=== PATIENT | male | born 1935 | race African-American/Black ===

== ENCOUNTER 2018-11-22 10:40 | Inpatient (IN) | payer MEDICARE ==
[~2018-11-22] VITALS: Ht 198.1 cm; Wt 79.8 kg
[~2018-11-22 10:40] MED LIST: GLUCOPHAGE1000 MG ORAL; LISINOPRIL20 MG ORAL; UNOBMED
[2018-11-22] MEDS ORDERED: Pantoprazole Inj IV ONE (10:45)
--- NOTE | 2018-11-22 11:05 | NUR ---
ED Nurse Note: pt was brought in by ambulance from home with c/o blood in the stool for a couple of days. pt's daughter called 911 to report for the symptom. pt is aox3, pt is complaining blood in the urine and denies pain. pt stated that he feels weak and was having a trouble standing by himself. pt noted to be wearing diaper and has scattered wound on the bilateral lower extremities. pt was hooked on the monitor with vital signs with in normal limit. pt noted to have pacemaker on the left chest. seen by stefani. will continue to monitor.
[2018-11-22 11:20] LABS: BASOPHILS % (AUTO) 1.1 % (0.0-2.0); HEMOGLOBIN 11.8 G/DL (14.2-18.0); LYMPHOCYTES % (AUTO) 10.2 % (20.0-45.0); MEAN CORPUSCULAR VOLUME 90 FL (80-99); MONOCYTES % (AUTO) 8.7 % (1.0-10.0); PLATELET COUNT 175 K/UL (150-450); RED BLOOD COUNT 3.79 M/UL (4.70-6.10); RED CELL DISTRIBUTION WIDTH 11.6 % (11.6-14.8); WHITE BLOOD COUNT 9.3 K/UL (4.8-10.8)
[2018-11-22 11:23] LABS: ANION GAP 8 mmol/L (5-15); BLOOD UREA NITROGEN 14 mg/dL (7-18); CALCIUM 9.3 MG/DL (8.5-10.1); CARBON DIOXIDE 30 MMOL/L (21-32); CHLORIDE 107 MMOL/L (98-107); POTASSIUM 3.2 MMOL/L (3.5-5.1); SODIUM 145 MMOL/L (136-145)
--- NOTE | 2018-11-22 11:25 | NUR ---
ED Nurse Note: pt went to ct with tech via [facility]
[2018-11-22 11:27] LABS: ALANINE AMINOTRANSFERASE 42 U/L (12-78); ALBUMIN 3.2 G/DL (3.4-5.0); ALBUMIN/GLOBULIN RATIO 0.8 (1.0-2.7); ALKALINE PHOSPHATASE 70 U/L (46-116); ASPARTATE AMINO TRANSFERASE 38 U/L (15-37); INR 1.1 (0.9-1.1)
[2018-11-22 11:28] LABS: APPEARANCE,URINE SLIGHTLY CLOUDY; BILIRUBIN, URINE NEGATIVE (NEGATIVE); GLUCOSE, URINE (UA) NEGATIVE (NEGATIVE); KETONES,URINE 3+ (NEGATIVE); LEUKOCYTE ESTERASE ,URINE 3+ (NEGATIVE); NITRITE,URINE POSITIVE (NEGATIVE); PH,URINE 6 (4.5-8.0); PROTEIN,URINE 3+ (NEGATIVE); UROBILINOGEN,URINE 4 MG/DL (0.0-1.0)
[2018-11-22 11:33] VITALS: BP 126/76
[2018-11-22 11:40] LABS: COLOR,URINE BROWN
--- NOTE | 2018-11-22 11:46 | NUR ---
ED Nurse Note: pt went back from ct. [employer]fu[employer] technology manager on bedside.
[2018-11-22] MEDS ORDERED: cefTRIAXone 1 GM in NS 55 ML IVPB ONE (12:00)
--- NOTE | 2018-11-22 12:14 | NUR ---
ED Nurse Note: pt sleeping in room with even regular resp. pt with abx given as ordered after urine resulted. pt with swabs obtained
[2018-11-22 12:19] VITALS: BP 159/68
--- NOTE | 2018-11-22 12:22 | Emergency Room Report ---
History of Present Illness General Chief Complaint: Gastrointestinal Bleed Source: Patient, Family Member, Medical Record, EMS Present Illness HPI Patient presents emergency department today complaining of blood in the diaper. Patient is a poor historian and was brought here by the paramedics. Apparently patient's granddaughter called for help and called the paramedics. Patient was also noted to be slightly altered. I discussed this case with patient's granddaughter who informed me the patient's primary care physician is Dr. Jaziel Lowe. Patient is uncertain if he is getting exactly all the medications that he needs to get. No other complaints are noted other than generalized weakness and confusion as well as possible blood in the urine or rectum. Symptoms noted to be moderate to severe. No other modifying factors. No other associated signs and symptoms. No other complaints were noted. Allergies: Coded Allergies: No Known Allergies (Unverified , 04/09/16) Patient History Past Medical History: DM, dementia Past Surgical History: pacemaker Social History: Denies: smoking, alcohol use, drug use Reviewed Nursing Documentation: PMH: Agreed; PSxH: Agreed Nursing Documentation-PMH Past Medical History: No History, Except For Hx Cardiac Problems: No Hx Pacemaker: Yes Hx Diabetes: Yes Hx Cancer: No Hx Gastrointestinal Problems: No Hx Neurological Problems: Yes - Difficult to arouse 04/07/16 Hx Seizures: Yes Review of Systems All Other Systems: negative except mentioned in HPI Physical Exam Vital Signs Date Time Temp Pulse Resp B/P (MAP) Pulse Ox O2 Delivery O2 Flow Rate FiO2 11/22/18 10:39 98.1 92 16 126/76 98 Room Air Sp02 EP Interpretation: reviewed, normal General Appearance: alert, mild distress, thin, Chronically Ill Head: normocephalic, atraumatic Eyes: bilateral eye normal inspection ENT: normal ENT inspection, hearing grossly normal, normal voice, dry mucus membranes Neck: normal inspection, full range of motion, supple, no bony tend Respiratory: normal inspection, lungs clear, normal breath sounds, no respiratory distress, no retraction, no wheezing Cardiovascular #1: regular rate, rhythm, no edema Gastrointestinal: normal inspection, normal bowel sounds, non tender, soft, no guarding, no hernia Rectal: normal exam, normal rectal tone, heme negative stool Genitourinary: no CVA tenderness Musculoskeletal: normal inspection, back normal, normal range of motion Neurologic: normal inspection, alert, responsive, speech normal Psychiatric: depressed affect, other - Confused Skin: normal inspection, normal color, no rash Medical Decision Making Diagnostic Impression: Primary Impression: UTI (urinary tract infection) Additional Impression: Altered mental status ER Course Patient presents emergency department today with acute altered mental status. Differential diagnoses include urinary tract infection, sepsis, GI bleeding, CVA , acute coronary syndrome, dehydration just to name a few.Given the severity of the patient's presentation I felt this is a highly complex patient. This patient required extensive workup. Patient's laboratory workup shows evidence UTI. Because patient's altered mental status head CT and abdominal CT scan was ordered. Patient's rectal exam showed brown stool no evidence of active bleeding. Patient however was slightly anemic. Even patient's worsening altered mental status felt the patient require admission to the hospital. Case was discussed with Dr. Jaziel Lowe and Dr. Hinkle. Labs Test 11/22/18 10:50 11/22/18 11:15 White Blood Count 9.3 K/UL (4.8-10.8) Red Blood Count 3.79 M/UL (4.70-6.10) Hemoglobin 11.8 G/DL (14.2-18.0) Hematocrit 34.0 % (42.0-52.0) Mean Corpuscular Volume 90 FL (80-99) Mean Corpuscular Hemoglobin 31.2 PG (27.0-31.0) Mean Corpuscular Hemoglobin Concent 34.7 G/DL (32.0-36.0) Red Cell Distribution Width 11.6 % (11.6-14.8) Platelet Count 175 K/UL (150-450) Mean Platelet Volume 6.0 FL (6.5-10.1) Neutrophils (%) (Auto) 80.0 % (45.0-75.0) Lymphocytes (%) (Auto) 10.2 % (20.0-45.0) Monocytes (%) (Auto) 8.7 % (1.0-10.0) Eosinophils (%) (Auto) 0.0 % (0.0-3.0) Basophils (%) (Auto) 1.1 % (0.0-2.0) Prothrombin Time 12.0 SEC (9.30-11.50) Prothromb Time International Ratio 1.1 (0.9-1.1) Activated Partial Thromboplast Time 32 SEC (23-33) Sodium Level 145 MMOL/L (136-145) Potassium Level 3.2 MMOL/L (3.5-5.1) Chloride Level 107 MMOL/L (98-107) Carbon Dioxide Level 30 MMOL/L (21-32) Anion Gap 8 mmol/L (5-15) Blood Urea Nitrogen 14 mg/dL (7-18) Creatinine 1.0 MG/DL (0.55-1.30) Estimat Glomerular Filtration Rate mL/min (>60) Glucose Level 63 MG/DL (74-106) Calcium Level 9.3 MG/DL (8.5-10.1) Total Bilirubin 1.0 MG/DL (0.2-1.0) Aspartate Amino Transf (AST/SGOT) 38 U/L (15-37) Alanine Aminotransferase (ALT/SGPT) 42 U/L (12-78) Alkaline Phosphatase 70 U/L (46-116) Troponin I 0.041 ng/mL (0.000-0.056) Total Protein 7.1 G/DL (6.4-8.2) Albumin 3.2 G/DL (3.4-5.0) Globulin 3.9 g/dL Albumin/Globulin Ratio 0.8 (1.0-2.7) Lipase 53 U/L (73-393) Urine Color Brown Urine Appearance Slightly cloudy Urine pH 6 (4.5-8.0) Urine Specific [place] 1.010 (1.005-1.035) Urine Protein 3+ (NEGATIVE) Urine Glucose (UA) Negative (NEGATIVE) Urine Ketones 3+ (NEGATIVE) Urine Blood 5+ (NEGATIVE) Urine Nitrite Positive (NEGATIVE) Urine Bilirubin Negative (NEGATIVE) Urine Urobilinogen 4 MG/DL (0.0-1.0) Urine Leukocyte Esterase 3+ (NEGATIVE) Urine RBC Tntc /HPF (0 - 0) Urine WBC 10-15 /HPF (0 - 0) Urine Squamous Epithelial Cells Occasional /LPF Urine Bacteria Moderate /HPF (NONE) EKG Diagnostic Results Rate: other - Paced rhythm, no PVCs, ventricular rate 62 Rhythm Strip Diag. Results EP Interpretation: yes Rate: paced rhyt Rhythm: no PVC's, no ectopy, other Chest X-Ray Diagnostic Results Chest X-Ray Diagnostic Results : Chest X-Ray Ordered: Yes # of Views/Limited/Complete: 1 View Indication: Other - Altered mental status EP Interpretation: Yes Interpretation: no consolidation, no effusion, no pneumothorax, no acute cardiopulmonary disease, other - Pacemaker on the left Impression: No acute disease Electronically Signed by: Electronically signed by Aguilar Jimenez MD Last Vital Signs Date Time Temp Pulse Resp B/P (MAP) Pulse Ox O2 Delivery O2 Flow Rate FiO2 11/22/18 11:33 98.1 92 16 126/76 98 Room Air Status: improved Disposition: ADMITTED INPATIENT Condition: Serious Referrals: NOT CHOSEN IPA/,REFERRING (PCP) Aguilar Jimenez MD Nov 22, 2018 12:22
--- NOTE | 2018-11-22 12:29 | Diagnostic Imaging Report ---
Indications: Altered mental status Technique: Spiral acquisitions obtained through the brain. Angled axial and coronal 5 x 5 mm slices were reconstructed. Total dose length product 1383.12 mGycm. CTDI vol(s) 70.38 mGy. Dose reduction achieved using automated exposure control Comparison: None. Findings: There is age-related enlargement of the ventricles and extra axial CSF spaces. There is uniform thickening of the falx and the tentorium. There is age-related enlargement of the ventricles and extra axial CSF spaces. No acute intracranial hemorrhage nor edema. No mass effect nor midline shift. There is age-related enlargement of the ventricles and extra axial CSF spaces. There is periventricular deep white matter low-attenuation, consistent with chronic ischemic change. There is old lacunar infarcts seen in the anterior limb of the left internal capsule. Visualized orbits and sinuses are unremarkable. The calvarium is intact. The mastoids are clear. Impression: Chronic and age-related changes is noted. 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
--- NOTE | 2018-11-22 12:40 | Diagnostic Imaging Report ---
Indication: Blood in stool for couple of days, pain, hematuria Technique: Spiral acquisitions obtained through the abdomen and pelvis. No oral contrast utilized, per emergency room physician request No IV contrast utilized, per emergency room physician request.. Multiplanar reconstructions were generated. Total dose length product 707.62 mGycm. CTDIvol(s) 13.21 mGy. Dose reduction achieved using automated exposure control Comparison: None Findings: Lack of enteric contrast limits assessment of the GI tract. No evidence of diverticulosis or diverticulitis. The appendix is not definitely visualized, but no findings to suggest acute appendicitis are evident. No definite small bowel distention. No free or loculated intraperitoneal gas or fluid. There is considerable interposition of large and small bowel anterior to the dome of the liver and under the right hemidiaphragm. The distal esophagus, stomach, duodenum are unremarkable. Lack of IV contrast limits assessment of the solid organs. There is moderate left hydronephrosis. There is also left hydroureter. The hydroureter extends to the bladder an into the bladder wall. The bladder wall is thickening, asymmetrically so at the posterolateral aspect. No ureteral calculi demonstrated. No intrarenal calculi. No right hydronephrosis or hydroureter demonstrated. The gallbladder contains multiple gallstones. The liver is unremarkable. The pancreas is atrophic. No biliary ductal dilatation. The spleen, adrenals are unremarkable. No retroperitoneal mass or adenopathy. There are dense prostatic calcifications Included lung bases demonstrate posterior dependent atelectatic changes and equivocal slight interstitial congestion. There is a pacemaker present. The heart size is normal. The bones demonstrate a compression fracture deformity of the L1 vertebral body. There are degenerative spondylosis changes as well as multilevel kissing spinous processes. Impression: Limited assessment of the GI tract, due to lack of enteric contrast administration Moderate left hydronephrosis and hydroureter. Hydroureter extends to the bladder, where there is asymmetric posterolateral wall thickening raises concern for neoplasm. Further evaluation with cystoscopy should be considered. There is also generalized wall thickening, possibly on the basis of cystitis or chronic bladder outlet obstruction No definite findings to suggest etiology of stated clinical history of GI bleed Cholelithiasis Basilar pulmonary atelectasis and equivocal slight interstitial congestion L1 vertebral body compression fracture deformity, age indeterminate. Consider MRI for further evaluation if this is clinically relevant Incidental findings as noted, including degenerative spondylosis, pacemaker, prostatic calcifications, interposition of colon and small bowel between the liver and the diaphragm The CT scanner at [facility] is accredited by the [employer] and the scans are performed using protocols designed to limit radiation exposure to as low as reasonably achievable to attain images of sufficient resolution adequate for diagnostic evaluation.
--- NOTE | 2018-11-22 13:05 | NUR ---
ED Nurse Note: Pt was admitted to the hospital. report given to Josi weiner.
--- NOTE | 2018-11-22 13:21 | Consultation ---
History of Present Illness General Date patient seen: Nov 22, 2018 Chief Complaint: Gastrointestinal Bleed Present Illness HPI 83 year old male with hx of DM, Dementia, pacemaker presented to ER with CC of blood in the diaper. Patient was also noted to be slightly altered. No other complaints are noted other than generalized weakness and confusion as well as possible blood in the urine or rectum. Symptoms noted to be moderate to severe. Pt was found to be anemic and admitted for further management. Pt is awake and comfortable, knows his name. but doesn't know where he is and why is he here. Allergies: Coded Allergies: No Known Allergies (Unverified , 04/09/16) Medication History Scheduled Lisinopril (Lisinopril*), 20 MG ORAL DAILY Metformin Hcl (Glucophage), 1,000 MG ORAL EVERY 12 HOURS Miscellaneous Medications Unable to Obtain Medications (Unable To Obtain Meds), (Reported) Patient History Healthcare decision maker Resuscitation status Advanced Directive on File Past Medical/Surgical History Past Medical/Surgical History: (1) HTN (hypertension) (2) Diabetes mellitus (3) Alzheimer's dementia Review of Systems All Other Systems: negative except mentioned in HPI Physical Exam General Appearance: cachetic Lines, tubes and drains: peripheral, central line HEENT: normocephalic, atraumatic Neck: non-tender, normal alignment Respiratory/Chest: chest wall non-tender, lungs clear Breasts: no masses Cardiovascular/Chest: normal rate Abdomen: normal bowel sounds, no organomegaly Genitourinary/Rectal: normal genital exam Extremities: normal range of motion Last 24 Hour Vital Signs Date Time Temp Pulse Resp B/P (MAP) Pulse Ox O2 Delivery O2 Flow Rate FiO2 11/22/18 12:19 79 14 159/68 100 Room Air 11/22/18 11:33 98.1 92 16 126/76 98 Room Air 11/22/18 11:33 92 16 Room Air 11/22/18 10:39 98.1 92 16 126/76 98 Room Air Laboratory Tests Test 11/22/18 10:50 11/22/18 11:15 White Blood Count 9.3 K/UL (4.8-10.8) Red Blood Count 3.79 M/UL (4.70-6.10) L Hemoglobin 11.8 G/DL (14.2-18.0) L Hematocrit 34.0 % (42.0-52.0) L Mean Corpuscular Volume 90 FL (80-99) Mean Corpuscular Hemoglobin 31.2 PG (27.0-31.0) H Mean Corpuscular Hemoglobin Concent 34.7 G/DL (32.0-36.0) Red Cell Distribution Width 11.6 % (11.6-14.8) Platelet Count 175 K/UL (150-450) Mean Platelet Volume 6.0 FL (6.5-10.1) L Neutrophils (%) (Auto) 80.0 % (45.0-75.0) H Lymphocytes (%) (Auto) 10.2 % (20.0-45.0) L Monocytes (%) (Auto) 8.7 % (1.0-10.0) Eosinophils (%) (Auto) 0.0 % (0.0-3.0) Basophils (%) (Auto) 1.1 % (0.0-2.0) Prothrombin Time 12.0 SEC (9.30-11.50) H Prothromb Time International Ratio 1.1 (0.9-1.1) Activated Partial Thromboplast Time 32 SEC (23-33) Sodium Level 145 MMOL/L (136-145) Potassium Level 3.2 MMOL/L (3.5-5.1) L Chloride Level 107 MMOL/L (98-107) Carbon Dioxide Level 30 MMOL/L (21-32) Anion Gap 8 mmol/L (5-15) Blood Urea Nitrogen 14 mg/dL (7-18) Creatinine 1.0 MG/DL (0.55-1.30) Estimat Glomerular Filtration Rate mL/min (>60) Glucose Level 63 MG/DL (74-106) L Calcium Level 9.3 MG/DL (8.5-10.1) Total Bilirubin 1.0 MG/DL (0.2-1.0) Aspartate Amino Transf (AST/SGOT) 38 U/L (15-37) H Alanine Aminotransferase (ALT/SGPT) 42 U/L (12-78) Alkaline Phosphatase 70 U/L (46-116) Troponin I 0.041 ng/mL (0.000-0.056) Total Protein 7.1 G/DL (6.4-8.2) Albumin 3.2 G/DL (3.4-5.0) L Globulin 3.9 g/dL Albumin/Globulin Ratio 0.8 (1.0-2.7) L Lipase 53 U/L (73-393) L Urine Color Brown Urine Appearance Slightly cloudy Urine pH 6 (4.5-8.0) Urine Specific [place] 1.010 (1.005-1.035) Urine Protein 3+ (NEGATIVE) H Urine Glucose (UA) Negative (NEGATIVE) Urine Ketones 3+ (NEGATIVE) H Urine Blood 5+ (NEGATIVE) H Urine Nitrite Positive (NEGATIVE) H Urine Bilirubin Negative (NEGATIVE) Urine Urobilinogen 4 MG/DL (0.0-1.0) H Urine Leukocyte Esterase 3+ (NEGATIVE) H Urine RBC Tntc /HPF (0 - 0) H Urine WBC 10-15 /HPF (0 - 0) H Urine Squamous Epithelial Cells Occasional /LPF Urine Bacteria Moderate /HPF (NONE) H Height (Feet): 6 Weight (Pounds): 180 Assessment/Plan Problem List: (1) Lower GI bleed ICD Codes: K92.2 - Gastrointestinal hemorrhage, unspecified SNOMED: 39329913 (2) Anemia ICD Codes: D64.9 - Anemia, unspecified SNOMED: 764429488 (3) HTN (hypertension) ICD Codes: I10 - Essential (primary) hypertension SNOMED: 48257933 (4) Alzheimer's dementia ICD Codes: G30.9 - Alzheimer's disease, unspecified; F02.80 - Dementia in other diseases classified elsewhere without behavioral disturbance SNOMED: 50590414 (5) Diabetes mellitus ICD Codes: E11.9 - Type 2 diabetes mellitus without complications SNOMED: 15383224 Assessment/Plan NPO IV fluids sliding scale GI evaluation check H/H dvt prophylaxis Og Hinkle MD Nov 22, 2018 13:21
[2018-11-22] MEDS ORDERED: Nitroglycerin Subl 0.4mg tab SL PRN (13:30)
[2018-11-22] MEDS ORDERED: Mylanta II UD 30ml ORAL PRN (13:30)
[2018-11-22] MEDS ORDERED: Dextrose 50% 25ml Syringe IV PRN (13:30)
--- NOTE | 2018-11-22 13:56 | Diagnostic Imaging Report ---
Indication: Cough Technique: One view of the chest Comparison: 04/07/2016 Findings: The right hemidiaphragm is elevated. There is some crowding of the bronchovascular markings at the right lung base. Lungs and pleural spaces are otherwise clear. Heart size is normal. Interim placement of a left chest bifocal pacemaker. Impression: No acute process. Findings as noted
--- NOTE | 2018-11-22 14:44 | GI Initial Consult Note ---
History of Present Illness General Date patient seen: Nov 22, 2018 Time patient seen: 14:37 Reason for Hospitalization: Gastrointestinal Bleed Referring physician: BRETT JOHNSON Reason for Consultation: GI BLEED Present Illness HPI Patient presents emergency department today complaining of blood in the diaper. Patient is a poor historian and was brought here by the paramedics. Apparently patient's granddaughter called for help and called the paramedics. Patient was also noted to be slightly altered. I discussed this case with patient's granddaughter who informed me the patient's primary care physician is Dr. Brett Johnson. Patient is uncertain if he is getting exactly all the medications that he needs to get. No other complaints are noted other than generalized weakness and confusion as well as possible blood in the urine or rectum. Symptoms noted to be moderate to severe. No other modifying factors. No other associated signs and symptoms. No other complaints were noted. GI consulted for reported GI bleeding. Pt seen, awake A&O4 NAD with no active s /sx of N/V or diarrhea. Patient confirmed he noted blood in his stool recently. Patient is a poor historian. Unable to recall any past medical events or surgeries. Unknown history of endoscopy or colonoscopy. Abdominal Pelvis CT reviewed, No definite findings to suggest etiology of stated clinical history of GI bleed. Labs reviewed; Hgb 11.2, K 3.2. Home Meds Active Scripts Lisinopril (LISINOPRIL*) 20 Mg Tablet, 20 MG ORAL DAILY, #30 TAB Prov:Og Hinkle MD 04/09/16 Metformin Hcl (GLUCOPHAGE) 1,000 Mg Tablet, 1000 MG ORAL EVERY 12 HOURS, #30 TAB Prov:Og Hinkle MD 04/09/16 Reported Medications Unable to Obtain Medications (UNABLE TO OBTAIN MEDS) 1 Ea 04/07/16 Med list reviewed/reconciled: Yes Allergies: Coded Allergies: No Known Allergies (Unverified , 04/09/16) Patient History Limited by: medical condition History Provided By: Medical Record Past Surgical History: other - pacemaker Social History: Denies: smoking, alcohol use, drug use, other Review of Systems All Other Systems: negative except mentioned in HPI Physical Exam Vital Signs Date Time Temp Pulse Resp B/P (MAP) Pulse Ox O2 Delivery O2 Flow Rate FiO2 11/22/18 10:39 98.1 92 16 126/76 98 Room Air Sp02 EP Interpretation: reviewed, normal Labs Laboratory Tests Test 11/22/18 10:50 11/22/18 11:15 White Blood Count 9.3 K/UL (4.8-10.8) Red Blood Count 3.79 M/UL (4.70-6.10) L Hemoglobin 11.8 G/DL (14.2-18.0) L Hematocrit 34.0 % (42.0-52.0) L Mean Corpuscular Volume 90 FL (80-99) Mean Corpuscular Hemoglobin 31.2 PG (27.0-31.0) H Mean Corpuscular Hemoglobin Concent 34.7 G/DL (32.0-36.0) Red Cell Distribution Width 11.6 % (11.6-14.8) Platelet Count 175 K/UL (150-450) Mean Platelet Volume 6.0 FL (6.5-10.1) L Neutrophils (%) (Auto) 80.0 % (45.0-75.0) H Lymphocytes (%) (Auto) 10.2 % (20.0-45.0) L Monocytes (%) (Auto) 8.7 % (1.0-10.0) Eosinophils (%) (Auto) 0.0 % (0.0-3.0) Basophils (%) (Auto) 1.1 % (0.0-2.0) Prothrombin Time 12.0 SEC (9.30-11.50) H Prothromb Time International Ratio 1.1 (0.9-1.1) Activated Partial Thromboplast Time 32 SEC (23-33) Sodium Level 145 MMOL/L (136-145) Potassium Level 3.2 MMOL/L (3.5-5.1) L Chloride Level 107 MMOL/L (98-107) Carbon Dioxide Level 30 MMOL/L (21-32) Anion Gap 8 mmol/L (5-15) Blood Urea Nitrogen 14 mg/dL (7-18) Creatinine 1.0 MG/DL (0.55-1.30) Estimat Glomerular Filtration Rate mL/min (>60) Glucose Level 63 MG/DL (74-106) L Calcium Level 9.3 MG/DL (8.5-10.1) Total Bilirubin 1.0 MG/DL (0.2-1.0) Aspartate Amino Transf (AST/SGOT) 38 U/L (15-37) H Alanine Aminotransferase (ALT/SGPT) 42 U/L (12-78) Alkaline Phosphatase 70 U/L (46-116) Troponin I 0.041 ng/mL (0.000-0.056) Total Protein 7.1 G/DL (6.4-8.2) Albumin 3.2 G/DL (3.4-5.0) L Globulin 3.9 g/dL Albumin/Globulin Ratio 0.8 (1.0-2.7) L Lipase 53 U/L (73-393) L Urine Color Brown Urine Appearance Slightly cloudy Urine pH 6 (4.5-8.0) Urine Specific [place] 1.010 (1.005-1.035) Urine Protein 3+ (NEGATIVE) H Urine Glucose (UA) Negative (NEGATIVE) Urine Ketones 3+ (NEGATIVE) H Urine Blood 5+ (NEGATIVE) H Urine Nitrite Positive (NEGATIVE) H Urine Bilirubin Negative (NEGATIVE) Urine Urobilinogen 4 MG/DL (0.0-1.0) H Urine Leukocyte Esterase 3+ (NEGATIVE) H Urine RBC Tntc /HPF (0 - 0) H Urine WBC 10-15 /HPF (0 - 0) H Urine Squamous Epithelial Cells Occasional /LPF Urine Bacteria Moderate /HPF (NONE) H General Appearance: well appearing, no apparent distress, alert Head: normocephalic EENT: PERRL/EOMI, normal ENT inspection Neck: supple Respiratory: normal breath sounds, no respiratory distress Cardiovascular: normal rate Gastrointestinal: normal inspection, non tender, soft, normal bowel sounds, non -distended Rectal: deferred Genitourinary: deferred Musculoskeletal: normal inspection, back normal, other - upper extremity tremors Neurologic: alert, responsive Psychiatric: judgement/insight normal Skin: normal inspection, normal color, no rash, warm/dry, palpation normal, well hydrated Lymphatic: normal inspection, no adenopathy Current Medications Current Medications Medications (Trade) Dose Ordered Sig/Levi Route PRN Reason Start Time Stop Time Status Last Admin Dose Admin Acetaminophen (Tylenol) 650 mg Q4H PRN ORAL fever 11/22/18 13:30 12/22/18 13:29 Al Hydroxide/Mg Hydroxide (Mylanta II) 30 ml Q6H PRN ORAL dyspepsia 11/22/18 13:30 12/22/18 13:29 Dextrose (Dextrose 50%) 25 ml Q30M PRN IV Hypoglycemia 11/22/18 13:30 12/22/18 13:23 Dextrose (Dextrose 50%) 50 ml Q30M PRN IV hypoglycemia 11/22/18 13:30 12/22/18 13:29 Dextrose/Sodium Chloride 1,000 ml @ 75 mls/hr [id number] IV 11/22/18 13:16 12/22/18 13:15 Diphenhydramine HCl (Benadryl) 25 mg Q6H PRN ORAL Itching/Pruritis 11/22/18 13:30 12/22/18 13:29 Insulin Aspart (NovoLOG) BEFORE MEALS AND HS SUBQ 11/22/18 16:30 12/22/18 16:29 Lisinopril (Prinivil) 20 mg DAILY ORAL 11/23/18 09:00 12/23/18 08:59 Morphine Sulfate (Morphine Sulfate) 2 mg Q4H PRN IVP severe Pain (Pain Scale 7-10) 11/22/18 13:30 11/29/18 13:29 Nitroglycerin (Ntg) 0.4 mg Q5M X 3 DOSES PRN SL Prn Chest Pain 11/22/18 13:30 12/22/18 13:29 Ondansetron HCl (Zofran) 4 mg Q6H PRN IVP Nausea & Vomiting 11/22/18 13:30 12/22/18 13:29 Polyethylene Glycol (Miralax) 17 gm HSPRN PRN ORAL Constipation 11/22/18 13:30 12/22/18 13:29 Temazepam (Restoril) 15 mg HSPRN PRN ORAL Insomnia 11/22/18 13:30 11/29/18 13:29 GI: Plan Problems: (1) Lower GI bleed (2) Anemia (3) Bleeding hemorrhoid Plan EGD/colonoscopy to be scheduled for tomorrow. - CLD now, NPO @ [place]. - hold all blood thinners tonight. anemia work up OB stool r/o GI bleed monitor H&H, prn transfusions bowel regime ppi fu labs will follow with additional recommendations post procedure. Discussed with Dr. Hernandez. Thank you for this patient referral, we will follow. The patient was seen and examined at bedside and all new and available data was reviewed in the patients chart. I agree with the above findings, impression and plan. (Patient seen earlier today. Signature stamp does not reflect patient encounter time.). - MD Silvia [facility] Nov 22, 2018 14:44
[2018-11-22 16:00] VITALS: BP 182/96
[2018-11-22] MEDS ORDERED: Bisacodyl EC 5mg tab ORAL SCH (16:00)
[2018-11-22] MEDS ORDERED: Polyethylene Glycol 238gm bottle ORAL SCH (16:00)
[2018-11-22] MEDS ORDERED: Magnesium Citrate Liq Btl ORAL SCH (16:00)
--- NOTE | 2018-11-22 16:00 | NUR ---
NURSE NOTES: Pt BP elevated: 182/96. RN left message for Dr. Hinkle. Charge nurse made aware.
--- NOTE | 2018-11-22 16:11 | NUR ---
NURSE NOTES: RN received pt from ED in stable condition. No acute distress or SOB. Pt A&O x 2, unable to answer history / assessment questions; speech delayed. Skin scaly and dry on lower legs, bilaterally. Skin tear noted left elbow and right shoulder, scratch on pt chest. Pt oriented to room. Bed in low, locked position. Call light within reach. Orders from Manan received. Will continue plan of care. Addendum: 11/22/18 at 1757 by AMARJIT RODRIGUEZ RN Time pt received 1331.
[2018-11-22] MEDS: NovoLOG Insulin Flexpen SUBQ SCH ×2 (16:30→21:00)
[2018-11-22] MEDS: D5 1/2NS 1,000 ML IV SCH (16:30)
--- NOTE | 2018-11-22 16:45 | NUR ---
NURSE NOTES: Pt BS 59 - gave Dextrose per protocol and notified Dr. Lowe.
[2018-11-22] MEDS: Miralax 17gm pkt ORAL PRN (17:09)
--- NOTE | 2018-11-22 17:34 | History & Physical ---
History and Physical History & Physicial Jaziel Lowe MD Nov 22, 2018 17:34
[2018-11-22] MEDS: Irbesartan 150mg tablet ORAL SCH (18:07)
--- NOTE | 2018-11-22 18:51 | NUR ---
CASE MANAGEMENT: REVIEW 83/M BIBA FROM HOME CC: BLOODY STOOL X2DAYS IS: AMS . UTI . LOWER GI BLEED . ANEMIA . BLEEDING HEMORRHOID T 99.0 HR 79 RR 14 BP 182/96 SAT 98% ROOM AIR H/H 11.8/34.0 GLUCOSE 63 AST 38 IS: PEPCID IV X1 PROTONIX IV X1 CEFTRIAXONE IV X1 PATIENT ADMITTED TO MED/SURG UNIT 11/22/2018 DCP: PATIENT IS FROM HOME
--- NOTE | 2018-11-22 19:29 | NUR ---
HAND-OFF: Report given to DONELL Palacios.
[2018-11-22 20:00] VITALS: BP 163/79
--- NOTE | 2018-11-22 20:00 | NUR ---
NURSE NOTES: Pt is in bed, confused and delusional. Pt is attempting to get out of bed. Fall precaution implemented. Pt is reoriented. DHIRAJ Griffin is by bedside to observe pt. Bed locked low in position,side rails up and call light within reach. Bed alarm on. Pt is gen pain medication as ordered PRN. D5 1/2 NS running at 75ml/hr. Blood sugar 146. Pt was able to take PM oral medication slowly with HOB elevated. BP 181/7, hydralazine given Po as ordered PRN.
[2018-11-22] MEDS: Tamsulosin 0.4mg cap ORAL SCH (20:39)
[2018-11-22] MEDS: HydrALAZINE 50mg tab ORAL PRN (20:40)
[2018-11-22] MEDS: Morphine Sulfate 2mg/ml Inj(IV/IM USE ONLY) IVP PRN (20:41)
--- NOTE | 2018-11-22 21:00 | NUR ---
NURSE NOTES: Unable to collect stool sample for stool OB, NO BM. No rectal bleeding noted. Pt has hematuria, DR. Allen came to see patient.
--- NOTE | 2018-11-22 21:15 | Consultation ---
DATE OF CONSULTATION: 11/22/2018 CONSULTING PHYSICIAN: Macho Allen M.D. REFERRING PHYSICIAN: Jaziel Lowe M.D. REASON FOR CONSULTATION: For evaluation of hydronephrosis. HISTORY OF PRESENT ILLNESS: This is an 83-year-old gentleman. He was brought to the emergency room because of probable GI bleed. There was some blood noted in the patient's diaper. He has a history of BPH and mild dementia and urinary incontinence. His UA was consistent with probable urinary tract infection and on CT scan he was noted to have left-sided hydronephrosis and Urology evaluation is requested. At this time, the patient appears comfortable. He denies any flank pain. He has been incontinent. There was a condom catheter. His urine has been wes colored. Most of the history was obtained from the chart. PAST MEDICAL HISTORY: Significant for above, again history of diabetes, dementia, coronary artery disease. PAST SURGICAL HISTORY: He has had a pacemaker placement. Other surgeries are unknown. MEDICATIONS: Current medications here in the hospital, the patient is on K-Dur, Avapro, Apresoline, insulin, magnesium, MiraLAX, morphine, Restoril, Benadryl, Mylanta. He did receive a dose of Rocephin. ALLERGIES: No known drug allergies. SOCIAL HISTORY: Smoking history is unknown. REVIEW OF SYSTEMS: Difficult to obtain. FAMILY HISTORY: Unknown. PHYSICAL EXAMINATION: GENERAL: Elderly male, slightly confused, looks comfortable. VITAL SIGNS: Temperature is 98, blood pressure is 182/96, pulse is 80, respirations 18. HEENT: Normocephalic. NECK: Supple. ABDOMEN: Soft. : There is a condom catheter in place. Urine draining is lightly blood tinged wes. EXTREMITIES: No clubbing or cyanosis. LABORATORY DATA: UA on admission showed 3+ protein, too numerous to count rbc's, 10 to 15 wbcs, moderate bacteria. White count is 9.3, hemoglobin 11.8, platelets 175. BUN is 14, creatinine 1.0, potassium 3.2. PT is 12.2, INR 1.1, PTT of 32. There are no culture results available at this time. DIAGNOSTIC IMAGING STUDIES: The patient had a CT scan of the abdomen and pelvis, this was a noncontrast study. There was mention of moderate left-sided hydronephrosis and hydroureter, which extends to the level of the bladder where there is asymmetric thickening. There was no mention of stones. There was again bladder wall thickening, possibly secondary to cystitis, chronic bladder outlet obstruction. IMPRESSION: 1. Left hydronephrosis. 2. Hematuria. 3. Pyuria. 4. Proteinuria. 5. Benign prostatic hypertrophy. 6. Incontinence. 7. Neurogenic bladder. 8. Cholecystitis. PLAN AND DISCUSSION: Again, the patient does have left-sided hydronephrosis, which may be chronic. He is not having any pain at this point. Renal function is stable. He does have UA findings consistent with hematuria and probable UTI. At this time, the patient does not look toxic. I would recommend antibiotics and follow up of cultures. I will also add Flomax 0.4 mg daily as well as finasteride 5 mg daily. The patient will be monitored clinically and at some point, he will need to have cystoscopy with possible retrograde study once he is medically optimized. Any other recommendations will be forthcoming. Thank you, Dr. Lowe, for asking me to see this patient in consultation. Macho Allen M.D. DR: NOE JOB#: [id number] CC:
--- NOTE | 2018-11-22 22:30 | NUR ---
NURSE NOTES: Pt is in bed, asleep. No acute distress noted. BP 155/82 after hydralazine. Pt is confused thus unable to sign consent for EGD and colonoscopy, Pt's grand daughter Celestina was called and a message left to return call. Last shift RN was unable to give bowel prep to patient, pt has mild dysphagia. OSCAR patricio notified, order received for ST Evaluation. Order entered in the EMAR. Pt will be monitored.
--- NOTE | 2018-11-22 22:30 | History and Physical Report ---
DATE OF ADMISSION: 11/22/2018 CHIEF COMPLAINT: Rectal bleeding. 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 The patient was noted to have the blood in the diaper. He is a poor historian and the patient was slightly altered. Granddaughter contacted my office and subsequently , the patient was advised to come to the emergency room. Shortly after initial evaluation in the emergency room, the patient was admitted to the hospital with GI bleed and anemia. PAST MEDICAL/PAST SURGICAL HISTORY: As above. History of dementia, diabetes type 2, sick sinus syndrome status post pacemaker, and hypertension. MEDICATIONS AT HOME: Please refer to medication reconciliation. ALLERGIES: No known drug allergies. SOCIAL HISTORY: No smoking, alcohol, or drugs at this time. FAMILY HISTORY: Noncontributory. SYSTEM REVIEW: Mostly as above. Denies any dysuria or frequency. Denies any fall or head trauma. Denies any loss of consciousness. Denies any fever or chills. The patient's history is very limited secondary to the patient's mental status. History is mostly taken from the ER chart. PHYSICAL EXAMINATION: VITAL SIGNS: On admission, temperature 98.1, pulse of 92, respirations 16, and blood pressure 126/76. GENERAL: The patient is awake, alert, responsive, very pleasant, but forgetful. HEAD AND NECK: Pupils are reactive to light. Extraocular movements intact. Neck was supple. No JVD. LUNGS: Good air entry. No wheezing or rales. Left side of the chest has a pacemaker. ABDOMEN: Soft, nondistended, and nontender. Positive bowel sounds. EXTREMITIES: No cyanosis, clubbing, or edema. 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 Motor is 5/5 in all extremities. Gait was not assessed due to the patient's status. RECTAL/GENITOURINARY: Refused and deferred. LABORATORY DATA: Laboratory on admission is significant for WBC of 9.3, hemoglobin 11, hematocrit 34, and platelet is 175,000. Sodium 145, potassium 3.2, chloride 107, bicarbonate 30, BUN 14, creatinine 1.0, and glucose 93. Total bilirubin of 1.0. Troponin 0.041. PT 12, INR 1.1, and PTT of 32. Urinalysis, +3 ketones, +5 blood, positive nitrite, +3 leukocyte, rbc tented, and 10 to 15 wbc. The patient had a CT of the abdomen and pelvis done, noted limited assessment of the gastrointestinal tract due to the lack of enteric contrast administration. Moderate left hydronephrosis with hydroureter extends to the bladder where there is asymmetry. Post lateral wall thickening rises concern about neoplasm. Further evaluation with cystoscopy could be considered. The patient has cholelithiasis and bibasilar pulmonary atelectasis. L1 vertebral body compression fracture deformity. Incidental finding noted that include degenerative spondylolysis, pacemaker, prostate calcification, and interposition of the colon, small bowel, liver, and diaphragm. CT of the head, chronic and age-related changes is noted. Negative for acute intracranial bleeding affects. Chest x-ray, no acute process. ASSESSMENT: 1. Gastrointestinal bleed. 2. Anemia possible due to acute blood loss. 3. Hypokalemia. 4. Acute urinary tract infection. 5. Moderate left hydronephrosis with hydroureter. 6. Cardiac arrhythmia status post pacemaker. 7. Diabetes type 2. 8. Hypertension. PLAN: 1. Admit the patient to medical floor. 2. We will follow up with the laboratory. 3. Clear liquid diet. 4. Gastrointestinal consultation with Dr. Hernandez. 5. Code status is Full Code at this time. 6. We will follow up with the Urology consultation, Dr. Allen. 7. The patient is scheduled for esophagogastroduodenoscopy and colonoscopy. 8. We will follow up with urine culture and Cardiology consultation with Dr. Nj Valenzuela. Jaziel Lowe M.D. DR: RUBEN JOB#: [id number] CC:
[2018-11-23] VITALS (8 sets, daily range): BP systolic 135–168; BP diastolic 57–81
--- NOTE | 2018-11-23 03:00 | NUR ---
NURSE NOTES: Pt is in bed, asleep. No acute distress noted. Fall precaution in place. Pt was turned and cleaned. Pt will be monitored. Pt is NPO now.
[2018-11-23] MEDS: D5 1/2NS 1,000 ML IV SCH ×2 (05:16→15:56)
[2018-11-23] MEDS: NovoLOG Insulin Flexpen SUBQ SCH ×4 (05:51→21:42)
[2018-11-23 05:55] LABS: BASOPHILS % (AUTO) 0.8 % (0.0-2.0); HEMATOCRIT 31.5 % (42.0-52.0); HEMOGLOBIN 10.8 G/DL (14.2-18.0); LYMPHOCYTES % (AUTO) 12.8 % (20.0-45.0); MEAN CORPUSCULAR VOLUME 91 FL (80-99); MONOCYTES % (AUTO) 8.6 % (1.0-10.0); NEUTROPHILS % (AUTO) 77.8 % (45.0-75.0); PLATELET COUNT 144 K/UL (150-450); RED BLOOD COUNT 3.46 M/UL (4.70-6.10); RED CELL DISTRIBUTION WIDTH 11.9 % (11.6-14.8); WHITE BLOOD COUNT 8.2 K/UL (4.8-10.8)
[2018-11-23 05:58] LABS: INR 1.1 (0.9-1.1)
[2018-11-23 06:16] LABS: % IRON SATURATION 16 % (15-50); IRON 32 ug/dL (50-175); TOTAL IRON BINDING CAPACITY 197 ug/dL (250-450)
[2018-11-23 06:25] LABS: ALANINE AMINOTRANSFERASE 35 U/L (12-78); ALBUMIN 2.9 G/DL (3.4-5.0); ALBUMIN/GLOBULIN RATIO 0.8 (1.0-2.7); ALKALINE PHOSPHATASE 73 U/L (46-116); AMYLASE 35 U/L (25-115); ANION GAP 10 mmol/L (5-15); ASPARTATE AMINO TRANSFERASE 28 U/L (15-37); BILIRUBIN,TOTAL 1.1 MG/DL (0.2-1.0); BLOOD UREA NITROGEN 9 mg/dL (7-18); CALCIUM 8.9 MG/DL (8.5-10.1); CARBON DIOXIDE 28 MMOL/L (21-32); CHLORIDE 106 MMOL/L (98-107); FERRITIN 75 NG/ML (8-388); POTASSIUM 3.3 MMOL/L (3.5-5.1); SODIUM 144 MMOL/L (136-145)
[2018-11-23 06:33] LABS: BILIRUBIN,DIRECT 0.3 MG/DL (0.0-0.3)
--- NOTE | 2018-11-23 06:42 | Anethesia Preoperative Eval ---
Anesthesia Pre-op PMH/ROS General Date of Evaluation: Nov 23, 2018 Time of Evaluation: 06:37 Anesthesiologist: jaspal ASA Score: ASA 4 Mallampati Score Class I : Soft palate, uvula, fauces, pillars visible Class II: Soft palate, uvula, fauces visible Class III: Soft palate, base of uvula visible Class IV: Only hard plate visible Surgeon: elmer Diagnosis: gi bleed, anemia Surgical Procedure: egd/colonoscopy Anesthesia History: none Social History: smoking - nonsmoker Family History: no anesthesia problems Allergies: Coded Allergies: No Known Allergies (Unverified , 04/09/16) Medications: see eMAR Patient NPO?: Yes Past Medical History Cardiovascular: Reports: HTN, arrhythmia, other - pacemaker Gastrointestinal/Genitourinary: Reports: other - lower gi bleed, hemorrhoids, uti 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: Reports: other - acute metabolic encephalopathy, seizure, altered level of consciousness Endocrine: Reports: DM, other - hypoglycemia Hematology/Immune: Reports: anemia Anesthesia Pre-op Phys. Exam Physician Exam Last Vital Signs Date Time Temp Pulse Resp B/P (MAP) Pulse Ox O2 Delivery O2 Flow Rate FiO2 11/23/18 04:00 97.2 85 17 144/77 (99) 94 11/22/18 21:00 Room Air Anesthesia Pre-op A/P Labs Hematology Test 11/22/18 10:50 11/23/18 05:05 White Blood Count 9.3 K/UL (4.8-10.8) 8.2 K/UL (4.8-10.8) Red Blood Count 3.79 M/UL (4.70-6.10) L 3.46 M/UL (4.70-6.10) L Hemoglobin 11.8 G/DL (14.2-18.0) L 10.8 G/DL (14.2-18.0) L Hematocrit 34.0 % (42.0-52.0) L 31.5 % (42.0-52.0) L Mean Corpuscular Volume 90 FL (80-99) 91 FL (80-99) Mean Corpuscular Hemoglobin 31.2 PG (27.0-31.0) H 31.1 PG (27.0-31.0) H Mean Corpuscular Hemoglobin Concent 34.7 G/DL (32.0-36.0) 34.2 G/DL (32.0-36.0) Red Cell Distribution Width 11.6 % (11.6-14.8) 11.9 % (11.6-14.8) Platelet Count 175 K/UL (150-450) 144 K/UL (150-450) L Mean Platelet Volume 6.0 FL (6.5-10.1) L 6.5 FL (6.5-10.1) Neutrophils (%) (Auto) 80.0 % (45.0-75.0) H 77.8 % (45.0-75.0) H Lymphocytes (%) (Auto) 10.2 % (20.0-45.0) L 12.8 % (20.0-45.0) L Monocytes (%) (Auto) 8.7 % (1.0-10.0) 8.6 % (1.0-10.0) Eosinophils (%) (Auto) 0.0 % (0.0-3.0) 0.0 % (0.0-3.0) Basophils (%) (Auto) 1.1 % (0.0-2.0) 0.8 % (0.0-2.0) Reticulocyte Count Pending Coagulation Test 11/22/18 10:50 11/23/18 05:05 Prothrombin Time 12.0 SEC (9.30-11.50) H Pending Prothromb Time International Ratio 1.1 (0.9-1.1) Pending Activated Partial Thromboplast Time 32 SEC (23-33) Pending Chemistry Test 11/22/18 10:50 11/23/18 05:05 Sodium Level 145 MMOL/L (136-145) 144 MMOL/L (136-145) Potassium Level 3.2 MMOL/L (3.5-5.1) L 3.3 MMOL/L (3.5-5.1) L Chloride Level 107 MMOL/L (98-107) 106 MMOL/L (98-107) Carbon Dioxide Level 30 MMOL/L (21-32) 28 MMOL/L (21-32) Anion Gap 8 mmol/L (5-15) 10 mmol/L (5-15) Blood Urea Nitrogen 14 mg/dL (7-18) 9 mg/dL (7-18) Creatinine 1.0 MG/DL (0.55-1.30) 1.0 MG/DL (0.55-1.30) Estimat Glomerular Filtration Rate mL/min (>60) mL/min (>60) Glucose Level 63 MG/DL (74-106) L 165 MG/DL (74-106) #H Calcium Level 9.3 MG/DL (8.5-10.1) 8.9 MG/DL (8.5-10.1) Total Bilirubin 1.0 MG/DL (0.2-1.0) 1.1 MG/DL (0.2-1.0) H Aspartate Amino Transf (AST/SGOT) 38 U/L (15-37) H 28 U/L (15-37) Alanine Aminotransferase (ALT/SGPT) 42 U/L (12-78) 35 U/L (12-78) Alkaline Phosphatase 70 U/L (46-116) 73 U/L (46-116) Troponin I 0.041 ng/mL (0.000-0.056) Total Protein 7.1 G/DL (6.4-8.2) 6.5 G/DL (6.4-8.2) Albumin 3.2 G/DL (3.4-5.0) L 2.9 G/DL (3.4-5.0) L Globulin 3.9 g/dL 3.6 g/dL Albumin/Globulin Ratio 0.8 (1.0-2.7) L 0.8 (1.0-2.7) L Lipase 53 U/L (73-393) L 63 U/L (73-393) L Iron Level 32 ug/dL (50-175) L Total Iron Binding Capacity 197 ug/dL (250-450) L Percent Iron Saturation 16 % (15-50) Unsaturated Iron Binding 165 ug/dL (112-346) Ferritin 75 NG/ML (8-388) Direct Bilirubin 0.3 MG/DL (0.0-0.3) Amylase Level 35 U/L (25-115) Carcinoembryonic Antigen Pending Vitamin B12 Level Pending Folate Pending Thyroid Stimulating Hormone (TSH) < 0.010 uiU/mL (0.358-3.740) Free Thyroxine 2.00 NG/DL (0.76-1.46) H Risk Assessment & Plan Assessment: [email or web address] Plan: Lu Avalos MD Nov 23, 2018 06:42
[2018-11-23] MEDS ORDERED: Midazolam 2mg/2ml Inj IVP PRN (06:45)
[2018-11-23] MEDS ORDERED: DiphenhydrAMINE 50mg/ml Inj IVP PRN (06:45)
[2018-11-23] MEDS ORDERED: Atropine Inj 1mg/10ml Syr IV PRN (06:45)
[2018-11-23] MEDS ORDERED: fentaNYL 100 mcg/2 mL IV PRN (06:45)
--- NOTE | 2018-11-23 07:05 | NUR ---
HAND-OFF: Report given to DONELL Alexander.Pt is in bed, awake. No acute distress noted. Informed Afsoon that pt is scheduled for Colonoscopy and EGD but Pt unable to sign consent. Family is called and message left to call back. OSCAR Christensen was informed.
--- NOTE | 2018-11-23 07:31 | NUR ---
NURSE NOTES: Received pt from RN AKUA. Pt is confused and orient x2.Pt is in RA, NO SOB or acute respiratory distress noted. pt has Robertson cath in place is working well. pt has intact iv access RFA 20G is running well. pt is still NPO. Called family member for consent form but no body answer, left massage waiting to call back. all needs attended, bed is locked and is in the lowest position, call light within easy reach. will continue to monitor.
--- NOTE | 2018-11-23 07:41 | NUR ---
NURSE NOTES: from GI lab called and stated Dr loo cancelled procedure. will continue to monitor.
--- NOTE | 2018-11-23 08:52 | NUR ---
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
[2018-11-23] MEDS ORDERED: Lisinopril 20mg tab ORAL SCH (09:00)
[2018-11-23] MEDS: HydrALAZINE 50mg tab ORAL PRN (09:29)
[2018-11-23] MEDS: Irbesartan 150mg tablet ORAL SCH (09:29)
--- NOTE | 2018-11-23 10:02 | Urology Progress Note ---
Assessment/Plan Assessment: 1. Left hydronephrosis. 2. Hematuria. 3. Pyuria. 4. Proteinuria. 5. Benign prostatic hypertrophy. 6. Incontinence. 7. Neurogenic bladder. 8. Cystitis. Plan: monitor clinically will need cysto at some point will consider during this admission case d/w primary service message left for family cardiology matt and d/w Dr. Nicolas truong as ordered f/u on urine cx flomax and proscar Subjective Allergies: Coded Allergies: No Known Allergies (Unverified , 04/09/16) Subjective all noted, a bit confused Objective Last 24 Hour Vital Signs Date Time Temp Pulse Resp B/P (MAP) Pulse Ox O2 Delivery O2 Flow Rate FiO2 11/23/18 09:29 168/80 11/23/18 09:29 168/80 11/23/18 08:00 97.0 76 16 168/80 (109) 99 11/23/18 04:00 97.2 85 17 144/77 (99) 94 11/23/18 00:00 97.9 81 18 135/57 (83) 98 11/22/18 21:00 Room Air 11/22/18 20:40 181/79 11/22/18 20:00 98.0 86 20 163/79 (107) 100 11/22/18 18:07 182/96 11/22/18 16:00 98.0 80 18 182/96 (124) 98 11/22/18 13:33 Room Air 11/22/18 13:31 Room Air 11/22/18 13:05 99.0 79 13 146/53 98 Room Air 11/22/18 12:19 79 14 159/68 100 Room Air 11/22/18 11:33 98.1 92 16 126/76 98 Room Air 11/22/18 11:33 92 16 Room Air 11/22/18 10:39 98.1 92 16 126/76 98 Room Air Intake and Output 11/22/18 11/23/18 19:00 07:00 Intake Total 425 ml 825 ml Output Total 400 ml Balance 425 ml 425 ml Intake Oral 240 ml IV Total 185 ml 825 ml Output Urine Total 400 ml # Voids 4 Microbiology Date/Time Source Procedure Growth Status 11/22/18 11:15 Urine,Clean Catch Urine Culture - Preliminary NO GROWTH Resulted Current Medications Medications (Trade) Dose Ordered Sig/Levi Route PRN Reason Start Time Stop Time Status Last Admin Dose Admin Acetaminophen (Tylenol) 650 mg Q4H PRN ORAL fever 11/22/18 13:30 12/22/18 13:29 Al Hydroxide/Mg Hydroxide (Mylanta II) 30 ml Q6H PRN ORAL dyspepsia 11/22/18 13:30 12/22/18 13:29 Al Hydroxide/Mg Hydroxide (Mylanta) 15 ml Q1H PRN ORAL gi upset 11/23/18 06:45 11/23/18 18:00 Atropine Sulfate (Atropine) 0.5 mg Q5M PRN IV bpm less than 45 11/23/18 06:45 11/23/18 18:00 Ceftriaxone Sodium 1 gm/ Dextrose 55 ml @ 110 mls/hr Q24H IVPB 11/23/18 12:00 11/30/18 11:59 Dextrose (Dextrose 50%) 25 ml Q30M PRN IV Hypoglycemia 11/22/18 13:30 12/22/18 13:23 11/22/18 17:21 Dextrose (Dextrose 50%) 50 ml Q30M PRN IV hypoglycemia 11/22/18 13:30 12/22/18 13:29 Dextrose/Sodium Chloride 1,000 ml @ 75 mls/hr [id number] IV 11/22/18 13:16 12/22/18 13:15 11/23/18 05:16 Diphenhydramine HCl (Benadryl) 25 mg Q15M PRN IVP Itching 11/23/18 06:45 11/23/18 18:00 Diphenhydramine HCl (Benadryl) 25 mg Q6H PRN ORAL Itching/Pruritis 11/22/18 13:30 12/22/18 13:29 Fentanyl Citrate (Sublimaze 100 mcg/2 mL) 25 mcg Q10M PRN IV Moderate Pain (Pain Scale 4-6) 11/23/18 06:45 11/23/18 18:00 Finasteride (Proscar) 5 mg DAILY ORAL 11/22/18 19:45 12/22/18 19:44 11/23/18 09:29 Hydralazine HCl (Apresoline) 5 mg Q30M PRN IV SBP>160 OR___/DBP>90 OR___ 11/23/18 06:45 11/23/18 18:00 Hydralazine HCl (Apresoline) 50 mg Q6H PRN ORAL SBP > 160 11/22/18 17:30 12/22/18 17:29 11/23/18 09:29 Insulin Aspart (NovoLOG) BEFORE MEALS AND HS SUBQ 11/22/18 16:30 12/22/18 16:29 11/23/18 05:51 Irbesartan (Avapro) 150 mg DAILY ORAL 11/22/18 17:30 12/22/18 17:29 11/23/18 09:29 Midazolam HCl (Versed 2mg/2ml vial) 1 mg Q15M PRN IVP For Anxiety 11/23/18 06:45 11/23/18 18:00 Morphine Sulfate (Morphine Sulfate) 2 mg Q4H PRN IVP severe Pain (Pain Scale 7-10) 11/22/18 13:30 11/29/18 13:29 11/22/18 20:41 Nitroglycerin (Ntg) 0.4 mg Q5M X 3 DOSES PRN SL Prn Chest Pain 11/22/18 13:30 12/22/18 13:29 Ondansetron HCl (Zofran) 4 mg Q1H PRN IVP Nausea & Vomiting 11/23/18 06:45 11/23/18 18:00 Ondansetron HCl (Zofran) 4 mg Q6H PRN IVP Nausea & Vomiting 11/22/18 13:30 12/22/18 13:29 Polyethylene Glycol (Miralax) 17 gm HSPRN PRN ORAL Constipation 11/22/18 13:30 12/22/18 13:29 Tamsulosin HCl (Flomax) 0.4 mg BEDTIME ORAL 11/22/18 21:00 12/22/18 20:59 11/22/18 20:39 Temazepam (Restoril) 15 mg HSPRN PRN ORAL Insomnia 11/22/18 13:30 11/29/18 13:29 11/22/18 20:40 Laboratory Tests 11/22/18 10:50: White Blood Count 9.3, Red Blood Count 3.79L, Hemoglobin 11.8L, Hematocrit 34.0L , Mean Corpuscular Volume 90, Mean Corpuscular Hemoglobin 31.2H, Mean Corpuscular Hemoglobin Concent 34.7, Red Cell Distribution Width 11.6, Platelet Count 175, Mean Platelet Volume 6.0L, Neutrophils (%) (Auto) 80.0H, Lymphocytes (%) (Auto) 10.2L, Monocytes (%) (Auto) 8.7, Eosinophils (%) (Auto) 0.0, Basophils (%) (Auto) 1.1, Prothrombin Time 12.0H, Prothromb Time International Ratio 1.1, Activated Partial Thromboplast Time 32, Sodium Level 145, Potassium Level 3.2L, Chloride Level 107, Carbon Dioxide Level 30, Anion Gap 8, Blood Urea Nitrogen 14, Creatinine 1.0, Estimat Glomerular Filtration Rate , Glucose Level 63L, Calcium Level 9.3, Total Bilirubin 1.0, Aspartate Amino Transf (AST/ SGOT) 38H, Alanine Aminotransferase (ALT/SGPT) 42, Alkaline Phosphatase 70, Troponin I 0.041, Total Protein 7.1, Albumin 3.2L, Globulin 3.9, Albumin/ Globulin Ratio 0.8L, Lipase 53L 11/22/18 11:15: Urine Color Brown, Urine Appearance Slightly cloudy, Urine pH 6, Urine Specific [place] 1.010, Urine Protein 3+H, Urine Glucose (UA) Negative, Urine Ketones 3+H , Urine Blood 5+H, Urine Nitrite PositiveH, Urine Bilirubin Negative, Urine Urobilinogen 4H, Urine Leukocyte Esterase 3+H, Urine RBC TntcH, Urine WBC 10-15H , Urine Squamous Epithelial Cells Occasional, Urine Bacteria ModerateH 11/23/18 05:05: White Blood Count 8.2, Red Blood Count 3.46L, Hemoglobin 10.8L, Hematocrit 31.5L , Mean Corpuscular Volume 91, Mean Corpuscular Hemoglobin 31.1H, Mean Corpuscular Hemoglobin Concent 34.2, Red Cell Distribution Width 11.9, Platelet Count 144L, Mean Platelet Volume 6.5, Neutrophils (%) (Auto) 77.8H, Lymphocytes (%) (Auto) 12.8L, Monocytes (%) (Auto) 8.6, Eosinophils (%) (Auto) 0.0, Basophils (%) (Auto) 0.8, Prothrombin Time 11.4, Prothromb Time International Ratio 1.1, Activated Partial Thromboplast Time 33, Sodium Level 144, Potassium Level 3.3L, Chloride Level 106, Carbon Dioxide Level 28, Anion Gap 10, Blood Urea Nitrogen 9, Creatinine 1.0, Estimat Glomerular Filtration Rate , Glucose Level 165#H, Calcium Level 8.9, Total Bilirubin 1.1H, Aspartate Amino Transf ( AST/SGOT) 28, Alanine Aminotransferase (ALT/SGPT) 35, Alkaline Phosphatase 73, Total Protein 6.5, Albumin 2.9L, Globulin 3.6, Albumin/Globulin Ratio 0.8L, Lipase 63L, Reticulocyte Count 1.3, Iron Level 32L, Total Iron Binding Capacity 197L, Percent Iron Saturation 16, Unsaturated Iron Binding 165, Ferritin 75, Direct Bilirubin 0.3, Amylase Level 35, Carcinoembryonic Antigen [Pending], Vitamin B12 Level 1500H, Folate 17.5, Thyroid Stimulating Hormone (TSH) < 0.010L , Free Thyroxine 2.00H Height (Feet): 6 Height (Inches): 0.00 Weight (Pounds): 180 Objective exam stable condom cath, urine slightly blood-tinged, wes Bamshad,Macho Oliver MD Nov 23, 2018 10:02
--- NOTE | 2018-11-23 10:23 | NUR ---
NURSE NOTES: K3.3, Dr brian is aware, order noted and carried out. will continue to monitor.
--- NOTE | 2018-11-23 10:56 | Pulmonology Progress Note ---
Assessment/Plan Problems: (1) Lower GI bleed (2) Anemia (3) HTN (hypertension) (4) Alzheimer's dementia (5) Diabetes mellitus Assessment/Plan colonoscopy canceled, since there was nobody to consent to the procedure looks comfortable sliding scale monitor bp prbc prn check H/H dvt prophylaxis. Subjective ROS Limited/Unobtainable: No Constitutional: Reports: no symptoms HEENT: Repors: no symptoms Allergies: Coded Allergies: No Known Allergies (Unverified , 04/09/16) Objective Last 24 Hour Vital Signs Date Time Temp Pulse Resp B/P (MAP) Pulse Ox O2 Delivery O2 Flow Rate FiO2 11/23/18 09:29 168/80 11/23/18 09:29 168/80 11/23/18 08:00 97.0 76 16 168/80 (109) 99 11/23/18 04:00 97.2 85 17 144/77 (99) 94 11/23/18 00:00 97.9 81 18 135/57 (83) 98 11/22/18 21:00 Room Air 11/22/18 20:40 181/79 11/22/18 20:00 98.0 86 20 163/79 (107) 100 11/22/18 18:07 182/96 11/22/18 16:00 98.0 80 18 182/96 (124) 98 11/22/18 13:33 Room Air 11/22/18 13:31 Room Air 11/22/18 13:05 99.0 79 13 146/53 98 Room Air 11/22/18 12:19 79 14 159/68 100 Room Air 11/22/18 11:33 98.1 92 16 126/76 98 Room Air 11/22/18 11:33 92 16 Room Air Intake and Output 11/22/18 11/23/18 19:00 07:00 Intake Total 425 ml 825 ml Output Total 400 ml Balance 425 ml 425 ml Intake Oral 240 ml IV Total 185 ml 825 ml Output Urine Total 400 ml # Voids 4 General Appearance: WD/WN HEENT: normocephalic, atraumatic, anicteric Respiratory/Chest: chest wall non-tender, lungs clear Cardiovascular: normal peripheral pulses, normal rate Abdomen: normal bowel sounds, no organomegaly Genitourinary: normal external genitalia Extremities: no clubbing Skin: no rash Microbiology Date/Time Source Procedure Growth Status 11/22/18 11:15 Urine,Clean Catch Urine Culture - Preliminary NO GROWTH Resulted Laboratory Tests 11/22/18 11:15: Urine Color Brown, Urine Appearance Slightly cloudy, Urine pH 6, Urine Specific [place] 1.010, Urine Protein 3+H, Urine Glucose (UA) Negative, Urine Ketones 3+H , Urine Blood 5+H, Urine Nitrite PositiveH, Urine Bilirubin Negative, Urine Urobilinogen 4H, Urine Leukocyte Esterase 3+H, Urine RBC TntcH, Urine WBC 10-15H , Urine Squamous Epithelial Cells Occasional, Urine Bacteria ModerateH 11/23/18 05:05: White Blood Count 8.2, Red Blood Count 3.46L, Hemoglobin 10.8L, Hematocrit 31.5L , Mean Corpuscular Volume 91, Mean Corpuscular Hemoglobin 31.1H, Mean Corpuscular Hemoglobin Concent 34.2, Red Cell Distribution Width 11.9, Platelet Count 144L, Mean Platelet Volume 6.5, Neutrophils (%) (Auto) 77.8H, Lymphocytes (%) (Auto) 12.8L, Monocytes (%) (Auto) 8.6, Eosinophils (%) (Auto) 0.0, Basophils (%) (Auto) 0.8, Reticulocyte Count 1.3, Prothrombin Time 11.4, Prothromb Time International Ratio 1.1, Activated Partial Thromboplast Time 33, Sodium Level 144, Potassium Level 3.3L, Chloride Level 106, Carbon Dioxide Level 28, Anion Gap 10, Blood Urea Nitrogen 9, Creatinine 1.0, Estimat Glomerular Filtration Rate , Glucose Level 165#H, Calcium Level 8.9, Iron Level 32L, Total Iron Binding Capacity 197L, Percent Iron Saturation 16, Unsaturated Iron Binding 165, Ferritin 75, Total Bilirubin 1.1H, Direct Bilirubin 0.3, Aspartate Amino Transf (AST/SGOT) 28, Alanine Aminotransferase (ALT/SGPT) 35, Alkaline Phosphatase 73, Total Protein 6.5, Albumin 2.9L, Globulin 3.6, Albumin/ Globulin Ratio 0.8L, Amylase Level 35, Lipase 63L, Carcinoembryonic Antigen [ Pending], Vitamin B12 Level 1500H, Folate 17.5, Thyroid Stimulating Hormone (TSH ) < 0.010L, Free Thyroxine 2.00H Current Medications Medications (Trade) Dose Ordered Sig/Levi Route PRN Reason Start Time Stop Time Status Last Admin Dose Admin Acetaminophen (Tylenol) 650 mg Q4H PRN ORAL fever 11/22/18 13:30 12/22/18 13:29 Al Hydroxide/Mg Hydroxide (Mylanta II) 30 ml Q6H PRN ORAL dyspepsia 11/22/18 13:30 12/22/18 13:29 Al Hydroxide/Mg Hydroxide (Mylanta) 15 ml Q1H PRN ORAL gi upset 11/23/18 06:45 11/23/18 18:00 Atropine Sulfate (Atropine) 0.5 mg Q5M PRN IV bpm less than 45 11/23/18 06:45 11/23/18 18:00 Ceftriaxone Sodium 1 gm/ Dextrose 55 ml @ 110 mls/hr Q24H IVPB 11/23/18 12:00 11/30/18 11:59 Dextrose (Dextrose 50%) 25 ml Q30M PRN IV Hypoglycemia 11/22/18 13:30 12/22/18 13:23 11/22/18 17:21 Dextrose (Dextrose 50%) 50 ml Q30M PRN IV hypoglycemia 11/22/18 13:30 12/22/18 13:29 Dextrose/Sodium Chloride 1,000 ml @ 75 mls/hr [id number] IV 11/22/18 13:16 12/22/18 13:15 11/23/18 05:16 Diphenhydramine HCl (Benadryl) 25 mg Q15M PRN IVP Itching 11/23/18 06:45 11/23/18 18:00 Diphenhydramine HCl (Benadryl) 25 mg Q6H PRN ORAL Itching/Pruritis 11/22/18 13:30 12/22/18 13:29 Fentanyl Citrate (Sublimaze 100 mcg/2 mL) 25 mcg Q10M PRN IV Moderate Pain (Pain Scale 4-6) 11/23/18 06:45 11/23/18 18:00 Finasteride (Proscar) 5 mg DAILY ORAL 11/22/18 19:45 12/22/18 19:44 11/23/18 09:29 Hydralazine HCl (Apresoline) 5 mg Q30M PRN IV SBP>160 OR___/DBP>90 OR___ 11/23/18 06:45 11/23/18 18:00 Hydralazine HCl (Apresoline) 50 mg Q6H PRN ORAL SBP > 160 11/22/18 17:30 12/22/18 17:29 11/23/18 09:29 Insulin Aspart (NovoLOG) BEFORE MEALS AND HS SUBQ 11/22/18 16:30 12/22/18 16:29 11/23/18 05:51 Irbesartan (Avapro) 150 mg DAILY ORAL 11/22/18 17:30 12/22/18 17:29 11/23/18 09:29 Midazolam HCl (Versed 2mg/2ml vial) 1 mg Q15M PRN IVP For Anxiety 11/23/18 06:45 11/23/18 18:00 Morphine Sulfate (Morphine Sulfate) 2 mg Q4H PRN IVP severe Pain (Pain Scale 7-10) 11/22/18 13:30 11/29/18 13:29 11/22/18 20:41 Nitroglycerin (Ntg) 0.4 mg Q5M X 3 DOSES PRN SL Prn Chest Pain 11/22/18 13:30 12/22/18 13:29 Ondansetron HCl (Zofran) 4 mg Q1H PRN IVP Nausea & Vomiting 11/23/18 06:45 11/23/18 18:00 Ondansetron HCl (Zofran) 4 mg Q6H PRN IVP Nausea & Vomiting 11/22/18 13:30 12/22/18 13:29 Polyethylene Glycol (Miralax) 17 gm HSPRN PRN ORAL Constipation 11/22/18 13:30 12/22/18 13:29 Potassium Chloride (K-Dur) 40 meq ONCE ORAL 11/23/18 10:18 11/23/18 12:00 11/23/18 10:23 Tamsulosin HCl (Flomax) 0.4 mg BEDTIME ORAL 11/22/18 21:00 12/22/18 20:59 11/22/18 20:39 Temazepam (Restoril) 15 mg HSPRN PRN ORAL Insomnia 11/22/18 13:30 11/29/18 13:29 11/22/18 20:40 Og Hinkle MD Nov 23, 2018 10:56
--- NOTE | 2018-11-23 12:20 | GI Progress Note ---
Assessment/Plan Problems: (1) Lower GI bleed ICD Codes: K92.2 - Gastrointestinal hemorrhage, unspecified SNOMED: 15622709 (2) Anemia ICD Codes: D64.9 - Anemia, unspecified SNOMED: 214153130 (3) Bleeding hemorrhoid ICD Codes: K64.9 - Unspecified hemorrhoids SNOMED: 82665204 (4) Alzheimer's dementia ICD Codes: G30.9 - Alzheimer's disease, unspecified; F02.80 - Dementia in other diseases classified elsewhere without behavioral disturbance SNOMED: 74545224 (5) Diabetes mellitus ICD Codes: E11.9 - Type 2 diabetes mellitus without complications SNOMED: 08792110 Status: unchanged Status Narrative Discussed with Dr. Hernandez. Assessment/Plan EGD/colonoscopy cancelled due to no consent, will tentatively reschedule for tomorrow. - CLD now, NPO @ CO. - hold all blood thinners tonight. anemia work up reviewed OB stool r/o GI bleed monitor H&H, prn transfusions bowel regime ppi fu labs will follow with additional recommendations post procedure. The patient was seen and examined at bedside and all new and available data was reviewed in the patients chart. I agree with the above findings, impression and plan. (Patient seen earlier today. Signature stamp does not reflect patient encounter time.). - Prince Hernandez MD Subjective Gastrointestinal/Abdominal: Reports: no symptoms Objective Last 24 Hour Vital Signs Date Time Temp Pulse Resp B/P (MAP) Pulse Ox O2 Delivery O2 Flow Rate FiO2 11/23/18 09:29 168/80 11/23/18 09:29 168/80 11/23/18 08:00 97.0 76 16 168/80 (109) 99 11/23/18 04:00 97.2 85 17 144/77 (99) 94 11/23/18 00:00 97.9 81 18 135/57 (83) 98 11/22/18 21:00 Room Air 11/22/18 20:40 181/79 11/22/18 20:00 98.0 86 20 163/79 (107) 100 11/22/18 18:07 182/96 11/22/18 16:00 98.0 80 18 182/96 (124) 98 11/22/18 13:33 Room Air 4/15/19 13:31 Room Air 11/22/18 13:05 99.0 79 13 146/53 98 Room Air Intake and Output 11/22/18 11/23/18 19:00 07:00 Intake Total 425 ml 825 ml Output Total 400 ml Balance 425 ml 425 ml Intake Oral 240 ml IV Total 185 ml 825 ml Output Urine Total 400 ml # Voids 4 Laboratory Tests Test 11/23/18 05:05 White Blood Count 8.2 K/UL (4.8-10.8) Red Blood Count 3.46 M/UL (4.70-6.10) L Hemoglobin 10.8 G/DL (14.2-18.0) L Hematocrit 31.5 % (42.0-52.0) L Mean Corpuscular Volume 91 FL (80-99) Mean Corpuscular Hemoglobin 31.1 PG (27.0-31.0) H Mean Corpuscular Hemoglobin Concent 34.2 G/DL (32.0-36.0) Red Cell Distribution Width 11.9 % (11.6-14.8) Platelet Count 144 K/UL (150-450) L Mean Platelet Volume 6.5 FL (6.5-10.1) Neutrophils (%) (Auto) 77.8 % (45.0-75.0) H Lymphocytes (%) (Auto) 12.8 % (20.0-45.0) L Monocytes (%) (Auto) 8.6 % (1.0-10.0) Eosinophils (%) (Auto) 0.0 % (0.0-3.0) Basophils (%) (Auto) 0.8 % (0.0-2.0) Reticulocyte Count 1.3 % (0.0-2.0) Prothrombin Time 11.4 SEC (9.30-11.50) Prothromb Time International Ratio 1.1 (0.9-1.1) Activated Partial Thromboplast Time 33 SEC (23-33) Sodium Level 144 MMOL/L (136-145) Potassium Level 3.3 MMOL/L (3.5-5.1) L Chloride Level 106 MMOL/L (98-107) Carbon Dioxide Level 28 MMOL/L (21-32) Anion Gap 10 mmol/L (5-15) Blood Urea Nitrogen 9 mg/dL (7-18) Creatinine 1.0 MG/DL (0.55-1.30) Estimat Glomerular Filtration Rate mL/min (>60) Glucose Level 165 MG/DL (74-106) #H Calcium Level 8.9 MG/DL (8.5-10.1) Iron Level 32 ug/dL (50-175) L Total Iron Binding Capacity 197 ug/dL (250-450) L Percent Iron Saturation 16 % (15-50) Unsaturated Iron Binding 165 ug/dL (112-346) Ferritin 75 NG/ML (8-388) Total Bilirubin 1.1 MG/DL (0.2-1.0) H Direct Bilirubin 0.3 MG/DL (0.0-0.3) Aspartate Amino Transf (AST/SGOT) 28 U/L (15-37) Alanine Aminotransferase (ALT/SGPT) 35 U/L (12-78) Alkaline Phosphatase 73 U/L (46-116) Total Protein 6.5 G/DL (6.4-8.2) Albumin 2.9 G/DL (3.4-5.0) L Globulin 3.6 g/dL Albumin/Globulin Ratio 0.8 (1.0-2.7) L Amylase Level 35 U/L (25-115) Lipase 63 U/L (73-393) L Carcinoembryonic Antigen Pending Vitamin B12 Level 1500 PG/ML (193-986) H Folate 17.5 NG/ML (8.6-58.9) Thyroid Stimulating Hormone (TSH) < 0.010 uiU/mL (0.358-3.740) Free Thyroxine 2.00 NG/DL (0.76-1.46) H Height (Feet): 6 Height (Inches): 0.00 Weight (Pounds): 180 General Appearance: WD/WN, no apparent distress, alert, thin Cardiovascular: normal rate Respiratory/Chest: normal breath sounds, no respiratory distress Abdominal Exam: normal bowel sounds, non tender, soft Extremities: non-tender Osiel Vega COTTON BROKER Nov 23, 2018 12:20
--- NOTE | 2018-11-23 12:58 | NUR ---
SWALLOW/SPEECH THERAPY NOTE: REFERRED BY Tiburcio TEJEDA GI YARN TEXTURING MACHINE OPERATOR AND PRIMARY DR JOHNSON FOR A SWALLOW EVALUATIONS (SEE FULL REPORT IN [facility] ACTIV[facility] COMPLETED POST CHART REVIEW) DYSPHAGIA RISK FACTORS FOR THIS 83 Y.O.F.: ACUTE GIB, UTI, AMS CONFUSED AND POOR HISTORIAN, AND ANEMIA, LUNGS ARE CLEAR NOW. ON ROOM AIR BUT TENDS TO HAVE HIGH BP. H/O ADVANCED AGE, SIGNIFICANT DEMENTIA, DM2 SEIZURES, PACEMAKER, ENDOCRINE D/O, HTN. NO POLST/AD REGARDING TUBE FEEDINGS IF NEEDED. ? DIET AT HOME WITH GRANDDAUGHTER. CURRENTLY ON A CLEAR LIQUID DIET WITH 100% INTAKE AND ABLE TO TOLERATE PUREED WITH CRUSHED MEDS W/O OVERT ASPIRATION PER RN. PER RN, OK TO GIVE SWALLOW EVAL AT BEDSIDE NEEDED PRIOR TO GI EGD AND COLONOSCOPY. 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 LIPS WFL BUT TONGUE AND JAW TREMOR. TONGUE STRENGTH BILATERALLY WFLS. VOICE CLEAR BUT COUGH SEEMS WEEK. GIVEN THIN LIQUIDS SEQUENTIAL SIPS VIA STRAW ([place] SWALLOW PROTOCOL 3 OUNCES), GOOD LIP CLOSURE AND FAIR HYOLARYNGEAL EXCURSION BUT NO OVERT S/S OF OVERT ASPIRATION. GIVEN TSP PUREED, PATIENT HAD MILD INCREASE IN ORAL PREP HE CHEWED THE BOLUDS 5 SECONDS AND SWALLOWED W/O OVERT ASP NOR ORAL RESIDUE. PATIENT EDENTULOUS AND WAS VERY SLOW IN CHEWING MASTICATED SOLID (1/2 CRACKER) AND HAS MILD ORAL RESIDUE MID TONGUE THAT WAS CLEARED WITH THIN LIQUID WASH. NO OVERT ASPIRATION BUT HAS RISK DUE TO ORAL RESIDUE POST SWALLOW. RECOMMENDATIONS: CONSIDER MOD BARIUM SWALLOW STUDY TO FURTHER ASSESS SWALLOW, DETERMINE SILENT ASPIRATION RISK AND ETIOLOGY, AND ATTEMPT TRIAL TX TECHNIQUES. IF PO CONTINUE FOR QUALITY OF LIFE, CONSIDER CONTINUING WITH CLD USING POSTED ASPIRATION PRECAUTIONS AND SUPERVISION UNTIL GI CLEARS FOR PO AFTER EGD/COLONOSCOPY. AFTER GI PROCEDURES, CONSIDER CCHO-MED PUREED AND THIN LIQUID DIET BEFORE OR AFTER THE MOD BARIUM SWALLOW STUDY (DO NOT HOLD UP PO INTAKE NOR D/C FOR THIS STUDY IT CAN BE COMPLETED AN OUTPT. EDUCATED/TRAINED RN ([place]) AND PATIENT (WHO IS CONFUSED) IN POSTED ASPIRATION PRECAUTIONS. DYSPHAGIA MANAGEMENT/TX AND COG-COM EVAL/TX FOR COM TIPS MOSTLY. Addendum: 11/23/18 at 1306 by VALERIE SHETH PERMASTONE MECHANIC ALERT WITH CUES AND FOLLOWS SOME ORAL COMMANDS. SPEECH IS VERY UNINTELLIGIBLE AND HAS A SIGNIFICANT TONGUE/JAW TREMOR.
[2018-11-23] MEDS: cefTRIAXone 1 GM in D5W 55 ML IVPB SCH (13:02)
--- NOTE | 2018-11-23 13:35 | Cardiology Progress Note ---
Assessment/Plan Assessment/Plan cad (recent mpi cedarse 12/2017 6% fixed 3% reversible 0 recent pacer implantation normll lv systolic fucntion full note dicated no contraindication for cysto [id number] Objective Last 24 Hour Vital Signs Date Time Temp Pulse Resp B/P (MAP) Pulse Ox O2 Delivery O2 Flow Rate FiO2 11/23/18 12:00 97.1 80 14 148/68 (94) 98 11/23/18 10:00 158/78 (104) 11/23/18 09:29 168/80 11/23/18 09:29 168/80 11/23/18 08:00 97.0 76 16 168/80 (109) 99 11/23/18 04:00 97.2 85 17 144/77 (99) 94 11/23/18 00:00 97.9 81 18 135/57 (83) 98 11/22/18 21:00 Room Air 11/22/18 20:40 181/79 11/22/18 20:00 98.0 86 20 163/79 (107) 100 11/22/18 18:07 182/96 11/22/18 16:00 98.0 80 18 182/96 (124) 98 Intake and Output 11/22/18 11/23/18 19:00 07:00 Intake Total 425 ml 825 ml Output Total 400 ml Balance 425 ml 425 ml Intake Oral 240 ml IV Total 185 ml 825 ml Output Urine Total 400 ml # Voids 4 Laboratory Tests Test 11/23/18 05:05 White Blood Count 8.2 K/UL (4.8-10.8) Red Blood Count 3.46 M/UL (4.70-6.10) L Hemoglobin 10.8 G/DL (14.2-18.0) L Hematocrit 31.5 % (42.0-52.0) L Mean Corpuscular Volume 91 FL (80-99) Mean Corpuscular Hemoglobin 31.1 PG (27.0-31.0) H Mean Corpuscular Hemoglobin Concent 34.2 G/DL (32.0-36.0) Red Cell Distribution Width 11.9 % (11.6-14.8) Platelet Count 144 K/UL (150-450) L Mean Platelet Volume 6.5 FL (6.5-10.1) Neutrophils (%) (Auto) 77.8 % (45.0-75.0) H Lymphocytes (%) (Auto) 12.8 % (20.0-45.0) L Monocytes (%) (Auto) 8.6 % (1.0-10.0) Eosinophils (%) (Auto) 0.0 % (0.0-3.0) Basophils (%) (Auto) 0.8 % (0.0-2.0) Reticulocyte Count 1.3 % (0.0-2.0) Prothrombin Time 11.4 SEC (9.30-11.50) Prothromb Time International Ratio 1.1 (0.9-1.1) Activated Partial Thromboplast Time 33 SEC (23-33) Sodium Level 144 MMOL/L (136-145) Potassium Level 3.3 MMOL/L (3.5-5.1) L Chloride Level 106 MMOL/L (98-107) Carbon Dioxide Level 28 MMOL/L (21-32) Anion Gap 10 mmol/L (5-15) Blood Urea Nitrogen 9 mg/dL (7-18) Creatinine 1.0 MG/DL (0.55-1.30) Estimat Glomerular Filtration Rate mL/min (>60) Glucose Level 165 MG/DL (74-106) #H Calcium Level 8.9 MG/DL (8.5-10.1) Iron Level 32 ug/dL (50-175) L Total Iron Binding Capacity 197 ug/dL (250-450) L Percent Iron Saturation 16 % (15-50) Unsaturated Iron Binding 165 ug/dL (112-346) Ferritin 75 NG/ML (8-388) Total Bilirubin 1.1 MG/DL (0.2-1.0) H Direct Bilirubin 0.3 MG/DL (0.0-0.3) Aspartate Amino Transf (AST/SGOT) 28 U/L (15-37) Alanine Aminotransferase (ALT/SGPT) 35 U/L (12-78) Alkaline Phosphatase 73 U/L (46-116) Total Protein 6.5 G/DL (6.4-8.2) Albumin 2.9 G/DL (3.4-5.0) L Globulin 3.6 g/dL Albumin/Globulin Ratio 0.8 (1.0-2.7) L Amylase Level 35 U/L (25-115) Lipase 63 U/L (73-393) L Carcinoembryonic Antigen Pending Vitamin B12 Level 1500 PG/ML (193-986) H Folate 17.5 NG/ML (8.6-58.9) Thyroid Stimulating Hormone (TSH) < 0.010 uiU/mL (0.358-3.740) Free Thyroxine 2.00 NG/DL (0.76-1.46) H Microbiology Date/Time Source Procedure Growth Status 11/22/18 11:15 Urine,Clean Catch Urine Culture - Preliminary NO GROWTH Resulted Nj Valenzuela MD Nov 23, 2018 13:35
--- NOTE | 2018-11-23 16:28 | Internal Med Progress Note ---
Subjective Date of Service: Nov 23, 2018 Physician Name Jean-Claude Peter Attending Physician Jaziel Lowe MD Current Medications Medications (Trade) Dose Ordered Sig/Levi Route PRN Reason Start Time Stop Time Status Last Admin Dose Admin Acetaminophen (Tylenol) 650 mg Q4H PRN ORAL fever 11/22/18 13:30 12/22/18 13:29 Al Hydroxide/Mg Hydroxide (Mylanta II) 30 ml Q6H PRN ORAL dyspepsia 11/22/18 13:30 12/22/18 13:29 Al Hydroxide/Mg Hydroxide (Mylanta) 15 ml Q1H PRN ORAL gi upset 11/23/18 06:45 11/23/18 18:00 Atropine Sulfate (Atropine) 0.5 mg Q5M PRN IV bpm less than 45 11/23/18 06:45 11/23/18 18:00 Ceftriaxone Sodium 1 gm/ Dextrose 55 ml @ 110 mls/hr Q24H IVPB 11/23/18 12:00 11/30/18 11:59 11/23/18 13:02 Dextrose (Dextrose 50%) 25 ml Q30M PRN IV Hypoglycemia 11/22/18 13:30 12/22/18 13:23 11/22/18 17:21 Dextrose (Dextrose 50%) 50 ml Q30M PRN IV hypoglycemia 11/22/18 13:30 12/22/18 13:29 Dextrose/Sodium Chloride 1,000 ml @ 75 mls/hr [id number] IV 11/22/18 13:16 12/22/18 13:15 11/23/18 05:16 Diphenhydramine HCl (Benadryl) 25 mg Q15M PRN IVP Itching 11/23/18 06:45 11/23/18 18:00 Diphenhydramine HCl (Benadryl) 25 mg Q6H PRN ORAL Itching/Pruritis 11/22/18 13:30 12/22/18 13:29 Fentanyl Citrate (Sublimaze 100 mcg/2 mL) 25 mcg Q10M PRN IV Moderate Pain (Pain Scale 4-6) 11/23/18 06:45 11/23/18 18:00 Finasteride (Proscar) 5 mg DAILY ORAL 11/22/18 19:45 12/22/18 19:44 11/23/18 09:29 Hydralazine HCl (Apresoline) 5 mg Q30M PRN IV SBP>160 OR___/DBP>90 OR___ 11/23/18 06:45 11/23/18 18:00 Hydralazine HCl (Apresoline) 50 mg Q6H PRN ORAL SBP > 160 11/22/18 17:30 12/22/18 17:29 11/23/18 09:29 Insulin Aspart (NovoLOG) BEFORE MEALS AND HS SUBQ 11/22/18 16:30 12/22/18 16:29 11/23/18 12:32 Irbesartan (Avapro) 150 mg DAILY ORAL 11/22/18 17:30 12/22/18 17:29 11/23/18 09:29 Midazolam HCl (Versed 2mg/2ml vial) 1 mg Q15M PRN IVP For Anxiety 11/23/18 06:45 11/23/18 18:00 Morphine Sulfate (Morphine Sulfate) 2 mg Q4H PRN IVP severe Pain (Pain Scale 7-10) 11/22/18 13:30 11/29/18 13:29 11/22/18 20:41 Nitroglycerin (Ntg) 0.4 mg Q5M X 3 DOSES PRN SL Prn Chest Pain 11/22/18 13:30 12/22/18 13:29 Ondansetron HCl (Zofran) 4 mg Q1H PRN IVP Nausea & Vomiting 11/23/18 06:45 11/23/18 18:00 Ondansetron HCl (Zofran) 4 mg Q6H PRN IVP Nausea & Vomiting 11/22/18 13:30 12/22/18 13:29 Polyethylene Glycol (Miralax) 17 gm HSPRN PRN ORAL Constipation 11/22/18 13:30 12/22/18 13:29 Tamsulosin HCl (Flomax) 0.4 mg BEDTIME ORAL 11/22/18 21:00 12/22/18 20:59 11/22/18 20:39 Temazepam (Restoril) 15 mg HSPRN PRN ORAL Insomnia 11/22/18 13:30 11/29/18 13:29 11/22/18 20:40 Allergies: Coded Allergies: No Known Allergies (Unverified , 04/09/16) ROS Limited/Unobtainable: Yes Subjective 83 YO M admitted with gastrointestinal hemorrhage. Await endoscopy and colonoscopy. Cover for Int Uriel-Dr Lowe Objective Last Vital Signs Date Time Temp Pulse Resp B/P (MAP) Pulse Ox O2 Delivery O2 Flow Rate FiO2 11/23/18 12:00 97.1 80 14 148/68 (94) 98 11/23/18 09:00 Room Air Laboratory Tests Test 11/23/18 05:05 White Blood Count 8.2 K/UL (4.8-10.8) Red Blood Count 3.46 M/UL (4.70-6.10) L Hemoglobin 10.8 G/DL (14.2-18.0) L Hematocrit 31.5 % (42.0-52.0) L Mean Corpuscular Volume 91 FL (80-99) Mean Corpuscular Hemoglobin 31.1 PG (27.0-31.0) H Mean Corpuscular Hemoglobin Concent 34.2 G/DL (32.0-36.0) Red Cell Distribution Width 11.9 % (11.6-14.8) Platelet Count 144 K/UL (150-450) L Mean Platelet Volume 6.5 FL (6.5-10.1) Neutrophils (%) (Auto) 77.8 % (45.0-75.0) H Lymphocytes (%) (Auto) 12.8 % (20.0-45.0) L Monocytes (%) (Auto) 8.6 % (1.0-10.0) Eosinophils (%) (Auto) 0.0 % (0.0-3.0) Basophils (%) (Auto) 0.8 % (0.0-2.0) Reticulocyte Count 1.3 % (0.0-2.0) Prothrombin Time 11.4 SEC (9.30-11.50) Prothromb Time International Ratio 1.1 (0.9-1.1) Activated Partial Thromboplast Time 33 SEC (23-33) Sodium Level 144 MMOL/L (136-145) Potassium Level 3.3 MMOL/L (3.5-5.1) L Chloride Level 106 MMOL/L (98-107) Carbon Dioxide Level 28 MMOL/L (21-32) Anion Gap 10 mmol/L (5-15) Blood Urea Nitrogen 9 mg/dL (7-18) Creatinine 1.0 MG/DL (0.55-1.30) Estimat Glomerular Filtration Rate mL/min (>60) Glucose Level 165 MG/DL (74-106) #H Calcium Level 8.9 MG/DL (8.5-10.1) Iron Level 32 ug/dL (50-175) L Total Iron Binding Capacity 197 ug/dL (250-450) L Percent Iron Saturation 16 % (15-50) Unsaturated Iron Binding 165 ug/dL (112-346) Ferritin 75 NG/ML (8-388) Total Bilirubin 1.1 MG/DL (0.2-1.0) H Direct Bilirubin 0.3 MG/DL (0.0-0.3) Aspartate Amino Transf (AST/SGOT) 28 U/L (15-37) Alanine Aminotransferase (ALT/SGPT) 35 U/L (12-78) Alkaline Phosphatase 73 U/L (46-116) Total Protein 6.5 G/DL (6.4-8.2) Albumin 2.9 G/DL (3.4-5.0) L Globulin 3.6 g/dL Albumin/Globulin Ratio 0.8 (1.0-2.7) L Amylase Level 35 U/L (25-115) Lipase 63 U/L (73-393) L Carcinoembryonic Antigen Pending Vitamin B12 Level 1500 PG/ML (193-986) H Folate 17.5 NG/ML (8.6-58.9) Thyroid Stimulating Hormone (TSH) < 0.010 uiU/mL (0.358-3.740) Free Thyroxine 2.00 NG/DL (0.76-1.46) H Microbiology Date/Time Source Procedure Growth Status 11/22/18 11:15 Urine,Clean Catch Urine Culture - Preliminary NO GROWTH Resulted Intake and Output 11/22/18 11/23/18 18:59 06:59 Intake Total 350 ml 900 ml Output Total 400 ml Balance 350 ml 500 ml Intake Oral 240 ml IV Total 110 ml 900 ml Output Urine Total 400 ml # Voids 4 Objective PHYSICAL EXAMINATION: GENERAL: The patient is awake, alert, responsive, very pleasant, but forgetful. HEAD AND NECK: Pupils are reactive to light. Extraocular movements intact. Neck was supple. No JVD. LUNGS: Good air entry. No wheezing or rales. Left side of the chest has a pacemaker. ABDOMEN: Soft, nondistended, and nontender. Positive bowel sounds. EXTREMITIES: No cyanosis, clubbing, or edema. NEUROLOGIC: BLINDSTITCH LAPEL PADDER II through XII grossly intact. Motor is 5/5 in all extremities. Gait was not assessed due to the patient's status. RECTAL/GENITOURINARY: Refused and deferred. Assessment/Plan Assessment/Plan ASSESSMENT: 1. Gastrointestinal bleed. 2. Anemia possible due to acute blood loss. 3. Hypokalemia. 4. Acute urinary tract infection. 5. Moderate left hydronephrosis with hydroureter. 6. Cardiac arrhythmia status post pacemaker. 7. Diabetes type 2. 8. Hypertension. PLAN: 1. Admit the patient to medical floor. 2. We will follow up with the laboratory. 3. Clear liquid diet. 4. Gastrointestinal consultation with Dr. Hernandez. 5. Code status is Full Code at this time. 6. We will follow up with the Urology consultation, Dr. Allen. 7. Esophagogastroduodenoscopy and colonoscopy rescheduled for 11/24/18. 8. We will follow up with urine culture and Cardiology consultation with Dr. Nj Valenzuela. Jean-Claude Peter MD Nov 23, 2018 16:28
--- NOTE | 2018-11-23 17:40 | Consultation ---
History of Present Illness General Date patient seen: Nov 23, 2018 Chief Complaint: Gastrointestinal Bleed Referring physician: BRETT JOHNSON Reason for Consultation: GI BLEED Present Illness HPI 83 year old male with hx of DM, Dementia, pacemaker presented to ER with CC of blood in the diaper. Patient was also noted to be slightly altered. No other complaints are noted other than generalized weakness and confusion as well as possible blood in the urine or rectum. Symptoms noted to be moderate to severe. Pt was found to be anemic and admitted for further management. Pt is awake and comfortable, knows his name. but doesn't know where he is and why is he here. Allergies: Coded Allergies: No Known Allergies (Unverified , 04/09/16) Medication History Scheduled Lisinopril (Lisinopril*), 20 MG ORAL DAILY Metformin Hcl (Glucophage), 1,000 MG ORAL EVERY 12 HOURS Miscellaneous Medications Unable to Obtain Medications (Unable To Obtain Meds), (Reported) Patient History Limited by: medical condition History Provided By: Patient Healthcare decision maker Resuscitation status Full Code Advanced Directive on File Review of Systems Constitutional: Reports: malaise, weakness Eye: Denies: no symptoms, see HPI, eye pain, blurred vision, tearing, double vision, nose pain, nose congestion, acuity changes, discharge, other ENT: Denies: no symptoms, see HPI, ear pain, ear discharge, nose pain, nose congestion, throat pain, throat swelling, mouth pain, hearing loss, nasal discharge, other Respiratory: Denies: no symptoms, see HPI, cough, orthopnea, shortness of breath, stridor, wheezing, BOONE, sputum, other Cardiovascular: Denies: no symptoms, see HPI, chest pain, edema, palpitations, syncope, PND, other Gastrointestinal: Denies: no symptoms, see HPI, abdominal pain, constipation, diarrhea, nausea, vomiting, melena, hematemesis, other Genitourinary: Denies: no symptoms, see HPI, discharge, dysuria, frequency, hematuria, pain, retention, incontinence, urgency, vag bleed/dc, other Musculoskeletal: Denies: no symptoms, see HPI, back pain, gout, joint pain, joint swelling, muscle pain, muscle stiffness, other Skin: Denies: no symptoms, see HPI, rash, change in color, change in hair/nails , dryness, lesions, other Psychiatric: Denies: no symptoms, see HPI, prior hx, anxiety, depressed feelings, emotional problems, SI, HI, hallucinations, other Neurological: Denies: no symptoms, see HPI, headache, numbness, paresthesia, seizure, tingling, tremors, focal weakness, syncope, dizziness, other Endocrine: Denies: no symptoms, see HPI, excessive sweating, flushing, intolerance to temperature, increased thirst, increased urine, unexplained weight loss, other Hematologic/Lymphatic: Denies: no symptoms, see HPI, anemia, blood clots, easy bleeding, easy bruising, swollen glands, diathesis, other Physical Exam General Appearance: WD/WN, no apparent distress, alert, confused Lines, tubes and drains: peripheral HEENT: normocephalic, atraumatic, anicteric, mucous membranes moist, PERRL, EOMI, supple, no JVD Respiratory/Chest: normal breath sounds, no respiratory distress, no accessory muscle use Cardiovascular/Chest: normal peripheral pulses Extremities: non-tender, no calf tenderness, normal capillary refill, no edema , no cyanosis Skin Exam: normal pigmentation, warm/dry Neurologic: alert, responsive, normal mood/affect, no Babinski, abnormal CN - Mild left facial asymmetry with nasolabial flattening but tongue symmetric and midline. , motor weakness - Left Greater than right LUE 4/5, more neglectful than weak. LLE 5/5. RUE/RLE 5/5 - intention tremor, generalized weakness over dysmetria on FTN, disoriented Musculoskeletal: normal muscle bulk Last 24 Hour Vital Signs Date Time Temp Pulse Resp B/P (MAP) Pulse Ox O2 Delivery O2 Flow Rate FiO2 11/23/18 16:00 98.1 85 18 142/81 (101) 99 11/23/18 12:00 97.1 80 14 148/68 (94) 98 11/23/18 10:00 158/78 (104) 11/23/18 09:29 168/80 11/23/18 09:29 168/80 11/23/18 09:00 Room Air 11/23/18 08:00 97.0 76 16 168/80 (109) 99 11/23/18 04:00 97.2 85 17 144/77 (99) 94 11/23/18 00:00 97.9 81 18 135/57 (83) 98 11/22/18 21:00 Room Air 11/22/18 20:40 181/79 11/22/18 20:00 98.0 86 20 163/79 (107) 100 11/22/18 18:07 182/96 Intake and Output 11/22/18 11/23/18 18:59 06:59 Intake Total 350 ml 900 ml Output Total 400 ml Balance 350 ml 500 ml Intake Oral 240 ml IV Total 110 ml 900 ml Output Urine Total 400 ml # Voids 4 Laboratory Tests Test 11/23/18 05:05 11/23/18 15:30 White Blood Count 8.2 K/UL (4.8-10.8) Red Blood Count 3.46 M/UL (4.70-6.10) L Hemoglobin 10.8 G/DL (14.2-18.0) L Hematocrit 31.5 % (42.0-52.0) L Mean Corpuscular Volume 91 FL (80-99) Mean Corpuscular Hemoglobin 31.1 PG (27.0-31.0) H Mean Corpuscular Hemoglobin Concent 34.2 G/DL (32.0-36.0) Red Cell Distribution Width 11.9 % (11.6-14.8) Platelet Count 144 K/UL (150-450) L Mean Platelet Volume 6.5 FL (6.5-10.1) Neutrophils (%) (Auto) 77.8 % (45.0-75.0) H Lymphocytes (%) (Auto) 12.8 % (20.0-45.0) L Monocytes (%) (Auto) 8.6 % (1.0-10.0) Eosinophils (%) (Auto) 0.0 % (0.0-3.0) Basophils (%) (Auto) 0.8 % (0.0-2.0) Reticulocyte Count 1.3 % (0.0-2.0) Prothrombin Time 11.4 SEC (9.30-11.50) Prothromb Time International Ratio 1.1 (0.9-1.1) Activated Partial Thromboplast Time 33 SEC (23-33) Sodium Level 144 MMOL/L (136-145) Potassium Level 3.3 MMOL/L (3.5-5.1) L Chloride Level 106 MMOL/L (98-107) Carbon Dioxide Level 28 MMOL/L (21-32) Anion Gap 10 mmol/L (5-15) Blood Urea Nitrogen 9 mg/dL (7-18) Creatinine 1.0 MG/DL (0.55-1.30) Estimat Glomerular Filtration Rate mL/min (>60) Glucose Level 165 MG/DL (74-106) #H Calcium Level 8.9 MG/DL (8.5-10.1) Iron Level 32 ug/dL (50-175) L Total Iron Binding Capacity 197 ug/dL (250-450) L Percent Iron Saturation 16 % (15-50) Unsaturated Iron Binding 165 ug/dL (112-346) Ferritin 75 NG/ML (8-388) Total Bilirubin 1.1 MG/DL (0.2-1.0) H Direct Bilirubin 0.3 MG/DL (0.0-0.3) Aspartate Amino Transf (AST/SGOT) 28 U/L (15-37) Alanine Aminotransferase (ALT/SGPT) 35 U/L (12-78) Alkaline Phosphatase 73 U/L (46-116) Total Protein 6.5 G/DL (6.4-8.2) Albumin 2.9 G/DL (3.4-5.0) L Globulin 3.6 g/dL Albumin/Globulin Ratio 0.8 (1.0-2.7) L Amylase Level 35 U/L (25-115) Lipase 63 U/L (73-393) L Carcinoembryonic Antigen Pending Vitamin B12 Level 1500 PG/ML (193-986) H Folate 17.5 NG/ML (8.6-58.9) Thyroid Stimulating Hormone (TSH) < 0.010 uiU/mL (0.358-3.740) Free Thyroxine 2.00 NG/DL (0.76-1.46) H Stool Occult Blood Pending Height (Feet): 6 Height (Inches): 0.00 Weight (Pounds): 180 Medications Current Medications Medications (Trade) Dose Ordered Sig/Levi Route PRN Reason Start Time Stop Time Status Last Admin Dose Admin Acetaminophen (Tylenol) 650 mg Q4H PRN ORAL fever 11/22/18 13:30 12/22/18 13:29 Al Hydroxide/Mg Hydroxide (Mylanta II) 30 ml Q6H PRN ORAL dyspepsia 11/22/18 13:30 12/22/18 13:29 Al Hydroxide/Mg Hydroxide (Mylanta) 15 ml Q1H PRN ORAL gi upset 11/23/18 06:45 11/23/18 18:00 Atropine Sulfate (Atropine) 0.5 mg Q5M PRN IV bpm less than 45 11/23/18 06:45 11/23/18 18:00 Ceftriaxone Sodium 1 gm/ Dextrose 55 ml @ 110 mls/hr Q24H IVPB 11/23/18 12:00 11/30/18 11:59 11/23/18 13:02 Dextrose (Dextrose 50%) 25 ml Q30M PRN IV Hypoglycemia 11/22/18 13:30 12/22/18 13:23 11/22/18 17:21 Dextrose (Dextrose 50%) 50 ml Q30M PRN IV hypoglycemia 11/22/18 13:30 12/22/18 13:29 Dextrose/Sodium Chloride 1,000 ml @ 75 mls/hr [id number] IV 11/22/18 13:16 12/22/18 13:15 11/23/18 05:16 Diphenhydramine HCl (Benadryl) 25 mg Q15M PRN IVP Itching 11/23/18 06:45 11/23/18 18:00 Diphenhydramine HCl (Benadryl) 25 mg Q6H PRN ORAL Itching/Pruritis 11/22/18 13:30 12/22/18 13:29 Fentanyl Citrate (Sublimaze 100 mcg/2 mL) 25 mcg Q10M PRN IV Moderate Pain (Pain Scale 4-6) 11/23/18 06:45 11/23/18 18:00 Finasteride (Proscar) 5 mg DAILY ORAL 11/22/18 19:45 12/22/18 19:44 11/23/18 09:29 Hydralazine HCl (Apresoline) 5 mg Q30M PRN IV SBP>160 OR___/DBP>90 OR___ 11/23/18 06:45 11/23/18 18:00 Hydralazine HCl (Apresoline) 50 mg Q6H PRN ORAL SBP > 160 11/22/18 17:30 12/22/18 17:29 11/23/18 09:29 Insulin Aspart (NovoLOG) BEFORE MEALS AND HS SUBQ 11/22/18 16:30 12/22/18 16:29 11/23/18 17:26 Irbesartan (Avapro) 150 mg DAILY ORAL 11/22/18 17:30 12/22/18 17:29 11/23/18 09:29 Midazolam HCl (Versed 2mg/2ml vial) 1 mg Q15M PRN IVP For Anxiety 11/23/18 06:45 11/23/18 18:00 Morphine Sulfate (Morphine Sulfate) 2 mg Q4H PRN IVP severe Pain (Pain Scale 7-10) 11/22/18 13:30 11/29/18 13:29 11/22/18 20:41 Nitroglycerin (Ntg) 0.4 mg Q5M X 3 DOSES PRN SL Prn Chest Pain 11/22/18 13:30 12/22/18 13:29 Ondansetron HCl (Zofran) 4 mg Q1H PRN IVP Nausea & Vomiting 11/23/18 06:45 11/23/18 18:00 Ondansetron HCl (Zofran) 4 mg Q6H PRN IVP Nausea & Vomiting 11/22/18 13:30 12/22/18 13:29 Polyethylene Glycol (Miralax) 17 gm HSPRN PRN ORAL Constipation 11/22/18 13:30 12/22/18 13:29 Tamsulosin HCl (Flomax) 0.4 mg BEDTIME ORAL 11/22/18 21:00 12/22/18 20:59 11/22/18 20:39 Temazepam (Restoril) 15 mg HSPRN PRN ORAL Insomnia 11/22/18 13:30 11/29/18 13:29 11/22/18 20:40 Assessment/Plan Problem List: (1) Altered level of consciousness Assessment & Plan: CT 11/22/18: Chronic and age-related changes is noted. 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 ICD Codes: R40.4 - Transient alteration of awareness SNOMED: 6821710 (2) Hypoglycemia ICD Codes: E16.2 - Hypoglycemia, unspecified SNOMED: 712596566 (3) Acute metabolic encephalopathy ICD Codes: G93.41 - Metabolic encephalopathy SNOMED: 53580460, 547746719 (4) Atrial arrhythmia ICD Codes: I49.8 - Other specified cardiac arrhythmias SNOMED: 28273313 (5) Altered mental status ICD Codes: R41.82 - Altered mental status, unspecified SNOMED: 822395205 (6) UTI (urinary tract infection) ICD Codes: N39.0 - Urinary tract infection, site not specified SNOMED: 39616181 (7) Diabetes mellitus ICD Codes: E11.9 - Type 2 diabetes mellitus without complications SNOMED: 47823943 (8) Anemia ICD Codes: D64.9 - Anemia, unspecified SNOMED: 266913777 (9) Alzheimer's dementia ICD Codes: G30.9 - Alzheimer's disease, unspecified; F02.80 - Dementia in other diseases classified elsewhere without behavioral disturbance SNOMED: 29882809 (10) Chronic cerebrovascular accident (CVA) Assessment & Plan: CT Brain w/o contrast : 11/22/18 Chronic and age-related changes is noted. 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 ICD Codes: R29.810 - Facial weakness SNOMED: 028200676 Bailey Appiah N.P. Nov 23, 2018 17:40
--- NOTE | 2018-11-23 18:10 | Cardiology Report ---
APPROVED REPORT EXAM: Two-dimensional and M-mode echocardiogram with Doppler and color Doppler. INDICATION Angina Pectoris M-Mode DIMENSIONS IVSd1.0 (0.7-1.1cm)Left Atrium (MM)2.9 (1.6-4.0cm) LVDd4.0 (3.5-5.6cm)Aortic Root2.1 (2.0-3.7cm) PWd1.3 (0.7-1.1cm)Aortic Cusp Exc.1.0 (1.5-2.0cm) IVSs1.4 cm LVDs2.8 (2.5-4.0cm) PWs1.5 cm Other Information Technically limited study due to poor acoustical windows . Normal left ventricular chamber size, systolic function and wall motion. Left ventricular ejection fraction estimated to be 50-55%. Mild left ventricular hypertrophy by 2-D. No evidence of pericardial effusion . All other cardiac chamber sizes are within normal limits. Aortic valve calcification with decreased cusp excursion c/w aortic stenosis. Mildly thickened mitral valve leaflets with normal excursion. Mild mitral annulus and aortic root calcification. Pulmonic valve not well visualized. IVC dilated at 2.3 cm without physiologic collapse suggestive of increased RA pressure. Pacemaker wire present in the right side chambers. A color flow and spectral Doppler study was performed and revealed: No aortic insufficiency . Peak aortic valve gradient of 29 mm Hg and a mean of 19 mmHg. Aortic valve area 1.3 cm2 calculated by continuity equation. Left ventricular diastolic function can not determined due to Arrhythmia. Trace mitral regurgitation. Trace tricuspid regurgitation. Tricuspid systolic velocities suggests peak right ventricular systolic pressure of 27mmHg.
--- NOTE | 2018-11-23 18:23 | Cardiology Report ---
APPROVED REPORT EKG Measurement Heart [id number] AR 224P [id number] AV sequential pacing
--- NOTE | 2018-11-23 19:30 | NUR ---
HAND-OFF: Report given to DONELL HOFFMANN. Reported to F/U for consent for from family member as Dr Allen order and NPO from mid night and F/U for prep order with [employer].
[2018-11-23] MEDS ORDERED: Magnesium Citrate Liq Btl ORAL SCH (19:45)
[2018-11-23] MEDS ORDERED: Polyethylene Glycol 238gm bottle ORAL SCH (19:45)
--- NOTE | 2018-11-23 19:45 | NUR ---
NURSE NOTES: Received a report from DONELL Hamilton. Pt is in stable condition. AAOX4. Able to make needs known. IV site is patent and intact. Bed in lowest position. Bed alarm is on. Call light within reach. Will continue to monitor.
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
[2018-11-23] MEDS: Tamsulosin 0.4mg cap ORAL SCH (21:39)
--- NOTE | 2018-11-23 21:53 | Pre-Procedure Note/Attestation ---
Pre-Procedure Note/Attestation Complete Prior to Procedure Planned Procedure: left Procedure Narrative: cysto, retrograde pyelogram, possible ureteroscopy, TURBT, fulguration, biopsy Indications for Procedure Pre-Operative Diagnosis: hematuria, hydronephrosis Attestation I attest that I discussed the nature of the procedure; its benefits; risks and complications; and alternatives (and the risks and benefits of such alternatives ), prior to the procedure, with the patient (or the patient's legal it sales representative). I attest that, if there was a reasonable possibility of needing a blood transfusion, the patient (or the patient's legal it sales representative) was given the [place] [facility] standardized written summary, pursuant to the [place] Blood Safety Act ([place] Health and Safety Code # 1645, as amended). I attest that I re-evaluated the patient just prior to the surgery and that there has been no change in the patient's H&P, except as documented below: cardiac cleared for surgery Macho Allen MD Nov 23, 2018 21:53
[2018-11-24] VITALS (21 sets, daily range): BP systolic 120–176; BP diastolic 52–88
[2018-11-24 00:20] LABS: CHOLESTEROL 109 MG/DL (< 200); HDL CHOLESTEROL 37 MG/DL (40-60); TRIGLYCERIDES 43 MG/DL (30-150)
[2018-11-24] MEDS: D5 1/2NS 1,000 ML IV SCH ×2 (01:21→17:53)
[2018-11-24 06:01] LABS: BASOPHILS % (AUTO) 0.8 % (0.0-2.0); HEMATOCRIT 30.5 % (42.0-52.0); HEMOGLOBIN 10.3 G/DL (14.2-18.0); LYMPHOCYTES % (AUTO) 14.7 % (20.0-45.0); MEAN CORPUSCULAR VOLUME 91 FL (80-99); MONOCYTES % (AUTO) 8.4 % (1.0-10.0); NEUTROPHILS % (AUTO) 76.1 % (45.0-75.0); PLATELET COUNT 145 K/UL (150-450); RED BLOOD COUNT 3.34 M/UL (4.70-6.10); RED CELL DISTRIBUTION WIDTH 11.7 % (11.6-14.8); WHITE BLOOD COUNT 7.8 K/UL (4.8-10.8)
[2018-11-24] MEDS: NovoLOG Insulin Flexpen SUBQ SCH ×4 (06:24→21:05)
[2018-11-24 06:44] LABS: ALANINE AMINOTRANSFERASE 30 U/L (12-78); ALBUMIN 2.7 G/DL (3.4-5.0); ALBUMIN/GLOBULIN RATIO 0.8 (1.0-2.7); ALKALINE PHOSPHATASE 65 U/L (46-116); ANION GAP 7 mmol/L (5-15); ASPARTATE AMINO TRANSFERASE 17 U/L (15-37); BILIRUBIN,TOTAL 0.6 MG/DL (0.2-1.0); BLOOD UREA NITROGEN 7 mg/dL (7-18); CALCIUM 8.7 MG/DL (8.5-10.1); CARBON DIOXIDE 28 MMOL/L (21-32); CHLORIDE 110 MMOL/L (98-107); PHOSPHORUS 2.9 MG/DL (2.5-4.9); POTASSIUM 3.3 MMOL/L (3.5-5.1); SODIUM 145 MMOL/L (136-145)
[2018-11-24] MEDS ORDERED: fentaNYL 100 mcg/2 mL IV ONE (06:49)
[2018-11-24] MEDS ORDERED: Propofol 200mg/20ml IV ONE ×2 (06:50→12:00)
[2018-11-24] MEDS ORDERED: Lidocaine 1% MPF 10mg/ml 5ml ONE ×2 (06:50→12:00)
--- NOTE | 2018-11-24 06:50 | NUR ---
NURSE NOTES: Pt went down for a procedure.
[2018-11-24] MEDS ORDERED: Iothalamate Meglumine 60% 30ML INJ ONE (06:59)
[2018-11-24] MEDS ORDERED: Sterile Water Irrig 1000ml IRRIG ONE (07:00)
[2018-11-24] MEDS ORDERED: NS Irrig 4000ml IRRIG ONE (07:00)
[2018-11-24] MEDS ORDERED: NS Irrig 1000ml ONE (07:00)
[2018-11-24] MEDS ORDERED: cefOXitin 1gm Inj ONE (07:01)
--- NOTE | 2018-11-24 07:02 | NUR ---
UNABLE TO PERFORM MRI DUE TO PT HAVING A PACEMAKER. RN HAS BEEN INFORMED. TJB [id number]
--- NOTE | 2018-11-24 07:07 | Urology Progress Note ---
Assessment/Plan Assessment: 1. Left hydronephrosis. 2. Hematuria. 3. Pyuria. 4. Proteinuria. 5. Benign prostatic hypertrophy. 6. Incontinence. 7. Neurogenic bladder. 8. Cystitis. Plan: monitor clinically plan cysto today d/w pt's granddaughter extensively and consent obtained case d/w primary service, GI cardiology eval noted, cleared for surgery, d/w Dr. Nicolas truong as ordered f/u on urine cx flomax and proscar Subjective Allergies: Coded Allergies: No Known Allergies (Unverified , 04/09/16) Subjective all noted, a bit confused, for cysto today Objective Last 24 Hour Vital Signs Date Time Temp Pulse Resp B/P (MAP) Pulse Ox O2 Delivery O2 Flow Rate FiO2 11/24/18 04:00 98.6 84 19 158/88 (111) 98 11/24/18 00:00 97.8 80 18 143/52 (82) 99 11/23/18 21:00 Room Air 11/23/18 20:01 98.3 83 16 155/78 (103) 99 11/23/18 16:00 98.1 85 18 142/81 (101) 99 11/23/18 12:00 97.1 80 14 148/68 (94) 98 11/23/18 10:00 158/78 (104) 11/23/18 09:29 168/80 11/23/18 09:29 168/80 11/23/18 09:00 Room Air 11/23/18 08:00 97.0 76 16 168/80 (109) 99 Intake and Output 11/23/18 11/24/18 19:00 07:00 Intake Total 2255 ml 375 ml Output Total 600 ml 1000 ml Balance 1655 ml -625 ml Intake Oral 1300 ml IV Total 955 ml 375 ml Output Urine Total 600 ml 1000 ml # Bowel Movements 1 3 Microbiology Date/Time Source Procedure Growth Status 11/22/18 11:15 Urine,Clean Catch Urine Culture - Preliminary NO GROWTH Resulted Current Medications Medications (Trade) Dose Ordered Sig/Levi Route PRN Reason Start Time Stop Time Status Last Admin Dose Admin Acetaminophen (Tylenol) 650 mg Q4H PRN ORAL fever 11/22/18 13:30 12/22/18 13:29 Al Hydroxide/Mg Hydroxide (Mylanta II) 30 ml Q6H PRN ORAL dyspepsia 11/22/18 13:30 12/22/18 13:29 Ceftriaxone Sodium 1 gm/ Dextrose 55 ml @ 110 mls/hr Q24H IVPB 11/23/18 12:00 11/30/18 11:59 11/23/18 13:02 Dextrose (Dextrose 50%) 25 ml Q30M PRN IV Hypoglycemia 11/22/18 13:30 12/22/18 13:23 11/22/18 17:21 Dextrose (Dextrose 50%) 50 ml Q30M PRN IV hypoglycemia 11/22/18 13:30 12/22/18 13:29 Dextrose/Sodium Chloride 1,000 ml @ 75 mls/hr [id number] IV 11/22/18 13:16 12/22/18 13:15 11/24/18 01:21 Diphenhydramine HCl (Benadryl) 25 mg Q6H PRN ORAL Itching/Pruritis 11/22/18 13:30 12/22/18 13:29 Finasteride (Proscar) 5 mg DAILY ORAL 11/22/18 19:45 12/22/18 19:44 11/23/18 09:29 Hydralazine HCl (Apresoline) 50 mg Q6H PRN ORAL SBP > 160 11/22/18 17:30 12/22/18 17:29 11/23/18 09:29 Insulin Aspart (NovoLOG) BEFORE MEALS AND HS SUBQ 11/22/18 16:30 12/22/18 16:29 11/23/18 21:42 Irbesartan (Avapro) 150 mg DAILY ORAL 11/22/18 17:30 12/22/18 17:29 11/23/18 09:29 Methimazole (Tapazole) 10 mg BID ORAL 11/24/18 09:00 12/24/18 08:59 Morphine Sulfate (Morphine Sulfate) 2 mg Q4H PRN IVP severe Pain (Pain Scale 7-10) 11/22/18 13:30 11/29/18 13:29 11/22/18 20:41 Nateglinide (Starlix) 60 mg TIAC ORAL 11/24/18 11:30 12/24/18 11:29 Nitroglycerin (Ntg) 0.4 mg Q5M X 3 DOSES PRN SL Prn Chest Pain 11/22/18 13:30 12/22/18 13:29 Ondansetron HCl (Zofran) 4 mg Q6H PRN IVP Nausea & Vomiting 11/22/18 13:30 12/22/18 13:29 Polyethylene Glycol (Miralax) 17 gm HSPRN PRN ORAL Constipation 11/22/18 13:30 12/22/18 13:29 Tamsulosin HCl (Flomax) 0.4 mg BEDTIME ORAL 11/22/18 21:00 12/22/18 20:59 11/23/18 21:39 Temazepam (Restoril) 15 mg HSPRN PRN ORAL Insomnia 11/22/18 13:30 11/29/18 13:29 11/22/18 20:40 Laboratory Tests 11/23/18 15:30: Stool Occult Blood [Pending] 11/23/18 23:50: Hemoglobin A1c 6.6H, Triglycerides Level 43, Cholesterol Level 109, LDL Cholesterol 62, HDL Cholesterol 37L, Cholesterol/HDL Ratio 2.9L 11/24/18 05:39: White Blood Count 7.8, Red Blood Count 3.34L, Hemoglobin 10.3L, Hematocrit 30.5L , Mean Corpuscular Volume 91, Mean Corpuscular Hemoglobin 30.9, Mean Corpuscular Hemoglobin Concent 33.9, Red Cell Distribution Width 11.7, Platelet Count 145L, Mean Platelet Volume 6.0L, Neutrophils (%) (Auto) 76.1H, Lymphocytes (%) (Auto) 14.7L, Monocytes (%) (Auto) 8.4, Eosinophils (%) (Auto) 0.0, Basophils (%) (Auto) 0.8, Erythrocyte Sedimentation Rate [Pending], Sodium Level 145, Potassium Level 3.3L, Chloride Level 110H, Carbon Dioxide Level 28, Anion Gap 7, Blood Urea Nitrogen 7, Creatinine 1.0, Estimat Glomerular Filtration Rate , Glucose Level 121H, Calcium Level 8.7, Phosphorus Level 2.9, Magnesium Level 1.7L, Total Bilirubin 0.6, Aspartate Amino Transf (AST/SGOT) 17 , Alanine Aminotransferase (ALT/SGPT) 30, Alkaline Phosphatase 65, C-Reactive Protein, Quantitative 2.7H, Total Protein 6.2L, Albumin 2.7L, Globulin 3.5, Albumin/Globulin Ratio 0.8L, Thyroid Stimulating Immunoglobulin [Pending], Thyroglobulin Antibody [Pending] Height (Feet): 6 Height (Inches): 6.00 Weight (Pounds): 182 Objective exam stable condom cath, urine slightly blood-tinged, wes Bamshad,Macho Oliver MD Nov 24, 2018 07:07
--- NOTE | 2018-11-24 07:10 | NUR ---
HAND-OFF: Report given to DONELL Alexander.
--- NOTE | 2018-11-24 08:03 | Anethesia Preoperative Eval ---
Anesthesia Pre-op PMH/ROS General Date of Evaluation: Nov 24, 2018 Time of Evaluation: 06:58 Anesthesiologist: Paulo ASA Score: ASA 3 Mallampati Score Class I : Soft palate, uvula, fauces, pillars visible Class II: Soft palate, uvula, fauces visible Class III: Soft palate, base of uvula visible Class IV: Only hard plate visible Mallampati Classification: Class III Surgeon: Tiffany Diagnosis: Hydronephrosis Surgical Procedure: Cysto Anesthesia History: none Family History: no anesthesia problems Allergies: Coded Allergies: No Known Allergies (Unverified , 04/09/16) Medications: see eMAR Patient NPO?: Yes NPO Date: Nov 24, 2018 NPO Time: 0000 Past Medical History Cardiovascular: Reports: HTN, arrhythmia - Pacer in place; Denies: CAD, CO, valve dz, other Pulmonary: Denies: asthma, COPD, VIO[place]TTE, other Gastrointestinal/Genitourinary: Reports: GERD, CRI, other - hematuria; Denies: ESRD 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: Reports: dementia; Denies: CVA, depression/anxiety, TIA, other Endocrine: Reports: DM, hypothyroidism; Denies: steroids, other HEENT: Denies: cataract (L), cataract (R), glaucoma, [place] (L), [place] (R), other Hematology/Immune: Reports: anemia - mild; Denies: DVT, bleeding disorder, other Musculoskeletal/Integumentary: Reports: other - contracted; Denies: OA, RA, DJD, DDD, edema PMH Narrative: as above PSxH Narrative: Pacemaker placement Anesthesia Pre-op Phys. Exam Physician Exam Last Vital Signs Date Time Temp Pulse Resp B/P (MAP) Pulse Ox O2 Delivery O2 Flow Rate FiO2 11/24/18 04:00 98.6 84 19 158/88 (111) 98 11/23/18 21:00 Room Air Constitutional: NAD Neurologic: other - unable to obtaine Cardiovascular: RRR, no M/R/G Respiratory: CTA Gastrointestinal: S/NT/ND Airway Exam Mallampati Score: Class III MO: limited Neck: stiff ROM: limited Teeth: missing Dentures: no upper, no lower Anesthesia Pre-op A/P Labs Hematology Test 11/24/18 05:39 White Blood Count 7.8 K/UL (4.8-10.8) Red Blood Count 3.34 M/UL (4.70-6.10) L Hemoglobin 10.3 G/DL (14.2-18.0) L Hematocrit 30.5 % (42.0-52.0) L Mean Corpuscular Volume 91 FL (80-99) Mean Corpuscular Hemoglobin 30.9 PG (27.0-31.0) Mean Corpuscular Hemoglobin Concent 33.9 G/DL (32.0-36.0) Red Cell Distribution Width 11.7 % (11.6-14.8) Platelet Count 145 K/UL (150-450) L Mean Platelet Volume 6.0 FL (6.5-10.1) L Neutrophils (%) (Auto) 76.1 % (45.0-75.0) H Lymphocytes (%) (Auto) 14.7 % (20.0-45.0) L Monocytes (%) (Auto) 8.4 % (1.0-10.0) Eosinophils (%) (Auto) 0.0 % (0.0-3.0) Basophils (%) (Auto) 0.8 % (0.0-2.0) Erythrocyte Sedimentation Rate 72 MM/HR (0-20) H Chemistry Test 11/23/18 23:50 11/24/18 05:39 Hemoglobin A1c 6.6 % (4.3-6.0) H Triglycerides Level 43 MG/DL (30-150) Cholesterol Level 109 MG/DL (< 200) LDL Cholesterol 62 mg/dL (<100) HDL Cholesterol 37 MG/DL (40-60) L Cholesterol/HDL Ratio 2.9 (3.3-4.4) L Sodium Level 145 MMOL/L (136-145) Potassium Level 3.3 MMOL/L (3.5-5.1) L Chloride Level 110 MMOL/L (98-107) H Carbon Dioxide Level 28 MMOL/L (21-32) Anion Gap 7 mmol/L (5-15) Blood Urea Nitrogen 7 mg/dL (7-18) Creatinine 1.0 MG/DL (0.55-1.30) Estimat Glomerular Filtration Rate mL/min (>60) Glucose Level 121 MG/DL (74-106) H Calcium Level 8.7 MG/DL (8.5-10.1) Phosphorus Level 2.9 MG/DL (2.5-4.9) Magnesium Level 1.7 MG/DL (1.8-2.4) L Total Bilirubin 0.6 MG/DL (0.2-1.0) Aspartate Amino Transf (AST/SGOT) 17 U/L (15-37) Alanine Aminotransferase (ALT/SGPT) 30 U/L (12-78) Alkaline Phosphatase 65 U/L (46-116) C-Reactive Protein, Quantitative 2.7 mg/dL (0.00-0.90) H Total Protein 6.2 G/DL (6.4-8.2) L Albumin 2.7 G/DL (3.4-5.0) L Globulin 3.5 g/dL Albumin/Globulin Ratio 0.8 (1.0-2.7) L Thyroid Stimulating Immunoglobulin Pending Studies Pre-op Studies: echo - EF 50-55% Risk Assessment & Plan Assessment: ASA 3 Plan: GA with LMA Status Change Before Surgery: No Pre-Antibiotics Drug: Cefoxitin 1gr. Given Within 1 Hr of Incision: Yes Time Given: 07:45 Scottie Bates MD Nov 24, 2018 08:03
[2018-11-24] MEDS ORDERED: DiphenhydrAMINE 50mg/ml Inj IVP PRN (08:15)
[2018-11-24] MEDS ORDERED: fentaNYL 100 mcg/2 mL IV PRN (08:15)
[2018-11-24] MEDS ORDERED: Glycopyrrolate 0.2mg/ml 1ml Vial ONE (08:37)
--- NOTE | 2018-11-24 08:45 | Brief Operative Note ---
Immediate Post Operative Note Operative Note Pre-op Diagnosis: hematuria, hydronephrosis Procedure: cysto, TURBT/fulguration, right retrograde pyelogram Post-op Diagnosis: same as pre-op plus - large bladder tumor Findings: other - large bladder tumor, left ureteral orifice compeltely obliterated Surgeon: renetta Anesthesiologist: renita Anesthesia: general Specimen: yes Complications: none Condition: stable Fluids: NS Estimated Blood Loss: minimal Implant(s) used?: No Macho Allen MD Nov 24, 2018 08:45
--- NOTE | 2018-11-24 09:03 | Immediate Post-Op Evaluation ---
Immediate Post-Op Evalulation Immediate Post-Op Evalulation Procedure: Cysto Resection of bladder tumor Date of Evaluation: Nov 24, 2018 Time of Evaluation: 09:02 IV Fluids: 400 Blood Products: none Estimated Blood Loss: min Urinary Output: n/a Blood Pressure Systolic: 164 Blood Pressure Diastolic: 76 Pulse Rate: 68 Respiratory Rate: 20 O2 Sat by Pulse Oximetry: 98 Temperature (Fahrenheit): 97.3 Pain Score (1-10): 2 Nausea: No Vomiting: No Complications none Patient Status: reacts, patent, none Hydration Status: adequate Scottie Bates MD Nov 24, 2018 09:03
[2018-11-24] MEDS: Irbesartan 150mg tablet ORAL SCH (10:00)
--- NOTE | 2018-11-24 10:00 | NUR ---
NURSE NOTES: Received pt from DONELL RUDOLPH. pt is confused and orient x3. pt has NC 2LMP. Pt has Robertson cath in place is running well, the urine is reddish, Dr IVEY is aware. pt has intact iv access LFA 20G is running well. pt is still NPO. All needs attended, bed is locked and is in the lowest position, call light within easy reach. will continue to monitor.
--- NOTE | 2018-11-24 10:00 | NUR ---
NURSE NOTES: pt is transferring to GI LAB. Dr loo is aware about BP, K, No new order. Addendum: 11/24/18 at 1640 by Catherine Santos RN ERROR: Pt transferred at 1145.
[2018-11-24] MEDS: Nateglinide 60mg tab ORAL SCH ×2 (11:30→17:53)
--- NOTE | 2018-11-24 11:48 | Pre-Procedure Note/Attestation ---
Pre-Procedure Note/Attestation Complete Prior to Procedure Planned Procedure: not applicable Procedure Narrative: egd/colonoscopy Indications for Procedure Pre-Operative Diagnosis: gib Attestation I attest that I discussed the nature of the procedure; its benefits; risks and complications; and alternatives (and the risks and benefits of such alternatives ), prior to the procedure, with the patient (or the patient's legal senior account representative). I attest that, if there was a reasonable possibility of needing a blood transfusion, the patient (or the patient's legal senior account representative) was given the [facility] standardized written summary, pursuant to the [place] Blood Safety Act ([place] Health and Safety Code # 1645, as amended). I attest that I re-evaluated the patient just prior to the surgery and that there has been no change in the patient's H&P, except as documented below: Prince Hernandez MD Nov 24, 2018 11:48
--- NOTE | 2018-11-24 11:56 | Pulmonology Progress Note ---
Assessment/Plan Problems: (1) Lower GI bleed (2) Hydronephrosis (3) Anemia (4) Bladder neoplasm (5) Chronic cerebrovascular accident (CVA) (6) Diabetes mellitus (7) Alzheimer's dementia (8) HTN (hypertension) Assessment/Plan tolerated cystoscopy follow up with pathology looks comfortable sliding scale monitor bp prbc prn check H/H dvt prophylaxis. Subjective ROS Limited/Unobtainable: No Interval Events: tolerated cystoscopy well Allergies: Coded Allergies: No Known Allergies (Unverified , 04/09/16) Objective Last 24 Hour Vital Signs Date Time Temp Pulse Resp B/P (MAP) Pulse Ox O2 Delivery O2 Flow Rate FiO2 11/24/18 09:50 97.8 64 15 164/68 100 Nasal Cannula 3 11/24/18 09:45 61 14 158/69 100 Nasal Cannula 3 11/24/18 09:40 60 15 168/68 100 Nasal Cannula 3 11/24/18 09:30 63 14 176/73 100 Simple Mask 6 11/24/18 09:20 64 13 169/74 100 Simple Mask 6 11/24/18 09:10 67 14 171/69 100 Simple Mask 6 11/24/18 09:05 68 16 175/68 100 Simple Mask 6 11/24/18 09:03 68 20 98 11/24/18 09:00 Nasal Cannula 2.0 11/24/18 08:58 97.6 68 20 162/72 100 Simple Mask 6 11/24/18 04:00 98.6 84 19 158/88 (111) 98 11/24/18 00:00 97.8 80 18 143/52 (82) 99 11/23/18 21:00 Room Air 11/23/18 20:01 98.3 83 16 155/78 (103) 99 11/23/18 16:00 98.1 85 18 142/81 (101) 99 11/23/18 12:00 97.1 80 14 148/68 (94) 98 Intake and Output 11/23/18 11/24/18 19:00 07:00 Intake Total 2255 ml 375 ml Output Total 600 ml 1000 ml Balance 1655 ml -625 ml Intake Oral 1300 ml IV Total 955 ml 375 ml Output Urine Total 600 ml 1000 ml # Bowel Movements 1 3 General Appearance: cachetic HEENT: normocephalic, anicteric Respiratory/Chest: chest wall non-tender, lungs clear Cardiovascular: normal peripheral pulses, regular rhythm Abdomen: normal bowel sounds, no organomegaly Genitourinary: normal external genitalia Extremities: no clubbing Skin: no ulcers 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: abnormal gait Lymphatic: no neck adenopathy Microbiology Date/Time Source Procedure Growth Status 11/22/18 12:20 Nasal Nares MRSA Culture - Final NO METHICILLIN RESISTANT STAPH AUREUS... Complete 11/22/18 11:15 Urine,Clean Catch Urine Culture - Preliminary YEAST Resulted 11/22/18 12:20 Rectal Mucosa VRE Culture - Final NO VANCOMYCIN RESISTANT ENTEROCOCCUS ... Complete 11/22/18 12:20 Rectal Mucosa - Final NO CARBAPENEM-RESISTANT ENTEROBACTERI... Complete Laboratory Tests 11/23/18 15:30: Stool Occult Blood Negative 11/23/18 23:50: Hemoglobin A1c 6.6H, Triglycerides Level 43, Cholesterol Level 109, LDL Cholesterol 62, HDL Cholesterol 37L, Cholesterol/HDL Ratio 2.9L 11/24/18 05:39: White Blood Count 7.8, Red Blood Count 3.34L, Hemoglobin 10.3L, Hematocrit 30.5L , Mean Corpuscular Volume 91, Mean Corpuscular Hemoglobin 30.9, Mean Corpuscular Hemoglobin Concent 33.9, Red Cell Distribution Width 11.7, Platelet Count 145L, Mean Platelet Volume 6.0L, Neutrophils (%) (Auto) 76.1H, Lymphocytes (%) (Auto) 14.7L, Monocytes (%) (Auto) 8.4, Eosinophils (%) (Auto) 0.0, Basophils (%) (Auto) 0.8, Erythrocyte Sedimentation Rate 72H, Sodium Level 145, Potassium Level 3.3L, Chloride Level 110H, Carbon Dioxide Level 28, Anion Gap 7, Blood Urea Nitrogen 7, Creatinine 1.0, Estimat Glomerular Filtration Rate , Glucose Level 121H, Calcium Level 8.7, Phosphorus Level 2.9, Magnesium Level 1.7L, Total Bilirubin 0.6, Aspartate Amino Transf (AST/SGOT) 17, Alanine Aminotransferase (ALT/SGPT) 30, Alkaline Phosphatase 65, C-Reactive Protein, Quantitative 2.7H, Total Protein 6.2L, Albumin 2.7L, Globulin 3.5, Albumin/ Globulin Ratio 0.8L, Thyroid Stimulating Immunoglobulin [Pending], Thyroglobulin Antibody [Pending] Current Medications Medications (Trade) Dose Ordered Sig/Levi Route PRN Reason Start Time Stop Time Status Last Admin Dose Admin Acetaminophen (Tylenol) 650 mg Q4H PRN ORAL fever 11/22/18 13:30 12/22/18 13:29 Al Hydroxide/Mg Hydroxide (Mylanta II) 30 ml Q6H PRN ORAL dyspepsia 11/22/18 13:30 12/22/18 13:29 Ceftriaxone Sodium 1 gm/ Dextrose 55 ml @ 110 mls/hr Q24H IVPB 11/23/18 12:00 11/30/18 11:59 11/23/18 13:02 Dextrose (Dextrose 50%) 25 ml Q30M PRN IV Hypoglycemia 11/22/18 13:30 12/22/18 13:23 11/22/18 17:21 Dextrose (Dextrose 50%) 50 ml Q30M PRN IV hypoglycemia 11/22/18 13:30 12/22/18 13:29 Dextrose/Sodium Chloride 1,000 ml @ 75 mls/hr [id number] IV 11/22/18 13:16 12/22/18 13:15 11/24/18 01:21 Diphenhydramine HCl (Benadryl) 25 mg Q15M PRN IVP Itching 11/24/18 08:15 11/24/18 13:00 Diphenhydramine HCl (Benadryl) 25 mg Q6H PRN ORAL Itching/Pruritis 11/22/18 13:30 12/22/18 13:29 Fentanyl Citrate (Sublimaze 100 mcg/2 mL) 25 mcg Q10M PRN IV Moderate Pain (Pain Scale 4-6) 11/24/18 08:15 11/24/18 13:00 Finasteride (Proscar) 5 mg DAILY ORAL 11/22/18 19:45 12/22/18 19:44 11/23/18 09:29 Hydralazine HCl (Apresoline) 50 mg Q6H PRN ORAL SBP > 160 11/22/18 17:30 12/22/18 17:29 11/23/18 09:29 Insulin Aspart (NovoLOG) BEFORE MEALS AND HS SUBQ 11/22/18 16:30 12/22/18 16:29 11/23/18 21:42 Irbesartan (Avapro) 150 mg DAILY ORAL 11/22/18 17:30 12/22/18 17:29 11/23/18 09:29 Methimazole (Tapazole) 10 mg BID ORAL 11/24/18 09:00 12/24/18 08:59 Morphine Sulfate (Morphine Sulfate) 2 mg Q4H PRN IVP severe Pain (Pain Scale 7-10) 11/22/18 13:30 11/29/18 13:29 11/22/18 20:41 Nateglinide (Starlix) 60 mg TIAC ORAL 11/24/18 11:30 12/24/18 11:29 Nitroglycerin (Ntg) 0.4 mg Q5M X 3 DOSES PRN SL Prn Chest Pain 11/22/18 13:30 12/22/18 13:29 Ondansetron HCl (Zofran) 4 mg Q1H PRN IVP Nausea & Vomiting 11/24/18 08:15 11/24/18 13:00 Ondansetron HCl (Zofran) 4 mg Q6H PRN IVP Nausea & Vomiting 11/22/18 13:30 12/22/18 13:29 Polyethylene Glycol (Miralax) 17 gm HSPRN PRN ORAL Constipation 11/22/18 13:30 12/22/18 13:29 Potassium Chloride 100 ml @ 100 mls/hr Q1H IVPB 11/24/18 12:00 11/24/18 15:59 UNV Sodium Chloride 1,000 ml @ 10 mls/hr Q24H IVLG 11/24/18 08:04 11/24/18 13:00 Tamsulosin HCl (Flomax) 0.4 mg BEDTIME ORAL 11/22/18 21:00 12/22/18 20:59 11/23/18 21:39 Temazepam (Restoril) 15 mg HSPRN PRN ORAL Insomnia 11/22/18 13:30 11/29/18 13:29 11/22/18 20:40 Og Hinkle MD Nov 24, 2018 11:56
[2018-11-24] MEDS ORDERED: Phenylephrine 10mg/ml Vial ONE (12:00)
[2018-11-24] MEDS ORDERED: NS 500ML IVPB ONE (12:10)
--- NOTE | 2018-11-24 12:18 | Endoscopy Procedure Note ---
Endoscopy Procedure Note General Indication for Procedure: anemia, GIB Procedures Performed: EGD, colonoscopy Operative Findings/Diagnosis: gastritis, hemorrhoids Specimen: yes Pt Tolerated Procedure Well: Yes Estimated Blood Loss: none Anesthesia Anesthesiologist: macie Anesthesia: MAC Inserted Devices Implant(s) used?: No GI Core Measures 50 yrs or older w/o bx or poly: Not Applicable 10yrs. F/U not recommended: Not Applicable Prince Hernandez MD Nov 24, 2018 12:18
--- NOTE | 2018-11-24 12:31 | Anethesia Preoperative Eval ---
Anesthesia Pre-op PMH/ROS General Date of Evaluation: Nov 24, 2018 Time of Evaluation: 12:00 Anesthesiologist: Awilda Yarbrough CRNA ASA Score: ASA 3 Mallampati Score Class I : Soft palate, uvula, fauces, pillars visible Class II: Soft palate, uvula, fauces visible Class III: Soft palate, base of uvula visible Class IV: Only hard plate visible Mallampati Classification: Class III Surgeon: David Diagnosis: GI bleeding Surgical Procedure: EGD, colonosccopy Anesthesia History: none Social History: smoking Family History: no anesthesia problems Allergies: Coded Allergies: No Known Allergies (Unverified , 04/09/16) Patient NPO?: Yes NPO Date: Nov 24, 2018 NPO Time: 0000 Past Medical History Cardiovascular: Reports: HTN, CAD, arrhythmia - paced AV dissociation syndrome Pulmonary: Reports: other; Denies: asthma, COPD, VIOLETTE Gastrointestinal/Genitourinary: Reports: other - bladder CA; Denies: GERD, CRI, ESRD 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: Reports: dementia, CVA; Denies: depression/anxiety, TIA, other Endocrine: Denies: DM, hypothyroidism, steroids, other HEENT: Reports: cataract (L), cataract (R), glaucoma; Denies: [place] (L), [place] (R), other Hematology/Immune: Reports: anemia; Denies: DVT, bleeding disorder, other Musculoskeletal/Integumentary: Reports: OA; Denies: RA, DJD, DDD, edema, other PMH Narrative: as noted above PSxH Narrative: see H & P Anesthesia Pre-op Phys. Exam Physician Exam Last Vital Signs Date Time Temp Pulse Resp B/P (MAP) Pulse Ox O2 Delivery O2 Flow Rate FiO2 11/24/18 09:50 97.8 64 15 164/68 100 Nasal Cannula 3 Constitutional: NAD Neurologic: other - dementia Cardiovascular: RRR Respiratory: CTA Gastrointestinal: S/NT/ND Airway Exam Mallampati Score: Class III MO: full Neck: FROM TMD: > 3 FB ROM: full Teeth: missing Dentures: no upper, no lower Anesthesia Pre-op A/P Labs Hematology Test 11/24/18 05:39 White Blood Count 7.8 K/UL (4.8-10.8) Red Blood Count 3.34 M/UL (4.70-6.10) L Hemoglobin 10.3 G/DL (14.2-18.0) L Hematocrit 30.5 % (42.0-52.0) L Mean Corpuscular Volume 91 FL (80-99) Mean Corpuscular Hemoglobin 30.9 PG (27.0-31.0) Mean Corpuscular Hemoglobin Concent 33.9 G/DL (32.0-36.0) Red Cell Distribution Width 11.7 % (11.6-14.8) Platelet Count 145 K/UL (150-450) L Mean Platelet Volume 6.0 FL (6.5-10.1) L Neutrophils (%) (Auto) 76.1 % (45.0-75.0) H Lymphocytes (%) (Auto) 14.7 % (20.0-45.0) L Monocytes (%) (Auto) 8.4 % (1.0-10.0) Eosinophils (%) (Auto) 0.0 % (0.0-3.0) Basophils (%) (Auto) 0.8 % (0.0-2.0) Erythrocyte Sedimentation Rate 72 MM/HR (0-20) H Chemistry Test 11/23/18 23:50 11/24/18 05:39 Hemoglobin A1c 6.6 % (4.3-6.0) H Triglycerides Level 43 MG/DL (30-150) Cholesterol Level 109 MG/DL (< 200) LDL Cholesterol 62 mg/dL (<100) HDL Cholesterol 37 MG/DL (40-60) L Cholesterol/HDL Ratio 2.9 (3.3-4.4) L Sodium Level 145 MMOL/L (136-145) Potassium Level 3.3 MMOL/L (3.5-5.1) L Chloride Level 110 MMOL/L (98-107) H Carbon Dioxide Level 28 MMOL/L (21-32) Anion Gap 7 mmol/L (5-15) Blood Urea Nitrogen 7 mg/dL (7-18) Creatinine 1.0 MG/DL (0.55-1.30) Estimat Glomerular Filtration Rate mL/min (>60) Glucose Level 121 MG/DL (74-106) H Calcium Level 8.7 MG/DL (8.5-10.1) Phosphorus Level 2.9 MG/DL (2.5-4.9) Magnesium Level 1.7 MG/DL (1.8-2.4) L Total Bilirubin 0.6 MG/DL (0.2-1.0) Aspartate Amino Transf (AST/SGOT) 17 U/L (15-37) Alanine Aminotransferase (ALT/SGPT) 30 U/L (12-78) Alkaline Phosphatase 65 U/L (46-116) C-Reactive Protein, Quantitative 2.7 mg/dL (0.00-0.90) H Total Protein 6.2 G/DL (6.4-8.2) L Albumin 2.7 G/DL (3.4-5.0) L Globulin 3.5 g/dL Albumin/Globulin Ratio 0.8 (1.0-2.7) L Thyroid Stimulating Immunoglobulin Pending Studies Pre-op Studies: EKG - Paced, echo - LVEF 50-55% Risk Assessment & Plan Assessment: ASA 3, ok to proceed Plan: MAC Status Change Before Surgery: No Pre-Antibiotics Given Within 1 Hr of Incision: No Awilad Yarbrough CRNA Nov 24, 2018 12:31
--- NOTE | 2018-11-24 12:45 | Immediate Post-Op Evaluation ---
Immediate Post-Op Evalulation Immediate Post-Op Evalulation Procedure: EGD, colonoscopy, polypectomy Date of Evaluation: Nov 24, 2018 Time of Evaluation: 12:38 IV Fluids: 0.9 NS 200 ml Blood Pressure Systolic: 120 Blood Pressure Diastolic: 56 Pulse Rate: 79 Respiratory Rate: 16 O2 Sat by Pulse Oximetry: 100 Temperature (Fahrenheit): 97.1 Pain Score (1-10): 0 Nausea: No Vomiting: No Complications none Patient Status: reacts, patent Hydration Status: adequate Given Within 1 Hr of Incision: Awilda Mullins CRNA Nov 24, 2018 12:44
--- NOTE | 2018-11-24 13:00 | NUR ---
NURSE NOTES: Received pt from [facility]. pt is confused and orient x3. pt has NC 2LMP. Pt has Robertson cath in place is running well, the urine is reddish, Dr MAN is aware. pt has intact iv access LFA 20G is running well. pt has regular diet, consumed 80% of lunch and tolerate well. All needs attended, bed is locked and is in the lowest position, call light within easy reach. will continue to monitor.
--- NOTE | 2018-11-24 13:18 | NUR ---
SWALLOW STATUS AND PLAN: SWALLOW/SPEECH THERAPY NOTE: NOT AVAILABLE DUE TO GI PROCEDURES: EGD, colonoscopy, polypectomy STILL ON CLEAR LIQUIDS rocedure: EGD, colonoscopy, polypectomy SEE TOMORROW ORDER FOR MOD BARIUM SWALLOW STUDY SIGNED BY ILEANA
[2018-11-24] MEDS: cefTRIAXone 1 GM in D5W 55 ML IVPB SCH (14:50)
--- NOTE | 2018-11-24 15:54 | Diagnostic Imaging Report ---
Indication: Palpable mass on physical exam. Technique: Multiplanar grayscale and color Doppler imaging of the thyroid Comparison: None Findings: The right lobe of the thyroid measures 4.4 x 1.3 x 2.1 cm. The left lobe of thyroid measures 5.2 x 1.7 x 2.2 cm. The isthmus is poorly evaluated but measures grossly 5 mm in thickness. Thyroid echogenicity appears homogeneous. Neither thyroid lobe appears hyperemic. Blood flow appears symmetric and within normal limits bilaterally. No discrete thyroid nodules identified. IMPRESSION: Suboptimal visualization of the thyroid isthmus. Otherwise unremarkable thyroid ultrasound. Bilateral thyroid lobes within normal limits for size and with homogenous echogenicity. No discrete thyroid nodules identified.
--- NOTE | 2018-11-24 16:00 | NUR ---
NURSE NOTES: CALLED [facility] COORDINATOR SOCRATESJENY PH: [phone] to notify her MRI HASN'T DONE DUE TO PACE MAKER, LEFT MASSAGE WAITING TO CALL BACK.
--- NOTE | 2018-11-24 18:15 | Consultation ---
DATE OF CONSULTATION: 11/24/2018 ENDOCRINOLOGY CONSULTATION CONSULTING PHYSICIAN: Kashif Adorno M.D. REFERRING PHYSICIAN: Jaziel Lowe M.D. REASON FOR CONSULTATION: 1. Diabetes management. 2. Abnormal thyroid function test. HISTORY OF PRESENT ILLNESS: The patient is an 83-year-old male who is a poor historian. The information obtained was from review of the patient's chart of [facility] as well as review of the [facility] chart. The patient presented to the hospital via emergency department after complaint of having blood in his stool. Upon evaluation, the patient's thyroid function was obtained, which showed undetectable for TSH and elevated free T4 of 2.0. The patient has no history of thyroid disease. On review of his medical record at [facility] on his recent admission in September showed that he had normal thyroid function in September 2018. PAST MEDICAL HISTORY: 1. Type 2 diabetes. 2. Dementia. 3. Hypertension. 4. History of AV dissociation with conduction, status post pacemaker placement. PAST SURGICAL HISTORY: Pacemaker placement. MEDICATIONS: Reviewed and reconciled. ALLERGIES TO MEDICATIONS: None. SOCIAL HISTORY: No smoking, alcohol, or drug use. FAMILY HISTORY: Noncontributory. REVIEW OF SYSTEMS: Difficult to obtain. PHYSICAL EXAMINATION: VITAL SIGNS: Blood pressure 158/88, pulse 84, temperature 98.6, and respiratory rate of 34. HEENT: Pupils equal and reactive to light. Sclerae anicteric. NECK: No JVD. Thyroid is palpable and firm. HEART: Regular. LUNGS: Clear. ABDOMEN: Positive bowel sounds. EXTREMITIES: With trace edema. LABORATORY VALUES: Sodium 144, potassium 3.3, chloride 106, bicarbonate 28, BUN 9, creatinine 1.0, and glucose 165. TSH is undetectable. Free T4 is 2.0. DIAGNOSES: 1. New-onset hyperthyroidism. 2. Diabetes. PLAN: 1. Start Starlix 60 mg before each meal. 2. Continue NovoLog sliding scale before meals and at bedtime. 3. Start methimazole 10 mg b.i.d. 4. Check thyroid-stimulating immunoglobulin as well as thyroid peroxidase antibody to rule out Graves. 5. Thyroid ultrasound will be obtained in order to evaluate the thyroid anatomy. I will follow the results and further recommend. Thank you, Dr. Lowe, for the courtesy of this consultation. Kashif Adorno M.D. DR: CAIN JOB#: [id number] CC: LAZARO
--- NOTE | 2018-11-24 19:06 | Internal Med Progress Note ---
Subjective Date of Service: Nov 24, 2018 Physician Name Jean-Claude Peter Attending Physician Jaziel Lowe MD Current Medications Medications (Trade) Dose Ordered Sig/Levi Route PRN Reason Start Time Stop Time Status Last Admin Dose Admin Acetaminophen (Tylenol) 650 mg Q4H PRN ORAL fever 11/22/18 13:30 12/22/18 13:29 Al Hydroxide/Mg Hydroxide (Mylanta II) 30 ml Q6H PRN ORAL dyspepsia 11/22/18 13:30 12/22/18 13:29 Ceftriaxone Sodium 1 gm/ Dextrose 55 ml @ 110 mls/hr Q24H IVPB 11/23/18 12:00 11/30/18 11:59 11/24/18 14:50 Dextrose (Dextrose 50%) 25 ml Q30M PRN IV Hypoglycemia 11/22/18 13:30 12/22/18 13:23 11/22/18 17:21 Dextrose (Dextrose 50%) 50 ml Q30M PRN IV hypoglycemia 11/22/18 13:30 12/22/18 13:29 Dextrose/Sodium Chloride 1,000 ml @ 75 mls/hr [id number] IV 11/22/18 13:16 12/22/18 13:15 11/24/18 17:53 Diphenhydramine HCl (Benadryl) 25 mg Q6H PRN ORAL Itching/Pruritis 11/22/18 13:30 12/22/18 13:29 Finasteride (Proscar) 5 mg DAILY ORAL 11/22/18 19:45 12/22/18 19:44 11/23/18 09:29 Hydralazine HCl (Apresoline) 50 mg Q6H PRN ORAL SBP > 160 11/22/18 17:30 12/22/18 17:29 11/23/18 09:29 Insulin Aspart (NovoLOG) BEFORE MEALS AND HS SUBQ 11/22/18 16:30 12/22/18 16:29 11/24/18 17:50 Irbesartan (Avapro) 150 mg DAILY ORAL 11/22/18 17:30 12/22/18 17:29 11/23/18 09:29 Methimazole (Tapazole) 10 mg BID ORAL 11/24/18 09:00 12/24/18 08:59 11/24/18 17:48 Morphine Sulfate (Morphine Sulfate) 2 mg Q4H PRN IVP severe Pain (Pain Scale 7-10) 11/22/18 13:30 11/29/18 13:29 11/22/18 20:41 Nateglinide (Starlix) 60 mg TIAC ORAL 11/24/18 11:30 12/24/18 11:29 11/24/18 17:53 Nitroglycerin (Ntg) 0.4 mg Q5M X 3 DOSES PRN SL Prn Chest Pain 11/22/18 13:30 12/22/18 13:29 Ondansetron HCl (Zofran) 4 mg Q6H PRN IVP Nausea & Vomiting 11/22/18 13:30 12/22/18 13:29 Polyethylene Glycol (Miralax) 17 gm HSPRN PRN ORAL Constipation 11/22/18 13:30 12/22/18 13:29 Potassium Chloride (K-Dur) 40 meq ONCE ORAL 11/24/18 22:00 11/24/18 23:00 Tamsulosin HCl (Flomax) 0.4 mg BEDTIME ORAL 11/22/18 21:00 12/22/18 20:59 11/23/18 21:39 Temazepam (Restoril) 15 mg HSPRN PRN ORAL Insomnia 11/22/18 13:30 11/29/18 13:29 11/22/18 20:40 Allergies: Coded Allergies: No Known Allergies (Unverified , 04/09/16) ROS Limited/Unobtainable: No Constitutional: Reports: no symptoms HEENT: Reports: no symptoms Cardiovascular: Reports: no symptoms Respiratory: Reports: no symptoms Gastrointestinal/Abdominal: Reports: rectal bleeding Genitourinary: Reports: no symptoms 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: Reports: no symptoms Subjective 83 YO M admitted with gastrointestinal hemorrhage. Await endoscopy and colonoscopy. Cover for Int Uriel-Dr Lowe Objective Last Vital Signs Date Time Temp Pulse Resp B/P (MAP) Pulse Ox O2 Delivery O2 Flow Rate FiO2 11/24/18 16:00 97.7 95 19 147/68 (94) 100 11/24/18 13:00 Nasal Cannula 3 Laboratory Tests Test 11/23/18 23:50 11/24/18 05:39 Hemoglobin A1c 6.6 % (4.3-6.0) H Triglycerides Level 43 MG/DL (30-150) Cholesterol Level 109 MG/DL (< 200) LDL Cholesterol 62 mg/dL (<100) HDL Cholesterol 37 MG/DL (40-60) L Cholesterol/HDL Ratio 2.9 (3.3-4.4) L White Blood Count 7.8 K/UL (4.8-10.8) Red Blood Count 3.34 M/UL (4.70-6.10) L Hemoglobin 10.3 G/DL (14.2-18.0) L Hematocrit 30.5 % (42.0-52.0) L Mean Corpuscular Volume 91 FL (80-99) Mean Corpuscular Hemoglobin 30.9 PG (27.0-31.0) Mean Corpuscular Hemoglobin Concent 33.9 G/DL (32.0-36.0) Red Cell Distribution Width 11.7 % (11.6-14.8) Platelet Count 145 K/UL (150-450) L Mean Platelet Volume 6.0 FL (6.5-10.1) L Neutrophils (%) (Auto) 76.1 % (45.0-75.0) H Lymphocytes (%) (Auto) 14.7 % (20.0-45.0) L Monocytes (%) (Auto) 8.4 % (1.0-10.0) Eosinophils (%) (Auto) 0.0 % (0.0-3.0) Basophils (%) (Auto) 0.8 % (0.0-2.0) Erythrocyte Sedimentation Rate 72 MM/HR (0-20) H Sodium Level 145 MMOL/L (136-145) Potassium Level 3.3 MMOL/L (3.5-5.1) L Chloride Level 110 MMOL/L (98-107) H Carbon Dioxide Level 28 MMOL/L (21-32) Anion Gap 7 mmol/L (5-15) Blood Urea Nitrogen 7 mg/dL (7-18) Creatinine 1.0 MG/DL (0.55-1.30) Estimat Glomerular Filtration Rate mL/min (>60) Glucose Level 121 MG/DL (74-106) H Calcium Level 8.7 MG/DL (8.5-10.1) Phosphorus Level 2.9 MG/DL (2.5-4.9) Magnesium Level 1.7 MG/DL (1.8-2.4) L Total Bilirubin 0.6 MG/DL (0.2-1.0) Aspartate Amino Transf (AST/SGOT) 17 U/L (15-37) Alanine Aminotransferase (ALT/SGPT) 30 U/L (12-78) Alkaline Phosphatase 65 U/L (46-116) C-Reactive Protein, Quantitative 2.7 mg/dL (0.00-0.90) H Total Protein 6.2 G/DL (6.4-8.2) L Albumin 2.7 G/DL (3.4-5.0) L Globulin 3.5 g/dL Albumin/Globulin Ratio 0.8 (1.0-2.7) L Thyroid Stimulating Immunoglobulin Pending Thyroglobulin Antibody Pending Microbiology Date/Time Source Procedure Growth Status 11/22/18 12:20 Nasal Nares MRSA Culture - Final NO METHICILLIN RESISTANT STAPH AUREUS... Complete 11/22/18 11:15 Urine,Clean Catch Urine Culture - Preliminary YEAST Resulted 11/22/18 12:20 Rectal Mucosa VRE Culture - Final NO VANCOMYCIN RESISTANT ENTEROCOCCUS ... Complete 11/22/18 12:20 Rectal Mucosa - Final NO CARBAPENEM-RESISTANT ENTEROBACTERI... Complete Intake and Output 11/23/18 11/24/18 19:00 07:00 Intake Total 2255 ml 375 ml Output Total 600 ml 1000 ml Balance 1655 ml -625 ml Intake Oral 1300 ml IV Total 955 ml 375 ml Output Urine Total 600 ml 1000 ml # Bowel Movements 1 3 Objective PHYSICAL EXAMINATION: GENERAL: The patient is awake, alert, responsive, very pleasant, but forgetful. HEAD AND NECK: Pupils are reactive to light. Extraocular movements intact. Neck was supple. No JVD. LUNGS: Good air entry. No wheezing or rales. Left side of the chest has a pacemaker. ABDOMEN: Soft, nondistended, and nontender. Positive bowel sounds. EXTREMITIES: No cyanosis, clubbing, or edema. NEUROLOGIC: FOOD EQUIPMENT SERVICE TECHNICIAN II through XII grossly intact. Motor is 5/5 in all extremities. Gait was not assessed due to the patient's status. RECTAL/GENITOURINARY: Refused and deferred. Assessment/Plan Assessment/Plan ASSESSMENT: 1. Gastrointestinal bleed. 2. Anemia possible due to acute blood loss. 3. Hypokalemia. 4. Acute urinary tract infection. 5. Moderate left hydronephrosis with hydroureter. 6. Cardiac arrhythmia status post pacemaker. 7. Diabetes type 2. 8. Hypertension. 9. Gastritis 10. hemorrhoids PLAN: 1. Admit the patient to medical floor. 2. We will follow up with the laboratory. 3. Clear liquid diet. 4. Gastrointestinal consultation with Dr. Hernandez. 5. Code status is Full Code at this time. 6. We will follow up with the Urology consultation, Dr. Allen. 7. S/P Esophagogastroduodenoscopy and colonoscopy 11/24/18. 8. We will follow up with urine culture and Cardiology consultation with Dr. Nj Valenzuela. 9. Protonix 40 mg BID and carafate 1 gm Jean-Claude Mcnally MD Nov 24, 2018 19:06
--- NOTE | 2018-11-24 19:24 | Neurology Progress Note ---
Interim History Interim History ROS Limited/Unobtainable: No Events: None significant Review of Systems All Systems: reviewed and negative except above Objective Physical Exam Last Vital Signs Date Time Temp Pulse Resp B/P (MAP) Pulse Ox O2 Delivery O2 Flow Rate FiO2 11/24/18 16:00 97.7 95 19 147/68 (94) 100 11/24/18 13:00 Nasal Cannula 3 Laboratory Tests Test 11/23/18 23:50 11/24/18 05:39 Hemoglobin A1c 6.6 % (4.3-6.0) H Triglycerides Level 43 MG/DL (30-150) Cholesterol Level 109 MG/DL (< 200) LDL Cholesterol 62 mg/dL (<100) HDL Cholesterol 37 MG/DL (40-60) L Cholesterol/HDL Ratio 2.9 (3.3-4.4) L White Blood Count 7.8 K/UL (4.8-10.8) Red Blood Count 3.34 M/UL (4.70-6.10) L Hemoglobin 10.3 G/DL (14.2-18.0) L Hematocrit 30.5 % (42.0-52.0) L Mean Corpuscular Volume 91 FL (80-99) Mean Corpuscular Hemoglobin 30.9 PG (27.0-31.0) Mean Corpuscular Hemoglobin Concent 33.9 G/DL (32.0-36.0) Red Cell Distribution Width 11.7 % (11.6-14.8) Platelet Count 145 K/UL (150-450) L Mean Platelet Volume 6.0 FL (6.5-10.1) L Neutrophils (%) (Auto) 76.1 % (45.0-75.0) H Lymphocytes (%) (Auto) 14.7 % (20.0-45.0) L Monocytes (%) (Auto) 8.4 % (1.0-10.0) Eosinophils (%) (Auto) 0.0 % (0.0-3.0) Basophils (%) (Auto) 0.8 % (0.0-2.0) Erythrocyte Sedimentation Rate 72 MM/HR (0-20) H Sodium Level 145 MMOL/L (136-145) Potassium Level 3.3 MMOL/L (3.5-5.1) L Chloride Level 110 MMOL/L (98-107) H Carbon Dioxide Level 28 MMOL/L (21-32) Anion Gap 7 mmol/L (5-15) Blood Urea Nitrogen 7 mg/dL (7-18) Creatinine 1.0 MG/DL (0.55-1.30) Estimat Glomerular Filtration Rate mL/min (>60) Glucose Level 121 MG/DL (74-106) H Calcium Level 8.7 MG/DL (8.5-10.1) Phosphorus Level 2.9 MG/DL (2.5-4.9) Magnesium Level 1.7 MG/DL (1.8-2.4) L Total Bilirubin 0.6 MG/DL (0.2-1.0) Aspartate Amino Transf (AST/SGOT) 17 U/L (15-37) Alanine Aminotransferase (ALT/SGPT) 30 U/L (12-78) Alkaline Phosphatase 65 U/L (46-116) C-Reactive Protein, Quantitative 2.7 mg/dL (0.00-0.90) H Total Protein 6.2 G/DL (6.4-8.2) L Albumin 2.7 G/DL (3.4-5.0) L Globulin 3.5 g/dL Albumin/Globulin Ratio 0.8 (1.0-2.7) L Thyroid Stimulating Immunoglobulin Pending Thyroglobulin Antibody Pending Impression/Recommendations Problems: (1) Altered level of consciousness Assessment & Plan: CT 11/22/18: Chronic and age-related changes is noted. 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 Status: doing well, stable, unchanged Recommendations Unable to obtain MRI - so will continue to monitor- continue ASA and Q 4 hour neuro checks CTA if worsening deficits or new acute. Bailey Appiah N.P. Nov 24, 2018 19:14
--- NOTE | 2018-11-24 19:30 | NUR ---
HAND-OFF: Report given to DONELL DUFFY.
--- NOTE | 2018-11-24 20:25 | Cardiology Progress Note ---
Assessment/Plan Assessment/Plan 1. 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 2. Dementia. 3. History of recent seizures. 4. Hydroureter and hydronephrosis. 5. Iron deficiency. 6. Hematuria. 7. Hematochezia per report. 8. Hyperthyroidism. 9. Elevated blood sugar s/p cysto toelrated well endocrin noted nowon metamizole bp elevated will increase irbesartan Subjective Cardiovascular: Denies: chest pain, lightheadedness, palpitations Respiratory: Denies: shortness of breath Gastrointestinal/Abdominal: Denies: abdominal pain Genitourinary: Denies: burning Objective Last 24 Hour Vital Signs Date Time Temp Pulse Resp B/P (MAP) Pulse Ox O2 Delivery O2 Flow Rate FiO2 11/24/18 20:11 Room Air 11/24/18 16:00 97.7 95 19 147/68 (94) 100 11/24/18 14:30 97.8 91 20 150/69 (96) 98 11/24/18 14:00 97.7 88 19 153/76 (101) 98 11/24/18 13:30 97.6 92 19 155/76 (102) 99 11/24/18 13:00 97.6 90 20 158/79 (105) 100 11/24/18 13:00 98.0 60 15 144/67 100 Nasal Cannula 3 11/24/18 12:48 73 15 149/71 100 Nasal Cannula 3 11/24/18 12:44 79 16 100 11/24/18 12:43 65 15 143/71 100 Nasal Cannula 3 11/24/18 12:38 97.1 79 16 120/56 100 Nasal Cannula 3 11/24/18 10:30 97.4 62 20 163/74 (103) 98 11/24/18 10:00 97.3 64 19 163/71 (101) 100 11/24/18 09:50 97.8 64 15 164/68 100 Nasal Cannula 3 11/24/18 09:45 61 14 158/69 100 Nasal Cannula 3 11/24/18 09:40 60 15 168/68 100 Nasal Cannula 3 11/24/18 09:30 63 14 176/73 100 Simple Mask 6 11/24/18 09:20 64 13 169/74 100 Simple Mask 6 11/24/18 09:10 67 14 171/69 100 Simple Mask 6 11/24/18 09:05 68 16 175/68 100 Simple Mask 6 11/24/18 09:03 68 20 98 11/24/18 09:00 Nasal Cannula 2.0 11/24/18 08:58 97.6 68 20 162/72 100 Simple Mask 6 11/24/18 04:00 98.6 84 19 158/88 (111) 98 11/24/18 00:00 97.8 80 18 143/52 (82) 99 11/23/18 21:00 Room Air General Appearance: no apparent distress, alert Neck: supple Cardiovascular: normal rate, regular rhythm, systolic murmur Respiratory/Chest: lungs clear Abdomen: normal bowel sounds, non tender, soft Extremities: no swelling Intake and Output 11/23/18 11/24/18 18:59 06:59 Intake Total 2255 ml 450 ml Output Total 600 ml 1000 ml Balance 1655 ml -550 ml Intake Oral 1300 ml IV Total 955 ml 450 ml Output Urine Total 600 ml 1000 ml # Bowel Movements 1 3 Laboratory Tests Test 11/23/18 23:50 11/24/18 05:39 Hemoglobin A1c 6.6 % (4.3-6.0) H Triglycerides Level 43 MG/DL (30-150) Cholesterol Level 109 MG/DL (< 200) LDL Cholesterol 62 mg/dL (<100) HDL Cholesterol 37 MG/DL (40-60) L Cholesterol/HDL Ratio 2.9 (3.3-4.4) L White Blood Count 7.8 K/UL (4.8-10.8) Red Blood Count 3.34 M/UL (4.70-6.10) L Hemoglobin 10.3 G/DL (14.2-18.0) L Hematocrit 30.5 % (42.0-52.0) L Mean Corpuscular Volume 91 FL (80-99) Mean Corpuscular Hemoglobin 30.9 PG (27.0-31.0) Mean Corpuscular Hemoglobin Concent 33.9 G/DL (32.0-36.0) Red Cell Distribution Width 11.7 % (11.6-14.8) Platelet Count 145 K/UL (150-450) L Mean Platelet Volume 6.0 FL (6.5-10.1) L Neutrophils (%) (Auto) 76.1 % (45.0-75.0) H Lymphocytes (%) (Auto) 14.7 % (20.0-45.0) L Monocytes (%) (Auto) 8.4 % (1.0-10.0) Eosinophils (%) (Auto) 0.0 % (0.0-3.0) Basophils (%) (Auto) 0.8 % (0.0-2.0) Erythrocyte Sedimentation Rate 72 MM/HR (0-20) H Sodium Level 145 MMOL/L (136-145) Potassium Level 3.3 MMOL/L (3.5-5.1) L Chloride Level 110 MMOL/L (98-107) H Carbon Dioxide Level 28 MMOL/L (21-32) Anion Gap 7 mmol/L (5-15) Blood Urea Nitrogen 7 mg/dL (7-18) Creatinine 1.0 MG/DL (0.55-1.30) Estimat Glomerular Filtration Rate mL/min (>60) Glucose Level 121 MG/DL (74-106) H Calcium Level 8.7 MG/DL (8.5-10.1) Phosphorus Level 2.9 MG/DL (2.5-4.9) Magnesium Level 1.7 MG/DL (1.8-2.4) L Total Bilirubin 0.6 MG/DL (0.2-1.0) Aspartate Amino Transf (AST/SGOT) 17 U/L (15-37) Alanine Aminotransferase (ALT/SGPT) 30 U/L (12-78) Alkaline Phosphatase 65 U/L (46-116) C-Reactive Protein, Quantitative 2.7 mg/dL (0.00-0.90) H Total Protein 6.2 G/DL (6.4-8.2) L Albumin 2.7 G/DL (3.4-5.0) L Globulin 3.5 g/dL Albumin/Globulin Ratio 0.8 (1.0-2.7) L Thyroid Stimulating Immunoglobulin Pending Thyroglobulin Antibody Pending Microbiology Date/Time Source Procedure Growth Status 11/22/18 12:20 Nasal Nares MRSA Culture - Final NO METHICILLIN RESISTANT STAPH AUREUS... Complete 11/22/18 11:15 Urine,Clean Catch Urine Culture - Preliminary YEAST Resulted 11/22/18 12:20 Rectal Mucosa VRE Culture - Final NO VANCOMYCIN RESISTANT ENTEROCOCCUS ... Complete 11/22/18 12:20 Rectal Mucosa - Final NO CARBAPENEM-RESISTANT ENTEROBACTERI... Complete Nj Valenzuela MD Nov 24, 2018 20:25
[2018-11-24] MEDS ORDERED: Irbesartan 150mg tablet ORAL SCH (20:30)
--- NOTE | 2018-11-24 20:30 | Procedure Note ---
DATE OF PROCEDURE: 11/24/2018 SURGEON: Prince Hernandez M.D. ANESTHESIOLOGIST: Awilda PELAYO. REFERRING PHYSICIAN: Jaziel Lowe M.D. PROCEDURE: Upper endoscopy with biopsy and colonoscopy with snare polypectomy. ANESTHESIA: Per Awilda PELAYO. INSTRUMENT: Olympus adult flexible upper endoscope and colonoscope. INDICATION: Anemia, GI bleeding. The procedure, risks, benefits, and possible consequences, including hemorrhage, aspiration, perforation and infection, and alternative treatments, were explained to the patient/legal guardian by Dr. Prince Hernandez and the patient/legal guardian understood and accepted these risks. DESCRIPTION OF PROCEDURE: After informed consent was obtained and the patient was adequately sedated, Olympus upper endoscope was advanced from the mouth into the second portion of duodenum and retroflexion was performed in the stomach. The patient had multiple areas in the antrum of the stomach which were like patches of depressing area, questionable shallow ulcerations, no erosions. Biopsy from this area was obtained. No obvious bleeding in the stomach. At this time, the upper endoscope was retrieved. The patient was turned over for colonoscopy. First, rectal exam was performed which was normal. Then, the scope was advanced from the rectum into the cecum documented by appendix orifice, ileocecal valve, and right upper quadrant palpation. Quality of prep was very good. The patient had 1 sessile polyp, measured roughly about 7 mm, removed with hot snare polypectomy technique in the sigmoid. The rest of the colonic examination grossly looked within normal limit. Retroflexion in rectum showed evidence of internal hemorrhoids. SUMMARY OF FINDINGS: 1. Gastritis and possibly gastric ulceration, status post biopsy. 2. One colonic polyp removed, see above for details. 3. Internal hemorrhoids. RECOMMENDATIONS: Follow up pathology. Resume diet. Follow with Urology given diagnosis of bladder cancer. I want to thank, Dr. Jaziel Lowe, for this kind referral. Prince Hernandez M.D. DR: Isaias JOB#: [id number] CC: Jaziel Lowe M.D.; Fax#: [phone]
[2018-11-24] MEDS: Sucralfate 1gm tab ORAL SCH (21:06)
[2018-11-24] MEDS: Tamsulosin 0.4mg cap ORAL SCH (21:06)
[2018-11-24] MEDS: HydrALAZINE 50mg tab ORAL PRN (21:06)
--- NOTE | 2018-11-24 23:30 | Diagnostic Imaging Report ---
APPROVED REPORT CPT Code: 48060 Present Symptoms Comments: BILATERAL LEGS PAIN. BILATERAL: Imaging reveals a patent deep venous system bilaterally. There is no evidence of thrombus within the femoral, popliteal or tibial segments. The greater saphenous veins are also within normal limits. Doppler indicates normal spontaneous flow within these segments.
[2018-11-25 00:17] VITALS: BP 145/60
[2018-11-25 04:00] VITALS: BP 156/80
[2018-11-25] MEDS: Nateglinide 60mg tab ORAL SCH ×3 (05:45→16:52)
[2018-11-25] MEDS: NovoLOG Insulin Flexpen SUBQ SCH ×4 (05:46→21:32)
[2018-11-25] MEDS: D5 1/2NS 1,000 ML IV SCH ×2 (05:48→21:40)
--- NOTE | 2018-11-25 06:45 | General Progress Note ---
Assessment/Plan Problem List: (1) Acute metabolic encephalopathy ICD Codes: G93.41 - Metabolic encephalopathy SNOMED: 96085289, 470923655 (2) Hyperthyroidism ICD Codes: E05.90 - Thyrotoxicosis, unspecified without thyrotoxic crisis or storm SNOMED: 87565974 (3) Diabetes mellitus ICD Codes: E11.9 - Type 2 diabetes mellitus without complications SNOMED: 43401574 Assessment: thyroid US revealed normal anatomy without nodules hyperthyroidism is most likely due to Graves' continue Tapazole 10 mg bid follow TSI and ATPO to confirm Graves' - pending continue Starlix 60 mg ac tid continue NISS ac / hs Subjective ROS Limited/Unobtainable: Yes Allergies: Coded Allergies: No Known Allergies (Unverified , 04/09/16) Subjective events noted Item Value Date Time Bedside Blood Glucose 186 mg/dl H 11/25/18 0625 Bedside Blood Glucose 141 mg/dl H 11/24/18 2118 Bedside Blood Glucose 220 mg/dl H 11/24/18 1750 Bedside Blood Glucose 192 mg/dl H 11/24/18 1130 Bedside Blood Glucose 129 mg/dl H 11/24/18 0619 Objective Last 24 Hour Vital Signs Date Time Temp Pulse Resp B/P (MAP) Pulse Ox O2 Delivery O2 Flow Rate FiO2 11/25/18 04:00 98.2 87 17 156/80 (105) 100 11/25/18 00:17 99.0 96 20 145/60 (88) 100 11/24/18 21:06 167/75 11/24/18 21:06 167/75 11/24/18 20:11 Room Air 11/24/18 20:00 98.4 77 24 167/75 (105) 100 11/24/18 16:00 97.7 95 19 147/68 (94) 100 11/24/18 14:30 97.8 91 20 150/69 (96) 98 11/24/18 14:00 97.7 88 19 153/76 (101) 98 11/24/18 13:30 97.6 92 19 155/76 (102) 99 11/24/18 13:00 97.6 90 20 158/79 (105) 100 11/24/18 13:00 98.0 60 15 144/67 100 Nasal Cannula 3 11/24/18 12:48 73 15 149/71 100 Nasal Cannula 3 11/24/18 12:44 79 16 100 11/24/18 12:43 65 15 143/71 100 Nasal Cannula 3 11/24/18 12:38 97.1 79 16 120/56 100 Nasal Cannula 3 11/24/18 10:30 97.4 62 20 163/74 (103) 98 11/24/18 10:00 97.3 64 19 163/71 (101) 100 11/24/18 09:50 97.8 64 15 164/68 100 Nasal Cannula 3 11/24/18 09:45 61 14 158/69 100 Nasal Cannula 3 11/24/18 09:40 60 15 168/68 100 Nasal Cannula 3 11/24/18 09:30 63 14 176/73 100 Simple Mask 6 11/24/18 09:20 64 13 169/74 100 Simple Mask 6 11/24/18 09:10 67 14 171/69 100 Simple Mask 6 11/24/18 09:05 68 16 175/68 100 Simple Mask 6 11/24/18 09:03 68 20 98 11/24/18 09:00 Nasal Cannula 2.0 11/24/18 08:58 97.6 68 20 162/72 100 Simple Mask 6 Intake and Output 11/24/18 11/25/18 19:00 07:00 Intake Total 1510 ml 825 ml Output Total 560 ml 1000 ml Balance 950 ml -175 ml Intake Oral 360 ml IV Total 1150 ml 825 ml Output Urine Total 550 ml 1000 ml Estimated Blood Loss 10 ml Height (Feet): 6 Height (Inches): 6.00 Weight (Pounds): 182 General Appearance: no apparent distress Neck: normal alignment Cardiovascular: normal rate Respiratory/Chest: lungs clear Abdomen: normal bowel sounds Objective Current Medications Medications (Trade) Dose Ordered Sig/Levi Route PRN Reason Start Time Stop Time Status Last Admin Dose Admin Acetaminophen (Tylenol) 650 mg Q4H PRN ORAL fever 11/22/18 13:30 12/22/18 13:29 Al Hydroxide/Mg Hydroxide (Mylanta II) 30 ml Q6H PRN ORAL dyspepsia 11/22/18 13:30 12/22/18 13:29 Ceftriaxone Sodium 1 gm/ Dextrose 55 ml @ 110 mls/hr Q24H IVPB 11/23/18 12:00 11/30/18 11:59 11/24/18 14:50 Dextrose (Dextrose 50%) 25 ml Q30M PRN IV Hypoglycemia 11/22/18 13:30 12/22/18 13:23 11/22/18 17:21 Dextrose (Dextrose 50%) 50 ml Q30M PRN IV hypoglycemia 11/22/18 13:30 12/22/18 13:29 Dextrose/Sodium Chloride 1,000 ml @ 75 mls/hr [id number] IV 11/22/18 13:16 12/22/18 13:15 11/25/18 05:48 Diphenhydramine HCl (Benadryl) 25 mg Q6H PRN ORAL Itching/Pruritis 11/22/18 13:30 12/22/18 13:29 Finasteride (Proscar) 5 mg DAILY ORAL 11/22/18 19:45 12/22/18 19:44 11/23/18 09:29 Hydralazine HCl (Apresoline) 50 mg Q6H PRN ORAL SBP > 160 11/22/18 17:30 12/22/18 17:29 11/24/18 21:06 Insulin Aspart (NovoLOG) BEFORE MEALS AND HS SUBQ 11/22/18 16:30 12/22/18 16:29 11/25/18 05:46 Irbesartan (Avapro) 150 mg BID ORAL 11/25/18 09:00 12/25/18 08:59 Methimazole (Tapazole) 10 mg BID ORAL 11/24/18 09:00 12/24/18 08:59 11/24/18 17:48 Morphine Sulfate (Morphine Sulfate) 2 mg Q4H PRN IVP severe Pain (Pain Scale 7-10) 11/22/18 13:30 11/29/18 13:29 11/22/18 20:41 Nateglinide (Starlix) 60 mg TIAC ORAL 11/24/18 11:30 12/24/18 11:29 11/25/18 05:45 Nitroglycerin (Ntg) 0.4 mg Q5M X 3 DOSES PRN SL Prn Chest Pain 11/22/18 13:30 12/22/18 13:29 Ondansetron HCl (Zofran) 4 mg Q6H PRN IVP Nausea & Vomiting 11/22/18 13:30 12/22/18 13:29 Pantoprazole (Protonix) 40 mg EVERY 12 HOURS ORAL 11/24/18 21:00 12/24/18 20:59 11/24/18 21:06 Polyethylene Glycol (Miralax) 17 gm HSPRN PRN ORAL Constipation 11/22/18 13:30 12/22/18 13:29 Sucralfate (Carafate) 1 gm FOUR TIMES A DAY ORAL 11/24/18 21:00 12/24/18 20:59 11/24/18 21:06 Tamsulosin HCl (Flomax) 0.4 mg BEDTIME ORAL 11/22/18 21:00 12/22/18 20:59 11/24/18 21:06 Temazepam (Restoril) 15 mg HSPRN PRN ORAL Insomnia 11/22/18 13:30 11/29/18 13:29 11/22/18 20:40 Kashif Adorno MD Nov 25, 2018 06:45
[2018-11-25 07:13] LABS: BASOPHILS % (AUTO) 0.5 % (0.0-2.0); HEMATOCRIT 31.1 % (42.0-52.0); HEMOGLOBIN 10.5 G/DL (14.2-18.0); LYMPHOCYTES % (AUTO) 12.2 % (20.0-45.0); MEAN CORPUSCULAR VOLUME 92 FL (80-99); MONOCYTES % (AUTO) 8.3 % (1.0-10.0); PLATELET COUNT 127 K/UL (150-450); RED BLOOD COUNT 3.38 M/UL (4.70-6.10); RED CELL DISTRIBUTION WIDTH 11.6 % (11.6-14.8); WHITE BLOOD COUNT 9.4 K/UL (4.8-10.8)
[2018-11-25 07:19] LABS: ALANINE AMINOTRANSFERASE 24 U/L (12-78); ALBUMIN 2.5 G/DL (3.4-5.0); ALBUMIN/GLOBULIN RATIO 0.7 (1.0-2.7); ALKALINE PHOSPHATASE 72 U/L (46-116); ANION GAP 6 mmol/L (5-15); ASPARTATE AMINO TRANSFERASE 15 U/L (15-37); BILIRUBIN,TOTAL 0.3 MG/DL (0.2-1.0); BLOOD UREA NITROGEN 14 mg/dL (7-18); CALCIUM 8.5 MG/DL (8.5-10.1); CARBON DIOXIDE 29 MMOL/L (21-32); CHLORIDE 108 MMOL/L (98-107); CREATININE 1.1 MG/DL (0.55-1.30); POTASSIUM 3.9 MMOL/L (3.5-5.1); SODIUM 143 MMOL/L (136-145)
--- NOTE | 2018-11-25 07:19 | NUR ---
HAND-OFF: Report given to Newton Isbell RN.
[2018-11-25 07:35] LABS: PHOSPHORUS 2.6 MG/DL (2.5-4.9)
--- NOTE | 2018-11-25 07:55 | NUR ---
NURSE NOTES: Received patient on bed, awake. IV site intact and patent. Robertson catheter present and intact, patent and draining. Bed in low and locked position, call light in reach. Patient is NPO for procedure. No signs of respiratory distres or pain. Room board updated, will continue to monitor.
[2018-11-25 08:00] VITALS: BP 141/68
[2018-11-25] MEDS: Sucralfate 1gm tab ORAL SCH ×4 (09:00→21:30)
[2018-11-25] MEDS: Irbesartan 150mg tablet ORAL SCH ×2 (09:00→18:53)
--- NOTE | 2018-11-25 10:38 | Urology Progress Note ---
Assessment/Plan Assessment: 1. Left hydronephrosis. 2. Hematuria. 3. Pyuria. 4. Proteinuria. 5. Benign prostatic hypertrophy. 6. Incontinence. 7. Neurogenic bladder. 8. Cystitis. 9. POD # 1, cysto/TURBT Plan: monitor clinically keep hernandez indwelling for now hand irrigated and do PRN f/u on path left hydro secondary to bladder tumor unable to place left ureteral stent will need left nephrostomy/antegrade ureteral stent by IR poss later today keep NPO flomax and proscar consider adding antifungals d/w nursing staff d/w pt's granddaughter Subjective Allergies: Coded Allergies: No Known Allergies (Unverified , 04/09/16) Subjective all noted, a bit confused Objective Last 24 Hour Vital Signs Date Time Temp Pulse Resp B/P (MAP) Pulse Ox O2 Delivery O2 Flow Rate FiO2 11/25/18 09:00 141/68 11/25/18 09:00 Room Air 11/25/18 08:00 98.3 82 18 141/68 (92) 99 11/25/18 04:00 98.2 87 17 156/80 (105) 100 11/25/18 00:17 99.0 96 20 145/60 (88) 100 11/24/18 21:06 167/75 11/24/18 21:06 167/75 11/24/18 20:11 Room Air 11/24/18 20:00 98.4 77 24 167/75 (105) 100 11/24/18 16:00 97.7 95 19 147/68 (94) 100 11/24/18 14:30 97.8 91 20 150/69 (96) 98 11/24/18 14:00 97.7 88 19 153/76 (101) 98 11/24/18 13:30 97.6 92 19 155/76 (102) 99 11/24/18 13:00 97.6 90 20 158/79 (105) 100 11/24/18 13:00 98.0 60 15 144/67 100 Nasal Cannula 3 11/24/18 12:48 73 15 149/71 100 Nasal Cannula 3 11/24/18 12:44 79 16 100 11/24/18 12:43 65 15 143/71 100 Nasal Cannula 3 11/24/18 12:38 97.1 79 16 120/56 100 Nasal Cannula 3 Intake and Output 11/24/18 11/25/18 18:59 06:59 Intake Total 1435 ml 900 ml Output Total 560 ml 1000 ml Balance 875 ml -100 ml Intake Oral 360 ml IV Total 1075 ml 900 ml Output Urine Total 550 ml 1000 ml Estimated Blood Loss 10 ml Microbiology Date/Time Source Procedure Growth Status 11/22/18 12:20 Nasal Nares MRSA Culture - Final NO METHICILLIN RESISTANT STAPH AUREUS... Complete 11/22/18 11:15 Urine,Clean Catch Urine Culture - Final YEAST Complete 11/22/18 12:20 Rectal Mucosa VRE Culture - Final NO VANCOMYCIN RESISTANT ENTEROCOCCUS ... Complete 11/22/18 12:20 Rectal Mucosa - Final NO CARBAPENEM-RESISTANT ENTEROBACTERI... Complete Current Medications Medications (Trade) Dose Ordered Sig/Levi Route PRN Reason Start Time Stop Time Status Last Admin Dose Admin Acetaminophen (Tylenol) 650 mg Q4H PRN ORAL fever 11/22/18 13:30 12/22/18 13:29 Al Hydroxide/Mg Hydroxide (Mylanta II) 30 ml Q6H PRN ORAL dyspepsia 11/22/18 13:30 12/22/18 13:29 Ceftriaxone Sodium 1 gm/ Dextrose 55 ml @ 110 mls/hr Q24H IVPB 11/23/18 12:00 11/30/18 11:59 11/24/18 14:50 Dextrose (Dextrose 50%) 25 ml Q30M PRN IV Hypoglycemia 11/22/18 13:30 12/22/18 13:23 11/22/18 17:21 Dextrose (Dextrose 50%) 50 ml Q30M PRN IV hypoglycemia 11/22/18 13:30 12/22/18 13:29 Dextrose/Sodium Chloride 1,000 ml @ 75 mls/hr [id number] IV 11/22/18 13:16 12/22/18 13:15 11/25/18 05:48 Diphenhydramine HCl (Benadryl) 25 mg Q6H PRN ORAL Itching/Pruritis 11/22/18 13:30 12/22/18 13:29 Finasteride (Proscar) 5 mg DAILY ORAL 11/22/18 19:45 12/22/18 19:44 11/23/18 09:29 Hydralazine HCl (Apresoline) 50 mg Q6H PRN ORAL SBP > 160 11/22/18 17:30 12/22/18 17:29 11/24/18 21:06 Insulin Aspart (NovoLOG) BEFORE MEALS AND HS SUBQ 11/22/18 16:30 12/22/18 16:29 11/25/18 05:46 Irbesartan (Avapro) 150 mg BID ORAL 11/25/18 09:00 12/25/18 08:59 Methimazole (Tapazole) 10 mg BID ORAL 11/24/18 09:00 12/24/18 08:59 11/24/18 17:48 Morphine Sulfate (Morphine Sulfate) 2 mg Q4H PRN IVP severe Pain (Pain Scale 7-10) 11/22/18 13:30 11/29/18 13:29 11/22/18 20:41 Nateglinide (Starlix) 60 mg TIAC ORAL 11/24/18 11:30 12/24/18 11:29 11/25/18 05:45 Nitroglycerin (Ntg) 0.4 mg Q5M X 3 DOSES PRN SL Prn Chest Pain 11/22/18 13:30 12/22/18 13:29 Ondansetron HCl (Zofran) 4 mg Q6H PRN IVP Nausea & Vomiting 11/22/18 13:30 12/22/18 13:29 Pantoprazole (Protonix) 40 mg EVERY 12 HOURS ORAL 11/24/18 21:00 12/24/18 20:59 11/24/18 21:06 Polyethylene Glycol (Miralax) 17 gm HSPRN PRN ORAL Constipation 11/22/18 13:30 12/22/18 13:29 Sucralfate (Carafate) 1 gm FOUR TIMES A DAY ORAL 11/24/18 21:00 12/24/18 20:59 11/24/18 21:06 Tamsulosin HCl (Flomax) 0.4 mg BEDTIME ORAL 11/22/18 21:00 12/22/18 20:59 11/24/18 21:06 Temazepam (Restoril) 15 mg HSPRN PRN ORAL Insomnia 11/22/18 13:30 11/29/18 13:29 11/22/18 20:40 Laboratory Tests 11/25/18 04:45: White Blood Count 9.4, Red Blood Count 3.38L, Hemoglobin 10.5L, Hematocrit 31.1L , Mean Corpuscular Volume 92, Mean Corpuscular Hemoglobin 31.0, Mean Corpuscular Hemoglobin Concent 33.6, Red Cell Distribution Width 11.6, Platelet Count 127L, Mean Platelet Volume 6.5, Neutrophils (%) (Auto) 79.0H, Lymphocytes (%) (Auto) 12.2L, Monocytes (%) (Auto) 8.3, Eosinophils (%) (Auto) 0.0, Basophils (%) (Auto) 0.5, Erythrocyte Sedimentation Rate 53H, Sodium Level 143, Potassium Level 3.9, Chloride Level 108H, Carbon Dioxide Level 29, Anion Gap 6, Blood Urea Nitrogen 14, Creatinine 1.1, Estimat Glomerular Filtration Rate , Glucose Level 187H, Calcium Level 8.5, Phosphorus Level 2.6, Magnesium Level 1.6L, Total Bilirubin 0.3, Aspartate Amino Transf (AST/SGOT) 15, Alanine Aminotransferase (ALT/SGPT) 24, Alkaline Phosphatase 72, C-Reactive Protein, Quantitative 3.8H, Total Protein 5.9L, Albumin 2.5L, Globulin 3.4, Albumin/ Globulin Ratio 0.7L Height (Feet): 6 Height (Inches): 6.00 Weight (Pounds): 182 Objective exam stable condom cath, urine slightly blood-tinged, wes Bamshad,Macho Oliver MD Nov 25, 2018 10:38
--- NOTE | 2018-11-25 10:47 | GI Progress Note ---
Assessment/Plan Problems: (1) Lower GI bleed ICD Codes: K92.2 - Gastrointestinal hemorrhage, unspecified SNOMED: 56173405 (2) Anemia ICD Codes: D64.9 - Anemia, unspecified SNOMED: 886058179 (3) Bleeding hemorrhoid ICD Codes: K64.9 - Unspecified hemorrhoids SNOMED: 27866233 (4) Alzheimer's dementia ICD Codes: G30.9 - Alzheimer's disease, unspecified; F02.80 - Dementia in other diseases classified elsewhere without behavioral disturbance SNOMED: 92765004 (5) Diabetes mellitus ICD Codes: E11.9 - Type 2 diabetes mellitus without complications SNOMED: 84525917 Status: stable, unchanged Status Narrative Discussed with Dr. Hernandez Assessment/Plan SUMMARY OF FINDINGS: 1. Gastritis and possibly gastric ulceration, status post biopsy. 2. One colonic polyp removed, see above for details. 3. Internal hemorrhoids. Occult blood stool negative RECOMMENDATIONS: Follow up pathology. Resume diet. Follow with Urology given diagnosis of bladder cancer. monitor H&H, prn transfusions bowel regime ppi fu labs The patient was seen and examined at bedside and all new and available data was reviewed in the patients chart. I agree with the above findings, impression and plan. (Patient seen earlier today. Signature stamp does not reflect patient encounter time.). - Prince Hernandez MD Subjective Gastrointestinal/Abdominal: Reports: no symptoms Subjective Limited Objective Last 24 Hour Vital Signs Date Time Temp Pulse Resp B/P (MAP) Pulse Ox O2 Delivery O2 Flow Rate FiO2 11/25/18 09:00 141/68 11/25/18 09:00 Room Air 11/25/18 08:00 98.3 82 18 141/68 (92) 99 11/25/18 04:00 98.2 87 17 156/80 (105) 100 11/25/18 00:17 99.0 96 20 145/60 (88) 100 11/24/18 21:06 167/75 11/24/18 21:06 167/75 11/24/18 20:11 Room Air 11/24/18 20:00 98.4 77 24 167/75 (105) 100 11/24/18 16:00 97.7 95 19 147/68 (94) 100 11/24/18 14:30 97.8 91 20 150/69 (96) 98 11/24/18 14:00 97.7 88 19 153/76 (101) 98 11/24/18 13:30 97.6 92 19 155/76 (102) 99 11/24/18 13:00 97.6 90 20 158/79 (105) 100 11/24/18 13:00 98.0 60 15 144/67 100 Nasal Cannula 3 11/24/18 12:48 73 15 149/71 100 Nasal Cannula 3 11/24/18 12:44 79 16 100 11/24/18 12:43 65 15 143/71 100 Nasal Cannula 3 11/24/18 12:38 97.1 79 16 120/56 100 Nasal Cannula 3 Intake and Output 11/24/18 11/25/18 19:00 07:00 Intake Total 1510 ml 900 ml Output Total 560 ml 1000 ml Balance 950 ml -100 ml Intake Oral 360 ml IV Total 1150 ml 900 ml Output Urine Total 550 ml 1000 ml Estimated Blood Loss 10 ml Laboratory Tests Test 11/25/18 04:45 White Blood Count 9.4 K/UL (4.8-10.8) Red Blood Count 3.38 M/UL (4.70-6.10) L Hemoglobin 10.5 G/DL (14.2-18.0) L Hematocrit 31.1 % (42.0-52.0) L Mean Corpuscular Volume 92 FL (80-99) Mean Corpuscular Hemoglobin 31.0 PG (27.0-31.0) Mean Corpuscular Hemoglobin Concent 33.6 G/DL (32.0-36.0) Red Cell Distribution Width 11.6 % (11.6-14.8) Platelet Count 127 K/UL (150-450) L Mean Platelet Volume 6.5 FL (6.5-10.1) Neutrophils (%) (Auto) 79.0 % (45.0-75.0) H Lymphocytes (%) (Auto) 12.2 % (20.0-45.0) L Monocytes (%) (Auto) 8.3 % (1.0-10.0) Eosinophils (%) (Auto) 0.0 % (0.0-3.0) Basophils (%) (Auto) 0.5 % (0.0-2.0) Erythrocyte Sedimentation Rate 53 MM/HR (0-20) H Sodium Level 143 MMOL/L (136-145) Potassium Level 3.9 MMOL/L (3.5-5.1) Chloride Level 108 MMOL/L (98-107) H Carbon Dioxide Level 29 MMOL/L (21-32) Anion Gap 6 mmol/L (5-15) Blood Urea Nitrogen 14 mg/dL (7-18) Creatinine 1.1 MG/DL (0.55-1.30) Estimat Glomerular Filtration Rate mL/min (>60) Glucose Level 187 MG/DL (74-106) H Calcium Level 8.5 MG/DL (8.5-10.1) Phosphorus Level 2.6 MG/DL (2.5-4.9) Magnesium Level 1.6 MG/DL (1.8-2.4) L Total Bilirubin 0.3 MG/DL (0.2-1.0) Aspartate Amino Transf (AST/SGOT) 15 U/L (15-37) Alanine Aminotransferase (ALT/SGPT) 24 U/L (12-78) Alkaline Phosphatase 72 U/L (46-116) C-Reactive Protein, Quantitative 3.8 mg/dL (0.00-0.90) H Total Protein 5.9 G/DL (6.4-8.2) L Albumin 2.5 G/DL (3.4-5.0) L Globulin 3.4 g/dL Albumin/Globulin Ratio 0.7 (1.0-2.7) L Height (Feet): 6 Height (Inches): 6.00 Weight (Pounds): 182 General Appearance: WD/WN, no apparent distress, alert, thin Cardiovascular: normal rate Respiratory/Chest: normal breath sounds, no respiratory distress Abdominal Exam: normal bowel sounds, non tender, soft Extremities: non-tender Osiel Vega [employer] Nov 25, 2018 10:47
[2018-11-25 12:00] VITALS: BP 118/69
--- NOTE | 2018-11-25 12:21 | 48 Hour Post Anesthesia Eval ---
Post Anesthesia Evaluation Procedure: Cysto, Retrograde pyelogram, resection of bladder tumor Date of Evaluation: Nov 25, 2018 Time of Evaluation: 12:20 Blood Pressure Systolic: 148 0: 76 Pulse Rate: 68 Respiratory Rate: 20 Temperature (Fahrenheit): 97.6 O2 Sat by Pulse Oximetry: 98 Airway: patent Nausea: No Vomiting: No Pain Intensity: 2 Hydration Status: adequate Cardiopulmonary Status: stable Mental Status/LOC: patient returned to baseline Follow-up Care/Observations: n/a Post-Anesthesia Complications: none Follow-up care needed: N/A Scottie Bates MD Nov 25, 2018 12:21
--- NOTE | 2018-11-25 12:28 | NUR ---
RD ASSESSMENT & RECOMMENDATIONS SEE CARE ACTIVITY FOR COMPLETE ASSESSMENT DAILY ESTIMATED NEEDS: Needs based on DM 75kg adj 25-30 kcals/kg 7505-5155 total kcals 1-1.5 g protein/kg 75-113 g total protein 20-25 mL/kg 4942-0812 total fluid mLs NUTRITION DIAGNOSIS: Altered nutrition related lab values r.t diabetes as evidenced by A1C 6.6. CURRENT DIET: NPO for procedure PO DIET RECOMMENDATIONS: CCHO MED / soft easy chew ADDITIONAL RECOMMENDATIONS: 1) Obtain a standing weight as able 2) Lytes daily, replete as needed 3) MVI x1 daily
--- NOTE | 2018-11-25 12:55 | Pulmonology Progress Note ---
Assessment/Plan Problems: (1) Lower GI bleed (2) Hydronephrosis (3) Anemia (4) Bladder neoplasm (5) Chronic cerebrovascular accident (CVA) (6) Diabetes mellitus (7) Alzheimer's dementia (8) HTN (hypertension) Assessment/Plan awaiting nephrostomy tolerated cystoscopy follow up with pathology looks comfortable sliding scale monitor bp prbc prn check H/H dvt prophylaxis. Subjective ROS Limited/Unobtainable: No Constitutional: Reports: no symptoms HEENT: Repors: no symptoms Respiratory: Reports: no symptoms Allergies: Coded Allergies: No Known Allergies (Unverified , 04/09/16) Objective Last 24 Hour Vital Signs Date Time Temp Pulse Resp B/P (MAP) Pulse Ox O2 Delivery O2 Flow Rate FiO2 11/25/18 12:21 68 20 98 11/25/18 09:00 141/68 11/25/18 09:00 Room Air 11/25/18 08:00 98.3 82 18 141/68 (92) 99 11/25/18 04:00 98.2 87 17 156/80 (105) 100 11/25/18 00:17 99.0 96 20 145/60 (88) 100 11/24/18 21:06 167/75 11/24/18 21:06 167/75 11/24/18 20:11 Room Air 11/24/18 20:00 98.4 77 24 167/75 (105) 100 11/24/18 16:00 97.7 95 19 147/68 (94) 100 11/24/18 14:30 97.8 91 20 150/69 (96) 98 11/24/18 14:00 97.7 88 19 153/76 (101) 98 11/24/18 13:30 97.6 92 19 155/76 (102) 99 11/24/18 13:00 97.6 90 20 158/79 (105) 100 11/24/18 13:00 98.0 60 15 144/67 100 Nasal Cannula 3 Intake and Output 11/24/18 11/25/18 19:00 07:00 Intake Total 1510 ml 900 ml Output Total 560 ml 1000 ml Balance 950 ml -100 ml Intake Oral 360 ml IV Total 1150 ml 900 ml Output Urine Total 550 ml 1000 ml Estimated Blood Loss 10 ml General Appearance: cachetic HEENT: normocephalic, atraumatic Respiratory/Chest: chest wall non-tender, lungs clear, normal breath sounds Cardiovascular: normal peripheral pulses, normal rate Abdomen: normal bowel sounds, soft, non tender Genitourinary: normal external genitalia Extremities: no clubbing 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: scrap metal burner II-XII grossly normal Lymphatic: no neck adenopathy Laboratory Tests 11/25/18 04:45: White Blood Count 9.4, Red Blood Count 3.38L, Hemoglobin 10.5L, Hematocrit 31.1L , Mean Corpuscular Volume 92, Mean Corpuscular Hemoglobin 31.0, Mean Corpuscular Hemoglobin Concent 33.6, Red Cell Distribution Width 11.6, Platelet Count 127L, Mean Platelet Volume 6.5, Neutrophils (%) (Auto) 79.0H, Lymphocytes (%) (Auto) 12.2L, Monocytes (%) (Auto) 8.3, Eosinophils (%) (Auto) 0.0, Basophils (%) (Auto) 0.5, Erythrocyte Sedimentation Rate 53H, Sodium Level 143, Potassium Level 3.9, Chloride Level 108H, Carbon Dioxide Level 29, Anion Gap 6, Blood Urea Nitrogen 14, Creatinine 1.1, Estimat Glomerular Filtration Rate , Glucose Level 187H, Calcium Level 8.5, Phosphorus Level 2.6, Magnesium Level 1.6L, Total Bilirubin 0.3, Aspartate Amino Transf (AST/SGOT) 15, Alanine Aminotransferase (ALT/SGPT) 24, Alkaline Phosphatase 72, C-Reactive Protein, Quantitative 3.8H, Total Protein 5.9L, Albumin 2.5L, Globulin 3.4, Albumin/ Globulin Ratio 0.7L Current Medications Medications (Trade) Dose Ordered Sig/Levi Route PRN Reason Start Time Stop Time Status Last Admin Dose Admin Acetaminophen (Tylenol) 650 mg Q4H PRN ORAL fever 11/22/18 13:30 12/22/18 13:29 Al Hydroxide/Mg Hydroxide (Mylanta II) 30 ml Q6H PRN ORAL dyspepsia 11/22/18 13:30 12/22/18 13:29 Ceftriaxone Sodium 1 gm/ Dextrose 55 ml @ 110 mls/hr Q24H IVPB 11/23/18 12:00 11/30/18 11:59 11/24/18 14:50 Dextrose (Dextrose 50%) 25 ml Q30M PRN IV Hypoglycemia 11/22/18 13:30 12/22/18 13:23 11/22/18 17:21 Dextrose (Dextrose 50%) 50 ml Q30M PRN IV hypoglycemia 11/22/18 13:30 12/22/18 13:29 Dextrose/Sodium Chloride 1,000 ml @ 75 mls/hr [id number] IV 11/22/18 13:16 12/22/18 13:15 11/25/18 05:48 Diphenhydramine HCl (Benadryl) 25 mg Q6H PRN ORAL Itching/Pruritis 11/22/18 13:30 12/22/18 13:29 Finasteride (Proscar) 5 mg DAILY ORAL 11/22/18 19:45 12/22/18 19:44 11/23/18 09:29 Hydralazine HCl (Apresoline) 50 mg Q6H PRN ORAL SBP > 160 11/22/18 17:30 12/22/18 17:29 11/24/18 21:06 Insulin Aspart (NovoLOG) BEFORE MEALS AND HS SUBQ 11/22/18 16:30 12/22/18 16:29 11/25/18 05:46 Irbesartan (Avapro) 150 mg BID ORAL 11/25/18 09:00 12/25/18 08:59 Magnesium Sulfate 100 ml @ 100 mls/hr Q1H IVPB 11/25/18 11:00 11/25/18 12:59 11/25/18 12:31 Methimazole (Tapazole) 10 mg BID ORAL 11/24/18 09:00 12/24/18 08:59 11/24/18 17:48 Morphine Sulfate (Morphine Sulfate) 2 mg Q4H PRN IVP severe Pain (Pain Scale 7-10) 11/22/18 13:30 11/29/18 13:29 11/22/18 20:41 Nateglinide (Starlix) 60 mg TIAC ORAL 11/24/18 11:30 12/24/18 11:29 11/25/18 05:45 Nitroglycerin (Ntg) 0.4 mg Q5M X 3 DOSES PRN SL Prn Chest Pain 11/22/18 13:30 12/22/18 13:29 Ondansetron HCl (Zofran) 4 mg Q6H PRN IVP Nausea & Vomiting 11/22/18 13:30 12/22/18 13:29 Pantoprazole (Protonix) 40 mg EVERY 12 HOURS ORAL 11/24/18 21:00 12/24/18 20:59 11/24/18 21:06 Polyethylene Glycol (Miralax) 17 gm HSPRN PRN ORAL Constipation 11/22/18 13:30 12/22/18 13:29 Sucralfate (Carafate) 1 gm FOUR TIMES A DAY ORAL 11/24/18 21:00 12/24/18 20:59 11/24/18 21:06 Tamsulosin HCl (Flomax) 0.4 mg BEDTIME ORAL 11/22/18 21:00 12/22/18 20:59 11/24/18 21:06 Temazepam (Restoril) 15 mg HSPRN PRN ORAL Insomnia 11/22/18 13:30 11/29/18 13:29 11/22/18 20:40 Og Hinkle MD Nov 25, 2018 12:55
--- NOTE | 2018-11-25 13:22 | NUR ---
REMINDED DONELL HOOKER TO PLEASE INFORM BEHZAD HOBSON N.P. CONCERNING INABILITY OF PT TO PERFORM MRI DUE TO PACEMAKER. TJB 13:24
--- NOTE | 2018-11-25 13:28 | NUR ---
NURSE NOTES: Left message for COMBINATION MACHINE TOOL SETTER Td stating that MRi staff Adria stated he will not do MRI due to pacemaker in patient. Awaiting call back and any further orders.
[2018-11-25] MEDS ORDERED: Isovue-300 100ml vial INJ SCH (14:00)
[2018-11-25] MEDS ORDERED: Lidocaine 1% Plain 30 ml INJ SCH (14:03)
[2018-11-25] MEDS: cefTRIAXone 1 GM in D5W 55 ML IVPB SCH (14:28)
[2018-11-25 16:00] VITALS: BP_SYST 109; BP_SYST 143; BP_DIAS 73
--- NOTE | 2018-11-25 16:07 | Diagnostic Imaging Report ---
Indication: bladder mass. Technique: 5 intraoperative fluoroscopic images similar for archival the PACS. Physician: Macho Allen MD Total fluoroscopy time 20.2 seconds Total fluoroscopy dose 5.07 mGy Comparison: CT abdomen pelvis 11/22/2018 Findings: Intraoperative fluoroscopic images submitted for archival the PACS. Initial image demonstrates an indwelling cystoscope. There is cannulation of the right ureter and injection of contrast. Retrograde pyelogram exam demonstrates no significant right-sided hydroureteronephrosis. No filling defects noted in the right ureter. Probable extrarenal pelvis. Impression: Intraoperative fluoroscopic imaging as above. Please see operative report.
--- NOTE | 2018-11-25 16:15 | Operative Note - Dictated ---
DATE OF OPERATION: 11/24/2018 PREOPERATIVE DIAGNOSES: Hematuria, possible bladder mass, left hydronephrosis. POSTOPERATIVE DIAGNOSES: Hematuria, possible bladder mass, left hydronephrosis, large bladder tumor. PROCEDURE PERFORMED: Cystoscopy, urethral calibration, transurethral resection of extensive bladder tumor with fulguration, and right retrograde pyelogram. OPERATING SURGEON: Macho Allen M.D. ANESTHESIOLOGIST: Scottie Bates M.D. ANESTHESIA: General. INDICATION FOR PROCEDURE: This is a pleasant 83-year-old male. He has a history of hematuria. On CT scan, it was noted to have left hydronephrosis as well as what appeared to be a bladder mass and these findings were discussed with the patient's granddaughter, who is a decision maker and decision was made to proceed with the above procedure. Possible risks and complications of bleeding, infection, damage to the bladder, need for further surgery were discussed. No guarantees were implied. FINDINGS: The patient had what appeared to be a large bladder tumor that involved most of the left side of the bladder extending posteriorly and completely obliterating the left ureteral orifice. I was unable to place a stent on the left side. PROCEDURE IN DETAIL: Informed consent was obtained from the patient. The patient was brought to the operating room and then placed in supine position. After successful general anesthesia was induced, the patient was then placed in a modified dorsal lithotomy position, and genital area was then prepped and draped in usual sterile fashion. Preoperative IV antibiotics were administered. Time-out was performed. The urethra was gently dilated. Cystoscopy was then performed. The prostate was moderately obstructing . The bladder was inspected carefully. There appeared to be a large papillary and sessile mass involving the left side, completely obliterating the trigone on the left side extending posteriorly and laterally consistent with a high-grade urothelial carcinoma. The right ureteral orifice was visible. At this point, I could not see the left orifice. Continuous flow resectoscope was then inserted and using the bipolar system, the bladder tumor was resected. All visible tissue was resected and extensively fulgurated. This again involved a large area of the left side of the trigone laterally and posteriorly. Good hemostasis was obtained and the specimen was evacuated. Even with the resection, I was not able to identify the orifice. The right ureteral orifice was then preserved. Hemostasis was obtained. At this time, retrograde pyelogram was done on the right side, which showed some tortuosity, mild dilatation, but good drainage. A Robertson catheter was then placed, this irrigated well. The patient was awakened and was taken to the recovery room in stable condition. Blood loss was minimal. No complication. Macho Allen M.D. DR: GIOVANNY JOB#: [id number] CC:
--- NOTE | 2018-11-25 17:09 | Consultation ---
History of Present Illness General Date patient seen: Nov 25, 2018 Chief Complaint: Gastrointestinal Bleed Referring physician: BRETT JOHNSON Reason for Consultation: GI BLEED Present Illness HPI 83 y/o M with hx of Dm2, Dementia, HTN, BPH, urinary incontinence, AV dissociation w/ conduction s/o PPM, metabolic encephalopathy, UTI, seizure disorders presents to ED on 11/22 with blood in stool and abnormal thyroid function test. He was found to have new onset hyperthyroidism No diarrhea, vomiting or nausea, dysuria/frequency, f/c Allergies: Coded Allergies: No Known Allergies (Unverified , 04/09/16) Medication History Scheduled Lisinopril (Lisinopril*), 20 MG ORAL DAILY Metformin Hcl (Glucophage), 1,000 MG ORAL EVERY 12 HOURS Miscellaneous Medications Unable to Obtain Medications (Unable To Obtain Meds), (Reported) Patient History Healthcare decision maker Resuscitation status Full Code Advanced Directive on File Patient History Narrative PHY Pmhx: as above Shx: No smoking, alcohol, or drug use. Fhx: non contributory Review of Systems All Other Systems: negative except mentioned in HPI Physical Exam Physical Exam Narrative GENERAL: The patient is awake, alert, responsive, very pleasant, but forgetful. HEAD AND NECK: Pupils are reactive to light. Extraocular movements intact. Neck was supple. No JVD. LUNGS: Good air entry. No wheezing or rales. Left side of the chest has a pacemaker. ABDOMEN: Soft, nondistended, and nontender. Positive bowel sounds. EXTREMITIES: No cyanosis, clubbing, or edema. NEUROLOGIC: SPED TEACHER II through XII grossly intact. Motor is 5/5 in all extremities. Gait was not assessed due to the patient's status. Last 24 Hour Vital Signs Date Time Temp Pulse Resp B/P (MAP) Pulse Ox O2 Delivery O2 Flow Rate FiO2 11/25/18 12:21 68 20 98 11/25/18 12:00 98.3 70 19 118/69 (85) 100 11/25/18 09:00 141/68 11/25/18 09:00 Room Air 11/25/18 08:00 98.3 82 18 141/68 (92) 99 11/25/18 04:00 98.2 87 17 156/80 (105) 100 11/25/18 00:17 99.0 96 20 145/60 (88) 100 11/24/18 21:06 167/75 11/24/18 21:06 167/75 11/24/18 20:11 Room Air 11/24/18 20:00 98.4 77 24 167/75 (105) 100 Intake and Output 11/24/18 11/25/18 19:00 07:00 Intake Total 1510 ml 900 ml Output Total 560 ml 1000 ml Balance 950 ml -100 ml Intake Oral 360 ml IV Total 1150 ml 900 ml Output Urine Total 550 ml 1000 ml Estimated Blood Loss 10 ml Laboratory Tests Test 11/25/18 04:45 White Blood Count 9.4 K/UL (4.8-10.8) Red Blood Count 3.38 M/UL (4.70-6.10) L Hemoglobin 10.5 G/DL (14.2-18.0) L Hematocrit 31.1 % (42.0-52.0) L Mean Corpuscular Volume 92 FL (80-99) Mean Corpuscular Hemoglobin 31.0 PG (27.0-31.0) Mean Corpuscular Hemoglobin Concent 33.6 G/DL (32.0-36.0) Red Cell Distribution Width 11.6 % (11.6-14.8) Platelet Count 127 K/UL (150-450) L Mean Platelet Volume 6.5 FL (6.5-10.1) Neutrophils (%) (Auto) 79.0 % (45.0-75.0) H Lymphocytes (%) (Auto) 12.2 % (20.0-45.0) L Monocytes (%) (Auto) 8.3 % (1.0-10.0) Eosinophils (%) (Auto) 0.0 % (0.0-3.0) Basophils (%) (Auto) 0.5 % (0.0-2.0) Erythrocyte Sedimentation Rate 53 MM/HR (0-20) H Sodium Level 143 MMOL/L (136-145) Potassium Level 3.9 MMOL/L (3.5-5.1) Chloride Level 108 MMOL/L (98-107) H Carbon Dioxide Level 29 MMOL/L (21-32) Anion Gap 6 mmol/L (5-15) Blood Urea Nitrogen 14 mg/dL (7-18) Creatinine 1.1 MG/DL (0.55-1.30) Estimat Glomerular Filtration Rate mL/min (>60) Glucose Level 187 MG/DL (74-106) H Calcium Level 8.5 MG/DL (8.5-10.1) Phosphorus Level 2.6 MG/DL (2.5-4.9) Magnesium Level 1.6 MG/DL (1.8-2.4) L Total Bilirubin 0.3 MG/DL (0.2-1.0) Aspartate Amino Transf (AST/SGOT) 15 U/L (15-37) Alanine Aminotransferase (ALT/SGPT) 24 U/L (12-78) Alkaline Phosphatase 72 U/L (46-116) C-Reactive Protein, Quantitative 3.8 mg/dL (0.00-0.90) H Total Protein 5.9 G/DL (6.4-8.2) L Albumin 2.5 G/DL (3.4-5.0) L Globulin 3.4 g/dL Albumin/Globulin Ratio 0.7 (1.0-2.7) L Height (Feet): 6 Height (Inches): 6.00 Weight (Pounds): 182 Medications Current Medications Medications (Trade) Dose Ordered Sig/Levi Route PRN Reason Start Time Stop Time Status Last Admin Dose Admin Acetaminophen (Tylenol) 650 mg Q4H PRN ORAL fever 11/22/18 13:30 12/22/18 13:29 Al Hydroxide/Mg Hydroxide (Mylanta II) 30 ml Q6H PRN ORAL dyspepsia 11/22/18 13:30 12/22/18 13:29 Ceftriaxone Sodium 1 gm/ Dextrose 55 ml @ 110 mls/hr Q24H IVPB 11/23/18 12:00 11/30/18 11:59 11/25/18 14:28 Dextrose (Dextrose 50%) 25 ml Q30M PRN IV Hypoglycemia 11/22/18 13:30 12/22/18 13:23 11/22/18 17:21 Dextrose (Dextrose 50%) 50 ml Q30M PRN IV hypoglycemia 11/22/18 13:30 12/22/18 13:29 Dextrose/Sodium Chloride 1,000 ml @ 75 mls/hr [id number] IV 11/22/18 13:16 12/22/18 13:15 11/25/18 05:48 Diphenhydramine HCl (Benadryl) 25 mg Q6H PRN ORAL Itching/Pruritis 11/22/18 13:30 12/22/18 13:29 Finasteride (Proscar) 5 mg DAILY ORAL 11/22/18 19:45 12/22/18 19:44 11/23/18 09:29 Hydralazine HCl (Apresoline) 50 mg Q6H PRN ORAL SBP > 160 11/22/18 17:30 12/22/18 17:29 11/24/18 21:06 Insulin Aspart (NovoLOG) BEFORE MEALS AND HS SUBQ 11/22/18 16:30 12/22/18 16:29 11/25/18 05:46 Irbesartan (Avapro) 150 mg BID ORAL 11/25/18 09:00 12/25/18 08:59 Lidocaine HCl (Xylocaine 1% 30ml) 30 ml ONCE INJ 11/25/18 14:03 11/25/18 23:59 Methimazole (Tapazole) 10 mg BID ORAL 11/24/18 09:00 12/24/18 08:59 11/24/18 17:48 Morphine Sulfate (Morphine Sulfate) 2 mg Q4H PRN IVP severe Pain (Pain Scale 7-10) 11/22/18 13:30 11/29/18 13:29 11/22/18 20:41 Nateglinide (Starlix) 60 mg TIAC ORAL 11/24/18 11:30 12/24/18 11:29 11/25/18 05:45 Nitroglycerin (Ntg) 0.4 mg Q5M X 3 DOSES PRN SL Prn Chest Pain 11/22/18 13:30 12/22/18 13:29 Ondansetron HCl (Zofran) 4 mg Q6H PRN IVP Nausea & Vomiting 11/22/18 13:30 12/22/18 13:29 Pantoprazole (Protonix) 40 mg EVERY 12 HOURS ORAL 11/24/18 21:00 12/24/18 20:59 11/24/18 21:06 Polyethylene Glycol (Miralax) 17 gm HSPRN PRN ORAL Constipation 11/22/18 13:30 12/22/18 13:29 Sucralfate (Carafate) 1 gm FOUR TIMES A DAY ORAL 11/24/18 21:00 12/24/18 20:59 11/25/18 14:28 Tamsulosin HCl (Flomax) 0.4 mg BEDTIME ORAL 11/22/18 21:00 12/22/18 20:59 11/24/18 21:06 Temazepam (Restoril) 15 mg HSPRN PRN ORAL Insomnia 11/22/18 13:30 11/29/18 13:29 11/22/18 20:40 Assessment/Plan Status Narrative Abx: Ceftriaxone 11/22- Assessment: Hematochezia -11/24 SP EGD/Colonoscopy: gastritis, hemorrhoids L hydronephrosis/L Hydroureter 2ry to extensive bladder tumor -11/25 SP Cystoscopy, urethral calibration, transurethral resection of extensive bladder tumor with fulguration, and right retrograde pyelogram. -Findings: The patient had what appeared to be a large bladder tumor that involved most of the left side of the bladder extending posteriorly and completely obliterating the left ureteral orifice. I was unable to place a stent on the left side. - -CT abd/p: Limited assessment of the GI tract, due to lack of enteric contrast administration. Moderate left hydronephrosis and hydroureter. Hydroureter extends to the bladder, where there is asymmetric posterolateral wall thickening raises concern for neoplasm. Further evaluation with cystoscopy should be considered. There is also generalized wall thickening, possibly on the basis of cystitis or chronic bladder outlet obstruction. No definite findings to suggest etiology of stated clinical history of GI bleed. Cholelithiasis. Basilar pulmonary atelectasis and equivocal slight interstitial congestion. L1 vertebral body compression fracture deformity, age indeterminate. Consider MRI for further evaluation if this is clinically relevant Afebrile NO leukocytosis -CXR: No acute process Pyuria Funguria -u/a wbc 10-15, nit +, leuk est +3; ucx <10 yeast Encephalopathy -Head CT: Chronic and age-related changes is noted. Negative for acute intracranial bleed or mass effect. 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 Will continue to follow along with you. Discussed with RN and Dr Hinkle. Tawny Darby M.D. Nov 25, 2018 17:09
--- NOTE | 2018-11-25 18:16 | Internal Med Progress Note ---
Subjective Physician Name Jean-Claude Peter Attending Physician Jaziel Lowe MD Current Medications Medications (Trade) Dose Ordered Sig/Levi Route PRN Reason Start Time Stop Time Status Last Admin Dose Admin Acetaminophen (Tylenol) 650 mg Q4H PRN ORAL fever 11/22/18 13:30 12/22/18 13:29 Al Hydroxide/Mg Hydroxide (Mylanta II) 30 ml Q6H PRN ORAL dyspepsia 11/22/18 13:30 12/22/18 13:29 Ceftriaxone Sodium 1 gm/ Dextrose 55 ml @ 110 mls/hr Q24H IVPB 11/23/18 12:00 11/30/18 11:59 11/25/18 14:28 Dextrose (Dextrose 50%) 25 ml Q30M PRN IV Hypoglycemia 11/22/18 13:30 12/22/18 13:23 11/22/18 17:21 Dextrose (Dextrose 50%) 50 ml Q30M PRN IV hypoglycemia 11/22/18 13:30 12/22/18 13:29 Dextrose/Sodium Chloride 1,000 ml @ 75 mls/hr [id number] IV 11/22/18 13:16 12/22/18 13:15 11/25/18 05:48 Diphenhydramine HCl (Benadryl) 25 mg Q6H PRN ORAL Itching/Pruritis 11/22/18 13:30 12/22/18 13:29 Finasteride (Proscar) 5 mg DAILY ORAL 11/22/18 19:45 12/22/18 19:44 11/23/18 09:29 Fluconazole (Diflucan) 200 mg DAILY ORAL 11/25/18 17:15 11/27/18 23:59 Hydralazine HCl (Apresoline) 50 mg Q6H PRN ORAL SBP > 160 11/22/18 17:30 12/22/18 17:29 11/24/18 21:06 Insulin Aspart (NovoLOG) BEFORE MEALS AND HS SUBQ 11/22/18 16:30 12/22/18 16:29 11/25/18 16:53 Irbesartan (Avapro) 150 mg BID ORAL 11/25/18 09:00 12/25/18 08:59 Lidocaine HCl (Xylocaine 1% 30ml) 30 ml ONCE INJ 11/25/18 14:03 11/25/18 23:59 Methimazole (Tapazole) 10 mg BID ORAL 11/24/18 09:00 12/24/18 08:59 11/24/18 17:48 Morphine Sulfate (Morphine Sulfate) 2 mg Q4H PRN IVP severe Pain (Pain Scale 7-10) 11/22/18 13:30 11/29/18 13:29 11/22/18 20:41 Nateglinide (Starlix) 60 mg TIAC ORAL 11/24/18 11:30 12/24/18 11:29 11/25/18 16:52 Nitroglycerin (Ntg) 0.4 mg Q5M X 3 DOSES PRN SL Prn Chest Pain 11/22/18 13:30 12/22/18 13:29 Ondansetron HCl (Zofran) 4 mg Q6H PRN IVP Nausea & Vomiting 11/22/18 13:30 12/22/18 13:29 Pantoprazole (Protonix) 40 mg EVERY 12 HOURS ORAL 11/24/18 21:00 12/24/18 20:59 11/24/18 21:06 Polyethylene Glycol (Miralax) 17 gm HSPRN PRN ORAL Constipation 11/22/18 13:30 12/22/18 13:29 Sucralfate (Carafate) 1 gm FOUR TIMES A DAY ORAL 11/24/18 21:00 12/24/18 20:59 11/25/18 14:28 Tamsulosin HCl (Flomax) 0.4 mg BEDTIME ORAL 11/22/18 21:00 12/22/18 20:59 11/24/18 21:06 Temazepam (Restoril) 15 mg HSPRN PRN ORAL Insomnia 11/22/18 13:30 11/29/18 13:29 11/22/18 20:40 Allergies: Coded Allergies: No Known Allergies (Unverified , 04/09/16) Subjective 83 YO M admitted with gastrointestinal hemorrhage. Await endoscopy and colonoscopy. Cover for Int Uriel-Dr Lowe Objective Last Vital Signs Date Time Temp Pulse Resp B/P (MAP) Pulse Ox O2 Delivery O2 Flow Rate FiO2 11/25/18 12:21 68 20 98 11/25/18 12:00 98.3 118/69 (85) 11/25/18 09:00 Room Air 11/24/18 13:00 3 Laboratory Tests Test 11/25/18 04:45 White Blood Count 9.4 K/UL (4.8-10.8) Red Blood Count 3.38 M/UL (4.70-6.10) L Hemoglobin 10.5 G/DL (14.2-18.0) L Hematocrit 31.1 % (42.0-52.0) L Mean Corpuscular Volume 92 FL (80-99) Mean Corpuscular Hemoglobin 31.0 PG (27.0-31.0) Mean Corpuscular Hemoglobin Concent 33.6 G/DL (32.0-36.0) Red Cell Distribution Width 11.6 % (11.6-14.8) Platelet Count 127 K/UL (150-450) L Mean Platelet Volume 6.5 FL (6.5-10.1) Neutrophils (%) (Auto) 79.0 % (45.0-75.0) H Lymphocytes (%) (Auto) 12.2 % (20.0-45.0) L Monocytes (%) (Auto) 8.3 % (1.0-10.0) Eosinophils (%) (Auto) 0.0 % (0.0-3.0) Basophils (%) (Auto) 0.5 % (0.0-2.0) Erythrocyte Sedimentation Rate 53 MM/HR (0-20) H Sodium Level 143 MMOL/L (136-145) Potassium Level 3.9 MMOL/L (3.5-5.1) Chloride Level 108 MMOL/L (98-107) H Carbon Dioxide Level 29 MMOL/L (21-32) Anion Gap 6 mmol/L (5-15) Blood Urea Nitrogen 14 mg/dL (7-18) Creatinine 1.1 MG/DL (0.55-1.30) Estimat Glomerular Filtration Rate mL/min (>60) Glucose Level 187 MG/DL (74-106) H Calcium Level 8.5 MG/DL (8.5-10.1) Phosphorus Level 2.6 MG/DL (2.5-4.9) Magnesium Level 1.6 MG/DL (1.8-2.4) L Total Bilirubin 0.3 MG/DL (0.2-1.0) Aspartate Amino Transf (AST/SGOT) 15 U/L (15-37) Alanine Aminotransferase (ALT/SGPT) 24 U/L (12-78) Alkaline Phosphatase 72 U/L (46-116) C-Reactive Protein, Quantitative 3.8 mg/dL (0.00-0.90) H Total Protein 5.9 G/DL (6.4-8.2) L Albumin 2.5 G/DL (3.4-5.0) L Globulin 3.4 g/dL Albumin/Globulin Ratio 0.7 (1.0-2.7) L Intake and Output 11/24/18 11/25/18 19:00 07:00 Intake Total 1510 ml 900 ml Output Total 560 ml 1000 ml Balance 950 ml -100 ml Intake Oral 360 ml IV Total 1150 ml 900 ml Output Urine Total 550 ml 1000 ml Estimated Blood Loss 10 ml Objective PHYSICAL EXAMINATION: GENERAL: The patient is awake, alert, responsive, very pleasant, but forgetful. HEAD AND NECK: Pupils are reactive to light. Extraocular movements intact. Neck was supple. No JVD. LUNGS: Good air entry. No wheezing or rales. Left side of the chest has a pacemaker. ABDOMEN: Soft, nondistended, and nontender. Positive bowel sounds. EXTREMITIES: No cyanosis, clubbing, or edema. NEUROLOGIC: COUNSELING CENTER DIRECTOR II through XII grossly intact. Motor is 5/5 in all extremities. Gait was not assessed due to the patient's status. RECTAL/GENITOURINARY: Refused and deferred. Assessment/Plan Assessment/Plan ASSESSMENT: 1. Gastrointestinal bleed. 2. Anemia possible due to acute blood loss. 3. Hypokalemia. 4. Acute urinary tract infection. 5. Moderate left hydronephrosis with hydroureter. 6. Cardiac arrhythmia status post pacemaker. 7. Diabetes type 2. 8. Hypertension. 9. Gastritis 10. hemorrhoids PLAN: 1. Admit the patient to medical floor. 2. We will follow up with the laboratory. 3. Clear liquid diet. 4. Gastrointestinal consultation with Dr. Hernandez. 5. Code status is Full Code at this time. 6. We will follow up with the Urology consultation, Dr. Allen. 7. S/P Esophagogastroduodenoscopy and colonoscopy 11/24/18. 8. We will follow up with urine culture and Cardiology consultation with Dr. Nj Valenzuela. 9. Protonix 40 mg BID and carafate 1 gm QID Peter,Jean-Claude MD Nov 25, 2018 18:16
[2018-11-25] MEDS: Fluconazole 100mg tab ORAL SCH (18:53)
--- NOTE | 2018-11-25 19:39 | NUR ---
HAND-OFF: Report given to DONELL Grove.
[2018-11-25 20:00] VITALS: BP 137/71
--- NOTE | 2018-11-25 20:00 | NUR ---
NURSE NOTES: Received patient awake,verbal,follows simple command,resting in bed comfortably without complaints.
[2018-11-25] MEDS: Tamsulosin 0.4mg cap ORAL SCH (21:31)
[2018-11-26] VITALS (15 sets, daily range): BP systolic 135–176; BP diastolic 68–97
[2018-11-26] MEDS: NovoLOG Insulin Flexpen SUBQ SCH ×4 (06:10→21:14)
[2018-11-26] MEDS: Nateglinide 60mg tab ORAL SCH ×3 (06:10→16:42)
[2018-11-26 06:31] LABS: BASOPHILS % (AUTO) 0.6 % (0.0-2.0); HEMOGLOBIN 9.8 G/DL (14.2-18.0); LYMPHOCYTES % (AUTO) 12.7 % (20.0-45.0); MEAN CORPUSCULAR VOLUME 92 FL (80-99); MONOCYTES % (AUTO) 7.3 % (1.0-10.0); NEUTROPHILS % (AUTO) 79.3 % (45.0-75.0); PLATELET COUNT 122 K/UL (150-450); RED BLOOD COUNT 3.14 M/UL (4.70-6.10); RED CELL DISTRIBUTION WIDTH 11.4 % (11.6-14.8)
[2018-11-26 06:45] LABS: ALANINE AMINOTRANSFERASE 22 U/L (12-78); ALBUMIN 2.5 G/DL (3.4-5.0); ALBUMIN/GLOBULIN RATIO 0.7 (1.0-2.7); ALKALINE PHOSPHATASE 79 U/L (46-116); ANION GAP 6 mmol/L (5-15); ASPARTATE AMINO TRANSFERASE 10 U/L (15-37); BILIRUBIN,TOTAL 0.3 MG/DL (0.2-1.0); BLOOD UREA NITROGEN 18 mg/dL (7-18); CALCIUM 8.8 MG/DL (8.5-10.1); CARBON DIOXIDE 28 MMOL/L (21-32); CHLORIDE 109 MMOL/L (98-107); CREATININE 1.2 MG/DL (0.55-1.30); POTASSIUM 4.2 MMOL/L (3.5-5.1); SODIUM 143 MMOL/L (136-145)
[2018-11-26 07:10] LABS: PHOSPHORUS 2.6 MG/DL (2.5-4.9)
--- NOTE | 2018-11-26 07:21 | NUR ---
HAND-OFF: Report given to Miles Zazueta RN.
[2018-11-26] MEDS: Fluconazole 100mg tab ORAL SCH (08:18)
[2018-11-26] MEDS: Irbesartan 150mg tablet ORAL SCH ×2 (08:18→17:19)
[2018-11-26] MEDS: Sucralfate 1gm tab ORAL SCH ×4 (08:18→21:11)
--- NOTE | 2018-11-26 08:24 | Infectious Diseases Prog Note ---
Assessment/Plan Assessment/Plan Abx: Ceftriaxone 11/22- Assessment: Hematochezia -11/24 SP EGD/Colonoscopy: gastritis, hemorrhoids L hydronephrosis/L Hydroureter 2ry to extensive bladder tumor -11/25 SP Cystoscopy, urethral calibration, transurethral resection of extensive bladder tumor with fulguration, and right retrograde pyelogram. -Findings: The patient had what appeared to be a large bladder tumor that involved most of the left side of the bladder extending posteriorly and completely obliterating the left ureteral orifice. I was unable to place a stent on the left side. - -CT abd/p: Limited assessment of the GI tract, due to lack of enteric contrast administration. Moderate left hydronephrosis and hydroureter. Hydroureter extends to the bladder, where there is asymmetric posterolateral wall thickening raises concern for neoplasm. Further evaluation with cystoscopy should be considered. There is also generalized wall thickening, possibly on the basis of cystitis or chronic bladder outlet obstruction. No definite findings to suggest etiology of stated clinical history of GI bleed. Cholelithiasis. Basilar pulmonary atelectasis and equivocal slight interstitial congestion. L1 vertebral body compression fracture deformity, age indeterminate. Consider MRI for further evaluation if this is clinically relevant Afebrile NO leukocytosis -CXR: No acute process Pyuria Funguria -u/a wbc 10-15, nit +, leuk est +3; ucx <10 yeast Encephalopathy -Head CT: Chronic and age-related changes is noted. Negative for acute intracranial bleed or mass effect. 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 Will continue to follow along with you. Discussed with RN and Dr Hinkle. Subjective Allergies: Coded Allergies: No Known Allergies (Unverified , 04/09/16) Subjective afebrile no leukocytosis Objective Vital Signs Last 24 Hour Vital Signs Date Time Temp Pulse Resp B/P (MAP) Pulse Ox O2 Delivery O2 Flow Rate FiO2 11/26/18 08:18 149/83 11/26/18 08:00 98.5 80 16 149/83 (105) 100 11/26/18 04:00 98.5 100 16 138/84 (102) 100 11/26/18 00:00 98.9 78 17 135/68 (90) 99 11/25/18 20:48 Room Air 11/25/18 20:00 98.5 96 17 137/71 (93) 100 11/25/18 18:53 143/73 11/25/18 16:00 97.7 94 20 109/73 (85) 92 11/25/18 16:00 97.9 62 20 143/73 (96) 100 11/25/18 12:21 68 20 98 11/25/18 12:00 98.3 70 19 118/69 (85) 100 11/25/18 09:00 141/68 11/25/18 09:00 Room Air Height (Feet): 6 Height (Inches): 6.00 Weight (Pounds): 182 Laboratory Tests Test 11/26/18 06:06 White Blood Count 9.0 K/UL (4.8-10.8) Red Blood Count 3.14 M/UL (4.70-6.10) L Hemoglobin 9.8 G/DL (14.2-18.0) L Hematocrit 29.0 % (42.0-52.0) L Mean Corpuscular Volume 92 FL (80-99) Mean Corpuscular Hemoglobin 31.3 PG (27.0-31.0) H Mean Corpuscular Hemoglobin Concent 33.9 G/DL (32.0-36.0) Red Cell Distribution Width 11.4 % (11.6-14.8) L Platelet Count 122 K/UL (150-450) L Mean Platelet Volume 6.6 FL (6.5-10.1) Neutrophils (%) (Auto) 79.3 % (45.0-75.0) H Lymphocytes (%) (Auto) 12.7 % (20.0-45.0) L Monocytes (%) (Auto) 7.3 % (1.0-10.0) Eosinophils (%) (Auto) 0.0 % (0.0-3.0) Basophils (%) (Auto) 0.6 % (0.0-2.0) Erythrocyte Sedimentation Rate Pending Sodium Level 143 MMOL/L (136-145) Potassium Level 4.2 MMOL/L (3.5-5.1) Chloride Level 109 MMOL/L (98-107) H Carbon Dioxide Level 28 MMOL/L (21-32) Anion Gap 6 mmol/L (5-15) Blood Urea Nitrogen 18 mg/dL (7-18) Creatinine 1.2 MG/DL (0.55-1.30) Estimat Glomerular Filtration Rate mL/min (>60) Glucose Level 190 MG/DL (74-106) H Calcium Level 8.8 MG/DL (8.5-10.1) Phosphorus Level 2.6 MG/DL (2.5-4.9) Magnesium Level 1.7 MG/DL (1.8-2.4) L Total Bilirubin 0.3 MG/DL (0.2-1.0) Aspartate Amino Transf (AST/SGOT) 10 U/L (15-37) L Alanine Aminotransferase (ALT/SGPT) 22 U/L (12-78) Alkaline Phosphatase 79 U/L (46-116) C-Reactive Protein, Quantitative 2.1 mg/dL (0.00-0.90) H Total Protein 6.2 G/DL (6.4-8.2) L Albumin 2.5 G/DL (3.4-5.0) L Globulin 3.7 g/dL Albumin/Globulin Ratio 0.7 (1.0-2.7) L Current Medications Medications (Trade) Dose Ordered Sig/Levi Route PRN Reason Start Time Stop Time Status Last Admin Dose Admin Acetaminophen (Tylenol) 650 mg Q4H PRN ORAL fever 11/22/18 13:30 12/22/18 13:29 Al Hydroxide/Mg Hydroxide (Mylanta II) 30 ml Q6H PRN ORAL dyspepsia 11/22/18 13:30 12/22/18 13:29 Ceftriaxone Sodium 1 gm/ Dextrose 55 ml @ 110 mls/hr Q24H IVPB 11/23/18 12:00 11/30/18 11:59 11/25/18 14:28 Dextrose (Dextrose 50%) 25 ml Q30M PRN IV Hypoglycemia 11/22/18 13:30 12/22/18 13:23 11/22/18 17:21 Dextrose (Dextrose 50%) 50 ml Q30M PRN IV hypoglycemia 11/22/18 13:30 12/22/18 13:29 Dextrose/Sodium Chloride 1,000 ml @ 75 mls/hr [id number] IV 11/22/18 13:16 12/22/18 13:15 11/25/18 21:40 Diphenhydramine HCl (Benadryl) 25 mg Q6H PRN ORAL Itching/Pruritis 11/22/18 13:30 12/22/18 13:29 Finasteride (Proscar) 5 mg DAILY ORAL 11/22/18 19:45 12/22/18 19:44 11/26/18 08:18 Fluconazole (Diflucan) 200 mg DAILY ORAL 11/25/18 17:15 11/27/18 23:59 11/26/18 08:18 Hydralazine HCl (Apresoline) 50 mg Q6H PRN ORAL SBP > 160 11/22/18 17:30 12/22/18 17:29 11/24/18 21:06 Insulin Aspart (NovoLOG) BEFORE MEALS AND HS SUBQ 11/22/18 16:30 12/22/18 16:29 11/25/18 21:32 Irbesartan (Avapro) 150 mg BID ORAL 11/25/18 09:00 12/25/18 08:59 11/26/18 08:18 Methimazole (Tapazole) 10 mg BID ORAL 11/24/18 09:00 12/24/18 08:59 11/26/18 08:17 Morphine Sulfate (Morphine Sulfate) 2 mg Q4H PRN IVP severe Pain (Pain Scale 7-10) 11/22/18 13:30 11/29/18 13:29 11/22/18 20:41 Nateglinide (Starlix) 60 mg TIAC ORAL 11/24/18 11:30 12/24/18 11:29 11/25/18 16:52 Nitroglycerin (Ntg) 0.4 mg Q5M X 3 DOSES PRN SL Prn Chest Pain 11/22/18 13:30 12/22/18 13:29 Ondansetron HCl (Zofran) 4 mg Q6H PRN IVP Nausea & Vomiting 11/22/18 13:30 12/22/18 13:29 Pantoprazole (Protonix) 40 mg EVERY 12 HOURS ORAL 11/24/18 21:00 12/24/18 20:59 11/26/18 08:17 Polyethylene Glycol (Miralax) 17 gm HSPRN PRN ORAL Constipation 11/22/18 13:30 12/22/18 13:29 Sucralfate (Carafate) 1 gm FOUR TIMES A DAY ORAL 11/24/18 21:00 12/24/18 20:59 11/26/18 08:18 Tamsulosin HCl (Flomax) 0.4 mg BEDTIME ORAL 11/22/18 21:00 12/22/18 20:59 11/25/18 21:31 Temazepam (Restoril) 15 mg HSPRN PRN ORAL Insomnia 11/22/18 13:30 11/29/18 13:29 11/22/18 20:40 Tawny Darby M.D. Nov 26, 2018 08:24
[2018-11-26] MEDS ORDERED: Lidocaine 1% Plain 30 ml INJ PRN (08:26)
--- NOTE | 2018-11-26 09:12 | NUR ---
NURSE NOTES: pt awake alert, no distress. no sob. call light within reach. bed in lowest position, locked. will monitor.
[2018-11-26] MEDS ORDERED: Heparin1,000 units/500ml Premix(Conc:2 units/ml) INJ PRN (09:15)
--- NOTE | 2018-11-26 10:23 | Urology Progress Note ---
Assessment/Plan Assessment: 1. Left hydronephrosis. 2. Hematuria. 3. Pyuria. 4. Proteinuria. 5. Benign prostatic hypertrophy. 6. Incontinence. 7. Neurogenic bladder. 8. Cystitis. 9. Bladder cancer. 10. POD # 2, cysto/TURBT Plan: monitor clinically keep hernandez indwelling for now hand irrigated and do PRN f/u on final path left hydro secondary to bladder tumor unable to place left ureteral stent will need left nephrostomy/antegrade ureteral stent by IR planned for today keep NPO flomax and proscar diflucan added d/w nursing staff Subjective Allergies: Coded Allergies: No Known Allergies (Unverified , 04/09/16) Subjective all noted, awaiting nephrostomy placement Objective Last 24 Hour Vital Signs Date Time Temp Pulse Resp B/P (MAP) Pulse Ox O2 Delivery O2 Flow Rate FiO2 11/26/18 10:12 76 16 4.0 11/26/18 09:00 Room Air 11/26/18 08:18 149/83 11/26/18 08:00 98.5 80 16 149/83 (105) 100 11/26/18 04:00 98.5 100 16 138/84 (102) 100 11/26/18 00:00 98.9 78 17 135/68 (90) 99 11/25/18 20:48 Room Air 11/25/18 20:00 98.5 96 17 137/71 (93) 100 11/25/18 18:53 143/73 11/25/18 16:00 97.7 94 20 109/73 (85) 92 11/25/18 16:00 97.9 62 20 143/73 (96) 100 11/25/18 12:21 68 20 98 11/25/18 12:00 98.3 70 19 118/69 (85) 100 Intake and Output 11/25/18 11/26/18 19:00 07:00 Intake Total 860 ml 675 ml Output Total 1545 ml 1500 ml Balance -685 ml -825 ml Intake Oral 380 ml IV Total 480 ml 675 ml Output Urine Total 1545 ml 1500 ml # Bowel Movements 1 1 Microbiology Date/Time Source Procedure Growth Status 11/22/18 12:20 Nasal Nares MRSA Culture - Final NO METHICILLIN RESISTANT STAPH AUREUS... Complete 11/22/18 11:15 Urine,Clean Catch Urine Culture - Final YEAST Complete 11/22/18 12:20 Rectal Mucosa VRE Culture - Final NO VANCOMYCIN RESISTANT ENTEROCOCCUS ... Complete 11/22/18 12:20 Rectal Mucosa - Final NO CARBAPENEM-RESISTANT ENTEROBACTERI... Complete Current Medications Medications (Trade) Dose Ordered Sig/Levi Route PRN Reason Start Time Stop Time Status Last Admin Dose Admin Acetaminophen (Tylenol) 650 mg Q4H PRN ORAL fever 11/22/18 13:30 12/22/18 13:29 Al Hydroxide/Mg Hydroxide (Mylanta II) 30 ml Q6H PRN ORAL dyspepsia 11/22/18 13:30 12/22/18 13:29 Ceftriaxone Sodium 1 gm/ Dextrose 55 ml @ 110 mls/hr Q24H IVPB 11/23/18 12:00 11/30/18 11:59 11/25/18 14:28 Dextrose (Dextrose 50%) 25 ml Q30M PRN IV Hypoglycemia 11/22/18 13:30 12/22/18 13:23 11/22/18 17:21 Dextrose (Dextrose 50%) 50 ml Q30M PRN IV hypoglycemia 11/22/18 13:30 12/22/18 13:29 Dextrose/Sodium Chloride 1,000 ml @ 75 mls/hr [id number] IV 11/22/18 13:16 12/22/18 13:15 11/25/18 21:40 Diphenhydramine HCl (Benadryl) 25 mg Q6H PRN ORAL Itching/Pruritis 11/22/18 13:30 12/22/18 13:29 Finasteride (Proscar) 5 mg DAILY ORAL 11/22/18 19:45 12/22/18 19:44 11/26/18 08:18 Fluconazole (Diflucan) 200 mg DAILY ORAL 11/25/18 17:15 11/27/18 23:59 11/26/18 08:18 Heparin Sodium/ Sodium Chloride (Heparin 1000 units/500ml Premix) 1,000 unit ONCE PRN INJ radiology 11/26/18 09:15 11/26/18 23:59 Hydralazine HCl (Apresoline) 50 mg Q6H PRN ORAL SBP > 160 11/22/18 17:30 12/22/18 17:29 11/24/18 21:06 Insulin Aspart (NovoLOG) BEFORE MEALS AND HS SUBQ 11/22/18 16:30 12/22/18 16:29 11/25/18 21:32 Irbesartan (Avapro) 150 mg BID ORAL 11/25/18 09:00 12/25/18 08:59 11/26/18 08:18 Lidocaine HCl (Xylocaine 1% 30ml) 30 ml ONCE PRN INJ RADIOLOGY USE 11/26/18 08:26 11/26/18 23:59 Methimazole (Tapazole) 10 mg BID ORAL 11/24/18 09:00 12/24/18 08:59 11/26/18 08:17 Morphine Sulfate (Morphine Sulfate) 2 mg Q4H PRN IVP severe Pain (Pain Scale 7-10) 11/22/18 13:30 11/29/18 13:29 11/22/18 20:41 Nateglinide (Starlix) 60 mg TIAC ORAL 11/24/18 11:30 12/24/18 11:29 11/25/18 16:52 Nitroglycerin (Ntg) 0.4 mg Q5M X 3 DOSES PRN SL Prn Chest Pain 11/22/18 13:30 12/22/18 13:29 Ondansetron HCl (Zofran) 4 mg Q6H PRN IVP Nausea & Vomiting 11/22/18 13:30 12/22/18 13:29 Pantoprazole (Protonix) 40 mg EVERY 12 HOURS ORAL 11/24/18 21:00 12/24/18 20:59 11/26/18 08:17 Polyethylene Glycol (Miralax) 17 gm HSPRN PRN ORAL Constipation 11/22/18 13:30 12/22/18 13:29 Sucralfate (Carafate) 1 gm FOUR TIMES A DAY ORAL 11/24/18 21:00 12/24/18 20:59 11/26/18 08:18 Tamsulosin HCl (Flomax) 0.4 mg BEDTIME ORAL 11/22/18 21:00 12/22/18 20:59 11/25/18 21:31 Temazepam (Restoril) 15 mg HSPRN PRN ORAL Insomnia 11/22/18 13:30 11/29/18 13:29 11/22/18 20:40 Laboratory Tests 11/26/18 06:06: White Blood Count 9.0, Red Blood Count 3.14L, Hemoglobin 9.8L, Hematocrit 29.0L , Mean Corpuscular Volume 92, Mean Corpuscular Hemoglobin 31.3H, Mean Corpuscular Hemoglobin Concent 33.9, Red Cell Distribution Width 11.4L, Platelet Count 122L, Mean Platelet Volume 6.6, Neutrophils (%) (Auto) 79.3H, Lymphocytes (%) (Auto) 12.7L, Monocytes (%) (Auto) 7.3, Eosinophils (%) (Auto) 0.0, Basophils (%) (Auto) 0.6, Erythrocyte Sedimentation Rate 94H, Sodium Level 143, Potassium Level 4.2, Chloride Level 109H, Carbon Dioxide Level 28, Anion Gap 6, Blood Urea Nitrogen 18, Creatinine 1.2, Estimat Glomerular Filtration Rate , Glucose Level 190H, Calcium Level 8.8, Phosphorus Level 2.6, Magnesium Level 1.7L, Total Bilirubin 0.3, Aspartate Amino Transf (AST/SGOT) 10L, Alanine Aminotransferase (ALT/SGPT) 22, Alkaline Phosphatase 79, C-Reactive Protein, Quantitative 2.1H, Total Protein 6.2L, Albumin 2.5L, Globulin 3.7, Albumin/ Globulin Ratio 0.7L Height (Feet): 6 Height (Inches): 6.00 Weight (Pounds): 182 Objective exam stable condom cath, urine slightly blood-tinged, wes prelim path noted Macho Allen MD Nov 26, 2018 10:23
[2018-11-26] MEDS: D5 1/2NS 1,000 ML IV SCH ×2 (10:42→23:56)
--- NOTE | 2018-11-26 10:59 | Pre-Procedure Note/Attestation ---
Pre-Procedure Note/Attestation Complete Prior to Procedure Planned Procedure: left Procedure Narrative: Percutaneous nephrostomy tube placement, nephrostogram, possible ureteral stent placement Indications for Procedure Pre-Operative Diagnosis: obstructing bladder lesion Attestation I attest that I discussed the nature of the procedure; its benefits; risks and complications; and alternatives (and the risks and benefits of such alternatives ), prior to the procedure, with the patient (or the patient's legal employee relations representative). I attest that I re-evaluated the patient just prior to the surgery and that there has been no change in the patient's H&P, except as documented below: Rajeev Kong M.D. Nov 26, 2018 10:59
--- NOTE | 2018-11-26 11:15 | Neurology Progress Note ---
Interim History Interim History ROS Limited/Unobtainable: No Events: No new events Interim History Weakness s/p CVA at baseline Review of Systems All Systems: reviewed and negative except above Objective Physical Exam Last Vital Signs Date Time Temp Pulse Resp B/P (MAP) Pulse Ox O2 Delivery O2 Flow Rate FiO2 11/26/18 10:40 76 18 170/94 (119) 97 11/26/18 10:12 4.0 11/26/18 09:00 Room Air 11/26/18 08:00 98.5 Laboratory Tests Test 11/26/18 06:06 White Blood Count 9.0 K/UL (4.8-10.8) Red Blood Count 3.14 M/UL (4.70-6.10) L Hemoglobin 9.8 G/DL (14.2-18.0) L Hematocrit 29.0 % (42.0-52.0) L Mean Corpuscular Volume 92 FL (80-99) Mean Corpuscular Hemoglobin 31.3 PG (27.0-31.0) H Mean Corpuscular Hemoglobin Concent 33.9 G/DL (32.0-36.0) Red Cell Distribution Width 11.4 % (11.6-14.8) L Platelet Count 122 K/UL (150-450) L Mean Platelet Volume 6.6 FL (6.5-10.1) Neutrophils (%) (Auto) 79.3 % (45.0-75.0) H Lymphocytes (%) (Auto) 12.7 % (20.0-45.0) L Monocytes (%) (Auto) 7.3 % (1.0-10.0) Eosinophils (%) (Auto) 0.0 % (0.0-3.0) Basophils (%) (Auto) 0.6 % (0.0-2.0) Erythrocyte Sedimentation Rate 94 MM/HR (0-20) H Sodium Level 143 MMOL/L (136-145) Potassium Level 4.2 MMOL/L (3.5-5.1) Chloride Level 109 MMOL/L (98-107) H Carbon Dioxide Level 28 MMOL/L (21-32) Anion Gap 6 mmol/L (5-15) Blood Urea Nitrogen 18 mg/dL (7-18) Creatinine 1.2 MG/DL (0.55-1.30) Estimat Glomerular Filtration Rate mL/min (>60) Glucose Level 190 MG/DL (74-106) H Calcium Level 8.8 MG/DL (8.5-10.1) Phosphorus Level 2.6 MG/DL (2.5-4.9) Magnesium Level 1.7 MG/DL (1.8-2.4) L Total Bilirubin 0.3 MG/DL (0.2-1.0) Aspartate Amino Transf (AST/SGOT) 10 U/L (15-37) L Alanine Aminotransferase (ALT/SGPT) 22 U/L (12-78) Alkaline Phosphatase 79 U/L (46-116) C-Reactive Protein, Quantitative 2.1 mg/dL (0.00-0.90) H Total Protein 6.2 G/DL (6.4-8.2) L Albumin 2.5 G/DL (3.4-5.0) L Globulin 3.7 g/dL Albumin/Globulin Ratio 0.7 (1.0-2.7) L Impression/Recommendations Problems: (1) Altered level of consciousness Assessment & Plan: CT 11/22/18: Chronic and age-related changes is noted. 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 Status: stable, unchanged Bailey Appiah N.P. Nov 26, 2018 11:15
--- NOTE | 2018-11-26 11:57 | NUR ---
NURSE NOTES: pt awake alert,no distress. no c/o pain. left nephrostomy draining serosanguinous fluid, dressing is clean dry and intact. call light within reach. will monitor.
--- NOTE | 2018-11-26 12:09 | Diagnostic Imaging Report ---
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 Request made for percutaneous gastrostomy tube and possible percutaneous stent placement Procedures performed: * Cutaneous left antegrade nephrostogram * Percutaneous left nephrostomy tube placement Total blood loss: Less than 2 mL Medications: 1% lidocaine Complications: None immediate Technique and findings: Case discussed at length with both the patient in person and the patient's granddaughter Celestina via telephone conversation. Technical aspects of the procedures as well as potential risks of the procedure was discussed at length. Potential risks discussed included bleeding, infection, nontarget injury/injury to surrounding structures including adjacent organs like the spleen, colon or adjacent arteries including intercostal arteries. Regarding risks of bleeding the possibility of significant bleeding which may require additional treatment such as angiography and possible embolization was also discussed. Also discussed the possibility that we would not be able to cross the distal lesion and a ureteral stent may not be able to be placed. Appropriate questions were asked. Informed consent was obtained. Patient was positioned prone on the table in the left flank was prepped and draped in the usual sterile fashion including use of sterile ultrasound probe cover and sterile ultrasound gel. Preprocedure timeout was performed, as per protocol. The left kidney was assessed with ultrasound. Difficult anatomy was noted with the left-sided ribs laying low making the left lower pole accessible from a subcostal approach. Intercoastal window was noted. Appropriate access site was anesthetized with 1% lidocaine. A midpole calyx was accessed under real-time ultrasound guidance utilizing 21-gauge needle. Sonographic image of needle access was saved for archival the PACS. Contrast was injected and nephrostogram was obtained. A 0.018 wire was advanced via the needle and exchange made over the wire for the transaxial dilator, which was advanced into the wire and into the ureter. A 0.018 wire was exchanged for a 0.035 wire and exchange made of a wire for a 5 Jordanian Kumpe catheter. Multiple tendons are made trying to recanalize the obstruction at the distal ureter without success. Finally the procedures tract was dilated over an Amplatz wire followed by placement of an 8.5 Jordanian locking pigtail nephrostomy tube was coiled and locked within the renal pelvis. Completion nephrostogram demonstrates fat saturated positioning of the nephrostomy tube. Tube was connected to a drainage bag. It was secured to the skin with 2-0 suture and a fixation device. Sterile dressings were applied. Patient left the department in stable condition. IMPRESSION: Left-sided hydroureteronephrosis to the level of obstruction at the ureterovesicular junction, the area of the bladder mass noted on CT of 11/22/2018. Unable to recannulate the ureter and pass into the bladder despite multiple attempts. No ureteral stent could be placed. 8.5 F nephrostomy tube was successfully placed.
[2018-11-26] MEDS: cefTRIAXone 1 GM in D5W 55 ML IVPB SCH (12:46)
--- NOTE | 2018-11-26 13:04 | NUR ---
SWALLOW STATUS: UPDATES: PER CT HEAD SCAN ON 11/22/18: Chronic and age-related changes is noted. Negative for acute intracranial bleed or mass effect. 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 SUBJECTIVE: ALERT AND EATING LUNCH. ABLE TO EXPRESS NEEDS. NO DENTITION AND LOST HIS DENTURES. OBJECTIVE/ASSESSMENT: NOW CLEARED FOR GI FOR SOLID FOODS NOW. GOALS FOR INTAKE MET AT 100% WHEN FED BY THE HUMAN RESOURCES TALENT MANAGER (ROCHELLE) ON THE SOFT, EASY CHEW DIET AND THIN LIQUIDS. TAKES LONGER TO CHEW AND DOES NOT HAVE DENTITION/DENTURES. PER HUMAN RESOURCES TALENT MANAGER, NO OVERT S/S OF ASPIRATION. GOALS MET FOR RN (ANGELICA) AND HUMAN RESOURCES TALENT MANAGER (SCOTT) TRAINED/EDUCATED IN POSTED ASPIRATION AND REFLUX PRECAUTIONS (ON PROTONIX GERD MEDS). MODIFIED BARIUM SWALLOW NOT COMPLETED DUE TO SCHEDULING CONFLICTS. WILL HOLD ON SPECIFIC TX OR SWALLOW EX UNTIL STUDY COMPLETED IP OR OP. PLAN: DOWNGRADE TO [facility] SOFT FINELY CHOPPED AND CONTINUE WITH THIN LIQUIDS (SINCE TAKES TO LONG TO CHEW ON SOFT CHEW DIET). CONTINUE WITH POSTED ASP/REFLUX PRECAUTIONS.
--- NOTE | 2018-11-26 13:23 | NUR ---
NURSE NOTES: relayed mg level to dr Manan maldonado order for mg 2gm iv x1
[2018-11-26] MEDS: HydrALAZINE 50mg tab ORAL PRN (13:26)
--- NOTE | 2018-11-26 13:36 | NUR ---
PALEONTOLOGY TEACHERSLIPPER MAKER SI: GASTROINTESTINAL BLEED VS: BP 159/68, P 79, T 99.0, RR 13, SpO2 98 WBC 3.14, Hgb 9.8, Hct 29.0 NEPHROSTOMY TUBE PLACEMENT IMPRESSION: Left-sided hydroureteronephrosis to the level of obstruction at the ureterovesicular junction. IS:DIFLUCAN 200mg AVAPRO 150mg PROTONIX 40mg SUCRALFATE 1gm STARLIX 60mg TAPAZOLE 10mg CEFTRIAXONE 55ml IVPB FLOMAX 0.4mg PROSCAR 5mg APRESOLINE 50mg NOVOLOG SUBQ MED/SURG STATUS
[2018-11-26] MEDS ORDERED: D5 1/2NS 1000ml IV ONE (13:56)
--- NOTE | 2018-11-26 14:17 | Pulmonology Progress Note ---
Assessment/Plan Problems: (1) Lower GI bleed (2) Hydronephrosis (3) Anemia (4) Bladder neoplasm (5) Chronic cerebrovascular accident (CVA) (6) Diabetes mellitus (7) Alzheimer's dementia (8) HTN (hypertension) Assessment/Plan nephrostomy in place. tolerated cystoscopy follow up with pathology, still not available. looks comfortable sliding scale monitor bp prbc prn check H/H dvt prophylaxis. Subjective ROS Limited/Unobtainable: No Constitutional: Reports: no symptoms HEENT: Repors: no symptoms Allergies: Coded Allergies: No Known Allergies (Unverified , 04/09/16) Objective Last 24 Hour Vital Signs Date Time Temp Pulse Resp B/P (MAP) Pulse Ox O2 Delivery O2 Flow Rate FiO2 11/26/18 13:26 165/77 11/26/18 12:00 97.9 76 18 165/77 (106) 97 11/26/18 10:40 76 18 170/94 (119) 97 11/26/18 10:35 75 18 174/92 (119) 100 11/26/18 10:30 76 18 172/76 (108) 100 11/26/18 10:25 78 18 163/83 (109) 100 11/26/18 10:20 76 18 176/97 (123) 100 11/26/18 10:15 72 18 168/79 (108) 94 11/26/18 10:12 76 16 4.0 11/26/18 09:00 Room Air 11/26/18 08:18 149/83 11/26/18 08:00 98.5 80 16 149/83 (105) 100 11/26/18 04:00 98.5 100 16 138/84 (102) 100 11/26/18 00:00 98.9 78 17 135/68 (90) 99 11/25/18 20:48 Room Air 11/25/18 20:00 98.5 96 17 137/71 (93) 100 11/25/18 18:53 143/73 11/25/18 16:00 97.7 94 20 109/73 (85) 92 11/25/18 16:00 97.9 62 20 143/73 (96) 100 Intake and Output 11/25/18 11/26/18 19:00 07:00 Intake Total 860 ml 675 ml Output Total 1545 ml 1500 ml Balance -685 ml -825 ml Intake Oral 380 ml IV Total 480 ml 675 ml Output Urine Total 1545 ml 1500 ml # Bowel Movements 1 1 Objective nephrostomy draining blood tinged urine General Appearance: WD/WN HEENT: normocephalic Respiratory/Chest: chest wall non-tender, normal breath sounds Cardiovascular: normal peripheral pulses, normal rate Abdomen: normal bowel sounds, soft, non tender Skin: no rash Laboratory Tests 11/26/18 06:06: White Blood Count 9.0, Red Blood Count 3.14L, Hemoglobin 9.8L, Hematocrit 29.0L , Mean Corpuscular Volume 92, Mean Corpuscular Hemoglobin 31.3H, Mean Corpuscular Hemoglobin Concent 33.9, Red Cell Distribution Width 11.4L, Platelet Count 122L, Mean Platelet Volume 6.6, Neutrophils (%) (Auto) 79.3H, Lymphocytes (%) (Auto) 12.7L, Monocytes (%) (Auto) 7.3, Eosinophils (%) (Auto) 0.0, Basophils (%) (Auto) 0.6, Erythrocyte Sedimentation Rate 94H, Sodium Level 143, Potassium Level 4.2, Chloride Level 109H, Carbon Dioxide Level 28, Anion Gap 6, Blood Urea Nitrogen 18, Creatinine 1.2, Estimat Glomerular Filtration Rate , Glucose Level 190H, Calcium Level 8.8, Phosphorus Level 2.6, Magnesium Level 1.7L, Total Bilirubin 0.3, Aspartate Amino Transf (AST/SGOT) 10L, Alanine Aminotransferase (ALT/SGPT) 22, Alkaline Phosphatase 79, C-Reactive Protein, Quantitative 2.1H, Total Protein 6.2L, Albumin 2.5L, Globulin 3.7, Albumin/ Globulin Ratio 0.7L Current Medications Medications (Trade) Dose Ordered Sig/Levi Route PRN Reason Start Time Stop Time Status Last Admin Dose Admin Acetaminophen (Tylenol) 650 mg Q4H PRN ORAL fever 11/22/18 13:30 12/22/18 13:29 Al Hydroxide/Mg Hydroxide (Mylanta II) 30 ml Q6H PRN ORAL dyspepsia 11/22/18 13:30 12/22/18 13:29 Ceftriaxone Sodium 1 gm/ Dextrose 55 ml @ 110 mls/hr Q24H IVPB 11/23/18 12:00 11/30/18 11:59 11/26/18 12:46 Dextrose (Dextrose 50%) 25 ml Q30M PRN IV Hypoglycemia 11/22/18 13:30 12/22/18 13:23 11/22/18 17:21 Dextrose (Dextrose 50%) 50 ml Q30M PRN IV hypoglycemia 11/22/18 13:30 12/22/18 13:29 Dextrose/Sodium Chloride 1,000 ml @ 75 mls/hr [id number] IV 11/22/18 13:16 12/22/18 13:15 11/26/18 10:42 Diphenhydramine HCl (Benadryl) 25 mg Q6H PRN ORAL Itching/Pruritis 11/22/18 13:30 12/22/18 13:29 Finasteride (Proscar) 5 mg DAILY ORAL 11/22/18 19:45 12/22/18 19:44 11/26/18 08:18 Fluconazole (Diflucan) 200 mg DAILY ORAL 11/25/18 17:15 11/27/18 23:59 11/26/18 08:18 Heparin Sodium/ Sodium Chloride (Heparin 1000 units/500ml Premix) 1,000 unit ONCE PRN INJ radiology 11/26/18 09:15 11/26/18 23:59 Hydralazine HCl (Apresoline) 50 mg Q6H PRN ORAL SBP > 160 11/22/18 17:30 12/22/18 17:29 11/26/18 13:26 Insulin Aspart (NovoLOG) BEFORE MEALS AND HS SUBQ 11/22/18 16:30 12/22/18 16:29 11/26/18 11:32 Irbesartan (Avapro) 150 mg BID ORAL 11/25/18 09:00 12/25/18 08:59 11/26/18 08:18 Lidocaine HCl (Xylocaine 1% 30ml) 30 ml ONCE PRN INJ RADIOLOGY USE 11/26/18 08:26 11/26/18 23:59 Magnesium Sulfate 100 ml @ 100 mls/hr Q1H IVPB 11/26/18 14:00 11/26/18 15:59 11/26/18 13:49 Methimazole (Tapazole) 10 mg BID ORAL 11/24/18 09:00 12/24/18 08:59 11/26/18 08:17 Morphine Sulfate (Morphine Sulfate) 2 mg Q4H PRN IVP severe Pain (Pain Scale 7-10) 11/22/18 13:30 11/29/18 13:29 11/22/18 20:41 Nateglinide (Starlix) 60 mg TIAC ORAL 11/24/18 11:30 12/24/18 11:29 11/26/18 11:36 Nitroglycerin (Ntg) 0.4 mg Q5M X 3 DOSES PRN SL Prn Chest Pain 11/22/18 13:30 12/22/18 13:29 Ondansetron HCl (Zofran) 4 mg Q6H PRN IVP Nausea & Vomiting 11/22/18 13:30 12/22/18 13:29 Pantoprazole (Protonix) 40 mg EVERY 12 HOURS ORAL 11/24/18 21:00 12/24/18 20:59 11/26/18 08:17 Polyethylene Glycol (Miralax) 17 gm HSPRN PRN ORAL Constipation 11/22/18 13:30 12/22/18 13:29 Sucralfate (Carafate) 1 gm FOUR TIMES A DAY ORAL 11/24/18 21:00 12/24/18 20:59 11/26/18 12:46 Tamsulosin HCl (Flomax) 0.4 mg BEDTIME ORAL 11/22/18 21:00 12/22/18 20:59 11/25/18 21:31 Temazepam (Restoril) 15 mg HSPRN PRN ORAL Insomnia 11/22/18 13:30 11/29/18 13:29 11/22/18 20:40 Og Hinkle MD Nov 26, 2018 14:17
--- NOTE | 2018-11-26 17:56 | Internal Med Progress Note ---
Subjective Date of Service: Nov 26, 2018 Physician Name Jean-Claude Peter Attending Physician Jaziel Lowe MD Current Medications Medications (Trade) Dose Ordered Sig/Levi Route PRN Reason Start Time Stop Time Status Last Admin Dose Admin Acetaminophen (Tylenol) 650 mg Q4H PRN ORAL fever 11/22/18 13:30 12/22/18 13:29 Al Hydroxide/Mg Hydroxide (Mylanta II) 30 ml Q6H PRN ORAL dyspepsia 11/22/18 13:30 12/22/18 13:29 Ceftriaxone Sodium 1 gm/ Dextrose 55 ml @ 110 mls/hr Q24H IVPB 11/23/18 12:00 11/30/18 11:59 11/26/18 12:46 Dextrose (Dextrose 50%) 25 ml Q30M PRN IV Hypoglycemia 11/22/18 13:30 12/22/18 13:23 11/22/18 17:21 Dextrose (Dextrose 50%) 50 ml Q30M PRN IV hypoglycemia 11/22/18 13:30 12/22/18 13:29 Dextrose/Sodium Chloride 1,000 ml @ 75 mls/hr [id number] IV 11/22/18 13:16 12/22/18 13:15 11/26/18 10:42 Diphenhydramine HCl (Benadryl) 25 mg Q6H PRN ORAL Itching/Pruritis 11/22/18 13:30 12/22/18 13:29 Finasteride (Proscar) 5 mg DAILY ORAL 11/22/18 19:45 12/22/18 19:44 11/26/18 08:18 Fluconazole (Diflucan) 200 mg DAILY ORAL 11/25/18 17:15 11/27/18 23:59 11/26/18 08:18 Heparin Sodium/ Sodium Chloride (Heparin 1000 units/500ml Premix) 1,000 unit ONCE PRN INJ radiology 11/26/18 09:15 11/26/18 23:59 Hydralazine HCl (Apresoline) 50 mg Q6H PRN ORAL SBP > 160 11/22/18 17:30 12/22/18 17:29 11/26/18 13:26 Insulin Aspart (NovoLOG) BEFORE MEALS AND HS SUBQ 11/22/18 16:30 12/22/18 16:29 11/26/18 16:44 Irbesartan (Avapro) 150 mg BID ORAL 11/25/18 09:00 12/25/18 08:59 11/26/18 17:19 Lidocaine HCl (Xylocaine 1% 30ml) 30 ml ONCE PRN INJ RADIOLOGY USE 11/26/18 08:26 11/26/18 23:59 Methimazole (Tapazole) 10 mg BID ORAL 11/24/18 09:00 12/24/18 08:59 11/26/18 17:19 Morphine Sulfate (Morphine Sulfate) 2 mg Q4H PRN IVP severe Pain (Pain Scale 7-10) 11/22/18 13:30 11/29/18 13:29 11/22/18 20:41 Nateglinide (Starlix) 60 mg TIAC ORAL 11/24/18 11:30 12/24/18 11:29 11/26/18 16:42 Nitroglycerin (Ntg) 0.4 mg Q5M X 3 DOSES PRN SL Prn Chest Pain 11/22/18 13:30 12/22/18 13:29 Ondansetron HCl (Zofran) 4 mg Q6H PRN IVP Nausea & Vomiting 11/22/18 13:30 12/22/18 13:29 Pantoprazole (Protonix) 40 mg EVERY 12 HOURS ORAL 11/24/18 21:00 12/24/18 20:59 11/26/18 08:17 Polyethylene Glycol (Miralax) 17 gm HSPRN PRN ORAL Constipation 11/22/18 13:30 12/22/18 13:29 Sucralfate (Carafate) 1 gm FOUR TIMES A DAY ORAL 11/24/18 21:00 12/24/18 20:59 11/26/18 17:19 Tamsulosin HCl (Flomax) 0.4 mg BEDTIME ORAL 11/22/18 21:00 12/22/18 20:59 11/25/18 21:31 Temazepam (Restoril) 15 mg HSPRN PRN ORAL Insomnia 11/22/18 13:30 11/29/18 13:29 11/22/18 20:40 Allergies: Coded Allergies: No Known Allergies (Unverified , 04/09/16) ROS Limited/Unobtainable: No Constitutional: Reports: no symptoms HEENT: Reports: no symptoms Cardiovascular: Reports: no symptoms Respiratory: Reports: no symptoms Gastrointestinal/Abdominal: Reports: diarrhea Genitourinary: Reports: no symptoms 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: Reports: no symptoms Subjective 83 YO M admitted with gastrointestinal hemorrhage. S/P endoscopy and colonoscopy 11/24/18. Cover for Int Uriel-Dr Lowe Objective Last Vital Signs Date Time Temp Pulse Resp B/P (MAP) Pulse Ox O2 Delivery O2 Flow Rate FiO2 11/26/18 17:19 97.9 92 18 157/75 (102) 97 11/26/18 10:12 4.0 11/26/18 09:00 Room Air Laboratory Tests Test 11/26/18 06:06 White Blood Count 9.0 K/UL (4.8-10.8) Red Blood Count 3.14 M/UL (4.70-6.10) L Hemoglobin 9.8 G/DL (14.2-18.0) L Hematocrit 29.0 % (42.0-52.0) L Mean Corpuscular Volume 92 FL (80-99) Mean Corpuscular Hemoglobin 31.3 PG (27.0-31.0) H Mean Corpuscular Hemoglobin Concent 33.9 G/DL (32.0-36.0) Red Cell Distribution Width 11.4 % (11.6-14.8) L Platelet Count 122 K/UL (150-450) L Mean Platelet Volume 6.6 FL (6.5-10.1) Neutrophils (%) (Auto) 79.3 % (45.0-75.0) H Lymphocytes (%) (Auto) 12.7 % (20.0-45.0) L Monocytes (%) (Auto) 7.3 % (1.0-10.0) Eosinophils (%) (Auto) 0.0 % (0.0-3.0) Basophils (%) (Auto) 0.6 % (0.0-2.0) Erythrocyte Sedimentation Rate 94 MM/HR (0-20) H Sodium Level 143 MMOL/L (136-145) Potassium Level 4.2 MMOL/L (3.5-5.1) Chloride Level 109 MMOL/L (98-107) H Carbon Dioxide Level 28 MMOL/L (21-32) Anion Gap 6 mmol/L (5-15) Blood Urea Nitrogen 18 mg/dL (7-18) Creatinine 1.2 MG/DL (0.55-1.30) Estimat Glomerular Filtration Rate mL/min (>60) Glucose Level 190 MG/DL (74-106) H Calcium Level 8.8 MG/DL (8.5-10.1) Phosphorus Level 2.6 MG/DL (2.5-4.9) Magnesium Level 1.7 MG/DL (1.8-2.4) L Total Bilirubin 0.3 MG/DL (0.2-1.0) Aspartate Amino Transf (AST/SGOT) 10 U/L (15-37) L Alanine Aminotransferase (ALT/SGPT) 22 U/L (12-78) Alkaline Phosphatase 79 U/L (46-116) C-Reactive Protein, Quantitative 2.1 mg/dL (0.00-0.90) H Total Protein 6.2 G/DL (6.4-8.2) L Albumin 2.5 G/DL (3.4-5.0) L Globulin 3.7 g/dL Albumin/Globulin Ratio 0.7 (1.0-2.7) L Intake and Output 11/25/18 11/26/18 19:00 07:00 Intake Total 860 ml 675 ml Output Total 1545 ml 1500 ml Balance -685 ml -825 ml Intake Oral 380 ml IV Total 480 ml 675 ml Output Urine Total 1545 ml 1500 ml # Bowel Movements 1 1 Objective PHYSICAL EXAMINATION: GENERAL: The patient is awake, alert, responsive, very pleasant, but forgetful. HEAD AND NECK: Pupils are reactive to light. Extraocular movements intact. Neck was supple. No JVD. LUNGS: Good air entry. No wheezing or rales. Left side of the chest has a pacemaker. ABDOMEN: Soft, nondistended, and nontender. Positive bowel sounds. EXTREMITIES: No cyanosis, clubbing, or edema. NEUROLOGIC: HOUSE SHORER II through XII grossly intact. Motor is 5/5 in all extremities. Gait was not assessed due to the patient's status. RECTAL/GENITOURINARY: Refused and deferred. Assessment/Plan Assessment/Plan ASSESSMENT: 1. Gastrointestinal bleed. 2. Anemia possible due to acute blood loss. 3. Hypokalemia. 4. Acute urinary tract infection. 5. Moderate left hydronephrosis with hydroureter. 6. Cardiac arrhythmia status post pacemaker. 7. Diabetes type 2. 8. Hypertension. 9. Gastritis 10. hemorrhoids PLAN: 1. Admit the patient to medical floor. 2. We will follow up with the laboratory. 3. Clear liquid diet. 4. Gastrointestinal consultation with Dr. Hernandez. 5. Code status is Full Code at this time. 6. We will follow up with the Urology consultation, Dr. Allen. 7. S/P Esophagogastroduodenoscopy and colonoscopy 11/24/18. 8. We will follow up with urine culture and Cardiology consultation with Dr. Nj Valenzuela. 9. Protonix 40 mg BID and carafate 1 gm Jean-Claude Mcnally MD Nov 26, 2018 17:56
--- NOTE | 2018-11-26 19:21 | NUR ---
HAND-OFF: Report given to DONELL MANRIQUEZ.
--- NOTE | 2018-11-26 19:30 | NUR ---
NURSE NOTES: Received report from DONELL Aquino. Patient A&Ox2, on room air. No signs of distress or labored breathing. IV intact, patent, and infusing fluids. S/P left nephrostomy. Nephrostomy bag draining hematuria. MD aware. Patient also has hernandez, intact patent and draining hematuria. Bed in lowest position with call light in reach. Will continue with plan of care.
[2018-11-26] MEDS: Tamsulosin 0.4mg cap ORAL SCH (21:11)
[2018-11-27] VITALS (7 sets, daily range): BP systolic 117–172; BP diastolic 61–82
[2018-11-27] MEDS: HydrALAZINE 50mg tab ORAL PRN (01:26)
[2018-11-27] MEDS: Morphine Sulfate 2mg/ml Inj(IV/IM USE ONLY) IVP PRN ×2 (01:28→22:23)
[2018-11-27 06:17] LABS: BASOPHILS % (AUTO) 0.9 % (0.0-2.0); HEMATOCRIT 29.8 % (42.0-52.0); HEMOGLOBIN 10.1 G/DL (14.2-18.0); LYMPHOCYTES % (AUTO) 13.8 % (20.0-45.0); MEAN CORPUSCULAR VOLUME 91 FL (80-99); MONOCYTES % (AUTO) 8.3 % (1.0-10.0); NEUTROPHILS % (AUTO) 76.9 % (45.0-75.0); PLATELET COUNT 124 K/UL (150-450); RED BLOOD COUNT 3.26 M/UL (4.70-6.10); RED CELL DISTRIBUTION WIDTH 11.6 % (11.6-14.8); WHITE BLOOD COUNT 8.4 K/UL (4.8-10.8)
[2018-11-27 06:38] LABS: ANION GAP 7 mmol/L (5-15); BLOOD UREA NITROGEN 13 mg/dL (7-18); CALCIUM 8.9 MG/DL (8.5-10.1); CARBON DIOXIDE 29 MMOL/L (21-32); CHLORIDE 108 MMOL/L (98-107); POTASSIUM 3.5 MMOL/L (3.5-5.1); SODIUM 143 MMOL/L (136-145)
[2018-11-27] MEDS: Nateglinide 60mg tab ORAL SCH ×3 (06:50→17:10)
[2018-11-27] MEDS: NovoLOG Insulin Flexpen SUBQ SCH ×4 (06:51→22:22)
[2018-11-27] MEDS: D5 1/2NS 1,000 ML IV SCH ×2 (06:58→18:49)
--- NOTE | 2018-11-27 07:37 | Infectious Diseases Prog Note ---
Assessment/Plan Assessment/Plan Abx: Ceftriaxone 11/22- Assessment: Hematochezia -11/24 SP EGD/Colonoscopy: gastritis, hemorrhoids L hydronephrosis/L Hydroureter 2ry to extensive bladder tumor -11/25 SP Cystoscopy, urethral calibration, transurethral resection of extensive bladder tumor with fulguration, and right retrograde pyelogram. -Findings: The patient had what appeared to be a large bladder tumor that involved most of the left side of the bladder extending posteriorly and completely obliterating the left ureteral orifice. I was unable to place a stent on the left side. - -CT abd/p: Limited assessment of the GI tract, due to lack of enteric contrast administration. Moderate left hydronephrosis and hydroureter. Hydroureter extends to the bladder, where there is asymmetric posterolateral wall thickening raises concern for neoplasm. Further evaluation with cystoscopy should be considered. There is also generalized wall thickening, possibly on the basis of cystitis or chronic bladder outlet obstruction. No definite findings to suggest etiology of stated clinical history of GI bleed. Cholelithiasis. Basilar pulmonary atelectasis and equivocal slight interstitial congestion. L1 vertebral body compression fracture deformity, age indeterminate. Consider MRI for further evaluation if this is clinically relevant Afebrile NO leukocytosis -CXR: No acute process Pyuria Funguria -u/a wbc 10-15, nit +, leuk est +3; ucx <10 yeast Encephalopathy -Head CT: Chronic and age-related changes is noted. Negative for acute intracranial bleed or mass effect. 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 Will continue to follow along with you. Subjective Allergies: Coded Allergies: No Known Allergies (Unverified , 04/09/16) Subjective Patient afebrile No leukoctyosis Objective Vital Signs Last 24 Hour Vital Signs Date Time Temp Pulse Resp B/P (MAP) Pulse Ox O2 Delivery O2 Flow Rate FiO2 11/27/18 04:00 98.3 72 17 117/80 (92) 99 11/27/18 01:26 160/70 11/27/18 00:00 98.1 63 17 160/70 (100) 95 11/26/18 21:00 Room Air 11/26/18 20:00 97.7 77 18 151/79 (103) 99 11/26/18 17:19 97.9 92 18 157/75 (102) 97 11/26/18 17:19 157/75 11/26/18 13:26 165/77 11/26/18 12:00 97.9 76 18 165/77 (106) 97 11/26/18 10:50 76 18 155/84 (107) 100 11/26/18 10:45 75 18 166/86 (112) 99 11/26/18 10:40 76 18 170/94 (119) 97 11/26/18 10:35 75 18 174/92 (119) 100 11/26/18 10:30 76 18 172/76 (108) 100 11/26/18 10:25 78 18 163/83 (109) 100 11/26/18 10:20 76 18 176/97 (123) 100 11/26/18 10:15 72 18 168/79 (108) 94 11/26/18 10:12 76 16 4.0 11/26/18 09:00 Room Air 11/26/18 08:18 149/83 11/26/18 08:00 98.5 80 16 149/83 (105) 100 Height (Feet): 6 Height (Inches): 6.00 Weight (Pounds): 182 Objective GENERAL: NAD HEAD AND NECK: NCAT, MMM, EOMI LUNGS: CTAB, No W ABDOMEN: Soft, nondistended, and nontender. Positive bowel sounds. Heart: RRR, S1, S2 Laboratory Tests Test 11/27/18 05:45 White Blood Count 8.4 K/UL (4.8-10.8) Red Blood Count 3.26 M/UL (4.70-6.10) L Hemoglobin 10.1 G/DL (14.2-18.0) L Hematocrit 29.8 % (42.0-52.0) L Mean Corpuscular Volume 91 FL (80-99) Mean Corpuscular Hemoglobin 31.1 PG (27.0-31.0) H Mean Corpuscular Hemoglobin Concent 34.0 G/DL (32.0-36.0) Red Cell Distribution Width 11.6 % (11.6-14.8) Platelet Count 124 K/UL (150-450) L Mean Platelet Volume 6.9 FL (6.5-10.1) Neutrophils (%) (Auto) 76.9 % (45.0-75.0) H Lymphocytes (%) (Auto) 13.8 % (20.0-45.0) L Monocytes (%) (Auto) 8.3 % (1.0-10.0) Eosinophils (%) (Auto) 0.0 % (0.0-3.0) Basophils (%) (Auto) 0.9 % (0.0-2.0) Sodium Level 143 MMOL/L (136-145) Potassium Level 3.5 MMOL/L (3.5-5.1) Chloride Level 108 MMOL/L (98-107) H Carbon Dioxide Level 29 MMOL/L (21-32) Anion Gap 7 mmol/L (5-15) Blood Urea Nitrogen 13 mg/dL (7-18) Creatinine 1.0 MG/DL (0.55-1.30) Estimat Glomerular Filtration Rate mL/min (>60) Glucose Level 160 MG/DL (74-106) H Calcium Level 8.9 MG/DL (8.5-10.1) Current Medications Medications (Trade) Dose Ordered Sig/Levi Route PRN Reason Start Time Stop Time Status Last Admin Dose Admin Acetaminophen (Tylenol) 650 mg Q4H PRN ORAL fever 11/22/18 13:30 12/22/18 13:29 Al Hydroxide/Mg Hydroxide (Mylanta II) 30 ml Q6H PRN ORAL dyspepsia 11/22/18 13:30 12/22/18 13:29 Ceftriaxone Sodium 1 gm/ Dextrose 55 ml @ 110 mls/hr Q24H IVPB 11/23/18 12:00 11/30/18 11:59 11/26/18 12:46 Dextrose (Dextrose 50%) 25 ml Q30M PRN IV Hypoglycemia 11/22/18 13:30 12/22/18 13:23 11/22/18 17:21 Dextrose (Dextrose 50%) 50 ml Q30M PRN IV hypoglycemia 11/22/18 13:30 12/22/18 13:29 Dextrose/Sodium Chloride 1,000 ml @ 75 mls/hr [id number] IV 11/22/18 13:16 12/22/18 13:15 11/27/18 06:58 Diphenhydramine HCl (Benadryl) 25 mg Q6H PRN ORAL Itching/Pruritis 11/22/18 13:30 12/22/18 13:29 Finasteride (Proscar) 5 mg DAILY ORAL 11/22/18 19:45 12/22/18 19:44 11/26/18 08:18 Fluconazole (Diflucan) 200 mg DAILY ORAL 11/25/18 17:15 11/27/18 23:59 11/26/18 08:18 Hydralazine HCl (Apresoline) 50 mg Q6H PRN ORAL SBP > 160 11/22/18 17:30 12/22/18 17:29 11/27/18 01:26 Insulin Aspart (NovoLOG) BEFORE MEALS AND HS SUBQ 11/22/18 16:30 12/22/18 16:29 11/27/18 06:51 Irbesartan (Avapro) 150 mg BID ORAL 11/25/18 09:00 12/25/18 08:59 11/26/18 17:19 Methimazole (Tapazole) 10 mg BID ORAL 11/24/18 09:00 12/24/18 08:59 11/26/18 17:19 Morphine Sulfate (Morphine Sulfate) 2 mg Q4H PRN IVP severe Pain (Pain Scale 7-10) 11/22/18 13:30 11/29/18 13:29 11/27/18 01:28 Nateglinide (Starlix) 60 mg TIAC ORAL 11/24/18 11:30 12/24/18 11:29 11/27/18 06:50 Nitroglycerin (Ntg) 0.4 mg Q5M X 3 DOSES PRN SL Prn Chest Pain 11/22/18 13:30 12/22/18 13:29 Ondansetron HCl (Zofran) 4 mg Q6H PRN IVP Nausea & Vomiting 11/22/18 13:30 12/22/18 13:29 Pantoprazole (Protonix) 40 mg EVERY 12 HOURS ORAL 11/24/18 21:00 12/24/18 20:59 11/26/18 21:11 Polyethylene Glycol (Miralax) 17 gm HSPRN PRN ORAL Constipation 11/22/18 13:30 12/22/18 13:29 Sucralfate (Carafate) 1 gm FOUR TIMES A DAY ORAL 11/24/18 21:00 12/24/18 20:59 11/26/18 21:11 Tamsulosin HCl (Flomax) 0.4 mg BEDTIME ORAL 11/22/18 21:00 12/22/18 20:59 11/26/18 21:11 Temazepam (Restoril) 15 mg HSPRN PRN ORAL Insomnia 11/22/18 13:30 11/29/18 13:29 11/22/18 20:40 Newton Piña MD Nov 27, 2018 07:37
--- NOTE | 2018-11-27 07:55 | NUR ---
HAND-OFF: Report given to DONELL Hamilton.
--- NOTE | 2018-11-27 08:01 | NUR ---
NURSE NOTES: Patient is awake and alert to name,patient sitting up in bed and eating breakfast,hernandez catheter in place and draining cranberry color urine and nephrostomy bag draining cranberry color urine,patient state no complaints of pain .IV fluids infusing as ordered.Call light within reach,bed alarm is on.
--- NOTE | 2018-11-27 08:06 | Pulmonology Progress Note ---
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 s/p L nephrostomy tube placement Anemia lower GI bleeding s/p EGF gastritis internal hemorrhoids severe protein calorie malnutrition Funguria HTN DM acute metabolic encephalopathy-resolved hyperthyroidism PLAN OF CARE MS floor CT A/P with L hydro, poss bladder mass Urology follows s/p cysto with findings of large bladder tumor pathology c/w high grade invasive urothelial carcinoma consider onco eval s/p L nephrostomy tube monitor renal parameters, lytes, correct lytes prn ; monitor urinary output ( Robertson and nephrostomy) pain management s/p abx as per ID post surg procedure, urine cx + yeast <10K , currently off abx , monitor closely for any signs fo infection, fever, leucocytosis GI follows s/p EGD and colon , > gastritis, internal hemorrhoids, s/p 1 polyp removal biopsy c/w gastritis , no H pylori bowel regimen GI prophylaxis monitor HH with goal to keep Hgb above 7, stool OB negative endo follows, started on Tapazole, thyroid US -no discrete thyroid nodules BS management with Starlix and SSI prn, [id number], at goal BP management with ARB Venous Duplex - no acute DVT O2 prn ECHO with pEF cardio follows lipid panel stable CT head no acute IC pathology, + old CVA, neuro follows supportive care case discussed and evaluated by supervising physician Subjective Allergies: Coded Allergies: No Known Allergies (Unverified , 04/09/16) Subjective awake, eating breakfast, reports some discomfort at the side of nephrostomy tube ] denies chest pain, SOB, cough, resp distress Objective Last 24 Hour Vital Signs Date Time Temp Pulse Resp B/P (MAP) Pulse Ox O2 Delivery O2 Flow Rate FiO2 11/27/18 04:00 98.3 72 17 117/80 (92) 99 11/27/18 01:26 160/70 11/27/18 00:00 98.1 63 17 160/70 (100) 95 11/26/18 21:00 Room Air 11/26/18 20:00 97.7 77 18 151/79 (103) 99 11/26/18 17:19 97.9 92 18 157/75 (102) 97 11/26/18 17:19 157/75 11/26/18 13:26 165/77 11/26/18 12:00 97.9 76 18 165/77 (106) 97 11/26/18 10:50 76 18 155/84 (107) 100 11/26/18 10:45 75 18 166/86 (112) 99 11/26/18 10:40 76 18 170/94 (119) 97 11/26/18 10:35 75 18 174/92 (119) 100 11/26/18 10:30 76 18 172/76 (108) 100 11/26/18 10:25 78 18 163/83 (109) 100 11/26/18 10:20 76 18 176/97 (123) 100 11/26/18 10:15 72 18 168/79 (108) 94 11/26/18 10:12 76 16 4.0 11/26/18 09:00 Room Air 11/26/18 08:18 149/83 Intake and Output 11/26/18 11/27/18 19:00 07:00 Intake Total 1475 ml Output Total 1350 ml 700 ml Balance 125 ml -700 ml Intake Oral 1250 ml IV Total 225 ml Output Urine Total 700 ml 700 ml Other 650 ml # Bowel Movements 1 General Appearance: no acute distress, cachetic, other - awake, alert, responsive elderly AA male HEENT: normocephalic, atraumatic, anicteric, mucous membranes moist Respiratory/Chest: lungs clear - with moderate air exchange , no respiratory distress, no accessory muscle use Cardiovascular: normal rate, no JVD Abdomen: soft, non tender Genitourinary: other - Robertson and Left nephrtosotmy rube with bloody drainage Extremities: no edema, pedal pulses normal 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: abnormal gait, alert, responsive Musculoskeletal: atrophy - BLE Laboratory Tests 11/27/18 05:45: White Blood Count 8.4, Red Blood Count 3.26L, Hemoglobin 10.1L, Hematocrit 29.8L , Mean Corpuscular Volume 91, Mean Corpuscular Hemoglobin 31.1H, Mean Corpuscular Hemoglobin Concent 34.0, Red Cell Distribution Width 11.6, Platelet Count 124L, Mean Platelet Volume 6.9, Neutrophils (%) (Auto) 76.9H, Lymphocytes (%) (Auto) 13.8L, Monocytes (%) (Auto) 8.3, Eosinophils (%) (Auto) 0.0, Basophils (%) (Auto) 0.9, Sodium Level 143, Potassium Level 3.5, Chloride Level 108H, Carbon Dioxide Level 29, Anion Gap 7, Blood Urea Nitrogen 13, Creatinine 1.0, Estimat Glomerular Filtration Rate , Glucose Level 160H, Calcium Level 8.9 Current Medications Medications (Trade) Dose Ordered Sig/Levi Route PRN Reason Start Time Stop Time Status Last Admin Dose Admin Acetaminophen (Tylenol) 650 mg Q4H PRN ORAL fever 11/22/18 13:30 12/22/18 13:29 Al Hydroxide/Mg Hydroxide (Mylanta II) 30 ml Q6H PRN ORAL dyspepsia 11/22/18 13:30 12/22/18 13:29 Ceftriaxone Sodium 1 gm/ Dextrose 55 ml @ 110 mls/hr Q24H IVPB 11/23/18 12:00 11/27/18 23:00 11/26/18 12:46 Dextrose (Dextrose 50%) 25 ml Q30M PRN IV Hypoglycemia 11/22/18 13:30 12/22/18 13:23 11/22/18 17:21 Dextrose (Dextrose 50%) 50 ml Q30M PRN IV hypoglycemia 11/22/18 13:30 12/22/18 13:29 Dextrose/Sodium Chloride 1,000 ml @ 75 mls/hr [id number] IV 11/22/18 13:16 12/22/18 13:15 11/27/18 06:58 Diphenhydramine HCl (Benadryl) 25 mg Q6H PRN ORAL Itching/Pruritis 11/22/18 13:30 12/22/18 13:29 Finasteride (Proscar) 5 mg DAILY ORAL 11/22/18 19:45 12/22/18 19:44 11/26/18 08:18 Fluconazole (Diflucan) 200 mg DAILY ORAL 11/25/18 17:15 11/27/18 23:59 11/26/18 08:18 Hydralazine HCl (Apresoline) 50 mg Q6H PRN ORAL SBP > 160 11/22/18 17:30 12/22/18 17:29 11/27/18 01:26 Insulin Aspart (NovoLOG) BEFORE MEALS AND HS SUBQ 11/22/18 16:30 12/22/18 16:29 11/27/18 06:51 Irbesartan (Avapro) 150 mg BID ORAL 11/25/18 09:00 12/25/18 08:59 11/26/18 17:19 Methimazole (Tapazole) 10 mg BID ORAL 11/24/18 09:00 12/24/18 08:59 11/26/18 17:19 Morphine Sulfate (Morphine Sulfate) 2 mg Q4H PRN IVP severe Pain (Pain Scale 7-10) 11/22/18 13:30 11/29/18 13:29 11/27/18 01:28 Nateglinide (Starlix) 60 mg TIAC ORAL 11/24/18 11:30 12/24/18 11:29 11/27/18 06:50 Nitroglycerin (Ntg) 0.4 mg Q5M X 3 DOSES PRN SL Prn Chest Pain 11/22/18 13:30 12/22/18 13:29 Ondansetron HCl (Zofran) 4 mg Q6H PRN IVP Nausea & Vomiting 11/22/18 13:30 12/22/18 13:29 Pantoprazole (Protonix) 40 mg EVERY 12 HOURS ORAL 11/24/18 21:00 12/24/18 20:59 11/26/18 21:11 Polyethylene Glycol (Miralax) 17 gm HSPRN PRN ORAL Constipation 11/22/18 13:30 12/22/18 13:29 Sucralfate (Carafate) 1 gm FOUR TIMES A DAY ORAL 11/24/18 21:00 12/24/18 20:59 11/26/18 21:11 Tamsulosin HCl (Flomax) 0.4 mg BEDTIME ORAL 11/22/18 21:00 12/22/18 20:59 11/26/18 21:11 Temazepam (Restoril) 15 mg HSPRN PRN ORAL Insomnia 11/22/18 13:30 11/29/18 13:29 11/22/18 20:40 Ellen Mei [employer] Nov 27, 2018 08:06
[2018-11-27] MEDS: Sucralfate 1gm tab ORAL SCH ×4 (09:22→22:23)
[2018-11-27] MEDS: Fluconazole 100mg tab ORAL SCH (09:22)
[2018-11-27] MEDS: Irbesartan 150mg tablet ORAL SCH ×2 (09:22→18:52)
--- NOTE | 2018-11-27 10:35 | General Progress Note ---
Assessment/Plan Problem List: (1) Acute metabolic encephalopathy ICD Codes: G93.41 - Metabolic encephalopathy SNOMED: 37903061, 555283840 (2) Hyperthyroidism ICD Codes: E05.90 - Thyrotoxicosis, unspecified without thyrotoxic crisis or storm SNOMED: 89781150 (3) Diabetes mellitus ICD Codes: E11.9 - Type 2 diabetes mellitus without complications SNOMED: 45870404 Assessment: thyroid US revealed normal anatomy without nodules hyperthyroidism is most likely due to Graves' continue Tapazole 10 mg bid follow TSI and ATPO to confirm Graves' - pending increase Starlix to 120 mg ac tid continue NISS ac / hs Subjective Allergies: Coded Allergies: No Known Allergies (Unverified , 04/09/16) All Systems: reviewed and negative except above Subjective events noted Item Value Date Time Bedside Blood Glucose 165 mg/dl H 11/27/18 0651 Bedside Blood Glucose 229 mg/dl H 11/26/18 2114 Bedside Blood Glucose 149 mg/dl H 11/26/18 1644 Bedside Blood Glucose 132 mg/dl H 11/26/18 1132 Bedside Blood Glucose 202 mg/dl H 11/26/18 0613 Objective Last 24 Hour Vital Signs Date Time Temp Pulse Resp B/P (MAP) Pulse Ox O2 Delivery O2 Flow Rate FiO2 11/27/18 09:22 159/69 11/27/18 09:17 68 159/69 (99) 11/27/18 08:00 98.6 77 18 172/61 (98) 99 11/27/18 04:00 98.3 72 17 117/80 (92) 99 11/27/18 01:26 160/70 11/27/18 00:00 98.1 63 17 160/70 (100) 95 11/26/18 21:00 Room Air 11/26/18 20:00 97.7 77 18 151/79 (103) 99 11/26/18 17:19 97.9 92 18 157/75 (102) 97 11/26/18 17:19 157/75 11/26/18 13:26 165/77 11/26/18 12:00 97.9 76 18 165/77 (106) 97 11/26/18 10:50 76 18 155/84 (107) 100 11/26/18 10:45 75 18 166/86 (112) 99 11/26/18 10:40 76 18 170/94 (119) 97 11/26/18 10:35 75 18 174/92 (119) 100 Intake and Output 11/26/18 11/27/18 18:59 06:59 Intake Total 1550 ml Output Total 1350 ml 2700 ml Balance 200 ml -2700 ml Intake Oral 1250 ml IV Total 300 ml Output Urine Total 700 ml 1400 ml Other 650 ml 1300 ml # Bowel Movements 1 Laboratory Tests 11/27/18 05:45: White Blood Count 8.4, Red Blood Count 3.26L, Hemoglobin 10.1L, Hematocrit 29.8L , Mean Corpuscular Volume 91, Mean Corpuscular Hemoglobin 31.1H, Mean Corpuscular Hemoglobin Concent 34.0, Red Cell Distribution Width 11.6, Platelet Count 124L, Mean Platelet Volume 6.9, Neutrophils (%) (Auto) 76.9H, Lymphocytes (%) (Auto) 13.8L, Monocytes (%) (Auto) 8.3, Eosinophils (%) (Auto) 0.0, Basophils (%) (Auto) 0.9, Sodium Level 143, Potassium Level 3.5, Chloride Level 108H, Carbon Dioxide Level 29, Anion Gap 7, Blood Urea Nitrogen 13, Creatinine 1.0, Estimat Glomerular Filtration Rate , Glucose Level 160H, Calcium Level 8.9 Height (Feet): 6 Height (Inches): 6.00 Weight (Pounds): 182 General Appearance: no apparent distress Neck: normal alignment Cardiovascular: normal rate Respiratory/Chest: lungs clear Abdomen: normal bowel sounds Objective Current Medications Medications (Trade) Dose Ordered Sig/Levi Route PRN Reason Start Time Stop Time Status Last Admin Dose Admin Acetaminophen (Tylenol) 650 mg Q4H PRN ORAL fever 11/22/18 13:30 12/22/18 13:29 Al Hydroxide/Mg Hydroxide (Mylanta II) 30 ml Q6H PRN ORAL dyspepsia 11/22/18 13:30 12/22/18 13:29 Ceftriaxone Sodium 1 gm/ Dextrose 55 ml @ 110 mls/hr Q24H IVPB 11/23/18 12:00 11/27/18 23:00 11/26/18 12:46 Dextrose (Dextrose 50%) 25 ml Q30M PRN IV Hypoglycemia 11/22/18 13:30 5/15/19 13:23 11/22/18 17:21 Dextrose (Dextrose 50%) 50 ml Q30M PRN IV hypoglycemia 11/22/18 13:30 12/22/18 13:29 Dextrose/Sodium Chloride 1,000 ml @ 75 mls/hr [id number] IV 11/22/18 13:16 12/22/18 13:15 11/27/18 06:58 Diphenhydramine HCl (Benadryl) 25 mg Q6H PRN ORAL Itching/Pruritis 11/22/18 13:30 12/22/18 13:29 Finasteride (Proscar) 5 mg DAILY ORAL 11/22/18 19:45 12/22/18 19:44 11/27/18 09:22 Fluconazole (Diflucan) 200 mg DAILY ORAL 11/25/18 17:15 11/27/18 23:59 11/27/18 09:22 Hydralazine HCl (Apresoline) 50 mg Q6H PRN ORAL SBP > 160 11/22/18 17:30 12/22/18 17:29 11/27/18 01:26 Insulin Aspart (NovoLOG) BEFORE MEALS AND HS SUBQ 11/22/18 16:30 12/22/18 16:29 11/27/18 06:51 Irbesartan (Avapro) 150 mg BID ORAL 11/25/18 09:00 12/25/18 08:59 11/27/18 09:22 Methimazole (Tapazole) 10 mg BID ORAL 11/24/18 09:00 12/24/18 08:59 11/27/18 09:24 Morphine Sulfate (Morphine Sulfate) 2 mg Q4H PRN IVP severe Pain (Pain Scale 7-10) 11/22/18 13:30 11/29/18 13:29 11/27/18 01:28 Nateglinide (Starlix) 60 mg TIAC ORAL 11/24/18 11:30 12/24/18 11:29 11/27/18 06:50 Nitroglycerin (Ntg) 0.4 mg Q5M X 3 DOSES PRN SL Prn Chest Pain 11/22/18 13:30 12/22/18 13:29 Ondansetron HCl (Zofran) 4 mg Q6H PRN IVP Nausea & Vomiting 11/22/18 13:30 12/22/18 13:29 Pantoprazole (Protonix) 40 mg EVERY 12 HOURS ORAL 11/24/18 21:00 12/24/18 20:59 11/27/18 09:22 Polyethylene Glycol (Miralax) 17 gm HSPRN PRN ORAL Constipation 11/22/18 13:30 12/22/18 13:29 Sucralfate (Carafate) 1 gm FOUR TIMES A DAY ORAL 11/24/18 21:00 12/24/18 20:59 11/27/18 09:22 Tamsulosin HCl (Flomax) 0.4 mg BEDTIME ORAL 11/22/18 21:00 12/22/18 20:59 11/26/18 21:11 Temazepam (Restoril) 15 mg HSPRN PRN ORAL Insomnia 11/22/18 13:30 11/29/18 13:29 11/22/18 20:40 Kashif Adorno MD Nov 27, 2018 10:35
[2018-11-27] MEDS: cefTRIAXone 1 GM in D5W 55 ML IVPB SCH (12:04)
--- NOTE | 2018-11-27 14:24 | Internal Med Progress Note ---
Subjective Date of Service: Nov 27, 2018 Physician Name Peter,Jean-Claude Attending Physician Jaziel Lowe MD Current Medications Medications (Trade) Dose Ordered Sig/Levi Route PRN Reason Start Time Stop Time Status Last Admin Dose Admin Acetaminophen (Tylenol) 650 mg Q4H PRN ORAL fever 11/22/18 13:30 12/22/18 13:29 Al Hydroxide/Mg Hydroxide (Mylanta II) 30 ml Q6H PRN ORAL dyspepsia 11/22/18 13:30 12/22/18 13:29 Ceftriaxone Sodium 1 gm/ Dextrose 55 ml @ 110 mls/hr Q24H IVPB 11/23/18 12:00 11/27/18 23:00 11/27/18 12:04 Dextrose (Dextrose 50%) 25 ml Q30M PRN IV Hypoglycemia 11/22/18 13:30 12/22/18 13:23 11/22/18 17:21 Dextrose (Dextrose 50%) 50 ml Q30M PRN IV hypoglycemia 11/22/18 13:30 12/22/18 13:29 Dextrose/Sodium Chloride 1,000 ml @ 75 mls/hr [id number] IV 11/22/18 13:16 12/22/18 13:15 11/27/18 06:58 Diphenhydramine HCl (Benadryl) 25 mg Q6H PRN ORAL Itching/Pruritis 11/22/18 13:30 12/22/18 13:29 Finasteride (Proscar) 5 mg DAILY ORAL 11/22/18 19:45 12/22/18 19:44 11/27/18 09:22 Fluconazole (Diflucan) 200 mg DAILY ORAL 11/25/18 17:15 11/27/18 23:59 11/27/18 09:22 Hydralazine HCl (Apresoline) 50 mg Q6H PRN ORAL SBP > 160 11/22/18 17:30 12/22/18 17:29 11/27/18 01:26 Insulin Aspart (NovoLOG) BEFORE MEALS AND HS SUBQ 11/22/18 16:30 12/22/18 16:29 11/27/18 12:03 Irbesartan (Avapro) 150 mg BID ORAL 11/25/18 09:00 12/25/18 08:59 11/27/18 09:22 Methimazole (Tapazole) 10 mg BID ORAL 11/24/18 09:00 12/24/18 08:59 11/27/18 09:24 Morphine Sulfate (Morphine Sulfate) 2 mg Q4H PRN IVP severe Pain (Pain Scale 7-10) 11/22/18 13:30 11/29/18 13:29 11/27/18 01:28 Nateglinide (Starlix) 120 mg TIAC ORAL 11/27/18 11:30 12/24/18 11:29 11/27/18 11:55 Nitroglycerin (Ntg) 0.4 mg Q5M X 3 DOSES PRN SL Prn Chest Pain 11/22/18 13:30 12/22/18 13:29 Ondansetron HCl (Zofran) 4 mg Q6H PRN IVP Nausea & Vomiting 11/22/18 13:30 12/22/18 13:29 Pantoprazole (Protonix) 40 mg EVERY 12 HOURS ORAL 11/24/18 21:00 12/24/18 20:59 11/27/18 09:22 Polyethylene Glycol (Miralax) 17 gm HSPRN PRN ORAL Constipation 11/22/18 13:30 12/22/18 13:29 Sucralfate (Carafate) 1 gm FOUR TIMES A DAY ORAL 11/24/18 21:00 12/24/18 20:59 11/27/18 13:36 Tamsulosin HCl (Flomax) 0.4 mg BEDTIME ORAL 11/22/18 21:00 12/22/18 20:59 11/26/18 21:11 Temazepam (Restoril) 15 mg HSPRN PRN ORAL Insomnia 11/22/18 13:30 11/29/18 13:29 11/22/18 20:40 Allergies: Coded Allergies: No Known Allergies (Unverified , 04/09/16) ROS Limited/Unobtainable: No Constitutional: Reports: no symptoms HEENT: Reports: no symptoms Cardiovascular: Reports: no symptoms Respiratory: Reports: no symptoms Gastrointestinal/Abdominal: Reports: no symptoms Genitourinary: Reports: no symptoms 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: Reports: no symptoms Subjective 83 YO M admitted with gastrointestinal hemorrhage. S/P endoscopy and colonoscopy 11/24/18. S/P transurethral bladder tumor resection 11/24/18. Cover for Int Med-Dr Lowe Objective Last Vital Signs Date Time Temp Pulse Resp B/P (MAP) Pulse Ox O2 Delivery O2 Flow Rate FiO2 11/27/18 12:00 98.2 68 18 145/73 (97) 100 11/27/18 09:00 Room Air 11/26/18 10:12 4.0 Laboratory Tests Test 11/27/18 05:45 White Blood Count 8.4 K/UL (4.8-10.8) Red Blood Count 3.26 M/UL (4.70-6.10) L Hemoglobin 10.1 G/DL (14.2-18.0) L Hematocrit 29.8 % (42.0-52.0) L Mean Corpuscular Volume 91 FL (80-99) Mean Corpuscular Hemoglobin 31.1 PG (27.0-31.0) H Mean Corpuscular Hemoglobin Concent 34.0 G/DL (32.0-36.0) Red Cell Distribution Width 11.6 % (11.6-14.8) Platelet Count 124 K/UL (150-450) L Mean Platelet Volume 6.9 FL (6.5-10.1) Neutrophils (%) (Auto) 76.9 % (45.0-75.0) H Lymphocytes (%) (Auto) 13.8 % (20.0-45.0) L Monocytes (%) (Auto) 8.3 % (1.0-10.0) Eosinophils (%) (Auto) 0.0 % (0.0-3.0) Basophils (%) (Auto) 0.9 % (0.0-2.0) Sodium Level 143 MMOL/L (136-145) Potassium Level 3.5 MMOL/L (3.5-5.1) Chloride Level 108 MMOL/L (98-107) H Carbon Dioxide Level 29 MMOL/L (21-32) Anion Gap 7 mmol/L (5-15) Blood Urea Nitrogen 13 mg/dL (7-18) Creatinine 1.0 MG/DL (0.55-1.30) Estimat Glomerular Filtration Rate mL/min (>60) Glucose Level 160 MG/DL (74-106) H Calcium Level 8.9 MG/DL (8.5-10.1) Intake and Output 11/26/18 11/27/18 19:00 07:00 Intake Total 1475 ml Output Total 1350 ml 2700 ml Balance 125 ml -2700 ml Intake Oral 1250 ml IV Total 225 ml Output Urine Total 700 ml 1400 ml Other 650 ml 1300 ml # Bowel Movements 1 Objective PHYSICAL EXAMINATION: GENERAL: The patient is awake, alert, responsive, very pleasant, but forgetful. HEAD AND NECK: Pupils are reactive to light. Extraocular movements intact. Neck was supple. No JVD. LUNGS: Good air entry. No wheezing or rales. Left side of the chest has a pacemaker. ABDOMEN: Soft, nondistended, and nontender. Positive bowel sounds. EXTREMITIES: No cyanosis, clubbing, or edema. NEUROLOGIC: TUBE INSPECTOR II through XII grossly intact. Motor is 5/5 in all extremities. Gait was not assessed due to the patient's status. RECTAL/GENITOURINARY: Refused and deferred. Assessment/Plan Assessment/Plan ASSESSMENT: 1. Gastrointestinal bleed. 2. Anemia possible due to acute blood loss. 3. Hypokalemia. 4. Acute urinary tract infection. 5. Moderate left hydronephrosis with hydroureter. 6. Cardiac arrhythmia status post pacemaker. 7. Diabetes type 2. 8. Hypertension. 9. Gastritis 10. hemorrhoids 11. hematuria-Bladder cancer PLAN: 1. Admit the patient to medical floor. 2. We will follow up with the laboratory. 3. Clear liquid diet. 4. Gastrointestinal consultation with Dr. Hernandez. 5. Code status is Full Code at this time. 6. See Urology consultation, Dr. Allen S/P transurethral resection bladder tumor High grade urothelial carcinoma 7. S/P Esophagogastroduodenoscopy and colonoscopy 11/24/18. 8. We will follow up with urine culture and Cardiology consultation with Dr. Nj Valenzuela. 9. Protonix 40 mg BID and carafate 1 gm QID 10 Oncology consult Jean-Claude Peter MD Nov 27, 2018 14:24
--- NOTE | 2018-11-27 15:18 | Urology Progress Note ---
Assessment/Plan Assessment: 1. Left hydronephrosis. 2. Hematuria. 3. Pyuria. 4. Proteinuria. 5. Benign prostatic hypertrophy. 6. Incontinence. 7. Neurogenic bladder. 8. Cystitis. 9. Bladder cancer. 10. POD # 3, cysto/TURBT Plan: monitor clinically keep hernandez indwelling for now hand irrigated and do PRN left hydro secondary to bladder tumor left nephrostomy placed 11/[address] antegrade ureteral stent flomax and proscar diflucan added med onc eval d/w nursing staff Subjective Allergies: Coded Allergies: No Known Allergies (Unverified , 04/09/16) Subjective all noted, left nephrostomy placed yest, unable to place antegrade ureteral stent Objective Last 24 Hour Vital Signs Date Time Temp Pulse Resp B/P (MAP) Pulse Ox O2 Delivery O2 Flow Rate FiO2 11/27/18 12:00 98.2 68 18 145/73 (97) 100 11/27/18 09:22 159/69 11/27/18 09:17 68 159/69 (99) 11/27/18 09:00 Room Air 11/27/18 08:00 98.6 77 18 172/61 (98) 99 11/27/18 04:00 98.3 72 17 117/80 (92) 99 11/27/18 01:26 160/70 11/27/18 00:00 98.1 63 17 160/70 (100) 95 11/26/18 21:00 Room Air 11/26/18 20:00 97.7 77 18 151/79 (103) 99 11/26/18 17:19 97.9 92 18 157/75 (102) 97 11/26/18 17:19 157/75 Intake and Output 11/26/18 11/27/18 19:00 07:00 Intake Total 1475 ml Output Total 1350 ml 2700 ml Balance 125 ml -2700 ml Intake Oral 1250 ml IV Total 225 ml Output Urine Total 700 ml 1400 ml Other 650 ml 1300 ml # Bowel Movements 1 Microbiology Date/Time Source Procedure Growth Status 11/22/18 12:20 Nasal Nares MRSA Culture - Final NO METHICILLIN RESISTANT STAPH AUREUS... Complete 11/22/18 11:15 Urine,Clean Catch Urine Culture - Final YEAST Complete 11/22/18 12:20 Rectal Mucosa VRE Culture - Final NO VANCOMYCIN RESISTANT ENTEROCOCCUS ... Complete 11/22/18 12:20 Rectal Mucosa - Final NO CARBAPENEM-RESISTANT ENTEROBACTERI... Complete Current Medications Medications (Trade) Dose Ordered Sig/Levi Route PRN Reason Start Time Stop Time Status Last Admin Dose Admin Acetaminophen (Tylenol) 650 mg Q4H PRN ORAL fever 11/22/18 13:30 12/22/18 13:29 Al Hydroxide/Mg Hydroxide (Mylanta II) 30 ml Q6H PRN ORAL dyspepsia 11/22/18 13:30 12/22/18 13:29 Ceftriaxone Sodium 1 gm/ Dextrose 55 ml @ 110 mls/hr Q24H IVPB 11/23/18 12:00 11/27/18 23:00 11/27/18 12:04 Dextrose (Dextrose 50%) 25 ml Q30M PRN IV Hypoglycemia 11/22/18 13:30 12/22/18 13:23 11/22/18 17:21 Dextrose (Dextrose 50%) 50 ml Q30M PRN IV hypoglycemia 11/22/18 13:30 12/22/18 13:29 Dextrose/Sodium Chloride 1,000 ml @ 75 mls/hr [id number] IV 11/22/18 13:16 12/22/18 13:15 11/27/18 06:58 Diphenhydramine HCl (Benadryl) 25 mg Q6H PRN ORAL Itching/Pruritis 11/22/18 13:30 12/22/18 13:29 Finasteride (Proscar) 5 mg DAILY ORAL 11/22/18 19:45 12/22/18 19:44 11/27/18 09:22 Fluconazole (Diflucan) 200 mg DAILY ORAL 11/25/18 17:15 11/27/18 23:59 11/27/18 09:22 Hydralazine HCl (Apresoline) 50 mg Q6H PRN ORAL SBP > 160 11/22/18 17:30 12/22/18 17:29 11/27/18 01:26 Insulin Aspart (NovoLOG) BEFORE MEALS AND HS SUBQ 11/22/18 16:30 12/22/18 16:29 11/27/18 12:03 Irbesartan (Avapro) 150 mg BID ORAL 11/25/18 09:00 12/25/18 08:59 11/27/18 09:22 Methimazole (Tapazole) 10 mg BID ORAL 11/24/18 09:00 12/24/18 08:59 11/27/18 09:24 Morphine Sulfate (Morphine Sulfate) 2 mg Q4H PRN IVP severe Pain (Pain Scale 7-10) 11/22/18 13:30 11/29/18 13:29 11/27/18 01:28 Nateglinide (Starlix) 120 mg TIAC ORAL 11/27/18 11:30 12/24/18 11:29 11/27/18 11:55 Nitroglycerin (Ntg) 0.4 mg Q5M X 3 DOSES PRN SL Prn Chest Pain 11/22/18 13:30 12/22/18 13:29 Ondansetron HCl (Zofran) 4 mg Q6H PRN IVP Nausea & Vomiting 11/22/18 13:30 12/22/18 13:29 Pantoprazole (Protonix) 40 mg EVERY 12 HOURS ORAL 11/24/18 21:00 12/24/18 20:59 11/27/18 09:22 Polyethylene Glycol (Miralax) 17 gm HSPRN PRN ORAL Constipation 11/22/18 13:30 12/22/18 13:29 Sucralfate (Carafate) 1 gm FOUR TIMES A DAY ORAL 11/24/18 21:00 12/24/18 20:59 11/27/18 13:36 Tamsulosin HCl (Flomax) 0.4 mg BEDTIME ORAL 11/22/18 21:00 12/22/18 20:59 11/26/18 21:11 Temazepam (Restoril) 15 mg HSPRN PRN ORAL Insomnia 11/22/18 13:30 11/29/18 13:29 11/22/18 20:40 Laboratory Tests 11/27/18 05:45: White Blood Count 8.4, Red Blood Count 3.26L, Hemoglobin 10.1L, Hematocrit 29.8L , Mean Corpuscular Volume 91, Mean Corpuscular Hemoglobin 31.1H, Mean Corpuscular Hemoglobin Concent 34.0, Red Cell Distribution Width 11.6, Platelet Count 124L, Mean Platelet Volume 6.9, Neutrophils (%) (Auto) 76.9H, Lymphocytes (%) (Auto) 13.8L, Monocytes (%) (Auto) 8.3, Eosinophils (%) (Auto) 0.0, Basophils (%) (Auto) 0.9, Sodium Level 143, Potassium Level 3.5, Chloride Level 108H, Carbon Dioxide Level 29, Anion Gap 7, Blood Urea Nitrogen 13, Creatinine 1.0, Estimat Glomerular Filtration Rate , Glucose Level 160H, Calcium Level 8.9 Height (Feet): 6 Height (Inches): 6.00 Weight (Pounds): 182 Objective exam stable hernandez cath, urine slightly blood-tinged, wes left nephrostomy blood-tinged final path noted Macho Allen MD Nov 27, 2018 15:18
--- NOTE | 2018-11-27 16:35 | Neurology Progress Note ---
Interim History Interim History ROS Limited/Unobtainable: No Events: No new events Interim History Unable to perform MRI due to pacemaker Objective Physical Exam Last Vital Signs Date Time Temp Pulse Resp B/P (MAP) Pulse Ox O2 Delivery O2 Flow Rate FiO2 11/27/18 16:00 97.9 63 17 136/69 (91) 100 11/27/18 09:00 Room Air 11/26/18 10:12 4.0 Laboratory Tests Test 11/27/18 05:45 White Blood Count 8.4 K/UL (4.8-10.8) Red Blood Count 3.26 M/UL (4.70-6.10) L Hemoglobin 10.1 G/DL (14.2-18.0) L Hematocrit 29.8 % (42.0-52.0) L Mean Corpuscular Volume 91 FL (80-99) Mean Corpuscular Hemoglobin 31.1 PG (27.0-31.0) H Mean Corpuscular Hemoglobin Concent 34.0 G/DL (32.0-36.0) Red Cell Distribution Width 11.6 % (11.6-14.8) Platelet Count 124 K/UL (150-450) L Mean Platelet Volume 6.9 FL (6.5-10.1) Neutrophils (%) (Auto) 76.9 % (45.0-75.0) H Lymphocytes (%) (Auto) 13.8 % (20.0-45.0) L Monocytes (%) (Auto) 8.3 % (1.0-10.0) Eosinophils (%) (Auto) 0.0 % (0.0-3.0) Basophils (%) (Auto) 0.9 % (0.0-2.0) Sodium Level 143 MMOL/L (136-145) Potassium Level 3.5 MMOL/L (3.5-5.1) Chloride Level 108 MMOL/L (98-107) H Carbon Dioxide Level 29 MMOL/L (21-32) Anion Gap 7 mmol/L (5-15) Blood Urea Nitrogen 13 mg/dL (7-18) Creatinine 1.0 MG/DL (0.55-1.30) Estimat Glomerular Filtration Rate mL/min (>60) Glucose Level 160 MG/DL (74-106) H Calcium Level 8.9 MG/DL (8.5-10.1) Impression/Recommendations Problems: (1) Altered level of consciousness Assessment & Plan: CT 11/22/18: Chronic and age-related changes is noted. 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 Status: stable, unchanged Bailey Appiah N.P. Nov 27, 2018 16:35
--- NOTE | 2018-11-27 19:00 | NUR ---
NURSE NOTES: Left Nephrostomy continue to drain craneberry color urine as well as hernandez draining craneberry color urine.No complaints of pain.Iv fluids continue to infuse as ordered.Call light within reach,bed alarm is on.
--- NOTE | 2018-11-27 19:20 | NUR ---
HAND-OFF: Report given to Deanna MARLEY.
--- NOTE | 2018-11-27 19:37 | NUR ---
NURSE NOTES: Received report from DONELL Hamilton. Patient A&Ox2. On room air. No signs of distress or labored breathing. IV intact, patent, and infusing fluids. Complains of pain. Will follow pain management orders per MD. Bed in lowest position with call light in reach. Bed alarm on.
[2018-11-27] MEDS: Tamsulosin 0.4mg cap ORAL SCH (22:23)
[2018-11-28] VITALS: BP 161/74
[2018-11-28 04:00] VITALS: BP 156/71
[2018-11-28] MEDS: D5 1/2NS 1,000 ML IV SCH ×3 (06:45→20:25)
[2018-11-28] MEDS: Nateglinide 60mg tab ORAL SCH ×3 (06:46→17:10)
[2018-11-28] MEDS: NovoLOG Insulin Flexpen SUBQ SCH ×4 (06:56→20:27)
[2018-11-28 07:14] LABS: BASOPHILS % (AUTO) 0.6 % (0.0-2.0); HEMATOCRIT 31.7 % (42.0-52.0); HEMOGLOBIN 10.8 G/DL (14.2-18.0); LYMPHOCYTES % (AUTO) 15.2 % (20.0-45.0); MEAN CORPUSCULAR VOLUME 91 FL (80-99); MONOCYTES % (AUTO) 7.7 % (1.0-10.0); NEUTROPHILS % (AUTO) 76.5 % (45.0-75.0); PLATELET COUNT 135 K/UL (150-450); RED BLOOD COUNT 3.49 M/UL (4.70-6.10); RED CELL DISTRIBUTION WIDTH 11.3 % (11.6-14.8); WHITE BLOOD COUNT 8.8 K/UL (4.8-10.8)
[2018-11-28 08:00] VITALS: BP 122/55
--- NOTE | 2018-11-28 08:03 | NUR ---
HAND-OFF: Report given to DONELL Quinones.
[2018-11-28 08:21] LABS: ANION GAP 6 mmol/L (5-15); BLOOD UREA NITROGEN 11 mg/dL (7-18); CALCIUM 9.1 MG/DL (8.5-10.1); CARBON DIOXIDE 30 MMOL/L (21-32); CHLORIDE 104 MMOL/L (98-107); POTASSIUM 3.8 MMOL/L (3.5-5.1); SODIUM 140 MMOL/L (136-145)
--- NOTE | 2018-11-28 08:23 | NUR ---
NURSE NOTES: Received report from DONELL Haro. Pt in bed, awake, talkative, eating breakfast, no complaints of pain, Left nephrostomy in place, Robertson cath anchored to thigh, no apparent distress noted, bed in lowest position, call light within reach.
[2018-11-28] MEDS: Irbesartan 150mg tablet ORAL SCH ×2 (08:44→17:10)
[2018-11-28] MEDS: Sucralfate 1gm tab ORAL SCH ×4 (08:45→20:26)
--- NOTE | 2018-11-28 09:33 | General Progress Note ---
Assessment/Plan Problem List: (1) Acute metabolic encephalopathy ICD Codes: G93.41 - Metabolic encephalopathy SNOMED: 95574936, 690801967 (2) Hyperthyroidism ICD Codes: E05.90 - Thyrotoxicosis, unspecified without thyrotoxic crisis or storm SNOMED: 93730369 (3) Diabetes mellitus ICD Codes: E11.9 - Type 2 diabetes mellitus without complications SNOMED: 14146906 (4) Bladder neoplasm ICD Codes: D49.4 - Neoplasm of unspecified behavior of bladder SNOMED: 287762548 (5) Hydronephrosis ICD Codes: N13.30 - Unspecified hydronephrosis SNOMED: 73457324 Assessment: thyroid US revealed normal anatomy without nodules hyperthyroidism is most likely due to Graves' and less likely due to Subacute Thyroiditis reduce Tapazole bid to daily Tg Ab negative follow TSI, ATPO - pending continue Starlix 120 mg ac tid continue NISS ac / hs Subjective Allergies: Coded Allergies: No Known Allergies (Unverified , 04/09/16) All Systems: reviewed and negative except above Subjective events noted Item Value Date Time Bedside Blood Glucose 142 mg/dl H 11/28/18 0656 Bedside Blood Glucose 133 mg/dl H 11/27/18 2222 Bedside Blood Glucose 148 mg/dl H 11/27/18 1711 Objective Last 24 Hour Vital Signs Date Time Temp Pulse Resp B/P (MAP) Pulse Ox O2 Delivery O2 Flow Rate FiO2 11/28/18 08:44 122/55 11/28/18 08:00 97.9 71 16 122/55 (77) 99 11/28/18 04:00 97.7 67 17 156/71 (99) 99 11/28/18 00:00 98.1 61 17 161/74 (103) 100 11/27/18 21:00 Room Air 11/27/18 20:00 98.0 67 17 148/82 (104) 98 11/27/18 18:52 152/67 11/27/18 16:00 97.9 63 17 136/69 (91) 100 11/27/18 12:00 98.2 68 18 145/73 (97) 100 Intake and Output 11/27/18 11/28/18 18:59 06:59 Intake Total 805 ml 1025 ml Output Total 800 ml 1800 ml Balance 5 ml -775 ml IV Total 805 ml 75 ml Other 950 ml Output Urine Total 1800 ml Other 800 ml # Bowel Movements 1 Laboratory Tests 11/28/18 06:00: White Blood Count 8.8, Red Blood Count 3.49L, Hemoglobin 10.8L, Hematocrit 31.7L , Mean Corpuscular Volume 91, Mean Corpuscular Hemoglobin 30.8, Mean Corpuscular Hemoglobin Concent 33.9, Red Cell Distribution Width 11.3L, Platelet Count 135L, Mean Platelet Volume 7.7, Neutrophils (%) (Auto) 76.5H, Lymphocytes (%) (Auto) 15.2L, Monocytes (%) (Auto) 7.7, Eosinophils (%) (Auto) 0.0, Basophils (%) (Auto) 0.6, Sodium Level 140, Potassium Level 3.8, Chloride Level 104, Carbon Dioxide Level 30, Anion Gap 6, Blood Urea Nitrogen 11, Creatinine 1.0, Estimat Glomerular Filtration Rate , Glucose Level 141H, Calcium Level 9.1 Height (Feet): 6 Height (Inches): 6.00 Weight (Pounds): 182 General Appearance: no apparent distress Neck: normal alignment Cardiovascular: normal rate Respiratory/Chest: lungs clear Abdomen: normal bowel sounds Edema: no edema noted Arm (L), no edema noted Arm (R), no edema noted Leg (L), no edema noted Leg (R), no edema noted Pedal (L), no edema noted Pedal (R), no edema noted Generalized Objective Current Medications Medications (Trade) Dose Ordered Sig/Levi Route PRN Reason Start Time Stop Time Status Last Admin Dose Admin Acetaminophen (Tylenol) 650 mg Q4H PRN ORAL fever 11/22/18 13:30 12/22/18 13:29 Al Hydroxide/Mg Hydroxide (Mylanta II) 30 ml Q6H PRN ORAL dyspepsia 11/22/18 13:30 12/22/18 13:29 Dextrose (Dextrose 50%) 25 ml Q30M PRN IV Hypoglycemia 11/22/18 13:30 12/22/18 13:23 11/22/18 17:21 Dextrose (Dextrose 50%) 50 ml Q30M PRN IV hypoglycemia 11/22/18 13:30 12/22/18 13:29 Dextrose/Sodium Chloride 1,000 ml @ 75 mls/hr [id number] IV 11/22/18 13:16 12/22/18 13:15 11/28/18 06:45 Diphenhydramine HCl (Benadryl) 25 mg Q6H PRN ORAL Itching/Pruritis 11/22/18 13:30 12/22/18 13:29 Finasteride (Proscar) 5 mg DAILY ORAL 11/22/18 19:45 12/22/18 19:44 11/28/18 08:44 Hydralazine HCl (Apresoline) 50 mg Q6H PRN ORAL SBP > 160 11/22/18 17:30 12/22/18 17:29 11/27/18 01:26 Insulin Aspart (NovoLOG) BEFORE MEALS AND HS SUBQ 11/22/18 16:30 12/22/18 16:29 11/28/18 06:56 Irbesartan (Avapro) 150 mg BID ORAL 11/25/18 09:00 12/25/18 08:59 11/28/18 08:44 Methimazole (Tapazole) 10 mg BID ORAL 11/24/18 09:00 12/24/18 08:59 11/28/18 08:44 Morphine Sulfate (Morphine Sulfate) 2 mg Q4H PRN IVP severe Pain (Pain Scale 7-10) 11/22/18 13:30 11/29/18 13:29 11/27/18 22:23 Nateglinide (Starlix) 120 mg TIAC ORAL 11/27/18 11:30 12/24/18 11:29 11/28/18 06:46 Nitroglycerin (Ntg) 0.4 mg Q5M X 3 DOSES PRN SL Prn Chest Pain 11/22/18 13:30 12/22/18 13:29 Ondansetron HCl (Zofran) 4 mg Q6H PRN IVP Nausea & Vomiting 11/22/18 13:30 12/22/18 13:29 Pantoprazole (Protonix) 40 mg EVERY 12 HOURS ORAL 11/24/18 21:00 12/24/18 20:59 11/28/18 08:44 Polyethylene Glycol (Miralax) 17 gm HSPRN PRN ORAL Constipation 11/22/18 13:30 12/22/18 13:29 Sucralfate (Carafate) 1 gm FOUR TIMES A DAY ORAL 11/24/18 21:00 12/24/18 20:59 11/28/18 08:45 Tamsulosin HCl (Flomax) 0.4 mg BEDTIME ORAL 11/22/18 21:00 12/22/18 20:59 11/27/18 22:23 Temazepam (Restoril) 15 mg HSPRN PRN ORAL Insomnia 11/22/18 13:30 11/29/18 13:29 11/22/18 20:40 Kashif Adorno MD Nov 28, 2018 09:33
--- NOTE | 2018-11-28 10:09 | Pulmonology Progress Note ---
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 s/p L nephrostomy tube placement Anemia lower GI bleeding s/p EGF gastritis internal hemorrhoids severe protein calorie malnutrition Funguria HTN DM acute metabolic encephalopathy-resolved hyperthyroidism PLAN OF CARE MS floor CT A/P with L hydro, poss bladder mass Urology follows s/p cysto with findings of large bladder tumor pathology c/w high grade invasive urothelial carcinoma consider onco eval s/p L nephrostomy tube monitor renal parameters, lytes, correct lytes prn ; monitor urinary output ( Robertson and nephrostomy) pain management s/p abx as per ID post surg procedure, urine cx + yeast <10K , currently off abx , monitor closely for any signs fo infection, fever, leucocytosis GI follows s/p EGD and colon , > gastritis, internal hemorrhoids, s/p 1 polyp removal biopsy c/w gastritis , no H pylori bowel regimen GI prophylaxis monitor HH with goal to keep Hgb above 7, stool OB negative endo follows, started on Tapazole, thyroid US -no discrete thyroid nodules BS management with Starlix and SSI prn, [id number],6, at goal BP management with ARB Venous Duplex - no acute DVT O2 prn ECHO with pEF cardio follows lipid panel stable CT head no acute IC pathology, + old CVA, neuro follows supportive care case discussed and evaluated by supervising physician Subjective Allergies: Coded Allergies: No Known Allergies (Unverified , 04/09/16) Subjective awake, eating breakfast, reports some discomfort at the side of nephrostomy tube ] denies chest pain, SOB, cough, resp distress Objective Last 24 Hour Vital Signs Date Time Temp Pulse Resp B/P (MAP) Pulse Ox O2 Delivery O2 Flow Rate FiO2 11/28/18 08:44 122/55 11/28/18 08:00 97.9 71 16 122/55 (77) 99 11/28/18 04:00 97.7 67 17 156/71 (99) 99 11/28/18 00:00 98.1 61 17 161/74 (103) 100 11/27/18 21:00 Room Air 11/27/18 20:00 98.0 67 17 148/82 (104) 98 11/27/18 18:52 152/67 11/27/18 16:00 97.9 63 17 136/69 (91) 100 11/27/18 12:00 98.2 68 18 145/73 (97) 100 Intake and Output 11/27/18 11/28/18 18:59 06:59 Intake Total 805 ml 1025 ml Output Total 800 ml 1800 ml Balance 5 ml -775 ml IV Total 805 ml 75 ml Other 950 ml Output Urine Total 1800 ml Other 800 ml # Bowel Movements 1 Objective General Appearance: no acute distress, cachetic, awake, alert, responsive elderly AA male HEENT: normocephalic, atraumatic, anicteric, mucous membranes moist Respiratory/Chest: lungs clear - with moderate air exchange , no respiratory distress, no accessory muscle use Cardiovascular: normal rate, no JVD Abdomen: soft, non tender Genitourinary: Robertson and Left nephrostomy rube with bloody drainage Extremities: no edema, pedal pulses normal 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: abnormal gait, alert, responsive Musculoskeletal: atrophy - BLE Laboratory Tests 11/28/18 06:00: White Blood Count 8.8, Red Blood Count 3.49L, Hemoglobin 10.8L, Hematocrit 31.7L , Mean Corpuscular Volume 91, Mean Corpuscular Hemoglobin 30.8, Mean Corpuscular Hemoglobin Concent 33.9, Red Cell Distribution Width 11.3L, Platelet Count 135L, Mean Platelet Volume 7.7, Neutrophils (%) (Auto) 76.5H, Lymphocytes (%) (Auto) 15.2L, Monocytes (%) (Auto) 7.7, Eosinophils (%) (Auto) 0.0, Basophils (%) (Auto) 0.6, Sodium Level 140, Potassium Level 3.8, Chloride Level 104, Carbon Dioxide Level 30, Anion Gap 6, Blood Urea Nitrogen 11, Creatinine 1.0, Estimat Glomerular Filtration Rate , Glucose Level 141H, Calcium Level 9.1 Current Medications Medications (Trade) Dose Ordered Sig/Levi Route PRN Reason Start Time Stop Time Status Last Admin Dose Admin Acetaminophen (Tylenol) 650 mg Q4H PRN ORAL fever 11/22/18 13:30 12/22/18 13:29 Al Hydroxide/Mg Hydroxide (Mylanta II) 30 ml Q6H PRN ORAL dyspepsia 11/22/18 13:30 12/22/18 13:29 Dextrose (Dextrose 50%) 25 ml Q30M PRN IV Hypoglycemia 11/22/18 13:30 12/22/18 13:23 11/22/18 17:21 Dextrose (Dextrose 50%) 50 ml Q30M PRN IV hypoglycemia 11/22/18 13:30 12/22/18 13:29 Dextrose/Sodium Chloride 1,000 ml @ 75 mls/hr [id number] IV 11/22/18 13:16 12/22/18 13:15 11/28/18 06:45 Diphenhydramine HCl (Benadryl) 25 mg Q6H PRN ORAL Itching/Pruritis 11/22/18 13:30 12/22/18 13:29 Finasteride (Proscar) 5 mg DAILY ORAL 11/22/18 19:45 12/22/18 19:44 11/28/18 08:44 Hydralazine HCl (Apresoline) 50 mg Q6H PRN ORAL SBP > 160 11/22/18 17:30 12/22/18 17:29 11/27/18 01:26 Insulin Aspart (NovoLOG) BEFORE MEALS AND HS SUBQ 11/22/18 16:30 12/22/18 16:29 11/28/18 06:56 Irbesartan (Avapro) 150 mg BID ORAL 11/25/18 09:00 12/25/18 08:59 11/28/18 08:44 Methimazole (Tapazole) 10 mg DAILY ORAL 11/29/18 09:00 12/24/18 08:59 Morphine Sulfate (Morphine Sulfate) 2 mg Q4H PRN IVP severe Pain (Pain Scale 7-10) 11/22/18 13:30 11/29/18 13:29 11/27/18 22:23 Nateglinide (Starlix) 120 mg TIAC ORAL 11/27/18 11:30 12/24/18 11:29 11/28/18 06:46 Nitroglycerin (Ntg) 0.4 mg Q5M X 3 DOSES PRN SL Prn Chest Pain 11/22/18 13:30 12/22/18 13:29 Ondansetron HCl (Zofran) 4 mg Q6H PRN IVP Nausea & Vomiting 11/22/18 13:30 5/15/19 13:29 Pantoprazole (Protonix) 40 mg EVERY 12 HOURS ORAL 11/24/18 21:00 12/24/18 20:59 11/28/18 08:44 Polyethylene Glycol (Miralax) 17 gm HSPRN PRN ORAL Constipation 11/22/18 13:30 12/22/18 13:29 Sucralfate (Carafate) 1 gm FOUR TIMES A DAY ORAL 11/24/18 21:00 12/24/18 20:59 11/28/18 08:45 Tamsulosin HCl (Flomax) 0.4 mg BEDTIME ORAL 11/22/18 21:00 12/22/18 20:59 11/27/18 22:23 Temazepam (Restoril) 15 mg HSPRN PRN ORAL Insomnia 11/22/18 13:30 11/29/18 13:29 11/22/18 20:40 Ellen Mei BARREL RIFLER BUTTON Nov 28, 2018 10:09
--- NOTE | 2018-11-28 10:14 | Urology Progress Note ---
Assessment/Plan Assessment: 1. Left hydronephrosis. 2. Hematuria. 3. Pyuria. 4. Proteinuria. 5. Benign prostatic hypertrophy. 6. Incontinence. 7. Neurogenic bladder. 8. Cystitis. 9. Bladder cancer. 10. POD # 4, cysto/TURBT Plan: monitor clinically keep hernandez indwelling for now hand irrigated and do PRN left hydro secondary to bladder tumor left nephrostomy placed 11/[address] antegrade ureteral stent flomax and proscar diflucan added med onc eval d/w nursing staff Subjective Allergies: Coded Allergies: No Known Allergies (Unverified , 04/09/16) Subjective all noted, feels fair Objective Last 24 Hour Vital Signs Date Time Temp Pulse Resp B/P (MAP) Pulse Ox O2 Delivery O2 Flow Rate FiO2 11/28/18 08:44 122/55 11/28/18 08:00 97.9 71 16 122/55 (77) 99 11/28/18 04:00 97.7 67 17 156/71 (99) 99 11/28/18 00:00 98.1 61 17 161/74 (103) 100 11/27/18 21:00 Room Air 11/27/18 20:00 98.0 67 17 148/82 (104) 98 11/27/18 18:52 152/67 11/27/18 16:00 97.9 63 17 136/69 (91) 100 11/27/18 12:00 98.2 68 18 145/73 (97) 100 Intake and Output 11/27/18 11/28/18 18:59 06:59 Intake Total 805 ml 1025 ml Output Total 800 ml 1800 ml Balance 5 ml -775 ml IV Total 805 ml 75 ml Other 950 ml Output Urine Total 1800 ml Other 800 ml # Bowel Movements 1 Microbiology Date/Time Source Procedure Growth Status 11/22/18 12:20 Nasal Nares MRSA Culture - Final NO METHICILLIN RESISTANT STAPH AUREUS... Complete 11/22/18 11:15 Urine,Clean Catch Urine Culture - Final YEAST Complete 11/22/18 12:20 Rectal Mucosa VRE Culture - Final NO VANCOMYCIN RESISTANT ENTEROCOCCUS ... Complete 11/22/18 12:20 Rectal Mucosa - Final NO CARBAPENEM-RESISTANT ENTEROBACTERI... Complete Current Medications Medications (Trade) Dose Ordered Sig/Levi Route PRN Reason Start Time Stop Time Status Last Admin Dose Admin Acetaminophen (Tylenol) 650 mg Q4H PRN ORAL fever 11/22/18 13:30 12/22/18 13:29 Al Hydroxide/Mg Hydroxide (Mylanta II) 30 ml Q6H PRN ORAL dyspepsia 11/22/18 13:30 12/22/18 13:29 Dextrose (Dextrose 50%) 25 ml Q30M PRN IV Hypoglycemia 11/22/18 13:30 12/22/18 13:23 11/22/18 17:21 Dextrose (Dextrose 50%) 50 ml Q30M PRN IV hypoglycemia 11/22/18 13:30 12/22/18 13:29 Dextrose/Sodium Chloride 1,000 ml @ 75 mls/hr [id number] IV 11/22/18 13:16 12/22/18 13:15 11/28/18 06:45 Diphenhydramine HCl (Benadryl) 25 mg Q6H PRN ORAL Itching/Pruritis 11/22/18 13:30 12/22/18 13:29 Finasteride (Proscar) 5 mg DAILY ORAL 11/22/18 19:45 12/22/18 19:44 11/28/18 08:44 Hydralazine HCl (Apresoline) 50 mg Q6H PRN ORAL SBP > 160 11/22/18 17:30 12/22/18 17:29 11/27/18 01:26 Insulin Aspart (NovoLOG) BEFORE MEALS AND HS SUBQ 11/22/18 16:30 12/22/18 16:29 11/28/18 06:56 Irbesartan (Avapro) 150 mg BID ORAL 11/25/18 09:00 12/25/18 08:59 11/28/18 08:44 Methimazole (Tapazole) 10 mg DAILY ORAL 11/29/18 09:00 12/24/18 08:59 Morphine Sulfate (Morphine Sulfate) 2 mg Q4H PRN IVP severe Pain (Pain Scale 7-10) 11/22/18 13:30 11/29/18 13:29 11/27/18 22:23 Nateglinide (Starlix) 120 mg TIAC ORAL 11/27/18 11:30 12/24/18 11:29 11/28/18 06:46 Nitroglycerin (Ntg) 0.4 mg Q5M X 3 DOSES PRN SL Prn Chest Pain 11/22/18 13:30 12/22/18 13:29 Ondansetron HCl (Zofran) 4 mg Q6H PRN IVP Nausea & Vomiting 11/22/18 13:30 12/22/18 13:29 Pantoprazole (Protonix) 40 mg EVERY 12 HOURS ORAL 11/24/18 21:00 12/24/18 20:59 11/28/18 08:44 Polyethylene Glycol (Miralax) 17 gm HSPRN PRN ORAL Constipation 11/22/18 13:30 12/22/18 13:29 Sucralfate (Carafate) 1 gm FOUR TIMES A DAY ORAL 11/24/18 21:00 12/24/18 20:59 11/28/18 08:45 Tamsulosin HCl (Flomax) 0.4 mg BEDTIME ORAL 11/22/18 21:00 12/22/18 20:59 11/27/18 22:23 Temazepam (Restoril) 15 mg HSPRN PRN ORAL Insomnia 11/22/18 13:30 11/29/18 13:29 11/22/18 20:40 Laboratory Tests 11/28/18 06:00: White Blood Count 8.8, Red Blood Count 3.49L, Hemoglobin 10.8L, Hematocrit 31.7L , Mean Corpuscular Volume 91, Mean Corpuscular Hemoglobin 30.8, Mean Corpuscular Hemoglobin Concent 33.9, Red Cell Distribution Width 11.3L, Platelet Count 135L, Mean Platelet Volume 7.7, Neutrophils (%) (Auto) 76.5H, Lymphocytes (%) (Auto) 15.2L, Monocytes (%) (Auto) 7.7, Eosinophils (%) (Auto) 0.0, Basophils (%) (Auto) 0.6, Sodium Level 140, Potassium Level 3.8, Chloride Level 104, Carbon Dioxide Level 30, Anion Gap 6, Blood Urea Nitrogen 11, Creatinine 1.0, Estimat Glomerular Filtration Rate , Glucose Level 141H, Calcium Level 9.1 Height (Feet): 6 Height (Inches): 6.00 Weight (Pounds): 182 Objective exam stable hernandez cath, urine slightly blood-tinged, wes left nephrostomy blood-tinged final path noted Macho Allen MD Nov 28, 2018 10:14
[2018-11-28 11:45] VITALS: BP 168/96
--- NOTE | 2018-11-28 13:28 | Internal Med Progress Note ---
Subjective Date of Service: Nov 28, 2018 Physician Name Peter,Jean-Claude Attending Physician Jaziel Lowe MD Current Medications Medications (Trade) Dose Ordered Sig/Levi Route PRN Reason Start Time Stop Time Status Last Admin Dose Admin Acetaminophen (Tylenol) 650 mg Q4H PRN ORAL fever 11/22/18 13:30 12/22/18 13:29 Al Hydroxide/Mg Hydroxide (Mylanta II) 30 ml Q6H PRN ORAL dyspepsia 11/22/18 13:30 12/22/18 13:29 Dextrose (Dextrose 50%) 25 ml Q30M PRN IV Hypoglycemia 11/22/18 13:30 12/22/18 13:23 11/22/18 17:21 Dextrose (Dextrose 50%) 50 ml Q30M PRN IV hypoglycemia 11/22/18 13:30 12/22/18 13:29 Dextrose/Sodium Chloride 1,000 ml @ 75 mls/hr [id number] IV 11/22/18 13:16 12/22/18 13:15 11/28/18 06:45 Diphenhydramine HCl (Benadryl) 25 mg Q6H PRN ORAL Itching/Pruritis 11/22/18 13:30 12/22/18 13:29 Finasteride (Proscar) 5 mg DAILY ORAL 11/22/18 19:45 12/22/18 19:44 11/28/18 08:44 Hydralazine HCl (Apresoline) 50 mg Q6H PRN ORAL SBP > 160 11/22/18 17:30 12/22/18 17:29 11/27/18 01:26 Insulin Aspart (NovoLOG) BEFORE MEALS AND HS SUBQ 11/22/18 16:30 12/22/18 16:29 11/28/18 12:27 Irbesartan (Avapro) 150 mg BID ORAL 11/25/18 09:00 12/25/18 08:59 11/28/18 08:44 Methimazole (Tapazole) 10 mg DAILY ORAL 11/29/18 09:00 12/24/18 08:59 Morphine Sulfate (Morphine Sulfate) 2 mg Q4H PRN IVP severe Pain (Pain Scale 7-10) 11/22/18 13:30 11/29/18 13:29 11/27/18 22:23 Nateglinide (Starlix) 120 mg TIAC ORAL 11/27/18 11:30 12/24/18 11:29 11/28/18 12:26 Nitroglycerin (Ntg) 0.4 mg Q5M X 3 DOSES PRN SL Prn Chest Pain 11/22/18 13:30 12/22/18 13:29 Ondansetron HCl (Zofran) 4 mg Q6H PRN IVP Nausea & Vomiting 11/22/18 13:30 12/22/18 13:29 Pantoprazole (Protonix) 40 mg EVERY 12 HOURS ORAL 11/24/18 21:00 12/24/18 20:59 11/28/18 08:44 Polyethylene Glycol (Miralax) 17 gm HSPRN PRN ORAL Constipation 11/22/18 13:30 12/22/18 13:29 Sucralfate (Carafate) 1 gm FOUR TIMES A DAY ORAL 11/24/18 21:00 12/24/18 20:59 11/28/18 12:26 Tamsulosin HCl (Flomax) 0.4 mg BEDTIME ORAL 11/22/18 21:00 12/22/18 20:59 11/27/18 22:23 Temazepam (Restoril) 15 mg HSPRN PRN ORAL Insomnia 11/22/18 13:30 11/29/18 13:29 11/22/18 20:40 Allergies: Coded Allergies: No Known Allergies (Unverified , 04/09/16) ROS Limited/Unobtainable: No Constitutional: Reports: no symptoms HEENT: Reports: no symptoms Cardiovascular: Reports: no symptoms Respiratory: Reports: no symptoms Gastrointestinal/Abdominal: Reports: no symptoms Genitourinary: Reports: hematuria 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: Reports: no symptoms Subjective 83 YO M admitted with gastrointestinal hemorrhage. S/P endoscopy and colonoscopy 11/24/18. S/P transurethral bladder tumor resection 11/24/18. Cover for Lon Lowe Objective Last Vital Signs Date Time Temp Pulse Resp B/P (MAP) Pulse Ox O2 Delivery O2 Flow Rate FiO2 11/28/18 11:45 98.0 63 18 168/96 (120) 96 11/28/18 09:00 Room Air 11/26/18 10:12 4.0 Laboratory Tests Test 11/28/18 06:00 White Blood Count 8.8 K/UL (4.8-10.8) Red Blood Count 3.49 M/UL (4.70-6.10) L Hemoglobin 10.8 G/DL (14.2-18.0) L Hematocrit 31.7 % (42.0-52.0) L Mean Corpuscular Volume 91 FL (80-99) Mean Corpuscular Hemoglobin 30.8 PG (27.0-31.0) Mean Corpuscular Hemoglobin Concent 33.9 G/DL (32.0-36.0) Red Cell Distribution Width 11.3 % (11.6-14.8) L Platelet Count 135 K/UL (150-450) L Mean Platelet Volume 7.7 FL (6.5-10.1) Neutrophils (%) (Auto) 76.5 % (45.0-75.0) H Lymphocytes (%) (Auto) 15.2 % (20.0-45.0) L Monocytes (%) (Auto) 7.7 % (1.0-10.0) Eosinophils (%) (Auto) 0.0 % (0.0-3.0) Basophils (%) (Auto) 0.6 % (0.0-2.0) Sodium Level 140 MMOL/L (136-145) Potassium Level 3.8 MMOL/L (3.5-5.1) Chloride Level 104 MMOL/L (98-107) Carbon Dioxide Level 30 MMOL/L (21-32) Anion Gap 6 mmol/L (5-15) Blood Urea Nitrogen 11 mg/dL (7-18) Creatinine 1.0 MG/DL (0.55-1.30) Estimat Glomerular Filtration Rate mL/min (>60) Glucose Level 141 MG/DL (74-106) H Calcium Level 9.1 MG/DL (8.5-10.1) Intake and Output 11/27/18 11/28/18 19:00 07:00 Intake Total 1830 ml Output Total 1400 ml 1200 ml Balance 430 ml -1200 ml IV Total 880 ml Other 950 ml Output Urine Total 600 ml 1200 ml Other 800 ml # Bowel Movements 1 Objective PHYSICAL EXAMINATION: GENERAL: The patient is awake, alert, responsive, very pleasant, but forgetful. HEAD AND NECK: Pupils are reactive to light. Extraocular movements intact. Neck was supple. No JVD. LUNGS: Good air entry. No wheezing or rales. Left side of the chest has a pacemaker. ABDOMEN: Soft, nondistended, and nontender. Positive bowel sounds. EXTREMITIES: No cyanosis, clubbing, or edema. NEUROLOGIC: CUSTOMS AND IMMIGRATION OFFICER II through XII grossly intact. Motor is 5/5 in all extremities. Gait was not assessed due to the patient's status. RECTAL/GENITOURINARY: Refused and deferred. Assessment/Plan Assessment/Plan ASSESSMENT: 1. Gastrointestinal bleed. 2. Anemia possible due to acute blood loss. 3. Hypokalemia. 4. Acute urinary tract infection. 5. Moderate left hydronephrosis with hydroureter. 6. Cardiac arrhythmia status post pacemaker. 7. Diabetes type 2. 8. Hypertension. 9. Gastritis 10. hemorrhoids 11. hematuria-Bladder cancer PLAN: 1. Admit the patient to medical floor. 2. We will follow up with the laboratory. 3. Clear liquid diet. 4. Gastrointestinal consultation with Dr. Hernandez. 5. Code status is Full Code at this time. 6. See Urology consultation, Dr. Allen S/P transurethral resection bladder tumor High grade urothelial carcinoma 7. S/P Esophagogastroduodenoscopy and colonoscopy 11/24/18. 8. We will follow up with urine culture and Cardiology consultation with Dr. Nj Valenzuela. 9. Protonix 40 mg BID and carafate 1 gm QID 10 Oncology consult Jean-Claude Peter MD Nov 28, 2018 13:28
--- NOTE | 2018-11-28 15:52 | Cardiology Progress Note ---
Assessment/Plan Problem List: (1) Hydronephrosis (2) Bladder neoplasm (3) Diabetes mellitus (4) HTN (hypertension) (5) Hyperthyroidism Status: doing well, stable Status Narrative Stable, s/p TURP and s/p L nephrostomy tube for bladder tumor/obstruction. BP remains elevated. Assessment/Plan Continue irbesartan for HTN. Add norvasc Post op followup w/ Dr. Allen and oncology for bladder tumor Subjective ROS Limited/Unobtainable: No Subjective Cardiology for Dr. Valenzuela Pt has no c/o chest pain, abd pain or dyspnea., Objective Last 24 Hour Vital Signs Date Time Temp Pulse Resp B/P (MAP) Pulse Ox O2 Delivery O2 Flow Rate FiO2 11/28/18 11:45 98.0 63 18 168/96 (120) 96 11/28/18 09:00 Room Air 11/28/18 08:44 122/55 11/28/18 08:00 97.9 71 16 122/55 (77) 99 11/28/18 04:00 97.7 67 17 156/71 (99) 99 11/28/18 00:00 98.1 61 17 161/74 (103) 100 11/27/18 21:00 Room Air 11/27/18 20:00 98.0 67 17 148/82 (104) 98 11/27/18 18:52 152/67 11/27/18 16:00 97.9 63 17 136/69 (91) 100 General Appearance: WD/WN, no apparent distress, alert EENT: PERRL/EOMI Neck: non-tender, supple, no JVD Rhythm: NSR Cardiovascular: normal rate, regular rhythm, no gallop/murmur Respiratory/Chest: lungs clear Abdomen: non tender, soft, other - L nephrostomy tube w/ hematuria Intake and Output 11/27/18 11/28/18 19:00 07:00 Intake Total 1830 ml Output Total 1400 ml 1200 ml Balance 430 ml -1200 ml IV Total 880 ml Other 950 ml Output Urine Total 600 ml 1200 ml Other 800 ml # Bowel Movements 1 Laboratory Tests Test 11/28/18 06:00 White Blood Count 8.8 K/UL (4.8-10.8) Red Blood Count 3.49 M/UL (4.70-6.10) L Hemoglobin 10.8 G/DL (14.2-18.0) L Hematocrit 31.7 % (42.0-52.0) L Mean Corpuscular Volume 91 FL (80-99) Mean Corpuscular Hemoglobin 30.8 PG (27.0-31.0) Mean Corpuscular Hemoglobin Concent 33.9 G/DL (32.0-36.0) Red Cell Distribution Width 11.3 % (11.6-14.8) L Platelet Count 135 K/UL (150-450) L Mean Platelet Volume 7.7 FL (6.5-10.1) Neutrophils (%) (Auto) 76.5 % (45.0-75.0) H Lymphocytes (%) (Auto) 15.2 % (20.0-45.0) L Monocytes (%) (Auto) 7.7 % (1.0-10.0) Eosinophils (%) (Auto) 0.0 % (0.0-3.0) Basophils (%) (Auto) 0.6 % (0.0-2.0) Sodium Level 140 MMOL/L (136-145) Potassium Level 3.8 MMOL/L (3.5-5.1) Chloride Level 104 MMOL/L (98-107) Carbon Dioxide Level 30 MMOL/L (21-32) Anion Gap 6 mmol/L (5-15) Blood Urea Nitrogen 11 mg/dL (7-18) Creatinine 1.0 MG/DL (0.55-1.30) Estimat Glomerular Filtration Rate mL/min (>60) Glucose Level 141 MG/DL (74-106) H Calcium Level 9.1 MG/DL (8.5-10.1) Sue Mullins MD Nov 28, 2018 15:52
[2018-11-28 16:00] VITALS: BP 155/71
--- NOTE | 2018-11-28 19:13 | NUR ---
HAND-OFF: Report given to DONELL Page.
--- NOTE | 2018-11-28 19:41 | NUR ---
NURSE NOTES: Received patient awake,verbal,forgetful and confused at times,follows simple command,left nephrostomy and indwelling hernandez catheter observed to be draining blood tinged urine.
[2018-11-28 20:00] VITALS: BP 149/68
[2018-11-28] MEDS: Tamsulosin 0.4mg cap ORAL SCH (20:26)
[2018-11-29] VITALS: BP 144/69
[2018-11-29 04:00] VITALS: BP 145/73
[2018-11-29] MEDS: Nateglinide 60mg tab ORAL SCH (05:36)
[2018-11-29] MEDS: NovoLOG Insulin Flexpen SUBQ SCH ×4 (05:37→20:45)
--- NOTE | 2018-11-29 06:36 | General Progress Note ---
Assessment/Plan Problem List: (1) Acute metabolic encephalopathy ICD Codes: G93.41 - Metabolic encephalopathy SNOMED: 57701302, 843155716 (2) Hyperthyroidism ICD Codes: E05.90 - Thyrotoxicosis, unspecified without thyrotoxic crisis or storm SNOMED: 10773809 (3) Diabetes mellitus ICD Codes: E11.9 - Type 2 diabetes mellitus without complications SNOMED: 99289344 (4) Bladder neoplasm ICD Codes: D49.4 - Neoplasm of unspecified behavior of bladder SNOMED: 768580595 (5) Hydronephrosis ICD Codes: N13.30 - Unspecified hydronephrosis SNOMED: 01229800 Assessment: thyroid US revealed normal anatomy without nodules hyperthyroidism is most likely due to Graves' and less likely due to Subacute Thyroiditis continue Tapazole 10 mg daily Tg Ab negative follow TSI, ATPO - pending continue Starlix 120 mg ac tid continue NISS ac / hs Subjective Allergies: Coded Allergies: No Known Allergies (Unverified , 04/09/16) All Systems: reviewed and negative except above Subjective events noted Item Value Date Time Bedside Blood Glucose 139 mg/dl H 11/29/18 0608 Bedside Blood Glucose 142 mg/dl H 11/28/18 2059 Bedside Blood Glucose 169 mg/dl H 11/28/18 1711 Bedside Blood Glucose 182 mg/dl H 11/28/18 1227 Bedside Blood Glucose 142 mg/dl H 11/28/18 0656 Objective Last 24 Hour Vital Signs Date Time Temp Pulse Resp B/P (MAP) Pulse Ox O2 Delivery O2 Flow Rate FiO2 11/29/18 04:00 98.4 65 17 145/73 (97) 99 11/29/18 00:00 98.2 65 18 144/69 (94) 98 11/28/18 20:00 Room Air 11/28/18 20:00 98.5 65 18 149/68 (95) 100 11/28/18 17:10 155/71 11/28/18 16:00 99.0 71 19 155/71 (99) 100 11/28/18 11:45 98.0 63 18 168/96 (120) 96 11/28/18 09:00 Room Air 11/28/18 08:44 122/55 11/28/18 08:00 97.9 71 16 122/55 (77) 99 Intake and Output 11/28/18 11/29/18 19:00 07:00 Intake Total 1680 ml 1155 ml Output Total 2025 ml 1850 ml Balance -345 ml -695 ml Intake Oral 780 ml 380 ml IV Total 900 ml 775 ml Output Urine Total 2025 ml 650 ml Other 1200 ml Height (Feet): 6 Height (Inches): 6.00 Weight (Pounds): 182 General Appearance: no apparent distress Neck: normal alignment Cardiovascular: normal rate Respiratory/Chest: lungs clear Abdomen: normal bowel sounds Objective Current Medications Medications (Trade) Dose Ordered Sig/Levi Route PRN Reason Start Time Stop Time Status Last Admin Dose Admin Acetaminophen (Tylenol) 650 mg Q4H PRN ORAL fever 11/22/18 13:30 12/22/18 13:29 Al Hydroxide/Mg Hydroxide (Mylanta II) 30 ml Q6H PRN ORAL dyspepsia 11/22/18 13:30 12/22/18 13:29 Amlodipine Besylate (Norvasc) 2.5 mg DAILY ORAL 11/29/18 09:00 12/29/18 08:59 Dextrose (Dextrose 50%) 25 ml Q30M PRN IV Hypoglycemia 11/22/18 13:30 12/22/18 13:23 11/22/18 17:21 Dextrose (Dextrose 50%) 50 ml Q30M PRN IV hypoglycemia 11/22/18 13:30 12/22/18 13:29 Dextrose/Sodium Chloride 1,000 ml @ 75 mls/hr [id number] IV 11/22/18 13:16 12/22/18 13:15 11/28/18 20:25 Diphenhydramine HCl (Benadryl) 25 mg Q6H PRN ORAL Itching/Pruritis 11/22/18 13:30 12/22/18 13:29 Finasteride (Proscar) 5 mg DAILY ORAL 11/22/18 19:45 12/22/18 19:44 11/28/18 08:44 Hydralazine HCl (Apresoline) 50 mg Q6H PRN ORAL SBP > 160 11/22/18 17:30 12/22/18 17:29 11/27/18 01:26 Insulin Aspart (NovoLOG) BEFORE MEALS AND HS SUBQ 11/22/18 16:30 12/22/18 16:29 11/29/18 05:37 Irbesartan (Avapro) 150 mg BID ORAL 11/25/18 09:00 12/25/18 08:59 11/28/18 17:10 Methimazole (Tapazole) 10 mg DAILY ORAL 11/29/18 09:00 12/24/18 08:59 Morphine Sulfate (Morphine Sulfate) 2 mg Q4H PRN IVP severe Pain (Pain Scale 7-10) 11/22/18 13:30 11/29/18 13:29 11/27/18 22:23 Nateglinide (Starlix) 120 mg TIAC ORAL 11/27/18 11:30 12/24/18 11:29 11/29/18 05:36 Nitroglycerin (Ntg) 0.4 mg Q5M X 3 DOSES PRN SL Prn Chest Pain 11/22/18 13:30 12/22/18 13:29 Ondansetron HCl (Zofran) 4 mg Q6H PRN IVP Nausea & Vomiting 11/22/18 13:30 12/22/18 13:29 Pantoprazole (Protonix) 40 mg EVERY 12 HOURS ORAL 11/24/18 21:00 12/24/18 20:59 11/28/18 20:26 Polyethylene Glycol (Miralax) 17 gm HSPRN PRN ORAL Constipation 11/22/18 13:30 12/22/18 13:29 Sucralfate (Carafate) 1 gm FOUR TIMES A DAY ORAL 11/24/18 21:00 12/24/18 20:59 11/28/18 20:26 Tamsulosin HCl (Flomax) 0.4 mg BEDTIME ORAL 11/22/18 21:00 12/22/18 20:59 11/28/18 20:26 Temazepam (Restoril) 15 mg HSPRN PRN ORAL Insomnia 11/22/18 13:30 11/29/18 13:29 11/29/18 01:07 Kashif Adorno MD Nov 29, 2018 06:36
--- NOTE | 2018-11-29 07:05 | NUR ---
HAND-OFF: Report given to Stacie Jean Baptiste RN.
--- NOTE | 2018-11-29 07:09 | NUR ---
NURSE NOTES: Received report from DONELL Page. Pt in bed, asleep, snoring, respirations regular and unlabored, bed in lowest position, call light within reach, bed alarm on.
[2018-11-29 07:12] LABS: ANION GAP 6 mmol/L (5-15); BLOOD UREA NITROGEN 14 mg/dL (7-18); CARBON DIOXIDE 29 MMOL/L (21-32); CHLORIDE 105 MMOL/L (98-107); CREATININE 1.1 MG/DL (0.55-1.30); POTASSIUM 3.6 MMOL/L (3.5-5.1); SODIUM 140 MMOL/L (136-145)
[2018-11-29 07:13] LABS: BASOPHILS % (AUTO) 0.7 % (0.0-2.0); HEMATOCRIT 28.8 % (42.0-52.0); HEMOGLOBIN 9.8 G/DL (14.2-18.0); MEAN CORPUSCULAR VOLUME 90 FL (80-99); MONOCYTES % (AUTO) 7.6 % (1.0-10.0); NEUTROPHILS % (AUTO) 79.7 % (45.0-75.0); PLATELET COUNT 145 K/UL (150-450); RED BLOOD COUNT 3.21 M/UL (4.70-6.10); WHITE BLOOD COUNT 8.5 K/UL (4.8-10.8)
[2018-11-29 08:00] VITALS: BP 158/64
[2018-11-29] MEDS: Sucralfate 1gm tab ORAL SCH ×4 (08:10→20:44)
[2018-11-29] MEDS: Irbesartan 150mg tablet ORAL SCH ×2 (08:10→18:23)
[2018-11-29] MEDS: D5 1/2NS 1,000 ML IV SCH (08:39)
--- NOTE | 2018-11-29 09:28 | Urology Progress Note ---
Assessment/Plan Assessment: 1. Left hydronephrosis. 2. Hematuria. 3. Pyuria. 4. Proteinuria. 5. Benign prostatic hypertrophy. 6. Incontinence. 7. Neurogenic bladder. 8. Cystitis. 9. Bladder cancer. 10. POD # 5, cysto/TURBT Plan: monitor clinically keep hernandez indwelling for now, voiding trial later hand irrigated and do PRN left hydro secondary to bladder tumor left nephrostomy placed 11/[address] antegrade ureteral stent, reattempt later? flomax and proscar s/p diflucan med onc eval Subjective Allergies: Coded Allergies: No Known Allergies (Unverified , 04/09/16) Subjective all noted, feels fair Objective Last 24 Hour Vital Signs Date Time Temp Pulse Resp B/P (MAP) Pulse Ox O2 Delivery O2 Flow Rate FiO2 11/29/18 08:10 65 145/73 11/29/18 08:10 145/73 11/29/18 08:00 97.9 61 19 158/64 (95) 97 11/29/18 04:00 98.4 65 17 145/73 (97) 99 11/29/18 00:00 98.2 65 18 144/69 (94) 98 11/28/18 20:00 Room Air 11/28/18 20:00 98.5 65 18 149/68 (95) 100 11/28/18 17:10 155/71 11/28/18 16:00 99.0 71 19 155/71 (99) 100 11/28/18 11:45 98.0 63 18 168/96 (120) 96 Intake and Output 11/28/18 11/29/18 18:59 06:59 Intake Total 1605 ml 1305 ml Output Total 2025 ml 1850 ml Balance -420 ml -545 ml Intake Oral 780 ml 380 ml IV Total 825 ml 925 ml Output Urine Total 2025 ml 650 ml Other 1200 ml Microbiology Date/Time Source Procedure Growth Status 11/22/18 12:20 Nasal Nares MRSA Culture - Final NO METHICILLIN RESISTANT STAPH AUREUS... Complete 11/22/18 11:15 Urine,Clean Catch Urine Culture - Final YEAST Complete 11/22/18 12:20 Rectal Mucosa VRE Culture - Final NO VANCOMYCIN RESISTANT ENTEROCOCCUS ... Complete 11/22/18 12:20 Rectal Mucosa - Final NO CARBAPENEM-RESISTANT ENTEROBACTERI... Complete Current Medications Medications (Trade) Dose Ordered Sig/Levi Route PRN Reason Start Time Stop Time Status Last Admin Dose Admin Acetaminophen (Tylenol) 650 mg Q4H PRN ORAL fever 11/22/18 13:30 12/22/18 13:29 Al Hydroxide/Mg Hydroxide (Mylanta II) 30 ml Q6H PRN ORAL dyspepsia 11/22/18 13:30 12/22/18 13:29 Amlodipine Besylate (Norvasc) 2.5 mg DAILY ORAL 11/29/18 09:00 12/29/18 08:59 11/29/18 08:10 Dextrose (Dextrose 50%) 25 ml Q30M PRN IV Hypoglycemia 11/22/18 13:30 12/22/18 13:23 11/22/18 17:21 Dextrose (Dextrose 50%) 50 ml Q30M PRN IV hypoglycemia 11/22/18 13:30 12/22/18 13:29 Dextrose/Sodium Chloride 1,000 ml @ 75 mls/hr [id number] IV 11/22/18 13:16 12/22/18 13:15 11/29/18 08:39 Diphenhydramine HCl (Benadryl) 25 mg Q6H PRN ORAL Itching/Pruritis 11/22/18 13:30 12/22/18 13:29 Finasteride (Proscar) 5 mg DAILY ORAL 11/22/18 19:45 12/22/18 19:44 11/29/18 08:11 Hydralazine HCl (Apresoline) 50 mg Q6H PRN ORAL SBP > 160 11/22/18 17:30 12/22/18 17:29 11/27/18 01:26 Insulin Aspart (NovoLOG) BEFORE MEALS AND HS SUBQ 11/22/18 16:30 12/22/18 16:29 11/29/18 05:37 Irbesartan (Avapro) 150 mg BID ORAL 11/25/18 09:00 12/25/18 08:59 11/29/18 08:10 Methimazole (Tapazole) 10 mg DAILY ORAL 11/29/18 09:00 12/24/18 08:59 11/29/18 08:10 Morphine Sulfate (Morphine Sulfate) 2 mg Q4H PRN IVP severe Pain (Pain Scale 7-10) 11/22/18 13:30 11/29/18 13:29 11/27/18 22:23 Nateglinide (Starlix) 120 mg TIAC ORAL 11/27/18 11:30 12/24/18 11:29 11/29/18 05:36 Nitroglycerin (Ntg) 0.4 mg Q5M X 3 DOSES PRN SL Prn Chest Pain 11/22/18 13:30 12/22/18 13:29 Ondansetron HCl (Zofran) 4 mg Q6H PRN IVP Nausea & Vomiting 11/22/18 13:30 12/22/18 13:29 Pantoprazole (Protonix) 40 mg EVERY 12 HOURS ORAL 11/24/18 21:00 12/24/18 20:59 11/29/18 08:10 Polyethylene Glycol (Miralax) 17 gm HSPRN PRN ORAL Constipation 11/22/18 13:30 12/22/18 13:29 Sucralfate (Carafate) 1 gm FOUR TIMES A DAY ORAL 11/24/18 21:00 12/24/18 20:59 11/29/18 08:10 Tamsulosin HCl (Flomax) 0.4 mg BEDTIME ORAL 11/22/18 21:00 12/22/18 20:59 11/28/18 20:26 Temazepam (Restoril) 15 mg HSPRN PRN ORAL Insomnia 11/22/18 13:30 11/29/18 13:29 11/29/18 01:07 Laboratory Tests 11/29/18 05:10: White Blood Count 8.5, Red Blood Count 3.21L, Hemoglobin 9.8L, Hematocrit 28.8L , Mean Corpuscular Volume 90, Mean Corpuscular Hemoglobin 30.4, Mean Corpuscular Hemoglobin Concent 33.9, Red Cell Distribution Width 11.0L, Platelet Count 145L, Mean Platelet Volume 7.1, Neutrophils (%) (Auto) 79.7H, Lymphocytes (%) (Auto) 12.0L, Monocytes (%) (Auto) 7.6, Eosinophils (%) (Auto) 0.0, Basophils (%) (Auto) 0.7, Sodium Level 140, Potassium Level 3.6, Chloride Level 105, Carbon Dioxide Level 29, Anion Gap 6, Blood Urea Nitrogen 14, Creatinine 1.1, Estimat Glomerular Filtration Rate , Glucose Level 141H, Calcium Level 9.0 Height (Feet): 6 Height (Inches): 6.00 Weight (Pounds): 182 Objective exam stable hernandez cath, urine slightly blood-tinged, wes left nephrostomy blood-tinged final path noted Macho Allen MD Nov 29, 2018 09:28
--- NOTE | 2018-11-29 11:06 | GI Progress Note ---
Assessment/Plan Problems: (1) Lower GI bleed ICD Codes: K92.2 - Gastrointestinal hemorrhage, unspecified SNOMED: 59536536 (2) Anemia ICD Codes: D64.9 - Anemia, unspecified SNOMED: 268357027 (3) Bleeding hemorrhoid ICD Codes: K64.9 - Unspecified hemorrhoids SNOMED: 68177077 (4) Alzheimer's dementia ICD Codes: G30.9 - Alzheimer's disease, unspecified; F02.80 - Dementia in other diseases classified elsewhere without behavioral disturbance SNOMED: 70375699 (5) Diabetes mellitus ICD Codes: E11.9 - Type 2 diabetes mellitus without complications SNOMED: 46018955 Status: stable Status Narrative Discussed with Dr. Hernandez Assessment/Plan SUMMARY OF FINDINGS: 1. Gastritis and possibly gastric ulceration, status post biopsy. 2. One colonic polyp removed, see above for details. 3. Internal hemorrhoids. Occult blood stool negative RECOMMENDATIONS: Follow up pathology. >> H. pylori negative Resume diet. Follow with Urology given diagnosis of bladder cancer. monitor H&H, prn transfusions bowel regime ppi fu labs The patient was seen and examined at bedside and all new and available data was reviewed in the patients chart. I agree with the above findings, impression and plan. (Patient seen earlier today. Signature stamp does not reflect patient encounter time.). - Prince Hernandez MD Subjective Gastrointestinal/Abdominal: Reports: no symptoms Subjective Limited Objective Last 24 Hour Vital Signs Date Time Temp Pulse Resp B/P (MAP) Pulse Ox O2 Delivery O2 Flow Rate FiO2 11/29/18 09:00 Room Air 11/29/18 08:10 65 145/73 11/29/18 08:10 145/73 11/29/18 08:00 97.9 61 19 158/64 (95) 97 11/29/18 04:00 98.4 65 17 145/73 (97) 99 11/29/18 00:00 98.2 65 18 144/69 (94) 98 11/28/18 20:00 Room Air 11/28/18 20:00 98.5 65 18 149/68 (95) 100 11/28/18 17:10 155/71 11/28/18 16:00 99.0 71 19 155/71 (99) 100 11/28/18 11:45 98.0 63 18 168/96 (120) 96 Intake and Output 11/28/18 11/29/18 18:59 06:59 Intake Total 1605 ml 1305 ml Output Total 2025 ml 1850 ml Balance -420 ml -545 ml Intake Oral 780 ml 380 ml IV Total 825 ml 925 ml Output Urine Total 2025 ml 650 ml Other 1200 ml Laboratory Tests Test 11/29/18 05:10 White Blood Count 8.5 K/UL (4.8-10.8) Red Blood Count 3.21 M/UL (4.70-6.10) L Hemoglobin 9.8 G/DL (14.2-18.0) L Hematocrit 28.8 % (42.0-52.0) L Mean Corpuscular Volume 90 FL (80-99) Mean Corpuscular Hemoglobin 30.4 PG (27.0-31.0) Mean Corpuscular Hemoglobin Concent 33.9 G/DL (32.0-36.0) Red Cell Distribution Width 11.0 % (11.6-14.8) L Platelet Count 145 K/UL (150-450) L Mean Platelet Volume 7.1 FL (6.5-10.1) Neutrophils (%) (Auto) 79.7 % (45.0-75.0) H Lymphocytes (%) (Auto) 12.0 % (20.0-45.0) L Monocytes (%) (Auto) 7.6 % (1.0-10.0) Eosinophils (%) (Auto) 0.0 % (0.0-3.0) Basophils (%) (Auto) 0.7 % (0.0-2.0) Sodium Level 140 MMOL/L (136-145) Potassium Level 3.6 MMOL/L (3.5-5.1) Chloride Level 105 MMOL/L (98-107) Carbon Dioxide Level 29 MMOL/L (21-32) Anion Gap 6 mmol/L (5-15) Blood Urea Nitrogen 14 mg/dL (7-18) Creatinine 1.1 MG/DL (0.55-1.30) Estimat Glomerular Filtration Rate mL/min (>60) Glucose Level 141 MG/DL (74-106) H Calcium Level 9.0 MG/DL (8.5-10.1) Height (Feet): 6 Height (Inches): 6.00 Weight (Pounds): 182 General Appearance: WD/WN, no apparent distress, alert, thin Cardiovascular: normal rate Respiratory/Chest: normal breath sounds, no respiratory distress Abdominal Exam: normal bowel sounds, non tender, soft Extremities: normal range of motion, non-tender Osiel Vega NP Nov 29, 2018 11:06
--- NOTE | 2018-11-29 11:58 | Pulmonology Progress Note ---
Assessment/Plan Problems: (1) Lower GI bleed (2) Hydronephrosis (3) Anemia (4) Bladder neoplasm (5) Chronic cerebrovascular accident (CVA) (6) Diabetes mellitus (7) Alzheimer's dementia (8) HTN (hypertension) Assessment/Plan nephrostomy in place. tolerated cystoscopy follow up with pathology, still not available. looks comfortable sliding scale monitor bp f/u urology recommendations prbc prn check H/H dvt prophylaxis. Subjective ROS Limited/Unobtainable: No Constitutional: Reports: no symptoms HEENT: Repors: no symptoms Respiratory: Reports: no symptoms Allergies: Coded Allergies: No Known Allergies (Unverified , 04/09/16) Objective Last 24 Hour Vital Signs Date Time Temp Pulse Resp B/P (MAP) Pulse Ox O2 Delivery O2 Flow Rate FiO2 11/29/18 09:00 Room Air 11/29/18 08:10 65 145/73 11/29/18 08:10 145/73 11/29/18 08:00 97.9 61 19 158/64 (95) 97 11/29/18 04:00 98.4 65 17 145/73 (97) 99 11/29/18 00:00 98.2 65 18 144/69 (94) 98 11/28/18 20:00 Room Air 11/28/18 20:00 98.5 65 18 149/68 (95) 100 11/28/18 17:10 155/71 11/28/18 16:00 99.0 71 19 155/71 (99) 100 Intake and Output 11/28/18 11/29/18 18:59 06:59 Intake Total 1605 ml 1305 ml Output Total 2025 ml 1850 ml Balance -420 ml -545 ml Intake Oral 780 ml 380 ml IV Total 825 ml 925 ml Output Urine Total 2025 ml 650 ml Other 1200 ml Objective nephrostomy still draining blood tinged urine HEENT: normocephalic, atraumatic Respiratory/Chest: chest wall non-tender, lungs clear, chest wall tender Abdomen: normal bowel sounds, no organomegaly Genitourinary: normal external genitalia Extremities: no clubbing Skin: no lesions 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: 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 normal Laboratory Tests 11/29/18 05:10: White Blood Count 8.5, Red Blood Count 3.21L, Hemoglobin 9.8L, Hematocrit 28.8L , Mean Corpuscular Volume 90, Mean Corpuscular Hemoglobin 30.4, Mean Corpuscular Hemoglobin Concent 33.9, Red Cell Distribution Width 11.0L, Platelet Count 145L, Mean Platelet Volume 7.1, Neutrophils (%) (Auto) 79.7H, Lymphocytes (%) (Auto) 12.0L, Monocytes (%) (Auto) 7.6, Eosinophils (%) (Auto) 0.0, Basophils (%) (Auto) 0.7, Sodium Level 140, Potassium Level 3.6, Chloride Level 105, Carbon Dioxide Level 29, Anion Gap 6, Blood Urea Nitrogen 14, Creatinine 1.1, Estimat Glomerular Filtration Rate , Glucose Level 141H, Calcium Level 9.0 Current Medications Medications (Trade) Dose Ordered Sig/Levi Route PRN Reason Start Time Stop Time Status Last Admin Dose Admin Acetaminophen (Tylenol) 650 mg Q4H PRN ORAL fever 11/22/18 13:30 12/22/18 13:29 Al Hydroxide/Mg Hydroxide (Mylanta II) 30 ml Q6H PRN ORAL dyspepsia 11/22/18 13:30 12/22/18 13:29 Amlodipine Besylate (Norvasc) 2.5 mg DAILY ORAL 11/29/18 09:00 12/29/18 08:59 11/29/18 08:10 Dextrose (Dextrose 50%) 25 ml Q30M PRN IV Hypoglycemia 11/22/18 13:30 12/22/18 13:23 11/22/18 17:21 Dextrose (Dextrose 50%) 50 ml Q30M PRN IV hypoglycemia 11/22/18 13:30 12/22/18 13:29 Dextrose/Sodium Chloride 1,000 ml @ 75 mls/hr [id number] IV 11/22/18 13:16 12/22/18 13:15 11/29/18 08:39 Diphenhydramine HCl (Benadryl) 25 mg Q6H PRN ORAL Itching/Pruritis 11/22/18 13:30 12/22/18 13:29 Finasteride (Proscar) 5 mg DAILY ORAL 11/22/18 19:45 12/22/18 19:44 11/29/18 08:11 Hydralazine HCl (Apresoline) 50 mg Q6H PRN ORAL SBP > 160 11/22/18 17:30 12/22/18 17:29 11/27/18 01:26 Insulin Aspart (NovoLOG) BEFORE MEALS AND HS SUBQ 11/22/18 16:30 12/22/18 16:29 11/29/18 05:37 Irbesartan (Avapro) 150 mg BID ORAL 11/25/18 09:00 12/25/18 08:59 11/29/18 08:10 Methimazole (Tapazole) 10 mg DAILY ORAL 11/29/18 09:00 12/24/18 08:59 11/29/18 08:10 Morphine Sulfate (Morphine Sulfate) 2 mg Q4H PRN IVP severe Pain (Pain Scale 7-10) 11/22/18 13:30 11/29/18 13:29 11/27/18 22:23 Nateglinide (Starlix) 120 mg TIAC ORAL 11/29/18 11:30 12/24/18 11:29 Nitroglycerin (Ntg) 0.4 mg Q5M X 3 DOSES PRN SL Prn Chest Pain 11/22/18 13:30 12/22/18 13:29 Ondansetron HCl (Zofran) 4 mg Q6H PRN IVP Nausea & Vomiting 11/22/18 13:30 12/22/18 13:29 Pantoprazole (Protonix) 40 mg EVERY 12 HOURS ORAL 11/24/18 21:00 12/24/18 20:59 11/29/18 08:10 Polyethylene Glycol (Miralax) 17 gm HSPRN PRN ORAL Constipation 11/22/18 13:30 12/22/18 13:29 Sucralfate (Carafate) 1 gm FOUR TIMES A DAY ORAL 11/24/18 21:00 12/24/18 20:59 11/29/18 08:10 Tamsulosin HCl (Flomax) 0.4 mg BEDTIME ORAL 11/22/18 21:00 12/22/18 20:59 11/28/18 20:26 Temazepam (Restoril) 15 mg HSPRN PRN ORAL Insomnia 11/22/18 13:30 11/29/18 13:29 11/29/18 01:07 Og Hinkle MD Nov 29, 2018 11:58
[2018-11-29 12:00] VITALS: BP 154/69
--- NOTE | 2018-11-29 13:52 | Infectious Diseases Prog Note ---
Assessment/Plan Assessment/Plan Assessment: Hematochezia -11/24 SP EGD/Colonoscopy: gastritis, hemorrhoids L hydronephrosis/L Hydroureter 2ry to extensive bladder tumor -11/25 SP Cystoscopy, urethral calibration, transurethral resection of extensive bladder tumor with fulguration, and right retrograde pyelogram. -Findings: The patient had what appeared to be a large bladder tumor that involved most of the left side of the bladder extending posteriorly and completely obliterating the left ureteral orifice. I was unable to place a stent on the left side. - -CT abd/p: Limited assessment of the GI tract, due to lack of enteric contrast administration. Moderate left hydronephrosis and hydroureter. Hydroureter extends to the bladder, where there is asymmetric posterolateral wall thickening raises concern for neoplasm. Further evaluation with cystoscopy should be considered. There is also generalized wall thickening, possibly on the basis of cystitis or chronic bladder outlet obstruction. No definite findings to suggest etiology of stated clinical history of GI bleed. Cholelithiasis. Basilar pulmonary atelectasis and equivocal slight interstitial congestion. L1 vertebral body compression fracture deformity, age indeterminate. Consider MRI for further evaluation if this is clinically relevant Afebrile NO leukocytosis -CXR: No acute process Pyuria Funguria -u/a wbc 10-15, nit +, leuk est +3; ucx <10 yeast Encephalopathy -Head CT: Chronic and age-related changes is noted. Negative for acute intracranial bleed or mass effect. 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 Will continue to follow along with you Subjective Allergies: Coded Allergies: No Known Allergies (Unverified , 04/09/16) Subjective afebrile no leukocytosis now off abx Objective Vital Signs Last 24 Hour Vital Signs Date Time Temp Pulse Resp B/P (MAP) Pulse Ox O2 Delivery O2 Flow Rate FiO2 11/29/18 12:00 98.2 72 20 154/69 (97) 99 11/29/18 09:00 Room Air 11/29/18 08:10 65 145/73 11/29/18 08:10 145/73 11/29/18 08:00 97.9 61 19 158/64 (95) 97 11/29/18 04:00 98.4 65 17 145/73 (97) 99 11/29/18 00:00 98.2 65 18 144/69 (94) 98 11/28/18 20:00 Room Air 11/28/18 20:00 98.5 65 18 149/68 (95) 100 11/28/18 17:10 155/71 11/28/18 16:00 99.0 71 19 155/71 (99) 100 Height (Feet): 6 Height (Inches): 6.00 Weight (Pounds): 182 Objective GENERAL: NAD HEAD AND NECK: NCAT, MMM, EOMI LUNGS: CTAB, No W ABDOMEN: Soft, nondistended, and nontender. Positive bowel sounds. Heart: RRR, S1, S2 Laboratory Tests Test 11/29/18 05:10 White Blood Count 8.5 K/UL (4.8-10.8) Red Blood Count 3.21 M/UL (4.70-6.10) L Hemoglobin 9.8 G/DL (14.2-18.0) L Hematocrit 28.8 % (42.0-52.0) L Mean Corpuscular Volume 90 FL (80-99) Mean Corpuscular Hemoglobin 30.4 PG (27.0-31.0) Mean Corpuscular Hemoglobin Concent 33.9 G/DL (32.0-36.0) Red Cell Distribution Width 11.0 % (11.6-14.8) L Platelet Count 145 K/UL (150-450) L Mean Platelet Volume 7.1 FL (6.5-10.1) Neutrophils (%) (Auto) 79.7 % (45.0-75.0) H Lymphocytes (%) (Auto) 12.0 % (20.0-45.0) L Monocytes (%) (Auto) 7.6 % (1.0-10.0) Eosinophils (%) (Auto) 0.0 % (0.0-3.0) Basophils (%) (Auto) 0.7 % (0.0-2.0) Sodium Level 140 MMOL/L (136-145) Potassium Level 3.6 MMOL/L (3.5-5.1) Chloride Level 105 MMOL/L (98-107) Carbon Dioxide Level 29 MMOL/L (21-32) Anion Gap 6 mmol/L (5-15) Blood Urea Nitrogen 14 mg/dL (7-18) Creatinine 1.1 MG/DL (0.55-1.30) Estimat Glomerular Filtration Rate mL/min (>60) Glucose Level 141 MG/DL (74-106) H Calcium Level 9.0 MG/DL (8.5-10.1) Current Medications Medications (Trade) Dose Ordered Sig/Levi Route PRN Reason Start Time Stop Time Status Last Admin Dose Admin Acetaminophen (Tylenol) 650 mg Q4H PRN ORAL fever 11/22/18 13:30 12/22/18 13:29 Al Hydroxide/Mg Hydroxide (Mylanta II) 30 ml Q6H PRN ORAL dyspepsia 11/22/18 13:30 12/22/18 13:29 Amlodipine Besylate (Norvasc) 2.5 mg DAILY ORAL 11/29/18 09:00 12/29/18 08:59 11/29/18 08:10 Dextrose (Dextrose 50%) 25 ml Q30M PRN IV Hypoglycemia 11/22/18 13:30 12/22/18 13:23 11/22/18 17:21 Dextrose (Dextrose 50%) 50 ml Q30M PRN IV hypoglycemia 11/22/18 13:30 12/22/18 13:29 Dextrose/Sodium Chloride 1,000 ml @ 75 mls/hr [id number] IV 11/22/18 13:16 12/22/18 13:15 11/29/18 08:39 Diphenhydramine HCl (Benadryl) 25 mg Q6H PRN ORAL Itching/Pruritis 11/22/18 13:30 12/22/18 13:29 Finasteride (Proscar) 5 mg DAILY ORAL 11/22/18 19:45 12/22/18 19:44 11/29/18 08:11 Hydralazine HCl (Apresoline) 50 mg Q6H PRN ORAL SBP > 160 11/22/18 17:30 12/22/18 17:29 11/27/18 01:26 Insulin Aspart (NovoLOG) BEFORE MEALS AND HS SUBQ 4/15/19 16:30 12/22/18 16:29 11/29/18 12:37 Irbesartan (Avapro) 150 mg BID ORAL 11/25/18 09:00 12/25/18 08:59 11/29/18 08:10 Methimazole (Tapazole) 10 mg DAILY ORAL 11/29/18 09:00 12/24/18 08:59 11/29/18 08:10 Nateglinide (Starlix) 120 mg TIAC ORAL 11/29/18 11:30 12/24/18 11:29 11/29/18 12:38 Nitroglycerin (Ntg) 0.4 mg Q5M X 3 DOSES PRN SL Prn Chest Pain 11/22/18 13:30 12/22/18 13:29 Ondansetron HCl (Zofran) 4 mg Q6H PRN IVP Nausea & Vomiting 11/22/18 13:30 12/22/18 13:29 Pantoprazole (Protonix) 40 mg EVERY 12 HOURS ORAL 11/24/18 21:00 12/24/18 20:59 11/29/18 08:10 Polyethylene Glycol (Miralax) 17 gm HSPRN PRN ORAL Constipation 11/22/18 13:30 12/22/18 13:29 Sucralfate (Carafate) 1 gm FOUR TIMES A DAY ORAL 11/24/18 21:00 12/24/18 20:59 11/29/18 12:39 Tamsulosin HCl (Flomax) 0.4 mg BEDTIME ORAL 11/22/18 21:00 12/22/18 20:59 11/28/18 20:26 Tawny Darby M.D. Nov 29, 2018 13:52
--- NOTE | 2018-11-29 15:13 | NUR ---
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 HEMATURIA VS: BP 158/64, P 72, T 98.4, RR 20, SpO2 99 RBC 3.21, Hgb 9.8, Hct 28.8 IS:STARLIX 120mG TAPAZOLE 10mg NORVASC 2.5mg AVAPRO 150mg PROTONIX 40mg SUCRALFATE 1gM PROSCAR 5mg FLOMAX 0.4mg D5/NS x1L IV MED/SURG STATUS
[2018-11-29 16:00] VITALS: BP 159/68
--- NOTE | 2018-11-29 18:39 | Internal Med Progress Note ---
Subjective Date of Service: Nov 29, 2018 Physician Name Peter,Jean-Claude Attending Physician Jaziel Lowe MD Current Medications Medications (Trade) Dose Ordered Sig/Levi Route PRN Reason Start Time Stop Time Status Last Admin Dose Admin Acetaminophen (Tylenol) 650 mg Q4H PRN ORAL fever 11/22/18 13:30 12/22/18 13:29 Al Hydroxide/Mg Hydroxide (Mylanta II) 30 ml Q6H PRN ORAL dyspepsia 11/22/18 13:30 12/22/18 13:29 Amlodipine Besylate (Norvasc) 2.5 mg DAILY ORAL 11/29/18 09:00 12/29/18 08:59 11/29/18 08:10 Dextrose (Dextrose 50%) 25 ml Q30M PRN IV Hypoglycemia 11/22/18 13:30 12/22/18 13:23 11/22/18 17:21 Dextrose (Dextrose 50%) 50 ml Q30M PRN IV hypoglycemia 11/22/18 13:30 12/22/18 13:29 Dextrose/Sodium Chloride 1,000 ml @ 75 mls/hr [id number] IV 11/22/18 13:16 12/22/18 13:15 11/29/18 08:39 Diphenhydramine HCl (Benadryl) 25 mg Q6H PRN ORAL Itching/Pruritis 11/22/18 13:30 12/22/18 13:29 Finasteride (Proscar) 5 mg DAILY ORAL 11/22/18 19:45 12/22/18 19:44 11/29/18 08:11 Hydralazine HCl (Apresoline) 50 mg Q6H PRN ORAL SBP > 160 11/22/18 17:30 12/22/18 17:29 11/27/18 01:26 Insulin Aspart (NovoLOG) BEFORE MEALS AND HS SUBQ 11/22/18 16:30 12/22/18 16:29 11/29/18 18:24 Irbesartan (Avapro) 150 mg BID ORAL 11/25/18 09:00 12/25/18 08:59 11/29/18 18:23 Methimazole (Tapazole) 10 mg DAILY ORAL 11/29/18 09:00 12/24/18 08:59 11/29/18 08:10 Nateglinide (Starlix) 120 mg TIAC ORAL 11/29/18 11:30 12/24/18 11:29 11/29/18 18:24 Nitroglycerin (Ntg) 0.4 mg Q5M X 3 DOSES PRN SL Prn Chest Pain 11/22/18 13:30 12/22/18 13:29 Ondansetron HCl (Zofran) 4 mg Q6H PRN IVP Nausea & Vomiting 11/22/18 13:30 12/22/18 13:29 Pantoprazole (Protonix) 40 mg EVERY 12 HOURS ORAL 11/24/18 21:00 12/24/18 20:59 11/29/18 08:10 Polyethylene Glycol (Miralax) 17 gm HSPRN PRN ORAL Constipation 11/22/18 13:30 12/22/18 13:29 Sucralfate (Carafate) 1 gm FOUR TIMES A DAY ORAL 11/24/18 21:00 12/24/18 20:59 11/29/18 18:23 Tamsulosin HCl (Flomax) 0.4 mg BEDTIME ORAL 11/22/18 21:00 12/22/18 20:59 11/28/18 20:26 Allergies: Coded Allergies: No Known Allergies (Unverified , 04/09/16) ROS Limited/Unobtainable: Yes Subjective 83 YO M admitted with gastrointestinal hemorrhage. S/P endoscopy and colonoscopy 11/24/18. S/P transurethral bladder tumor resection 11/24/18. Cover for Int Uriel-Dr Lowe Objective Last Vital Signs Date Time Temp Pulse Resp B/P (MAP) Pulse Ox O2 Delivery O2 Flow Rate FiO2 11/29/18 18:23 159/68 11/29/18 16:00 98.0 67 18 99 11/29/18 09:00 Room Air 11/26/18 10:12 4.0 Laboratory Tests Test 11/29/18 05:10 White Blood Count 8.5 K/UL (4.8-10.8) Red Blood Count 3.21 M/UL (4.70-6.10) L Hemoglobin 9.8 G/DL (14.2-18.0) L Hematocrit 28.8 % (42.0-52.0) L Mean Corpuscular Volume 90 FL (80-99) Mean Corpuscular Hemoglobin 30.4 PG (27.0-31.0) Mean Corpuscular Hemoglobin Concent 33.9 G/DL (32.0-36.0) Red Cell Distribution Width 11.0 % (11.6-14.8) L Platelet Count 145 K/UL (150-450) L Mean Platelet Volume 7.1 FL (6.5-10.1) Neutrophils (%) (Auto) 79.7 % (45.0-75.0) H Lymphocytes (%) (Auto) 12.0 % (20.0-45.0) L Monocytes (%) (Auto) 7.6 % (1.0-10.0) Eosinophils (%) (Auto) 0.0 % (0.0-3.0) Basophils (%) (Auto) 0.7 % (0.0-2.0) Sodium Level 140 MMOL/L (136-145) Potassium Level 3.6 MMOL/L (3.5-5.1) Chloride Level 105 MMOL/L (98-107) Carbon Dioxide Level 29 MMOL/L (21-32) Anion Gap 6 mmol/L (5-15) Blood Urea Nitrogen 14 mg/dL (7-18) Creatinine 1.1 MG/DL (0.55-1.30) Estimat Glomerular Filtration Rate mL/min (>60) Glucose Level 141 MG/DL (74-106) H Calcium Level 9.0 MG/DL (8.5-10.1) Intake and Output 11/28/18 11/29/18 19:00 07:00 Intake Total 1680 ml 1230 ml Output Total 2025 ml 1850 ml Balance -345 ml -620 ml Intake Oral 780 ml 380 ml IV Total 900 ml 850 ml Output Urine Total 2025 ml 650 ml Other 1200 ml Objective PHYSICAL EXAMINATION: GENERAL: The patient is awake, alert, responsive, very pleasant, but forgetful. HEAD AND NECK: Pupils are reactive to light. Extraocular movements intact. Neck was supple. No JVD. LUNGS: Good air entry. No wheezing or rales. Left side of the chest has a pacemaker. ABDOMEN: Soft, nondistended, and nontender. Positive bowel sounds. EXTREMITIES: No cyanosis, clubbing, or edema. 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 Motor is 5/5 in all extremities. Gait was not assessed due to the patient's status. RECTAL/GENITOURINARY: Refused and deferred. Assessment/Plan Assessment/Plan ASSESSMENT: 1. Gastrointestinal bleed. 2. Anemia possible due to acute blood loss. 3. Hypokalemia. 4. Acute urinary tract infection. 5. Moderate left hydronephrosis with hydroureter. 6. Cardiac arrhythmia status post pacemaker. 7. Diabetes type 2. 8. Hypertension. 9. Gastritis 10. hemorrhoids 11. hematuria-Bladder cancer PLAN: 1. Admit the patient to medical floor. 2. We will follow up with the laboratory. 3. Clear liquid diet. 4. Gastrointestinal consultation with Dr. Hernandez. 5. Code status is Full Code at this time. 6. See Urology consultation, Dr. Allen S/P transurethral resection bladder tumor High grade urothelial carcinoma 7. S/P Esophagogastroduodenoscopy and colonoscopy 11/24/18. 8. We will follow up with urine culture and Cardiology consultation with Dr. Nj Valenzuela. 9. Protonix 40 mg BID and carafate 1 gm QID 10 Await Oncology consult Jean-Claude Peter MD Nov 29, 2018 18:39
--- NOTE | 2018-11-29 19:18 | NUR ---
HAND-OFF: Report given to DONELL Page.
[2018-11-29 20:00] VITALS: BP 150/61
--- NOTE | 2018-11-29 20:05 | NUR ---
NURSE NOTES: Received patient comfortably resting in bed without complaints.
[2018-11-29] MEDS: Tamsulosin 0.4mg cap ORAL SCH (20:44)
[2018-11-30] VITALS (7 sets, daily range): BP systolic 119–151; BP diastolic 55–71
--- NOTE | 2018-11-30 00:37 | Neurology Progress Note ---
Interim History Interim History ROS Limited/Unobtainable: Yes Events: No new events Interim History This visit was performed on 11/29/[address] Jaime Flaherty. Review of Systems All Systems: reviewed and negative except above Objective Physical Exam Last Vital Signs Date Time Temp Pulse Resp B/P (MAP) Pulse Ox O2 Delivery O2 Flow Rate FiO2 11/29/18 20:10 Room Air 11/29/18 20:00 98.9 67 19 150/61 (90) 97 11/26/18 10:12 4.0 Laboratory Tests Test 11/29/18 05:10 White Blood Count 8.5 K/UL (4.8-10.8) Red Blood Count 3.21 M/UL (4.70-6.10) L Hemoglobin 9.8 G/DL (14.2-18.0) L Hematocrit 28.8 % (42.0-52.0) L Mean Corpuscular Volume 90 FL (80-99) Mean Corpuscular Hemoglobin 30.4 PG (27.0-31.0) Mean Corpuscular Hemoglobin Concent 33.9 G/DL (32.0-36.0) Red Cell Distribution Width 11.0 % (11.6-14.8) L Platelet Count 145 K/UL (150-450) L Mean Platelet Volume 7.1 FL (6.5-10.1) Neutrophils (%) (Auto) 79.7 % (45.0-75.0) H Lymphocytes (%) (Auto) 12.0 % (20.0-45.0) L Monocytes (%) (Auto) 7.6 % (1.0-10.0) Eosinophils (%) (Auto) 0.0 % (0.0-3.0) Basophils (%) (Auto) 0.7 % (0.0-2.0) Sodium Level 140 MMOL/L (136-145) Potassium Level 3.6 MMOL/L (3.5-5.1) Chloride Level 105 MMOL/L (98-107) Carbon Dioxide Level 29 MMOL/L (21-32) Anion Gap 6 mmol/L (5-15) Blood Urea Nitrogen 14 mg/dL (7-18) Creatinine 1.1 MG/DL (0.55-1.30) Estimat Glomerular Filtration Rate mL/min (>60) Glucose Level 141 MG/DL (74-106) H Calcium Level 9.0 MG/DL (8.5-10.1) Impression/Recommendations Problems: (1) Altered level of consciousness Assessment & Plan: CT 11/22/18: Chronic and age-related changes is noted. 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 UNABLE TO PERFORM SECONDARY TO PRESENCE OF PACEMAKER Continue Q4 hour Neuro obs Na 135-145 Maintain normothermia Maintain normoglycemia Status: stable Recommendations UNABLE TO PERFORM SECONDARY TO PRESENCE OF PACEMAKER Continue Q4 hour Neuro obs Na 135-145Maintain normothermiaMaintain normoglycemiaAvoid use of benzodiazapenes, anticholinergics, and opioid narcotics. Bailey Appiah N.P. Nov 30, 2018 00:37
--- NOTE | 2018-11-30 00:37 | Neurology Progress Note ---
Interim History Interim History ROS Limited/Unobtainable: Yes Events: This visit was performed on November 28, 2018 Interim History Reporting some nausea today. Review of Systems All Systems: reviewed and negative except above Objective Physical Exam Last Vital Signs Date Time Temp Pulse Resp B/P (MAP) Pulse Ox O2 Delivery O2 Flow Rate FiO2 11/29/18 20:10 Room Air 11/29/18 20:00 98.9 67 19 150/61 (90) 97 11/26/18 10:12 4.0 Laboratory Tests Test 11/29/18 05:10 White Blood Count 8.5 K/UL (4.8-10.8) Red Blood Count 3.21 M/UL (4.70-6.10) L Hemoglobin 9.8 G/DL (14.2-18.0) L Hematocrit 28.8 % (42.0-52.0) L Mean Corpuscular Volume 90 FL (80-99) Mean Corpuscular Hemoglobin 30.4 PG (27.0-31.0) Mean Corpuscular Hemoglobin Concent 33.9 G/DL (32.0-36.0) Red Cell Distribution Width 11.0 % (11.6-14.8) L Platelet Count 145 K/UL (150-450) L Mean Platelet Volume 7.1 FL (6.5-10.1) Neutrophils (%) (Auto) 79.7 % (45.0-75.0) H Lymphocytes (%) (Auto) 12.0 % (20.0-45.0) L Monocytes (%) (Auto) 7.6 % (1.0-10.0) Eosinophils (%) (Auto) 0.0 % (0.0-3.0) Basophils (%) (Auto) 0.7 % (0.0-2.0) Sodium Level 140 MMOL/L (136-145) Potassium Level 3.6 MMOL/L (3.5-5.1) Chloride Level 105 MMOL/L (98-107) Carbon Dioxide Level 29 MMOL/L (21-32) Anion Gap 6 mmol/L (5-15) Blood Urea Nitrogen 14 mg/dL (7-18) Creatinine 1.1 MG/DL (0.55-1.30) Estimat Glomerular Filtration Rate mL/min (>60) Glucose Level 141 MG/DL (74-106) H Calcium Level 9.0 MG/DL (8.5-10.1) Impression/Recommendations Problems: (1) Altered level of consciousness Assessment & Plan: CT 11/22/18: Chronic and age-related changes is noted. 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 - Unable to obtain secondary to pacemaker Status: Bailey Nguyen N.P. Nov 30, 2018 00:37
--- NOTE | 2018-11-30 00:39 | Neurology Progress Note ---
Interim History Interim History ROS Limited/Unobtainable: Yes Events: Stable neuro exam Interim History This visit was performed under the supervision of Dr. Jaime Flaherty on November 30, 2018 Review of Systems All Systems: reviewed and negative except above Objective Physical Exam Last Vital Signs Date Time Temp Pulse Resp B/P (MAP) Pulse Ox O2 Delivery O2 Flow Rate FiO2 11/29/18 20:10 Room Air 11/29/18 20:00 98.9 67 19 150/61 (90) 97 11/26/18 10:12 4.0 Laboratory Tests Test 11/29/18 05:10 White Blood Count 8.5 K/UL (4.8-10.8) Red Blood Count 3.21 M/UL (4.70-6.10) L Hemoglobin 9.8 G/DL (14.2-18.0) L Hematocrit 28.8 % (42.0-52.0) L Mean Corpuscular Volume 90 FL (80-99) Mean Corpuscular Hemoglobin 30.4 PG (27.0-31.0) Mean Corpuscular Hemoglobin Concent 33.9 G/DL (32.0-36.0) Red Cell Distribution Width 11.0 % (11.6-14.8) L Platelet Count 145 K/UL (150-450) L Mean Platelet Volume 7.1 FL (6.5-10.1) Neutrophils (%) (Auto) 79.7 % (45.0-75.0) H Lymphocytes (%) (Auto) 12.0 % (20.0-45.0) L Monocytes (%) (Auto) 7.6 % (1.0-10.0) Eosinophils (%) (Auto) 0.0 % (0.0-3.0) Basophils (%) (Auto) 0.7 % (0.0-2.0) Sodium Level 140 MMOL/L (136-145) Potassium Level 3.6 MMOL/L (3.5-5.1) Chloride Level 105 MMOL/L (98-107) Carbon Dioxide Level 29 MMOL/L (21-32) Anion Gap 6 mmol/L (5-15) Blood Urea Nitrogen 14 mg/dL (7-18) Creatinine 1.1 MG/DL (0.55-1.30) Estimat Glomerular Filtration Rate mL/min (>60) Glucose Level 141 MG/DL (74-106) H Calcium Level 9.0 MG/DL (8.5-10.1) Impression/Recommendations Problems: (1) Altered level of consciousness Assessment & Plan: CT 11/22/18: Chronic and age-related changes is noted. 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 Status: stable Recommendations UNABLE TO PERFORM SECONDARY TO PRESENCE OF PACEMAKER Continue Q4 hour Neuro obs Na 135-145 Maintain normothermia Correct / Replete lytes Maintain normoglycemia Avoid use of benzodiazapenes, anticholinergics, and opioid narcotics. Optimize diet Bailey Appiah N.P. Nov 30, 2018 00:39
[2018-11-30] MEDS: NovoLOG Insulin Flexpen SUBQ SCH ×4 (05:56→20:55)
[2018-11-30 06:31] LABS: BASOPHILS % (AUTO) 0.8 % (0.0-2.0); EOSINOPHILS % (AUTO) 0.1 % (0.0-3.0); HEMATOCRIT 28.9 % (42.0-52.0); HEMOGLOBIN 9.8 G/DL (14.2-18.0); LYMPHOCYTES % (AUTO) 16.3 % (20.0-45.0); MEAN CORPUSCULAR VOLUME 90 FL (80-99); MONOCYTES % (AUTO) 7.8 % (1.0-10.0); NEUTROPHILS % (AUTO) 75.1 % (45.0-75.0); PLATELET COUNT 155 K/UL (150-450); RED BLOOD COUNT 3.22 M/UL (4.70-6.10); WHITE BLOOD COUNT 8.2 K/UL (4.8-10.8)
--- NOTE | 2018-11-30 06:42 | General Progress Note ---
Assessment/Plan Problem List: (1) Acute metabolic encephalopathy ICD Codes: G93.41 - Metabolic encephalopathy SNOMED: 45391820, 836317037 (2) Hyperthyroidism ICD Codes: E05.90 - Thyrotoxicosis, unspecified without thyrotoxic crisis or storm SNOMED: 03653824 (3) Diabetes mellitus ICD Codes: E11.9 - Type 2 diabetes mellitus without complications SNOMED: 26832276 (4) Bladder neoplasm ICD Codes: D49.4 - Neoplasm of unspecified behavior of bladder SNOMED: 855760872 (5) Hydronephrosis ICD Codes: N13.30 - Unspecified hydronephrosis SNOMED: 78523499 Assessment: thyroid US revealed normal anatomy without nodules hyperthyroidism is most likely due to Graves' and less likely due to Subacute Thyroiditis continue Tapazole 10 mg daily Tg Ab negative follow TSI, ATPO - pending continue Starlix 120 mg ac tid continue NISS ac / hs Subjective Allergies: Coded Allergies: No Known Allergies (Unverified , 04/09/16) All Systems: reviewed and negative except above Subjective events noted Item Value Date Time Bedside Blood Glucose 114 mg/dl 11/30/18 0614 Bedside Blood Glucose 128 mg/dl H 11/29/18 2100 Bedside Blood Glucose 152 mg/dl H 11/29/18 1824 Bedside Blood Glucose 151 mg/dl H 11/29/18 1237 Bedside Blood Glucose 139 mg/dl H 11/29/18 0608 Objective Last 24 Hour Vital Signs Date Time Temp Pulse Resp B/P (MAP) Pulse Ox O2 Delivery O2 Flow Rate FiO2 11/30/18 04:00 98.3 70 17 151/67 (95) 97 11/30/18 00:00 98.1 62 17 140/60 (86) 98 11/29/18 20:10 Room Air 11/29/18 20:00 98.9 67 19 150/61 (90) 97 11/29/18 18:23 159/68 11/29/18 16:00 98.0 67 18 159/68 (98) 99 11/29/18 12:00 98.2 72 20 154/69 (97) 99 11/29/18 09:00 Room Air 11/29/18 08:10 65 145/73 11/29/18 08:10 145/73 11/29/18 08:00 97.9 61 19 158/64 (95) 97 Intake and Output 11/29/18 11/30/18 19:00 07:00 Intake Total 600 ml 900 ml Output Total 3200 ml Balance -2600 ml 900 ml Intake Oral 600 ml IV Total 0 ml 900 ml Output Urine Total 1325 ml Other 1875 ml Laboratory Tests 11/30/18 04:50: White Blood Count [Pending], Red Blood Count [Pending], Hemoglobin [Pending], Hematocrit [Pending], Mean Corpuscular Volume [Pending], Mean Corpuscular Hemoglobin [Pending], Mean Corpuscular Hemoglobin Concent [Pending], Red Cell Distribution Width [Pending], Platelet Count [Pending], Mean Platelet Volume [ Pending], Neutrophils (%) (Auto) [Pending], Lymphocytes (%) (Auto) [Pending], Monocytes (%) (Auto) [Pending], Eosinophils (%) (Auto) [Pending], Basophils (%) (Auto) [Pending], Prothrombin Time [Pending], Prothromb Time International Ratio [Pending], Activated Partial Thromboplast Time [Pending], Sodium Level [ Pending], Potassium Level [Pending], Chloride Level [Pending], Carbon Dioxide Level [Pending], Blood Urea Nitrogen [Pending], Creatinine [Pending], Estimat Glomerular Filtration Rate [Pending], Glucose Level [Pending], Calcium Level [ Pending], Phosphorus Level [Pending], Magnesium Level [Pending], Total Bilirubin [Pending], Aspartate Amino Transf (AST/SGOT) [Pending], Alanine Aminotransferase (ALT/SGPT) [Pending], Alkaline Phosphatase [Pending], Total Protein [Pending], Albumin [Pending], Globulin [Pending] Height (Feet): 6 Height (Inches): 6.00 Weight (Pounds): 182 General Appearance: no apparent distress Neck: normal alignment Cardiovascular: normal rate Respiratory/Chest: lungs clear Abdomen: normal bowel sounds Pelvis: normal external exam Objective Current Medications Medications (Trade) Dose Ordered Sig/Levi Route PRN Reason Start Time Stop Time Status Last Admin Dose Admin Acetaminophen (Tylenol) 650 mg Q4H PRN ORAL fever 11/22/18 13:30 12/22/18 13:29 Al Hydroxide/Mg Hydroxide (Mylanta II) 30 ml Q6H PRN ORAL dyspepsia 11/22/18 13:30 12/22/18 13:29 Amlodipine Besylate (Norvasc) 2.5 mg DAILY ORAL 11/29/18 09:00 12/29/18 08:59 11/29/18 08:10 Dextrose (Dextrose 50%) 25 ml Q30M PRN IV Hypoglycemia 11/22/18 13:30 12/22/18 13:23 11/22/18 17:21 Dextrose (Dextrose 50%) 50 ml Q30M PRN IV hypoglycemia 11/22/18 13:30 12/22/18 13:29 Dextrose/Sodium Chloride 1,000 ml @ 75 mls/hr [id number] IV 11/22/18 13:16 12/22/18 13:15 11/29/18 08:39 Diphenhydramine HCl (Benadryl) 25 mg Q6H PRN ORAL Itching/Pruritis 11/22/18 13:30 12/22/18 13:29 Finasteride (Proscar) 5 mg DAILY ORAL 11/22/18 19:45 12/22/18 19:44 11/29/18 08:11 Hydralazine HCl (Apresoline) 50 mg Q6H PRN ORAL SBP > 160 11/22/18 17:30 12/22/18 17:29 11/27/18 01:26 Insulin Aspart (NovoLOG) BEFORE MEALS AND HS SUBQ 11/22/18 16:30 12/22/18 16:29 11/30/18 05:56 Irbesartan (Avapro) 150 mg BID ORAL 11/25/18 09:00 12/25/18 08:59 11/29/18 18:23 Methimazole (Tapazole) 10 mg DAILY ORAL 11/29/18 09:00 12/24/18 08:59 11/29/18 08:10 Nateglinide (Starlix) 120 mg TIAC ORAL 11/29/18 11:30 12/24/18 11:29 11/30/18 05:55 Nitroglycerin (Ntg) 0.4 mg Q5M X 3 DOSES PRN SL Prn Chest Pain 11/22/18 13:30 12/22/18 13:29 Ondansetron HCl (Zofran) 4 mg Q6H PRN IVP Nausea & Vomiting 11/22/18 13:30 12/22/18 13:29 Pantoprazole (Protonix) 40 mg EVERY 12 HOURS ORAL 11/24/18 21:00 12/24/18 20:59 11/29/18 20:44 Polyethylene Glycol (Miralax) 17 gm HSPRN PRN ORAL Constipation 11/22/18 13:30 12/22/18 13:29 Sucralfate (Carafate) 1 gm FOUR TIMES A DAY ORAL 11/24/18 21:00 12/24/18 20:59 11/29/18 20:44 Tamsulosin HCl (Flomax) 0.4 mg BEDTIME ORAL 11/22/18 21:00 12/22/18 20:59 11/29/18 20:44 Temazepam (Restoril) 15 mg HSPRN PRN ORAL Insomnia 11/29/18 21:15 12/06/18 21:14 Kashif Adorno MD Nov 30, 2018 06:42
[2018-11-30 07:06] LABS: ALANINE AMINOTRANSFERASE 19 U/L (12-78); ALBUMIN 2.4 G/DL (3.4-5.0); ALBUMIN/GLOBULIN RATIO 0.6 (1.0-2.7); ALKALINE PHOSPHATASE 85 U/L (46-116); ANION GAP 7 mmol/L (5-15); ASPARTATE AMINO TRANSFERASE 14 U/L (15-37); BILIRUBIN,TOTAL 0.5 MG/DL (0.2-1.0); BLOOD UREA NITROGEN 14 mg/dL (7-18); CALCIUM 8.9 MG/DL (8.5-10.1); CARBON DIOXIDE 29 MMOL/L (21-32); CHLORIDE 105 MMOL/L (98-107); POTASSIUM 3.7 MMOL/L (3.5-5.1); SODIUM 141 MMOL/L (136-145)
--- NOTE | 2018-11-30 07:09 | NUR ---
HAND-OFF: Report given to Mayra Nicholson RN.
[2018-11-30 07:25] LABS: PHOSPHORUS 3.2 MG/DL (2.5-4.9)
--- NOTE | 2018-11-30 07:37 | NUR ---
NURSE NOTES: Received patient awake,alert x3 follows simple command,eating breakfast at this time ,denies pain , no sign of distress,left nephrostomy and indwelling hernandez catheter patent draining well still with bloody tinged urine, kept clean dry and comfortatble mAGG
[2018-11-30] MEDS: Irbesartan 150mg tablet ORAL SCH ×2 (08:17→17:02)
[2018-11-30] MEDS: Sucralfate 1gm tab ORAL SCH ×4 (08:18→20:55)
[2018-11-30] MEDS: D5 1/2NS 1,000 ML IV SCH ×2 (08:18→21:26)
--- NOTE | 2018-11-30 08:46 | Urology Progress Note ---
Assessment/Plan Assessment: 1. Left hydronephrosis. 2. Hematuria. 3. Pyuria. 4. Proteinuria. 5. Benign prostatic hypertrophy. 6. Incontinence. 7. Neurogenic bladder. 8. Cystitis. 9. Bladder cancer. 10. POD # 6, cysto/TURBT Plan: monitor clinically keep hernandez indwelling for now, voiding trial later hand irrigated and do PRN left hydro secondary to bladder tumor left nephrostomy placed 11/[address] antegrade ureteral stent, reattempt later? flomax and proscar s/p diflucan med onc eval Subjective Allergies: Coded Allergies: No Known Allergies (Unverified , 04/09/16) Subjective all noted, feels fair Objective Last 24 Hour Vital Signs Date Time Temp Pulse Resp B/P (MAP) Pulse Ox O2 Delivery O2 Flow Rate FiO2 11/30/18 08:17 65 145/62 11/30/18 08:17 145/62 11/30/18 08:00 98.2 65 16 145/62 (89) 98 11/30/18 04:00 98.3 70 17 151/67 (95) 97 11/30/18 00:00 98.1 62 17 140/60 (86) 98 11/29/18 20:10 Room Air 11/29/18 20:00 98.9 67 19 150/61 (90) 97 11/29/18 18:23 159/68 11/29/18 16:00 98.0 67 18 159/68 (98) 99 11/29/18 12:00 98.2 72 20 154/69 (97) 99 11/29/18 09:00 Room Air Intake and Output 11/29/18 11/30/18 19:00 07:00 Intake Total 600 ml 1335 ml Output Total 3200 ml 1500 ml Balance -2600 ml -165 ml Intake Oral 600 ml 360 ml IV Total 0 ml 975 ml Output Urine Total 1325 ml 500 ml Other 1875 ml 1000 ml Microbiology Date/Time Source Procedure Growth Status 11/22/18 12:20 Nasal Nares MRSA Culture - Final NO METHICILLIN RESISTANT STAPH AUREUS... Complete 11/22/18 11:15 Urine,Clean Catch Urine Culture - Final YEAST Complete 11/22/18 12:20 Rectal Mucosa VRE Culture - Final NO VANCOMYCIN RESISTANT ENTEROCOCCUS ... Complete 4/15/19 12:20 Rectal Mucosa - Final NO CARBAPENEM-RESISTANT ENTEROBACTERI... Complete Current Medications Medications (Trade) Dose Ordered Sig/Levi Route PRN Reason Start Time Stop Time Status Last Admin Dose Admin Acetaminophen (Tylenol) 650 mg Q4H PRN ORAL fever 11/22/18 13:30 12/22/18 13:29 Al Hydroxide/Mg Hydroxide (Mylanta II) 30 ml Q6H PRN ORAL dyspepsia 11/22/18 13:30 12/22/18 13:29 Amlodipine Besylate (Norvasc) 2.5 mg DAILY ORAL 11/29/18 09:00 12/29/18 08:59 11/30/18 08:17 Dextrose (Dextrose 50%) 25 ml Q30M PRN IV Hypoglycemia 11/22/18 13:30 12/22/18 13:23 11/22/18 17:21 Dextrose (Dextrose 50%) 50 ml Q30M PRN IV hypoglycemia 11/22/18 13:30 12/22/18 13:29 Dextrose/Sodium Chloride 1,000 ml @ 75 mls/hr [id number] IV 11/22/18 13:16 12/22/18 13:15 11/30/18 08:18 Diphenhydramine HCl (Benadryl) 25 mg Q6H PRN ORAL Itching/Pruritis 11/22/18 13:30 12/22/18 13:29 Finasteride (Proscar) 5 mg DAILY ORAL 11/22/18 19:45 12/22/18 19:44 11/30/18 08:17 Hydralazine HCl (Apresoline) 50 mg Q6H PRN ORAL SBP > 160 11/22/18 17:30 12/22/18 17:29 11/27/18 01:26 Insulin Aspart (NovoLOG) BEFORE MEALS AND HS SUBQ 11/22/18 16:30 12/22/18 16:29 11/30/18 05:56 Irbesartan (Avapro) 150 mg BID ORAL 11/25/18 09:00 12/25/18 08:59 11/30/18 08:17 Methimazole (Tapazole) 10 mg DAILY ORAL 11/29/18 09:00 12/24/18 08:59 11/30/18 08:18 Nateglinide (Starlix) 120 mg TIAC ORAL 11/29/18 11:30 12/24/18 11:29 11/30/18 05:55 Nitroglycerin (Ntg) 0.4 mg Q5M X 3 DOSES PRN SL Prn Chest Pain 11/22/18 13:30 12/22/18 13:29 Ondansetron HCl (Zofran) 4 mg Q6H PRN IVP Nausea & Vomiting 11/22/18 13:30 12/22/18 13:29 Pantoprazole (Protonix) 40 mg EVERY 12 HOURS ORAL 11/24/18 21:00 12/24/18 20:59 11/30/18 08:17 Polyethylene Glycol (Miralax) 17 gm HSPRN PRN ORAL Constipation 11/22/18 13:30 12/22/18 13:29 Sucralfate (Carafate) 1 gm FOUR TIMES A DAY ORAL 11/24/18 21:00 12/24/18 20:59 11/30/18 08:18 Tamsulosin HCl (Flomax) 0.4 mg BEDTIME ORAL 11/22/18 21:00 12/22/18 20:59 11/29/18 20:44 Temazepam (Restoril) 15 mg HSPRN PRN ORAL Insomnia 11/29/18 21:15 12/06/18 21:14 Laboratory Tests 11/30/18 04:50: White Blood Count 8.2, Red Blood Count 3.22L, Hemoglobin 9.8L, Hematocrit 28.9L , Mean Corpuscular Volume 90, Mean Corpuscular Hemoglobin 30.5, Mean Corpuscular Hemoglobin Concent 34.0, Red Cell Distribution Width 11.0L, Platelet Count 155, Mean Platelet Volume 6.5, Neutrophils (%) (Auto) 75.1H, Lymphocytes (%) (Auto) 16.3L, Monocytes (%) (Auto) 7.8, Eosinophils (%) (Auto) 0.1, Basophils (%) (Auto) 0.8, Prothrombin Time 10.6, Prothromb Time International Ratio 1.0, Activated Partial Thromboplast Time 33, Sodium Level 141, Potassium Level 3.7, Chloride Level 105, Carbon Dioxide Level 29, Anion Gap 7, Blood Urea Nitrogen 14, Creatinine 1.0, Estimat Glomerular Filtration Rate , Glucose Level 103, Calcium Level 8.9, Phosphorus Level 3.2, Magnesium Level 1.4L, Total Bilirubin 0.5, Aspartate Amino Transf (AST/SGOT) 14L, Alanine Aminotransferase (ALT/SGPT) 19, Alkaline Phosphatase 85, Total Protein 6.1L, Albumin 2.4L, Globulin 3.7, Albumin/Globulin Ratio 0.6L Height (Feet): 6 Height (Inches): 6.00 Weight (Pounds): 182 Objective exam stable hernandez cath, urine clearing, wes left nephrostomy blood-tinged final path noted Macho Allen MD Nov 30, 2018 08:46
--- NOTE | 2018-11-30 10:39 | GI Progress Note ---
Assessment/Plan Problems: (1) Lower GI bleed ICD Codes: K92.2 - Gastrointestinal hemorrhage, unspecified SNOMED: 77265203 (2) Anemia ICD Codes: D64.9 - Anemia, unspecified SNOMED: 001333152 (3) Bleeding hemorrhoid ICD Codes: K64.9 - Unspecified hemorrhoids SNOMED: 34208747 (4) Alzheimer's dementia ICD Codes: G30.9 - Alzheimer's disease, unspecified; F02.80 - Dementia in other diseases classified elsewhere without behavioral disturbance SNOMED: 11123211 (5) Diabetes mellitus ICD Codes: E11.9 - Type 2 diabetes mellitus without complications SNOMED: 57160872 Status: unchanged Status Narrative Discussed with Dr. Hernandez. Assessment/Plan SUMMARY OF FINDINGS: 1. Gastritis and possibly gastric ulceration, status post biopsy. 2. One colonic polyp removed, see above for details. 3. Internal hemorrhoids. Occult blood stool negative RECOMMENDATIONS: Follow up pathology. >> H. pylori negative Resume diet. Follow with Urology given diagnosis of bladder cancer. monitor H&H, prn transfusions bowel regime ppi fu labs The patient was seen and examined at bedside and all new and available data was reviewed in the patients chart. I agree with the above findings, impression and plan. (Patient seen earlier today. Signature stamp does not reflect patient encounter time.). - Prince Hernandez MD Subjective Subjective Limited Objective Last 24 Hour Vital Signs Date Time Temp Pulse Resp B/P (MAP) Pulse Ox O2 Delivery O2 Flow Rate FiO2 11/30/18 08:17 65 145/62 11/30/18 08:17 145/62 11/30/18 08:00 Room Air 11/30/18 08:00 98.2 65 16 145/62 (89) 98 11/30/18 04:00 98.3 70 17 151/67 (95) 97 11/30/18 00:00 98.1 62 17 140/60 (86) 98 11/29/18 20:10 Room Air 11/29/18 20:00 98.9 67 19 150/61 (90) 97 11/29/18 18:23 159/68 11/29/18 16:00 98.0 67 18 159/68 (98) 99 11/29/18 12:00 98.2 72 20 154/69 (97) 99 Intake and Output 11/29/18 11/30/18 18:59 06:59 Intake Total 600 ml 1260 ml Output Total 3200 ml 1500 ml Balance -2600 ml -240 ml Intake Oral 600 ml 360 ml IV Total 900 ml Output Urine Total 1325 ml 500 ml Other 1875 ml 1000 ml Laboratory Tests Test 11/30/18 04:50 White Blood Count 8.2 K/UL (4.8-10.8) Red Blood Count 3.22 M/UL (4.70-6.10) L Hemoglobin 9.8 G/DL (14.2-18.0) L Hematocrit 28.9 % (42.0-52.0) L Mean Corpuscular Volume 90 FL (80-99) Mean Corpuscular Hemoglobin 30.5 PG (27.0-31.0) Mean Corpuscular Hemoglobin Concent 34.0 G/DL (32.0-36.0) Red Cell Distribution Width 11.0 % (11.6-14.8) L Platelet Count 155 K/UL (150-450) Mean Platelet Volume 6.5 FL (6.5-10.1) Neutrophils (%) (Auto) 75.1 % (45.0-75.0) H Lymphocytes (%) (Auto) 16.3 % (20.0-45.0) L Monocytes (%) (Auto) 7.8 % (1.0-10.0) Eosinophils (%) (Auto) 0.1 % (0.0-3.0) Basophils (%) (Auto) 0.8 % (0.0-2.0) Prothrombin Time 10.6 SEC (9.30-11.50) Prothromb Time International Ratio 1.0 (0.9-1.1) Activated Partial Thromboplast Time 33 SEC (23-33) Sodium Level 141 MMOL/L (136-145) Potassium Level 3.7 MMOL/L (3.5-5.1) Chloride Level 105 MMOL/L (98-107) Carbon Dioxide Level 29 MMOL/L (21-32) Anion Gap 7 mmol/L (5-15) Blood Urea Nitrogen 14 mg/dL (7-18) Creatinine 1.0 MG/DL (0.55-1.30) Estimat Glomerular Filtration Rate mL/min (>60) Glucose Level 103 MG/DL (74-106) Calcium Level 8.9 MG/DL (8.5-10.1) Phosphorus Level 3.2 MG/DL (2.5-4.9) Magnesium Level 1.4 MG/DL (1.8-2.4) L Total Bilirubin 0.5 MG/DL (0.2-1.0) Aspartate Amino Transf (AST/SGOT) 14 U/L (15-37) L Alanine Aminotransferase (ALT/SGPT) 19 U/L (12-78) Alkaline Phosphatase 85 U/L (46-116) Total Protein 6.1 G/DL (6.4-8.2) L Albumin 2.4 G/DL (3.4-5.0) L Globulin 3.7 g/dL Albumin/Globulin Ratio 0.6 (1.0-2.7) L Height (Feet): 6 Height (Inches): 6.00 Weight (Pounds): 182 General Appearance: WD/WN, no apparent distress, alert Cardiovascular: normal rate Respiratory/Chest: normal breath sounds, no respiratory distress Abdominal Exam: normal bowel sounds, non tender, soft Extremities: non-tender Osiel Vega NP Nov 30, 2018 10:39
--- NOTE | 2018-11-30 11:09 | NUR ---
RD ASSESSMENT & RECOMMENDATIONS SEE CARE ACTIVITY FOR COMPLETE ASSESSMENT DAILY ESTIMATED NEEDS: Needs based on DM 75kg adj 25-30 kcals/kg 5439-1468 total kcals 1-1.5 g protein/kg 75-113 g total protein 20-25 mL/kg 3575-5852 total fluid mLs NUTRITION DIAGNOSIS: * Altered nutrition related lab values r.t diabetes as evidenced by A1C 6.6. * Swallowing and chewing difficulty R/T dysphagia and poor dentition as evidenced by pt on [facility] soft finely chopped texture diet per [employer]. CURRENT DIET:REGULAR, mech soft finely chopped PO DIET RECOMMENDATIONS: CCHO MED / texture per [employer] ADDITIONAL RECOMMENDATIONS: 1) Calibrated bedscale wt for accurate CBW 2) Rec to DC D5 IVF- for glycemic control, pt w/ good PO intake 3) Monitor lytes, replete as needed (low mag) .
--- NOTE | 2018-11-30 13:06 | Pulmonology Progress Note ---
Assessment/Plan Problems: (1) Lower GI bleed (2) Hydronephrosis (3) Anemia (4) Bladder neoplasm (5) Chronic cerebrovascular accident (CVA) (6) Diabetes mellitus (7) Alzheimer's dementia (8) HTN (hypertension) Assessment/Plan no new complains nephrostomy in place. tolerated cystoscopy follow up with pathology, still not available. looks comfortable sliding scale monitor bp f/u urology recommendations prbc prn check H/H dvt prophylaxis. Subjective ROS Limited/Unobtainable: No Constitutional: Reports: no symptoms HEENT: Repors: no symptoms Allergies: Coded Allergies: No Known Allergies (Unverified , 04/09/16) Objective Last 24 Hour Vital Signs Date Time Temp Pulse Resp B/P (MAP) Pulse Ox O2 Delivery O2 Flow Rate FiO2 11/30/18 12:21 98.2 62 14 149/71 (97) 98 11/30/18 08:17 65 145/62 11/30/18 08:17 145/62 11/30/18 08:00 Room Air 11/30/18 08:00 98.2 65 16 145/62 (89) 98 11/30/18 04:00 98.3 70 17 151/67 (95) 97 11/30/18 00:00 98.1 62 17 140/60 (86) 98 11/29/18 20:10 Room Air 11/29/18 20:00 98.9 67 19 150/61 (90) 97 11/29/18 18:23 159/68 11/29/18 16:00 98.0 67 18 159/68 (98) 99 Intake and Output 11/29/18 11/30/18 18:59 06:59 Intake Total 600 ml 1260 ml Output Total 3200 ml 1500 ml Balance -2600 ml -240 ml Intake Oral 600 ml 360 ml IV Total 900 ml Output Urine Total 1325 ml 500 ml Other 1875 ml 1000 ml Objective nephrostomy still draining blood tinged urine, but less than previous day Laboratory Tests 11/30/18 04:50: White Blood Count 8.2, Red Blood Count 3.22L, Hemoglobin 9.8L, Hematocrit 28.9L , Mean Corpuscular Volume 90, Mean Corpuscular Hemoglobin 30.5, Mean Corpuscular Hemoglobin Concent 34.0, Red Cell Distribution Width 11.0L, Platelet Count 155, Mean Platelet Volume 6.5, Neutrophils (%) (Auto) 75.1H, Lymphocytes (%) (Auto) 16.3L, Monocytes (%) (Auto) 7.8, Eosinophils (%) (Auto) 0.1, Basophils (%) (Auto) 0.8, Prothrombin Time 10.6, Prothromb Time International Ratio 1.0, Activated Partial Thromboplast Time 33, Sodium Level 141, Potassium Level 3.7, Chloride Level 105, Carbon Dioxide Level 29, Anion Gap 7, Blood Urea Nitrogen 14, Creatinine 1.0, Estimat Glomerular Filtration Rate , Glucose Level 103, Calcium Level 8.9, Phosphorus Level 3.2, Magnesium Level 1.4L, Total Bilirubin 0.5, Aspartate Amino Transf (AST/SGOT) 14L, Alanine Aminotransferase (ALT/SGPT) 19, Alkaline Phosphatase 85, Total Protein 6.1L, Albumin 2.4L, Globulin 3.7, Albumin/Globulin Ratio 0.6L Current Medications Medications (Trade) Dose Ordered Sig/Levi Route PRN Reason Start Time Stop Time Status Last Admin Dose Admin Acetaminophen (Tylenol) 650 mg Q4H PRN ORAL fever 11/22/18 13:30 12/22/18 13:29 Al Hydroxide/Mg Hydroxide (Mylanta II) 30 ml Q6H PRN ORAL dyspepsia 11/22/18 13:30 12/22/18 13:29 Amlodipine Besylate (Norvasc) 2.5 mg DAILY ORAL 11/29/18 09:00 12/29/18 08:59 11/30/18 08:17 Dextrose (Dextrose 50%) 25 ml Q30M PRN IV Hypoglycemia 11/22/18 13:30 12/22/18 13:23 11/22/18 17:21 Dextrose (Dextrose 50%) 50 ml Q30M PRN IV hypoglycemia 11/22/18 13:30 12/22/18 13:29 Dextrose/Sodium Chloride 1,000 ml @ 75 mls/hr [id number] IV 11/22/18 13:16 12/22/18 13:15 11/30/18 08:18 Diphenhydramine HCl (Benadryl) 25 mg Q6H PRN ORAL Itching/Pruritis 11/22/18 13:30 12/22/18 13:29 Finasteride (Proscar) 5 mg DAILY ORAL 11/22/18 19:45 12/22/18 19:44 11/30/18 08:17 Hydralazine HCl (Apresoline) 50 mg Q6H PRN ORAL SBP > 160 11/22/18 17:30 12/22/18 17:29 11/27/18 01:26 Insulin Aspart (NovoLOG) BEFORE MEALS AND HS SUBQ 11/22/18 16:30 12/22/18 16:29 11/30/18 12:24 Irbesartan (Avapro) 150 mg BID ORAL 11/25/18 09:00 12/25/18 08:59 11/30/18 08:17 Magnesium Sulfate 100 ml @ 100 mls/hr Q1H IVPB 11/30/18 11:30 11/30/18 13:29 11/30/18 12:59 Methimazole (Tapazole) 10 mg DAILY ORAL 11/29/18 09:00 12/24/18 08:59 11/30/18 08:18 Nateglinide (Starlix) 120 mg TIAC ORAL 11/29/18 11:30 12/24/18 11:29 11/30/18 11:50 Nitroglycerin (Ntg) 0.4 mg Q5M X 3 DOSES PRN SL Prn Chest Pain 11/22/18 13:30 12/22/18 13:29 Ondansetron HCl (Zofran) 4 mg Q6H PRN IVP Nausea & Vomiting 11/22/18 13:30 12/22/18 13:29 Pantoprazole (Protonix) 40 mg EVERY 12 HOURS ORAL 11/24/18 21:00 12/24/18 20:59 11/30/18 08:17 Polyethylene Glycol (Miralax) 17 gm HSPRN PRN ORAL Constipation 11/22/18 13:30 12/22/18 13:29 Sucralfate (Carafate) 1 gm FOUR TIMES A DAY ORAL 11/24/18 21:00 12/24/18 20:59 11/30/18 12:59 Tamsulosin HCl (Flomax) 0.4 mg BEDTIME ORAL 11/22/18 21:00 12/22/18 20:59 11/29/18 20:44 Temazepam (Restoril) 15 mg HSPRN PRN ORAL Insomnia 11/29/18 21:15 12/06/18 21:14 Og Hinkle MD Nov 30, 2018 13:06
--- NOTE | 2018-11-30 13:12 | Infectious Diseases Prog Note ---
Assessment/Plan Assessment/Plan Assessment: Hematochezia -11/24 SP EGD/Colonoscopy: gastritis, hemorrhoids L hydronephrosis/L Hydroureter 2ry to extensive bladder tumor -11/25 SP Cystoscopy, urethral calibration, transurethral resection of extensive bladder tumor with fulguration, and right retrograde pyelogram. -Findings: The patient had what appeared to be a large bladder tumor that involved most of the left side of the bladder extending posteriorly and completely obliterating the left ureteral orifice. I was unable to place a stent on the left side. - -CT abd/p: Limited assessment of the GI tract, due to lack of enteric contrast administration. Moderate left hydronephrosis and hydroureter. Hydroureter extends to the bladder, where there is asymmetric posterolateral wall thickening raises concern for neoplasm. Further evaluation with cystoscopy should be considered. There is also generalized wall thickening, possibly on the basis of cystitis or chronic bladder outlet obstruction. No definite findings to suggest etiology of stated clinical history of GI bleed. Cholelithiasis. Basilar pulmonary atelectasis and equivocal slight interstitial congestion. L1 vertebral body compression fracture deformity, age indeterminate. Consider MRI for further evaluation if this is clinically relevant Afebrile NO leukocytosis -CXR: No acute process Pyuria Funguria -u/a wbc 10-15, nit +, leuk est +3; ucx <10 yeast Encephalopathy -Head CT: Chronic and age-related changes is noted. Negative for acute intracranial bleed or mass effect. 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 Will continue to follow along with you Subjective Allergies: Coded Allergies: No Known Allergies (Unverified , 04/09/16) Subjective afebrile no leukocytosis now off abx Objective Vital Signs Last 24 Hour Vital Signs Date Time Temp Pulse Resp B/P (MAP) Pulse Ox O2 Delivery O2 Flow Rate FiO2 11/30/18 12:21 98.2 62 14 149/71 (97) 98 11/30/18 08:17 65 145/62 11/30/18 08:17 145/62 11/30/18 08:00 Room Air 11/30/18 08:00 98.2 65 16 145/62 (89) 98 11/30/18 04:00 98.3 70 17 151/67 (95) 97 11/30/18 00:00 98.1 62 17 140/60 (86) 98 11/29/18 20:10 Room Air 11/29/18 20:00 98.9 67 19 150/61 (90) 97 11/29/18 18:23 159/68 11/29/18 16:00 98.0 67 18 159/68 (98) 99 Height (Feet): 6 Height (Inches): 6.00 Weight (Pounds): 182 Objective GENERAL: NAD HEAD AND NECK: NCAT, MMM, EOMI LUNGS: CTAB, No W ABDOMEN: Soft, nondistended, and nontender. Positive bowel sounds. Heart: RRR, S1, S2 Laboratory Tests Test 11/30/18 04:50 White Blood Count 8.2 K/UL (4.8-10.8) Red Blood Count 3.22 M/UL (4.70-6.10) L Hemoglobin 9.8 G/DL (14.2-18.0) L Hematocrit 28.9 % (42.0-52.0) L Mean Corpuscular Volume 90 FL (80-99) Mean Corpuscular Hemoglobin 30.5 PG (27.0-31.0) Mean Corpuscular Hemoglobin Concent 34.0 G/DL (32.0-36.0) Red Cell Distribution Width 11.0 % (11.6-14.8) L Platelet Count 155 K/UL (150-450) Mean Platelet Volume 6.5 FL (6.5-10.1) Neutrophils (%) (Auto) 75.1 % (45.0-75.0) H Lymphocytes (%) (Auto) 16.3 % (20.0-45.0) L Monocytes (%) (Auto) 7.8 % (1.0-10.0) Eosinophils (%) (Auto) 0.1 % (0.0-3.0) Basophils (%) (Auto) 0.8 % (0.0-2.0) Prothrombin Time 10.6 SEC (9.30-11.50) Prothromb Time International Ratio 1.0 (0.9-1.1) Activated Partial Thromboplast Time 33 SEC (23-33) Sodium Level 141 MMOL/L (136-145) Potassium Level 3.7 MMOL/L (3.5-5.1) Chloride Level 105 MMOL/L (98-107) Carbon Dioxide Level 29 MMOL/L (21-32) Anion Gap 7 mmol/L (5-15) Blood Urea Nitrogen 14 mg/dL (7-18) Creatinine 1.0 MG/DL (0.55-1.30) Estimat Glomerular Filtration Rate mL/min (>60) Glucose Level 103 MG/DL (74-106) Calcium Level 8.9 MG/DL (8.5-10.1) Phosphorus Level 3.2 MG/DL (2.5-4.9) Magnesium Level 1.4 MG/DL (1.8-2.4) L Total Bilirubin 0.5 MG/DL (0.2-1.0) Aspartate Amino Transf (AST/SGOT) 14 U/L (15-37) L Alanine Aminotransferase (ALT/SGPT) 19 U/L (12-78) Alkaline Phosphatase 85 U/L (46-116) Total Protein 6.1 G/DL (6.4-8.2) L Albumin 2.4 G/DL (3.4-5.0) L Globulin 3.7 g/dL Albumin/Globulin Ratio 0.6 (1.0-2.7) L Current Medications Medications (Trade) Dose Ordered Sig/Levi Route PRN Reason Start Time Stop Time Status Last Admin Dose Admin Acetaminophen (Tylenol) 650 mg Q4H PRN ORAL fever 11/22/18 13:30 12/22/18 13:29 Al Hydroxide/Mg Hydroxide (Mylanta II) 30 ml Q6H PRN ORAL dyspepsia 11/22/18 13:30 12/22/18 13:29 Amlodipine Besylate (Norvasc) 2.5 mg DAILY ORAL 11/29/18 09:00 12/29/18 08:59 11/30/18 08:17 Dextrose (Dextrose 50%) 25 ml Q30M PRN IV Hypoglycemia 11/22/18 13:30 12/22/18 13:23 11/22/18 17:21 Dextrose (Dextrose 50%) 50 ml Q30M PRN IV hypoglycemia 11/22/18 13:30 12/22/18 13:29 Dextrose/Sodium Chloride 1,000 ml @ 75 mls/hr [id number] IV 11/22/18 13:16 12/22/18 13:15 11/30/18 08:18 Diphenhydramine HCl (Benadryl) 25 mg Q6H PRN ORAL Itching/Pruritis 11/22/18 13:30 12/22/18 13:29 Finasteride (Proscar) 5 mg DAILY ORAL 11/22/18 19:45 12/22/18 19:44 11/30/18 08:17 Hydralazine HCl (Apresoline) 50 mg Q6H PRN ORAL SBP > 160 11/22/18 17:30 12/22/18 17:29 11/27/18 01:26 Insulin Aspart (NovoLOG) BEFORE MEALS AND HS SUBQ 11/22/18 16:30 12/22/18 16:29 11/30/18 12:24 Irbesartan (Avapro) 150 mg BID ORAL 11/25/18 09:00 12/25/18 08:59 11/30/18 08:17 Magnesium Sulfate 100 ml @ 100 mls/hr Q1H IVPB 11/30/18 11:30 11/30/18 13:29 11/30/18 12:59 Methimazole (Tapazole) 10 mg DAILY ORAL 11/29/18 09:00 12/24/18 08:59 11/30/18 08:18 Nateglinide (Starlix) 120 mg TIAC ORAL 11/29/18 11:30 12/24/18 11:29 11/30/18 11:50 Nitroglycerin (Ntg) 0.4 mg Q5M X 3 DOSES PRN SL Prn Chest Pain 11/22/18 13:30 12/22/18 13:29 Ondansetron HCl (Zofran) 4 mg Q6H PRN IVP Nausea & Vomiting 11/22/18 13:30 12/22/18 13:29 Pantoprazole (Protonix) 40 mg EVERY 12 HOURS ORAL 11/24/18 21:00 12/24/18 20:59 11/30/18 08:17 Polyethylene Glycol (Miralax) 17 gm HSPRN PRN ORAL Constipation 11/22/18 13:30 12/22/18 13:29 Sucralfate (Carafate) 1 gm FOUR TIMES A DAY ORAL 11/24/18 21:00 12/24/18 20:59 11/30/18 12:59 Tamsulosin HCl (Flomax) 0.4 mg BEDTIME ORAL 11/22/18 21:00 12/22/18 20:59 11/29/18 20:44 Temazepam (Restoril) 15 mg HSPRN PRN ORAL Insomnia 11/29/18 21:15 12/06/18 21:14 Tawny Darby M.D. Nov 30, 2018 13:12
--- NOTE | 2018-11-30 15:59 | Cardiology Progress Note ---
Assessment/Plan Assessment/Plan 1. 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 2. Dementia. 3. History of recent seizures. 4. Hydroureter and hydronephrosis. 5. Iron deficiency. 6. Hematuria. 7. Hematochezia per report. 8. Hyperthyroidism. 9. Elevated blood sugar s/pturp , nephrostomy endocrin noted now on metamizole bp elevated on irbesartan seems to be odoing ok Subjective Cardiovascular: Denies: chest pain, lightheadedness Respiratory: Denies: shortness of breath Gastrointestinal/Abdominal: Denies: abdominal pain Genitourinary: Denies: burning Objective Last 24 Hour Vital Signs Date Time Temp Pulse Resp B/P (MAP) Pulse Ox O2 Delivery O2 Flow Rate FiO2 11/30/18 12:21 98.2 62 14 149/71 (97) 98 11/30/18 08:17 65 145/62 11/30/18 08:17 145/62 11/30/18 08:00 Room Air 11/30/18 08:00 98.2 65 16 145/62 (89) 98 11/30/18 04:00 98.3 70 17 151/67 (95) 97 11/30/18 00:00 98.1 62 17 140/60 (86) 98 11/29/18 20:10 Room Air 11/29/18 20:00 98.9 67 19 150/61 (90) 97 11/29/18 18:23 159/68 11/29/18 16:00 98.0 67 18 159/68 (98) 99 General Appearance: no apparent distress, alert Neck: no JVD Cardiovascular: normal rate, systolic murmur Respiratory/Chest: lungs clear Abdomen: normal bowel sounds, non tender, soft Extremities: no swelling Intake and Output 11/29/18 11/30/18 18:59 06:59 Intake Total 600 ml 1260 ml Output Total 3200 ml 1500 ml Balance -2600 ml -240 ml Intake Oral 600 ml 360 ml IV Total 900 ml Output Urine Total 1325 ml 500 ml Other 1875 ml 1000 ml Laboratory Tests Test 11/30/18 04:50 White Blood Count 8.2 K/UL (4.8-10.8) Red Blood Count 3.22 M/UL (4.70-6.10) L Hemoglobin 9.8 G/DL (14.2-18.0) L Hematocrit 28.9 % (42.0-52.0) L Mean Corpuscular Volume 90 FL (80-99) Mean Corpuscular Hemoglobin 30.5 PG (27.0-31.0) Mean Corpuscular Hemoglobin Concent 34.0 G/DL (32.0-36.0) Red Cell Distribution Width 11.0 % (11.6-14.8) L Platelet Count 155 K/UL (150-450) Mean Platelet Volume 6.5 FL (6.5-10.1) Neutrophils (%) (Auto) 75.1 % (45.0-75.0) H Lymphocytes (%) (Auto) 16.3 % (20.0-45.0) L Monocytes (%) (Auto) 7.8 % (1.0-10.0) Eosinophils (%) (Auto) 0.1 % (0.0-3.0) Basophils (%) (Auto) 0.8 % (0.0-2.0) Prothrombin Time 10.6 SEC (9.30-11.50) Prothromb Time International Ratio 1.0 (0.9-1.1) Activated Partial Thromboplast Time 33 SEC (23-33) Sodium Level 141 MMOL/L (136-145) Potassium Level 3.7 MMOL/L (3.5-5.1) Chloride Level 105 MMOL/L (98-107) Carbon Dioxide Level 29 MMOL/L (21-32) Anion Gap 7 mmol/L (5-15) Blood Urea Nitrogen 14 mg/dL (7-18) Creatinine 1.0 MG/DL (0.55-1.30) Estimat Glomerular Filtration Rate mL/min (>60) Glucose Level 103 MG/DL (74-106) Calcium Level 8.9 MG/DL (8.5-10.1) Phosphorus Level 3.2 MG/DL (2.5-4.9) Magnesium Level 1.4 MG/DL (1.8-2.4) L Total Bilirubin 0.5 MG/DL (0.2-1.0) Aspartate Amino Transf (AST/SGOT) 14 U/L (15-37) L Alanine Aminotransferase (ALT/SGPT) 19 U/L (12-78) Alkaline Phosphatase 85 U/L (46-116) Total Protein 6.1 G/DL (6.4-8.2) L Albumin 2.4 G/DL (3.4-5.0) L Globulin 3.7 g/dL Albumin/Globulin Ratio 0.6 (1.0-2.7) L Nj Valenzuela MD Nov 30, 2018 15:59
[2018-11-30] MEDS ORDERED: D5 1/2NS 1000ml IV ONE (16:37)
--- NOTE | 2018-11-30 18:22 | Internal Med Progress Note ---
Subjective Date of Service: Nov 30, 2018 Physician Name Peter,Jean-Claude Attending Physician Jaziel Lowe MD Current Medications Medications (Trade) Dose Ordered Sig/Levi Route PRN Reason Start Time Stop Time Status Last Admin Dose Admin Acetaminophen (Tylenol) 650 mg Q4H PRN ORAL fever 11/22/18 13:30 12/22/18 13:29 Al Hydroxide/Mg Hydroxide (Mylanta II) 30 ml Q6H PRN ORAL dyspepsia 11/22/18 13:30 12/22/18 13:29 Amlodipine Besylate (Norvasc) 2.5 mg DAILY ORAL 11/29/18 09:00 12/29/18 08:59 11/30/18 08:17 Dextrose (Dextrose 50%) 25 ml Q30M PRN IV Hypoglycemia 11/22/18 13:30 12/22/18 13:23 11/22/18 17:21 Dextrose (Dextrose 50%) 50 ml Q30M PRN IV hypoglycemia 11/22/18 13:30 12/22/18 13:29 Dextrose/Sodium Chloride 1,000 ml @ 75 mls/hr [id number] IV 11/22/18 13:16 12/22/18 13:15 11/30/18 08:18 Diphenhydramine HCl (Benadryl) 25 mg Q6H PRN ORAL Itching/Pruritis 11/22/18 13:30 12/22/18 13:29 Finasteride (Proscar) 5 mg DAILY ORAL 11/22/18 19:45 12/22/18 19:44 11/30/18 08:17 Hydralazine HCl (Apresoline) 50 mg Q6H PRN ORAL SBP > 160 11/22/18 17:30 12/22/18 17:29 11/27/18 01:26 Insulin Aspart (NovoLOG) BEFORE MEALS AND HS SUBQ 11/22/18 16:30 12/22/18 16:29 11/30/18 16:11 Irbesartan (Avapro) 150 mg BID ORAL 11/25/18 09:00 12/25/18 08:59 11/30/18 17:02 Methimazole (Tapazole) 10 mg DAILY ORAL 11/29/18 09:00 12/24/18 08:59 11/30/18 08:18 Nateglinide (Starlix) 120 mg TIAC ORAL 11/29/18 11:30 12/24/18 11:29 11/30/18 16:12 Nitroglycerin (Ntg) 0.4 mg Q5M X 3 DOSES PRN SL Prn Chest Pain 11/22/18 13:30 12/22/18 13:29 Ondansetron HCl (Zofran) 4 mg Q6H PRN IVP Nausea & Vomiting 11/22/18 13:30 12/22/18 13:29 Pantoprazole (Protonix) 40 mg EVERY 12 HOURS ORAL 11/24/18 21:00 12/24/18 20:59 11/30/18 08:17 Polyethylene Glycol (Miralax) 17 gm HSPRN PRN ORAL Constipation 11/22/18 13:30 12/22/18 13:29 Sucralfate (Carafate) 1 gm FOUR TIMES A DAY ORAL 11/24/18 21:00 12/24/18 20:59 11/30/18 17:02 Tamsulosin HCl (Flomax) 0.4 mg BEDTIME ORAL 11/22/18 21:00 12/22/18 20:59 11/29/18 20:44 Temazepam (Restoril) 15 mg HSPRN PRN ORAL Insomnia 11/29/18 21:15 12/06/18 21:14 Allergies: Coded Allergies: No Known Allergies (Unverified , 04/09/16) ROS Limited/Unobtainable: No Constitutional: Reports: no symptoms HEENT: Reports: no symptoms Cardiovascular: Reports: no symptoms Respiratory: Reports: no symptoms Gastrointestinal/Abdominal: Reports: no symptoms Genitourinary: Reports: no symptoms 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: Reports: no symptoms Subjective 83 YO M admitted with gastrointestinal hemorrhage. S/P endoscopy and colonoscopy 11/24/18. S/P transurethral bladder tumor resection 11/24/18. Cover for Int Uriel-Dr Lowe Objective Last Vital Signs Date Time Temp Pulse Resp B/P (MAP) Pulse Ox O2 Delivery O2 Flow Rate FiO2 11/30/18 17:02 134/59 11/30/18 16:19 97.9 62 18 98 11/30/18 08:00 Room Air 11/26/18 10:12 4.0 Laboratory Tests Test 11/30/18 04:50 White Blood Count 8.2 K/UL (4.8-10.8) Red Blood Count 3.22 M/UL (4.70-6.10) L Hemoglobin 9.8 G/DL (14.2-18.0) L Hematocrit 28.9 % (42.0-52.0) L Mean Corpuscular Volume 90 FL (80-99) Mean Corpuscular Hemoglobin 30.5 PG (27.0-31.0) Mean Corpuscular Hemoglobin Concent 34.0 G/DL (32.0-36.0) Red Cell Distribution Width 11.0 % (11.6-14.8) L Platelet Count 155 K/UL (150-450) Mean Platelet Volume 6.5 FL (6.5-10.1) Neutrophils (%) (Auto) 75.1 % (45.0-75.0) H Lymphocytes (%) (Auto) 16.3 % (20.0-45.0) L Monocytes (%) (Auto) 7.8 % (1.0-10.0) Eosinophils (%) (Auto) 0.1 % (0.0-3.0) Basophils (%) (Auto) 0.8 % (0.0-2.0) Prothrombin Time 10.6 SEC (9.30-11.50) Prothromb Time International Ratio 1.0 (0.9-1.1) Activated Partial Thromboplast Time 33 SEC (23-33) Sodium Level 141 MMOL/L (136-145) Potassium Level 3.7 MMOL/L (3.5-5.1) Chloride Level 105 MMOL/L (98-107) Carbon Dioxide Level 29 MMOL/L (21-32) Anion Gap 7 mmol/L (5-15) Blood Urea Nitrogen 14 mg/dL (7-18) Creatinine 1.0 MG/DL (0.55-1.30) Estimat Glomerular Filtration Rate mL/min (>60) Glucose Level 103 MG/DL (74-106) Calcium Level 8.9 MG/DL (8.5-10.1) Phosphorus Level 3.2 MG/DL (2.5-4.9) Magnesium Level 1.4 MG/DL (1.8-2.4) L Total Bilirubin 0.5 MG/DL (0.2-1.0) Aspartate Amino Transf (AST/SGOT) 14 U/L (15-37) L Alanine Aminotransferase (ALT/SGPT) 19 U/L (12-78) Alkaline Phosphatase 85 U/L (46-116) Total Protein 6.1 G/DL (6.4-8.2) L Albumin 2.4 G/DL (3.4-5.0) L Globulin 3.7 g/dL Albumin/Globulin Ratio 0.6 (1.0-2.7) L Intake and Output 11/29/18 11/30/18 19:00 07:00 Intake Total 600 ml 1335 ml Output Total 3200 ml 1500 ml Balance -2600 ml -165 ml Intake Oral 600 ml 360 ml IV Total 0 ml 975 ml Output Urine Total 1325 ml 500 ml Other 1875 ml 1000 ml Objective PHYSICAL EXAMINATION: GENERAL: The patient is awake, alert, responsive, very pleasant, but forgetful. HEAD AND NECK: Pupils are reactive to light. Extraocular movements intact. Neck was supple. No JVD. LUNGS: Good air entry. No wheezing or rales. Left side of the chest has a pacemaker. ABDOMEN: Soft, nondistended, and nontender. Positive bowel sounds. EXTREMITIES: No cyanosis, clubbing, or edema. NEUROLOGIC: ACID EXTRACTOR II through XII grossly intact. Motor is 5/5 in all extremities. Gait was not assessed due to the patient's status. RECTAL/GENITOURINARY: Refused and deferred. Assessment/Plan Assessment/Plan ASSESSMENT: 1. Gastrointestinal bleed. 2. Anemia possible due to acute blood loss. 3. Hypokalemia. 4. Acute urinary tract infection. 5. Moderate left hydronephrosis with hydroureter. 6. Cardiac arrhythmia status post pacemaker. 7. Diabetes type 2. 8. Hypertension. 9. Gastritis 10. hemorrhoids 11. hematuria-Bladder cancer PLAN: 1. Admit the patient to medical floor. 2. We will follow up with the laboratory. 3. Clear liquid diet. 4. Gastrointestinal consultation with Dr. Hernandez. 5. Code status is Full Code at this time. 6. See Urology consultation, Dr. Allen S/P transurethral resection bladder tumor High grade urothelial carcinoma 7. S/P Esophagogastroduodenoscopy and colonoscopy 11/24/18. 8. We will follow up with urine culture and Cardiology consultation with Dr. Nj Valenzuela. 9. Protonix 40 mg BID and carafate 1 gm QID 10 Await Oncology consult Jean-Claude Peter MD Nov 30, 2018 18:22
--- NOTE | 2018-11-30 18:57 | NUR ---
HAND-OFF: Report given to DONELL phipps.
--- NOTE | 2018-11-30 19:27 | NUR ---
NURSE NOTES: Received patient awake,verbal,with garbled/slurred speech,follows simple command,forgetful at times,resting comfortably,left nephrostomy and indwelling hernandez catheter draining blood tinged urine well.
[2018-11-30] MEDS: Tamsulosin 0.4mg cap ORAL SCH (20:55)
--- NOTE | 2018-11-30 21:53 | Neurology Progress Note ---
Interim History Interim History ROS Limited/Unobtainable: No Events: None significant Objective Physical Exam Last Vital Signs Date Time Temp Pulse Resp B/P (MAP) Pulse Ox O2 Delivery O2 Flow Rate FiO2 11/30/18 20:21 Room Air 11/30/18 19:57 98.2 82 18 119/55 (76) 98 11/26/18 10:12 4.0 Laboratory Tests Test 11/30/18 04:50 White Blood Count 8.2 K/UL (4.8-10.8) Red Blood Count 3.22 M/UL (4.70-6.10) L Hemoglobin 9.8 G/DL (14.2-18.0) L Hematocrit 28.9 % (42.0-52.0) L Mean Corpuscular Volume 90 FL (80-99) Mean Corpuscular Hemoglobin 30.5 PG (27.0-31.0) Mean Corpuscular Hemoglobin Concent 34.0 G/DL (32.0-36.0) Red Cell Distribution Width 11.0 % (11.6-14.8) L Platelet Count 155 K/UL (150-450) Mean Platelet Volume 6.5 FL (6.5-10.1) Neutrophils (%) (Auto) 75.1 % (45.0-75.0) H Lymphocytes (%) (Auto) 16.3 % (20.0-45.0) L Monocytes (%) (Auto) 7.8 % (1.0-10.0) Eosinophils (%) (Auto) 0.1 % (0.0-3.0) Basophils (%) (Auto) 0.8 % (0.0-2.0) Prothrombin Time 10.6 SEC (9.30-11.50) Prothromb Time International Ratio 1.0 (0.9-1.1) Activated Partial Thromboplast Time 33 SEC (23-33) Sodium Level 141 MMOL/L (136-145) Potassium Level 3.7 MMOL/L (3.5-5.1) Chloride Level 105 MMOL/L (98-107) Carbon Dioxide Level 29 MMOL/L (21-32) Anion Gap 7 mmol/L (5-15) Blood Urea Nitrogen 14 mg/dL (7-18) Creatinine 1.0 MG/DL (0.55-1.30) Estimat Glomerular Filtration Rate mL/min (>60) Glucose Level 103 MG/DL (74-106) Calcium Level 8.9 MG/DL (8.5-10.1) Phosphorus Level 3.2 MG/DL (2.5-4.9) Magnesium Level 1.4 MG/DL (1.8-2.4) L Total Bilirubin 0.5 MG/DL (0.2-1.0) Aspartate Amino Transf (AST/SGOT) 14 U/L (15-37) L Alanine Aminotransferase (ALT/SGPT) 19 U/L (12-78) Alkaline Phosphatase 85 U/L (46-116) Total Protein 6.1 G/DL (6.4-8.2) L Albumin 2.4 G/DL (3.4-5.0) L Globulin 3.7 g/dL Albumin/Globulin Ratio 0.6 (1.0-2.7) L Impression/Recommendations Problems: (1) Altered level of consciousness Assessment & Plan: CT 11/22/18: Chronic and age-related changes is noted. 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 Status: unchanged Recommendations Unable to obtain MRI - so will continue to monitor- continue ASA and Q 4 hour neuro checks CTA if worsening deficits or new acute. Bailey Appiah N.P. Nov 30, 2018 21:53
[2018-12-01 03:50] VITALS: BP 147/63
[2018-12-01] MEDS: NovoLOG Insulin Flexpen SUBQ SCH ×4 (06:00→20:50)
[2018-12-01 06:54] LABS: ANION GAP 6 mmol/L (5-15); BASOPHILS % (AUTO) 0.9 % (0.0-2.0); BLOOD UREA NITROGEN 11 mg/dL (7-18); CALCIUM 8.9 MG/DL (8.5-10.1); CARBON DIOXIDE 29 MMOL/L (21-32); CHLORIDE 106 MMOL/L (98-107); EOSINOPHILS % (AUTO) 0.1 % (0.0-3.0); HEMATOCRIT 29.9 % (42.0-52.0); HEMOGLOBIN 10.3 G/DL (14.2-18.0); LYMPHOCYTES % (AUTO) 16.9 % (20.0-45.0); MEAN CORPUSCULAR VOLUME 89 FL (80-99); MONOCYTES % (AUTO) 8.6 % (1.0-10.0); NEUTROPHILS % (AUTO) 73.6 % (45.0-75.0); PLATELET COUNT 159 K/UL (150-450); POTASSIUM 3.9 MMOL/L (3.5-5.1); RED BLOOD COUNT 3.35 M/UL (4.70-6.10); RED CELL DISTRIBUTION WIDTH 10.9 % (11.6-14.8); SODIUM 141 MMOL/L (136-145); WHITE BLOOD COUNT 7.2 K/UL (4.8-10.8)
--- NOTE | 2018-12-01 07:10 | NUR ---
HAND-OFF: Report given to Stacie Jean Baptiste RN.
--- NOTE | 2018-12-01 07:27 | NUR ---
NURSE NOTES: Report received from DONELL Page. Pt in bed, awake, talkative, no complaints of pain, no distress noted, bed in lowest position, bed alarm on, call light within reach.
[2018-12-01 08:00] VITALS: BP 157/79
[2018-12-01] MEDS: Sucralfate 1gm tab ORAL SCH ×4 (08:24→20:49)
[2018-12-01] MEDS: Irbesartan 150mg tablet ORAL SCH ×2 (08:24→16:53)
--- NOTE | 2018-12-01 08:42 | NUR ---
NURSE NOTES: Removed Robertson per Dr. Allen's order at 0840. Will monitor pt's urine output, needs to urinate by 1440.
--- NOTE | 2018-12-01 09:51 | Urology Progress Note ---
Assessment/Plan Assessment: 1. Left hydronephrosis. 2. Hematuria. 3. Pyuria. 4. Proteinuria. 5. Benign prostatic hypertrophy. 6. Incontinence. 7. Neurogenic bladder. 8. Cystitis. 9. Bladder cancer. 10. POD # 7, cysto/TURBT Plan: monitor clinically keep hernandez indwelling hand irrigated and do PRN left hydro secondary to bladder tumor left nephrostomy placed 11/[address] antegrade ureteral stent, reattempt later? flomax and proscar voiding trial today monitor for voiding and reinsert hernandez PRN s/p diflucan med onc eval Subjective Allergies: Coded Allergies: No Known Allergies (Unverified , 04/09/16) Subjective all noted, feels fair Objective Last 24 Hour Vital Signs Date Time Temp Pulse Resp B/P (MAP) Pulse Ox O2 Delivery O2 Flow Rate FiO2 12/01/18 09:00 Room Air 12/01/18 08:25 67 157/79 12/01/18 08:24 157/79 12/01/18 08:00 98.5 65 14 157/79 (105) 100 12/01/18 03:50 97.7 61 18 147/63 (91) 98 11/30/18 23:47 97.9 66 19 128/55 (79) 100 11/30/18 20:21 Room Air 11/30/18 19:57 98.2 82 18 119/55 (76) 98 11/30/18 17:02 134/59 11/30/18 16:19 97.9 62 18 134/59 (84) 98 11/30/18 12:21 98.2 62 14 149/71 (97) 98 Intake and Output 11/30/18 12/01/18 19:00 07:00 Intake Total 1685 ml 1180 ml Output Total 2000 ml 2800 ml Balance -315 ml -1620 ml Intake Oral 860 ml 320 ml IV Total 825 ml 860 ml Output Urine Total 1300 ml 1400 ml Other 700 ml 1400 ml Microbiology Date/Time Source Procedure Growth Status 11/22/18 12:20 Nasal Nares MRSA Culture - Final NO METHICILLIN RESISTANT STAPH AUREUS... Complete 11/22/18 11:15 Urine,Clean Catch Urine Culture - Final YEAST Complete 11/22/18 12:20 Rectal Mucosa VRE Culture - Final NO VANCOMYCIN RESISTANT ENTEROCOCCUS ... Complete 11/22/18 12:20 Rectal Mucosa - Final NO CARBAPENEM-RESISTANT ENTEROBACTERI... Complete Current Medications Medications (Trade) Dose Ordered Sig/Levi Route PRN Reason Start Time Stop Time Status Last Admin Dose Admin Acetaminophen (Tylenol) 650 mg Q4H PRN ORAL fever 11/22/18 13:30 12/22/18 13:29 Al Hydroxide/Mg Hydroxide (Mylanta II) 30 ml Q6H PRN ORAL dyspepsia 11/22/18 13:30 12/22/18 13:29 Amlodipine Besylate (Norvasc) 2.5 mg DAILY ORAL 11/29/18 09:00 12/29/18 08:59 12/01/18 08:25 Dextrose (Dextrose 50%) 25 ml Q30M PRN IV Hypoglycemia 11/22/18 13:30 12/22/18 13:23 11/22/18 17:21 Dextrose (Dextrose 50%) 50 ml Q30M PRN IV hypoglycemia 11/22/18 13:30 12/22/18 13:29 Dextrose/Sodium Chloride 1,000 ml @ 75 mls/hr [id number] IV 11/22/18 13:16 12/22/18 13:15 11/30/18 21:26 Diphenhydramine HCl (Benadryl) 25 mg Q6H PRN ORAL Itching/Pruritis 11/22/18 13:30 12/22/18 13:29 Finasteride (Proscar) 5 mg DAILY ORAL 11/22/18 19:45 12/22/18 19:44 12/01/18 08:25 Hydralazine HCl (Apresoline) 50 mg Q6H PRN ORAL SBP > 160 11/22/18 17:30 12/22/18 17:29 11/27/18 01:26 Insulin Aspart (NovoLOG) BEFORE MEALS AND HS SUBQ 11/22/18 16:30 12/22/18 16:29 12/01/18 06:00 Irbesartan (Avapro) 150 mg BID ORAL 11/25/18 09:00 12/25/18 08:59 12/01/18 08:24 Methimazole (Tapazole) 10 mg DAILY ORAL 11/29/18 09:00 12/24/18 08:59 12/01/18 08:24 Nateglinide (Starlix) 120 mg TIAC ORAL 11/29/18 11:30 12/24/18 11:29 12/01/18 05:59 Nitroglycerin (Ntg) 0.4 mg Q5M X 3 DOSES PRN SL Prn Chest Pain 11/22/18 13:30 12/22/18 13:29 Ondansetron HCl (Zofran) 4 mg Q6H PRN IVP Nausea & Vomiting 11/22/18 13:30 12/22/18 13:29 Pantoprazole (Protonix) 40 mg EVERY 12 HOURS ORAL 11/24/18 21:00 12/24/18 20:59 12/01/18 08:25 Polyethylene Glycol (Miralax) 17 gm HSPRN PRN ORAL Constipation 11/22/18 13:30 12/22/18 13:29 Sucralfate (Carafate) 1 gm FOUR TIMES A DAY ORAL 11/24/18 21:00 12/24/18 20:59 12/01/18 08:24 Tamsulosin HCl (Flomax) 0.4 mg BEDTIME ORAL 11/22/18 21:00 12/22/18 20:59 11/30/18 20:55 Temazepam (Restoril) 15 mg HSPRN PRN ORAL Insomnia 11/29/18 21:15 12/06/18 21:14 11/30/18 20:56 Laboratory Tests 12/01/18 06:00: White Blood Count 7.2, Red Blood Count 3.35L, Hemoglobin 10.3L, Hematocrit 29.9L , Mean Corpuscular Volume 89, Mean Corpuscular Hemoglobin 30.6, Mean Corpuscular Hemoglobin Concent 34.3, Red Cell Distribution Width 10.9L, Platelet Count 159, Mean Platelet Volume 6.7, Neutrophils (%) (Auto) 73.6, Lymphocytes (%) (Auto) 16.9L, Monocytes (%) (Auto) 8.6, Eosinophils (%) (Auto) 0.1, Basophils (%) (Auto) 0.9, Sodium Level 141, Potassium Level 3.9, Chloride Level 106, Carbon Dioxide Level 29, Anion Gap 6, Blood Urea Nitrogen 11, Creatinine 1.0, Estimat Glomerular Filtration Rate , Glucose Level 118H, Calcium Level 8.9, Magnesium Level 1.8 Height (Feet): 6 Height (Inches): 6.00 Weight (Pounds): 185 Objective exam stable hernandez cath, urine clearing, wes left nephrostomy blood-tinged final path noted Macho Allen MD Dec 01, 2018 09:51
--- NOTE | 2018-12-01 10:04 | GI Progress Note ---
Assessment/Plan Problems: (1) Lower GI bleed ICD Codes: K92.2 - Gastrointestinal hemorrhage, unspecified SNOMED: 75952419 (2) Anemia ICD Codes: D64.9 - Anemia, unspecified SNOMED: 057638973 (3) Bleeding hemorrhoid ICD Codes: K64.9 - Unspecified hemorrhoids SNOMED: 07494632 (4) Alzheimer's dementia ICD Codes: G30.9 - Alzheimer's disease, unspecified; F02.80 - Dementia in other diseases classified elsewhere without behavioral disturbance SNOMED: 25396017 (5) Diabetes mellitus ICD Codes: E11.9 - Type 2 diabetes mellitus without complications SNOMED: 35585806 Status: unchanged Status Narrative Discussed with Dr. Hernandez Assessment/Plan SUMMARY OF FINDINGS: 1. Gastritis and possibly gastric ulceration, status post biopsy. 2. One colonic polyp removed, see above for details. 3. Internal hemorrhoids. Occult blood stool negative RECOMMENDATIONS: Follow up pathology. >> H. pylori negative Resume diet. Follow with Urology given diagnosis of bladder cancer. monitor H&H, prn transfusions bowel regime ppi fu labs The patient was seen and examined at bedside and all new and available data was reviewed in the patients chart. I agree with the above findings, impression and plan. (Patient seen earlier today. Signature stamp does not reflect patient encounter time.). - Prince Hernandez MD Subjective Subjective Limited Objective Last 24 Hour Vital Signs Date Time Temp Pulse Resp B/P (MAP) Pulse Ox O2 Delivery O2 Flow Rate FiO2 12/01/18 09:00 Room Air 12/01/18 08:25 67 157/79 12/01/18 08:24 157/79 12/01/18 08:00 98.5 65 14 157/79 (105) 100 12/01/18 03:50 97.7 61 18 147/63 (91) 98 11/30/18 23:47 97.9 66 19 128/55 (79) 100 11/30/18 20:21 Room Air 11/30/18 19:57 98.2 82 18 119/55 (76) 98 11/30/18 17:02 134/59 11/30/18 16:19 97.9 62 18 134/59 (84) 98 11/30/18 12:21 98.2 62 14 149/71 (97) 98 Intake and Output 11/30/18 12/01/18 19:00 07:00 Intake Total 1685 ml 1180 ml Output Total 2000 ml 2800 ml Balance -315 ml -1620 ml Intake Oral 860 ml 320 ml IV Total 825 ml 860 ml Output Urine Total 1300 ml 1400 ml Other 700 ml 1400 ml Laboratory Tests Test 12/01/18 06:00 White Blood Count 7.2 K/UL (4.8-10.8) Red Blood Count 3.35 M/UL (4.70-6.10) L Hemoglobin 10.3 G/DL (14.2-18.0) L Hematocrit 29.9 % (42.0-52.0) L Mean Corpuscular Volume 89 FL (80-99) Mean Corpuscular Hemoglobin 30.6 PG (27.0-31.0) Mean Corpuscular Hemoglobin Concent 34.3 G/DL (32.0-36.0) Red Cell Distribution Width 10.9 % (11.6-14.8) L Platelet Count 159 K/UL (150-450) Mean Platelet Volume 6.7 FL (6.5-10.1) Neutrophils (%) (Auto) 73.6 % (45.0-75.0) Lymphocytes (%) (Auto) 16.9 % (20.0-45.0) L Monocytes (%) (Auto) 8.6 % (1.0-10.0) Eosinophils (%) (Auto) 0.1 % (0.0-3.0) Basophils (%) (Auto) 0.9 % (0.0-2.0) Sodium Level 141 MMOL/L (136-145) Potassium Level 3.9 MMOL/L (3.5-5.1) Chloride Level 106 MMOL/L (98-107) Carbon Dioxide Level 29 MMOL/L (21-32) Anion Gap 6 mmol/L (5-15) Blood Urea Nitrogen 11 mg/dL (7-18) Creatinine 1.0 MG/DL (0.55-1.30) Estimat Glomerular Filtration Rate mL/min (>60) Glucose Level 118 MG/DL (74-106) H Calcium Level 8.9 MG/DL (8.5-10.1) Magnesium Level 1.8 MG/DL (1.8-2.4) Height (Feet): 6 Height (Inches): 6.00 Weight (Pounds): 185 General Appearance: WD/WN, no apparent distress, alert Cardiovascular: normal rate Respiratory/Chest: normal breath sounds, no respiratory distress Abdominal Exam: normal bowel sounds, non tender, soft Extremities: non-tender Osiel Vega NP Dec 01, 2018 10:04
[2018-12-01] MEDS: D5 1/2NS 1,000 ML IV SCH (10:39)
[2018-12-01 12:00] VITALS: BP 151/70
--- NOTE | 2018-12-01 13:00 | Pulmonology Progress Note ---
Assessment/Plan Problems: (1) Lower GI bleed (2) Hydronephrosis (3) Anemia (4) Bladder neoplasm (5) Chronic cerebrovascular accident (CVA) (6) Diabetes mellitus (7) Alzheimer's dementia (8) HTN (hypertension) Assessment/Plan no new complains nephrostomy in place. tolerated cystoscopy follow up with pathology, still not available. looks comfortable sliding scale monitor bp f/u urology recommendations prbc prn check H/H dvt prophylaxis. Subjective ROS Limited/Unobtainable: No Constitutional: Reports: no symptoms HEENT: Repors: no symptoms Respiratory: Reports: no symptoms Allergies: Coded Allergies: No Known Allergies (Unverified , 04/09/16) Objective Last 24 Hour Vital Signs Date Time Temp Pulse Resp B/P (MAP) Pulse Ox O2 Delivery O2 Flow Rate FiO2 12/01/18 09:00 Room Air 12/01/18 08:25 67 157/79 12/01/18 08:24 157/79 12/01/18 08:00 98.5 65 14 157/79 (105) 100 12/01/18 03:50 97.7 61 18 147/63 (91) 98 11/30/18 23:47 97.9 66 19 128/55 (79) 100 11/30/18 20:21 Room Air 11/30/18 19:57 98.2 82 18 119/55 (76) 98 11/30/18 17:02 134/59 11/30/18 16:19 97.9 62 18 134/59 (84) 98 Intake and Output 11/30/18 12/01/18 19:00 07:00 Intake Total 1685 ml 1180 ml Output Total 2000 ml 2800 ml Balance -315 ml -1620 ml Intake Oral 860 ml 320 ml IV Total 825 ml 860 ml Output Urine Total 1300 ml 1400 ml Other 700 ml 1400 ml Objective nephrostomy still draining blood tinged urine, but less than previous day General Appearance: WD/WN HEENT: normocephalic, atraumatic Respiratory/Chest: chest wall non-tender, lungs clear Cardiovascular: normal peripheral pulses, normal rate Abdomen: normal bowel sounds Genitourinary: normal external genitalia 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: 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, normal mood/affect Laboratory Tests 12/01/18 06:00: White Blood Count 7.2, Red Blood Count 3.35L, Hemoglobin 10.3L, Hematocrit 29.9L , Mean Corpuscular Volume 89, Mean Corpuscular Hemoglobin 30.6, Mean Corpuscular Hemoglobin Concent 34.3, Red Cell Distribution Width 10.9L, Platelet Count 159, Mean Platelet Volume 6.7, Neutrophils (%) (Auto) 73.6, Lymphocytes (%) (Auto) 16.9L, Monocytes (%) (Auto) 8.6, Eosinophils (%) (Auto) 0.1, Basophils (%) (Auto) 0.9, Sodium Level 141, Potassium Level 3.9, Chloride Level 106, Carbon Dioxide Level 29, Anion Gap 6, Blood Urea Nitrogen 11, Creatinine 1.0, Estimat Glomerular Filtration Rate , Glucose Level 118H, Calcium Level 8.9, Magnesium Level 1.8 Current Medications Medications (Trade) Dose Ordered Sig/Levi Route PRN Reason Start Time Stop Time Status Last Admin Dose Admin Acetaminophen (Tylenol) 650 mg Q4H PRN ORAL fever 11/22/18 13:30 12/22/18 13:29 Al Hydroxide/Mg Hydroxide (Mylanta II) 30 ml Q6H PRN ORAL dyspepsia 11/22/18 13:30 12/22/18 13:29 Amlodipine Besylate (Norvasc) 2.5 mg DAILY ORAL 11/29/18 09:00 12/29/18 08:59 12/01/18 08:25 Dextrose (Dextrose 50%) 25 ml Q30M PRN IV Hypoglycemia 11/22/18 13:30 12/22/18 13:23 11/22/18 17:21 Dextrose (Dextrose 50%) 50 ml Q30M PRN IV hypoglycemia 11/22/18 13:30 12/22/18 13:29 Dextrose/Sodium Chloride 1,000 ml @ 75 mls/hr [id number] IV 11/22/18 13:16 12/22/18 13:15 12/01/18 10:39 Diphenhydramine HCl (Benadryl) 25 mg Q6H PRN ORAL Itching/Pruritis 11/22/18 13:30 12/22/18 13:29 Finasteride (Proscar) 5 mg DAILY ORAL 11/22/18 19:45 12/22/18 19:44 12/01/18 08:25 Hydralazine HCl (Apresoline) 50 mg Q6H PRN ORAL SBP > 160 11/22/18 17:30 12/22/18 17:29 11/27/18 01:26 Insulin Aspart (NovoLOG) BEFORE MEALS AND HS SUBQ 11/22/18 16:30 12/22/18 16:29 12/01/18 11:59 Irbesartan (Avapro) 150 mg BID ORAL 11/25/18 09:00 12/25/18 08:59 12/01/18 08:24 Methimazole (Tapazole) 10 mg DAILY ORAL 11/29/18 09:00 12/24/18 08:59 12/01/18 08:24 Nateglinide (Starlix) 120 mg TIAC ORAL 11/29/18 11:30 12/24/18 11:29 12/01/18 11:58 Nitroglycerin (Ntg) 0.4 mg Q5M X 3 DOSES PRN SL Prn Chest Pain 11/22/18 13:30 12/22/18 13:29 Ondansetron HCl (Zofran) 4 mg Q6H PRN IVP Nausea & Vomiting 11/22/18 13:30 12/22/18 13:29 Pantoprazole (Protonix) 40 mg EVERY 12 HOURS ORAL 11/24/18 21:00 12/24/18 20:59 12/01/18 08:25 Polyethylene Glycol (Miralax) 17 gm HSPRN PRN ORAL Constipation 11/22/18 13:30 12/22/18 13:29 Sucralfate (Carafate) 1 gm FOUR TIMES A DAY ORAL 11/24/18 21:00 12/24/18 20:59 12/01/18 11:58 Tamsulosin HCl (Flomax) 0.4 mg BEDTIME ORAL 11/22/18 21:00 12/22/18 20:59 11/30/18 20:55 Temazepam (Restoril) 15 mg HSPRN PRN ORAL Insomnia 11/29/18 21:15 12/06/18 21:14 11/30/18 20:56 Og Hinkle MD Dec 01, 2018 13:00
--- NOTE | 2018-12-01 13:11 | NUR ---
SWALLOW/SPEECH THERAPY NOTE: WEEKLY SWALLOW/SPEECH THERAPY SUMMARY: SEE FOR DYSPHAGIA, SEE SWALLOW EVALUATION REPORT. UPDATES: per gi: (1) Lower GI bleed ICD Codes: K92.2 - Gastrointestinal hemorrhage, unspecified SNOMED: 31600745 (2) Anemia ICD Codes: D64.9 - Anemia, unspecified SNOMED: 904004826 (3) Bleeding hemorrhoid ICD Codes: K64.9 - Unspecified hemorrhoids SNOMED: 63555884 (4) Alzheimer's dementia ICD Codes: G30.9 - Alzheimer's disease, unspecified; F02.80 - Dementia in other diseases classified elsewhere without behavioral disturbance SNOMED: 02234320 (5) Diabetes mellitus ICD Codes: E11.9 - Type 2 diabetes mellitus without complications SNOMED: 21016512 Status: unchanged Status Narrative Discussed with Dr. Hernandez Assessment/Plan SUMMARY OF FINDINGS: 1. Gastritis and possibly gastric ulceration, status post biopsy. 2. One colonic polyp removed, see above for details. 3. Internal hemorrhoids. Occult blood stool negative RECOMMENDATIONS: Follow up pathology. >> H. pylori negative Resume diet. Follow with Urology given diagnosis of bladder cancer. monitor H&H, prn transfusions bowel regime ppi GOALS METS FOR INTAKE ON CURRENT [facility] SOFT FINELY CHOPPED AND THIN LIQUID DIET (100%) WITH ASSIST WITH MEALS. EDUCATED NEW STAFF (RN STUDENT OMA) IN POSTED ASPIRATION AND REFLUX PRECAUTIONS. PER RN STUDENT, PATIENT HAS INCONSISTENT COUGHING WITH THIN LIQUIDS VIA CUP (NOT STRAW). WILL DOWNGRADE TO NECTAR THICK LIQUIDS AT THIS TIME (THOUGH LUNGS WERE CLEAR ON 11/22/18 CXR). MOD BARIUM SWALLOW STUDY RECOMMENDED BUT NOT COMPLETED DUE TO SCHEDULE CONFLICTS (ORDER APPROVED BY [employer]). PLAN: COMPLETE MODIFIED BARIUM SWALLOW STUDY IP OR OP IF DC DOWNGRADE TO NECTAR THICK LIQUIDS (CONT WITH CURRENT DIET) USING POSTED ASPIRATION AND REFLUX PRECAUTIONS. NOT ABLE TO COMPLETE TODAY DUE TO SCHEDULE CONFLICTS. D/W DONELL HINSON AND DR MELCHOR
--- NOTE | 2018-12-01 13:19 | General Progress Note ---
Assessment/Plan Problem List: (1) Acute metabolic encephalopathy ICD Codes: G93.41 - Metabolic encephalopathy SNOMED: 15789521, 826573450 (2) Hyperthyroidism ICD Codes: E05.90 - Thyrotoxicosis, unspecified without thyrotoxic crisis or storm SNOMED: 16601068 (3) Diabetes mellitus ICD Codes: E11.9 - Type 2 diabetes mellitus without complications SNOMED: 00004756 (4) Bladder neoplasm ICD Codes: D49.4 - Neoplasm of unspecified behavior of bladder SNOMED: 147243768 (5) Hydronephrosis ICD Codes: N13.30 - Unspecified hydronephrosis SNOMED: 29811701 Assessment: thyroid US revealed normal anatomy without nodules hyperthyroidism is most likely due to Graves' and less likely due to Subacute Thyroiditis continue Tapazole 10 mg daily Tg Ab negative follow TSI, ATPO - pending repeat thyroid function continue Starlix 120 mg ac tid continue NISS ac / hs Subjective Allergies: Coded Allergies: No Known Allergies (Unverified , 04/09/16) All Systems: reviewed and negative except above Subjective events noted feeling better glucose values are stable Item Value Date Time Bedside Blood Glucose 198 mg/dl H 12/01/18 1159 Bedside Blood Glucose 139 mg/dl H 12/01/18 0613 Bedside Blood Glucose 128 mg/dl H 11/30/18 2122 Bedside Blood Glucose 191 mg/dl H 11/30/18 1631 Objective Last 24 Hour Vital Signs Date Time Temp Pulse Resp B/P (MAP) Pulse Ox O2 Delivery O2 Flow Rate FiO2 12/01/18 12:00 98.2 67 16 151/70 (97) 100 12/01/18 09:00 Room Air 12/01/18 08:25 67 157/79 12/01/18 08:24 157/79 12/01/18 08:00 98.5 65 14 157/79 (105) 100 12/01/18 03:50 97.7 61 18 147/63 (91) 98 11/30/18 23:47 97.9 66 19 128/55 (79) 100 11/30/18 20:21 Room Air 11/30/18 19:57 98.2 82 18 119/55 (76) 98 11/30/18 17:02 134/59 11/30/18 16:19 97.9 62 18 134/59 (84) 98 Intake and Output 11/30/18 12/01/18 18:59 06:59 Intake Total 1685 ml 1255 ml Output Total 2000 ml 2800 ml Balance -315 ml -1545 ml Intake Oral 860 ml 320 ml IV Total 825 ml 935 ml Output Urine Total 1300 ml 1400 ml Other 700 ml 1400 ml Laboratory Tests 12/01/18 06:00: White Blood Count 7.2, Red Blood Count 3.35L, Hemoglobin 10.3L, Hematocrit 29.9L , Mean Corpuscular Volume 89, Mean Corpuscular Hemoglobin 30.6, Mean Corpuscular Hemoglobin Concent 34.3, Red Cell Distribution Width 10.9L, Platelet Count 159, Mean Platelet Volume 6.7, Neutrophils (%) (Auto) 73.6, Lymphocytes (%) (Auto) 16.9L, Monocytes (%) (Auto) 8.6, Eosinophils (%) (Auto) 0.1, Basophils (%) (Auto) 0.9, Sodium Level 141, Potassium Level 3.9, Chloride Level 106, Carbon Dioxide Level 29, Anion Gap 6, Blood Urea Nitrogen 11, Creatinine 1.0, Estimat Glomerular Filtration Rate , Glucose Level 118H, Calcium Level 8.9, Magnesium Level 1.8 Height (Feet): 6 Height (Inches): 6.00 Weight (Pounds): 185 General Appearance: no apparent distress Neck: normal alignment Cardiovascular: normal rate Respiratory/Chest: lungs clear Abdomen: normal bowel sounds Edema: no edema noted Arm (L), no edema noted Arm (R), no edema noted Leg (L), no edema noted Leg (R), no edema noted Pedal (L), no edema noted Pedal (R), no edema noted Generalized Objective Current Medications Medications (Trade) Dose Ordered Sig/Levi Route PRN Reason Start Time Stop Time Status Last Admin Dose Admin Acetaminophen (Tylenol) 650 mg Q4H PRN ORAL fever 11/22/18 13:30 12/22/18 13:29 Al Hydroxide/Mg Hydroxide (Mylanta II) 30 ml Q6H PRN ORAL dyspepsia 11/22/18 13:30 12/22/18 13:29 Amlodipine Besylate (Norvasc) 2.5 mg DAILY ORAL 11/29/18 09:00 12/29/18 08:59 12/01/18 08:25 Dextrose (Dextrose 50%) 25 ml Q30M PRN IV Hypoglycemia 11/22/18 13:30 12/22/18 13:23 11/22/18 17:21 Dextrose (Dextrose 50%) 50 ml Q30M PRN IV hypoglycemia 11/22/18 13:30 12/22/18 13:29 Dextrose/Sodium Chloride 1,000 ml @ 75 mls/hr [id number] IV 11/22/18 13:16 12/22/18 13:15 12/01/18 10:39 Diphenhydramine HCl (Benadryl) 25 mg Q6H PRN ORAL Itching/Pruritis 11/22/18 13:30 12/22/18 13:29 Finasteride (Proscar) 5 mg DAILY ORAL 11/22/18 19:45 12/22/18 19:44 12/01/18 08:25 Hydralazine HCl (Apresoline) 50 mg Q6H PRN ORAL SBP > 160 11/22/18 17:30 12/22/18 17:29 11/27/18 01:26 Insulin Aspart (NovoLOG) BEFORE MEALS AND HS SUBQ 11/22/18 16:30 12/22/18 16:29 12/01/18 11:59 Irbesartan (Avapro) 150 mg BID ORAL 11/25/18 09:00 12/25/18 08:59 12/01/18 08:24 Methimazole (Tapazole) 10 mg DAILY ORAL 11/29/18 09:00 12/24/18 08:59 12/01/18 08:24 Nateglinide (Starlix) 120 mg TIAC ORAL 11/29/18 11:30 12/24/18 11:29 12/01/18 11:58 Nitroglycerin (Ntg) 0.4 mg Q5M X 3 DOSES PRN SL Prn Chest Pain 11/22/18 13:30 12/22/18 13:29 Ondansetron HCl (Zofran) 4 mg Q6H PRN IVP Nausea & Vomiting 11/22/18 13:30 12/22/18 13:29 Pantoprazole (Protonix) 40 mg EVERY 12 HOURS ORAL 11/24/18 21:00 12/24/18 20:59 12/01/18 08:25 Polyethylene Glycol (Miralax) 17 gm HSPRN PRN ORAL Constipation 11/22/18 13:30 12/22/18 13:29 Sucralfate (Carafate) 1 gm FOUR TIMES A DAY ORAL 11/24/18 21:00 12/24/18 20:59 12/01/18 11:58 Tamsulosin HCl (Flomax) 0.4 mg BEDTIME ORAL 11/22/18 21:00 12/22/18 20:59 11/30/18 20:55 Temazepam (Restoril) 15 mg HSPRN PRN ORAL Insomnia 11/29/18 21:15 12/06/18 21:14 11/30/18 20:56 Kashif Adorno MD Dec 01, 2018 13:19
--- NOTE | 2018-12-01 13:22 | Infectious Diseases Prog Note ---
Assessment/Plan Assessment/Plan Assessment: Hematochezia -11/24 SP EGD/Colonoscopy: gastritis, hemorrhoids L hydronephrosis/L Hydroureter 2ry to extensive bladder tumor -11/25 SP Cystoscopy, urethral calibration, transurethral resection of extensive bladder tumor with fulguration, and right retrograde pyelogram. -Findings: The patient had what appeared to be a large bladder tumor that involved most of the left side of the bladder extending posteriorly and completely obliterating the left ureteral orifice. I was unable to place a stent on the left side. - -CT abd/p: Limited assessment of the GI tract, due to lack of enteric contrast administration. Moderate left hydronephrosis and hydroureter. Hydroureter extends to the bladder, where there is asymmetric posterolateral wall thickening raises concern for neoplasm. Further evaluation with cystoscopy should be considered. There is also generalized wall thickening, possibly on the basis of cystitis or chronic bladder outlet obstruction. No definite findings to suggest etiology of stated clinical history of GI bleed. Cholelithiasis. Basilar pulmonary atelectasis and equivocal slight interstitial congestion. L1 vertebral body compression fracture deformity, age indeterminate. Consider MRI for further evaluation if this is clinically relevant Afebrile NO leukocytosis -CXR: No acute process Pyuria Funguria -u/a wbc 10-15, nit +, leuk est +3; ucx <10 yeast Encephalopathy -Head CT: Chronic and age-related changes is noted. Negative for acute intracranial bleed or mass effect. 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 Will continue to follow along with you Subjective Allergies: Coded Allergies: No Known Allergies (Unverified , 04/09/16) Subjective afebrile no leukocytosis now off abx Objective Vital Signs Last 24 Hour Vital Signs Date Time Temp Pulse Resp B/P (MAP) Pulse Ox O2 Delivery O2 Flow Rate FiO2 12/01/18 12:00 98.2 67 16 151/70 (97) 100 12/01/18 09:00 Room Air 12/01/18 08:25 67 157/79 12/01/18 08:24 157/79 12/01/18 08:00 98.5 65 14 157/79 (105) 100 12/01/18 03:50 97.7 61 18 147/63 (91) 98 11/30/18 23:47 97.9 66 19 128/55 (79) 100 11/30/18 20:21 Room Air 11/30/18 19:57 98.2 82 18 119/55 (76) 98 11/30/18 17:02 134/59 11/30/18 16:19 97.9 62 18 134/59 (84) 98 Height (Feet): 6 Height (Inches): 6.00 Weight (Pounds): 185 Objective GENERAL: NAD HEAD AND NECK: NCAT, MMM, EOMI LUNGS: CTAB, No W ABDOMEN: Soft, nondistended, and nontender. Positive bowel sounds. Heart: RRR, S1, S2 Laboratory Tests Test 12/01/18 06:00 White Blood Count 7.2 K/UL (4.8-10.8) Red Blood Count 3.35 M/UL (4.70-6.10) L Hemoglobin 10.3 G/DL (14.2-18.0) L Hematocrit 29.9 % (42.0-52.0) L Mean Corpuscular Volume 89 FL (80-99) Mean Corpuscular Hemoglobin 30.6 PG (27.0-31.0) Mean Corpuscular Hemoglobin Concent 34.3 G/DL (32.0-36.0) Red Cell Distribution Width 10.9 % (11.6-14.8) L Platelet Count 159 K/UL (150-450) Mean Platelet Volume 6.7 FL (6.5-10.1) Neutrophils (%) (Auto) 73.6 % (45.0-75.0) Lymphocytes (%) (Auto) 16.9 % (20.0-45.0) L Monocytes (%) (Auto) 8.6 % (1.0-10.0) Eosinophils (%) (Auto) 0.1 % (0.0-3.0) Basophils (%) (Auto) 0.9 % (0.0-2.0) Sodium Level 141 MMOL/L (136-145) Potassium Level 3.9 MMOL/L (3.5-5.1) Chloride Level 106 MMOL/L (98-107) Carbon Dioxide Level 29 MMOL/L (21-32) Anion Gap 6 mmol/L (5-15) Blood Urea Nitrogen 11 mg/dL (7-18) Creatinine 1.0 MG/DL (0.55-1.30) Estimat Glomerular Filtration Rate mL/min (>60) Glucose Level 118 MG/DL (74-106) H Calcium Level 8.9 MG/DL (8.5-10.1) Magnesium Level 1.8 MG/DL (1.8-2.4) Current Medications Medications (Trade) Dose Ordered Sig/Levi Route PRN Reason Start Time Stop Time Status Last Admin Dose Admin Acetaminophen (Tylenol) 650 mg Q4H PRN ORAL fever 11/22/18 13:30 12/22/18 13:29 Al Hydroxide/Mg Hydroxide (Mylanta II) 30 ml Q6H PRN ORAL dyspepsia 11/22/18 13:30 12/22/18 13:29 Amlodipine Besylate (Norvasc) 2.5 mg DAILY ORAL 11/29/18 09:00 12/29/18 08:59 12/01/18 08:25 Dextrose (Dextrose 50%) 25 ml Q30M PRN IV Hypoglycemia 11/22/18 13:30 12/22/18 13:23 11/22/18 17:21 Dextrose (Dextrose 50%) 50 ml Q30M PRN IV hypoglycemia 11/22/18 13:30 12/22/18 13:29 Dextrose/Sodium Chloride 1,000 ml @ 75 mls/hr [id number] IV 11/22/18 13:16 12/22/18 13:15 12/01/18 10:39 Diphenhydramine HCl (Benadryl) 25 mg Q6H PRN ORAL Itching/Pruritis 11/22/18 13:30 12/22/18 13:29 Finasteride (Proscar) 5 mg DAILY ORAL 11/22/18 19:45 12/22/18 19:44 12/01/18 08:25 Hydralazine HCl (Apresoline) 50 mg Q6H PRN ORAL SBP > 160 11/22/18 17:30 12/22/18 17:29 11/27/18 01:26 Insulin Aspart (NovoLOG) BEFORE MEALS AND HS SUBQ 11/22/18 16:30 12/22/18 16:29 12/01/18 11:59 Irbesartan (Avapro) 150 mg BID ORAL 11/25/18 09:00 12/25/18 08:59 12/01/18 08:24 Methimazole (Tapazole) 10 mg DAILY ORAL 11/29/18 09:00 12/24/18 08:59 12/01/18 08:24 Nateglinide (Starlix) 120 mg TIAC ORAL 11/29/18 11:30 12/24/18 11:29 12/01/18 11:58 Nitroglycerin (Ntg) 0.4 mg Q5M X 3 DOSES PRN SL Prn Chest Pain 11/22/18 13:30 12/22/18 13:29 Ondansetron HCl (Zofran) 4 mg Q6H PRN IVP Nausea & Vomiting 11/22/18 13:30 12/22/18 13:29 Pantoprazole (Protonix) 40 mg EVERY 12 HOURS ORAL 11/24/18 21:00 12/24/18 20:59 12/01/18 08:25 Polyethylene Glycol (Miralax) 17 gm HSPRN PRN ORAL Constipation 11/22/18 13:30 12/22/18 13:29 Sucralfate (Carafate) 1 gm FOUR TIMES A DAY ORAL 11/24/18 21:00 12/24/18 20:59 12/01/18 11:58 Tamsulosin HCl (Flomax) 0.4 mg BEDTIME ORAL 11/22/18 21:00 12/22/18 20:59 11/30/18 20:55 Temazepam (Restoril) 15 mg HSPRN PRN ORAL Insomnia 11/29/18 21:15 12/06/18 21:14 11/30/18 20:56 Tawny Darby M.D. Dec 01, 2018 13:22
--- NOTE | 2018-12-01 14:54 | NUR ---
SWALLOW/SPEECH THERAPY NOTE: MODIFIED BARIUM SWALLOW STUDY COMPLETED, SEE FULL REPORT TO FOLLOW. INITIAL IMPRESSIONS: MILD-MODERATE ORAL PREP AND OROPHARYNGEAL DYSPHAGIA WITH INCREASED TRANSIT TIMES OVERALL DUE TO SENSORIMOTOR DEFICITS. NO ASPIRATION BUT HAS HIGH RISK PARTICULARLY IF PRECAUTIONS NOT USED. HIGHER ASPIRATION RISK WITH THIN LIQUIDS. LESS EFFICIENT AND HIGHER ASPIRATION RISK WITH MASTICATED SOLIDS (COOKIE). PLAN: CONTINUE WITH CURRENT [facility] SOFT FINELY CHOPPED DIET (DISLIKES GROUND) AND NECTAR THICK LIQUIDS FOR NOW WITH UPDATED AND POSTED ASPIRATION PRECAUTIONS. D/W PATIENT AND RN (SRAVAN) AND LEFT MESSAGE GI BELLY DANCER (NOEL)
[2018-12-01 16:00] VITALS: BP 128/56
--- NOTE | 2018-12-01 19:25 | Internal Med Progress Note ---
Subjective Date of Service: Dec 01, 2018 Physician Name Jean-Claude Peter Attending Physician Jaziel Lowe MD Current Medications Medications (Trade) Dose Ordered Sig/Levi Route PRN Reason Start Time Stop Time Status Last Admin Dose Admin Acetaminophen (Tylenol) 650 mg Q4H PRN ORAL fever 11/22/18 13:30 12/22/18 13:29 Al Hydroxide/Mg Hydroxide (Mylanta II) 30 ml Q6H PRN ORAL dyspepsia 11/22/18 13:30 12/22/18 13:29 Amlodipine Besylate (Norvasc) 2.5 mg DAILY ORAL 11/29/18 09:00 12/29/18 08:59 12/01/18 08:25 Dextrose (Dextrose 50%) 25 ml Q30M PRN IV Hypoglycemia 11/22/18 13:30 12/22/18 13:23 11/22/18 17:21 Dextrose (Dextrose 50%) 50 ml Q30M PRN IV hypoglycemia 11/22/18 13:30 12/22/18 13:29 Dextrose/Sodium Chloride 1,000 ml @ 75 mls/hr [id number] IV 11/22/18 13:16 12/22/18 13:15 12/01/18 10:39 Diphenhydramine HCl (Benadryl) 25 mg Q6H PRN ORAL Itching/Pruritis 11/22/18 13:30 12/22/18 13:29 Finasteride (Proscar) 5 mg DAILY ORAL 11/22/18 19:45 12/22/18 19:44 12/01/18 08:25 Hydralazine HCl (Apresoline) 50 mg Q6H PRN ORAL SBP > 160 11/22/18 17:30 12/22/18 17:29 11/27/18 01:26 Insulin Aspart (NovoLOG) BEFORE MEALS AND HS SUBQ 11/22/18 16:30 12/22/18 16:29 12/01/18 16:56 Irbesartan (Avapro) 150 mg BID ORAL 11/25/18 09:00 12/25/18 08:59 12/01/18 16:53 Methimazole (Tapazole) 10 mg DAILY ORAL 11/29/18 09:00 12/24/18 08:59 12/01/18 08:24 Nateglinide (Starlix) 120 mg TIAC ORAL 11/29/18 11:30 12/24/18 11:29 12/01/18 16:53 Nitroglycerin (Ntg) 0.4 mg Q5M X 3 DOSES PRN SL Prn Chest Pain 11/22/18 13:30 12/22/18 13:29 Ondansetron HCl (Zofran) 4 mg Q6H PRN IVP Nausea & Vomiting 11/22/18 13:30 12/22/18 13:29 Pantoprazole (Protonix) 40 mg EVERY 12 HOURS ORAL 11/24/18 21:00 12/24/18 20:59 12/01/18 08:25 Polyethylene Glycol (Miralax) 17 gm HSPRN PRN ORAL Constipation 11/22/18 13:30 12/22/18 13:29 Sucralfate (Carafate) 1 gm FOUR TIMES A DAY ORAL 11/24/18 21:00 12/24/18 20:59 12/01/18 17:03 Tamsulosin HCl (Flomax) 0.4 mg BEDTIME ORAL 11/22/18 21:00 12/22/18 20:59 11/30/18 20:55 Temazepam (Restoril) 15 mg HSPRN PRN ORAL Insomnia 11/29/18 21:15 12/06/18 21:14 11/30/18 20:56 Allergies: Coded Allergies: No Known Allergies (Unverified , 04/09/16) ROS Limited/Unobtainable: No Constitutional: Reports: no symptoms HEENT: Reports: no symptoms Cardiovascular: Reports: no symptoms Respiratory: Reports: no symptoms Gastrointestinal/Abdominal: Reports: no symptoms Genitourinary: Reports: no symptoms 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: Reports: no symptoms Subjective 83 YO M admitted with gastrointestinal hemorrhage. S/P endoscopy and colonoscopy 11/24/18. S/P transurethral bladder tumor resection 11/24/18. Cover for Lon Lowe Objective Last Vital Signs Date Time Temp Pulse Resp B/P (MAP) Pulse Ox O2 Delivery O2 Flow Rate FiO2 12/01/18 16:53 128/56 12/01/18 16:00 98.8 62 18 98 12/01/18 09:00 Room Air 11/26/18 10:12 4.0 Laboratory Tests Test 12/01/18 06:00 White Blood Count 7.2 K/UL (4.8-10.8) Red Blood Count 3.35 M/UL (4.70-6.10) L Hemoglobin 10.3 G/DL (14.2-18.0) L Hematocrit 29.9 % (42.0-52.0) L Mean Corpuscular Volume 89 FL (80-99) Mean Corpuscular Hemoglobin 30.6 PG (27.0-31.0) Mean Corpuscular Hemoglobin Concent 34.3 G/DL (32.0-36.0) Red Cell Distribution Width 10.9 % (11.6-14.8) L Platelet Count 159 K/UL (150-450) Mean Platelet Volume 6.7 FL (6.5-10.1) Neutrophils (%) (Auto) 73.6 % (45.0-75.0) Lymphocytes (%) (Auto) 16.9 % (20.0-45.0) L Monocytes (%) (Auto) 8.6 % (1.0-10.0) Eosinophils (%) (Auto) 0.1 % (0.0-3.0) Basophils (%) (Auto) 0.9 % (0.0-2.0) Sodium Level 141 MMOL/L (136-145) Potassium Level 3.9 MMOL/L (3.5-5.1) Chloride Level 106 MMOL/L (98-107) Carbon Dioxide Level 29 MMOL/L (21-32) Anion Gap 6 mmol/L (5-15) Blood Urea Nitrogen 11 mg/dL (7-18) Creatinine 1.0 MG/DL (0.55-1.30) Estimat Glomerular Filtration Rate mL/min (>60) Glucose Level 118 MG/DL (74-106) H Calcium Level 8.9 MG/DL (8.5-10.1) Magnesium Level 1.8 MG/DL (1.8-2.4) Thyroid Stimulating Hormone (TSH) 0.046 uiU/mL (0.358-3.740) Free Thyroxine 1.04 NG/DL (0.76-1.46) Intake and Output 11/30/18 12/01/18 18:59 06:59 Intake Total 1685 ml 1255 ml Output Total 2000 ml 2800 ml Balance -315 ml -1545 ml Intake Oral 860 ml 320 ml IV Total 825 ml 935 ml Output Urine Total 1300 ml 1400 ml Other 700 ml 1400 ml Objective PHYSICAL EXAMINATION: GENERAL: The patient is awake, alert, responsive, very pleasant, but forgetful. HEAD AND NECK: Pupils are reactive to light. Extraocular movements intact. Neck was supple. No JVD. LUNGS: Good air entry. No wheezing or rales. Left side of the chest has a pacemaker. ABDOMEN: Soft, nondistended, and nontender. Positive bowel sounds. EXTREMITIES: No cyanosis, clubbing, or edema. NEUROLOGIC: FISCAL ACCOUNTING CLERK II through XII grossly intact. Motor is 5/5 in all extremities. Gait was not assessed due to the patient's status. RECTAL/GENITOURINARY: Refused and deferred. Assessment/Plan Assessment/Plan ASSESSMENT: 1. Gastrointestinal bleed. 2. Anemia possible due to acute blood loss. 3. Hypokalemia. 4. Acute urinary tract infection. 5. Moderate left hydronephrosis with hydroureter. 6. Cardiac arrhythmia status post pacemaker. 7. Diabetes type 2. 8. Hypertension. 9. Gastritis 10. hemorrhoids 11. hematuria-Bladder cancer PLAN: 1. Admit the patient to medical floor. 2. We will follow up with the laboratory. 3. Clear liquid diet. 4. Gastrointestinal consultation with Dr. Hernandez. 5. Code status is Full Code at this time. 6. See Urology consultation, Dr. Allen S/P transurethral resection bladder tumor High grade urothelial carcinoma 7. S/P Esophagogastroduodenoscopy and colonoscopy 11/24/18. 8. We will follow up with urine culture and Cardiology consultation with Dr. Nj Valenzuela. 9. Protonix 40 mg BID and carafate 1 gm QID 10 Await Oncology consult Jean-Claude Peter MD Dec 01, 2018 19:25
--- NOTE | 2018-12-01 19:27 | NUR ---
HAND-OFF: Report given to DONELL Haro.
--- NOTE | 2018-12-01 19:30 | NUR ---
NURSE NOTES: Received report from DONELL Quinones. Patient awake and alert. On room air. No signs of labored breathing or distress. IV intact, patent, and infusing fluids. Left nephrostomy draining hematuria, MD aware. Bed in lowest position with call light in reach. Will continue with plan of care.
[2018-12-01 20:00] VITALS: BP 139/63
[2018-12-01] MEDS: Tamsulosin 0.4mg cap ORAL SCH (20:49)
[2018-12-01] MEDS: Morphine Sulfate 2mg/ml Inj(IV/IM USE ONLY) IVP PRN (23:34)
[2018-12-02] VITALS: BP 143/63
[2018-12-02] MEDS: D5 1/2NS 1,000 ML IV SCH ×2 (02:09→13:23)
[2018-12-02 04:00] VITALS: BP 141/64
--- NOTE | 2018-12-02 06:29 | General Progress Note ---
Assessment/Plan Problem List: (1) Acute metabolic encephalopathy ICD Codes: G93.41 - Metabolic encephalopathy SNOMED: 72743211, 577810781 (2) Hyperthyroidism ICD Codes: E05.90 - Thyrotoxicosis, unspecified without thyrotoxic crisis or storm SNOMED: 31638487 (3) Diabetes mellitus ICD Codes: E11.9 - Type 2 diabetes mellitus without complications SNOMED: 62040392 (4) Bladder neoplasm ICD Codes: D49.4 - Neoplasm of unspecified behavior of bladder SNOMED: 157300661 (5) Hydronephrosis ICD Codes: N13.30 - Unspecified hydronephrosis SNOMED: 01142507 Status: unchanged Assessment/Plan: thyroid function shows improvement TSI pending continue Tapazole 10 mg daily continue Starlix 120 mg ac tid continue NISS ac / hs Subjective Allergies: Coded Allergies: No Known Allergies (Unverified , 04/09/16) All Systems: reviewed and negative except above Subjective events noted Item Value Date Time Bedside Blood Glucose 169 mg/dl H 12/01/18 2050 Bedside Blood Glucose 185 mg/dl H 12/01/18 1656 Bedside Blood Glucose 198 mg/dl H 12/01/18 1159 Bedside Blood Glucose 139 mg/dl H 12/01/18 0613 Objective Last 24 Hour Vital Signs Date Time Temp Pulse Resp B/P (MAP) Pulse Ox O2 Delivery O2 Flow Rate FiO2 12/02/18 04:00 97.7 78 18 141/64 (89) 97 12/02/18 00:00 98.0 66 18 143/63 (89) 99 12/01/18 21:00 Room Air 12/01/18 20:00 98.3 70 18 139/63 (88) 98 12/01/18 16:53 128/56 12/01/18 16:00 98.8 62 18 128/56 (80) 98 12/01/18 12:00 97.7 67 16 151/70 (97) 100 12/01/18 09:00 Room Air 12/01/18 08:25 67 157/79 12/01/18 08:24 157/79 12/01/18 08:00 98.5 65 14 157/79 (105) 100 Intake and Output 12/01/18 12/02/18 19:00 07:00 Intake Total 1380 ml 375 ml Output Total 100 ml 800 ml Balance 1280 ml -425 ml Intake Oral 480 ml IV Total 900 ml 375 ml Output Urine Total 100 ml 800 ml # Voids 1 Height (Feet): 6 Height (Inches): 6.00 Weight (Pounds): 185 General Appearance: no apparent distress Neck: normal alignment Cardiovascular: normal rate Respiratory/Chest: lungs clear Abdomen: normal bowel sounds Pelvis: normal external exam Objective Current Medications Medications (Trade) Dose Ordered Sig/Levi Route PRN Reason Start Time Stop Time Status Last Admin Dose Admin Acetaminophen (Tylenol) 650 mg Q4H PRN ORAL fever 11/22/18 13:30 12/22/18 13:29 Al Hydroxide/Mg Hydroxide (Mylanta II) 30 ml Q6H PRN ORAL dyspepsia 11/22/18 13:30 12/22/18 13:29 Amlodipine Besylate (Norvasc) 2.5 mg DAILY ORAL 11/29/18 09:00 12/29/18 08:59 12/01/18 08:25 Dextrose (Dextrose 50%) 25 ml Q30M PRN IV Hypoglycemia 11/22/18 13:30 12/22/18 13:23 11/22/18 17:21 Dextrose (Dextrose 50%) 50 ml Q30M PRN IV hypoglycemia 11/22/18 13:30 12/22/18 13:29 Dextrose/Sodium Chloride 1,000 ml @ 75 mls/hr [id number] IV 11/22/18 13:16 12/22/18 13:15 12/02/18 02:09 Diphenhydramine HCl (Benadryl) 25 mg Q6H PRN ORAL Itching/Pruritis 11/22/18 13:30 12/22/18 13:29 Finasteride (Proscar) 5 mg DAILY ORAL 11/22/18 19:45 12/22/18 19:44 12/01/18 08:25 Hydralazine HCl (Apresoline) 50 mg Q6H PRN ORAL SBP > 160 11/22/18 17:30 12/22/18 17:29 11/27/18 01:26 Insulin Aspart (NovoLOG) BEFORE MEALS AND HS SUBQ 11/22/18 16:30 12/22/18 16:29 12/01/18 20:50 Irbesartan (Avapro) 150 mg BID ORAL 11/25/18 09:00 12/25/18 08:59 12/01/18 16:53 Methimazole (Tapazole) 10 mg DAILY ORAL 11/29/18 09:00 12/24/18 08:59 12/01/18 08:24 Morphine Sulfate (Morphine Sulfate) 2 mg Q4H PRN IVP Severe Pain (Pain Scale 7-10) 12/01/18 23:15 12/08/18 23:14 12/01/18 23:34 Nateglinide (Starlix) 120 mg TIAC ORAL 11/29/18 11:30 12/24/18 11:29 12/01/18 16:53 Nitroglycerin (Ntg) 0.4 mg Q5M X 3 DOSES PRN SL Prn Chest Pain 11/22/18 13:30 12/22/18 13:29 Ondansetron HCl (Zofran) 4 mg Q6H PRN IVP Nausea & Vomiting 11/22/18 13:30 12/22/18 13:29 Pantoprazole (Protonix) 40 mg EVERY 12 HOURS ORAL 11/24/18 21:00 12/24/18 20:59 12/01/18 20:49 Polyethylene Glycol (Miralax) 17 gm HSPRN PRN ORAL Constipation 11/22/18 13:30 12/22/18 13:29 Sucralfate (Carafate) 1 gm FOUR TIMES A DAY ORAL 11/24/18 21:00 12/24/18 20:59 12/01/18 20:49 Tamsulosin HCl (Flomax) 0.4 mg BEDTIME ORAL 11/22/18 21:00 12/22/18 20:59 12/01/18 20:49 Temazepam (Restoril) 15 mg HSPRN PRN ORAL Insomnia 11/29/18 21:15 12/06/18 21:14 12/02/18 00:27 Kashif Adorno MD Dec 02, 2018 06:29
[2018-12-02] MEDS: NovoLOG Insulin Flexpen SUBQ SCH ×4 (06:38→20:48)
[2018-12-02 07:25] LABS: ANION GAP 7 mmol/L (5-15); BLOOD UREA NITROGEN 12 mg/dL (7-18); CALCIUM 9.2 MG/DL (8.5-10.1); CARBON DIOXIDE 28 MMOL/L (21-32); CHLORIDE 105 MMOL/L (98-107); POTASSIUM 3.8 MMOL/L (3.5-5.1); SODIUM 140 MMOL/L (136-145)
[2018-12-02 07:31] LABS: BASOPHILS % (AUTO) 0.8 % (0.0-2.0); HEMATOCRIT 28.7 % (42.0-52.0); HEMOGLOBIN 9.9 G/DL (14.2-18.0); LYMPHOCYTES % (AUTO) 16.8 % (20.0-45.0); MEAN CORPUSCULAR VOLUME 89 FL (80-99); MONOCYTES % (AUTO) 7.1 % (1.0-10.0); NEUTROPHILS % (AUTO) 75.2 % (45.0-75.0); PLATELET COUNT 165 K/UL (150-450); RED BLOOD COUNT 3.22 M/UL (4.70-6.10); RED CELL DISTRIBUTION WIDTH 10.9 % (11.6-14.8); WHITE BLOOD COUNT 8.6 K/UL (4.8-10.8)
--- NOTE | 2018-12-02 07:44 | NUR ---
HAND-OFF: Report given to DONELL Henderson.
[2018-12-02 08:00] VITALS: BP 138/68
--- NOTE | 2018-12-02 08:00 | NUR ---
NURSE NOTES: Received patient in bed, resting and alert to name and place. Patient denies pain. No signs of respiratory distress. IV intact. L nephrostomy intact and draining sanguinous fluid. Bed in lowest position, call light within reach. Will continue to monitor.
[2018-12-02] MEDS: Irbesartan 150mg tablet ORAL SCH ×2 (08:46→17:22)
[2018-12-02] MEDS: Sucralfate 1gm tab ORAL SCH ×4 (08:46→20:45)
--- NOTE | 2018-12-02 10:34 | GI Progress Note ---
Assessment/Plan Problems: (1) Lower GI bleed ICD Codes: K92.2 - Gastrointestinal hemorrhage, unspecified SNOMED: 11709618 (2) Anemia ICD Codes: D64.9 - Anemia, unspecified SNOMED: 918553692 (3) Bleeding hemorrhoid ICD Codes: K64.9 - Unspecified hemorrhoids SNOMED: 42733579 (4) Alzheimer's dementia ICD Codes: G30.9 - Alzheimer's disease, unspecified; F02.80 - Dementia in other diseases classified elsewhere without behavioral disturbance SNOMED: 30274455 (5) Diabetes mellitus ICD Codes: E11.9 - Type 2 diabetes mellitus without complications SNOMED: 61574361 Status: stable Status Narrative Discussed with Dr. Hernandez. Assessment/Plan SUMMARY OF FINDINGS: 1. Gastritis and possibly gastric ulceration, status post biopsy. 2. One colonic polyp removed, see above for details. 3. Internal hemorrhoids. Occult blood stool negative RECOMMENDATIONS: Follow up pathology. >> H. pylori negative Resume diet. Follow with Urology given diagnosis of bladder cancer. monitor H&H, prn transfusions bowel regime ppi fu labs The patient was seen and examined at bedside and all new and available data was reviewed in the patients chart. I agree with the above findings, impression and plan. (Patient seen earlier today. Signature stamp does not reflect patient encounter time.). - Prince Hernandez MD Subjective Subjective Limited Objective Last 24 Hour Vital Signs Date Time Temp Pulse Resp B/P (MAP) Pulse Ox O2 Delivery O2 Flow Rate FiO2 12/02/18 08:46 80 138/68 12/02/18 08:46 138/68 12/02/18 08:00 97.9 80 18 138/68 (91) 98 12/02/18 04:00 97.7 78 18 141/64 (89) 97 12/02/18 00:00 98.0 66 18 143/63 (89) 99 12/01/18 21:00 Room Air 12/01/18 20:00 98.3 70 18 139/63 (88) 98 12/01/18 16:53 128/56 12/01/18 16:00 98.8 62 18 128/56 (80) 98 12/01/18 12:00 97.7 67 16 151/70 (97) 100 Intake and Output 12/01/18 12/02/18 19:00 07:00 Intake Total 1380 ml 675 ml Output Total 100 ml 1525 ml Balance 1280 ml -850 ml Intake Oral 480 ml IV Total 900 ml 675 ml Output Urine Total 100 ml 800 ml Other 725 ml # Voids 1 Laboratory Tests Test 12/02/18 04:50 White Blood Count 8.6 K/UL (4.8-10.8) Red Blood Count 3.22 M/UL (4.70-6.10) L Hemoglobin 9.9 G/DL (14.2-18.0) L Hematocrit 28.7 % (42.0-52.0) L Mean Corpuscular Volume 89 FL (80-99) Mean Corpuscular Hemoglobin 30.8 PG (27.0-31.0) Mean Corpuscular Hemoglobin Concent 34.5 G/DL (32.0-36.0) Red Cell Distribution Width 10.9 % (11.6-14.8) L Platelet Count 165 K/UL (150-450) Mean Platelet Volume 6.1 FL (6.5-10.1) L Neutrophils (%) (Auto) 75.2 % (45.0-75.0) H Lymphocytes (%) (Auto) 16.8 % (20.0-45.0) L Monocytes (%) (Auto) 7.1 % (1.0-10.0) Eosinophils (%) (Auto) 0.0 % (0.0-3.0) Basophils (%) (Auto) 0.8 % (0.0-2.0) Sodium Level 140 MMOL/L (136-145) Potassium Level 3.8 MMOL/L (3.5-5.1) Chloride Level 105 MMOL/L (98-107) Carbon Dioxide Level 28 MMOL/L (21-32) Anion Gap 7 mmol/L (5-15) Blood Urea Nitrogen 12 mg/dL (7-18) Creatinine 1.0 MG/DL (0.55-1.30) Estimat Glomerular Filtration Rate mL/min (>60) Glucose Level 122 MG/DL (74-106) H Calcium Level 9.2 MG/DL (8.5-10.1) Height (Feet): 6 Height (Inches): 6.00 Weight (Pounds): 185 General Appearance: no apparent distress, thin Cardiovascular: normal rate Respiratory/Chest: normal breath sounds, no respiratory distress Abdominal Exam: normal bowel sounds, non tender, soft Extremities: non-tender Osiel Vega NP Dec 02, 2018 10:34
--- NOTE | 2018-12-02 10:35 | Urology Progress Note ---
Assessment/Plan Status: stable Assessment/Plan: 1. Left hydronephrosis. 2. Hematuria. 3. Pyuria. 4. Proteinuria. 5. Benign prostatic hypertrophy. 6. Incontinence. 7. Neurogenic bladder. 8. Cystitis. 9. Bladder cancer. 10. POD # 8, cysto/TURBT monitor clinically hernandez out and voiding left hydro secondary to bladder tumor left nephrostomy placed 11/26 hand irrigated and do PRN unable to place antegrade ureteral stent, reattempt later? flomax and proscar monitor for voiding and reinsert hernandez PRN s/p diflucan med onc eval Subjective Allergies: Coded Allergies: No Known Allergies (Unverified , 04/09/16) Subjective all noted, feels fair, hernandez removed yest, has been voiding Objective Last 24 Hour Vital Signs Date Time Temp Pulse Resp B/P (MAP) Pulse Ox O2 Delivery O2 Flow Rate FiO2 12/02/18 08:46 80 138/68 12/02/18 08:46 138/68 12/02/18 08:00 97.9 80 18 138/68 (91) 98 12/02/18 04:00 97.7 78 18 141/64 (89) 97 12/02/18 00:00 98.0 66 18 143/63 (89) 99 12/01/18 21:00 Room Air 12/01/18 20:00 98.3 70 18 139/63 (88) 98 12/01/18 16:53 128/56 12/01/18 16:00 98.8 62 18 128/56 (80) 98 12/01/18 12:00 97.7 67 16 151/70 (97) 100 Intake and Output 12/01/18 12/02/18 19:00 07:00 Intake Total 1380 ml 675 ml Output Total 100 ml 1525 ml Balance 1280 ml -850 ml Intake Oral 480 ml IV Total 900 ml 675 ml Output Urine Total 100 ml 800 ml Other 725 ml # Voids 1 Microbiology Date/Time Source Procedure Growth Status 11/22/18 12:20 Nasal Nares MRSA Culture - Final NO METHICILLIN RESISTANT STAPH AUREUS... Complete 11/22/18 11:15 Urine,Clean Catch Urine Culture - Final YEAST Complete 11/22/18 12:20 Rectal Mucosa VRE Culture - Final NO VANCOMYCIN RESISTANT ENTEROCOCCUS ... Complete 11/22/18 12:20 Rectal Mucosa - Final NO CARBAPENEM-RESISTANT ENTEROBACTERI... Complete Current Medications Medications (Trade) Dose Ordered Sig/Levi Route PRN Reason Start Time Stop Time Status Last Admin Dose Admin Acetaminophen (Tylenol) 650 mg Q4H PRN ORAL fever 11/22/18 13:30 12/22/18 13:29 Al Hydroxide/Mg Hydroxide (Mylanta II) 30 ml Q6H PRN ORAL dyspepsia 11/22/18 13:30 12/22/18 13:29 Amlodipine Besylate (Norvasc) 2.5 mg DAILY ORAL 11/29/18 09:00 12/29/18 08:59 12/02/18 08:46 Dextrose (Dextrose 50%) 25 ml Q30M PRN IV Hypoglycemia 11/22/18 13:30 12/22/18 13:23 11/22/18 17:21 Dextrose (Dextrose 50%) 50 ml Q30M PRN IV hypoglycemia 11/22/18 13:30 12/22/18 13:29 Dextrose/Sodium Chloride 1,000 ml @ 75 mls/hr [id number] IV 11/22/18 13:16 12/22/18 13:15 12/02/18 02:09 Diphenhydramine HCl (Benadryl) 25 mg Q6H PRN ORAL Itching/Pruritis 11/22/18 13:30 12/22/18 13:29 Finasteride (Proscar) 5 mg DAILY ORAL 11/22/18 19:45 12/22/18 19:44 12/02/18 08:46 Hydralazine HCl (Apresoline) 50 mg Q6H PRN ORAL SBP > 160 11/22/18 17:30 12/22/18 17:29 11/27/18 01:26 Insulin Aspart (NovoLOG) BEFORE MEALS AND HS SUBQ 11/22/18 16:30 12/22/18 16:29 12/02/18 06:38 Irbesartan (Avapro) 150 mg BID ORAL 11/25/18 09:00 12/25/18 08:59 12/02/18 08:46 Methimazole (Tapazole) 10 mg DAILY ORAL 11/29/18 09:00 12/24/18 08:59 12/02/18 08:46 Morphine Sulfate (Morphine Sulfate) 2 mg Q4H PRN IVP Severe Pain (Pain Scale 7-10) 12/01/18 23:15 12/08/18 23:14 12/01/18 23:34 Nateglinide (Starlix) 120 mg TIAC ORAL 11/29/18 11:30 12/24/18 11:29 12/02/18 06:36 Nitroglycerin (Ntg) 0.4 mg Q5M X 3 DOSES PRN SL Prn Chest Pain 11/22/18 13:30 12/22/18 13:29 Ondansetron HCl (Zofran) 4 mg Q6H PRN IVP Nausea & Vomiting 11/22/18 13:30 12/22/18 13:29 Pantoprazole (Protonix) 40 mg EVERY 12 HOURS ORAL 11/24/18 21:00 12/24/18 20:59 12/02/18 08:46 Polyethylene Glycol (Miralax) 17 gm HSPRN PRN ORAL Constipation 11/22/18 13:30 12/22/18 13:29 Sucralfate (Carafate) 1 gm FOUR TIMES A DAY ORAL 11/24/18 21:00 12/24/18 20:59 12/02/18 08:46 Tamsulosin HCl (Flomax) 0.4 mg BEDTIME ORAL 11/22/18 21:00 12/22/18 20:59 12/01/18 20:49 Temazepam (Restoril) 15 mg HSPRN PRN ORAL Insomnia 11/29/18 21:15 12/06/18 21:14 12/02/18 00:27 Laboratory Tests 12/02/18 04:50: White Blood Count 8.6, Red Blood Count 3.22L, Hemoglobin 9.9L, Hematocrit 28.7L , Mean Corpuscular Volume 89, Mean Corpuscular Hemoglobin 30.8, Mean Corpuscular Hemoglobin Concent 34.5, Red Cell Distribution Width 10.9L, Platelet Count 165, Mean Platelet Volume 6.1L, Neutrophils (%) (Auto) 75.2H, Lymphocytes (%) (Auto) 16.8L, Monocytes (%) (Auto) 7.1, Eosinophils (%) (Auto) 0.0, Basophils (%) (Auto) 0.8, Sodium Level 140, Potassium Level 3.8, Chloride Level 105, Carbon Dioxide Level 28, Anion Gap 7, Blood Urea Nitrogen 12, Creatinine 1.0, Estimat Glomerular Filtration Rate , Glucose Level 122H, Calcium Level 9.2 Height (Feet): 6 Height (Inches): 6.00 Weight (Pounds): 185 Objective exam stable left nephrostomy blood-tinged final path noted Macho Allen MD Dec 02, 2018 10:35
--- NOTE | 2018-12-02 11:26 | NUR ---
SWALLOW/SPEECH THERAPY NOTE: SWALLOW STATUS: SEE NOTE IN ST [facility] ACTIVITY SECTION. COMPLETED MOD BARIUM SWALLOW STUDY REPORT AND COMPLETED EX AIRWAY PROTECTION AND LIP CLOSURE EXERCISE/STRATEGIES WITH PO TRIALS OF THIN LIQUIDS. SPEECH EVAL COMPLETED, SEE REPORT IN ST CARE ACTIVITY SECTION. THIS 83 Y.O.M. DEMONSTRATES THE FOLLOWING: SLOWER TONGUE MOVEMENTS, REDUCED LIP CLOSURE ON LEFT AND MID LIPS (WITH CUP DRINKING), HAS LOWER LIP AND TONGUE/JAW TREMORS. MODERATE DYSPHONIA (VOICE LOUDNESS REDUCED BUT QUALITY IS CLEAR). MILD-MODERATE FLACCID DYSARTHRIA WITH POOR SPEECH INTELLIGIBILITY AT THE SENTENCE LEVEL. REQUIRES REPETITION 80% OF THE TIME EVEN IN CONTEXT AND DUE TO REDUCED ARTICULATORY PRECISION AND VOICE LOUDNESS. SIMPLE RECEPTIVE/EXPRESSIVE LANGUAGE SKILLS ARE SLOWER BUT GROSSLY FUNCTIONAL FOR BASIC NEEDS. POOR RECENT MEMORY (NEW INFORMATION) AND ORIENTATION (TIME/PLACE/SITUATION) SKILLS. RECOMMENDATIONS: SKILLED SPEECH/COG-COM THERAY IN IP OR D/C SETTING CONSIDER [facility] VOICE THERAPY PROGRAM SEE REPORT FOR GOALS D/W STAFF AND PATIENT Addendum: 12/02/18 at 1128 by VALERIE SHETH TOP POLISHER CONTINUE WITH PLAN OF CARE IN MOD BARIUM SWALLOW REPORT AND TX NOTE. Addendum: 12/02/18 at 1135 by VALERIE SHETH TOP POLISHER SPEECH STATUS: SEE SPEECH EVALUATION REPORT FOR RECOMMENDATIONS AND GOALS SWALLOW STATUS: REVIEWED VIDEO IMAGES OF MOD BARIUM SWALLOW STUDY AND COMPLETED REPORT. PO TRIALS WITH THIN LIQUIDS AND CUP, HAD ORAL SPILLAGE MID AND LEFT SIDE OF MOUTH (50% OF THE TIME) NEW STG: PATIENT WILL SQUEEZE LIPS TOGETHER (MOSTLY MID/LEFT SIDE) TO ELIMINATE ORAL SPILLAGE DRINKING FROM CUP 9/10 TIMES. TODAY PATIENT TRAINED IN EFFORTFUL BREATH HOLD WITH THIN LIQUIDS ONE SIP AT A TIME WITH CUP WITHOUT OVERT ASPIRATION. STG: PT WILL USE EFFORTFUL BREATH HOLD WITH THIN LIQUIDS VIA CUP ONE SIP AT A TIME W/O OVERT ASP OVER 3 TX SESSIONS. EDUCATED/TRAINED NEW STAFF IN POSTED COMMUNICATION TIPS AND POSTED ASP PRECAUTIONS. PLAN: CONTINUE WITH PLANS OF CARE NOTED IN REPORTS.
--- NOTE | 2018-12-02 12:45 | Infectious Diseases Prog Note ---
Assessment/Plan Assessment/Plan Assessment: Hematochezia -11/24 SP EGD/Colonoscopy: gastritis, hemorrhoids L hydronephrosis/L Hydroureter 2ry to extensive bladder tumor -11/25 SP Cystoscopy, urethral calibration, transurethral resection of extensive bladder tumor with fulguration, and right retrograde pyelogram. -Findings: The patient had what appeared to be a large bladder tumor that involved most of the left side of the bladder extending posteriorly and completely obliterating the left ureteral orifice. I was unable to place a stent on the left side. - -CT abd/p: Limited assessment of the GI tract, due to lack of enteric contrast administration. Moderate left hydronephrosis and hydroureter. Hydroureter extends to the bladder, where there is asymmetric posterolateral wall thickening raises concern for neoplasm. Further evaluation with cystoscopy should be considered. There is also generalized wall thickening, possibly on the basis of cystitis or chronic bladder outlet obstruction. No definite findings to suggest etiology of stated clinical history of GI bleed. Cholelithiasis. Basilar pulmonary atelectasis and equivocal slight interstitial congestion. L1 vertebral body compression fracture deformity, age indeterminate. Consider MRI for further evaluation if this is clinically relevant Afebrile NO leukocytosis -CXR: No acute process Pyuria Funguria -u/a wbc 10-15, nit +, leuk est +3; ucx <10 yeast Encephalopathy -Head CT: Chronic and age-related changes is noted. Negative for acute intracranial bleed or mass effect. 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 Will continue to follow along with you Subjective Allergies: Coded Allergies: No Known Allergies (Unverified , 04/09/16) Subjective afebrile no leukocytosis now off abx Objective Vital Signs Last 24 Hour Vital Signs Date Time Temp Pulse Resp B/P (MAP) Pulse Ox O2 Delivery O2 Flow Rate FiO2 12/02/18 09:00 Room Air 12/02/18 08:46 80 138/68 12/02/18 08:46 138/68 12/02/18 08:00 97.9 80 18 138/68 (91) 98 12/02/18 04:00 97.7 78 18 141/64 (89) 97 12/02/18 00:00 98.0 66 18 143/63 (89) 99 12/01/18 21:00 Room Air 12/01/18 20:00 98.3 70 18 139/63 (88) 98 12/01/18 16:53 128/56 12/01/18 16:00 98.8 62 18 128/56 (80) 98 Height (Feet): 6 Height (Inches): 6.00 Weight (Pounds): 185 Objective GENERAL: NAD HEAD AND NECK: NCAT, MMM, EOMI LUNGS: CTAB, No W ABDOMEN: Soft, nondistended, and nontender. Positive bowel sounds. Heart: RRR, S1, S2 Laboratory Tests Test 12/02/18 04:50 White Blood Count 8.6 K/UL (4.8-10.8) Red Blood Count 3.22 M/UL (4.70-6.10) L Hemoglobin 9.9 G/DL (14.2-18.0) L Hematocrit 28.7 % (42.0-52.0) L Mean Corpuscular Volume 89 FL (80-99) Mean Corpuscular Hemoglobin 30.8 PG (27.0-31.0) Mean Corpuscular Hemoglobin Concent 34.5 G/DL (32.0-36.0) Red Cell Distribution Width 10.9 % (11.6-14.8) L Platelet Count 165 K/UL (150-450) Mean Platelet Volume 6.1 FL (6.5-10.1) L Neutrophils (%) (Auto) 75.2 % (45.0-75.0) H Lymphocytes (%) (Auto) 16.8 % (20.0-45.0) L Monocytes (%) (Auto) 7.1 % (1.0-10.0) Eosinophils (%) (Auto) 0.0 % (0.0-3.0) Basophils (%) (Auto) 0.8 % (0.0-2.0) Sodium Level 140 MMOL/L (136-145) Potassium Level 3.8 MMOL/L (3.5-5.1) Chloride Level 105 MMOL/L (98-107) Carbon Dioxide Level 28 MMOL/L (21-32) Anion Gap 7 mmol/L (5-15) Blood Urea Nitrogen 12 mg/dL (7-18) Creatinine 1.0 MG/DL (0.55-1.30) Estimat Glomerular Filtration Rate mL/min (>60) Glucose Level 122 MG/DL (74-106) H Calcium Level 9.2 MG/DL (8.5-10.1) Current Medications Medications (Trade) Dose Ordered Sig/Levi Route PRN Reason Start Time Stop Time Status Last Admin Dose Admin Acetaminophen (Tylenol) 650 mg Q4H PRN ORAL fever 11/22/18 13:30 12/22/18 13:29 Al Hydroxide/Mg Hydroxide (Mylanta II) 30 ml Q6H PRN ORAL dyspepsia 11/22/18 13:30 12/22/18 13:29 Amlodipine Besylate (Norvasc) 2.5 mg DAILY ORAL 11/29/18 09:00 12/29/18 08:59 12/02/18 08:46 Dextrose (Dextrose 50%) 25 ml Q30M PRN IV Hypoglycemia 11/22/18 13:30 12/22/18 13:23 11/22/18 17:21 Dextrose (Dextrose 50%) 50 ml Q30M PRN IV hypoglycemia 11/22/18 13:30 12/22/18 13:29 Dextrose/Sodium Chloride 1,000 ml @ 75 mls/hr [id number] IV 11/22/18 13:16 12/22/18 13:15 12/02/18 02:09 Diphenhydramine HCl (Benadryl) 25 mg Q6H PRN ORAL Itching/Pruritis 11/22/18 13:30 12/22/18 13:29 Finasteride (Proscar) 5 mg DAILY ORAL 11/22/18 19:45 12/22/18 19:44 12/02/18 08:46 Hydralazine HCl (Apresoline) 50 mg Q6H PRN ORAL SBP > 160 11/22/18 17:30 12/22/18 17:29 11/27/18 01:26 Insulin Aspart (NovoLOG) BEFORE MEALS AND HS SUBQ 11/22/18 16:30 12/22/18 16:29 12/02/18 12:38 Irbesartan (Avapro) 150 mg BID ORAL 11/25/18 09:00 12/25/18 08:59 12/02/18 08:46 Methimazole (Tapazole) 10 mg DAILY ORAL 11/29/18 09:00 12/24/18 08:59 12/02/18 08:46 Morphine Sulfate (Morphine Sulfate) 2 mg Q4H PRN IVP Severe Pain (Pain Scale 7-10) 12/01/18 23:15 12/08/18 23:14 12/01/18 23:34 Nateglinide (Starlix) 120 mg TIAC ORAL 11/29/18 11:30 12/24/18 11:29 12/02/18 12:37 Nitroglycerin (Ntg) 0.4 mg Q5M X 3 DOSES PRN SL Prn Chest Pain 11/22/18 13:30 12/22/18 13:29 Ondansetron HCl (Zofran) 4 mg Q6H PRN IVP Nausea & Vomiting 11/22/18 13:30 12/22/18 13:29 Pantoprazole (Protonix) 40 mg EVERY 12 HOURS ORAL 11/24/18 21:00 12/24/18 20:59 12/02/18 08:46 Polyethylene Glycol (Miralax) 17 gm HSPRN PRN ORAL Constipation 11/22/18 13:30 12/22/18 13:29 Sucralfate (Carafate) 1 gm FOUR TIMES A DAY ORAL 11/24/18 21:00 12/24/18 20:59 12/02/18 12:37 Tamsulosin HCl (Flomax) 0.4 mg BEDTIME ORAL 11/22/18 21:00 12/22/18 20:59 12/01/18 20:49 Temazepam (Restoril) 15 mg HSPRN PRN ORAL Insomnia 11/29/18 21:15 12/06/18 21:14 12/02/18 00:27 Tawny Darby M.D. Dec 02, 2018 12:45
--- NOTE | 2018-12-02 13:20 | Pulmonology Progress Note ---
Assessment/Plan Problems: (1) Lower GI bleed (2) Hydronephrosis (3) Anemia (4) Bladder neoplasm (5) Chronic cerebrovascular accident (CVA) (6) Diabetes mellitus (7) Alzheimer's dementia (8) HTN (hypertension) Assessment/Plan no new complains nephrostomy in place. tolerated cystoscopy follow up with pathology, still not available. looks comfortable sliding scale monitor bp f/u urology recommendations prbc prn check H/H dvt prophylaxis. Subjective ROS Limited/Unobtainable: No Constitutional: Reports: no symptoms HEENT: Repors: no symptoms Allergies: Coded Allergies: No Known Allergies (Unverified , 04/09/16) Objective Last 24 Hour Vital Signs Date Time Temp Pulse Resp B/P (MAP) Pulse Ox O2 Delivery O2 Flow Rate FiO2 12/02/18 12:00 97.7 79 12/02/18 09:00 Room Air 12/02/18 08:46 80 138/68 12/02/18 08:46 138/68 12/02/18 08:00 97.9 80 18 138/68 (91) 98 12/02/18 04:00 97.7 78 18 141/64 (89) 97 12/02/18 00:00 98.0 66 18 143/63 (89) 99 12/01/18 21:00 Room Air 12/01/18 20:00 98.3 70 18 139/63 (88) 98 12/01/18 16:53 128/56 12/01/18 16:00 98.8 62 18 128/56 (80) 98 Intake and Output 12/01/18 12/02/18 19:00 07:00 Intake Total 1380 ml 675 ml Output Total 100 ml 1525 ml Balance 1280 ml -850 ml Intake Oral 480 ml IV Total 900 ml 675 ml Output Urine Total 100 ml 800 ml Other 725 ml # Voids 1 Objective nephrostomy still draining blood tinged urine, but less than previous day Laboratory Tests 12/02/18 04:50: White Blood Count 8.6, Red Blood Count 3.22L, Hemoglobin 9.9L, Hematocrit 28.7L , Mean Corpuscular Volume 89, Mean Corpuscular Hemoglobin 30.8, Mean Corpuscular Hemoglobin Concent 34.5, Red Cell Distribution Width 10.9L, Platelet Count 165, Mean Platelet Volume 6.1L, Neutrophils (%) (Auto) 75.2H, Lymphocytes (%) (Auto) 16.8L, Monocytes (%) (Auto) 7.1, Eosinophils (%) (Auto) 0.0, Basophils (%) (Auto) 0.8, Sodium Level 140, Potassium Level 3.8, Chloride Level 105, Carbon Dioxide Level 28, Anion Gap 7, Blood Urea Nitrogen 12, Creatinine 1.0, Estimat Glomerular Filtration Rate , Glucose Level 122H, Calcium Level 9.2 Current Medications Medications (Trade) Dose Ordered Sig/Levi Route PRN Reason Start Time Stop Time Status Last Admin Dose Admin Acetaminophen (Tylenol) 650 mg Q4H PRN ORAL fever 11/22/18 13:30 12/22/18 13:29 Al Hydroxide/Mg Hydroxide (Mylanta II) 30 ml Q6H PRN ORAL dyspepsia 11/22/18 13:30 12/22/18 13:29 Amlodipine Besylate (Norvasc) 2.5 mg DAILY ORAL 11/29/18 09:00 12/29/18 08:59 12/02/18 08:46 Dextrose (Dextrose 50%) 25 ml Q30M PRN IV Hypoglycemia 11/22/18 13:30 12/22/18 13:23 11/22/18 17:21 Dextrose (Dextrose 50%) 50 ml Q30M PRN IV hypoglycemia 11/22/18 13:30 12/22/18 13:29 Dextrose/Sodium Chloride 1,000 ml @ 75 mls/hr [id number] IV 11/22/18 13:16 12/22/18 13:15 12/02/18 02:09 Diphenhydramine HCl (Benadryl) 25 mg Q6H PRN ORAL Itching/Pruritis 11/22/18 13:30 12/22/18 13:29 Finasteride (Proscar) 5 mg DAILY ORAL 11/22/18 19:45 12/22/18 19:44 12/02/18 08:46 Hydralazine HCl (Apresoline) 50 mg Q6H PRN ORAL SBP > 160 11/22/18 17:30 12/22/18 17:29 11/27/18 01:26 Insulin Aspart (NovoLOG) BEFORE MEALS AND HS SUBQ 11/22/18 16:30 12/22/18 16:29 12/02/18 12:38 Irbesartan (Avapro) 150 mg BID ORAL 11/25/18 09:00 12/25/18 08:59 12/02/18 08:46 Methimazole (Tapazole) 10 mg DAILY ORAL 11/29/18 09:00 12/24/18 08:59 12/02/18 08:46 Morphine Sulfate (Morphine Sulfate) 2 mg Q4H PRN IVP Severe Pain (Pain Scale 7-10) 12/01/18 23:15 12/08/18 23:14 12/01/18 23:34 Nateglinide (Starlix) 120 mg TIAC ORAL 11/29/18 11:30 12/24/18 11:29 12/02/18 12:37 Nitroglycerin (Ntg) 0.4 mg Q5M X 3 DOSES PRN SL Prn Chest Pain 11/22/18 13:30 12/22/18 13:29 Ondansetron HCl (Zofran) 4 mg Q6H PRN IVP Nausea & Vomiting 11/22/18 13:30 12/22/18 13:29 Pantoprazole (Protonix) 40 mg EVERY 12 HOURS ORAL 11/24/18 21:00 12/24/18 20:59 12/02/18 08:46 Polyethylene Glycol (Miralax) 17 gm HSPRN PRN ORAL Constipation 11/22/18 13:30 12/22/18 13:29 Sucralfate (Carafate) 1 gm FOUR TIMES A DAY ORAL 11/24/18 21:00 12/24/18 20:59 12/02/18 12:37 Tamsulosin HCl (Flomax) 0.4 mg BEDTIME ORAL 11/22/18 21:00 12/22/18 20:59 12/01/18 20:49 Temazepam (Restoril) 15 mg HSPRN PRN ORAL Insomnia 11/29/18 21:15 12/06/18 21:14 12/02/18 00:27 Og Hinkle MD Dec 02, 2018 13:20
--- NOTE | 2018-12-02 15:30 | NUR ---
[employer]ER[employer] POLICY ANALYST SI:LEFT HYDRONEPHROSIS . HEMATURIA VS: BP 143/63, P 80, T 97.7, RR 18, SpO2 98 RBC 3.22, Hgb 9.9, Hct 28.7 IS:PROSCAR 5mg AVAPRO 150mg NORVASC 2.5mg TAPAZOLE 10mg STARLIX 120mg D5/NS x1L IV MED/SURG STATUS LEFT NEPHROSTOMY PLACED 11/26
[2018-12-02 16:00] VITALS: BP 136/74
--- NOTE | 2018-12-02 16:38 | Diagnostic Imaging Report ---
Indications: Dysphagia Technique: Patient ingested multiple substances under the supervision of speech pathology. Video fluoroscopic recording performed. Total fluoroscopy time 279 seconds. Total dose area product 0.3096 mGycm2 Total number of images-11 Comparison: none Findings: There is delay in initiation of deglutition and early pooling in the vallecula and piriform sinuses. No aspiration or penetration demonstrated. No significant delayed pooling. Impression: Negative for aspiration or penetration Please refer to speech pathology report for more detailed analysis
--- NOTE | 2018-12-02 18:42 | Neurology Progress Note ---
Interim History Interim History ROS Limited/Unobtainable: No Complaints: Reporting some malaise today. Events: None significant Interim History This visit was performed under the supervision of Dr. Jaime Flaherty on December 02, 2018. Review of Systems All Systems: reviewed and negative except above Objective Physical Exam Last Vital Signs Date Time Temp Pulse Resp B/P (MAP) Pulse Ox O2 Delivery O2 Flow Rate FiO2 12/02/18 17:22 136/74 12/02/18 16:00 98.0 81 18 98 12/02/18 09:00 Room Air 11/26/18 10:12 4.0 Laboratory Tests Test 12/02/18 04:50 White Blood Count 8.6 K/UL (4.8-10.8) Red Blood Count 3.22 M/UL (4.70-6.10) L Hemoglobin 9.9 G/DL (14.2-18.0) L Hematocrit 28.7 % (42.0-52.0) L Mean Corpuscular Volume 89 FL (80-99) Mean Corpuscular Hemoglobin 30.8 PG (27.0-31.0) Mean Corpuscular Hemoglobin Concent 34.5 G/DL (32.0-36.0) Red Cell Distribution Width 10.9 % (11.6-14.8) L Platelet Count 165 K/UL (150-450) Mean Platelet Volume 6.1 FL (6.5-10.1) L Neutrophils (%) (Auto) 75.2 % (45.0-75.0) H Lymphocytes (%) (Auto) 16.8 % (20.0-45.0) L Monocytes (%) (Auto) 7.1 % (1.0-10.0) Eosinophils (%) (Auto) 0.0 % (0.0-3.0) Basophils (%) (Auto) 0.8 % (0.0-2.0) Sodium Level 140 MMOL/L (136-145) Potassium Level 3.8 MMOL/L (3.5-5.1) Chloride Level 105 MMOL/L (98-107) Carbon Dioxide Level 28 MMOL/L (21-32) Anion Gap 7 mmol/L (5-15) Blood Urea Nitrogen 12 mg/dL (7-18) Creatinine 1.0 MG/DL (0.55-1.30) Estimat Glomerular Filtration Rate mL/min (>60) Glucose Level 122 MG/DL (74-106) H Calcium Level 9.2 MG/DL (8.5-10.1) Impression/Recommendations Problems: (1) Altered level of consciousness Assessment & Plan: CT 11/22/18: Chronic and age-related changes is noted. 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 Status: stable, unchanged Recommendations Unable to obtain MRI - so will continue to monitor- continue ASA and Q 4 hour neuro checks CTA if worsening deficits or new acute. Na 135-145 Maintain normothermia Maintain normoglycemia Avoid use of benzodiazapenes, anticholinergics, and opioid narcotics. May use Melatonin 3mg QHS for sleep regulation if helpful. Bailey Appiah N.P. Dec 02, 2018 18:42
--- NOTE | 2018-12-02 19:51 | NUR ---
HAND-OFF: Report given to DONELL GRANGER.
--- NOTE | 2018-12-02 19:52 | NUR ---
NURSE NOTES: Received patient in bed, resting and alert to name and place. Patient denies pain. No signs of respiratory distress. IV asymptomatic and intact. L nephrostomy intact and draining serosanguinous fluid. Bed in lowest position, call light within reach. Will continue to monitor.
[2018-12-02 20:00] VITALS: BP 96/62
--- NOTE | 2018-12-02 20:44 | Internal Med Progress Note ---
Subjective Date of Service: Dec 02, 2018 Physician Name Jean-Claude Peter Attending Physician Jaziel Lowe MD Current Medications Medications (Trade) Dose Ordered Sig/Levi Route PRN Reason Start Time Stop Time Status Last Admin Dose Admin Acetaminophen (Tylenol) 650 mg Q4H PRN ORAL fever 11/22/18 13:30 12/22/18 13:29 Al Hydroxide/Mg Hydroxide (Mylanta II) 30 ml Q6H PRN ORAL dyspepsia 11/22/18 13:30 12/22/18 13:29 Amlodipine Besylate (Norvasc) 2.5 mg DAILY ORAL 11/29/18 09:00 12/29/18 08:59 12/02/18 08:46 Dextrose (Dextrose 50%) 25 ml Q30M PRN IV Hypoglycemia 11/22/18 13:30 12/22/18 13:23 11/22/18 17:21 Dextrose (Dextrose 50%) 50 ml Q30M PRN IV hypoglycemia 11/22/18 13:30 12/22/18 13:29 Dextrose/Sodium Chloride 1,000 ml @ 75 mls/hr [id number] IV 11/22/18 13:16 12/22/18 13:15 12/02/18 13:23 Diphenhydramine HCl (Benadryl) 25 mg Q6H PRN ORAL Itching/Pruritis 11/22/18 13:30 12/22/18 13:29 Finasteride (Proscar) 5 mg DAILY ORAL 11/22/18 19:45 12/22/18 19:44 12/02/18 08:46 Hydralazine HCl (Apresoline) 50 mg Q6H PRN ORAL SBP > 160 11/22/18 17:30 12/22/18 17:29 11/27/18 01:26 Insulin Aspart (NovoLOG) BEFORE MEALS AND HS SUBQ 11/22/18 16:30 12/22/18 16:29 12/02/18 17:21 Irbesartan (Avapro) 150 mg BID ORAL 11/25/18 09:00 12/25/18 08:59 12/02/18 17:22 Methimazole (Tapazole) 10 mg DAILY ORAL 11/29/18 09:00 12/24/18 08:59 12/02/18 08:46 Morphine Sulfate (Morphine Sulfate) 2 mg Q4H PRN IVP Severe Pain (Pain Scale 7-10) 12/01/18 23:15 12/08/18 23:14 12/01/18 23:34 Nateglinide (Starlix) 120 mg TIAC ORAL 11/29/18 11:30 12/24/18 11:29 12/02/18 17:24 Nitroglycerin (Ntg) 0.4 mg Q5M X 3 DOSES PRN SL Prn Chest Pain 11/22/18 13:30 12/22/18 13:29 Ondansetron HCl (Zofran) 4 mg Q6H PRN IVP Nausea & Vomiting 11/22/18 13:30 12/22/18 13:29 Pantoprazole (Protonix) 40 mg EVERY 12 HOURS ORAL 11/24/18 21:00 12/24/18 20:59 12/02/18 08:46 Polyethylene Glycol (Miralax) 17 gm HSPRN PRN ORAL Constipation 11/22/18 13:30 12/22/18 13:29 Sucralfate (Carafate) 1 gm FOUR TIMES A DAY ORAL 11/24/18 21:00 12/24/18 20:59 12/02/18 17:21 Tamsulosin HCl (Flomax) 0.4 mg BEDTIME ORAL 11/22/18 21:00 12/22/18 20:59 12/01/18 20:49 Temazepam (Restoril) 15 mg HSPRN PRN ORAL Insomnia 11/29/18 21:15 12/06/18 21:14 12/02/18 00:27 Allergies: Coded Allergies: No Known Allergies (Unverified , 04/09/16) ROS Limited/Unobtainable: No Constitutional: Reports: no symptoms HEENT: Reports: no symptoms Cardiovascular: Reports: no symptoms Respiratory: Reports: no symptoms Gastrointestinal/Abdominal: Reports: no symptoms Genitourinary: Reports: no symptoms 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: Reports: no symptoms Subjective 83 YO M admitted with gastrointestinal hemorrhage. S/P endoscopy and colonoscopy 11/24/18. S/P transurethral bladder tumor resection 11/24/18. Cover for Lon Lowe Objective Last Vital Signs Date Time Temp Pulse Resp B/P (MAP) Pulse Ox O2 Delivery O2 Flow Rate FiO2 12/02/18 20:00 98.5 70 18 96/62 (73) 95 12/02/18 09:00 Room Air 11/26/18 10:12 4.0 Laboratory Tests Test 12/02/18 04:50 White Blood Count 8.6 K/UL (4.8-10.8) Red Blood Count 3.22 M/UL (4.70-6.10) L Hemoglobin 9.9 G/DL (14.2-18.0) L Hematocrit 28.7 % (42.0-52.0) L Mean Corpuscular Volume 89 FL (80-99) Mean Corpuscular Hemoglobin 30.8 PG (27.0-31.0) Mean Corpuscular Hemoglobin Concent 34.5 G/DL (32.0-36.0) Red Cell Distribution Width 10.9 % (11.6-14.8) L Platelet Count 165 K/UL (150-450) Mean Platelet Volume 6.1 FL (6.5-10.1) L Neutrophils (%) (Auto) 75.2 % (45.0-75.0) H Lymphocytes (%) (Auto) 16.8 % (20.0-45.0) L Monocytes (%) (Auto) 7.1 % (1.0-10.0) Eosinophils (%) (Auto) 0.0 % (0.0-3.0) Basophils (%) (Auto) 0.8 % (0.0-2.0) Sodium Level 140 MMOL/L (136-145) Potassium Level 3.8 MMOL/L (3.5-5.1) Chloride Level 105 MMOL/L (98-107) Carbon Dioxide Level 28 MMOL/L (21-32) Anion Gap 7 mmol/L (5-15) Blood Urea Nitrogen 12 mg/dL (7-18) Creatinine 1.0 MG/DL (0.55-1.30) Estimat Glomerular Filtration Rate mL/min (>60) Glucose Level 122 MG/DL (74-106) H Calcium Level 9.2 MG/DL (8.5-10.1) Intake and Output 12/01/18 12/02/18 18:59 06:59 Intake Total 1380 ml 675 ml Output Total 100 ml 1525 ml Balance 1280 ml -850 ml Intake Oral 480 ml IV Total 900 ml 675 ml Output Urine Total 100 ml 800 ml Other 725 ml # Voids 1 Objective PHYSICAL EXAMINATION: GENERAL: The patient is awake, alert, responsive, very pleasant, but forgetful. HEAD AND NECK: Pupils are reactive to light. Extraocular movements intact. Neck was supple. No JVD. LUNGS: Good air entry. No wheezing or rales. Left side of the chest has a pacemaker. ABDOMEN: Soft, nondistended, and nontender. Positive bowel sounds. EXTREMITIES: No cyanosis, clubbing, or edema. NEUROLOGIC: PLASTIC TECHNICIAN II through XII grossly intact. Motor is 5/5 in all extremities. Gait was not assessed due to the patient's status. RECTAL/GENITOURINARY: Refused and deferred. Assessment/Plan Assessment/Plan ASSESSMENT: 1. Gastrointestinal bleed. 2. Anemia possible due to acute blood loss. 3. Hypokalemia. 4. Acute urinary tract infection. 5. Moderate left hydronephrosis with hydroureter. 6. Cardiac arrhythmia status post pacemaker. 7. Diabetes type 2. 8. Hypertension. 9. Gastritis 10. hemorrhoids 11. hematuria-Bladder cancer PLAN: 1. Admit the patient to medical floor. 2. We will follow up with the laboratory. 3. Clear liquid diet. 4. Gastrointestinal consultation with Dr. Hernandez. 5. Code status is Full Code at this time. 6. See Urology consultation, Dr. Allen S/P transurethral resection bladder tumor High grade urothelial carcinoma 7. S/P Esophagogastroduodenoscopy and colonoscopy 11/24/18. 8. We will follow up with urine culture and Cardiology consultation with Dr. Nj Valenzuela. 9. Protonix 40 mg BID and carafate 1 gm QID 10 Await Oncology consult Jean-Claude Peter MD Dec 02, 2018 20:44
[2018-12-02] MEDS: Tamsulosin 0.4mg cap ORAL SCH (20:45)
[2018-12-03] VITALS: BP 118/63
[2018-12-03] MEDS: D5 1/2NS 1,000 ML IV SCH ×2 (02:36→16:52)
[2018-12-03 04:00] VITALS: BP 108/62
[2018-12-03] MEDS: NovoLOG Insulin Flexpen SUBQ SCH ×4 (05:45→20:51)
--- NOTE | 2018-12-03 06:43 | General Progress Note ---
Assessment/Plan Problem List: (1) Acute metabolic encephalopathy ICD Codes: G93.41 - Metabolic encephalopathy SNOMED: 22778343, 748827815 (2) Hyperthyroidism ICD Codes: E05.90 - Thyrotoxicosis, unspecified without thyrotoxic crisis or storm SNOMED: 16105223 (3) Diabetes mellitus ICD Codes: E11.9 - Type 2 diabetes mellitus without complications SNOMED: 74902243 (4) Bladder neoplasm ICD Codes: D49.4 - Neoplasm of unspecified behavior of bladder SNOMED: 169894605 (5) Hydronephrosis ICD Codes: N13.30 - Unspecified hydronephrosis SNOMED: 06211814 Status: stable Assessment/Plan: thyroid function shows improvement TSI pending continue Tapazole 10 mg daily continue Starlix 120 mg ac tid continue NISS ac / hs Subjective Allergies: Coded Allergies: No Known Allergies (Unverified , 04/09/16) All Systems: reviewed and negative except above Subjective events noted Item Value Date Time Bedside Blood Glucose 141 mg/dl H 12/03/18 0545 Bedside Blood Glucose 112 mg/dl 12/02/18 2100 Bedside Blood Glucose 199 mg/dl H 12/02/18 1721 Bedside Blood Glucose 185 mg/dl H 12/02/18 1238 Bedside Blood Glucose 150 mg/dl H 12/02/18 0638 Objective Last 24 Hour Vital Signs Date Time Temp Pulse Resp B/P (MAP) Pulse Ox O2 Delivery O2 Flow Rate FiO2 12/03/18 00:00 97.1 72 18 118/63 (81) 97 12/02/18 21:00 Room Air 12/02/18 20:00 98.5 70 18 96/62 (73) 95 12/02/18 17:22 136/74 12/02/18 16:00 98.0 81 18 136/74 (94) 98 12/02/18 12:00 97.7 79 12/02/18 09:00 Room Air 12/02/18 08:46 80 138/68 12/02/18 08:46 138/68 12/02/18 08:00 97.9 80 18 138/68 (91) 98 Intake and Output 12/02/18 12/03/18 19:00 07:00 Intake Total 1220 ml Output Total 325 ml 950 ml Balance 895 ml -950 ml Intake Oral 1220 ml Output Urine Total 950 ml Other 325 ml # Voids 8 Laboratory Tests 12/03/18 04:45: White Blood Count [Pending], Red Blood Count [Pending], Hemoglobin [Pending], Hematocrit [Pending], Mean Corpuscular Volume [Pending], Mean Corpuscular Hemoglobin [Pending], Mean Corpuscular Hemoglobin Concent [Pending], Red Cell Distribution Width [Pending], Platelet Count [Pending], Mean Platelet Volume [ Pending], Neutrophils (%) (Auto) [Pending], Lymphocytes (%) (Auto) [Pending], Monocytes (%) (Auto) [Pending], Eosinophils (%) (Auto) [Pending], Basophils (%) (Auto) [Pending], Sodium Level [Pending], Potassium Level [Pending], Chloride Level [Pending], Carbon Dioxide Level [Pending], Blood Urea Nitrogen [Pending], Creatinine [Pending], Estimat Glomerular Filtration Rate [Pending], Glucose Level [Pending], Calcium Level [Pending] Height (Feet): 6 Height (Inches): 6.00 Weight (Pounds): 185 General Appearance: no apparent distress Neck: normal alignment Cardiovascular: normal rate Respiratory/Chest: lungs clear Abdomen: normal bowel sounds Objective Current Medications Medications (Trade) Dose Ordered Sig/Levi Route PRN Reason Start Time Stop Time Status Last Admin Dose Admin Acetaminophen (Tylenol) 650 mg Q4H PRN ORAL fever 11/22/18 13:30 12/22/18 13:29 Al Hydroxide/Mg Hydroxide (Mylanta II) 30 ml Q6H PRN ORAL dyspepsia 11/22/18 13:30 12/22/18 13:29 Amlodipine Besylate (Norvasc) 2.5 mg DAILY ORAL 11/29/18 09:00 12/29/18 08:59 12/02/18 08:46 Dextrose (Dextrose 50%) 25 ml Q30M PRN IV Hypoglycemia 11/22/18 13:30 12/22/18 13:23 11/22/18 17:21 Dextrose (Dextrose 50%) 50 ml Q30M PRN IV hypoglycemia 11/22/18 13:30 12/22/18 13:29 Dextrose/Sodium Chloride 1,000 ml @ 75 mls/hr [id number] IV 11/22/18 13:16 12/22/18 13:15 12/03/18 02:36 Diphenhydramine HCl (Benadryl) 25 mg Q6H PRN ORAL Itching/Pruritis 11/22/18 13:30 12/22/18 13:29 Finasteride (Proscar) 5 mg DAILY ORAL 11/22/18 19:45 12/22/18 19:44 12/02/18 08:46 Hydralazine HCl (Apresoline) 50 mg Q6H PRN ORAL SBP > 160 11/22/18 17:30 12/22/18 17:29 11/27/18 01:26 Insulin Aspart (NovoLOG) BEFORE MEALS AND HS SUBQ 11/22/18 16:30 12/22/18 16:29 12/03/18 05:45 Irbesartan (Avapro) 150 mg BID ORAL 11/25/18 09:00 12/25/18 08:59 12/02/18 17:22 Methimazole (Tapazole) 10 mg DAILY ORAL 11/29/18 09:00 12/24/18 08:59 12/02/18 08:46 Morphine Sulfate (Morphine Sulfate) 2 mg Q4H PRN IVP Severe Pain (Pain Scale 7-10) 12/01/18 23:15 12/08/18 23:14 12/01/18 23:34 Nateglinide (Starlix) 120 mg TIAC ORAL 11/29/18 11:30 12/24/18 11:29 12/03/18 05:44 Nitroglycerin (Ntg) 0.4 mg Q5M X 3 DOSES PRN SL Prn Chest Pain 11/22/18 13:30 12/22/18 13:29 Ondansetron HCl (Zofran) 4 mg Q6H PRN IVP Nausea & Vomiting 11/22/18 13:30 12/22/18 13:29 Pantoprazole (Protonix) 40 mg EVERY 12 HOURS ORAL 11/24/18 21:00 12/24/18 20:59 12/02/18 20:45 Polyethylene Glycol (Miralax) 17 gm HSPRN PRN ORAL Constipation 11/22/18 13:30 12/22/18 13:29 Sucralfate (Carafate) 1 gm FOUR TIMES A DAY ORAL 11/24/18 21:00 12/24/18 20:59 12/02/18 20:45 Tamsulosin HCl (Flomax) 0.4 mg BEDTIME ORAL 11/22/18 21:00 12/22/18 20:59 12/02/18 20:45 Temazepam (Restoril) 15 mg HSPRN PRN ORAL Insomnia 11/29/18 21:15 12/06/18 21:14 12/02/18 00:27 Kashif Adorno MD Dec 03, 2018 06:43
[2018-12-03 06:55] LABS: ANION GAP 6 mmol/L (5-15); BLOOD UREA NITROGEN 15 mg/dL (7-18); CALCIUM 8.9 MG/DL (8.5-10.1); CARBON DIOXIDE 28 MMOL/L (21-32); CHLORIDE 106 MMOL/L (98-107); CREATININE 1.1 MG/DL (0.55-1.30); SODIUM 140 MMOL/L (136-145)
[2018-12-03 06:57] LABS: BASOPHILS % (AUTO) 0.5 % (0.0-2.0); HEMATOCRIT 29.6 % (42.0-52.0); HEMOGLOBIN 10.2 G/DL (14.2-18.0); LYMPHOCYTES % (AUTO) 17.3 % (20.0-45.0); MEAN CORPUSCULAR VOLUME 89 FL (80-99); NEUTROPHILS % (AUTO) 75.2 % (45.0-75.0); PLATELET COUNT 172 K/UL (150-450); RED BLOOD COUNT 3.32 M/UL (4.70-6.10); RED CELL DISTRIBUTION WIDTH 11.1 % (11.6-14.8); WHITE BLOOD COUNT 8.3 K/UL (4.8-10.8)
--- NOTE | 2018-12-03 07:30 | NUR ---
NURSE NOTES: Received pt from [facility]. pt is confused and orient x2. pt is in RA. no SOB or acute respiratory distress noted. pt has condom cath in place is running well. pt has intact iv access RFA 20G is running well. pt has L nephrostomy bag, the urine is light redness. all needs attended, bed is locked and is in the lowest position, call light within easy reach. will continue to monitor.
[2018-12-03 08:00] VITALS: BP 121/66
--- NOTE | 2018-12-03 08:29 | NUR ---
HAND-OFF: Report given to DONELL Alexander.
[2018-12-03] MEDS: Irbesartan 150mg tablet ORAL SCH ×2 (09:43→17:01)
[2018-12-03] MEDS: Sucralfate 1gm tab ORAL SCH ×5 (09:44→20:54)
--- NOTE | 2018-12-03 11:03 | GI Progress Note ---
Assessment/Plan Problems: (1) Lower GI bleed ICD Codes: K92.2 - Gastrointestinal hemorrhage, unspecified SNOMED: 37065385 (2) Anemia ICD Codes: D64.9 - Anemia, unspecified SNOMED: 873054942 (3) Bleeding hemorrhoid ICD Codes: K64.9 - Unspecified hemorrhoids SNOMED: 87310035 (4) Alzheimer's dementia ICD Codes: G30.9 - Alzheimer's disease, unspecified; F02.80 - Dementia in other diseases classified elsewhere without behavioral disturbance SNOMED: 52385820 (5) Diabetes mellitus ICD Codes: E11.9 - Type 2 diabetes mellitus without complications SNOMED: 32131381 Status: stable Status Narrative Discussed with Dr. Hernandez Assessment/Plan SUMMARY OF FINDINGS: 1. Gastritis and possibly gastric ulceration, status post biopsy. 2. One colonic polyp removed, see above for details. 3. Internal hemorrhoids. Occult blood stool negative Patient passed video swallow RECOMMENDATIONS: Follow up pathology. >> H. pylori negative Resume diet. Follow with Urology given diagnosis of bladder cancer. monitor H&H, prn transfusions bowel regime ppi fu labs dc planning The patient was seen and examined at bedside and all new and available data was reviewed in the patients chart. I agree with the above findings, impression and plan. (Patient seen earlier today. Signature stamp does not reflect patient encounter time.). - Prince Hernandez MD Subjective Subjective Limited Objective Last 24 Hour Vital Signs Date Time Temp Pulse Resp B/P (MAP) Pulse Ox O2 Delivery O2 Flow Rate FiO2 12/03/18 09:43 73 121/66 12/03/18 09:43 121/66 12/03/18 09:00 Room Air 12/03/18 08:00 98.3 73 18 121/66 (84) 97 12/03/18 04:00 97.6 71 18 108/62 (77) 97 12/03/18 00:00 97.1 72 18 118/63 (81) 97 12/02/18 21:00 Room Air 12/02/18 20:00 98.5 70 18 96/62 (73) 95 12/02/18 17:22 136/74 12/02/18 16:00 98.0 81 18 136/74 (94) 98 12/02/18 12:00 97.7 79 Intake and Output 12/02/18 12/03/18 19:00 07:00 Intake Total 1220 ml Output Total 325 ml 950 ml Balance 895 ml -950 ml Intake Oral 1220 ml Output Urine Total 950 ml Other 325 ml # Voids 8 Laboratory Tests Test 12/03/18 04:45 White Blood Count 8.3 K/UL (4.8-10.8) Red Blood Count 3.32 M/UL (4.70-6.10) L Hemoglobin 10.2 G/DL (14.2-18.0) L Hematocrit 29.6 % (42.0-52.0) L Mean Corpuscular Volume 89 FL (80-99) Mean Corpuscular Hemoglobin 30.6 PG (27.0-31.0) Mean Corpuscular Hemoglobin Concent 34.4 G/DL (32.0-36.0) Red Cell Distribution Width 11.1 % (11.6-14.8) L Platelet Count 172 K/UL (150-450) Mean Platelet Volume 6.0 FL (6.5-10.1) L Neutrophils (%) (Auto) 75.2 % (45.0-75.0) H Lymphocytes (%) (Auto) 17.3 % (20.0-45.0) L Monocytes (%) (Auto) 7.0 % (1.0-10.0) Eosinophils (%) (Auto) 0.0 % (0.0-3.0) Basophils (%) (Auto) 0.5 % (0.0-2.0) Sodium Level 140 MMOL/L (136-145) Potassium Level 4.0 MMOL/L (3.5-5.1) Chloride Level 106 MMOL/L (98-107) Carbon Dioxide Level 28 MMOL/L (21-32) Anion Gap 6 mmol/L (5-15) Blood Urea Nitrogen 15 mg/dL (7-18) Creatinine 1.1 MG/DL (0.55-1.30) Estimat Glomerular Filtration Rate mL/min (>60) Glucose Level 121 MG/DL (74-106) H Calcium Level 8.9 MG/DL (8.5-10.1) Height (Feet): 6 Height (Inches): 6.00 Weight (Pounds): 185 General Appearance: WD/WN, no apparent distress, alert Cardiovascular: normal rate Respiratory/Chest: normal breath sounds, no respiratory distress Abdominal Exam: normal bowel sounds, non tender, soft Extremities: non-tender Osiel Vega NP Dec 03, 2018 11:03
[2018-12-03 12:00] VITALS: BP 128/69
--- NOTE | 2018-12-03 14:41 | Urology Progress Note ---
Assessment/Plan Status: stable Assessment/Plan: 1. Left hydronephrosis. 2. Hematuria. 3. Pyuria. 4. Proteinuria. 5. Benign prostatic hypertrophy. 6. Incontinence. 7. Neurogenic bladder. 8. Cystitis. 9. Bladder cancer. 10. POD # 9, cysto/TURBT monitor clinically hernanedz out and voiding left hydro secondary to bladder tumor left nephrostomy placed 11/26 hand irrigated and do PRN unable to place antegrade ureteral stent, reattempt later? flomax and proscar monitor for voiding and reinsert hernandez PRN s/p diflucan med onc eval Subjective Allergies: Coded Allergies: No Known Allergies (Unverified , 04/09/16) Subjective all noted, feels fair, hernandez removed yest, has been voiding Objective Last 24 Hour Vital Signs Date Time Temp Pulse Resp B/P (MAP) Pulse Ox O2 Delivery O2 Flow Rate FiO2 12/03/18 12:00 98.7 77 18 128/69 (88) 98 12/03/18 09:43 73 121/66 12/03/18 09:43 121/66 12/03/18 09:00 Room Air 12/03/18 08:00 98.3 73 18 121/66 (84) 97 12/03/18 04:00 97.6 71 18 108/62 (77) 97 12/03/18 00:00 97.1 72 18 118/63 (81) 97 12/02/18 21:00 Room Air 12/02/18 20:00 98.5 70 18 96/62 (73) 95 12/02/18 17:22 136/74 12/02/18 16:00 98.0 81 18 136/74 (94) 98 Intake and Output 12/02/18 12/03/18 19:00 07:00 Intake Total 1220 ml Output Total 325 ml 950 ml Balance 895 ml -950 ml Intake Oral 1220 ml Output Urine Total 950 ml Other 325 ml # Voids 8 Microbiology Date/Time Source Procedure Growth Status 11/22/18 12:20 Nasal Nares MRSA Culture - Final NO METHICILLIN RESISTANT STAPH AUREUS... Complete 11/22/18 11:15 Urine,Clean Catch Urine Culture - Final YEAST Complete 11/22/18 12:20 Rectal Mucosa VRE Culture - Final NO VANCOMYCIN RESISTANT ENTEROCOCCUS ... Complete 11/22/18 12:20 Rectal Mucosa - Final NO CARBAPENEM-RESISTANT ENTEROBACTERI... Complete Current Medications Medications (Trade) Dose Ordered Sig/Levi Route PRN Reason Start Time Stop Time Status Last Admin Dose Admin Acetaminophen (Tylenol) 650 mg Q4H PRN ORAL fever 11/22/18 13:30 12/22/18 13:29 Al Hydroxide/Mg Hydroxide (Mylanta II) 30 ml Q6H PRN ORAL dyspepsia 11/22/18 13:30 12/22/18 13:29 Amlodipine Besylate (Norvasc) 2.5 mg DAILY ORAL 11/29/18 09:00 12/29/18 08:59 12/03/18 09:43 Dextrose (Dextrose 50%) 25 ml Q30M PRN IV Hypoglycemia 11/22/18 13:30 12/22/18 13:23 11/22/18 17:21 Dextrose (Dextrose 50%) 50 ml Q30M PRN IV hypoglycemia 11/22/18 13:30 12/22/18 13:29 Dextrose/Sodium Chloride 1,000 ml @ 75 mls/hr [id number] IV 11/22/18 13:16 12/22/18 13:15 12/03/18 02:36 Diphenhydramine HCl (Benadryl) 25 mg Q6H PRN ORAL Itching/Pruritis 11/22/18 13:30 12/22/18 13:29 Finasteride (Proscar) 5 mg DAILY ORAL 11/22/18 19:45 12/22/18 19:44 12/03/18 09:43 Hydralazine HCl (Apresoline) 50 mg Q6H PRN ORAL SBP > 160 11/22/18 17:30 12/22/18 17:29 11/27/18 01:26 Insulin Aspart (NovoLOG) BEFORE MEALS AND HS SUBQ 11/22/18 16:30 12/22/18 16:29 12/03/18 12:02 Irbesartan (Avapro) 150 mg BID ORAL 11/25/18 09:00 12/25/18 08:59 12/03/18 09:43 Methimazole (Tapazole) 10 mg DAILY ORAL 11/29/18 09:00 12/24/18 08:59 12/03/18 09:43 Morphine Sulfate (Morphine Sulfate) 2 mg Q4H PRN IVP Severe Pain (Pain Scale 7-10) 12/01/18 23:15 12/08/18 23:14 12/01/18 23:34 Nateglinide (Starlix) 120 mg TIAC ORAL 11/29/18 11:30 12/24/18 11:29 12/03/18 12:01 Nitroglycerin (Ntg) 0.4 mg Q5M X 3 DOSES PRN SL Prn Chest Pain 11/22/18 13:30 12/22/18 13:29 Ondansetron HCl (Zofran) 4 mg Q6H PRN IVP Nausea & Vomiting 11/22/18 13:30 12/22/18 13:29 Pantoprazole (Protonix) 40 mg EVERY 12 HOURS ORAL 11/24/18 21:00 12/24/18 20:59 12/03/18 09:43 Polyethylene Glycol (Miralax) 17 gm HSPRN PRN ORAL Constipation 11/22/18 13:30 12/22/18 13:29 Sucralfate (Carafate) 1 gm FOUR TIMES A DAY ORAL 11/24/18 21:00 12/24/18 20:59 12/03/18 12:01 Tamsulosin HCl (Flomax) 0.4 mg BEDTIME ORAL 11/22/18 21:00 12/22/18 20:59 12/02/18 20:45 Temazepam (Restoril) 15 mg HSPRN PRN ORAL Insomnia 11/29/18 21:15 12/06/18 21:14 12/02/18 00:27 Laboratory Tests 12/03/18 04:45: White Blood Count 8.3, Red Blood Count 3.32L, Hemoglobin 10.2L, Hematocrit 29.6L , Mean Corpuscular Volume 89, Mean Corpuscular Hemoglobin 30.6, Mean Corpuscular Hemoglobin Concent 34.4, Red Cell Distribution Width 11.1L, Platelet Count 172, Mean Platelet Volume 6.0L, Neutrophils (%) (Auto) 75.2H, Lymphocytes (%) (Auto) 17.3L, Monocytes (%) (Auto) 7.0, Eosinophils (%) (Auto) 0.0, Basophils (%) (Auto) 0.5, Sodium Level 140, Potassium Level 4.0, Chloride Level 106, Carbon Dioxide Level 28, Anion Gap 6, Blood Urea Nitrogen 15, Creatinine 1.1, Estimat Glomerular Filtration Rate , Glucose Level 121H, Calcium Level 8.9 Height (Feet): 6 Height (Inches): 6.00 Weight (Pounds): 185 Objective exam stable left nephrostomy blood-tinged final path noted Macho Allen MD Dec 03, 2018 14:41
[2018-12-03 16:00] VITALS: BP 125/69
--- NOTE | 2018-12-03 16:09 | Pulmonology Progress Note ---
Assessment/Plan Problems: (1) Lower GI bleed (2) Hydronephrosis (3) Anemia (4) Bladder neoplasm (5) Chronic cerebrovascular accident (CVA) (6) Diabetes mellitus (7) Alzheimer's dementia (8) HTN (hypertension) Assessment/Plan no new complains nephrostomy in place. tolerated cystoscopy follow up with pathology, still not available. looks comfortable sliding scale monitor bp f/u urology recommendations prbc prn check H/H dvt prophylaxis. Subjective ROS Limited/Unobtainable: No Interval Events: wants to go home Constitutional: Reports: no symptoms HEENT: Repors: no symptoms Respiratory: Reports: no symptoms Allergies: Coded Allergies: No Known Allergies (Unverified , 04/09/16) Objective Last 24 Hour Vital Signs Date Time Temp Pulse Resp B/P (MAP) Pulse Ox O2 Delivery O2 Flow Rate FiO2 12/03/18 12:00 98.7 77 18 128/69 (88) 98 12/03/18 09:43 73 121/66 12/03/18 09:43 121/66 12/03/18 09:00 Room Air 12/03/18 08:00 98.3 73 18 121/66 (84) 97 12/03/18 04:00 97.6 71 18 108/62 (77) 97 12/03/18 00:00 97.1 72 18 118/63 (81) 97 12/02/18 21:00 Room Air 12/02/18 20:00 98.5 70 18 96/62 (73) 95 12/02/18 17:22 136/74 Intake and Output 12/02/18 12/03/18 19:00 07:00 Intake Total 1220 ml Output Total 325 ml 950 ml Balance 895 ml -950 ml Intake Oral 1220 ml Output Urine Total 950 ml Other 325 ml # Voids 8 Objective nephrostomy still draining blood tinged urine, but less than previous day General Appearance: WD/WN HEENT: normocephalic, atraumatic Respiratory/Chest: chest wall non-tender, normal breath sounds Cardiovascular: normal peripheral pulses, normal rate Abdomen: normal bowel sounds, soft, non tender, no organomegaly, non distended Extremities: no cyanosis Skin: no rash, no lesions, no ulcers Laboratory Tests 12/03/18 04:45: White Blood Count 8.3, Red Blood Count 3.32L, Hemoglobin 10.2L, Hematocrit 29.6L , Mean Corpuscular Volume 89, Mean Corpuscular Hemoglobin 30.6, Mean Corpuscular Hemoglobin Concent 34.4, Red Cell Distribution Width 11.1L, Platelet Count 172, Mean Platelet Volume 6.0L, Neutrophils (%) (Auto) 75.2H, Lymphocytes (%) (Auto) 17.3L, Monocytes (%) (Auto) 7.0, Eosinophils (%) (Auto) 0.0, Basophils (%) (Auto) 0.5, Sodium Level 140, Potassium Level 4.0, Chloride Level 106, Carbon Dioxide Level 28, Anion Gap 6, Blood Urea Nitrogen 15, Creatinine 1.1, Estimat Glomerular Filtration Rate , Glucose Level 121H, Calcium Level 8.9 Current Medications Medications (Trade) Dose Ordered Sig/Levi Route PRN Reason Start Time Stop Time Status Last Admin Dose Admin Acetaminophen (Tylenol) 650 mg Q4H PRN ORAL fever 11/22/18 13:30 12/22/18 13:29 Al Hydroxide/Mg Hydroxide (Mylanta II) 30 ml Q6H PRN ORAL dyspepsia 11/22/18 13:30 12/22/18 13:29 Amlodipine Besylate (Norvasc) 2.5 mg DAILY ORAL 11/29/18 09:00 12/29/18 08:59 12/03/18 09:43 Dextrose (Dextrose 50%) 25 ml Q30M PRN IV Hypoglycemia 11/22/18 13:30 12/22/18 13:23 11/22/18 17:21 Dextrose (Dextrose 50%) 50 ml Q30M PRN IV hypoglycemia 11/22/18 13:30 12/22/18 13:29 Dextrose/Sodium Chloride 1,000 ml @ 75 mls/hr [id number] IV 11/22/18 13:16 12/22/18 13:15 12/03/18 02:36 Diphenhydramine HCl (Benadryl) 25 mg Q6H PRN ORAL Itching/Pruritis 11/22/18 13:30 12/22/18 13:29 Finasteride (Proscar) 5 mg DAILY ORAL 11/22/18 19:45 12/22/18 19:44 12/03/18 09:43 Hydralazine HCl (Apresoline) 50 mg Q6H PRN ORAL SBP > 160 11/22/18 17:30 12/22/18 17:29 11/27/18 01:26 Insulin Aspart (NovoLOG) BEFORE MEALS AND HS SUBQ 11/22/18 16:30 12/22/18 16:29 12/03/18 12:02 Irbesartan (Avapro) 150 mg BID ORAL 11/25/18 09:00 12/25/18 08:59 12/03/18 09:43 Methimazole (Tapazole) 10 mg DAILY ORAL 11/29/18 09:00 12/24/18 08:59 12/03/18 09:43 Morphine Sulfate (Morphine Sulfate) 2 mg Q4H PRN IVP Severe Pain (Pain Scale 7-10) 12/01/18 23:15 12/08/18 23:14 12/01/18 23:34 Nateglinide (Starlix) 120 mg TIAC ORAL 11/29/18 11:30 12/24/18 11:29 12/03/18 12:01 Nitroglycerin (Ntg) 0.4 mg Q5M X 3 DOSES PRN SL Prn Chest Pain 11/22/18 13:30 12/22/18 13:29 Ondansetron HCl (Zofran) 4 mg Q6H PRN IVP Nausea & Vomiting 11/22/18 13:30 12/22/18 13:29 Pantoprazole (Protonix) 40 mg EVERY 12 HOURS ORAL 11/24/18 21:00 12/24/18 20:59 12/03/18 09:43 Polyethylene Glycol (Miralax) 17 gm HSPRN PRN ORAL Constipation 11/22/18 13:30 12/22/18 13:29 Sucralfate (Carafate) 1 gm FOUR TIMES A DAY ORAL 11/24/18 21:00 12/24/18 20:59 12/03/18 12:01 Tamsulosin HCl (Flomax) 0.4 mg BEDTIME ORAL 11/22/18 21:00 12/22/18 20:59 12/02/18 20:45 Temazepam (Restoril) 15 mg HSPRN PRN ORAL Insomnia 11/29/18 21:15 12/06/18 21:14 12/02/18 00:27 Og Hinkle MD Dec 03, 2018 16:09
--- NOTE | 2018-12-03 17:18 | Infectious Diseases Prog Note ---
Assessment/Plan Assessment/Plan Assessment: Hematochezia -11/24 SP EGD/Colonoscopy: gastritis, hemorrhoids L hydronephrosis/L Hydroureter 2ry to extensive bladder tumor -11/25 SP Cystoscopy, urethral calibration, transurethral resection of extensive bladder tumor with fulguration, and right retrograde pyelogram. -Findings: The patient had what appeared to be a large bladder tumor that involved most of the left side of the bladder extending posteriorly and completely obliterating the left ureteral orifice. I was unable to place a stent on the left side. - -CT abd/p: Limited assessment of the GI tract, due to lack of enteric contrast administration. Moderate left hydronephrosis and hydroureter. Hydroureter extends to the bladder, where there is asymmetric posterolateral wall thickening raises concern for neoplasm. Further evaluation with cystoscopy should be considered. There is also generalized wall thickening, possibly on the basis of cystitis or chronic bladder outlet obstruction. No definite findings to suggest etiology of stated clinical history of GI bleed. Cholelithiasis. Basilar pulmonary atelectasis and equivocal slight interstitial congestion. L1 vertebral body compression fracture deformity, age indeterminate. Consider MRI for further evaluation if this is clinically relevant Afebrile NO leukocytosis -CXR: No acute process Pyuria Funguria -u/a wbc 10-15, nit +, leuk est +3; ucx <10 yeast Encephalopathy -Head CT: Chronic and age-related changes is noted. Negative for acute intracranial bleed or mass effect. 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 Will continue to follow along with you Subjective Allergies: Coded Allergies: No Known Allergies (Unverified , 04/09/16) Subjective afebrile no leukocytosis now off abx Objective Vital Signs Last 24 Hour Vital Signs Date Time Temp Pulse Resp B/P (MAP) Pulse Ox O2 Delivery O2 Flow Rate FiO2 12/03/18 17:01 125/69 12/03/18 16:00 98.0 70 18 125/69 (87) 97 12/03/18 12:00 98.7 77 18 128/69 (88) 98 12/03/18 09:43 73 121/66 12/03/18 09:43 121/66 12/03/18 09:00 Room Air 12/03/18 08:00 98.3 73 18 121/66 (84) 97 12/03/18 04:00 97.6 71 18 108/62 (77) 97 12/03/18 00:00 97.1 72 18 118/63 (81) 97 12/02/18 21:00 Room Air 12/02/18 20:00 98.5 70 18 96/62 (73) 95 12/02/18 17:22 136/74 Height (Feet): 6 Height (Inches): 6.00 Weight (Pounds): 185 Objective GENERAL: NAD HEAD AND NECK: NCAT, MMM, EOMI LUNGS: CTAB, No W ABDOMEN: Soft, nondistended, and nontender. Positive bowel sounds. Heart: RRR, S1, S2 Laboratory Tests Test 12/03/18 04:45 White Blood Count 8.3 K/UL (4.8-10.8) Red Blood Count 3.32 M/UL (4.70-6.10) L Hemoglobin 10.2 G/DL (14.2-18.0) L Hematocrit 29.6 % (42.0-52.0) L Mean Corpuscular Volume 89 FL (80-99) Mean Corpuscular Hemoglobin 30.6 PG (27.0-31.0) Mean Corpuscular Hemoglobin Concent 34.4 G/DL (32.0-36.0) Red Cell Distribution Width 11.1 % (11.6-14.8) L Platelet Count 172 K/UL (150-450) Mean Platelet Volume 6.0 FL (6.5-10.1) L Neutrophils (%) (Auto) 75.2 % (45.0-75.0) H Lymphocytes (%) (Auto) 17.3 % (20.0-45.0) L Monocytes (%) (Auto) 7.0 % (1.0-10.0) Eosinophils (%) (Auto) 0.0 % (0.0-3.0) Basophils (%) (Auto) 0.5 % (0.0-2.0) Sodium Level 140 MMOL/L (136-145) Potassium Level 4.0 MMOL/L (3.5-5.1) Chloride Level 106 MMOL/L (98-107) Carbon Dioxide Level 28 MMOL/L (21-32) Anion Gap 6 mmol/L (5-15) Blood Urea Nitrogen 15 mg/dL (7-18) Creatinine 1.1 MG/DL (0.55-1.30) Estimat Glomerular Filtration Rate mL/min (>60) Glucose Level 121 MG/DL (74-106) H Calcium Level 8.9 MG/DL (8.5-10.1) Current Medications Medications (Trade) Dose Ordered Sig/Levi Route PRN Reason Start Time Stop Time Status Last Admin Dose Admin Acetaminophen (Tylenol) 650 mg Q4H PRN ORAL fever 11/22/18 13:30 12/22/18 13:29 Al Hydroxide/Mg Hydroxide (Mylanta II) 30 ml Q6H PRN ORAL dyspepsia 11/22/18 13:30 12/22/18 13:29 Amlodipine Besylate (Norvasc) 2.5 mg DAILY ORAL 11/29/18 09:00 12/29/18 08:59 12/03/18 09:43 Dextrose (Dextrose 50%) 25 ml Q30M PRN IV Hypoglycemia 11/22/18 13:30 12/22/18 13:23 11/22/18 17:21 Dextrose (Dextrose 50%) 50 ml Q30M PRN IV hypoglycemia 11/22/18 13:30 12/22/18 13:29 Dextrose/Sodium Chloride 1,000 ml @ 75 mls/hr [id number] IV 11/22/18 13:16 12/22/18 13:15 12/03/18 16:52 Diphenhydramine HCl (Benadryl) 25 mg Q6H PRN ORAL Itching/Pruritis 11/22/18 13:30 12/22/18 13:29 Finasteride (Proscar) 5 mg DAILY ORAL 11/22/18 19:45 12/22/18 19:44 12/03/18 09:43 Hydralazine HCl (Apresoline) 50 mg Q6H PRN ORAL SBP > 160 11/22/18 17:30 12/22/18 17:29 11/27/18 01:26 Insulin Aspart (NovoLOG) BEFORE MEALS AND HS SUBQ 11/22/18 16:30 12/22/18 16:29 12/03/18 16:56 Irbesartan (Avapro) 150 mg BID ORAL 11/25/18 09:00 12/25/18 08:59 12/03/18 17:01 Methimazole (Tapazole) 10 mg DAILY ORAL 11/29/18 09:00 12/24/18 08:59 12/03/18 09:43 Morphine Sulfate (Morphine Sulfate) 2 mg Q4H PRN IVP Severe Pain (Pain Scale 7-10) 12/01/18 23:15 12/08/18 23:14 12/01/18 23:34 Nateglinide (Starlix) 120 mg TIAC ORAL 11/29/18 11:30 12/24/18 11:29 12/03/18 16:56 Nitroglycerin (Ntg) 0.4 mg Q5M X 3 DOSES PRN SL Prn Chest Pain 11/22/18 13:30 12/22/18 13:29 Ondansetron HCl (Zofran) 4 mg Q6H PRN IVP Nausea & Vomiting 11/22/18 13:30 12/22/18 13:29 Pantoprazole (Protonix) 40 mg EVERY 12 HOURS ORAL 11/24/18 21:00 12/24/18 20:59 12/03/18 09:43 Polyethylene Glycol (Miralax) 17 gm HSPRN PRN ORAL Constipation 11/22/18 13:30 12/22/18 13:29 Sucralfate (Carafate) 1 gm FOUR TIMES A DAY ORAL 11/24/18 21:00 12/24/18 20:59 12/03/18 17:00 Tamsulosin HCl (Flomax) 0.4 mg BEDTIME ORAL 11/22/18 21:00 12/22/18 20:59 12/02/18 20:45 Temazepam (Restoril) 15 mg HSPRN PRN ORAL Insomnia 11/29/18 21:15 12/06/18 21:14 12/02/18 00:27 Tawny Darby M.D. Dec 03, 2018 17:18
--- NOTE | 2018-12-03 18:21 | Internal Med Progress Note ---
Subjective Date of Service: Dec 03, 2018 Physician Name BrittaniJean-Claude Attending Physician Jaziel Lowe MD Current Medications Medications (Trade) Dose Ordered Sig/Levi Route PRN Reason Start Time Stop Time Status Last Admin Dose Admin Acetaminophen (Tylenol) 650 mg Q4H PRN ORAL fever 11/22/18 13:30 12/22/18 13:29 Al Hydroxide/Mg Hydroxide (Mylanta II) 30 ml Q6H PRN ORAL dyspepsia 11/22/18 13:30 12/22/18 13:29 Amlodipine Besylate (Norvasc) 2.5 mg DAILY ORAL 11/29/18 09:00 12/29/18 08:59 12/03/18 09:43 Dextrose (Dextrose 50%) 25 ml Q30M PRN IV Hypoglycemia 11/22/18 13:30 12/22/18 13:23 11/22/18 17:21 Dextrose (Dextrose 50%) 50 ml Q30M PRN IV hypoglycemia 11/22/18 13:30 12/22/18 13:29 Dextrose/Sodium Chloride 1,000 ml @ 75 mls/hr [id number] IV 11/22/18 13:16 12/22/18 13:15 12/03/18 16:52 Diphenhydramine HCl (Benadryl) 25 mg Q6H PRN ORAL Itching/Pruritis 11/22/18 13:30 12/22/18 13:29 Finasteride (Proscar) 5 mg DAILY ORAL 11/22/18 19:45 12/22/18 19:44 12/03/18 09:43 Hydralazine HCl (Apresoline) 50 mg Q6H PRN ORAL SBP > 160 11/22/18 17:30 12/22/18 17:29 11/27/18 01:26 Insulin Aspart (NovoLOG) BEFORE MEALS AND HS SUBQ 11/22/18 16:30 12/22/18 16:29 12/03/18 16:56 Irbesartan (Avapro) 150 mg BID ORAL 11/25/18 09:00 12/25/18 08:59 12/03/18 17:01 Methimazole (Tapazole) 10 mg DAILY ORAL 11/29/18 09:00 12/24/18 08:59 12/03/18 09:43 Morphine Sulfate (Morphine Sulfate) 2 mg Q4H PRN IVP Severe Pain (Pain Scale 7-10) 12/01/18 23:15 12/08/18 23:14 12/01/18 23:34 Nateglinide (Starlix) 120 mg TIAC ORAL 11/29/18 11:30 12/24/18 11:29 12/03/18 16:56 Nitroglycerin (Ntg) 0.4 mg Q5M X 3 DOSES PRN SL Prn Chest Pain 11/22/18 13:30 12/22/18 13:29 Ondansetron HCl (Zofran) 4 mg Q6H PRN IVP Nausea & Vomiting 11/22/18 13:30 12/22/18 13:29 Pantoprazole (Protonix) 40 mg EVERY 12 HOURS ORAL 11/24/18 21:00 12/24/18 20:59 12/03/18 09:43 Polyethylene Glycol (Miralax) 17 gm HSPRN PRN ORAL Constipation 11/22/18 13:30 12/22/18 13:29 Sucralfate (Carafate) 1 gm FOUR TIMES A DAY ORAL 11/24/18 21:00 12/24/18 20:59 12/03/18 17:00 Tamsulosin HCl (Flomax) 0.4 mg BEDTIME ORAL 11/22/18 21:00 12/22/18 20:59 12/02/18 20:45 Temazepam (Restoril) 15 mg HSPRN PRN ORAL Insomnia 11/29/18 21:15 12/06/18 21:14 12/02/18 00:27 Allergies: Coded Allergies: No Known Allergies (Unverified , 04/09/16) ROS Limited/Unobtainable: No Constitutional: Reports: no symptoms HEENT: Reports: no symptoms Cardiovascular: Reports: no symptoms Respiratory: Reports: no symptoms Gastrointestinal/Abdominal: Reports: no symptoms Genitourinary: Reports: no symptoms 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: Reports: no symptoms Subjective 83 YO M admitted with gastrointestinal hemorrhage. S/P endoscopy and colonoscopy 11/24/18. S/P transurethral bladder tumor resection 11/24/18. Cover for Lon Lowe Objective Last Vital Signs Date Time Temp Pulse Resp B/P (MAP) Pulse Ox O2 Delivery O2 Flow Rate FiO2 12/03/18 17:01 125/69 12/03/18 16:00 98.0 70 18 97 12/03/18 09:00 Room Air 11/26/18 10:12 4.0 Laboratory Tests Test 12/03/18 04:45 White Blood Count 8.3 K/UL (4.8-10.8) Red Blood Count 3.32 M/UL (4.70-6.10) L Hemoglobin 10.2 G/DL (14.2-18.0) L Hematocrit 29.6 % (42.0-52.0) L Mean Corpuscular Volume 89 FL (80-99) Mean Corpuscular Hemoglobin 30.6 PG (27.0-31.0) Mean Corpuscular Hemoglobin Concent 34.4 G/DL (32.0-36.0) Red Cell Distribution Width 11.1 % (11.6-14.8) L Platelet Count 172 K/UL (150-450) Mean Platelet Volume 6.0 FL (6.5-10.1) L Neutrophils (%) (Auto) 75.2 % (45.0-75.0) H Lymphocytes (%) (Auto) 17.3 % (20.0-45.0) L Monocytes (%) (Auto) 7.0 % (1.0-10.0) Eosinophils (%) (Auto) 0.0 % (0.0-3.0) Basophils (%) (Auto) 0.5 % (0.0-2.0) Sodium Level 140 MMOL/L (136-145) Potassium Level 4.0 MMOL/L (3.5-5.1) Chloride Level 106 MMOL/L (98-107) Carbon Dioxide Level 28 MMOL/L (21-32) Anion Gap 6 mmol/L (5-15) Blood Urea Nitrogen 15 mg/dL (7-18) Creatinine 1.1 MG/DL (0.55-1.30) Estimat Glomerular Filtration Rate mL/min (>60) Glucose Level 121 MG/DL (74-106) H Calcium Level 8.9 MG/DL (8.5-10.1) Intake and Output 12/02/18 12/03/18 19:00 07:00 Intake Total 1220 ml Output Total 325 ml 950 ml Balance 895 ml -950 ml Intake Oral 1220 ml Output Urine Total 950 ml Other 325 ml # Voids 8 Objective PHYSICAL EXAMINATION: GENERAL: The patient is awake, alert, responsive, very pleasant, but forgetful. HEAD AND NECK: Pupils are reactive to light. Extraocular movements intact. Neck was supple. No JVD. LUNGS: Good air entry. No wheezing or rales. Left side of the chest has a pacemaker. ABDOMEN: Soft, nondistended, and nontender. Positive bowel sounds. EXTREMITIES: No cyanosis, clubbing, or edema. NEUROLOGIC: OTHER [employer] II through XII grossly intact. Motor is 5/5 in all extremities. Gait was not assessed due to the patient's status. RECTAL/GENITOURINARY: Refused and deferred. Assessment/Plan Assessment/Plan ASSESSMENT: 1. Gastrointestinal bleed. 2. Anemia possible due to acute blood loss. 3. Hypokalemia. 4. Acute urinary tract infection. 5. Moderate left hydronephrosis with hydroureter. 6. Cardiac arrhythmia status post pacemaker. 7. Diabetes type 2. 8. Hypertension. 9. Gastritis 10. hemorrhoids 11. hematuria-Bladder cancer PLAN: 1. Admit the patient to medical floor. 2. We will follow up with the laboratory. 3. Clear liquid diet. 4. Gastrointestinal consultation with Dr. Hernandez. 5. Code status is Full Code at this time. 6. See Urology consultation, Dr. Allen S/P transurethral resection bladder tumor High grade urothelial carcinoma 7. S/P Esophagogastroduodenoscopy and colonoscopy 11/24/18. 8. We will follow up with urine culture and Cardiology consultation with Dr. Nj Valenzuela. 9. Protonix 40 mg BID and carafate 1 gm QID 10 Await Oncology consult Jean-Claude Peter MD Dec 03, 2018 18:21
--- NOTE | 2018-12-03 19:35 | NUR ---
HAND-OFF: Report given to DONELL GERMAIN.
--- NOTE | 2018-12-03 19:37 | NUR ---
NURSE NOTES: Received patient in semi fowlers position in bed, resting and alert to name and place but slightly confused . Patient denies pain. No signs of respiratory distress. IV asymptomatic and intact. L nephrostomy intact and draining copious serosanguinous urine. Condom cath out of place and voided. Will change and replace condom catheter. Bed in lowest position, bed locked and bed alarm on. call light within reach. Will continue to monitor.
[2018-12-03 20:00] VITALS: BP 132/54
[2018-12-03] MEDS: Tamsulosin 0.4mg cap ORAL SCH (20:54)
[2018-12-04] VITALS: BP 130/56
[2018-12-04] MEDS: D5 1/2NS 1,000 ML IV SCH ×3 (02:17→17:37)
[2018-12-04 04:00] VITALS: BP 131/52
[2018-12-04] MEDS: NovoLOG Insulin Flexpen SUBQ SCH ×4 (06:13→21:54)
[2018-12-04 07:45] LABS: HEMATOCRIT 28.5 % (42.0-52.0); HEMOGLOBIN 9.7 G/DL (14.2-18.0); LYMPHOCYTES % (AUTO) 20.1 % (20.0-45.0); MEAN CORPUSCULAR VOLUME 89 FL (80-99); PLATELET COUNT 184 K/UL (150-450); RED CELL DISTRIBUTION WIDTH 10.9 % (11.6-14.8); WHITE BLOOD COUNT 7.8 K/UL (4.8-10.8)
--- NOTE | 2018-12-04 07:57 | NUR ---
HAND-OFF: Report given to DONELL Nunez.
[2018-12-04 08:00] VITALS: BP 124/71
--- NOTE | 2018-12-04 08:00 | NUR ---
NURSE NOTES: Received patient in semi fowlers position in bed, patient awake, alert oriented x2-3, with period of forgetfull, no sign of distress, denies pain.on IVF patent and infusing well. Left nephrostomy intact and draining copious serosanguinous urine. Condom cath in place.on fall precaution, Bed in lowest position, bed locked and bed alarm on. call light within reach. Will continue to monitor husam robbins
[2018-12-04 08:06] LABS: ANION GAP 7 mmol/L (5-15); BLOOD UREA NITROGEN 14 mg/dL (7-18); CARBON DIOXIDE 29 MMOL/L (21-32); CHLORIDE 106 MMOL/L (98-107); CREATININE 1.1 MG/DL (0.55-1.30); POTASSIUM 3.9 MMOL/L (3.5-5.1); SODIUM 142 MMOL/L (136-145)
--- NOTE | 2018-12-04 08:06 | General Progress Note ---
Assessment/Plan Problem List: (1) Acute metabolic encephalopathy ICD Codes: G93.41 - Metabolic encephalopathy SNOMED: 10282592, 605812236 (2) Hyperthyroidism ICD Codes: E05.90 - Thyrotoxicosis, unspecified without thyrotoxic crisis or storm SNOMED: 83351321 (3) Diabetes mellitus ICD Codes: E11.9 - Type 2 diabetes mellitus without complications SNOMED: 21541954 (4) Bladder neoplasm ICD Codes: D49.4 - Neoplasm of unspecified behavior of bladder SNOMED: 270099613 (5) Hydronephrosis ICD Codes: N13.30 - Unspecified hydronephrosis SNOMED: 30892251 Status: stable Assessment/Plan: thyroid function improved on Tapazole TSI pending continue Tapazole 10 mg daily continue Starlix 120 mg ac tid continue NISS ac / hs Subjective Allergies: Coded Allergies: No Known Allergies (Unverified , 04/09/16) All Systems: reviewed and negative except above Subjective events noted doing better having his breakfast Item Value Date Time Bedside Blood Glucose 108 mg/dl 12/04/18 0628 Bedside Blood Glucose 94 mg/dl 12/03/18 2100 Bedside Blood Glucose 160 mg/dl H 12/03/18 1656 Bedside Blood Glucose 116 mg/dl 12/03/18 1202 Objective Last 24 Hour Vital Signs Date Time Temp Pulse Resp B/P (MAP) Pulse Ox O2 Delivery O2 Flow Rate FiO2 12/04/18 04:00 98.4 61 18 131/52 (78) 100 12/04/18 00:00 98.4 62 18 130/56 (80) 99 12/03/18 21:00 Room Air 12/03/18 20:00 98.4 62 20 132/54 (80) 97 12/03/18 17:01 125/69 12/03/18 16:00 98.0 70 18 125/69 (87) 97 12/03/18 12:00 98.7 77 18 128/69 (88) 98 12/03/18 09:43 73 121/66 12/03/18 09:43 121/66 12/03/18 09:00 Room Air Intake and Output 12/03/18 12/04/18 19:00 07:00 Intake Total 1990 ml 450 ml Output Total 2400 ml Balance 1990 ml -1950 ml Intake Oral 1240 ml IV Total 750 ml 450 ml Output Urine Total 300 ml Other 2100 ml # Voids 10 4 Laboratory Tests 12/04/18 05:50: White Blood Count 7.8, Red Blood Count 3.20L, Hemoglobin 9.7L, Hematocrit 28.5L , Mean Corpuscular Volume 89, Mean Corpuscular Hemoglobin 30.4, Mean Corpuscular Hemoglobin Concent 34.2, Red Cell Distribution Width 10.9L, Platelet Count 184, Mean Platelet Volume 5.9L, Neutrophils (%) (Auto) 72.0, Lymphocytes (%) (Auto) 20.1, Monocytes (%) (Auto) 7.0, Eosinophils (%) (Auto) 0.0, Basophils (%) (Auto) 1.0, Sodium Level [Pending], Potassium Level [Pending] , Chloride Level [Pending], Carbon Dioxide Level [Pending], Blood Urea Nitrogen [Pending], Creatinine [Pending], Estimat Glomerular Filtration Rate [Pending], Glucose Level [Pending], Calcium Level [Pending] Height (Feet): 6 Height (Inches): 6.00 Weight (Pounds): 185 General Appearance: no apparent distress Neck: normal alignment Cardiovascular: normal rate Respiratory/Chest: lungs clear Abdomen: normal bowel sounds Edema: no edema noted Arm (L), no edema noted Arm (R), no edema noted Leg (L), no edema noted Leg (R), no edema noted Pedal (L), no edema noted Pedal (R), no edema noted Generalized Objective Current Medications Medications (Trade) Dose Ordered Sig/Levi Route PRN Reason Start Time Stop Time Status Last Admin Dose Admin Acetaminophen (Tylenol) 650 mg Q4H PRN ORAL fever 11/22/18 13:30 12/22/18 13:29 Al Hydroxide/Mg Hydroxide (Mylanta II) 30 ml Q6H PRN ORAL dyspepsia 11/22/18 13:30 12/22/18 13:29 Amlodipine Besylate (Norvasc) 2.5 mg DAILY ORAL 11/29/18 09:00 12/29/18 08:59 12/03/18 09:43 Dextrose (Dextrose 50%) 25 ml Q30M PRN IV Hypoglycemia 11/22/18 13:30 12/22/18 13:23 11/22/18 17:21 Dextrose (Dextrose 50%) 50 ml Q30M PRN IV hypoglycemia 11/22/18 13:30 12/22/18 13:29 Dextrose/Sodium Chloride 1,000 ml @ 75 mls/hr [id number] IV 11/22/18 13:16 12/22/18 13:15 12/04/18 05:58 Diphenhydramine HCl (Benadryl) 25 mg Q6H PRN ORAL Itching/Pruritis 11/22/18 13:30 12/22/18 13:29 Finasteride (Proscar) 5 mg DAILY ORAL 11/22/18 19:45 12/22/18 19:44 12/03/18 09:43 Hydralazine HCl (Apresoline) 50 mg Q6H PRN ORAL SBP > 160 11/22/18 17:30 12/22/18 17:29 11/27/18 01:26 Insulin Aspart (NovoLOG) BEFORE MEALS AND HS SUBQ 11/22/18 16:30 12/22/18 16:29 12/03/18 16:56 Irbesartan (Avapro) 150 mg BID ORAL 11/25/18 09:00 12/25/18 08:59 12/03/18 17:01 Methimazole (Tapazole) 10 mg DAILY ORAL 11/29/18 09:00 12/24/18 08:59 12/03/18 09:43 Morphine Sulfate (Morphine Sulfate) 2 mg Q4H PRN IVP Severe Pain (Pain Scale 7-10) 12/01/18 23:15 12/08/18 23:14 12/01/18 23:34 Nateglinide (Starlix) 120 mg TIAC ORAL 11/29/18 11:30 12/24/18 11:29 12/04/18 05:58 Nitroglycerin (Ntg) 0.4 mg Q5M X 3 DOSES PRN SL Prn Chest Pain 11/22/18 13:30 12/22/18 13:29 Ondansetron HCl (Zofran) 4 mg Q6H PRN IVP Nausea & Vomiting 11/22/18 13:30 12/22/18 13:29 Pantoprazole (Protonix) 40 mg EVERY 12 HOURS ORAL 11/24/18 21:00 12/24/18 20:59 12/03/18 20:54 Polyethylene Glycol (Miralax) 17 gm HSPRN PRN ORAL Constipation 11/22/18 13:30 12/22/18 13:29 Sucralfate (Carafate) 1 gm FOUR TIMES A DAY ORAL 11/24/18 21:00 12/24/18 20:59 12/03/18 20:54 Tamsulosin HCl (Flomax) 0.4 mg BEDTIME ORAL 11/22/18 21:00 12/22/18 20:59 12/03/18 20:54 Temazepam (Restoril) 15 mg HSPRN PRN ORAL Insomnia 11/29/18 21:15 12/06/18 21:14 12/02/18 00:27 Kashif Adorno MD Dec 04, 2018 08:06
[2018-12-04] MEDS: Irbesartan 150mg tablet ORAL SCH ×2 (08:10→17:07)
[2018-12-04] MEDS: Sucralfate 1gm tab ORAL SCH (08:10)
--- NOTE | 2018-12-04 09:30 | General Progress Note ---
Assessment/Plan Problem List: (1) Hyperthyroidism ICD Codes: E05.90 - Thyrotoxicosis, unspecified without thyrotoxic crisis or storm SNOMED: 99520217 (2) Chronic cerebrovascular accident (CVA) ICD Codes: I69.30 - Unspecified sequelae of cerebral infarction SNOMED: 292788911 (3) Bleeding hemorrhoid ICD Codes: K64.9 - Unspecified hemorrhoids SNOMED: 25530118 (4) Anemia ICD Codes: D64.9 - Anemia, unspecified SNOMED: 328454835 (5) HTN (hypertension) ICD Codes: I10 - Essential (primary) hypertension SNOMED: 26708891 (6) Diabetes mellitus ICD Codes: E11.9 - Type 2 diabetes mellitus without complications SNOMED: 64147104 (7) Bladder neoplasm ICD Codes: D49.4 - Neoplasm of unspecified behavior of bladder SNOMED: 261425406 Status: stable Assessment/Plan: SUMMARY OF FINDINGS: 1. Gastritis and possibly gastric ulceration, status post biopsy. 2. One colonic polyp removed, see above for details. 3. Internal hemorrhoids. Occult blood stool negative Patient passed video swallow RECOMMENDATIONS: Follow up pathology. >> H. pylori negative Resume diet. Follow with Urology given diagnosis of bladder cancer. monitor H&H, prn transfusions bowel regime ppi fu labs dc planning dc carafate Subjective ROS Limited/Unobtainable: Yes Allergies: Coded Allergies: No Known Allergies (Unverified , 04/09/16) Objective Last 24 Hour Vital Signs Date Time Temp Pulse Resp B/P (MAP) Pulse Ox O2 Delivery O2 Flow Rate FiO2 12/04/18 08:21 Room Air 12/04/18 08:10 61 131/52 12/04/18 08:10 131/52 12/04/18 08:00 98.0 63 18 124/71 (88) 99 12/04/18 04:00 98.4 61 18 131/52 (78) 100 12/04/18 00:00 98.4 62 18 130/56 (80) 99 12/03/18 21:00 Room Air 12/03/18 20:00 98.4 62 20 132/54 (80) 97 12/03/18 17:01 125/69 12/03/18 16:00 98.0 70 18 125/69 (87) 97 12/03/18 12:00 98.7 77 18 128/69 (88) 98 12/03/18 09:43 73 121/66 12/03/18 09:43 121/66 Intake and Output 12/03/18 12/04/18 19:00 07:00 Intake Total 1990 ml 450 ml Output Total 2400 ml Balance 1990 ml -1950 ml Intake Oral 1240 ml IV Total 750 ml 450 ml Output Urine Total 300 ml Other 2100 ml # Voids 10 4 Laboratory Tests 12/04/18 05:50: White Blood Count 7.8, Red Blood Count 3.20L, Hemoglobin 9.7L, Hematocrit 28.5L , Mean Corpuscular Volume 89, Mean Corpuscular Hemoglobin 30.4, Mean Corpuscular Hemoglobin Concent 34.2, Red Cell Distribution Width 10.9L, Platelet Count 184, Mean Platelet Volume 5.9L, Neutrophils (%) (Auto) 72.0, Lymphocytes (%) (Auto) 20.1, Monocytes (%) (Auto) 7.0, Eosinophils (%) (Auto) 0.0, Basophils (%) (Auto) 1.0, Sodium Level 142, Potassium Level 3.9, Chloride Level 106, Carbon Dioxide Level 29, Anion Gap 7, Blood Urea Nitrogen 14, Creatinine 1.1, Estimat Glomerular Filtration Rate , Glucose Level 105, Calcium Level 9.0 Height (Feet): 6 Height (Inches): 6.00 Weight (Pounds): 185 General Appearance: alert EENT: normal ENT inspection Neck: normal alignment Cardiovascular: normal rate Respiratory/Chest: lungs clear Abdomen: normal bowel sounds, non tender, soft Extremities: non-tender Prince Hernandez MD Dec 04, 2018 09:30
--- NOTE | 2018-12-04 10:24 | Infectious Diseases Prog Note ---
Assessment/Plan Assessment/Plan Assessment: Hematochezia -11/24 SP EGD/Colonoscopy: gastritis, hemorrhoids L hydronephrosis/L Hydroureter 2ry to extensive bladder tumor -11/25 SP Cystoscopy, urethral calibration, transurethral resection of extensive bladder tumor with fulguration, and right retrograde pyelogram. -Findings: The patient had what appeared to be a large bladder tumor that involved most of the left side of the bladder extending posteriorly and completely obliterating the left ureteral orifice. I was unable to place a stent on the left side. - -CT abd/p: Limited assessment of the GI tract, due to lack of enteric contrast administration. Moderate left hydronephrosis and hydroureter. Hydroureter extends to the bladder, where there is asymmetric posterolateral wall thickening raises concern for neoplasm. Further evaluation with cystoscopy should be considered. There is also generalized wall thickening, possibly on the basis of cystitis or chronic bladder outlet obstruction. No definite findings to suggest etiology of stated clinical history of GI bleed. Cholelithiasis. Basilar pulmonary atelectasis and equivocal slight interstitial congestion. L1 vertebral body compression fracture deformity, age indeterminate. Consider MRI for further evaluation if this is clinically relevant Afebrile NO leukocytosis -CXR: No acute process Pyuria Funguria -u/a wbc 10-15, nit +, leuk est +3; ucx <10 yeast Encephalopathy -Head CT: Chronic and age-related changes is noted. Negative for acute intracranial bleed or mass effect. 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 Will continue to follow along with you Subjective Allergies: Coded Allergies: No Known Allergies (Unverified , 04/09/16) Subjective afebrile no leukocytosis now off abx Objective Vital Signs Last 24 Hour Vital Signs Date Time Temp Pulse Resp B/P (MAP) Pulse Ox O2 Delivery O2 Flow Rate FiO2 12/04/18 08:21 Room Air 12/04/18 08:10 61 131/52 12/04/18 08:10 131/52 12/04/18 08:00 98.0 63 18 124/71 (88) 99 12/04/18 04:00 98.4 61 18 131/52 (78) 100 12/04/18 00:00 98.4 62 18 130/56 (80) 99 12/03/18 21:00 Room Air 12/03/18 20:00 98.4 62 20 132/54 (80) 97 12/03/18 17:01 125/69 12/03/18 16:00 98.0 70 18 125/69 (87) 97 12/03/18 12:00 98.7 77 18 128/69 (88) 98 Height (Feet): 6 Height (Inches): 6.00 Weight (Pounds): 185 Objective GENERAL: NAD HEAD AND NECK: NCAT, MMM, EOMI LUNGS: CTAB, No W ABDOMEN: Soft, nondistended, and nontender. Positive bowel sounds. Heart: RRR, S1, S2 Laboratory Tests Test 12/04/18 05:50 White Blood Count 7.8 K/UL (4.8-10.8) Red Blood Count 3.20 M/UL (4.70-6.10) L Hemoglobin 9.7 G/DL (14.2-18.0) L Hematocrit 28.5 % (42.0-52.0) L Mean Corpuscular Volume 89 FL (80-99) Mean Corpuscular Hemoglobin 30.4 PG (27.0-31.0) Mean Corpuscular Hemoglobin Concent 34.2 G/DL (32.0-36.0) Red Cell Distribution Width 10.9 % (11.6-14.8) L Platelet Count 184 K/UL (150-450) Mean Platelet Volume 5.9 FL (6.5-10.1) L Neutrophils (%) (Auto) 72.0 % (45.0-75.0) Lymphocytes (%) (Auto) 20.1 % (20.0-45.0) Monocytes (%) (Auto) 7.0 % (1.0-10.0) Eosinophils (%) (Auto) 0.0 % (0.0-3.0) Basophils (%) (Auto) 1.0 % (0.0-2.0) Sodium Level 142 MMOL/L (136-145) Potassium Level 3.9 MMOL/L (3.5-5.1) Chloride Level 106 MMOL/L (98-107) Carbon Dioxide Level 29 MMOL/L (21-32) Anion Gap 7 mmol/L (5-15) Blood Urea Nitrogen 14 mg/dL (7-18) Creatinine 1.1 MG/DL (0.55-1.30) Estimat Glomerular Filtration Rate mL/min (>60) Glucose Level 105 MG/DL (74-106) Calcium Level 9.0 MG/DL (8.5-10.1) Current Medications Medications (Trade) Dose Ordered Sig/Levi Route PRN Reason Start Time Stop Time Status Last Admin Dose Admin Acetaminophen (Tylenol) 650 mg Q4H PRN ORAL fever 11/22/18 13:30 12/22/18 13:29 Al Hydroxide/Mg Hydroxide (Mylanta II) 30 ml Q6H PRN ORAL dyspepsia 11/22/18 13:30 12/22/18 13:29 Amlodipine Besylate (Norvasc) 2.5 mg DAILY ORAL 11/29/18 09:00 12/29/18 08:59 12/04/18 08:10 Dextrose (Dextrose 50%) 25 ml Q30M PRN IV Hypoglycemia 11/22/18 13:30 12/22/18 13:23 11/22/18 17:21 Dextrose (Dextrose 50%) 50 ml Q30M PRN IV hypoglycemia 11/22/18 13:30 12/22/18 13:29 Dextrose/Sodium Chloride 1,000 ml @ 75 mls/hr [id number] IV 11/22/18 13:16 12/22/18 13:15 12/04/18 05:58 Diphenhydramine HCl (Benadryl) 25 mg Q6H PRN ORAL Itching/Pruritis 11/22/18 13:30 12/22/18 13:29 Finasteride (Proscar) 5 mg DAILY ORAL 11/22/18 19:45 12/22/18 19:44 12/04/18 08:09 Hydralazine HCl (Apresoline) 50 mg Q6H PRN ORAL SBP > 160 11/22/18 17:30 12/22/18 17:29 11/27/18 01:26 Insulin Aspart (NovoLOG) BEFORE MEALS AND HS SUBQ 11/22/18 16:30 12/22/18 16:29 12/03/18 16:56 Irbesartan (Avapro) 150 mg BID ORAL 11/25/18 09:00 12/25/18 08:59 12/04/18 08:10 Methimazole (Tapazole) 10 mg DAILY ORAL 11/29/18 09:00 12/24/18 08:59 12/04/18 08:10 Morphine Sulfate (Morphine Sulfate) 2 mg Q4H PRN IVP Severe Pain (Pain Scale 7-10) 12/01/18 23:15 12/08/18 23:14 12/01/18 23:34 Nateglinide (Starlix) 120 mg TIAC ORAL 11/29/18 11:30 12/24/18 11:29 12/04/18 05:58 Nitroglycerin (Ntg) 0.4 mg Q5M X 3 DOSES PRN SL Prn Chest Pain 11/22/18 13:30 12/22/18 13:29 Ondansetron HCl (Zofran) 4 mg Q6H PRN IVP Nausea & Vomiting 11/22/18 13:30 12/22/18 13:29 Pantoprazole (Protonix) 40 mg DAILY ORAL 12/05/18 09:00 12/24/18 20:59 Polyethylene Glycol (Miralax) 17 gm HSPRN PRN ORAL Constipation 11/22/18 13:30 12/22/18 13:29 Tamsulosin HCl (Flomax) 0.4 mg BEDTIME ORAL 11/22/18 21:00 12/22/18 20:59 12/03/18 20:54 Temazepam (Restoril) 15 mg HSPRN PRN ORAL Insomnia 11/29/18 21:15 12/06/18 21:14 12/02/18 00:27 Tawny Darby M.D. Dec 04, 2018 10:24
--- NOTE | 2018-12-04 11:15 | Pulmonology Progress Note ---
Assessment/Plan Problems: (1) Lower GI bleed (2) Hydronephrosis (3) Anemia (4) Bladder neoplasm (5) Chronic cerebrovascular accident (CVA) (6) Diabetes mellitus (7) Alzheimer's dementia (8) HTN (hypertension) Assessment/Plan no new complains nephrostomy in place. tolerated cystoscopy follow up with pathology, still not available. looks comfortable sliding scale monitor bp f/u urology recommendations prbc prn check H/H dvt prophylaxis. Subjective ROS Limited/Unobtainable: No Constitutional: Reports: no symptoms HEENT: Repors: no symptoms Respiratory: Reports: no symptoms Allergies: Coded Allergies: No Known Allergies (Unverified , 04/09/16) Objective Last 24 Hour Vital Signs Date Time Temp Pulse Resp B/P (MAP) Pulse Ox O2 Delivery O2 Flow Rate FiO2 12/04/18 08:21 Room Air 12/04/18 08:10 61 131/52 12/04/18 08:10 131/52 12/04/18 08:00 98.0 63 18 124/71 (88) 99 12/04/18 04:00 98.4 61 18 131/52 (78) 100 12/04/18 00:00 98.4 62 18 130/56 (80) 99 12/03/18 21:00 Room Air 12/03/18 20:00 98.4 62 20 132/54 (80) 97 12/03/18 17:01 125/69 12/03/18 16:00 98.0 70 18 125/69 (87) 97 12/03/18 12:00 98.7 77 18 128/69 (88) 98 Intake and Output 12/03/18 12/04/18 19:00 07:00 Intake Total 1990 ml 525 ml Output Total 2400 ml Balance 1990 ml -1875 ml Intake Oral 1240 ml IV Total 750 ml 525 ml Output Urine Total 300 ml Other 2100 ml # Voids 10 4 Objective nephrostomy still draining blood tinged urine, but less than previous day Laboratory Tests 12/04/18 05:50: White Blood Count 7.8, Red Blood Count 3.20L, Hemoglobin 9.7L, Hematocrit 28.5L , Mean Corpuscular Volume 89, Mean Corpuscular Hemoglobin 30.4, Mean Corpuscular Hemoglobin Concent 34.2, Red Cell Distribution Width 10.9L, Platelet Count 184, Mean Platelet Volume 5.9L, Neutrophils (%) (Auto) 72.0, Lymphocytes (%) (Auto) 20.1, Monocytes (%) (Auto) 7.0, Eosinophils (%) (Auto) 0.0, Basophils (%) (Auto) 1.0, Sodium Level 142, Potassium Level 3.9, Chloride Level 106, Carbon Dioxide Level 29, Anion Gap 7, Blood Urea Nitrogen 14, Creatinine 1.1, Estimat Glomerular Filtration Rate , Glucose Level 105, Calcium Level 9.0 Current Medications Medications (Trade) Dose Ordered Sig/Levi Route PRN Reason Start Time Stop Time Status Last Admin Dose Admin Acetaminophen (Tylenol) 650 mg Q4H PRN ORAL fever 11/22/18 13:30 12/22/18 13:29 Al Hydroxide/Mg Hydroxide (Mylanta II) 30 ml Q6H PRN ORAL dyspepsia 11/22/18 13:30 12/22/18 13:29 Amlodipine Besylate (Norvasc) 2.5 mg DAILY ORAL 11/29/18 09:00 12/29/18 08:59 12/04/18 08:10 Dextrose (Dextrose 50%) 25 ml Q30M PRN IV Hypoglycemia 11/22/18 13:30 12/22/18 13:23 11/22/18 17:21 Dextrose (Dextrose 50%) 50 ml Q30M PRN IV hypoglycemia 11/22/18 13:30 12/22/18 13:29 Dextrose/Sodium Chloride 1,000 ml @ 75 mls/hr [id number] IV 11/22/18 13:16 12/22/18 13:15 12/04/18 05:58 Diphenhydramine HCl (Benadryl) 25 mg Q6H PRN ORAL Itching/Pruritis 11/22/18 13:30 12/22/18 13:29 Finasteride (Proscar) 5 mg DAILY ORAL 11/22/18 19:45 12/22/18 19:44 12/04/18 08:09 Hydralazine HCl (Apresoline) 50 mg Q6H PRN ORAL SBP > 160 11/22/18 17:30 12/22/18 17:29 11/27/18 01:26 Insulin Aspart (NovoLOG) BEFORE MEALS AND HS SUBQ 11/22/18 16:30 12/22/18 16:29 12/03/18 16:56 Irbesartan (Avapro) 150 mg BID ORAL 11/25/18 09:00 12/25/18 08:59 12/04/18 08:10 Methimazole (Tapazole) 10 mg DAILY ORAL 11/29/18 09:00 12/24/18 08:59 12/04/18 08:10 Morphine Sulfate (Morphine Sulfate) 2 mg Q4H PRN IVP Severe Pain (Pain Scale 7-10) 12/01/18 23:15 12/08/18 23:14 12/01/18 23:34 Nateglinide (Starlix) 120 mg TIAC ORAL 11/29/18 11:30 12/24/18 11:29 12/04/18 05:58 Nitroglycerin (Ntg) 0.4 mg Q5M X 3 DOSES PRN SL Prn Chest Pain 11/22/18 13:30 12/22/18 13:29 Ondansetron HCl (Zofran) 4 mg Q6H PRN IVP Nausea & Vomiting 11/22/18 13:30 12/22/18 13:29 Pantoprazole (Protonix) 40 mg DAILY ORAL 12/05/18 09:00 12/24/18 20:59 Polyethylene Glycol (Miralax) 17 gm HSPRN PRN ORAL Constipation 11/22/18 13:30 12/22/18 13:29 Tamsulosin HCl (Flomax) 0.4 mg BEDTIME ORAL 11/22/18 21:00 12/22/18 20:59 12/03/18 20:54 Temazepam (Restoril) 15 mg HSPRN PRN ORAL Insomnia 11/29/18 21:15 12/06/18 21:14 12/02/18 00:27 Og Hinkle MD Dec 04, 2018 11:15
[2018-12-04 11:46] VITALS: BP 119/58
--- NOTE | 2018-12-04 12:30 | NUR ---
nurse notes nephrostomy bag leaking, am care , bed linen completely changed, charge nurse and nursing supervisor fur dressing aware, but nephostomy bag un available husam robbins
--- NOTE | 2018-12-04 15:35 | Urology Progress Note ---
Assessment/Plan Status: stable Assessment/Plan: 1. Left hydronephrosis. 2. Hematuria. 3. Pyuria. 4. Proteinuria. 5. Benign prostatic hypertrophy. 6. Incontinence. 7. Neurogenic bladder. 8. Cystitis. 9. Bladder cancer. 10. POD # 10, cysto/TURBT monitor clinically hernandez out and voiding left hydro secondary to bladder tumor left nephrostomy placed 11/26, keep off suction hand irrigated and do PRN unable to place antegrade ureteral stent flomax and proscar monitor for voiding and reinsert hernandez PRN s/p diflucan med onc eval d/w Dr. Hinkle, will d/w IR to reattempt antegrade stent change nephrostomy bag Subjective Allergies: Coded Allergies: No Known Allergies (Unverified , 04/09/16) Subjective all noted, feels fair, voiding, nephrostomy bag leaking Objective Last 24 Hour Vital Signs Date Time Temp Pulse Resp B/P (MAP) Pulse Ox O2 Delivery O2 Flow Rate FiO2 12/04/18 11:46 98.2 63 18 119/58 (78) 99 12/04/18 08:21 Room Air 12/04/18 08:10 61 131/52 12/04/18 08:10 131/52 12/04/18 08:00 98.0 63 18 124/71 (88) 99 12/04/18 04:00 98.4 61 18 131/52 (78) 100 12/04/18 00:00 98.4 62 18 130/56 (80) 99 12/03/18 21:00 Room Air 12/03/18 20:00 98.4 62 20 132/54 (80) 97 12/03/18 17:01 125/69 12/03/18 16:00 98.0 70 18 125/69 (87) 97 Intake and Output 12/03/18 12/04/18 19:00 07:00 Intake Total 1990 ml 525 ml Output Total 2400 ml Balance 1990 ml -1875 ml Intake Oral 1240 ml IV Total 750 ml 525 ml Output Urine Total 300 ml Other 2100 ml # Voids 10 4 Microbiology Date/Time Source Procedure Growth Status 11/22/18 12:20 Nasal Nares MRSA Culture - Final NO METHICILLIN RESISTANT STAPH AUREUS... Complete 11/22/18 11:15 Urine,Clean Catch Urine Culture - Final YEAST Complete 11/22/18 12:20 Rectal Mucosa VRE Culture - Final NO VANCOMYCIN RESISTANT ENTEROCOCCUS ... Complete 11/22/18 12:20 Rectal Mucosa - Final NO CARBAPENEM-RESISTANT ENTEROBACTERI... Complete Current Medications Medications (Trade) Dose Ordered Sig/Levi Route PRN Reason Start Time Stop Time Status Last Admin Dose Admin Acetaminophen (Tylenol) 650 mg Q4H PRN ORAL fever 11/22/18 13:30 12/22/18 13:29 Al Hydroxide/Mg Hydroxide (Mylanta II) 30 ml Q6H PRN ORAL dyspepsia 11/22/18 13:30 12/22/18 13:29 Amlodipine Besylate (Norvasc) 2.5 mg DAILY ORAL 11/29/18 09:00 12/29/18 08:59 12/04/18 08:10 Dextrose (Dextrose 50%) 25 ml Q30M PRN IV Hypoglycemia 11/22/18 13:30 12/22/18 13:23 11/22/18 17:21 Dextrose (Dextrose 50%) 50 ml Q30M PRN IV hypoglycemia 11/22/18 13:30 12/22/18 13:29 Dextrose/Sodium Chloride 1,000 ml @ 75 mls/hr [id number] IV 11/22/18 13:16 12/22/18 13:15 12/04/18 05:58 Diphenhydramine HCl (Benadryl) 25 mg Q6H PRN ORAL Itching/Pruritis 11/22/18 13:30 12/22/18 13:29 Finasteride (Proscar) 5 mg DAILY ORAL 11/22/18 19:45 12/22/18 19:44 12/04/18 08:09 Hydralazine HCl (Apresoline) 50 mg Q6H PRN ORAL SBP > 160 11/22/18 17:30 12/22/18 17:29 11/27/18 01:26 Insulin Aspart (NovoLOG) BEFORE MEALS AND HS SUBQ 11/22/18 16:30 12/22/18 16:29 12/04/18 11:29 Irbesartan (Avapro) 150 mg BID ORAL 11/25/18 09:00 12/25/18 08:59 12/04/18 08:10 Methimazole (Tapazole) 10 mg DAILY ORAL 11/29/18 09:00 12/24/18 08:59 12/04/18 08:10 Morphine Sulfate (Morphine Sulfate) 2 mg Q4H PRN IVP Severe Pain (Pain Scale 7-10) 12/01/18 23:15 12/08/18 23:14 12/01/18 23:34 Nateglinide (Starlix) 120 mg TIAC ORAL 11/29/18 11:30 12/24/18 11:29 12/04/18 11:27 Nitroglycerin (Ntg) 0.4 mg Q5M X 3 DOSES PRN SL Prn Chest Pain 11/22/18 13:30 12/22/18 13:29 Ondansetron HCl (Zofran) 4 mg Q6H PRN IVP Nausea & Vomiting 11/22/18 13:30 12/22/18 13:29 Pantoprazole (Protonix) 40 mg DAILY ORAL 12/05/18 09:00 12/24/18 20:59 Polyethylene Glycol (Miralax) 17 gm HSPRN PRN ORAL Constipation 11/22/18 13:30 12/22/18 13:29 Tamsulosin HCl (Flomax) 0.4 mg BEDTIME ORAL 11/22/18 21:00 12/22/18 20:59 12/03/18 20:54 Temazepam (Restoril) 15 mg HSPRN PRN ORAL Insomnia 11/29/18 21:15 12/06/18 21:14 12/02/18 00:27 Laboratory Tests 12/04/18 05:50: White Blood Count 7.8, Red Blood Count 3.20L, Hemoglobin 9.7L, Hematocrit 28.5L , Mean Corpuscular Volume 89, Mean Corpuscular Hemoglobin 30.4, Mean Corpuscular Hemoglobin Concent 34.2, Red Cell Distribution Width 10.9L, Platelet Count 184, Mean Platelet Volume 5.9L, Neutrophils (%) (Auto) 72.0, Lymphocytes (%) (Auto) 20.1, Monocytes (%) (Auto) 7.0, Eosinophils (%) (Auto) 0.0, Basophils (%) (Auto) 1.0, Sodium Level 142, Potassium Level 3.9, Chloride Level 106, Carbon Dioxide Level 29, Anion Gap 7, Blood Urea Nitrogen 14, Creatinine 1.1, Estimat Glomerular Filtration Rate , Glucose Level 105, Calcium Level 9.0 Height (Feet): 6 Height (Inches): 6.00 Weight (Pounds): 185 Objective exam stable left nephrostomy blood-tinged final path noted Macho Allen MD Dec 04, 2018 15:35
[2018-12-04 16:00] VITALS: BP_SYST 119; BP_SYST 130; BP_DIAS 58; BP_DIAS 59
--- NOTE | 2018-12-04 16:05 | Internal Med Progress Note ---
Subjective Date of Service: Dec 04, 2018 Physician Name Jean-Claude Peter Attending Physician Jaziel Lowe MD Current Medications Medications (Trade) Dose Ordered Sig/Levi Route PRN Reason Start Time Stop Time Status Last Admin Dose Admin Acetaminophen (Tylenol) 650 mg Q4H PRN ORAL fever 11/22/18 13:30 12/22/18 13:29 Al Hydroxide/Mg Hydroxide (Mylanta II) 30 ml Q6H PRN ORAL dyspepsia 11/22/18 13:30 12/22/18 13:29 Amlodipine Besylate (Norvasc) 2.5 mg DAILY ORAL 11/29/18 09:00 12/29/18 08:59 12/04/18 08:10 Dextrose (Dextrose 50%) 25 ml Q30M PRN IV Hypoglycemia 11/22/18 13:30 12/22/18 13:23 11/22/18 17:21 Dextrose (Dextrose 50%) 50 ml Q30M PRN IV hypoglycemia 11/22/18 13:30 12/22/18 13:29 Dextrose/Sodium Chloride 1,000 ml @ 75 mls/hr [id number] IV 11/22/18 13:16 12/22/18 13:15 12/04/18 05:58 Diphenhydramine HCl (Benadryl) 25 mg Q6H PRN ORAL Itching/Pruritis 11/22/18 13:30 12/22/18 13:29 Finasteride (Proscar) 5 mg DAILY ORAL 11/22/18 19:45 12/22/18 19:44 12/04/18 08:09 Hydralazine HCl (Apresoline) 50 mg Q6H PRN ORAL SBP > 160 11/22/18 17:30 12/22/18 17:29 11/27/18 01:26 Insulin Aspart (NovoLOG) BEFORE MEALS AND HS SUBQ 11/22/18 16:30 12/22/18 16:29 12/04/18 11:29 Irbesartan (Avapro) 150 mg BID ORAL 11/25/18 09:00 12/25/18 08:59 12/04/18 08:10 Methimazole (Tapazole) 10 mg DAILY ORAL 11/29/18 09:00 12/24/18 08:59 12/04/18 08:10 Morphine Sulfate (Morphine Sulfate) 2 mg Q4H PRN IVP Severe Pain (Pain Scale 7-10) 12/01/18 23:15 12/08/18 23:14 12/01/18 23:34 Nateglinide (Starlix) 120 mg TIAC ORAL 11/29/18 11:30 12/24/18 11:29 12/04/18 11:27 Nitroglycerin (Ntg) 0.4 mg Q5M X 3 DOSES PRN SL Prn Chest Pain 11/22/18 13:30 12/22/18 13:29 Ondansetron HCl (Zofran) 4 mg Q6H PRN IVP Nausea & Vomiting 11/22/18 13:30 12/22/18 13:29 Pantoprazole (Protonix) 40 mg DAILY ORAL 12/05/18 09:00 12/24/18 20:59 Polyethylene Glycol (Miralax) 17 gm HSPRN PRN ORAL Constipation 11/22/18 13:30 12/22/18 13:29 Tamsulosin HCl (Flomax) 0.4 mg BEDTIME ORAL 11/22/18 21:00 12/22/18 20:59 12/03/18 20:54 Temazepam (Restoril) 15 mg HSPRN PRN ORAL Insomnia 11/29/18 21:15 12/06/18 21:14 12/02/18 00:27 Allergies: Coded Allergies: No Known Allergies (Unverified , 04/09/16) Subjective 83 YO M admitted with gastrointestinal hemorrhage. S/P endoscopy and colonoscopy 11/24/18. S/P transurethral bladder tumor resection 11/24/18. S/P left nephrostomy 11/26/18. Cover for Int Uriel-Dr Lowe Objective Last Vital Signs Date Time Temp Pulse Resp B/P (MAP) Pulse Ox O2 Delivery O2 Flow Rate FiO2 12/04/18 11:46 98.2 63 18 119/58 (78) 99 12/04/18 08:21 Room Air 11/26/18 10:12 4.0 Laboratory Tests Test 12/04/18 05:50 White Blood Count 7.8 K/UL (4.8-10.8) Red Blood Count 3.20 M/UL (4.70-6.10) L Hemoglobin 9.7 G/DL (14.2-18.0) L Hematocrit 28.5 % (42.0-52.0) L Mean Corpuscular Volume 89 FL (80-99) Mean Corpuscular Hemoglobin 30.4 PG (27.0-31.0) Mean Corpuscular Hemoglobin Concent 34.2 G/DL (32.0-36.0) Red Cell Distribution Width 10.9 % (11.6-14.8) L Platelet Count 184 K/UL (150-450) Mean Platelet Volume 5.9 FL (6.5-10.1) L Neutrophils (%) (Auto) 72.0 % (45.0-75.0) Lymphocytes (%) (Auto) 20.1 % (20.0-45.0) Monocytes (%) (Auto) 7.0 % (1.0-10.0) Eosinophils (%) (Auto) 0.0 % (0.0-3.0) Basophils (%) (Auto) 1.0 % (0.0-2.0) Sodium Level 142 MMOL/L (136-145) Potassium Level 3.9 MMOL/L (3.5-5.1) Chloride Level 106 MMOL/L (98-107) Carbon Dioxide Level 29 MMOL/L (21-32) Anion Gap 7 mmol/L (5-15) Blood Urea Nitrogen 14 mg/dL (7-18) Creatinine 1.1 MG/DL (0.55-1.30) Estimat Glomerular Filtration Rate mL/min (>60) Glucose Level 105 MG/DL (74-106) Calcium Level 9.0 MG/DL (8.5-10.1) Intake and Output 12/03/18 12/04/18 19:00 07:00 Intake Total 1990 ml 525 ml Output Total 2400 ml Balance 1990 ml -1875 ml Intake Oral 1240 ml IV Total 750 ml 525 ml Output Urine Total 300 ml Other 2100 ml # Voids 10 4 Objective PHYSICAL EXAMINATION: GENERAL: The patient is awake, alert, responsive, very pleasant, but forgetful. HEAD AND NECK: Pupils are reactive to light. Extraocular movements intact. Neck was supple. No JVD. LUNGS: Good air entry. No wheezing or rales. Left side of the chest has a pacemaker. ABDOMEN: Soft, nondistended, and nontender. Positive bowel sounds. EXTREMITIES: No cyanosis, clubbing, or edema. NEUROLOGIC: TUBE BENDER HAND II through XII grossly intact. Motor is 5/5 in all extremities. Gait was not assessed due to the patient's status. RECTAL/GENITOURINARY: Refused and deferred. Assessment/Plan Assessment/Plan ASSESSMENT: 1. Gastrointestinal bleed. 2. Anemia possible due to acute blood loss. 3. Hypokalemia. 4. Acute urinary tract infection. 5. Moderate left hydronephrosis with hydroureter. 6. Cardiac arrhythmia status post pacemaker. 7. Diabetes type 2. 8. Hypertension. 9. Gastritis 10. hemorrhoids 11. hematuria-Bladder cancer PLAN: 1. Admit the patient to medical floor. 2. We will follow up with the laboratory. 3. Clear liquid diet. 4. Gastrointestinal consultation with Dr. Hernandez. 5. Code status is Full Code at this time. 6. See Urology consultation, Dr. Allen S/P transurethral resection bladder tumor High grade urothelial carcinoma 7. S/P Esophagogastroduodenoscopy and colonoscopy 11/24/18. 8. We will follow up with urine culture and Cardiology consultation with Dr. Nj Valenzuela. 9. Protonix 40 mg BID and carafate 1 gm QID 10 Await Oncology consult 11. Will require anterograde stent by interv radiology-see urology note. Jean-Claude Peter MD Dec 04, 2018 16:05
--- NOTE | 2018-12-04 17:07 | NUR ---
nurse notes 1707 starlix 120 mg not given at this time husam robbins
[2018-12-04] MEDS: Morphine Sulfate 2mg/ml Inj(IV/IM USE ONLY) IVP PRN (17:27)
--- NOTE | 2018-12-04 19:12 | NUR ---
HAND-OFF: Report given to DONELL Garcia.
--- NOTE | 2018-12-04 19:45 | NUR ---
NURSE NOTES: Pt is in bed, awake . No acute distress noted. Vitals stable. Room air. D5 1/2 NS running at 75ml/hr.Left nephrostomy tube serosanguineous output. Pt is at risk for fall, fall precaution in place. Bed alarm on. Bed locked low in position,side rails up and call light within reach. Pt will be monitored.
[2018-12-04 20:00] VITALS: BP 144/65
[2018-12-04] MEDS: Tamsulosin 0.4mg cap ORAL SCH (21:38)
[2018-12-04] MEDS: Miralax 17gm pkt ORAL PRN (21:38)
--- NOTE | 2018-12-04 23:08 | Neurology Progress Note ---
Interim History Interim History ROS Limited/Unobtainable: No Events: No new events Interim History THIS VISIT WAS PERFORMED ON DECEMBER 03, 2018. Review of Systems All Systems: reviewed and negative except above Objective Physical Exam Last Vital Signs Date Time Temp Pulse Resp B/P (MAP) Pulse Ox O2 Delivery O2 Flow Rate FiO2 12/04/18 21:00 Room Air 12/04/18 20:00 98.6 61 16 144/65 (91) 99 11/26/18 10:12 4.0 Laboratory Tests Test 12/04/18 05:50 White Blood Count 7.8 K/UL (4.8-10.8) Red Blood Count 3.20 M/UL (4.70-6.10) L Hemoglobin 9.7 G/DL (14.2-18.0) L Hematocrit 28.5 % (42.0-52.0) L Mean Corpuscular Volume 89 FL (80-99) Mean Corpuscular Hemoglobin 30.4 PG (27.0-31.0) Mean Corpuscular Hemoglobin Concent 34.2 G/DL (32.0-36.0) Red Cell Distribution Width 10.9 % (11.6-14.8) L Platelet Count 184 K/UL (150-450) Mean Platelet Volume 5.9 FL (6.5-10.1) L Neutrophils (%) (Auto) 72.0 % (45.0-75.0) Lymphocytes (%) (Auto) 20.1 % (20.0-45.0) Monocytes (%) (Auto) 7.0 % (1.0-10.0) Eosinophils (%) (Auto) 0.0 % (0.0-3.0) Basophils (%) (Auto) 1.0 % (0.0-2.0) Sodium Level 142 MMOL/L (136-145) Potassium Level 3.9 MMOL/L (3.5-5.1) Chloride Level 106 MMOL/L (98-107) Carbon Dioxide Level 29 MMOL/L (21-32) Anion Gap 7 mmol/L (5-15) Blood Urea Nitrogen 14 mg/dL (7-18) Creatinine 1.1 MG/DL (0.55-1.30) Estimat Glomerular Filtration Rate mL/min (>60) Glucose Level 105 MG/DL (74-106) Calcium Level 9.0 MG/DL (8.5-10.1) Impression/Recommendations Problems: (1) Altered level of consciousness Assessment & Plan: CT 11/22/18: Chronic and age-related changes is noted. 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 Status: stable Recommendations Unable to obtain MRI - so will continue to monitor- continue ASA and Q 4 hour neuro checks CTA if worsening deficits or new acute. RECOMMEND PT/OT Bailey Dominguez N.P. Dec 04, 2018 23:08
--- NOTE | 2018-12-04 23:09 | Neurology Progress Note ---
Interim History Interim History ROS Limited/Unobtainable: No Events: No new events Interim History This visit was performed on December 04, 2018 under the supervision of Dr. Jaime Flaherty. Review of Systems All Systems: reviewed and negative except above Objective Physical Exam Last Vital Signs Date Time Temp Pulse Resp B/P (MAP) Pulse Ox O2 Delivery O2 Flow Rate FiO2 12/04/18 21:00 Room Air 12/04/18 20:00 98.6 61 16 144/65 (91) 99 11/26/18 10:12 4.0 Laboratory Tests Test 12/04/18 05:50 White Blood Count 7.8 K/UL (4.8-10.8) Red Blood Count 3.20 M/UL (4.70-6.10) L Hemoglobin 9.7 G/DL (14.2-18.0) L Hematocrit 28.5 % (42.0-52.0) L Mean Corpuscular Volume 89 FL (80-99) Mean Corpuscular Hemoglobin 30.4 PG (27.0-31.0) Mean Corpuscular Hemoglobin Concent 34.2 G/DL (32.0-36.0) Red Cell Distribution Width 10.9 % (11.6-14.8) L Platelet Count 184 K/UL (150-450) Mean Platelet Volume 5.9 FL (6.5-10.1) L Neutrophils (%) (Auto) 72.0 % (45.0-75.0) Lymphocytes (%) (Auto) 20.1 % (20.0-45.0) Monocytes (%) (Auto) 7.0 % (1.0-10.0) Eosinophils (%) (Auto) 0.0 % (0.0-3.0) Basophils (%) (Auto) 1.0 % (0.0-2.0) Sodium Level 142 MMOL/L (136-145) Potassium Level 3.9 MMOL/L (3.5-5.1) Chloride Level 106 MMOL/L (98-107) Carbon Dioxide Level 29 MMOL/L (21-32) Anion Gap 7 mmol/L (5-15) Blood Urea Nitrogen 14 mg/dL (7-18) Creatinine 1.1 MG/DL (0.55-1.30) Estimat Glomerular Filtration Rate mL/min (>60) Glucose Level 105 MG/DL (74-106) Calcium Level 9.0 MG/DL (8.5-10.1) Impression/Recommendations Problems: (1) Altered level of consciousness Assessment & Plan: CT 11/22/18: Chronic and age-related changes is noted. 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 Status: stable Recommendations Unable to obtain MRI - so will continue to monitor- continue ASA and Q shift ( 8hrs) neuro checks CTA if worsening deficits or new acute. PT/OT Recommended as well as Bailey Mejias N.P. Dec 04, 2018 23:09
[2018-12-05] VITALS: BP 148/60
--- NOTE | 2018-12-05 02:41 | NUR ---
NURSE NOTES: Pt is in bed, asleep. No acute distress noted. Vitals stable. Nephrostomy tube is in place.
[2018-12-05 04:00] VITALS: BP 144/60
[2018-12-05] MEDS: D5 1/2NS 1,000 ML IV SCH ×2 (05:46→20:02)
[2018-12-05] MEDS: NovoLOG Insulin Flexpen SUBQ SCH ×4 (06:03→20:01)
--- NOTE | 2018-12-05 07:05 | NUR ---
HAND-OFF: Report given to Pauly Milian RN.
[2018-12-05 07:06] LABS: EOSINOPHILS % (AUTO) 0.1 % (0.0-3.0); HEMATOCRIT 32.9 % (42.0-52.0); HEMOGLOBIN 11.2 G/DL (14.2-18.0); LYMPHOCYTES % (AUTO) 20.8 % (20.0-45.0); MEAN CORPUSCULAR VOLUME 89 FL (80-99); MONOCYTES % (AUTO) 6.7 % (1.0-10.0); NEUTROPHILS % (AUTO) 71.4 % (45.0-75.0); PLATELET COUNT 220 K/UL (150-450); RED BLOOD COUNT 3.71 M/UL (4.70-6.10); RED CELL DISTRIBUTION WIDTH 10.6 % (11.6-14.8); WHITE BLOOD COUNT 8.2 K/UL (4.8-10.8)
[2018-12-05 07:07] LABS: ANION GAP 5 mmol/L (5-15); BLOOD UREA NITROGEN 15 mg/dL (7-18); CALCIUM 9.1 MG/DL (8.5-10.1); CARBON DIOXIDE 30 MMOL/L (21-32); CHLORIDE 107 MMOL/L (98-107); POTASSIUM 4.3 MMOL/L (3.5-5.1); SODIUM 142 MMOL/L (136-145)
--- NOTE | 2018-12-05 07:27 | General Progress Note ---
Assessment/Plan Problem List: (1) Hyperthyroidism ICD Codes: E05.90 - Thyrotoxicosis, unspecified without thyrotoxic crisis or storm SNOMED: 92552279 (2) Chronic cerebrovascular accident (CVA) ICD Codes: I69.30 - Unspecified sequelae of cerebral infarction SNOMED: 686904578 (3) Bleeding hemorrhoid ICD Codes: K64.9 - Unspecified hemorrhoids SNOMED: 59619285 (4) Anemia ICD Codes: D64.9 - Anemia, unspecified SNOMED: 322041231 (5) HTN (hypertension) ICD Codes: I10 - Essential (primary) hypertension SNOMED: 13507040 (6) Diabetes mellitus ICD Codes: E11.9 - Type 2 diabetes mellitus without complications SNOMED: 04699522 (7) Bladder neoplasm ICD Codes: D49.4 - Neoplasm of unspecified behavior of bladder SNOMED: 032542510 Status: stable Assessment/Plan: SUMMARY OF FINDINGS: 1. Gastritis and possibly gastric ulceration, status post biopsy. 2. One colonic polyp removed, see above for details. 3. Internal hemorrhoids. Occult blood stool negative Patient passed video swallow RECOMMENDATIONS: Follow up pathology. >> H. pylori negative Resume diet. Follow with Urology given diagnosis of bladder cancer. monitor H&H, prn transfusions bowel regime ppi fu labs dc planning off carafate Subjective ROS Limited/Unobtainable: Yes Allergies: Coded Allergies: No Known Allergies (Unverified , 04/09/16) Objective Last 24 Hour Vital Signs Date Time Temp Pulse Resp B/P (MAP) Pulse Ox O2 Delivery O2 Flow Rate FiO2 12/05/18 04:00 97.5 61 16 144/60 (88) 100 12/05/18 00:00 98.1 61 16 148/60 (89) 100 12/04/18 21:00 Room Air 12/04/18 20:00 98.6 61 16 144/65 (91) 99 12/04/18 17:07 130/59 12/04/18 16:00 98.0 62 20 130/59 (82) 99 12/04/18 11:46 98.2 63 18 119/58 (78) 99 12/04/18 08:21 Room Air 12/04/18 08:10 61 131/52 12/04/18 08:10 131/52 12/04/18 08:00 98.0 63 18 124/71 (88) 99 Intake and Output 12/04/18 12/05/18 19:00 07:00 Intake Total 1840 ml 150 ml Output Total 400 ml 2000 ml Balance 1440 ml -1850 ml Intake Oral 940 ml IV Total 900 ml 150 ml Output Urine Total 400 ml Other 2000 ml # Voids 2 # Bowel Movements 2 Laboratory Tests 12/05/18 05:00: White Blood Count 8.2, Red Blood Count 3.71L, Hemoglobin 11.2L, Hematocrit 32.9L , Mean Corpuscular Volume 89, Mean Corpuscular Hemoglobin 30.3, Mean Corpuscular Hemoglobin Concent 34.1, Red Cell Distribution Width 10.6L, Platelet Count 220, Mean Platelet Volume 5.6L, Neutrophils (%) (Auto) 71.4, Lymphocytes (%) (Auto) 20.8, Monocytes (%) (Auto) 6.7, Eosinophils (%) (Auto) 0.1, Basophils (%) (Auto) 1.0, Sodium Level 142, Potassium Level 4.3, Chloride Level 107, Carbon Dioxide Level 30, Anion Gap 5, Blood Urea Nitrogen 15, Creatinine 1.0, Estimat Glomerular Filtration Rate , Glucose Level 82, Calcium Level 9.1 Height (Feet): 6 Height (Inches): 6.00 Weight (Pounds): 185 General Appearance: no apparent distress EENT: normal ENT inspection Neck: supple Cardiovascular: normal rate Respiratory/Chest: decreased breath sounds Abdomen: normal bowel sounds, non tender, soft Extremities: non-tender Prince Hernandez MD Dec 05, 2018 07:27
--- NOTE | 2018-12-05 07:44 | General Progress Note ---
Assessment/Plan Problem List: (1) Acute metabolic encephalopathy ICD Codes: G93.41 - Metabolic encephalopathy SNOMED: 12279810, 365724646 (2) Hyperthyroidism ICD Codes: E05.90 - Thyrotoxicosis, unspecified without thyrotoxic crisis or storm SNOMED: 47189476 (3) Diabetes mellitus ICD Codes: E11.9 - Type 2 diabetes mellitus without complications SNOMED: 39215862 (4) Bladder neoplasm ICD Codes: D49.4 - Neoplasm of unspecified behavior of bladder SNOMED: 492655856 (5) Hydronephrosis ICD Codes: N13.30 - Unspecified hydronephrosis SNOMED: 54905090 Status: stable Assessment/Plan: thyroid function improved on Tapazole TSI pending continue Tapazole 10 mg daily continue Starlix 120 mg ac tid continue NISS ac / hs Subjective Allergies: Coded Allergies: No Known Allergies (Unverified , 04/09/16) All Systems: reviewed and negative except above Subjective events noted BG values are stable Item Value Date Time Bedside Blood Glucose 98 mg/dl 12/05/18 0630 Bedside Blood Glucose 138 mg/dl H 12/04/18 2154 Bedside Blood Glucose 103 mg/dl 12/04/18 1632 Bedside Blood Glucose 144 mg/dl H 12/04/18 1129 Objective Last 24 Hour Vital Signs Date Time Temp Pulse Resp B/P (MAP) Pulse Ox O2 Delivery O2 Flow Rate FiO2 12/05/18 04:00 97.5 61 16 144/60 (88) 100 12/05/18 00:00 98.1 61 16 148/60 (89) 100 12/04/18 21:00 Room Air 12/04/18 20:00 98.6 61 16 144/65 (91) 99 12/04/18 17:07 130/59 12/04/18 16:00 98.0 62 20 130/59 (82) 99 12/04/18 11:46 98.2 63 18 119/58 (78) 99 12/04/18 08:21 Room Air 12/04/18 08:10 61 131/52 12/04/18 08:10 131/52 12/04/18 08:00 98.0 63 18 124/71 (88) 99 Intake and Output 12/04/18 12/05/18 19:00 07:00 Intake Total 1840 ml 150 ml Output Total 400 ml 2000 ml Balance 1440 ml -1850 ml Intake Oral 940 ml IV Total 900 ml 150 ml Output Urine Total 400 ml Other 2000 ml # Voids 2 # Bowel Movements 2 Laboratory Tests 12/05/18 05:00: White Blood Count 8.2, Red Blood Count 3.71L, Hemoglobin 11.2L, Hematocrit 32.9L , Mean Corpuscular Volume 89, Mean Corpuscular Hemoglobin 30.3, Mean Corpuscular Hemoglobin Concent 34.1, Red Cell Distribution Width 10.6L, Platelet Count 220, Mean Platelet Volume 5.6L, Neutrophils (%) (Auto) 71.4, Lymphocytes (%) (Auto) 20.8, Monocytes (%) (Auto) 6.7, Eosinophils (%) (Auto) 0.1, Basophils (%) (Auto) 1.0, Sodium Level 142, Potassium Level 4.3, Chloride Level 107, Carbon Dioxide Level 30, Anion Gap 5, Blood Urea Nitrogen 15, Creatinine 1.0, Estimat Glomerular Filtration Rate , Glucose Level 82, Calcium Level 9.1 Height (Feet): 6 Height (Inches): 6.00 Weight (Pounds): 185 General Appearance: no apparent distress Neck: normal alignment Cardiovascular: normal rate Respiratory/Chest: lungs clear Abdomen: normal bowel sounds Edema: no edema noted Arm (L), no edema noted Arm (R), no edema noted Leg (L), no edema noted Leg (R), no edema noted Pedal (L), no edema noted Pedal (R), no edema noted Generalized Objective Current Medications Medications (Trade) Dose Ordered Sig/Levi Route PRN Reason Start Time Stop Time Status Last Admin Dose Admin Acetaminophen (Tylenol) 650 mg Q4H PRN ORAL fever 11/22/18 13:30 12/22/18 13:29 Al Hydroxide/Mg Hydroxide (Mylanta II) 30 ml Q6H PRN ORAL dyspepsia 11/22/18 13:30 12/22/18 13:29 Amlodipine Besylate (Norvasc) 2.5 mg DAILY ORAL 11/29/18 09:00 12/29/18 08:59 12/04/18 08:10 Dextrose (Dextrose 50%) 25 ml Q30M PRN IV Hypoglycemia 11/22/18 13:30 12/22/18 13:23 11/22/18 17:21 Dextrose (Dextrose 50%) 50 ml Q30M PRN IV hypoglycemia 11/22/18 13:30 12/22/18 13:29 Dextrose/Sodium Chloride 1,000 ml @ 75 mls/hr [id number] IV 11/22/18 13:16 12/22/18 13:15 12/05/18 05:46 Diphenhydramine HCl (Benadryl) 25 mg Q6H PRN ORAL Itching/Pruritis 11/22/18 13:30 12/22/18 13:29 Finasteride (Proscar) 5 mg DAILY ORAL 11/22/18 19:45 12/22/18 19:44 12/04/18 08:09 Hydralazine HCl (Apresoline) 50 mg Q6H PRN ORAL SBP > 160 11/22/18 17:30 12/22/18 17:29 11/27/18 01:26 Insulin Aspart (NovoLOG) BEFORE MEALS AND HS SUBQ 11/22/18 16:30 12/22/18 16:29 12/04/18 21:54 Irbesartan (Avapro) 150 mg BID ORAL 11/25/18 09:00 12/25/18 08:59 12/04/18 17:07 Methimazole (Tapazole) 10 mg DAILY ORAL 11/29/18 09:00 12/24/18 08:59 12/04/18 08:10 Morphine Sulfate (Morphine Sulfate) 2 mg Q4H PRN IVP Severe Pain (Pain Scale 7-10) 12/01/18 23:15 12/08/18 23:14 12/04/18 17:27 Nateglinide (Starlix) 120 mg TIAC ORAL 11/29/18 11:30 12/24/18 11:29 12/04/18 17:07 Nitroglycerin (Ntg) 0.4 mg Q5M X 3 DOSES PRN SL Prn Chest Pain 11/22/18 13:30 12/22/18 13:29 Ondansetron HCl (Zofran) 4 mg Q6H PRN IVP Nausea & Vomiting 11/22/18 13:30 12/22/18 13:29 Pantoprazole (Protonix) 40 mg DAILY ORAL 12/05/18 09:00 12/24/18 20:59 Polyethylene Glycol (Miralax) 17 gm HSPRN PRN ORAL Constipation 11/22/18 13:30 12/22/18 13:29 12/04/18 21:38 Tamsulosin HCl (Flomax) 0.4 mg BEDTIME ORAL 11/22/18 21:00 12/22/18 20:59 12/04/18 21:38 Temazepam (Restoril) 15 mg HSPRN PRN ORAL Insomnia 11/29/18 21:15 12/06/18 21:14 12/04/18 21:38 Kashif Adorno MD Dec 05, 2018 07:44
--- NOTE | 2018-12-05 07:49 | NUR ---
NURSE NOTES: pt in bed with no sob nor in any form of distress noted. Breathing regular and unlabored. denies any pain at this time. bed in lowest position. call light within reach at all time. will continue to monitor
[2018-12-05 08:00] VITALS: BP 158/77
[2018-12-05] MEDS: Irbesartan 150mg tablet ORAL SCH ×2 (08:12→17:21)
[2018-12-05] MEDS ORDERED: D5 1/2NS 1000ml IV ONE ×2 (08:41→17:27)
--- NOTE | 2018-12-05 10:01 | Urology Progress Note ---
Assessment/Plan Status: stable Assessment/Plan: 1. Left hydronephrosis. 2. Hematuria. 3. Pyuria. 4. Proteinuria. 5. Benign prostatic hypertrophy. 6. Incontinence. 7. Neurogenic bladder. 8. Cystitis. 9. Bladder cancer. 10. POD # 11, cysto/TURBT monitor clinically hernandez out and voiding left hydro secondary to bladder tumor left nephrostomy placed 11/26, keep off suction hand irrigated and do PRN unable to place antegrade ureteral stent flomax and proscar monitor for voiding and reinsert hernandez PRN s/p diflucan med onc eval d/w Dr. Hinkle, will d/w IR to reattempt antegrade stent, poss tomorrow NPO post midnight Subjective Allergies: Coded Allergies: No Known Allergies (Unverified , 04/09/16) Subjective all noted, feels fair, voiding Objective Last 24 Hour Vital Signs Date Time Temp Pulse Resp B/P (MAP) Pulse Ox O2 Delivery O2 Flow Rate FiO2 12/05/18 09:13 Room Air 12/05/18 08:12 60 158/68 12/05/18 08:12 158/68 12/05/18 08:00 97.3 60 18 158/77 (104) 100 12/05/18 04:00 97.5 61 16 144/60 (88) 100 12/05/18 00:00 98.1 61 16 148/60 (89) 100 12/04/18 21:00 Room Air 12/04/18 20:00 98.6 61 16 144/65 (91) 99 12/04/18 17:07 130/59 12/04/18 16:00 98.0 62 20 130/59 (82) 99 12/04/18 11:46 98.2 63 18 119/58 (78) 99 Intake and Output 12/04/18 12/05/18 19:00 07:00 Intake Total 1840 ml 150 ml Output Total 400 ml 2000 ml Balance 1440 ml -1850 ml Intake Oral 940 ml IV Total 900 ml 150 ml Output Urine Total 400 ml Other 2000 ml # Voids 2 # Bowel Movements 2 Microbiology Date/Time Source Procedure Growth Status 11/22/18 12:20 Nasal Nares MRSA Culture - Final NO METHICILLIN RESISTANT STAPH AUREUS... Complete 11/22/18 11:15 Urine,Clean Catch Urine Culture - Final YEAST Complete 11/22/18 12:20 Rectal Mucosa VRE Culture - Final NO VANCOMYCIN RESISTANT ENTEROCOCCUS ... Complete 11/22/18 12:20 Rectal Mucosa - Final NO CARBAPENEM-RESISTANT ENTEROBACTERI... Complete Current Medications Medications (Trade) Dose Ordered Sig/Levi Route PRN Reason Start Time Stop Time Status Last Admin Dose Admin Acetaminophen (Tylenol) 650 mg Q4H PRN ORAL fever 11/22/18 13:30 12/22/18 13:29 Al Hydroxide/Mg Hydroxide (Mylanta II) 30 ml Q6H PRN ORAL dyspepsia 11/22/18 13:30 12/22/18 13:29 Amlodipine Besylate (Norvasc) 2.5 mg DAILY ORAL 11/29/18 09:00 12/29/18 08:59 12/05/18 08:12 Dextrose (Dextrose 50%) 25 ml Q30M PRN IV Hypoglycemia 11/22/18 13:30 12/22/18 13:23 11/22/18 17:21 Dextrose (Dextrose 50%) 50 ml Q30M PRN IV hypoglycemia 11/22/18 13:30 12/22/18 13:29 Dextrose/Sodium Chloride 1,000 ml @ 75 mls/hr [id number] IV 11/22/18 13:16 12/22/18 13:15 12/05/18 05:46 Diphenhydramine HCl (Benadryl) 25 mg Q6H PRN ORAL Itching/Pruritis 11/22/18 13:30 12/22/18 13:29 Finasteride (Proscar) 5 mg DAILY ORAL 11/22/18 19:45 12/22/18 19:44 12/05/18 08:12 Hydralazine HCl (Apresoline) 50 mg Q6H PRN ORAL SBP > 160 11/22/18 17:30 12/22/18 17:29 11/27/18 01:26 Insulin Aspart (NovoLOG) BEFORE MEALS AND HS SUBQ 11/22/18 16:30 12/22/18 16:29 12/04/18 21:54 Irbesartan (Avapro) 150 mg BID ORAL 11/25/18 09:00 12/25/18 08:59 12/05/18 08:12 Methimazole (Tapazole) 10 mg DAILY ORAL 11/29/18 09:00 12/24/18 08:59 12/05/18 08:12 Morphine Sulfate (Morphine Sulfate) 2 mg Q4H PRN IVP Severe Pain (Pain Scale 7-10) 12/01/18 23:15 12/08/18 23:14 12/04/18 17:27 Nateglinide (Starlix) 120 mg TIAC ORAL 11/29/18 11:30 12/24/18 11:29 12/04/18 17:07 Nitroglycerin (Ntg) 0.4 mg Q5M X 3 DOSES PRN SL Prn Chest Pain 11/22/18 13:30 12/22/18 13:29 Ondansetron HCl (Zofran) 4 mg Q6H PRN IVP Nausea & Vomiting 11/22/18 13:30 12/22/18 13:29 Pantoprazole (Protonix) 40 mg DAILY ORAL 12/05/18 09:00 12/24/18 20:59 12/05/18 08:12 Polyethylene Glycol (Miralax) 17 gm HSPRN PRN ORAL Constipation 11/22/18 13:30 12/22/18 13:29 12/04/18 21:38 Tamsulosin HCl (Flomax) 0.4 mg BEDTIME ORAL 11/22/18 21:00 12/22/18 20:59 12/04/18 21:38 Temazepam (Restoril) 15 mg HSPRN PRN ORAL Insomnia 12/05/18 10:00 12/12/18 09:59 Laboratory Tests 12/05/18 05:00: White Blood Count 8.2, Red Blood Count 3.71L, Hemoglobin 11.2L, Hematocrit 32.9L , Mean Corpuscular Volume 89, Mean Corpuscular Hemoglobin 30.3, Mean Corpuscular Hemoglobin Concent 34.1, Red Cell Distribution Width 10.6L, Platelet Count 220, Mean Platelet Volume 5.6L, Neutrophils (%) (Auto) 71.4, Lymphocytes (%) (Auto) 20.8, Monocytes (%) (Auto) 6.7, Eosinophils (%) (Auto) 0.1, Basophils (%) (Auto) 1.0, Sodium Level 142, Potassium Level 4.3, Chloride Level 107, Carbon Dioxide Level 30, Anion Gap 5, Blood Urea Nitrogen 15, Creatinine 1.0, Estimat Glomerular Filtration Rate , Glucose Level 82, Calcium Level 9.1 Height (Feet): 6 Height (Inches): 6.00 Weight (Pounds): 185 Objective exam stable left nephrostomy blood-tinged final path noted Macho Allen MD Dec 05, 2018 10:01
[2018-12-05 12:00] VITALS: BP_SYST 158; BP_SYST 170; BP_DIAS 76; BP_DIAS 77
[2018-12-05] MEDS: HydrALAZINE 50mg tab ORAL PRN (14:24)
--- NOTE | 2018-12-05 14:40 | Pulmonology Progress Note ---
Assessment/Plan Problems: (1) Lower GI bleed (2) Hydronephrosis (3) Anemia (4) Bladder neoplasm (5) Chronic cerebrovascular accident (CVA) (6) Diabetes mellitus (7) Alzheimer's dementia (8) HTN (hypertension) Assessment/Plan no new complains nephrostomy in place. tolerated cystoscopy follow up with pathology, still not available. looks comfortable sliding scale monitor bp f/u urology recommendations prbc prn check H/H dvt prophylaxis. Subjective ROS Limited/Unobtainable: No Allergies: Coded Allergies: No Known Allergies (Unverified , 04/09/16) Objective Last 24 Hour Vital Signs Date Time Temp Pulse Resp B/P (MAP) Pulse Ox O2 Delivery O2 Flow Rate FiO2 12/05/18 14:24 170/76 12/05/18 12:00 98.2 62 18 170/76 (107) 100 12/05/18 09:13 Room Air 12/05/18 08:12 60 158/68 12/05/18 08:12 158/68 12/05/18 08:00 97.3 60 18 158/77 (104) 100 12/05/18 04:00 97.5 61 16 144/60 (88) 100 12/05/18 00:00 98.1 61 16 148/60 (89) 100 12/04/18 21:00 Room Air 12/04/18 20:00 98.6 61 16 144/65 (91) 99 12/04/18 17:07 130/59 12/04/18 16:00 98.0 62 20 130/59 (82) 99 Intake and Output 12/04/18 12/05/18 19:00 07:00 Intake Total 1840 ml 150 ml Output Total 400 ml 2000 ml Balance 1440 ml -1850 ml Intake Oral 940 ml IV Total 900 ml 150 ml Output Urine Total 400 ml Other 2000 ml # Voids 2 # Bowel Movements 2 Objective nephrostomy still draining blood tinged urine, but less than previous day General Appearance: WD/WN HEENT: normocephalic, atraumatic Cardiovascular: normal peripheral pulses, normal rate Abdomen: normal bowel sounds, soft, non tender Genitourinary: normal external genitalia Extremities: no clubbing Skin: no rash Laboratory Tests 12/05/18 05:00: White Blood Count 8.2, Red Blood Count 3.71L, Hemoglobin 11.2L, Hematocrit 32.9L , Mean Corpuscular Volume 89, Mean Corpuscular Hemoglobin 30.3, Mean Corpuscular Hemoglobin Concent 34.1, Red Cell Distribution Width 10.6L, Platelet Count 220, Mean Platelet Volume 5.6L, Neutrophils (%) (Auto) 71.4, Lymphocytes (%) (Auto) 20.8, Monocytes (%) (Auto) 6.7, Eosinophils (%) (Auto) 0.1, Basophils (%) (Auto) 1.0, Sodium Level 142, Potassium Level 4.3, Chloride Level 107, Carbon Dioxide Level 30, Anion Gap 5, Blood Urea Nitrogen 15, Creatinine 1.0, Estimat Glomerular Filtration Rate , Glucose Level 82, Calcium Level 9.1 Current Medications Medications (Trade) Dose Ordered Sig/Levi Route PRN Reason Start Time Stop Time Status Last Admin Dose Admin Acetaminophen (Tylenol) 650 mg Q4H PRN ORAL fever 11/22/18 13:30 12/22/18 13:29 Al Hydroxide/Mg Hydroxide (Mylanta II) 30 ml Q6H PRN ORAL dyspepsia 11/22/18 13:30 12/22/18 13:29 Amlodipine Besylate (Norvasc) 2.5 mg DAILY ORAL 11/29/18 09:00 12/29/18 08:59 12/05/18 08:12 Dextrose (Dextrose 50%) 25 ml Q30M PRN IV Hypoglycemia 11/22/18 13:30 12/22/18 13:23 11/22/18 17:21 Dextrose (Dextrose 50%) 50 ml Q30M PRN IV hypoglycemia 11/22/18 13:30 12/22/18 13:29 Dextrose/Sodium Chloride 1,000 ml @ 75 mls/hr [id number] IV 11/22/18 13:16 12/22/18 13:15 12/05/18 05:46 Diphenhydramine HCl (Benadryl) 25 mg Q6H PRN ORAL Itching/Pruritis 11/22/18 13:30 12/22/18 13:29 Finasteride (Proscar) 5 mg DAILY ORAL 11/22/18 19:45 12/22/18 19:44 12/05/18 08:12 Hydralazine HCl (Apresoline) 50 mg Q6H PRN ORAL SBP > 160 11/22/18 17:30 12/22/18 17:29 12/05/18 14:24 Insulin Aspart (NovoLOG) BEFORE MEALS AND HS SUBQ 11/22/18 16:30 12/22/18 16:29 12/05/18 11:12 Irbesartan (Avapro) 150 mg BID ORAL 11/25/18 09:00 12/25/18 08:59 12/05/18 08:12 Methimazole (Tapazole) 10 mg DAILY ORAL 11/29/18 09:00 12/24/18 08:59 12/05/18 08:12 Morphine Sulfate (Morphine Sulfate) 2 mg Q4H PRN IVP Severe Pain (Pain Scale 7-10) 12/01/18 23:15 12/08/18 23:14 12/04/18 17:27 Nateglinide (Starlix) 120 mg TIAC ORAL 11/29/18 11:30 12/24/18 11:29 12/05/18 11:11 Nitroglycerin (Ntg) 0.4 mg Q5M X 3 DOSES PRN SL Prn Chest Pain 11/22/18 13:30 12/22/18 13:29 Ondansetron HCl (Zofran) 4 mg Q6H PRN IVP Nausea & Vomiting 11/22/18 13:30 12/22/18 13:29 Pantoprazole (Protonix) 40 mg DAILY ORAL 12/05/18 09:00 12/24/18 20:59 12/05/18 08:12 Polyethylene Glycol (Miralax) 17 gm HSPRN PRN ORAL Constipation 11/22/18 13:30 12/22/18 13:29 12/04/18 21:38 Tamsulosin HCl (Flomax) 0.4 mg BEDTIME ORAL 11/22/18 21:00 12/22/18 20:59 12/04/18 21:38 Temazepam (Restoril) 15 mg HSPRN PRN ORAL Insomnia 12/05/18 10:00 12/12/18 09:59 Og Hinkle MD Dec 05, 2018 14:40
[2018-12-05 16:00] VITALS: BP 130/70
--- NOTE | 2018-12-05 16:17 | Internal Med Progress Note ---
Subjective Date of Service: Dec 05, 2018 Physician Name Jean-Claude Peter Attending Physician Jaziel Lowe MD Current Medications Medications (Trade) Dose Ordered Sig/Levi Route PRN Reason Start Time Stop Time Status Last Admin Dose Admin Acetaminophen (Tylenol) 650 mg Q4H PRN ORAL fever 11/22/18 13:30 12/22/18 13:29 Al Hydroxide/Mg Hydroxide (Mylanta II) 30 ml Q6H PRN ORAL dyspepsia 11/22/18 13:30 12/22/18 13:29 Amlodipine Besylate (Norvasc) 2.5 mg DAILY ORAL 11/29/18 09:00 12/29/18 08:59 12/05/18 08:12 Dextrose (Dextrose 50%) 25 ml Q30M PRN IV Hypoglycemia 11/22/18 13:30 12/22/18 13:23 11/22/18 17:21 Dextrose (Dextrose 50%) 50 ml Q30M PRN IV hypoglycemia 11/22/18 13:30 12/22/18 13:29 Dextrose/Sodium Chloride 1,000 ml @ 75 mls/hr [id number] IV 11/22/18 13:16 12/22/18 13:15 12/05/18 05:46 Diphenhydramine HCl (Benadryl) 25 mg Q6H PRN ORAL Itching/Pruritis 11/22/18 13:30 12/22/18 13:29 Finasteride (Proscar) 5 mg DAILY ORAL 11/22/18 19:45 12/22/18 19:44 12/05/18 08:12 Hydralazine HCl (Apresoline) 50 mg Q6H PRN ORAL SBP > 160 11/22/18 17:30 12/22/18 17:29 12/05/18 14:24 Insulin Aspart (NovoLOG) BEFORE MEALS AND HS SUBQ 11/22/18 16:30 12/22/18 16:29 12/05/18 11:12 Irbesartan (Avapro) 150 mg BID ORAL 11/25/18 09:00 12/25/18 08:59 12/05/18 08:12 Methimazole (Tapazole) 10 mg DAILY ORAL 11/29/18 09:00 12/24/18 08:59 12/05/18 08:12 Morphine Sulfate (Morphine Sulfate) 2 mg Q4H PRN IVP Severe Pain (Pain Scale 7-10) 12/01/18 23:15 12/08/18 23:14 12/04/18 17:27 Nateglinide (Starlix) 120 mg TIAC ORAL 11/29/18 11:30 12/24/18 11:29 12/05/18 11:11 Nitroglycerin (Ntg) 0.4 mg Q5M X 3 DOSES PRN SL Prn Chest Pain 11/22/18 13:30 12/22/18 13:29 Ondansetron HCl (Zofran) 4 mg Q6H PRN IVP Nausea & Vomiting 11/22/18 13:30 12/22/18 13:29 Pantoprazole (Protonix) 40 mg DAILY ORAL 12/05/18 09:00 12/24/18 20:59 12/05/18 08:12 Polyethylene Glycol (Miralax) 17 gm HSPRN PRN ORAL Constipation 11/22/18 13:30 12/22/18 13:29 12/04/18 21:38 Tamsulosin HCl (Flomax) 0.4 mg BEDTIME ORAL 11/22/18 21:00 12/22/18 20:59 12/04/18 21:38 Temazepam (Restoril) 15 mg HSPRN PRN ORAL Insomnia 12/05/18 10:00 12/12/18 09:59 Allergies: Coded Allergies: No Known Allergies (Unverified , 04/09/16) ROS Limited/Unobtainable: No Constitutional: Reports: no symptoms HEENT: Reports: no symptoms Cardiovascular: Reports: no symptoms Respiratory: Reports: no symptoms Gastrointestinal/Abdominal: Reports: no symptoms Genitourinary: Reports: no symptoms 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: Reports: no symptoms Subjective 83 YO M admitted with gastrointestinal hemorrhage. S/P endoscopy and colonoscopy 11/24/18. S/P transurethral bladder tumor resection 11/24/18. S/P left nephrostomy 11/26/18. Cover for Int Uriel-Dr Lowe Objective Last Vital Signs Date Time Temp Pulse Resp B/P (MAP) Pulse Ox O2 Delivery O2 Flow Rate FiO2 12/05/18 14:24 170/76 12/05/18 12:00 98.2 62 18 100 12/05/18 09:13 Room Air 11/26/18 10:12 4.0 Laboratory Tests Test 12/05/18 05:00 White Blood Count 8.2 K/UL (4.8-10.8) Red Blood Count 3.71 M/UL (4.70-6.10) L Hemoglobin 11.2 G/DL (14.2-18.0) L Hematocrit 32.9 % (42.0-52.0) L Mean Corpuscular Volume 89 FL (80-99) Mean Corpuscular Hemoglobin 30.3 PG (27.0-31.0) Mean Corpuscular Hemoglobin Concent 34.1 G/DL (32.0-36.0) Red Cell Distribution Width 10.6 % (11.6-14.8) L Platelet Count 220 K/UL (150-450) Mean Platelet Volume 5.6 FL (6.5-10.1) L Neutrophils (%) (Auto) 71.4 % (45.0-75.0) Lymphocytes (%) (Auto) 20.8 % (20.0-45.0) Monocytes (%) (Auto) 6.7 % (1.0-10.0) Eosinophils (%) (Auto) 0.1 % (0.0-3.0) Basophils (%) (Auto) 1.0 % (0.0-2.0) Sodium Level 142 MMOL/L (136-145) Potassium Level 4.3 MMOL/L (3.5-5.1) Chloride Level 107 MMOL/L (98-107) Carbon Dioxide Level 30 MMOL/L (21-32) Anion Gap 5 mmol/L (5-15) Blood Urea Nitrogen 15 mg/dL (7-18) Creatinine 1.0 MG/DL (0.55-1.30) Estimat Glomerular Filtration Rate mL/min (>60) Glucose Level 82 MG/DL (74-106) Calcium Level 9.1 MG/DL (8.5-10.1) Intake and Output 12/04/18 12/05/18 19:00 07:00 Intake Total 1840 ml 150 ml Output Total 400 ml 2000 ml Balance 1440 ml -1850 ml Intake Oral 940 ml IV Total 900 ml 150 ml Output Urine Total 400 ml Other 2000 ml # Voids 2 # Bowel Movements 2 Objective PHYSICAL EXAMINATION: GENERAL: The patient is awake, alert, responsive, very pleasant, but forgetful. HEAD AND NECK: Pupils are reactive to light. Extraocular movements intact. Neck was supple. No JVD. LUNGS: Good air entry. No wheezing or rales. Left side of the chest has a pacemaker. ABDOMEN: Soft, nondistended, and nontender. Positive bowel sounds. EXTREMITIES: No cyanosis, clubbing, or edema. NEUROLOGIC: BOOT AND SHOE REPAIRMAN II through XII grossly intact. Motor is 5/5 in all extremities. Gait was not assessed due to the patient's status. RECTAL/GENITOURINARY: Refused and deferred. Assessment/Plan Assessment/Plan ASSESSMENT: 1. Gastrointestinal bleed. 2. Anemia possible due to acute blood loss. 3. Hypokalemia. 4. Acute urinary tract infection. 5. Moderate left hydronephrosis with hydroureter. 6. Cardiac arrhythmia status post pacemaker. 7. Diabetes type 2. 8. Hypertension. 9. Gastritis 10. hemorrhoids 11. hematuria-Bladder cancer PLAN: 1. Admit the patient to medical floor. 2. We will follow up with the laboratory. 3. Clear liquid diet. 4. Gastrointestinal consultation with Dr. Hernandez. 5. Code status is Full Code at this time. 6. See Urology consultation, Dr. Allen S/P transurethral resection bladder tumor High grade urothelial carcinoma 7. S/P Esophagogastroduodenoscopy and colonoscopy 11/24/18. 8. We will follow up with urine culture and Cardiology consultation with Dr. Nj Valenzuela. 9. Protonix 40 mg BID and carafate 1 gm QID 10 Await Oncology consult 11. Will require anterograde stent by interv radiology-see urology note. Jean-Claude Peter MD Dec 05, 2018 16:17
--- NOTE | 2018-12-05 19:15 | NUR ---
HAND-OFF: Report given to DONELL Roman.
--- NOTE | 2018-12-05 19:20 | NUR ---
NURSE NOTES: pt received in bed with no sob, no distress or complaints at this time. Breathing regular and unlabored. Denies any pain at this time. Bed is in lowest position, locked, side rails x2, bed alarm on. call light within reach at all time. will continue to monitor
[2018-12-05 20:00] VITALS: BP 121/57
[2018-12-05] MEDS: Tamsulosin 0.4mg cap ORAL SCH (20:00)
--- NOTE | 2018-12-05 23:40 | Neurology Progress Note ---
Interim History Interim History ROS Limited/Unobtainable: No Complaints: AMS Events: No new events Interim History This visit was performed on December 05, 2018 Review of Systems All Systems: reviewed and negative except above Objective Physical Exam Last Vital Signs Date Time Temp Pulse Resp B/P (MAP) Pulse Ox O2 Delivery O2 Flow Rate FiO2 12/05/18 21:00 Room Air 12/05/18 20:00 98.1 63 18 121/57 (78) 100 11/26/18 10:12 4.0 Laboratory Tests Test 12/05/18 05:00 White Blood Count 8.2 K/UL (4.8-10.8) Red Blood Count 3.71 M/UL (4.70-6.10) L Hemoglobin 11.2 G/DL (14.2-18.0) L Hematocrit 32.9 % (42.0-52.0) L Mean Corpuscular Volume 89 FL (80-99) Mean Corpuscular Hemoglobin 30.3 PG (27.0-31.0) Mean Corpuscular Hemoglobin Concent 34.1 G/DL (32.0-36.0) Red Cell Distribution Width 10.6 % (11.6-14.8) L Platelet Count 220 K/UL (150-450) Mean Platelet Volume 5.6 FL (6.5-10.1) L Neutrophils (%) (Auto) 71.4 % (45.0-75.0) Lymphocytes (%) (Auto) 20.8 % (20.0-45.0) Monocytes (%) (Auto) 6.7 % (1.0-10.0) Eosinophils (%) (Auto) 0.1 % (0.0-3.0) Basophils (%) (Auto) 1.0 % (0.0-2.0) Sodium Level 142 MMOL/L (136-145) Potassium Level 4.3 MMOL/L (3.5-5.1) Chloride Level 107 MMOL/L (98-107) Carbon Dioxide Level 30 MMOL/L (21-32) Anion Gap 5 mmol/L (5-15) Blood Urea Nitrogen 15 mg/dL (7-18) Creatinine 1.0 MG/DL (0.55-1.30) Estimat Glomerular Filtration Rate mL/min (>60) Glucose Level 82 MG/DL (74-106) Calcium Level 9.1 MG/DL (8.5-10.1) Impression/Recommendations Problems: (1) Altered level of consciousness Assessment & Plan: CT 11/22/18: Chronic and age-related changes is noted. 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 Status: doing well, stable, progressing, tolerating diet Recommendations Q8 Neuro Checks PT/OT Optimize nutrition OOB Stable for discharge from a neurlogical perspective. Bailey Appiah N.P. Dec 05, 2018 23:40
[2018-12-06] VITALS: BP 113/62
[2018-12-06 04:00] VITALS: BP 138/68
[2018-12-06] MEDS: NovoLOG Insulin Flexpen SUBQ SCH ×4 (06:10→21:06)
[2018-12-06 06:12] LABS: HEMATOCRIT 30.3 % (42.0-52.0); HEMOGLOBIN 10.3 G/DL (14.2-18.0); LYMPHOCYTES % (AUTO) 19.6 % (20.0-45.0); MEAN CORPUSCULAR VOLUME 89 FL (80-99); MONOCYTES % (AUTO) 6.6 % (1.0-10.0); NEUTROPHILS % (AUTO) 72.9 % (45.0-75.0); PLATELET COUNT 209 K/UL (150-450); RED BLOOD COUNT 3.42 M/UL (4.70-6.10); WHITE BLOOD COUNT 7.9 K/UL (4.8-10.8)
[2018-12-06 06:17] LABS: ANION GAP 5 mmol/L (5-15); BLOOD UREA NITROGEN 14 mg/dL (7-18); CARBON DIOXIDE 29 MMOL/L (21-32); CHLORIDE 105 MMOL/L (98-107); POTASSIUM 4.2 MMOL/L (3.5-5.1); SODIUM 139 MMOL/L (136-145)
[2018-12-06] MEDS: D5 1/2NS 1,000 ML IV SCH ×2 (06:33→20:59)
--- NOTE | 2018-12-06 06:42 | General Progress Note ---
Assessment/Plan Problem List: (1) Acute metabolic encephalopathy ICD Codes: G93.41 - Metabolic encephalopathy SNOMED: 00848169, 563519052 (2) Hyperthyroidism ICD Codes: E05.90 - Thyrotoxicosis, unspecified without thyrotoxic crisis or storm SNOMED: 70116867 (3) Diabetes mellitus ICD Codes: E11.9 - Type 2 diabetes mellitus without complications SNOMED: 32858942 (4) Bladder neoplasm ICD Codes: D49.4 - Neoplasm of unspecified behavior of bladder SNOMED: 165053641 (5) Hydronephrosis ICD Codes: N13.30 - Unspecified hydronephrosis SNOMED: 90541306 Status: stable Assessment/Plan: thyroid function improved on Tapazole TSI pending continue Tapazole 10 mg daily continue Starlix 120 mg ac tid continue NISS ac / hs Subjective Allergies: Coded Allergies: No Known Allergies (Unverified , 04/09/16) All Systems: reviewed and negative except above Subjective events noted Item Value Date Time Bedside Blood Glucose 116 mg/dl 12/06/18 0623 Bedside Blood Glucose 121 mg/dl H 12/05/18 2100 Bedside Blood Glucose 172 mg/dl H 12/05/18 1719 Bedside Blood Glucose 207 mg/dl H 12/05/18 1112 Bedside Blood Glucose 98 mg/dl 12/05/18 0630 Objective Last 24 Hour Vital Signs Date Time Temp Pulse Resp B/P (MAP) Pulse Ox O2 Delivery O2 Flow Rate FiO2 12/06/18 04:00 97.7 61 18 138/68 (91) 100 12/06/18 00:00 98.1 61 18 113/62 (79) 100 12/05/18 21:00 Room Air 12/05/18 20:00 98.1 63 18 121/57 (78) 100 12/05/18 17:21 130/70 12/05/18 16:00 97.6 97 18 130/70 (90) 100 12/05/18 14:24 170/76 12/05/18 12:00 98.2 62 18 170/76 (107) 100 12/05/18 09:13 Room Air 12/05/18 08:12 60 158/68 12/05/18 08:12 158/68 12/05/18 08:00 97.3 60 18 158/77 (104) 100 Intake and Output 12/05/18 12/06/18 18:59 06:59 Intake Total 1575 ml 925 ml Output Total 1500 ml 1701 ml Balance 75 ml -776 ml Intake Oral 750 ml 250 ml IV Total 825 ml 675 ml Output Urine Total 900 ml 1000 ml Stool Total 1 ml Other 600 ml 700 ml # Voids 1 # Bowel Movements 2 Laboratory Tests 12/06/18 05:30: White Blood Count 7.9, Red Blood Count 3.42L, Hemoglobin 10.3L, Hematocrit 30.3L , Mean Corpuscular Volume 89, Mean Corpuscular Hemoglobin 30.1, Mean Corpuscular Hemoglobin Concent 33.9, Red Cell Distribution Width 11.0L, Platelet Count 209, Mean Platelet Volume 6.2L, Neutrophils (%) (Auto) 72.9, Lymphocytes (%) (Auto) 19.6L, Monocytes (%) (Auto) 6.6, Eosinophils (%) (Auto) 0.0, Basophils (%) (Auto) 1.0, Sodium Level 139, Potassium Level 4.2, Chloride Level 105, Carbon Dioxide Level 29, Anion Gap 5, Blood Urea Nitrogen 14, Creatinine 1.0, Estimat Glomerular Filtration Rate , Glucose Level 111H, Calcium Level 9.0 Height (Feet): 6 Height (Inches): 6.00 Weight (Pounds): 185 General Appearance: no apparent distress Neck: normal alignment Cardiovascular: normal rate Respiratory/Chest: lungs clear Abdomen: normal bowel sounds Pelvis: normal external exam Objective Current Medications Medications (Trade) Dose Ordered Sig/Levi Route PRN Reason Start Time Stop Time Status Last Admin Dose Admin Acetaminophen (Tylenol) 650 mg Q4H PRN ORAL fever 11/22/18 13:30 12/22/18 13:29 Al Hydroxide/Mg Hydroxide (Mylanta II) 30 ml Q6H PRN ORAL dyspepsia 11/22/18 13:30 12/22/18 13:29 Amlodipine Besylate (Norvasc) 2.5 mg DAILY ORAL 11/29/18 09:00 12/29/18 08:59 12/05/18 08:12 Dextrose (Dextrose 50%) 25 ml Q30M PRN IV Hypoglycemia 11/22/18 13:30 12/22/18 13:23 11/22/18 17:21 Dextrose (Dextrose 50%) 50 ml Q30M PRN IV hypoglycemia 11/22/18 13:30 12/22/18 13:29 Dextrose/Sodium Chloride 1,000 ml @ 75 mls/hr [id number] IV 11/22/18 13:16 12/22/18 13:15 12/06/18 06:33 Diphenhydramine HCl (Benadryl) 25 mg Q6H PRN ORAL Itching/Pruritis 11/22/18 13:30 12/22/18 13:29 Finasteride (Proscar) 5 mg DAILY ORAL 11/22/18 19:45 12/22/18 19:44 12/05/18 08:12 Hydralazine HCl (Apresoline) 50 mg Q6H PRN ORAL SBP > 160 11/22/18 17:30 12/22/18 17:29 12/05/18 14:24 Insulin Aspart (NovoLOG) BEFORE MEALS AND HS SUBQ 11/22/18 16:30 12/22/18 16:29 12/06/18 06:10 Irbesartan (Avapro) 150 mg BID ORAL 11/25/18 09:00 12/25/18 08:59 12/05/18 17:21 Methimazole (Tapazole) 10 mg DAILY ORAL 11/29/18 09:00 12/24/18 08:59 12/05/18 08:12 Morphine Sulfate (Morphine Sulfate) 2 mg Q4H PRN IVP Severe Pain (Pain Scale 7-10) 12/01/18 23:15 12/08/18 23:14 12/04/18 17:27 Nateglinide (Starlix) 120 mg TIAC ORAL 11/29/18 11:30 12/24/18 11:29 12/06/18 06:08 Nitroglycerin (Ntg) 0.4 mg Q5M X 3 DOSES PRN SL Prn Chest Pain 11/22/18 13:30 12/22/18 13:29 Ondansetron HCl (Zofran) 4 mg Q6H PRN IVP Nausea & Vomiting 11/22/18 13:30 12/22/18 13:29 Pantoprazole (Protonix) 40 mg DAILY ORAL 12/05/18 09:00 12/24/18 20:59 12/05/18 08:12 Polyethylene Glycol (Miralax) 17 gm HSPRN PRN ORAL Constipation 11/22/18 13:30 12/22/18 13:29 12/04/18 21:38 Tamsulosin HCl (Flomax) 0.4 mg BEDTIME ORAL 11/22/18 21:00 12/22/18 20:59 12/05/18 20:00 Temazepam (Restoril) 15 mg HSPRN PRN ORAL Insomnia 12/05/18 10:00 12/12/18 09:59 Kashif Adorno MD Dec 06, 2018 06:42
--- NOTE | 2018-12-06 07:56 | Urology Progress Note ---
Assessment/Plan Status: stable Assessment/Plan: 1. Left hydronephrosis. 2. Hematuria. 3. Pyuria. 4. Proteinuria. 5. Benign prostatic hypertrophy. 6. Incontinence. 7. Neurogenic bladder. 8. Cystitis. 9. Bladder cancer. 10. POD # 12, cysto/TURBT monitor clinically hernandez out and voiding left hydro secondary to bladder tumor left nephrostomy placed 11/26, keep off suction hand irrigate PRN unable to place antegrade ureteral stent flomax and proscar monitor for voiding and reinsert hernandez PRN s/p diflucan med onc eval will d/w IR to reattempt antegrade stent, poss today NPO Subjective Allergies: Coded Allergies: No Known Allergies (Unverified , 04/09/16) Subjective all noted, feels fair, voiding Objective Last 24 Hour Vital Signs Date Time Temp Pulse Resp B/P (MAP) Pulse Ox O2 Delivery O2 Flow Rate FiO2 12/06/18 04:00 97.7 61 18 138/68 (91) 100 12/06/18 00:00 98.1 61 18 113/62 (79) 100 12/05/18 21:00 Room Air 12/05/18 20:00 98.1 63 18 121/57 (78) 100 12/05/18 17:21 130/70 12/05/18 16:00 97.6 97 18 130/70 (90) 100 12/05/18 14:24 170/76 12/05/18 12:00 98.2 62 18 170/76 (107) 100 12/05/18 09:13 Room Air 12/05/18 08:12 60 158/68 12/05/18 08:12 158/68 12/05/18 08:00 97.3 60 18 158/77 (104) 100 Intake and Output 12/05/18 12/06/18 18:59 06:59 Intake Total 1575 ml 925 ml Output Total 1500 ml 1701 ml Balance 75 ml -776 ml Intake Oral 750 ml 250 ml IV Total 825 ml 675 ml Output Urine Total 900 ml 1000 ml Stool Total 1 ml Other 600 ml 700 ml # Voids 1 # Bowel Movements 2 Microbiology Date/Time Source Procedure Growth Status 11/22/18 12:20 Nasal Nares MRSA Culture - Final NO METHICILLIN RESISTANT STAPH AUREUS... Complete 11/22/18 11:15 Urine,Clean Catch Urine Culture - Final YEAST Complete 11/22/18 12:20 Rectal Mucosa VRE Culture - Final NO VANCOMYCIN RESISTANT ENTEROCOCCUS ... Complete 11/22/18 12:20 Rectal Mucosa - Final NO CARBAPENEM-RESISTANT ENTEROBACTERI... Complete Current Medications Medications (Trade) Dose Ordered Sig/Levi Route PRN Reason Start Time Stop Time Status Last Admin Dose Admin Acetaminophen (Tylenol) 650 mg Q4H PRN ORAL fever 11/22/18 13:30 12/22/18 13:29 Al Hydroxide/Mg Hydroxide (Mylanta II) 30 ml Q6H PRN ORAL dyspepsia 11/22/18 13:30 12/22/18 13:29 Amlodipine Besylate (Norvasc) 2.5 mg DAILY ORAL 11/29/18 09:00 12/29/18 08:59 12/05/18 08:12 Dextrose (Dextrose 50%) 25 ml Q30M PRN IV Hypoglycemia 11/22/18 13:30 12/22/18 13:23 11/22/18 17:21 Dextrose (Dextrose 50%) 50 ml Q30M PRN IV hypoglycemia 11/22/18 13:30 12/22/18 13:29 Dextrose/Sodium Chloride 1,000 ml @ 75 mls/hr [id number] IV 11/22/18 13:16 12/22/18 13:15 12/06/18 06:33 Diphenhydramine HCl (Benadryl) 25 mg Q6H PRN ORAL Itching/Pruritis 11/22/18 13:30 12/22/18 13:29 Finasteride (Proscar) 5 mg DAILY ORAL 11/22/18 19:45 12/22/18 19:44 12/05/18 08:12 Hydralazine HCl (Apresoline) 50 mg Q6H PRN ORAL SBP > 160 11/22/18 17:30 12/22/18 17:29 12/05/18 14:24 Insulin Aspart (NovoLOG) BEFORE MEALS AND HS SUBQ 11/22/18 16:30 12/22/18 16:29 12/06/18 06:10 Irbesartan (Avapro) 150 mg BID ORAL 11/25/18 09:00 12/25/18 08:59 12/05/18 17:21 Methimazole (Tapazole) 10 mg DAILY ORAL 11/29/18 09:00 12/24/18 08:59 12/05/18 08:12 Morphine Sulfate (Morphine Sulfate) 2 mg Q4H PRN IVP Severe Pain (Pain Scale 7-10) 12/01/18 23:15 12/08/18 23:14 12/04/18 17:27 Nateglinide (Starlix) 120 mg TIAC ORAL 11/29/18 11:30 12/24/18 11:29 12/06/18 06:08 Nitroglycerin (Ntg) 0.4 mg Q5M X 3 DOSES PRN SL Prn Chest Pain 11/22/18 13:30 12/22/18 13:29 Ondansetron HCl (Zofran) 4 mg Q6H PRN IVP Nausea & Vomiting 11/22/18 13:30 12/22/18 13:29 Pantoprazole (Protonix) 40 mg DAILY ORAL 12/05/18 09:00 12/24/18 20:59 12/05/18 08:12 Polyethylene Glycol (Miralax) 17 gm HSPRN PRN ORAL Constipation 11/22/18 13:30 12/22/18 13:29 12/04/18 21:38 Tamsulosin HCl (Flomax) 0.4 mg BEDTIME ORAL 11/22/18 21:00 12/22/18 20:59 12/05/18 20:00 Temazepam (Restoril) 15 mg HSPRN PRN ORAL Insomnia 12/05/18 10:00 12/12/18 09:59 Laboratory Tests 12/06/18 05:30: White Blood Count 7.9, Red Blood Count 3.42L, Hemoglobin 10.3L, Hematocrit 30.3L , Mean Corpuscular Volume 89, Mean Corpuscular Hemoglobin 30.1, Mean Corpuscular Hemoglobin Concent 33.9, Red Cell Distribution Width 11.0L, Platelet Count 209, Mean Platelet Volume 6.2L, Neutrophils (%) (Auto) 72.9, Lymphocytes (%) (Auto) 19.6L, Monocytes (%) (Auto) 6.6, Eosinophils (%) (Auto) 0.0, Basophils (%) (Auto) 1.0, Sodium Level 139, Potassium Level 4.2, Chloride Level 105, Carbon Dioxide Level 29, Anion Gap 5, Blood Urea Nitrogen 14, Creatinine 1.0, Estimat Glomerular Filtration Rate , Glucose Level 111H, Calcium Level 9.0 Height (Feet): 6 Height (Inches): 6.00 Weight (Pounds): 185 Objective exam stable left nephrostomy output clearing final path noted Macho Allen MD Dec 06, 2018 07:56
[2018-12-06 08:00] VITALS: BP_SYST 130; BP_SYST 136; BP_DIAS 72; BP_DIAS 75
[2018-12-06] MEDS: Irbesartan 150mg tablet ORAL SCH ×2 (08:15→18:18)
[2018-12-06] MEDS ORDERED: Isovue-300 100ml vial INJ PRN (08:15)
--- NOTE | 2018-12-06 10:25 | NUR ---
NURSE NOTES: Received telephone consent from Granddaughter Celestina Braxton for antegrade uretal stent placement. Charge nurse Berenice Neal witnessed and also confirmed the phone consent with patient' granddaughter. Addendum: 12/07/18 at 0017 by AKUA YANEZ RN RN Disregard above note; wrong time.
--- NOTE | 2018-12-06 10:45 | GI Progress Note ---
Assessment/Plan Problems: (1) Lower GI bleed ICD Codes: K92.2 - Gastrointestinal hemorrhage, unspecified SNOMED: 22097418 (2) Anemia ICD Codes: D64.9 - Anemia, unspecified SNOMED: 326286761 (3) Bleeding hemorrhoid ICD Codes: K64.9 - Unspecified hemorrhoids SNOMED: 21151026 (4) Alzheimer's dementia ICD Codes: G30.9 - Alzheimer's disease, unspecified; F02.80 - Dementia in other diseases classified elsewhere without behavioral disturbance SNOMED: 49328866 (5) Diabetes mellitus ICD Codes: E11.9 - Type 2 diabetes mellitus without complications SNOMED: 84072668 Status: stable, unchanged Status Narrative Discussed with Dr. Hernandez Assessment/Plan SUMMARY OF FINDINGS: 1. Gastritis and possibly gastric ulceration, status post biopsy. 2. One colonic polyp removed, see above for details. 3. Internal hemorrhoids. Occult blood stool negative Patient passed video swallow RECOMMENDATIONS: Follow up pathology. >> H. pylori negative Resume diet. Follow with Urology given diagnosis of bladder cancer. monitor H&H, prn transfusions bowel regime ppi fu labs dc planning The patient was seen and examined at bedside and all new and available data was reviewed in the patients chart. I agree with the above findings, impression and plan. (Patient seen earlier today. Signature stamp does not reflect patient encounter time.). - Prince Hernandez MD Subjective Subjective Limited Objective Last 24 Hour Vital Signs Date Time Temp Pulse Resp B/P (MAP) Pulse Ox O2 Delivery O2 Flow Rate FiO2 12/06/18 09:00 Room Air 12/06/18 08:16 61 138/68 12/06/18 08:15 138/68 12/06/18 04:00 97.7 61 18 138/68 (91) 100 12/06/18 00:00 98.1 61 18 113/62 (79) 100 12/05/18 21:00 Room Air 12/05/18 20:00 98.1 63 18 121/57 (78) 100 12/05/18 17:21 130/70 12/05/18 16:00 97.6 97 18 130/70 (90) 100 12/05/18 14:24 170/76 12/05/18 12:00 98.2 62 18 170/76 (107) 100 Intake and Output 12/05/18 12/06/18 19:00 07:00 Intake Total 1650 ml 850 ml Output Total 1500 ml 1701 ml Balance 150 ml -851 ml Intake Oral 750 ml 250 ml IV Total 900 ml 600 ml Output Urine Total 900 ml 1000 ml Stool Total 1 ml Other 600 ml 700 ml # Voids 1 # Bowel Movements 2 Laboratory Tests Test 12/06/18 05:30 White Blood Count 7.9 K/UL (4.8-10.8) Red Blood Count 3.42 M/UL (4.70-6.10) L Hemoglobin 10.3 G/DL (14.2-18.0) L Hematocrit 30.3 % (42.0-52.0) L Mean Corpuscular Volume 89 FL (80-99) Mean Corpuscular Hemoglobin 30.1 PG (27.0-31.0) Mean Corpuscular Hemoglobin Concent 33.9 G/DL (32.0-36.0) Red Cell Distribution Width 11.0 % (11.6-14.8) L Platelet Count 209 K/UL (150-450) Mean Platelet Volume 6.2 FL (6.5-10.1) L Neutrophils (%) (Auto) 72.9 % (45.0-75.0) Lymphocytes (%) (Auto) 19.6 % (20.0-45.0) L Monocytes (%) (Auto) 6.6 % (1.0-10.0) Eosinophils (%) (Auto) 0.0 % (0.0-3.0) Basophils (%) (Auto) 1.0 % (0.0-2.0) Sodium Level 139 MMOL/L (136-145) Potassium Level 4.2 MMOL/L (3.5-5.1) Chloride Level 105 MMOL/L (98-107) Carbon Dioxide Level 29 MMOL/L (21-32) Anion Gap 5 mmol/L (5-15) Blood Urea Nitrogen 14 mg/dL (7-18) Creatinine 1.0 MG/DL (0.55-1.30) Estimat Glomerular Filtration Rate mL/min (>60) Glucose Level 111 MG/DL (74-106) H Calcium Level 9.0 MG/DL (8.5-10.1) Height (Feet): 6 Height (Inches): 6.00 Weight (Pounds): 185 General Appearance: WD/WN, no apparent distress, alert Cardiovascular: normal rate Respiratory/Chest: normal breath sounds, no respiratory distress Abdominal Exam: normal bowel sounds, non tender, soft Extremities: normal range of motion, non-tender Osiel Vega NP Dec 06, 2018 10:45
--- NOTE | 2018-12-06 11:27 | Infectious Diseases Prog Note ---
Assessment/Plan Assessment/Plan Assessment: Hematochezia -11/24 SP EGD/Colonoscopy: gastritis, hemorrhoids L hydronephrosis/L Hydroureter 2ry to extensive bladder tumor -11/25 SP Cystoscopy, urethral calibration, transurethral resection of extensive bladder tumor with fulguration, and right retrograde pyelogram. -Findings: The patient had what appeared to be a large bladder tumor that involved most of the left side of the bladder extending posteriorly and completely obliterating the left ureteral orifice. I was unable to place a stent on the left side. - -CT abd/p: Limited assessment of the GI tract, due to lack of enteric contrast administration. Moderate left hydronephrosis and hydroureter. Hydroureter extends to the bladder, where there is asymmetric posterolateral wall thickening raises concern for neoplasm. Further evaluation with cystoscopy should be considered. There is also generalized wall thickening, possibly on the basis of cystitis or chronic bladder outlet obstruction. No definite findings to suggest etiology of stated clinical history of GI bleed. Cholelithiasis. Basilar pulmonary atelectasis and equivocal slight interstitial congestion. L1 vertebral body compression fracture deformity, age indeterminate. Consider MRI for further evaluation if this is clinically relevant Afebrile NO leukocytosis -CXR: No acute process Pyuria Funguria -u/a wbc 10-15, nit +, leuk est +3; ucx <10 yeast Encephalopathy -Head CT: Chronic and age-related changes is noted. Negative for acute intracranial bleed or mass effect. 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 Dementia HTN BPH urinary incontinence AV dissociation w/ conduction s/p PPM metabolic encephalopathy UTI seizure disorders Plan: - Monitor off abx - 11/27/18 SP Ceftriaxone #5/5 (will continue post-urologic procedure) and PO Fluconazole #3/3 -Monitor CBC/CMP, temperatures -GI, Uro f/u -aspiration precautions Subjective Constitutional: Denies: no symptoms, fever, chills, fatigue, anorexia, drenching sweats, other Allergies: Coded Allergies: No Known Allergies (Unverified , 04/09/16) Objective Vital Signs Last 24 Hour Vital Signs Date Time Temp Pulse Resp B/P (MAP) Pulse Ox O2 Delivery O2 Flow Rate FiO2 12/06/18 09:00 Room Air 12/06/18 08:16 61 138/68 12/06/18 08:15 138/68 12/06/18 04:00 97.7 61 18 138/68 (91) 100 12/06/18 00:00 98.1 61 18 113/62 (79) 100 12/05/18 21:00 Room Air 12/05/18 20:00 98.1 63 18 121/57 (78) 100 12/05/18 17:21 130/70 12/05/18 16:00 97.6 97 18 130/70 (90) 100 12/05/18 14:24 170/76 12/05/18 12:00 98.2 62 18 170/76 (107) 100 Height (Feet): 6 Height (Inches): 6.00 Weight (Pounds): 185 HEENT: anicteric Respiratory/Chest: lungs clear Cardiovascular: regularly irregular Abdomen: no organomegaly Laboratory Tests Test 12/06/18 05:30 White Blood Count 7.9 K/UL (4.8-10.8) Red Blood Count 3.42 M/UL (4.70-6.10) L Hemoglobin 10.3 G/DL (14.2-18.0) L Hematocrit 30.3 % (42.0-52.0) L Mean Corpuscular Volume 89 FL (80-99) Mean Corpuscular Hemoglobin 30.1 PG (27.0-31.0) Mean Corpuscular Hemoglobin Concent 33.9 G/DL (32.0-36.0) Red Cell Distribution Width 11.0 % (11.6-14.8) L Platelet Count 209 K/UL (150-450) Mean Platelet Volume 6.2 FL (6.5-10.1) L Neutrophils (%) (Auto) 72.9 % (45.0-75.0) Lymphocytes (%) (Auto) 19.6 % (20.0-45.0) L Monocytes (%) (Auto) 6.6 % (1.0-10.0) Eosinophils (%) (Auto) 0.0 % (0.0-3.0) Basophils (%) (Auto) 1.0 % (0.0-2.0) Sodium Level 139 MMOL/L (136-145) Potassium Level 4.2 MMOL/L (3.5-5.1) Chloride Level 105 MMOL/L (98-107) Carbon Dioxide Level 29 MMOL/L (21-32) Anion Gap 5 mmol/L (5-15) Blood Urea Nitrogen 14 mg/dL (7-18) Creatinine 1.0 MG/DL (0.55-1.30) Estimat Glomerular Filtration Rate mL/min (>60) Glucose Level 111 MG/DL (74-106) H Calcium Level 9.0 MG/DL (8.5-10.1) Current Medications Medications (Trade) Dose Ordered Sig/Levi Route PRN Reason Start Time Stop Time Status Last Admin Dose Admin Acetaminophen (Tylenol) 650 mg Q4H PRN ORAL fever 11/22/18 13:30 12/22/18 13:29 Al Hydroxide/Mg Hydroxide (Mylanta II) 30 ml Q6H PRN ORAL dyspepsia 11/22/18 13:30 12/22/18 13:29 Amlodipine Besylate (Norvasc) 2.5 mg DAILY ORAL 11/29/18 09:00 12/29/18 08:59 12/06/18 08:16 Dextrose (Dextrose 50%) 25 ml Q30M PRN IV Hypoglycemia 11/22/18 13:30 12/22/18 13:23 11/22/18 17:21 Dextrose (Dextrose 50%) 50 ml Q30M PRN IV hypoglycemia 11/22/18 13:30 12/22/18 13:29 Dextrose/Sodium Chloride 1,000 ml @ 75 mls/hr [id number] IV 11/22/18 13:16 12/22/18 13:15 12/06/18 06:33 Diphenhydramine HCl (Benadryl) 25 mg Q6H PRN ORAL Itching/Pruritis 11/22/18 13:30 12/22/18 13:29 Finasteride (Proscar) 5 mg DAILY ORAL 11/22/18 19:45 12/22/18 19:44 12/06/18 08:15 Hydralazine HCl (Apresoline) 50 mg Q6H PRN ORAL SBP > 160 11/22/18 17:30 12/22/18 17:29 12/05/18 14:24 Insulin Aspart (NovoLOG) BEFORE MEALS AND HS SUBQ 11/22/18 16:30 12/22/18 16:29 12/06/18 06:10 Iopamidol (Isovue-300 100ml) 200 ml NOW PRN INJ Radiology Procedure 12/06/18 08:15 12/09/18 08:13 Irbesartan (Avapro) 150 mg BID ORAL 11/25/18 09:00 12/25/18 08:59 12/06/18 08:15 Methimazole (Tapazole) 10 mg DAILY ORAL 11/29/18 09:00 12/24/18 08:59 12/06/18 08:15 Morphine Sulfate (Morphine Sulfate) 2 mg Q4H PRN IVP Severe Pain (Pain Scale 7-10) 12/01/18 23:15 12/08/18 23:14 12/04/18 17:27 Nateglinide (Starlix) 120 mg TIAC ORAL 11/29/18 11:30 12/24/18 11:29 12/06/18 06:08 Nitroglycerin (Ntg) 0.4 mg Q5M X 3 DOSES PRN SL Prn Chest Pain 11/22/18 13:30 12/22/18 13:29 Ondansetron HCl (Zofran) 4 mg Q6H PRN IVP Nausea & Vomiting 11/22/18 13:30 12/22/18 13:29 Pantoprazole (Protonix) 40 mg DAILY ORAL 12/05/18 09:00 12/24/18 20:59 12/06/18 08:15 Polyethylene Glycol (Miralax) 17 gm HSPRN PRN ORAL Constipation 11/22/18 13:30 12/22/18 13:29 12/04/18 21:38 Tamsulosin HCl (Flomax) 0.4 mg BEDTIME ORAL 11/22/18 21:00 12/22/18 20:59 12/05/18 20:00 Temazepam (Restoril) 15 mg HSPRN PRN ORAL Insomnia 12/05/18 10:00 12/12/18 09:59 Khai Cordoba MD Dec 06, 2018 11:27
--- NOTE | 2018-12-06 11:37 | NUR ---
RD ASSESSMENT & RECOMMENDATIONS SEE CARE ACTIVITY FOR COMPLETE ASSESSMENT DAILY ESTIMATED NEEDS: Needs based on DM 75kg adj 25-30 kcals/kg 0397-1634 total kcals 1-1.5 g protein/kg 75-113 g total protein 20-25 mL/kg 6094-9645 total fluid mLs NUTRITION DIAGNOSIS: * Altered nutrition related lab values r.t diabetes as evidenced by A1C 6.6. * Swallowing and chewing difficulty R/T dysphagia and poor dentition as evidenced by pt on [facility] soft finely chopped texture diet per [employer]. CURRENT DIET:REGULAR, [facility] soft finely chopped PO DIET RECOMMENDATIONS: CCHO MED / texture per [employer] ADDITIONAL RECOMMENDATIONS: 1) Calibrated bedscale wt for accurate CBW 2) Rec to DC D5 IVF- for glycemic control, pt w/ good PO intake 3) Monitor lytes, replete as needed (low mag) 4) Updated CMP as justin 5) UPDATED BED SCALE WT ABLE -> Pt presents w/ possible 5# wt loss from adm (182#-> 177#)
[2018-12-06 12:00] VITALS: BP 130/75
--- NOTE | 2018-12-06 12:00 | NUR ---
NURSE NOTES: Patine awake, alert x2, confused; on room air, no sign of distress and shortness of breath; no sign of chest pain; IV Right for-arm fluid running at 75cc; Left nephrostomy in place drains yellow urine; bed at lowest position, side rails padded for seizure percussion, breaks engaged; call light within reach, will keep monitoring,
--- NOTE | 2018-12-06 12:36 | Pulmonology Progress Note ---
Assessment/Plan Problems: (1) Lower GI bleed (2) Hydronephrosis (3) Anemia (4) Bladder neoplasm (5) Chronic cerebrovascular accident (CVA) (6) Diabetes mellitus (7) Alzheimer's dementia (8) HTN (hypertension) Assessment/Plan talked to radiologist they will try to put the urethral stent again no new complains nephrostomy in place. tolerated cystoscopy follow up with pathology, still not available. looks comfortable sliding scale monitor bp f/u urology recommendations prbc prn check H/H dvt prophylaxis. Subjective ROS Limited/Unobtainable: No Constitutional: Reports: no symptoms HEENT: Repors: no symptoms Allergies: Coded Allergies: No Known Allergies (Unverified , 04/09/16) Objective Last 24 Hour Vital Signs Date Time Temp Pulse Resp B/P (MAP) Pulse Ox O2 Delivery O2 Flow Rate FiO2 12/06/18 09:00 Room Air 12/06/18 08:16 61 138/68 12/06/18 08:15 138/68 12/06/18 04:00 97.7 61 18 138/68 (91) 100 12/06/18 00:00 98.1 61 18 113/62 (79) 100 12/05/18 21:00 Room Air 12/05/18 20:00 98.1 63 18 121/57 (78) 100 12/05/18 17:21 130/70 12/05/18 16:00 97.6 97 18 130/70 (90) 100 12/05/18 14:24 170/76 Intake and Output 12/05/18 12/06/18 19:00 07:00 Intake Total 1650 ml 850 ml Output Total 1500 ml 1701 ml Balance 150 ml -851 ml Intake Oral 750 ml 250 ml IV Total 900 ml 600 ml Output Urine Total 900 ml 1000 ml Stool Total 1 ml Other 600 ml 700 ml # Voids 1 # Bowel Movements 2 Objective nephrostomy still draining blood tinged urine, but less than previous day General Appearance: WD/WN HEENT: normocephalic, atraumatic Cardiovascular: normal peripheral pulses, normal rate Abdomen: normal bowel sounds, soft, non tender Genitourinary: normal external genitalia Extremities: no clubbing Skin: no rash Laboratory Tests 12/06/18 05:30: White Blood Count 7.9, Red Blood Count 3.42L, Hemoglobin 10.3L, Hematocrit 30.3L , Mean Corpuscular Volume 89, Mean Corpuscular Hemoglobin 30.1, Mean Corpuscular Hemoglobin Concent 33.9, Red Cell Distribution Width 11.0L, Platelet Count 209, Mean Platelet Volume 6.2L, Neutrophils (%) (Auto) 72.9, Lymphocytes (%) (Auto) 19.6L, Monocytes (%) (Auto) 6.6, Eosinophils (%) (Auto) 0.0, Basophils (%) (Auto) 1.0, Sodium Level 139, Potassium Level 4.2, Chloride Level 105, Carbon Dioxide Level 29, Anion Gap 5, Blood Urea Nitrogen 14, Creatinine 1.0, Estimat Glomerular Filtration Rate , Glucose Level 111H, Calcium Level 9.0 Current Medications Medications (Trade) Dose Ordered Sig/Levi Route PRN Reason Start Time Stop Time Status Last Admin Dose Admin Acetaminophen (Tylenol) 650 mg Q4H PRN ORAL fever 11/22/18 13:30 12/22/18 13:29 Al Hydroxide/Mg Hydroxide (Mylanta II) 30 ml Q6H PRN ORAL dyspepsia 11/22/18 13:30 12/22/18 13:29 Amlodipine Besylate (Norvasc) 2.5 mg DAILY ORAL 11/29/18 09:00 12/29/18 08:59 12/06/18 08:16 Dextrose (Dextrose 50%) 25 ml Q30M PRN IV Hypoglycemia 11/22/18 13:30 12/22/18 13:23 11/22/18 17:21 Dextrose (Dextrose 50%) 50 ml Q30M PRN IV hypoglycemia 11/22/18 13:30 12/22/18 13:29 Dextrose/Sodium Chloride 1,000 ml @ 75 mls/hr [id number] IV 11/22/18 13:16 12/22/18 13:15 12/06/18 06:33 Diphenhydramine HCl (Benadryl) 25 mg Q6H PRN ORAL Itching/Pruritis 11/22/18 13:30 12/22/18 13:29 Finasteride (Proscar) 5 mg DAILY ORAL 11/22/18 19:45 12/22/18 19:44 12/06/18 08:15 Hydralazine HCl (Apresoline) 50 mg Q6H PRN ORAL SBP > 160 11/22/18 17:30 12/22/18 17:29 12/05/18 14:24 Insulin Aspart (NovoLOG) BEFORE MEALS AND HS SUBQ 11/22/18 16:30 12/22/18 16:29 12/06/18 06:10 Iopamidol (Isovue-300 100ml) 200 ml NOW PRN INJ Radiology Procedure 12/06/18 08:15 12/09/18 08:13 Irbesartan (Avapro) 150 mg BID ORAL 11/25/18 09:00 12/25/18 08:59 12/06/18 08:15 Methimazole (Tapazole) 10 mg DAILY ORAL 11/29/18 09:00 12/24/18 08:59 12/06/18 08:15 Morphine Sulfate (Morphine Sulfate) 2 mg Q4H PRN IVP Severe Pain (Pain Scale 7-10) 12/01/18 23:15 12/08/18 23:14 12/04/18 17:27 Nateglinide (Starlix) 120 mg TIAC ORAL 11/29/18 11:30 12/24/18 11:29 12/06/18 06:08 Nitroglycerin (Ntg) 0.4 mg Q5M X 3 DOSES PRN SL Prn Chest Pain 11/22/18 13:30 12/22/18 13:29 Ondansetron HCl (Zofran) 4 mg Q6H PRN IVP Nausea & Vomiting 11/22/18 13:30 12/22/18 13:29 Pantoprazole (Protonix) 40 mg DAILY ORAL 12/05/18 09:00 12/24/18 20:59 12/06/18 08:15 Polyethylene Glycol (Miralax) 17 gm HSPRN PRN ORAL Constipation 11/22/18 13:30 12/22/18 13:29 12/04/18 21:38 Tamsulosin HCl (Flomax) 0.4 mg BEDTIME ORAL 11/22/18 21:00 12/22/18 20:59 12/05/18 20:00 Temazepam (Restoril) 15 mg HSPRN PRN ORAL Insomnia 12/05/18 10:00 12/12/18 09:59 Og Hinkle MD Dec 06, 2018 12:36
--- NOTE | 2018-12-06 14:10 | NUR ---
Social Service Note BARRERA attempting to locate listed next of kin Celestina Braxton [phone]. This number listed has a voice mail that is full and is not able to accept messages. BARRERA contacted Dr. Lowe's office and they do not have an alternative phone number listed for Celestina. BARRERA contacted [facility] [phone]. [facility] they did not fiber picker patient due to unable to reach patient or family to set up initial visit. The number they had on file [phone] for family doesn't have voice mail arranged and BARRERA is unable to leave a message. BARRERA reviewed previous admission and Celestina was the only listed contact. The alternative contact Darrius Espitia [phone] PLEASE DO NOT CALL THIS NUMBER as it is not a person who is aware of the patient and requests that it no longer be called moving forward. BARRERA discussed with charge nurse. Will monitor and follow up.
--- NOTE | 2018-12-06 14:59 | NUR ---
NURSE NOTES: Unable to do the IVP W Nephrotomograph today for the reason that unable to get consent. Tried and left a message the next of kin of patient, Fox Brock. We also communicated social service regarding the matter. MD Allen is aware.
--- NOTE | 2018-12-06 15:20 | Consultation ---
History of Present Illness General Chief Complaint: Gastrointestinal Bleed Referring physician: BRETT JOHNSON Reason for Consultation: GI BLEED Present Illness Allergies: Coded Allergies: No Known Allergies (Unverified , 04/09/16) Medication History Scheduled Lisinopril (Lisinopril*), 20 MG ORAL DAILY Metformin Hcl (Glucophage), 1,000 MG ORAL EVERY 12 HOURS Miscellaneous Medications Unable to Obtain Medications (Unable To Obtain Meds), (Reported) Patient History Healthcare decision maker Resuscitation status Full Code Advanced Directive on File Physical Exam Last 24 Hour Vital Signs Date Time Temp Pulse Resp B/P (MAP) Pulse Ox O2 Delivery O2 Flow Rate FiO2 12/06/18 12:00 98.4 99 18 130/75 (93) 98 12/06/18 09:00 Room Air 12/06/18 08:16 61 138/68 12/06/18 08:15 138/68 12/06/18 08:00 98.1 97 18 136/72 (93) 99 12/06/18 04:00 97.7 61 18 138/68 (91) 100 12/06/18 00:00 98.1 61 18 113/62 (79) 100 12/05/18 21:00 Room Air 12/05/18 20:00 98.1 63 18 121/57 (78) 100 12/05/18 17:21 130/70 12/05/18 16:00 97.6 97 18 130/70 (90) 100 Intake and Output 12/05/18 12/06/18 19:00 07:00 Intake Total 1650 ml 850 ml Output Total 1500 ml 1701 ml Balance 150 ml -851 ml Intake Oral 750 ml 250 ml IV Total 900 ml 600 ml Output Urine Total 900 ml 1000 ml Stool Total 1 ml Other 600 ml 700 ml # Voids 1 # Bowel Movements 2 Laboratory Tests Test 12/06/18 05:30 White Blood Count 7.9 K/UL (4.8-10.8) Red Blood Count 3.42 M/UL (4.70-6.10) L Hemoglobin 10.3 G/DL (14.2-18.0) L Hematocrit 30.3 % (42.0-52.0) L Mean Corpuscular Volume 89 FL (80-99) Mean Corpuscular Hemoglobin 30.1 PG (27.0-31.0) Mean Corpuscular Hemoglobin Concent 33.9 G/DL (32.0-36.0) Red Cell Distribution Width 11.0 % (11.6-14.8) L Platelet Count 209 K/UL (150-450) Mean Platelet Volume 6.2 FL (6.5-10.1) L Neutrophils (%) (Auto) 72.9 % (45.0-75.0) Lymphocytes (%) (Auto) 19.6 % (20.0-45.0) L Monocytes (%) (Auto) 6.6 % (1.0-10.0) Eosinophils (%) (Auto) 0.0 % (0.0-3.0) Basophils (%) (Auto) 1.0 % (0.0-2.0) Sodium Level 139 MMOL/L (136-145) Potassium Level 4.2 MMOL/L (3.5-5.1) Chloride Level 105 MMOL/L (98-107) Carbon Dioxide Level 29 MMOL/L (21-32) Anion Gap 5 mmol/L (5-15) Blood Urea Nitrogen 14 mg/dL (7-18) Creatinine 1.0 MG/DL (0.55-1.30) Estimat Glomerular Filtration Rate mL/min (>60) Glucose Level 111 MG/DL (74-106) H Calcium Level 9.0 MG/DL (8.5-10.1) Height (Feet): 6 Height (Inches): 6.00 Weight (Pounds): 185 Medications Current Medications Medications (Trade) Dose Ordered Sig/Levi Route PRN Reason Start Time Stop Time Status Last Admin Dose Admin Acetaminophen (Tylenol) 650 mg Q4H PRN ORAL fever 11/22/18 13:30 12/22/18 13:29 Al Hydroxide/Mg Hydroxide (Mylanta II) 30 ml Q6H PRN ORAL dyspepsia 11/22/18 13:30 12/22/18 13:29 Amlodipine Besylate (Norvasc) 2.5 mg DAILY ORAL 11/29/18 09:00 12/29/18 08:59 12/06/18 08:16 Dextrose (Dextrose 50%) 25 ml Q30M PRN IV Hypoglycemia 11/22/18 13:30 12/22/18 13:23 11/22/18 17:21 Dextrose (Dextrose 50%) 50 ml Q30M PRN IV hypoglycemia 11/22/18 13:30 12/22/18 13:29 Dextrose/Sodium Chloride 1,000 ml @ 75 mls/hr [id number] IV 11/22/18 13:16 12/22/18 13:15 12/06/18 06:33 Diphenhydramine HCl (Benadryl) 25 mg Q6H PRN ORAL Itching/Pruritis 11/22/18 13:30 12/22/18 13:29 Finasteride (Proscar) 5 mg DAILY ORAL 11/22/18 19:45 12/22/18 19:44 12/06/18 08:15 Hydralazine HCl (Apresoline) 50 mg Q6H PRN ORAL SBP > 160 11/22/18 17:30 12/22/18 17:29 12/05/18 14:24 Insulin Aspart (NovoLOG) BEFORE MEALS AND HS SUBQ 11/22/18 16:30 12/22/18 16:29 12/06/18 06:10 Iopamidol (Isovue-300 100ml) 200 ml NOW PRN INJ Radiology Procedure 12/06/18 08:15 12/09/18 08:13 Irbesartan (Avapro) 150 mg BID ORAL 11/25/18 09:00 12/25/18 08:59 12/06/18 08:15 Methimazole (Tapazole) 10 mg DAILY ORAL 11/29/18 09:00 12/24/18 08:59 12/06/18 08:15 Morphine Sulfate (Morphine Sulfate) 2 mg Q4H PRN IVP Severe Pain (Pain Scale 7-10) 12/01/18 23:15 12/08/18 23:14 12/04/18 17:27 Nateglinide (Starlix) 120 mg TIAC ORAL 11/29/18 11:30 12/24/18 11:29 12/06/18 06:08 Nitroglycerin (Ntg) 0.4 mg Q5M X 3 DOSES PRN SL Prn Chest Pain 11/22/18 13:30 12/22/18 13:29 Ondansetron HCl (Zofran) 4 mg Q6H PRN IVP Nausea & Vomiting 11/22/18 13:30 12/22/18 13:29 Pantoprazole (Protonix) 40 mg DAILY ORAL 12/05/18 09:00 12/24/18 20:59 12/06/18 08:15 Polyethylene Glycol (Miralax) 17 gm HSPRN PRN ORAL Constipation 11/22/18 13:30 12/22/18 13:29 12/04/18 21:38 Tamsulosin HCl (Flomax) 0.4 mg BEDTIME ORAL 11/22/18 21:00 12/22/18 20:59 12/05/18 20:00 Temazepam (Restoril) 15 mg HSPRN PRN ORAL Insomnia 12/05/18 10:00 12/12/18 09:59 Assessment/Plan Assessment/Plan: Hematology/Oncology Consultation DOS: 12/06/18 Referring physician: Kath Peter Reason for Consultation: GI BLEED, BLADDER CANCER HPI Patient presents emergency departmenr 11/22 complaining of blood in the diaper. Patient is a poor historian and was brought here by the paramedics. Apparently patient's granddaughter called for help and called the paramedics Patient is uncertain if he is getting exactly all the medications that he needs to get. No other complaints are noted other than generalized weakness and confusion as well as possible blood in the urine or rectum. Symptoms noted to be moderate to severe. No other modifying factors. No other associated signs and symptoms. No other complaints were noted. Pt seen, awake A&O4 NAD with no active s/sx of N/V or diarrhea. Patient confirmed he noted blood in his stool recently. Patient is a poor historian. Unable to recall any past medical events or surgeries. Unknown history of endoscopy or colonoscopy. Abdominal Pelvis CT reviewed, No definite findings to suggest etiology of stated clinical history of GI bleed. Labs reviewed; Hgb 11.2, K 3.2. - 11/25 SP Cystoscopy, urethral calibration, transurethral resection of extensive bladder tumor with fulguration, and right retrograde pyelogram. - Findings: The patient had what appeared to be a large bladder tumor that involved most of the left side of the bladder extending posteriorly and completely obliterating the left ureteral orifice. I was unable to place a stent on the left side. - CT abd/p: Limited assessment of the GI tract, due to lack of enteric contrast administration. Moderate left hydronephrosis and hydroureter. Hydroureter extends to the bladder, where there is asymmetric posterolateral wall thickening raises concern for neoplasm. Further evaluation with cystoscopy should be considered. There is also generalized wall thickening, possibly on the basis of cystitis or chronic bladder outlet obstruction. No definite findings to suggest etiology of stated clinical history of GI bleed. Cholelithiasis. Basilar pulmonary atelectasis and equivocal slight interstitial congestion. L1 vertebral body compression fracture deformity, age indeterminate. Consider MRI for further evaluation if this is clinically relevant Home Meds Active Scripts Lisinopril (LISINOPRIL*) 20 Mg Tablet, 20 MG ORAL DAILY, #30 TAB Prov:Og Hinkle MD 04/09/16 Metformin Hcl (GLUCOPHAGE) 1,000 Mg Tablet, 1000 MG ORAL EVERY 12 HOURS, #30 TAB Prov:Og Hinkle MD 04/09/16 Reported Medications Unable to Obtain Medications (UNABLE TO OBTAIN MEDS) 1 Ea Ea 04/07/16 Med list reviewed/reconciled: Yes Allergies: Coded Allergies: No Known Allergies (Unverified , 04/09/16) Patient History Limited by: medical condition History Provided By: Medical Record Past Surgical History: other - pacemaker Social History: Denies: smoking, alcohol use, drug use, other GI ROS Review of Systems All Other Systems: negative except mentioned in HPI GI Physical Exam Physical Exam Vital Sign Last 24 Hour Vital Signs Date Time Temp Pulse Resp B/P (MAP) Pulse Ox O2 Delivery O2 Flow Rate FiO2 12/06/18 12:00 98.4 99 18 130/75 (93) 98 12/06/18 09:00 Room Air 12/06/18 08:16 61 138/68 12/06/18 08:15 138/68 12/06/18 08:00 98.1 97 18 136/72 (93) 99 12/06/18 04:00 97.7 61 18 138/68 (91) 100 12/06/18 00:00 98.1 61 18 113/62 (79) 100 12/05/18 21:00 Room Air 12/05/18 20:00 98.1 63 18 121/57 (78) 100 12/05/18 17:21 130/70 12/05/18 16:00 97.6 97 18 130/70 (90) 100 General Appearance: well appearing, no apparent distress, alert Head: normocephalic EENT: PERRL/EOMI, normal ENT inspection Neck: supple Respiratory: normal breath sounds, no respiratory distress Cardiovascular: normal rate Gastrointestinal: normal inspection, non tender, soft, normal bowel sounds, non -distended Genitourinary: deferred Musculoskeletal: normal inspection, back normal, other - upper extremity tremors ++ nephrostomy tube Neurologic: alert, responsive Psychiatric: judgement/insight normal Skin: normal inspection, normal color, no rash, warm/dry, palpation normal, well hydrated Lymphatic: normal inspection, no adenopathy Current Medications Current Medications Medications (Trade) Dose Ordered Sig/Levi Route PRN Reason Start Time Stop Time Status Last Admin Dose Admin Acetaminophen (Tylenol) 650 mg Q4H PRN ORAL fever 11/22/18 13:30 12/22/18 13:29 Al Hydroxide/Mg Hydroxide (Mylanta II) 30 ml Q6H PRN ORAL dyspepsia 11/22/18 13:30 12/22/18 13:29 Amlodipine Besylate (Norvasc) 2.5 mg DAILY ORAL 11/29/18 09:00 12/29/18 08:59 12/06/18 08:16 Dextrose (Dextrose 50%) 25 ml Q30M PRN IV Hypoglycemia 11/22/18 13:30 12/22/18 13:23 11/22/18 17:21 Dextrose (Dextrose 50%) 50 ml Q30M PRN IV hypoglycemia 11/22/18 13:30 12/22/18 13:29 Dextrose/Sodium Chloride 1,000 ml @ 75 mls/hr [id number] IV 11/22/18 13:16 12/22/18 13:15 12/06/18 06:33 Diphenhydramine HCl (Benadryl) 25 mg Q6H PRN ORAL Itching/Pruritis 11/22/18 13:30 12/22/18 13:29 Finasteride (Proscar) 5 mg DAILY ORAL 11/22/18 19:45 12/22/18 19:44 12/06/18 08:15 Hydralazine HCl (Apresoline) 50 mg Q6H PRN ORAL SBP > 160 11/22/18 17:30 12/22/18 17:29 12/05/18 14:24 Insulin Aspart (NovoLOG) BEFORE MEALS AND HS SUBQ 11/22/18 16:30 12/22/18 16:29 12/06/18 06:10 Iopamidol (Isovue-300 100ml) 200 ml NOW PRN INJ Radiology Procedure 12/06/18 08:15 12/09/18 08:13 Irbesartan (Avapro) 150 mg BID ORAL 11/25/18 09:00 12/25/18 08:59 12/06/18 08:15 Methimazole (Tapazole) 10 mg DAILY ORAL 11/29/18 09:00 12/24/18 08:59 12/06/18 08:15 Morphine Sulfate (Morphine Sulfate) 2 mg Q4H PRN IVP Severe Pain (Pain Scale 7-10) 12/01/18 23:15 12/08/18 23:14 12/04/18 17:27 Nateglinide (Starlix) 120 mg TIAC ORAL 11/29/18 11:30 12/24/18 11:29 12/06/18 06:08 Nitroglycerin (Ntg) 0.4 mg Q5M X 3 DOSES PRN SL Prn Chest Pain 11/22/18 13:30 12/22/18 13:29 Ondansetron HCl (Zofran) 4 mg Q6H PRN IVP Nausea & Vomiting 11/22/18 13:30 12/22/18 13:29 Pantoprazole (Protonix) 40 mg DAILY ORAL 12/05/18 09:00 12/24/18 20:59 12/06/18 08:15 Polyethylene Glycol (Miralax) 17 gm HSPRN PRN ORAL Constipation 11/22/18 13:30 12/22/18 13:29 12/04/18 21:38 Tamsulosin HCl (Flomax) 0.4 mg BEDTIME ORAL 11/22/18 21:00 12/22/18 20:59 12/05/18 20:00 Temazepam (Restoril) 15 mg HSPRN PRN ORAL Insomnia 12/05/18 10:00 12/12/18 09:59 Laboratory Tests Test 12/06/18 05:30 White Blood Count 7.9 K/UL (4.8-10.8) Red Blood Count 3.42 M/UL (4.70-6.10) L Hemoglobin 10.3 G/DL (14.2-18.0) L Hematocrit 30.3 % (42.0-52.0) L Mean Corpuscular Volume 89 FL (80-99) Mean Corpuscular Hemoglobin 30.1 PG (27.0-31.0) Mean Corpuscular Hemoglobin Concent 33.9 G/DL (32.0-36.0) Red Cell Distribution Width 11.0 % (11.6-14.8) L Platelet Count 209 K/UL (150-450) Mean Platelet Volume 6.2 FL (6.5-10.1) L Neutrophils (%) (Auto) 72.9 % (45.0-75.0) Lymphocytes (%) (Auto) 19.6 % (20.0-45.0) L Monocytes (%) (Auto) 6.6 % (1.0-10.0) Eosinophils (%) (Auto) 0.0 % (0.0-3.0) Basophils (%) (Auto) 1.0 % (0.0-2.0) Sodium Level 139 MMOL/L (136-145) Potassium Level 4.2 MMOL/L (3.5-5.1) Chloride Level 105 MMOL/L (98-107) Carbon Dioxide Level 29 MMOL/L (21-32) Anion Gap 5 mmol/L (5-15) Blood Urea Nitrogen 14 mg/dL (7-18) Creatinine 1.0 MG/DL (0.55-1.30) Estimat Glomerular Filtration Rate mL/min (>60) Glucose Level 111 MG/DL (74-106) H Calcium Level 9.0 MG/DL (8.5-10.1) Assessment and Recs: # Bladder cancer extensive stage, iintially with L hydronephrosis/L Hydroureter 2ry to extensive bladder tumor, that is extensive stage. 11/25 SP Cystoscopy, urethral calibration, transurethral resection of extensive bladder tumor with fulguration, and right retrograde pyelogram. Findings: The patient had what appeared to be a large bladder tumor that involved most of the left side of the bladder extending posteriorly and completely obliterating the left ureteral orifice. I was unable to place a stent on the left side. --> CT abd/p: Limited assessment of the GI tract, due to lack of enteric contrast administration. Moderate left hydronephrosis and hydroureter. Hydroureter extends to the bladder, where there is asymmetric posterolateral wall thickening raises concern for neoplasm. Further evaluation with cystoscopy should be considered. There is also generalized wall thickening, possibly on the basis of cystitis or chronic bladder outlet obstruction. No definite findings to suggest etiology of stated clinical history of GI bleed. Cholelithiasis. Basilar pulmonary atelectasis and equivocal slight interstitial congestion. L1 vertebral body compression fracture deformity, age indeterminate. --> discussed case with pathologist, obtain pdl1 testing of tumor --> appreciate urology recs --> per ir may attempt placement of urinary stent # Anemia due to lower GI bleed --> appreciate gi recs, reviewed endoscopy report --> iron panel and ferritin ordered # Anemia due to bleeding hemorrhoid --> steriod cream prn # Hydronephrosis # Chronic cerebrovascular accident (CVA) # Diabetes mellitus # Alzheimer's dementia # HTN (hypertension) The timing of this note does not necessarily reflect the time of the patient was seen. Greatly appreciate consultation! Pierce Mcguire MD Dec 06, 2018 15:20
[2018-12-06 16:00] VITALS: BP 151/61
--- NOTE | 2018-12-06 16:46 | NUR ---
NURSE NOTES: I called to Celestina Braxton to get a consent on the procedure for IVP W Nephrotomograpy. The voice mail of the person is full and doesn't accept any message. Will keep trying.
[2018-12-06 17:20] LABS: % IRON SATURATION 11 % (15-50); IRON 24 ug/dL (50-175); TOTAL IRON BINDING CAPACITY 213 ug/dL (250-450)
[2018-12-06 17:37] LABS: FERRITIN 48 NG/ML (8-388)
--- NOTE | 2018-12-06 18:45 | NUR ---
NURSE NOTES: I attempted to reach, Celestina Braxton patient's next of kin to get a consent for IVP W Nephrotomography, however Celestina Braxton's phone doesn't accept any more massage. Charge nurse Newton is aware.
--- NOTE | 2018-12-06 19:22 | Internal Med Progress Note ---
Subjective Date of Service: Dec 06, 2018 Physician Name Jean-Claude Peter Attending Physician Jaziel Lowe MD Current Medications Medications (Trade) Dose Ordered Sig/Levi Route PRN Reason Start Time Stop Time Status Last Admin Dose Admin Acetaminophen (Tylenol) 650 mg Q4H PRN ORAL fever 11/22/18 13:30 12/22/18 13:29 Al Hydroxide/Mg Hydroxide (Mylanta II) 30 ml Q6H PRN ORAL dyspepsia 11/22/18 13:30 12/22/18 13:29 Amlodipine Besylate (Norvasc) 2.5 mg DAILY ORAL 11/29/18 09:00 12/29/18 08:59 12/06/18 08:16 Dextrose (Dextrose 50%) 25 ml Q30M PRN IV Hypoglycemia 11/22/18 13:30 12/22/18 13:23 11/22/18 17:21 Dextrose (Dextrose 50%) 50 ml Q30M PRN IV hypoglycemia 11/22/18 13:30 12/22/18 13:29 Dextrose/Sodium Chloride 1,000 ml @ 75 mls/hr [id number] IV 11/22/18 13:16 12/22/18 13:15 12/06/18 06:33 Diphenhydramine HCl (Benadryl) 25 mg Q6H PRN ORAL Itching/Pruritis 11/22/18 13:30 12/22/18 13:29 Finasteride (Proscar) 5 mg DAILY ORAL 11/22/18 19:45 12/22/18 19:44 12/06/18 08:15 Hydralazine HCl (Apresoline) 50 mg Q6H PRN ORAL SBP > 160 11/22/18 17:30 12/22/18 17:29 12/05/18 14:24 Insulin Aspart (NovoLOG) BEFORE MEALS AND HS SUBQ 11/22/18 16:30 12/22/18 16:29 12/06/18 18:19 Iopamidol (Isovue-300 100ml) 200 ml NOW PRN INJ Radiology Procedure 12/06/18 08:15 12/09/18 08:13 Irbesartan (Avapro) 150 mg BID ORAL 11/25/18 09:00 12/25/18 08:59 12/06/18 18:18 Methimazole (Tapazole) 10 mg DAILY ORAL 11/29/18 09:00 12/24/18 08:59 12/06/18 08:15 Morphine Sulfate (Morphine Sulfate) 2 mg Q4H PRN IVP Severe Pain (Pain Scale 7-10) 12/01/18 23:15 12/08/18 23:14 12/04/18 17:27 Nateglinide (Starlix) 120 mg TIAC ORAL 11/29/18 11:30 12/24/18 11:29 12/06/18 18:27 Nitroglycerin (Ntg) 0.4 mg Q5M X 3 DOSES PRN SL Prn Chest Pain 11/22/18 13:30 12/22/18 13:29 Ondansetron HCl (Zofran) 4 mg Q6H PRN IVP Nausea & Vomiting 11/22/18 13:30 12/22/18 13:29 Pantoprazole (Protonix) 40 mg DAILY ORAL 12/05/18 09:00 12/24/18 20:59 12/06/18 08:15 Polyethylene Glycol (Miralax) 17 gm HSPRN PRN ORAL Constipation 11/22/18 13:30 12/22/18 13:29 12/04/18 21:38 Tamsulosin HCl (Flomax) 0.4 mg BEDTIME ORAL 11/22/18 21:00 12/22/18 20:59 12/05/18 20:00 Temazepam (Restoril) 15 mg HSPRN PRN ORAL Insomnia 12/05/18 10:00 12/12/18 09:59 Allergies: Coded Allergies: No Known Allergies (Unverified , 04/09/16) ROS Limited/Unobtainable: No Constitutional: Reports: no symptoms HEENT: Reports: no symptoms Cardiovascular: Reports: no symptoms Respiratory: Reports: no symptoms Gastrointestinal/Abdominal: Reports: no symptoms Genitourinary: Reports: hematuria 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: Reports: no symptoms Subjective 83 YO M admitted with gastrointestinal hemorrhage. S/P endoscopy and colonoscopy 11/24/18. S/P transurethral bladder tumor resection 11/24/18. S/P left nephrostomy 11/26/18. Cover for Int Wes Lowe Objective Last Vital Signs Date Time Temp Pulse Resp B/P (MAP) Pulse Ox O2 Delivery O2 Flow Rate FiO2 12/06/18 18:18 151/61 12/06/18 16:00 98.0 62 17 100 12/06/18 09:00 Room Air Laboratory Tests Test 12/06/18 05:30 White Blood Count 7.9 K/UL (4.8-10.8) Red Blood Count 3.42 M/UL (4.70-6.10) L Hemoglobin 10.3 G/DL (14.2-18.0) L Hematocrit 30.3 % (42.0-52.0) L Mean Corpuscular Volume 89 FL (80-99) Mean Corpuscular Hemoglobin 30.1 PG (27.0-31.0) Mean Corpuscular Hemoglobin Concent 33.9 G/DL (32.0-36.0) Red Cell Distribution Width 11.0 % (11.6-14.8) L Platelet Count 209 K/UL (150-450) Mean Platelet Volume 6.2 FL (6.5-10.1) L Neutrophils (%) (Auto) 72.9 % (45.0-75.0) Lymphocytes (%) (Auto) 19.6 % (20.0-45.0) L Monocytes (%) (Auto) 6.6 % (1.0-10.0) Eosinophils (%) (Auto) 0.0 % (0.0-3.0) Basophils (%) (Auto) 1.0 % (0.0-2.0) Sodium Level 139 MMOL/L (136-145) Potassium Level 4.2 MMOL/L (3.5-5.1) Chloride Level 105 MMOL/L (98-107) Carbon Dioxide Level 29 MMOL/L (21-32) Anion Gap 5 mmol/L (5-15) Blood Urea Nitrogen 14 mg/dL (7-18) Creatinine 1.0 MG/DL (0.55-1.30) Estimat Glomerular Filtration Rate mL/min (>60) Glucose Level 111 MG/DL (74-106) H Calcium Level 9.0 MG/DL (8.5-10.1) Iron Level 24 ug/dL (50-175) L Total Iron Binding Capacity 213 ug/dL (250-450) L Percent Iron Saturation 11 % (15-50) L Unsaturated Iron Binding 189 ug/dL (112-346) Ferritin 48 NG/ML (8-388) Intake and Output 12/05/18 12/06/18 19:00 07:00 Intake Total 1650 ml 850 ml Output Total 1500 ml 1701 ml Balance 150 ml -851 ml Intake Oral 750 ml 250 ml IV Total 900 ml 600 ml Output Urine Total 900 ml 1000 ml Stool Total 1 ml Other 600 ml 700 ml # Voids 1 # Bowel Movements 2 Objective PHYSICAL EXAMINATION: GENERAL: The patient is awake, alert, responsive, very pleasant, but forgetful. HEAD AND NECK: Pupils are reactive to light. Extraocular movements intact. Neck was supple. No JVD. LUNGS: Good air entry. No wheezing or rales. Left side of the chest has a pacemaker. ABDOMEN: Soft, nondistended, and nontender. Positive bowel sounds. EXTREMITIES: No cyanosis, clubbing, or edema. NEUROLOGIC: PROGRAM REP II through XII grossly intact. Motor is 5/5 in all extremities. Gait was not assessed due to the patient's status. RECTAL/GENITOURINARY: Refused and deferred. Assessment/Plan Assessment/Plan ASSESSMENT: 1. Gastrointestinal bleed. 2. Anemia possible due to acute blood loss. 3. Hypokalemia. 4. Acute urinary tract infection. 5. Moderate left hydronephrosis with hydroureter. 6. Cardiac arrhythmia status post pacemaker. 7. Diabetes type 2. 8. Hypertension. 9. Gastritis 10. hemorrhoids 11. hematuria-Bladder cancer PLAN: 1. Admit the patient to medical floor. 2. We will follow up with the laboratory. 3. Clear liquid diet. 4. Gastrointestinal consultation with Dr. Hernandez. 5. Code status is Full Code at this time. 6. See Urology consultation, Dr. Allen S/P transurethral resection bladder tumor High grade urothelial carcinoma 7. S/P Esophagogastroduodenoscopy and colonoscopy 11/24/18. 8. We will follow up with urine culture and Cardiology consultation with Dr. Nj Valenzuela. 9. Protonix 40 mg BID and carafate 1 gm QID 10 See Oncology consult 11. Will require anterograde stent by interv radiology-see urology note. Jean-Claude Peter MD Dec 06, 2018 19:22
--- NOTE | 2018-12-06 19:28 | NUR ---
HAND-OFF: Report given to DONELL Skelton.
--- NOTE | 2018-12-06 19:45 | NUR ---
NURSE NOTES: Pt is in bed, awake . No acute distress noted. Vitals stable. Room air. D5 1/2 NS running at 75ml/hr.Left nephrostomy tube wes output. Pt is to have antegrade stent placement but unable to reach family to sign consent. Pt is at risk for fall, fall precaution in place. Bed alarm on. Bed locked low in position,side rails up and call light within reach. Pt will be monitored.
[2018-12-06 20:00] VITALS: BP 165/61
--- NOTE | 2018-12-06 20:16 | NUR ---
CASE MANAGEMENT: REVIEW SI: GI BLEED . HYDRONEPHROSIS . HEMATURIA CYSTO TURBT/FULGURATION, RIGHT RETROGRADE PYELOGRAM 11/24 T 98.4 HR 62 RR 17 BP 151/61 SAT 100% ROOM AIR H/H 10.3/30.3 IS: MORPHINE IV Q4HR FLOMAX PO QHS PROSCAR PO QD D5 1/2 NS IVF @75ML/HR MED/SURG STATUS DCP: PATIENT IS FROM HOME
[2018-12-06] MEDS: Tamsulosin 0.4mg cap ORAL SCH (20:58)
[2018-12-06] MEDS: HydrALAZINE 50mg tab ORAL PRN (20:59)
--- NOTE | 2018-12-06 21:09 | NUR ---
NURSE NOTES: BP 165/61; hydralazine 50mg po given. pt will be reassessed.
--- NOTE | 2018-12-06 21:29 | Neurology Progress Note ---
Interim History Interim History ROS Limited/Unobtainable: No Complaints: AMS Events: This visit was performed on December 06, 2018 Interim History Afebrile, no complaints, alert and oriented as per baseline. Antigravity x 4, following commands. No changes in MS or exam. Review of Systems All Systems: reviewed and negative except above Objective Physical Exam Last Vital Signs Date Time Temp Pulse Resp B/P (MAP) Pulse Ox O2 Delivery O2 Flow Rate FiO2 12/06/18 20:59 165/61 12/06/18 20:00 99.1 71 18 100 12/06/18 09:00 Room Air Laboratory Tests Test 12/06/18 05:30 White Blood Count 7.9 K/UL (4.8-10.8) Red Blood Count 3.42 M/UL (4.70-6.10) L Hemoglobin 10.3 G/DL (14.2-18.0) L Hematocrit 30.3 % (42.0-52.0) L Mean Corpuscular Volume 89 FL (80-99) Mean Corpuscular Hemoglobin 30.1 PG (27.0-31.0) Mean Corpuscular Hemoglobin Concent 33.9 G/DL (32.0-36.0) Red Cell Distribution Width 11.0 % (11.6-14.8) L Platelet Count 209 K/UL (150-450) Mean Platelet Volume 6.2 FL (6.5-10.1) L Neutrophils (%) (Auto) 72.9 % (45.0-75.0) Lymphocytes (%) (Auto) 19.6 % (20.0-45.0) L Monocytes (%) (Auto) 6.6 % (1.0-10.0) Eosinophils (%) (Auto) 0.0 % (0.0-3.0) Basophils (%) (Auto) 1.0 % (0.0-2.0) Sodium Level 139 MMOL/L (136-145) Potassium Level 4.2 MMOL/L (3.5-5.1) Chloride Level 105 MMOL/L (98-107) Carbon Dioxide Level 29 MMOL/L (21-32) Anion Gap 5 mmol/L (5-15) Blood Urea Nitrogen 14 mg/dL (7-18) Creatinine 1.0 MG/DL (0.55-1.30) Estimat Glomerular Filtration Rate mL/min (>60) Glucose Level 111 MG/DL (74-106) H Calcium Level 9.0 MG/DL (8.5-10.1) Iron Level 24 ug/dL (50-175) L Total Iron Binding Capacity 213 ug/dL (250-450) L Percent Iron Saturation 11 % (15-50) L Unsaturated Iron Binding 189 ug/dL (112-346) Ferritin 48 NG/ML (8-388) Impression/Recommendations Problems: (1) Altered level of consciousness Assessment & Plan: CT 11/22/18: Chronic and age-related changes is noted. 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 - Unable to obtain secondary to pacemaker Status: stable, unchanged Recommendations PT/OT and Dispo planning Stable for discharge from a neurological perspective. Bailey Appiah N.P. Dec 06, 2018 21:29
--- NOTE | 2018-12-06 22:25 | NUR ---
NURSE NOTES: Received telephone consent from Granddaughter Celestina Braxton for antegrade uretal stent placement. Charge nurse Berenice Neal witnessed and also confirmed the phone consent with patient' granddaughter.
[2018-12-07] VITALS: BP 103/49
--- NOTE | 2018-12-07 00:17 | NUR ---
NURSE NOTES: Pt is currently NPO for uretal stent placement .
[2018-12-07 04:00] VITALS: BP 103/53
--- NOTE | 2018-12-07 06:00 | NUR ---
NURSE NOTES: Pt is currently NPO.
[2018-12-07] MEDS: NovoLOG Insulin Flexpen SUBQ SCH ×4 (06:14→21:36)
--- NOTE | 2018-12-07 06:26 | General Progress Note ---
Assessment/Plan Problem List: (1) Acute metabolic encephalopathy ICD Codes: G93.41 - Metabolic encephalopathy SNOMED: 44054254, 111662220 (2) Hyperthyroidism ICD Codes: E05.90 - Thyrotoxicosis, unspecified without thyrotoxic crisis or storm SNOMED: 93038129 (3) Diabetes mellitus ICD Codes: E11.9 - Type 2 diabetes mellitus without complications SNOMED: 58537977 (4) Bladder neoplasm ICD Codes: D49.4 - Neoplasm of unspecified behavior of bladder SNOMED: 373371314 (5) Hydronephrosis ICD Codes: N13.30 - Unspecified hydronephrosis SNOMED: 16478659 Status: stable, unchanged Assessment/Plan: thyroid function improved on Tapazole TSI pending continue Tapazole 10 mg daily continue Starlix 120 mg ac tid continue NISS ac / hs Subjective Allergies: Coded Allergies: No Known Allergies (Unverified , 04/09/16) All Systems: reviewed and negative except above Subjective events noted Item Value Date Time Bedside Blood Glucose 170 mg/dl H 12/07/18 0614 Bedside Blood Glucose 142 mg/dl H 12/06/18 2106 Bedside Blood Glucose 134 mg/dl H 12/06/18 1819 Bedside Blood Glucose 116 mg/dl 12/06/18 1130 Objective Last 24 Hour Vital Signs Date Time Temp Pulse Resp B/P (MAP) Pulse Ox O2 Delivery O2 Flow Rate FiO2 12/07/18 00:00 98.1 73 18 103/49 (67) 97 12/06/18 21:00 Room Air 12/06/18 20:59 165/61 12/06/18 20:00 99.1 71 18 165/61 (95) 100 12/06/18 18:18 151/61 12/06/18 16:00 98.0 62 17 151/61 (91) 100 12/06/18 12:00 98.4 99 18 130/75 (93) 98 12/06/18 09:00 Room Air 12/06/18 08:16 61 138/68 12/06/18 08:15 138/68 12/06/18 08:00 98.1 97 18 136/72 (93) 99 Intake and Output 12/06/18 12/07/18 18:59 06:59 Intake Total 1400 ml 675 ml Output Total 800 ml Balance 600 ml 675 ml Intake Oral 800 ml IV Total 600 ml 675 ml Output Urine Total 800 ml # Voids 8 # Bowel Movements 2 Height (Feet): 6 Height (Inches): 6.00 Weight (Pounds): 185 General Appearance: no apparent distress Neck: normal alignment Cardiovascular: normal rate Respiratory/Chest: lungs clear Abdomen: normal bowel sounds Edema: no edema noted Arm (L), no edema noted Arm (R), no edema noted Leg (L), no edema noted Leg (R), no edema noted Pedal (L), no edema noted Pedal (R), no edema noted Generalized Objective Current Medications Medications (Trade) Dose Ordered Sig/Levi Route PRN Reason Start Time Stop Time Status Last Admin Dose Admin Acetaminophen (Tylenol) 650 mg Q4H PRN ORAL fever 11/22/18 13:30 12/22/18 13:29 12/07/18 04:32 Al Hydroxide/Mg Hydroxide (Mylanta II) 30 ml Q6H PRN ORAL dyspepsia 11/22/18 13:30 12/22/18 13:29 Amlodipine Besylate (Norvasc) 2.5 mg DAILY ORAL 11/29/18 09:00 12/29/18 08:59 12/06/18 08:16 Dextrose (Dextrose 50%) 25 ml Q30M PRN IV Hypoglycemia 11/22/18 13:30 12/22/18 13:23 11/22/18 17:21 Dextrose (Dextrose 50%) 50 ml Q30M PRN IV hypoglycemia 11/22/18 13:30 12/22/18 13:29 Dextrose/Sodium Chloride 1,000 ml @ 75 mls/hr [id number] IV 11/22/18 13:16 12/22/18 13:15 12/06/18 20:59 Diphenhydramine HCl (Benadryl) 25 mg Q6H PRN ORAL Itching/Pruritis 11/22/18 13:30 12/22/18 13:29 Finasteride (Proscar) 5 mg DAILY ORAL 11/22/18 19:45 12/22/18 19:44 12/06/18 08:15 Hydralazine HCl (Apresoline) 50 mg Q6H PRN ORAL SBP > 160 11/22/18 17:30 12/22/18 17:29 12/06/18 20:59 Insulin Aspart (NovoLOG) BEFORE MEALS AND HS SUBQ 11/22/18 16:30 12/22/18 16:29 12/07/18 06:14 Iopamidol (Isovue-300 100ml) 200 ml NOW PRN INJ Radiology Procedure 12/06/18 08:15 12/09/18 08:13 Irbesartan (Avapro) 150 mg BID ORAL 11/25/18 09:00 12/25/18 08:59 12/06/18 18:18 Methimazole (Tapazole) 10 mg DAILY ORAL 11/29/18 09:00 12/24/18 08:59 12/06/18 08:15 Morphine Sulfate (Morphine Sulfate) 2 mg Q4H PRN IVP Severe Pain (Pain Scale 7-10) 12/01/18 23:15 12/08/18 23:14 12/04/18 17:27 Nateglinide (Starlix) 120 mg TIAC ORAL 11/29/18 11:30 12/24/18 11:29 12/07/18 06:11 Nitroglycerin (Ntg) 0.4 mg Q5M X 3 DOSES PRN SL Prn Chest Pain 11/22/18 13:30 12/22/18 13:29 Ondansetron HCl (Zofran) 4 mg Q6H PRN IVP Nausea & Vomiting 11/22/18 13:30 12/22/18 13:29 Pantoprazole (Protonix) 40 mg DAILY ORAL 12/05/18 09:00 12/24/18 20:59 12/06/18 08:15 Polyethylene Glycol (Miralax) 17 gm HSPRN PRN ORAL Constipation 11/22/18 13:30 12/22/18 13:29 12/04/18 21:38 Tamsulosin HCl (Flomax) 0.4 mg BEDTIME ORAL 11/22/18 21:00 12/22/18 20:59 12/06/18 20:58 Temazepam (Restoril) 15 mg HSPRN PRN ORAL Insomnia 12/05/18 10:00 12/12/18 09:59 12/06/18 20:58 Kashif Adorno MD Dec 07, 2018 06:26
[2018-12-07 07:05] LABS: ANION GAP 7 mmol/L (5-15); BLOOD UREA NITROGEN 15 mg/dL (7-18); CALCIUM 8.6 MG/DL (8.5-10.1); CARBON DIOXIDE 26 MMOL/L (21-32); CHLORIDE 102 MMOL/L (98-107); CREATININE 1.3 MG/DL (0.55-1.30); POTASSIUM 4.1 MMOL/L (3.5-5.1); SODIUM 135 MMOL/L (136-145)
--- NOTE | 2018-12-07 07:10 | NUR ---
HAND-OFF: Report given to Gerald Richardson RN.
[2018-12-07 07:11] LABS: HEMATOCRIT 31.4 % (42.0-52.0); HEMOGLOBIN 10.9 G/DL (14.2-18.0); MEAN CORPUSCULAR VOLUME 88 FL (80-99); PLATELET COUNT 199 K/UL (150-450); RED BLOOD COUNT 3.57 M/UL (4.70-6.10); RED CELL DISTRIBUTION WIDTH 10.8 % (11.6-14.8)
--- NOTE | 2018-12-07 07:50 | Urology Progress Note ---
Assessment/Plan Status: stable, unchanged Assessment/Plan: 1. Left hydronephrosis. 2. Hematuria. 3. Pyuria. 4. Proteinuria. 5. Benign prostatic hypertrophy. 6. Incontinence. 7. Neurogenic bladder. 8. Cystitis. 9. Bladder cancer. 10. POD # 13, cysto/TURBT monitor clinically hernandez out and voiding left hydro secondary to bladder tumor left nephrostomy placed 11/26, keep off suction hand irrigate PRN unable to place antegrade ureteral stent flomax and proscar monitor for voiding and reinsert hernandez PRN s/p diflucan med onc eval IR to reattempt antegrade stent, hopefully today NPO Subjective Allergies: Coded Allergies: No Known Allergies (Unverified , 04/09/16) Subjective all noted, feels fair, voiding, IR procedure not done yest secondary to lack of consent Objective Last 24 Hour Vital Signs Date Time Temp Pulse Resp B/P (MAP) Pulse Ox O2 Delivery O2 Flow Rate FiO2 12/07/18 04:00 98.1 67 18 103/53 (70) 100 12/07/18 00:00 98.1 73 18 103/49 (67) 97 12/06/18 21:00 Room Air 12/06/18 20:59 165/61 12/06/18 20:00 99.1 71 18 165/61 (95) 100 12/06/18 18:18 151/61 12/06/18 16:00 98.0 62 17 151/61 (91) 100 12/06/18 12:00 98.4 99 18 130/75 (93) 98 12/06/18 09:00 Room Air 12/06/18 08:16 61 138/68 12/06/18 08:15 138/68 12/06/18 08:00 98.1 97 18 136/72 (93) 99 Intake and Output 12/06/18 12/07/18 18:59 06:59 Intake Total 1400 ml 975 ml Output Total 800 ml 950 ml Balance 600 ml 25 ml Intake Oral 800 ml IV Total 600 ml 975 ml Output Urine Total 800 ml 950 ml # Voids 8 # Bowel Movements 2 Microbiology Date/Time Source Procedure Growth Status 11/22/18 12:20 Nasal Nares MRSA Culture - Final NO METHICILLIN RESISTANT STAPH AUREUS... Complete 11/22/18 11:15 Urine,Clean Catch Urine Culture - Final YEAST Complete 11/22/18 12:20 Rectal Mucosa VRE Culture - Final NO VANCOMYCIN RESISTANT ENTEROCOCCUS ... Complete 11/22/18 12:20 Rectal Mucosa - Final NO CARBAPENEM-RESISTANT ENTEROBACTERI... Complete Current Medications Medications (Trade) Dose Ordered Sig/Levi Route PRN Reason Start Time Stop Time Status Last Admin Dose Admin Acetaminophen (Tylenol) 650 mg Q4H PRN ORAL fever 11/22/18 13:30 12/22/18 13:29 12/07/18 04:32 Al Hydroxide/Mg Hydroxide (Mylanta II) 30 ml Q6H PRN ORAL dyspepsia 11/22/18 13:30 12/22/18 13:29 Amlodipine Besylate (Norvasc) 2.5 mg DAILY ORAL 11/29/18 09:00 12/29/18 08:59 12/06/18 08:16 Dextrose (Dextrose 50%) 25 ml Q30M PRN IV Hypoglycemia 11/22/18 13:30 12/22/18 13:23 11/22/18 17:21 Dextrose (Dextrose 50%) 50 ml Q30M PRN IV hypoglycemia 11/22/18 13:30 12/22/18 13:29 Dextrose/Sodium Chloride 1,000 ml @ 75 mls/hr [id number] IV 11/22/18 13:16 12/22/18 13:15 12/06/18 20:59 Diphenhydramine HCl (Benadryl) 25 mg Q6H PRN ORAL Itching/Pruritis 11/22/18 13:30 12/22/18 13:29 Finasteride (Proscar) 5 mg DAILY ORAL 11/22/18 19:45 12/22/18 19:44 12/06/18 08:15 Hydralazine HCl (Apresoline) 50 mg Q6H PRN ORAL SBP > 160 11/22/18 17:30 12/22/18 17:29 12/06/18 20:59 Insulin Aspart (NovoLOG) BEFORE MEALS AND HS SUBQ 11/22/18 16:30 12/22/18 16:29 12/07/18 06:14 Iopamidol (Isovue-300 100ml) 200 ml NOW PRN INJ Radiology Procedure 12/06/18 08:15 12/09/18 08:13 Irbesartan (Avapro) 150 mg BID ORAL 11/25/18 09:00 12/25/18 08:59 12/06/18 18:18 Methimazole (Tapazole) 10 mg DAILY ORAL 11/29/18 09:00 12/24/18 08:59 12/06/18 08:15 Morphine Sulfate (Morphine Sulfate) 2 mg Q4H PRN IVP Severe Pain (Pain Scale 7-10) 12/01/18 23:15 12/08/18 23:14 12/04/18 17:27 Nateglinide (Starlix) 120 mg TIAC ORAL 11/29/18 11:30 12/24/18 11:29 12/07/18 06:11 Nitroglycerin (Ntg) 0.4 mg Q5M X 3 DOSES PRN SL Prn Chest Pain 11/22/18 13:30 12/22/18 13:29 Ondansetron HCl (Zofran) 4 mg Q6H PRN IVP Nausea & Vomiting 11/22/18 13:30 12/22/18 13:29 Pantoprazole (Protonix) 40 mg DAILY ORAL 12/05/18 09:00 12/24/18 20:59 12/06/18 08:15 Polyethylene Glycol (Miralax) 17 gm HSPRN PRN ORAL Constipation 11/22/18 13:30 12/22/18 13:29 12/04/18 21:38 Tamsulosin HCl (Flomax) 0.4 mg BEDTIME ORAL 11/22/18 21:00 12/22/18 20:59 12/06/18 20:58 Temazepam (Restoril) 15 mg HSPRN PRN ORAL Insomnia 12/05/18 10:00 12/12/18 09:59 12/06/18 20:58 Laboratory Tests 12/07/18 06:10: White Blood Count 13.0#H, Red Blood Count 3.57L, Hemoglobin 10.9L, Hematocrit 31.4L, Mean Corpuscular Volume 88, Mean Corpuscular Hemoglobin 30.6, Mean Corpuscular Hemoglobin Concent 34.8, Red Cell Distribution Width 10.8L, Platelet Count 199, Mean Platelet Volume 5.4L, Neutrophils (%) (Auto) , Lymphocytes (%) (Auto) , Monocytes (%) (Auto) , Eosinophils (%) (Auto) , Basophils (%) (Auto) , Neutrophils % (Manual) [Pending], Lymphocytes % (Manual) [Pending], Platelet Estimate [Pending], Platelet Morphology [Pending], Sodium Level 135L, Potassium Level 4.1, Chloride Level 102, Carbon Dioxide Level 26, Anion Gap 7, Blood Urea Nitrogen 15, Creatinine 1.3, Estimat Glomerular Filtration Rate , Glucose Level 164H, Calcium Level 8.6 Height (Feet): 6 Height (Inches): 6.00 Weight (Pounds): 185 Objective exam stable left nephrostomy output clearing final path noted Macho Allen MD Dec 07, 2018 07:50
[2018-12-07 08:00] VITALS: BP 102/45
--- NOTE | 2018-12-07 08:30 | NUR ---
NURSE NOTES: ED, TECH, MADE RN AWARE PT'S NEPHROTOMOGRAPHY RESCHEDULED FOR TOMORROW. DR MELCHOR MADE AWARE AND MESSAGE LEFT FOR DR IVEY.
[2018-12-07] MEDS: Irbesartan 150mg tablet ORAL SCH ×2 (08:33→17:07)
--- NOTE | 2018-12-07 10:40 | GI Progress Note ---
Assessment/Plan Problems: (1) Lower GI bleed ICD Codes: K92.2 - Gastrointestinal hemorrhage, unspecified SNOMED: 96484075 (2) Anemia ICD Codes: D64.9 - Anemia, unspecified SNOMED: 687170311 (3) Bleeding hemorrhoid ICD Codes: K64.9 - Unspecified hemorrhoids SNOMED: 99177439 (4) Alzheimer's dementia ICD Codes: G30.9 - Alzheimer's disease, unspecified; F02.80 - Dementia in other diseases classified elsewhere without behavioral disturbance SNOMED: 41548197 (5) Diabetes mellitus ICD Codes: E11.9 - Type 2 diabetes mellitus without complications SNOMED: 77638500 Status: unchanged Status Narrative Discussed with Dr. Hernandez Assessment/Plan SUMMARY OF FINDINGS: 1. Gastritis and possibly gastric ulceration, status post biopsy. 2. One colonic polyp removed, see above for details. 3. Internal hemorrhoids. Occult blood stool negative Patient passed video swallow RECOMMENDATIONS: Follow-up urology recommendations Follow up pathology. >> H. pylori negative Resume diet. monitor H&H, prn transfusions bowel regime ppi fu labs The patient was seen and examined at bedside and all new and available data was reviewed in the patients chart. I agree with the above findings, impression and plan. (Patient seen earlier today. Signature stamp does not reflect patient encounter time.). - Prince Hernandez MD Subjective Subjective Limited Objective Last 24 Hour Vital Signs Date Time Temp Pulse Resp B/P (MAP) Pulse Ox O2 Delivery O2 Flow Rate FiO2 12/07/18 08:33 61 102/45 12/07/18 08:33 102/45 12/07/18 08:00 97.3 61 16 102/45 (64) 99 12/07/18 04:00 98.1 67 18 103/53 (70) 100 12/07/18 00:00 98.1 73 18 103/49 (67) 97 12/06/18 21:00 Room Air 12/06/18 20:59 165/61 12/06/18 20:00 99.1 71 18 165/61 (95) 100 12/06/18 18:18 151/61 12/06/18 16:00 98.0 62 17 151/61 (91) 100 12/06/18 12:00 98.4 99 18 130/75 (93) 98 Intake and Output 12/06/18 12/07/18 18:59 06:59 Intake Total 1400 ml 1200 ml Output Total 800 ml 1250 ml Balance 600 ml -50 ml Intake Oral 800 ml IV Total 600 ml 1200 ml Output Urine Total 800 ml 950 ml Other 300 ml # Voids 8 # Bowel Movements 2 Laboratory Tests Test 12/07/18 06:10 White Blood Count 13.0 K/UL (4.8-10.8) #H Red Blood Count 3.57 M/UL (4.70-6.10) L Hemoglobin 10.9 G/DL (14.2-18.0) L Hematocrit 31.4 % (42.0-52.0) L Mean Corpuscular Volume 88 FL (80-99) Mean Corpuscular Hemoglobin 30.6 PG (27.0-31.0) Mean Corpuscular Hemoglobin Concent 34.8 G/DL (32.0-36.0) Red Cell Distribution Width 10.8 % (11.6-14.8) L Platelet Count 199 K/UL (150-450) Mean Platelet Volume 5.4 FL (6.5-10.1) L Neutrophils (%) (Auto) % (45.0-75.0) Lymphocytes (%) (Auto) % (20.0-45.0) Monocytes (%) (Auto) % (1.0-10.0) Eosinophils (%) (Auto) % (0.0-3.0) Basophils (%) (Auto) % (0.0-2.0) Neutrophils % (Manual) Pending Lymphocytes % (Manual) Pending Platelet Estimate Pending Platelet Morphology Pending Sodium Level 135 MMOL/L (136-145) L Potassium Level 4.1 MMOL/L (3.5-5.1) Chloride Level 102 MMOL/L (98-107) Carbon Dioxide Level 26 MMOL/L (21-32) Anion Gap 7 mmol/L (5-15) Blood Urea Nitrogen 15 mg/dL (7-18) Creatinine 1.3 MG/DL (0.55-1.30) Estimat Glomerular Filtration Rate mL/min (>60) Glucose Level 164 MG/DL (74-106) H Calcium Level 8.6 MG/DL (8.5-10.1) Height (Feet): 6 Height (Inches): 6.00 Weight (Pounds): 185 General Appearance: WD/WN, no apparent distress, alert, thin Cardiovascular: normal rate Respiratory/Chest: normal breath sounds, no respiratory distress Abdominal Exam: normal bowel sounds, non tender, soft Extremities: non-tender Osiel Vega NP Dec 07, 2018 10:40
[2018-12-07] MEDS: D5 1/2NS 1,000 ML IV SCH (11:41)
[2018-12-07 12:00] VITALS: BP 118/58
--- NOTE | 2018-12-07 12:50 | Pulmonology Progress Note ---
Assessment/Plan Problems: (1) Lower GI bleed (2) Hydronephrosis (3) Anemia (4) Bladder neoplasm (5) Chronic cerebrovascular accident (CVA) (6) Diabetes mellitus (7) Alzheimer's dementia (8) HTN (hypertension) Assessment/Plan talked to radiologist they will try to put the urethral stent again, scheduled for tomorrow no new complains nephrostomy in place. tolerated cystoscopy follow up with pathology, still not available. looks comfortable sliding scale monitor bp f/u urology recommendations prbc prn check H/H dvt prophylaxis. Subjective ROS Limited/Unobtainable: Yes Allergies: Coded Allergies: No Known Allergies (Unverified , 04/09/16) Objective Last 24 Hour Vital Signs Date Time Temp Pulse Resp B/P (MAP) Pulse Ox O2 Delivery O2 Flow Rate FiO2 12/07/18 12:00 97.8 61 16 118/58 (78) 98 12/07/18 09:00 Room Air 12/07/18 08:33 61 102/45 12/07/18 08:33 102/45 12/07/18 08:00 97.3 61 16 102/45 (64) 99 12/07/18 04:00 98.1 67 18 103/53 (70) 100 12/07/18 00:00 98.1 73 18 103/49 (67) 97 12/06/18 21:00 Room Air 12/06/18 20:59 165/61 12/06/18 20:00 99.1 71 18 165/61 (95) 100 12/06/18 18:18 151/61 12/06/18 16:00 98.0 62 17 151/61 (91) 100 Intake and Output 12/06/18 12/07/18 18:59 06:59 Intake Total 1400 ml 1200 ml Output Total 800 ml 1250 ml Balance 600 ml -50 ml Intake Oral 800 ml IV Total 600 ml 1200 ml Output Urine Total 800 ml 950 ml Other 300 ml # Voids 8 # Bowel Movements 2 Objective nephrostomy still draining blood tinged urine, but less than previous day General Appearance: WD/WN HEENT: normocephalic, atraumatic Cardiovascular: normal peripheral pulses, normal rate Abdomen: normal bowel sounds, soft, non tender Genitourinary: normal external genitalia Extremities: no clubbing Skin: no rash Laboratory Tests 12/07/18 06:10: White Blood Count 13.0#H, Red Blood Count 3.57L, Hemoglobin 10.9L, Hematocrit 31.4L, Mean Corpuscular Volume 88, Mean Corpuscular Hemoglobin 30.6, Mean Corpuscular Hemoglobin Concent 34.8, Red Cell Distribution Width 10.8L, Platelet Count 199, Mean Platelet Volume 5.4L, Neutrophils (%) (Auto) , Lymphocytes (%) (Auto) , Monocytes (%) (Auto) , Eosinophils (%) (Auto) , Basophils (%) (Auto) , Differential Total Cells Counted 100, Neutrophils % ( Manual) 76H, Lymphocytes % (Manual) 18L, Monocytes % (Manual) 6, Eosinophils % ( Manual) 0, Basophils % (Manual) 0, Band Neutrophils 0, Platelet Estimate Adequate, Platelet Morphology Normal, Hypochromasia 1+, Anisocytosis 1+, Sodium Level 135L, Potassium Level 4.1, Chloride Level 102, Carbon Dioxide Level 26, Anion Gap 7, Blood Urea Nitrogen 15, Creatinine 1.3, Estimat Glomerular Filtration Rate , Glucose Level 164H, Calcium Level 8.6 Current Medications Medications (Trade) Dose Ordered Sig/Levi Route PRN Reason Start Time Stop Time Status Last Admin Dose Admin Acetaminophen (Tylenol) 650 mg Q4H PRN ORAL fever 11/22/18 13:30 12/22/18 13:29 12/07/18 04:32 Al Hydroxide/Mg Hydroxide (Mylanta II) 30 ml Q6H PRN ORAL dyspepsia 11/22/18 13:30 12/22/18 13:29 Amlodipine Besylate (Norvasc) 2.5 mg DAILY ORAL 11/29/18 09:00 12/29/18 08:59 12/06/18 08:16 Dextrose (Dextrose 50%) 25 ml Q30M PRN IV Hypoglycemia 11/22/18 13:30 12/22/18 13:23 11/22/18 17:21 Dextrose (Dextrose 50%) 50 ml Q30M PRN IV hypoglycemia 11/22/18 13:30 12/22/18 13:29 Dextrose/Sodium Chloride 1,000 ml @ 75 mls/hr [id number] IV 11/22/18 13:16 12/22/18 13:15 12/07/18 11:41 Diphenhydramine HCl (Benadryl) 25 mg Q6H PRN ORAL Itching/Pruritis 11/22/18 13:30 12/22/18 13:29 Finasteride (Proscar) 5 mg DAILY ORAL 11/22/18 19:45 12/22/18 19:44 12/07/18 08:33 Hydralazine HCl (Apresoline) 50 mg Q6H PRN ORAL SBP > 160 11/22/18 17:30 12/22/18 17:29 12/06/18 20:59 Insulin Aspart (NovoLOG) BEFORE MEALS AND HS SUBQ 11/22/18 16:30 12/22/18 16:29 12/07/18 11:41 Iopamidol (Isovue-300 100ml) 200 ml NOW PRN INJ Radiology Procedure 12/06/18 08:15 12/09/18 08:13 Irbesartan (Avapro) 150 mg BID ORAL 11/25/18 09:00 12/25/18 08:59 12/06/18 18:18 Methimazole (Tapazole) 10 mg DAILY ORAL 11/29/18 09:00 12/24/18 08:59 12/07/18 08:33 Morphine Sulfate (Morphine Sulfate) 2 mg Q4H PRN IVP Severe Pain (Pain Scale 7-10) 12/01/18 23:15 12/08/18 23:14 12/04/18 17:27 Nateglinide (Starlix) 120 mg TIAC ORAL 11/29/18 11:30 12/24/18 11:29 12/07/18 11:38 Nitroglycerin (Ntg) 0.4 mg Q5M X 3 DOSES PRN SL Prn Chest Pain 11/22/18 13:30 12/22/18 13:29 Ondansetron HCl (Zofran) 4 mg Q6H PRN IVP Nausea & Vomiting 11/22/18 13:30 12/22/18 13:29 Pantoprazole (Protonix) 40 mg DAILY ORAL 12/05/18 09:00 12/24/18 20:59 12/07/18 08:33 Polyethylene Glycol (Miralax) 17 gm HSPRN PRN ORAL Constipation 11/22/18 13:30 12/22/18 13:29 12/04/18 21:38 Tamsulosin HCl (Flomax) 0.4 mg BEDTIME ORAL 11/22/18 21:00 12/22/18 20:59 12/06/18 20:58 Temazepam (Restoril) 15 mg HSPRN PRN ORAL Insomnia 12/05/18 10:00 12/12/18 09:59 12/06/18 20:58 Og Hinkle MD Dec 07, 2018 12:50
[2018-12-07] MEDS ORDERED: D5 1/2NS 1000ml IV ONE ×2 (14:57)
[2018-12-07 16:00] VITALS: BP 107/46
--- NOTE | 2018-12-07 17:57 | General Progress Note ---
Assessment/Plan Status: unchanged Assessment/Plan: Assessment and Recs: # Bladder cancer extensive stage, iintially with L hydronephrosis/L Hydroureter 2ry to extensive bladder tumor, that is extensive stage. 11/25 SP Cystoscopy, urethral calibration, transurethral resection of extensive bladder tumor with fulguration, and right retrograde pyelogram. Findings: The patient had what appeared to be a large bladder tumor that involved most of the left side of the bladder extending posteriorly and completely obliterating the left ureteral orifice. I was unable to place a stent on the left side. --> CT abd/p: Limited assessment of the GI tract, due to lack of enteric contrast administration. Moderate left hydronephrosis and hydroureter. Hydroureter extends to the bladder, where there is asymmetric posterolateral wall thickening raises concern for neoplasm. Further evaluation with cystoscopy should be considered. There is also generalized wall thickening, possibly on the basis of cystitis or chronic bladder outlet obstruction. No definite findings to suggest etiology of stated clinical history of GI bleed. Cholelithiasis. Basilar pulmonary atelectasis and equivocal slight interstitial congestion. L1 vertebral body compression fracture deformity, age indeterminate. --> discussed case with pathologist, obtain pdl1 testing of tumor --> appreciate urology recs --> per ir may attempt placement of urinary stent # Anemia due to lower GI bleed --> appreciate gi recs, reviewed endoscopy report # Anemia due iron deficiency due to hemorrhoi bleed --> iv iron started # Hydronephrosis # Chronic cerebrovascular accident (CVA) # Diabetes mellitus # Alzheimer's dementia # HTN (hypertension) The timing of this note does not necessarily reflect the time of the patient was seen. Greatly appreciate consultation! Subjective Constitutional: Denies: no symptoms, chills, diaphoresis, fever, malaise, weakness, other HEENT: Denies: no symptoms, eye pain, blurred vision, tearing, double vision, ear pain, ear discharge, nose pain, nose congestion, throat pain, throat swelling, mouth pain, mouth swelling, other Cardiovascular: Denies: no symptoms, chest pain, edema, irregular heart rate, lightheadedness, palpitations, syncope, other Respiratory: Denies: no symptoms, cough, orthopnea, shortness of breath, SOB with excertion, SOB at rest, sputum, stridor, wheezing, other Gastrointestinal/Abdominal: Denies: no symptoms, abdomen distended, abdominal pain, black stools, tarry stools, blood in stool, constipated, diarrhea, difficulty swallowing, nausea, poor appetite, poor fluid intake, rectal bleeding , vomiting, other Endocrine: Denies: no symptoms, excessive sweating, flushing, intolerance to cold, intolerance to heat, increased hunger, increased thirst, increased urine, unexplained weight gain, unexplained weight loss, other Allergies: Coded Allergies: No Known Allergies (Unverified , 04/09/16) Subjective 12/07: no events, bed-bound, has poor performance status, feeling weak, unable to get out of bed Objective Last 24 Hour Vital Signs Date Time Temp Pulse Resp B/P (MAP) Pulse Ox O2 Delivery O2 Flow Rate FiO2 12/07/18 17:07 107/46 12/07/18 16:00 98.6 64 16 107/46 (66) 100 12/07/18 12:00 97.8 61 16 118/58 (78) 98 12/07/18 09:00 Room Air 12/07/18 08:33 61 102/45 12/07/18 08:33 102/45 12/07/18 08:00 97.3 61 16 102/45 (64) 99 12/07/18 04:00 98.1 67 18 103/53 (70) 100 12/07/18 00:00 98.1 73 18 103/49 (67) 97 12/06/18 21:00 Room Air 12/06/18 20:59 165/61 12/06/18 20:00 99.1 71 18 165/61 (95) 100 12/06/18 18:18 151/61 Intake and Output 12/06/18 12/07/18 19:00 07:00 Intake Total 1475 ml 1200 ml Output Total 800 ml 1250 ml Balance 675 ml -50 ml Intake Oral 800 ml IV Total 675 ml 1200 ml Output Urine Total 800 ml 950 ml Other 300 ml # Voids 8 # Bowel Movements 2 Laboratory Tests 12/07/18 06:10: White Blood Count 13.0#H, Red Blood Count 3.57L, Hemoglobin 10.9L, Hematocrit 31.4L, Mean Corpuscular Volume 88, Mean Corpuscular Hemoglobin 30.6, Mean Corpuscular Hemoglobin Concent 34.8, Red Cell Distribution Width 10.8L, Platelet Count 199, Mean Platelet Volume 5.4L, Neutrophils (%) (Auto) , Lymphocytes (%) (Auto) , Monocytes (%) (Auto) , Eosinophils (%) (Auto) , Basophils (%) (Auto) , Differential Total Cells Counted 100, Neutrophils % ( Manual) 76H, Lymphocytes % (Manual) 18L, Monocytes % (Manual) 6, Eosinophils % ( Manual) 0, Basophils % (Manual) 0, Band Neutrophils 0, Platelet Estimate Adequate, Platelet Morphology Normal, Hypochromasia 1+, Anisocytosis 1+, Sodium Level 135L, Potassium Level 4.1, Chloride Level 102, Carbon Dioxide Level 26, Anion Gap 7, Blood Urea Nitrogen 15, Creatinine 1.3, Estimat Glomerular Filtration Rate , Glucose Level 164H, Calcium Level 8.6 Height (Feet): 6 Height (Inches): 6.00 Weight (Pounds): 185 Objective General Appearance: well appearing, no apparent distress, alert Head: normocephalic EENT: PERRL/EOMI, normal ENT inspection Neck: supple Respiratory: normal breath sounds, no respiratory distress Cardiovascular: normal rate Gastrointestinal: normal inspection, non tender, soft, normal bowel sounds, non -distended Genitourinary: deferred Musculoskeletal: normal inspection, back normal, other - upper extremity tremors ++ nephrostomy tube Neurologic: alert, responsive Psychiatric: judgement/insight normal Skin: normal inspection, normal color, no rash, warm/dry, palpation normal, well hydrated Lymphatic: normal inspection, no adenopathy Pierce Mcguire MD Dec 07, 2018 17:57
--- NOTE | 2018-12-07 17:57 | Internal Med Progress Note ---
Subjective Date of Service: Dec 07, 2018 Physician Name Jean-Claude Peter Attending Physician Jaziel Lowe MD Current Medications Medications (Trade) Dose Ordered Sig/Levi Route PRN Reason Start Time Stop Time Status Last Admin Dose Admin Acetaminophen (Tylenol) 650 mg Q4H PRN ORAL fever 11/22/18 13:30 12/22/18 13:29 12/07/18 04:32 Al Hydroxide/Mg Hydroxide (Mylanta II) 30 ml Q6H PRN ORAL dyspepsia 11/22/18 13:30 12/22/18 13:29 Amlodipine Besylate (Norvasc) 2.5 mg DAILY ORAL 11/29/18 09:00 12/29/18 08:59 12/06/18 08:16 Dextrose (Dextrose 50%) 25 ml Q30M PRN IV Hypoglycemia 11/22/18 13:30 12/22/18 13:23 11/22/18 17:21 Dextrose (Dextrose 50%) 50 ml Q30M PRN IV hypoglycemia 11/22/18 13:30 12/22/18 13:29 Dextrose/Sodium Chloride 1,000 ml @ 75 mls/hr [id number] IV 11/22/18 13:16 12/22/18 13:15 12/07/18 11:41 Diphenhydramine HCl (Benadryl) 25 mg Q6H PRN ORAL Itching/Pruritis 11/22/18 13:30 12/22/18 13:29 Finasteride (Proscar) 5 mg DAILY ORAL 11/22/18 19:45 12/22/18 19:44 12/07/18 08:33 Hydralazine HCl (Apresoline) 50 mg Q6H PRN ORAL SBP > 160 11/22/18 17:30 12/22/18 17:29 12/06/18 20:59 Insulin Aspart (NovoLOG) BEFORE MEALS AND HS SUBQ 11/22/18 16:30 12/22/18 16:29 12/07/18 17:07 Iopamidol (Isovue-300 100ml) 200 ml NOW PRN INJ Radiology Procedure 12/06/18 08:15 12/09/18 08:13 Irbesartan (Avapro) 150 mg BID ORAL 11/25/18 09:00 12/25/18 08:59 12/06/18 18:18 Methimazole (Tapazole) 10 mg DAILY ORAL 11/29/18 09:00 12/24/18 08:59 12/07/18 08:33 Morphine Sulfate (Morphine Sulfate) 2 mg Q4H PRN IVP Severe Pain (Pain Scale 7-10) 12/01/18 23:15 12/08/18 23:14 12/04/18 17:27 Nateglinide (Starlix) 120 mg TIAC ORAL 11/29/18 11:30 12/24/18 11:29 12/07/18 17:05 Nitroglycerin (Ntg) 0.4 mg Q5M X 3 DOSES PRN SL Prn Chest Pain 11/22/18 13:30 12/22/18 13:29 Ondansetron HCl (Zofran) 4 mg Q6H PRN IVP Nausea & Vomiting 11/22/18 13:30 12/22/18 13:29 Pantoprazole (Protonix) 40 mg DAILY ORAL 12/05/18 09:00 12/24/18 20:59 12/07/18 08:33 Polyethylene Glycol (Miralax) 17 gm HSPRN PRN ORAL Constipation 11/22/18 13:30 12/22/18 13:29 12/04/18 21:38 Tamsulosin HCl (Flomax) 0.4 mg BEDTIME ORAL 11/22/18 21:00 12/22/18 20:59 12/06/18 20:58 Temazepam (Restoril) 15 mg HSPRN PRN ORAL Insomnia 12/05/18 10:00 12/12/18 09:59 12/06/18 20:58 Allergies: Coded Allergies: No Known Allergies (Unverified , 04/09/16) ROS Limited/Unobtainable: No Constitutional: Reports: no symptoms HEENT: Reports: no symptoms Cardiovascular: Reports: no symptoms Respiratory: Reports: no symptoms Gastrointestinal/Abdominal: Reports: no symptoms Genitourinary: Reports: no symptoms 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: Reports: no symptoms Subjective 83 YO M admitted with gastrointestinal hemorrhage. S/P endoscopy and colonoscopy 11/24/18. S/P transurethral bladder tumor resection 11/24/18. S/P left nephrostomy 11/26/18. Cover for Int Uriel-Dr Lowe Objective Last Vital Signs Date Time Temp Pulse Resp B/P (MAP) Pulse Ox O2 Delivery O2 Flow Rate FiO2 12/07/18 17:07 107/46 12/07/18 16:00 98.6 64 16 100 12/07/18 09:00 Room Air Laboratory Tests Test 12/07/18 06:10 White Blood Count 13.0 K/UL (4.8-10.8) #H Red Blood Count 3.57 M/UL (4.70-6.10) L Hemoglobin 10.9 G/DL (14.2-18.0) L Hematocrit 31.4 % (42.0-52.0) L Mean Corpuscular Volume 88 FL (80-99) Mean Corpuscular Hemoglobin 30.6 PG (27.0-31.0) Mean Corpuscular Hemoglobin Concent 34.8 G/DL (32.0-36.0) Red Cell Distribution Width 10.8 % (11.6-14.8) L Platelet Count 199 K/UL (150-450) Mean Platelet Volume 5.4 FL (6.5-10.1) L Neutrophils (%) (Auto) % (45.0-75.0) Lymphocytes (%) (Auto) % (20.0-45.0) Monocytes (%) (Auto) % (1.0-10.0) Eosinophils (%) (Auto) % (0.0-3.0) Basophils (%) (Auto) % (0.0-2.0) Differential Total Cells Counted 100 Neutrophils % (Manual) 76 % (45-75) H Lymphocytes % (Manual) 18 % (20-45) L Monocytes % (Manual) 6 % (1-10) Eosinophils % (Manual) 0 % (0-3) Basophils % (Manual) 0 % (0-2) Band Neutrophils 0 % (0-8) Platelet Estimate Adequate Platelet Morphology Normal Hypochromasia 1+ Anisocytosis 1+ Sodium Level 135 MMOL/L (136-145) L Potassium Level 4.1 MMOL/L (3.5-5.1) Chloride Level 102 MMOL/L (98-107) Carbon Dioxide Level 26 MMOL/L (21-32) Anion Gap 7 mmol/L (5-15) Blood Urea Nitrogen 15 mg/dL (7-18) Creatinine 1.3 MG/DL (0.55-1.30) Estimat Glomerular Filtration Rate mL/min (>60) Glucose Level 164 MG/DL (74-106) H Calcium Level 8.6 MG/DL (8.5-10.1) Intake and Output 12/06/18 12/07/18 19:00 07:00 Intake Total 1475 ml 1200 ml Output Total 800 ml 1250 ml Balance 675 ml -50 ml Intake Oral 800 ml IV Total 675 ml 1200 ml Output Urine Total 800 ml 950 ml Other 300 ml # Voids 8 # Bowel Movements 2 Objective PHYSICAL EXAMINATION: GENERAL: The patient is awake, alert, responsive, very pleasant, but forgetful. HEAD AND NECK: Pupils are reactive to light. Extraocular movements intact. Neck was supple. No JVD. LUNGS: Good air entry. No wheezing or rales. Left side of the chest has a pacemaker. ABDOMEN: Soft, nondistended, and nontender. Positive bowel sounds. EXTREMITIES: No cyanosis, clubbing, or edema. NEUROLOGIC: RESIN COATER II through XII grossly intact. Motor is 5/5 in all extremities. Gait was not assessed due to the patient's status. RECTAL/GENITOURINARY: Refused and deferred. Assessment/Plan Assessment/Plan ASSESSMENT: 1. Gastrointestinal bleed. 2. Anemia possible due to acute blood loss. 3. Hypokalemia. 4. Acute urinary tract infection. 5. Moderate left hydronephrosis with hydroureter. 6. Cardiac arrhythmia status post pacemaker. 7. Diabetes type 2. 8. Hypertension. 9. Gastritis 10. hemorrhoids 11. hematuria-Bladder cancer PLAN: 1. Admit the patient to medical floor. 2. We will follow up with the laboratory. 3. Clear liquid diet. 4. Gastrointestinal consultation with Dr. Hernandez. 5. Code status is Full Code at this time. 6. See Urology consultation, Dr. Allen S/P transurethral resection bladder tumor High grade urothelial carcinoma 7. S/P Esophagogastroduodenoscopy and colonoscopy 11/24/18. 8. We will follow up with urine culture and Cardiology consultation with Dr. Nj Valenzuela. 9. Protonix 40 mg BID and carafate 1 gm QID 10 See Oncology consult 11. Will require anterograde stent by interv radiology-see urology note. 12. Discharge planning Jean-Claude Peter MD Dec 07, 2018 17:57
--- NOTE | 2018-12-07 18:13 | Infectious Diseases Prog Note ---
Assessment/Plan Assessment/Plan Assessment: Hematochezia -11/24 SP EGD/Colonoscopy: gastritis, hemorrhoids L hydronephrosis/L Hydroureter 2ry to extensive bladder tumor -11/25 SP Cystoscopy, urethral calibration, transurethral resection of extensive bladder tumor with fulguration, and right retrograde pyelogram. -Findings: The patient had what appeared to be a large bladder tumor that involved most of the left side of the bladder extending posteriorly and completely obliterating the left ureteral orifice. I was unable to place a stent on the left side. - -CT abd/p: Limited assessment of the GI tract, due to lack of enteric contrast administration. Moderate left hydronephrosis and hydroureter. Hydroureter extends to the bladder, where there is asymmetric posterolateral wall thickening raises concern for neoplasm. Further evaluation with cystoscopy should be considered. There is also generalized wall thickening, possibly on the basis of cystitis or chronic bladder outlet obstruction. No definite findings to suggest etiology of stated clinical history of GI bleed. Cholelithiasis. Basilar pulmonary atelectasis and equivocal slight interstitial congestion. L1 vertebral body compression fracture deformity, age indeterminate. Consider MRI for further evaluation if this is clinically relevant Afebrile leukocytosis mild -CXR: No acute process Pyuria Funguria -u/a wbc 10-15, nit +, leuk est +3; ucx <10 yeast Encephalopathy -Head CT: Chronic and age-related changes is noted. Negative for acute intracranial bleed or mass effect. 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 Dementia HTN BPH urinary incontinence AV dissociation w/ conduction s/p PPM metabolic encephalopathy UTI seizure disorders Plan: - Monitor off abx - 11/27/18 SP Ceftriaxone #5/5 (will continue post-urologic procedure) and PO Fluconazole #3/3 -Monitor CBC/CMP, in AM -GI, Uro f/u -aspiration precautions Subjective Constitutional: Denies: no symptoms, fever, chills, fatigue, anorexia, drenching sweats, other Allergies: Coded Allergies: No Known Allergies (Unverified , 04/09/16) Objective Vital Signs Last 24 Hour Vital Signs Date Time Temp Pulse Resp B/P (MAP) Pulse Ox O2 Delivery O2 Flow Rate FiO2 12/07/18 17:07 107/46 12/07/18 16:00 98.6 64 16 107/46 (66) 100 12/07/18 12:00 97.8 61 16 118/58 (78) 98 12/07/18 09:00 Room Air 12/07/18 08:33 61 102/45 12/07/18 08:33 102/45 12/07/18 08:00 97.3 61 16 102/45 (64) 99 12/07/18 04:00 98.1 67 18 103/53 (70) 100 12/07/18 00:00 98.1 73 18 103/49 (67) 97 12/06/18 21:00 Room Air 12/06/18 20:59 165/61 12/06/18 20:00 99.1 71 18 165/61 (95) 100 12/06/18 18:18 151/61 Height (Feet): 6 Height (Inches): 6.00 Weight (Pounds): 185 HEENT: mucous membranes moist Respiratory/Chest: no respiratory distress Cardiovascular: regular rhythm Abdomen: non distended Laboratory Tests Test 12/07/18 06:10 White Blood Count 13.0 K/UL (4.8-10.8) #H Red Blood Count 3.57 M/UL (4.70-6.10) L Hemoglobin 10.9 G/DL (14.2-18.0) L Hematocrit 31.4 % (42.0-52.0) L Mean Corpuscular Volume 88 FL (80-99) Mean Corpuscular Hemoglobin 30.6 PG (27.0-31.0) Mean Corpuscular Hemoglobin Concent 34.8 G/DL (32.0-36.0) Red Cell Distribution Width 10.8 % (11.6-14.8) L Platelet Count 199 K/UL (150-450) Mean Platelet Volume 5.4 FL (6.5-10.1) L Neutrophils (%) (Auto) % (45.0-75.0) Lymphocytes (%) (Auto) % (20.0-45.0) Monocytes (%) (Auto) % (1.0-10.0) Eosinophils (%) (Auto) % (0.0-3.0) Basophils (%) (Auto) % (0.0-2.0) Differential Total Cells Counted 100 Neutrophils % (Manual) 76 % (45-75) H Lymphocytes % (Manual) 18 % (20-45) L Monocytes % (Manual) 6 % (1-10) Eosinophils % (Manual) 0 % (0-3) Basophils % (Manual) 0 % (0-2) Band Neutrophils 0 % (0-8) Platelet Estimate Adequate Platelet Morphology Normal Hypochromasia 1+ Anisocytosis 1+ Sodium Level 135 MMOL/L (136-145) L Potassium Level 4.1 MMOL/L (3.5-5.1) Chloride Level 102 MMOL/L (98-107) Carbon Dioxide Level 26 MMOL/L (21-32) Anion Gap 7 mmol/L (5-15) Blood Urea Nitrogen 15 mg/dL (7-18) Creatinine 1.3 MG/DL (0.55-1.30) Estimat Glomerular Filtration Rate mL/min (>60) Glucose Level 164 MG/DL (74-106) H Calcium Level 8.6 MG/DL (8.5-10.1) Current Medications Medications (Trade) Dose Ordered Sig/Levi Route PRN Reason Start Time Stop Time Status Last Admin Dose Admin Acetaminophen (Tylenol) 650 mg Q4H PRN ORAL fever 11/22/18 13:30 12/22/18 13:29 12/07/18 04:32 Al Hydroxide/Mg Hydroxide (Mylanta II) 30 ml Q6H PRN ORAL dyspepsia 11/22/18 13:30 12/22/18 13:29 Amlodipine Besylate (Norvasc) 2.5 mg DAILY ORAL 11/29/18 09:00 12/29/18 08:59 12/06/18 08:16 Dextrose (Dextrose 50%) 25 ml Q30M PRN IV Hypoglycemia 11/22/18 13:30 12/22/18 13:23 11/22/18 17:21 Dextrose (Dextrose 50%) 50 ml Q30M PRN IV hypoglycemia 11/22/18 13:30 12/22/18 13:29 Dextrose/Sodium Chloride 1,000 ml @ 75 mls/hr [id number] IV 11/22/18 13:16 12/22/18 13:15 12/07/18 11:41 Diphenhydramine HCl (Benadryl) 25 mg Q6H PRN ORAL Itching/Pruritis 11/22/18 13:30 12/22/18 13:29 Finasteride (Proscar) 5 mg DAILY ORAL 11/22/18 19:45 12/22/18 19:44 12/07/18 08:33 Hydralazine HCl (Apresoline) 50 mg Q6H PRN ORAL SBP > 160 11/22/18 17:30 12/22/18 17:29 12/06/18 20:59 Insulin Aspart (NovoLOG) BEFORE MEALS AND HS SUBQ 11/22/18 16:30 12/22/18 16:29 12/07/18 17:07 Iopamidol (Isovue-300 100ml) 200 ml NOW PRN INJ Radiology Procedure 12/06/18 08:15 12/09/18 08:13 Irbesartan (Avapro) 150 mg BID ORAL 11/25/18 09:00 12/25/18 08:59 12/06/18 18:18 Iron Sucrose 100 mg/Sodium Chloride 60 ml @ 240 mls/hr BEDTIME IV 12/07/18 21:00 12/11/18 21:14 Methimazole (Tapazole) 10 mg DAILY ORAL 11/29/18 09:00 12/24/18 08:59 12/07/18 08:33 Morphine Sulfate (Morphine Sulfate) 2 mg Q4H PRN IVP Severe Pain (Pain Scale 7-10) 12/01/18 23:15 12/08/18 23:14 12/04/18 17:27 Nateglinide (Starlix) 120 mg TIAC ORAL 11/29/18 11:30 12/24/18 11:29 12/07/18 17:05 Nitroglycerin (Ntg) 0.4 mg Q5M X 3 DOSES PRN SL Prn Chest Pain 11/22/18 13:30 12/22/18 13:29 Ondansetron HCl (Zofran) 4 mg Q6H PRN IVP Nausea & Vomiting 11/22/18 13:30 12/22/18 13:29 Pantoprazole (Protonix) 40 mg DAILY ORAL 12/05/18 09:00 12/24/18 20:59 12/07/18 08:33 Polyethylene Glycol (Miralax) 17 gm HSPRN PRN ORAL Constipation 11/22/18 13:30 12/22/18 13:29 12/04/18 21:38 Tamsulosin HCl (Flomax) 0.4 mg BEDTIME ORAL 11/22/18 21:00 12/22/18 20:59 12/06/18 20:58 Temazepam (Restoril) 15 mg HSPRN PRN ORAL Insomnia 12/05/18 10:00 12/12/18 09:59 12/06/18 20:58 Khai Cordoab MD Dec 07, 2018 18:13
--- NOTE | 2018-12-07 19:30 | NUR ---
HAND-OFF: Report given to BISI LAMB RN.
[2018-12-07 20:00] VITALS: BP 118/48
--- NOTE | 2018-12-07 20:00 | NUR ---
NURSE NOTES: PT IN BED. ON RA, NO SOB, NO ACUTE DISTRESS, DENIES PAIN. RFA IV INTACT, PATENT RUNNING FLUIDS. BED IN LOWEST POSITION, LOCKED, ALARMS ON. CALL LIGHT IN REACH. WILL BE ON NPO D/T NEPHROTOMOGRAPHY TOMORROW.
[2018-12-07] MEDS: Iron Sucrose 100 MG in NS 55 ML IV SCH (21:35)
[2018-12-07] MEDS: Tamsulosin 0.4mg cap ORAL SCH (21:35)
--- NOTE | 2018-12-07 23:31 | Neurology Progress Note ---
Interim History Interim History ROS Limited/Unobtainable: No Complaints: AMS Events: Stable neuro exam Review of Systems All Systems: reviewed and negative except above Objective Physical Exam Last Vital Signs Date Time Temp Pulse Resp B/P (MAP) Pulse Ox O2 Delivery O2 Flow Rate FiO2 12/07/18 17:07 107/46 12/07/18 16:00 98.6 64 16 100 12/07/18 09:00 Room Air Laboratory Tests Test 12/07/18 06:10 White Blood Count 13.0 K/UL (4.8-10.8) #H Red Blood Count 3.57 M/UL (4.70-6.10) L Hemoglobin 10.9 G/DL (14.2-18.0) L Hematocrit 31.4 % (42.0-52.0) L Mean Corpuscular Volume 88 FL (80-99) Mean Corpuscular Hemoglobin 30.6 PG (27.0-31.0) Mean Corpuscular Hemoglobin Concent 34.8 G/DL (32.0-36.0) Red Cell Distribution Width 10.8 % (11.6-14.8) L Platelet Count 199 K/UL (150-450) Mean Platelet Volume 5.4 FL (6.5-10.1) L Neutrophils (%) (Auto) % (45.0-75.0) Lymphocytes (%) (Auto) % (20.0-45.0) Monocytes (%) (Auto) % (1.0-10.0) Eosinophils (%) (Auto) % (0.0-3.0) Basophils (%) (Auto) % (0.0-2.0) Differential Total Cells Counted 100 Neutrophils % (Manual) 76 % (45-75) H Lymphocytes % (Manual) 18 % (20-45) L Monocytes % (Manual) 6 % (1-10) Eosinophils % (Manual) 0 % (0-3) Basophils % (Manual) 0 % (0-2) Band Neutrophils 0 % (0-8) Platelet Estimate Adequate Platelet Morphology Normal Hypochromasia 1+ Anisocytosis 1+ Sodium Level 135 MMOL/L (136-145) L Potassium Level 4.1 MMOL/L (3.5-5.1) Chloride Level 102 MMOL/L (98-107) Carbon Dioxide Level 26 MMOL/L (21-32) Anion Gap 7 mmol/L (5-15) Blood Urea Nitrogen 15 mg/dL (7-18) Creatinine 1.3 MG/DL (0.55-1.30) Estimat Glomerular Filtration Rate mL/min (>60) Glucose Level 164 MG/DL (74-106) H Calcium Level 8.6 MG/DL (8.5-10.1) Impression/Recommendations Problems: (1) Altered level of consciousness Assessment & Plan: CT 11/22/18: Chronic and age-related changes is noted. 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 Aware of location, person and situation. Date is inconsistent. (10) Chronic cerebrovascular accident (CVA) Assessment & Plan: CT Brain w/o contrast : 11/22/18 Chronic and age-related changes is noted. 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 Status: doing well, stable, progressing, tolerating diet Recommendations PT/OT and Dispo planning Stable for discharge from a neurological perspective. Bailey Appiah N.P. Dec 07, 2018 23:31
[2018-12-08] VITALS: BP 121/58
[2018-12-08] MEDS: D5 1/2NS 1,000 ML IV SCH ×2 (02:41→16:40)
[2018-12-08 04:00] VITALS: BP 126/76
[2018-12-08] MEDS: NovoLOG Insulin Flexpen SUBQ SCH ×4 (05:41→20:33)
--- NOTE | 2018-12-08 06:46 | General Progress Note ---
Assessment/Plan Problem List: (1) Acute metabolic encephalopathy ICD Codes: G93.41 - Metabolic encephalopathy SNOMED: 29238634, 963917344 (2) Hyperthyroidism ICD Codes: E05.90 - Thyrotoxicosis, unspecified without thyrotoxic crisis or storm SNOMED: 48500958 (3) Diabetes mellitus ICD Codes: E11.9 - Type 2 diabetes mellitus without complications SNOMED: 28015805 (4) Bladder neoplasm ICD Codes: D49.4 - Neoplasm of unspecified behavior of bladder SNOMED: 186751815 (5) Hydronephrosis ICD Codes: N13.30 - Unspecified hydronephrosis SNOMED: 04669736 Status: doing well, stable, progressing, tolerating diet Assessment/Plan: thyroid function improved on Tapazole TSI pending continue Tapazole 10 mg daily continue Starlix 120 mg ac tid continue NISS ac / hs Subjective Allergies: Coded Allergies: No Known Allergies (Unverified , 04/09/16) All Systems: reviewed and negative except above Subjective events noted Item Value Date Time Bedside Blood Glucose 150 mg/dl H 12/08/18 0614 Bedside Blood Glucose 134 mg/dl H 12/07/18 2136 Bedside Blood Glucose 232 mg/dl H 12/07/18 1707 Bedside Blood Glucose 130 mg/dl H 12/07/18 1141 Bedside Blood Glucose 170 mg/dl H 12/07/18 0630 Objective Last 24 Hour Vital Signs Date Time Temp Pulse Resp B/P (MAP) Pulse Ox O2 Delivery O2 Flow Rate FiO2 12/08/18 04:00 97.9 87 18 126/76 (93) 100 12/08/18 00:00 98.7 62 18 121/58 (79) 98 12/07/18 21:00 Room Air 12/07/18 20:00 97.5 66 17 118/48 (71) 98 12/07/18 17:07 107/46 12/07/18 16:00 98.6 64 16 107/46 (66) 100 12/07/18 12:00 97.8 61 16 118/58 (78) 98 12/07/18 09:00 Room Air 12/07/18 08:33 61 102/45 12/07/18 08:33 102/45 12/07/18 08:00 97.3 61 16 102/45 (64) 99 Intake and Output 12/07/18 12/08/18 19:00 07:00 Intake Total 1595 ml 780 ml Output Total 425 ml 1000 ml Balance 1170 ml -220 ml Intake Oral 920 ml 50 ml IV Total 675 ml 730 ml Output Urine Total 350 ml Other 425 ml 650 ml # Voids 3 Height (Feet): 6 Height (Inches): 6.00 Weight (Pounds): 176 General Appearance: no apparent distress Neck: normal alignment Cardiovascular: normal rate Respiratory/Chest: lungs clear Abdomen: normal bowel sounds Pelvis: normal external exam Objective Current Medications Medications (Trade) Dose Ordered Sig/Levi Route PRN Reason Start Time Stop Time Status Last Admin Dose Admin Acetaminophen (Tylenol) 650 mg Q4H PRN ORAL fever 11/22/18 13:30 12/22/18 13:29 12/07/18 04:32 Al Hydroxide/Mg Hydroxide (Mylanta II) 30 ml Q6H PRN ORAL dyspepsia 11/22/18 13:30 12/22/18 13:29 Amlodipine Besylate (Norvasc) 2.5 mg DAILY ORAL 11/29/18 09:00 12/29/18 08:59 12/06/18 08:16 Dextrose (Dextrose 50%) 25 ml Q30M PRN IV Hypoglycemia 11/22/18 13:30 12/22/18 13:23 11/22/18 17:21 Dextrose (Dextrose 50%) 50 ml Q30M PRN IV hypoglycemia 11/22/18 13:30 12/22/18 13:29 Dextrose/Sodium Chloride 1,000 ml @ 75 mls/hr [id number] IV 11/22/18 13:16 12/22/18 13:15 12/08/18 02:41 Diphenhydramine HCl (Benadryl) 25 mg Q6H PRN ORAL Itching/Pruritis 11/22/18 13:30 12/22/18 13:29 Finasteride (Proscar) 5 mg DAILY ORAL 11/22/18 19:45 12/22/18 19:44 12/07/18 08:33 Hydralazine HCl (Apresoline) 50 mg Q6H PRN ORAL SBP > 160 11/22/18 17:30 12/22/18 17:29 12/06/18 20:59 Insulin Aspart (NovoLOG) BEFORE MEALS AND HS SUBQ 11/22/18 16:30 12/22/18 16:29 12/08/18 05:41 Iopamidol (Isovue-300 100ml) 200 ml NOW PRN INJ Radiology Procedure 12/06/18 08:15 12/09/18 08:13 Irbesartan (Avapro) 150 mg BID ORAL 11/25/18 09:00 12/25/18 08:59 12/06/18 18:18 Iron Sucrose 100 mg/Sodium Chloride 60 ml @ 240 mls/hr BEDTIME IV 12/07/18 21:00 12/11/18 21:14 12/07/18 21:35 Methimazole (Tapazole) 10 mg DAILY ORAL 11/29/18 09:00 12/24/18 08:59 12/07/18 08:33 Morphine Sulfate (Morphine Sulfate) 2 mg Q4H PRN IVP Severe Pain (Pain Scale 7-10) 12/01/18 23:15 12/08/18 23:14 12/04/18 17:27 Nateglinide (Starlix) 120 mg TIAC ORAL 11/29/18 11:30 12/24/18 11:29 12/07/18 17:05 Nitroglycerin (Ntg) 0.4 mg Q5M X 3 DOSES PRN SL Prn Chest Pain 11/22/18 13:30 12/22/18 13:29 Ondansetron HCl (Zofran) 4 mg Q6H PRN IVP Nausea & Vomiting 11/22/18 13:30 12/22/18 13:29 Pantoprazole (Protonix) 40 mg DAILY ORAL 12/05/18 09:00 12/24/18 20:59 12/07/18 08:33 Polyethylene Glycol (Miralax) 17 gm HSPRN PRN ORAL Constipation 11/22/18 13:30 12/22/18 13:29 12/04/18 21:38 Tamsulosin HCl (Flomax) 0.4 mg BEDTIME ORAL 11/22/18 21:00 12/22/18 20:59 12/07/18 21:35 Temazepam (Restoril) 15 mg HSPRN PRN ORAL Insomnia 12/05/18 10:00 12/12/18 09:59 12/06/18 20:58 Kashif Adorno MD December 08, 2018 06:46
[2018-12-08 07:50] LABS: BASOPHILS % (AUTO) 0.6 % (0.0-2.0); HEMATOCRIT 30.3 % (42.0-52.0); HEMOGLOBIN 10.3 G/DL (14.2-18.0); LYMPHOCYTES % (AUTO) 13.1 % (20.0-45.0); MEAN CORPUSCULAR VOLUME 89 FL (80-99); MONOCYTES % (AUTO) 8.4 % (1.0-10.0); NEUTROPHILS % (AUTO) 77.9 % (45.0-75.0); PLATELET COUNT 180 K/UL (150-450); RED BLOOD COUNT 3.41 M/UL (4.70-6.10); RED CELL DISTRIBUTION WIDTH 10.8 % (11.6-14.8); WHITE BLOOD COUNT 8.2 K/UL (4.8-10.8)
[2018-12-08 08:00] VITALS: BP 117/55
[2018-12-08 08:03] LABS: ALANINE AMINOTRANSFERASE 19 U/L (12-78); ALBUMIN 2.3 G/DL (3.4-5.0); ALBUMIN/GLOBULIN RATIO 0.6 (1.0-2.7); ALKALINE PHOSPHATASE 109 U/L (46-116); ANION GAP 7 mmol/L (5-15); ASPARTATE AMINO TRANSFERASE 15 U/L (15-37); BILIRUBIN,TOTAL 0.4 MG/DL (0.2-1.0); BLOOD UREA NITROGEN 16 mg/dL (7-18); CALCIUM 8.7 MG/DL (8.5-10.1); CARBON DIOXIDE 27 MMOL/L (21-32); CHLORIDE 105 MMOL/L (98-107); CREATININE 1.1 MG/DL (0.55-1.30); POTASSIUM 3.9 MMOL/L (3.5-5.1); SODIUM 139 MMOL/L (136-145)
[2018-12-08] MEDS: Irbesartan 150mg tablet ORAL SCH ×2 (08:32→18:00)
--- NOTE | 2018-12-08 08:39 | Urology Progress Note ---
Assessment/Plan Status: doing well, stable, progressing, tolerating diet Assessment/Plan: 1. Left hydronephrosis. 2. Hematuria. 3. Pyuria. 4. Proteinuria. 5. Benign prostatic hypertrophy. 6. Incontinence. 7. Neurogenic bladder. 8. Cystitis. 9. Bladder cancer. 10. POD # 14, cysto/TURBT monitor clinically hernandez out and voiding left hydro secondary to bladder tumor left nephrostomy placed 11/26, keep off suction hand irrigate PRN unable to place antegrade ureteral stent flomax and proscar monitor for voiding and reinsert hernandez PRN s/p diflucan med onc eval IR to reattempt antegrade stent Subjective Allergies: Coded Allergies: No Known Allergies (Unverified , 04/09/16) Subjective all noted, feels fair, voiding, awaiting procedure by IR Objective Last 24 Hour Vital Signs Date Time Temp Pulse Resp B/P (MAP) Pulse Ox O2 Delivery O2 Flow Rate FiO2 12/08/18 08:32 60 117/55 12/08/18 08:32 117/55 12/08/18 08:00 98.2 60 14 117/55 (75) 100 12/08/18 04:00 97.9 87 18 126/76 (93) 100 12/08/18 00:00 98.7 62 18 121/58 (79) 98 12/07/18 21:00 Room Air 12/07/18 20:00 97.5 66 17 118/48 (71) 98 12/07/18 17:07 107/46 12/07/18 16:00 98.6 64 16 107/46 (66) 100 12/07/18 12:00 97.8 61 16 118/58 (78) 98 12/07/18 09:00 Room Air Intake and Output 12/07/18 12/08/18 19:00 07:00 Intake Total 1595 ml 780 ml Output Total 425 ml 1000 ml Balance 1170 ml -220 ml Intake Oral 920 ml 50 ml IV Total 675 ml 730 ml Output Urine Total 350 ml Other 425 ml 650 ml # Voids 3 Microbiology Date/Time Source Procedure Growth Status 11/22/18 12:20 Nasal Nares MRSA Culture - Final NO METHICILLIN RESISTANT STAPH AUREUS... Complete 11/22/18 11:15 Urine,Clean Catch Urine Culture - Final YEAST Complete 11/22/18 12:20 Rectal Mucosa VRE Culture - Final NO VANCOMYCIN RESISTANT ENTEROCOCCUS ... Complete 11/22/18 12:20 Rectal Mucosa - Final NO CARBAPENEM-RESISTANT ENTEROBACTERI... Complete Current Medications Medications (Trade) Dose Ordered Sig/Levi Route PRN Reason Start Time Stop Time Status Last Admin Dose Admin Acetaminophen (Tylenol) 650 mg Q4H PRN ORAL fever 11/22/18 13:30 12/22/18 13:29 12/07/18 04:32 Al Hydroxide/Mg Hydroxide (Mylanta II) 30 ml Q6H PRN ORAL dyspepsia 11/22/18 13:30 12/22/18 13:29 Amlodipine Besylate (Norvasc) 2.5 mg DAILY ORAL 11/29/18 09:00 12/29/18 08:59 12/06/18 08:16 Dextrose (Dextrose 50%) 25 ml Q30M PRN IV Hypoglycemia 11/22/18 13:30 12/22/18 13:23 11/22/18 17:21 Dextrose (Dextrose 50%) 50 ml Q30M PRN IV hypoglycemia 11/22/18 13:30 12/22/18 13:29 Dextrose/Sodium Chloride 1,000 ml @ 75 mls/hr [id number] IV 11/22/18 13:16 12/22/18 13:15 12/08/18 02:41 Diphenhydramine HCl (Benadryl) 25 mg Q6H PRN ORAL Itching/Pruritis 11/22/18 13:30 12/22/18 13:29 Finasteride (Proscar) 5 mg DAILY ORAL 11/22/18 19:45 12/22/18 19:44 12/08/18 08:31 Hydralazine HCl (Apresoline) 50 mg Q6H PRN ORAL SBP > 160 11/22/18 17:30 12/22/18 17:29 12/06/18 20:59 Insulin Aspart (NovoLOG) BEFORE MEALS AND HS SUBQ 11/22/18 16:30 12/22/18 16:29 12/08/18 05:41 Iopamidol (Isovue-300 100ml) 200 ml NOW PRN INJ Radiology Procedure 12/06/18 08:15 12/09/18 08:13 Irbesartan (Avapro) 150 mg BID ORAL 11/25/18 09:00 12/25/18 08:59 12/06/18 18:18 Iron Sucrose 100 mg/Sodium Chloride 60 ml @ 240 mls/hr BEDTIME IV 12/07/18 21:00 12/11/18 21:14 12/07/18 21:35 Methimazole (Tapazole) 10 mg DAILY ORAL 11/29/18 09:00 12/24/18 08:59 12/08/18 08:31 Morphine Sulfate (Morphine Sulfate) 2 mg Q4H PRN IVP Severe Pain (Pain Scale 7-10) 12/01/18 23:15 12/08/18 23:14 12/04/18 17:27 Nateglinide (Starlix) 120 mg TIAC ORAL 11/29/18 11:30 12/24/18 11:29 12/07/18 17:05 Nitroglycerin (Ntg) 0.4 mg Q5M X 3 DOSES PRN SL Prn Chest Pain 11/22/18 13:30 12/22/18 13:29 Ondansetron HCl (Zofran) 4 mg Q6H PRN IVP Nausea & Vomiting 11/22/18 13:30 12/22/18 13:29 Pantoprazole (Protonix) 40 mg DAILY ORAL 12/05/18 09:00 12/24/18 20:59 12/08/18 08:31 Polyethylene Glycol (Miralax) 17 gm HSPRN PRN ORAL Constipation 11/22/18 13:30 12/22/18 13:29 12/04/18 21:38 Tamsulosin HCl (Flomax) 0.4 mg BEDTIME ORAL 11/22/18 21:00 12/22/18 20:59 12/07/18 21:35 Temazepam (Restoril) 15 mg HSPRN PRN ORAL Insomnia 12/05/18 10:00 12/12/18 09:59 12/06/18 20:58 Laboratory Tests 12/08/18 06:39: White Blood Count 8.2, Red Blood Count 3.41L, Hemoglobin 10.3L, Hematocrit 30.3L , Mean Corpuscular Volume 89, Mean Corpuscular Hemoglobin 30.2, Mean Corpuscular Hemoglobin Concent 34.1, Red Cell Distribution Width 10.8L, Platelet Count 180, Mean Platelet Volume 5.6L, Neutrophils (%) (Auto) 77.9H, Lymphocytes (%) (Auto) 13.1L, Monocytes (%) (Auto) 8.4, Eosinophils (%) (Auto) 0.0, Basophils (%) (Auto) 0.6, Sodium Level 139, Potassium Level 3.9, Chloride Level 105, Carbon Dioxide Level 27, Anion Gap 7, Blood Urea Nitrogen 16, Creatinine 1.1, Estimat Glomerular Filtration Rate , Glucose Level 146H, Calcium Level 8.7, Total Bilirubin 0.4, Aspartate Amino Transf (AST/SGOT) 15, Alanine Aminotransferase (ALT/SGPT) 19, Alkaline Phosphatase 109, Total Protein 6.2L, Albumin 2.3L, Globulin 3.9, Albumin/Globulin Ratio 0.6L Height (Feet): 6 Height (Inches): 6.00 Weight (Pounds): 176 Objective exam stable left nephrostomy output clearing final path noted Macho Allen MD December 08, 2018 08:39
--- NOTE | 2018-12-08 09:50 | NUR ---
NURSE NOTES: PER [facility] ED, PT'S PROCEDURE HAS BEEN POSTPONED TO THURSDAY BECAUSE DR GUTIERREZ WANTS TO CHANGE THE PROCEDURE AND NEEDS TO SPEAK WITH NEXT OF KIN. RN SPOKE TO LETY COOK (GRANDDAUGHTER) AT [phone] GUTIERREZ NEEDS TO SPEAK WITH HER REGARDING HER GRANDFATHER. RN GAVE DR GUTIERREZ'S OFFICE NUMBER AND INSTRUCTED TO CALL TO SPEAK TO MD. DAVIDSON VERBALIZED UNDERSTANDING. WILL CONTINUE TO MONITOR.
--- NOTE | 2018-12-08 10:46 | GI Progress Note ---
Assessment/Plan Problems: (1) Lower GI bleed ICD Codes: K92.2 - Gastrointestinal hemorrhage, unspecified SNOMED: 78416848 (2) Anemia ICD Codes: D64.9 - Anemia, unspecified SNOMED: 775250522 (3) Bleeding hemorrhoid ICD Codes: K64.9 - Unspecified hemorrhoids SNOMED: 19233688 (4) Alzheimer's dementia ICD Codes: G30.9 - Alzheimer's disease, unspecified; F02.80 - Dementia in other diseases classified elsewhere without behavioral disturbance SNOMED: 51804045 (5) Diabetes mellitus ICD Codes: E11.9 - Type 2 diabetes mellitus without complications SNOMED: 07163283 Status: unchanged Status Narrative Discussed with Dr. Hernandez Assessment/Plan SUMMARY OF FINDINGS: 1. Gastritis and possibly gastric ulceration, status post biopsy. 2. One colonic polyp removed, see above for details. 3. Internal hemorrhoids. Occult blood stool negative Patient passed video swallow RECOMMENDATIONS: Follow-up urology recommendations Follow up pathology. >> H. pylori negative Resume diet. monitor H&H, prn transfusions bowel regime ppi fu labs The patient was seen and examined at bedside and all new and available data was reviewed in the patients chart. I agree with the above findings, impression and plan. (Patient seen earlier today. Signature stamp does not reflect patient encounter time.). - Prince Hrenandez MD Subjective Subjective Limited Objective Last 24 Hour Vital Signs Date Time Temp Pulse Resp B/P (MAP) Pulse Ox O2 Delivery O2 Flow Rate FiO2 12/08/18 09:00 Room Air 12/08/18 08:32 60 117/55 12/08/18 08:32 117/55 12/08/18 08:00 98.2 60 14 117/55 (75) 100 12/08/18 04:00 97.9 87 18 126/76 (93) 100 12/08/18 00:00 98.7 62 18 121/58 (79) 98 12/07/18 21:00 Room Air 12/07/18 20:00 97.5 66 17 118/48 (71) 98 12/07/18 17:07 107/46 12/07/18 16:00 98.6 64 16 107/46 (66) 100 12/07/18 12:00 97.8 61 16 118/58 (78) 98 Intake and Output 12/07/18 12/08/18 18:59 06:59 Intake Total 1670 ml 780 ml Output Total 425 ml 1000 ml Balance 1245 ml -220 ml Intake Oral 920 ml 50 ml IV Total 750 ml 730 ml Output Urine Total 350 ml Other 425 ml 650 ml # Voids 3 Laboratory Tests Test 12/08/18 06:39 White Blood Count 8.2 K/UL (4.8-10.8) Red Blood Count 3.41 M/UL (4.70-6.10) L Hemoglobin 10.3 G/DL (14.2-18.0) L Hematocrit 30.3 % (42.0-52.0) L Mean Corpuscular Volume 89 FL (80-99) Mean Corpuscular Hemoglobin 30.2 PG (27.0-31.0) Mean Corpuscular Hemoglobin Concent 34.1 G/DL (32.0-36.0) Red Cell Distribution Width 10.8 % (11.6-14.8) L Platelet Count 180 K/UL (150-450) Mean Platelet Volume 5.6 FL (6.5-10.1) L Neutrophils (%) (Auto) 77.9 % (45.0-75.0) H Lymphocytes (%) (Auto) 13.1 % (20.0-45.0) L Monocytes (%) (Auto) 8.4 % (1.0-10.0) Eosinophils (%) (Auto) 0.0 % (0.0-3.0) Basophils (%) (Auto) 0.6 % (0.0-2.0) Sodium Level 139 MMOL/L (136-145) Potassium Level 3.9 MMOL/L (3.5-5.1) Chloride Level 105 MMOL/L (98-107) Carbon Dioxide Level 27 MMOL/L (21-32) Anion Gap 7 mmol/L (5-15) Blood Urea Nitrogen 16 mg/dL (7-18) Creatinine 1.1 MG/DL (0.55-1.30) Estimat Glomerular Filtration Rate mL/min (>60) Glucose Level 146 MG/DL (74-106) H Calcium Level 8.7 MG/DL (8.5-10.1) Total Bilirubin 0.4 MG/DL (0.2-1.0) Aspartate Amino Transf (AST/SGOT) 15 U/L (15-37) Alanine Aminotransferase (ALT/SGPT) 19 U/L (12-78) Alkaline Phosphatase 109 U/L (46-116) Total Protein 6.2 G/DL (6.4-8.2) L Albumin 2.3 G/DL (3.4-5.0) L Globulin 3.9 g/dL Albumin/Globulin Ratio 0.6 (1.0-2.7) L Height (Feet): 6 Height (Inches): 6.00 Weight (Pounds): 176 General Appearance: WD/WN, no apparent distress, alert Cardiovascular: normal rate Respiratory/Chest: normal breath sounds, no respiratory distress Abdominal Exam: normal bowel sounds, non tender, soft Extremities: normal range of motion, non-tender Osiel Vega NP December 08, 2018 10:46
--- NOTE | 2018-12-08 10:59 | NUR ---
NURSE NOTES: RN SPOKE TO DR IVEY AND MADE AWARE OF DR GUTIERREZ WANTING TO CHANGE PROCEDURE AND NEEDS TO SPEAK WITH NEXT OF KIN. IF PT STAYS, CAN DO PROCEDURE ON THURSDAY, OTHERWISE OUTPATIENT IS OK.
[2018-12-08 12:00] VITALS: BP 124/64
--- NOTE | 2018-12-08 12:41 | Internal Med Progress Note ---
Subjective Date of Service: December 08, 2018 Physician Name Jean-Claude Peter Attending Physician Jaziel Lowe MD Current Medications Medications (Trade) Dose Ordered Sig/Levi Route PRN Reason Start Time Stop Time Status Last Admin Dose Admin Acetaminophen (Tylenol) 650 mg Q4H PRN ORAL fever 11/22/18 13:30 12/22/18 13:29 12/07/18 04:32 Al Hydroxide/Mg Hydroxide (Mylanta II) 30 ml Q6H PRN ORAL dyspepsia 11/22/18 13:30 12/22/18 13:29 Amlodipine Besylate (Norvasc) 2.5 mg DAILY ORAL 11/29/18 09:00 12/29/18 08:59 12/06/18 08:16 Dextrose (Dextrose 50%) 25 ml Q30M PRN IV Hypoglycemia 11/22/18 13:30 12/22/18 13:23 11/22/18 17:21 Dextrose (Dextrose 50%) 50 ml Q30M PRN IV hypoglycemia 11/22/18 13:30 12/22/18 13:29 Dextrose/Sodium Chloride 1,000 ml @ 75 mls/hr [id number] IV 11/22/18 13:16 12/22/18 13:15 12/08/18 02:41 Diphenhydramine HCl (Benadryl) 25 mg Q6H PRN ORAL Itching/Pruritis 11/22/18 13:30 12/22/18 13:29 Finasteride (Proscar) 5 mg DAILY ORAL 11/22/18 19:45 12/22/18 19:44 12/08/18 08:31 Hydralazine HCl (Apresoline) 50 mg Q6H PRN ORAL SBP > 160 11/22/18 17:30 12/22/18 17:29 12/06/18 20:59 Insulin Aspart (NovoLOG) BEFORE MEALS AND HS SUBQ 11/22/18 16:30 12/22/18 16:29 12/08/18 12:00 Iopamidol (Isovue-300 100ml) 200 ml NOW PRN INJ Radiology Procedure 12/06/18 08:15 12/09/18 08:13 Irbesartan (Avapro) 150 mg BID ORAL 11/25/18 09:00 12/25/18 08:59 12/06/18 18:18 Iron Sucrose 100 mg/Sodium Chloride 60 ml @ 240 mls/hr BEDTIME IV 12/07/18 21:00 12/11/18 21:14 12/07/18 21:35 Methimazole (Tapazole) 10 mg DAILY ORAL 11/29/18 09:00 12/24/18 08:59 12/08/18 08:31 Morphine Sulfate (Morphine Sulfate) 2 mg Q4H PRN IVP Severe Pain (Pain Scale 7-10) 12/01/18 23:15 12/08/18 23:14 12/04/18 17:27 Nateglinide (Starlix) 120 mg TIAC ORAL 11/29/18 11:30 12/24/18 11:29 12/08/18 11:57 Nitroglycerin (Ntg) 0.4 mg Q5M X 3 DOSES PRN SL Prn Chest Pain 11/22/18 13:30 12/22/18 13:29 Ondansetron HCl (Zofran) 4 mg Q6H PRN IVP Nausea & Vomiting 11/22/18 13:30 12/22/18 13:29 Pantoprazole (Protonix) 40 mg DAILY ORAL 12/05/18 09:00 12/24/18 20:59 12/08/18 08:31 Polyethylene Glycol (Miralax) 17 gm HSPRN PRN ORAL Constipation 11/22/18 13:30 12/22/18 13:29 12/04/18 21:38 Tamsulosin HCl (Flomax) 0.4 mg BEDTIME ORAL 11/22/18 21:00 12/22/18 20:59 12/07/18 21:35 Temazepam (Restoril) 15 mg HSPRN PRN ORAL Insomnia 12/05/18 10:00 12/12/18 09:59 12/06/18 20:58 Allergies: Coded Allergies: No Known Allergies (Unverified , 04/09/16) ROS Limited/Unobtainable: No Constitutional: Reports: no symptoms HEENT: Reports: no symptoms Cardiovascular: Reports: no symptoms Respiratory: Reports: no symptoms Gastrointestinal/Abdominal: Reports: no symptoms Genitourinary: Reports: no symptoms 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: Reports: no symptoms Subjective 83 YO M admitted with gastrointestinal hemorrhage. S/P endoscopy and colonoscopy 11/24/18. S/P transurethral bladder tumor resection 11/24/18. S/P left nephrostomy 11/26/18. Cover for Int Uriel-Dr Lowe Objective Last Vital Signs Date Time Temp Pulse Resp B/P (MAP) Pulse Ox O2 Delivery O2 Flow Rate FiO2 12/08/18 09:00 Room Air 12/08/18 08:32 60 117/55 12/08/18 08:00 98.2 14 100 Laboratory Tests Test 12/08/18 06:39 White Blood Count 8.2 K/UL (4.8-10.8) Red Blood Count 3.41 M/UL (4.70-6.10) L Hemoglobin 10.3 G/DL (14.2-18.0) L Hematocrit 30.3 % (42.0-52.0) L Mean Corpuscular Volume 89 FL (80-99) Mean Corpuscular Hemoglobin 30.2 PG (27.0-31.0) Mean Corpuscular Hemoglobin Concent 34.1 G/DL (32.0-36.0) Red Cell Distribution Width 10.8 % (11.6-14.8) L Platelet Count 180 K/UL (150-450) Mean Platelet Volume 5.6 FL (6.5-10.1) L Neutrophils (%) (Auto) 77.9 % (45.0-75.0) H Lymphocytes (%) (Auto) 13.1 % (20.0-45.0) L Monocytes (%) (Auto) 8.4 % (1.0-10.0) Eosinophils (%) (Auto) 0.0 % (0.0-3.0) Basophils (%) (Auto) 0.6 % (0.0-2.0) Sodium Level 139 MMOL/L (136-145) Potassium Level 3.9 MMOL/L (3.5-5.1) Chloride Level 105 MMOL/L (98-107) Carbon Dioxide Level 27 MMOL/L (21-32) Anion Gap 7 mmol/L (5-15) Blood Urea Nitrogen 16 mg/dL (7-18) Creatinine 1.1 MG/DL (0.55-1.30) Estimat Glomerular Filtration Rate mL/min (>60) Glucose Level 146 MG/DL (74-106) H Calcium Level 8.7 MG/DL (8.5-10.1) Total Bilirubin 0.4 MG/DL (0.2-1.0) Aspartate Amino Transf (AST/SGOT) 15 U/L (15-37) Alanine Aminotransferase (ALT/SGPT) 19 U/L (12-78) Alkaline Phosphatase 109 U/L (46-116) Total Protein 6.2 G/DL (6.4-8.2) L Albumin 2.3 G/DL (3.4-5.0) L Globulin 3.9 g/dL Albumin/Globulin Ratio 0.6 (1.0-2.7) L Intake and Output 12/07/18 12/08/18 18:59 06:59 Intake Total 1670 ml 780 ml Output Total 425 ml 1000 ml Balance 1245 ml -220 ml Intake Oral 920 ml 50 ml IV Total 750 ml 730 ml Output Urine Total 350 ml Other 425 ml 650 ml # Voids 3 Objective PHYSICAL EXAMINATION: GENERAL: The patient is awake, alert, responsive, very pleasant, but forgetful. HEAD AND NECK: Pupils are reactive to light. Extraocular movements intact. Neck was supple. No JVD. LUNGS: Good air entry. No wheezing or rales. Left side of the chest has a pacemaker. ABDOMEN: Soft, nondistended, and nontender. Positive bowel sounds. EXTREMITIES: No cyanosis, clubbing, or edema. NEUROLOGIC: [employer] II through XII grossly intact. Motor is 5/5 in all extremities. Gait was not assessed due to the patient's status. RECTAL/GENITOURINARY: Refused and deferred. Assessment/Plan Assessment/Plan ASSESSMENT: 1. Gastrointestinal bleed. 2. Anemia possible due to acute blood loss. 3. Hypokalemia. 4. Acute urinary tract infection. 5. Moderate left hydronephrosis with hydroureter. 6. Cardiac arrhythmia status post pacemaker. 7. Diabetes type 2. 8. Hypertension. 9. Gastritis 10. hemorrhoids 11. hematuria-Bladder cancer PLAN: 1. Admit the patient to medical floor. 2. We will follow up with the laboratory. 3. Clear liquid diet. 4. Gastrointestinal consultation with Dr. Hernandez. 5. Code status is Full Code at this time. 6. See Urology consultation, Dr. Allen S/P transurethral resection bladder tumor High grade urothelial carcinoma 7. S/P Esophagogastroduodenoscopy and colonoscopy 11/24/18. 8. We will follow up with urine culture and Cardiology consultation with Dr. Nj Valenzuela. 9. Protonix 40 mg BID and carafate 1 gm QID 10 See Oncology consult 11. Will require anterograde stent by interv radiology-see urology note. 12. Discharge planning Jean-Claude Peter MD December 08, 2018 12:41
[2018-12-08] MEDS ORDERED: FLOMAX0.4 MG ORAL (13:32)
[2018-12-08] MEDS ORDERED: NORVASC2.5 MG ORAL (13:32)
[2018-12-08] MEDS ORDERED: STARLIX120 MG ORAL (13:32)
[2018-12-08] MEDS ORDERED: FINASTERIDE5 MG ORAL (13:32)
--- NOTE | 2018-12-08 13:34 | Pulmonology Progress Note ---
Assessment/Plan Problems: (1) Lower GI bleed (2) Hydronephrosis (3) Anemia (4) Bladder neoplasm (5) Chronic cerebrovascular accident (CVA) (6) Diabetes mellitus (7) Alzheimer's dementia (8) HTN (hypertension) Assessment/Plan clear urine from nephrostomy no new complains nephrostomy in place. tolerated cystoscopy follow up with pathology, still not available. looks comfortable sliding scale monitor bp f/u urology recommendations prbc prn check H/H dvt prophylaxis. Subjective ROS Limited/Unobtainable: No Constitutional: Reports: no symptoms HEENT: Repors: no symptoms Respiratory: Reports: no symptoms Allergies: Coded Allergies: No Known Allergies (Unverified , 04/09/16) Objective Last 24 Hour Vital Signs Date Time Temp Pulse Resp B/P (MAP) Pulse Ox O2 Delivery O2 Flow Rate FiO2 12/08/18 12:00 98.6 66 16 124/64 (84) 100 12/08/18 09:00 Room Air 12/08/18 08:32 60 117/55 12/08/18 08:32 117/55 12/08/18 08:00 98.2 60 14 117/55 (75) 100 12/08/18 04:00 97.9 87 18 126/76 (93) 100 12/08/18 00:00 98.7 62 18 121/58 (79) 98 12/07/18 21:00 Room Air 12/07/18 20:00 97.5 66 17 118/48 (71) 98 12/07/18 17:07 107/46 12/07/18 16:00 98.6 64 16 107/46 (66) 100 Intake and Output 12/07/18 12/08/18 18:59 06:59 Intake Total 1670 ml 780 ml Output Total 425 ml 1000 ml Balance 1245 ml -220 ml Intake Oral 920 ml 50 ml IV Total 750 ml 730 ml Output Urine Total 350 ml Other 425 ml 650 ml # Voids 3 Objective nephrostomy still draining blood tinged urine, but less than previous day General Appearance: WD/WN HEENT: normocephalic, atraumatic Cardiovascular: normal peripheral pulses, normal rate Abdomen: normal bowel sounds, soft, non tender Genitourinary: normal external genitalia Extremities: no clubbing Skin: no rash Laboratory Tests 12/08/18 06:39: White Blood Count 8.2, Red Blood Count 3.41L, Hemoglobin 10.3L, Hematocrit 30.3L , Mean Corpuscular Volume 89, Mean Corpuscular Hemoglobin 30.2, Mean Corpuscular Hemoglobin Concent 34.1, Red Cell Distribution Width 10.8L, Platelet Count 180, Mean Platelet Volume 5.6L, Neutrophils (%) (Auto) 77.9H, Lymphocytes (%) (Auto) 13.1L, Monocytes (%) (Auto) 8.4, Eosinophils (%) (Auto) 0.0, Basophils (%) (Auto) 0.6, Sodium Level 139, Potassium Level 3.9, Chloride Level 105, Carbon Dioxide Level 27, Anion Gap 7, Blood Urea Nitrogen 16, Creatinine 1.1, Estimat Glomerular Filtration Rate , Glucose Level 146H, Calcium Level 8.7, Total Bilirubin 0.4, Aspartate Amino Transf (AST/SGOT) 15, Alanine Aminotransferase (ALT/SGPT) 19, Alkaline Phosphatase 109, Total Protein 6.2L, Albumin 2.3L, Globulin 3.9, Albumin/Globulin Ratio 0.6L Current Medications Medications (Trade) Dose Ordered Sig/Levi Route PRN Reason Start Time Stop Time Status Last Admin Dose Admin Acetaminophen (Tylenol) 650 mg Q4H PRN ORAL fever 11/22/18 13:30 12/22/18 13:29 12/07/18 04:32 Al Hydroxide/Mg Hydroxide (Mylanta II) 30 ml Q6H PRN ORAL dyspepsia 11/22/18 13:30 12/22/18 13:29 Amlodipine Besylate (Norvasc) 2.5 mg DAILY ORAL 11/29/18 09:00 12/29/18 08:59 12/06/18 08:16 Dextrose (Dextrose 50%) 25 ml Q30M PRN IV Hypoglycemia 11/22/18 13:30 12/22/18 13:23 11/22/18 17:21 Dextrose (Dextrose 50%) 50 ml Q30M PRN IV hypoglycemia 11/22/18 13:30 12/22/18 13:29 Dextrose/Sodium Chloride 1,000 ml @ 75 mls/hr [id number] IV 11/22/18 13:16 12/22/18 13:15 12/08/18 02:41 Diphenhydramine HCl (Benadryl) 25 mg Q6H PRN ORAL Itching/Pruritis 11/22/18 13:30 12/22/18 13:29 Finasteride (Proscar) 5 mg DAILY ORAL 11/22/18 19:45 12/22/18 19:44 12/08/18 08:31 Hydralazine HCl (Apresoline) 50 mg Q6H PRN ORAL SBP > 160 11/22/18 17:30 12/22/18 17:29 12/06/18 20:59 Insulin Aspart (NovoLOG) BEFORE MEALS AND HS SUBQ 11/22/18 16:30 12/22/18 16:29 12/08/18 12:00 Iopamidol (Isovue-300 100ml) 200 ml NOW PRN INJ Radiology Procedure 12/06/18 08:15 12/09/18 08:13 Irbesartan (Avapro) 150 mg BID ORAL 11/25/18 09:00 12/25/18 08:59 12/06/18 18:18 Iron Sucrose 100 mg/Sodium Chloride 60 ml @ 240 mls/hr BEDTIME IV 12/07/18 21:00 12/11/18 21:14 12/07/18 21:35 Methimazole (Tapazole) 10 mg DAILY ORAL 11/29/18 09:00 12/24/18 08:59 12/08/18 08:31 Morphine Sulfate (Morphine Sulfate) 2 mg Q4H PRN IVP Severe Pain (Pain Scale 7-10) 12/01/18 23:15 12/08/18 23:14 12/04/18 17:27 Nateglinide (Starlix) 120 mg TIAC ORAL 11/29/18 11:30 12/24/18 11:29 12/08/18 11:57 Nitroglycerin (Ntg) 0.4 mg Q5M X 3 DOSES PRN SL Prn Chest Pain 11/22/18 13:30 12/22/18 13:29 Ondansetron HCl (Zofran) 4 mg Q6H PRN IVP Nausea & Vomiting 11/22/18 13:30 12/22/18 13:29 Pantoprazole (Protonix) 40 mg DAILY ORAL 12/05/18 09:00 12/24/18 20:59 12/08/18 08:31 Polyethylene Glycol (Miralax) 17 gm HSPRN PRN ORAL Constipation 11/22/18 13:30 12/22/18 13:29 12/04/18 21:38 Tamsulosin HCl (Flomax) 0.4 mg BEDTIME ORAL 11/22/18 21:00 12/22/18 20:59 12/07/18 21:35 Temazepam (Restoril) 15 mg HSPRN PRN ORAL Insomnia 12/05/18 10:00 12/12/18 09:59 12/06/18 20:58 Og Hinkle MD December 08, 2018 13:34
--- NOTE | 2018-12-08 15:08 | NUR ---
NURSE NOTES: RN MADE PT'S GRANDDAUGHTER LETY AWARE OF DISCHARGE HOME. PER GRANDDAUGHTER, SHE WANTS PT TO GO TO [facility]. RN LEFT MESSAGE FOR DR MELCHOR REGARDING REQUEST.
[2018-12-08 16:00] VITALS: BP 114/54
--- NOTE | 2018-12-08 16:22 | Infectious Diseases Prog Note ---
Assessment/Plan Assessment/Plan Assessment: Hematochezia -11/24 SP EGD/Colonoscopy: gastritis, hemorrhoids L hydronephrosis/L Hydroureter 2ry to extensive bladder tumor -11/25 SP Cystoscopy, urethral calibration, transurethral resection of extensive bladder tumor with fulguration, and right retrograde pyelogram. -Findings: The patient had what appeared to be a large bladder tumor that involved most of the left side of the bladder extending posteriorly and completely obliterating the left ureteral orifice. I was unable to place a stent on the left side. - -CT abd/p: Limited assessment of the GI tract, due to lack of enteric contrast administration. Moderate left hydronephrosis and hydroureter. Hydroureter extends to the bladder, where there is asymmetric posterolateral wall thickening raises concern for neoplasm. Further evaluation with cystoscopy should be considered. There is also generalized wall thickening, possibly on the basis of cystitis or chronic bladder outlet obstruction. No definite findings to suggest etiology of stated clinical history of GI bleed. Cholelithiasis. Basilar pulmonary atelectasis and equivocal slight interstitial congestion. L1 vertebral body compression fracture deformity, age indeterminate. Consider MRI for further evaluation if this is clinically relevant Afebrile leukocytosis mild -CXR: No acute process Pyuria Funguria -u/a wbc 10-15, nit +, leuk est +3; ucx <10 yeast Encephalopathy -Head CT: Chronic and age-related changes is noted. Negative for acute intracranial bleed or mass effect. 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 Dementia HTN BPH urinary incontinence AV dissociation w/ conduction s/p PPM metabolic encephalopathy UTI seizure disorders Plan: - Monitor off abx - 11/27/18 SP Ceftriaxone #5/5 (will continue post-urologic procedure) and PO Fluconazole #3/3 -Monitor CBC/CMP -GI, Uro f/u -aspiration precautions Subjective Allergies: Coded Allergies: No Known Allergies (Unverified , 04/09/16) Subjective Afebrile Objective Vital Signs Last 24 Hour Vital Signs Date Time Temp Pulse Resp B/P (MAP) Pulse Ox O2 Delivery O2 Flow Rate FiO2 12/08/18 12:00 98.6 66 16 124/64 (84) 100 12/08/18 09:00 Room Air 12/08/18 08:32 60 117/55 12/08/18 08:32 117/55 12/08/18 08:00 98.2 60 14 117/55 (75) 100 12/08/18 04:00 97.9 87 18 126/76 (93) 100 12/08/18 00:00 98.7 62 18 121/58 (79) 98 12/07/18 21:00 Room Air 12/07/18 20:00 97.5 66 17 118/48 (71) 98 12/07/18 17:07 107/46 Height (Feet): 6 Height (Inches): 6.00 Weight (Pounds): 176 HEENT: mucous membranes moist Respiratory/Chest: normal breath sounds Cardiovascular: regular rhythm Abdomen: no organomegaly Laboratory Tests Test 12/08/18 06:39 White Blood Count 8.2 K/UL (4.8-10.8) Red Blood Count 3.41 M/UL (4.70-6.10) L Hemoglobin 10.3 G/DL (14.2-18.0) L Hematocrit 30.3 % (42.0-52.0) L Mean Corpuscular Volume 89 FL (80-99) Mean Corpuscular Hemoglobin 30.2 PG (27.0-31.0) Mean Corpuscular Hemoglobin Concent 34.1 G/DL (32.0-36.0) Red Cell Distribution Width 10.8 % (11.6-14.8) L Platelet Count 180 K/UL (150-450) Mean Platelet Volume 5.6 FL (6.5-10.1) L Neutrophils (%) (Auto) 77.9 % (45.0-75.0) H Lymphocytes (%) (Auto) 13.1 % (20.0-45.0) L Monocytes (%) (Auto) 8.4 % (1.0-10.0) Eosinophils (%) (Auto) 0.0 % (0.0-3.0) Basophils (%) (Auto) 0.6 % (0.0-2.0) Sodium Level 139 MMOL/L (136-145) Potassium Level 3.9 MMOL/L (3.5-5.1) Chloride Level 105 MMOL/L (98-107) Carbon Dioxide Level 27 MMOL/L (21-32) Anion Gap 7 mmol/L (5-15) Blood Urea Nitrogen 16 mg/dL (7-18) Creatinine 1.1 MG/DL (0.55-1.30) Estimat Glomerular Filtration Rate mL/min (>60) Glucose Level 146 MG/DL (74-106) H Calcium Level 8.7 MG/DL (8.5-10.1) Total Bilirubin 0.4 MG/DL (0.2-1.0) Aspartate Amino Transf (AST/SGOT) 15 U/L (15-37) Alanine Aminotransferase (ALT/SGPT) 19 U/L (12-78) Alkaline Phosphatase 109 U/L (46-116) Total Protein 6.2 G/DL (6.4-8.2) L Albumin 2.3 G/DL (3.4-5.0) L Globulin 3.9 g/dL Albumin/Globulin Ratio 0.6 (1.0-2.7) L Current Medications Medications (Trade) Dose Ordered Sig/Levi Route PRN Reason Start Time Stop Time Status Last Admin Dose Admin Acetaminophen (Tylenol) 650 mg Q4H PRN ORAL fever 11/22/18 13:30 12/22/18 13:29 12/07/18 04:32 Al Hydroxide/Mg Hydroxide (Mylanta II) 30 ml Q6H PRN ORAL dyspepsia 11/22/18 13:30 12/22/18 13:29 Amlodipine Besylate (Norvasc) 2.5 mg DAILY ORAL 11/29/18 09:00 12/29/18 08:59 12/06/18 08:16 Dextrose (Dextrose 50%) 25 ml Q30M PRN IV Hypoglycemia 11/22/18 13:30 12/22/18 13:23 11/22/18 17:21 Dextrose (Dextrose 50%) 50 ml Q30M PRN IV hypoglycemia 11/22/18 13:30 12/22/18 13:29 Dextrose/Sodium Chloride 1,000 ml @ 75 mls/hr [id number] IV 11/22/18 13:16 12/22/18 13:15 12/08/18 02:41 Diphenhydramine HCl (Benadryl) 25 mg Q6H PRN ORAL Itching/Pruritis 11/22/18 13:30 12/22/18 13:29 Finasteride (Proscar) 5 mg DAILY ORAL 11/22/18 19:45 12/22/18 19:44 12/08/18 08:31 Hydralazine HCl (Apresoline) 50 mg Q6H PRN ORAL SBP > 160 11/22/18 17:30 12/22/18 17:29 12/06/18 20:59 Insulin Aspart (NovoLOG) BEFORE MEALS AND HS SUBQ 11/22/18 16:30 12/22/18 16:29 12/08/18 12:00 Iopamidol (Isovue-300 100ml) 200 ml NOW PRN INJ Radiology Procedure 12/06/18 08:15 12/09/18 08:13 Irbesartan (Avapro) 150 mg BID ORAL 11/25/18 09:00 12/25/18 08:59 12/06/18 18:18 Iron Sucrose 100 mg/Sodium Chloride 60 ml @ 240 mls/hr BEDTIME IV 12/07/18 21:00 12/11/18 21:14 12/07/18 21:35 Methimazole (Tapazole) 10 mg DAILY ORAL 11/29/18 09:00 12/24/18 08:59 12/08/18 08:31 Morphine Sulfate (Morphine Sulfate) 2 mg Q4H PRN IVP Severe Pain (Pain Scale 7-10) 12/01/18 23:15 12/08/18 23:14 12/04/18 17:27 Nateglinide (Starlix) 120 mg TIAC ORAL 11/29/18 11:30 12/24/18 11:29 12/08/18 11:57 Nitroglycerin (Ntg) 0.4 mg Q5M X 3 DOSES PRN SL Prn Chest Pain 11/22/18 13:30 12/22/18 13:29 Ondansetron HCl (Zofran) 4 mg Q6H PRN IVP Nausea & Vomiting 11/22/18 13:30 12/22/18 13:29 Pantoprazole (Protonix) 40 mg DAILY ORAL 12/05/18 09:00 12/24/18 20:59 12/08/18 08:31 Polyethylene Glycol (Miralax) 17 gm HSPRN PRN ORAL Constipation 11/22/18 13:30 12/22/18 13:29 12/04/18 21:38 Tamsulosin HCl (Flomax) 0.4 mg BEDTIME ORAL 11/22/18 21:00 12/22/18 20:59 12/07/18 21:35 Temazepam (Restoril) 15 mg HSPRN PRN ORAL Insomnia 12/05/18 10:00 12/12/18 09:59 12/06/18 20:58 Khai Cordoba MD December 08, 2018 16:22
--- NOTE | 2018-12-08 16:50 | General Progress Note ---
Assessment/Plan Status: unchanged Assessment/Plan: Assessment and Recs: # Bladder cancer extensive stage, iintially with L hydronephrosis/L Hydroureter 2ry to extensive bladder tumor, that is extensive stage. 11/25 SP Cystoscopy, urethral calibration, transurethral resection of extensive bladder tumor with fulguration, and right retrograde pyelogram. Findings: The patient had what appeared to be a large bladder tumor that involved most of the left side of the bladder extending posteriorly and completely obliterating the left ureteral orifice. I was unable to place a stent on the left side. --> CT abd/p: Limited assessment of the GI tract, due to lack of enteric contrast administration. Moderate left hydronephrosis and hydroureter. Hydroureter extends to the bladder, where there is asymmetric posterolateral wall thickening raises concern for neoplasm. Further evaluation with cystoscopy should be considered. There is also generalized wall thickening, possibly on the basis of cystitis or chronic bladder outlet obstruction. No definite findings to suggest etiology of stated clinical history of GI bleed. Cholelithiasis. Basilar pulmonary atelectasis and equivocal slight interstitial congestion. L1 vertebral body compression fracture deformity, age indeterminate. --> discussed case with pathologist, obtain pdl1 testing of tumor --> appreciate urology recs --> per ir may attempt placement of urinary stent # Anemia due to lower GI bleed --> appreciate gi recs, reviewed endoscopy report # Anemia due iron deficiency due to hemorrhoid bleed --> iv iron started, continue x 5 days --> appreciate gi recs # Hydronephrosis # Chronic cerebrovascular accident (CVA) # Diabetes mellitus # Alzheimer's dementia # HTN (hypertension) The timing of this note does not necessarily reflect the time of the patient was seen. Greatly appreciate consultation! Subjective Constitutional: Denies: no symptoms, chills, diaphoresis, fever, malaise, weakness, other HEENT: Denies: no symptoms, eye pain, blurred vision, tearing, double vision, ear pain, ear discharge, nose pain, nose congestion, throat pain, throat swelling, mouth pain, mouth swelling, other Cardiovascular: Denies: no symptoms, chest pain, edema, irregular heart rate, lightheadedness, palpitations, syncope, other Respiratory: Denies: no symptoms, cough, orthopnea, shortness of breath, SOB with excertion, SOB at rest, sputum, stridor, wheezing, other Gastrointestinal/Abdominal: Denies: no symptoms, abdomen distended, abdominal pain, black stools, tarry stools, blood in stool, constipated, diarrhea, difficulty swallowing, nausea, poor appetite, poor fluid intake, rectal bleeding , vomiting, other Genitourinary: Denies: no symptoms, burning, discharge, frequency, flank pain, hematuria, incontinence, pain, urgency, other Endocrine: Denies: no symptoms, excessive sweating, flushing, intolerance to cold, intolerance to heat, increased hunger, increased thirst, increased urine, unexplained weight gain, unexplained weight loss, other Hematologic/Lymphatic: Denies: no symptoms, anemia, easy bleeding, easy bruising, other Allergies: Coded Allergies: No Known Allergies (Unverified , 04/09/16) Subjective 12/07: no events, bed-bound, has poor performance status, feeling weak, unable to get out of bed 12/08: no chills, fevers, awaiting final path report, urine clear Objective Last 24 Hour Vital Signs Date Time Temp Pulse Resp B/P (MAP) Pulse Ox O2 Delivery O2 Flow Rate FiO2 12/08/18 16:00 98.1 101 18 114/54 (74) 98 12/08/18 12:00 98.6 66 16 124/64 (84) 100 12/08/18 09:00 Room Air 12/08/18 08:32 60 117/55 12/08/18 08:32 117/55 12/08/18 08:00 98.2 60 14 117/55 (75) 100 12/08/18 04:00 97.9 87 18 126/76 (93) 100 12/08/18 00:00 98.7 62 18 121/58 (79) 98 12/07/18 21:00 Room Air 12/07/18 20:00 97.5 66 17 118/48 (71) 98 12/07/18 17:07 107/46 Intake and Output 12/07/18 12/08/18 18:59 06:59 Intake Total 1670 ml 780 ml Output Total 425 ml 1000 ml Balance 1245 ml -220 ml Intake Oral 920 ml 50 ml IV Total 750 ml 730 ml Output Urine Total 350 ml Other 425 ml 650 ml # Voids 3 Laboratory Tests 12/08/18 06:39: White Blood Count 8.2, Red Blood Count 3.41L, Hemoglobin 10.3L, Hematocrit 30.3L , Mean Corpuscular Volume 89, Mean Corpuscular Hemoglobin 30.2, Mean Corpuscular Hemoglobin Concent 34.1, Red Cell Distribution Width 10.8L, Platelet Count 180, Mean Platelet Volume 5.6L, Neutrophils (%) (Auto) 77.9H, Lymphocytes (%) (Auto) 13.1L, Monocytes (%) (Auto) 8.4, Eosinophils (%) (Auto) 0.0, Basophils (%) (Auto) 0.6, Sodium Level 139, Potassium Level 3.9, Chloride Level 105, Carbon Dioxide Level 27, Anion Gap 7, Blood Urea Nitrogen 16, Creatinine 1.1, Estimat Glomerular Filtration Rate , Glucose Level 146H, Calcium Level 8.7, Total Bilirubin 0.4, Aspartate Amino Transf (AST/SGOT) 15, Alanine Aminotransferase (ALT/SGPT) 19, Alkaline Phosphatase 109, Total Protein 6.2L, Albumin 2.3L, Globulin 3.9, Albumin/Globulin Ratio 0.6L Height (Feet): 6 Height (Inches): 6.00 Weight (Pounds): 176 Objective General Appearance: well appearing, no apparent distress, alert Head: normocephalic EENT: PERRL/EOMI, normal ENT inspection Neck: supple Respiratory: normal breath sounds, no respiratory distress Cardiovascular: normal rate Gastrointestinal: normal inspection, non tender, soft, normal bowel sounds, non -distended Genitourinary: deferred Musculoskeletal: normal inspection, back normal, other - upper extremity tremors ++ nephrostomy tube Neurologic: alert, responsive Psychiatric: judgement/insight normal Skin: normal inspection, normal color, no rash, warm/dry, palpation normal, well hydrated Lymphatic: normal inspection, no adenopathy Pierce Mcguire MD December 08, 2018 16:50
--- NOTE | 2018-12-08 16:53 | NUR ---
P.T Note: late entry 1130 P.T evaluation completed and treatment initiated. Please refer to P.T evaluation for current functional status. Pt limited by generalized weakness and deconditioned state. MOD/MAX A X 1 for bed mobility , transfers and Gait using the FWW. Skilled P.T service is warranted to increase his strength, balance and activity tolerance to increase his functional mobility independence and safety. Recommend SNF for further rehab VS home P.T at [facility].
[2018-12-08 20:00] VITALS: BP 122/59
--- NOTE | 2018-12-08 20:08 | NUR ---
HAND-OFF: Report given to Kenyatta CLEMONS RN.
--- NOTE | 2018-12-08 20:10 | NUR ---
NURSE NOTES: PT IN BED. ON RA, NO SOB, NO ACUTE DISTRESS, DENIES PAIN. RFA IV INTACT, PATENT RUNNING FLUIDS. BED IN LOWEST POSITION, LOCKED, ALARMS ON. CALL LIGHT IN REACH. Will continue to monitor patient .
[2018-12-08] MEDS: Iron Sucrose 100 MG in NS 55 ML IV SCH (20:32)
[2018-12-08] MEDS: Tamsulosin 0.4mg cap ORAL SCH (20:32)
--- NOTE | 2018-12-08 23:25 | Neurology Progress Note ---
Interim History Interim History ROS Limited/Unobtainable: No Complaints: AMS Events: Stable neuro exam Objective Physical Exam Last Vital Signs Date Time Temp Pulse Resp B/P (MAP) Pulse Ox O2 Delivery O2 Flow Rate FiO2 12/08/18 21:00 Room Air 12/08/18 20:00 99.1 67 17 122/59 (80) 99 Laboratory Tests Test 12/08/18 06:39 White Blood Count 8.2 K/UL (4.8-10.8) Red Blood Count 3.41 M/UL (4.70-6.10) L Hemoglobin 10.3 G/DL (14.2-18.0) L Hematocrit 30.3 % (42.0-52.0) L Mean Corpuscular Volume 89 FL (80-99) Mean Corpuscular Hemoglobin 30.2 PG (27.0-31.0) Mean Corpuscular Hemoglobin Concent 34.1 G/DL (32.0-36.0) Red Cell Distribution Width 10.8 % (11.6-14.8) L Platelet Count 180 K/UL (150-450) Mean Platelet Volume 5.6 FL (6.5-10.1) L Neutrophils (%) (Auto) 77.9 % (45.0-75.0) H Lymphocytes (%) (Auto) 13.1 % (20.0-45.0) L Monocytes (%) (Auto) 8.4 % (1.0-10.0) Eosinophils (%) (Auto) 0.0 % (0.0-3.0) Basophils (%) (Auto) 0.6 % (0.0-2.0) Sodium Level 139 MMOL/L (136-145) Potassium Level 3.9 MMOL/L (3.5-5.1) Chloride Level 105 MMOL/L (98-107) Carbon Dioxide Level 27 MMOL/L (21-32) Anion Gap 7 mmol/L (5-15) Blood Urea Nitrogen 16 mg/dL (7-18) Creatinine 1.1 MG/DL (0.55-1.30) Estimat Glomerular Filtration Rate mL/min (>60) Glucose Level 146 MG/DL (74-106) H Calcium Level 8.7 MG/DL (8.5-10.1) Total Bilirubin 0.4 MG/DL (0.2-1.0) Aspartate Amino Transf (AST/SGOT) 15 U/L (15-37) Alanine Aminotransferase (ALT/SGPT) 19 U/L (12-78) Alkaline Phosphatase 109 U/L (46-116) Total Protein 6.2 G/DL (6.4-8.2) L Albumin 2.3 G/DL (3.4-5.0) L Globulin 3.9 g/dL Albumin/Globulin Ratio 0.6 (1.0-2.7) L Impression/Recommendations Problems: (1) Altered level of consciousness Assessment & Plan: CT 11/22/18: Chronic and age-related changes is noted. 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 Aware of location, person and situation. Date is inconsistent. (10) Chronic cerebrovascular accident (CVA) Assessment & Plan: CT Brain w/o contrast : 11/22/18 Chronic and age-related changes is noted. 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 Status: unchanged Recommendations PT/OT and Dispo planning Stable for discharge from a neurological perspective. Bailey Appiah N.P. December 08, 2018 23:25
[2018-12-09] VITALS: BP 124/54
[2018-12-09 04:00] VITALS: BP 139/58
[2018-12-09] MEDS: D5 1/2NS 1,000 ML IV SCH ×2 (05:16→17:19)
[2018-12-09] MEDS: NovoLOG Insulin Flexpen SUBQ SCH ×4 (05:52→21:07)
--- NOTE | 2018-12-09 06:52 | General Progress Note ---
Assessment/Plan Problem List: (1) Acute metabolic encephalopathy ICD Codes: G93.41 - Metabolic encephalopathy SNOMED: 12549885, 735338908 (2) Hyperthyroidism ICD Codes: E05.90 - Thyrotoxicosis, unspecified without thyrotoxic crisis or storm SNOMED: 58791143 (3) Diabetes mellitus ICD Codes: E11.9 - Type 2 diabetes mellitus without complications SNOMED: 11498455 (4) Bladder neoplasm ICD Codes: D49.4 - Neoplasm of unspecified behavior of bladder SNOMED: 588969367 (5) Hydronephrosis ICD Codes: N13.30 - Unspecified hydronephrosis SNOMED: 91465128 Status: unchanged Assessment/Plan: thyroid function improved on Tapazole TSI pending continue Tapazole 10 mg daily continue Starlix 120 mg ac tid continue NISS ac / hs Subjective Allergies: Coded Allergies: No Known Allergies (Unverified , 04/09/16) All Systems: reviewed and negative except above Subjective events noted Item Value Date Time Bedside Blood Glucose 125 mg/dl H 12/09/18 0607 Bedside Blood Glucose 124 mg/dl H 12/08/18 2100 Bedside Blood Glucose 255 mg/dl H 12/08/18 1647 Bedside Blood Glucose 135 mg/dl H 12/08/18 1200 Bedside Blood Glucose 150 mg/dl H 12/08/18 0614 Objective Last 24 Hour Vital Signs Date Time Temp Pulse Resp B/P (MAP) Pulse Ox O2 Delivery O2 Flow Rate FiO2 12/09/18 04:05 Room Air 12/09/18 04:00 97.6 61 17 139/58 (85) 100 12/09/18 00:25 99.1 12/09/18 00:00 98.4 62 18 124/54 (77) 100 12/08/18 21:00 Room Air 12/08/18 20:00 99.1 67 17 122/59 (80) 99 12/08/18 18:00 114/54 12/08/18 16:00 98.1 101 18 114/54 (74) 98 12/08/18 12:00 98.6 66 16 124/64 (84) 100 12/08/18 09:00 Room Air 12/08/18 08:32 60 117/55 12/08/18 08:32 117/55 12/08/18 08:00 98.2 60 14 117/55 (75) 100 Intake and Output 12/08/18 12/09/18 19:00 07:00 Intake Total 1305 ml Output Total 600 ml 2475 ml Balance 705 ml -2475 ml Intake Oral 480 ml IV Total 825 ml Output Urine Total 600 ml 1250 ml Other 1225 ml # Voids 1 # Bowel Movements 2 Height (Feet): 6 Height (Inches): 6.00 Weight (Pounds): 176 General Appearance: no apparent distress Neck: normal alignment Cardiovascular: normal rate Respiratory/Chest: lungs clear Abdomen: normal bowel sounds Objective Current Medications Medications (Trade) Dose Ordered Sig/Levi Route PRN Reason Start Time Stop Time Status Last Admin Dose Admin Acetaminophen (Tylenol) 650 mg Q4H PRN ORAL fever 11/22/18 13:30 12/22/18 13:29 12/08/18 23:55 Al Hydroxide/Mg Hydroxide (Mylanta II) 30 ml Q6H PRN ORAL dyspepsia 11/22/18 13:30 12/22/18 13:29 Amlodipine Besylate (Norvasc) 2.5 mg DAILY ORAL 11/29/18 09:00 12/29/18 08:59 12/06/18 08:16 Dextrose (Dextrose 50%) 25 ml Q30M PRN IV Hypoglycemia 11/22/18 13:30 12/22/18 13:23 11/22/18 17:21 Dextrose (Dextrose 50%) 50 ml Q30M PRN IV hypoglycemia 11/22/18 13:30 12/22/18 13:29 Dextrose/Sodium Chloride 1,000 ml @ 75 mls/hr [id number] IV 11/22/18 13:16 12/22/18 13:15 12/09/18 05:16 Diphenhydramine HCl (Benadryl) 25 mg Q6H PRN ORAL Itching/Pruritis 11/22/18 13:30 12/22/18 13:29 Finasteride (Proscar) 5 mg DAILY ORAL 11/22/18 19:45 12/22/18 19:44 12/08/18 08:31 Hydralazine HCl (Apresoline) 50 mg Q6H PRN ORAL SBP > 160 11/22/18 17:30 12/22/18 17:29 12/06/18 20:59 Insulin Aspart (NovoLOG) BEFORE MEALS AND HS SUBQ 11/22/18 16:30 12/22/18 16:29 12/09/18 05:52 Iopamidol (Isovue-300 100ml) 200 ml NOW PRN INJ Radiology Procedure 12/06/18 08:15 12/09/18 08:13 Irbesartan (Avapro) 150 mg BID ORAL 11/25/18 09:00 12/25/18 08:59 12/06/18 18:18 Iron Sucrose 100 mg/Sodium Chloride 60 ml @ 240 mls/hr BEDTIME IV 12/07/18 21:00 12/11/18 21:14 12/08/18 20:32 Methimazole (Tapazole) 10 mg DAILY ORAL 11/29/18 09:00 12/24/18 08:59 12/08/18 08:31 Nateglinide (Starlix) 120 mg TIAC ORAL 11/29/18 11:30 12/24/18 11:29 12/09/18 05:50 Nitroglycerin (Ntg) 0.4 mg Q5M X 3 DOSES PRN SL Prn Chest Pain 11/22/18 13:30 12/22/18 13:29 Ondansetron HCl (Zofran) 4 mg Q6H PRN IVP Nausea & Vomiting 11/22/18 13:30 12/22/18 13:29 Pantoprazole (Protonix) 40 mg DAILY ORAL 12/05/18 09:00 12/24/18 20:59 12/08/18 08:31 Polyethylene Glycol (Miralax) 17 gm HSPRN PRN ORAL Constipation 11/22/18 13:30 12/22/18 13:29 12/04/18 21:38 Tamsulosin HCl (Flomax) 0.4 mg BEDTIME ORAL 11/22/18 21:00 12/22/18 20:59 12/08/18 20:32 Temazepam (Restoril) 15 mg HSPRN PRN ORAL Insomnia 12/05/18 10:00 12/12/18 09:59 12/06/18 20:58 Kashif Adorno MD December 09, 2018 06:52
--- NOTE | 2018-12-09 07:40 | NUR ---
HAND-OFF: Report given to DONELL Viveros.
[2018-12-09 07:45] LABS: BASOPHILS % (AUTO) 1.4 % (0.0-2.0); EOSINOPHILS % (AUTO) 0.1 % (0.0-3.0); HEMATOCRIT 30.7 % (42.0-52.0); HEMOGLOBIN 10.3 G/DL (14.2-18.0); LYMPHOCYTES % (AUTO) 10.7 % (20.0-45.0); MEAN CORPUSCULAR VOLUME 89 FL (80-99); MONOCYTES % (AUTO) 9.2 % (1.0-10.0); NEUTROPHILS % (AUTO) 78.7 % (45.0-75.0); PLATELET COUNT 170 K/UL (150-450); RED BLOOD COUNT 3.44 M/UL (4.70-6.10); RED CELL DISTRIBUTION WIDTH 10.9 % (11.6-14.8); WHITE BLOOD COUNT 9.1 K/UL (4.8-10.8)
[2018-12-09 08:00] VITALS: BP 108/53
[2018-12-09 08:18] LABS: ANION GAP 7 mmol/L (5-15); BLOOD UREA NITROGEN 17 mg/dL (7-18); CALCIUM 8.3 MG/DL (8.5-10.1); CARBON DIOXIDE 25 MMOL/L (21-32); CHLORIDE 104 MMOL/L (98-107); CREATININE 1.1 MG/DL (0.55-1.30); POTASSIUM 3.8 MMOL/L (3.5-5.1); SODIUM 136 MMOL/L (136-145)
--- NOTE | 2018-12-09 08:42 | NUR ---
NURSE NOTES: Patient is resting in bed. Side rails are up x2, side rails are padded, bed is locked, and in lowest position. Left nephrostomy is patent and draining. Patient has no reports of discomfort at the moment. Will continue to monitor.
[2018-12-09] MEDS: Irbesartan 150mg tablet ORAL SCH ×2 (09:00→17:20)
--- NOTE | 2018-12-09 09:41 | Urology Progress Note ---
Assessment/Plan Status: unchanged Assessment/Plan: 1. Left hydronephrosis. 2. Hematuria. 3. Pyuria. 4. Proteinuria. 5. Benign prostatic hypertrophy. 6. Incontinence. 7. Neurogenic bladder. 8. Cystitis. 9. Bladder cancer. 10. POD # 15, cysto/TURBT monitor clinically hernandez out and voiding left hydro secondary to bladder tumor left nephrostomy placed 11/26, keep off suction hand irrigate PRN unable to place antegrade ureteral stent flomax and proscar monitor for voiding and reinsert hernandez PRN s/p diflucan med onc eval IR to reattempt antegrade stent Subjective Allergies: Coded Allergies: No Known Allergies (Unverified , 04/09/16) Subjective all noted, feels fair, voiding, awaiting procedure by IR, issues with consent Objective Last 24 Hour Vital Signs Date Time Temp Pulse Resp B/P (MAP) Pulse Ox O2 Delivery O2 Flow Rate FiO2 12/09/18 09:29 64 108/53 12/09/18 09:00 108/53 12/09/18 04:05 Room Air 12/09/18 04:00 97.6 61 17 139/58 (85) 100 12/09/18 00:25 99.1 12/09/18 00:00 98.4 62 18 124/54 (77) 100 12/08/18 21:00 Room Air 12/08/18 20:00 99.1 67 17 122/59 (80) 99 12/08/18 18:00 114/54 12/08/18 16:00 98.1 101 18 114/54 (74) 98 12/08/18 12:00 98.6 66 16 124/64 (84) 100 Intake and Output 12/08/18 12/09/18 19:00 07:00 Intake Total 1305 ml Output Total 600 ml 2475 ml Balance 705 ml -2475 ml Intake Oral 480 ml IV Total 825 ml Output Urine Total 600 ml 1250 ml Other 1225 ml # Voids 1 # Bowel Movements 2 Microbiology Date/Time Source Procedure Growth Status 11/22/18 12:20 Nasal Nares MRSA Culture - Final NO METHICILLIN RESISTANT STAPH AUREUS... Complete 11/22/18 11:15 Urine,Clean Catch Urine Culture - Final YEAST Complete 11/22/18 12:20 Rectal Mucosa VRE Culture - Final NO VANCOMYCIN RESISTANT ENTEROCOCCUS ... Complete 11/22/18 12:20 Rectal Mucosa - Final NO CARBAPENEM-RESISTANT ENTEROBACTERI... Complete Current Medications Medications (Trade) Dose Ordered Sig/Levi Route PRN Reason Start Time Stop Time Status Last Admin Dose Admin Acetaminophen (Tylenol) 650 mg Q4H PRN ORAL fever 11/22/18 13:30 12/22/18 13:29 12/08/18 23:55 Al Hydroxide/Mg Hydroxide (Mylanta II) 30 ml Q6H PRN ORAL dyspepsia 11/22/18 13:30 12/22/18 13:29 Amlodipine Besylate (Norvasc) 2.5 mg DAILY ORAL 11/29/18 09:00 12/29/18 08:59 12/09/18 09:29 Dextrose (Dextrose 50%) 25 ml Q30M PRN IV Hypoglycemia 11/22/18 13:30 12/22/18 13:23 11/22/18 17:21 Dextrose (Dextrose 50%) 50 ml Q30M PRN IV hypoglycemia 11/22/18 13:30 12/22/18 13:29 Dextrose/Sodium Chloride 1,000 ml @ 75 mls/hr [id number] IV 11/22/18 13:16 12/22/18 13:15 12/09/18 05:16 Diphenhydramine HCl (Benadryl) 25 mg Q6H PRN ORAL Itching/Pruritis 11/22/18 13:30 12/22/18 13:29 Finasteride (Proscar) 5 mg DAILY ORAL 11/22/18 19:45 12/22/18 19:44 12/09/18 09:30 Hydralazine HCl (Apresoline) 50 mg Q6H PRN ORAL SBP > 160 11/22/18 17:30 12/22/18 17:29 12/06/18 20:59 Insulin Aspart (NovoLOG) BEFORE MEALS AND HS SUBQ 11/22/18 16:30 12/22/18 16:29 12/09/18 05:52 Irbesartan (Avapro) 150 mg BID ORAL 11/25/18 09:00 12/25/18 08:59 12/06/18 18:18 Iron Sucrose 100 mg/Sodium Chloride 60 ml @ 240 mls/hr BEDTIME IV 12/07/18 21:00 12/11/18 21:14 12/08/18 20:32 Methimazole (Tapazole) 10 mg DAILY ORAL 11/29/18 09:00 12/24/18 08:59 12/09/18 09:29 Nateglinide (Starlix) 120 mg TIAC ORAL 11/29/18 11:30 12/24/18 11:29 12/09/18 05:50 Nitroglycerin (Ntg) 0.4 mg Q5M X 3 DOSES PRN SL Prn Chest Pain 11/22/18 13:30 12/22/18 13:29 Ondansetron HCl (Zofran) 4 mg Q6H PRN IVP Nausea & Vomiting 11/22/18 13:30 12/22/18 13:29 Pantoprazole (Protonix) 40 mg DAILY ORAL 12/05/18 09:00 12/24/18 20:59 12/09/18 09:30 Polyethylene Glycol (Miralax) 17 gm HSPRN PRN ORAL Constipation 11/22/18 13:30 12/22/18 13:29 12/04/18 21:38 Tamsulosin HCl (Flomax) 0.4 mg BEDTIME ORAL 11/22/18 21:00 12/22/18 20:59 12/08/18 20:32 Temazepam (Restoril) 15 mg HSPRN PRN ORAL Insomnia 12/05/18 10:00 12/12/18 09:59 12/06/18 20:58 Laboratory Tests 12/09/18 06:58: White Blood Count 9.1, Red Blood Count 3.44L, Hemoglobin 10.3L, Hematocrit 30.7L , Mean Corpuscular Volume 89, Mean Corpuscular Hemoglobin 30.0, Mean Corpuscular Hemoglobin Concent 33.6, Red Cell Distribution Width 10.9L, Platelet Count 170, Mean Platelet Volume 5.9L, Neutrophils (%) (Auto) 78.7H, Lymphocytes (%) (Auto) 10.7L, Monocytes (%) (Auto) 9.2, Eosinophils (%) (Auto) 0.1, Basophils (%) (Auto) 1.4, Sodium Level 136, Potassium Level 3.8, Chloride Level 104, Carbon Dioxide Level 25, Anion Gap 7, Blood Urea Nitrogen 17, Creatinine 1.1, Estimat Glomerular Filtration Rate , Glucose Level 405#H, Calcium Level 8.3L Height (Feet): 6 Height (Inches): 6.00 Weight (Pounds): 176 Objective exam stable left nephrostomy output clearing final path noted Macho Allen MD December 09, 2018 09:41
--- NOTE | 2018-12-09 11:32 | GI Progress Note ---
Assessment/Plan Problems: (1) Lower GI bleed ICD Codes: K92.2 - Gastrointestinal hemorrhage, unspecified SNOMED: 29888258 (2) Anemia ICD Codes: D64.9 - Anemia, unspecified SNOMED: 112622317 (3) Bleeding hemorrhoid ICD Codes: K64.9 - Unspecified hemorrhoids SNOMED: 36311806 (4) Alzheimer's dementia ICD Codes: G30.9 - Alzheimer's disease, unspecified; F02.80 - Dementia in other diseases classified elsewhere without behavioral disturbance SNOMED: 41255349 (5) Diabetes mellitus ICD Codes: E11.9 - Type 2 diabetes mellitus without complications SNOMED: 85705945 Status: stable Status Narrative Discussed with Dr. Hernandez. Assessment/Plan SUMMARY OF FINDINGS: 1. Gastritis and possibly gastric ulceration, status post biopsy. 2. One colonic polyp removed, see above for details. 3. Internal hemorrhoids. Occult blood stool negative Patient passed video swallow RECOMMENDATIONS: Follow-up urology recommendations Follow up pathology. >> H. pylori negative Resume diet. monitor H&H, prn transfusions bowel regime ppi fu labs The patient was seen and examined at bedside and all new and available data was reviewed in the patients chart. I agree with the above findings, impression and plan. (Patient seen earlier today. Signature stamp does not reflect patient encounter time.). - Prince Hernandez MD Subjective Subjective Limited Objective Last 24 Hour Vital Signs Date Time Temp Pulse Resp B/P (MAP) Pulse Ox O2 Delivery O2 Flow Rate FiO2 12/09/18 09:29 64 108/53 12/09/18 09:00 108/53 12/09/18 04:05 Room Air 12/09/18 04:00 97.6 61 17 139/58 (85) 100 12/09/18 00:25 99.1 12/09/18 00:00 98.4 62 18 124/54 (77) 100 12/08/18 21:00 Room Air 12/08/18 20:00 99.1 67 17 122/59 (80) 99 12/08/18 18:00 114/54 12/08/18 16:00 98.1 101 18 114/54 (74) 98 12/08/18 12:00 98.6 66 16 124/64 (84) 100 Intake and Output 12/08/18 12/09/18 19:00 07:00 Intake Total 1305 ml Output Total 600 ml 2475 ml Balance 705 ml -2475 ml Intake Oral 480 ml IV Total 825 ml Output Urine Total 600 ml 1250 ml Other 1225 ml # Voids 1 # Bowel Movements 2 Laboratory Tests Test 12/09/18 06:58 White Blood Count 9.1 K/UL (4.8-10.8) Red Blood Count 3.44 M/UL (4.70-6.10) L Hemoglobin 10.3 G/DL (14.2-18.0) L Hematocrit 30.7 % (42.0-52.0) L Mean Corpuscular Volume 89 FL (80-99) Mean Corpuscular Hemoglobin 30.0 PG (27.0-31.0) Mean Corpuscular Hemoglobin Concent 33.6 G/DL (32.0-36.0) Red Cell Distribution Width 10.9 % (11.6-14.8) L Platelet Count 170 K/UL (150-450) Mean Platelet Volume 5.9 FL (6.5-10.1) L Neutrophils (%) (Auto) 78.7 % (45.0-75.0) H Lymphocytes (%) (Auto) 10.7 % (20.0-45.0) L Monocytes (%) (Auto) 9.2 % (1.0-10.0) Eosinophils (%) (Auto) 0.1 % (0.0-3.0) Basophils (%) (Auto) 1.4 % (0.0-2.0) Sodium Level 136 MMOL/L (136-145) Potassium Level 3.8 MMOL/L (3.5-5.1) Chloride Level 104 MMOL/L (98-107) Carbon Dioxide Level 25 MMOL/L (21-32) Anion Gap 7 mmol/L (5-15) Blood Urea Nitrogen 17 mg/dL (7-18) Creatinine 1.1 MG/DL (0.55-1.30) Estimat Glomerular Filtration Rate mL/min (>60) Glucose Level 405 MG/DL (74-106) #H Calcium Level 8.3 MG/DL (8.5-10.1) L Height (Feet): 6 Height (Inches): 6.00 Weight (Pounds): 176 General Appearance: WD/WN, no apparent distress, alert Cardiovascular: normal rate Respiratory/Chest: normal breath sounds, no respiratory distress Abdominal Exam: normal bowel sounds, non tender, soft Extremities: non-tender Osiel Vega NP December 09, 2018 11:32
[2018-12-09 12:00] VITALS: BP 130/60
--- NOTE | 2018-12-09 12:38 | Pulmonology Progress Note ---
Assessment/Plan Problems: (1) Lower GI bleed (2) Hydronephrosis (3) Anemia (4) Bladder neoplasm (5) Chronic cerebrovascular accident (CVA) (6) Diabetes mellitus (7) Alzheimer's dementia (8) HTN (hypertension) Assessment/Plan clear urine from nephrostomy no new complains nephrostomy in place. tolerated cystoscopy follow up with pathology, still not available. looks comfortable sliding scale monitor bp f/u urology recommendations prbc prn check H/H dvt prophylaxis. Subjective ROS Limited/Unobtainable: No Constitutional: Reports: no symptoms Respiratory: Reports: no symptoms Allergies: Coded Allergies: No Known Allergies (Unverified , 04/09/16) Objective Last 24 Hour Vital Signs Date Time Temp Pulse Resp B/P (MAP) Pulse Ox O2 Delivery O2 Flow Rate FiO2 12/09/18 09:29 64 108/53 12/09/18 09:00 108/53 12/09/18 08:15 Room Air 12/09/18 08:00 97.8 64 18 108/53 (71) 98 12/09/18 04:05 Room Air 12/09/18 04:00 97.6 61 17 139/58 (85) 100 12/09/18 00:25 99.1 12/09/18 00:00 98.4 62 18 124/54 (77) 100 12/08/18 21:00 Room Air 12/08/18 20:00 99.1 67 17 122/59 (80) 99 12/08/18 18:00 114/54 12/08/18 16:00 98.1 101 18 114/54 (74) 98 Intake and Output 12/08/18 12/09/18 19:00 07:00 Intake Total 1305 ml Output Total 600 ml 2475 ml Balance 705 ml -2475 ml Intake Oral 480 ml IV Total 825 ml Output Urine Total 600 ml 1250 ml Other 1225 ml # Voids 1 # Bowel Movements 2 Objective nephrostomy still draining blood tinged urine, but less than previous day General Appearance: WD/WN HEENT: normocephalic, atraumatic Cardiovascular: normal peripheral pulses, normal rate Abdomen: normal bowel sounds, soft, non tender Genitourinary: normal external genitalia Extremities: no clubbing Skin: no rash Laboratory Tests 12/09/18 06:58: White Blood Count 9.1, Red Blood Count 3.44L, Hemoglobin 10.3L, Hematocrit 30.7L , Mean Corpuscular Volume 89, Mean Corpuscular Hemoglobin 30.0, Mean Corpuscular Hemoglobin Concent 33.6, Red Cell Distribution Width 10.9L, Platelet Count 170, Mean Platelet Volume 5.9L, Neutrophils (%) (Auto) 78.7H, Lymphocytes (%) (Auto) 10.7L, Monocytes (%) (Auto) 9.2, Eosinophils (%) (Auto) 0.1, Basophils (%) (Auto) 1.4, Sodium Level 136, Potassium Level 3.8, Chloride Level 104, Carbon Dioxide Level 25, Anion Gap 7, Blood Urea Nitrogen 17, Creatinine 1.1, Estimat Glomerular Filtration Rate , Glucose Level 405#H, Calcium Level 8.3L Current Medications Medications (Trade) Dose Ordered Sig/Levi Route PRN Reason Start Time Stop Time Status Last Admin Dose Admin Acetaminophen (Tylenol) 650 mg Q4H PRN ORAL fever 11/22/18 13:30 12/22/18 13:29 12/08/18 23:55 Al Hydroxide/Mg Hydroxide (Mylanta II) 30 ml Q6H PRN ORAL dyspepsia 11/22/18 13:30 12/22/18 13:29 Amlodipine Besylate (Norvasc) 2.5 mg DAILY ORAL 11/29/18 09:00 12/29/18 08:59 12/09/18 09:29 Dextrose (Dextrose 50%) 25 ml Q30M PRN IV Hypoglycemia 11/22/18 13:30 12/22/18 13:23 11/22/18 17:21 Dextrose (Dextrose 50%) 50 ml Q30M PRN IV hypoglycemia 11/22/18 13:30 12/22/18 13:29 Dextrose/Sodium Chloride 1,000 ml @ 75 mls/hr [id number] IV 11/22/18 13:16 12/22/18 13:15 12/09/18 05:16 Diphenhydramine HCl (Benadryl) 25 mg Q6H PRN ORAL Itching/Pruritis 11/22/18 13:30 12/22/18 13:29 Finasteride (Proscar) 5 mg DAILY ORAL 11/22/18 19:45 12/22/18 19:44 5/2/19 09:30 Hydralazine HCl (Apresoline) 50 mg Q6H PRN ORAL SBP > 160 11/22/18 17:30 12/22/18 17:29 12/06/18 20:59 Insulin Aspart (NovoLOG) BEFORE MEALS AND HS SUBQ 11/22/18 16:30 12/22/18 16:29 12/09/18 05:52 Irbesartan (Avapro) 150 mg BID ORAL 11/25/18 09:00 12/25/18 08:59 12/06/18 18:18 Iron Sucrose 100 mg/Sodium Chloride 60 ml @ 240 mls/hr BEDTIME IV 12/07/18 21:00 12/11/18 21:14 12/08/18 20:32 Methimazole (Tapazole) 10 mg DAILY ORAL 11/29/18 09:00 12/24/18 08:59 12/09/18 09:29 Nateglinide (Starlix) 120 mg TIAC ORAL 11/29/18 11:30 12/24/18 11:29 12/09/18 05:50 Nitroglycerin (Ntg) 0.4 mg Q5M X 3 DOSES PRN SL Prn Chest Pain 11/22/18 13:30 12/22/18 13:29 Ondansetron HCl (Zofran) 4 mg Q6H PRN IVP Nausea & Vomiting 11/22/18 13:30 12/22/18 13:29 Pantoprazole (Protonix) 40 mg DAILY ORAL 12/05/18 09:00 12/24/18 20:59 12/09/18 09:30 Polyethylene Glycol (Miralax) 17 gm HSPRN PRN ORAL Constipation 11/22/18 13:30 12/22/18 13:29 12/04/18 21:38 Tamsulosin HCl (Flomax) 0.4 mg BEDTIME ORAL 11/22/18 21:00 12/22/18 20:59 12/08/18 20:32 Temazepam (Restoril) 15 mg HSPRN PRN ORAL Insomnia 12/05/18 10:00 12/12/18 09:59 12/06/18 20:58 Og Hinkle MD December 09, 2018 12:37
--- NOTE | 2018-12-09 13:26 | Infectious Diseases Prog Note ---
Assessment/Plan Assessment/Plan Assessment: Hematochezia -11/24 SP EGD/Colonoscopy: gastritis, hemorrhoids L hydronephrosis/L Hydroureter 2ry to extensive bladder tumor -11/25 SP Cystoscopy, urethral calibration, transurethral resection of extensive bladder tumor with fulguration, and right retrograde pyelogram. -Findings: The patient had what appeared to be a large bladder tumor that involved most of the left side of the bladder extending posteriorly and completely obliterating the left ureteral orifice. I was unable to place a stent on the left side. - -CT abd/p: Limited assessment of the GI tract, due to lack of enteric contrast administration. Moderate left hydronephrosis and hydroureter. Hydroureter extends to the bladder, where there is asymmetric posterolateral wall thickening raises concern for neoplasm. Further evaluation with cystoscopy should be considered. There is also generalized wall thickening, possibly on the basis of cystitis or chronic bladder outlet obstruction. No definite findings to suggest etiology of stated clinical history of GI bleed. Cholelithiasis. Basilar pulmonary atelectasis and equivocal slight interstitial congestion. L1 vertebral body compression fracture deformity, age indeterminate. Consider MRI for further evaluation if this is clinically relevant Afebrile leukocytosis , sp -CXR: No acute process Pyuria Funguria -u/a wbc 10-15, nit +, leuk est +3; ucx <10 yeast Encephalopathy -Head CT: Chronic and age-related changes is noted. Negative for acute intracranial bleed or mass effect. 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 Dementia HTN BPH urinary incontinence AV dissociation w/ conduction s/p PPM metabolic encephalopathy UTI seizure disorders Plan: - Monitor off abx - 11/27/18 SP Ceftriaxone #5/5 (will continue post-urologic procedure) and PO Fluconazole #3/3 -Monitor CBC/CMP -GI, Uro f/u -aspiration precautions Subjective Allergies: Coded Allergies: No Known Allergies (Unverified , 04/09/16) Subjective comfortable Objective Vital Signs Last 24 Hour Vital Signs Date Time Temp Pulse Resp B/P (MAP) Pulse Ox O2 Delivery O2 Flow Rate FiO2 12/09/18 09:29 64 108/53 12/09/18 09:00 108/53 12/09/18 08:15 Room Air 12/09/18 08:00 97.8 64 18 108/53 (71) 98 12/09/18 04:05 Room Air 12/09/18 04:00 97.6 61 17 139/58 (85) 100 12/09/18 00:25 99.1 12/09/18 00:00 98.4 62 18 124/54 (77) 100 12/08/18 21:00 Room Air 12/08/18 20:00 99.1 67 17 122/59 (80) 99 12/08/18 18:00 114/54 12/08/18 16:00 98.1 101 18 114/54 (74) 98 Height (Feet): 6 Height (Inches): 6.00 Weight (Pounds): 176 HEENT: atraumatic Respiratory/Chest: no respiratory distress Cardiovascular: regularly irregular Abdomen: no organomegaly Laboratory Tests Test 12/09/18 06:58 White Blood Count 9.1 K/UL (4.8-10.8) Red Blood Count 3.44 M/UL (4.70-6.10) L Hemoglobin 10.3 G/DL (14.2-18.0) L Hematocrit 30.7 % (42.0-52.0) L Mean Corpuscular Volume 89 FL (80-99) Mean Corpuscular Hemoglobin 30.0 PG (27.0-31.0) Mean Corpuscular Hemoglobin Concent 33.6 G/DL (32.0-36.0) Red Cell Distribution Width 10.9 % (11.6-14.8) L Platelet Count 170 K/UL (150-450) Mean Platelet Volume 5.9 FL (6.5-10.1) L Neutrophils (%) (Auto) 78.7 % (45.0-75.0) H Lymphocytes (%) (Auto) 10.7 % (20.0-45.0) L Monocytes (%) (Auto) 9.2 % (1.0-10.0) Eosinophils (%) (Auto) 0.1 % (0.0-3.0) Basophils (%) (Auto) 1.4 % (0.0-2.0) Sodium Level 136 MMOL/L (136-145) Potassium Level 3.8 MMOL/L (3.5-5.1) Chloride Level 104 MMOL/L (98-107) Carbon Dioxide Level 25 MMOL/L (21-32) Anion Gap 7 mmol/L (5-15) Blood Urea Nitrogen 17 mg/dL (7-18) Creatinine 1.1 MG/DL (0.55-1.30) Estimat Glomerular Filtration Rate mL/min (>60) Glucose Level 405 MG/DL (74-106) #H Calcium Level 8.3 MG/DL (8.5-10.1) L Current Medications Medications (Trade) Dose Ordered Sig/Levi Route PRN Reason Start Time Stop Time Status Last Admin Dose Admin Acetaminophen (Tylenol) 650 mg Q4H PRN ORAL fever 11/22/18 13:30 12/22/18 13:29 12/08/18 23:55 Al Hydroxide/Mg Hydroxide (Mylanta II) 30 ml Q6H PRN ORAL dyspepsia 11/22/18 13:30 12/22/18 13:29 Amlodipine Besylate (Norvasc) 2.5 mg DAILY ORAL 11/29/18 09:00 12/29/18 08:59 12/09/18 09:29 Dextrose (Dextrose 50%) 25 ml Q30M PRN IV Hypoglycemia 11/22/18 13:30 12/22/18 13:23 11/22/18 17:21 Dextrose (Dextrose 50%) 50 ml Q30M PRN IV hypoglycemia 11/22/18 13:30 12/22/18 13:29 Dextrose/Sodium Chloride 1,000 ml @ 75 mls/hr [id number] IV 11/22/18 13:16 12/22/18 13:15 12/09/18 05:16 Diphenhydramine HCl (Benadryl) 25 mg Q6H PRN ORAL Itching/Pruritis 11/22/18 13:30 12/22/18 13:29 Finasteride (Proscar) 5 mg DAILY ORAL 11/22/18 19:45 12/22/18 19:44 12/09/18 09:30 Hydralazine HCl (Apresoline) 50 mg Q6H PRN ORAL SBP > 160 11/22/18 17:30 12/22/18 17:29 12/06/18 20:59 Insulin Aspart (NovoLOG) BEFORE MEALS AND HS SUBQ 11/22/18 16:30 12/22/18 16:29 12/09/18 05:52 Irbesartan (Avapro) 150 mg BID ORAL 11/25/18 09:00 12/25/18 08:59 12/06/18 18:18 Iron Sucrose 100 mg/Sodium Chloride 60 ml @ 240 mls/hr BEDTIME IV 12/07/18 21:00 12/11/18 21:14 12/08/18 20:32 Methimazole (Tapazole) 10 mg DAILY ORAL 11/29/18 09:00 12/24/18 08:59 12/09/18 09:29 Nateglinide (Starlix) 120 mg TIAC ORAL 11/29/18 11:30 12/24/18 11:29 12/09/18 05:50 Nitroglycerin (Ntg) 0.4 mg Q5M X 3 DOSES PRN SL Prn Chest Pain 11/22/18 13:30 12/22/18 13:29 Ondansetron HCl (Zofran) 4 mg Q6H PRN IVP Nausea & Vomiting 11/22/18 13:30 12/22/18 13:29 Pantoprazole (Protonix) 40 mg DAILY ORAL 12/05/18 09:00 12/24/18 20:59 12/09/18 09:30 Polyethylene Glycol (Miralax) 17 gm HSPRN PRN ORAL Constipation 11/22/18 13:30 12/22/18 13:29 12/04/18 21:38 Tamsulosin HCl (Flomax) 0.4 mg BEDTIME ORAL 11/22/18 21:00 12/22/18 20:59 12/08/18 20:32 Temazepam (Restoril) 15 mg HSPRN PRN ORAL Insomnia 12/05/18 10:00 12/12/18 09:59 12/06/18 20:58 Khai Cordoba MD December 09, 2018 13:26
--- NOTE | 2018-12-09 13:51 | NUR ---
WEEKLY SWALLOW/SPEECH THERAPY SUMMARY: PATIENT SEEN FOR DYSPHAGIA, SEE SWALLOW EVAL AND MOD BARIUM SWALLOW STUDY REPORTS. PATIENT TOLERATING [facility] SOFT CHOPPED AND NECTAR THICK LIQUIDS WITH POSTED ASP PREC. GOALS VARIABLY MET FOR INTAKE 25/50/100%. GOALS FOR STAFF EDUCATED/TRAINED IN POSTED ASP PREC MET. PLAN: GIVEN SHE HAS NOT BEEN SEEN RECENTLY DUE TO SCHEDULE CONFLICTS. WILL CONTINUE WITH PLAN AND GOALS NOTED IN MOD BARIUM SWALLOW STUDY.
--- NOTE | 2018-12-09 14:46 | General Progress Note ---
Assessment/Plan Status: stable Assessment/Plan: Assessment and Recs: # Bladder cancer extensive stage, iintially with L hydronephrosis/L Hydroureter 2ry to extensive bladder tumor, that is extensive stage. 11/25 SP Cystoscopy, urethral calibration, transurethral resection of extensive bladder tumor with fulguration, and right retrograde pyelogram. Findings: The patient had what appeared to be a large bladder tumor that involved most of the left side of the bladder extending posteriorly and completely obliterating the left ureteral orifice. I was unable to place a stent on the left side. --> CT abd/p: Limited assessment of the GI tract, due to lack of enteric contrast administration. Moderate left hydronephrosis and hydroureter. Hydroureter extends to the bladder, where there is asymmetric posterolateral wall thickening raises concern for neoplasm. Further evaluation with cystoscopy should be considered. There is also generalized wall thickening, possibly on the basis of cystitis or chronic bladder outlet obstruction. No definite findings to suggest etiology of stated clinical history of GI bleed. Cholelithiasis. Basilar pulmonary atelectasis and equivocal slight interstitial congestion. L1 vertebral body compression fracture deformity, age indeterminate. --> discussed case with pathologist, obtain pdl1 testing of tumor --> appreciate urology recs, pulm recs --> per ir may attempt placement of urinary stent # Anemia due to lower GI bleed --> appreciate gi recs, reviewed endoscopy report # Anemia due iron deficiency due to hemorrhoid bleed --> iv iron started, continue x 5 days --> appreciate gi recs # Hydronephrosis # Chronic cerebrovascular accident (CVA) # Diabetes mellitus # Alzheimer's dementia # HTN (hypertension) The timing of this note does not necessarily reflect the time of the patient was seen. Greatly appreciate consultation! Subjective Constitutional: Denies: no symptoms, chills, diaphoresis, fever, malaise, weakness, other Cardiovascular: Denies: no symptoms, chest pain, edema, irregular heart rate, lightheadedness, palpitations, syncope, other Gastrointestinal/Abdominal: Denies: no symptoms, abdomen distended, abdominal pain, black stools, tarry stools, blood in stool, constipated, diarrhea, difficulty swallowing, nausea, poor appetite, poor fluid intake, rectal bleeding , vomiting, other Genitourinary: Denies: no symptoms, burning, discharge, frequency, flank pain, hematuria, incontinence, pain, urgency, other Endocrine: Denies: no symptoms, excessive sweating, flushing, intolerance to cold, intolerance to heat, increased hunger, increased thirst, increased urine, unexplained weight gain, unexplained weight loss, other Hematologic/Lymphatic: Denies: no symptoms, anemia, easy bleeding, easy bruising, other Allergies: Coded Allergies: No Known Allergies (Unverified , 04/09/16) Subjective 12/07: no events, bed-bound, has poor performance status, feeling weak, unable to get out of bed 12/08: no chills, fevers, awaiting final path report, urine clear 12/09: no events to report, anemia panel reviewed, path still pending Objective Last 24 Hour Vital Signs Date Time Temp Pulse Resp B/P (MAP) Pulse Ox O2 Delivery O2 Flow Rate FiO2 12/09/18 09:29 64 108/53 12/09/18 09:00 108/53 12/09/18 08:15 Room Air 12/09/18 08:00 97.8 64 18 108/53 (71) 98 12/09/18 04:05 Room Air 12/09/18 04:00 97.6 61 17 139/58 (85) 100 12/09/18 00:25 99.1 12/09/18 00:00 98.4 62 18 124/54 (77) 100 12/08/18 21:00 Room Air 12/08/18 20:00 99.1 67 17 122/59 (80) 99 12/08/18 18:00 114/54 12/08/18 16:00 98.1 101 18 114/54 (74) 98 Intake and Output 12/08/18 12/09/18 18:59 06:59 Intake Total 1305 ml Output Total 600 ml 2475 ml Balance 705 ml -2475 ml Intake Oral 480 ml IV Total 825 ml Output Urine Total 600 ml 1250 ml Other 1225 ml # Voids 1 # Bowel Movements 2 Laboratory Tests 12/09/18 06:58: White Blood Count 9.1, Red Blood Count 3.44L, Hemoglobin 10.3L, Hematocrit 30.7L , Mean Corpuscular Volume 89, Mean Corpuscular Hemoglobin 30.0, Mean Corpuscular Hemoglobin Concent 33.6, Red Cell Distribution Width 10.9L, Platelet Count 170, Mean Platelet Volume 5.9L, Neutrophils (%) (Auto) 78.7H, Lymphocytes (%) (Auto) 10.7L, Monocytes (%) (Auto) 9.2, Eosinophils (%) (Auto) 0.1, Basophils (%) (Auto) 1.4, Sodium Level 136, Potassium Level 3.8, Chloride Level 104, Carbon Dioxide Level 25, Anion Gap 7, Blood Urea Nitrogen 17, Creatinine 1.1, Estimat Glomerular Filtration Rate , Glucose Level 405#H, Calcium Level 8.3L Height (Feet): 6 Height (Inches): 6.00 Weight (Pounds): 176 Objective General Appearance: well appearing, no apparent distress, alert Head: normocephalic EENT: PERRL/EOMI, normal ENT inspection Neck: supple Respiratory: normal breath sounds, no respiratory distress Cardiovascular: normal rate Gastrointestinal: normal inspection, non tender, soft, normal bowel sounds, non -distended Genitourinary: deferred Musculoskeletal: normal inspection, back normal, other - upper extremity tremors ++ nephrostomy tube Neurologic: alert, responsive Psychiatric: judgement/insight normal Skin: normal inspection, normal color, no rash, warm/dry, palpation normal, well hydrated Lymphatic: normal inspection, no adenopathy Pierce Mcguire MD December 09, 2018 14:46
[2018-12-09 16:00] VITALS: BP 126/70
--- NOTE | 2018-12-09 18:02 | Internal Med Progress Note ---
Subjective Date of Service: December 09, 2018 Physician Name Peter,Jean-Claude Attending Physician Jaziel Lowe MD Current Medications Medications (Trade) Dose Ordered Sig/Levi Route PRN Reason Start Time Stop Time Status Last Admin Dose Admin Acetaminophen (Tylenol) 650 mg Q4H PRN ORAL fever 11/22/18 13:30 12/22/18 13:29 12/08/18 23:55 Al Hydroxide/Mg Hydroxide (Mylanta II) 30 ml Q6H PRN ORAL dyspepsia 11/22/18 13:30 12/22/18 13:29 Amlodipine Besylate (Norvasc) 2.5 mg DAILY ORAL 11/29/18 09:00 12/29/18 08:59 12/09/18 09:29 Dextrose (Dextrose 50%) 25 ml Q30M PRN IV Hypoglycemia 11/22/18 13:30 12/22/18 13:23 11/22/18 17:21 Dextrose (Dextrose 50%) 50 ml Q30M PRN IV hypoglycemia 11/22/18 13:30 12/22/18 13:29 Dextrose/Sodium Chloride 1,000 ml @ 75 mls/hr [id number] IV 11/22/18 13:16 12/22/18 13:15 12/09/18 17:19 Diphenhydramine HCl (Benadryl) 25 mg Q6H PRN ORAL Itching/Pruritis 11/22/18 13:30 12/22/18 13:29 Finasteride (Proscar) 5 mg DAILY ORAL 11/22/18 19:45 12/22/18 19:44 12/09/18 09:30 Hydralazine HCl (Apresoline) 50 mg Q6H PRN ORAL SBP > 160 11/22/18 17:30 12/22/18 17:29 12/06/18 20:59 Insulin Aspart (NovoLOG) BEFORE MEALS AND HS SUBQ 11/22/18 16:30 12/22/18 16:29 12/09/18 17:21 Irbesartan (Avapro) 150 mg BID ORAL 11/25/18 09:00 12/25/18 08:59 12/09/18 17:20 Iron Sucrose 100 mg/Sodium Chloride 60 ml @ 240 mls/hr BEDTIME IV 12/07/18 21:00 12/11/18 21:14 12/08/18 20:32 Methimazole (Tapazole) 10 mg DAILY ORAL 11/29/18 09:00 12/24/18 08:59 12/09/18 09:29 Nateglinide (Starlix) 120 mg TIAC ORAL 11/29/18 11:30 12/24/18 11:29 12/09/18 17:19 Nitroglycerin (Ntg) 0.4 mg Q5M X 3 DOSES PRN SL Prn Chest Pain 11/22/18 13:30 12/22/18 13:29 Ondansetron HCl (Zofran) 4 mg Q6H PRN IVP Nausea & Vomiting 11/22/18 13:30 12/22/18 13:29 Pantoprazole (Protonix) 40 mg DAILY ORAL 12/05/18 09:00 12/24/18 20:59 12/09/18 09:30 Polyethylene Glycol (Miralax) 17 gm HSPRN PRN ORAL Constipation 11/22/18 13:30 12/22/18 13:29 12/04/18 21:38 Tamsulosin HCl (Flomax) 0.4 mg BEDTIME ORAL 11/22/18 21:00 12/22/18 20:59 12/08/18 20:32 Temazepam (Restoril) 15 mg HSPRN PRN ORAL Insomnia 12/05/18 10:00 12/12/18 09:59 12/06/18 20:58 Allergies: Coded Allergies: No Known Allergies (Unverified , 04/09/16) ROS Limited/Unobtainable: No Constitutional: Reports: no symptoms HEENT: Reports: no symptoms Cardiovascular: Reports: no symptoms Respiratory: Reports: no symptoms Gastrointestinal/Abdominal: Reports: no symptoms Genitourinary: Reports: no symptoms 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: Reports: no symptoms Subjective 83 YO M admitted with gastrointestinal hemorrhage. S/P endoscopy and colonoscopy 11/24/18. S/P transurethral bladder tumor resection 11/24/18. S/P left nephrostomy 11/26/18. Cover for Lon Lowe Objective Last Vital Signs Date Time Temp Pulse Resp B/P (MAP) Pulse Ox O2 Delivery O2 Flow Rate FiO2 12/09/18 17:20 143/57 12/09/18 16:00 98.6 59 18 99 12/09/18 08:15 Room Air Laboratory Tests Test 12/09/18 06:58 White Blood Count 9.1 K/UL (4.8-10.8) Red Blood Count 3.44 M/UL (4.70-6.10) L Hemoglobin 10.3 G/DL (14.2-18.0) L Hematocrit 30.7 % (42.0-52.0) L Mean Corpuscular Volume 89 FL (80-99) Mean Corpuscular Hemoglobin 30.0 PG (27.0-31.0) Mean Corpuscular Hemoglobin Concent 33.6 G/DL (32.0-36.0) Red Cell Distribution Width 10.9 % (11.6-14.8) L Platelet Count 170 K/UL (150-450) Mean Platelet Volume 5.9 FL (6.5-10.1) L Neutrophils (%) (Auto) 78.7 % (45.0-75.0) H Lymphocytes (%) (Auto) 10.7 % (20.0-45.0) L Monocytes (%) (Auto) 9.2 % (1.0-10.0) Eosinophils (%) (Auto) 0.1 % (0.0-3.0) Basophils (%) (Auto) 1.4 % (0.0-2.0) Sodium Level 136 MMOL/L (136-145) Potassium Level 3.8 MMOL/L (3.5-5.1) Chloride Level 104 MMOL/L (98-107) Carbon Dioxide Level 25 MMOL/L (21-32) Anion Gap 7 mmol/L (5-15) Blood Urea Nitrogen 17 mg/dL (7-18) Creatinine 1.1 MG/DL (0.55-1.30) Estimat Glomerular Filtration Rate mL/min (>60) Glucose Level 405 MG/DL (74-106) #H Calcium Level 8.3 MG/DL (8.5-10.1) L Intake and Output 12/08/18 12/09/18 18:59 06:59 Intake Total 1305 ml Output Total 600 ml 2475 ml Balance 705 ml -2475 ml Intake Oral 480 ml IV Total 825 ml Output Urine Total 600 ml 1250 ml Other 1225 ml # Voids 1 # Bowel Movements 2 Objective PHYSICAL EXAMINATION: GENERAL: The patient is awake, alert, responsive, very pleasant, but forgetful. HEAD AND NECK: Pupils are reactive to light. Extraocular movements intact. Neck was supple. No JVD. LUNGS: Good air entry. No wheezing or rales. Left side of the chest has a pacemaker. ABDOMEN: Soft, nondistended, and nontender. Positive bowel sounds. EXTREMITIES: No cyanosis, clubbing, or edema. NEUROLOGIC: GARMENT FITTER II through XII grossly intact. Motor is 5/5 in all extremities. Gait was not assessed due to the patient's status. RECTAL/GENITOURINARY: Refused and deferred. Assessment/Plan Assessment/Plan ASSESSMENT: 1. Gastrointestinal bleed. 2. Anemia possible due to acute blood loss. 3. Hypokalemia. 4. Acute urinary tract infection. 5. Moderate left hydronephrosis with hydroureter. 6. Cardiac arrhythmia status post pacemaker. 7. Diabetes type 2. 8. Hypertension. 9. Gastritis 10. hemorrhoids 11. hematuria-Bladder cancer PLAN: 1. Admit the patient to medical floor. 2. We will follow up with the laboratory. 3. Clear liquid diet. 4. Gastrointestinal consultation with Dr. Hernandez. 5. Code status is Full Code at this time. 6. See Urology consultation, Dr. Allen S/P transurethral resection bladder tumor High grade urothelial carcinoma 7. S/P Esophagogastroduodenoscopy and colonoscopy 11/24/18. 8. We will follow up with urine culture and Cardiology consultation with Dr. Nj Valenzuela. 9. Protonix 40 mg BID and carafate 1 gm QID 10 See Oncology consult 11. Await Anterograde stent by interv radiology-see urology note. 12. Discharge planning Jean-Claude Peter MD December 09, 2018 18:02
--- NOTE | 2018-12-09 19:16 | NUR ---
HAND-OFF: Report given to DONELL Petty.
--- NOTE | 2018-12-09 19:45 | NUR ---
NURSE NOTES: PT IN BED. ON RA, NO SOB, NO ACUTE DISTRESS, DENIES PAIN. RFA IV INTACT, PATENT RUNNING FLUIDS. L nephrostomy draining well. BED IN LOWEST POSITION, LOCKED, bed ALARM ON. CALL LIGHT IN REACH. Will continue to monitor patient .
[2018-12-09 20:00] VITALS: BP 130/56
[2018-12-09] MEDS: Iron Sucrose 100 MG in NS 55 ML IV SCH (21:05)
[2018-12-09] MEDS: Tamsulosin 0.4mg cap ORAL SCH (21:06)
--- NOTE | 2018-12-09 23:37 | Neurology Progress Note ---
Interim History Interim History ROS Limited/Unobtainable: No Complaints: AMS Events: Stable neuro exam Objective Physical Exam Last Vital Signs Date Time Temp Pulse Resp B/P (MAP) Pulse Ox O2 Delivery O2 Flow Rate FiO2 12/09/18 20:00 99.7 62 18 130/56 (80) 99 12/09/18 08:15 Room Air Laboratory Tests Test 12/09/18 06:58 White Blood Count 9.1 K/UL (4.8-10.8) Red Blood Count 3.44 M/UL (4.70-6.10) L Hemoglobin 10.3 G/DL (14.2-18.0) L Hematocrit 30.7 % (42.0-52.0) L Mean Corpuscular Volume 89 FL (80-99) Mean Corpuscular Hemoglobin 30.0 PG (27.0-31.0) Mean Corpuscular Hemoglobin Concent 33.6 G/DL (32.0-36.0) Red Cell Distribution Width 10.9 % (11.6-14.8) L Platelet Count 170 K/UL (150-450) Mean Platelet Volume 5.9 FL (6.5-10.1) L Neutrophils (%) (Auto) 78.7 % (45.0-75.0) H Lymphocytes (%) (Auto) 10.7 % (20.0-45.0) L Monocytes (%) (Auto) 9.2 % (1.0-10.0) Eosinophils (%) (Auto) 0.1 % (0.0-3.0) Basophils (%) (Auto) 1.4 % (0.0-2.0) Sodium Level 136 MMOL/L (136-145) Potassium Level 3.8 MMOL/L (3.5-5.1) Chloride Level 104 MMOL/L (98-107) Carbon Dioxide Level 25 MMOL/L (21-32) Anion Gap 7 mmol/L (5-15) Blood Urea Nitrogen 17 mg/dL (7-18) Creatinine 1.1 MG/DL (0.55-1.30) Estimat Glomerular Filtration Rate mL/min (>60) Glucose Level 405 MG/DL (74-106) #H Calcium Level 8.3 MG/DL (8.5-10.1) L Impression/Recommendations Problems: (1) Altered level of consciousness Assessment & Plan: CT 11/22/18: Chronic and age-related changes is noted. 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 Aware of location, person and situation. Date is inconsistent. (10) Chronic cerebrovascular accident (CVA) Assessment & Plan: CT Brain w/o contrast : 11/22/18 Chronic and age-related changes is noted. 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 Status: stable Recommendations PT/OT and Dispo planning Stable for discharge from a neurological perspective. Bailey Appiah N.P. December 09, 2018 23:37
[2018-12-10] VITALS: BP 132/61
[2018-12-10 04:00] VITALS: BP 139/64
[2018-12-10] MEDS: NovoLOG Insulin Flexpen SUBQ SCH ×2 (05:52→11:30)
[2018-12-10] MEDS: D5 1/2NS 1,000 ML IV SCH (05:54)
--- NOTE | 2018-12-10 06:21 | General Progress Note ---
Assessment/Plan Problem List: (1) Acute metabolic encephalopathy ICD Codes: G93.41 - Metabolic encephalopathy SNOMED: 96961638, 052799263 (2) Hyperthyroidism ICD Codes: E05.90 - Thyrotoxicosis, unspecified without thyrotoxic crisis or storm SNOMED: 17259355 (3) Diabetes mellitus ICD Codes: E11.9 - Type 2 diabetes mellitus without complications SNOMED: 84074212 (4) Bladder neoplasm ICD Codes: D49.4 - Neoplasm of unspecified behavior of bladder SNOMED: 591915197 (5) Hydronephrosis ICD Codes: N13.30 - Unspecified hydronephrosis SNOMED: 19650676 Status: stable Assessment/Plan: thyroid function improved on Tapazole TSI pending continue Tapazole 10 mg daily continue Starlix 120 mg ac tid continue NISS ac / hs Subjective Allergies: Coded Allergies: No Known Allergies (Unverified , 04/09/16) All Systems: reviewed and negative except above Subjective events noted Item Value Date Time Bedside Blood Glucose 153 mg/dl H 12/10/18 0552 Bedside Blood Glucose 155 mg/dl H 12/09/18 2107 Bedside Blood Glucose 146 mg/dl H 12/09/18 1721 Bedside Blood Glucose 168 mg/dl H 12/09/18 1422 Bedside Blood Glucose 125 mg/dl H 12/09/18 0607 Objective Last 24 Hour Vital Signs Date Time Temp Pulse Resp B/P (MAP) Pulse Ox O2 Delivery O2 Flow Rate FiO2 12/10/18 04:00 99.1 61 18 139/64 (89) 100 12/10/18 01:46 Room Air 12/10/18 00:00 98.7 61 20 132/61 (84) 100 12/09/18 21:00 Room Air 12/09/18 20:00 99.7 62 18 130/56 (80) 99 12/09/18 17:20 143/57 12/09/18 16:00 98.6 59 18 126/70 (88) 99 12/09/18 12:00 97.5 61 18 130/60 (83) 99 12/09/18 09:29 64 108/53 12/09/18 09:00 108/53 12/09/18 08:15 Room Air 12/09/18 08:00 97.8 64 18 108/53 (71) 98 Intake and Output 12/09/18 12/10/18 19:00 07:00 Intake Total 900 ml Output Total 1250 ml Balance 900 ml -1250 ml Other 900 ml Output Urine Total 350 ml Other 900 ml # Bowel Movements 1 Laboratory Tests 12/09/18 06:58: White Blood Count 9.1, Red Blood Count 3.44L, Hemoglobin 10.3L, Hematocrit 30.7L , Mean Corpuscular Volume 89, Mean Corpuscular Hemoglobin 30.0, Mean Corpuscular Hemoglobin Concent 33.6, Red Cell Distribution Width 10.9L, Platelet Count 170, Mean Platelet Volume 5.9L, Neutrophils (%) (Auto) 78.7H, Lymphocytes (%) (Auto) 10.7L, Monocytes (%) (Auto) 9.2, Eosinophils (%) (Auto) 0.1, Basophils (%) (Auto) 1.4, Sodium Level 136, Potassium Level 3.8, Chloride Level 104, Carbon Dioxide Level 25, Anion Gap 7, Blood Urea Nitrogen 17, Creatinine 1.1, Estimat Glomerular Filtration Rate , Glucose Level 405#H, Calcium Level 8.3L Height (Feet): 6 Height (Inches): 6.00 Weight (Pounds): 176 General Appearance: no apparent distress Neck: normal alignment Cardiovascular: normal rate Respiratory/Chest: decreased breath sounds Abdomen: normal bowel sounds Edema: no edema noted Arm (L), no edema noted Arm (R), no edema noted Leg (L), no edema noted Leg (R), no edema noted Pedal (L), no edema noted Pedal (R), no edema noted Generalized Objective Current Medications Medications (Trade) Dose Ordered Sig/Levi Route PRN Reason Start Time Stop Time Status Last Admin Dose Admin Acetaminophen (Tylenol) 650 mg Q4H PRN ORAL fever 11/22/18 13:30 12/22/18 13:29 12/08/18 23:55 Al Hydroxide/Mg Hydroxide (Mylanta II) 30 ml Q6H PRN ORAL dyspepsia 11/22/18 13:30 12/22/18 13:29 Amlodipine Besylate (Norvasc) 2.5 mg DAILY ORAL 11/29/18 09:00 12/29/18 08:59 12/09/18 09:29 Dextrose (Dextrose 50%) 25 ml Q30M PRN IV Hypoglycemia 11/22/18 13:30 12/22/18 13:23 11/22/18 17:21 Dextrose (Dextrose 50%) 50 ml Q30M PRN IV hypoglycemia 11/22/18 13:30 12/22/18 13:29 Dextrose/Sodium Chloride 1,000 ml @ 75 mls/hr [id number] IV 11/22/18 13:16 12/22/18 13:15 12/10/18 05:54 Diphenhydramine HCl (Benadryl) 25 mg Q6H PRN ORAL Itching/Pruritis 11/22/18 13:30 12/22/18 13:29 Finasteride (Proscar) 5 mg DAILY ORAL 11/22/18 19:45 12/22/18 19:44 12/09/18 09:30 Hydralazine HCl (Apresoline) 50 mg Q6H PRN ORAL SBP > 160 11/22/18 17:30 12/22/18 17:29 12/06/18 20:59 Insulin Aspart (NovoLOG) BEFORE MEALS AND HS SUBQ 11/22/18 16:30 12/22/18 16:29 12/10/18 05:52 Irbesartan (Avapro) 150 mg BID ORAL 11/25/18 09:00 12/25/18 08:59 12/09/18 17:20 Iron Sucrose 100 mg/Sodium Chloride 60 ml @ 240 mls/hr BEDTIME IV 12/07/18 21:00 12/11/18 21:14 12/09/18 21:05 Methimazole (Tapazole) 10 mg DAILY ORAL 11/29/18 09:00 12/24/18 08:59 12/09/18 09:29 Nateglinide (Starlix) 120 mg TIAC ORAL 11/29/18 11:30 12/24/18 11:29 12/10/18 05:51 Nitroglycerin (Ntg) 0.4 mg Q5M X 3 DOSES PRN SL Prn Chest Pain 11/22/18 13:30 12/22/18 13:29 Ondansetron HCl (Zofran) 4 mg Q6H PRN IVP Nausea & Vomiting 11/22/18 13:30 12/22/18 13:29 Pantoprazole (Protonix) 40 mg DAILY ORAL 12/05/18 09:00 5/17/19 20:59 12/09/18 09:30 Polyethylene Glycol (Miralax) 17 gm HSPRN PRN ORAL Constipation 11/22/18 13:30 12/22/18 13:29 12/04/18 21:38 Tamsulosin HCl (Flomax) 0.4 mg BEDTIME ORAL 11/22/18 21:00 12/22/18 20:59 12/09/18 21:06 Temazepam (Restoril) 15 mg HSPRN PRN ORAL Insomnia 12/05/18 10:00 12/12/18 09:59 12/06/18 20:58 Kashif Adorno MD December 10, 2018 06:21
[2018-12-10 07:26] LABS: BASOPHILS % (AUTO) 0.6 % (0.0-2.0); EOSINOPHILS % (AUTO) 0.1 % (0.0-3.0); HEMATOCRIT 29.6 % (42.0-52.0); HEMOGLOBIN 9.9 G/DL (14.2-18.0); LYMPHOCYTES % (AUTO) 13.8 % (20.0-45.0); MEAN CORPUSCULAR VOLUME 89 FL (80-99); MONOCYTES % (AUTO) 6.7 % (1.0-10.0); NEUTROPHILS % (AUTO) 78.8 % (45.0-75.0); PLATELET COUNT 192 K/UL (150-450); RED BLOOD COUNT 3.33 M/UL (4.70-6.10); WHITE BLOOD COUNT 10.1 K/UL (4.8-10.8)
--- NOTE | 2018-12-10 07:37 | NUR ---
HAND-OFF: Report given to DONELL Prater.
--- NOTE | 2018-12-10 07:41 | NUR ---
NURSE NOTES: RN received pt alert in bed in stable condition. No acute distress or SOB. Bed in low, locked position, call light within reach. Pt has IVP Nephrotomography scheduled in AM. Consent signed and in chart. Will continue plan of care.
[2018-12-10 07:44] LABS: ANION GAP 6 mmol/L (5-15); BLOOD UREA NITROGEN 15 mg/dL (7-18); CARBON DIOXIDE 28 MMOL/L (21-32); CHLORIDE 105 MMOL/L (98-107); CREATININE 1.1 MG/DL (0.55-1.30); SODIUM 139 MMOL/L (136-145)
[2018-12-10 08:00] VITALS: BP 119/56
[2018-12-10] MEDS: Irbesartan 150mg tablet ORAL SCH (09:00)
--- NOTE | 2018-12-10 10:34 | GI Progress Note ---
Assessment/Plan Problems: (1) Lower GI bleed ICD Codes: K92.2 - Gastrointestinal hemorrhage, unspecified SNOMED: 89557809 (2) Anemia ICD Codes: D64.9 - Anemia, unspecified SNOMED: 371548152 (3) Bleeding hemorrhoid ICD Codes: K64.9 - Unspecified hemorrhoids SNOMED: 89137419 (4) Alzheimer's dementia ICD Codes: G30.9 - Alzheimer's disease, unspecified; F02.80 - Dementia in other diseases classified elsewhere without behavioral disturbance SNOMED: 91820280 (5) Diabetes mellitus ICD Codes: E11.9 - Type 2 diabetes mellitus without complications SNOMED: 39794533 Status: unchanged Status Narrative Discussed with Dr. Hernandez. Assessment/Plan SUMMARY OF FINDINGS: 1. Gastritis and possibly gastric ulceration, status post biopsy. 2. One colonic polyp removed, see above for details. 3. Internal hemorrhoids. Occult blood stool negative Patient passed video swallow RECOMMENDATIONS: Follow-up urology recommendations Follow up pathology. >> H. pylori negative Resume diet. monitor H&H, prn transfusions bowel regime ppi fu labs The patient was seen and examined at bedside and all new and available data was reviewed in the patients chart. I agree with the above findings, impression and plan. (Patient seen earlier today. Signature stamp does not reflect patient encounter time.). - Prince Hernandez MD Subjective Subjective Limited Objective Last 24 Hour Vital Signs Date Time Temp Pulse Resp B/P (MAP) Pulse Ox O2 Delivery O2 Flow Rate FiO2 12/10/18 09:00 62 119/56 12/10/18 09:00 119/56 12/10/18 08:00 98.4 62 18 119/56 (77) 100 12/10/18 04:00 99.1 61 18 139/64 (89) 100 12/10/18 01:46 Room Air 12/10/18 00:00 98.7 61 20 132/61 (84) 100 12/09/18 21:00 Room Air 12/09/18 20:00 99.7 62 18 130/56 (80) 99 12/09/18 17:20 143/57 12/09/18 16:00 98.6 59 18 126/70 (88) 99 12/09/18 12:00 97.5 61 18 130/60 (83) 99 Intake and Output 12/09/18 12/10/18 19:00 07:00 Intake Total 900 ml Output Total 1250 ml Balance 900 ml -1250 ml Other 900 ml Output Urine Total 350 ml Other 900 ml # Bowel Movements 1 Laboratory Tests Test 12/10/18 05:06 White Blood Count 10.1 K/UL (4.8-10.8) Red Blood Count 3.33 M/UL (4.70-6.10) L Hemoglobin 9.9 G/DL (14.2-18.0) L Hematocrit 29.6 % (42.0-52.0) L Mean Corpuscular Volume 89 FL (80-99) Mean Corpuscular Hemoglobin 29.8 PG (27.0-31.0) Mean Corpuscular Hemoglobin Concent 33.6 G/DL (32.0-36.0) Red Cell Distribution Width 11.0 % (11.6-14.8) L Platelet Count 192 K/UL (150-450) Mean Platelet Volume 5.5 FL (6.5-10.1) L Neutrophils (%) (Auto) 78.8 % (45.0-75.0) H Lymphocytes (%) (Auto) 13.8 % (20.0-45.0) L Monocytes (%) (Auto) 6.7 % (1.0-10.0) Eosinophils (%) (Auto) 0.1 % (0.0-3.0) Basophils (%) (Auto) 0.6 % (0.0-2.0) Sodium Level 139 MMOL/L (136-145) Potassium Level 4.0 MMOL/L (3.5-5.1) Chloride Level 105 MMOL/L (98-107) Carbon Dioxide Level 28 MMOL/L (21-32) Anion Gap 6 mmol/L (5-15) Blood Urea Nitrogen 15 mg/dL (7-18) Creatinine 1.1 MG/DL (0.55-1.30) Estimat Glomerular Filtration Rate mL/min (>60) Glucose Level 127 MG/DL (74-106) #H Calcium Level 9.0 MG/DL (8.5-10.1) Height (Feet): 6 Height (Inches): 6.00 Weight (Pounds): 176 General Appearance: WD/WN, no apparent distress, alert Cardiovascular: normal rate Respiratory/Chest: normal breath sounds, no respiratory distress Abdominal Exam: normal bowel sounds, non tender, soft Extremities: normal range of motion, non-tender Osiel Vega NP December 10, 2018 10:34
--- NOTE | 2018-12-10 11:46 | Urology Progress Note ---
Assessment/Plan Status: unchanged Assessment/Plan: 1. Left hydronephrosis. 2. Hematuria. 3. Pyuria. 4. Proteinuria. 5. Benign prostatic hypertrophy. 6. Incontinence. 7. Neurogenic bladder. 8. Cystitis. 9. Bladder cancer. 10. POD # 16, cysto/TURBT monitor clinically hernandez out and voiding left hydro secondary to bladder tumor left nephrostomy placed 11/26, keep off suction hand irrigated and do PRN unable to place antegrade ureteral stent flomax and proscar monitor for voiding and reinsert hernandez PRN s/p diflucan med onc eval IR to reattempt antegrade stent Subjective Allergies: Coded Allergies: No Known Allergies (Unverified , 04/09/16) Subjective all noted, feels fair, voiding, condom cath, awaiting procedure by IR, issues with consent Objective Last 24 Hour Vital Signs Date Time Temp Pulse Resp B/P (MAP) Pulse Ox O2 Delivery O2 Flow Rate FiO2 12/10/18 09:00 62 119/56 12/10/18 09:00 119/56 12/10/18 09:00 Room Air 12/10/18 08:00 98.4 62 18 119/56 (77) 100 12/10/18 04:00 99.1 61 18 139/64 (89) 100 12/10/18 01:46 Room Air 12/10/18 00:00 98.7 61 20 132/61 (84) 100 12/09/18 21:00 Room Air 12/09/18 20:00 99.7 62 18 130/56 (80) 99 12/09/18 17:20 143/57 12/09/18 16:00 98.6 59 18 126/70 (88) 99 12/09/18 12:00 97.5 61 18 130/60 (83) 99 Intake and Output 12/09/18 12/10/18 19:00 07:00 Intake Total 900 ml Output Total 1250 ml Balance 900 ml -1250 ml Other 900 ml Output Urine Total 350 ml Other 900 ml # Bowel Movements 1 Microbiology Date/Time Source Procedure Growth Status 11/22/18 12:20 Nasal Nares MRSA Culture - Final NO METHICILLIN RESISTANT STAPH AUREUS... Complete 11/22/18 11:15 Urine,Clean Catch Urine Culture - Final YEAST Complete 11/22/18 12:20 Rectal Mucosa VRE Culture - Final NO VANCOMYCIN RESISTANT ENTEROCOCCUS ... Complete 11/22/18 12:20 Rectal Mucosa - Final NO CARBAPENEM-RESISTANT ENTEROBACTERI... Complete Current Medications Medications (Trade) Dose Ordered Sig/Levi Route PRN Reason Start Time Stop Time Status Last Admin Dose Admin Acetaminophen (Tylenol) 650 mg Q4H PRN ORAL fever 11/22/18 13:30 12/22/18 13:29 12/08/18 23:55 Al Hydroxide/Mg Hydroxide (Mylanta II) 30 ml Q6H PRN ORAL dyspepsia 11/22/18 13:30 12/22/18 13:29 Amlodipine Besylate (Norvasc) 2.5 mg DAILY ORAL 11/29/18 09:00 12/29/18 08:59 12/09/18 09:29 Dextrose (Dextrose 50%) 25 ml Q30M PRN IV Hypoglycemia 11/22/18 13:30 12/22/18 13:23 11/22/18 17:21 Dextrose (Dextrose 50%) 50 ml Q30M PRN IV hypoglycemia 11/22/18 13:30 12/22/18 13:29 Dextrose/Sodium Chloride 1,000 ml @ 75 mls/hr [id number] IV 11/22/18 13:16 12/22/18 13:15 12/10/18 05:54 Diphenhydramine HCl (Benadryl) 25 mg Q6H PRN ORAL Itching/Pruritis 11/22/18 13:30 12/22/18 13:29 Finasteride (Proscar) 5 mg DAILY ORAL 11/22/18 19:45 12/22/18 19:44 12/09/18 09:30 Hydralazine HCl (Apresoline) 50 mg Q6H PRN ORAL SBP > 160 11/22/18 17:30 12/22/18 17:29 12/06/18 20:59 Insulin Aspart (NovoLOG) BEFORE MEALS AND HS SUBQ 11/22/18 16:30 12/22/18 16:29 12/10/18 05:52 Irbesartan (Avapro) 150 mg BID ORAL 11/25/18 09:00 12/25/18 08:59 12/09/18 17:20 Iron Sucrose 100 mg/Sodium Chloride 60 ml @ 240 mls/hr BEDTIME IV 12/07/18 21:00 12/11/18 21:14 12/09/18 21:05 Methimazole (Tapazole) 10 mg DAILY ORAL 11/29/18 09:00 12/24/18 08:59 12/09/18 09:29 Nateglinide (Starlix) 120 mg TIAC ORAL 11/29/18 11:30 12/24/18 11:29 12/09/18 17:19 Nitroglycerin (Ntg) 0.4 mg Q5M X 3 DOSES PRN SL Prn Chest Pain 11/22/18 13:30 12/22/18 13:29 Ondansetron HCl (Zofran) 4 mg Q6H PRN IVP Nausea & Vomiting 11/22/18 13:30 12/22/18 13:29 Pantoprazole (Protonix) 40 mg DAILY ORAL 12/05/18 09:00 12/24/18 20:59 12/09/18 09:30 Polyethylene Glycol (Miralax) 17 gm HSPRN PRN ORAL Constipation 11/22/18 13:30 12/22/18 13:29 12/04/18 21:38 Tamsulosin HCl (Flomax) 0.4 mg BEDTIME ORAL 11/22/18 21:00 12/22/18 20:59 12/09/18 21:06 Temazepam (Restoril) 15 mg HSPRN PRN ORAL Insomnia 12/05/18 10:00 12/12/18 09:59 12/06/18 20:58 Laboratory Tests 12/10/18 05:06: White Blood Count 10.1, Red Blood Count 3.33L, Hemoglobin 9.9L, Hematocrit 29.6L , Mean Corpuscular Volume 89, Mean Corpuscular Hemoglobin 29.8, Mean Corpuscular Hemoglobin Concent 33.6, Red Cell Distribution Width 11.0L, Platelet Count 192, Mean Platelet Volume 5.5L, Neutrophils (%) (Auto) 78.8H, Lymphocytes (%) (Auto) 13.8L, Monocytes (%) (Auto) 6.7, Eosinophils (%) (Auto) 0.1, Basophils (%) (Auto) 0.6, Sodium Level 139, Potassium Level 4.0, Chloride Level 105, Carbon Dioxide Level 28, Anion Gap 6, Blood Urea Nitrogen 15, Creatinine 1.1, Estimat Glomerular Filtration Rate , Glucose Level 127#H, Calcium Level 9.0 Height (Feet): 6 Height (Inches): 6.00 Weight (Pounds): 176 Objective exam stable left nephrostomy output clearing final path noted Macho Allen MD December 10, 2018 11:46
--- NOTE | 2018-12-10 11:57 | Infectious Diseases Prog Note ---
Assessment/Plan Assessment/Plan Assessment: Hematochezia -11/24 SP EGD/Colonoscopy: gastritis, hemorrhoids L hydronephrosis/L Hydroureter 2ry to extensive bladder tumor -11/25 SP Cystoscopy, urethral calibration, transurethral resection of extensive bladder tumor with fulguration, and right retrograde pyelogram. -Findings: The patient had what appeared to be a large bladder tumor that involved most of the left side of the bladder extending posteriorly and completely obliterating the left ureteral orifice. I was unable to place a stent on the left side. - -CT abd/p: Limited assessment of the GI tract, due to lack of enteric contrast administration. Moderate left hydronephrosis and hydroureter. Hydroureter extends to the bladder, where there is asymmetric posterolateral wall thickening raises concern for neoplasm. Further evaluation with cystoscopy should be considered. There is also generalized wall thickening, possibly on the basis of cystitis or chronic bladder outlet obstruction. No definite findings to suggest etiology of stated clinical history of GI bleed. Cholelithiasis. Basilar pulmonary atelectasis and equivocal slight interstitial congestion. L1 vertebral body compression fracture deformity, age indeterminate. Consider MRI for further evaluation if this is clinically relevant Afebrile Leukocytosis , sp -CXR: No acute process Pyuria Funguria -u/a wbc 10-15, nit +, leuk est +3; ucx <10 yeast Encephalopathy -Head CT: Chronic and age-related changes is noted. Negative for acute intracranial bleed or mass effect. 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 Dementia HTN BPH urinary incontinence AV dissociation w/ conduction s/p PPM metabolic encephalopathy UTI seizure disorders Plan: - Monitor off abx - 11/27/18 SP Ceftriaxone #5/5 (will continue post-urologic procedure) and PO Fluconazole #3/3 -Monitor CBC/CMP -GI, Uro f/u Subjective Allergies: Coded Allergies: No Known Allergies (Unverified , 04/09/16) Subjective Afebrile comfortable Objective Vital Signs Last 24 Hour Vital Signs Date Time Temp Pulse Resp B/P (MAP) Pulse Ox O2 Delivery O2 Flow Rate FiO2 12/10/18 09:00 62 119/56 12/10/18 09:00 119/56 12/10/18 09:00 Room Air 12/10/18 08:00 98.4 62 18 119/56 (77) 100 12/10/18 04:00 99.1 61 18 139/64 (89) 100 12/10/18 01:46 Room Air 12/10/18 00:00 98.7 61 20 132/61 (84) 100 12/09/18 21:00 Room Air 12/09/18 20:00 99.7 62 18 130/56 (80) 99 12/09/18 17:20 143/57 12/09/18 16:00 98.6 59 18 126/70 (88) 99 12/09/18 12:00 97.5 61 18 130/60 (83) 99 Height (Feet): 6 Height (Inches): 6.00 Weight (Pounds): 176 HEENT: mucous membranes moist Respiratory/Chest: no respiratory distress Cardiovascular: regular rhythm Abdomen: no organomegaly Laboratory Tests Test 12/10/18 05:06 White Blood Count 10.1 K/UL (4.8-10.8) Red Blood Count 3.33 M/UL (4.70-6.10) L Hemoglobin 9.9 G/DL (14.2-18.0) L Hematocrit 29.6 % (42.0-52.0) L Mean Corpuscular Volume 89 FL (80-99) Mean Corpuscular Hemoglobin 29.8 PG (27.0-31.0) Mean Corpuscular Hemoglobin Concent 33.6 G/DL (32.0-36.0) Red Cell Distribution Width 11.0 % (11.6-14.8) L Platelet Count 192 K/UL (150-450) Mean Platelet Volume 5.5 FL (6.5-10.1) L Neutrophils (%) (Auto) 78.8 % (45.0-75.0) H Lymphocytes (%) (Auto) 13.8 % (20.0-45.0) L Monocytes (%) (Auto) 6.7 % (1.0-10.0) Eosinophils (%) (Auto) 0.1 % (0.0-3.0) Basophils (%) (Auto) 0.6 % (0.0-2.0) Sodium Level 139 MMOL/L (136-145) Potassium Level 4.0 MMOL/L (3.5-5.1) Chloride Level 105 MMOL/L (98-107) Carbon Dioxide Level 28 MMOL/L (21-32) Anion Gap 6 mmol/L (5-15) Blood Urea Nitrogen 15 mg/dL (7-18) Creatinine 1.1 MG/DL (0.55-1.30) Estimat Glomerular Filtration Rate mL/min (>60) Glucose Level 127 MG/DL (74-106) #H Calcium Level 9.0 MG/DL (8.5-10.1) Current Medications Medications (Trade) Dose Ordered Sig/Levi Route PRN Reason Start Time Stop Time Status Last Admin Dose Admin Acetaminophen (Tylenol) 650 mg Q4H PRN ORAL fever 11/22/18 13:30 12/22/18 13:29 12/08/18 23:55 Al Hydroxide/Mg Hydroxide (Mylanta II) 30 ml Q6H PRN ORAL dyspepsia 11/22/18 13:30 12/22/18 13:29 Amlodipine Besylate (Norvasc) 2.5 mg DAILY ORAL 11/29/18 09:00 12/29/18 08:59 12/09/18 09:29 Dextrose (Dextrose 50%) 25 ml Q30M PRN IV Hypoglycemia 11/22/18 13:30 12/22/18 13:23 11/22/18 17:21 Dextrose (Dextrose 50%) 50 ml Q30M PRN IV hypoglycemia 11/22/18 13:30 12/22/18 13:29 Dextrose/Sodium Chloride 1,000 ml @ 75 mls/hr [id number] IV 11/22/18 13:16 12/22/18 13:15 12/10/18 05:54 Diphenhydramine HCl (Benadryl) 25 mg Q6H PRN ORAL Itching/Pruritis 11/22/18 13:30 12/22/18 13:29 Finasteride (Proscar) 5 mg DAILY ORAL 11/22/18 19:45 12/22/18 19:44 12/09/18 09:30 Hydralazine HCl (Apresoline) 50 mg Q6H PRN ORAL SBP > 160 11/22/18 17:30 12/22/18 17:29 12/06/18 20:59 Insulin Aspart (NovoLOG) BEFORE MEALS AND HS SUBQ 11/22/18 16:30 12/22/18 16:29 12/10/18 05:52 Irbesartan (Avapro) 150 mg BID ORAL 11/25/18 09:00 12/25/18 08:59 12/09/18 17:20 Iron Sucrose 100 mg/Sodium Chloride 60 ml @ 240 mls/hr BEDTIME IV 12/07/18 21:00 12/11/18 21:14 12/09/18 21:05 Methimazole (Tapazole) 10 mg DAILY ORAL 11/29/18 09:00 12/24/18 08:59 12/09/18 09:29 Nateglinide (Starlix) 120 mg TIAC ORAL 11/29/18 11:30 12/24/18 11:29 12/09/18 17:19 Nitroglycerin (Ntg) 0.4 mg Q5M X 3 DOSES PRN SL Prn Chest Pain 11/22/18 13:30 12/22/18 13:29 Ondansetron HCl (Zofran) 4 mg Q6H PRN IVP Nausea & Vomiting 11/22/18 13:30 12/22/18 13:29 Pantoprazole (Protonix) 40 mg DAILY ORAL 12/05/18 09:00 12/24/18 20:59 12/09/18 09:30 Polyethylene Glycol (Miralax) 17 gm HSPRN PRN ORAL Constipation 11/22/18 13:30 12/22/18 13:29 12/04/18 21:38 Tamsulosin HCl (Flomax) 0.4 mg BEDTIME ORAL 11/22/18 21:00 12/22/18 20:59 12/09/18 21:06 Temazepam (Restoril) 15 mg HSPRN PRN ORAL Insomnia 12/05/18 10:00 12/12/18 09:59 12/06/18 20:58 Khai Cordoba MD December 10, 2018 11:57
[2018-12-10 12:00] VITALS: BP 127/62
--- NOTE | 2018-12-10 13:15 | Pulmonology Progress Note ---
Assessment/Plan Problems: (1) Lower GI bleed (2) Hydronephrosis (3) Anemia (4) Bladder neoplasm (5) Chronic cerebrovascular accident (CVA) (6) Diabetes mellitus (7) Alzheimer's dementia (8) HTN (hypertension) Assessment/Plan clear urine from nephrostomy no new complains nephrostomy in place. tolerated cystoscopy follow up with pathology, still not available. looks comfortable sliding scale monitor bp f/u urology recommendations We can't get hold of family to get consent for the stent placement prbc prn check H/H dvt prophylaxis. dc planning Subjective ROS Limited/Unobtainable: No Constitutional: Reports: no symptoms HEENT: Repors: no symptoms Respiratory: Reports: no symptoms Allergies: Coded Allergies: No Known Allergies (Unverified , 04/09/16) Objective Last 24 Hour Vital Signs Date Time Temp Pulse Resp B/P (MAP) Pulse Ox O2 Delivery O2 Flow Rate FiO2 12/10/18 12:00 98.7 62 18 127/62 (83) 100 12/10/18 09:00 62 119/56 12/10/18 09:00 119/56 12/10/18 09:00 Room Air 12/10/18 08:00 98.4 62 18 119/56 (77) 100 12/10/18 04:00 99.1 61 18 139/64 (89) 100 12/10/18 01:46 Room Air 12/10/18 00:00 98.7 61 20 132/61 (84) 100 12/09/18 21:00 Room Air 12/09/18 20:00 99.7 62 18 130/56 (80) 99 12/09/18 17:20 143/57 12/09/18 16:00 98.6 59 18 126/70 (88) 99 Intake and Output 12/09/18 12/10/18 19:00 07:00 Intake Total 900 ml Output Total 1250 ml Balance 900 ml -1250 ml Other 900 ml Output Urine Total 350 ml Other 900 ml # Bowel Movements 1 Objective nephrostomy still draining blood tinged urine, but less than previous day General Appearance: WD/WN HEENT: normocephalic, atraumatic Cardiovascular: normal peripheral pulses, normal rate Abdomen: normal bowel sounds, soft, non tender Genitourinary: normal external genitalia Extremities: no clubbing Skin: no rash Laboratory Tests 12/10/18 05:06: White Blood Count 10.1, Red Blood Count 3.33L, Hemoglobin 9.9L, Hematocrit 29.6L , Mean Corpuscular Volume 89, Mean Corpuscular Hemoglobin 29.8, Mean Corpuscular Hemoglobin Concent 33.6, Red Cell Distribution Width 11.0L, Platelet Count 192, Mean Platelet Volume 5.5L, Neutrophils (%) (Auto) 78.8H, Lymphocytes (%) (Auto) 13.8L, Monocytes (%) (Auto) 6.7, Eosinophils (%) (Auto) 0.1, Basophils (%) (Auto) 0.6, Sodium Level 139, Potassium Level 4.0, Chloride Level 105, Carbon Dioxide Level 28, Anion Gap 6, Blood Urea Nitrogen 15, Creatinine 1.1, Estimat Glomerular Filtration Rate , Glucose Level 127#H, Calcium Level 9.0 Current Medications Medications (Trade) Dose Ordered Sig/Levi Route PRN Reason Start Time Stop Time Status Last Admin Dose Admin Acetaminophen (Tylenol) 650 mg Q4H PRN ORAL fever 11/22/18 13:30 12/22/18 13:29 12/08/18 23:55 Al Hydroxide/Mg Hydroxide (Mylanta II) 30 ml Q6H PRN ORAL dyspepsia 11/22/18 13:30 12/22/18 13:29 Amlodipine Besylate (Norvasc) 2.5 mg DAILY ORAL 11/29/18 09:00 12/29/18 08:59 12/09/18 09:29 Dextrose (Dextrose 50%) 25 ml Q30M PRN IV Hypoglycemia 11/22/18 13:30 12/22/18 13:23 11/22/18 17:21 Dextrose (Dextrose 50%) 50 ml Q30M PRN IV hypoglycemia 11/22/18 13:30 12/22/18 13:29 Dextrose/Sodium Chloride 1,000 ml @ 75 mls/hr [id number] IV 11/22/18 13:16 12/22/18 13:15 12/10/18 05:54 Diphenhydramine HCl (Benadryl) 25 mg Q6H PRN ORAL Itching/Pruritis 11/22/18 13:30 12/22/18 13:29 Finasteride (Proscar) 5 mg DAILY ORAL 11/22/18 19:45 12/22/18 19:44 12/09/18 09:30 Hydralazine HCl (Apresoline) 50 mg Q6H PRN ORAL SBP > 160 11/22/18 17:30 12/22/18 17:29 12/06/18 20:59 Insulin Aspart (NovoLOG) BEFORE MEALS AND HS SUBQ 11/22/18 16:30 12/22/18 16:29 12/10/18 05:52 Irbesartan (Avapro) 150 mg BID ORAL 11/25/18 09:00 12/25/18 08:59 12/09/18 17:20 Iron Sucrose 100 mg/Sodium Chloride 60 ml @ 240 mls/hr BEDTIME IV 12/07/18 21:00 12/11/18 21:14 12/09/18 21:05 Methimazole (Tapazole) 10 mg DAILY ORAL 11/29/18 09:00 12/24/18 08:59 12/09/18 09:29 Nateglinide (Starlix) 120 mg TIAC ORAL 11/29/18 11:30 12/24/18 11:29 12/09/18 17:19 Nitroglycerin (Ntg) 0.4 mg Q5M X 3 DOSES PRN SL Prn Chest Pain 11/22/18 13:30 12/22/18 13:29 Ondansetron HCl (Zofran) 4 mg Q6H PRN IVP Nausea & Vomiting 11/22/18 13:30 12/22/18 13:29 Pantoprazole (Protonix) 40 mg DAILY ORAL 12/05/18 09:00 12/24/18 20:59 12/09/18 09:30 Polyethylene Glycol (Miralax) 17 gm HSPRN PRN ORAL Constipation 11/22/18 13:30 12/22/18 13:29 12/04/18 21:38 Tamsulosin HCl (Flomax) 0.4 mg BEDTIME ORAL 11/22/18 21:00 12/22/18 20:59 12/09/18 21:06 Temazepam (Restoril) 15 mg HSPRN PRN ORAL Insomnia 12/05/18 10:00 12/12/18 09:59 12/06/18 20:58 Og Hinkle MD December 10, 2018 13:15
[2018-12-10] MEDS ORDERED: Tubing IV Secondary IV ONE (13:55)
[2018-12-10] MEDS ORDERED: D5 1/2NS 1000ml IV ONE (13:55)
--- NOTE | 2018-12-10 14:23 | Internal Med Progress Note ---
Subjective Physician Name Jaziel Lowe Attending Physician Jaziel Lowe MD Current Medications Medications (Trade) Dose Ordered Sig/Levi Route PRN Reason Start Time Stop Time Status Last Admin Dose Admin Acetaminophen (Tylenol) 650 mg Q4H PRN ORAL fever 11/22/18 13:30 12/22/18 13:29 12/08/18 23:55 Al Hydroxide/Mg Hydroxide (Mylanta II) 30 ml Q6H PRN ORAL dyspepsia 11/22/18 13:30 12/22/18 13:29 Amlodipine Besylate (Norvasc) 2.5 mg DAILY ORAL 11/29/18 09:00 12/29/18 08:59 12/09/18 09:29 Dextrose (Dextrose 50%) 25 ml Q30M PRN IV Hypoglycemia 11/22/18 13:30 12/22/18 13:23 11/22/18 17:21 Dextrose (Dextrose 50%) 50 ml Q30M PRN IV hypoglycemia 11/22/18 13:30 12/22/18 13:29 Dextrose/Sodium Chloride 1,000 ml @ 75 mls/hr [id number] IV 11/22/18 13:16 12/22/18 13:15 12/10/18 05:54 Diphenhydramine HCl (Benadryl) 25 mg Q6H PRN ORAL Itching/Pruritis 11/22/18 13:30 12/22/18 13:29 Finasteride (Proscar) 5 mg DAILY ORAL 11/22/18 19:45 12/22/18 19:44 12/09/18 09:30 Hydralazine HCl (Apresoline) 50 mg Q6H PRN ORAL SBP > 160 11/22/18 17:30 12/22/18 17:29 12/06/18 20:59 Insulin Aspart (NovoLOG) BEFORE MEALS AND HS SUBQ 11/22/18 16:30 12/22/18 16:29 12/10/18 05:52 Irbesartan (Avapro) 150 mg BID ORAL 11/25/18 09:00 12/25/18 08:59 12/09/18 17:20 Iron Sucrose 100 mg/Sodium Chloride 60 ml @ 240 mls/hr BEDTIME IV 12/07/18 21:00 12/11/18 21:14 12/09/18 21:05 Methimazole (Tapazole) 10 mg DAILY ORAL 11/29/18 09:00 12/24/18 08:59 12/09/18 09:29 Nateglinide (Starlix) 120 mg TIAC ORAL 11/29/18 11:30 12/24/18 11:29 12/09/18 17:19 Nitroglycerin (Ntg) 0.4 mg Q5M X 3 DOSES PRN SL Prn Chest Pain 11/22/18 13:30 12/22/18 13:29 Ondansetron HCl (Zofran) 4 mg Q6H PRN IVP Nausea & Vomiting 11/22/18 13:30 12/22/18 13:29 Pantoprazole (Protonix) 40 mg DAILY ORAL 12/05/18 09:00 12/24/18 20:59 12/09/18 09:30 Polyethylene Glycol (Miralax) 17 gm HSPRN PRN ORAL Constipation 11/22/18 13:30 12/22/18 13:29 12/04/18 21:38 Tamsulosin HCl (Flomax) 0.4 mg BEDTIME ORAL 11/22/18 21:00 12/22/18 20:59 12/09/18 21:06 Temazepam (Restoril) 15 mg HSPRN PRN ORAL Insomnia 12/05/18 10:00 12/12/18 09:59 12/06/18 20:58 Allergies: Coded Allergies: No Known Allergies (Unverified , 04/09/16) Subjective Awake, responsive, demented, confused, no acute distress, hemoglobin: 9.9. Objective Last Vital Signs Date Time Temp Pulse Resp B/P (MAP) Pulse Ox O2 Delivery O2 Flow Rate FiO2 12/10/18 12:00 98.7 62 18 127/62 (83) 100 12/10/18 09:00 Room Air Laboratory Tests Test 12/10/18 05:06 White Blood Count 10.1 K/UL (4.8-10.8) Red Blood Count 3.33 M/UL (4.70-6.10) L Hemoglobin 9.9 G/DL (14.2-18.0) L Hematocrit 29.6 % (42.0-52.0) L Mean Corpuscular Volume 89 FL (80-99) Mean Corpuscular Hemoglobin 29.8 PG (27.0-31.0) Mean Corpuscular Hemoglobin Concent 33.6 G/DL (32.0-36.0) Red Cell Distribution Width 11.0 % (11.6-14.8) L Platelet Count 192 K/UL (150-450) Mean Platelet Volume 5.5 FL (6.5-10.1) L Neutrophils (%) (Auto) 78.8 % (45.0-75.0) H Lymphocytes (%) (Auto) 13.8 % (20.0-45.0) L Monocytes (%) (Auto) 6.7 % (1.0-10.0) Eosinophils (%) (Auto) 0.1 % (0.0-3.0) Basophils (%) (Auto) 0.6 % (0.0-2.0) Sodium Level 139 MMOL/L (136-145) Potassium Level 4.0 MMOL/L (3.5-5.1) Chloride Level 105 MMOL/L (98-107) Carbon Dioxide Level 28 MMOL/L (21-32) Anion Gap 6 mmol/L (5-15) Blood Urea Nitrogen 15 mg/dL (7-18) Creatinine 1.1 MG/DL (0.55-1.30) Estimat Glomerular Filtration Rate mL/min (>60) Glucose Level 127 MG/DL (74-106) #H Calcium Level 9.0 MG/DL (8.5-10.1) Intake and Output 12/09/18 12/10/18 19:00 07:00 Intake Total 900 ml Output Total 1250 ml Balance 900 ml -1250 ml Other 900 ml Output Urine Total 350 ml Other 900 ml # Bowel Movements 1 Objective General: No acute distress, awake and alert HEENT: NCAT, sclera anicteric, PERRL, EOMI. Neck: Supple, no significant jugular venous distention, Lungs: fair inspiratory effort, clear to auscultation bilaterally, no Wheeze or Rales. Heart: Regular rate and rhythm, normal S1/S2, no murmur. Abdomen: soft, nontender, nondistended. Normoactive bowel sounds, left-sided nephrostomy tube noted Extremities: No Cyanosis , clubbing or edema. Neuro: A&O x 3, Able to move all extremities Skin: warm, no rash. Psych: Normal mood and affect Assessment/Plan Assessment/Plan Hematochezia -11/24 SP EGD/Colonoscopy: gastritis, hemorrhoids Left hydronephrosis/L Hydroureter / extensive bladder tumor -11/25 SP Cystoscopy, urethral calibration, transurethral resection of extensive bladder tumor with fulguration, and right retrograde pyelogram. -Findings: The patient had what appeared to be a large bladder tumor that involved most of the left side of the bladder extending posteriorly and completely obliterating the left ureteral orifice. I was unable to place a stent on the left side. - -CT abd/p: Limited assessment of the GI tract, due to lack of enteric contrast administration. Moderate left hydronephrosis and hydroureter. Hydroureter extends to the bladder, where there is asymmetric posterolateral wall thickening raises concern for neoplasm. Further evaluation with cystoscopy should be considered. There is also generalized wall thickening, possibly on the basis of cystitis or chronic bladder outlet obstruction. No definite findings to suggest etiology of stated clinical history of GI bleed. Cholelithiasis. Basilar pulmonary atelectasis and equivocal slight interstitial congestion. L1 vertebral body compression fracture deformity, age indeterminate. 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 Dm2 Dementia HTN BPH urinary incontinence AV dissociation w/ conduction s/p PPM metabolic encephalopathy UTI seizure disorders Plan: - Monitor off abx -Monitor CBC/CMP -Follow up with urology recommendation -Seen for a family member for consent for stent placement. DVT prophylaxis with SCD Monitor laboratory. Jaziel Lowe MD December 10, 2018 14:23
--- NOTE | 2018-12-10 14:40 | NUR ---
NURSE NOTES: Pt discharged in stable condition to [facility]; report given to DONELL Suarez. RN informed receiving SNF pt admitted for GI Bleed on 11/22. Hx of seizures, DM, hydronephrosis, HTN, CVA, dementia, bladder tumor, obstructed ureter, left nephrostomy tube, left pacemaker. Full code, no isolation, fall risk and aspiration precautions. [facility] nect[facility] thick, incontinent x 2, last BM today. Discharge packet with meds to resume sent with EMS. IV and arm band removed.
--- NOTE | 2018-12-10 15:34 | General Progress Note ---
Assessment/Plan Status: unchanged Assessment/Plan: Assessment and Recs: # Bladder cancer extensive stage, iintially with L hydronephrosis/L Hydroureter 2ry to extensive bladder tumor, that is extensive stage. 11/25 SP Cystoscopy, urethral calibration, transurethral resection of extensive bladder tumor with fulguration, and right retrograde pyelogram. Findings: The patient had what appeared to be a large bladder tumor that involved most of the left side of the bladder extending posteriorly and completely obliterating the left ureteral orifice. I was unable to place a stent on the left side. --> CT abd/p: Limited assessment of the GI tract, due to lack of enteric contrast administration. Moderate left hydronephrosis and hydroureter. Hydroureter extends to the bladder, where there is asymmetric posterolateral wall thickening raises concern for neoplasm. Further evaluation with cystoscopy should be considered. There is also generalized wall thickening, possibly on the basis of cystitis or chronic bladder outlet obstruction. No definite findings to suggest etiology of stated clinical history of GI bleed. Cholelithiasis. Basilar pulmonary atelectasis and equivocal slight interstitial congestion. L1 vertebral body compression fracture deformity, age indeterminate. --> discussed case with pathologist, obtain pdl1 testing of tumor --> appreciate urology recs, pulm recs --> per ir may attempt placement of urinary stent # Anemia due to lower GI bleed --> appreciate gi recs, reviewed endoscopy report # Anemia due iron deficiency due to hemorrhoid bleed --> iv iron started, continue x 5 days --> appreciate gi recs # Hydronephrosis # Chronic cerebrovascular accident (CVA) # Diabetes mellitus # Alzheimer's dementia # HTN (hypertension) The timing of this note does not necessarily reflect the time of the patient was seen. Greatly appreciate consultation! Subjective Constitutional: Denies: no symptoms, chills, diaphoresis, fever, malaise, weakness, other HEENT: Denies: no symptoms, eye pain, blurred vision, tearing, double vision, ear pain, ear discharge, nose pain, nose congestion, throat pain, throat swelling, mouth pain, mouth swelling, other Cardiovascular: Denies: no symptoms, chest pain, edema, irregular heart rate, lightheadedness, palpitations, syncope, other Respiratory: Denies: no symptoms, cough, orthopnea, shortness of breath, SOB with excertion, SOB at rest, sputum, stridor, wheezing, other Gastrointestinal/Abdominal: Denies: no symptoms, abdomen distended, abdominal pain, black stools, tarry stools, blood in stool, constipated, diarrhea, difficulty swallowing, nausea, poor appetite, poor fluid intake, rectal bleeding , vomiting, other Genitourinary: Denies: no symptoms, burning, discharge, frequency, flank pain, hematuria, incontinence, pain, urgency, other 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: Denies: no symptoms, anxiety, depressed, emotional problems, headache, numbness, paresthesia, pre-existing deficit, seizure, tingling, tremors, weakness, other Endocrine: Denies: no symptoms, excessive sweating, flushing, intolerance to cold, intolerance to heat, increased hunger, increased thirst, increased urine, unexplained weight gain, unexplained weight loss, other Allergies: Coded Allergies: No Known Allergies (Unverified , 04/09/16) Subjective 12/07: no events, bed-bound, has poor performance status, feeling weak, unable to get out of bed 5: no chills, fevers, awaiting final path report, urine clear 5: no events to report, anemia panel reviewed, path still pending 12/10: discharge today to [facility] Objective Last 24 Hour Vital Signs Date Time Temp Pulse Resp B/P (MAP) Pulse Ox O2 Delivery O2 Flow Rate FiO2 12/10/18 12:00 98.7 62 18 127/62 (83) 100 12/10/18 09:00 62 119/56 12/10/18 09:00 119/56 12/10/18 09:00 Room Air 12/10/18 08:00 98.4 62 18 119/56 (77) 100 12/10/18 04:00 99.1 61 18 139/64 (89) 100 12/10/18 01:46 Room Air 12/10/18 00:00 98.7 61 20 132/61 (84) 100 12/09/18 21:00 Room Air 12/09/18 20:00 99.7 62 18 130/56 (80) 99 12/09/18 17:20 143/57 12/09/18 16:00 98.6 59 18 126/70 (88) 99 Intake and Output 12/09/18 12/10/18 19:00 07:00 Intake Total 900 ml Output Total 1250 ml Balance 900 ml -1250 ml Other 900 ml Output Urine Total 350 ml Other 900 ml # Bowel Movements 1 Laboratory Tests 12/10/18 05:06: White Blood Count 10.1, Red Blood Count 3.33L, Hemoglobin 9.9L, Hematocrit 29.6L , Mean Corpuscular Volume 89, Mean Corpuscular Hemoglobin 29.8, Mean Corpuscular Hemoglobin Concent 33.6, Red Cell Distribution Width 11.0L, Platelet Count 192, Mean Platelet Volume 5.5L, Neutrophils (%) (Auto) 78.8H, Lymphocytes (%) (Auto) 13.8L, Monocytes (%) (Auto) 6.7, Eosinophils (%) (Auto) 0.1, Basophils (%) (Auto) 0.6, Sodium Level 139, Potassium Level 4.0, Chloride Level 105, Carbon Dioxide Level 28, Anion Gap 6, Blood Urea Nitrogen 15, Creatinine 1.1, Estimat Glomerular Filtration Rate , Glucose Level 127#H, Calcium Level 9.0 Height (Feet): 6 Height (Inches): 6.00 Weight (Pounds): 176 Objective General Appearance: well appearing, no apparent distress, alert Head: normocephalic EENT: PERRL/EOMI, normal ENT inspection Neck: supple Respiratory: normal breath sounds, no respiratory distress Cardiovascular: normal rate Gastrointestinal: normal inspection, non tender, soft, normal bowel sounds, non -distended Genitourinary: deferred Musculoskeletal: normal inspection, back normal, other - upper extremity tremors ++ nephrostomy tube Neurologic: alert, responsive Psychiatric: judgement/insight normal Skin: normal inspection, normal color, no rash, warm/dry, palpation normal, well hydrated Lymphatic: normal inspection, no adenopathy Pierce Mcguire MD December 10, 2018 15:34
--- NOTE | 2018-12-10 15:58 | NUR ---
DISCHARGE PLANNING DISCHARGE ORDER NOTED Patient has been accepted to; [facility] [address] [place] [address] Bed: 6-C Skilled for Nurse to Nurse report [facility] ETA for transportation: 14:00
--- NOTE | 2018-12-13 08:41 | Discharge Summary ---
Discharge Summary Discharge Summary _ DATE OF ADMISSION: 11/22/2018 DATE OF DISCHARGE: 12/10/2018 DISCHARGED BY: Dr. Lowe REASON FOR ADMISSION: . 83 years old male with past medical history of diabetes mellitus type 2, BPH, cerebrovascular disease with prior history of CVA, dementia, hypertension, pacemaker placed due to cardiac arrhythmias, presented to emergency department for evaluation . Blood was noted in his diaper , and patient's granddaughter subsequently called paramedics. Patient also was noted to be slightly altered. Upon evaluation vital signs were stable. Laboratory work-up revealed no leukocytosis, hemoglobin 11.8, hematocrit 34. Stable coagulation profile. Potassium 3.2. Stable renal parameters and lytes. Troponin - 0.041. Albumin 3.2 9. Stable LFT. Glucose 63. Urinalysis revealed pyuria and moderate bacteria. EKG revealed paced rhythm. CT of the head demonstrated chronic and age-related changes, but was negative for acute intracranial bleeding or mass-effect. 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 noted. CT of the abdomen and pelvis revealed moderate left hydronephrosis and hydroureter. Hydroureter extends to the bladder, where there was asymmetric posterolateral wall thickening , raising concern for neoplasm. There was also generalized wall thickening, possibly on the basis of cystitis or chronic bladder outlet obstruction Rectal exam showed brown stool, no evidence of active bleeding. Patient was admitted for further management. CONSULTANTS: maintenance coordinator Dr. Valenzuela neurologist Dr. Flaherty pulmonary Dr. Hinkle ID specialist Dr. Cordoba GI specialist Dr. Hernandez endocrinology Dr. Adorno bindery cutter operator/oncologist Dr. Mcguire urology [facility] COURSE: Patient admitted to medical surgical floor and started on the IV fluids. Patient started on clear liquid diet Urology and GI specialist consults were requested. Hemoglobin and hematocrit were closely monitored. Patient subsequently undergone cystoscopy on 11/24 due to hematuria, possible bladder mass and left hydronephrosis. Patient was found to what appeared to be a large bladder tumor that involved most of the left side of the bladder, extending posteriorly and completely obliterating the left ureteral orifice. Urologist was unable to place a stent on the left side. Biopsy of bladder tumor revealed high-grade invasive urothelial carcinoma. Patient subsequently undergone placement of left nephrostomy tube by interventional radiology. Interventional radiology was unable to place antegrade ureteral stent. Urologist recommended at some point to reattempt placement of antegrade stent. At this time only left nephrostomy tube was placed. Renal parameters and electrolytes were closely monitored. Urinary output and nephrostomy output were closely monitored. Robertson catheter was discontinued. Patient was able to void. Nephrotoxins avoided. Proscar and Flomax were continued. Pain management was addressed. Renal parameters remained stable. All electrolytes stable prior to discharge. Patient also undergone EGD and colonoscopy, which revealed gastritis and possibly gastric ulceration, status post biopsy, one colonic polyp was removed, internal hemorrhoids. Biopsy of gastric antrum revealed chronic gastritis with intestinal metaplasia, no H. pylori was identified. Biopsy of sigmoid colon polyp revealed tubular adenoma. Diet was resumed. Hemoglobin and hematocrit were closely monitored with goal to keep hemoglobin above 7. Prior to discharge hemoglobin 9.9, hematocrit 29.6. Anemia work-up was consistent with anemia of iron deficiency. Patient was on IV iron for 5-days. Anemia was due to iron deficiency secondary to hemorrhoidal bleeding. CEA elevated 6.7. Bowel regimen instituted. GI prophylaxis provided. Patient supplements implemented in plan of care as per registered dietitian recommendation. Popcorn Vendor seen the patient due to hypoglycemia and very low TSH. Patient started on Tapazole. Repeated TSH in 1 week showed improvement. Thyroglobulin antibody was negative. Thyroid ultrasound revealed no discrete thyroid nodules. Popcorn Vendor recommended continue with Tapazole and repeat TSH in 3 to 4 weeks. Blood sugar was managed with Starlix before meals and sliding scale of insulin as needed. Hemoglobin A1c 6.6, at goal. Blood pressure was managed with ARB and CCB. Venous duplex revealed no acute DVT. Supplemental oxygen provided as needed to keep pulse oximetry above 92%. Echocardiogram revealed preserved ejection fraction of 50 to 65% with no evidence of wall motion abnormality. Mild left ventricular hypertrophy. Pacemaker wires in the right-sided chambers. Right ventricular systolic pressure of 27. Lipid panel was stable. DVT prophylaxis provided with SCD. CT of the head revealed no acute intracranial pathology, but was consistent with old CVA. Initial altered level of consciousness was likely due to acute metabolic encephalopathy due to hypoglycemia and resolved Patient was working with physical therapist. Video swallow evaluation revealed no evidence of aspiration or penetration. Aspiration precautions were maintained. Speech therapist recommended mechanical soft finally chopped diet and work-up with speech therapist at the detention facility . Infectious disease doctor followed. Urine culture revealed yeast with colony count less than 10 K. Per ID specialist, patient was monitored off antibiotics: no fevers , leukocytosis resolved l,ikely was reactive and funguria Patient clinically stabilized and was ready for transfer to detention facility for continuation of care. FINAL DIAGNOSES: Moderate left-sided hydronephrosis and hydroureter Status post cystoscopy with TURBT Large bladder tumor consistent with high-grade invasive urothelial carcinoma Status post left nephrostomy tube placement by interventional radiology Iron deficiency anemia secondary to hemorrhoidal bleeding Lower GI bleeding Status post EGD Gastritis Internal hemorrhoids Hypokalemia Severe protein calorie malnutrition Hypertension Diabetes mellitus Acute metabolic encephalopathy, possibly due to hypoglycemia-on chronic dementia, resolved Hypoglycemia associated with diabetes mellitus Cerebrovascular disease with history of old left internal capsule lacunar infarct Alzheimer dementia Hyperthyroidism AV dissociation with conduction, status post permanent pacemaker BPH DISCHARGE MEDICATIONS: See Medication Reconciliation list. DISCHARGE INSTRUCTIONS: Patient was discharged to the detention facility. Follow up with medical doctor at the facility. Ellen Mei NP December 13, 2018 08:41
== END 2018-12-10 14:42 | DRG 987 ==
LOC: EDBD 10:40 → EMR 11:40 → 4E 11:45 → EDBEDREQ 12:05 → 4E 14:43
PROC: BT1DZZZ Fluoroscopy of Right Kidney, Ureter and Bladder (ICD-10-PCS; principal; 2018-11-24 07:00)
PROC: 0TBB8ZZ Excision of Bladder, Via Natural or Artificial Opening Endoscopic (ICD-10-PCS; principal; 2018-11-24 07:00)
PROC: 0DB78ZX Excision of Stomach, Pylorus, Via Natural or Artificial Opening Endoscopic, Diagnostic (ICD-10-PCS; principal; 2018-11-24 07:00)
PROC: 0DBN8ZX Excision of Sigmoid Colon, Via Natural or Artificial Opening Endoscopic, Diagnostic (ICD-10-PCS; principal; 2018-11-24 07:00)
PROC: 0T5B8ZZ Destruction of Bladder, Via Natural or Artificial Opening Endoscopic (ICD-10-PCS; principal; 2018-11-24 07:00)
PROC: 0T9430Z Drainage of Left Kidney Pelvis with Drainage Device, Percutaneous Approach (ICD-10-PCS; 2018-11-26)
DX: K92.2 Gastrointestinal hemorrhage, unspecified (principal); G93.41 Metabolic encephalopathy; E43 Unspecified severe protein-calorie malnutrition; N13.30 Unspecified hydronephrosis; D62 Acute posthemorrhagic anemia; N39.0 Urinary tract infection, site not specified; B49 Unspecified mycosis; I45.89 Other specified conduction disorders; C67.9 Malignant neoplasm of bladder, unspecified; Z86.73 Personal history of transient ischemic attack (TIA), and cerebral infarction without residual deficits; K29.70 Gastritis, unspecified, without bleeding; E21.3 Hyperparathyroidism, unspecified; E11.44 Type 2 diabetes mellitus with diabetic amyotrophy; K25.9 Gastric ulcer, unspecified as acute or chronic, without hemorrhage or perforation; K64.8 Other hemorrhoids; E87.6 Hypokalemia; Z95.0 Presence of cardiac pacemaker; G30.9 Alzheimer's disease, unspecified; F02.80 Dementia in other diseases classified elsewhere, unspecified severity, without behavioral disturbance, psychotic disturbance, mood disturbance, and anxiety; I10 Essential (primary) hypertension; E11.649 Type 2 diabetes mellitus with hypoglycemia without coma; N40.0 Benign prostatic hyperplasia without lower urinary tract symptoms; N31.9 Neuromuscular dysfunction of bladder, unspecified; I69.992 Facial weakness following unspecified cerebrovascular disease; G40.909 Epilepsy, unspecified, not intractable, without status epilepticus; I35.0 Nonrheumatic aortic (valve) stenosis; E05.90 Thyrotoxicosis, unspecified without thyrotoxic crisis or storm; Z68.20 Body mass index [BMI] 20.0-20.9, adult; D12.5 Benign neoplasm of sigmoid colon; D50.9 Iron deficiency anemia, unspecified
CPT/HCPCS: 36415; 50432; 70450; 71045; 74176; 74230; 74420; 76000; 76536; 80048; 80053; 80061; 81003; 82150; 82248; 82270; 82378; 82607; 82728; 82746; 82962; 83036; 83540; 83550; 83690; 83735; 84100; 84436; 84439; 84443; 84484; 85007; 85025; 85044; 85610; 85651; 85730; 86140; 86376; 86850; 86900; 86901; 87081; 87086; 93005; 93306; 93970; 94003; 94150; 96365; 96375; 99285; J1815; J2370; J8499

== ENCOUNTER 2018-12-27 21:52 | Inpatient (IN) | payer MEDICARE ==
[~2018-12-27] VITALS: Ht 180.3 cm; Wt 81.6 kg
[~2018-12-27 21:52] MED LIST changes: +FINASTERIDE5 MG ORAL; +FLOMAX0.4 MG ORAL; +NORVASC2.5 MG ORAL; +STARLIX120 MG ORAL
--- NOTE | 2018-12-27 21:55 | NUR ---
ED Nurse Note: VALERIA APA [facility] FROM [facility] C/O LEFT NEPHROSTOMY TUBE DISLODGEMENT X 1700. AO4. NAD. VSS. DENIES PAIN
[2018-12-27] MEDS ORDERED: VITAMIN C500 M1 ORAL (21:58)
[2018-12-27] MEDS ORDERED: FERROUS SULFAT325 MG ORAL (21:59)
--- NOTE | 2018-12-27 22:00 | NUR ---
ED Nurse Note: IV ACCESS ESTABLISHED. BLOOD AND URINE COLLECTED; SENT DOWN TO LAB.
--- NOTE | 2018-12-27 22:11 | Emergency Room Report ---
History of Present Illness General Chief Complaint: General Complaint Source: Patient Present Illness HPI Is an 83-year-old male coming from [facility]. He presents with chief complaint of dislodged left nephrostomy tube. He had left hydronephrosis secondary to a bladder tumor. He was admitted here recently and had nephrostomy tube placed. It got dislodged today. Patient denies any symptom. No fever chills but no nausea no vomiting. Denies any other complaint. Allergies: Coded Allergies: No Known Allergies (Unverified , 04/09/16) Patient History Past Medical History: see triage record, old chart reviewed Past Surgical History: other Pertinent Family History: none Social History: Denies: smoking Immunizations: other Reviewed Nursing Documentation: PMH: Agreed; PSxH: Agreed Nursing Documentation-PMH Past Medical History: No Stated History Hx Cardiac Problems: No Hx Pacemaker: Yes Hx Diabetes: Yes Hx Cancer: No Hx Gastrointestinal Problems: No Hx Neurological Problems: Yes - Difficult to arouse 04/07/16 Hx Seizures: Yes Review of Systems Eye: Denies: eye pain, blurred vision ENT: Denies: ear pain, nose congestion, throat swelling Respiratory: Denies: cough, shortness of breath Cardiovascular: Denies: chest pain, palpitations Gastrointestinal: Denies: abdominal pain, diarrhea, nausea, vomiting Musculoskeletal: Denies: back pain, joint pain Skin: Denies: rash Neurological: Denies: headache, numbness Endocrine: Denies: increased thirst, increased urine Hematologic/Lymphatic: Denies: easy bruising All Other Systems: negative except mentioned in HPI Physical Exam Vital Signs Date Time Temp Pulse Resp B/P (MAP) Pulse Ox O2 Delivery O2 Flow Rate FiO2 12/27/18 21:51 97.7 72 14 97 Room Air vitals unremarkable Sp02 EP Interpretation: reviewed, normal General Appearance: well appearing, no apparent distress, alert Head: normocephalic, atraumatic Eyes: bilateral eye PERRL, bilateral eye EOMI ENT: hearing grossly normal, normal pharynx Neck: full range of motion, supple, no meningismus Respiratory: chest non-tender, lungs clear, normal breath sounds Cardiovascular #1: regular rate, rhythm, no murmur Gastrointestinal: normal bowel sounds, non tender, no mass, no organomegaly, no bruit, non-distended Musculoskeletal: back normal, gait/station normal, normal range of motion, other - No active drainage from left flank Psychiatric: mood/affect normal Skin: warm/dry Medical Decision Making Diagnostic Impression: Primary Impression: Nephrostomy tube displaced Additional Impressions: UTI (urinary tract infection) Qualified Codes: N30.00 - Acute cystitis without hematuria Bladder neoplasm Proteinuria Qualified Codes: R80.9 - Proteinuria, unspecified ER Course Patient presents with a dislodged nephrostomy tube. He had bladder cancer with nephrostomy for hydronephrosis. Urinalysis positive for pneumonia. Will admit for IV antibiotics. I discussed case with Dr. Lowe and Dr. Hinkle for admission. Last Vital Signs Date Time Temp Pulse Resp B/P (MAP) Pulse Ox O2 Delivery O2 Flow Rate FiO2 12/27/18 21:51 97.7 72 14 97 Room Air Status: improved Disposition: ADMITTED INPATIENT Condition: Serious Derek Vega MD December 27, 2018 22:11
[2018-12-27 22:23] LABS: BASOPHILS % (AUTO) 1.3 % (0.0-2.0); EOSINOPHILS % (AUTO) 0.1 % (0.0-3.0); HEMOGLOBIN 12.4 G/DL (14.2-18.0); LYMPHOCYTES % (AUTO) 18.5 % (20.0-45.0); MEAN CORPUSCULAR VOLUME 84 FL (80-99); MONOCYTES % (AUTO) 6.3 % (1.0-10.0); NEUTROPHILS % (AUTO) 73.7 % (45.0-75.0); PLATELET COUNT 243 K/UL (150-450); RED BLOOD COUNT 4.17 M/UL (4.70-6.10); RED CELL DISTRIBUTION WIDTH 10.6 % (11.6-14.8); WHITE BLOOD COUNT 12.3 K/UL (4.8-10.8)
[2018-12-27 22:37] LABS: ANION GAP 2 mmol/L (5-15); BLOOD UREA NITROGEN 28 mg/dL (7-18); CARBON DIOXIDE 33 MMOL/L (21-32); CHLORIDE 100 MMOL/L (98-107); CREATININE 1.1 MG/DL (0.55-1.30); POTASSIUM 4.9 MMOL/L (3.5-5.1); SODIUM 135 MMOL/L (136-145)
[2018-12-27 22:49] LABS: APPEARANCE,URINE CLOUDY; BILIRUBIN, URINE NEGATIVE (NEGATIVE); GLUCOSE, URINE (UA) NEGATIVE (NEGATIVE); KETONES,URINE NEGATIVE (NEGATIVE); LEUKOCYTE ESTERASE ,URINE 3+ (NEGATIVE); NITRITE,URINE POSITIVE (NEGATIVE); PH,URINE 6 (4.5-8.0); PROTEIN,URINE 3+ (NEGATIVE); UROBILINOGEN,URINE 4 MG/DL (0.0-1.0)
[2018-12-27 22:50] LABS: COLOR,URINE YELLOW
[2018-12-27] MEDS ORDERED: Vancomycin 1.5gm Premix 275 ML IVPB SCH (23:00)
[2018-12-27] MEDS ORDERED: Cefepime HCl 1 GM in D5W 55 ML IVPB ONE (23:00)
[2018-12-27] MEDS ORDERED: Vancomycin 1.5gm vial IVPB ONE (23:01)
[2018-12-27 23:17] VITALS: BP 122/67
[2018-12-27 23:45] VITALS: BP 133/63
[2018-12-27] MEDS ORDERED: Albuterol/Ipratropium 3ml neb HHN PRN (23:45)
[2018-12-27] MEDS ORDERED: Miralax 17gm pkt ORAL PRN (23:45)
[2018-12-27] MEDS ORDERED: Nitroglycerin Subl 0.4mg tab SL PRN (23:45)
--- NOTE | 2018-12-27 23:45 | NUR ---
ED Nurse Note: TELEPHONE REPORT GIVEN TO DONELL ALVAREZ
--- NOTE | 2018-12-27 23:51 | NUR ---
NURSE NOTES: Received telephone report from Dylan Gant RN.
--- NOTE | 2018-12-28 | NUR ---
TRANSFER TO FLOOR: Patient transferred to MED SURG 310 as ordered, per MD ALEX. Report given to DONELL ALVAREZ. PATIENT IN STABLE CONDITION. BELONGINGS LIST COMPLETED. MRSA VRE CRE SWABS COLLECTED; SENT DOWN TO LAB.
[2018-12-28 00:20] VITALS: BP 147/70
--- NOTE | 2018-12-28 00:20 | NUR ---
NURSE NOTES: Received patient from ER via tech. A&Ox2-3. On room air, no signs of distress or labored breathing. IV intact, patent, and running antibiotics started in ER. No belongings. Vitals stable. Bed in lowest position, with call light in reach. Will continue to monitor.
[2018-12-28] MEDS ORDERED: Vancomycin 1 GM in D5W 275 ML IV SCH (00:30)
[2018-12-28 04:00] VITALS: BP 127/66
[2018-12-28] MEDS: NovoLOG Insulin Flexpen SUBQ SCH ×4 (06:21→21:05)
[2018-12-28 07:01] LABS: ALANINE AMINOTRANSFERASE 19 U/L (12-78); ALBUMIN 2.8 G/DL (3.4-5.0); ALBUMIN/GLOBULIN RATIO 0.6 (1.0-2.7); ALKALINE PHOSPHATASE 123 U/L (46-116); ANION GAP 8 mmol/L (5-15); ASPARTATE AMINO TRANSFERASE 12 U/L (15-37); BILIRUBIN,TOTAL 0.4 MG/DL (0.2-1.0); BLOOD UREA NITROGEN 24 mg/dL (7-18); CARBON DIOXIDE 30 MMOL/L (21-32); CHLORIDE 102 MMOL/L (98-107); CREATININE 0.9 MG/DL (0.55-1.30); POTASSIUM 4.3 MMOL/L (3.5-5.1); SODIUM 139 MMOL/L (136-145)
[2018-12-28 07:05] LABS: BASOPHILS % (AUTO) 0.8 % (0.0-2.0); EOSINOPHILS % (AUTO) 0.1 % (0.0-3.0); HEMATOCRIT 34.5 % (42.0-52.0); HEMOGLOBIN 11.8 G/DL (14.2-18.0); LYMPHOCYTES % (AUTO) 19.6 % (20.0-45.0); MEAN CORPUSCULAR VOLUME 86 FL (80-99); MONOCYTES % (AUTO) 7.5 % (1.0-10.0); PLATELET COUNT 214 K/UL (150-450); RED CELL DISTRIBUTION WIDTH 11.1 % (11.6-14.8); WHITE BLOOD COUNT 10.8 K/UL (4.8-10.8)
--- NOTE | 2018-12-28 07:25 | NUR ---
NURSE NOTES:DR. IVEY CALLED IN AND ASKED INFO ABT.PATIENT. MADE AWARE THAT PATIENT HAS NO NEPHROSTOMY TUBE AND WITH CONDOM CATH.NO ORDERS .INCOMING RN(JONAS) AWARE.
--- NOTE | 2018-12-28 07:25 | NUR ---
HAND-OFF: Report given to .JONAS ORTIZ RN.PATIENT STABLE.
--- NOTE | 2018-12-28 07:28 | NUR ---
NURSE NOTES:bedside rounds done,patient awake,a/o x2-3,room air,bed locked,no c/o pain,right leg drsng.c/d/i.will continue current plan of care.
--- NOTE | 2018-12-28 07:42 | NUR ---
HAND-OFF: Report given to DONELL Boothe.
[2018-12-28 07:54] VITALS: BP 130/60
[2018-12-28] MEDS: Heparin 5000 units/ml inj SUBQ SCH ×2 (08:30→21:03)
[2018-12-28] MEDS: Cefepime HCl 2 GM in D5W 110 ML IV SCH ×2 (09:08→21:00)
[2018-12-28 12:00] VITALS: BP 118/74
[2018-12-28] MEDS ORDERED: Vancomycin 500mg/D5W 110ml IVPB SCH ×2 (12:00)
--- NOTE | 2018-12-28 12:04 | NUR ---
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 DISLODGED NEPHROSTOMY TUBE VS: BP 122/67, P 72, T 97.7, RR 14, SpO2 97 WBC 12.3, RBC 4.17, H&H 12.4/35.0, Na 135, BUN 28, URINE: NITRITE- POSITIVE, BACTERIA- MODERATE IS:CEFEPIME HCI 55ml IVPB VANCOMYCIN 275ml IVPB NS x1L IV ADMITTED TO MED/SURG DCP: RETURN TO REHAB ON
--- NOTE | 2018-12-28 13:06 | Consultation ---
History of Present Illness General Date patient seen: December 28, 2018 Chief Complaint: General Complaint Present Illness HPI 83-year-old male with hx of bladder cancer, hydronephrosis s/p nephrostomy, DM, HTN, chronci CVA, dementia [facility] presented with chief complaint of dislodged left nephrostomy tube. He was admitted here recently and had nephrostomy tube placed. He was found to have leucocytosis and ATN and admitted for further treatment. Allergies: Coded Allergies: No Known Allergies (Unverified , 04/09/16) Medication History Scheduled Amlodipine Besylate (Norvasc), 2.5 MG ORAL DAILY Ascorbic Acid* (Vitamin C*), 500 MG ORAL DAILY, (Reported) Ferrous Sulfate* (Ferrous Sulfate*), 325 MG ORAL DAILY, (Reported) Finasteride (Finasteride), 5 MG ORAL DAILY Lisinopril (Lisinopril*), 20 MG ORAL DAILY Metformin Hcl (Glucophage), 1,000 MG ORAL EVERY 12 HOURS Nateglinide (Starlix), 120 MG ORAL TIAC Tamsulosin HCl (Flomax), 0.4 MG ORAL BEDTIME Miscellaneous Medications Unable to Obtain Medications (Unable To Obtain Meds), (Reported) Patient History Healthcare decision maker Resuscitation status Full Code Advanced Directive on File Past Medical/Surgical History Past Medical/Surgical History: (1) Bladder neoplasm (2) Hydronephrosis (3) Chronic cerebrovascular accident (CVA) (4) Alzheimer's dementia (5) HTN (hypertension) (6) Diabetes mellitus Review of Systems All Other Systems: negative except mentioned in HPI Physical Exam General Appearance: cachetic, thin Lines, tubes and drains: peripheral HEENT: normocephalic, atraumatic Neck: non-tender, normal alignment Respiratory/Chest: chest wall non-tender, normal breath sounds Breasts: no masses Cardiovascular/Chest: normal rate Abdomen: normal bowel sounds Genitourinary/Rectal: normal genital exam Extremities: non-tender Last 24 Hour Vital Signs Date Time Temp Pulse Resp B/P (MAP) Pulse Ox O2 Delivery O2 Flow Rate FiO2 12/28/18 12:00 97.6 66 18 118/74 (89) 100 12/28/18 08:28 61 130/60 12/28/18 07:54 97.4 61 18 130/60 (83) 100 12/28/18 07:28 Room Air 12/28/18 04:00 97.5 63 18 127/66 (86) 98 12/28/18 03:14 Room Air 12/28/18 00:20 98.7 72 17 147/70 (95) 100 12/28/18 00:02 97.7 63 13 133/63 100 Room Air 12/27/18 23:45 97.7 63 13 133/63 100 Room Air 12/27/18 23:17 72 14 Room Air 12/27/18 23:17 97.7 72 14 122/67 97 Room Air 12/27/18 21:51 97.7 72 14 97 Room Air Intake and Output 12/27/18 12/28/18 19:00 07:00 Intake Total 300 ml Balance 300 ml Intake IV Total 300 ml # Voids 2 # Bowel Movements 1 Laboratory Tests Test 12/27/18 22:00 12/28/18 05:20 White Blood Count 12.3 K/UL (4.8-10.8) H 10.8 K/UL (4.8-10.8) Red Blood Count 4.17 M/UL (4.70-6.10) L 4.00 M/UL (4.70-6.10) L Hemoglobin 12.4 G/DL (14.2-18.0) L 11.8 G/DL (14.2-18.0) L Hematocrit 35.0 % (42.0-52.0) L 34.5 % (42.0-52.0) L Mean Corpuscular Volume 84 FL (80-99) 86 FL (80-99) Mean Corpuscular Hemoglobin 29.7 PG (27.0-31.0) 29.5 PG (27.0-31.0) Mean Corpuscular Hemoglobin Concent 35.4 G/DL (32.0-36.0) 34.1 G/DL (32.0-36.0) Red Cell Distribution Width 10.6 % (11.6-14.8) L 11.1 % (11.6-14.8) L Platelet Count 243 K/UL (150-450) 214 K/UL (150-450) Mean Platelet Volume 5.2 FL (6.5-10.1) L 5.6 FL (6.5-10.1) L Neutrophils (%) (Auto) 73.7 % (45.0-75.0) 72.0 % (45.0-75.0) Lymphocytes (%) (Auto) 18.5 % (20.0-45.0) L 19.6 % (20.0-45.0) L Monocytes (%) (Auto) 6.3 % (1.0-10.0) 7.5 % (1.0-10.0) Eosinophils (%) (Auto) 0.1 % (0.0-3.0) 0.1 % (0.0-3.0) Basophils (%) (Auto) 1.3 % (0.0-2.0) 0.8 % (0.0-2.0) Urine Color Yellow Urine Appearance Cloudy Urine pH 6 (4.5-8.0) Urine Specific [place] 1.015 (1.005-1.035) Urine Protein 3+ (NEGATIVE) H Urine Glucose (UA) Negative (NEGATIVE) Urine Ketones Negative (NEGATIVE) Urine Blood 4+ (NEGATIVE) H Urine Nitrite Positive (NEGATIVE) H Urine Bilirubin Negative (NEGATIVE) Urine Urobilinogen 4 MG/DL (0.0-1.0) H Urine Leukocyte Esterase 3+ (NEGATIVE) H Urine RBC 2-4 /HPF (0 - 0) H Urine WBC Tntc /HPF (0 - 0) H Urine Squamous Epithelial Cells None /LPF (NONE/OCC) Urine Bacteria Moderate /HPF (NONE) H Sodium Level 135 MMOL/L (136-145) L 139 MMOL/L (136-145) Potassium Level 4.9 MMOL/L (3.5-5.1) 4.3 MMOL/L (3.5-5.1) Chloride Level 100 MMOL/L (98-107) 102 MMOL/L (98-107) Carbon Dioxide Level 33 MMOL/L (21-32) H 30 MMOL/L (21-32) Anion Gap 2 mmol/L (5-15) L 8 mmol/L (5-15) Blood Urea Nitrogen 28 mg/dL (7-18) H 24 mg/dL (7-18) H Creatinine 1.1 MG/DL (0.55-1.30) 0.9 MG/DL (0.55-1.30) Estimat Glomerular Filtration Rate mL/min (>60) mL/min (>60) Glucose Level 207 MG/DL (74-106) H 159 MG/DL (74-106) H Calcium Level 10.0 MG/DL (8.5-10.1) 10.0 MG/DL (8.5-10.1) Total Bilirubin 0.4 MG/DL (0.2-1.0) Aspartate Amino Transf (AST/SGOT) 12 U/L (15-37) L Alanine Aminotransferase (ALT/SGPT) 19 U/L (12-78) Alkaline Phosphatase 123 U/L (46-116) H Total Protein 7.4 G/DL (6.4-8.2) Albumin 2.8 G/DL (3.4-5.0) L Globulin 4.6 g/dL Albumin/Globulin Ratio 0.6 (1.0-2.7) L Microbiology Date/Time Source Procedure Growth Status 12/27/18 22:00 Urine,Clean Catch Urine Culture - Preliminary NO GROWTH Resulted Height (Feet): 5 Height (Inches): 11.00 Weight (Pounds): 180 Medications Current Medications Medications (Trade) Dose Ordered Sig/Levi Route PRN Reason Start Time Stop Time Status Last Admin Dose Admin Acetaminophen (Tylenol) 650 mg Q4H PRN ORAL fever 12/27/18 23:45 01/26/19 23:44 Albuterol/ Ipratropium (Albuterol/ Ipratropium) 3 ml Q4H PRN HHN Shortness of Breath 12/27/18 23:45 01/01/19 23:44 Amlodipine Besylate (Norvasc) 2.5 mg DAILY ORAL 12/28/18 09:00 01/27/19 08:59 12/28/18 08:28 Cefepime HCl 2 gm/ Dextrose 110 ml @ 220 mls/hr EVERY 12 HOURS IV 12/28/18 09:00 01/04/19 08:59 12/28/18 09:08 Dextrose (Dextrose 50%) 25 ml STAT PRN IV Hypoglycemia 12/28/18 11:45 01/27/19 11:44 Dextrose (Dextrose 50%) 50 ml STAT PRN IV Hypoglycemia 12/28/18 11:45 01/27/19 11:44 Finasteride (Proscar) 5 mg DAILY ORAL 12/28/18 09:00 01/27/19 08:59 12/28/18 08:28 Heparin Sodium (Porcine) (Heparin 5000 units/ml) 5,000 units EVERY 12 HOURS SUBQ 12/28/18 09:00 01/27/19 08:59 12/28/18 08:30 Insulin Aspart (NovoLOG) BEFORE MEALS AND HS SUBQ 12/28/18 06:30 01/27/19 06:29 12/28/18 12:24 Morphine Sulfate (Morphine Sulfate) 2 mg Q4H PRN IVP Moderate Pain (Pain Scale 4-6) 12/27/18 23:45 01/03/19 23:44 Nitroglycerin (Ntg) 0.4 mg Q5M PRN SL Prn Chest Pain 12/27/18 23:45 01/26/19 23:44 Ondansetron HCl (Zofran) 4 mg Q6H PRN IVP Nausea & Vomiting 12/27/18 23:45 01/26/19 23:44 Polyethylene Glycol (Miralax) 17 gm DAILYPRN PRN ORAL Constipation 12/27/18 23:45 01/26/19 23:44 Sodium Chloride 1,000 ml @ 75 mls/hr [id number] IV 12/27/18 01:00 01/26/19 00:59 12/28/18 02:08 Tamsulosin HCl (Flomax) 0.4 mg BEDTIME ORAL 12/28/18 21:00 01/27/19 20:59 Temazepam (Restoril) 15 mg HSPRN PRN ORAL Insomnia 12/27/18 23:45 01/03/19 23:44 Vancomycin HCl 1.5 gm/Sodium Chloride 275 ml @ 137.5 mls/ hr Q24H IVPB 12/28/18 21:00 01/02/19 20:59 Assessment/Plan Problem List: (1) UTI (urinary tract infection) ICD Codes: N39.0 - Urinary tract infection, site not specified SNOMED: 62344926 Qualifiers: Qualified Codes: N30.00 - Acute cystitis without hematuria (2) HTN (hypertension) ICD Codes: I10 - Essential (primary) hypertension SNOMED: 62380266 (3) Chronic cerebrovascular accident (CVA) ICD Codes: I69.30 - Unspecified sequelae of cerebral infarction SNOMED: 344865659 (4) Diabetes mellitus ICD Codes: E11.9 - Type 2 diabetes mellitus without complications SNOMED: 25648707 (5) Nephrostomy tube displaced ICD Codes: T83.022A - Displacement of nephrostomy catheter, initial encounter SNOMED: 388906231 (6) Alzheimer's dementia ICD Codes: G30.9 - Alzheimer's disease, unspecified; F02.80 - Dementia in other diseases classified elsewhere without behavioral disturbance SNOMED: 34039286 (7) Bladder neoplasm ICD Codes: D49.4 - Neoplasm of unspecified behavior of bladder SNOMED: 954461058 Assessment/Plan: iv fluids iv abx check cultures check electrolytes symptomatic treatment dvt prophylaxis. Og Hinkle MD December 28, 2018 13:05
--- NOTE | 2018-12-28 14:19 | NUR ---
NURSE NOTES:WOUND CARE NOTES:Pt presented on admission with non-blanchable erythema without induration or tenderness buttocks. Resolving incision L side of back without exudate. Bilat heels boggy with non-blanchable erythema .Pt denied tenderness when each heel palpated . No evidence of skin breakdown noted to all other bony prominences. Recommendations: Apply Moisture Barrier Paste to sacrum. Cover with Optifoam drsg. Change every 3 days and prn. Apply Moisture Barrier Paste to Scrotum with each incontinence care. Apply [place] Skin Barrier to each heel. Cover each heel with Optifoam drsg. Change every 7 days and prn. Reposition at least every 2hours or as tolerated. Off-load heels with pillows.
--- NOTE | 2018-12-28 14:20 | NUR ---
NURSE NOTES:SEEN BY Radha RICH(WOUND NURSE)[place] .APPILED TO BILATERAL HEELS NON BLANCHABLE ERYTHEMA,WITH [place] SKIN BARRIER/OPTIFOAM ,AND RIGHT LEG SKIN TEAR.
[2018-12-28 15:47] VITALS: BP 150/62
--- NOTE | 2018-12-28 18:04 | Consultation ---
History of Present Illness General Date patient seen: December 28, 2018 Chief Complaint: General Complaint Present Illness HPI 83 y/o M with hx of bladder CA c/w hydronephrosis s/p nephrostomy, BPH, AV dissocaition s/p PPM, hx of UTI, seizure disorder, Dm2, HTH, CVA, dementia, [facility] resident presents to ED on 12/27 with dislodged L nephrostomy tube. He was found to have leukocytosis and KENN. Of note, admitted on 11/22-12/10 w/ blood in stool and new onset hyperthyroidism Dnied f/c, n/v/d Allergies: Coded Allergies: No Known Allergies (Unverified , 04/09/16) Medication History Scheduled Amlodipine Besylate (Norvasc), 2.5 MG ORAL DAILY Ascorbic Acid* (Vitamin C*), 500 MG ORAL DAILY, (Reported) Ferrous Sulfate* (Ferrous Sulfate*), 325 MG ORAL DAILY, (Reported) Finasteride (Finasteride), 5 MG ORAL DAILY Lisinopril (Lisinopril*), 20 MG ORAL DAILY Metformin Hcl (Glucophage), 1,000 MG ORAL EVERY 12 HOURS Nateglinide (Starlix), 120 MG ORAL TIAC Tamsulosin HCl (Flomax), 0.4 MG ORAL BEDTIME Miscellaneous Medications Unable to Obtain Medications (Unable To Obtain Meds), (Reported) Patient History Healthcare decision maker Resuscitation status Full Code Advanced Directive on File Patient History Narrative Pmhx: as above Shx: Denies: smoking Fhx: non contributory Review of Systems All Other Systems: negative except mentioned in HPI Physical Exam Physical Exam Narrative General Appearance: well appearing, no apparent distress, alert Head: normocephalic, atraumatic Eyes: bilateral eye PERRL, bilateral eye EOMI ENT: hearing grossly normal, normal pharynx Neck: full range of motion, supple, no meningismus Respiratory: chest non-tender, lungs clear, normal breath sounds Cardiovascular #1: regular rate, rhythm, no murmur Gastrointestinal: normal bowel sounds, non tender, no mass, no organomegaly, no bruit, non-distended Musculoskeletal: back normal, gait/station normal, normal range of motion, other - No active drainage from left flank Psychiatric: mood/affect normal Skin: warm/dry Last 24 Hour Vital Signs Date Time Temp Pulse Resp B/P (MAP) Pulse Ox O2 Delivery O2 Flow Rate FiO2 12/28/18 15:47 98.0 69 17 150/62 (91) 98 12/28/18 12:00 97.6 66 18 118/74 (89) 100 12/28/18 08:28 61 130/60 12/28/18 07:54 97.4 61 18 130/60 (83) 100 12/28/18 07:28 Room Air 12/28/18 04:00 97.5 63 18 127/66 (86) 98 12/28/18 03:14 Room Air 12/28/18 00:20 98.7 72 17 147/70 (95) 100 12/28/18 00:02 97.7 63 13 133/63 100 Room Air 12/27/18 23:45 97.7 63 13 133/63 100 Room Air 12/27/18 23:17 72 14 Room Air 12/27/18 23:17 97.7 72 14 122/67 97 Room Air 12/27/18 21:51 97.7 72 14 97 Room Air Intake and Output 12/27/18 12/28/18 19:00 07:00 Intake Total 300 ml Balance 300 ml IV Total 300 ml # Voids 2 # Bowel Movements 1 Laboratory Tests Test 12/27/18 22:00 12/28/18 05:20 White Blood Count 12.3 K/UL (4.8-10.8) H 10.8 K/UL (4.8-10.8) Red Blood Count 4.17 M/UL (4.70-6.10) L 4.00 M/UL (4.70-6.10) L Hemoglobin 12.4 G/DL (14.2-18.0) L 11.8 G/DL (14.2-18.0) L Hematocrit 35.0 % (42.0-52.0) L 34.5 % (42.0-52.0) L Mean Corpuscular Volume 84 FL (80-99) 86 FL (80-99) Mean Corpuscular Hemoglobin 29.7 PG (27.0-31.0) 29.5 PG (27.0-31.0) Mean Corpuscular Hemoglobin Concent 35.4 G/DL (32.0-36.0) 34.1 G/DL (32.0-36.0) Red Cell Distribution Width 10.6 % (11.6-14.8) L 11.1 % (11.6-14.8) L Platelet Count 243 K/UL (150-450) 214 K/UL (150-450) Mean Platelet Volume 5.2 FL (6.5-10.1) L 5.6 FL (6.5-10.1) L Neutrophils (%) (Auto) 73.7 % (45.0-75.0) 72.0 % (45.0-75.0) Lymphocytes (%) (Auto) 18.5 % (20.0-45.0) L 19.6 % (20.0-45.0) L Monocytes (%) (Auto) 6.3 % (1.0-10.0) 7.5 % (1.0-10.0) Eosinophils (%) (Auto) 0.1 % (0.0-3.0) 0.1 % (0.0-3.0) Basophils (%) (Auto) 1.3 % (0.0-2.0) 0.8 % (0.0-2.0) Urine Color Yellow Urine Appearance Cloudy Urine pH 6 (4.5-8.0) Urine Specific [place] 1.015 (1.005-1.035) Urine Protein 3+ (NEGATIVE) H Urine Glucose (UA) Negative (NEGATIVE) Urine Ketones Negative (NEGATIVE) Urine Blood 4+ (NEGATIVE) H Urine Nitrite Positive (NEGATIVE) H Urine Bilirubin Negative (NEGATIVE) Urine Urobilinogen 4 MG/DL (0.0-1.0) H Urine Leukocyte Esterase 3+ (NEGATIVE) H Urine RBC 2-4 /HPF (0 - 0) H Urine WBC Tntc /HPF (0 - 0) H Urine Squamous Epithelial Cells None /LPF (NONE/OCC) Urine Bacteria Moderate /HPF (NONE) H Sodium Level 135 MMOL/L (136-145) L 139 MMOL/L (136-145) Potassium Level 4.9 MMOL/L (3.5-5.1) 4.3 MMOL/L (3.5-5.1) Chloride Level 100 MMOL/L (98-107) 102 MMOL/L (98-107) Carbon Dioxide Level 33 MMOL/L (21-32) H 30 MMOL/L (21-32) Anion Gap 2 mmol/L (5-15) L 8 mmol/L (5-15) Blood Urea Nitrogen 28 mg/dL (7-18) H 24 mg/dL (7-18) H Creatinine 1.1 MG/DL (0.55-1.30) 0.9 MG/DL (0.55-1.30) Estimat Glomerular Filtration Rate mL/min (>60) mL/min (>60) Glucose Level 207 MG/DL (74-106) H 159 MG/DL (74-106) H Calcium Level 10.0 MG/DL (8.5-10.1) 10.0 MG/DL (8.5-10.1) Total Bilirubin 0.4 MG/DL (0.2-1.0) Aspartate Amino Transf (AST/SGOT) 12 U/L (15-37) L Alanine Aminotransferase (ALT/SGPT) 19 U/L (12-78) Alkaline Phosphatase 123 U/L (46-116) H Total Protein 7.4 G/DL (6.4-8.2) Albumin 2.8 G/DL (3.4-5.0) L Globulin 4.6 g/dL Albumin/Globulin Ratio 0.6 (1.0-2.7) L Microbiology Date/Time Source Procedure Growth Status 12/27/18 22:00 Urine,Clean Catch Urine Culture - Preliminary NO GROWTH Resulted Height (Feet): 5 Height (Inches): 11.00 Weight (Pounds): 180 Medications Current Medications Medications (Trade) Dose Ordered Sig/Levi Route PRN Reason Start Time Stop Time Status Last Admin Dose Admin Acetaminophen (Tylenol) 650 mg Q4H PRN ORAL fever 12/27/18 23:45 01/26/19 23:44 Albuterol/ Ipratropium (Albuterol/ Ipratropium) 3 ml Q4H PRN HHN Shortness of Breath 12/27/18 23:45 01/01/19 23:44 Amlodipine Besylate (Norvasc) 2.5 mg DAILY ORAL 12/28/18 09:00 01/27/19 08:59 12/28/18 08:28 Cefepime HCl 2 gm/ Dextrose 110 ml @ 220 mls/hr EVERY 12 HOURS IV 12/28/18 09:00 01/04/19 08:59 12/28/18 09:08 Dextrose (Dextrose 50%) 25 ml STAT PRN IV Hypoglycemia 12/28/18 11:45 01/27/19 11:44 Dextrose (Dextrose 50%) 50 ml STAT PRN IV Hypoglycemia 12/28/18 11:45 01/27/19 11:44 Finasteride (Proscar) 5 mg DAILY ORAL 12/28/18 09:00 01/27/19 08:59 12/28/18 08:28 Heparin Sodium (Porcine) (Heparin 5000 units/ml) 5,000 units EVERY 12 HOURS SUBQ 12/28/18 09:00 01/27/19 08:59 12/28/18 08:30 Insulin Aspart (NovoLOG) BEFORE MEALS AND HS SUBQ 12/28/18 06:30 01/27/19 06:29 12/28/18 17:10 Morphine Sulfate (Morphine Sulfate) 2 mg Q4H PRN IVP Moderate Pain (Pain Scale 4-6) 12/27/18 23:45 01/03/19 23:44 Nitroglycerin (Ntg) 0.4 mg Q5M PRN SL Prn Chest Pain 12/27/18 23:45 01/26/19 23:44 Ondansetron HCl (Zofran) 4 mg Q6H PRN IVP Nausea & Vomiting 12/27/18 23:45 01/26/19 23:44 Polyethylene Glycol (Miralax) 17 gm DAILYPRN PRN ORAL Constipation 12/27/18 23:45 01/26/19 23:44 Sodium Chloride 1,000 ml @ 75 mls/hr [id number] IV 12/27/18 01:00 01/26/19 00:59 12/28/18 17:12 Tamsulosin HCl (Flomax) 0.4 mg BEDTIME ORAL 12/28/18 21:00 01/27/19 20:59 Temazepam (Restoril) 15 mg HSPRN PRN ORAL Insomnia 12/27/18 23:45 01/03/19 23:44 Vancomycin HCl 1.5 gm/Sodium Chloride 275 ml @ 137.5 mls/ hr Q24H IVPB 12/28/18 21:00 01/02/19 20:59 Assessment/Plan Assessment/Plan: Abx: IV Vancomycin 12/27- Cefepime 12/27- Assessment: Probable UTI -u/a wbc tnct, nit, leuk +3; ucx NTD Afebrile Leukocytosis, improving Dislodged L Nephrostomy Tube hx of UTI bladder CA c/w hydronephrosis s/p nephrostomy - -11/25 SP Cystoscopy, urethral calibration, transurethral resection of extensive bladder tumor with fulguration, and right retrograde pyelogram. -Findings: The patient had what appeared to be a large bladder tumor that involved most of the left side of the bladder extending posteriorly and completely obliterating the left ureteral orifice. I was unable to place a stent on the left side. Recente hematochezia 2ry to hemorroids Dm2 Dementia HTN BPH urinary incontinence AV dissociation w/ conduction s/p PPM metabolic encephalopathy UTI seizure disorders CVA [facility] resident Plan: -Continue empiric Cefepime #2 pending Ucx -Dc empiric IV Vancomycin #2 -f/u cx -Monitor CBC/CMP, temperatures -uro eval -aspiration precautions Thank you for this consultation. Will continue to follow along with you. Discussed with Tawny Lopez M.D. December 28, 2018 18:04
--- NOTE | 2018-12-28 19:00 | History & Physical ---
History and Physical History & Physicial Dictated for Int Med-DR Lowe no. [id number]. Jean-Claude Peter MD December 28, 2018 19:00
--- NOTE | 2018-12-28 19:30 | NUR ---
NURSE NOTES: Received report from DONELL Boothe and rounds made. Received pt in bed, awake, alert x 2, confused, follows command, no distress noted. Pt is incontinent of urine. Kept pt clean and dry. IV L AC and L FA patent and intact. IV fluid infusing as ordered. Safety measures maintained. Bed in lowest position and locked, side rails up x 2, call light within reach. Will continue to monitor.
[2018-12-28 20:00] VITALS: BP 114/65
[2018-12-28] MEDS: Tamsulosin 0.4mg cap ORAL SCH (20:58)
[2018-12-28] MEDS ORDERED: Vancomycin 1.5 GM in NS 275 ML IVPB SCH (21:00)
--- NOTE | 2018-12-28 22:30 | Consultation ---
DATE OF CONSULTATION: 12/28/2018 CONSULTING PHYSICIAN: Macho Allen M.D. REFERRING PHYSICIAN: Jean-Claude Peter M.D. REASON FOR EVALUATION: Evaluation of dislodged nephrostomy. HISTORY OF PRESENT ILLNESS: This is a pleasant 83-year-old gentleman known to me from recent evaluation. I had seen last time in the hospital because of hydronephrosis. He was noted to have a bladder tumor that was obstructing the orifice. He was taken to the operating room about a month ago on November 24, 2018 for transurethral resection of bladder tumor and fulguration. Unfortunately, the tumor was obstructing the left ureteral orifice and was not able to place an indwelling stent in a retrograde fashion and as such he underwent placement of a nephrostomy tube by interventional Radiology on 11/26/2018. There was an attempt to do a procedure to internalize the stent which was met with obstruction distally and procedure was supposed to be repeated; however, there was some difficulty with obtaining a consent and he was sent to the group home with left nephrostomy in place. Subsequently the nephrostomy was dislodged and he was sent to the emergency room last night. He has been incontinent. He has a condom catheter. Urinary tract infection was noted. PAST MEDICAL HISTORY: Significant for above, also history of diabetes, coronary artery disease, mild dementia, hypertension. PAST SURGICAL HISTORY: As above. CURRENT MEDICATIONS: Here in the hospital, the patient is on Flomax. He is on Norvasc, Proscar, cefepime, heparin, insulin, albuterol, morphine, MiraLAX, Zofran, Restoril, nitroglycerin. ALLERGIES: No known drug allergies. SOCIAL HISTORY: Smoking history is unknown. Currently, he is in the group home. FAMILY HISTORY: Unable to obtain. FAMILY HISTORY: Unknown. PHYSICAL EXAMINATION: GENERAL: Elderly male. VITAL SIGNS: Temperature is 98.1, blood pressure 150/62, pulse 69, respirations 17. HEENT: Normocephalic. NECK: Supple. ABDOMEN: Soft. Condom catheter is in place. Juanita urine. LABORATORY DATA: Admit UA showed 2 to 4 rbc's, too numerous to count wbc's, and moderate bacteria. White count is 10.8, hemoglobin 11.8, platelets is 214. BUN is 24, creatinine 0.9, and potassium 4.3. His urine culture is negative so far. DIAGNOSTIC IMAGING STUDIES: His old imaging studies were reviewed. There is no new imaging studies from this admission. IMPRESSION: 1. History of left-sided hydronephrosis with dislodged nephrostomy tube. 2. Bladder cancer history. 3. Benign prostatic hypertrophy. 4. Lower urinary tract symptoms. 5. Neurogenic bladder. 6. Hematuria. 7. Pyuria. 8. Proteinuria. PLAN AND DISCUSSION: Again the patient does have a history of bladder cancer with obstruction of left ureteral orifice and left hydronephrosis. He had a nephrostomy tube in place, which has been dislodged. He is relatively comfortable with stable renal function. I will obtain and order renal ultrasound to see the degree of hydronephrosis and at some point we may have to have interventional Radiology replace a nephrostomy tube or consider doing repeat cystoscopy and see there is way we can pass a stent in a retrograde fashion. In the meantime, the patient is to continue with antibiotics as ordered as well as Flomax and Proscar. Macho Allen M.D. DR: Oscar JOB#: [id number] CC:
--- NOTE | 2018-12-28 22:30 | History and Physical Report ---
DATE OF ADMISSION: 12/27/2018 CHIEF COMPLAINT: The patient is an 83-year-old, male, who presents with a chief complaint of dislodged nephrostomy tube. HISTORY OF PRESENT ILLNESS: The patient was admitted to [facility] from 11/22/2018 to 12/10/2018. The patient is status post transurethral resection of bladder mass and left nephrostomy during that hospitalization. The patient was discharged to [facility]. According to staff at [facility], the patient dislodged his left nephrostomy tube yesterday, 12/27/2018. The patient presented to [place] emergency room. The patient is admitted for dislodged left nephrostomy tube. REVIEW OF SYSTEMS: Unable to assess secondary to the patient's mental status. PAST MEDICAL HISTORY: Significant for, 1. Bladder cancer, diagnosed in November 2018. 2. Hypertension. 3. Diabetes type 2. 4. AV conduction defect. 5. Alzheimer's dementia. 6. Left hydronephrosis. PAST SURGICAL HISTORY: Significant for, 1. Pacemaker. 2. Transurethral bladder mass resection on 11/24/2018. 3. Left nephrostomy tube placed on 11/26/2018. CURRENT MEDICATIONS: 1. Amlodipine 2.5 mg p.o. daily. 2. Iron sulfate 325 mg p.o. daily. 3. Finasteride 5 mg p.o. daily. 4. Lisinopril 20 mg p.o. daily. 5. Metformin 1000 mg p.o. twice daily. 6. Starlix 120 mg p.o. 3 times daily. 7. Flomax 0.4 mg p.o. at bedtime. ALLERGIES: No known drug allergies. SOCIAL HISTORY: The patient is single and is a resident of [facility]. The patient denies tobacco or alcohol use. PHYSICAL EXAMINATION: VITAL SIGNS: Temperature 97.5, respirations 18, pulse 63, and blood pressure 137/66. GENERAL: The patient is a well-developed and well-nourished male, in no apparent distress. HEENT: Eyes, pupils are equal and responsive to light and accommodation. Extraocular movements are intact. NECK: Supple without lymphadenopathy. CHEST: Lungs are clear to auscultation bilaterally without wheezes or rales. CARDIOVASCULAR: Regular rhythm and rate. S1 and S2 are normal without murmurs, rubs, or gallops. ABDOMEN: Soft, nontender, and nondistended. Positive bowel sounds. No evidence of hepatosplenomegaly. Currently, no rebound or guarding noted. EXTREMITIES: Negative for clubbing, cyanosis, edema. RECTAL/GENITAL: Not performed. NEUROLOGIC: Cranial nerves II through XII are grossly intact without focal deficits. LABORATORY STUDIES: WBC 12.6, hemoglobin 12.4, hematocrit 35.0, and platelets 143,000. Sodium 135, potassium 4.9, chloride 100, CO2 33, BUN 28, creatinine 1.1, and glucose 207. Urinalysis showed 3+ protein, 4+ blood, nitrite positive with 3+ leukocyte esterase, and wbc's too numerous to count. ASSESSMENT: This is an 83-year-old male. 1. Urinary tract infection. 2. Pyelonephritis. 3. Dislodged left nephrostomy tube. 4. Left hydronephrosis. 5. Bladder cancer. 6. Hypertension. 7. Diabetes type 2. 8. AV conduction defect. 9. Alzheimer's dementia. TREATMENT: 1. Dislodged left nephrostomy tube. A Urology consultation has been obtained with Dr. Macho Allen. We will follow recommendations of Urology. The patient may require replacement of left nephrostomy tube. 2. Urinary tract infection/pyelonephritis. A urine culture is pending. The patient has been started empirically on vancomycin intravenously. The patient has also been started on cefepime. An Infectious Disease consultation has been obtained with Dr. Darby. 3. Hypertension. Continue Norvasc as above. 4. Diabetes type 2. NovoLog sliding scale has been instituted. 5. AV conduction defect. The patient is status post pacemaker. 6. Alzheimer's dementia. Jean-Claude Peter M.D. DR: AMANDA JOB#: [id number] CC:
[2018-12-29] VITALS: BP 136/57
[2018-12-29 04:00] VITALS: BP 154/70
[2018-12-29] MEDS: NovoLOG Insulin Flexpen SUBQ SCH ×4 (06:11→20:38)
--- NOTE | 2018-12-29 07:43 | Urology Progress Note ---
Assessment/Plan Assessment/Plan: 1. History of left-sided hydronephrosis with dislodged nephrostomy tube. 2. Bladder cancer history. 3. Benign prostatic hypertrophy. 4. Lower urinary tract symptoms. 5. Neurogenic bladder. 6. Hematuria. 7. Pyuria. 8. Proteinuria. monitor clinically check renal u/s today for hydro consider CT A/P may need to replace nephrostomy or repeat trial of cysto/stent consider med onc eval cont flomax and proscar abx as ordered f/u on urine cx Subjective Allergies: Coded Allergies: No Known Allergies (Unverified , 04/09/16) Subjective all noted, looks comfortable Objective Last 24 Hour Vital Signs Date Time Temp Pulse Resp B/P (MAP) Pulse Ox O2 Delivery O2 Flow Rate FiO2 12/29/18 07:20 66 18 99 Room Air 21 12/29/18 04:00 98.6 63 18 154/70 (98) 100 12/29/18 00:00 98.1 61 20 136/57 (83) 99 12/28/18 21:00 Room Air 12/28/18 20:00 98.5 68 18 114/65 (81) 98 12/28/18 19:52 65 20 98 Room Air 21 12/28/18 15:47 98.0 69 17 150/62 (91) 98 12/28/18 12:00 97.6 66 18 118/74 (89) 100 12/28/18 08:28 61 130/60 12/28/18 07:54 97.4 61 18 130/60 (83) 100 Intake and Output 12/28/18 12/29/18 19:00 07:00 Intake Total 2135 ml 860 ml Output Total 850 ml Balance 1285 ml 860 ml Intake Oral 1200 ml IV Total 935 ml 860 ml Output Urine Total 850 ml # Voids 2 Microbiology Date/Time Source Procedure Growth Status 12/27/18 22:00 Urine,Clean Catch Urine Culture - Preliminary NO GROWTH Resulted Current Medications Medications (Trade) Dose Ordered Sig/Levi Route PRN Reason Start Time Stop Time Status Last Admin Dose Admin Acetaminophen (Tylenol) 650 mg Q4H PRN ORAL fever 12/27/18 23:45 01/26/19 23:44 Albuterol/ Ipratropium (Albuterol/ Ipratropium) 3 ml Q4H PRN HHN Shortness of Breath 12/27/18 23:45 01/01/19 23:44 Amlodipine Besylate (Norvasc) 2.5 mg DAILY ORAL 12/28/18 09:00 01/27/19 08:59 12/28/18 08:28 Cefepime HCl 2 gm/ Dextrose 110 ml @ 220 mls/hr EVERY 12 HOURS IV 12/28/18 09:00 01/04/19 08:59 12/28/18 21:00 Dextrose (Dextrose 50%) 25 ml STAT PRN IV Hypoglycemia 12/28/18 11:45 01/27/19 11:44 Dextrose (Dextrose 50%) 50 ml STAT PRN IV Hypoglycemia 12/28/18 11:45 01/27/19 11:44 Finasteride (Proscar) 5 mg DAILY ORAL 12/28/18 09:00 01/27/19 08:59 12/28/18 08:28 Heparin Sodium (Porcine) (Heparin 5000 units/ml) 5,000 units EVERY 12 HOURS SUBQ 12/28/18 09:00 01/27/19 08:59 12/28/18 21:03 Insulin Aspart (NovoLOG) BEFORE MEALS AND HS SUBQ 12/28/18 06:30 01/27/19 06:29 12/29/18 06:11 Morphine Sulfate (Morphine Sulfate) 2 mg Q4H PRN IVP Moderate Pain (Pain Scale 4-6) 12/27/18 23:45 01/03/19 23:44 Nitroglycerin (Ntg) 0.4 mg Q5M PRN SL Prn Chest Pain 12/27/18 23:45 01/26/19 23:44 Ondansetron HCl (Zofran) 4 mg Q6H PRN IVP Nausea & Vomiting 12/27/18 23:45 01/26/19 23:44 Polyethylene Glycol (Miralax) 17 gm DAILYPRN PRN ORAL Constipation 12/27/18 23:45 01/26/19 23:44 Sodium Chloride 1,000 ml @ 75 mls/hr [id number] IV 12/27/18 01:00 01/26/19 00:59 12/29/18 06:03 Tamsulosin HCl (Flomax) 0.4 mg BEDTIME ORAL 12/28/18 21:00 01/27/19 20:59 12/28/18 20:58 Temazepam (Restoril) 15 mg HSPRN PRN ORAL Insomnia 12/27/18 23:45 01/03/19 23:44 Height (Feet): 5 Height (Inches): 11.00 Weight (Pounds): 180 Objective exam stable Macho Allen MD December 29, 2018 07:43
--- NOTE | 2018-12-29 07:46 | NUR ---
HAND-OFF: Report given to DONELL Kauffman. Pt in stable condition.
[2018-12-29 08:00] VITALS: BP 122/68
--- NOTE | 2018-12-29 08:00 | NUR ---
NURSE NOTES: Received report from Braulio Chavez pt laying in bed a/a/o x2-3 with no signs of distress or other issues at this time. pt able to tolerate his diet with no n/v. IV on the left AC gauge#18 and left arm gauge#22 running NS @75ml/hr. per report pt wound dressing was changed on 12/28 and it will need to change again on 01/04/19. call light with in reach, bed in lowest position. side rales up x2 as well as padded for seizure precautions. plan: for PT eval and tx and for Renal UA to r/o hydronephrosis. I will f/u as needed.
[2018-12-29 08:02] LABS: EOSINOPHILS % (AUTO) 0.1 % (0.0-3.0); HEMATOCRIT 32.6 % (42.0-52.0); HEMOGLOBIN 11.2 G/DL (14.2-18.0); MEAN CORPUSCULAR VOLUME 87 FL (80-99); PLATELET COUNT 188 K/UL (150-450); RED BLOOD COUNT 3.76 M/UL (4.70-6.10); RED CELL DISTRIBUTION WIDTH 11.3 % (11.6-14.8); WHITE BLOOD COUNT 8.5 K/UL (4.8-10.8)
[2018-12-29 08:22] LABS: ANION GAP 6 mmol/L (5-15); BLOOD UREA NITROGEN 21 mg/dL (7-18); CALCIUM 9.6 MG/DL (8.5-10.1); CARBON DIOXIDE 32 MMOL/L (21-32); CHLORIDE 106 MMOL/L (98-107); CREATININE 0.9 MG/DL (0.55-1.30); POTASSIUM 4.3 MMOL/L (3.5-5.1); SODIUM 143 MMOL/L (136-145)
[2018-12-29] MEDS: Heparin 5000 units/ml inj SUBQ SCH ×2 (08:34→20:38)
[2018-12-29] MEDS: Cefepime HCl 2 GM in D5W 110 ML IV SCH ×2 (08:35→20:30)
[2018-12-29 12:00] VITALS: BP 111/56
--- NOTE | 2018-12-29 12:05 | NUR ---
P.T NOTE: P.T EVALUATION COMPLETED AND TREATMENT INITIATED. PLEASE REFER TO P.T EVALUATION FOR CURRENT FUNCTIONAL STATUS. PATIENT IS ALERT, OX 3, PLEASANT AND COOPERATIVE. NO C/O PAIN NOR DISCOMFORT BUT FEELING GENERALLY WEAK. PATIENT CURRENTLY REQUIRE MOD A X 1 FOR BED MOBILITY, TRANSFERS AND GAIT/AMBULATION ACTIVITIES FOR SHORT DISTANCES USING THE FWW. SKILLED P.T SERVICE IS WARRANTED TO IMPROVE HIS STRENGTH, BALANCE AND ENDURANCE TO INCREASE FUNCTIONAL MOBILITY INDEPENDENCE AND SAFETY DURING STAY. RECOMMEND RETURN TO SNF FOR FURTHER REHAB [place]. PATIENT IS CLEARED FOR OOB ACTIVITIES WITH NURSING ASSISTANCE.
--- NOTE | 2018-12-29 12:06 | Pulmonology Progress Note ---
Assessment/Plan Problems: (1) UTI (urinary tract infection) (2) HTN (hypertension) (3) Nephrostomy tube displaced (4) Bladder neoplasm (5) Alzheimer's dementia (6) Diabetes mellitus (7) Chronic cerebrovascular accident (CVA) Assessment/Plan check cultures continue iv abx sliding scale diabetic diet Monitor BP dvt prophylaxis. Subjective ROS Limited/Unobtainable: No Constitutional: Reports: no symptoms HEENT: Repors: no symptoms Respiratory: Reports: no symptoms Allergies: Coded Allergies: No Known Allergies (Unverified , 04/09/16) Objective Last 24 Hour Vital Signs Date Time Temp Pulse Resp B/P (MAP) Pulse Ox O2 Delivery O2 Flow Rate FiO2 12/29/18 09:00 Room Air 12/29/18 08:35 62 122/68 12/29/18 08:00 98.0 62 21 122/68 (86) 97 12/29/18 07:20 66 18 99 Room Air 21 12/29/18 04:00 98.6 63 18 154/70 (98) 100 12/29/18 00:00 98.1 61 20 136/57 (83) 99 12/28/18 21:00 Room Air 12/28/18 20:00 98.5 68 18 114/65 (81) 98 12/28/18 19:52 65 20 98 Room Air 21 12/28/18 15:47 98.0 69 17 150/62 (91) 98 Intake and Output 12/28/18 12/29/18 19:00 07:00 Intake Total 2135 ml 860 ml Output Total 850 ml Balance 1285 ml 860 ml Intake Oral 1200 ml IV Total 935 ml 860 ml Output Urine Total 850 ml # Voids 2 General Appearance: WD/WN HEENT: normocephalic Respiratory/Chest: chest wall non-tender, lungs clear Cardiovascular: normal peripheral pulses, normal rate Abdomen: normal bowel sounds, soft, non tender, no scars Genitourinary: normal external genitalia Extremities: no clubbing Skin: no rash Microbiology Date/Time Source Procedure Growth Status 12/27/18 22:00 Urine,Clean Catch Urine Culture - Preliminary Resulted Laboratory Tests 12/29/18 07:19: White Blood Count 8.5, Red Blood Count 3.76L, Hemoglobin 11.2L, Hematocrit 32.6L , Mean Corpuscular Volume 87, Mean Corpuscular Hemoglobin 29.9, Mean Corpuscular Hemoglobin Concent 34.5, Red Cell Distribution Width 11.3L, Platelet Count 188, Mean Platelet Volume 5.8L, Neutrophils (%) (Auto) 70.0, Lymphocytes (%) (Auto) 23.0, Monocytes (%) (Auto) 6.0, Eosinophils (%) (Auto) 0.1, Basophils (%) (Auto) 1.0, Sodium Level 143, Potassium Level 4.3, Chloride Level 106, Carbon Dioxide Level 32, Anion Gap 6, Blood Urea Nitrogen 21H, Creatinine 0.9, Estimat Glomerular Filtration Rate , Glucose Level 120H, Calcium Level 9.6 Current Medications Medications (Trade) Dose Ordered Sig/Levi Route PRN Reason Start Time Stop Time Status Last Admin Dose Admin Acetaminophen (Tylenol) 650 mg Q4H PRN ORAL fever 12/27/18 23:45 01/26/19 23:44 Albuterol/ Ipratropium (Albuterol/ Ipratropium) 3 ml Q4H PRN HHN Shortness of Breath 12/27/18 23:45 01/01/19 23:44 Amlodipine Besylate (Norvasc) 2.5 mg DAILY ORAL 12/28/18 09:00 01/27/19 08:59 12/29/18 08:35 Cefepime HCl 2 gm/ Dextrose 110 ml @ 220 mls/hr EVERY 12 HOURS IV 12/28/18 09:00 01/04/19 08:59 12/29/18 08:35 Dextrose (Dextrose 50%) 25 ml STAT PRN IV Hypoglycemia 12/28/18 11:45 01/27/19 11:44 Dextrose (Dextrose 50%) 50 ml STAT PRN IV Hypoglycemia 12/28/18 11:45 01/27/19 11:44 Finasteride (Proscar) 5 mg DAILY ORAL 12/28/18 09:00 01/27/19 08:59 12/29/18 08:35 Heparin Sodium (Porcine) (Heparin 5000 units/ml) 5,000 units EVERY 12 HOURS SUBQ 12/28/18 09:00 01/27/19 08:59 12/29/18 08:34 Insulin Aspart (NovoLOG) BEFORE MEALS AND HS SUBQ 12/28/18 06:30 01/27/19 06:29 12/29/18 12:03 Morphine Sulfate (Morphine Sulfate) 2 mg Q4H PRN IVP Moderate Pain (Pain Scale 4-6) 12/27/18 23:45 01/03/19 23:44 Nitroglycerin (Ntg) 0.4 mg Q5M PRN SL Prn Chest Pain 12/27/18 23:45 01/26/19 23:44 Ondansetron HCl (Zofran) 4 mg Q6H PRN IVP Nausea & Vomiting 12/27/18 23:45 01/26/19 23:44 Polyethylene Glycol (Miralax) 17 gm DAILYPRN PRN ORAL Constipation 12/27/18 23:45 01/26/19 23:44 Sodium Chloride 1,000 ml @ 75 mls/hr [id number] IV 12/27/18 01:00 01/26/19 00:59 12/29/18 06:03 Tamsulosin HCl (Flomax) 0.4 mg BEDTIME ORAL 12/28/18 21:00 01/27/19 20:59 12/28/18 20:58 Temazepam (Restoril) 15 mg HSPRN PRN ORAL Insomnia 12/27/18 23:45 01/03/19 23:44 Og Hinkle MD December 29, 2018 12:06
--- NOTE | 2018-12-29 15:40 | NUR ---
RD ASSESSMENT & RECOMMENDATIONS SEE CARE ACTIVITY FOR COMPLETE ASSESSMENT DAILY ESTIMATED NEEDS: Needs based on DM 75kg adj 25-30 kcals/kg 0373-7246 total kcals 1-1.5 g protein/kg 75-113 g total protein 20-25 mL/kg 3391-0152 total fluid mLs NUTRITION DIAGNOSIS: * Increased kcal/prot intake needs R/T wound healing as evidenced by pt admitted w/ non-blanchable erythema @ BL heels and buttocks. * Swallowing and chewing difficulty R/T dysphagia and poor dentition as evidenced by pt on pureed moist texture, NTL. CURRENT DIET:CCHO MED, pureed w/ NTL PO DIET RECOMMENDATIONS: CCHO MED / texture per TRAY FILLER ADDITIONAL RECOMMENDATIONS: 1) Calibrated bedscale wt for accurate CBW 2) TRAY FILLER evaluation for appropriate texture 3) Monitor for continued good PO intake 4) Wound healing: add MVI x 1, William 1pkt BID . . .
[2018-12-29 16:00] VITALS: BP 133/68
--- NOTE | 2018-12-29 16:37 | Infectious Diseases Prog Note ---
Assessment/Plan Assessment/Plan Abx: IV Vancomycin 12/27- Cefepime 12/27- Assessment: Probable UTI -u/a wbc tnct, nit, leuk +3; ucx P Afebrile Leukocytosis, SP Dislodged L Nephrostomy Tube hx of UTI bladder CA c/w hydronephrosis s/p nephrostomy - -11/25 SP Cystoscopy, urethral calibration, transurethral resection of extensive bladder tumor with fulguration, and right retrograde pyelogram. -Findings: The patient had what appeared to be a large bladder tumor that involved most of the left side of the bladder extending posteriorly and completely obliterating the left ureteral orifice. I was unable to place a stent on the left side. Recente hematochezia 2ry to hemorroids Dm2 Dementia HTN BPH urinary incontinence AV dissociation w/ conduction s/p PPM metabolic encephalopathy UTI seizure disorders CVA [facility] resident Plan: -Continue empiric Cefepime #3/-7 pending Ucx -12/28 SP IV Vancomycin #2 -f/u cx -Monitor CBC/CMP, temperatures -uro eval -aspiration precautions Thank you for this consultation. Will continue to follow along with you. Discussed with RN. Subjective Allergies: Coded Allergies: No Known Allergies (Unverified , 04/09/16) Subjective afebrile no leukocytosis Objective Vital Signs Last 24 Hour Vital Signs Date Time Temp Pulse Resp B/P (MAP) Pulse Ox O2 Delivery O2 Flow Rate FiO2 12/29/18 12:00 97.0 70 18 111/56 (74) 97 12/29/18 09:00 Room Air 12/29/18 08:35 62 122/68 12/29/18 08:00 98.0 62 21 122/68 (86) 97 12/29/18 07:20 66 18 99 Room Air 21 12/29/18 04:00 98.6 63 18 154/70 (98) 100 12/29/18 00:00 98.1 61 20 136/57 (83) 99 12/28/18 21:00 Room Air 12/28/18 20:00 98.5 68 18 114/65 (81) 98 12/28/18 19:52 65 20 98 Room Air 21 Height (Feet): 5 Height (Inches): 11.00 Weight (Pounds): 180 Objective General Appearance: well appearing, no apparent distress, alert Head: normocephalic, atraumatic Eyes: bilateral eye PERRL, bilateral eye EOMI ENT: hearing grossly normal, normal pharynx Neck: full range of motion, supple, no meningismus Respiratory: chest non-tender, lungs clear, normal breath sounds Cardiovascular #1: regular rate, rhythm, no murmur Gastrointestinal: normal bowel sounds, non tender, no mass, no organomegaly, no bruit, non-distended Musculoskeletal: back normal, gait/station normal, normal range of motion, other - No active drainage from left flank Psychiatric: mood/affect normal Skin: warm/dry Microbiology Date/Time Source Procedure Growth Status 12/27/18 22:00 Urine,Clean Catch Urine Culture - Preliminary Resulted Laboratory Tests Test 12/29/18 07:19 White Blood Count 8.5 K/UL (4.8-10.8) Red Blood Count 3.76 M/UL (4.70-6.10) L Hemoglobin 11.2 G/DL (14.2-18.0) L Hematocrit 32.6 % (42.0-52.0) L Mean Corpuscular Volume 87 FL (80-99) Mean Corpuscular Hemoglobin 29.9 PG (27.0-31.0) Mean Corpuscular Hemoglobin Concent 34.5 G/DL (32.0-36.0) Red Cell Distribution Width 11.3 % (11.6-14.8) L Platelet Count 188 K/UL (150-450) Mean Platelet Volume 5.8 FL (6.5-10.1) L Neutrophils (%) (Auto) 70.0 % (45.0-75.0) Lymphocytes (%) (Auto) 23.0 % (20.0-45.0) Monocytes (%) (Auto) 6.0 % (1.0-10.0) Eosinophils (%) (Auto) 0.1 % (0.0-3.0) Basophils (%) (Auto) 1.0 % (0.0-2.0) Sodium Level 143 MMOL/L (136-145) Potassium Level 4.3 MMOL/L (3.5-5.1) Chloride Level 106 MMOL/L (98-107) Carbon Dioxide Level 32 MMOL/L (21-32) Anion Gap 6 mmol/L (5-15) Blood Urea Nitrogen 21 mg/dL (7-18) H Creatinine 0.9 MG/DL (0.55-1.30) Estimat Glomerular Filtration Rate mL/min (>60) Glucose Level 120 MG/DL (74-106) H Calcium Level 9.6 MG/DL (8.5-10.1) Current Medications Medications (Trade) Dose Ordered Sig/Levi Route PRN Reason Start Time Stop Time Status Last Admin Dose Admin Acetaminophen (Tylenol) 650 mg Q4H PRN ORAL fever 12/27/18 23:45 01/26/19 23:44 Albuterol/ Ipratropium (Albuterol/ Ipratropium) 3 ml Q4H PRN HHN Shortness of Breath 12/27/18 23:45 01/01/19 23:44 Amlodipine Besylate (Norvasc) 2.5 mg DAILY ORAL 12/28/18 09:00 01/27/19 08:59 12/29/18 08:35 Cefepime HCl 2 gm/ Dextrose 110 ml @ 220 mls/hr EVERY 12 HOURS IV 12/28/18 09:00 01/04/19 08:59 12/29/18 08:35 Dextrose (Dextrose 50%) 25 ml STAT PRN IV Hypoglycemia 12/28/18 11:45 01/27/19 11:44 Dextrose (Dextrose 50%) 50 ml STAT PRN IV Hypoglycemia 12/28/18 11:45 01/27/19 11:44 Finasteride (Proscar) 5 mg DAILY ORAL 12/28/18 09:00 01/27/19 08:59 12/29/18 08:35 Heparin Sodium (Porcine) (Heparin 5000 units/ml) 5,000 units EVERY 12 HOURS SUBQ 12/28/18 09:00 01/27/19 08:59 12/29/18 08:34 Insulin Aspart (NovoLOG) BEFORE MEALS AND HS SUBQ 12/28/18 06:30 01/27/19 06:29 12/29/18 16:22 Morphine Sulfate (Morphine Sulfate) 2 mg Q4H PRN IVP Moderate Pain (Pain Scale 4-6) 12/27/18 23:45 01/03/19 23:44 Nitroglycerin (Ntg) 0.4 mg Q5M PRN SL Prn Chest Pain 12/27/18 23:45 01/26/19 23:44 Ondansetron HCl (Zofran) 4 mg Q6H PRN IVP Nausea & Vomiting 12/27/18 23:45 01/26/19 23:44 Polyethylene Glycol (Miralax) 17 gm DAILYPRN PRN ORAL Constipation 12/27/18 23:45 01/26/19 23:44 Sodium Chloride 1,000 ml @ 75 mls/hr [id number] IV 12/27/18 01:00 01/26/19 00:59 12/29/18 06:03 Tamsulosin HCl (Flomax) 0.4 mg BEDTIME ORAL 12/28/18 21:00 01/27/19 20:59 12/28/18 20:58 Temazepam (Restoril) 15 mg HSPRN PRN ORAL Insomnia 12/27/18 23:45 01/03/19 23:44 Tawny Darby M.D. December 29, 2018 16:37
--- NOTE | 2018-12-29 17:44 | Internal Med Progress Note ---
Subjective Date of Service: December 29, 2018 Physician Name Jean-Claude Peter Attending Physician Jaziel Lowe MD Current Medications Medications (Trade) Dose Ordered Sig/Levi Route PRN Reason Start Time Stop Time Status Last Admin Dose Admin Acetaminophen (Tylenol) 650 mg Q4H PRN ORAL fever 12/27/18 23:45 01/26/19 23:44 Albuterol/ Ipratropium (Albuterol/ Ipratropium) 3 ml Q4H PRN HHN Shortness of Breath 12/27/18 23:45 01/01/19 23:44 Amlodipine Besylate (Norvasc) 2.5 mg DAILY ORAL 12/28/18 09:00 01/27/19 08:59 12/29/18 08:35 Cefepime HCl 2 gm/ Dextrose 110 ml @ 220 mls/hr EVERY 12 HOURS IV 12/28/18 09:00 01/04/19 08:59 12/29/18 08:35 Dextrose (Dextrose 50%) 25 ml STAT PRN IV Hypoglycemia 12/28/18 11:45 01/27/19 11:44 Dextrose (Dextrose 50%) 50 ml STAT PRN IV Hypoglycemia 12/28/18 11:45 01/27/19 11:44 Finasteride (Proscar) 5 mg DAILY ORAL 12/28/18 09:00 01/27/19 08:59 12/29/18 08:35 Heparin Sodium (Porcine) (Heparin 5000 units/ml) 5,000 units EVERY 12 HOURS SUBQ 12/28/18 09:00 01/27/19 08:59 12/29/18 08:34 Insulin Aspart (NovoLOG) BEFORE MEALS AND HS SUBQ 12/28/18 06:30 01/27/19 06:29 12/29/18 16:22 Morphine Sulfate (Morphine Sulfate) 2 mg Q4H PRN IVP Moderate Pain (Pain Scale 4-6) 12/27/18 23:45 01/03/19 23:44 Nitroglycerin (Ntg) 0.4 mg Q5M PRN SL Prn Chest Pain 12/27/18 23:45 01/26/19 23:44 Ondansetron HCl (Zofran) 4 mg Q6H PRN IVP Nausea & Vomiting 12/27/18 23:45 01/26/19 23:44 Polyethylene Glycol (Miralax) 17 gm DAILYPRN PRN ORAL Constipation 12/27/18 23:45 01/26/19 23:44 Sodium Chloride 1,000 ml @ 75 mls/hr [id number] IV 12/27/18 01:00 01/26/19 00:59 12/29/18 06:03 Tamsulosin HCl (Flomax) 0.4 mg BEDTIME ORAL 12/28/18 21:00 01/27/19 20:59 12/28/18 20:58 Temazepam (Restoril) 15 mg HSPRN PRN ORAL Insomnia 12/27/18 23:45 01/03/19 23:44 Allergies: Coded Allergies: No Known Allergies (Unverified , 04/09/16) ROS Limited/Unobtainable: No Constitutional: Reports: no symptoms HEENT: Reports: no symptoms Cardiovascular: Reports: no symptoms Respiratory: Reports: no symptoms Gastrointestinal/Abdominal: Reports: no symptoms Genitourinary: Reports: no symptoms 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: Reports: no symptoms Subjective 83 YO M admitted with dislodged left nephrostomy tube. Now pyelonephritis. Cover for Int Med-Dr Lowe. Objective Last Vital Signs Date Time Temp Pulse Resp B/P (MAP) Pulse Ox O2 Delivery O2 Flow Rate FiO2 12/29/18 16:00 97.7 76 18 133/68 (89) 100 12/29/18 09:00 Room Air 12/29/18 07:20 21 Laboratory Tests Test 12/29/18 07:19 White Blood Count 8.5 K/UL (4.8-10.8) Red Blood Count 3.76 M/UL (4.70-6.10) L Hemoglobin 11.2 G/DL (14.2-18.0) L Hematocrit 32.6 % (42.0-52.0) L Mean Corpuscular Volume 87 FL (80-99) Mean Corpuscular Hemoglobin 29.9 PG (27.0-31.0) Mean Corpuscular Hemoglobin Concent 34.5 G/DL (32.0-36.0) Red Cell Distribution Width 11.3 % (11.6-14.8) L Platelet Count 188 K/UL (150-450) Mean Platelet Volume 5.8 FL (6.5-10.1) L Neutrophils (%) (Auto) 70.0 % (45.0-75.0) Lymphocytes (%) (Auto) 23.0 % (20.0-45.0) Monocytes (%) (Auto) 6.0 % (1.0-10.0) Eosinophils (%) (Auto) 0.1 % (0.0-3.0) Basophils (%) (Auto) 1.0 % (0.0-2.0) Sodium Level 143 MMOL/L (136-145) Potassium Level 4.3 MMOL/L (3.5-5.1) Chloride Level 106 MMOL/L (98-107) Carbon Dioxide Level 32 MMOL/L (21-32) Anion Gap 6 mmol/L (5-15) Blood Urea Nitrogen 21 mg/dL (7-18) H Creatinine 0.9 MG/DL (0.55-1.30) Estimat Glomerular Filtration Rate mL/min (>60) Glucose Level 120 MG/DL (74-106) H Calcium Level 9.6 MG/DL (8.5-10.1) Microbiology Date/Time Source Procedure Growth Status 12/27/18 22:00 Urine,Clean Catch Urine Culture - Preliminary Resulted Intake and Output 12/28/18 12/29/18 19:00 07:00 Intake Total 2135 ml 860 ml Output Total 850 ml Balance 1285 ml 860 ml Intake Oral 1200 ml IV Total 935 ml 860 ml Output Urine Total 850 ml # Voids 2 Objective PHYSICAL EXAMINATION: GENERAL: The patient is a well-developed and well-nourished male, in no apparent distress. HEENT: Eyes, pupils are equal and responsive to light and accommodation. Extraocular movements are intact. NECK: Supple without lymphadenopathy. CHEST: Lungs are clear to auscultation bilaterally without wheezes or rales. CARDIOVASCULAR: Regular rhythm and rate. S1 and S2 are normal without murmurs, rubs, or gallops. ABDOMEN: Soft, nontender, and nondistended. Positive bowel sounds. No evidence of hepatosplenomegaly. Currently, no rebound or guarding noted. EXTREMITIES: Negative for clubbing, cyanosis, edema. RECTAL/GENITAL: Not performed. NEUROLOGIC: Cranial nerves II through XII are grossly intact without focal deficits. Assessment/Plan Assessment/Plan ASSESSMENT: This is an 83-year-old male. 1. Urinary tract infection. 2. Pyelonephritis. 3. Dislodged left nephrostomy tube. 4. Left hydronephrosis. 5. Bladder cancer. 6. Hypertension. 7. Diabetes type 2. 8. AV conduction defect. 9. Alzheimer's dementia. TREATMENT: 1. Dislodged left nephrostomy tube. A Urology consultation has been obtained with Dr. Macho Allen. We will follow recommendations of Urology. The patient may require replacement of left nephrostomy tube. 2. Urinary tract infection/pyelonephritis. A urine culture is pending. The patient has been started empirically on vancomycin intravenously. The patient has also been started on cefepime. An Infectious Disease consultation has been obtained with Dr. Darby. 3. Hypertension. Continue Norvasc as above. 4. Diabetes type 2. NovoLog sliding scale has been instituted. 5. AV conduction defect. The patient is status post pacemaker. 6. Alzheimer's dementia. Jean-Claude Peter MD December 29, 2018 17:44
[2018-12-29] MEDS ORDERED: Isovue-300 100ml vial INJ PRN (18:00)
--- NOTE | 2018-12-29 19:17 | NUR ---
HAND-OFF: Report given to Braulio Chavez pt in stable condition.
--- NOTE | 2018-12-29 19:50 | NUR ---
NURSE NOTES: Received pt in bed, awake, alert x 2 - 3, denies any pain, no distress noted. IV fluid infusing as ordered. Safety measures maintained. Will continue to monitor.
[2018-12-29 20:00] VITALS: BP 136/63
[2018-12-29] MEDS: Tamsulosin 0.4mg cap ORAL SCH (20:30)
[2018-12-30] VITALS: BP 132/70
[2018-12-30 04:00] VITALS: BP 132/61
[2018-12-30] MEDS: NovoLOG Insulin Flexpen SUBQ SCH ×4 (05:55→21:12)
[2018-12-30 07:11] LABS: BASOPHILS % (AUTO) 1.2 % (0.0-2.0); EOSINOPHILS % (AUTO) 0.1 % (0.0-3.0); HEMATOCRIT 31.7 % (42.0-52.0); HEMOGLOBIN 10.9 G/DL (14.2-18.0); LYMPHOCYTES % (AUTO) 19.9 % (20.0-45.0); MEAN CORPUSCULAR VOLUME 86 FL (80-99); MONOCYTES % (AUTO) 6.1 % (1.0-10.0); NEUTROPHILS % (AUTO) 72.7 % (45.0-75.0); PLATELET COUNT 185 K/UL (150-450); RED CELL DISTRIBUTION WIDTH 11.1 % (11.6-14.8); WHITE BLOOD COUNT 8.7 K/UL (4.8-10.8)
[2018-12-30 07:25] LABS: ANION GAP 9 mmol/L (5-15); BLOOD UREA NITROGEN 20 mg/dL (7-18); CALCIUM 9.8 MG/DL (8.5-10.1); CARBON DIOXIDE 28 MMOL/L (21-32); CHLORIDE 105 MMOL/L (98-107); POTASSIUM 4.3 MMOL/L (3.5-5.1); SODIUM 142 MMOL/L (136-145)
--- NOTE | 2018-12-30 07:25 | NUR ---
NURSE NOTES: WALKING ROUNDS DONE WITH OUTGOING RN. PATIENT AWAKE IN BED. QUESTIONS ANSWERED , NEEDS MET. PATIENT AWARE OF NPO STATUS FOR CT ABD/PELVIS THIS A.M. VERBALIZED UNDERSTANDING.REINFORCED TO PATIENT TO PLEASE CALL FOR ASSISTANCE WITH ADLS. RETURN DEMONSTRATION OF USAGE OF CALL LIGHT SUCCESSFUL. BED IN LOW AND LOCKED POSITION. BED ALARM ACTIVATED. CALL LIGHT WITHIN REACH.
--- NOTE | 2018-12-30 07:34 | NUR ---
HAND-OFF: Report given to DONELL John. Pt in stable condition.
[2018-12-30 08:00] VITALS: BP 125/99
[2018-12-30] MEDS: Cefepime HCl 2 GM in D5W 110 ML IV SCH ×2 (08:51→20:59)
--- NOTE | 2018-12-30 09:35 | NUR ---
NURSE NOTES: HEAD TO TOE SKIN ASSESSEMENT COMPLETED. LEFT POSTERIOR BACK SITE, SACRAL AREA AND BILATERAL HEELS W/ OPTIFOAM C/D/I. BILATERAL ELBOWS INTACT. PATIENT UP TO CHAIR. TOLERATING WELL. PLEASE SEE WOUND CARE ASSESSMENT FOR FURTHER INTERVENTIONS.
--- NOTE | 2018-12-30 10:02 | NUR ---
NURSE NOTES: patient off unit to ct scan via bed.
--- NOTE | 2018-12-30 10:35 | Urology Progress Note ---
Assessment/Plan Assessment/Plan: 1. History of left-sided hydronephrosis with dislodged nephrostomy tube. 2. Bladder cancer history. 3. Benign prostatic hypertrophy. 4. Lower urinary tract symptoms. 5. Neurogenic bladder. 6. Hematuria. 7. Pyuria. 8. Proteinuria. monitor clinically may need to replace nephrostomy or repeat trial of cysto/stent consider med onc eval cont flomax and proscar abx as ordered f/u on urine cx consider adding diflucan d/w pt's granddaughter, kimberlyn, who is POA d/w Dr. Peter Subjective Allergies: Coded Allergies: No Known Allergies (Unverified , 04/09/16) Subjective all noted, looks comfortable Objective Last 24 Hour Vital Signs Date Time Temp Pulse Resp B/P (MAP) Pulse Ox O2 Delivery O2 Flow Rate FiO2 12/30/18 09:00 Room Air 12/30/18 08:00 98.0 71 19 125/99 (108) 99 12/30/18 04:00 98.3 67 17 132/61 (84) 100 12/30/18 00:00 98.2 78 18 132/70 (90) 99 12/29/18 21:00 Room Air 12/29/18 20:00 98.3 69 17 136/63 (87) 100 12/29/18 20:00 68 18 99 Room Air 21 12/29/18 16:00 97.7 76 18 133/68 (89) 100 12/29/18 12:00 97.0 70 18 111/56 (74) 97 Intake and Output 12/29/18 12/30/18 19:00 07:00 Intake Total 1515 ml 1220 ml Output Total 300 ml Balance 1515 ml 920 ml Intake Oral 540 ml 360 ml IV Total 975 ml 860 ml Output Urine Total 300 ml # Voids 1 6 Microbiology Date/Time Source Procedure Growth Status 12/27/18 22:00 Nasal Nares MRSA Culture - Final NO METHICILLIN RESISTANT STAPH AUREUS... Complete 12/27/18 22:00 Urine,Clean Catch Urine Culture - Preliminary Yeast Species Resulted 12/27/18 22:00 Rectum VRE Culture - Final NO VANCOMYCIN RESISTANT ENTEROCOCCUS ... Complete 12/27/18 22:00 Rectum - Final NO CARBAPENEM-RESISTANT ENTEROBACTERI... Complete Current Medications Medications (Trade) Dose Ordered Sig/Levi Route PRN Reason Start Time Stop Time Status Last Admin Dose Admin Acetaminophen (Tylenol) 650 mg Q4H PRN ORAL fever 12/27/18 23:45 01/26/19 23:44 Albuterol/ Ipratropium (Albuterol/ Ipratropium) 3 ml Q4H PRN HHN Shortness of Breath 12/27/18 23:45 01/01/19 23:44 Amlodipine Besylate (Norvasc) 2.5 mg DAILY ORAL 12/28/18 09:00 01/27/19 08:59 12/29/18 08:35 Barium Sulfate (Readi-Cat 2) 450 ml NOW PRN ORAL Radiology Procedure 12/29/18 18:00 12/31/18 17:47 Cefepime HCl 2 gm/ Dextrose 110 ml @ 220 mls/hr EVERY 12 HOURS IV 12/28/18 09:00 01/04/19 08:59 12/30/18 08:51 Dextrose (Dextrose 50%) 25 ml STAT PRN IV Hypoglycemia 12/28/18 11:45 01/27/19 11:44 Dextrose (Dextrose 50%) 50 ml STAT PRN IV Hypoglycemia 12/28/18 11:45 01/27/19 11:44 Finasteride (Proscar) 5 mg DAILY ORAL 12/28/18 09:00 01/27/19 08:59 12/29/18 08:35 Heparin Sodium (Porcine) (Heparin 5000 units/ml) 5,000 units EVERY 12 HOURS SUBQ 12/28/18 09:00 01/27/19 08:59 12/29/18 20:38 Insulin Aspart (NovoLOG) BEFORE MEALS AND HS SUBQ 12/28/18 06:30 01/27/19 06:29 12/29/18 20:38 Iopamidol (Isovue-300 100ml) 100 ml NOW PRN INJ Radiology Procedure 12/29/18 18:00 12/31/18 17:59 Morphine Sulfate (Morphine Sulfate) 2 mg Q4H PRN IVP Moderate Pain (Pain Scale 4-6) 12/27/18 23:45 01/03/19 23:44 Nitroglycerin (Ntg) 0.4 mg Q5M PRN SL Prn Chest Pain 12/27/18 23:45 01/26/19 23:44 Ondansetron HCl (Zofran) 4 mg Q6H PRN IVP Nausea & Vomiting 12/27/18 23:45 01/26/19 23:44 Polyethylene Glycol (Miralax) 17 gm DAILYPRN PRN ORAL Constipation 12/27/18 23:45 01/26/19 23:44 Sodium Chloride 1,000 ml @ 75 mls/hr [id number] IV 12/27/18 01:00 01/26/19 00:59 12/30/18 06:52 Tamsulosin HCl (Flomax) 0.4 mg BEDTIME ORAL 12/28/18 21:00 01/27/19 20:59 12/29/18 20:30 Temazepam (Restoril) 15 mg HSPRN PRN ORAL Insomnia 12/27/18 23:45 01/03/19 23:44 Laboratory Tests 12/30/18 06:07: White Blood Count 8.7, Red Blood Count 3.70L, Hemoglobin 10.9L, Hematocrit 31.7L , Mean Corpuscular Volume 86, Mean Corpuscular Hemoglobin 29.4, Mean Corpuscular Hemoglobin Concent 34.4, Red Cell Distribution Width 11.1L, Platelet Count 185, Mean Platelet Volume 5.7L, Neutrophils (%) (Auto) 72.7, Lymphocytes (%) (Auto) 19.9L, Monocytes (%) (Auto) 6.1, Eosinophils (%) (Auto) 0.1, Basophils (%) (Auto) 1.2, Sodium Level 142, Potassium Level 4.3, Chloride Level 105, Carbon Dioxide Level 28, Anion Gap 9, Blood Urea Nitrogen 20H, Creatinine 1.0, Estimat Glomerular Filtration Rate , Glucose Level 115H, Calcium Level 9.8 Height (Feet): 5 Height (Inches): 11.00 Weight (Pounds): 180 Objective exam stable renal u/s and CT done, result pending d/w radiologist Macho Allen MD December 30, 2018 10:35
--- NOTE | 2018-12-30 10:48 | Diagnostic Imaging Report ---
Indication:Elevated Bun and Creatinine. Technique: Grayscale and duplex Doppler imaging of the kidneys performed. Comparison: None Findings: Bilateral hydronephrosis demonstrated mild to moderate degree probably worse on the left. Bladder volume is about 100 cc and there is suggestion of wall thickening. IVC is unremarkable. The right kidney measures 10.6 cm in length. The left kidney measures 11.4 cm in length. The renal cortex may be slightly echogenic. IMPRESSION: Bilateral hydronephrosis.
[2018-12-30] MEDS: Heparin 5000 units/ml inj SUBQ SCH ×2 (11:16→20:59)
--- NOTE | 2018-12-30 11:28 | Diagnostic Imaging Report ---
Indication: Abnormal BUN/creatinine. Abnormal ultrasound showing hydronephrosis. Technique: Continuous helical transaxial imaging of the abdomen and pelvis was obtained from the lung bases to the pubic symphysis during intravenous contrast administration. Coronal 2-D reformats were also obtained. Study obtained in a Siemens sensation [address] Automatic Exposure Control was utilized. Total Dose length Product (DLP): [address] Dose Index Volume (CTDIvol): 0.15, 15.28, 8.11, 48.67, 13.98, 15.28, 15.28 mGy Comparison: 11/22/2018 Findings: There is a moderate left hydronephrosis and hydroureter again demonstrated. There is a 1 mm calcific density probably a tiny stone on the bladder side of the left UVJ which may be associated with the hydroureteronephrosis. However on the last occasion 11/22/2018, CT head shown similar findings with hydroureteronephrosis with part of the ureter invaginating into the bladder wall. There was no stone demonstrated at that time. There was concern for possible bladder mass accounting for the hydronephrosis at that time. The appearance is very similar except for the presence of a tiny stone on the current study. There is severe diffuse circumferential wall thickening of the urinary bladder. Cystoscopy correlation is recommended unless this is early been done. One differential consideration is a ureterocele especially based on the appearance on the last study. There is mild right hydronephrosis present. There is no obstructing stone identified. Extensive prostate calcification noted. Despite the hydronephrosis both kidneys show relatively symmetric enhancement during arterial and venous phases and symmetric bilateral excretion. Multiple gallstones are demonstrated. There is a moderate amount of fecal material within the colon. Bowel gas pattern is nonobstructive. The aorta is moderately calcified. A pacemaker is present. The lung bases are essentially clear. There is narrowing of intervertebral discs and accompanying endplate osteophyte formation. Hypertrophied facet joints also demonstrated.. IMPRESSION: Persistent moderate left hydronephrosis. Currently there is a tiny 1 mm stone on the bladder side of the UVJ. Not certain if this is the reason for the hydronephrosis given similar appearance previously without a stone. Marked thickening of the bladder wall may be related. Underlying mass or ureterocele not excluded. Correlation with cystoscopy recommended. Mild right hydronephrosis. No obstructing stone identified. Cholelithiasis. Moderate stool retention in the colon. Multiple additional incidental findings as described above. The CT scanner at [facility] is accredited by the [employer] and the scans are performed using protocols designed to limit radiation exposure to as low as reasonably achievable to attain images of sufficient resolution adequate for diagnostic evaluation.
[2018-12-30 12:00] VITALS: BP 131/52
--- NOTE | 2018-12-30 13:15 | Pulmonology Progress Note ---
Assessment/Plan Problems: (1) UTI (urinary tract infection) (2) HTN (hypertension) (3) Nephrostomy tube displaced (4) Bladder neoplasm (5) Alzheimer's dementia (6) Diabetes mellitus (7) Chronic cerebrovascular accident (CVA) Assessment/Plan check cultures continue iv abx, on cefepime CT of abdomen and pelvis reviewed sliding scale diabetic diet Monitor BP dvt prophylaxis. Subjective ROS Limited/Unobtainable: No Constitutional: Reports: no symptoms HEENT: Repors: no symptoms Respiratory: Reports: no symptoms Allergies: Coded Allergies: No Known Allergies (Unverified , 04/09/16) Objective Last 24 Hour Vital Signs Date Time Temp Pulse Resp B/P (MAP) Pulse Ox O2 Delivery O2 Flow Rate FiO2 12/30/18 12:00 97.3 60 20 131/52 (78) 98 12/30/18 11:14 71 125/99 12/30/18 09:00 Room Air 12/30/18 08:00 98.0 71 19 125/99 (108) 99 12/30/18 04:00 98.3 67 17 132/61 (84) 100 12/30/18 00:00 98.2 78 18 132/70 (90) 99 12/29/18 21:00 Room Air 12/29/18 20:00 98.3 69 17 136/63 (87) 100 12/29/18 20:00 68 18 99 Room Air 21 12/29/18 16:00 97.7 76 18 133/68 (89) 100 Intake and Output 12/29/18 12/30/18 19:00 07:00 Intake Total 1515 ml 1220 ml Output Total 300 ml Balance 1515 ml 920 ml Intake Oral 540 ml 360 ml IV Total 975 ml 860 ml Output Urine Total 300 ml # Voids 1 6 General Appearance: cachetic HEENT: normocephalic, anicteric Respiratory/Chest: chest wall non-tender, lungs clear Cardiovascular: normal rate Abdomen: normal bowel sounds, soft, non tender, no scars Extremities: no cyanosis Skin: no rash 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: no motor/sensory deficits Microbiology Date/Time Source Procedure Growth Status 12/27/18 22:00 Nasal Nares MRSA Culture - Final NO METHICILLIN RESISTANT STAPH AUREUS... Complete 12/27/18 22:00 Urine,Clean Catch Urine Culture - Preliminary Yeast Species Resulted 12/27/18 22:00 Rectum VRE Culture - Final NO VANCOMYCIN RESISTANT ENTEROCOCCUS ... Complete 12/27/18 22:00 Rectum - Final NO CARBAPENEM-RESISTANT ENTEROBACTERI... Complete Laboratory Tests 12/30/18 06:07: White Blood Count 8.7, Red Blood Count 3.70L, Hemoglobin 10.9L, Hematocrit 31.7L , Mean Corpuscular Volume 86, Mean Corpuscular Hemoglobin 29.4, Mean Corpuscular Hemoglobin Concent 34.4, Red Cell Distribution Width 11.1L, Platelet Count 185, Mean Platelet Volume 5.7L, Neutrophils (%) (Auto) 72.7, Lymphocytes (%) (Auto) 19.9L, Monocytes (%) (Auto) 6.1, Eosinophils (%) (Auto) 0.1, Basophils (%) (Auto) 1.2, Sodium Level 142, Potassium Level 4.3, Chloride Level 105, Carbon Dioxide Level 28, Anion Gap 9, Blood Urea Nitrogen 20H, Creatinine 1.0, Estimat Glomerular Filtration Rate , Glucose Level 115H, Calcium Level 9.8 Current Medications Medications (Trade) Dose Ordered Sig/Levi Route PRN Reason Start Time Stop Time Status Last Admin Dose Admin Acetaminophen (Tylenol) 650 mg Q4H PRN ORAL fever 12/27/18 23:45 01/26/19 23:44 Albuterol/ Ipratropium (Albuterol/ Ipratropium) 3 ml Q4H PRN HHN Shortness of Breath 12/27/18 23:45 01/01/19 23:44 Amlodipine Besylate (Norvasc) 2.5 mg DAILY ORAL 12/28/18 09:00 01/27/19 08:59 12/30/18 11:14 Barium Sulfate (Readi-Cat 2) 450 ml NOW PRN ORAL Radiology Procedure 12/29/18 18:00 12/31/18 17:47 Cefepime HCl 2 gm/ Dextrose 110 ml @ 220 mls/hr EVERY 12 HOURS IV 12/28/18 09:00 01/04/19 08:59 12/30/18 08:51 Dextrose (Dextrose 50%) 25 ml STAT PRN IV Hypoglycemia 12/28/18 11:45 01/27/19 11:44 Dextrose (Dextrose 50%) 50 ml STAT PRN IV Hypoglycemia 12/28/18 11:45 01/27/19 11:44 Finasteride (Proscar) 5 mg DAILY ORAL 12/28/18 09:00 01/27/19 08:59 12/30/18 11:14 Heparin Sodium (Porcine) (Heparin 5000 units/ml) 5,000 units EVERY 12 HOURS SUBQ 12/28/18 09:00 01/27/19 08:59 12/30/18 11:16 Insulin Aspart (NovoLOG) BEFORE MEALS AND HS SUBQ 12/28/18 06:30 01/27/19 06:29 12/30/18 11:52 Iopamidol (Isovue-300 100ml) 100 ml NOW PRN INJ Radiology Procedure 12/29/18 18:00 12/31/18 17:59 Morphine Sulfate (Morphine Sulfate) 2 mg Q4H PRN IVP Moderate Pain (Pain Scale 4-6) 12/27/18 23:45 01/03/19 23:44 Nitroglycerin (Ntg) 0.4 mg Q5M PRN SL Prn Chest Pain 12/27/18 23:45 01/26/19 23:44 Ondansetron HCl (Zofran) 4 mg Q6H PRN IVP Nausea & Vomiting 12/27/18 23:45 01/26/19 23:44 Polyethylene Glycol (Miralax) 17 gm DAILYPRN PRN ORAL Constipation 12/27/18 23:45 01/26/19 23:44 Sodium Chloride 1,000 ml @ 75 mls/hr [id number] IV 12/27/18 01:00 01/26/19 00:59 12/30/18 06:52 Tamsulosin HCl (Flomax) 0.4 mg BEDTIME ORAL 12/28/18 21:00 01/27/19 20:59 12/29/18 20:30 Temazepam (Restoril) 15 mg HSPRN PRN ORAL Insomnia 12/27/18 23:45 01/03/19 23:44 Og Hinkle MD December 30, 2018 13:15
--- NOTE | 2018-12-30 14:43 | Infectious Diseases Prog Note ---
Assessment/Plan Assessment/Plan Abx: IV Vancomycin 12/27- Cefepime 12/27- Assessment: Probable UTI -u/a wbc tnct, nit, leuk +3; ucx 25-50 yeast (prelim) Afebrile Leukocytosis, SP Dislodged L Nephrostomy Tube -CT abd/p: Persistent moderate left hydronephrosis. Currently there is a tiny 1 mm stone on the bladder side of the UVJ. Not certain if this is the reason for the hydronephrosis given similar appearance previously without a stone. Marked thickening of the bladder wall may be related. Underlying mass or ureterocele not excluded. Correlation with cystoscopy recommended. Mild right hydronephrosis. No obstructing stone identified. Cholelithiasis.Moderate stool retention in the colon.Multiple additional incidental findings as described above. -renal US: Bilateral hydronephrosis. hx of UTI bladder CA c/w hydronephrosis s/p nephrostomy - -11/25 SP Cystoscopy, urethral calibration, transurethral resection of extensive bladder tumor with fulguration, and right retrograde pyelogram. -Findings: The patient had what appeared to be a large bladder tumor that involved most of the left side of the bladder extending posteriorly and completely obliterating the left ureteral orifice. I was unable to place a stent on the left side. Recente hematochezia 2ry to hemorroids Dm2 Dementia HTN BPH urinary incontinence AV dissociation w/ conduction s/p PPM metabolic encephalopathy UTI seizure disorders CVA [facility] resident Plan: -Continue empiric Cefepime #4/5 for presumed UTI -Start PO fluconazole #1/3- will treat funguria as plan for urologic procedure -12/28 SP IV Vancomycin #2 -f/u cx -Monitor CBC/CMP, temperatures -uro f/u -aspiration precautions Thank you for this consultation. Will continue to follow along with you. Discussed with RN. Subjective Allergies: Coded Allergies: No Known Allergies (Unverified , 04/09/16) Subjective afebrile no leukocytosis Objective Vital Signs Last 24 Hour Vital Signs Date Time Temp Pulse Resp B/P (MAP) Pulse Ox O2 Delivery O2 Flow Rate FiO2 12/30/18 13:10 66 18 98 Room Air 21 12/30/18 12:00 97.3 60 20 131/52 (78) 98 12/30/18 11:14 71 125/99 12/30/18 09:00 Room Air 12/30/18 08:00 98.0 71 19 125/99 (108) 99 12/30/18 04:00 98.3 67 17 132/61 (84) 100 12/30/18 00:00 98.2 78 18 132/70 (90) 99 12/29/18 21:00 Room Air 12/29/18 20:00 98.3 69 17 136/63 (87) 100 12/29/18 20:00 68 18 99 Room Air 21 12/29/18 16:00 97.7 76 18 133/68 (89) 100 Height (Feet): 5 Height (Inches): 11.00 Weight (Pounds): 180 Objective General Appearance: well appearing, no apparent distress, alert Head: normocephalic, atraumatic Eyes: bilateral eye PERRL, bilateral eye EOMI ENT: hearing grossly normal, normal pharynx Neck: full range of motion, supple, no meningismus Respiratory: chest non-tender, lungs clear, normal breath sounds Cardiovascular #1: regular rate, rhythm, no murmur Gastrointestinal: normal bowel sounds, non tender, no mass, no organomegaly, no bruit, non-distended Musculoskeletal: back normal, gait/station normal, normal range of motion, other - No active drainage from left flank Psychiatric: mood/affect normal Skin: warm/dry Microbiology Date/Time Source Procedure Growth Status 12/27/18 22:00 Nasal Nares MRSA Culture - Final NO METHICILLIN RESISTANT STAPH AUREUS... Complete 12/27/18 22:00 Urine,Clean Catch Urine Culture - Preliminary Yeast Species Resulted 12/27/18 22:00 Rectum VRE Culture - Final NO VANCOMYCIN RESISTANT ENTEROCOCCUS ... Complete 12/27/18 22:00 Rectum - Final NO CARBAPENEM-RESISTANT ENTEROBACTERI... Complete Laboratory Tests Test 12/30/18 06:07 White Blood Count 8.7 K/UL (4.8-10.8) Red Blood Count 3.70 M/UL (4.70-6.10) L Hemoglobin 10.9 G/DL (14.2-18.0) L Hematocrit 31.7 % (42.0-52.0) L Mean Corpuscular Volume 86 FL (80-99) Mean Corpuscular Hemoglobin 29.4 PG (27.0-31.0) Mean Corpuscular Hemoglobin Concent 34.4 G/DL (32.0-36.0) Red Cell Distribution Width 11.1 % (11.6-14.8) L Platelet Count 185 K/UL (150-450) Mean Platelet Volume 5.7 FL (6.5-10.1) L Neutrophils (%) (Auto) 72.7 % (45.0-75.0) Lymphocytes (%) (Auto) 19.9 % (20.0-45.0) L Monocytes (%) (Auto) 6.1 % (1.0-10.0) Eosinophils (%) (Auto) 0.1 % (0.0-3.0) Basophils (%) (Auto) 1.2 % (0.0-2.0) Sodium Level 142 MMOL/L (136-145) Potassium Level 4.3 MMOL/L (3.5-5.1) Chloride Level 105 MMOL/L (98-107) Carbon Dioxide Level 28 MMOL/L (21-32) Anion Gap 9 mmol/L (5-15) Blood Urea Nitrogen 20 mg/dL (7-18) H Creatinine 1.0 MG/DL (0.55-1.30) Estimat Glomerular Filtration Rate mL/min (>60) Glucose Level 115 MG/DL (74-106) H Calcium Level 9.8 MG/DL (8.5-10.1) Current Medications Medications (Trade) Dose Ordered Sig/Levi Route PRN Reason Start Time Stop Time Status Last Admin Dose Admin Acetaminophen (Tylenol) 650 mg Q4H PRN ORAL fever 12/27/18 23:45 01/26/19 23:44 Albuterol/ Ipratropium (Albuterol/ Ipratropium) 3 ml Q4H PRN HHN Shortness of Breath 12/27/18 23:45 01/01/19 23:44 Amlodipine Besylate (Norvasc) 2.5 mg DAILY ORAL 12/28/18 09:00 01/27/19 08:59 12/30/18 11:14 Barium Sulfate (Readi-Cat 2) 450 ml NOW PRN ORAL Radiology Procedure 12/29/18 18:00 12/31/18 17:47 Cefepime HCl 2 gm/ Dextrose 110 ml @ 220 mls/hr EVERY 12 HOURS IV 12/28/18 09:00 01/04/19 08:59 12/30/18 08:51 Dextrose (Dextrose 50%) 25 ml STAT PRN IV Hypoglycemia 12/28/18 11:45 01/27/19 11:44 Dextrose (Dextrose 50%) 50 ml STAT PRN IV Hypoglycemia 12/28/18 11:45 01/27/19 11:44 Finasteride (Proscar) 5 mg DAILY ORAL 12/28/18 09:00 01/27/19 08:59 12/30/18 11:14 Heparin Sodium (Porcine) (Heparin 5000 units/ml) 5,000 units EVERY 12 HOURS SUBQ 12/28/18 09:00 01/27/19 08:59 12/30/18 11:16 Insulin Aspart (NovoLOG) BEFORE MEALS AND HS SUBQ 12/28/18 06:30 01/27/19 06:29 12/30/18 11:52 Iopamidol (Isovue-300 100ml) 100 ml NOW PRN INJ Radiology Procedure 12/29/18 18:00 12/31/18 17:59 Morphine Sulfate (Morphine Sulfate) 2 mg Q4H PRN IVP Moderate Pain (Pain Scale 4-6) 12/27/18 23:45 01/03/19 23:44 Nitroglycerin (Ntg) 0.4 mg Q5M PRN SL Prn Chest Pain 12/27/18 23:45 01/26/19 23:44 Ondansetron HCl (Zofran) 4 mg Q6H PRN IVP Nausea & Vomiting 12/27/18 23:45 01/26/19 23:44 Polyethylene Glycol (Miralax) 17 gm DAILYPRN PRN ORAL Constipation 12/27/18 23:45 01/26/19 23:44 Sodium Chloride 1,000 ml @ 75 mls/hr [id number] IV 12/27/18 01:00 01/26/19 00:59 12/30/18 06:52 Tamsulosin HCl (Flomax) 0.4 mg BEDTIME ORAL 12/28/18 21:00 01/27/19 20:59 12/29/18 20:30 Temazepam (Restoril) 15 mg HSPRN PRN ORAL Insomnia 12/27/18 23:45 01/03/19 23:44 Tawny Darby M.D. December 30, 2018 14:43
[2018-12-30 16:00] VITALS: BP 130/53
[2018-12-30] MEDS ORDERED: Fluconazole 100mg tab ORAL SCH (16:00)
--- NOTE | 2018-12-30 16:50 | NUR ---
NURSE NOTES: CALL RECEIVED FROM DR. IVEY. RENAL US AND CT ABD/PELVIS RESULTS REVIEWED WITH MD. PER MD REQUEST, REPORTS FAXED TO OFFICE AND RECEIVED.
--- NOTE | 2018-12-30 17:19 | Internal Med Progress Note ---
Subjective Date of Service: December 30, 2018 Physician Name Jean-Claude Peter Attending Physician Jaziel Lowe MD Current Medications Medications (Trade) Dose Ordered Sig/Levi Route PRN Reason Start Time Stop Time Status Last Admin Dose Admin Acetaminophen (Tylenol) 650 mg Q4H PRN ORAL fever 12/27/18 23:45 01/26/19 23:44 Albuterol/ Ipratropium (Albuterol/ Ipratropium) 3 ml Q4H PRN HHN Shortness of Breath 12/27/18 23:45 01/01/19 23:44 Amlodipine Besylate (Norvasc) 2.5 mg DAILY ORAL 12/28/18 09:00 01/27/19 08:59 12/30/18 11:14 Barium Sulfate (Readi-Cat 2) 450 ml NOW PRN ORAL Radiology Procedure 12/29/18 18:00 12/31/18 17:47 Cefepime HCl 2 gm/ Dextrose 110 ml @ 220 mls/hr EVERY 12 HOURS IV 12/28/18 09:00 01/04/19 08:59 12/30/18 08:51 Dextrose (Dextrose 50%) 25 ml STAT PRN IV Hypoglycemia 12/28/18 11:45 01/27/19 11:44 Dextrose (Dextrose 50%) 50 ml STAT PRN IV Hypoglycemia 12/28/18 11:45 01/27/19 11:44 Finasteride (Proscar) 5 mg DAILY ORAL 12/28/18 09:00 01/27/19 08:59 12/30/18 11:14 Fluconazole (Diflucan) 200 mg DAILY ORAL 12/31/18 09:00 01/07/19 08:59 Heparin Sodium (Porcine) (Heparin 5000 units/ml) 5,000 units EVERY 12 HOURS SUBQ 12/28/18 09:00 01/27/19 08:59 12/30/18 11:16 Insulin Aspart (NovoLOG) BEFORE MEALS AND HS SUBQ 12/28/18 06:30 01/27/19 06:29 12/30/18 16:43 Iopamidol (Isovue-300 100ml) 100 ml NOW PRN INJ Radiology Procedure 12/29/18 18:00 12/31/18 17:59 Morphine Sulfate (Morphine Sulfate) 2 mg Q4H PRN IVP Moderate Pain (Pain Scale 4-6) 12/27/18 23:45 01/03/19 23:44 Nitroglycerin (Ntg) 0.4 mg Q5M PRN SL Prn Chest Pain 12/27/18 23:45 01/26/19 23:44 Ondansetron HCl (Zofran) 4 mg Q6H PRN IVP Nausea & Vomiting 12/27/18 23:45 01/26/19 23:44 Polyethylene Glycol (Miralax) 17 gm DAILYPRN PRN ORAL Constipation 12/27/18 23:45 01/26/19 23:44 Sodium Chloride 1,000 ml @ 75 mls/hr [id number] IV 12/27/18 01:00 01/26/19 00:59 12/30/18 06:52 Tamsulosin HCl (Flomax) 0.4 mg BEDTIME ORAL 12/28/18 21:00 01/27/19 20:59 12/29/18 20:30 Temazepam (Restoril) 15 mg HSPRN PRN ORAL Insomnia 12/27/18 23:45 01/03/19 23:44 Allergies: Coded Allergies: No Known Allergies (Unverified , 04/09/16) ROS Limited/Unobtainable: No Constitutional: Reports: no symptoms HEENT: Reports: no symptoms Cardiovascular: Reports: no symptoms Respiratory: Reports: no symptoms Gastrointestinal/Abdominal: Reports: no symptoms Genitourinary: Reports: no symptoms 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: Reports: no symptoms Subjective 83 YO M admitted with dislodged left nephrostomy tube. Now pyelonephritis. Cover for Int Uriel-Dr Lowe. Objective Last Vital Signs Date Time Temp Pulse Resp B/P (MAP) Pulse Ox O2 Delivery O2 Flow Rate FiO2 12/30/18 13:10 66 18 98 Room Air 21 12/30/18 12:00 97.3 131/52 (78) Laboratory Tests Test 12/30/18 06:07 White Blood Count 8.7 K/UL (4.8-10.8) Red Blood Count 3.70 M/UL (4.70-6.10) L Hemoglobin 10.9 G/DL (14.2-18.0) L Hematocrit 31.7 % (42.0-52.0) L Mean Corpuscular Volume 86 FL (80-99) Mean Corpuscular Hemoglobin 29.4 PG (27.0-31.0) Mean Corpuscular Hemoglobin Concent 34.4 G/DL (32.0-36.0) Red Cell Distribution Width 11.1 % (11.6-14.8) L Platelet Count 185 K/UL (150-450) Mean Platelet Volume 5.7 FL (6.5-10.1) L Neutrophils (%) (Auto) 72.7 % (45.0-75.0) Lymphocytes (%) (Auto) 19.9 % (20.0-45.0) L Monocytes (%) (Auto) 6.1 % (1.0-10.0) Eosinophils (%) (Auto) 0.1 % (0.0-3.0) Basophils (%) (Auto) 1.2 % (0.0-2.0) Sodium Level 142 MMOL/L (136-145) Potassium Level 4.3 MMOL/L (3.5-5.1) Chloride Level 105 MMOL/L (98-107) Carbon Dioxide Level 28 MMOL/L (21-32) Anion Gap 9 mmol/L (5-15) Blood Urea Nitrogen 20 mg/dL (7-18) H Creatinine 1.0 MG/DL (0.55-1.30) Estimat Glomerular Filtration Rate mL/min (>60) Glucose Level 115 MG/DL (74-106) H Calcium Level 9.8 MG/DL (8.5-10.1) Microbiology Date/Time Source Procedure Growth Status 12/27/18 22:00 Nasal Nares MRSA Culture - Final NO METHICILLIN RESISTANT STAPH AUREUS... Complete 12/27/18 22:00 Urine,Clean Catch Urine Culture - Preliminary Yeast Species Resulted 12/27/18 22:00 Rectum VRE Culture - Final NO VANCOMYCIN RESISTANT ENTEROCOCCUS ... Complete 12/27/18 22:00 Rectum - Final NO CARBAPENEM-RESISTANT ENTEROBACTERI... Complete Intake and Output 12/29/18 12/30/18 19:00 07:00 Intake Total 1515 ml 1220 ml Output Total 300 ml Balance 1515 ml 920 ml Intake Oral 540 ml 360 ml IV Total 975 ml 860 ml Output Urine Total 300 ml # Voids 1 6 Objective PHYSICAL EXAMINATION: GENERAL: The patient is a well-developed and well-nourished male, in no apparent distress. HEENT: Eyes, pupils are equal and responsive to light and accommodation. Extraocular movements are intact. NECK: Supple without lymphadenopathy. CHEST: Lungs are clear to auscultation bilaterally without wheezes or rales. CARDIOVASCULAR: Regular rhythm and rate. S1 and S2 are normal without murmurs, rubs, or gallops. ABDOMEN: Soft, nontender, and nondistended. Positive bowel sounds. No evidence of hepatosplenomegaly. Currently, no rebound or guarding noted. EXTREMITIES: Negative for clubbing, cyanosis, edema. RECTAL/GENITAL: Not performed. NEUROLOGIC: Cranial nerves II through XII are grossly intact without focal deficits. Assessment/Plan Assessment/Plan ASSESSMENT: This is an 83-year-old male. 1. Urinary tract infection. 2. Pyelonephritis. 3. Dislodged left nephrostomy tube. 4. Left hydronephrosis. 5. Bladder cancer. 6. Hypertension. 7. Diabetes type 2. 8. AV conduction defect. 9. Alzheimer's dementia. TREATMENT: 1. Dislodged left nephrostomy tube. CT abd/pelvis=left hydronephrosis. A Urology consultation has been obtained with Dr. Macho Allen. We will follow recommendations of Urology. The patient may require replacement of left nephrostomy tube. 2. Urinary tract infection/pyelonephritis. A urine culture is pending. The patient has been started empirically on vancomycin intravenously. The patient has also been started on cefepime. An Infectious Disease consultation has been obtained with Dr. Darby. 3. Hypertension. Continue Norvasc as above. 4. Diabetes type 2. NovoLog sliding scale has been instituted. 5. AV conduction defect. The patient is status post pacemaker. 6. Alzheimer's dementia. 7. Await Onc Consult Jean-Claude Peter MD December 30, 2018 17:19
--- NOTE | 2018-12-30 18:44 | NUR ---
NURSE NOTES: RECEIVED CALL FROM DR. BAMSHAD. GIL WHOM SPOKE TO GRAND DAUGHTER VIA PHONE OF PATIENT IN NEED OF SURGERY TOMORROW 12/31/18. PLACED CALL TO LETY COOK (GRAND DAUGHTER) TO GET PHONE CONSENT FOR SURGERY; AGREED. WITNESSED BY GENNY MCCORMICK RN.
--- NOTE | 2018-12-30 19:28 | NUR ---
HAND-OFF: Report given to KATHYA MARLEY.
--- NOTE | 2018-12-30 19:29 | NUR ---
HAND-OFF: Report given to KATHY PAYAN RN.
--- NOTE | 2018-12-30 19:30 | NUR ---
NURSE NOTES: Received report & pt from DONELL John. Pt lying in bed, a&ox3, in room air. No s/s of acute distress & no c/o pain at this time. Optifoam intact to B/L heels, sacral, and left posterior back. IV site intact with IVF running as ordered. Pt aware of NPO status by midnight. Consent already signed. Bed in lowest position, call light within reach. Will continue to monitor.
[2018-12-30 20:00] VITALS: BP 134/56
[2018-12-30] MEDS: Tamsulosin 0.4mg cap ORAL SCH (20:58)
[2018-12-31] VITALS (12 sets, daily range): BP systolic 122–154; BP diastolic 58–96
[2018-12-31] MEDS: NovoLOG Insulin Flexpen SUBQ SCH ×4 (05:46→20:57)
[2018-12-31 07:23] LABS: HEMATOCRIT 30.6 % (42.0-52.0); HEMOGLOBIN 10.6 G/DL (14.2-18.0); LYMPHOCYTES % (AUTO) 21.2 % (20.0-45.0); MEAN CORPUSCULAR VOLUME 86 FL (80-99); MONOCYTES % (AUTO) 6.5 % (1.0-10.0); NEUTROPHILS % (AUTO) 71.3 % (45.0-75.0); PLATELET COUNT 166 K/UL (150-450); RED BLOOD COUNT 3.56 M/UL (4.70-6.10); RED CELL DISTRIBUTION WIDTH 11.4 % (11.6-14.8); WHITE BLOOD COUNT 7.5 K/UL (4.8-10.8)
--- NOTE | 2018-12-31 07:30 | NUR ---
HAND-OFF: Report given to Merlyn Aden RN. Pt in stable condition. Rounds done. AM RM to do pre-op checklist.
--- NOTE | 2018-12-31 07:31 | NUR ---
NURSE NOTES: Received report from DONELL Hinson. The patient is resting on the bed without acute distress or shortness of breath. The patient's bed in the lowest position, call light in reach, and fall and seizure precaution reinforced. Dressings are intact and patent. Informed patient for the surgery around 1500. NPO education reinforced. Will continue plan of care.
[2018-12-31 07:45] LABS: ANION GAP 6 mmol/L (5-15); BLOOD UREA NITROGEN 15 mg/dL (7-18); CALCIUM 9.8 MG/DL (8.5-10.1); CARBON DIOXIDE 27 MMOL/L (21-32); CHLORIDE 107 MMOL/L (98-107); CREATININE 0.9 MG/DL (0.55-1.30); POTASSIUM 3.8 MMOL/L (3.5-5.1); SODIUM 140 MMOL/L (136-145)
[2018-12-31] MEDS: Heparin 5000 units/ml inj SUBQ SCH ×2 (09:00→20:58)
[2018-12-31] MEDS: Fluconazole 100mg tab ORAL SCH (09:17)
[2018-12-31] MEDS: Cefepime HCl 2 GM in D5W 110 ML IV SCH (09:18)
--- NOTE | 2018-12-31 11:31 | Pulmonology Progress Note ---
Assessment/Plan Problems: (1) UTI (urinary tract infection) (2) HTN (hypertension) (3) Nephrostomy tube displaced (4) Bladder neoplasm (5) Alzheimer's dementia (6) Diabetes mellitus (7) Chronic cerebrovascular accident (CVA) Assessment/Plan continue iv abx, on cefepime CT of abdomen and pelvis reviewed sliding scale diabetic diet Monitor BP dvt prophylaxis. symptomatic treatment Subjective ROS Limited/Unobtainable: No Constitutional: Reports: no symptoms HEENT: Repors: no symptoms Respiratory: Reports: no symptoms Allergies: Coded Allergies: No Known Allergies (Unverified , 04/09/16) Objective Last 24 Hour Vital Signs Date Time Temp Pulse Resp B/P (MAP) Pulse Ox O2 Delivery O2 Flow Rate FiO2 12/31/18 09:17 61 148/66 12/31/18 09:00 Room Air 12/31/18 08:00 97.6 61 18 148/66 (93) 97 12/31/18 07:42 60 16 96 Room Air 21 12/31/18 04:00 98.1 62 16 143/67 (92) 98 12/31/18 00:00 99.2 63 18 127/58 (81) 100 12/30/18 22:55 60 20 99 Room Air 21 12/30/18 21:00 Room Air 12/30/18 20:00 97.8 62 16 134/56 (82) 98 12/30/18 16:00 98.0 61 18 130/53 (78) 100 12/30/18 13:10 66 18 98 Room Air 21 12/30/18 12:00 97.3 60 20 131/52 (78) 98 Intake and Output 12/30/18 12/31/18 19:00 07:00 Intake Total 1235 ml 850 ml Output Total 825 ml Balance 410 ml 850 ml Intake Oral 300 ml 100 ml IV Total 935 ml 750 ml Output Urine Total 825 ml # Voids 2 General Appearance: WD/WN HEENT: normocephalic, atraumatic Respiratory/Chest: chest wall non-tender, lungs clear Cardiovascular: normal peripheral pulses, normal rate Abdomen: normal bowel sounds, soft, non tender Genitourinary: normal external genitalia Extremities: no clubbing 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 Laboratory Tests 12/31/18 05:30: White Blood Count 7.5, Red Blood Count 3.56L, Hemoglobin 10.6L, Hematocrit 30.6L , Mean Corpuscular Volume 86, Mean Corpuscular Hemoglobin 29.8, Mean Corpuscular Hemoglobin Concent 34.6, Red Cell Distribution Width 11.4L, Platelet Count 166, Mean Platelet Volume 5.7L, Neutrophils (%) (Auto) 71.3, Lymphocytes (%) (Auto) 21.2, Monocytes (%) (Auto) 6.5, Eosinophils (%) (Auto) 0.0, Basophils (%) (Auto) 1.0, Sodium Level 140, Potassium Level 3.8, Chloride Level 107, Carbon Dioxide Level 27, Anion Gap 6, Blood Urea Nitrogen 15, Creatinine 0.9, Estimat Glomerular Filtration Rate , Glucose Level 93, Calcium Level 9.8 Current Medications Medications (Trade) Dose Ordered Sig/Levi Route PRN Reason Start Time Stop Time Status Last Admin Dose Admin Acetaminophen (Tylenol) 650 mg Q4H PRN ORAL fever 12/27/18 23:45 01/26/19 23:44 Albuterol/ Ipratropium (Albuterol/ Ipratropium) 3 ml Q4H PRN HHN Shortness of Breath 12/27/18 23:45 01/01/19 23:44 Amlodipine Besylate (Norvasc) 2.5 mg DAILY ORAL 12/28/18 09:00 01/27/19 08:59 12/31/18 09:17 Barium Sulfate (Readi-Cat 2) 450 ml NOW PRN ORAL Radiology Procedure 12/29/18 18:00 12/31/18 17:47 Cefepime HCl 2 gm/ Dextrose 110 ml @ 220 mls/hr EVERY 12 HOURS IV 12/28/18 09:00 01/04/19 08:59 12/31/18 09:18 Dextrose (Dextrose 50%) 25 ml STAT PRN IV Hypoglycemia 12/28/18 11:45 01/27/19 11:44 Dextrose (Dextrose 50%) 50 ml STAT PRN IV Hypoglycemia 12/28/18 11:45 01/27/19 11:44 Finasteride (Proscar) 5 mg DAILY ORAL 12/28/18 09:00 01/27/19 08:59 12/31/18 09:18 Fluconazole (Diflucan) 200 mg DAILY ORAL 12/31/18 09:00 01/07/19 08:59 12/31/18 09:17 Heparin Sodium (Porcine) (Heparin 5000 units/ml) 5,000 units EVERY 12 HOURS SUBQ 12/28/18 09:00 01/27/19 08:59 12/30/18 20:59 Insulin Aspart (NovoLOG) BEFORE MEALS AND HS SUBQ 12/28/18 06:30 01/27/19 06:29 12/30/18 21:12 Iopamidol (Isovue-300 100ml) 100 ml NOW PRN INJ Radiology Procedure 12/29/18 18:00 12/31/18 17:59 Morphine Sulfate (Morphine Sulfate) 2 mg Q4H PRN IVP Moderate Pain (Pain Scale 4-6) 12/27/18 23:45 01/03/19 23:44 Nitroglycerin (Ntg) 0.4 mg Q5M PRN SL Prn Chest Pain 12/27/18 23:45 01/26/19 23:44 Ondansetron HCl (Zofran) 4 mg Q6H PRN IVP Nausea & Vomiting 12/27/18 23:45 01/26/19 23:44 Polyethylene Glycol (Miralax) 17 gm DAILYPRN PRN ORAL Constipation 12/27/18 23:45 01/26/19 23:44 Sodium Chloride 1,000 ml @ 75 mls/hr [id number] IV 12/27/18 01:00 01/26/19 00:59 12/30/18 22:14 Tamsulosin HCl (Flomax) 0.4 mg BEDTIME ORAL 12/28/18 21:00 01/27/19 20:59 12/30/18 20:58 Temazepam (Restoril) 15 mg HSPRN PRN ORAL Insomnia 12/27/18 23:45 01/03/19 23:44 Og Hinkle MD December 31, 2018 11:31
--- NOTE | 2018-12-31 11:49 | Infectious Diseases Prog Note ---
Assessment/Plan Assessment/Plan Abx: IV Vancomycin 12/27- Cefepime 12/27- Assessment: Probable UTI -u/a wbc tnct, nit, leuk +3; ucx 25-50 yeast (prelim) Afebrile Leukocytosis, SP Dislodged L Nephrostomy Tube -CT abd/p: Persistent moderate left hydronephrosis. Currently there is a tiny 1 mm stone on the bladder side of the UVJ. Not certain if this is the reason for the hydronephrosis given similar appearance previously without a stone. Marked thickening of the bladder wall may be related. Underlying mass or ureterocele not excluded. Correlation with cystoscopy recommended. Mild right hydronephrosis. No obstructing stone identified. Cholelithiasis.Moderate stool retention in the colon.Multiple additional incidental findings as described above. -renal US: Bilateral hydronephrosis. hx of UTI bladder CA c/w hydronephrosis s/p nephrostomy - -11/25 SP Cystoscopy, urethral calibration, transurethral resection of extensive bladder tumor with fulguration, and right retrograde pyelogram. -Findings: The patient had what appeared to be a large bladder tumor that involved most of the left side of the bladder extending posteriorly and completely obliterating the left ureteral orifice. I was unable to place a stent on the left side. Recente hematochezia 2ry to hemorroids Dm2 Dementia HTN BPH urinary incontinence AV dissociation w/ conduction s/p PPM metabolic encephalopathy UTI seizure disorders CVA NH resident Plan: -Continue empiric Cefepime #5/5 for presumed UTI -Cont PO fluconazole #2/3- will treat funguria as plan for urologic procedure -12/28 SP IV Vancomycin #2 -f/u cx -Monitor CBC/CMP, temperatures -uro f/u -aspiration precautions Thank you for this consultation. Will continue to follow along with you. Discussed with RN. Subjective Allergies: Coded Allergies: No Known Allergies (Unverified , 04/09/16) Subjective afebrile no leukocytosis Objective Vital Signs Last 24 Hour Vital Signs Date Time Temp Pulse Resp B/P (MAP) Pulse Ox O2 Delivery O2 Flow Rate FiO2 12/31/18 09:17 61 148/66 12/31/18 09:00 Room Air 12/31/18 08:00 97.6 61 18 148/66 (93) 97 12/31/18 07:42 60 16 96 Room Air 21 12/31/18 04:00 98.1 62 16 143/67 (92) 98 12/31/18 00:00 99.2 63 18 127/58 (81) 100 12/30/18 22:55 60 20 99 Room Air 21 12/30/18 21:00 Room Air 12/30/18 20:00 97.8 62 16 134/56 (82) 98 12/30/18 16:00 98.0 61 18 130/53 (78) 100 12/30/18 13:10 66 18 98 Room Air 21 12/30/18 12:00 97.3 60 20 131/52 (78) 98 Height (Feet): 5 Height (Inches): 11.00 Weight (Pounds): 180 Objective General Appearance: well appearing, no apparent distress, alert Head: normocephalic, atraumatic Eyes: bilateral eye PERRL, bilateral eye EOMI ENT: hearing grossly normal, normal pharynx Neck: full range of motion, supple, no meningismus Respiratory: chest non-tender, lungs clear, normal breath sounds Cardiovascular #1: regular rate, rhythm, no murmur Gastrointestinal: normal bowel sounds, non tender, no mass, no organomegaly, no bruit, non-distended Musculoskeletal: back normal, gait/station normal, normal range of motion, other - No active drainage from left flank Psychiatric: mood/affect normal Skin: warm/dry Laboratory Tests Test 12/31/18 05:30 White Blood Count 7.5 K/UL (4.8-10.8) Red Blood Count 3.56 M/UL (4.70-6.10) L Hemoglobin 10.6 G/DL (14.2-18.0) L Hematocrit 30.6 % (42.0-52.0) L Mean Corpuscular Volume 86 FL (80-99) Mean Corpuscular Hemoglobin 29.8 PG (27.0-31.0) Mean Corpuscular Hemoglobin Concent 34.6 G/DL (32.0-36.0) Red Cell Distribution Width 11.4 % (11.6-14.8) L Platelet Count 166 K/UL (150-450) Mean Platelet Volume 5.7 FL (6.5-10.1) L Neutrophils (%) (Auto) 71.3 % (45.0-75.0) Lymphocytes (%) (Auto) 21.2 % (20.0-45.0) Monocytes (%) (Auto) 6.5 % (1.0-10.0) Eosinophils (%) (Auto) 0.0 % (0.0-3.0) Basophils (%) (Auto) 1.0 % (0.0-2.0) Sodium Level 140 MMOL/L (136-145) Potassium Level 3.8 MMOL/L (3.5-5.1) Chloride Level 107 MMOL/L (98-107) Carbon Dioxide Level 27 MMOL/L (21-32) Anion Gap 6 mmol/L (5-15) Blood Urea Nitrogen 15 mg/dL (7-18) Creatinine 0.9 MG/DL (0.55-1.30) Estimat Glomerular Filtration Rate mL/min (>60) Glucose Level 93 MG/DL (74-106) Calcium Level 9.8 MG/DL (8.5-10.1) Current Medications Medications (Trade) Dose Ordered Sig/Levi Route PRN Reason Start Time Stop Time Status Last Admin Dose Admin Acetaminophen (Tylenol) 650 mg Q4H PRN ORAL fever 12/27/18 23:45 01/26/19 23:44 Albuterol/ Ipratropium (Albuterol/ Ipratropium) 3 ml Q4H PRN HHN Shortness of Breath 12/27/18 23:45 01/01/19 23:44 Amlodipine Besylate (Norvasc) 2.5 mg DAILY ORAL 12/28/18 09:00 01/27/19 08:59 12/31/18 09:17 Barium Sulfate (Readi-Cat 2) 450 ml NOW PRN ORAL Radiology Procedure 12/29/18 18:00 12/31/18 17:47 Cefepime HCl 2 gm/ Dextrose 110 ml @ 220 mls/hr EVERY 12 HOURS IV 12/28/18 09:00 01/04/19 08:59 12/31/18 09:18 Dextrose (Dextrose 50%) 25 ml STAT PRN IV Hypoglycemia 12/28/18 11:45 01/27/19 11:44 Dextrose (Dextrose 50%) 50 ml STAT PRN IV Hypoglycemia 12/28/18 11:45 01/27/19 11:44 Finasteride (Proscar) 5 mg DAILY ORAL 12/28/18 09:00 01/27/19 08:59 12/31/18 09:18 Fluconazole (Diflucan) 200 mg DAILY ORAL 12/31/18 09:00 01/07/19 08:59 12/31/18 09:17 Heparin Sodium (Porcine) (Heparin 5000 units/ml) 5,000 units EVERY 12 HOURS SUBQ 12/28/18 09:00 01/27/19 08:59 12/30/18 20:59 Insulin Aspart (NovoLOG) BEFORE MEALS AND HS SUBQ 12/28/18 06:30 01/27/19 06:29 12/30/18 21:12 Iopamidol (Isovue-300 100ml) 100 ml NOW PRN INJ Radiology Procedure 12/29/18 18:00 12/31/18 17:59 Morphine Sulfate (Morphine Sulfate) 2 mg Q4H PRN IVP Moderate Pain (Pain Scale 4-6) 12/27/18 23:45 01/03/19 23:44 Nitroglycerin (Ntg) 0.4 mg Q5M PRN SL Prn Chest Pain 12/27/18 23:45 01/26/19 23:44 Ondansetron HCl (Zofran) 4 mg Q6H PRN IVP Nausea & Vomiting 12/27/18 23:45 01/26/19 23:44 Polyethylene Glycol (Miralax) 17 gm DAILYPRN PRN ORAL Constipation 12/27/18 23:45 01/26/19 23:44 Sodium Chloride 1,000 ml @ 75 mls/hr [id number] IV 12/27/18 01:00 01/26/19 00:59 12/30/18 22:14 Tamsulosin HCl (Flomax) 0.4 mg BEDTIME ORAL 12/28/18 21:00 01/27/19 20:59 12/30/18 20:58 Temazepam (Restoril) 15 mg HSPRN PRN ORAL Insomnia 12/27/18 23:45 01/03/19 23:44 Tawny Darby M.D. December 31, 2018 11:49
--- NOTE | 2018-12-31 12:13 | Anethesia Preoperative Eval ---
Awilda Yarbrough CRNA 12/31/18 1213: Anesthesia Pre-op PMH/ROS General Date of Evaluation: December 31, 2018 Anesthesiologist: Awilda Yarbrough CRNA ASA Score: ASA 3 Mallampati Score Class I : Soft palate, uvula, fauces, pillars visible Class II: Soft palate, uvula, fauces visible Class III: Soft palate, base of uvula visible Class IV: Only hard plate visible Mallampati Classification: Class III Diagnosis: UTI, dislodged nephrostomy tube Surgical Procedure: cystoscopy (B) uteroscopy, nephrostomy tube placement Anesthesia History: none Allergies: Coded Allergies: No Known Allergies (Unverified , 04/09/16) Medications: see eMAR Patient NPO?: Yes NPO Date: December 31, 2018 NPO Time: 1200 Past Medical History Cardiovascular: Reports: HTN, arrhythmia - AV conduction defect (+) pacemaker Gastrointestinal/Genitourinary: Reports: other - Bladder CA, hydronephrosis, lower IG bleed 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: Reports: dementia - Alzheimers, CVA, other - acute encephalopathy Endocrine: Reports: other - hyperthyroidism Hematology/Immune: Reports: anemia PMH Narrative: as noted above PSxH Narrative: TURBT with LEFT nephrostomy placement Anesthesia Pre-op Phys. Exam Physician Exam Last Vital Signs Date Time Temp Pulse Resp B/P (MAP) Pulse Ox O2 Delivery O2 Flow Rate FiO2 12/31/18 09:17 61 148/66 12/31/18 09:00 Room Air 12/31/18 08:00 97.6 18 97 12/31/18 07:42 21 Anesthesia Pre-op A/P Labs Hematology Test 12/31/18 05:30 White Blood Count 7.5 K/UL (4.8-10.8) Red Blood Count 3.56 M/UL (4.70-6.10) L Hemoglobin 10.6 G/DL (14.2-18.0) L Hematocrit 30.6 % (42.0-52.0) L Mean Corpuscular Volume 86 FL (80-99) Mean Corpuscular Hemoglobin 29.8 PG (27.0-31.0) Mean Corpuscular Hemoglobin Concent 34.6 G/DL (32.0-36.0) Red Cell Distribution Width 11.4 % (11.6-14.8) L Platelet Count 166 K/UL (150-450) Mean Platelet Volume 5.7 FL (6.5-10.1) L Neutrophils (%) (Auto) 71.3 % (45.0-75.0) Lymphocytes (%) (Auto) 21.2 % (20.0-45.0) Monocytes (%) (Auto) 6.5 % (1.0-10.0) Eosinophils (%) (Auto) 0.0 % (0.0-3.0) Basophils (%) (Auto) 1.0 % (0.0-2.0) Chemistry Test 12/31/18 05:30 Sodium Level 140 MMOL/L (136-145) Potassium Level 3.8 MMOL/L (3.5-5.1) Chloride Level 107 MMOL/L (98-107) Carbon Dioxide Level 27 MMOL/L (21-32) Anion Gap 6 mmol/L (5-15) Blood Urea Nitrogen 15 mg/dL (7-18) Creatinine 0.9 MG/DL (0.55-1.30) Estimat Glomerular Filtration Rate mL/min (>60) Glucose Level 93 MG/DL (74-106) Calcium Level 9.8 MG/DL (8.5-10.1) Risk Assessment & Plan Status Change Before Surgery: No Pre-Antibiotics Drug: on antibiotics from floor, see Adan Hicks MD 12/31/18 1516: Anesthesia Pre-op PMH/ROS General Allergies: Coded Allergies: No Known Allergies (Unverified , 04/09/16) Anesthesia Pre-op Phys. Exam Physician Exam Vital Signs Date Time Temp Pulse Resp B/P (MAP) Pulse Ox O2 Delivery O2 Flow Rate FiO2 12/27/18 21:51 97.7 72 14 97 Room Air 12/27/18 23:17 122/67 12/28/18 19:52 21 Airway Exam Mallampati Score: Class II Awilda Yarbrough CRNA December 31, 2018 12:13 Adan Fernandez MD December 31, 2018 15:16
--- NOTE | 2018-12-31 12:24 | Consultation ---
History of Present Illness General Chief Complaint: General Complaint Present Illness Allergies: Coded Allergies: No Known Allergies (Unverified , 04/09/16) Medication History Scheduled Amlodipine Besylate (Norvasc), 2.5 MG ORAL DAILY Ascorbic Acid* (Vitamin C*), 500 MG ORAL DAILY, (Reported) Ferrous Sulfate* (Ferrous Sulfate*), 325 MG ORAL DAILY, (Reported) Finasteride (Finasteride), 5 MG ORAL DAILY Lisinopril (Lisinopril*), 20 MG ORAL DAILY Metformin Hcl (Glucophage), 1,000 MG ORAL EVERY 12 HOURS Nateglinide (Starlix), 120 MG ORAL TIAC Tamsulosin HCl (Flomax), 0.4 MG ORAL BEDTIME Miscellaneous Medications Unable to Obtain Medications (Unable To Obtain Meds), (Reported) Patient History Healthcare decision maker Resuscitation status Full Code Advanced Directive on File Physical Exam Last 24 Hour Vital Signs Date Time Temp Pulse Resp B/P (MAP) Pulse Ox O2 Delivery O2 Flow Rate FiO2 12/31/18 09:17 61 148/66 12/31/18 09:00 Room Air 12/31/18 08:00 97.6 61 18 148/66 (93) 97 12/31/18 07:42 60 16 96 Room Air 21 12/31/18 04:00 98.1 62 16 143/67 (92) 98 12/31/18 00:00 99.2 63 18 127/58 (81) 100 12/30/18 22:55 60 20 99 Room Air 21 12/30/18 21:00 Room Air 12/30/18 20:00 97.8 62 16 134/56 (82) 98 12/30/18 16:00 98.0 61 18 130/53 (78) 100 12/30/18 13:10 66 18 98 Room Air 21 Intake and Output 12/30/18 12/31/18 19:00 07:00 Intake Total 1235 ml 850 ml Output Total 825 ml Balance 410 ml 850 ml Intake Oral 300 ml 100 ml IV Total 935 ml 750 ml Output Urine Total 825 ml # Voids 2 Laboratory Tests Test 12/31/18 05:30 White Blood Count 7.5 K/UL (4.8-10.8) Red Blood Count 3.56 M/UL (4.70-6.10) L Hemoglobin 10.6 G/DL (14.2-18.0) L Hematocrit 30.6 % (42.0-52.0) L Mean Corpuscular Volume 86 FL (80-99) Mean Corpuscular Hemoglobin 29.8 PG (27.0-31.0) Mean Corpuscular Hemoglobin Concent 34.6 G/DL (32.0-36.0) Red Cell Distribution Width 11.4 % (11.6-14.8) L Platelet Count 166 K/UL (150-450) Mean Platelet Volume 5.7 FL (6.5-10.1) L Neutrophils (%) (Auto) 71.3 % (45.0-75.0) Lymphocytes (%) (Auto) 21.2 % (20.0-45.0) Monocytes (%) (Auto) 6.5 % (1.0-10.0) Eosinophils (%) (Auto) 0.0 % (0.0-3.0) Basophils (%) (Auto) 1.0 % (0.0-2.0) Sodium Level 140 MMOL/L (136-145) Potassium Level 3.8 MMOL/L (3.5-5.1) Chloride Level 107 MMOL/L (98-107) Carbon Dioxide Level 27 MMOL/L (21-32) Anion Gap 6 mmol/L (5-15) Blood Urea Nitrogen 15 mg/dL (7-18) Creatinine 0.9 MG/DL (0.55-1.30) Estimat Glomerular Filtration Rate mL/min (>60) Glucose Level 93 MG/DL (74-106) Calcium Level 9.8 MG/DL (8.5-10.1) Height (Feet): 5 Height (Inches): 11.00 Weight (Pounds): 180 Medications Current Medications Medications (Trade) Dose Ordered Sig/Levi Route PRN Reason Start Time Stop Time Status Last Admin Dose Admin Acetaminophen (Tylenol) 650 mg Q4H PRN ORAL fever 12/27/18 23:45 01/26/19 23:44 Albuterol/ Ipratropium (Albuterol/ Ipratropium) 3 ml Q4H PRN HHN Shortness of Breath 12/27/18 23:45 01/01/19 23:44 Amlodipine Besylate (Norvasc) 2.5 mg DAILY ORAL 12/28/18 09:00 01/27/19 08:59 12/31/18 09:17 Barium Sulfate (Readi-Cat 2) 450 ml NOW PRN ORAL Radiology Procedure 12/29/18 18:00 12/31/18 17:47 Dextrose (Dextrose 50%) 25 ml STAT PRN IV Hypoglycemia 12/28/18 11:45 01/27/19 11:44 Dextrose (Dextrose 50%) 50 ml STAT PRN IV Hypoglycemia 12/28/18 11:45 01/27/19 11:44 Finasteride (Proscar) 5 mg DAILY ORAL 12/28/18 09:00 01/27/19 08:59 12/31/18 09:18 Fluconazole (Diflucan) 200 mg DAILY ORAL 12/31/18 09:00 01/07/19 08:59 12/31/18 09:17 Heparin Sodium (Porcine) (Heparin 5000 units/ml) 5,000 units EVERY 12 HOURS SUBQ 12/28/18 09:00 01/27/19 08:59 12/30/18 20:59 Insulin Aspart (NovoLOG) BEFORE MEALS AND HS SUBQ 12/28/18 06:30 01/27/19 06:29 12/30/18 21:12 Iopamidol (Isovue-300 100ml) 100 ml NOW PRN INJ Radiology Procedure 12/29/18 18:00 12/31/18 17:59 Morphine Sulfate (Morphine Sulfate) 2 mg Q4H PRN IVP Moderate Pain (Pain Scale 4-6) 12/27/18 23:45 01/03/19 23:44 Nitroglycerin (Ntg) 0.4 mg Q5M PRN SL Prn Chest Pain 12/27/18 23:45 01/26/19 23:44 Ondansetron HCl (Zofran) 4 mg Q6H PRN IVP Nausea & Vomiting 12/27/18 23:45 01/26/19 23:44 Polyethylene Glycol (Miralax) 17 gm DAILYPRN PRN ORAL Constipation 12/27/18 23:45 01/26/19 23:44 Sodium Chloride 1,000 ml @ 75 mls/hr [id number] IV 12/27/18 01:00 01/26/19 00:59 12/31/18 12:03 Tamsulosin HCl (Flomax) 0.4 mg BEDTIME ORAL 12/28/18 21:00 01/27/19 20:59 12/30/18 20:58 Temazepam (Restoril) 15 mg HSPRN PRN ORAL Insomnia 12/27/18 23:45 01/03/19 23:44 Assessment/Plan Assessment/Plan: Hematology Consultaiton Chief Complaint: General Complaint DOS: 12/31/18 REQ MD: Ysabel RFC: Bladder cancer eval, anemia HPI Is an 83-year-old male coming from long-term. He presents with chief complaint of dislodged left nephrostomy tube. He had left hydronephrosis secondary to a bladder tumor. He was admitted here recently and had nephrostomy tube placed. It got dislodged today. Patient denies any symptom. No fever chills but no nausea no vomiting. Denies any other complaint. Coded Allergies: No Known Allergies (Unverified , 04/09/16) Past Medical History: see triage record, old chart reviewed Past Surgical History: other Pertinent Family History: none Social History: Denies: smoking Immunizations: other Reviewed Nursing Documentation: PMH: Agreed; PSxH: Agreed Past Medical History: No Stated History Hx Cardiac Problems: No Hx Pacemaker: Yes Hx Diabetes: Yes Hx Cancer: No Hx Gastrointestinal Problems: No Hx Neurological Problems: Yes - Difficult to arouse 04/07/16 Hx Seizures: Yes ROS Eye: Denies: eye pain, blurred vision ENT: Denies: ear pain, nose congestion, throat swelling Respiratory: Denies: cough, shortness of breath Cardiovascular: Denies: chest pain, palpitations Gastrointestinal: Denies: abdominal pain, diarrhea, nausea, vomiting Musculoskeletal: Denies: back pain, joint pain Skin: Denies: rash Neurological: Denies: headache, numbness Endocrine: Denies: increased thirst, increased urine Hematologic/Lymphatic: Denies: easy bruising All Other Systems: negative except mentioned in HPI PE Vital Signs Last 24 Hour Vital Signs Date Time Temp Pulse Resp B/P (MAP) Pulse Ox O2 Delivery O2 Flow Rate FiO2 12/31/18 09:17 61 148/66 12/31/18 09:00 Room Air 12/31/18 08:00 97.6 61 18 148/66 (93) 97 12/31/18 07:42 60 16 96 Room Air 21 12/31/18 04:00 98.1 62 16 143/67 (92) 98 12/31/18 00:00 99.2 63 18 127/58 (81) 100 12/30/18 22:55 60 20 99 Room Air 21 12/30/18 21:00 Room Air 12/30/18 20:00 97.8 62 16 134/56 (82) 98 12/30/18 16:00 98.0 61 18 130/53 (78) 100 12/30/18 13:10 66 18 98 Room Air 21 vitals unremarkable Sp02 EP Interpretation: reviewed, normal General Appearance: well appearing, no apparent distress, alert Head: normocephalic, atraumatic Eyes: bilateral eye PERRL, bilateral eye EOMI ENT: hearing grossly normal, normal pharynx Neck: full range of motion, supple, no meningismus Respiratory: chest non-tender, lungs clear, normal breath sounds Cardiovascular #1: regular rate, rhythm, no murmur Gastrointestinal: normal bowel sounds, non tender, no mass, no organomegaly, no bruit, non-distended Musculoskeletal: back normal, gait/station normal, normal range of motion, other - No active drainage from left flank Psychiatric: mood/affect normal Skin: warm/dry Laboratory Tests Test 12/31/18 05:30 White Blood Count 7.5 K/UL (4.8-10.8) Red Blood Count 3.56 M/UL (4.70-6.10) L Hemoglobin 10.6 G/DL (14.2-18.0) L Hematocrit 30.6 % (42.0-52.0) L Mean Corpuscular Volume 86 FL (80-99) Mean Corpuscular Hemoglobin 29.8 PG (27.0-31.0) Mean Corpuscular Hemoglobin Concent 34.6 G/DL (32.0-36.0) Red Cell Distribution Width 11.4 % (11.6-14.8) L Platelet Count 166 K/UL (150-450) Mean Platelet Volume 5.7 FL (6.5-10.1) L Neutrophils (%) (Auto) 71.3 % (45.0-75.0) Lymphocytes (%) (Auto) 21.2 % (20.0-45.0) Monocytes (%) (Auto) 6.5 % (1.0-10.0) Eosinophils (%) (Auto) 0.0 % (0.0-3.0) Basophils (%) (Auto) 1.0 % (0.0-2.0) Sodium Level 140 MMOL/L (136-145) Potassium Level 3.8 MMOL/L (3.5-5.1) Chloride Level 107 MMOL/L (98-107) Carbon Dioxide Level 27 MMOL/L (21-32) Anion Gap 6 mmol/L (5-15) Blood Urea Nitrogen 15 mg/dL (7-18) Creatinine 0.9 MG/DL (0.55-1.30) Estimat Glomerular Filtration Rate mL/min (>60) Glucose Level 93 MG/DL (74-106) Calcium Level 9.8 MG/DL (8.5-10.1) Current Medications Medications (Trade) Dose Ordered Sig/Levi Route PRN Reason Start Time Stop Time Status Last Admin Dose Admin Acetaminophen (Tylenol) 650 mg Q4H PRN ORAL fever 12/27/18 23:45 01/26/19 23:44 Albuterol/ Ipratropium (Albuterol/ Ipratropium) 3 ml Q4H PRN HHN Shortness of Breath 12/27/18 23:45 01/01/19 23:44 Amlodipine Besylate (Norvasc) 2.5 mg DAILY ORAL 12/28/18 09:00 01/27/19 08:59 12/31/18 09:17 Barium Sulfate (Readi-Cat 2) 450 ml NOW PRN ORAL Radiology Procedure 12/29/18 18:00 12/31/18 17:47 Dextrose (Dextrose 50%) 25 ml STAT PRN IV Hypoglycemia 12/28/18 11:45 01/27/19 11:44 Dextrose (Dextrose 50%) 50 ml STAT PRN IV Hypoglycemia 12/28/18 11:45 01/27/19 11:44 Finasteride (Proscar) 5 mg DAILY ORAL 12/28/18 09:00 01/27/19 08:59 12/31/18 09:18 Fluconazole (Diflucan) 200 mg DAILY ORAL 12/31/18 09:00 01/07/19 08:59 12/31/18 09:17 Heparin Sodium (Porcine) (Heparin 5000 units/ml) 5,000 units EVERY 12 HOURS SUBQ 12/28/18 09:00 01/27/19 08:59 12/30/18 20:59 Insulin Aspart (NovoLOG) BEFORE MEALS AND HS SUBQ 12/28/18 06:30 01/27/19 06:29 12/30/18 21:12 Iopamidol (Isovue-300 100ml) 100 ml NOW PRN INJ Radiology Procedure 12/29/18 18:00 12/31/18 17:59 Morphine Sulfate (Morphine Sulfate) 2 mg Q4H PRN IVP Moderate Pain (Pain Scale 4-6) 12/27/18 23:45 01/03/19 23:44 Nitroglycerin (Ntg) 0.4 mg Q5M PRN SL Prn Chest Pain 12/27/18 23:45 01/26/19 23:44 Ondansetron HCl (Zofran) 4 mg Q6H PRN IVP Nausea & Vomiting 12/27/18 23:45 01/26/19 23:44 Polyethylene Glycol (Miralax) 17 gm DAILYPRN PRN ORAL Constipation 12/27/18 23:45 01/26/19 23:44 Sodium Chloride 1,000 ml @ 75 mls/hr [id number] IV 12/27/18 01:00 01/26/19 00:59 12/31/18 12:03 Tamsulosin HCl (Flomax) 0.4 mg BEDTIME ORAL 12/28/18 21:00 01/27/19 20:59 12/30/18 20:58 Temazepam (Restoril) 15 mg HSPRN PRN ORAL Insomnia 12/27/18 23:45 01/03/19 23:44 Assessment and Recs: # Bladder cancer extensive stage, PD1+ on biopsy from 12/2018 results, iintially with L hydronephrosis/L Hydroureter 2ry to extensive bladder tumor, that is extensive stage. 11/25 SP Cystoscopy, urethral calibration, transurethral resection of extensive bladder tumor with fulguration, and right retrograde pyelogram. Findings: The patient had what appeared to be a large bladder tumor that involved most of the left side of the bladder extending posteriorly and completely obliterating the left ureteral orifice. Seen by urology --> CT abd/p: Limited assessment of the GI tract, due to lack of enteric contrast administration. Moderate left hydronephrosis and hydroureter. Hydroureter extends to the bladder, where there is asymmetric posterolateral wall thickening raises concern for neoplasm. There is also generalized wall thickening, possibly on the basis of cystitis or chronic bladder outlet obstruction. No definite findings to suggest etiology of stated clinical history of GI bleed. Cholelithiasis. Basilar pulmonary atelectasis and equivocal slight interstitial congestion. L1 vertebral body compression fracture deformity, age indeterminate. --> appreciate urology recs, pulm recs --> per ir may attempt placement of urinary stent --> urology and pcp followup # Anemia due to lower GI bleed --> appreciate gi recs, reviewed endoscopy report --> anemia panel has been reviewed before # Anemia due iron deficiency due to hemorrhoid bleed --> iv iron started, continue x 5 days --> appreciate gi recs # Hydronephrosis # Chronic cerebrovascular accident (CVA) --> per neuro as needed # Diabetes mellitus # Alzheimer's dementia # HTN (hypertension) The timing of this note does not necessarily reflect the time of the patient was seen. Greatly appreciate consultation! Pierce Mcguire MD December 31, 2018 12:24
--- NOTE | 2018-12-31 12:31 | NUR ---
NURSE NOTES: Spoke with Dr. Allen regarding the pre-op procedure today. Per Dr. Allen, he only needs EKG and PT/PTT for preparation. Per Dr. Allen, no cardiac clearance note needed, no chest x-ray needed, and no blood transfusion and ABO/RH cross match needed prior to procedure. Pre-op checklist completed again based on communicated with Dr. Allen. Pre-op checklist and signed consent form confirmed again. Notified to charge nurse for the update in communication.
[2018-12-31 13:20] LABS: INR 1.1 (0.9-1.1)
--- NOTE | 2018-12-31 14:40 | NUR ---
NURSE NOTES: The patient safely transferred to procedure room with consent, chart, and pre-op check list, and completed pre-op orders. The patient denies of acute distress or shortness of breath. The patient's vital signs were stable pre-procedure.
[2018-12-31] MEDS ORDERED: LR 1000ml 1,000 ML IVLG SCH (15:14)
[2018-12-31] MEDS ORDERED: Metoclopramide 10mg/2ml Inj IVP PRN (15:15)
[2018-12-31] MEDS ORDERED: DiphenhydrAMINE 50mg/ml Inj IVP PRN (15:15)
[2018-12-31] MEDS ORDERED: Hydromorphone 0.5mg/0.5ml inj IVP PRN (15:15)
[2018-12-31] MEDS ORDERED: Midazolam 2mg/2ml Inj IVP PRN (15:15)
[2018-12-31] MEDS ORDERED: Atropine Sulfate 0.4mg/ml inj IVP PRN (15:15)
[2018-12-31] MEDS ORDERED: Labetalol 5mg/ml 20ml vial IV PRN (15:15)
[2018-12-31] MEDS ORDERED: LORazepam Inj 2mg/ml 1ml IV PRN (15:15)
[2018-12-31] MEDS ORDERED: Meperidine 50mg/ml Inj(FOR RIGORS ONLY) IVP PRN (15:15)
[2018-12-31] MEDS ORDERED: Iothalamate Meglumine 60% 30ML INJ ONE (15:16)
[2018-12-31] MEDS ORDERED: Propofol 200mg/20ml IV ONE (15:19)
[2018-12-31] MEDS ORDERED: Dexamethasone 4mg/ml vial ONE (15:19)
[2018-12-31] MEDS ORDERED: Midazolam 2mg/2ml Inj ONE (15:19)
[2018-12-31] MEDS ORDERED: Sodium Chloride 10ml vial INJ ONE (15:19)
[2018-12-31] MEDS ORDERED: Lidocaine 1% MPF 10mg/ml 5ml ONE (15:19)
[2018-12-31] MEDS ORDERED: Alfentanil 2ml Inj ONE (15:20)
--- NOTE | 2018-12-31 15:22 | NUR ---
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 DISLODGED NEPHROSTOMY TUBE VS: BP 148/70, P 72, T 97.6, RR 19, SpO2 97 RBC 3.56, H&H 10.6/30.6 CXR: Mild right hydronephrosis. Cholelithiasis. IS:NS x1L IV PROSCAR 5mg CEFEPIME 110ml IV NORVASC 2.5mg DIFLUCAN 200mg 3E MED/SURG STATUS
--- NOTE | 2018-12-31 15:26 | Immediate Post-Op Evaluation ---
Immediate Post-Op Evalulation Immediate Post-Op Evalulation Procedure: Cystoscopy, Ureteral Stent Date of Evaluation: December 31, 2018 Time of Evaluation: 17:55 IV Fluids: 500 LR Blood Products: 0 Estimated Blood Loss: 75 Urinary Output: 100 Blood Pressure Systolic: 154 Blood Pressure Diastolic: 75 Pulse Rate: 60 Respiratory Rate: 16 O2 Sat by Pulse Oximetry: 100 Temperature (Fahrenheit): 97 Pain Score (1-10): 2 Nausea: No Vomiting: No Complications 0 Patient Status: awake, reacts, patent, none Hydration Status: adequate Drug: Floor Adan Fernandez MD December 31, 2018 15:26
--- NOTE | 2018-12-31 15:28 | 48 Hour Post Anesthesia Eval ---
Post Anesthesia Evaluation Procedure: Cystoscopy, Ureteral Stent Date of Evaluation: December 31, 2018 Time of Evaluation: 20:12 Blood Pressure Systolic: 157 0: 78 Pulse Rate: 60 Respiratory Rate: 18 Temperature (Fahrenheit): 97.4 O2 Sat by Pulse Oximetry: 100 Airway: patent Nausea: No Vomiting: No Pain Intensity: 2 Hydration Status: adequate Cardiopulmonary Status: Stable Mental Status/LOC: patient returned to baseline Follow-up Care/Observations: 0 Post-Anesthesia Complications: 0 Follow-up care needed: N/A Adan Fernandez MD December 31, 2018 15:27
[2018-12-31] MEDS ORDERED: LR 1000ml ONE (15:30)
[2018-12-31] MEDS ORDERED: Sterile Water For Irrig 2000ml IRRIG ONE (15:30)
--- NOTE | 2018-12-31 15:35 | Urology Progress Note ---
Assessment/Plan Assessment/Plan: 1. History of left-sided hydronephrosis with dislodged nephrostomy tube. 2. Bladder cancer history. 3. Benign prostatic hypertrophy. 4. Lower urinary tract symptoms. 5. Neurogenic bladder. 6. Hematuria. 7. Pyuria. 8. Proteinuria. monitor clinically may need to replace nephrostomy plan to proceed with cysto and repeat trial of stent placement consider med onc eval cont flomax and proscar abx as ordered diflucan added d/w pt's granddaughter, kimberlyn, who is POA d/w Dr. Peter Subjective Allergies: Coded Allergies: No Known Allergies (Unverified , 04/09/16) Subjective all noted, looks comfortable, for cysto today Objective Last 24 Hour Vital Signs Date Time Temp Pulse Resp B/P (MAP) Pulse Ox O2 Delivery O2 Flow Rate FiO2 12/31/18 12:00 97.6 61 19 148/70 (96) 100 12/31/18 09:17 61 148/66 12/31/18 09:00 Room Air 12/31/18 08:00 97.6 61 18 148/66 (93) 97 12/31/18 07:42 60 16 96 Room Air 21 12/31/18 04:00 98.1 62 16 143/67 (92) 98 12/31/18 00:00 99.2 63 18 127/58 (81) 100 12/30/18 22:55 60 20 99 Room Air 21 12/30/18 21:00 Room Air 12/30/18 20:00 97.8 62 16 134/56 (82) 98 12/30/18 16:00 98.0 61 18 130/53 (78) 100 Intake and Output 12/30/18 12/31/18 19:00 07:00 Intake Total 1235 ml 850 ml Output Total 825 ml Balance 410 ml 850 ml Intake Oral 300 ml 100 ml IV Total 935 ml 750 ml Output Urine Total 825 ml # Voids 2 Microbiology Date/Time Source Procedure Growth Status 12/27/18 22:00 Nasal Nares MRSA Culture - Final NO METHICILLIN RESISTANT STAPH AUREUS... Complete 12/27/18 22:00 Urine,Clean Catch Urine Culture - Final Neha Tropicalis Complete 12/27/18 22:00 Rectum VRE Culture - Final NO VANCOMYCIN RESISTANT ENTEROCOCCUS ... Complete 12/27/18 22:00 Rectum - Final NO CARBAPENEM-RESISTANT ENTEROBACTERI... Complete Current Medications Medications (Trade) Dose Ordered Sig/Levi Route PRN Reason Start Time Stop Time Status Last Admin Dose Admin Acetaminophen (Tylenol) 650 mg Q4H PRN ORAL fever 12/27/18 23:45 01/26/19 23:44 Al Hydroxide/Mg Hydroxide (Mylanta) 15 ml Q1H PRN ORAL gi upset 12/31/18 15:15 12/31/18 20:00 Albuterol/ Ipratropium (Albuterol/ Ipratropium) 3 ml Q4H PRN HHN Shortness of Breath 12/27/18 23:45 01/01/19 23:44 Amlodipine Besylate (Norvasc) 2.5 mg DAILY ORAL 12/28/18 09:00 01/27/19 08:59 12/31/18 09:17 Atropine Sulfate (Atropine 0.4mg/ ml) 0.5 mg Q5M PRN IVP HR<40 12/31/18 15:15 12/31/18 20:00 Barium Sulfate (Readi-Cat 2) 450 ml NOW PRN ORAL Radiology Procedure 12/29/18 18:00 12/31/18 17:47 Dextrose (Dextrose 50%) 25 ml STAT PRN IV Hypoglycemia 12/28/18 11:45 01/27/19 11:44 Dextrose (Dextrose 50%) 50 ml STAT PRN IV Hypoglycemia 12/28/18 11:45 01/27/19 11:44 Diphenhydramine HCl (Benadryl) 25 mg Q15M PRN IVP Itching 12/31/18 15:15 12/31/18 20:00 Finasteride (Proscar) 5 mg DAILY ORAL 12/28/18 09:00 01/27/19 08:59 12/31/18 09:18 Fluconazole (Diflucan) 200 mg DAILY ORAL 12/31/18 09:00 01/07/19 08:59 12/31/18 09:17 Heparin Sodium (Porcine) (Heparin 5000 units/ml) 5,000 units EVERY 12 HOURS SUBQ 12/28/18 09:00 01/27/19 08:59 12/30/18 20:59 Hydralazine HCl (Apresoline) 5 mg Q30M PRN IV SBP>160 / DBP>90 12/31/18 15:15 12/31/18 20:00 Hydromorphone HCl (Dilaudid) 0.5 mg Q15M PRN IVP Severe Pain (Pain Scale 7-10) 12/31/18 15:15 12/31/18 20:00 Insulin Aspart (NovoLOG) BEFORE MEALS AND HS SUBQ 12/28/18 06:30 01/27/19 06:29 12/30/18 21:12 Iopamidol (Isovue-300 100ml) 100 ml NOW PRN INJ Radiology Procedure 12/29/18 18:00 12/31/18 17:59 Labetalol HCl (Normodyne) 5 mg Q10M PRN IV SBP>160 / DBP>90 12/31/18 15:15 12/31/18 20:00 Lactated Ringer's 1,000 ml @ 10 mls/hr Q24H IVLG 12/31/18 15:14 12/31/18 17:13 Lorazepam (Ativan 2mg/ml 1ml) 1 mg Q15M PRN IV For Anxiety 12/31/18 15:15 12/31/18 20:00 Meperidine HCl (Demerol) 25 mg Q5M PRN IVP Shivering.May repeat x 1 12/31/18 15:15 12/31/18 20:00 Metoclopramide HCl (Reglan) 10 mg Q1H PRN IVP Nausea & Vomiting 12/31/18 15:15 12/31/18 20:00 Midazolam HCl (Versed 2mg/2ml vial) 1 mg Q15M PRN IVP For Anxiety 12/31/18 15:15 12/31/18 20:00 Morphine Sulfate (Morphine Sulfate) 2 mg Q4H PRN IVP Moderate Pain (Pain Scale 4-6) 12/27/18 23:45 01/03/19 23:44 Nitroglycerin (Ntg) 0.4 mg Q5M PRN SL Prn Chest Pain 12/27/18 23:45 01/26/19 23:44 Ondansetron HCl (Zofran) 4 mg Q6H PRN IVP Nausea & Vomiting 12/27/18 23:45 01/26/19 23:44 Polyethylene Glycol (Miralax) 17 gm DAILYPRN PRN ORAL Constipation 12/27/18 23:45 01/26/19 23:44 Sodium Chloride 1,000 ml @ 75 mls/hr [id number] IV 12/27/18 01:00 01/26/19 00:59 12/31/18 12:03 Tamsulosin HCl (Flomax) 0.4 mg BEDTIME ORAL 12/28/18 21:00 01/27/19 20:59 12/30/18 20:58 Temazepam (Restoril) 15 mg HSPRN PRN ORAL Insomnia 12/27/18 23:45 01/03/19 23:44 Laboratory Tests 12/31/18 05:30: White Blood Count 7.5, Red Blood Count 3.56L, Hemoglobin 10.6L, Hematocrit 30.6L , Mean Corpuscular Volume 86, Mean Corpuscular Hemoglobin 29.8, Mean Corpuscular Hemoglobin Concent 34.6, Red Cell Distribution Width 11.4L, Platelet Count 166, Mean Platelet Volume 5.7L, Neutrophils (%) (Auto) 71.3, Lymphocytes (%) (Auto) 21.2, Monocytes (%) (Auto) 6.5, Eosinophils (%) (Auto) 0.0, Basophils (%) (Auto) 1.0, Sodium Level 140, Potassium Level 3.8, Chloride Level 107, Carbon Dioxide Level 27, Anion Gap 6, Blood Urea Nitrogen 15, Creatinine 0.9, Estimat Glomerular Filtration Rate , Glucose Level 93, Calcium Level 9.8 12/31/18 12:50: Prothrombin Time 11.1, Prothromb Time International Ratio 1.1, Activated Partial Thromboplast Time 29 Height (Feet): 5 Height (Inches): 11.00 Weight (Pounds): 180 Objective exam stable renal u/s and CT noted Macho Allen MD December 31, 2018 15:35
--- NOTE | 2018-12-31 15:36 | Pre-Procedure Note/Attestation ---
Pre-Procedure Note/Attestation Complete Prior to Procedure Planned Procedure: bilateral Procedure Narrative: cysto, retrograde pyelogram, poss ureteroscopy, ureteral stent, bladder bx, fulguration Indications for Procedure Pre-Operative Diagnosis: bladder ca hx, hydro Attestation I attest that I discussed the nature of the procedure; its benefits; risks and complications; and alternatives (and the risks and benefits of such alternatives ), prior to the procedure, with the patient (or the patient's legal metals sales representative). I attest that, if there was a reasonable possibility of needing a blood transfusion, the patient (or the patient's legal metals sales representative) was given the [place] Department of Health Services standardized written summary, pursuant to the [place] Blood Safety Act ([place] Health and Safety Code # 1645, as amended). I attest that I re-evaluated the patient just prior to the surgery and that there has been no change in the patient's H&P, except as documented below: Macho Allen MD December 31, 2018 15:36
--- NOTE | 2018-12-31 16:21 | Internal Med Progress Note ---
Subjective Date of Service: December 31, 2018 Physician Name Peter,Jean-Claude Attending Physician Jaziel Lowe MD Current Medications Medications (Trade) Dose Ordered Sig/Levi Route PRN Reason Start Time Stop Time Status Last Admin Dose Admin Acetaminophen (Tylenol) 650 mg Q4H PRN ORAL fever 12/27/18 23:45 01/26/19 23:44 Al Hydroxide/Mg Hydroxide (Mylanta) 15 ml Q1H PRN ORAL gi upset 12/31/18 15:15 12/31/18 20:00 Albuterol/ Ipratropium (Albuterol/ Ipratropium) 3 ml Q4H PRN HHN Shortness of Breath 12/27/18 23:45 01/01/19 23:44 Amlodipine Besylate (Norvasc) 2.5 mg DAILY ORAL 12/28/18 09:00 01/27/19 08:59 12/31/18 09:17 Atropine Sulfate (Atropine 0.4mg/ ml) 0.5 mg Q5M PRN IVP HR<40 12/31/18 15:15 12/31/18 20:00 Barium Sulfate (Readi-Cat 2) 450 ml NOW PRN ORAL Radiology Procedure 12/29/18 18:00 12/31/18 17:47 Dextrose (Dextrose 50%) 25 ml STAT PRN IV Hypoglycemia 12/28/18 11:45 01/27/19 11:44 Dextrose (Dextrose 50%) 50 ml STAT PRN IV Hypoglycemia 12/28/18 11:45 01/27/19 11:44 Diphenhydramine HCl (Benadryl) 25 mg Q15M PRN IVP Itching 12/31/18 15:15 12/31/18 20:00 Finasteride (Proscar) 5 mg DAILY ORAL 12/28/18 09:00 01/27/19 08:59 12/31/18 09:18 Fluconazole (Diflucan) 200 mg DAILY ORAL 12/31/18 09:00 01/07/19 08:59 12/31/18 09:17 Heparin Sodium (Porcine) (Heparin 5000 units/ml) 5,000 units EVERY 12 HOURS SUBQ 12/28/18 09:00 01/27/19 08:59 12/30/18 20:59 Hydralazine HCl (Apresoline) 5 mg Q30M PRN IV SBP>160 / DBP>90 12/31/18 15:15 12/31/18 20:00 Hydromorphone HCl (Dilaudid) 0.5 mg Q15M PRN IVP Severe Pain (Pain Scale 7-10) 12/31/18 15:15 12/31/18 20:00 Insulin Aspart (NovoLOG) BEFORE MEALS AND HS SUBQ 12/28/18 06:30 01/27/19 06:29 12/30/18 21:12 Iopamidol (Isovue-300 100ml) 100 ml NOW PRN INJ Radiology Procedure 12/29/18 18:00 12/31/18 17:59 Labetalol HCl (Normodyne) 5 mg Q10M PRN IV SBP>160 / DBP>90 12/31/18 15:15 12/31/18 20:00 Lactated Ringer's 1,000 ml @ 10 mls/hr Q24H IVLG 12/31/18 15:14 12/31/18 17:13 Lorazepam (Ativan 2mg/ml 1ml) 1 mg Q15M PRN IV For Anxiety 12/31/18 15:15 12/31/18 20:00 Meperidine HCl (Demerol) 25 mg Q5M PRN IVP Shivering.May repeat x 1 12/31/18 15:15 12/31/18 20:00 Metoclopramide HCl (Reglan) 10 mg Q1H PRN IVP Nausea & Vomiting 12/31/18 15:15 12/31/18 20:00 Midazolam HCl (Versed 2mg/2ml vial) 1 mg Q15M PRN IVP For Anxiety 12/31/18 15:15 12/31/18 20:00 Morphine Sulfate (Morphine Sulfate) 2 mg Q4H PRN IVP Moderate Pain (Pain Scale 4-6) 12/27/18 23:45 01/03/19 23:44 Nitroglycerin (Ntg) 0.4 mg Q5M PRN SL Prn Chest Pain 12/27/18 23:45 01/26/19 23:44 Ondansetron HCl (Zofran) 4 mg Q6H PRN IVP Nausea & Vomiting 12/27/18 23:45 01/26/19 23:44 Polyethylene Glycol (Miralax) 17 gm DAILYPRN PRN ORAL Constipation 12/27/18 23:45 01/26/19 23:44 Sodium Chloride 1,000 ml @ 75 mls/hr [id number] IV 12/27/18 01:00 01/26/19 00:59 12/31/18 12:03 Tamsulosin HCl (Flomax) 0.4 mg BEDTIME ORAL 12/28/18 21:00 01/27/19 20:59 12/30/18 20:58 Temazepam (Restoril) 15 mg HSPRN PRN ORAL Insomnia 12/27/18 23:45 01/03/19 23:44 Allergies: Coded Allergies: No Known Allergies (Unverified , 04/09/16) ROS Limited/Unobtainable: No Constitutional: Reports: no symptoms HEENT: Reports: no symptoms Cardiovascular: Reports: no symptoms Respiratory: Reports: no symptoms Gastrointestinal/Abdominal: Reports: no symptoms Genitourinary: Reports: no symptoms 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: Reports: no symptoms Subjective 83 YO M admitted with dislodged left nephrostomy tube. Now pyelonephritis. Cover for [facility] Med-Dr Lowe. S/P cystoscopy and left ureteral stent 12/31/18. Objective Last Vital Signs Date Time Temp Pulse Resp B/P (MAP) Pulse Ox O2 Delivery O2 Flow Rate FiO2 12/31/18 12:00 97.6 61 19 148/70 (96) 100 12/31/18 09:00 Room Air 12/31/18 07:42 21 Laboratory Tests Test 12/31/18 05:30 12/31/18 12:50 White Blood Count 7.5 K/UL (4.8-10.8) Red Blood Count 3.56 M/UL (4.70-6.10) L Hemoglobin 10.6 G/DL (14.2-18.0) L Hematocrit 30.6 % (42.0-52.0) L Mean Corpuscular Volume 86 FL (80-99) Mean Corpuscular Hemoglobin 29.8 PG (27.0-31.0) Mean Corpuscular Hemoglobin Concent 34.6 G/DL (32.0-36.0) Red Cell Distribution Width 11.4 % (11.6-14.8) L Platelet Count 166 K/UL (150-450) Mean Platelet Volume 5.7 FL (6.5-10.1) L Neutrophils (%) (Auto) 71.3 % (45.0-75.0) Lymphocytes (%) (Auto) 21.2 % (20.0-45.0) Monocytes (%) (Auto) 6.5 % (1.0-10.0) Eosinophils (%) (Auto) 0.0 % (0.0-3.0) Basophils (%) (Auto) 1.0 % (0.0-2.0) Sodium Level 140 MMOL/L (136-145) Potassium Level 3.8 MMOL/L (3.5-5.1) Chloride Level 107 MMOL/L (98-107) Carbon Dioxide Level 27 MMOL/L (21-32) Anion Gap 6 mmol/L (5-15) Blood Urea Nitrogen 15 mg/dL (7-18) Creatinine 0.9 MG/DL (0.55-1.30) Estimat Glomerular Filtration Rate mL/min (>60) Glucose Level 93 MG/DL (74-106) Calcium Level 9.8 MG/DL (8.5-10.1) Prothrombin Time 11.1 SEC (9.30-11.50) Prothromb Time International Ratio 1.1 (0.9-1.1) Activated Partial Thromboplast Time 29 SEC (23-33) Intake and Output 12/30/18 12/31/18 19:00 07:00 Intake Total 1235 ml 850 ml Output Total 825 ml Balance 410 ml 850 ml Intake Oral 300 ml 100 ml IV Total 935 ml 750 ml Output Urine Total 825 ml # Voids 2 Objective PHYSICAL EXAMINATION: GENERAL: The patient is a well-developed and well-nourished male, in no apparent distress. HEENT: Eyes, pupils are equal and responsive to light and accommodation. Extraocular movements are intact. NECK: Supple without lymphadenopathy. CHEST: Lungs are clear to auscultation bilaterally without wheezes or rales. CARDIOVASCULAR: Regular rhythm and rate. S1 and S2 are normal without murmurs, rubs, or gallops. ABDOMEN: Soft, nontender, and nondistended. Positive bowel sounds. No evidence of hepatosplenomegaly. Currently, no rebound or guarding noted. EXTREMITIES: Negative for clubbing, cyanosis, edema. RECTAL/GENITAL: Not performed. NEUROLOGIC: Cranial nerves II through XII are grossly intact without focal deficits. Assessment/Plan Assessment/Plan ASSESSMENT: This is an 83-year-old male. 1. Urinary tract infection. 2. Pyelonephritis. 3. Dislodged left nephrostomy tube. 4. Left hydronephrosis. 5. Bladder cancer. 6. Hypertension. 7. Diabetes type 2. 8. AV conduction defect. 9. Alzheimer's dementia. TREATMENT: 1. Dislodged left nephrostomy tube. CT abd/pelvis=left hydronephrosis. A Urology consultation has been obtained with Dr. Macho Allen. We will follow recommendations of Urology. S/P cystoscopy and left ureteral stent 12/31/18 2. Urinary tract infection/pyelonephritis. A urine culture is pending. The patient has been started empirically on vancomycin intravenously. The patient has also been started on cefepime. An Infectious Disease consultation has been obtained with Dr. Darby. 3. Hypertension. Continue Norvasc as above. 4. Diabetes type 2. NovoLog sliding scale has been instituted. 5. AV conduction defect. The patient is status post pacemaker. 6. Alzheimer's dementia. 7. Onc Consult=Jean-Claude Griffith MD December 31, 2018 16:21
--- NOTE | 2018-12-31 17:29 | Brief Operative Note ---
Immediate Post Operative Note Operative Note Pre-op Diagnosis: bladder ca hx, hydro Procedure: cysto, bilateral retrograde pyelograms, left ureteral dilation and stent placement, TURBT/bladder biopsies and extensive fulguration Post-op Diagnosis: same as pre-op Findings: consistent w/pre-op dx studies, other - able to place left ureteral stent, extensive multifocal tumors Surgeon: renetta Anesthesiologist: george Anesthesia: general Specimen: yes Complications: none Condition: stable Fluids: NS Estimated Blood Loss: minimal Implant(s) used?: Yes - 7f x 26 cm left ureteral JJ stent Macho Allen MD December 31, 2018 17:29
--- NOTE | 2018-12-31 18:40 | NUR ---
NURSE NOTES: Will follow the other nursing order for post-op care. Resume all post-op med, resume diet, Robertson to gravity but do not remove, hand irrigation with 50-100cc NS PRN.
--- NOTE | 2018-12-31 18:40 | NUR ---
NURSE NOTES: The patient returned to the unit in a safe manner. He is on nasal cannula for supplemental oxygen. Per Yaneth Rosales, procedure room nurse, [address] Robertson inserted with 30cc NS balloon. Per Yaneth Rosales, the patient tolerated the procedure well. The patient's vital signs is as follows: blood pressure of 128/79, pulse of 60, 100% SpO2, temperature of 96.8F. He denies of acute pain. He has bright red urine output of 200cc at this time. No blood clot in the Robertson or bag noted. Will closely monitor the patient.
--- NOTE | 2018-12-31 19:30 | NUR ---
HAND-OFF: Report given to José Miguel Aden RN. The patient is resting on the bed without acute distress or shortness of breath. The patient's bed in the lowest position, call light in reach, and fall and seizure precaution reinforced. Endorsed plan of care.
--- NOTE | 2018-12-31 19:31 | NUR ---
NURSE NOTES: Received patient in no apparent distress noted. A&OX3. IV site patent and intact. Robertson cath noted, reddish urine noted. No c/o pain at this time. Bed in lowest position. Call light within reach. Will continue to monitor.
--- NOTE | 2018-12-31 20:00 | NUR ---
NURSE NOTES: Robertson cath irrigated with 100cc NS. No complication noted.
[2018-12-31] MEDS: Tamsulosin 0.4mg cap ORAL SCH (20:55)
[2019-01-01] VITALS: BP 109/49
--- NOTE | 2019-01-01 | Operative Note - Dictated ---
DATE OF OPERATION: 12/31/2018 SURGEON: Macho Allen M.D. PREOPERATIVE DIAGNOSES: History of bladder cancer, left-sided hydronephrosis, moderate mild right-sided hydronephrosis. POSTOPERATIVE DIAGNOSES: History of bladder cancer, left-sided hydronephrosis, moderate mild right-sided hydronephrosis. PROCEDURE PERFORMED: Cystoscopy, urethral calibration, bilateral retrograde pyelograms, dilation of left ureter and placement of left ureteral stent, transurethral resection and biopsies of extensive bladder tumors, and extensive fulguration of bladder mucosa. OPERATING SURGEON: Macho Allen M.D. ANESTHESIOLOGIST: Dr. Fernandez. ANESTHESIA: General. INDICATIONS FOR PROCEDURE: This is a pleasant 83-year-old male who was recently diagnosed with bladder cancer. He has extensive bladder tumors. He had a tumor that was obstructing the left ureteral orifice. He had a cystoscopic procedure over a month ago at which time, I resected a tumor and I was not able to place a stent in retrograde fashion. He did have a left nephrostomy placed. There was an attempt made at internalizing stent in an antegrade fashion, which was met with resistance. He was subsequently discharged to [facility] with a nephrostomy on the left side. The nephrostomy fell off and was dislodged and he was admitted back to the hospital. Repeat imaging studies showed that he had developed again moderate hydronephrosis on the left side. There was also evidence of mild hydronephrosis on the right side, however, his renal function did remain stable and he did have prompt excretion of contrast on CT. After discussion with the primary team as well as the patient's granddaughter who is the [id number], decision was made to see if we can place a stent on the left side, which has moderate hydro to see if we can preserve renal function. As such, he was scheduled for the above procedure. Possible risks and complications of bleeding, infection, and damage to the bladder or ureters were discussed. No guarantees were implied. FINDINGS: The patient had extensive tumors of his bladder. These were biopsied, excised, and fulgurated. I was able to identify what appeared to be orifice, which was very stenotic and I was able to dilate it and place a stent on the left side. The right side showed some dilatation, but no obvious obstruction and a stent was not placed on the right side. PROCEDURE IN DETAIL: Informed consent was obtained from the patient's [id number]. The patient was brought to the operating room and then placed in supine position. After successful general anesthesia was induced, the patient was placed in modified dorsal lithotomy position. Genitalia was then prepped and draped in usual sterile fashion. Preoperative IV antibiotics have been administered on the floor. Time-out was performed. At this point, the urethra was gently dilated. Cystoscopy was then performed. The urethra was without strictures. Prostate was moderately obstructed. The bladder was inspected. He had extensive tumors involving the left lateral wall area of the left trigone and posterior wall of the bladder close to the dome. The right ureteral orifice was identified. It was visible. There were no tumors in the vicinity, but the left orifice was completely obliterated with what appeared to be the tumor that was involving the trigone. At this point, the right ureteral orifice was cannulated with an open-ended catheter. Retrograde pyelogram was done. There was some J hooking. There was very mild dilatation, but it appeared that the contrast did flow through and I thought that a stent was not necessary on that side. On the left side, I started probing areas which I thought the orifice would be close to. I eventually found an area that appeared that was probably an orifice. Contrast was injected and there was no contrast going up, however, I was able to pass an angled Glidewire through that area up into the kidney. This was left as a safety wire. I did advance the open-ended catheter over the wire. There was significant resistance. I was able to get through and inject contrast. This was in fact the collecting system, which was moderately dilated. At this point, the wire was left as a safety wire. I dilated the distal stricture with a 10-Turkish 2-lumen catheter and after that, I was able to pass a 7-Turkish x 26 cm double-J stent into the left collecting system under fluoroscopic and visual guidance, and appeared to be in good position with a good curl in the kidney as well as in the bladder. A small string was left at the bladder end. At this point, the visible bladder tumors which were mostly sessile were biopsied and resected, and the base of all the tumors which was extensive including the left trigone, left lateral wall, left posterior and right posterior dome, these were all extensively fulgurated with bipolar button. Excellent hemostasis was obtained. A Robertson catheter was placed. The patient was awakened and was taken to recovery room in stable condition. Blood loss was minimal. No complications. Macho Allen M.D. DR: Porfirio JOB#: [id number] CC: Jean-Claude Peter M.D.; Fax#: [phone] LAURA MELCHOR M.D. ; FAX#: [phone]
--- NOTE | 2019-01-01 01:00 | NUR ---
NURSE NOTES: Robertson cath irrigated with 100cc NS. No complication noted.
[2019-01-01] MEDS: Morphine Sulfate 2mg/ml Inj(IV/IM USE ONLY) IVP PRN (03:18)
[2019-01-01 04:00] VITALS: BP 123/58
[2019-01-01 05:36] LABS: HEMATOCRIT 31.8 % (42.0-52.0); MEAN CORPUSCULAR VOLUME 87 FL (80-99); PLATELET COUNT 166 K/UL (150-450); RED BLOOD COUNT 3.67 M/UL (4.70-6.10); RED CELL DISTRIBUTION WIDTH 11.2 % (11.6-14.8); WHITE BLOOD COUNT 6.8 K/UL (4.8-10.8)
[2019-01-01 05:59] LABS: ANION GAP 6 mmol/L (5-15); BLOOD UREA NITROGEN 20 mg/dL (7-18); CALCIUM 9.6 MG/DL (8.5-10.1); CARBON DIOXIDE 29 MMOL/L (21-32); CHLORIDE 106 MMOL/L (98-107); POTASSIUM 4.9 MMOL/L (3.5-5.1); SODIUM 140 MMOL/L (136-145)
[2019-01-01] MEDS: NovoLOG Insulin Flexpen SUBQ SCH ×4 (06:19→20:43)
--- NOTE | 2019-01-01 07:20 | NUR ---
NURSE NOTES: Report received from José Miguel MARLEY, rounds made. Patient sitting in high fowlers position in bed. Alert, oriented x2, calm. Feeding self breakfast, tolerating well. Denies SOB on RA, pain or NV. FC patent, draining A/CL urine to gravity. IVF NS infusing to LFA at 75 ml/hr. Air mattress in place. Bilateral SCDs on. Side rails up x3. Call light in reach, bed in lowest position, will continue to monitor.
--- NOTE | 2019-01-01 07:48 | NUR ---
HAND-OFF: Report given to Dior MARLEY.
[2019-01-01 08:00] VITALS: BP 131/62
--- NOTE | 2019-01-01 09:32 | Urology Progress Note ---
Assessment/Plan Assessment/Plan: 1. History of left-sided hydronephrosis with dislodged nephrostomy tube. 2. Bladder cancer history. 3. Benign prostatic hypertrophy. 4. Lower urinary tract symptoms. 5. Neurogenic bladder. 6. Hematuria. 7. Pyuria. 8. Proteinuria. 9. POD # 1, cysto/fulg/stent monitor clinically keep hernandez indwelling for now hand irrigated, no clots voiding trial later med onc noted cont flomax and proscar abx as ordered diflucan added Subjective Allergies: Coded Allergies: No Known Allergies (Unverified , 04/09/16) Subjective all noted, looks comfortable Objective Last 24 Hour Vital Signs Date Time Temp Pulse Resp B/P (MAP) Pulse Ox O2 Delivery O2 Flow Rate FiO2 01/01/19 09:15 78 18 98 Room Air 21 01/01/19 04:00 97.6 66 18 123/58 (79) 98 01/01/19 00:00 97.8 62 18 109/49 (69) 96 12/31/18 21:00 Room Air 12/31/18 19:40 96.7 69 18 122/62 (82) 98 12/31/18 19:32 63 18 98 Room Air 21 12/31/18 19:10 97.2 74 18 125/66 (85) 100 12/31/18 18:40 96.8 60 20 128/79 (95) 100 12/31/18 18:18 97.0 60 18 144/68 100 Nasal Cannula 3 12/31/18 18:05 60 15 151/69 100 Nasal Cannula 3 12/31/18 17:55 60 14 149/66 100 Nasal Cannula 3 12/31/18 17:50 60 16 154/73 100 Simple Mask 6 12/31/18 17:44 97.0 59 16 154/96 100 Simple Mask 6 12/31/18 17:42 60 18 100 12/31/18 17:41 60 16 100 12/31/18 12:00 97.6 61 19 148/70 (96) 100 Intake and Output 12/31/18 01/01/19 18:59 06:59 Intake Total 1135 ml 900 ml Output Total 1000 ml Balance 1135 ml -100 ml IV Total 1135 ml 900 ml Output Urine Total 1000 ml Microbiology Date/Time Source Procedure Growth Status 12/27/18 22:00 Nasal Nares MRSA Culture - Final NO METHICILLIN RESISTANT STAPH AUREUS... Complete 12/27/18 22:00 Urine,Clean Catch Urine Culture - Final Neha Tropicalis Complete 12/27/18 22:00 Rectum VRE Culture - Final NO VANCOMYCIN RESISTANT ENTEROCOCCUS ... Complete 12/27/18 22:00 Rectum - Final NO CARBAPENEM-RESISTANT ENTEROBACTERI... Complete Current Medications Medications (Trade) Dose Ordered Sig/Levi Route PRN Reason Start Time Stop Time Status Last Admin Dose Admin Acetaminophen (Tylenol) 650 mg Q4H PRN ORAL fever 12/27/18 23:45 01/26/19 23:44 Albuterol/ Ipratropium (Albuterol/ Ipratropium) 3 ml Q4H PRN HHN Shortness of Breath 12/27/18 23:45 01/01/19 23:44 Amlodipine Besylate (Norvasc) 2.5 mg DAILY ORAL 12/28/18 09:00 01/27/19 08:59 12/31/18 09:17 Dextrose (Dextrose 50%) 25 ml STAT PRN IV Hypoglycemia 12/28/18 11:45 01/27/19 11:44 Dextrose (Dextrose 50%) 50 ml STAT PRN IV Hypoglycemia 12/28/18 11:45 01/27/19 11:44 Finasteride (Proscar) 5 mg DAILY ORAL 12/28/18 09:00 01/27/19 08:59 12/31/18 09:18 Fluconazole (Diflucan) 200 mg DAILY ORAL 12/31/18 09:00 01/07/19 08:59 12/31/18 09:17 Heparin Sodium (Porcine) (Heparin 5000 units/ml) 5,000 units EVERY 12 HOURS SUBQ 12/28/18 09:00 01/27/19 08:59 12/31/18 20:58 Insulin Aspart (NovoLOG) BEFORE MEALS AND HS SUBQ 12/28/18 06:30 01/27/19 06:29 01/01/19 06:19 Morphine Sulfate (Morphine Sulfate) 2 mg Q4H PRN IVP Moderate Pain (Pain Scale 4-6) 12/27/18 23:45 01/03/19 23:44 01/01/19 03:18 Nitroglycerin (Ntg) 0.4 mg Q5M PRN SL Prn Chest Pain 12/27/18 23:45 01/26/19 23:44 Ondansetron HCl (Zofran) 4 mg Q6H PRN IVP Nausea & Vomiting 12/27/18 23:45 01/26/19 23:44 Polyethylene Glycol (Miralax) 17 gm DAILYPRN PRN ORAL Constipation 12/27/18 23:45 01/26/19 23:44 Sodium Chloride 1,000 ml @ 75 mls/hr [id number] IV 12/27/18 01:00 01/26/19 00:59 01/01/19 01:42 Tamsulosin HCl (Flomax) 0.4 mg BEDTIME ORAL 12/28/18 21:00 01/27/19 20:59 12/31/18 20:55 Temazepam (Restoril) 15 mg HSPRN PRN ORAL Insomnia 12/27/18 23:45 01/03/19 23:44 Laboratory Tests 12/31/18 12:50: Prothrombin Time 11.1, Prothromb Time International Ratio 1.1, Activated Partial Thromboplast Time 29 01/01/19 05:05: White Blood Count 6.8, Red Blood Count 3.67L, Hemoglobin 11.0L, Hematocrit 31.8L , Mean Corpuscular Volume 87, Mean Corpuscular Hemoglobin 29.9, Mean Corpuscular Hemoglobin Concent 34.5, Red Cell Distribution Width 11.2L, Platelet Count 166, Mean Platelet Volume 5.8L, Neutrophils (%) (Auto) , Lymphocytes (%) (Auto) , Monocytes (%) (Auto) , Eosinophils (%) (Auto) , Basophils (%) (Auto) , Differential Total Cells Counted 100, Neutrophils % ( Manual) 87H, Lymphocytes % (Manual) 12L, Monocytes % (Manual) 1, Eosinophils % ( Manual) 0, Basophils % (Manual) 0, Band Neutrophils 0, Platelet Estimate Adequate, Platelet Morphology Normal, Hypochromasia 1+, Anisocytosis 1+, Sodium Level 140, Potassium Level 4.9, Chloride Level 106, Carbon Dioxide Level 29, Anion Gap 6, Blood Urea Nitrogen 20H, Creatinine 1.0, Estimat Glomerular Filtration Rate , Glucose Level 219#H, Calcium Level 9.6 Height (Feet): 5 Height (Inches): 11.00 Weight (Pounds): 180 Objective exam stable, hernandez indwelling, urine blood-tinged/wes renal u/s and CT noted Macho Allen MD January 01, 2019 09:32
[2019-01-01] MEDS: Fluconazole 100mg tab ORAL SCH (09:50)
[2019-01-01] MEDS: Heparin 5000 units/ml inj SUBQ SCH ×2 (09:52→20:39)
[2019-01-01 12:00] VITALS: BP 131/55
--- NOTE | 2019-01-01 12:45 | NUR ---
NURSE NOTES: Urine dark wes, Dr. Allen irrigated with 0.9 saline solution. Will continue to monitor.
--- NOTE | 2019-01-01 15:14 | Internal Med Progress Note ---
Subjective Date of Service: January 01, 2019 Physician Name Jean-Claude Peter Attending Physician Jaziel Lowe MD Current Medications Medications (Trade) Dose Ordered Sig/Levi Route PRN Reason Start Time Stop Time Status Last Admin Dose Admin Acetaminophen (Tylenol) 650 mg Q4H PRN ORAL fever 12/27/18 23:45 01/26/19 23:44 01/01/19 14:46 Albuterol/ Ipratropium (Albuterol/ Ipratropium) 3 ml Q4H PRN HHN Shortness of Breath 12/27/18 23:45 01/01/19 23:44 Amlodipine Besylate (Norvasc) 2.5 mg DAILY ORAL 12/28/18 09:00 01/27/19 08:59 01/01/19 09:51 Dextrose (Dextrose 50%) 25 ml STAT PRN IV Hypoglycemia 12/28/18 11:45 01/27/19 11:44 Dextrose (Dextrose 50%) 50 ml STAT PRN IV Hypoglycemia 12/28/18 11:45 01/27/19 11:44 Finasteride (Proscar) 5 mg DAILY ORAL 12/28/18 09:00 01/27/19 08:59 01/01/19 09:50 Fluconazole (Diflucan) 200 mg DAILY ORAL 12/31/18 09:00 01/02/19 10:00 01/01/19 09:50 Heparin Sodium (Porcine) (Heparin 5000 units/ml) 5,000 units EVERY 12 HOURS SUBQ 12/28/18 09:00 01/27/19 08:59 01/01/19 09:52 Insulin Aspart (NovoLOG) BEFORE MEALS AND HS SUBQ 12/28/18 06:30 01/27/19 06:29 01/01/19 12:30 Morphine Sulfate (Morphine Sulfate) 2 mg Q4H PRN IVP Moderate Pain (Pain Scale 4-6) 12/27/18 23:45 01/03/19 23:44 01/01/19 03:18 Nitroglycerin (Ntg) 0.4 mg Q5M PRN SL Prn Chest Pain 12/27/18 23:45 01/26/19 23:44 Ondansetron HCl (Zofran) 4 mg Q6H PRN IVP Nausea & Vomiting 12/27/18 23:45 01/26/19 23:44 Polyethylene Glycol (Miralax) 17 gm DAILYPRN PRN ORAL Constipation 12/27/18 23:45 01/26/19 23:44 Sodium Chloride 1,000 ml @ 75 mls/hr [id number] IV 12/27/18 01:00 01/26/19 00:59 01/01/19 14:32 Tamsulosin HCl (Flomax) 0.4 mg BEDTIME ORAL 12/28/18 21:00 01/27/19 20:59 12/31/18 20:55 Temazepam (Restoril) 15 mg HSPRN PRN ORAL Insomnia 12/27/18 23:45 01/03/19 23:44 Allergies: Coded Allergies: No Known Allergies (Unverified , 04/09/16) ROS Limited/Unobtainable: No Constitutional: Reports: no symptoms HEENT: Reports: no symptoms Cardiovascular: Reports: no symptoms Respiratory: Reports: no symptoms Gastrointestinal/Abdominal: Reports: no symptoms Genitourinary: Reports: no symptoms 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: Reports: no symptoms Subjective 83 YO M admitted with dislodged left nephrostomy tube. Now pyelonephritis. Cover for Int Med-Dr Lowe. S/P cystoscopy and left ureteral stent 12/31/18. Objective Last Vital Signs Date Time Temp Pulse Resp B/P (MAP) Pulse Ox O2 Delivery O2 Flow Rate FiO2 01/01/19 12:00 98.1 64 17 131/55 (80) 99 01/01/19 09:15 Room Air 21 12/31/18 18:18 3 Laboratory Tests Test 01/01/19 05:05 White Blood Count 6.8 K/UL (4.8-10.8) Red Blood Count 3.67 M/UL (4.70-6.10) L Hemoglobin 11.0 G/DL (14.2-18.0) L Hematocrit 31.8 % (42.0-52.0) L Mean Corpuscular Volume 87 FL (80-99) Mean Corpuscular Hemoglobin 29.9 PG (27.0-31.0) Mean Corpuscular Hemoglobin Concent 34.5 G/DL (32.0-36.0) Red Cell Distribution Width 11.2 % (11.6-14.8) L Platelet Count 166 K/UL (150-450) Mean Platelet Volume 5.8 FL (6.5-10.1) L Neutrophils (%) (Auto) % (45.0-75.0) Lymphocytes (%) (Auto) % (20.0-45.0) Monocytes (%) (Auto) % (1.0-10.0) Eosinophils (%) (Auto) % (0.0-3.0) Basophils (%) (Auto) % (0.0-2.0) Differential Total Cells Counted 100 Neutrophils % (Manual) 87 % (45-75) H Lymphocytes % (Manual) 12 % (20-45) L Monocytes % (Manual) 1 % (1-10) Eosinophils % (Manual) 0 % (0-3) Basophils % (Manual) 0 % (0-2) Band Neutrophils 0 % (0-8) Platelet Estimate Adequate Platelet Morphology Normal Hypochromasia 1+ Anisocytosis 1+ Sodium Level 140 MMOL/L (136-145) Potassium Level 4.9 MMOL/L (3.5-5.1) Chloride Level 106 MMOL/L (98-107) Carbon Dioxide Level 29 MMOL/L (21-32) Anion Gap 6 mmol/L (5-15) Blood Urea Nitrogen 20 mg/dL (7-18) H Creatinine 1.0 MG/DL (0.55-1.30) Estimat Glomerular Filtration Rate mL/min (>60) Glucose Level 219 MG/DL (74-106) #H Calcium Level 9.6 MG/DL (8.5-10.1) Intake and Output 12/31/18 01/01/19 19:00 07:00 Intake Total 1060 ml 900 ml Output Total 1000 ml Balance 1060 ml -100 ml IV Total 1060 ml 900 ml Output Urine Total 1000 ml Objective PHYSICAL EXAMINATION: GENERAL: The patient is a well-developed and well-nourished male, in no apparent distress. HEENT: Eyes, pupils are equal and responsive to light and accommodation. Extraocular movements are intact. NECK: Supple without lymphadenopathy. CHEST: Lungs are clear to auscultation bilaterally without wheezes or rales. CARDIOVASCULAR: Regular rhythm and rate. S1 and S2 are normal without murmurs, rubs, or gallops. ABDOMEN: Soft, nontender, and nondistended. Positive bowel sounds. No evidence of hepatosplenomegaly. Currently, no rebound or guarding noted. EXTREMITIES: Negative for clubbing, cyanosis, edema. RECTAL/GENITAL: Not performed. NEUROLOGIC: Cranial nerves II through XII are grossly intact without focal deficits. Assessment/Plan Assessment/Plan ASSESSMENT: This is an 83-year-old male. 1. Urinary tract infection=yves 2. Pyelonephritis. 3. Dislodged left nephrostomy tube. 4. Left hydronephrosis. 5. Bladder cancer. 6. Hypertension. 7. Diabetes type 2. 8. AV conduction defect. 9. Alzheimer's dementia. TREATMENT: 1. Dislodged left nephrostomy tube. CT abd/pelvis=left hydronephrosis. A Urology consultation has been obtained with Dr. Macho Allen. We will follow recommendations of Urology. S/P cystoscopy and left ureteral stent 12/31/18 2. Urinary tract infection/pyelonephritis. A urine culture is pending. The patient has been started empirically on vancomycin intravenously. The patient has also been started on cefepime. An Infectious Disease consultation has been obtained with Dr. Darby. 3. Hypertension. Continue Norvasc as above. 4. Diabetes type 2. NovoLog sliding scale has been instituted. 5. AV conduction defect. The patient is status post pacemaker. 6. Alzheimer's dementia. 7. Onc Consult=Jean-Claude Griffith MD January 01, 2019 15:14
[2019-01-01 16:00] VITALS: BP 118/55
[2019-01-01] MEDS ORDERED: NS Irrig 1000ml ONE (16:45)
--- NOTE | 2019-01-01 19:20 | NUR ---
HAND-OFF: Report given to Navi MARLEY.
--- NOTE | 2019-01-01 19:21 | Pulmonology Progress Note ---
Assessment/Plan Problems: (1) UTI (urinary tract infection) (2) HTN (hypertension) (3) Nephrostomy tube displaced (4) Bladder neoplasm (5) Alzheimer's dementia (6) Diabetes mellitus (7) Chronic cerebrovascular accident (CVA) Assessment/Plan clear urine in Robertson catheter continue iv abx, on cefepime sliding scale diabetic diet Monitor BP dvt prophylaxis. symptomatic treatment Subjective ROS Limited/Unobtainable: No Constitutional: Reports: no symptoms HEENT: Repors: no symptoms Respiratory: Reports: no symptoms Allergies: Coded Allergies: No Known Allergies (Unverified , 04/09/16) Objective Last 24 Hour Vital Signs Date Time Temp Pulse Resp B/P (MAP) Pulse Ox O2 Delivery O2 Flow Rate FiO2 01/01/19 16:00 98.3 62 16 118/55 (76) 99 01/01/19 12:00 98.1 64 17 131/55 (80) 99 01/01/19 09:51 72 131/62 01/01/19 09:15 78 18 98 Room Air 21 01/01/19 09:00 Room Air 01/01/19 08:00 98.0 72 17 131/62 (85) 99 01/01/19 04:00 97.6 66 18 123/58 (79) 98 01/01/19 00:00 97.8 62 18 109/49 (69) 96 12/31/18 21:00 Room Air 12/31/18 19:40 96.7 69 18 122/62 (82) 98 12/31/18 19:32 63 18 98 Room Air 21 Intake and Output 12/31/18 01/01/19 19:00 07:00 Intake Total 1060 ml 900 ml Output Total 1000 ml Balance 1060 ml -100 ml IV Total 1060 ml 900 ml Output Urine Total 1000 ml General Appearance: WD/WN HEENT: normocephalic, atraumatic Respiratory/Chest: chest wall non-tender, lungs clear Cardiovascular: normal peripheral pulses, normal rate Abdomen: normal bowel sounds, no organomegaly Genitourinary: normal external genitalia Extremities: no clubbing Skin: no lesions Laboratory Tests 01/01/19 05:05: White Blood Count 6.8, Red Blood Count 3.67L, Hemoglobin 11.0L, Hematocrit 31.8L , Mean Corpuscular Volume 87, Mean Corpuscular Hemoglobin 29.9, Mean Corpuscular Hemoglobin Concent 34.5, Red Cell Distribution Width 11.2L, Platelet Count 166, Mean Platelet Volume 5.8L, Neutrophils (%) (Auto) , Lymphocytes (%) (Auto) , Monocytes (%) (Auto) , Eosinophils (%) (Auto) , Basophils (%) (Auto) , Differential Total Cells Counted 100, Neutrophils % ( Manual) 87H, Lymphocytes % (Manual) 12L, Monocytes % (Manual) 1, Eosinophils % ( Manual) 0, Basophils % (Manual) 0, Band Neutrophils 0, Platelet Estimate Adequate, Platelet Morphology Normal, Hypochromasia 1+, Anisocytosis 1+, Sodium Level 140, Potassium Level 4.9, Chloride Level 106, Carbon Dioxide Level 29, Anion Gap 6, Blood Urea Nitrogen 20H, Creatinine 1.0, Estimat Glomerular Filtration Rate , Glucose Level 219#H, Calcium Level 9.6 Current Medications Medications (Trade) Dose Ordered Sig/Levi Route PRN Reason Start Time Stop Time Status Last Admin Dose Admin Acetaminophen (Tylenol) 650 mg Q4H PRN ORAL fever 12/27/18 23:45 01/26/19 23:44 01/01/19 14:46 Albuterol/ Ipratropium (Albuterol/ Ipratropium) 3 ml Q4H PRN HHN Shortness of Breath 12/27/18 23:45 01/01/19 23:44 Amlodipine Besylate (Norvasc) 2.5 mg DAILY ORAL 12/28/18 09:00 01/27/19 08:59 01/01/19 09:51 Dextrose (Dextrose 50%) 25 ml STAT PRN IV Hypoglycemia 12/28/18 11:45 01/27/19 11:44 Dextrose (Dextrose 50%) 50 ml STAT PRN IV Hypoglycemia 12/28/18 11:45 01/27/19 11:44 Finasteride (Proscar) 5 mg DAILY ORAL 12/28/18 09:00 01/27/19 08:59 01/01/19 09:50 Fluconazole (Diflucan) 200 mg DAILY ORAL 12/31/18 09:00 01/02/19 10:00 01/01/19 09:50 Heparin Sodium (Porcine) (Heparin 5000 units/ml) 5,000 units EVERY 12 HOURS SUBQ 12/28/18 09:00 01/27/19 08:59 01/01/19 09:52 Insulin Aspart (NovoLOG) BEFORE MEALS AND HS SUBQ 12/28/18 06:30 01/27/19 06:29 01/01/19 17:20 Morphine Sulfate (Morphine Sulfate) 2 mg Q4H PRN IVP Moderate Pain (Pain Scale 4-6) 12/27/18 23:45 01/03/19 23:44 01/01/19 03:18 Nitroglycerin (Ntg) 0.4 mg Q5M PRN SL Prn Chest Pain 12/27/18 23:45 01/26/19 23:44 Ondansetron HCl (Zofran) 4 mg Q6H PRN IVP Nausea & Vomiting 12/27/18 23:45 01/26/19 23:44 Polyethylene Glycol (Miralax) 17 gm DAILYPRN PRN ORAL Constipation 12/27/18 23:45 01/26/19 23:44 Sodium Chloride 1,000 ml @ 75 mls/hr [id number] IV 12/27/18 01:00 01/26/19 00:59 01/01/19 14:32 Tamsulosin HCl (Flomax) 0.4 mg BEDTIME ORAL 12/28/18 21:00 01/27/19 20:59 12/31/18 20:55 Temazepam (Restoril) 15 mg HSPRN PRN ORAL Insomnia 12/27/18 23:45 01/03/19 23:44 Og Hinlke MD January 01, 2019 19:21
--- NOTE | 2019-01-01 19:45 | NUR ---
NURSE NOTES: Pt received from DONELL Rader alert and oriented x2 to name and place only. IV site asymptomatic and patent on L fa 18g, running NS at 75 as ordered. Robertson catheter patent and draining to wes colored urine. Bed in lowest position, call light and belongings within reach.
[2019-01-01 20:00] VITALS: BP 129/61
[2019-01-01] MEDS: Tamsulosin 0.4mg cap ORAL SCH (20:38)
[2019-01-02] VITALS: BP 120/56
--- NOTE | 2019-01-02 03:20 | NUR ---
NURSE NOTES: Pt currently resting in bed with no acute s/s of distress. Pt had bowel movement - soft, moderate - given bed bath and linen change. IV site asymptomatic and patent, running to prescribed IV fluids as ordered. Robertson catheter patent and draining to light peach-colored urine. Bed in lowest position, bed alarm on. Call light and belongings within reach.
[2019-01-02 04:00] VITALS: BP 136/69
[2019-01-02] MEDS: NovoLOG Insulin Flexpen SUBQ SCH ×4 (06:23→21:32)
[2019-01-02 07:19] LABS: BASOPHILS % (AUTO) 0.4 % (0.0-2.0); EOSINOPHILS % (AUTO) 0.1 % (0.0-3.0); HEMATOCRIT 28.4 % (42.0-52.0); HEMOGLOBIN 9.7 G/DL (14.2-18.0); LYMPHOCYTES % (AUTO) 13.1 % (20.0-45.0); MEAN CORPUSCULAR VOLUME 86 FL (80-99); MONOCYTES % (AUTO) 5.6 % (1.0-10.0); NEUTROPHILS % (AUTO) 80.8 % (45.0-75.0); PLATELET COUNT 152 K/UL (150-450); RED BLOOD COUNT 3.31 M/UL (4.70-6.10); RED CELL DISTRIBUTION WIDTH 11.3 % (11.6-14.8); WHITE BLOOD COUNT 10.6 K/UL (4.8-10.8)
--- NOTE | 2019-01-02 07:20 | NUR ---
NURSE NOTES: WALKING ROUNDS DONE WITH OUTGOING RN. PATIENT AWAKE IN BED. HEAD TO TOE SKIN ASSESSMENT COMPLETED. OPTIFOAM TO LEFT POSTERIOR BACK, SACRAL,BILATERAL HEELS, RLE ALL DRY AND INTACT. SULLIVAN CATHETER PATENT AND SECURED TO ANTERIOR LEFT THIGH. DRAINING TO GRAVITY STRAW COLORED URINE. NO SEDIMENTS PRESENT.
--- NOTE | 2019-01-02 07:32 | NUR ---
HAND-OFF: Report given to DONELL John. No acute s/s of distress noted.
--- NOTE | 2019-01-02 07:46 | NUR ---
NURSE NOTES: ADDENDUM BED IN LOW AND LOCKED POSITION WITH BED ALARM ACTIVATED. CALL LIGHT WITHIN REACH. RETURN DEMONSTRATION ON HOW TO USE CALL LIGHT SUCCESSFUL. WILL CONTINUE TO MONITOR.
[2019-01-02 08:00] VITALS: BP 125/62
[2019-01-02] MEDS: Fluconazole 100mg tab ORAL SCH (08:37)
[2019-01-02] MEDS: Morphine Sulfate 2mg/ml Inj(IV/IM USE ONLY) IVP PRN ×2 (08:38→14:54)
[2019-01-02] MEDS: Heparin 5000 units/ml inj SUBQ SCH ×2 (08:39→21:07)
--- NOTE | 2019-01-02 09:32 | Urology Progress Note ---
Assessment/Plan Assessment/Plan: 1. History of left-sided hydronephrosis with dislodged nephrostomy tube. 2. Bladder cancer history. 3. Benign prostatic hypertrophy. 4. Lower urinary tract symptoms. 5. Neurogenic bladder. 6. Hematuria. 7. Pyuria. 8. Proteinuria. 9. POD # 2, cysto/fulg/stent monitor clinically keep hernandez indwelling for now hand irrigated, no clots voiding trial later med onc noted cont flomax and proscar s/p abx diflucan added Subjective Allergies: Coded Allergies: No Known Allergies (Unverified , 04/09/16) Subjective all noted, looks comfortable Objective Last 24 Hour Vital Signs Date Time Temp Pulse Resp B/P (MAP) Pulse Ox O2 Delivery O2 Flow Rate FiO2 01/02/19 09:08 97.0 01/02/19 09:00 Room Air 01/02/19 08:37 74 125/62 01/02/19 08:00 97.0 56 18 125/62 (83) 97 01/02/19 08:00 74 18 96 Room Air 21 01/02/19 04:00 97.3 61 16 136/69 (91) 98 01/02/19 00:00 98.3 62 17 120/56 (77) 99 01/01/19 21:15 76 18 95 Room Air 21 01/01/19 21:00 Room Air 01/01/19 20:00 98.5 62 18 129/61 (83) 98 01/01/19 16:00 98.3 62 16 118/55 (76) 99 01/01/19 12:00 98.1 64 17 131/55 (80) 99 01/01/19 09:51 72 131/62 Intake and Output 01/01/19 01/02/19 19:00 07:00 Intake Total 2150 ml 700 ml Output Total 400 ml 2350 ml Balance 1750 ml -1650 ml Intake Oral 1400 ml 150 ml IV Total 750 ml 450 ml Other 100 ml Output Urine Total 400 ml 2350 ml # Bowel Movements 2 2 Microbiology Date/Time Source Procedure Growth Status 12/27/18 22:00 Nasal Nares MRSA Culture - Final NO METHICILLIN RESISTANT STAPH AUREUS... Complete 12/27/18 22:00 Urine,Clean Catch Urine Culture - Final Neha Tropicalis Complete 12/27/18 22:00 Rectum VRE Culture - Final NO VANCOMYCIN RESISTANT ENTEROCOCCUS ... Complete 12/27/18 22:00 Rectum - Final NO CARBAPENEM-RESISTANT ENTEROBACTERI... Complete Current Medications Medications (Trade) Dose Ordered Sig/Levi Route PRN Reason Start Time Stop Time Status Last Admin Dose Admin Acetaminophen (Tylenol) 650 mg Q4H PRN ORAL fever 12/27/18 23:45 01/26/19 23:44 01/01/19 23:04 Amlodipine Besylate (Norvasc) 2.5 mg DAILY ORAL 12/28/18 09:00 01/27/19 08:59 01/02/19 08:37 Dextrose (Dextrose 50%) 25 ml STAT PRN IV Hypoglycemia 12/28/18 11:45 01/27/19 11:44 Dextrose (Dextrose 50%) 50 ml STAT PRN IV Hypoglycemia 12/28/18 11:45 01/27/19 11:44 Finasteride (Proscar) 5 mg DAILY ORAL 12/28/18 09:00 01/27/19 08:59 01/02/19 08:37 Fluconazole (Diflucan) 200 mg DAILY ORAL 12/31/18 09:00 01/02/19 10:00 01/02/19 08:37 Heparin Sodium (Porcine) (Heparin 5000 units/ml) 5,000 units EVERY 12 HOURS SUBQ 12/28/18 09:00 01/27/19 08:59 01/02/19 08:39 Insulin Aspart (NovoLOG) BEFORE MEALS AND HS SUBQ 12/28/18 06:30 01/27/19 06:29 01/02/19 06:23 Morphine Sulfate (Morphine Sulfate) 2 mg Q4H PRN IVP Moderate Pain (Pain Scale 4-6) 12/27/18 23:45 01/03/19 23:44 01/02/19 08:38 Nitroglycerin (Ntg) 0.4 mg Q5M PRN SL Prn Chest Pain 12/27/18 23:45 01/26/19 23:44 Ondansetron HCl (Zofran) 4 mg Q6H PRN IVP Nausea & Vomiting 12/27/18 23:45 01/26/19 23:44 Polyethylene Glycol (Miralax) 17 gm DAILYPRN PRN ORAL Constipation 12/27/18 23:45 01/26/19 23:44 Sodium Chloride 1,000 ml @ 75 mls/hr [id number] IV 12/27/18 01:00 01/26/19 00:59 01/02/19 04:03 Tamsulosin HCl (Flomax) 0.4 mg BEDTIME ORAL 12/28/18 21:00 01/27/19 20:59 01/01/19 20:38 Temazepam (Restoril) 15 mg HSPRN PRN ORAL Insomnia 12/27/18 23:45 01/03/19 23:44 01/01/19 23:04 Laboratory Tests 01/02/19 05:00: White Blood Count 10.6#, Red Blood Count 3.31L, Hemoglobin 9.7L, Hematocrit 28.4L, Mean Corpuscular Volume 86, Mean Corpuscular Hemoglobin 29.2, Mean Corpuscular Hemoglobin Concent 34.0, Red Cell Distribution Width 11.3L, Platelet Count 152, Mean Platelet Volume 6.4L, Neutrophils (%) (Auto) 80.8H, Lymphocytes (%) (Auto) 13.1L, Monocytes (%) (Auto) 5.6, Eosinophils (%) (Auto) 0.1, Basophils (%) (Auto) 0.4 Height (Feet): 5 Height (Inches): 11.00 Weight (Pounds): 180 Objective exam stable, hernandez indwelling, urine blood-tinged/wes renal u/s and CT noted Macho Allen MD January 02, 2019 09:31
[2019-01-02 12:00] VITALS: BP_SYST 134; BP_SYST 166; BP_DIAS 67; BP_DIAS 69
--- NOTE | 2019-01-02 13:01 | Internal Med Progress Note ---
Subjective Date of Service: January 02, 2019 Physician Name Jean-Claude Peter Attending Physician Jaziel Lowe MD Current Medications Medications (Trade) Dose Ordered Sig/Levi Route PRN Reason Start Time Stop Time Status Last Admin Dose Admin Acetaminophen (Tylenol) 650 mg Q4H PRN ORAL fever 12/27/18 23:45 01/26/19 23:44 01/01/19 23:04 Amlodipine Besylate (Norvasc) 2.5 mg DAILY ORAL 12/28/18 09:00 01/27/19 08:59 01/02/19 08:37 Dextrose (Dextrose 50%) 25 ml STAT PRN IV Hypoglycemia 12/28/18 11:45 01/27/19 11:44 Dextrose (Dextrose 50%) 50 ml STAT PRN IV Hypoglycemia 12/28/18 11:45 01/27/19 11:44 Finasteride (Proscar) 5 mg DAILY ORAL 12/28/18 09:00 01/27/19 08:59 01/02/19 08:37 Heparin Sodium (Porcine) (Heparin 5000 units/ml) 5,000 units EVERY 12 HOURS SUBQ 12/28/18 09:00 01/27/19 08:59 01/02/19 08:39 Insulin Aspart (NovoLOG) BEFORE MEALS AND HS SUBQ 12/28/18 06:30 01/27/19 06:29 01/02/19 12:01 Morphine Sulfate (Morphine Sulfate) 2 mg Q4H PRN IVP Moderate Pain (Pain Scale 4-6) 12/27/18 23:45 01/03/19 23:44 01/02/19 08:38 Nitroglycerin (Ntg) 0.4 mg Q5M PRN SL Prn Chest Pain 12/27/18 23:45 01/26/19 23:44 Ondansetron HCl (Zofran) 4 mg Q6H PRN IVP Nausea & Vomiting 12/27/18 23:45 01/26/19 23:44 Polyethylene Glycol (Miralax) 17 gm DAILYPRN PRN ORAL Constipation 12/27/18 23:45 01/26/19 23:44 Sodium Chloride 1,000 ml @ 75 mls/hr [id number] IV 12/27/18 01:00 01/26/19 00:59 01/02/19 04:03 Tamsulosin HCl (Flomax) 0.4 mg BEDTIME ORAL 5/21/19 21:00 01/27/19 20:59 01/01/19 20:38 Temazepam (Restoril) 15 mg HSPRN PRN ORAL Insomnia 12/27/18 23:45 01/03/19 23:44 01/01/19 23:04 Allergies: Coded Allergies: No Known Allergies (Unverified , 04/09/16) ROS Limited/Unobtainable: No Constitutional: Reports: no symptoms HEENT: Reports: no symptoms Cardiovascular: Reports: no symptoms Respiratory: Reports: no symptoms Gastrointestinal/Abdominal: Reports: no symptoms Genitourinary: Reports: no symptoms 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: Reports: no symptoms Subjective 83 YO M admitted with dislodged left nephrostomy tube. Now pyelonephritis. Cover for [facility]-Dr Lowe. S/P cystoscopy and left ureteral stent 12/31/18. Objective Last Vital Signs Date Time Temp Pulse Resp B/P (MAP) Pulse Ox O2 Delivery O2 Flow Rate FiO2 01/02/19 12:00 97.6 61 18 134/67 (89) 99 01/02/19 09:00 Room Air 01/02/19 08:00 21 12/31/18 18:18 3 Laboratory Tests Test 01/02/19 05:00 White Blood Count 10.6 K/UL (4.8-10.8) # Red Blood Count 3.31 M/UL (4.70-6.10) L Hemoglobin 9.7 G/DL (14.2-18.0) L Hematocrit 28.4 % (42.0-52.0) L Mean Corpuscular Volume 86 FL (80-99) Mean Corpuscular Hemoglobin 29.2 PG (27.0-31.0) Mean Corpuscular Hemoglobin Concent 34.0 G/DL (32.0-36.0) Red Cell Distribution Width 11.3 % (11.6-14.8) L Platelet Count 152 K/UL (150-450) Mean Platelet Volume 6.4 FL (6.5-10.1) L Neutrophils (%) (Auto) 80.8 % (45.0-75.0) H Lymphocytes (%) (Auto) 13.1 % (20.0-45.0) L Monocytes (%) (Auto) 5.6 % (1.0-10.0) Eosinophils (%) (Auto) 0.1 % (0.0-3.0) Basophils (%) (Auto) 0.4 % (0.0-2.0) Intake and Output 01/01/19 01/02/19 18:59 06:59 Intake Total 2150 ml 625 ml Output Total 400 ml 2350 ml Balance 1750 ml -1725 ml Intake Oral 1400 ml 150 ml IV Total 750 ml 375 ml Other 100 ml Output Urine Total 400 ml 2350 ml # Bowel Movements 2 2 Objective PHYSICAL EXAMINATION: GENERAL: The patient is a well-developed and well-nourished male, in no apparent distress. HEENT: Eyes, pupils are equal and responsive to light and accommodation. Extraocular movements are intact. NECK: Supple without lymphadenopathy. CHEST: Lungs are clear to auscultation bilaterally without wheezes or rales. CARDIOVASCULAR: Regular rhythm and rate. S1 and S2 are normal without murmurs, rubs, or gallops. ABDOMEN: Soft, nontender, and nondistended. Positive bowel sounds. No evidence of hepatosplenomegaly. Currently, no rebound or guarding noted. EXTREMITIES: Negative for clubbing, cyanosis, edema. RECTAL/GENITAL: Not performed. NEUROLOGIC: Cranial nerves II through XII are grossly intact without focal deficits. Assessment/Plan Assessment/Plan ASSESSMENT: This is an 83-year-old male. 1. Urinary tract infection=yves 2. Pyelonephritis. 3. Dislodged left nephrostomy tube. 4. Left hydronephrosis. 5. Bladder cancer. 6. Hypertension. 7. Diabetes type 2. 8. AV conduction defect. 9. Alzheimer's dementia. TREATMENT: 1. Dislodged left nephrostomy tube. CT abd/pelvis=left hydronephrosis. A Urology consultation has been obtained with Dr. Macho Allen. We will follow recommendations of Urology. S/P cystoscopy and left ureteral stent 12/31/18 2. Urinary tract infection/pyelonephritis. Yves. Continue fluconazole per Infectious Disease-Dr. Darby. 3. Hypertension. Continue Norvasc as above. 4. Diabetes type 2. NovoLog sliding scale has been instituted. 5. AV conduction defect. The patient is status post pacemaker. 6. Alzheimer's dementia. 7. Onc Consult=Jean-Claude Griffith MD January 02, 2019 13:01
--- NOTE | 2019-01-02 15:24 | NUR ---
CASE MANAGEMENT: REVIEW 01/02/2019 SI: DISPLACEMENT OF NEPHROSTOMY CATHETER. UTI. T 97.6 HR 61 RR 18 B/P 134/67 SATS 99% ON RA HGB 9.7 HCT 28.4 IS:IVF @ 75 ml/HR FLOMAX PO QHS NORVASC PO QD PROSCAR PO QD INSULIN ASPART SUBQ AC/HS MED/SURG STATUS
[2019-01-02 15:56] VITALS: BP 133/67
--- NOTE | 2019-01-02 16:22 | NUR ---
NURSE NOTES: PATIENT DOING WELL TODAY. UP TO CHAIR FOR MEALS. PAIN CONTROLLED WITH MORPHINE GIVEN ORDERED. SULLIVAN CATHETER PATENT. SMALL SEDIMENTS NOTED. FLUSHED WITH NS 60 CC'S; TOLERATED WELL.
--- NOTE | 2019-01-02 17:01 | Hematology/Onc Progress Note ---
Assessment/Plan Assessment/Plan Assessment and Recs: # Bladder cancer extensive stage, PD1+ on biopsy from 12/2018 results, iintially with L hydronephrosis/L Hydroureter 2ry to extensive bladder tumor, that is extensive stage. 11/25 SP Cystoscopy, urethral calibration, transurethral resection of extensive bladder tumor with fulguration, and right retrograde pyelogram. Findings: The patient had what appeared to be a large bladder tumor that involved most of the left side of the bladder extending posteriorly and completely obliterating the left ureteral orifice. Seen by urology --> CT abd/p: Limited assessment of the GI tract, due to lack of enteric contrast administration. Moderate left hydronephrosis and hydroureter. Hydroureter extends to the bladder, where there is asymmetric posterolateral wall thickening raises concern for neoplasm. There is also generalized wall thickening, possibly on the basis of cystitis or chronic bladder outlet obstruction. No definite findings to suggest etiology of stated clinical history of GI bleed. Cholelithiasis. Basilar pulmonary atelectasis and equivocal slight interstitial congestion. L1 vertebral body compression fracture deformity, age indeterminate. --> appreciate urology recs, pulm recs --> 12/31: s/p stent placement --> urology and pcp followup # Anemia due to lower GI bleed --> appreciate gi recs, reviewed endoscopy report --> anemia panel has been reviewed before # Anemia due iron deficiency due to hemorrhoid bleed --> iv iron started, continue x 5 days --> appreciate gi recs # Hydronephrosis --> s/p stent placement # Chronic cerebrovascular accident (CVA) --> per neuro as needed # Diabetes mellitus II --> accuchecks qac and qhs --> insulin coverage as needed # Alzheimer's dementia # HTN (hypertension) The timing of this note does not necessarily reflect the time of the patient was seen. Greatly appreciate consultation! Subjective Constitutional: Denies: no symptoms, chills, fever, malaise, weakness, other HEENT: Denies: no symptoms, eye pain, blurred vision, tearing, double vision, ear pain, ear discharge, nose pain, nose congestion, throat pain, throat swelling, mouth pain, mouth swelling, other Cardiovascular: Denies: no symptoms, chest pain, edema, irregular heart rate, lightheadedness, palpitations, syncope, other Gastrointestinal/Abdominal: Denies: no symptoms, abdomen distended, abdominal pain, black stools, tarry stools, blood in stool, constipated, diarrhea, difficulty swallowing, nausea, poor appetite, poor fluid intake, rectal bleeding , vomiting, other Genitourinary: Denies: no symptoms, burning, discharge, frequency, flank pain, hematuria, incontinence, pain, urgency, other 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: Denies: no symptoms, anxiety, depressed, emotional problems, headache, numbness, paresthesia, pre-existing deficit, seizure, tingling, tremors, weakness, other Endocrine: Denies: no symptoms, excessive sweating, flushing, intolerance to cold, intolerance to heat, increased hunger, increased thirst, increased urine, unexplained weight gain, unexplained weight loss, other Hematologic/Lymphatic: Denies: no symptoms, anemia, easy bleeding, easy bruising, adenopathy, other Allergies: Coded Allergies: No Known Allergies (Unverified , 04/09/16) Subjective 01/02: no events, no f/c, no night sweats noted, s/p cysto, s/p stent placement Objective Objective Current Medications Medications (Trade) Dose Ordered Sig/Levi Route PRN Reason Start Time Stop Time Status Last Admin Dose Admin Acetaminophen (Tylenol) 650 mg Q4H PRN ORAL fever 12/27/18 23:45 01/26/19 23:44 01/01/19 23:04 Amlodipine Besylate (Norvasc) 2.5 mg DAILY ORAL 12/28/18 09:00 01/27/19 08:59 01/02/19 08:37 Dextrose (Dextrose 50%) 25 ml STAT PRN IV Hypoglycemia 12/28/18 11:45 01/27/19 11:44 Dextrose (Dextrose 50%) 50 ml STAT PRN IV Hypoglycemia 12/28/18 11:45 01/27/19 11:44 Finasteride (Proscar) 5 mg DAILY ORAL 12/28/18 09:00 01/27/19 08:59 01/02/19 08:37 Heparin Sodium (Porcine) (Heparin 5000 units/ml) 5,000 units EVERY 12 HOURS SUBQ 12/28/18 09:00 01/27/19 08:59 01/02/19 08:39 Insulin Aspart (NovoLOG) BEFORE MEALS AND HS SUBQ 12/28/18 06:30 01/27/19 06:29 01/02/19 12:01 Morphine Sulfate (Morphine Sulfate) 2 mg Q4H PRN IVP Moderate Pain (Pain Scale 4-6) 12/27/18 23:45 01/03/19 23:44 01/02/19 14:54 Nitroglycerin (Ntg) 0.4 mg Q5M PRN SL Prn Chest Pain 12/27/18 23:45 01/26/19 23:44 Ondansetron HCl (Zofran) 4 mg Q6H PRN IVP Nausea & Vomiting 12/27/18 23:45 01/26/19 23:44 Polyethylene Glycol (Miralax) 17 gm DAILYPRN PRN ORAL Constipation 12/27/18 23:45 01/26/19 23:44 Sodium Chloride 1,000 ml @ 75 mls/hr [id number] IV 12/27/18 01:00 01/26/19 00:59 01/02/19 04:03 Tamsulosin HCl (Flomax) 0.4 mg BEDTIME ORAL 12/28/18 21:00 01/27/19 20:59 01/01/19 20:38 Temazepam (Restoril) 15 mg HSPRN PRN ORAL Insomnia 12/27/18 23:45 01/03/19 23:44 01/01/19 23:04 Last 24 Hour Vital Signs Date Time Temp Pulse Resp B/P (MAP) Pulse Ox O2 Delivery O2 Flow Rate FiO2 01/02/19 15:56 98.0 60 20 133/67 (89) 96 01/02/19 15:24 97.6 01/02/19 12:00 97.6 61 18 134/67 (89) 99 01/02/19 09:00 Room Air 01/02/19 08:37 74 125/62 01/02/19 08:00 97.0 56 18 125/62 (83) 97 01/02/19 08:00 74 18 96 Room Air 21 01/02/19 04:00 97.3 61 16 136/69 (91) 98 01/02/19 00:00 98.3 62 17 120/56 (77) 99 01/01/19 21:15 76 18 95 Room Air 21 01/01/19 21:00 Room Air 01/01/19 20:00 98.5 62 18 129/61 (83) 98 01/01/19 16:00 98.3 62 16 118/55 (76) 99 01/01/19 12:00 98.1 64 17 131/55 (80) 99 01/01/19 09:51 72 131/62 01/01/19 09:15 78 18 98 Room Air 21 01/01/19 09:00 Room Air 01/01/19 08:00 98.0 72 17 131/62 (85) 99 01/01/19 04:00 97.6 66 18 123/58 (79) 98 01/01/19 00:00 97.8 62 18 109/49 (69) 96 12/31/18 21:00 Room Air 12/31/18 19:40 96.7 69 18 122/62 (82) 98 12/31/18 19:32 63 18 98 Room Air 21 12/31/18 19:10 97.2 74 18 125/66 (85) 100 12/31/18 18:40 96.8 60 20 128/79 (95) 100 12/31/18 18:18 97.0 60 18 144/68 100 Nasal Cannula 3 12/31/18 18:05 60 15 151/69 100 Nasal Cannula 3 12/31/18 17:55 60 14 149/66 100 Nasal Cannula 3 12/31/18 17:50 60 16 154/73 100 Simple Mask 6 12/31/18 17:44 97.0 59 16 154/96 100 Simple Mask 6 12/31/18 17:42 60 18 100 12/31/18 17:41 60 16 100 Intake and Output 01/01/19 01/02/19 18:59 06:59 Intake Total 2150 ml 625 ml Output Total 400 ml 2350 ml Balance 1750 ml -1725 ml Intake Oral 1400 ml 150 ml IV Total 750 ml 375 ml Other 100 ml Output Urine Total 400 ml 2350 ml # Bowel Movements 2 2 Labs Test 12/31/18 05:30 12/31/18 12:50 01/01/19 05:05 01/02/19 05:00 White Blood Count 7.5 K/UL (4.8-10.8) 6.8 K/UL (4.8-10.8) 10.6 K/UL (4.8-10.8) Red Blood Count 3.56 M/UL (4.70-6.10) 3.67 M/UL (4.70-6.10) 3.31 M/UL (4.70-6.10) Hemoglobin 10.6 G/DL (14.2-18.0) 11.0 G/DL (14.2-18.0) 9.7 G/DL (14.2-18.0) Hematocrit 30.6 % (42.0-52.0) 31.8 % (42.0-52.0) 28.4 % (42.0-52.0) Mean Corpuscular Volume 86 FL (80-99) 87 FL (80-99) 86 FL (80-99) Mean Corpuscular Hemoglobin 29.8 PG (27.0-31.0) 29.9 PG (27.0-31.0) 29.2 PG (27.0-31.0) Mean Corpuscular Hemoglobin Concent 34.6 G/DL (32.0-36.0) 34.5 G/DL (32.0-36.0) 34.0 G/DL (32.0-36.0) Red Cell Distribution Width 11.4 % (11.6-14.8) 11.2 % (11.6-14.8) 11.3 % (11.6-14.8) Platelet Count 166 K/UL (150-450) 166 K/UL (150-450) 152 K/UL (150-450) Mean Platelet Volume 5.7 FL (6.5-10.1) 5.8 FL (6.5-10.1) 6.4 FL (6.5-10.1) Neutrophils (%) (Auto) 71.3 % (45.0-75.0) % (45.0-75.0) 80.8 % (45.0-75.0) Lymphocytes (%) (Auto) 21.2 % (20.0-45.0) % (20.0-45.0) 13.1 % (20.0-45.0) Monocytes (%) (Auto) 6.5 % (1.0-10.0) % (1.0-10.0) 5.6 % (1.0-10.0) Eosinophils (%) (Auto) 0.0 % (0.0-3.0) % (0.0-3.0) 0.1 % (0.0-3.0) Basophils (%) (Auto) 1.0 % (0.0-2.0) % (0.0-2.0) 0.4 % (0.0-2.0) Sodium Level 140 MMOL/L (136-145) 140 MMOL/L (136-145) Potassium Level 3.8 MMOL/L (3.5-5.1) 4.9 MMOL/L (3.5-5.1) Chloride Level 107 MMOL/L (98-107) 106 MMOL/L (98-107) Carbon Dioxide Level 27 MMOL/L (21-32) 29 MMOL/L (21-32) Anion Gap 6 mmol/L (5-15) 6 mmol/L (5-15) Blood Urea Nitrogen 15 mg/dL (7-18) 20 mg/dL (7-18) Creatinine 0.9 MG/DL (0.55-1.30) 1.0 MG/DL (0.55-1.30) Estimat Glomerular Filtration Rate mL/min (>60) mL/min (>60) Glucose Level 93 MG/DL (74-106) 219 MG/DL (74-106) Calcium Level 9.8 MG/DL (8.5-10.1) 9.6 MG/DL (8.5-10.1) Prothrombin Time 11.1 SEC (9.30-11.50) Prothromb Time International Ratio 1.1 (0.9-1.1) Activated Partial Thromboplast Time 29 SEC (23-33) Differential Total Cells Counted 100 Neutrophils % (Manual) 87 % (45-75) Lymphocytes % (Manual) 12 % (20-45) Monocytes % (Manual) 1 % (1-10) Eosinophils % (Manual) 0 % (0-3) Basophils % (Manual) 0 % (0-2) Band Neutrophils 0 % (0-8) Platelet Estimate Adequate Platelet Morphology Normal Hypochromasia 1+ Anisocytosis 1+ Height (Feet): 5 Height (Inches): 11.00 Weight (Pounds): 180 Objective Sp02 EP Interpretation: reviewed, normal General Appearance: well appearing, no apparent distress, alert Head: normocephalic, atraumatic Eyes: bilateral eye PERRL, bilateral eye EOMI ENT: hearing grossly normal, normal pharynx Neck: full range of motion, supple, no meningismus Respiratory: chest non-tender, lungs clear, normal breath sounds CV: regular rate, rhythm, no murmur GI: normal bowel sounds, non tender, no mass, no organomegaly, no bruit, non- distended Musculoskeletal: back normal, gait/station normal, normal range of motion, other - No active drainage from left flank Psychiatric: mood/affect normal Skin: warm/dry Pierce Mcguire MD January 02, 2019 17:00
--- NOTE | 2019-01-02 19:30 | NUR ---
HAND-OFF: Report given to KATHYA GONZALEZ RN.
--- NOTE | 2019-01-02 19:30 | NUR ---
NURSE NOTES: Received report from DONELL John. Patient resting in bed. Bed in low position, locked, side rails up x2. Call light within reach. No distress noted. Robertson catheter draining clear yellow urine. IVF infusing in LFA, intact and patent. Patient alert and oriented x3. Right leg skin tear is covered with optifoam. Left leg skin tear open to air. Optifoam on sacral area and bilat heels for prevention. Triad cream to sacral and scrotal areas. Incontinent of stool, cleaned and repositioned for comfort.
[2019-01-02 20:00] VITALS: BP 141/65
--- NOTE | 2019-01-02 20:50 | Infectious Diseases Prog Note ---
Assessment/Plan Assessment/Plan Assessment: Probable UTI -u/a wbc tnct, nit, leuk +3; ucx 25-50 yeast (prelim) Afebrile Leukocytosis, SP Dislodged L Nephrostomy Tube -CT abd/p: Persistent moderate left hydronephrosis. Currently there is a tiny 1 mm stone on the bladder side of the UVJ. Not certain if this is the reason for the hydronephrosis given similar appearance previously without a stone. Marked thickening of the bladder wall may be related. Underlying mass or ureterocele not excluded. Correlation with cystoscopy recommended. Mild right hydronephrosis. No obstructing stone identified. Cholelithiasis.Moderate stool retention in the colon.Multiple additional incidental findings as described above. -renal US: Bilateral hydronephrosis. hx of UTI bladder CA c/w hydronephrosis s/p nephrostomy - -11/25 SP Cystoscopy, urethral calibration, transurethral resection of extensive bladder tumor with fulguration, and right retrograde pyelogram. -Findings: The patient had what appeared to be a large bladder tumor that involved most of the left side of the bladder extending posteriorly and completely obliterating the left ureteral orifice. I was unable to place a stent on the left side. 01/01 SP Cystoscopy Recente hematochezia 2ry to hemorroids Dm2 Dementia HTN BPH urinary incontinence AV dissociation w/ conduction s/p PPM metabolic encephalopathy UTI seizure disorders CVA [facility] resident Plan: - 01/01 Sp PO fluconazole # 3- will treat funguria 12/31 Sp Cefepime #12/12 for presumed UTI -12/28 SP IV Vancomycin #2 -Monitor CBC/CMP, temperatures -uro f/u -aspiration precautions Subjective Allergies: Coded Allergies: No Known Allergies (Unverified , 04/09/16) Subjective Afebrile sp Cysto Objective Vital Signs Last 24 Hour Vital Signs Date Time Temp Pulse Resp B/P (MAP) Pulse Ox O2 Delivery O2 Flow Rate FiO2 01/02/19 15:56 98.0 60 20 133/67 (89) 96 01/02/19 15:24 97.6 01/02/19 12:00 97.6 61 18 134/67 (89) 99 01/02/19 09:00 Room Air 01/02/19 08:37 74 125/62 01/02/19 08:00 97.0 56 18 125/62 (83) 97 01/02/19 08:00 74 18 96 Room Air 21 01/02/19 04:00 97.3 61 16 136/69 (91) 98 01/02/19 00:00 98.3 62 17 120/56 (77) 99 01/01/19 21:15 76 18 95 Room Air 21 01/01/19 21:00 Room Air Height (Feet): 5 Height (Inches): 11.00 Weight (Pounds): 180 HEENT: anicteric Respiratory/Chest: no respiratory distress Cardiovascular: regular rhythm Abdomen: no organomegaly Laboratory Tests Test 01/02/19 05:00 White Blood Count 10.6 K/UL (4.8-10.8) # Red Blood Count 3.31 M/UL (4.70-6.10) L Hemoglobin 9.7 G/DL (14.2-18.0) L Hematocrit 28.4 % (42.0-52.0) L Mean Corpuscular Volume 86 FL (80-99) Mean Corpuscular Hemoglobin 29.2 PG (27.0-31.0) Mean Corpuscular Hemoglobin Concent 34.0 G/DL (32.0-36.0) Red Cell Distribution Width 11.3 % (11.6-14.8) L Platelet Count 152 K/UL (150-450) Mean Platelet Volume 6.4 FL (6.5-10.1) L Neutrophils (%) (Auto) 80.8 % (45.0-75.0) H Lymphocytes (%) (Auto) 13.1 % (20.0-45.0) L Monocytes (%) (Auto) 5.6 % (1.0-10.0) Eosinophils (%) (Auto) 0.1 % (0.0-3.0) Basophils (%) (Auto) 0.4 % (0.0-2.0) Current Medications Medications (Trade) Dose Ordered Sig/Levi Route PRN Reason Start Time Stop Time Status Last Admin Dose Admin Acetaminophen (Tylenol) 650 mg Q4H PRN ORAL fever 12/27/18 23:45 01/26/19 23:44 01/01/19 23:04 Amlodipine Besylate (Norvasc) 2.5 mg DAILY ORAL 12/28/18 09:00 01/27/19 08:59 01/02/19 08:37 Dextrose (Dextrose 50%) 25 ml STAT PRN IV Hypoglycemia 12/28/18 11:45 01/27/19 11:44 Dextrose (Dextrose 50%) 50 ml STAT PRN IV Hypoglycemia 12/28/18 11:45 01/27/19 11:44 Finasteride (Proscar) 5 mg DAILY ORAL 12/28/18 09:00 01/27/19 08:59 01/02/19 08:37 Heparin Sodium (Porcine) (Heparin 5000 units/ml) 5,000 units EVERY 12 HOURS SUBQ 12/28/18 09:00 01/27/19 08:59 01/02/19 08:39 Insulin Aspart (NovoLOG) BEFORE MEALS AND HS SUBQ 12/28/18 06:30 01/27/19 06:29 01/02/19 16:58 Morphine Sulfate (Morphine Sulfate) 2 mg Q4H PRN IVP Moderate Pain (Pain Scale 4-6) 12/27/18 23:45 01/03/19 23:44 01/02/19 14:54 Nitroglycerin (Ntg) 0.4 mg Q5M PRN SL Prn Chest Pain 12/27/18 23:45 01/26/19 23:44 Ondansetron HCl (Zofran) 4 mg Q6H PRN IVP Nausea & Vomiting 12/27/18 23:45 01/26/19 23:44 Polyethylene Glycol (Miralax) 17 gm DAILYPRN PRN ORAL Constipation 12/27/18 23:45 01/26/19 23:44 Sodium Chloride 1,000 ml @ 75 mls/hr [id number] IV 12/27/18 01:00 01/26/19 00:59 01/02/19 04:03 Tamsulosin HCl (Flomax) 0.4 mg BEDTIME ORAL 12/28/18 21:00 01/27/19 20:59 01/01/19 20:38 Temazepam (Restoril) 15 mg HSPRN PRN ORAL Insomnia 12/27/18 23:45 01/03/19 23:44 01/01/19 23:04 Khai Cordoba MD January 02, 2019 20:50
[2019-01-02] MEDS: Tamsulosin 0.4mg cap ORAL SCH (21:06)
[2019-01-03] VITALS: BP 150/66
[2019-01-03 04:00] VITALS: BP 133/71
[2019-01-03] MEDS: Morphine Sulfate 2mg/ml Inj(IV/IM USE ONLY) IVP PRN ×3 (04:58→18:37)
[2019-01-03 06:20] LABS: BASOPHILS % (AUTO) 1.3 % (0.0-2.0); HEMATOCRIT 30.2 % (42.0-52.0); HEMOGLOBIN 10.3 G/DL (14.2-18.0); LYMPHOCYTES % (AUTO) 24.2 % (20.0-45.0); MEAN CORPUSCULAR VOLUME 87 FL (80-99); MONOCYTES % (AUTO) 6.5 % (1.0-10.0); NEUTROPHILS % (AUTO) 68.1 % (45.0-75.0); PLATELET COUNT 147 K/UL (150-450); RED BLOOD COUNT 3.46 M/UL (4.70-6.10); RED CELL DISTRIBUTION WIDTH 11.9 % (11.6-14.8); WHITE BLOOD COUNT 7.3 K/UL (4.8-10.8)
[2019-01-03] MEDS: NovoLOG Insulin Flexpen SUBQ SCH ×4 (06:30→21:26)
[2019-01-03 06:48] LABS: ANION GAP 5 mmol/L (5-15); BLOOD UREA NITROGEN 11 mg/dL (7-18); CALCIUM 9.2 MG/DL (8.5-10.1); CARBON DIOXIDE 31 MMOL/L (21-32); CHLORIDE 109 MMOL/L (98-107); CREATININE 0.8 MG/DL (0.55-1.30); POTASSIUM 3.8 MMOL/L (3.5-5.1); SODIUM 144 MMOL/L (136-145)
--- NOTE | 2019-01-03 07:30 | NUR ---
HAND-OFF: Report given to DONELL Baker.
--- NOTE | 2019-01-03 07:42 | NUR ---
NURSE NOTES: Sitting up eating breakfast. Denies discomfort at this time. Call light is in reach.
[2019-01-03 08:00] VITALS: BP 124/67
[2019-01-03] MEDS: Heparin 5000 units/ml inj SUBQ SCH ×2 (09:00→21:10)
--- NOTE | 2019-01-03 09:34 | Urology Progress Note ---
Assessment/Plan Assessment/Plan: 1. History of left-sided hydronephrosis with dislodged nephrostomy tube. 2. Bladder cancer history. 3. Benign prostatic hypertrophy. 4. Lower urinary tract symptoms. 5. Neurogenic bladder. 6. Hematuria. 7. Pyuria. 8. Proteinuria. 9. POD # 3, cysto/fulg/stent monitor clinically keep hernandez indwelling for now hand irrigated, no clots voiding trial later med onc noted cont flomax and proscar s/p abx diflucan added Subjective Allergies: Coded Allergies: No Known Allergies (Unverified , 04/09/16) Subjective all noted, looks comfortable Objective Last 24 Hour Vital Signs Date Time Temp Pulse Resp B/P (MAP) Pulse Ox O2 Delivery O2 Flow Rate FiO2 01/03/19 08:32 62 124/67 01/03/19 08:00 97.8 62 17 124/67 (86) 99 01/03/19 04:00 97.5 61 17 133/71 (91) 99 01/03/19 00:00 97.3 60 19 150/66 (94) 99 01/02/19 21:00 Room Air Room Air 01/02/19 20:00 97.3 61 18 141/65 (90) 96 01/02/19 19:40 62 18 97 Room Air 21 01/02/19 15:56 98.0 60 20 133/67 (89) 96 01/02/19 15:24 97.6 01/02/19 12:00 97.6 61 18 134/67 (89) 99 Intake and Output 01/02/19 01/03/19 19:00 07:00 Intake Total 1860 ml 990 ml Output Total 1000 ml 2800 ml Balance 860 ml -1810 ml Intake Oral 960 ml 240 ml IV Total 900 ml 750 ml Output Urine Total 1000 ml 2800 ml # Bowel Movements 3 2 Microbiology Date/Time Source Procedure Growth Status 12/27/18 22:00 Nasal Nares MRSA Culture - Final NO METHICILLIN RESISTANT STAPH AUREUS... Complete 12/27/18 22:00 Urine,Clean Catch Urine Culture - Final Neha Tropicalis Complete 12/27/18 22:00 Rectum VRE Culture - Final NO VANCOMYCIN RESISTANT ENTEROCOCCUS ... Complete 12/27/18 22:00 Rectum - Final NO CARBAPENEM-RESISTANT ENTEROBACTERI... Complete Current Medications Medications (Trade) Dose Ordered Sig/Levi Route PRN Reason Start Time Stop Time Status Last Admin Dose Admin Acetaminophen (Tylenol) 650 mg Q4H PRN ORAL fever 12/27/18 23:45 01/26/19 23:44 01/01/19 23:04 Amlodipine Besylate (Norvasc) 2.5 mg DAILY ORAL 12/28/18 09:00 01/27/19 08:59 01/03/19 08:32 Dextrose (Dextrose 50%) 25 ml STAT PRN IV Hypoglycemia 12/28/18 11:45 01/27/19 11:44 Dextrose (Dextrose 50%) 50 ml STAT PRN IV Hypoglycemia 12/28/18 11:45 01/27/19 11:44 Finasteride (Proscar) 5 mg DAILY ORAL 12/28/18 09:00 01/27/19 08:59 01/03/19 08:32 Heparin Sodium (Porcine) (Heparin 5000 units/ml) 5,000 units EVERY 12 HOURS SUBQ 12/28/18 09:00 01/27/19 08:59 01/02/19 21:07 Insulin Aspart (NovoLOG) BEFORE MEALS AND HS SUBQ 12/28/18 06:30 01/27/19 06:29 01/02/19 21:32 Morphine Sulfate (Morphine Sulfate) 2 mg Q4H PRN IVP Moderate Pain (Pain Scale 4-6) 12/27/18 23:45 01/03/19 23:44 01/03/19 04:58 Nitroglycerin (Ntg) 0.4 mg Q5M PRN SL Prn Chest Pain 12/27/18 23:45 01/26/19 23:44 Ondansetron HCl (Zofran) 4 mg Q6H PRN IVP Nausea & Vomiting 12/27/18 23:45 01/26/19 23:44 Polyethylene Glycol (Miralax) 17 gm DAILYPRN PRN ORAL Constipation 12/27/18 23:45 01/26/19 23:44 Sodium Chloride 1,000 ml @ 75 mls/hr [id number] IV 12/27/18 01:00 01/26/19 00:59 01/02/19 21:06 Tamsulosin HCl (Flomax) 0.4 mg BEDTIME ORAL 12/28/18 21:00 01/27/19 20:59 01/02/19 21:06 Temazepam (Restoril) 15 mg HSPRN PRN ORAL Insomnia 12/27/18 23:45 01/03/19 23:44 01/01/19 23:04 Laboratory Tests 01/03/19 05:30: White Blood Count 7.3, Red Blood Count 3.46L, Hemoglobin 10.3L, Hematocrit 30.2L , Mean Corpuscular Volume 87, Mean Corpuscular Hemoglobin 29.8, Mean Corpuscular Hemoglobin Concent 34.1, Red Cell Distribution Width 11.9, Platelet Count 147L, Mean Platelet Volume 6.1L, Neutrophils (%) (Auto) 68.1, Lymphocytes (%) (Auto) 24.2, Monocytes (%) (Auto) 6.5, Eosinophils (%) (Auto) 0.0, Basophils (%) (Auto) 1.3, Sodium Level 144, Potassium Level 3.8, Chloride Level 109H, Carbon Dioxide Level 31, Anion Gap 5, Blood Urea Nitrogen 11, Creatinine 0.8, Estimat Glomerular Filtration Rate , Glucose Level 132H, Calcium Level 9.2 Height (Feet): 5 Height (Inches): 11.00 Weight (Pounds): 180 Objective exam stable, hernandez indwelling, urine blood-tinged/wes renal u/s and CT noted Macho Allen MD January 03, 2019 09:34
[2019-01-03 12:00] VITALS: BP 140/71
--- NOTE | 2019-01-03 12:59 | Hematology/Onc Progress Note ---
Assessment/Plan Assessment/Plan Assessment and Recs: # Bladder cancer extensive stage, PD1+ on biopsy from 12/2018 results, iintially with L hydronephrosis/L Hydroureter 2ry to extensive bladder tumor, that is extensive stage. 11/25 SP Cystoscopy, urethral calibration, transurethral resection of extensive bladder tumor with fulguration, and right retrograde pyelogram. Findings: The patient had what appeared to be a large bladder tumor that involved most of the left side of the bladder extending posteriorly and completely obliterating the left ureteral orifice. Seen by urology --> CT abd/p: Limited assessment of the GI tract, due to lack of enteric contrast administration. Moderate left hydronephrosis and hydroureter. Hydroureter extends to the bladder, where there is asymmetric posterolateral wall thickening raises concern for neoplasm. There is also generalized wall thickening, possibly on the basis of cystitis or chronic bladder outlet obstruction. No definite findings to suggest etiology of stated clinical history of GI bleed. Cholelithiasis. Basilar pulmonary atelectasis and equivocal slight interstitial congestion. L1 vertebral body compression fracture deformity, age indeterminate. --> appreciate urology recs, pulm recs --> 12/31: s/p stent placement --> urology and pcp followup # Anemia due to lower GI bleed --> appreciate gi recs, reviewed endoscopy report --> anemia panel has been reviewed before # Anemia due iron deficiency due to hemorrhoid bleed --> iv iron started, continue x 5 days --> appreciate gi recs # Hydronephrosis --> s/p stent placement # Chronic cerebrovascular accident (CVA) --> per neuro as needed # Diabetes mellitus II --> accuchecks qac and qhs --> insulin coverage as needed # Alzheimer's dementia # HTN (hypertension) --> stable The timing of this note does not necessarily reflect the time of the patient was seen. Greatly appreciate consultation! Subjective Constitutional: Denies: no symptoms, chills, fever, malaise, weakness, other HEENT: Denies: no symptoms, eye pain, blurred vision, tearing, double vision, ear pain, ear discharge, nose pain, nose congestion, throat pain, throat swelling, mouth pain, mouth swelling, other Cardiovascular: Denies: no symptoms, chest pain, edema, irregular heart rate, lightheadedness, palpitations, syncope, other Respiratory: Denies: no symptoms, cough, shortness of breath, SOB with excertion, SOB at rest, sputum, wheezing, other Gastrointestinal/Abdominal: Denies: no symptoms, abdomen distended, abdominal pain, black stools, tarry stools, blood in stool, constipated, diarrhea, difficulty swallowing, nausea, poor appetite, poor fluid intake, rectal bleeding , vomiting, other Genitourinary: Denies: no symptoms, burning, discharge, frequency, flank pain, hematuria, incontinence, pain, urgency, other 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: Denies: no symptoms, anxiety, depressed, emotional problems, headache, numbness, paresthesia, pre-existing deficit, seizure, tingling, tremors, weakness, other Allergies: Coded Allergies: No Known Allergies (Unverified , 04/09/16) Subjective 01/02: no events, no f/c, no night sweats noted, s/p cysto, s/p stent placement 01/03: sitting up, eating breakfast, no complaints, cbc stable Objective Objective Current Medications Medications (Trade) Dose Ordered Sig/Levi Route PRN Reason Start Time Stop Time Status Last Admin Dose Admin Acetaminophen (Tylenol) 650 mg Q4H PRN ORAL fever 12/27/18 23:45 01/26/19 23:44 01/01/19 23:04 Amlodipine Besylate (Norvasc) 2.5 mg DAILY ORAL 12/28/18 09:00 01/27/19 08:59 01/03/19 08:32 Dextrose (Dextrose 50%) 25 ml STAT PRN IV Hypoglycemia 12/28/18 11:45 01/27/19 11:44 Dextrose (Dextrose 50%) 50 ml STAT PRN IV Hypoglycemia 12/28/18 11:45 01/27/19 11:44 Finasteride (Proscar) 5 mg DAILY ORAL 12/28/18 09:00 01/27/19 08:59 01/03/19 08:32 Heparin Sodium (Porcine) (Heparin 5000 units/ml) 5,000 units EVERY 12 HOURS SUBQ 12/28/18 09:00 01/27/19 08:59 01/02/19 21:07 Insulin Aspart (NovoLOG) BEFORE MEALS AND HS SUBQ 12/28/18 06:30 01/27/19 06:29 01/03/19 12:05 Morphine Sulfate (Morphine Sulfate) 2 mg Q4H PRN IVP Moderate Pain (Pain Scale 4-6) 12/27/18 23:45 01/03/19 23:44 01/03/19 12:37 Nitroglycerin (Ntg) 0.4 mg Q5M PRN SL Prn Chest Pain 12/27/18 23:45 01/26/19 23:44 Ondansetron HCl (Zofran) 4 mg Q6H PRN IVP Nausea & Vomiting 12/27/18 23:45 01/26/19 23:44 Polyethylene Glycol (Miralax) 17 gm DAILYPRN PRN ORAL Constipation 12/27/18 23:45 01/26/19 23:44 Sodium Chloride 1,000 ml @ 75 mls/hr [id number] IV 12/27/18 01:00 01/26/19 00:59 01/03/19 12:15 Tamsulosin HCl (Flomax) 0.4 mg BEDTIME ORAL 12/28/18 21:00 01/27/19 20:59 01/02/19 21:06 Temazepam (Restoril) 15 mg HSPRN PRN ORAL Insomnia 12/27/18 23:45 01/03/19 23:44 01/01/19 23:04 Last 24 Hour Vital Signs Date Time Temp Pulse Resp B/P (MAP) Pulse Ox O2 Delivery O2 Flow Rate FiO2 01/03/19 09:00 Room Air Room Air 01/03/19 08:32 62 124/67 01/03/19 08:00 97.8 62 17 124/67 (86) 99 01/03/19 04:00 97.5 61 17 133/71 (91) 99 01/03/19 00:00 97.3 60 19 150/66 (94) 99 01/02/19 21:00 Room Air Room Air 01/02/19 20:00 97.3 61 18 141/65 (90) 96 01/02/19 19:40 62 18 97 Room Air 21 01/02/19 15:56 98.0 60 20 133/67 (89) 96 01/02/19 15:24 97.6 01/02/19 12:00 97.6 61 18 134/67 (89) 99 01/02/19 09:00 Room Air 01/02/19 08:37 74 125/62 01/02/19 08:00 97.0 56 18 125/62 (83) 97 01/02/19 08:00 74 18 96 Room Air 21 01/02/19 04:00 97.3 61 16 136/69 (91) 98 01/02/19 00:00 98.3 62 17 120/56 (77) 99 01/01/19 21:15 76 18 95 Room Air 21 01/01/19 21:00 Room Air 01/01/19 20:00 98.5 62 18 129/61 (83) 98 01/01/19 16:00 98.3 62 16 118/55 (76) 99 Intake and Output 01/02/19 01/03/19 19:00 07:00 Intake Total 1860 ml 990 ml Output Total 1000 ml 2800 ml Balance 860 ml -1810 ml Intake Oral 960 ml 240 ml IV Total 900 ml 750 ml Output Urine Total 1000 ml 2800 ml # Bowel Movements 3 2 Labs Test 01/01/19 05:05 01/02/19 05:00 01/03/19 05:30 White Blood Count 6.8 K/UL (4.8-10.8) 10.6 K/UL (4.8-10.8) 7.3 K/UL (4.8-10.8) Red Blood Count 3.67 M/UL (4.70-6.10) 3.31 M/UL (4.70-6.10) 3.46 M/UL (4.70-6.10) Hemoglobin 11.0 G/DL (14.2-18.0) 9.7 G/DL (14.2-18.0) 10.3 G/DL (14.2-18.0) Hematocrit 31.8 % (42.0-52.0) 28.4 % (42.0-52.0) 30.2 % (42.0-52.0) Mean Corpuscular Volume 87 FL (80-99) 86 FL (80-99) 87 FL (80-99) Mean Corpuscular Hemoglobin 29.9 PG (27.0-31.0) 29.2 PG (27.0-31.0) 29.8 PG (27.0-31.0) Mean Corpuscular Hemoglobin Concent 34.5 G/DL (32.0-36.0) 34.0 G/DL (32.0-36.0) 34.1 G/DL (32.0-36.0) Red Cell Distribution Width 11.2 % (11.6-14.8) 11.3 % (11.6-14.8) 11.9 % (11.6-14.8) Platelet Count 166 K/UL (150-450) 152 K/UL (150-450) 147 K/UL (150-450) Mean Platelet Volume 5.8 FL (6.5-10.1) 6.4 FL (6.5-10.1) 6.1 FL (6.5-10.1) Neutrophils (%) (Auto) % (45.0-75.0) 80.8 % (45.0-75.0) 68.1 % (45.0-75.0) Lymphocytes (%) (Auto) % (20.0-45.0) 13.1 % (20.0-45.0) 24.2 % (20.0-45.0) Monocytes (%) (Auto) % (1.0-10.0) 5.6 % (1.0-10.0) 6.5 % (1.0-10.0) Eosinophils (%) (Auto) % (0.0-3.0) 0.1 % (0.0-3.0) 0.0 % (0.0-3.0) Basophils (%) (Auto) % (0.0-2.0) 0.4 % (0.0-2.0) 1.3 % (0.0-2.0) Differential Total Cells Counted 100 Neutrophils % (Manual) 87 % (45-75) Lymphocytes % (Manual) 12 % (20-45) Monocytes % (Manual) 1 % (1-10) Eosinophils % (Manual) 0 % (0-3) Basophils % (Manual) 0 % (0-2) Band Neutrophils 0 % (0-8) Platelet Estimate Adequate Platelet Morphology Normal Hypochromasia 1+ Anisocytosis 1+ Sodium Level 140 MMOL/L (136-145) 144 MMOL/L (136-145) Potassium Level 4.9 MMOL/L (3.5-5.1) 3.8 MMOL/L (3.5-5.1) Chloride Level 106 MMOL/L (98-107) 109 MMOL/L (98-107) Carbon Dioxide Level 29 MMOL/L (21-32) 31 MMOL/L (21-32) Anion Gap 6 mmol/L (5-15) 5 mmol/L (5-15) Blood Urea Nitrogen 20 mg/dL (7-18) 11 mg/dL (7-18) Creatinine 1.0 MG/DL (0.55-1.30) 0.8 MG/DL (0.55-1.30) Estimat Glomerular Filtration Rate mL/min (>60) mL/min (>60) Glucose Level 219 MG/DL (74-106) 132 MG/DL (74-106) Calcium Level 9.6 MG/DL (8.5-10.1) 9.2 MG/DL (8.5-10.1) Height (Feet): 5 Height (Inches): 11.00 Weight (Pounds): 180 Objective Sp02 EP Interpretation: reviewed, normal General Appearance: well appearing, no apparent distress, alert Head: normocephalic, atraumatic Eyes: bilateral eye PERRL, bilateral eye EOMI ENT: hearing grossly normal, normal pharynx Neck: full range of motion, supple, no meningismus Respiratory: chest non-tender, lungs clear, normal breath sounds CV: regular rate, rhythm, no murmur GI: normal bowel sounds, non tender, no mass, no organomegaly, no bruit, non- distended Musculoskeletal: back normal, gait/station normal, normal range of motion, other - No active drainage from left flank Psychiatric: mood/affect normal Skin: warm/dry Pierce Mcguire MD January 03, 2019 12:59
--- NOTE | 2019-01-03 13:31 | Internal Med Progress Note ---
Subjective Date of Service: January 03, 2019 Physician Name Jean-Claude Peter Attending Physician Jaziel Lowe MD Current Medications Medications (Trade) Dose Ordered Sig/Levi Route PRN Reason Start Time Stop Time Status Last Admin Dose Admin Acetaminophen (Tylenol) 650 mg Q4H PRN ORAL fever 12/27/18 23:45 01/26/19 23:44 01/01/19 23:04 Amlodipine Besylate (Norvasc) 2.5 mg DAILY ORAL 12/28/18 09:00 01/27/19 08:59 01/03/19 08:32 Dextrose (Dextrose 50%) 25 ml STAT PRN IV Hypoglycemia 12/28/18 11:45 01/27/19 11:44 Dextrose (Dextrose 50%) 50 ml STAT PRN IV Hypoglycemia 12/28/18 11:45 01/27/19 11:44 Finasteride (Proscar) 5 mg DAILY ORAL 12/28/18 09:00 01/27/19 08:59 01/03/19 08:32 Heparin Sodium (Porcine) (Heparin 5000 units/ml) 5,000 units EVERY 12 HOURS SUBQ 12/28/18 09:00 01/27/19 08:59 01/02/19 21:07 Insulin Aspart (NovoLOG) BEFORE MEALS AND HS SUBQ 12/28/18 06:30 01/27/19 06:29 01/03/19 12:05 Morphine Sulfate (Morphine Sulfate) 2 mg Q4H PRN IVP Moderate Pain (Pain Scale 4-6) 12/27/18 23:45 01/03/19 23:44 01/03/19 12:37 Nitroglycerin (Ntg) 0.4 mg Q5M PRN SL Prn Chest Pain 12/27/18 23:45 01/26/19 23:44 Ondansetron HCl (Zofran) 4 mg Q6H PRN IVP Nausea & Vomiting 12/27/18 23:45 01/26/19 23:44 Polyethylene Glycol (Miralax) 17 gm DAILYPRN PRN ORAL Constipation 12/27/18 23:45 01/26/19 23:44 Sodium Chloride 1,000 ml @ 75 mls/hr [id number] IV 12/27/18 01:00 01/26/19 00:59 01/03/19 12:15 Tamsulosin HCl (Flomax) 0.4 mg BEDTIME ORAL 5/21/19 21:00 01/27/19 20:59 01/02/19 21:06 Temazepam (Restoril) 15 mg HSPRN PRN ORAL Insomnia 12/27/18 23:45 01/03/19 23:44 01/01/19 23:04 Allergies: Coded Allergies: No Known Allergies (Unverified , 04/09/16) ROS Limited/Unobtainable: Yes Subjective 83 YO M admitted with dislodged left nephrostomy tube. Now pyelonephritis. Cover for Int Med-Dr Lowe. S/P cystoscopy and left ureteral stent 12/31/18. Objective Last Vital Signs Date Time Temp Pulse Resp B/P (MAP) Pulse Ox O2 Delivery O2 Flow Rate FiO2 01/03/19 09:00 Room Air Room Air 01/03/19 08:32 62 124/67 01/03/19 08:00 97.8 17 99 01/02/19 19:40 21 12/31/18 18:18 3 Laboratory Tests Test 01/03/19 05:30 White Blood Count 7.3 K/UL (4.8-10.8) Red Blood Count 3.46 M/UL (4.70-6.10) L Hemoglobin 10.3 G/DL (14.2-18.0) L Hematocrit 30.2 % (42.0-52.0) L Mean Corpuscular Volume 87 FL (80-99) Mean Corpuscular Hemoglobin 29.8 PG (27.0-31.0) Mean Corpuscular Hemoglobin Concent 34.1 G/DL (32.0-36.0) Red Cell Distribution Width 11.9 % (11.6-14.8) Platelet Count 147 K/UL (150-450) L Mean Platelet Volume 6.1 FL (6.5-10.1) L Neutrophils (%) (Auto) 68.1 % (45.0-75.0) Lymphocytes (%) (Auto) 24.2 % (20.0-45.0) Monocytes (%) (Auto) 6.5 % (1.0-10.0) Eosinophils (%) (Auto) 0.0 % (0.0-3.0) Basophils (%) (Auto) 1.3 % (0.0-2.0) Sodium Level 144 MMOL/L (136-145) Potassium Level 3.8 MMOL/L (3.5-5.1) Chloride Level 109 MMOL/L (98-107) H Carbon Dioxide Level 31 MMOL/L (21-32) Anion Gap 5 mmol/L (5-15) Blood Urea Nitrogen 11 mg/dL (7-18) Creatinine 0.8 MG/DL (0.55-1.30) Estimat Glomerular Filtration Rate mL/min (>60) Glucose Level 132 MG/DL (74-106) H Calcium Level 9.2 MG/DL (8.5-10.1) Intake and Output 01/02/19 01/03/19 18:59 06:59 Intake Total 1860 ml 1065 ml Output Total 1000 ml 2800 ml Balance 860 ml -1735 ml Intake Oral 960 ml 240 ml IV Total 900 ml 825 ml Output Urine Total 1000 ml 2800 ml # Bowel Movements 3 2 Objective PHYSICAL EXAMINATION: GENERAL: The patient is a well-developed and well-nourished male, in no apparent distress. HEENT: Eyes, pupils are equal and responsive to light and accommodation. Extraocular movements are intact. NECK: Supple without lymphadenopathy. CHEST: Lungs are clear to auscultation bilaterally without wheezes or rales. CARDIOVASCULAR: Regular rhythm and rate. S1 and S2 are normal without murmurs, rubs, or gallops. ABDOMEN: Soft, nontender, and nondistended. Positive bowel sounds. No evidence of hepatosplenomegaly. Currently, no rebound or guarding noted. EXTREMITIES: Negative for clubbing, cyanosis, edema. RECTAL/GENITAL: Not performed. NEUROLOGIC: Cranial nerves II through XII are grossly intact without focal deficits. Assessment/Plan Assessment/Plan ASSESSMENT: This is an 83-year-old male. 1. Urinary tract infection=yves 2. Pyelonephritis. 3. Dislodged left nephrostomy tube. 4. Left hydronephrosis. 5. Bladder cancer. 6. Hypertension. 7. Diabetes type 2. 8. AV conduction defect. 9. Alzheimer's dementia. TREATMENT: 1. Dislodged left nephrostomy tube. CT abd/pelvis=left hydronephrosis. A Urology consultation has been obtained with Dr. Macho Allen. We will follow recommendations of Urology. S/P cystoscopy and left ureteral stent 12/31/18 2. Urinary tract infection/pyelonephritis. Yves. Continue fluconazole per Infectious Disease-Dr. Darby. 3. Hypertension. Continue Norvasc as above. 4. Diabetes type 2. NovoLog sliding scale has been instituted. 5. AV conduction defect. The patient is status post pacemaker. 6. Alzheimer's dementia. 7. Onc Consult=Jean-Claude Griffith MD January 03, 2019 13:31
--- NOTE | 2019-01-03 14:54 | Pulmonology Progress Note ---
Assessment/Plan Problems: (1) UTI (urinary tract infection) (2) HTN (hypertension) (3) Nephrostomy tube displaced (4) Bladder neoplasm (5) Alzheimer's dementia (6) Diabetes mellitus (7) Chronic cerebrovascular accident (CVA) Assessment/Plan doing better clear urine in Robertson catheter continue iv abx, on cefepime sliding scale diabetic diet Monitor BP dvt prophylaxis. symptomatic treatment dc planning Subjective ROS Limited/Unobtainable: No Constitutional: Reports: no symptoms HEENT: Repors: no symptoms Allergies: Coded Allergies: No Known Allergies (Unverified , 04/09/16) Objective Last 24 Hour Vital Signs Date Time Temp Pulse Resp B/P (MAP) Pulse Ox O2 Delivery O2 Flow Rate FiO2 01/03/19 12:00 97.8 61 18 140/71 (94) 98 01/03/19 09:00 Room Air Room Air 01/03/19 08:32 62 124/67 01/03/19 08:21 68 16 96 Room Air 21 01/03/19 08:00 97.8 62 17 124/67 (86) 99 01/03/19 04:00 97.5 61 17 133/71 (91) 99 01/03/19 00:00 97.3 60 19 150/66 (94) 99 01/02/19 21:00 Room Air Room Air 01/02/19 20:00 97.3 61 18 141/65 (90) 96 01/02/19 19:40 62 18 97 Room Air 21 01/02/19 15:56 98.0 60 20 133/67 (89) 96 01/02/19 15:24 97.6 Intake and Output 01/02/19 01/03/19 18:59 06:59 Intake Total 1860 ml 1065 ml Output Total 1000 ml 2800 ml Balance 860 ml -1735 ml Intake Oral 960 ml 240 ml IV Total 900 ml 825 ml Output Urine Total 1000 ml 2800 ml # Bowel Movements 3 2 General Appearance: WD/WN HEENT: normocephalic, atraumatic Respiratory/Chest: chest wall non-tender, lungs clear Cardiovascular: normal peripheral pulses, normal rate Abdomen: normal bowel sounds, no organomegaly Genitourinary: normal external genitalia Skin: no rash Laboratory Tests 01/03/19 05:30: White Blood Count 7.3, Red Blood Count 3.46L, Hemoglobin 10.3L, Hematocrit 30.2L , Mean Corpuscular Volume 87, Mean Corpuscular Hemoglobin 29.8, Mean Corpuscular Hemoglobin Concent 34.1, Red Cell Distribution Width 11.9, Platelet Count 147L, Mean Platelet Volume 6.1L, Neutrophils (%) (Auto) 68.1, Lymphocytes (%) (Auto) 24.2, Monocytes (%) (Auto) 6.5, Eosinophils (%) (Auto) 0.0, Basophils (%) (Auto) 1.3, Sodium Level 144, Potassium Level 3.8, Chloride Level 109H, Carbon Dioxide Level 31, Anion Gap 5, Blood Urea Nitrogen 11, Creatinine 0.8, Estimat Glomerular Filtration Rate , Glucose Level 132H, Calcium Level 9.2 Current Medications Medications (Trade) Dose Ordered Sig/Levi Route PRN Reason Start Time Stop Time Status Last Admin Dose Admin Acetaminophen (Tylenol) 650 mg Q4H PRN ORAL fever 12/27/18 23:45 01/26/19 23:44 01/01/19 23:04 Amlodipine Besylate (Norvasc) 2.5 mg DAILY ORAL 12/28/18 09:00 01/27/19 08:59 01/03/19 08:32 Dextrose (Dextrose 50%) 25 ml STAT PRN IV Hypoglycemia 12/28/18 11:45 01/27/19 11:44 Dextrose (Dextrose 50%) 50 ml STAT PRN IV Hypoglycemia 12/28/18 11:45 01/27/19 11:44 Finasteride (Proscar) 5 mg DAILY ORAL 12/28/18 09:00 01/27/19 08:59 01/03/19 08:32 Heparin Sodium (Porcine) (Heparin 5000 units/ml) 5,000 units EVERY 12 HOURS SUBQ 12/28/18 09:00 01/27/19 08:59 01/02/19 21:07 Insulin Aspart (NovoLOG) BEFORE MEALS AND HS SUBQ 12/28/18 06:30 01/27/19 06:29 01/03/19 12:05 Morphine Sulfate (Morphine Sulfate) 2 mg Q4H PRN IVP Moderate Pain (Pain Scale 4-6) 12/27/18 23:45 01/03/19 23:44 01/03/19 12:37 Nitroglycerin (Ntg) 0.4 mg Q5M PRN SL Prn Chest Pain 12/27/18 23:45 01/26/19 23:44 Ondansetron HCl (Zofran) 4 mg Q6H PRN IVP Nausea & Vomiting 12/27/18 23:45 01/26/19 23:44 Polyethylene Glycol (Miralax) 17 gm DAILYPRN PRN ORAL Constipation 12/27/18 23:45 01/26/19 23:44 Sodium Chloride 1,000 ml @ 75 mls/hr [id number] IV 12/27/18 01:00 01/26/19 00:59 01/03/19 12:15 Tamsulosin HCl (Flomax) 0.4 mg BEDTIME ORAL 12/28/18 21:00 01/27/19 20:59 01/02/19 21:06 Temazepam (Restoril) 15 mg HSPRN PRN ORAL Insomnia 12/27/18 23:45 01/03/19 23:44 01/01/19 23:04 Og Hinkle MD January 03, 2019 14:54
--- NOTE | 2019-01-03 14:54 | Cardiology Report ---
APPROVED REPORT EKG Measurement Heart [id number] Sequential AV paced rhythm
[2019-01-03 16:00] VITALS: BP 146/72
--- NOTE | 2019-01-03 18:02 | NUR ---
NURSE NOTES: Dr Allen phoned in regards to pt hernandez catheter leaking. F/C irrigated earlier in shift. Charge Nurse Aware. No bleeding in tubing. F/C emptying well
--- NOTE | 2019-01-03 18:17 | NUR ---
NURSE NOTES: Upon this witting Dr Allen has not returned my call
--- NOTE | 2019-01-03 18:30 | NUR ---
NURSE NOTES: Dr Allen returned paged stated that leaking is normal. urine is flowing well NNO
--- NOTE | 2019-01-03 19:30 | NUR ---
NURSE NOTES: Received report from DONELL Baker. Patient sitting in bed, alert, awake. Bed in low position, locked, side rails up x2, padded. Call light within reach. FC draining well. No distress noted.
[2019-01-03 20:00] VITALS: BP 135/61
--- NOTE | 2019-01-03 20:08 | NUR ---
HAND-OFF: Report given to Dione MARLEY.
--- NOTE | 2019-01-03 20:09 | NUR ---
NURSE NOTES: Late entry Dr Hinkle here earlier in shift made aware of low platelet gave instructions to hold if less than 100. Dr Hinkle informed that morning dose held until property underwriter heard from him. orders carried out
[2019-01-03] MEDS: Tamsulosin 0.4mg cap ORAL SCH (21:05)
[2019-01-04] VITALS: BP 133/63
[2019-01-04 04:00] VITALS: BP 155/71
[2019-01-04] MEDS: NovoLOG Insulin Flexpen SUBQ SCH ×2 (06:32→11:22)
--- NOTE | 2019-01-04 07:30 | NUR ---
HAND-OFF: Report given to DONELL Boothe.
--- NOTE | 2019-01-04 07:30 | NUR ---
NURSE NOTES:BEDSIDE ROUNDS DONE WITH KATHYA MARLEY.PATIENT AWAKE,A/OX2-3,ROOM AIR,BED LOCKED,IV SITE PATENT.[place] DRAINING YELLOW URINE,NO C/O PAIN.WILL CONTINUE CURRENT PLAN OF CARE.
--- NOTE | 2019-01-04 07:48 | Urology Progress Note ---
Assessment/Plan Assessment/Plan: 1. History of left-sided hydronephrosis with dislodged nephrostomy tube. 2. Bladder cancer history. 3. Benign prostatic hypertrophy. 4. Lower urinary tract symptoms. 5. Neurogenic bladder. 6. Hematuria. 7. Pyuria. 8. Proteinuria. 9. POD # 4, cysto/fulg/stent monitor clinically keep hernandez indwelling for now hand irrigated, no clots voiding trial later, prob tomorrow med onc noted cont flomax and proscar s/p abx diflucan added Subjective Allergies: Coded Allergies: No Known Allergies (Unverified , 04/09/16) Subjective all noted, looks comfortable, some hernandez leakage reported Objective Last 24 Hour Vital Signs Date Time Temp Pulse Resp B/P (MAP) Pulse Ox O2 Delivery O2 Flow Rate FiO2 01/04/19 04:00 97.6 60 18 155/71 (99) 98 01/04/19 00:00 97.6 60 18 133/63 (86) 100 01/03/19 21:00 Room Air Room Air 01/03/19 20:00 97.3 61 16 135/61 (85) 97 01/03/19 16:00 97.9 61 16 146/72 (96) 01/03/19 12:00 97.8 61 18 140/71 (94) 98 01/03/19 09:00 Room Air Room Air 01/03/19 08:32 62 124/67 01/03/19 08:21 68 16 96 Room Air 21 01/03/19 08:00 97.8 62 17 124/67 (86) 99 Intake and Output 01/03/19 01/04/19 19:00 07:00 Intake Total 2986 ml 1545 ml Output Total 2450 ml Balance 2986 ml -905 ml Intake Oral 2236 ml 720 ml IV Total 750 ml 825 ml Output Urine Total 2450 ml # Voids 2 # Bowel Movements 1 Height (Feet): 5 Height (Inches): 11.00 Weight (Pounds): 180 Objective exam stable, hernandez indwelling, urine clearing renal u/s and CT noted Macho Allen MD January 04, 2019 07:48
[2019-01-04 07:55] VITALS: BP 110/72
--- NOTE | 2019-01-04 08:00 | NUR ---
NURSE NOTES:SEEN BY DR. IVEY,NO ORDERS.
[2019-01-04 08:32] LABS: EOSINOPHILS % (AUTO) 0.3 % (0.0-3.0); HEMATOCRIT 32.3 % (42.0-52.0); HEMOGLOBIN 10.8 G/DL (14.2-18.0); LYMPHOCYTES % (AUTO) 21.9 % (20.0-45.0); MEAN CORPUSCULAR VOLUME 87 FL (80-99); NEUTROPHILS % (AUTO) 70.9 % (45.0-75.0); PLATELET COUNT 151 K/UL (150-450); RED BLOOD COUNT 3.71 M/UL (4.70-6.10); RED CELL DISTRIBUTION WIDTH 11.7 % (11.6-14.8); WHITE BLOOD COUNT 7.7 K/UL (4.8-10.8)
[2019-01-04] MEDS: Heparin 5000 units/ml inj SUBQ SCH (08:49)
[2019-01-04 09:03] LABS: ANION GAP 4 mmol/L (5-15); BLOOD UREA NITROGEN 10 mg/dL (7-18); CALCIUM 9.3 MG/DL (8.5-10.1); CARBON DIOXIDE 32 MMOL/L (21-32); CHLORIDE 105 MMOL/L (98-107); CREATININE 0.7 MG/DL (0.55-1.30); POTASSIUM 3.7 MMOL/L (3.5-5.1); SODIUM 141 MMOL/L (136-145)
--- NOTE | 2019-01-04 10:53 | NUR ---
RD ASSESSMENT & RECOMMENDATIONS SEE CARE ACTIVITY FOR COMPLETE ASSESSMENT DAILY ESTIMATED NEEDS: Needs based on DM 75kg adj 25-30 kcals/kg 4999-5833 total kcals 1-1.5 g protein/kg 75-113 g total protein 20-25 mL/kg 4105-3613 total fluid mLs NUTRITION DIAGNOSIS: * Increased kcal/prot intake needs R/T wound healing as evidenced by pt admitted w/ non-blanchable erythema @ BL heels and buttocks. * Swallowing and chewing difficulty R/T dysphagia and poor dentition as evidenced by pt on pureed moist texture, NTL. CURRENT DIET:CCHO MED, pureed w/ NTL PO DIET RECOMMENDATIONS: CCHO MED / texture per [employer]ING MACHINE [employer]ER ADDITIONAL RECOMMENDATIONS: 1) Calibrated bedscale wt for accurate CBW 2) [employer] evaluation for appropriate texture 3) Monitor for continued good PO intake 4) Wound healing: add MVI x 1, William 1pkt BID . . .
[2019-01-04 11:31] VITALS: BP 131/59
--- NOTE | 2019-01-04 12:08 | Pulmonology Progress Note ---
Assessment/Plan Problems: (1) UTI (urinary tract infection) (2) HTN (hypertension) (3) Nephrostomy tube displaced (4) Bladder neoplasm (5) Alzheimer's dementia (6) Diabetes mellitus (7) Chronic cerebrovascular accident (CVA) Assessment/Plan doing better clear urine in Robertson catheter continue iv abx, on cefepime sliding scale diabetic diet Monitor BP dvt prophylaxis. symptomatic treatment dc planning Subjective ROS Limited/Unobtainable: No Constitutional: Reports: no symptoms Respiratory: Reports: no symptoms Allergies: Coded Allergies: No Known Allergies (Unverified , 04/09/16) Objective Last 24 Hour Vital Signs Date Time Temp Pulse Resp B/P (MAP) Pulse Ox O2 Delivery O2 Flow Rate FiO2 01/04/19 11:31 97.6 60 20 131/59 (83) 97 01/04/19 08:11 70 110/72 01/04/19 07:55 98.7 70 19 110/72 (85) 94 01/04/19 07:30 Room Air Room Air 01/04/19 04:00 97.6 60 18 155/71 (99) 98 01/04/19 00:00 97.6 60 18 133/63 (86) 100 01/03/19 21:00 Room Air Room Air 01/03/19 20:00 97.3 61 16 135/61 (85) 97 01/03/19 16:00 97.9 61 16 146/72 (96) Intake and Output 01/03/19 01/04/19 19:00 07:00 Intake Total 2986 ml 1545 ml Output Total 2450 ml Balance 2986 ml -905 ml Intake Oral 2236 ml 720 ml IV Total 750 ml 825 ml Output Urine Total 2450 ml # Voids 2 # Bowel Movements 1 General Appearance: WD/WN HEENT: normocephalic, atraumatic Respiratory/Chest: chest wall non-tender, lungs clear Cardiovascular: normal peripheral pulses, regular rhythm Abdomen: soft, non tender Laboratory Tests 01/04/19 06:59: White Blood Count 7.7, Red Blood Count 3.71L, Hemoglobin 10.8L, Hematocrit 32.3L , Mean Corpuscular Volume 87, Mean Corpuscular Hemoglobin 29.0, Mean Corpuscular Hemoglobin Concent 33.3, Red Cell Distribution Width 11.7, Platelet Count 151, Mean Platelet Volume 6.1L, Neutrophils (%) (Auto) 70.9, Lymphocytes ( %) (Auto) 21.9, Monocytes (%) (Auto) 6.0, Eosinophils (%) (Auto) 0.3, Basophils (%) (Auto) 1.0, Sodium Level 141, Potassium Level 3.7, Chloride Level 105, Carbon Dioxide Level 32, Anion Gap 4L, Blood Urea Nitrogen 10, Creatinine 0.7, Estimat Glomerular Filtration Rate , Glucose Level 123H, Calcium Level 9.3 Current Medications Medications (Trade) Dose Ordered Sig/Levi Route PRN Reason Start Time Stop Time Status Last Admin Dose Admin Acetaminophen (Tylenol) 650 mg Q4H PRN ORAL fever 12/27/18 23:45 01/26/19 23:44 01/04/19 01:19 Amlodipine Besylate (Norvasc) 2.5 mg DAILY ORAL 12/28/18 09:00 01/27/19 08:59 01/04/19 08:11 Dextrose (Dextrose 50%) 25 ml STAT PRN IV Hypoglycemia 12/28/18 11:45 01/27/19 11:44 Dextrose (Dextrose 50%) 50 ml STAT PRN IV Hypoglycemia 12/28/18 11:45 01/27/19 11:44 Finasteride (Proscar) 5 mg DAILY ORAL 12/28/18 09:00 01/27/19 08:59 01/04/19 08:11 Heparin Sodium (Porcine) (Heparin 5000 units/ml) 5,000 units EVERY 12 HOURS SUBQ 01/03/19 21:00 01/27/19 08:59 01/04/19 08:49 Insulin Aspart (NovoLOG) BEFORE MEALS AND HS SUBQ 12/28/18 06:30 01/27/19 06:29 01/04/19 11:22 Nitroglycerin (Ntg) 0.4 mg Q5M PRN SL Prn Chest Pain 12/27/18 23:45 01/26/19 23:44 Ondansetron HCl (Zofran) 4 mg Q6H PRN IVP Nausea & Vomiting 12/27/18 23:45 01/26/19 23:44 Polyethylene Glycol (Miralax) 17 gm DAILYPRN PRN ORAL Constipation 12/27/18 23:45 01/26/19 23:44 Sodium Chloride 1,000 ml @ 75 mls/hr [id number] IV 12/27/18 01:00 01/26/19 00:59 01/04/19 02:45 Tamsulosin HCl (Flomax) 0.4 mg BEDTIME ORAL 12/28/18 21:00 01/27/19 20:59 01/03/19 21:05 Og Hinkle MD January 04, 2019 12:08
--- NOTE | 2019-01-04 12:58 | Infectious Diseases Prog Note ---
Assessment/Plan Assessment/Plan Assessment: Probable UTI, SP -u/a wbc tnct, nit, leuk +3; ucx 25-50 yeast (prelim) Afebrile Leukocytosis, SP Dislodged L Nephrostomy Tube -CT abd/p: Persistent moderate left hydronephrosis. Currently there is a tiny 1 mm stone on the bladder side of the UVJ. Not certain if this is the reason for the hydronephrosis given similar appearance previously without a stone. Marked thickening of the bladder wall may be related. Underlying mass or ureterocele not excluded. Correlation with cystoscopy recommended. Mild right hydronephrosis. No obstructing stone identified. Cholelithiasis.Moderate stool retention in the colon.Multiple additional incidental findings as described above. -renal US: Bilateral hydronephrosis. hx of UTI bladder CA c/w hydronephrosis s/p nephrostomy - -11/25 SP Cystoscopy, urethral calibration, transurethral resection of extensive bladder tumor with fulguration, and right retrograde pyelogram. -Findings: The patient had what appeared to be a large bladder tumor that involved most of the left side of the bladder extending posteriorly and completely obliterating the left ureteral orifice. I was unable to place a stent on the left side. 01/01 SP Cystoscopy Recente hematochezia 2ry to hemorroids Dm2 Dementia HTN BPH urinary incontinence AV dissociation w/ conduction s/p PPM metabolic encephalopathy UTI seizure disorders CVA NH resident Plan: -Continue to monitor off abx 01/01 Sp PO fluconazole # 3- will treat funguria 12/31 Sp Cefepime #5/5 for presumed UTI -12/28 SP IV Vancomycin #2 -Monitor CBC/CMP, temperatures -uro f/u -aspiration precautions Subjective Allergies: Coded Allergies: No Known Allergies (Unverified , 04/09/16) Subjective afebrile no leukocytosis Objective Vital Signs Last 24 Hour Vital Signs Date Time Temp Pulse Resp B/P (MAP) Pulse Ox O2 Delivery O2 Flow Rate FiO2 01/04/19 11:31 97.6 60 20 131/59 (83) 97 01/04/19 08:11 70 110/72 01/04/19 07:55 98.7 70 19 110/72 (85) 94 01/04/19 07:30 Room Air Room Air 01/04/19 04:00 97.6 60 18 155/71 (99) 98 01/04/19 00:00 97.6 60 18 133/63 (86) 100 01/03/19 21:00 Room Air Room Air 01/03/19 20:00 97.3 61 16 135/61 (85) 97 01/03/19 16:00 97.9 61 16 146/72 (96) Height (Feet): 5 Height (Inches): 11.00 Weight (Pounds): 180 Objective General Appearance: well appearing, no apparent distress, alert Head: normocephalic, atraumatic Eyes: bilateral eye PERRL, bilateral eye EOMI ENT: hearing grossly normal, normal pharynx Neck: full range of motion, supple, no meningismus Respiratory: chest non-tender, lungs clear, normal breath sounds Cardiovascular #1: regular rate, rhythm, no murmur Gastrointestinal: normal bowel sounds, non tender, no mass, no organomegaly, no bruit, non-distended Musculoskeletal: back normal, gait/station normal, normal range of motion, other - No active drainage from left flank Psychiatric: mood/affect normal Skin: warm/dry Laboratory Tests Test 01/04/19 06:59 White Blood Count 7.7 K/UL (4.8-10.8) Red Blood Count 3.71 M/UL (4.70-6.10) L Hemoglobin 10.8 G/DL (14.2-18.0) L Hematocrit 32.3 % (42.0-52.0) L Mean Corpuscular Volume 87 FL (80-99) Mean Corpuscular Hemoglobin 29.0 PG (27.0-31.0) Mean Corpuscular Hemoglobin Concent 33.3 G/DL (32.0-36.0) Red Cell Distribution Width 11.7 % (11.6-14.8) Platelet Count 151 K/UL (150-450) Mean Platelet Volume 6.1 FL (6.5-10.1) L Neutrophils (%) (Auto) 70.9 % (45.0-75.0) Lymphocytes (%) (Auto) 21.9 % (20.0-45.0) Monocytes (%) (Auto) 6.0 % (1.0-10.0) Eosinophils (%) (Auto) 0.3 % (0.0-3.0) Basophils (%) (Auto) 1.0 % (0.0-2.0) Sodium Level 141 MMOL/L (136-145) Potassium Level 3.7 MMOL/L (3.5-5.1) Chloride Level 105 MMOL/L (98-107) Carbon Dioxide Level 32 MMOL/L (21-32) Anion Gap 4 mmol/L (5-15) L Blood Urea Nitrogen 10 mg/dL (7-18) Creatinine 0.7 MG/DL (0.55-1.30) Estimat Glomerular Filtration Rate mL/min (>60) Glucose Level 123 MG/DL (74-106) H Calcium Level 9.3 MG/DL (8.5-10.1) Current Medications Medications (Trade) Dose Ordered Sig/Levi Route PRN Reason Start Time Stop Time Status Last Admin Dose Admin Acetaminophen (Tylenol) 650 mg Q4H PRN ORAL fever 12/27/18 23:45 01/26/19 23:44 01/04/19 01:19 Amlodipine Besylate (Norvasc) 2.5 mg DAILY ORAL 12/28/18 09:00 01/27/19 08:59 01/04/19 08:11 Dextrose (Dextrose 50%) 25 ml STAT PRN IV Hypoglycemia 12/28/18 11:45 01/27/19 11:44 Dextrose (Dextrose 50%) 50 ml STAT PRN IV Hypoglycemia 12/28/18 11:45 01/27/19 11:44 Finasteride (Proscar) 5 mg DAILY ORAL 12/28/18 09:00 01/27/19 08:59 01/04/19 08:11 Heparin Sodium (Porcine) (Heparin 5000 units/ml) 5,000 units EVERY 12 HOURS SUBQ 01/03/19 21:00 01/27/19 08:59 01/04/19 08:49 Insulin Aspart (NovoLOG) BEFORE MEALS AND HS SUBQ 12/28/18 06:30 01/27/19 06:29 01/04/19 11:22 Nitroglycerin (Ntg) 0.4 mg Q5M PRN SL Prn Chest Pain 12/27/18 23:45 01/26/19 23:44 Ondansetron HCl (Zofran) 4 mg Q6H PRN IVP Nausea & Vomiting 12/27/18 23:45 01/26/19 23:44 Polyethylene Glycol (Miralax) 17 gm DAILYPRN PRN ORAL Constipation 12/27/18 23:45 01/26/19 23:44 Sodium Chloride 1,000 ml @ 75 mls/hr [id number] IV 12/27/18 01:00 01/26/19 00:59 01/04/19 02:45 Tamsulosin HCl (Flomax) 0.4 mg BEDTIME ORAL 12/28/18 21:00 01/27/19 20:59 01/03/19 21:05 Tawny Darby M.D. January 04, 2019 12:58
--- NOTE | 2019-01-04 13:13 | NUR ---
NURSE NOTES:spoke with dr. jackson re:d/c order fr. dr. brian.per conversation patient is cleared for d/c today fr his standpoint to [facility] rehab with david alexander
--- NOTE | 2019-01-04 13:19 | Hematology/Onc Progress Note ---
Assessment/Plan Assessment/Plan Assessment and Recs: # Bladder cancer extensive stage, PD1+ on biopsy from 12/2018 results, iintially with L hydronephrosis/L Hydroureter 2ry to extensive bladder tumor, that is extensive stage. 11/25 SP Cystoscopy, urethral calibration, transurethral resection of extensive bladder tumor with fulguration, and right retrograde pyelogram. Findings: The patient had what appeared to be a large bladder tumor that involved most of the left side of the bladder extending posteriorly and completely obliterating the left ureteral orifice. Seen by urology --> CT abd/p: Limited assessment of the GI tract, due to lack of enteric contrast administration. Moderate left hydronephrosis and hydroureter. Hydroureter extends to the bladder, where there is asymmetric posterolateral wall thickening raises concern for neoplasm. There is also generalized wall thickening, possibly on the basis of cystitis or chronic bladder outlet obstruction. No definite findings to suggest etiology of stated clinical history of GI bleed. Cholelithiasis. Basilar pulmonary atelectasis and equivocal slight interstitial congestion. L1 vertebral body compression fracture deformity, age indeterminate. --> appreciate urology recs, pulm recs --> 12/31: s/p stent placement --> urology and pcp followup # Anemia due to lower GI bleed --> appreciate gi recs, reviewed endoscopy report --> anemia panel has been reviewed before --> transfuse if hgb <7 # Anemia due iron deficiency due to hemorrhoid bleed --> iv iron started, continue x 5 days --> appreciate gi recs # Hydronephrosis --> s/p stent placement # Chronic cerebrovascular accident (CVA) --> per neuro as needed # Diabetes mellitus II --> accuchecks qac and qhs --> insulin coverage as needed # Alzheimer's dementia # HTN (hypertension) --> stable The timing of this note does not necessarily reflect the time of the patient was seen. Greatly appreciate consultation! Subjective Constitutional: Denies: no symptoms, chills, fever, malaise, weakness, other HEENT: Denies: no symptoms, eye pain, blurred vision, tearing, double vision, ear pain, ear discharge, nose pain, nose congestion, throat pain, throat swelling, mouth pain, mouth swelling, other Cardiovascular: Denies: no symptoms, chest pain, edema, irregular heart rate, lightheadedness, palpitations, syncope, other Gastrointestinal/Abdominal: Denies: no symptoms, abdomen distended, abdominal pain, black stools, tarry stools, blood in stool, constipated, diarrhea, difficulty swallowing, nausea, poor appetite, poor fluid intake, rectal bleeding , vomiting, other Genitourinary: Denies: no symptoms, burning, discharge, frequency, flank pain, hematuria, incontinence, pain, urgency, other 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: Denies: no symptoms, anxiety, depressed, emotional problems, headache, numbness, paresthesia, pre-existing deficit, seizure, tingling, tremors, weakness, other Endocrine: Denies: no symptoms, excessive sweating, flushing, intolerance to cold, intolerance to heat, increased hunger, increased thirst, increased urine, unexplained weight gain, unexplained weight loss, other Allergies: Coded Allergies: No Known Allergies (Unverified , 04/09/16) Subjective 01/02: no events, no f/c, no night sweats noted, s/p cysto, s/p stent placement 01/03: sitting up, eating breakfast, no complaints, cbc stable 01/04: off abx, doing better, dc planning seen by ID and pulm/cc Objective Objective Current Medications Medications (Trade) Dose Ordered Sig/Levi Route PRN Reason Start Time Stop Time Status Last Admin Dose Admin Acetaminophen (Tylenol) 650 mg Q4H PRN ORAL fever 12/27/18 23:45 01/26/19 23:44 01/04/19 01:19 Amlodipine Besylate (Norvasc) 2.5 mg DAILY ORAL 12/28/18 09:00 01/27/19 08:59 01/04/19 08:11 Dextrose (Dextrose 50%) 25 ml STAT PRN IV Hypoglycemia 12/28/18 11:45 01/27/19 11:44 Dextrose (Dextrose 50%) 50 ml STAT PRN IV Hypoglycemia 12/28/18 11:45 01/27/19 11:44 Finasteride (Proscar) 5 mg DAILY ORAL 12/28/18 09:00 01/27/19 08:59 01/04/19 08:11 Heparin Sodium (Porcine) (Heparin 5000 units/ml) 5,000 units EVERY 12 HOURS SUBQ 01/03/19 21:00 01/27/19 08:59 01/04/19 08:49 Insulin Aspart (NovoLOG) BEFORE MEALS AND HS SUBQ 12/28/18 06:30 01/27/19 06:29 01/04/19 11:22 Nitroglycerin (Ntg) 0.4 mg Q5M PRN SL Prn Chest Pain 12/27/18 23:45 01/26/19 23:44 Ondansetron HCl (Zofran) 4 mg Q6H PRN IVP Nausea & Vomiting 12/27/18 23:45 01/26/19 23:44 Polyethylene Glycol (Miralax) 17 gm DAILYPRN PRN ORAL Constipation 12/27/18 23:45 01/26/19 23:44 Sodium Chloride 1,000 ml @ 75 mls/hr [id number] IV 12/27/18 01:00 01/26/19 00:59 01/04/19 02:45 Tamsulosin HCl (Flomax) 0.4 mg BEDTIME ORAL 12/28/18 21:00 01/27/19 20:59 01/03/19 21:05 Last 24 Hour Vital Signs Date Time Temp Pulse Resp B/P (MAP) Pulse Ox O2 Delivery O2 Flow Rate FiO2 01/04/19 11:31 97.6 60 20 131/59 (83) 97 01/04/19 08:11 70 110/72 01/04/19 07:55 98.7 70 19 110/72 (85) 94 01/04/19 07:30 Room Air Room Air 01/04/19 04:00 97.6 60 18 155/71 (99) 98 01/04/19 00:00 97.6 60 18 133/63 (86) 100 01/03/19 21:00 Room Air Room Air 01/03/19 20:00 97.3 61 16 135/61 (85) 97 01/03/19 16:00 97.9 61 16 146/72 (96) 01/03/19 12:00 97.8 61 18 140/71 (94) 98 01/03/19 09:00 Room Air Room Air 01/03/19 08:32 62 124/67 01/03/19 08:21 68 16 96 Room Air 21 01/03/19 08:00 97.8 62 17 124/67 (86) 99 01/03/19 04:00 97.5 61 17 133/71 (91) 99 01/03/19 00:00 97.3 60 19 150/66 (94) 99 01/02/19 21:00 Room Air Room Air 01/02/19 20:00 97.3 61 18 141/65 (90) 96 01/02/19 19:40 62 18 97 Room Air 21 01/02/19 15:56 98.0 60 20 133/67 (89) 96 01/02/19 15:24 97.6 Intake and Output 01/03/19 01/04/19 19:00 07:00 Intake Total 2986 ml 1545 ml Output Total 2450 ml Balance 2986 ml -905 ml Intake Oral 2236 ml 720 ml IV Total 750 ml 825 ml Output Urine Total 2450 ml # Voids 2 # Bowel Movements 1 Labs Test 01/02/19 05:00 01/03/19 05:30 01/04/19 06:59 White Blood Count 10.6 K/UL (4.8-10.8) 7.3 K/UL (4.8-10.8) 7.7 K/UL (4.8-10.8) Red Blood Count 3.31 M/UL (4.70-6.10) 3.46 M/UL (4.70-6.10) 3.71 M/UL (4.70-6.10) Hemoglobin 9.7 G/DL (14.2-18.0) 10.3 G/DL (14.2-18.0) 10.8 G/DL (14.2-18.0) Hematocrit 28.4 % (42.0-52.0) 30.2 % (42.0-52.0) 32.3 % (42.0-52.0) Mean Corpuscular Volume 86 FL (80-99) 87 FL (80-99) 87 FL (80-99) Mean Corpuscular Hemoglobin 29.2 PG (27.0-31.0) 29.8 PG (27.0-31.0) 29.0 PG (27.0-31.0) Mean Corpuscular Hemoglobin Concent 34.0 G/DL (32.0-36.0) 34.1 G/DL (32.0-36.0) 33.3 G/DL (32.0-36.0) Red Cell Distribution Width 11.3 % (11.6-14.8) 11.9 % (11.6-14.8) 11.7 % (11.6-14.8) Platelet Count 152 K/UL (150-450) 147 K/UL (150-450) 151 K/UL (150-450) Mean Platelet Volume 6.4 FL (6.5-10.1) 6.1 FL (6.5-10.1) 6.1 FL (6.5-10.1) Neutrophils (%) (Auto) 80.8 % (45.0-75.0) 68.1 % (45.0-75.0) 70.9 % (45.0-75.0) Lymphocytes (%) (Auto) 13.1 % (20.0-45.0) 24.2 % (20.0-45.0) 21.9 % (20.0-45.0) Monocytes (%) (Auto) 5.6 % (1.0-10.0) 6.5 % (1.0-10.0) 6.0 % (1.0-10.0) Eosinophils (%) (Auto) 0.1 % (0.0-3.0) 0.0 % (0.0-3.0) 0.3 % (0.0-3.0) Basophils (%) (Auto) 0.4 % (0.0-2.0) 1.3 % (0.0-2.0) 1.0 % (0.0-2.0) Sodium Level 144 MMOL/L (136-145) 141 MMOL/L (136-145) Potassium Level 3.8 MMOL/L (3.5-5.1) 3.7 MMOL/L (3.5-5.1) Chloride Level 109 MMOL/L (98-107) 105 MMOL/L (98-107) Carbon Dioxide Level 31 MMOL/L (21-32) 32 MMOL/L (21-32) Anion Gap 5 mmol/L (5-15) 4 mmol/L (5-15) Blood Urea Nitrogen 11 mg/dL (7-18) 10 mg/dL (7-18) Creatinine 0.8 MG/DL (0.55-1.30) 0.7 MG/DL (0.55-1.30) Estimat Glomerular Filtration Rate mL/min (>60) mL/min (>60) Glucose Level 132 MG/DL (74-106) 123 MG/DL (74-106) Calcium Level 9.2 MG/DL (8.5-10.1) 9.3 MG/DL (8.5-10.1) Height (Feet): 5 Height (Inches): 11.00 Weight (Pounds): 180 Objective Sp02 EP Interpretation: reviewed, normal General Appearance: well appearing, no apparent distress, alert Head: normocephalic, atraumatic Eyes: bilateral eye PERRL, bilateral eye EOMI ENT: hearing grossly normal, normal pharynx Neck: full range of motion, supple, no meningismus Respiratory: chest non-tender, lungs clear, normal breath sounds CV: regular rate, rhythm, no murmur GI: normal bowel sounds, non tender, no mass, no organomegaly, no bruit, non- distended Musculoskeletal: back normal, gait/station normal, normal range of motion, other - No active drainage from left flank Psychiatric: mood/affect normal Skin: warm/dry Pierce Mcguire MD January 04, 2019 13:19
--- NOTE | 2019-01-04 13:22 | Diagnostic Imaging Report ---
Indication: Intraoperative imaging COMPARISON: None FINDINGS: Multiple fluoroscopic images were obtained intraoperatively. Bilateral retrograde contrast injection demonstrating the ureters and portions of the collecting system. There is dilatation noted on the left. Subsequent the double-J ureteral stent placement on the left noted. Total fluoroscopic time 91 seconds. IMPRESSION: Intraoperative imaging as described above
--- NOTE | 2019-01-04 13:40 | NUR ---
NURSE NOTES:report given to kavon weiner.[facility] hernandez cath tomorrow morning by rn.message left to kimberlyn peterson ([facility])thru phonere:transfer today to [facility].
--- NOTE | 2019-01-04 16:05 | NUR ---
NURSE NOTES:FAROOQ MARLEY(CHARGE NURSE)GAVE REPORT TO APRIL SALAZAR([facility])PATIENT STABLE ON DISCHARGE.
--- NOTE | 2019-01-04 18:50 | NUR ---
NURSE NOTES:dr. jackson called in and asked if the patient was d/c to [facility].stated also to call the facility to remove the hernandez cath tomorrow at 7 am.and to deflate the baloon completely.[facility] has 50 ccns.spoke to karen MARLEY.[facility] and informed the message of dr. jackson.
--- NOTE | 2019-01-05 10:23 | Discharge Summary ---
Discharge Summary Discharge Summary _ DATE OF ADMISSION: 12/27/2018 DATE OF DISCHARGE: 01/04/2019 DISCHARGED BY: Dr. Lowe REASON FOR ADMISSION: 83 years old male, resident of [facility], with past medical history of diabetes mellitus, pacemaker, seizure disorder, history of bladder cancer, BPH, anemia, was sent for evaluation due to dislodged left nephrostomy tube. Patient had recent admission at the hospital and at that time had a nephrostomy tube placement. However nephrostomy tube was dislodged , and patient was transferred to ED for further evaluation and management. Patient by himself denied any symptoms. No fever, no chills, no nausea, no vomiting. Upon evaluation vital signs were stable. Laboratory work-up revealed leukocytosis, stable hemoglobin and hematocrit. BUN 20 9, creatinine 1.1. Glucose 207 Urinalysis revealed moderate bacteria, pyuria, +3 leukocyte esterase and +4 blood. Patient started on empiric antibiotic for UTI and subsequently admitted for further management. CONSULTANTS: pulmonary Dr. Hinkle ID specialist Dr. Cordoba centerless grinder/oncologist Dr. Mcguire urology [facility] COURSE: Patient admitted to medical surgical floor. Patient was continued on IV fluids and empiric antibiotics. Urology consult was requested. Per urologist , the patient had known bladder cancer with obstruction of the left ureteral orifice and left hydronephrosis. He had an nephrostomy tube in place , which had been dislodged. However , patient was relatively comfortable with stable renal function . Subsequently patient undergone renal ultrasound to evaluate the degree of hydronephrosis. Renal ultrasound revealed bilateral hydronephrosis. CT of the abdomen pelvis revealed persistent moderate left hydronephrosis . There was a tiny 1 mm stone on the bladder side of the UVJ. At that time it was not clear if that was the reason for hydronephrosis, given similar appearance previously without a stone. ' Marked thickening of the bladder wall. Underlying mass or ureterocele was not excluded. Correlation cystoscopy was recommended. Mild right hydronephrosis , no obstructing stones. Cholelithiasis. Moderate stool retention in the colon. Cystoscopy was done on 12/[address] was able to place a stent in a retrograde fashion. Excellent hemostasis was obtained. Robertson catheter was placed. Patient started on Flomax and Proscar and continued with antibiotics. Per urologist, at some point patient may have to have interventional radiology placement of nephrostomy tube. Urologist recommended to keep Robertson catheter in. Patient was manually irrigated,no clots. Voiding trial was recommended soon, Patient was continued on Flomax and Proscar. Patient completed course of antibiotic , Diflucan added for Neha UTI. Oncologist followed. Patient with extensive stage of bladder cancer. PD1 plus on biopsy from 2018 results . Hemoglobin and hematocrit were closely monitored with goal to keep hemoglobin above 7. Prior to discharge hemoglobin 10.8 hematocrit 32.3. Leukocytosis resolved, no fevers. DVT prophylaxis provided. Blood sugar was managed with sliding scale of insulin. Blood pressure was managed with calcium channel amarjit. Supportive care provided. Pain management addressed as needed. Bowel regimen instituted. Patient clinically stabilized and was ready for transfer [facility] to [facility] for continuation of care. Renal parameters and electrolytes were closely monitored. Renal parameters remained stable. Creatinine remained stable throughout the stay in the hospital . BUN from 28 down to 10, electrolytes all replaced as needed. Supplemental oxygen was on board as needed to keep pulse oximetry above 92%. Pulse oximetry was stable on room air Patient clinically stabilized and was ready for transfer to the [facility] for continuation of care. FINAL DIAGNOSES: Left nephrostomy tube dislodgment UTI with Neha/pyelonephritis Bladder cancer, extensive stage Left-sided hydronephrosis with mild to moderate right-sided hydronephrosis status post cystoscopy, urethral calibration, bilateral retrograde pyelograms, dilation of left ureter and placement of left ureteral stent, transurethral resection and biopsies of extensive bladder tumors, and extensive fulguration of bladder mucosa. BPH Neurogenic bladder History of CVA Alzheimer's dementia AV conduction defect Hypertension Diabetes mellitus DISCHARGE MEDICATIONS: See Medication Reconciliation list. DISCHARGE INSTRUCTIONS: Patient was discharged to the [facility]. Follow up with medical doctor at the facility. I have been assigned to dictate discharge summary for this account. I was not involved in the patient's management. Ellen Mei NP January 05, 2019 10:23
== END 2019-01-04 16:23 | DRG 659 ==
LOC: EDBD 21:52 → EMR 22:08 → 3E 23:10 → EDBEDREQ 23:32
PROC: 0T5B8ZZ Destruction of Bladder, Via Natural or Artificial Opening Endoscopic (ICD-10-PCS; principal; 2018-12-31 15:00)
PROC: 0TBB8ZZ Excision of Bladder, Via Natural or Artificial Opening Endoscopic (ICD-10-PCS; principal; 2018-12-31 15:00)
PROC: 0T778DZ Dilation of Left Ureter with Intraluminal Device, Via Natural or Artificial Opening Endoscopic (ICD-10-PCS; principal; 2018-12-31 15:00)
PROC: BT14ZZZ Fluoroscopy of Kidneys, Ureters and Bladder (ICD-10-PCS; principal; 2018-12-31 15:00)
DX: T83.022A Displacement of nephrostomy catheter, initial encounter (principal); N17.0 Acute kidney failure with tubular necrosis; G93.41 Metabolic encephalopathy; N13.6 Pyonephrosis; B37.49 Other urogenital candidiasis; N13.30 Unspecified hydronephrosis; K92.2 Gastrointestinal hemorrhage, unspecified; C67.2 Malignant neoplasm of lateral wall of bladder; C67.0 Malignant neoplasm of trigone of bladder; C67.1 Malignant neoplasm of dome of bladder; C67.6 Malignant neoplasm of ureteric orifice; N40.1 Benign prostatic hyperplasia with lower urinary tract symptoms; D50.0 Iron deficiency anemia secondary to blood loss (chronic); N39.498 Other specified urinary incontinence; E11.9 Type 2 diabetes mellitus without complications; G30.9 Alzheimer's disease, unspecified; F02.80 Dementia in other diseases classified elsewhere, unspecified severity, without behavioral disturbance, psychotic disturbance, mood disturbance, and anxiety; Z95.0 Presence of cardiac pacemaker; Z86.73 Personal history of transient ischemic attack (TIA), and cerebral infarction without residual deficits; E05.90 Thyrotoxicosis, unspecified without thyrotoxic crisis or storm; G40.909 Epilepsy, unspecified, not intractable, without status epilepticus; N31.9 Neuromuscular dysfunction of bladder, unspecified; R31.9 Hematuria, unspecified; R80.9 Proteinuria, unspecified; K64.9 Unspecified hemorrhoids
CPT/HCPCS: 36415; 74178; 74420; 76000; 76770; 80048; 80053; 81001; 82962; 85007; 85025; 85610; 85730; 87081; 87086; 93005; 94003; 94150; 94664; 96365; 96366; 96368; 99285; J1815; J2250; J2405; J3490

== ENCOUNTER 2019-03-03 06:42 | Inpatient (IN) | payer MEDICARE ==
[~2019-03-03] VITALS: Ht 170.2 cm; Wt 74.8 kg
[~2019-03-03 06:42] MED LIST changes: +FERROUS SULFAT325 MG ORAL; +VITAMIN C500 M1 ORAL
[2019-03-03 06:44] VITALS: BP 101/49
--- NOTE | 2019-03-03 06:44 | NUR ---
ED Nurse Note: Arrived from [facility] via amulance for abnormal labs. (Elevated K). patient is alert x4, Bp 98/52, pr 84, rr 20, denies any pain at this time. noted wound to sacral area. has pacemaker. Bed is in lowest position. Safety measures provided. will continue to monitor Addendum: 03/03/19 at 0708 by ADELE ED Nurse Note: Arrived from [facility] via amulance for abnormal labs. (Elevated K). patient is alert x4, Bp 98/52, pr 84, rr 20, denies any pain at this time. has pacemaker. Bed is in lowest position. Safety measures provided. will continue to monitor
[2019-03-03] MEDS ORDERED: MULTI-VITAMIN1 EACH PO (06:50)
[2019-03-03] MEDS ORDERED: PROSTAT PO (06:50)
--- NOTE | 2019-03-03 06:54 | Emergency Room Report ---
History of Present Illness General Chief Complaint: Abnormal Labs Source: Medical Record Present Illness HPI 83-year-old male with a history of hypertension, diabetes, BPH, anemia sent for BUN of 160s, potassium > 6 on outpatient labs, patient has no complaints, denies shortness of breath, chest pain, any pain complaints at all, including pain or swelling, f/c. NH reports that patient has poor PO intake. Allergies: Coded Allergies: No Known Allergies (Unverified , 04/09/16) Patient History Past Medical History: see triage record Reviewed Nursing Documentation: PMH: Agreed; PSxH: Agreed Nursing Documentation-PMH Hx Cardiac Problems: No - ANEMIA IRON DEFICIENCY Hx Hypertension: Yes Hx Pacemaker: Yes - left upper chest Hx Diabetes: Yes Hx Cancer: No - MALIGNANT NEOPLASM OF BLADDER NECK, BPH Hx Gastrointestinal Problems: No - HYPOTHYROIDISM Hx Neurological Problems: Yes - DYSPHAGIA, MUSCLE WEAKNESS, DEMENTIA Hx Dementia: Yes Hx Seizures: Yes Hx Epilepsy: Yes Review of Systems All Other Systems: negative except mentioned in HPI Physical Exam Vital Signs Date Time Temp Pulse Resp B/P (MAP) Pulse Ox O2 Delivery O2 Flow Rate FiO2 03/03/19 06:40 97.5 89 18 84/51 (62) 92 Room Air Sp02 EP Interpretation: reviewed, normal General Appearance: no apparent distress, alert, non-toxic Head: normocephalic Eyes: bilateral eye normal inspection, bilateral eye PERRL, bilateral eye EOMI ENT: normal ENT inspection, hearing grossly normal, normal pharynx, no angioedema, normal voice, dry mucus membranes Neck: normal inspection, full range of motion, supple, supple/symm/no masses Respiratory: chest non-tender, lungs clear, normal breath sounds, chest symmetrical, palpation of chest normal Cardiovascular #1: normal peripheral pulses, regular rate, rhythm, edema Cardiovascular #2: 1+ radial (R), 1+ radial (L) Gastrointestinal: normal inspection, non tender, soft, no mass, no guarding, no rebound Rectal: deferred Genitourinary: normal inspection, no CVA tenderness Musculoskeletal: back normal, gait/station normal, normal range of motion, non- tender, no calf tenderness Neurologic: alert, responsive, vp scientific affairs III-XII nml as tested, motor strength/tone normal, sensory intact, speech normal Psychiatric: judgement/insight normal, memory normal, mood/affect normal Lymphatic: no adenopathy Procedures Critical Care Time Critical Care Time 45 minutes of critical care time excluding all procedures for need for emergent treatment of acute kidney injury, concern for possible uremia given elevated BUN , hyperkalemia, and renal failure placing patient at high risk for morbidity and mortality. Medical Decision Making Diagnostic Impression: Primary Impression: Abnormal laboratory test result ER Course Patient appears volume depleted and dehydrated. EKG without signs of hyperkalemia, but NH reported elevated BUN/Cr. Will admit for IVF. US ordered to eval for bladder outlet obstruction, but no obvious acute urinary retention today. Patient found to have on ultrasound findings of bilateral hydronephrosis, ureteral stent, Robertson catheter decompressing bladder, so no evidence of dea bladder outlet obstruction. Patient was given obvious IV fluids, calcium gluconate, Kayexalate, insulin, bicarbonate for hyperkalemia treatment, also given IV antibiotics for UTI, and will need admission for acute kidney injury, hyperkalemia, elevated BUN, however patient not showing signs of uremia with normal mental status, no friction rub on cardiac auscultation, no evidence of large pericardial effusion on chest x-ray, so no indications for emergency hemodialysis at this time. EKG Diagnostic Results EKG Time: 06:50 EP Interpretation: no stemi Rate: normal Rhythm: NSR ST Segments: no acute changes ASA given to the pt in ED: No Rhythm Strip Diag. Results Rhythm Strip Time: 06:55 EP Interpretation: yes Rate: 76 Rhythm: NSR, no PVC's, no ectopy Chest X-Ray Diagnostic Results Chest X-Ray Diagnostic Results : Chest X-Ray Ordered: Yes # of Views/Limited/Complete: 1 View Indication: Other - wallace EP Interpretation: Yes Interpretation: no consolidation, no effusion, no pneumothorax, no acute cardiopulmonary disease Impression: No acute disease Electronically Signed by: Jared Samuels MD Last Vital Signs Date Time Temp Pulse Resp B/P (MAP) Pulse Ox O2 Delivery O2 Flow Rate FiO2 03/03/19 06:40 97.5 89 18 84/51 (62) 92 Room Air Disposition: ADMITTED INPATIENT Condition: Serious JARED SAMUELS M.D Mar 03, 2019 06:54
[2019-03-03] MEDS ORDERED: Sodium Chloride 2,200 ML IVLG ONE (07:00)
--- NOTE | 2019-03-03 07:16 | NUR ---
HAND-OFF: Report given to DONELL Mendoza.
[2019-03-03 07:18] LABS: BASOPHILS % (AUTO) 0.6 % (0.0-2.0); EOSINOPHILS % (AUTO) 1.1 % (0.0-3.0); HEMATOCRIT 35.5 % (42.0-52.0); HEMOGLOBIN 11.9 G/DL (14.2-18.0); LYMPHOCYTES % (AUTO) 12.5 % (20.0-45.0); MEAN CORPUSCULAR VOLUME 88 FL (80-99); MONOCYTES % (AUTO) 6.4 % (1.0-10.0); NEUTROPHILS % (AUTO) 79.4 % (45.0-75.0); PLATELET COUNT 198 K/UL (150-450); RED BLOOD COUNT 4.05 M/UL (4.70-6.10); WHITE BLOOD COUNT 10.7 K/UL (4.8-10.8)
[2019-03-03 07:38] LABS: APPEARANCE,URINE CLOUDY; BILIRUBIN, URINE NEGATIVE (NEGATIVE); COLOR,URINE PALE YELLOW; GLUCOSE, URINE (UA) NEGATIVE (NEGATIVE); KETONES,URINE NEGATIVE (NEGATIVE); LEUKOCYTE ESTERASE ,URINE 3+ (NEGATIVE); NITRITE,URINE POSITIVE (NEGATIVE); PH,URINE 5 (4.5-8.0); PROTEIN,URINE 3+ (NEGATIVE); UROBILINOGEN,URINE NORMAL MG/DL (0.0-1.0)
[2019-03-03 07:38] LABS: INR 0.9 (0.9-1.1)
--- NOTE | 2019-03-03 07:49 | NUR ---
ED Nurse Note: US tech at bedside for imaging. No sign of acute distress.
[2019-03-03] MEDS ORDERED: cefTRIAXone 1 GM in NS 55 ML IVPB ONE (08:00)
[2019-03-03 08:28] LABS: ALANINE AMINOTRANSFERASE 9 U/L (12-78); ALBUMIN 2.5 G/DL (3.4-5.0); ALBUMIN/GLOBULIN RATIO 0.5 (1.0-2.7); ALKALINE PHOSPHATASE 91 U/L (46-116); ANION GAP 10 mmol/L (5-15); ASPARTATE AMINO TRANSFERASE 10 U/L (15-37); BILIRUBIN,TOTAL 0.2 MG/DL (0.2-1.0); BLOOD UREA NITROGEN 172 mg/dL (7-18); CALCIUM 10.2 MG/DL (8.5-10.1); CARBON DIOXIDE 19 MMOL/L (21-32); CHLORIDE 113 MMOL/L (98-107); CKMB 0.9 NG/ML (0.0-3.6); CREATINE KINASE 22 U/L (26-308); CREATININE 3.2 MG/DL (0.55-1.30); SODIUM 142 MMOL/L (136-145)
[2019-03-03 08:33] LABS: POTASSIUM 6.4 MMOL/L (3.5-5.1)
--- NOTE | 2019-03-03 08:36 | NUR ---
ED Nurse Note: Potassium 6.4, Dr. Mayers notified.
[2019-03-03 08:37] VITALS: BP 102/47
[2019-03-03] MEDS ORDERED: Sodium Polystyrene Sulfonate 15gm Powder ORAL ONE (09:00)
[2019-03-03] MEDS ORDERED: Calcium Gluconate 1gm/10ml vial IVP ONE (09:00)
[2019-03-03] MEDS ORDERED: Sodium Bicarbonate 50ml Carp IV ONE (09:00)
[2019-03-03] MEDS ORDERED: Insulin Human Regular 100units/ml 3ml IV ONE (09:00)
[2019-03-03 09:39] VITALS: BP 90/61
--- NOTE | 2019-03-03 10:08 | NUR ---
ED Nurse Note: Report given to DONELL Mc at ext [phone]. Pt to be transfered to room 211-1 on [facility] per protocol.
--- NOTE | 2019-03-03 10:10 | Diagnostic Imaging Report ---
Indication: Dyspnea Comparison: 11/22/2018 A single view chest radiograph was obtained. Findings: Left pacemaker noted. Heart size is normal. Lungs are clear. Bones are osteopenic. IMPRESSION: No acute disease
--- NOTE | 2019-03-03 10:26 | NUR ---
ED Nurse Note: Room is ready, waiting for Dr to Dr communication.
[2019-03-03] MEDS ORDERED: Morphine Sulfate 2mg/ml Inj(IV/IM USE ONLY) IVP PRN (10:30)
[2019-03-03] MEDS ORDERED: LORazepam Inj 2mg/ml 1ml IV PRN (10:30)
--- NOTE | 2019-03-03 10:50 | NUR ---
NURSE NOTES: Received pt from Calin Alegre. Pt is alert and oriented X3. He is able to answer questions and make needs known. Robertson is draining well. Pt denies any pain. Heart monitor applied. No belongings with patient. Bed is in lowest position, side rails up X2, and call light is within reach. Will continue to monitor.
[2019-03-03 11:21] LABS: PHOSPHORUS 3.1 MG/DL (2.5-4.9)
--- NOTE | 2019-03-03 11:48 | Consultation ---
History of Present Illness General Date patient seen: Mar 03, 2019 Chief Complaint: Abnormal Labs Present Illness HPI 83-year-old male with hx of bladder cancer, DM, HTN, chronci CVA, dementia coming from longterm presented with chief complaint of generalized weakness. He was found to have ATN, severe hyperkalemia and admitted for further treatment. Allergies: Coded Allergies: No Known Allergies (Unverified , 04/09/16) Medication History Scheduled Amlodipine Besylate (Norvasc), 2.5 MG ORAL DAILY Ascorbic Acid* (Vitamin C*), 500 MG ORAL DAILY, (Reported) Ferrous Sulfate* (Ferrous Sulfate*), 325 MG ORAL DAILY, (Reported) Finasteride (Finasteride), 5 MG ORAL DAILY Lisinopril (Lisinopril*), 20 MG ORAL DAILY Metformin Hcl (Glucophage), 1,000 MG ORAL EVERY 12 HOURS Multivitamin (Multi-Vitamin Daily), 1 EACH PO DAILY, (Reported) Nateglinide (Starlix), 120 MG ORAL TIAC Tamsulosin HCl (Flomax), 0.4 MG ORAL BEDTIME [Prostat], 30 ML PO BID, (Reported) Miscellaneous Medications Unable to Obtain Medications (Unable To Obtain Meds), (Reported) Patient History Healthcare decision maker Resuscitation status Advanced Directive on File Past Medical/Surgical History Past Medical/Surgical History: (1) Bladder neoplasm (2) Chronic cerebrovascular accident (CVA) (3) Acute metabolic encephalopathy (4) Alzheimer's dementia (5) HTN (hypertension) (6) Diabetes mellitus Review of Systems All Other Systems: negative except mentioned in HPI Physical Exam General Appearance: WD/WN, no apparent distress Lines, tubes and drains: peripheral HEENT: normocephalic Neck: non-tender, normal alignment Respiratory/Chest: chest wall non-tender, lungs clear Abdomen: normal bowel sounds, non tender Genitourinary/Rectal: normal genital exam Extremities: normal range of motion Last 24 Hour Vital Signs Date Time Temp Pulse Resp B/P (MAP) Pulse Ox O2 Delivery O2 Flow Rate FiO2 03/03/19 10:08 97.6 97 12 90/61 95 Room Air 03/03/19 09:39 97.6 97 12 90/61 95 Room Air 03/03/19 08:37 97.6 66 12 102/47 94 Room Air 03/03/19 06:44 97.6 85 18 101/49 92 Room Air 03/03/19 06:40 97.5 89 18 84/51 (62) 92 Room Air Laboratory Tests Test 03/03/19 07:00 03/03/19 07:23 03/03/19 07:55 White Blood Count 10.7 K/UL (4.8-10.8) Red Blood Count 4.05 M/UL (4.70-6.10) L Hemoglobin 11.9 G/DL (14.2-18.0) L Hematocrit 35.5 % (42.0-52.0) L Mean Corpuscular Volume 88 FL (80-99) Mean Corpuscular Hemoglobin 29.3 PG (27.0-31.0) Mean Corpuscular Hemoglobin Concent 33.4 G/DL (32.0-36.0) Red Cell Distribution Width 15.0 % (11.6-14.8) H Platelet Count 198 K/UL (150-450) Mean Platelet Volume 4.7 FL (6.5-10.1) L Neutrophils (%) (Auto) 79.4 % (45.0-75.0) H Lymphocytes (%) (Auto) 12.5 % (20.0-45.0) L Monocytes (%) (Auto) 6.4 % (1.0-10.0) Eosinophils (%) (Auto) 1.1 % (0.0-3.0) Basophils (%) (Auto) 0.6 % (0.0-2.0) Prothrombin Time 10.1 SEC (9.30-11.50) Prothromb Time International Ratio 0.9 (0.9-1.1) Activated Partial Thromboplast Time 25 SEC (23-33) Uric Acid 6.9 MG/DL (2.6-7.2) Phosphorus Level 3.1 MG/DL (2.5-4.9) Magnesium Level 2.1 MG/DL (1.8-2.4) Troponin I 0.000 ng/mL (0.000-0.056) Free Thyroxine 1.01 NG/DL (0.76-1.46) Free Triiodothyronine 1.4 pg/mL (2.3-4.2) L Urine Color Pale yellow Urine Appearance Cloudy Urine pH 5 (4.5-8.0) Urine Specific Gilbert 1.010 (1.005-1.035) Urine Protein 3+ (NEGATIVE) H Urine Glucose (UA) Negative (NEGATIVE) Urine Ketones Negative (NEGATIVE) Urine Blood 5+ (NEGATIVE) H Urine Nitrite Positive (NEGATIVE) H Urine Bilirubin Negative (NEGATIVE) Urine Urobilinogen Normal MG/DL (0.0-1.0) Urine Leukocyte Esterase 3+ (NEGATIVE) H Urine RBC 5-10 /HPF (0 - 0) H Urine WBC Tntc /HPF (0 - 0) H Urine Squamous Epithelial Cells Occasional /LPF Urine Bacteria Moderate /HPF (NONE) H Sodium Level 142 MMOL/L (136-145) Potassium Level 6.4 MMOL/L (3.5-5.1) *H Chloride Level 113 MMOL/L (98-107) H Carbon Dioxide Level 19 MMOL/L (21-32) L Anion Gap 10 mmol/L (5-15) Blood Urea Nitrogen 172 mg/dL (7-18) H Creatinine 3.2 MG/DL (0.55-1.30) H Estimat Glomerular Filtration Rate mL/min (>60) Glucose Level 98 MG/DL (74-106) Calcium Level 10.2 MG/DL (8.5-10.1) H Total Bilirubin 0.2 MG/DL (0.2-1.0) Aspartate Amino Transf (AST/SGOT) 10 U/L (15-37) L Alanine Aminotransferase (ALT/SGPT) 9 U/L (12-78) L Alkaline Phosphatase 91 U/L (46-116) Total Creatine Kinase 22 U/L (26-308) L Creatine Kinase MB 0.9 NG/ML (0.0-3.6) Creatine Kinase MB Relative Index 4.0 Pro-B-Type Natriuretic Peptide 532 pg/mL (0-125) H Total Protein 7.3 G/DL (6.4-8.2) Albumin 2.5 G/DL (3.4-5.0) L Globulin 4.8 g/dL Albumin/Globulin Ratio 0.5 (1.0-2.7) L Height (Feet): 5 Height (Inches): 7.00 Weight (Pounds): 165 Medications Current Medications Medications (Trade) Dose Ordered Sig/Levi Route PRN Reason Start Time Stop Time Status Last Admin Dose Admin Acetaminophen (Tylenol) 650 mg Q4H PRN ORAL T>100.5 03/03/19 10:30 04/02/19 10:29 Clonidine HCl (Catapres Tab) 0.1 mg Q4H PRN ORAL SBP > 160mmHg 03/03/19 10:30 04/02/19 10:29 Dextrose (Dextrose 50%) 25 ml Q30M PRN IV Hypoglycemia 03/03/19 10:30 04/02/19 10:29 Dextrose (Dextrose 50%) 50 ml Q30M PRN IV Hypoglycemia 03/03/19 10:30 04/02/19 10:29 Finasteride (Proscar) 5 mg DAILY ORAL 03/04/19 09:00 04/03/19 08:59 Heparin Sodium (Porcine) (Heparin 5000 units/ml) 5,000 units EVERY 12 HOURS SUBQ 03/03/19 21:00 04/02/19 20:59 Insulin Aspart (NovoLOG) BEFORE MEALS AND HS SUBQ 03/03/19 11:30 04/02/19 11:29 Lorazepam (Ativan 2mg/ml 1ml) 0.5 mg Q4H PRN IV For Anxiety 03/03/19 10:30 03/10/19 10:29 Morphine Sulfate (Morphine Sulfate) 1 mg Q4H PRN IVP PAIN 4-10 03/03/19 10:30 03/10/19 10:29 Nateglinide (Starlix) 120 mg TIAC ORAL 03/03/19 11:30 04/02/19 11:29 Ondansetron HCl (Zofran) 4 mg Q6H PRN IVP Nausea & Vomiting 03/03/19 10:30 04/02/19 10:29 Polyethylene Glycol (Miralax) 17 gm HSPRN PRN ORAL Constipation 03/03/19 21:00 04/02/19 20:59 Sodium Chloride 1,000 ml @ 150 mls/hr Q6H40M IV 03/03/19 10:45 04/02/19 10:44 Tamsulosin HCl (Flomax) 0.4 mg BEDTIME ORAL 03/03/19 21:00 04/02/19 20:59 Zolpidem Tartrate (Ambien) 5 mg HSPRN PRN ORAL Insomnia 03/03/19 21:00 03/10/19 20:59 Assessment/Plan Problem List: (1) Acute metabolic encephalopathy ICD Codes: G93.41 - Metabolic encephalopathy SNOMED: 69583142, 718702037 (2) Hyperkalemia ICD Codes: E87.5 - Hyperkalemia SNOMED: 51327135 (3) KENN (acute kidney injury) ICD Codes: N17.9 - Acute kidney failure, unspecified SNOMED: 8696624, 60891654 (4) Diabetes mellitus ICD Codes: E11.9 - Type 2 diabetes mellitus without complications SNOMED: 77790831 (5) HTN (hypertension) ICD Codes: I10 - Essential (primary) hypertension SNOMED: 85056081 (6) Alzheimer's dementia ICD Codes: G30.9 - Alzheimer's disease, unspecified; F02.80 - Dementia in other diseases classified elsewhere without behavioral disturbance SNOMED: 72055543 (7) Chronic cerebrovascular accident (CVA) ICD Codes: I69.30 - Unspecified sequelae of cerebral infarction SNOMED: 824170417 Assessment/Plan: iv fluids kayexalate check K daily symptomatic treatment pain control consider comfort care Og Hinkle MD Mar 03, 2019 11:48
[2019-03-03 12:00] VITALS: BP 115/54
--- NOTE | 2019-03-03 12:44 | Diagnostic Imaging Report ---
Indication: Abdominal pain Technique: Grayscale and duplex Doppler imaging of the abdomen performed. Comparison: None Findings: The study is very limited. No obvious abnormalities of the visualized part of the liver identified. Portal vein is patent by Doppler examination. There is a left nephroureteral stent partially visualized. The kidneys demonstrate bilateral hydronephrosis. Aorta is calcified. The pancreas is unremarkable. There is a Robertson catheter within the bladder which shows wall thickening. Proximal IVC is seen and unremarkable. Spleen is normal size. IMPRESSION: Very limited evaluation showing bilateral hydronephrosis Thickened bladder wall. Robertson catheter noted. Correlate for cystitis. Left Nephroureteral stent not well seen IMPRESSION: No acute findings identified.
[2019-03-03] MEDS: NovoLOG Insulin Flexpen SUBQ SCH ×3 (13:17→20:59)
[2019-03-03 13:20] LABS: ALANINE AMINOTRANSFERASE 9 U/L (12-78); ALBUMIN 2.5 G/DL (3.4-5.0); ALBUMIN/GLOBULIN RATIO 0.5 (1.0-2.7); ALKALINE PHOSPHATASE 96 U/L (46-116); ANION GAP 10 mmol/L (5-15); ASPARTATE AMINO TRANSFERASE 10 U/L (15-37); BILIRUBIN,TOTAL 0.3 MG/DL (0.2-1.0); BLOOD UREA NITROGEN 143 mg/dL (7-18); CARBON DIOXIDE 20 MMOL/L (21-32); CHLORIDE 114 MMOL/L (98-107); CREATININE 2.6 MG/DL (0.55-1.30); POTASSIUM 5.8 MMOL/L (3.5-5.1); SODIUM 144 MMOL/L (136-145)
[2019-03-03 16:00] VITALS: BP 102/50
--- NOTE | 2019-03-03 16:15 | NUR ---
NURSE NOTES:WOUND CARE NOTES:Pt presented on admission with non-blanchable erythema without induration sacrum. Darker skin tone without erythema or induration periwound.Non-tender when palpated.Non-blanchable erythema with fluctuance R heel. Non-tender when palpated. Non-blanchable erythema with fluctuance L heel. Non-tender when palpated. Areas of hypopigmentation noted to R scapula and L thoracic areas. No other skin concerns noted. Tx.Plan: Apply Moisture Barrier Paste to Sacrum. Cover with Optifoam drsg. Change every 3 days and prn. Apply Moisture Barrier paste to groin and scrotal areas with each incontinence care. Apply Cavilon Skin Barrier to both heels. Cover each heel with Optifoam drsg. Change every 7 days and prn. Reposition at least every 2hours or as tolerated. Off-load heels with pillow.
[2019-03-03 16:56] LABS: APPEARANCE,URINE TURBID; BILIRUBIN, URINE NEGATIVE (NEGATIVE); COLOR,URINE PALE YELLOW; GLUCOSE, URINE (UA) NEGATIVE (NEGATIVE); KETONES,URINE NEGATIVE (NEGATIVE); LEUKOCYTE ESTERASE ,URINE 3+ (NEGATIVE); NITRITE,URINE NEGATIVE (NEGATIVE); PH,URINE 5 (4.5-8.0); PROTEIN,URINE 3+ (NEGATIVE); UROBILINOGEN,URINE NORMAL MG/DL (0.0-1.0)
--- NOTE | 2019-03-03 17:45 | History & Physical ---
History and Physical History & Physicial Dictated for Int Med-Dr Lowe no. [id number]. Jean-Claude Peter MD Mar 03, 2019 17:45
--- NOTE | 2019-03-03 18:24 | Cardiology Report ---
APPROVED REPORT EKG Measurement Heart [id number] Sinus rhythm with 1st degree AV block Low voltage QRS Borderline ECG
--- NOTE | 2019-03-03 19:46 | NUR ---
HAND-OFF: Report given to DONELL Beth. Plan of care endorsed.
--- NOTE | 2019-03-03 19:47 | NUR ---
NURSE NOTES: Received report from DONELL Mc. Pt is awake and resting in bed. In no acute distress. Bed in lowest position, call light within reach. Will continue plan of care.
[2019-03-03 20:00] VITALS: BP 124/70
[2019-03-03] MEDS ORDERED: Zolpidem 5mg tab ORAL PRN (21:00)
[2019-03-03] MEDS ORDERED: Tamsulosin 0.4mg cap ORAL SCH (21:00)
[2019-03-03] MEDS ORDERED: Miralax 17gm pkt ORAL PRN (21:00)
[2019-03-03] MEDS: Heparin 5000 units/ml inj SUBQ SCH (21:00)
[2019-03-04] VITALS: BP 115/56
--- NOTE | 2019-03-04 02:15 | History and Physical Report ---
DATE OF ADMISSION: 03/03/2019 CHIEF COMPLAINT: The patient is an 83-year-old male, who presents with a chief complaint of abnormal laboratories. HISTORY OF PRESENT ILLNESS: The patient was admitted to [facility] from 12/27/2018 to 01/04/2019. The patient had a dislodged left nephrostomy tube. A stent was placed during that hospitalization. The patient is a resident of [facility]. The patient was referred to [facility] emergency room for abnormal labs. The patient was found to have a BUN of greater than 116 and potassium greater than 6. The patient is admitted with acute on chronic renal failure. REVIEW OF SYSTEMS: CONSTITUTIONAL: The patient denies weight loss weight gain. The patient denies fevers or chills. HEENT: The patient denies ear or throat pain. The patient denies headache. CARDIOVASCULAR: The patient denies palpitations or chest pain. CHEST: The patient denies wheeze or shortness of breath. ABDOMINAL: The patient denies nausea, vomiting, diarrhea, or constipation. GENITOURINARY: The patient denies dysuria or increased frequency of urination. NEUROMUSCULAR: The patient denies seizures or generalized weakness. PAST MEDICAL HISTORY: Significant for: 1. Bladder cancer, diagnosed in November 2018. 2. Hypertension. 3. Diabetes type 2. 4. AV conduction defect. 5. Alzheimer's dementia. 6. Left hydronephrosis. PAST SURGICAL HISTORY: Significant for: 1. Pacemaker. 2. Transurethral bladder mass resection on 11/24/2018. 3. Left nephrostomy tube placed on 11/26/2018. 4. Cystoscopy and left ureteral stent placement on 12/31/2018 at [facility]. CURRENT MEDICATIONS: 1. Amlodipine 2.5 mg p.o. daily. 2. Iron sulfate 325 mg p.o. daily. 3. Vitamin C 500 mg p.o. daily. 4. Finasteride 5 mg p.o. daily. 5. Lisinopril 20 mg p.o. daily. 6. Glucophage 1000 mg p.o. twice daily. 7. Starlix 120 mg p.o. 3 times daily. 8. Flomax 0.4 mg p.o. at bedtime. 9. Pro-Stat 30 mg p.o. twice daily. ALLERGIES: No known drug allergies. SOCIAL HISTORY: The patient is single and is a resident of [facility]. The patient denies tobacco or alcohol use. PHYSICAL EXAMINATION: VITAL SIGNS: Temperature 97.6, respirations 12, pulse 66, and blood pressure 102/47. GENERAL: The patient is a well-developed and well-nourished male, in no apparent distress. HEENT: Eyes, pupils are equal and responsive to light and accommodation. Extraocular movements are intact. NECK: Supple without lymphadenopathy. CHEST: Lungs are clear to auscultation bilaterally without wheezes or rales. CARDIOVASCULAR: Regular rhythm and rate. S1 and S2 are normal without murmurs, rubs, or gallops. ABDOMEN: Soft, nontender, and nondistended. Positive bowel sounds. No evidence of hepatosplenomegaly. Currently, no rebound or guarding noted. EXTREMITIES: Negative for clubbing, cyanosis, or edema. RECTAL/GENITAL: Not performed. NEUROLOGIC: Cranial nerves II through XII are grossly intact without focal deficits. Motor strength is 5/5 bilaterally. Deep tendon reflexes are 2+ plantar. LABORATORY STUDIES: WBC 10.7, hemoglobin 11.9, hematocrit 35.5, and platelets 198,000. Sodium 142, potassium 6.4, chloride 113, CO2 19, BUN 172, creatinine 3.2, and glucose 98. Urinalysis showed 3+ protein, 5+ blood, nitrite positive, with 3+ leukocyte esterase, 5 to 10 rbc's, and wbc's too numerous to count. ASSESSMENT: This is an 83-year-old male. 1. Acute renal failure. 2. Urinary tract infection. 3. Bladder cancer. 4. Hypertension. 5. Diabetes type 2. 6. AV conduction defect. 7. Alzheimer's dementia. 8. Left hydronephrosis. TREATMENT: 1. Acute renal failure/urinary tract infection. The patient has been started empirically on intravenous ceftriaxone. Urine culture is pending. Await urine culture results. A Nephrology consultation has been obtained with Dr. Serna. The patient may require hemodialysis. We will follow recommendations of Nephrology. 2. Urinary tract infection as above. The patient has been placed empirically on ceftriaxone. Await urine culture results. 3. Bladder cancer. The patient is status post resection. 4. Hypertension. The patient is currently hypotensive. The patient will be given clonidine p.r.n. 5. Diabetes type 2. The patient has been placed on a NovoLog sliding scale. 6. AV conduction defect. 7. Alzheimer's dementia. 8. Left hydronephrosis. The patient is status post left ureteral stent placed on 12/31/2018. Jean-Claude Peter M.D. DR: AMANDA JOB#: [id number] CC:
[2019-03-04 04:00] VITALS: BP 113/60
[2019-03-04] MEDS: NovoLOG Insulin Flexpen SUBQ SCH ×4 (06:26→21:18)
[2019-03-04 06:46] LABS: BASOPHILS % (AUTO) 0.6 % (0.0-2.0); EOSINOPHILS % (AUTO) 1.2 % (0.0-3.0); HEMOGLOBIN 11.9 G/DL (14.2-18.0); LYMPHOCYTES % (AUTO) 12.5 % (20.0-45.0); MEAN CORPUSCULAR VOLUME 88 FL (80-99); MONOCYTES % (AUTO) 7.4 % (1.0-10.0); NEUTROPHILS % (AUTO) 78.4 % (45.0-75.0); PLATELET COUNT 186 K/UL (150-450); RED BLOOD COUNT 4.07 M/UL (4.70-6.10); RED CELL DISTRIBUTION WIDTH 15.6 % (11.6-14.8); WHITE BLOOD COUNT 10.4 K/UL (4.8-10.8)
[2019-03-04 07:14] LABS: ALANINE AMINOTRANSFERASE 9 U/L (12-78); ALBUMIN 2.4 G/DL (3.4-5.0); ALBUMIN/GLOBULIN RATIO 0.5 (1.0-2.7); ALKALINE PHOSPHATASE 87 U/L (46-116); ANION GAP 9 mmol/L (5-15); ASPARTATE AMINO TRANSFERASE 13 U/L (15-37); BILIRUBIN,TOTAL 0.3 MG/DL (0.2-1.0); BLOOD UREA NITROGEN 112 mg/dL (7-18); CALCIUM 10.1 MG/DL (8.5-10.1); CARBON DIOXIDE 21 MMOL/L (21-32); CHLORIDE 118 MMOL/L (98-107); CHOLESTEROL 141 MG/DL (< 200); CREATININE 1.7 MG/DL (0.55-1.30); HDL CHOLESTEROL 33 MG/DL (40-60); POTASSIUM 5.2 MMOL/L (3.5-5.1); SODIUM 148 MMOL/L (136-145); TRIGLYCERIDES 81 MG/DL (30-150)
--- NOTE | 2019-03-04 07:14 | NUR ---
HAND-OFF: Report given to DONELL Fernandez.
--- NOTE | 2019-03-04 07:14 | NUR ---
NURSE NOTES: Received report from DONELL Beth. Pt is awake,a/o x 2, resting in bed with open eyes. In no acute distress.no c/o pain. Bed in lowest position,rails up x 2. call light and frequent used objects are within reach. iv intact and running @ prescribed rate. Will continue plan of care.
--- NOTE | 2019-03-04 07:55 | Consultation ---
Consult Note Consult Note asked to eval for renal failure and high K patient seen late afternoon 03/03 discussed with WILDLIFE ECOLOGIST note: 83-year-old male with a history of hypertension, diabetes, BPH, anemia sent for BUN of 160s, potassium > 6 on outpatient labs, patient has no complaints, denies shortness of breath, chest pain, any pain complaints at all, including pain or swelling, f/c. NH reports that patient has poor PO intake. No Known Allergies (Unverified , 04/09/16) Hx Cardiac Problems: No - ANEMIA IRON DEFICIENCY Hx Hypertension: Yes Hx Pacemaker: Yes - left upper chest Hx Diabetes: Yes Hx Cancer: No - MALIGNANT NEOPLASM OF BLADDER NECK, BPH Hx Gastrointestinal Problems: No - HYPOTHYROIDISM Hx Neurological Problems: Yes - DYSPHAGIA, MUSCLE WEAKNESS, DEMENTIA Hx Dementia: Yes Hx Seizures: Yes Hx Epilepsy: Yes . . Assessment/Plan Acute renal failure- Dehydration , Hyperkalemia s/p Left nephrostomy tube dislodgment requiring stent placement h/o UTI with Nhea/pyelonephritis Bladder cancer, extensive stage Left-sided hydronephrosis with mild to moderate right-sided hydronephrosis in December 2018- status post cystoscopy, urethral calibration, bilateral retrograde pyelograms, dilation of left ureter and placement of left ureteral stent, transurethral resection and biopsies of extensive bladder tumors, and extensive fulguration of bladder mucosa. BPH Neurogenic bladder History of CVA Alzheimer's dementia AV conduction defect Hypertension Diabetes mellitus Hydrate- Assure patency of urinary outflow monitor renal parameters and electrolytes per order Bryan Serna MD Mar 04, 2019 07:55
[2019-03-04] MEDS: Heparin 5000 units/ml inj SUBQ SCH ×2 (08:08→20:31)
[2019-03-04 08:24] VITALS: BP 92/60
[2019-03-04 12:00] VITALS: BP 97/52
--- NOTE | 2019-03-04 12:11 | Nephrology Progress Note ---
Assessment/Plan Problem List: (1) Hyperkalemia (2) KENN (acute kidney injury) (3) HTN (hypertension) (4) Diabetes mellitus (5) Hydronephrosis (6) Bladder neoplasm Assessment Acute renal failure- Dehydration , Hyperkalemia s/p Left nephrostomy tube dislodgment requiring stent placement h/o UTI with Neha/pyelonephritis Bladder cancer, extensive stage Left-sided hydronephrosis with mild to moderate right-sided hydronephrosis in December 2018- status post cystoscopy, urethral calibration, bilateral retrograde pyelograms, dilation of left ureter and placement of left ureteral stent, transurethral resection and biopsies of extensive bladder tumors, and extensive fulguration of bladder mucosa. BPH Neurogenic bladder History of CVA Alzheimer's dementia AV conduction defect Hypertension Diabetes mellitus Plan Hydrate- Assure patency of urinary outflow monitor renal parameters and electrolytes per order Objective Objective Last 24 Hour Vital Signs Date Time Temp Pulse Resp B/P (MAP) Pulse Ox O2 Delivery O2 Flow Rate FiO2 03/04/19 09:13 Room Air 03/04/19 08:24 97.3 53 18 92/60 (71) 95 03/04/19 04:00 97.7 97 18 113/60 (77) 96 03/04/19 04:00 97 03/04/19 00:00 78 03/04/19 00:00 97.7 78 18 115/56 (75) 96 03/03/19 21:00 Room Air 03/03/19 20:00 97.0 70 18 124/70 (88) 98 03/03/19 20:00 70 03/03/19 16:00 96.6 102 16 102/50 (67) 99 03/03/19 16:00 109 03/03/19 12:25 Room Air Intake and Output 03/03/19 03/04/19 19:00 07:00 Intake Total 3615 ml 1120 ml Output Total 2075 ml 1500 ml Balance 1540 ml -380 ml Intake Oral 360 ml 120 ml IV Total 3255 ml 1000 ml Output Urine Total 2075 ml 1500 ml # Voids 3 Laboratory Tests 03/03/19 13:00: Sodium Level 144, Potassium Level 5.8H, Chloride Level 114H, Carbon Dioxide Level 20L, Anion Gap 10, Blood Urea Nitrogen 143H, Creatinine 2.6H, Estimat Glomerular Filtration Rate , Glucose Level 128H, Calcium Level 10.0, Total Bilirubin 0.3, Aspartate Amino Transf (AST/SGOT) 10L, Alanine Aminotransferase ( ALT/SGPT) 9L, Alkaline Phosphatase 96, Total Protein 7.6, Albumin 2.5L, Globulin 5.1, Albumin/Globulin Ratio 0.5L 03/03/19 16:38: Urine Color Pale yellow, Urine Appearance Turbid, Urine pH 5, Urine Specific [place] 1.015, Urine Protein 3+H, Urine Glucose (UA) Negative, Urine Ketones Negative, Urine Blood 5+H, Urine Nitrite Negative, Urine Bilirubin Negative, Urine Urobilinogen Normal, Urine Leukocyte Esterase 3+H, Urine RBC 15-20H, Urine WBC TntcH, Urine Squamous Epithelial Cells Occasional, Urine Bacteria ManyH, Urine Eosinophils Few, Urine Random Sodium 87, Urine Random Chloride 91, Urine Potassium Timed 10L 03/04/19 06:18: Sodium Level 148H, Potassium Level 5.2H, Chloride Level 118H, Carbon Dioxide Level 21, Anion Gap 9, Blood Urea Nitrogen 112H, Creatinine 1.7H, Estimat Glomerular Filtration Rate , Glucose Level 113H, Calcium Level 10.1, Total Bilirubin 0.3, Aspartate Amino Transf (AST/SGOT) 13L, Alanine Aminotransferase ( ALT/SGPT) 9L, Alkaline Phosphatase 87, Total Protein 7.3, Albumin 2.4L, Globulin 4.9, Albumin/Globulin Ratio 0.5L, White Blood Count 10.4, Red Blood Count 4.07L, Hemoglobin 11.9L, Hematocrit 36.0L, Mean Corpuscular Volume 88, Mean Corpuscular Hemoglobin 29.1, Mean Corpuscular Hemoglobin Concent 33.0, Red Cell Distribution Width 15.6H, Platelet Count 186, Mean Platelet Volume 4.4L, Neutrophils (%) (Auto) 78.4H, Lymphocytes (%) (Auto) 12.5L, Monocytes (%) (Auto ) 7.4, Eosinophils (%) (Auto) 1.2, Basophils (%) (Auto) 0.6, Hemoglobin A1c 7.0H , Triglycerides Level 81, Cholesterol Level 141, LDL Cholesterol 100, HDL Cholesterol 33L, Cholesterol/HDL Ratio 4.3, Thyroid Stimulating Hormone (TSH) 0.077L Height (Feet): 5 Height (Inches): 7.00 Weight (Pounds): 165 Fouladian,Bryan MD Mar 04, 2019 12:11
[2019-03-04] MEDS: Docusate 100mg cap ORAL SCH ×2 (12:32→17:09)
--- NOTE | 2019-03-04 12:54 | Pulmonology Progress Note ---
Assessment/Plan Problems: (1) Acute metabolic encephalopathy (2) Hyperkalemia (3) KENN (acute kidney injury) (4) Diabetes mellitus (5) HTN (hypertension) (6) Alzheimer's dementia (7) Chronic cerebrovascular accident (CVA) Assessment/Plan K is lower, bun/creatinine better iv fluids at 100 cc/hour kayexalate check K daily symptomatic treatment pain control consider comfort care Subjective Constitutional: Reports: no symptoms HEENT: Repors: no symptoms Respiratory: Reports: no symptoms Allergies: Coded Allergies: No Known Allergies (Unverified , 04/09/16) Objective Last 24 Hour Vital Signs Date Time Temp Pulse Resp B/P (MAP) Pulse Ox O2 Delivery O2 Flow Rate FiO2 03/04/19 09:13 Room Air 03/04/19 08:24 97.3 53 18 92/60 (71) 95 03/04/19 04:00 97.7 97 18 113/60 (77) 96 03/04/19 04:00 97 03/04/19 00:00 78 03/04/19 00:00 97.7 78 18 115/56 (75) 96 03/03/19 21:00 Room Air 03/03/19 20:00 97.0 70 18 124/70 (88) 98 03/03/19 20:00 70 03/03/19 16:00 96.6 102 16 102/50 (67) 99 03/03/19 16:00 109 Intake and Output 03/03/19 03/04/19 19:00 07:00 Intake Total 3615 ml 1120 ml Output Total 2075 ml 1500 ml Balance 1540 ml -380 ml Intake Oral 360 ml 120 ml IV Total 3255 ml 1000 ml Output Urine Total 2075 ml 1500 ml # Voids 3 General Appearance: cachetic HEENT: normocephalic, anicteric Respiratory/Chest: lungs clear, normal breath sounds, chest wall tender Cardiovascular: normal rate, no gallop/murmur Abdomen: normal bowel sounds, soft, non tender, no organomegaly Genitourinary: normal external genitalia 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 Microbiology Date/Time Source Procedure Growth Status 03/03/19 16:38 Urine,Clean Catch Urine Culture - Preliminary Gram Negative Bacillus 1 Resulted 03/03/19 07:23 Urine,Clean Catch Urine Culture - Preliminary Gram Negative Bacillus 1 Resulted Laboratory Tests 03/03/19 13:00: Sodium Level 144, Potassium Level 5.8H, Chloride Level 114H, Carbon Dioxide Level 20L, Anion Gap 10, Blood Urea Nitrogen 143H, Creatinine 2.6H, Estimat Glomerular Filtration Rate , Glucose Level 128H, Calcium Level 10.0, Total Bilirubin 0.3, Aspartate Amino Transf (AST/SGOT) 10L, Alanine Aminotransferase ( ALT/SGPT) 9L, Alkaline Phosphatase 96, Total Protein 7.6, Albumin 2.5L, Globulin 5.1, Albumin/Globulin Ratio 0.5L 03/03/19 16:38: Urine Color Pale yellow, Urine Appearance Turbid, Urine pH 5, Urine Specific [place] 1.015, Urine Protein 3+H, Urine Glucose (UA) Negative, Urine Ketones Negative, Urine Blood 5+H, Urine Nitrite Negative, Urine Bilirubin Negative, Urine Urobilinogen Normal, Urine Leukocyte Esterase 3+H, Urine RBC 15-20H, Urine WBC TntcH, Urine Squamous Epithelial Cells Occasional, Urine Bacteria ManyH, Urine Eosinophils Few, Urine Random Sodium 87, Urine Random Chloride 91, Urine Potassium Timed 10L 03/04/19 06:18: Sodium Level 148H, Potassium Level 5.2H, Chloride Level 118H, Carbon Dioxide Level 21, Anion Gap 9, Blood Urea Nitrogen 112H, Creatinine 1.7H, Estimat Glomerular Filtration Rate , Glucose Level 113H, Calcium Level 10.1, Total Bilirubin 0.3, Aspartate Amino Transf (AST/SGOT) 13L, Alanine Aminotransferase ( ALT/SGPT) 9L, Alkaline Phosphatase 87, Total Protein 7.3, Albumin 2.4L, Globulin 4.9, Albumin/Globulin Ratio 0.5L, White Blood Count 10.4, Red Blood Count 4.07L, Hemoglobin 11.9L, Hematocrit 36.0L, Mean Corpuscular Volume 88, Mean Corpuscular Hemoglobin 29.1, Mean Corpuscular Hemoglobin Concent 33.0, Red Cell Distribution Width 15.6H, Platelet Count 186, Mean Platelet Volume 4.4L, Neutrophils (%) (Auto) 78.4H, Lymphocytes (%) (Auto) 12.5L, Monocytes (%) (Auto ) 7.4, Eosinophils (%) (Auto) 1.2, Basophils (%) (Auto) 0.6, Hemoglobin A1c 7.0H , Triglycerides Level 81, Cholesterol Level 141, LDL Cholesterol 100, HDL Cholesterol 33L, Cholesterol/HDL Ratio 4.3, Thyroid Stimulating Hormone (TSH) 0.077L Current Medications Medications (Trade) Dose Ordered Sig/Levi Route PRN Reason Start Time Stop Time Status Last Admin Dose Admin Acetaminophen (Tylenol) 650 mg Q4H PRN ORAL T>100.5 03/03/19 10:30 04/02/19 10:29 Clonidine HCl (Catapres Tab) 0.1 mg Q4H PRN ORAL SBP > 160mmHg 03/03/19 10:30 04/02/19 10:29 Dextrose 1,000 ml @ 100 mls/hr Q10H IV 03/04/19 12:15 04/03/19 12:14 03/04/19 12:32 Dextrose (Dextrose 50%) 25 ml Q30M PRN IV Hypoglycemia 03/03/19 10:30 04/02/19 10:29 Dextrose (Dextrose 50%) 50 ml Q30M PRN IV Hypoglycemia 03/03/19 10:30 04/02/19 10:29 Docusate Sodium (Colace) 100 mg THREE TIMES A DAY ORAL 03/04/19 13:00 04/03/19 12:59 03/04/19 12:32 Finasteride (Proscar) 5 mg DAILY ORAL 03/04/19 09:00 04/03/19 08:59 03/04/19 08:02 Heparin Sodium (Porcine) (Heparin 5000 units/ml) 5,000 units EVERY 12 HOURS SUBQ 03/03/19 21:00 04/02/19 20:59 03/04/19 08:08 Insulin Aspart (NovoLOG) BEFORE MEALS AND HS SUBQ 03/03/19 11:30 04/02/19 11:29 03/04/19 11:09 Lorazepam (Ativan 2mg/ml 1ml) 0.5 mg Q4H PRN IV For Anxiety 03/03/19 10:30 03/10/19 10:29 Morphine Sulfate (Morphine Sulfate) 1 mg Q4H PRN IVP PAIN 4-10 03/03/19 10:30 03/10/19 10:29 Nateglinide (Starlix) 60 mg TIAC ORAL 03/04/19 16:30 04/03/19 16:29 Ondansetron HCl (Zofran) 4 mg Q6H PRN IVP Nausea & Vomiting 03/03/19 10:30 04/02/19 10:29 Pantoprazole (Protonix) 40 mg EVERY 12 HOURS ORAL 03/04/19 21:00 04/03/19 20:59 Polyethylene Glycol (Miralax) 17 gm HSPRN PRN ORAL Constipation 03/03/19 21:00 04/02/19 20:59 Tamsulosin HCl (Flomax) 0.4 mg BEDTIME ORAL 03/03/19 21:00 04/02/19 20:59 03/03/19 20:57 Zolpidem Tartrate (Ambien) 5 mg HSPRN PRN ORAL Insomnia 03/03/19 21:00 03/10/19 20:59 Og Hinkle MD Mar 04, 2019 12:54
--- NOTE | 2019-03-04 15:04 | Internal Med Progress Note ---
Subjective Physician Name Jaziel Lowe Attending Physician Jaziel Lowe MD Current Medications Medications (Trade) Dose Ordered Sig/Levi Route PRN Reason Start Time Stop Time Status Last Admin Dose Admin Acetaminophen (Tylenol) 650 mg Q4H PRN ORAL T>100.5 03/03/19 10:30 04/02/19 10:29 Clonidine HCl (Catapres Tab) 0.1 mg Q4H PRN ORAL SBP > 160mmHg 03/03/19 10:30 04/02/19 10:29 Dextrose 1,000 ml @ 100 mls/hr Q10H IV 03/04/19 12:15 04/03/19 12:14 03/04/19 12:32 Dextrose (Dextrose 50%) 25 ml Q30M PRN IV Hypoglycemia 03/03/19 10:30 04/02/19 10:29 Dextrose (Dextrose 50%) 50 ml Q30M PRN IV Hypoglycemia 03/03/19 10:30 04/02/19 10:29 Docusate Sodium (Colace) 100 mg THREE TIMES A DAY ORAL 03/04/19 13:00 04/03/19 12:59 03/04/19 12:32 Finasteride (Proscar) 5 mg DAILY ORAL 03/04/19 09:00 04/03/19 08:59 03/04/19 08:02 Heparin Sodium (Porcine) (Heparin 5000 units/ml) 5,000 units EVERY 12 HOURS SUBQ 03/03/19 21:00 04/02/19 20:59 03/04/19 08:08 Insulin Aspart (NovoLOG) BEFORE MEALS AND HS SUBQ 03/03/19 11:30 04/02/19 11:29 03/04/19 11:09 Lorazepam (Ativan 2mg/ml 1ml) 0.5 mg Q4H PRN IV For Anxiety 03/03/19 10:30 03/10/19 10:29 Morphine Sulfate (Morphine Sulfate) 1 mg Q4H PRN IVP PAIN 4-10 03/03/19 10:30 03/10/19 10:29 Nateglinide (Starlix) 60 mg TIAC ORAL 03/04/19 16:30 04/03/19 16:29 Ondansetron HCl (Zofran) 4 mg Q6H PRN IVP Nausea & Vomiting 7/25/19 10:30 04/02/19 10:29 Pantoprazole (Protonix) 40 mg EVERY 12 HOURS ORAL 03/04/19 21:00 04/03/19 20:59 Polyethylene Glycol (Miralax) 17 gm HSPRN PRN ORAL Constipation 03/03/19 21:00 04/02/19 20:59 Tamsulosin HCl (Flomax) 0.4 mg BEDTIME ORAL 03/03/19 21:00 04/02/19 20:59 03/03/19 20:57 Zolpidem Tartrate (Ambien) 5 mg HSPRN PRN ORAL Insomnia 03/03/19 21:00 03/10/19 20:59 Allergies: Coded Allergies: No Known Allergies (Unverified , 04/09/16) Subjective awake, alert, responsive, NAD, No chest pain or SOB Objective Last Vital Signs Date Time Temp Pulse Resp B/P (MAP) Pulse Ox O2 Delivery O2 Flow Rate FiO2 03/04/19 12:00 97.7 81 18 97/52 (67) 98 03/04/19 09:13 Room Air Laboratory Tests Test 03/03/19 16:38 03/04/19 06:18 Urine Color Pale yellow Urine Appearance Turbid Urine pH 5 (4.5-8.0) Urine Specific [place] 1.015 (1.005-1.035) Urine Protein 3+ (NEGATIVE) H Urine Glucose (UA) Negative (NEGATIVE) Urine Ketones Negative (NEGATIVE) Urine Blood 5+ (NEGATIVE) H Urine Nitrite Negative (NEGATIVE) Urine Bilirubin Negative (NEGATIVE) Urine Urobilinogen Normal MG/DL (0.0-1.0) Urine Leukocyte Esterase 3+ (NEGATIVE) H Urine RBC 15-20 /HPF (0 - 0) H Urine WBC Tntc /HPF (0 - 0) H Urine Squamous Epithelial Cells Occasional /LPF Urine Bacteria Many /HPF (NONE) H Urine Eosinophils Few (NONE SEEN) Urine Random Sodium 87 mmol/L (20-110) Urine Random Chloride 91 mmol/L (55-125) Urine Potassium Timed 10 mmol/L (12-62) L White Blood Count 10.4 K/UL (4.8-10.8) Red Blood Count 4.07 M/UL (4.70-6.10) L Hemoglobin 11.9 G/DL (14.2-18.0) L Hematocrit 36.0 % (42.0-52.0) L Mean Corpuscular Volume 88 FL (80-99) Mean Corpuscular Hemoglobin 29.1 PG (27.0-31.0) Mean Corpuscular Hemoglobin Concent 33.0 G/DL (32.0-36.0) Red Cell Distribution Width 15.6 % (11.6-14.8) H Platelet Count 186 K/UL (150-450) Mean Platelet Volume 4.4 FL (6.5-10.1) L Neutrophils (%) (Auto) 78.4 % (45.0-75.0) H Lymphocytes (%) (Auto) 12.5 % (20.0-45.0) L Monocytes (%) (Auto) 7.4 % (1.0-10.0) Eosinophils (%) (Auto) 1.2 % (0.0-3.0) Basophils (%) (Auto) 0.6 % (0.0-2.0) Sodium Level 148 MMOL/L (136-145) H Potassium Level 5.2 MMOL/L (3.5-5.1) H Chloride Level 118 MMOL/L (98-107) H Carbon Dioxide Level 21 MMOL/L (21-32) Anion Gap 9 mmol/L (5-15) Blood Urea Nitrogen 112 mg/dL (7-18) H Creatinine 1.7 MG/DL (0.55-1.30) H Estimat Glomerular Filtration Rate mL/min (>60) Glucose Level 113 MG/DL (74-106) H Hemoglobin A1c 7.0 % (4.3-6.0) H Calcium Level 10.1 MG/DL (8.5-10.1) Total Bilirubin 0.3 MG/DL (0.2-1.0) Aspartate Amino Transf (AST/SGOT) 13 U/L (15-37) L Alanine Aminotransferase (ALT/SGPT) 9 U/L (12-78) L Alkaline Phosphatase 87 U/L (46-116) Total Protein 7.3 G/DL (6.4-8.2) Albumin 2.4 G/DL (3.4-5.0) L Globulin 4.9 g/dL Albumin/Globulin Ratio 0.5 (1.0-2.7) L Triglycerides Level 81 MG/DL (30-150) Cholesterol Level 141 MG/DL (< 200) LDL Cholesterol 100 mg/dL (<100) HDL Cholesterol 33 MG/DL (40-60) L Cholesterol/HDL Ratio 4.3 (3.3-4.4) Thyroid Stimulating Hormone (TSH) 0.077 uiU/mL (0.358-3.740) Microbiology Date/Time Source Procedure Growth Status 03/03/19 16:38 Urine,Clean Catch Urine Culture - Preliminary Gram Negative Bacillus 1 Resulted 03/03/19 07:23 Urine,Clean Catch Urine Culture - Preliminary Gram Negative Bacillus 1 Resulted Intake and Output 03/03/19 03/04/19 19:00 07:00 Intake Total 3615 ml 1120 ml Output Total 2075 ml 1500 ml Balance 1540 ml -380 ml Intake Oral 360 ml 120 ml IV Total 3255 ml 1000 ml Output Urine Total 2075 ml 1500 ml # Voids 3 Objective General: No acute distress, awake and alert HEENT: NCAT, sclera anicteric, PERRL, EOMI. Neck: Supple, no significant jugular venous distention, Lungs: Fair inspiratory effort, clear to auscultation bilaterally, no Wheeze or Rales. Heart: Regular rate and rhythm, distant S1/S2, no murmur, Left side pacemaker. Abdomen: soft, nontender, nondistended. Normoactive bowel sounds. : Robertson cath. Extremities: No Cyanosis , clubbing or edema. Muscle atrophy. Neuro: A&O x 3, Able to move all extremities Skin: warm, no rash. Psych: Normal mood and affect Assessment/Plan Assessment/Plan 1. KENN / ATN on CRI. 2. Urinary tract infection. 3. Bladder cancer. 4. Hypertension. 5. Diabetes type 2. 6. AV conduction defect. 7. Alzheimer's dementia. 8. Left hydronephrosis. 9. severe dehydration. 10.Hyperkalemia. 11.Hyponatremia. TREATMENT: 1. Acute renal failure, Nephrology consultation has been obtained with Dr. Serna. The patient may require hemodialysis. We will follow recommendations of Nephrology. 2. Urinary tract infection as above. The patient has been placed empirically on ceftriaxone. Await urine culture results. 3. Bladder cancer. The patient is status post resection. 4. Hypertension. The patient is currently hypotensive. The patient will be given clonidine p.r.n. 5. Diabetes type 2. The patient has been placed on a NovoLog sliding scale. 6. AV conduction defect. 7. Alzheimer's dementia. 8. Left hydronephrosis. The patient is status post left ureteral stent placed on 12/31/2018. IVF: D5W Monitor labs and cultures DC telemetry Jaziel Lowe MD Mar 04, 2019 15:04
--- NOTE | 2019-03-04 15:42 | NUR ---
CASE MANAGEMENT:REVIEW 83 YR OLD MALE BIBA FROM [facility] CC: ABNORMAL LABS SI: HYPERKALEMIA 97.5 89 18 84/51 92% ON RA K+6.4 IS: 500CC NS BOLUS 1L NS BOLUS IV ROCEPHIN IV CA GLUCONATE IV INSULIN IV D50 IV NAHCO3 KAYEXALATE PO URINE CX ABD US CXR : TO TELEMETRY DCP: RETURN TO SNF INTERQUAL CRITERIA MET
[2019-03-04 16:00] VITALS: BP 99/61
[2019-03-04] MEDS ORDERED: Nateglinide 60mg tab ORAL SCH (16:30)
--- NOTE | 2019-03-04 17:08 | NUR ---
NURSE NOTES: Received report from DONELL Fernandez (tele) with stable condition. pt is breathing regular and unlabored. Denies pain at this time. VSS. sided rails are padded. bed in lowest position. call light within reach at all time. will continue to monitor.
--- NOTE | 2019-03-04 17:13 | NUR ---
NURSE NOTES: patient transferred to room 402 bed 1 ( med-Surg) as ordered vital signs stable, no belonging. report given to Pauly MARLEY
[2019-03-04] MEDS ORDERED: Morphine Sulfate 2mg/ml Inj(IV/IM USE ONLY) IVP PRN (17:30)
[2019-03-04] MEDS ORDERED: LORazepam Inj 2mg/ml 1ml IV PRN (17:30)
--- NOTE | 2019-03-04 19:09 | NUR ---
HAND-OFF: Report given to DONELL Lui.
--- NOTE | 2019-03-04 19:55 | NUR ---
NURSE NOTES: Received patient in bed, awake, alert, oriented x2/3, calm mood, follows commands, bed bound, fall risk/precautions, IV site clean dry, intact. No acute distress noted, VSS, afebrile, call light is within reach, bed is in low position, locked and alarm is on. Will continue to monitor for safety and comfort.
[2019-03-04 20:00] VITALS: BP 112/63
[2019-03-04] MEDS: Tamsulosin 0.4mg cap ORAL SCH (20:30)
[2019-03-04] MEDS ORDERED: FERROUS SU220 MG/51 PO (20:34)
[2019-03-04] MEDS ORDERED: PRO-STAT LIQUID30 ML ORAL (20:34)
[2019-03-04] MEDS ORDERED: MULTIVITAMINS1 EAC8 ORAL (20:34)
[2019-03-04] MEDS ORDERED: Miralax 17gm pkt ORAL PRN (21:00)
[2019-03-04] MEDS ORDERED: Zolpidem 5mg tab ORAL PRN (21:00)
[2019-03-05 00:25] VITALS: BP 110/57
--- NOTE | 2019-03-05 03:08 | NUR ---
NURSE NOTES: Received a call from the lab, patient is positive for VRE rectum, notified /Dr. Lowe.
[2019-03-05 04:00] VITALS: BP 102/50
--- NOTE | 2019-03-05 05:02 | NUR ---
NURSE NOTES: Notified by the laboratory mechanical technician, patient is positive for ESBL in the urine. MD is notified.
[2019-03-05 05:46] LABS: BASOPHILS % (AUTO) 0.8 % (0.0-2.0); EOSINOPHILS % (AUTO) 1.5 % (0.0-3.0); HEMATOCRIT 35.9 % (42.0-52.0); HEMOGLOBIN 11.8 G/DL (14.2-18.0); LYMPHOCYTES % (AUTO) 14.1 % (20.0-45.0); MEAN CORPUSCULAR VOLUME 87 FL (80-99); NEUTROPHILS % (AUTO) 76.7 % (45.0-75.0); PLATELET COUNT 169 K/UL (150-450); RED BLOOD COUNT 4.12 M/UL (4.70-6.10); RED CELL DISTRIBUTION WIDTH 15.4 % (11.6-14.8); WHITE BLOOD COUNT 9.4 K/UL (4.8-10.8)
[2019-03-05] MEDS: Nateglinide 60mg tab ORAL SCH ×3 (06:08→16:55)
[2019-03-05] MEDS: NovoLOG Insulin Flexpen SUBQ SCH ×4 (06:18→21:00)
[2019-03-05 06:34] LABS: ALANINE AMINOTRANSFERASE 6 U/L (12-78); ALBUMIN 2.6 G/DL (3.4-5.0); ALBUMIN/GLOBULIN RATIO 0.5 (1.0-2.7); ALKALINE PHOSPHATASE 85 U/L (46-116); ASPARTATE AMINO TRANSFERASE 11 U/L (15-37); BILIRUBIN,TOTAL 0.4 MG/DL (0.2-1.0); BLOOD UREA NITROGEN 74 mg/dL (7-18); CALCIUM 9.7 MG/DL (8.5-10.1); CARBON DIOXIDE 23 MMOL/L (21-32); CREATINE KINASE 28 U/L (26-308); CREATININE 1.2 MG/DL (0.55-1.30)
--- NOTE | 2019-03-05 06:44 | NUR ---
HAND-OFF: Report given to Dina VARGAS.
[2019-03-05 06:48] LABS: CHLORIDE 109 MMOL/L (98-107); POTASSIUM 4.4 MMOL/L (3.5-5.1); SODIUM 141 MMOL/L (136-145)
[2019-03-05 06:53] LABS: GAMMA GLUTAMYL TRANSPEPTIDASE < 3 U/L (5-85)
--- NOTE | 2019-03-05 07:24 | Pulmonology Progress Note ---
Assessment/Plan Problems: (1) Acute metabolic encephalopathy (2) Bladder neoplasm (3) Hyperkalemia (4) KENN (acute kidney injury) (5) Diabetes mellitus (6) HTN (hypertension) (7) Alzheimer's dementia (8) Chronic cerebrovascular accident (CVA) Assessment/Plan K is lower, normal today bun/creatinine better iv fluids at 100 cc/hour check K daily symptomatic treatment pain control consider comfort care Subjective ROS Limited/Unobtainable: No Constitutional: Reports: no symptoms HEENT: Repors: no symptoms Respiratory: Reports: no symptoms Allergies: Coded Allergies: No Known Allergies (Unverified , 04/09/16) Objective Last 24 Hour Vital Signs Date Time Temp Pulse Resp B/P (MAP) Pulse Ox O2 Delivery O2 Flow Rate FiO2 03/05/19 04:00 96.8 74 20 102/50 (67) 03/05/19 00:25 97.2 71 20 110/57 (74) 03/04/19 21:00 Room Air 03/04/19 20:00 97.8 91 19 112/63 (79) 91 03/04/19 16:00 97.8 75 20 99/61 (74) 98 03/04/19 12:00 97.7 81 18 97/52 (67) 98 03/04/19 12:00 86 03/04/19 09:13 Room Air 03/04/19 08:24 97.3 53 18 92/60 (71) 95 03/04/19 08:00 74 Intake and Output 03/04/19 03/05/19 19:00 07:00 Intake Total 860 ml Output Total 1000 ml Balance -140 ml Intake Oral 260 ml IV Total 600 ml Output Urine Total 1000 ml # Bowel Movements 1 General Appearance: cachetic HEENT: normocephalic, atraumatic Respiratory/Chest: chest wall non-tender, lungs clear Cardiovascular: normal peripheral pulses, normal rate, regular rhythm Abdomen: normal bowel sounds, no organomegaly, non distended Extremities: no cyanosis 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 Complete 03/03/19 16:38 Urine,Clean Catch Urine Culture - Final Escherichia Coli - Esbl Complete 03/03/19 07:23 Urine,Clean Catch Urine Culture - Final Escherichia Coli - Esbl Complete 03/03/19 17:30 Rectum VRE Culture - Final Enterococcus Faecalis - Vre Resulted 03/03/19 17:30 Rectum Pending Resulted Laboratory Tests 03/05/19 05:10: White Blood Count 9.4, Red Blood Count 4.12L, Hemoglobin 11.8L, Hematocrit 35.9L , Mean Corpuscular Volume 87, Mean Corpuscular Hemoglobin 28.8, Mean Corpuscular Hemoglobin Concent 33.0, Red Cell Distribution Width 15.4H, Platelet Count 169, Mean Platelet Volume 5.0L, Neutrophils (%) (Auto) 76.7H, Lymphocytes (%) (Auto) 14.1L, Monocytes (%) (Auto) 7.0, Eosinophils (%) (Auto) 1.5, Basophils (%) (Auto) 0.8, Sodium Level 141, Potassium Level 4.4, Chloride Level 109H, Carbon Dioxide Level 23, Blood Urea Nitrogen 74H, Creatinine 1.2, Estimat Glomerular Filtration Rate , Glucose Level 135H, Uric Acid 5.8, Calcium Level 9.7, Phosphorus Level 3.0, Magnesium Level 1.4L, Total Bilirubin 0.4, Gamma Glutamyl Transpeptidase < 3L, Aspartate Amino Transf (AST/SGOT) 11L, Alanine Aminotransferase (ALT/SGPT) 6L, Alkaline Phosphatase 85, Total Creatine Kinase 28, C-Reactive Protein, Quantitative 5.5H, Pro-B-Type Natriuretic Peptide 831H, Total Protein 7.4, Albumin 2.6L, Globulin 4.8, Albumin/Globulin Ratio 0.5L, Vitamin B12 Level 811, Folate 5.9L Current Medications Medications (Trade) Dose Ordered Sig/Levi Route PRN Reason Start Time Stop Time Status Last Admin Dose Admin Acetaminophen (Tylenol) 650 mg Q4H PRN ORAL T>100.5 03/04/19 17:30 04/02/19 17:29 Clonidine HCl (Catapres Tab) 0.1 mg Q4H PRN ORAL SBP > 160mmHg 03/04/19 17:30 04/02/19 17:29 Dextrose 1,000 ml @ 100 mls/hr Q10H IV 03/04/19 17:15 04/03/19 12:14 03/05/19 03:23 Dextrose (Dextrose 50%) 25 ml Q30M PRN IV Hypoglycemia 03/04/19 17:30 04/02/19 10:29 Dextrose (Dextrose 50%) 50 ml Q30M PRN IV Hypoglycemia 03/04/19 17:30 04/02/19 10:29 Docusate Sodium (Colace) 100 mg THREE TIMES A DAY ORAL 03/05/19 09:00 04/04/19 08:59 Finasteride (Proscar) 5 mg DAILY ORAL 03/05/19 09:00 04/03/19 08:59 Heparin Sodium (Porcine) (Heparin 5000 units/ml) 5,000 units EVERY 12 HOURS SUBQ 03/04/19 21:00 04/02/19 20:59 03/04/19 20:31 Insulin Aspart (NovoLOG) BEFORE MEALS AND HS SUBQ 03/04/19 21:00 04/02/19 11:29 03/04/19 21:18 Lorazepam (Ativan 2mg/ml 1ml) 0.5 mg Q4H PRN IV For Anxiety 03/04/19 17:30 03/10/19 17:29 Morphine Sulfate (Morphine Sulfate) 1 mg Q4H PRN IVP PAIN 4-10 03/04/19 17:30 03/10/19 17:29 03/05/19 03:30 Nateglinide (Starlix) 60 mg TIAC ORAL 03/05/19 06:30 04/03/19 16:29 03/05/19 06:08 Ondansetron HCl (Zofran) 4 mg Q6H PRN IVP Nausea & Vomiting 03/04/19 17:30 04/02/19 17:29 Pantoprazole (Protonix) 40 mg EVERY 12 HOURS ORAL 03/04/19 21:00 04/03/19 20:59 03/04/19 20:30 Polyethylene Glycol (Miralax) 17 gm HSPRN PRN ORAL Constipation 03/04/19 21:00 04/02/19 20:59 Tamsulosin HCl (Flomax) 0.4 mg BEDTIME ORAL 03/04/19 21:00 04/02/19 20:59 03/04/19 20:30 Zolpidem Tartrate (Ambien) 5 mg HSPRN PRN ORAL Insomnia 03/04/19 21:00 03/10/19 20:59 Og Hinkle MD Mar 05, 2019 07:24
[2019-03-05 08:00] VITALS: BP 145/57
--- NOTE | 2019-03-05 08:15 | NUR ---
NURSE NOTES: Received patient in bed, awake, alert, oriented x3, calm and comfortable, follows commands, fall risk/precautions, IV site patent, dry and, intact. No acute distress noted. call light is within reach, bed is in low position, locked and alarm is on. Will continue to monitor for safety and comfort.
[2019-03-05] MEDS: Docusate 100mg cap ORAL SCH ×3 (08:18→16:57)
[2019-03-05] MEDS: Heparin 5000 units/ml inj SUBQ SCH ×2 (08:19→20:52)
[2019-03-05] MEDS ORDERED: 1/2 NS 1000ml IV ONE (09:54)
--- NOTE | 2019-03-05 11:15 | Nephrology Progress Note ---
Assessment/Plan Problem List: (1) Hyperkalemia (2) KENN (acute kidney injury) (3) HTN (hypertension) (4) Diabetes mellitus (5) Hydronephrosis (6) Bladder neoplasm Assessment Acute renal failure- Dehydration , Hyperkalemia s/p Left nephrostomy tube dislodgment requiring stent placement h/o UTI with Neha/pyelonephritis Bladder cancer, extensive stage Left-sided hydronephrosis with mild to moderate right-sided hydronephrosis in December 2018- status post cystoscopy, urethral calibration, bilateral retrograde pyelograms, dilation of left ureter and placement of left ureteral stent, transurethral resection and biopsies of extensive bladder tumors, and extensive fulguration of bladder mucosa. BPH Neurogenic bladder History of CVA Alzheimer's dementia AV conduction defect Hypertension Diabetes mellitus Plan Hydrate- Assure patency of urinary outflow monitor renal parameters and electrolytes per order Subjective ROS Limited/Unobtainable: No Constitutional: Reports: other - more responsive Objective Objective Last 24 Hour Vital Signs Date Time Temp Pulse Resp B/P (MAP) Pulse Ox O2 Delivery O2 Flow Rate FiO2 03/05/19 08:00 97.5 87 20 145/57 (86) 93 03/05/19 04:00 96.8 74 20 102/50 (67) 03/05/19 00:25 97.2 71 20 110/57 (74) 03/04/19 21:00 Room Air 03/04/19 20:00 97.8 91 19 112/63 (79) 91 03/04/19 16:00 97.8 75 20 99/61 (74) 98 03/04/19 12:00 97.7 81 18 97/52 (67) 98 03/04/19 12:00 86 Intake and Output 03/04/19 03/05/19 18:59 06:59 Intake Total 980 ml Output Total 1000 ml Balance -20 ml Intake Oral 380 ml IV Total 600 ml Output Urine Total 1000 ml # Bowel Movements 1 Laboratory Tests 03/05/19 05:10: White Blood Count 9.4, Red Blood Count 4.12L, Hemoglobin 11.8L, Hematocrit 35.9L , Mean Corpuscular Volume 87, Mean Corpuscular Hemoglobin 28.8, Mean Corpuscular Hemoglobin Concent 33.0, Red Cell Distribution Width 15.4H, Platelet Count 169, Mean Platelet Volume 5.0L, Neutrophils (%) (Auto) 76.7H, Lymphocytes (%) (Auto) 14.1L, Monocytes (%) (Auto) 7.0, Eosinophils (%) (Auto) 1.5, Basophils (%) (Auto) 0.8, Sodium Level 141, Potassium Level 4.4, Chloride Level 109H, Carbon Dioxide Level 23, Blood Urea Nitrogen 74H, Creatinine 1.2, Estimat Glomerular Filtration Rate , Glucose Level 135H, Uric Acid 5.8, Calcium Level 9.7, Phosphorus Level 3.0, Magnesium Level 1.4L, Total Bilirubin 0.4, Gamma Glutamyl Transpeptidase < 3L, Aspartate Amino Transf (AST/SGOT) 11L, Alanine Aminotransferase (ALT/SGPT) 6L, Alkaline Phosphatase 85, Total Creatine Kinase 28, C-Reactive Protein, Quantitative 5.5H, Pro-B-Type Natriuretic Peptide 831H, Total Protein 7.4, Albumin 2.6L, Globulin 4.8, Albumin/Globulin Ratio 0.5L, Vitamin B12 Level 811, Folate 5.9L Height (Feet): 5 Height (Inches): 7.00 Weight (Pounds): 165 General Appearance: no apparent distress Objective no change Bryan Serna MD Mar 05, 2019 11:15
[2019-03-05 12:00] VITALS: BP 145/57
[2019-03-05 16:00] VITALS: BP 102/63
--- NOTE | 2019-03-05 16:47 | NUR ---
PT Note PT matt completed, treatment initiated. Patient has muscle weakness, decreased ROM and balance, requiring extensive assist in mobility. Patient can benefit from PT services to increase his muscle strength, ROM and balance to improve his functional mobility. Addendum: 03/05/19 at 1648 by PARVIZ CHAVEZ PT Amended: Links added.
--- NOTE | 2019-03-05 17:15 | Internal Med Progress Note ---
Subjective Date of Service: Mar 05, 2019 Physician Name Jean-Claude Peter Attending Physician Jaziel Lowe MD Current Medications Medications (Trade) Dose Ordered Sig/Levi Route PRN Reason Start Time Stop Time Status Last Admin Dose Admin Acetaminophen (Tylenol) 650 mg Q4H PRN ORAL T>100.5 03/04/19 17:30 04/02/19 17:29 Clonidine HCl (Catapres Tab) 0.1 mg Q4H PRN ORAL SBP > 160mmHg 03/04/19 17:30 04/02/19 17:29 Dextrose 1,000 ml @ 60 mls/hr [id number] IV 03/05/19 10:00 04/03/19 09:59 03/05/19 10:00 Dextrose (Dextrose 50%) 25 ml Q30M PRN IV Hypoglycemia 03/04/19 17:30 04/02/19 10:29 Dextrose (Dextrose 50%) 50 ml Q30M PRN IV Hypoglycemia 03/04/19 17:30 04/02/19 10:29 Docusate Sodium (Colace) 100 mg THREE TIMES A DAY ORAL 03/05/19 09:00 04/04/19 08:59 03/05/19 16:57 Finasteride (Proscar) 5 mg DAILY ORAL 03/05/19 09:00 04/03/19 08:59 03/05/19 08:18 Heparin Sodium (Porcine) (Heparin 5000 units/ml) 5,000 units EVERY 12 HOURS SUBQ 03/04/19 21:00 04/02/19 20:59 03/05/19 08:19 Insulin Aspart (NovoLOG) BEFORE MEALS AND HS SUBQ 03/04/19 21:00 04/02/19 11:29 03/05/19 16:56 Lorazepam (Ativan 2mg/ml 1ml) 0.5 mg Q4H PRN IV For Anxiety 03/04/19 17:30 03/10/19 17:29 Morphine Sulfate (Morphine Sulfate) 1 mg Q4H PRN IVP PAIN 4-10 03/04/19 17:30 03/10/19 17:29 03/05/19 03:30 Nateglinide (Starlix) 60 mg TIAC ORAL 03/05/19 06:30 04/03/19 16:29 03/05/19 16:55 Ondansetron HCl (Zofran) 4 mg Q6H PRN IVP Nausea & Vomiting 03/04/19 17:30 04/02/19 17:29 Pantoprazole (Protonix) 40 mg EVERY 12 HOURS ORAL 03/04/19 21:00 04/03/19 20:59 03/05/19 08:18 Polyethylene Glycol (Miralax) 17 gm HSPRN PRN ORAL Constipation 03/04/19 21:00 04/02/19 20:59 Tamsulosin HCl (Flomax) 0.4 mg BEDTIME ORAL 03/04/19 21:00 04/02/19 20:59 03/04/19 20:30 Zolpidem Tartrate (Ambien) 5 mg HSPRN PRN ORAL Insomnia 03/04/19 21:00 03/10/19 20:59 Allergies: Coded Allergies: No Known Allergies (Unverified , 04/09/16) ROS Limited/Unobtainable: No Constitutional: Reports: no symptoms HEENT: Reports: no symptoms Cardiovascular: Reports: no symptoms Respiratory: Reports: no symptoms Gastrointestinal/Abdominal: Reports: no symptoms Genitourinary: Reports: no symptoms 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: Reports: no symptoms Subjective 83 YO M admitted with acute renal failure. Now UTI. Cover for Int Med-Dr Lowe Objective Last Vital Signs Date Time Temp Pulse Resp B/P (MAP) Pulse Ox O2 Delivery O2 Flow Rate FiO2 03/05/19 16:00 95.6 71 20 102/63 (76) 99 03/04/19 21:00 Room Air Laboratory Tests Test 03/05/19 05:10 White Blood Count 9.4 K/UL (4.8-10.8) Red Blood Count 4.12 M/UL (4.70-6.10) L Hemoglobin 11.8 G/DL (14.2-18.0) L Hematocrit 35.9 % (42.0-52.0) L Mean Corpuscular Volume 87 FL (80-99) Mean Corpuscular Hemoglobin 28.8 PG (27.0-31.0) Mean Corpuscular Hemoglobin Concent 33.0 G/DL (32.0-36.0) Red Cell Distribution Width 15.4 % (11.6-14.8) H Platelet Count 169 K/UL (150-450) Mean Platelet Volume 5.0 FL (6.5-10.1) L Neutrophils (%) (Auto) 76.7 % (45.0-75.0) H Lymphocytes (%) (Auto) 14.1 % (20.0-45.0) L Monocytes (%) (Auto) 7.0 % (1.0-10.0) Eosinophils (%) (Auto) 1.5 % (0.0-3.0) Basophils (%) (Auto) 0.8 % (0.0-2.0) Sodium Level 141 MMOL/L (136-145) Potassium Level 4.4 MMOL/L (3.5-5.1) Chloride Level 109 MMOL/L (98-107) H Carbon Dioxide Level 23 MMOL/L (21-32) Blood Urea Nitrogen 74 mg/dL (7-18) H Creatinine 1.2 MG/DL (0.55-1.30) Estimat Glomerular Filtration Rate mL/min (>60) Glucose Level 135 MG/DL (74-106) H Uric Acid 5.8 MG/DL (2.6-7.2) Calcium Level 9.7 MG/DL (8.5-10.1) Phosphorus Level 3.0 MG/DL (2.5-4.9) Magnesium Level 1.4 MG/DL (1.8-2.4) L Total Bilirubin 0.4 MG/DL (0.2-1.0) Gamma Glutamyl Transpeptidase < 3 U/L (5-85) L Aspartate Amino Transf (AST/SGOT) 11 U/L (15-37) L Alanine Aminotransferase (ALT/SGPT) 6 U/L (12-78) L Alkaline Phosphatase 85 U/L (46-116) Total Creatine Kinase 28 U/L (26-308) C-Reactive Protein, Quantitative 5.5 mg/dL (0.00-0.90) H Pro-B-Type Natriuretic Peptide 831 pg/mL (0-125) H Total Protein 7.4 G/DL (6.4-8.2) Albumin 2.6 G/DL (3.4-5.0) L Globulin 4.8 g/dL Albumin/Globulin Ratio 0.5 (1.0-2.7) L Vitamin B12 Level 811 PG/ML (193-986) Folate 5.9 NG/ML (8.6-58.9) L Microbiology Date/Time Source Procedure Growth Status 03/03/19 17:30 Nasal Nares MRSA Culture - Final NO METHICILLIN RESISTANT STAPH AUREUS... Complete 03/03/19 16:38 Urine,Clean Catch Urine Culture - Final Escherichia Coli - Esbl Complete 03/03/19 07:23 Urine,Clean Catch Urine Culture - Final Escherichia Coli - Esbl Complete 03/03/19 17:30 Rectum VRE Culture - Final Enterococcus Faecalis - Vre Resulted 03/03/19 17:30 Rectum Pending Resulted Intake and Output 03/04/19 03/05/19 19:00 07:00 Intake Total 860 ml 420 ml Output Total 1000 ml Balance -140 ml 420 ml Intake Oral 260 ml 120 ml IV Total 600 ml 300 ml Output Urine Total 1000 ml # Bowel Movements 1 Objective PHYSICAL EXAMINATION: GENERAL: The patient is a well-developed and well-nourished male, in no apparent distress. HEENT: Eyes, pupils are equal and responsive to light and accommodation. Extraocular movements are intact. NECK: Supple without lymphadenopathy. CHEST: Lungs are clear to auscultation bilaterally without wheezes or rales. CARDIOVASCULAR: Regular rhythm and rate. S1 and S2 are normal without murmurs, rubs, or gallops. ABDOMEN: Soft, nontender, and nondistended. Positive bowel sounds. No evidence of hepatosplenomegaly. Currently, no rebound or guarding noted. EXTREMITIES: Negative for clubbing, cyanosis, or edema. RECTAL/GENITAL: Not performed. NEUROLOGIC: Cranial nerves II through XII are grossly intact without focal deficits. Motor strength is 5/5 bilaterally. Deep tendon reflexes are 2+ plantar. Assessment/Plan Assessment/Plan ASSESSMENT: This is an 83-year-old male. 1. Acute renal failure. 2. Urinary tract infection=ESBL E. Coli 3. Bladder cancer. 4. Hypertension. 5. Diabetes type 2. 6. AV conduction defect. 7. Alzheimer's dementia. 8. Left hydronephrosis. TREATMENT: 1. Acute renal failure/urinary tract infection. The patient has been started empirically on intravenous ceftriaxone. Urine culture is pending. Await urine culture results. A Nephrology consultation has been obtained with Dr. Serna. The patient may require hemodialysis. We will follow recommendations of Nephrology. 2. Urinary tract infection=ESBL E. Coli. Antibiotics per ID, Dr Cordoba 3. Bladder cancer. The patient is status post resection. 4. Hypertension. The patient is currently hypotensive. The patient will be given clonidine p.r.n. 5. Diabetes type 2. The patient has been placed on a NovoLog sliding scale. 6. AV conduction defect. 7. Alzheimer's dementia. 8. Left hydronephrosis. The patient is status post left ureteral stent placed on 12/31/2018. Jean-Claude Peter MD Mar 05, 2019 17:15
[2019-03-05] MEDS: Ertapenem 1 GM in NS 55 ML IVPB SCH (18:00)
--- NOTE | 2019-03-05 19:04 | NUR ---
HAND-OFF: Report given to Sania.
--- NOTE | 2019-03-05 19:25 | NUR ---
NURSE NOTES: Received patient in bed, awake, alert, oriented x2/3, verbal, feeder, bed bound, F/C is in place, draining well, call light is within reach, bed is in low position, locked and alarm is on, will continue to assess for comfort and safety.
[2019-03-05 20:00] VITALS: BP_SYST 101; BP_SYST 109; BP_DIAS 42; BP_DIAS 68
[2019-03-05] MEDS: Tamsulosin 0.4mg cap ORAL SCH (20:50)
[2019-03-06] VITALS (7 sets, daily range): BP systolic 93–106; BP diastolic 43–59
[2019-03-06 06:11] LABS: BASOPHILS % (AUTO) 0.8 % (0.0-2.0); EOSINOPHILS % (AUTO) 1.1 % (0.0-3.0); HEMATOCRIT 28.1 % (42.0-52.0); HEMOGLOBIN 9.6 G/DL (14.2-18.0); MEAN CORPUSCULAR VOLUME 86 FL (80-99); MONOCYTES % (AUTO) 6.7 % (1.0-10.0); NEUTROPHILS % (AUTO) 74.5 % (45.0-75.0); PLATELET COUNT 171 K/UL (150-450); RED BLOOD COUNT 3.25 M/UL (4.70-6.10); RED CELL DISTRIBUTION WIDTH 15.4 % (11.6-14.8); WHITE BLOOD COUNT 8.5 K/UL (4.8-10.8)
[2019-03-06] MEDS: NovoLOG Insulin Flexpen SUBQ SCH ×4 (06:16→20:21)
[2019-03-06] MEDS: Nateglinide 60mg tab ORAL SCH ×3 (06:19→17:12)
[2019-03-06 06:31] LABS: ALANINE AMINOTRANSFERASE 6 U/L (12-78); ALBUMIN 2.3 G/DL (3.4-5.0); ALBUMIN/GLOBULIN RATIO 0.5 (1.0-2.7); ALKALINE PHOSPHATASE 73 U/L (46-116); ANION GAP 9 mmol/L (5-15); ASPARTATE AMINO TRANSFERASE 9 U/L (15-37); BILIRUBIN,TOTAL 0.4 MG/DL (0.2-1.0); BLOOD UREA NITROGEN 58 mg/dL (7-18); CALCIUM 9.2 MG/DL (8.5-10.1); CARBON DIOXIDE 22 MMOL/L (21-32); CHLORIDE 112 MMOL/L (98-107); CREATININE 1.3 MG/DL (0.55-1.30); PHOSPHORUS 2.9 MG/DL (2.5-4.9); POTASSIUM 3.9 MMOL/L (3.5-5.1); SODIUM 143 MMOL/L (136-145)
--- NOTE | 2019-03-06 06:47 | NUR ---
HAND-OFF: Report given to Joy MARLEY.
--- NOTE | 2019-03-06 07:35 | Pulmonology Progress Note ---
Assessment/Plan Problems: (1) Acute metabolic encephalopathy (2) Bladder neoplasm (3) Hyperkalemia (4) KENN (acute kidney injury) (5) Diabetes mellitus (6) HTN (hypertension) (7) Alzheimer's dementia (8) Chronic cerebrovascular accident (CVA) Assessment/Plan K is lower, normal today again bun/creatinine better iv fluids at 100 cc/hour check K daily symptomatic treatment pain control consider comfort care Subjective ROS Limited/Unobtainable: No Constitutional: Reports: no symptoms HEENT: Repors: no symptoms Respiratory: Reports: no symptoms Allergies: Coded Allergies: No Known Allergies (Unverified , 04/09/16) Objective Last 24 Hour Vital Signs Date Time Temp Pulse Resp B/P (MAP) Pulse Ox O2 Delivery O2 Flow Rate FiO2 03/06/19 04:00 97.5 71 20 103/43 (63) 71 03/06/19 00:00 98.5 70 18 100/51 (67) 70 03/05/19 21:56 Room Air 03/05/19 20:00 97.5 68 16 101/42 (61) 100 03/05/19 20:00 97.5 68 18 109/68 (82) 68 03/05/19 16:00 95.6 71 20 102/63 (76) 99 03/05/19 12:00 96.8 79 20 145/57 (86) 93 03/05/19 09:00 Room Air 03/05/19 08:00 97.5 87 20 145/57 (86) 93 Intake and Output 03/05/19 03/06/19 19:00 07:00 Intake Total 1320 ml 540 ml Output Total 1800 ml Balance 1320 ml -1260 ml Intake Oral 360 ml IV Total 960 ml 540 ml Output Urine Total 1800 ml General Appearance: WD/WN HEENT: normocephalic, atraumatic Respiratory/Chest: chest wall non-tender, lungs clear Cardiovascular: normal peripheral pulses, normal rate Abdomen: normal bowel sounds, soft, non tender Genitourinary: normal external genitalia Extremities: no clubbing Skin: no rash, no lesions Microbiology Date/Time Source Procedure Growth Status 03/03/19 17:30 Nasal Nares MRSA Culture - Final NO METHICILLIN RESISTANT STAPH AUREUS... Complete 03/03/19 16:38 Urine,Clean Catch Urine Culture - Final Escherichia Coli - Esbl Complete 03/03/19 17:30 Rectum VRE Culture - Final Enterococcus Faecalis - Vre Resulted 03/03/19 17:30 Rectum Pending Resulted Laboratory Tests 03/06/19 05:35: White Blood Count 8.5, Red Blood Count 3.25L, Hemoglobin 9.6L, Hematocrit 28.1L , Mean Corpuscular Volume 86, Mean Corpuscular Hemoglobin 29.4, Mean Corpuscular Hemoglobin Concent 34.1, Red Cell Distribution Width 15.4H, Platelet Count 171, Mean Platelet Volume 4.8L, Neutrophils (%) (Auto) 74.5, Lymphocytes (%) (Auto) 17.0L, Monocytes (%) (Auto) 6.7, Eosinophils (%) (Auto) 1.1, Basophils (%) (Auto) 0.8, Sodium Level 143, Potassium Level 3.9, Chloride Level 112H, Carbon Dioxide Level 22, Anion Gap 9, Blood Urea Nitrogen 58H, Creatinine 1.3, Estimat Glomerular Filtration Rate , Glucose Level 97, Calcium Level 9.2, Phosphorus Level 2.9, Magnesium Level 1.7L, Total Bilirubin 0.4, Aspartate Amino Transf (AST/SGOT) 9L, Alanine Aminotransferase (ALT/SGPT) 6L, Alkaline Phosphatase 73, Total Protein 6.5, Albumin 2.3L, Globulin 4.2, Albumin/ Globulin Ratio 0.5L Current Medications Medications (Trade) Dose Ordered Sig/Levi Route PRN Reason Start Time Stop Time Status Last Admin Dose Admin Acetaminophen (Tylenol) 650 mg Q4H PRN ORAL T>100.5 03/04/19 17:30 04/02/19 17:29 Clonidine HCl (Catapres Tab) 0.1 mg Q4H PRN ORAL SBP > 160mmHg 03/04/19 17:30 04/02/19 17:29 Dextrose 1,000 ml @ 60 mls/hr [id number] IV 03/05/19 10:00 04/03/19 09:59 03/06/19 04:49 Dextrose (Dextrose 50%) 25 ml Q30M PRN IV Hypoglycemia 03/04/19 17:30 04/02/19 10:29 Dextrose (Dextrose 50%) 50 ml Q30M PRN IV Hypoglycemia 03/04/19 17:30 04/02/19 10:29 Docusate Sodium (Colace) 100 mg THREE TIMES A DAY ORAL 03/05/19 09:00 04/04/19 08:59 03/05/19 16:57 Ertapenem 1 gm/ Sodium Chloride 55 ml @ 110 mls/hr Q24H IVPB 03/05/19 18:00 03/10/19 17:59 03/05/19 18:00 Finasteride (Proscar) 5 mg DAILY ORAL 03/05/19 09:00 04/03/19 08:59 03/05/19 08:18 Heparin Sodium (Porcine) (Heparin 5000 units/ml) 5,000 units EVERY 12 HOURS SUBQ 03/04/19 21:00 04/02/19 20:59 03/05/19 20:52 Insulin Aspart (NovoLOG) BEFORE MEALS AND HS SUBQ 03/04/19 21:00 04/02/19 11:29 03/05/19 21:00 Lorazepam (Ativan 2mg/ml 1ml) 0.5 mg Q4H PRN IV For Anxiety 03/04/19 17:30 03/10/19 17:29 Morphine Sulfate (Morphine Sulfate) 1 mg Q4H PRN IVP PAIN 4-10 03/04/19 17:30 03/10/19 17:29 03/05/19 03:30 Nateglinide (Starlix) 60 mg TIAC ORAL 03/05/19 06:30 04/03/19 16:29 03/06/19 06:19 Ondansetron HCl (Zofran) 4 mg Q6H PRN IVP Nausea & Vomiting 03/04/19 17:30 04/02/19 17:29 Pantoprazole (Protonix) 40 mg EVERY 12 HOURS ORAL 03/04/19 21:00 04/03/19 20:59 03/05/19 20:50 Polyethylene Glycol (Miralax) 17 gm HSPRN PRN ORAL Constipation 03/04/19 21:00 04/02/19 20:59 Tamsulosin HCl (Flomax) 0.4 mg BEDTIME ORAL 03/04/19 21:00 04/02/19 20:59 03/05/19 20:50 Zolpidem Tartrate (Ambien) 5 mg HSPRN PRN ORAL Insomnia 03/04/19 21:00 03/10/19 20:59 Og Hinkle MD Mar 06, 2019 07:35
--- NOTE | 2019-03-06 08:00 | NUR ---
NURSE NOTES: Patient alert to name,respirations unlabored. IV fluids infusing as ordered/Robertson catheter is in place and draining clear wes color urine.Patient assist. with breakfast.HOB elevated.Bed alarm is on,call light within reach.
[2019-03-06] MEDS: Docusate 100mg cap ORAL SCH ×3 (09:34→18:35)
[2019-03-06] MEDS: Heparin 5000 units/ml inj SUBQ SCH ×2 (09:35→20:15)
--- NOTE | 2019-03-06 15:05 | Nephrology Progress Note ---
Assessment/Plan Problem List: (1) Hyperkalemia (2) KENN (acute kidney injury) (3) HTN (hypertension) (4) Diabetes mellitus (5) Hydronephrosis (6) Bladder neoplasm Assessment Acute renal failure- Dehydration , Hyperkalemia s/p Left nephrostomy tube dislodgment requiring stent placement h/o UTI with Neha/pyelonephritis Bladder cancer, extensive stage Left-sided hydronephrosis with mild to moderate right-sided hydronephrosis in December 2018- status post cystoscopy, urethral calibration, bilateral retrograde pyelograms, dilation of left ureter and placement of left ureteral stent, transurethral resection and biopsies of extensive bladder tumors, and extensive fulguration of bladder mucosa. BPH Neurogenic bladder History of CVA Alzheimer's dementia AV conduction defect Hypertension Diabetes mellitus Plan Hydrate- Assure patency of urinary outflow monitor renal parameters and electrolytes per order Subjective ROS Limited/Unobtainable: No Constitutional: Reports: malaise Objective Objective Last 24 Hour Vital Signs Date Time Temp Pulse Resp B/P (MAP) Pulse Ox O2 Delivery O2 Flow Rate FiO2 03/06/19 12:00 97.9 73 16 97/57 (70) 03/06/19 09:30 78 103/59 (74) 03/06/19 09:00 Room Air 03/06/19 08:00 97.4 66 16 93/45 (61) 03/06/19 04:00 97.5 71 20 103/43 (63) 71 03/06/19 00:00 98.5 70 18 100/51 (67) 70 03/05/19 21:56 Room Air 03/05/19 20:00 97.5 68 16 101/42 (61) 100 03/05/19 20:00 97.5 68 18 109/68 (82) 68 03/05/19 16:00 95.6 71 20 102/63 (76) 99 Intake and Output 03/05/19 03/06/19 18:59 06:59 Intake Total 1380 ml 600 ml Output Total 1800 ml Balance 1380 ml -1200 ml Intake Oral 480 ml IV Total 900 ml 600 ml Output Urine Total 1800 ml Laboratory Tests 03/06/19 05:35: White Blood Count 8.5, Red Blood Count 3.25L, Hemoglobin 9.6L, Hematocrit 28.1L , Mean Corpuscular Volume 86, Mean Corpuscular Hemoglobin 29.4, Mean Corpuscular Hemoglobin Concent 34.1, Red Cell Distribution Width 15.4H, Platelet Count 171, Mean Platelet Volume 4.8L, Neutrophils (%) (Auto) 74.5, Lymphocytes (%) (Auto) 17.0L, Monocytes (%) (Auto) 6.7, Eosinophils (%) (Auto) 1.1, Basophils (%) (Auto) 0.8, Sodium Level 143, Potassium Level 3.9, Chloride Level 112H, Carbon Dioxide Level 22, Anion Gap 9, Blood Urea Nitrogen 58H, Creatinine 1.3, Estimat Glomerular Filtration Rate , Glucose Level 97, Calcium Level 9.2, Phosphorus Level 2.9, Magnesium Level 1.7L, Total Bilirubin 0.4, Aspartate Amino Transf (AST/SGOT) 9L, Alanine Aminotransferase (ALT/SGPT) 6L, Alkaline Phosphatase 73, Total Protein 6.5, Albumin 2.3L, Globulin 4.2, Albumin/ Globulin Ratio 0.5L Height (Feet): 5 Height (Inches): 7.00 Weight (Pounds): 165 General Appearance: no apparent distress Objective no change Bryan Serna MD Mar 06, 2019 15:05
--- NOTE | 2019-03-06 16:05 | Internal Med Progress Note ---
Subjective Date of Service: Mar 06, 2019 Physician Name Jean-Claude Peter Attending Physician Jaziel Lowe MD Current Medications Medications (Trade) Dose Ordered Sig/Levi Route PRN Reason Start Time Stop Time Status Last Admin Dose Admin Acetaminophen (Tylenol) 650 mg Q4H PRN ORAL T>100.5 03/04/19 17:30 04/02/19 17:29 Clonidine HCl (Catapres Tab) 0.1 mg Q4H PRN ORAL SBP > 160mmHg 03/04/19 17:30 04/02/19 17:29 Dextrose 1,000 ml @ 60 mls/hr [id number] IV 03/05/19 10:00 04/03/19 09:59 03/06/19 04:49 Dextrose (Dextrose 50%) 25 ml Q30M PRN IV Hypoglycemia 03/04/19 17:30 04/02/19 10:29 Dextrose (Dextrose 50%) 50 ml Q30M PRN IV Hypoglycemia 03/04/19 17:30 04/02/19 10:29 Docusate Sodium (Colace) 100 mg THREE TIMES A DAY ORAL 03/05/19 09:00 04/04/19 08:59 03/06/19 13:34 Ertapenem 1 gm/ Sodium Chloride 55 ml @ 110 mls/hr Q24H IVPB 03/05/19 18:00 03/11/19 17:59 03/05/19 18:00 Finasteride (Proscar) 5 mg DAILY ORAL 03/05/19 09:00 04/03/19 08:59 03/06/19 09:34 Heparin Sodium (Porcine) (Heparin 5000 units/ml) 5,000 units EVERY 12 HOURS SUBQ 03/04/19 21:00 04/02/19 20:59 03/06/19 09:35 Insulin Aspart (NovoLOG) BEFORE MEALS AND HS SUBQ 03/04/19 21:00 04/02/19 11:29 03/06/19 12:04 Lorazepam (Ativan 2mg/ml 1ml) 0.5 mg Q4H PRN IV For Anxiety 03/04/19 17:30 03/10/19 17:29 Morphine Sulfate (Morphine Sulfate) 1 mg Q4H PRN IVP PAIN 4-10 03/04/19 17:30 03/10/19 17:29 03/05/19 03:30 Nateglinide (Starlix) 60 mg TIAC ORAL 03/05/19 06:30 04/03/19 16:29 03/06/19 12:07 Ondansetron HCl (Zofran) 4 mg Q6H PRN IVP Nausea & Vomiting 03/04/19 17:30 04/02/19 17:29 Pantoprazole (Protonix) 40 mg EVERY 12 HOURS ORAL 03/04/19 21:00 04/03/19 20:59 03/06/19 09:34 Polyethylene Glycol (Miralax) 17 gm HSPRN PRN ORAL Constipation 03/04/19 21:00 04/02/19 20:59 Tamsulosin HCl (Flomax) 0.4 mg BEDTIME ORAL 03/04/19 21:00 04/02/19 20:59 03/05/19 20:50 Zolpidem Tartrate (Ambien) 5 mg HSPRN PRN ORAL Insomnia 03/04/19 21:00 03/10/19 20:59 Allergies: Coded Allergies: No Known Allergies (Unverified , 04/09/16) ROS Limited/Unobtainable: No Constitutional: Reports: no symptoms HEENT: Reports: no symptoms Cardiovascular: Reports: no symptoms Respiratory: Reports: no symptoms Gastrointestinal/Abdominal: Reports: no symptoms Genitourinary: Reports: no symptoms 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: Reports: no symptoms Subjective 83 YO M admitted with acute renal failure. Now UTI. Cover for Int Uriel-Dr Lowe Objective Last Vital Signs Date Time Temp Pulse Resp B/P (MAP) Pulse Ox O2 Delivery O2 Flow Rate FiO2 03/06/19 12:00 97.9 73 16 97/57 (70) 03/06/19 09:00 Room Air 03/05/19 20:00 100 Laboratory Tests Test 03/06/19 05:35 White Blood Count 8.5 K/UL (4.8-10.8) Red Blood Count 3.25 M/UL (4.70-6.10) L Hemoglobin 9.6 G/DL (14.2-18.0) L Hematocrit 28.1 % (42.0-52.0) L Mean Corpuscular Volume 86 FL (80-99) Mean Corpuscular Hemoglobin 29.4 PG (27.0-31.0) Mean Corpuscular Hemoglobin Concent 34.1 G/DL (32.0-36.0) Red Cell Distribution Width 15.4 % (11.6-14.8) H Platelet Count 171 K/UL (150-450) Mean Platelet Volume 4.8 FL (6.5-10.1) L Neutrophils (%) (Auto) 74.5 % (45.0-75.0) Lymphocytes (%) (Auto) 17.0 % (20.0-45.0) L Monocytes (%) (Auto) 6.7 % (1.0-10.0) Eosinophils (%) (Auto) 1.1 % (0.0-3.0) Basophils (%) (Auto) 0.8 % (0.0-2.0) Sodium Level 143 MMOL/L (136-145) Potassium Level 3.9 MMOL/L (3.5-5.1) Chloride Level 112 MMOL/L (98-107) H Carbon Dioxide Level 22 MMOL/L (21-32) Anion Gap 9 mmol/L (5-15) Blood Urea Nitrogen 58 mg/dL (7-18) H Creatinine 1.3 MG/DL (0.55-1.30) Estimat Glomerular Filtration Rate mL/min (>60) Glucose Level 97 MG/DL (74-106) Calcium Level 9.2 MG/DL (8.5-10.1) Phosphorus Level 2.9 MG/DL (2.5-4.9) Magnesium Level 1.7 MG/DL (1.8-2.4) L Total Bilirubin 0.4 MG/DL (0.2-1.0) Aspartate Amino Transf (AST/SGOT) 9 U/L (15-37) L Alanine Aminotransferase (ALT/SGPT) 6 U/L (12-78) L Alkaline Phosphatase 73 U/L (46-116) Total Protein 6.5 G/DL (6.4-8.2) Albumin 2.3 G/DL (3.4-5.0) L Globulin 4.2 g/dL Albumin/Globulin Ratio 0.5 (1.0-2.7) L Microbiology Date/Time Source Procedure Growth Status 03/03/19 17:30 Nasal Nares MRSA Culture - Final NO METHICILLIN RESISTANT STAPH AUREUS... Complete 03/03/19 16:38 Urine,Clean Catch Urine Culture - Final Escherichia Coli - Esbl Complete 03/03/19 17:30 Rectum VRE Culture - Final Enterococcus Faecalis - Vre Resulted 03/03/19 17:30 Rectum Pending Resulted Intake and Output 03/05/19 03/06/19 18:59 06:59 Intake Total 1380 ml 600 ml Output Total 1800 ml Balance 1380 ml -1200 ml Intake Oral 480 ml IV Total 900 ml 600 ml Output Urine Total 1800 ml Objective PHYSICAL EXAMINATION: GENERAL: The patient is a well-developed and well-nourished male, in no apparent distress. HEENT: Eyes, pupils are equal and responsive to light and accommodation. Extraocular movements are intact. NECK: Supple without lymphadenopathy. CHEST: Lungs are clear to auscultation bilaterally without wheezes or rales. CARDIOVASCULAR: Regular rhythm and rate. S1 and S2 are normal without murmurs, rubs, or gallops. ABDOMEN: Soft, nontender, and nondistended. Positive bowel sounds. No evidence of hepatosplenomegaly. Currently, no rebound or guarding noted. EXTREMITIES: Negative for clubbing, cyanosis, or edema. RECTAL/GENITAL: Not performed. NEUROLOGIC: Cranial nerves II through XII are grossly intact without focal deficits. Motor strength is 5/5 bilaterally. Deep tendon reflexes are 2+ plantar. Assessment/Plan Assessment/Plan ASSESSMENT: This is an 83-year-old male. 1. Acute renal failure. 2. Urinary tract infection=ESBL E. Coli 3. Bladder cancer. 4. Hypertension. 5. Diabetes type 2. 6. AV conduction defect. 7. Alzheimer's dementia. 8. Left hydronephrosis. TREATMENT: 1. Acute renal failure/urinary tract infection. The patient has been started empirically on intravenous ceftriaxone. Urine culture is pending. Await urine culture results. A Nephrology consultation has been obtained with Dr. Serna. The patient may require hemodialysis. We will follow recommendations of Nephrology. 2. Urinary tract infection=ESBL E. Coli. ABX=Ertapenem per ID, Dr Cordoba 3. Bladder cancer. The patient is status post resection. 4. Hypertension. The patient is currently hypotensive. The patient will be given clonidine p.r.n. 5. Diabetes type 2. The patient has been placed on a NovoLog sliding scale. 6. AV conduction defect. 7. Alzheimer's dementia. 8. Left hydronephrosis. The patient is status post left ureteral stent placed on 12/31/2018. Jean-Claude Peter MD Mar 06, 2019 16:05
--- NOTE | 2019-03-06 18:00 | NUR ---
NURSE NOTES: patient resting,no complaints at this time,hernandez remains intact and draining clear urine . IV continues to infuse.Bed alarm is on,call light within reach. .
[2019-03-06] MEDS: Ertapenem 1 GM in NS 55 ML IVPB SCH (18:33)
--- NOTE | 2019-03-06 19:09 | NUR ---
HAND-OFF: Report given to Mariam MARLEY.
--- NOTE | 2019-03-06 19:19 | NUR ---
NURSE NOTES: Received patient in bed, awake, alert, oriented x2/3, bed bound, F/C in place, draining well. IV site clean dry and intact. Call light is within reach, bed is in low position, locked and alarm is on. Will continue to monitor for safety and comfort.
[2019-03-06] MEDS: Tamsulosin 0.4mg cap ORAL SCH (20:14)
[2019-03-07] VITALS: BP 109/54
[2019-03-07 04:00] VITALS: BP 120/61
[2019-03-07] MEDS: NovoLOG Insulin Flexpen SUBQ SCH ×4 (06:10→21:00)
[2019-03-07] MEDS: Nateglinide 60mg tab ORAL SCH ×3 (06:26→16:26)
--- NOTE | 2019-03-07 06:55 | NUR ---
HAND-OFF: Report given to Mayra MARLEY.
[2019-03-07 07:06] LABS: BASOPHILS % (AUTO) 0.9 % (0.0-2.0); EOSINOPHILS % (AUTO) 2.4 % (0.0-3.0); HEMATOCRIT 27.6 % (42.0-52.0); HEMOGLOBIN 9.4 G/DL (14.2-18.0); LYMPHOCYTES % (AUTO) 24.4 % (20.0-45.0); MEAN CORPUSCULAR VOLUME 85 FL (80-99); MONOCYTES % (AUTO) 5.8 % (1.0-10.0); NEUTROPHILS % (AUTO) 66.5 % (45.0-75.0); PLATELET COUNT 143 K/UL (150-450); RED BLOOD COUNT 3.23 M/UL (4.70-6.10); WHITE BLOOD COUNT 7.9 K/UL (4.8-10.8)
--- NOTE | 2019-03-07 07:20 | NUR ---
NURSE NOTES: received patient resting comfortably in bed, patient, awake, alert oriented x2-3, No sign of distress, denies pain or discomfort, IV fluids infusing well, hernandez catheter is in place and draining clear wes color urine.on fall and aspiration precaution , turn q2h for comfort and good circulation, HOB elevated.Bed alarm is on, kept clean dry and comfortable, needs met and anticipated, call light w/n reach husam robbins
[2019-03-07 07:30] LABS: ALANINE AMINOTRANSFERASE 8 U/L (12-78); ALBUMIN 2.1 G/DL (3.4-5.0); ALBUMIN/GLOBULIN RATIO 0.5 (1.0-2.7); ALKALINE PHOSPHATASE 66 U/L (46-116); ANION GAP 7 mmol/L (5-15); ASPARTATE AMINO TRANSFERASE 13 U/L (15-37); BILIRUBIN,TOTAL 0.3 MG/DL (0.2-1.0); BLOOD UREA NITROGEN 44 mg/dL (7-18); CALCIUM 8.7 MG/DL (8.5-10.1); CARBON DIOXIDE 24 MMOL/L (21-32); CHLORIDE 109 MMOL/L (98-107); CREATININE 1.1 MG/DL (0.55-1.30); PHOSPHORUS 2.7 MG/DL (2.5-4.9); POTASSIUM 3.8 MMOL/L (3.5-5.1); SODIUM 140 MMOL/L (136-145)
[2019-03-07 08:00] VITALS: BP 110/64
[2019-03-07] MEDS: Docusate 100mg cap ORAL SCH ×3 (08:11→17:00)
[2019-03-07] MEDS: Heparin 5000 units/ml inj SUBQ SCH ×2 (08:14→21:00)
--- NOTE | 2019-03-07 10:05 | Nephrology Progress Note ---
Assessment/Plan Problem List: (1) Hyperkalemia (2) KENN (acute kidney injury) (3) HTN (hypertension) (4) Diabetes mellitus (5) Hydronephrosis (6) Bladder neoplasm Assessment Acute renal failure- Dehydration , Hyperkalemia s/p Left nephrostomy tube dislodgment requiring stent placement h/o UTI with Neha/pyelonephritis Bladder cancer, extensive stage Left-sided hydronephrosis with mild to moderate right-sided hydronephrosis in December 2018- status post cystoscopy, urethral calibration, bilateral retrograde pyelograms, dilation of left ureter and placement of left ureteral stent, transurethral resection and biopsies of extensive bladder tumors, and extensive fulguration of bladder mucosa. BPH Neurogenic bladder History of CVA Alzheimer's dementia AV conduction defect Hypertension Diabetes mellitus Plan Hydrate- Assure patency of urinary outflow monitor renal parameters and electrolytes per order- IV mag ordered ?DC planning? Subjective ROS Limited/Unobtainable: No Constitutional: Reports: malaise Objective Objective Last 24 Hour Vital Signs Date Time Temp Pulse Resp B/P (MAP) Pulse Ox O2 Delivery O2 Flow Rate FiO2 03/07/19 08:10 Room Air 03/07/19 08:00 98.4 66 19 110/64 (79) 98 03/07/19 04:00 97.5 60 20 120/61 (80) 60 03/07/19 00:00 97.8 62 18 109/54 (72) 03/06/19 21:00 Room Air 03/06/19 20:00 97.3 67 16 101/52 (68) 67 03/06/19 16:00 97.1 61 19 106/56 (73) 98 03/06/19 12:00 97.9 73 16 97/57 (70) 99 Intake and Output 03/06/19 03/07/19 19:00 07:00 Intake Total 930 ml 60 ml Output Total 900 ml 1500 ml Balance 30 ml -1440 ml Intake Oral 240 ml IV Total 690 ml 60 ml Output Urine Total 900 ml 1500 ml # Bowel Movements 1 Laboratory Tests 03/07/19 05:00: White Blood Count 7.9, Red Blood Count 3.23L, Hemoglobin 9.4L, Hematocrit 27.6L , Mean Corpuscular Volume 85, Mean Corpuscular Hemoglobin 29.0, Mean Corpuscular Hemoglobin Concent 34.0, Red Cell Distribution Width 15.0H, Platelet Count 143L, Mean Platelet Volume 5.0L, Neutrophils (%) (Auto) 66.5, Lymphocytes (%) (Auto) 24.4, Monocytes (%) (Auto) 5.8, Eosinophils (%) (Auto) 2.4, Basophils (%) (Auto) 0.9, Erythrocyte Sedimentation Rate 124H, Sodium Level 140, Potassium Level 3.8, Chloride Level 109H, Carbon Dioxide Level 24, Anion Gap 7, Blood Urea Nitrogen 44H, Creatinine 1.1, Estimat Glomerular Filtration Rate , Glucose Level 94, Calcium Level 8.7, Phosphorus Level 2.7, Magnesium Level 1.4L, Total Bilirubin 0.3, Aspartate Amino Transf (AST/SGOT) 13L , Alanine Aminotransferase (ALT/SGPT) 8L, Alkaline Phosphatase 66, C-Reactive Protein, Quantitative 3.3H, Total Protein 6.3L, Albumin 2.1L, Globulin 4.2, Albumin/Globulin Ratio 0.5L Height (Feet): 5 Height (Inches): 7.00 Weight (Pounds): 165 General Appearance: no apparent distress Objective no change Bryan Serna MD Mar 07, 2019 10:05
--- NOTE | 2019-03-07 11:52 | Pulmonology Progress Note ---
Assessment/Plan Problems: (1) MDRO (multiple drug resistant organisms) resistance (2) Acute metabolic encephalopathy (3) Bladder neoplasm (4) Hyperkalemia (5) KENN (acute kidney injury) (6) Diabetes mellitus (7) HTN (hypertension) (8) Alzheimer's dementia (9) Chronic cerebrovascular accident (CVA) Assessment/Plan On ertapenem for ESBL bun/creatinine better iv fluids at 100 cc/hour check K daily symptomatic treatment pain control consider comfort care Subjective ROS Limited/Unobtainable: No Constitutional: Reports: no symptoms HEENT: Repors: no symptoms Allergies: Coded Allergies: No Known Allergies (Unverified , 04/09/16) Objective Last 24 Hour Vital Signs Date Time Temp Pulse Resp B/P (MAP) Pulse Ox O2 Delivery O2 Flow Rate FiO2 03/07/19 08:10 Room Air 03/07/19 08:00 98.4 66 19 110/64 (79) 98 03/07/19 04:00 97.5 60 20 120/61 (80) 60 03/07/19 00:00 97.8 62 18 109/54 (72) 03/06/19 21:00 Room Air 03/06/19 20:00 97.3 67 16 101/52 (68) 67 03/06/19 16:00 97.1 61 19 106/56 (73) 98 03/06/19 12:00 97.9 73 16 97/57 (70) 99 Intake and Output 03/06/19 03/07/19 19:00 07:00 Intake Total 930 ml 60 ml Output Total 900 ml 1500 ml Balance 30 ml -1440 ml Intake Oral 240 ml IV Total 690 ml 60 ml Output Urine Total 900 ml 1500 ml # Bowel Movements 1 General Appearance: WD/WN HEENT: atraumatic Respiratory/Chest: chest wall non-tender, normal breath sounds Cardiovascular: normal rate, no gallop/murmur Abdomen: soft, non tender Skin: no rash Laboratory Tests 03/07/19 05:00: White Blood Count 7.9, Red Blood Count 3.23L, Hemoglobin 9.4L, Hematocrit 27.6L , Mean Corpuscular Volume 85, Mean Corpuscular Hemoglobin 29.0, Mean Corpuscular Hemoglobin Concent 34.0, Red Cell Distribution Width 15.0H, Platelet Count 143L, Mean Platelet Volume 5.0L, Neutrophils (%) (Auto) 66.5, Lymphocytes (%) (Auto) 24.4, Monocytes (%) (Auto) 5.8, Eosinophils (%) (Auto) 2.4, Basophils (%) (Auto) 0.9, Erythrocyte Sedimentation Rate 124H, Sodium Level 140, Potassium Level 3.8, Chloride Level 109H, Carbon Dioxide Level 24, Anion Gap 7, Blood Urea Nitrogen 44H, Creatinine 1.1, Estimat Glomerular Filtration Rate , Glucose Level 94, Calcium Level 8.7, Phosphorus Level 2.7, Magnesium Level 1.4L, Total Bilirubin 0.3, Aspartate Amino Transf (AST/SGOT) 13L , Alanine Aminotransferase (ALT/SGPT) 8L, Alkaline Phosphatase 66, C-Reactive Protein, Quantitative 3.3H, Total Protein 6.3L, Albumin 2.1L, Globulin 4.2, Albumin/Globulin Ratio 0.5L Current Medications Medications (Trade) Dose Ordered Sig/Levi Route PRN Reason Start Time Stop Time Status Last Admin Dose Admin Acetaminophen (Tylenol) 650 mg Q4H PRN ORAL T>100.5 03/04/19 17:30 04/02/19 17:29 Clonidine HCl (Catapres Tab) 0.1 mg Q4H PRN ORAL SBP > 160mmHg 03/04/19 17:30 04/02/19 17:29 Dextrose 1,000 ml @ 60 mls/hr [id number] IV 03/05/19 10:00 04/03/19 09:59 03/06/19 22:48 Dextrose (Dextrose 50%) 25 ml Q30M PRN IV Hypoglycemia 03/04/19 17:30 04/02/19 10:29 Dextrose (Dextrose 50%) 50 ml Q30M PRN IV Hypoglycemia 03/04/19 17:30 04/02/19 10:29 Docusate Sodium (Colace) 100 mg THREE TIMES A DAY ORAL 03/05/19 09:00 04/04/19 08:59 03/07/19 08:11 Ertapenem 1 gm/ Sodium Chloride 55 ml @ 110 mls/hr Q24H IVPB 03/05/19 18:00 03/11/19 17:59 03/06/19 18:33 Finasteride (Proscar) 5 mg DAILY ORAL 03/05/19 09:00 04/03/19 08:59 03/07/19 08:11 Heparin Sodium (Porcine) (Heparin 5000 units/ml) 5,000 units EVERY 12 HOURS SUBQ 03/04/19 21:00 04/02/19 20:59 03/07/19 08:14 Insulin Aspart (NovoLOG) BEFORE MEALS AND HS SUBQ 03/04/19 21:00 04/02/19 11:29 03/07/19 11:36 Lorazepam (Ativan 2mg/ml 1ml) 0.5 mg Q4H PRN IV For Anxiety 03/04/19 17:30 03/10/19 17:29 Magnesium Sulfate 100 ml @ 100 mls/hr Q1H IVPB 03/07/19 09:15 03/07/19 13:14 03/07/19 11:35 Morphine Sulfate (Morphine Sulfate) 1 mg Q4H PRN IVP PAIN 4-10 03/04/19 17:30 03/10/19 17:29 03/05/19 03:30 Nateglinide (Starlix) 60 mg TIAC ORAL 03/05/19 06:30 04/03/19 16:29 03/07/19 11:35 Ondansetron HCl (Zofran) 4 mg Q6H PRN IVP Nausea & Vomiting 03/04/19 17:30 04/02/19 17:29 Pantoprazole (Protonix) 40 mg EVERY 12 HOURS ORAL 03/04/19 21:00 04/03/19 20:59 03/07/19 08:11 Polyethylene Glycol (Miralax) 17 gm HSPRN PRN ORAL Constipation 03/04/19 21:00 04/02/19 20:59 Tamsulosin HCl (Flomax) 0.4 mg BEDTIME ORAL 03/04/19 21:00 04/02/19 20:59 03/06/19 20:14 Zolpidem Tartrate (Ambien) 5 mg HSPRN PRN ORAL Insomnia 03/04/19 21:00 03/10/19 20:59 Og Hinkle MD Mar 07, 2019 11:52
[2019-03-07 12:04] VITALS: BP 99/47
--- NOTE | 2019-03-07 12:40 | NUR ---
CASE MANAGEMENT:REVIEW 03/07/19 SI: ACUTE METABOLIC ENCEPHALOPATHY HYPERKALEMIA. BLADDER NEOPLASM 96.8 60 19 99/47 99% ON RA MAG-1.4 IS: IV MAG Q1HRS X4 IV ERTAPENEM Q24 IVF@60/HR PROSCAR PO QD HEPARIN SQ Q12 FLOMAX PO QHS IV MORPHINE Q4HRS PRN : MED/SURG STATUS 4 EAST DCP: FROM [facility] PLAN: SYMPTOMATIC TREATMENT PAIN MANAGEMENT
--- NOTE | 2019-03-07 12:50 | NUR ---
DISCHARGE PLANNING FAXED CLINICALS TO [facility] T: [phone] F: [phone] SPOKE WITH SWATI FROM [facility] ~ PATIENT CAN RETURN TO ROOM 3A WHEN READY NON DISCHARGE ORDER NOTED
--- NOTE | 2019-03-07 13:57 | Consultation ---
History of Present Illness General Date patient seen: Mar 07, 2019 Chief Complaint: Abnormal Labs Present Illness HPI 83 y/o M with hx of bladder CA c/w hydronephrosis s/p L nephrostomy tube 11/26/18 , Transurethral bladder mass resection on 11/24/2018, Sp Cystoscopy and left ureteral stent placement on 12/31/2018, BPH, hypothyroidism, dysphagia, iron def anemia, AV dissocaition s/p PPM, hx of UTI, seizure disorder, Dm2, HTN, CVA , dementia, [place] resident presented to ED on 03/03 with renal failure, hyperkalemia (>6), poor PO intake. Denied SOB, CP, f/c. Of note, admitted on 12/27- for dislodged L nephrostomy tube, KENN and probable UTI Also admitted on 11/22-12/10 w/ blood in stool and new onset hyperthyroidism Allergies: Coded Allergies: No Known Allergies (Unverified , 04/09/16) Medication History Scheduled Amino Acids/Protein Hydrolys (Pro-Stat Liquid), 30 ML ORAL TWICE A DAY, ( Reported) Amlodipine Besylate (Norvasc), 2.5 MG ORAL DAILY Ferrous Sulfate (Ferrous Sulfate), 7.5 ML PO DAILY, (Reported) Finasteride (Finasteride), 5 MG ORAL DAILY Lisinopril (Lisinopril*), 20 MG ORAL DAILY Metformin Hcl (Glucophage), 1,000 MG ORAL EVERY 12 HOURS Multivitamin With Minerals (Multivitamins With Minerals*), 1 TAB ORAL DAILY, ( Reported) Nateglinide (Starlix), 120 MG ORAL TIAC Tamsulosin HCl (Flomax), 0.4 MG ORAL BEDTIME Discontinued Medications Ascorbic Acid* (Vitamin C*), 500 MG ORAL DAILY, (Reported) Discontinued Reason: Therapy completed Ferrous Sulfate* (Ferrous Sulfate*), 325 MG ORAL DAILY, (Reported) Discontinued Reason: Prescription changed Multivitamin (Multi-Vitamin Daily), 1 EACH PO DAILY, (Reported) Discontinued Reason: Prescription changed [Prostat], 30 ML PO BID, (Reported) Discontinued Reason: Prescription changed Patient History Healthcare decision maker Resuscitation status Full Code Advanced Directive on File Patient History Narrative Pmhx: as above Shx: The patient is single and is a resident [facility]. The patient denies tobacco or alcohol use. Fhx: non contributory Review of Systems All Other Systems: negative except mentioned in HPI Physical Exam Physical Exam Narrative General Appearance: WD/WN, no apparent distress Lines, tubes and drains: peripheral HEENT: normocephalic Neck: non-tender, normal alignment Respiratory/Chest: chest wall non-tender, lungs clear Abdomen: normal bowel sounds, non tender Genitourinary/Rectal: normal genital exam Extremities: normal range of motion Last 24 Hour Vital Signs Date Time Temp Pulse Resp B/P (MAP) Pulse Ox O2 Delivery O2 Flow Rate FiO2 03/07/19 12:04 96.8 60 19 99/47 (64) 99 03/07/19 08:10 Room Air 03/07/19 08:00 98.4 66 19 110/64 (79) 98 03/07/19 04:00 97.5 60 20 120/61 (80) 60 03/07/19 00:00 97.8 62 18 109/54 (72) 03/06/19 21:00 Room Air 03/06/19 20:00 97.3 67 16 101/52 (68) 67 03/06/19 16:00 97.1 61 19 106/56 (73) 98 Intake and Output 03/06/19 03/07/19 19:00 07:00 Intake Total 930 ml 60 ml Output Total 900 ml 1500 ml Balance 30 ml -1440 ml Intake Oral 240 ml IV Total 690 ml 60 ml Output Urine Total 900 ml 1500 ml # Bowel Movements 1 Laboratory Tests Test 03/07/19 05:00 White Blood Count 7.9 K/UL (4.8-10.8) Red Blood Count 3.23 M/UL (4.70-6.10) L Hemoglobin 9.4 G/DL (14.2-18.0) L Hematocrit 27.6 % (42.0-52.0) L Mean Corpuscular Volume 85 FL (80-99) Mean Corpuscular Hemoglobin 29.0 PG (27.0-31.0) Mean Corpuscular Hemoglobin Concent 34.0 G/DL (32.0-36.0) Red Cell Distribution Width 15.0 % (11.6-14.8) H Platelet Count 143 K/UL (150-450) L Mean Platelet Volume 5.0 FL (6.5-10.1) L Neutrophils (%) (Auto) 66.5 % (45.0-75.0) Lymphocytes (%) (Auto) 24.4 % (20.0-45.0) Monocytes (%) (Auto) 5.8 % (1.0-10.0) Eosinophils (%) (Auto) 2.4 % (0.0-3.0) Basophils (%) (Auto) 0.9 % (0.0-2.0) Erythrocyte Sedimentation Rate 124 MM/HR (0-20) H Sodium Level 140 MMOL/L (136-145) Potassium Level 3.8 MMOL/L (3.5-5.1) Chloride Level 109 MMOL/L (98-107) H Carbon Dioxide Level 24 MMOL/L (21-32) Anion Gap 7 mmol/L (5-15) Blood Urea Nitrogen 44 mg/dL (7-18) H Creatinine 1.1 MG/DL (0.55-1.30) Estimat Glomerular Filtration Rate mL/min (>60) Glucose Level 94 MG/DL (74-106) Calcium Level 8.7 MG/DL (8.5-10.1) Phosphorus Level 2.7 MG/DL (2.5-4.9) Magnesium Level 1.4 MG/DL (1.8-2.4) L Total Bilirubin 0.3 MG/DL (0.2-1.0) Aspartate Amino Transf (AST/SGOT) 13 U/L (15-37) L Alanine Aminotransferase (ALT/SGPT) 8 U/L (12-78) L Alkaline Phosphatase 66 U/L (46-116) C-Reactive Protein, Quantitative 3.3 mg/dL (0.00-0.90) H Total Protein 6.3 G/DL (6.4-8.2) L Albumin 2.1 G/DL (3.4-5.0) L Globulin 4.2 g/dL Albumin/Globulin Ratio 0.5 (1.0-2.7) L Height (Feet): 5 Height (Inches): 7.00 Weight (Pounds): 165 Medications Current Medications Medications (Trade) Dose Ordered Sig/Levi Route PRN Reason Start Time Stop Time Status Last Admin Dose Admin Acetaminophen (Tylenol) 650 mg Q4H PRN ORAL T>100.5 03/04/19 17:30 04/02/19 17:29 Clonidine HCl (Catapres Tab) 0.1 mg Q4H PRN ORAL SBP > 160mmHg 03/04/19 17:30 04/02/19 17:29 Dextrose 1,000 ml @ 60 mls/hr [id number] IV 03/05/19 10:00 04/03/19 09:59 03/06/19 22:48 Dextrose (Dextrose 50%) 25 ml Q30M PRN IV Hypoglycemia 03/04/19 17:30 04/02/19 10:29 Dextrose (Dextrose 50%) 50 ml Q30M PRN IV Hypoglycemia 03/04/19 17:30 04/02/19 10:29 Docusate Sodium (Colace) 100 mg THREE TIMES A DAY ORAL 03/05/19 09:00 04/04/19 08:59 03/07/19 12:14 Ertapenem 1 gm/ Sodium Chloride 55 ml @ 110 mls/hr Q24H IVPB 03/05/19 18:00 03/11/19 17:59 03/06/19 18:33 Finasteride (Proscar) 5 mg DAILY ORAL 03/05/19 09:00 04/03/19 08:59 03/07/19 08:11 Heparin Sodium (Porcine) (Heparin 5000 units/ml) 5,000 units EVERY 12 HOURS SUBQ 03/04/19 21:00 04/02/19 20:59 03/07/19 08:14 Insulin Aspart (NovoLOG) BEFORE MEALS AND HS SUBQ 03/04/19 21:00 04/02/19 11:29 03/07/19 11:36 Lorazepam (Ativan 2mg/ml 1ml) 0.5 mg Q4H PRN IV For Anxiety 03/04/19 17:30 03/10/19 17:29 Morphine Sulfate (Morphine Sulfate) 1 mg Q4H PRN IVP PAIN 4-10 03/04/19 17:30 03/10/19 17:29 03/05/19 03:30 Nateglinide (Starlix) 60 mg TIAC ORAL 03/05/19 06:30 04/03/19 16:29 03/07/19 11:35 Ondansetron HCl (Zofran) 4 mg Q6H PRN IVP Nausea & Vomiting 03/04/19 17:30 04/02/19 17:29 Pantoprazole (Protonix) 40 mg EVERY 12 HOURS ORAL 03/04/19 21:00 04/03/19 20:59 03/07/19 08:11 Polyethylene Glycol (Miralax) 17 gm HSPRN PRN ORAL Constipation 03/04/19 21:00 04/02/19 20:59 Tamsulosin HCl (Flomax) 0.4 mg BEDTIME ORAL 03/04/19 21:00 04/02/19 20:59 03/06/19 20:14 Zolpidem Tartrate (Ambien) 5 mg HSPRN PRN ORAL Insomnia 03/04/19 21:00 03/10/19 20:59 Assessment/Plan Assessment/Plan: Abx: Ceftriaxone x1 03/03 Ertapenem 03/05- Assessment: Probable UTI -u/a wbc tnct, nit +, leuk +3; Ucx >100k ESBL E.coli (S Zosyn, bactrim, Ertapenem) -Abd US: Very limited evaluation showing bilateral hydronephrosis. Thickened bladder wall. Robertson catheter noted. Correlate for cystitis. Left Nephroureteral stent not well seen Afebrile No leukocytosis -CXR: no acute disease KENN, improving Hyperkalemia, SP hx of UTI bladder CA c/w hydronephrosis s/p nephrostomy -Sp Cystoscopy and left ureteral stent placement on 12/31/2018 -s/p L nephrostomy tube placement 11/26/18; exchanged on December 2018 -11/25/18 SP Cystoscopy, urethral calibration, transurethral resection of extensive bladder tumor with fulguration, and right retrograde pyelogram. -Findings: The patient had what appeared to be a large bladder tumor that involved most of the left side of the bladder extending posteriorly and completely obliterating the left ureteral orifice. I was unable to place a stent on the left side. hx of UTI hx of hematochezia 2ry to hemorrhoids Dm2 Dementia HTN BPH urinary incontinence AV dissociation w/ conduction s/p PPM metabolic encephalopathy seizure disorders CVA [place] resident hypothyroidism dysphagia iron def anemia Plan: -Continue Ertapenem #3/5 for probable UTI -01/01 Sp PO fluconazole # 3- will treat funguria -12/31 Sp Cefepime #5/5 for presumed UTI -12/28 SP IV Vancomycin #2 -f/u cx -Monitor CBC/CMP, temperatures -aspiration precautions Thank you for this consultation. Will continue to follow along with you. Discussed with DONELL. Tawny Darby M.D. Mar 07, 2019 13:57
[2019-03-07 15:57] VITALS: BP 94/45
[2019-03-07] MEDS: Ertapenem 1 GM in NS 55 ML IVPB SCH (17:01)
--- NOTE | 2019-03-07 19:11 | Internal Med Progress Note ---
Subjective Date of Service: Mar 07, 2019 Physician Name Jean-Claude Peter Attending Physician Jaziel Lowe MD Current Medications Medications (Trade) Dose Ordered Sig/Levi Route PRN Reason Start Time Stop Time Status Last Admin Dose Admin Acetaminophen (Tylenol) 650 mg Q4H PRN ORAL T>100.5 03/04/19 17:30 04/02/19 17:29 Clonidine HCl (Catapres Tab) 0.1 mg Q4H PRN ORAL SBP > 160mmHg 03/04/19 17:30 04/02/19 17:29 Dextrose 1,000 ml @ 60 mls/hr [id number] IV 03/05/19 10:00 04/03/19 09:59 03/06/19 22:48 Dextrose (Dextrose 50%) 25 ml Q30M PRN IV Hypoglycemia 03/04/19 17:30 04/02/19 10:29 Dextrose (Dextrose 50%) 50 ml Q30M PRN IV Hypoglycemia 03/04/19 17:30 04/02/19 10:29 Docusate Sodium (Colace) 100 mg THREE TIMES A DAY ORAL 03/05/19 09:00 04/04/19 08:59 03/07/19 17:00 Ertapenem 1 gm/ Sodium Chloride 55 ml @ 110 mls/hr Q24H IVPB 03/05/19 18:00 03/11/19 17:59 03/07/19 17:01 Finasteride (Proscar) 5 mg DAILY ORAL 03/05/19 09:00 04/03/19 08:59 03/07/19 08:11 Heparin Sodium (Porcine) (Heparin 5000 units/ml) 5,000 units EVERY 12 HOURS SUBQ 03/04/19 21:00 04/02/19 20:59 03/07/19 08:14 Insulin Aspart (NovoLOG) BEFORE MEALS AND HS SUBQ 03/04/19 21:00 04/02/19 11:29 03/07/19 16:25 Lorazepam (Ativan 2mg/ml 1ml) 0.5 mg Q4H PRN IV For Anxiety 03/04/19 17:30 03/10/19 17:29 Morphine Sulfate (Morphine Sulfate) 1 mg Q4H PRN IVP PAIN 4-10 03/04/19 17:30 03/10/19 17:29 03/05/19 03:30 Nateglinide (Starlix) 60 mg TIAC ORAL 03/05/19 06:30 04/03/19 16:29 03/07/19 16:26 Ondansetron HCl (Zofran) 4 mg Q6H PRN IVP Nausea & Vomiting 03/04/19 17:30 04/02/19 17:29 Pantoprazole (Protonix) 40 mg EVERY 12 HOURS ORAL 03/04/19 21:00 04/03/19 20:59 03/07/19 08:11 Polyethylene Glycol (Miralax) 17 gm HSPRN PRN ORAL Constipation 03/04/19 21:00 04/02/19 20:59 Tamsulosin HCl (Flomax) 0.4 mg BEDTIME ORAL 03/04/19 21:00 04/02/19 20:59 03/06/19 20:14 Zolpidem Tartrate (Ambien) 5 mg HSPRN PRN ORAL Insomnia 03/04/19 21:00 03/10/19 20:59 Allergies: Coded Allergies: No Known Allergies (Unverified , 04/09/16) ROS Limited/Unobtainable: No Constitutional: Reports: no symptoms HEENT: Reports: no symptoms Cardiovascular: Reports: no symptoms Respiratory: Reports: no symptoms Gastrointestinal/Abdominal: Reports: no symptoms Genitourinary: Reports: no symptoms 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: Reports: no symptoms Subjective 83 YO M admitted with acute renal failure. Now UTI. Cover for Int Uriel-Dr Lowe Objective Last Vital Signs Date Time Temp Pulse Resp B/P (MAP) Pulse Ox O2 Delivery O2 Flow Rate FiO2 03/07/19 15:57 98.2 60 18 94/45 (61) 98 03/07/19 08:10 Room Air Laboratory Tests Test 03/07/19 05:00 White Blood Count 7.9 K/UL (4.8-10.8) Red Blood Count 3.23 M/UL (4.70-6.10) L Hemoglobin 9.4 G/DL (14.2-18.0) L Hematocrit 27.6 % (42.0-52.0) L Mean Corpuscular Volume 85 FL (80-99) Mean Corpuscular Hemoglobin 29.0 PG (27.0-31.0) Mean Corpuscular Hemoglobin Concent 34.0 G/DL (32.0-36.0) Red Cell Distribution Width 15.0 % (11.6-14.8) H Platelet Count 143 K/UL (150-450) L Mean Platelet Volume 5.0 FL (6.5-10.1) L Neutrophils (%) (Auto) 66.5 % (45.0-75.0) Lymphocytes (%) (Auto) 24.4 % (20.0-45.0) Monocytes (%) (Auto) 5.8 % (1.0-10.0) Eosinophils (%) (Auto) 2.4 % (0.0-3.0) Basophils (%) (Auto) 0.9 % (0.0-2.0) Erythrocyte Sedimentation Rate 124 MM/HR (0-20) H Sodium Level 140 MMOL/L (136-145) Potassium Level 3.8 MMOL/L (3.5-5.1) Chloride Level 109 MMOL/L (98-107) H Carbon Dioxide Level 24 MMOL/L (21-32) Anion Gap 7 mmol/L (5-15) Blood Urea Nitrogen 44 mg/dL (7-18) H Creatinine 1.1 MG/DL (0.55-1.30) Estimat Glomerular Filtration Rate mL/min (>60) Glucose Level 94 MG/DL (74-106) Calcium Level 8.7 MG/DL (8.5-10.1) Phosphorus Level 2.7 MG/DL (2.5-4.9) Magnesium Level 1.4 MG/DL (1.8-2.4) L Total Bilirubin 0.3 MG/DL (0.2-1.0) Aspartate Amino Transf (AST/SGOT) 13 U/L (15-37) L Alanine Aminotransferase (ALT/SGPT) 8 U/L (12-78) L Alkaline Phosphatase 66 U/L (46-116) C-Reactive Protein, Quantitative 3.3 mg/dL (0.00-0.90) H Total Protein 6.3 G/DL (6.4-8.2) L Albumin 2.1 G/DL (3.4-5.0) L Globulin 4.2 g/dL Albumin/Globulin Ratio 0.5 (1.0-2.7) L Intake and Output 03/06/19 03/07/19 18:59 06:59 Intake Total 900 ml 30 ml Output Total 900 ml 1500 ml Balance 0 ml -1470 ml Intake Oral 240 ml IV Total 660 ml 30 ml Output Urine Total 900 ml 1500 ml # Bowel Movements 1 Objective PHYSICAL EXAMINATION: GENERAL: The patient is a well-developed and well-nourished male, in no apparent distress. HEENT: Eyes, pupils are equal and responsive to light and accommodation. Extraocular movements are intact. NECK: Supple without lymphadenopathy. CHEST: Lungs are clear to auscultation bilaterally without wheezes or rales. CARDIOVASCULAR: Regular rhythm and rate. S1 and S2 are normal without murmurs, rubs, or gallops. ABDOMEN: Soft, nontender, and nondistended. Positive bowel sounds. No evidence of hepatosplenomegaly. Currently, no rebound or guarding noted. EXTREMITIES: Negative for clubbing, cyanosis, or edema. RECTAL/GENITAL: Not performed. NEUROLOGIC: Cranial nerves II through XII are grossly intact without focal deficits. Motor strength is 5/5 bilaterally. Deep tendon reflexes are 2+ plantar. Assessment/Plan Assessment/Plan ASSESSMENT: This is an 83-year-old male. 1. Acute renal failure. 2. Urinary tract infection=ESBL E. Coli 3. Bladder cancer. 4. Hypertension. 5. Diabetes type 2. 6. AV conduction defect. 7. Alzheimer's dementia. 8. Left hydronephrosis. TREATMENT: 1. Acute renal failure/urinary tract infection. The patient has been started empirically on intravenous ceftriaxone. Urine culture is pending. Await urine culture results. A Nephrology consultation has been obtained with Dr. Serna. The patient may require hemodialysis. We will follow recommendations of Nephrology. 2. Urinary tract infection=ESBL E. Coli. ABX=Ertapenem day #3/5 per ID, Dr Cordoba 3. Bladder cancer. The patient is status post resection. 4. Hypertension. The patient is currently hypotensive. The patient will be given clonidine p.r.n. 5. Diabetes type 2. The patient has been placed on a NovoLog sliding scale. 6. AV conduction defect. 7. Alzheimer's dementia. 8. Left hydronephrosis. The patient is status post left ureteral stent placed on 12/31/2018. Jean-Claude Peter MD Mar 07, 2019 19:11
--- NOTE | 2019-03-07 19:17 | NUR ---
HAND-OFF: Report given to DONELL Andres., resting comfortably in bed, patient free from pain and injury donell robbins
--- NOTE | 2019-03-07 19:20 | NUR ---
NURSE NOTES: Received report from DONELL Nunez. Patient is in bed, awake and alertx3. IV is intact and running fluids. Side rails up and padded for seizure precautions. Bed is locked and in lowest position with the bed alarm on. Call light in reach. Will continue to monitor the patient.
[2019-03-07 20:00] VITALS: BP 100/57
[2019-03-07] MEDS: Tamsulosin 0.4mg cap ORAL SCH (21:44)
[2019-03-08] VITALS: BP 97/57
[2019-03-08 04:00] VITALS: BP 96/59
[2019-03-08] MEDS: NovoLOG Insulin Flexpen SUBQ SCH ×2 (06:22→11:03)
[2019-03-08] MEDS: Nateglinide 60mg tab ORAL SCH ×2 (06:25→11:29)
--- NOTE | 2019-03-08 07:11 | NUR ---
NURSE NOTES: received patient resting comfortably in bed, patient, awake, alert oriented x3, No sign of distress, denies pain or discomfort, IV fluids infusing well, hernandez catheter patent.on fall and aspiration precaution , turn q2h for comfort and good circulation, HOB elevated,Bed alarm is on, kept clean dry and comfortable, needs met and anticipated, call light w/n reach husam robbins
[2019-03-08 07:25] LABS: BASOPHILS % (AUTO) 0.7 % (0.0-2.0); EOSINOPHILS % (AUTO) 3.2 % (0.0-3.0); HEMATOCRIT 28.8 % (42.0-52.0); HEMOGLOBIN 9.8 G/DL (14.2-18.0); LYMPHOCYTES % (AUTO) 22.5 % (20.0-45.0); MEAN CORPUSCULAR VOLUME 86 FL (80-99); MONOCYTES % (AUTO) 5.2 % (1.0-10.0); NEUTROPHILS % (AUTO) 68.5 % (45.0-75.0); PLATELET COUNT 148 K/UL (150-450); RED BLOOD COUNT 3.36 M/UL (4.70-6.10); RED CELL DISTRIBUTION WIDTH 15.1 % (11.6-14.8); WHITE BLOOD COUNT 9.5 K/UL (4.8-10.8)
--- NOTE | 2019-03-08 07:37 | NUR ---
HAND-OFF: Report given to DONELL Nunez.
[2019-03-08 07:46] LABS: ALANINE AMINOTRANSFERASE 6 U/L (12-78); ALBUMIN 2.3 G/DL (3.4-5.0); ALBUMIN/GLOBULIN RATIO 0.5 (1.0-2.7); ALKALINE PHOSPHATASE 70 U/L (46-116); ANION GAP 7 mmol/L (5-15); ASPARTATE AMINO TRANSFERASE 12 U/L (15-37); BILIRUBIN,TOTAL 0.3 MG/DL (0.2-1.0); BLOOD UREA NITROGEN 29 mg/dL (7-18); CALCIUM 9.2 MG/DL (8.5-10.1); CARBON DIOXIDE 25 MMOL/L (21-32); CHLORIDE 107 MMOL/L (98-107); CREATININE 1.1 MG/DL (0.55-1.30); PHOSPHORUS 2.7 MG/DL (2.5-4.9); SODIUM 139 MMOL/L (136-145)
[2019-03-08 08:00] VITALS: BP 108/62
[2019-03-08] MEDS: Heparin 5000 units/ml inj SUBQ SCH (08:04)
[2019-03-08] MEDS: Docusate 100mg cap ORAL SCH ×2 (08:04→12:17)
--- NOTE | 2019-03-08 09:01 | NUR ---
DISCHARGE PLANNING FAXED CLINICALS YESTERDAY TO [facility] T: [phone] F: [phone] SPOKE WITH SWATI FROM [facility] ~ PATIENT CAN RETURN TO ROOM 3A WHEN READY WAITING FOR DISCHARGE ORDER
[2019-03-08] MEDS ORDERED: INVANZ1 G1 IM (10:55)
--- NOTE | 2019-03-08 10:56 | Pulmonology Progress Note ---
Assessment/Plan Problems: (1) MDRO (multiple drug resistant organisms) resistance (2) Acute metabolic encephalopathy (3) Bladder neoplasm (4) Hyperkalemia (5) KENN (acute kidney injury) (6) Diabetes mellitus (7) HTN (hypertension) (8) Alzheimer's dementia (9) Chronic cerebrovascular accident (CVA) Assessment/Plan On ertapenem for ESBL, two more days as pe ID bun/creatinine better iv fluids at 100 cc/hour symptomatic treatment pain control consider comfort care Subjective ROS Limited/Unobtainable: No Constitutional: Reports: no symptoms HEENT: Repors: no symptoms Respiratory: Reports: no symptoms Allergies: Coded Allergies: No Known Allergies (Unverified , 04/09/16) Objective Last 24 Hour Vital Signs Date Time Temp Pulse Resp B/P (MAP) Pulse Ox O2 Delivery O2 Flow Rate FiO2 03/08/19 08:00 Room Air 03/08/19 08:00 97.3 61 18 108/62 (77) 94 03/08/19 04:00 97.4 59 16 96/59 (71) 94 03/08/19 00:00 96.5 62 16 97/57 (70) 96 03/07/19 21:00 Room Air 03/07/19 20:00 97.4 62 17 100/57 (71) 98 03/07/19 15:57 98.2 60 18 94/45 (61) 98 03/07/19 12:04 96.8 60 19 99/47 (64) 99 Intake and Output 03/07/19 03/08/19 19:00 07:00 Intake Total 2395 ml 1020 ml Output Total 1200 ml 1500 ml Balance 1195 ml -480 ml Intake Oral 650 ml 360 ml IV Total 1745 ml 660 ml Output Urine Total 1200 ml 1500 ml # Voids 2 # Bowel Movements 1 General Appearance: WD/WN HEENT: normocephalic Respiratory/Chest: chest wall non-tender, normal breath sounds Cardiovascular: normal peripheral pulses, regularly irregular Abdomen: normal bowel sounds, non distended Extremities: no cyanosis Skin: no lesions Laboratory Tests 03/08/19 05:18: White Blood Count 9.5, Red Blood Count 3.36L, Hemoglobin 9.8L, Hematocrit 28.8L , Mean Corpuscular Volume 86, Mean Corpuscular Hemoglobin 29.2, Mean Corpuscular Hemoglobin Concent 34.0, Red Cell Distribution Width 15.1H, Platelet Count 148L, Mean Platelet Volume 4.6L, Neutrophils (%) (Auto) 68.5, Lymphocytes (%) (Auto) 22.5, Monocytes (%) (Auto) 5.2, Eosinophils (%) (Auto) 3.2H, Basophils (%) (Auto) 0.7, Erythrocyte Sedimentation Rate 123H, Sodium Level 139, Potassium Level 4.0, Chloride Level 107, Carbon Dioxide Level 25, Anion Gap 7, Blood Urea Nitrogen 29H, Creatinine 1.1, Estimat Glomerular Filtration Rate , Glucose Level 88, Calcium Level 9.2, Phosphorus Level 2.7, Magnesium Level 2.0, Total Bilirubin 0.3, Aspartate Amino Transf (AST/SGOT) 12L , Alanine Aminotransferase (ALT/SGPT) 6L, Alkaline Phosphatase 70, C-Reactive Protein, Quantitative 1.8H, Total Protein 6.7, Albumin 2.3L, Globulin 4.4, Albumin/Globulin Ratio 0.5L Current Medications Medications (Trade) Dose Ordered Sig/Levi Route PRN Reason Start Time Stop Time Status Last Admin Dose Admin Acetaminophen (Tylenol) 650 mg Q4H PRN ORAL T>100.5 03/04/19 17:30 04/02/19 17:29 Clonidine HCl (Catapres Tab) 0.1 mg Q4H PRN ORAL SBP > 160mmHg 03/04/19 17:30 04/02/19 17:29 Dextrose 1,000 ml @ 60 mls/hr [id number] IV 03/05/19 10:00 04/03/19 09:59 03/08/19 04:00 Dextrose (Dextrose 50%) 25 ml Q30M PRN IV Hypoglycemia 03/04/19 17:30 04/02/19 10:29 Dextrose (Dextrose 50%) 50 ml Q30M PRN IV Hypoglycemia 03/04/19 17:30 04/02/19 10:29 Docusate Sodium (Colace) 100 mg THREE TIMES A DAY ORAL 03/05/19 09:00 04/04/19 08:59 03/08/19 08:04 Ertapenem 1 gm/ Sodium Chloride 55 ml @ 110 mls/hr Q24H IVPB 03/05/19 18:00 03/11/19 17:59 03/07/19 17:01 Finasteride (Proscar) 5 mg DAILY ORAL 03/05/19 09:00 04/03/19 08:59 03/08/19 08:04 Heparin Sodium (Porcine) (Heparin 5000 units/ml) 5,000 units EVERY 12 HOURS SUBQ 03/04/19 21:00 04/02/19 20:59 03/07/19 08:14 Insulin Aspart (NovoLOG) BEFORE MEALS AND HS SUBQ 03/04/19 21:00 04/02/19 11:29 03/07/19 16:25 Lorazepam (Ativan 2mg/ml 1ml) 0.5 mg Q4H PRN IV For Anxiety 03/04/19 17:30 03/10/19 17:29 Morphine Sulfate (Morphine Sulfate) 1 mg Q4H PRN IVP PAIN 4-10 03/04/19 17:30 03/10/19 17:29 03/05/19 03:30 Nateglinide (Starlix) 60 mg TIAC ORAL 03/05/19 06:30 04/03/19 16:29 03/08/19 06:25 Ondansetron HCl (Zofran) 4 mg Q6H PRN IVP Nausea & Vomiting 03/04/19 17:30 04/02/19 17:29 Pantoprazole (Protonix) 40 mg EVERY 12 HOURS ORAL 03/04/19 21:00 04/03/19 20:59 03/08/19 08:04 Polyethylene Glycol (Miralax) 17 gm HSPRN PRN ORAL Constipation 03/04/19 21:00 04/02/19 20:59 Tamsulosin HCl (Flomax) 0.4 mg BEDTIME ORAL 03/04/19 21:00 04/02/19 20:59 03/07/19 21:44 Zolpidem Tartrate (Ambien) 5 mg HSPRN PRN ORAL Insomnia 03/04/19 21:00 03/10/19 20:59 Og Hinkle MD Mar 08, 2019 10:56
--- NOTE | 2019-03-08 11:04 | Infectious Diseases Prog Note ---
Assessment/Plan Assessment/Plan Abx: Ceftriaxone x1 03/03 Ertapenem 03/05- Assessment: Probable UTI -u/a wbc tnct, nit +, leuk +3; Ucx >100k ESBL E.coli (S Zosyn, bactrim, Ertapenem) -Abd US: Very limited evaluation showing bilateral hydronephrosis. Thickened bladder wall. Robertson catheter noted. Correlate for cystitis. Left Nephroureteral stent not well seen Afebrile No leukocytosis -CXR: no acute disease KENN, improving Hyperkalemia, SP hx of UTI bladder CA c/w hydronephrosis s/p nephrostomy -Sp Cystoscopy and left ureteral stent placement on 12/31/2018 -s/p L nephrostomy tube placement 11/26/18; exchanged on December 2018 -11/25/18 SP Cystoscopy, urethral calibration, transurethral resection of extensive bladder tumor with fulguration, and right retrograde pyelogram. -Findings: The patient had what appeared to be a large bladder tumor that involved most of the left side of the bladder extending posteriorly and completely obliterating the left ureteral orifice. I was unable to place a stent on the left side. hx of UTI hx of hematochezia 2ry to hemorrhoids Dm2 Dementia HTN BPH urinary incontinence AV dissociation w/ conduction s/p PPM metabolic encephalopathy seizure disorders CVA [place] resident hypothyroidism dysphagia iron def anemia Plan: -Continue Ertapenem #4/5 for probable UTI -01/01 Sp PO fluconazole # 3- will treat funguria -12/31 Sp Cefepime #5/5 for presumed UTI -12/28 SP IV Vancomycin #2 -f/u cx -Monitor CBC/CMP, temperatures -aspiration precautions Thank you for this consultation. Will continue to follow along with you. Discussed with RN. Subjective Allergies: Coded Allergies: No Known Allergies (Unverified , 04/09/16) Subjective afebrile no leukocytosis Objective Vital Signs Last 24 Hour Vital Signs Date Time Temp Pulse Resp B/P (MAP) Pulse Ox O2 Delivery O2 Flow Rate FiO2 03/08/19 08:00 Room Air 03/08/19 08:00 97.3 61 18 108/62 (77) 94 03/08/19 04:00 97.4 59 16 96/59 (71) 94 03/08/19 00:00 96.5 62 16 97/57 (70) 96 03/07/19 21:00 Room Air 03/07/19 20:00 97.4 62 17 100/57 (71) 98 03/07/19 15:57 98.2 60 18 94/45 (61) 98 03/07/19 12:04 96.8 60 19 99/47 (64) 99 Height (Feet): 5 Height (Inches): 7.00 Weight (Pounds): 165 Objective General Appearance: WD/WN, no apparent distress Lines, tubes and drains: peripheral HEENT: normocephalic Neck: non-tender, normal alignment Respiratory/Chest: chest wall non-tender, lungs clear Abdomen: normal bowel sounds, non tender Genitourinary/Rectal: normal genital exam Extremities: normal range of motion Laboratory Tests Test 03/08/19 05:18 White Blood Count 9.5 K/UL (4.8-10.8) Red Blood Count 3.36 M/UL (4.70-6.10) L Hemoglobin 9.8 G/DL (14.2-18.0) L Hematocrit 28.8 % (42.0-52.0) L Mean Corpuscular Volume 86 FL (80-99) Mean Corpuscular Hemoglobin 29.2 PG (27.0-31.0) Mean Corpuscular Hemoglobin Concent 34.0 G/DL (32.0-36.0) Red Cell Distribution Width 15.1 % (11.6-14.8) H Platelet Count 148 K/UL (150-450) L Mean Platelet Volume 4.6 FL (6.5-10.1) L Neutrophils (%) (Auto) 68.5 % (45.0-75.0) Lymphocytes (%) (Auto) 22.5 % (20.0-45.0) Monocytes (%) (Auto) 5.2 % (1.0-10.0) Eosinophils (%) (Auto) 3.2 % (0.0-3.0) H Basophils (%) (Auto) 0.7 % (0.0-2.0) Erythrocyte Sedimentation Rate 123 MM/HR (0-20) H Sodium Level 139 MMOL/L (136-145) Potassium Level 4.0 MMOL/L (3.5-5.1) Chloride Level 107 MMOL/L (98-107) Carbon Dioxide Level 25 MMOL/L (21-32) Anion Gap 7 mmol/L (5-15) Blood Urea Nitrogen 29 mg/dL (7-18) H Creatinine 1.1 MG/DL (0.55-1.30) Estimat Glomerular Filtration Rate mL/min (>60) Glucose Level 88 MG/DL (74-106) Calcium Level 9.2 MG/DL (8.5-10.1) Phosphorus Level 2.7 MG/DL (2.5-4.9) Magnesium Level 2.0 MG/DL (1.8-2.4) Total Bilirubin 0.3 MG/DL (0.2-1.0) Aspartate Amino Transf (AST/SGOT) 12 U/L (15-37) L Alanine Aminotransferase (ALT/SGPT) 6 U/L (12-78) L Alkaline Phosphatase 70 U/L (46-116) C-Reactive Protein, Quantitative 1.8 mg/dL (0.00-0.90) H Total Protein 6.7 G/DL (6.4-8.2) Albumin 2.3 G/DL (3.4-5.0) L Globulin 4.4 g/dL Albumin/Globulin Ratio 0.5 (1.0-2.7) L Current Medications Medications (Trade) Dose Ordered Sig/Levi Route PRN Reason Start Time Stop Time Status Last Admin Dose Admin Acetaminophen (Tylenol) 650 mg Q4H PRN ORAL T>100.5 03/04/19 17:30 04/02/19 17:29 Clonidine HCl (Catapres Tab) 0.1 mg Q4H PRN ORAL SBP > 160mmHg 03/04/19 17:30 04/02/19 17:29 Dextrose 1,000 ml @ 60 mls/hr [id number] IV 03/05/19 10:00 04/03/19 09:59 03/08/19 04:00 Dextrose (Dextrose 50%) 25 ml Q30M PRN IV Hypoglycemia 03/04/19 17:30 04/02/19 10:29 Dextrose (Dextrose 50%) 50 ml Q30M PRN IV Hypoglycemia 03/04/19 17:30 04/02/19 10:29 Docusate Sodium (Colace) 100 mg THREE TIMES A DAY ORAL 03/05/19 09:00 04/04/19 08:59 03/08/19 08:04 Ertapenem 1 gm/ Sodium Chloride 55 ml @ 110 mls/hr Q24H IVPB 03/05/19 18:00 03/11/19 17:59 03/07/19 17:01 Finasteride (Proscar) 5 mg DAILY ORAL 03/05/19 09:00 04/03/19 08:59 03/08/19 08:04 Heparin Sodium (Porcine) (Heparin 5000 units/ml) 5,000 units EVERY 12 HOURS SUBQ 03/04/19 21:00 04/02/19 20:59 03/07/19 08:14 Insulin Aspart (NovoLOG) BEFORE MEALS AND HS SUBQ 03/04/19 21:00 04/02/19 11:29 03/07/19 16:25 Lorazepam (Ativan 2mg/ml 1ml) 0.5 mg Q4H PRN IV For Anxiety 03/04/19 17:30 03/10/19 17:29 Morphine Sulfate (Morphine Sulfate) 1 mg Q4H PRN IVP PAIN 4-10 03/04/19 17:30 03/10/19 17:29 03/05/19 03:30 Nateglinide (Starlix) 60 mg TIAC ORAL 03/05/19 06:30 04/03/19 16:29 03/08/19 06:25 Ondansetron HCl (Zofran) 4 mg Q6H PRN IVP Nausea & Vomiting 03/04/19 17:30 04/02/19 17:29 Pantoprazole (Protonix) 40 mg EVERY 12 HOURS ORAL 03/04/19 21:00 04/03/19 20:59 03/08/19 08:04 Polyethylene Glycol (Miralax) 17 gm HSPRN PRN ORAL Constipation 03/04/19 21:00 04/02/19 20:59 Tamsulosin HCl (Flomax) 0.4 mg BEDTIME ORAL 03/04/19 21:00 04/02/19 20:59 03/07/19 21:44 Zolpidem Tartrate (Ambien) 5 mg HSPRN PRN ORAL Insomnia 03/04/19 21:00 03/10/19 20:59 Tawny Darby M.D. Mar 08, 2019 11:04
--- NOTE | 2019-03-08 11:14 | NUR ---
RD ASSESSMENT & RECOMMENDATIONS SEE CARE ACTIVITY FOR COMPLETE ASSESSMENT DAILY ESTIMATED NEEDS: Needs based on DM 68kg 25-30 kcals/kg 5161-9396 total kcals 1-1.5 g protein/kg 68-102 g total protein 20-25 mL/kg 7183-4437 total fluid mLs NUTRITION DIAGNOSIS: * Swallowing and chewing difficulty R/T dysphagia and poor dentition as evidenced by pt on [facility] soft chopped diet. fair po intake. * altered nutrition related lab values r/t diabetes as evidenced by A1C 7.0. CURRENT DIET: CCHO MED, ms chopped PO DIET RECOMMENDATIONS: CCHO MED / texture per HEADER BOSS ADDITIONAL RECOMMENDATIONS: 1) Calibrated bedscale wt for accurate CBW 2) HEADER BOSS evaluation for appropriate texture-> pt may benefit from puree 3) Consider calorie count for po intake eval 4) Glucerna 1 tetra robinson BID 5) Rec WC eval for BL heels -> Rec AMOL BID for skin integrity . .
--- NOTE | 2019-03-08 11:49 | NUR ---
DISCHARGE PLANNED PATIENT IS RETURNING TO [facility] ROOM 3B SKILLED T: [phone] FOR NURSE TO NURSE REPORT [facility] HAS BEEN ARRANGED FOR 1330 ANALYSIS ENGINEER TRANSFER FORM COMPLETED MESSAGE LEFT FOR GRANDDAUGHTER, LETY
[2019-03-08 11:51] VITALS: BP 106/59
--- NOTE | 2019-03-08 12:32 | NUR ---
NURSE NOTES Notified DR MELCHOR PATIENT STILL WITH [facility] CATH WITH ORDER D/C [facility] CATH, [facility] CATH DCD TOLERATED WELL DONELL ALCANTAR
--- NOTE | 2019-03-08 13:19 | NUR ---
nurse notes with order discharge back to SNF, [facility], Patient agreed with the plan of care, report given to Magi MARLEY accordingly, Robertson cath dcd as ordered, tolerated well DONELL ALCANTAR
--- NOTE | 2019-03-08 15:15 | NUR ---
nurse notes 1510 incontinent of urine, perineal care rendered, patient discharge with HL for IV - atb, HL patent on right FA, dressing clean dry and intact, 1515 discharged in stable condition accompanied ambulance personnel , no belongings sent, report given to ambulance personnel, discharged via ambulance, DONELL ALCANTAR
--- NOTE | 2019-03-09 10:20 | Discharge Summary ---
Discharge Summary Discharge Summary _ DATE OF ADMISSION: 03/03/2019 DATE OF DISCHARGE: 03/08/2019 DISCHARGED BY: Dr. Lowe REASON FOR ADMISSION: [] 83 years old male with past medical history of bladder cancer, diabetes mellitus, hypertension, CVA, dementia, resident of [facility], presented with a complaint of generalized weakness. Upon evaluation in emergency department patient was found to have severe hyperkalemia acute tubular necrosis and admitted for further treatment. Upon evaluation vital signs reveal a blood pressure 84/51.. Laboratory work-up revealed no leukocytosis hemoglobin 11.9 hematocrit 35.5. Potassium 6.4, UN 172, creatinine 3.2. Troponin negative. EKG reveals normal sinus rhythm, no acute ischemic changes. Chest x-ray revealed no acute cardiopulmonary pathology. Abdominal ultrasound revealed thickened bladder wall. Robertson catheter. Correlate for cystitis. Left nephroureteral stent not well seen. No acute findings Patient subsequently admitted for further management. CONSULTANTS: pulmonary/critical care Dr. Hinkle ID specialist Dr. Darby [facility] COURSE: Patient admitted and started on IV fluids with assuring patency of urinary outflow. Kayexalate provided for treatment of hyperkalemia. Pain management was addressed. Symptomatic treatment provided. Renal parameters and electrolytes were closely monitored. Electrolytes corrected further as needed. Potassium down to 4.0. BUN from 172 down to 29 and creatinine from 3.2 down to 1.1. Acute kidney injury was likely due to dehydration Magnesium was replaced and prior to discharge 2.0. Lipid panel was stable. Hemoglobin and hematocrit were closely monitored with goal to keep hemoglobin above 7 . Prior to discharge hemoglobin 9.8, hematocrit 28.8. Urine culture revealed E. coli ESBL. Antibiotic provided as per ID recommendation. Patient will need to complete antibiotic course at the facility as advised by ID specialist. Acute metabolic encephalopathy was probably due to acute kidney injury. Mental status back to bed at baseline. Blood pressure stabilized with IV hydration, however no need for antihypertensive medication at this time. Blood sugar was managed with sliding scale of insulin. GI prophylaxis provided. Proscar and Flomax continued. Bowel regimen instituted. Supportive care provided. Patient clinically stabilized and was ready for transfer back to [facility] for continuation of care. FINAL DIAGNOSES: Acute metabolic encephalopathy (probably due to acute kidney injury) Hyperkalemia-resolved Acute kidney injury/acute renal failure-resolved UTI with a E. coli ESBL History of bladder cancer with hydronephrosis , status post nephrostomy tube placement and subsequent exchange in December 2018 History of hypertension Alzheimer dementia Chronic CVA Diabetes mellitus AV conduction defect DISCHARGE MEDICATIONS: See Medication Reconciliation list. DISCHARGE INSTRUCTIONS: Patient was discharged to the [facility]. Follow up with medical doctor at the facility. I have been assigned to dictate discharge summary for this account. I was not involved in the patient's management. Ellen Mei NP Mar 09, 2019 10:20
== END 2019-03-08 15:13 | DRG 682 ==
LOC: EDBD 06:42 → EDSEX 06:42 → EMR 07:15 → 2E 09:20 → EDBEDREQ 10:00 → 4E 03-04 16:55
DX: N17.0 Acute kidney failure with tubular necrosis (principal); G93.41 Metabolic encephalopathy; N39.0 Urinary tract infection, site not specified; G30.0 Alzheimer's disease with early onset; F02.80 Dementia in other diseases classified elsewhere, unspecified severity, without behavioral disturbance, psychotic disturbance, mood disturbance, and anxiety; I10 Essential (primary) hypertension; E11.9 Type 2 diabetes mellitus without complications; Z95.0 Presence of cardiac pacemaker; N13.1 Hydronephrosis with ureteral stricture, not elsewhere classified; Z85.51 Personal history of malignant neoplasm of bladder; E87.5 Hyperkalemia; B96.20 Unspecified Escherichia coli [E. coli] as the cause of diseases classified elsewhere; Z16.12 Extended spectrum beta lactamase (ESBL) resistance; E86.0 Dehydration; E03.9 Hypothyroidism, unspecified; R13.10 Dysphagia, unspecified
CPT/HCPCS: 36415; 71045; 76705; 80053; 80061; 81001; 81003; 82436; 82550; 82553; 82607; 82746; 82962; 82977; 83036; 83735; 83880; 84100; 84133; 84300; 84439; 84443; 84481; 84484; 84550; 85025; 85610; 85651; 85730; 86140; 87081; 87086; 87181; 89050; 93005; 96361; 96365; 96375; 99291; J1815

== ENCOUNTER 2019-11-23 05:23 | Inpatient (IN) | payer MEDICARE, MEDICAID ==
[2019-11-23] VITALS (15 sets, daily range): BP systolic 96–140; BP diastolic 51–69
[~2019-11-23] VITALS: Ht 175.3 cm; Wt 67.1 kg
[~2019-11-23 05:23] MED LIST changes: +ATIVAN1 MG ORAL; +ATROPINE SULFATE5 ML PO; +BISACODYL10 M1 RC; +DURAMORPH PO; +FERROUS SU220 MG/51 PO; +INVANZ1 G1 IM; +IPRATROPIU0.2 MG/1 M HHN; +MORPHINE S20 MG/5 ML PO; +MULTI-VITAMIN1 EACH PO; +MULTIVITAMINS1 EAC8 ORAL; +PRO-STAT LIQUID30 ML ORAL; +PROSTAT PO; +TYLENOL650 MG ORAL; +ZOFRAN ODT8 MG ORAL
[2019-11-23] MEDS ORDERED: ceFAZolin sod 1 GM in NS 55 ML IVPB SCH (06:15)
[2019-11-23] MEDS ORDERED: UTI-STAT L3875 MG/31 PO (06:30)
[2019-11-23] MEDS ORDERED: NORCO 5-325 TA1 EAC1 ORAL (06:30)
[2019-11-23] MEDS ORDERED: Iothalamate Meglumine 60% 30ML INJ ONE (06:50)
--- NOTE | 2019-11-23 06:57 | Anethesia Preoperative Eval ---
Anesthesia Pre-op PMH/ROS General Date of Evaluation: Nov 23, 2019 Time of Evaluation: 07:18 Anesthesiologist: Jim ASA Score: ASA 4 Mallampati Score Class I : Soft palate, uvula, fauces, pillars visible Class II: Soft palate, uvula, fauces visible Class III: Soft palate, base of uvula visible Class IV: Only hard plate visible Mallampati Classification: Class III Surgeon: Tiffany Diagnosis: Bladder CA Surgical Procedure: Cystoscopy, TURBT, L Srent Change Anesthesia History: none Family History: no anesthesia problems Allergies: Coded Allergies: No Known Allergies (Unverified , 04/09/16) Medications: see eMAR Patient NPO?: Yes Past Medical History Cardiovascular: Reports: HTN, arrhythmia - Pacemaker Gastrointestinal/Genitourinary: Reports: other - Bladder CA, BPH 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: Reports: dementia - Parkinsons, Epilepsy, depression/ anxiety Endocrine: Reports: DM, hypothyroidism Hematology/Immune: Reports: anemia Musculoskeletal/Integumentary: Reports: other - Weakness PSxH Narrative: Yes Anesthesia Pre-op Phys. Exam Physician Exam Last Vital Signs Date Time Temp Pulse Resp B/P (MAP) Pulse Ox O2 Delivery O2 Flow Rate FiO2 11/23/19 06:19 Room Air 11/23/19 06:04 97.7 59 18 132/69 100 Constitutional: NAD Neurologic: CN 2-12 intact Cardiovascular: RRR Respiratory: CTA Gastrointestinal: S/NT/ND Airway Exam Mallampati Score: Class III MO: limited ROM: limited Teeth: missing Anesthesia Pre-op A/P Risk Assessment & Plan Assessment: ASA 4 Plan: GA Status Change Before Surgery: No Pre-Antibiotics Dru Gram Cefoxitin Given Within 1 Hr of Incision: Yes Time Given: 07:36 Adan Fernandez MD Nov 23, 2019 06:57
[2019-11-23] MEDS ORDERED: cefOXitin 2gm Inj ONE (07:05)
[2019-11-23] MEDS ORDERED: Propofol 200mg/20ml IV ONE (07:09)
[2019-11-23] MEDS ORDERED: Lidocaine 1% MPF 10mg/ml 5ml ONE (07:09)
[2019-11-23] MEDS ORDERED: Sodium Chloride 10ml vial INJ ONE (07:09)
[2019-11-23] MEDS ORDERED: fentaNYL 100 mcg/2 mL IV ONE (07:10)
[2019-11-23] MEDS ORDERED: Midazolam 2mg/2ml Inj ONE (07:10)
[2019-11-23] MEDS ORDERED: LR 1000ml 1,000 ML IVLG SCH (07:17)
--- NOTE | 2019-11-23 07:27 | Pre-Procedure Note/Attestation ---
Pre-Procedure Note/Attestation Complete Prior to Procedure Planned Procedure: left Procedure Narrative: cysto, RPG, stent change, bladder biopsy, TURBT, poss ureteroscopy Indications for Procedure Pre-Operative Diagnosis: bladder ca hx, hydro Attestation I attest that I discussed the nature of the procedure; its benefits; risks and complications; and alternatives (and the risks and benefits of such alternatives ), prior to the procedure, with the patient (or the patient's legal sales service representative). I attest that, if there was a reasonable possibility of needing a blood transfusion, the patient (or the patient's legal sales service representative) was given the [facility] standardized written summary, pursuant to the [place] Blood Safety Act ([place] Health and Safety Code # 1645, as amended). I attest that I re-evaluated the patient just prior to the surgery and that there has been no change in the patient's H&P, except as documented below: Macho Allen MD Nov 23, 2019 07:27
[2019-11-23] MEDS ORDERED: Metoclopramide 10mg/2ml Inj IVP PRN (07:30)
[2019-11-23] MEDS ORDERED: Atropine Sulfate 0.4mg/ml inj IVP PRN (07:30)
[2019-11-23] MEDS ORDERED: DiphenhydrAMINE 50mg/ml Inj IVP PRN (07:30)
[2019-11-23] MEDS ORDERED: Labetalol 5mg/ml 20ml vial IV PRN (07:30)
[2019-11-23] MEDS ORDERED: Midazolam 2mg/2ml Inj IVP PRN (07:30)
[2019-11-23] MEDS ORDERED: LORazepam Inj 2mg/ml 1ml IV PRN (07:30)
[2019-11-23] MEDS ORDERED: Hydromorphone 0.5mg/0.5ml inj IVP PRN (07:30)
[2019-11-23] MEDS ORDERED: fentaNYL 100 mcg/2 mL IV PRN (07:30)
[2019-11-23] MEDS ORDERED: Acetaminophen (Non formulary) 100 ML IV ONE (07:30)
[2019-11-23] MEDS ORDERED: HYDROcodone/Acetamin 5/325 tab ORAL PRN (07:30)
[2019-11-23] MEDS ORDERED: Meperidine 25mg/0.5ml Inj (FOR RIGORS ONLY) IV PRN (07:30)
[2019-11-23] MEDS ORDERED: oxyCODONE HCL/Acetaminophen 5/325mg ORAL PRN (07:30)
[2019-11-23] MEDS ORDERED: HYDROcodone/Acetamin 7.5/325 tab ORAL PRN (07:30)
[2019-11-23] MEDS ORDERED: Ketorolac 30mg Inj IV PRN ×2 (07:30)
[2019-11-23] MEDS ORDERED: NS Irrig 4000ml IRRIG ONE ×2 (07:54→08:39)
[2019-11-23] MEDS ORDERED: Sterile Water Irrig 1000ml IRRIG ONE (07:56)
[2019-11-23] MEDS ORDERED: Sterile Water Irrig 2000ml IRRIG ONE ×3 (07:56→08:38)
[2019-11-23] MEDS ORDERED: Rocuronium Bromide 50mg/5ml Inj IV ONE (08:43)
[2019-11-23] MEDS ORDERED: Sugammadex Sodium 200mg/2ml vial IV ONE (09:00)
[2019-11-23] MEDS ORDERED: Neostigmine 1mg/ml 10ml Inj ONE (09:02)
[2019-11-23] MEDS ORDERED: Glycopyrrolate 0.2mg/ml 1ml Vial ONE (09:02)
--- NOTE | 2019-11-23 09:27 | Brief Operative Note ---
Immediate Post Operative Note Operative Note Pre-op Diagnosis: bladder ca hx, hydro Procedure: cysto, TURBT, left ureteroscopy with dilation, RPG, exchange of ureteral stent Post-op Diagnosis: same as pre-op Surgeon: renetta Anesthesiologist: george Anesthesia: general Specimen: yes Complications: none Fluids: NS Implant(s) used?: Yes - 7f x 26 cm left ureteral stent Macho Allen MD Nov 23, 2019 09:26
--- NOTE | 2019-11-23 09:36 | Immediate Post-Op Evaluation ---
Immediate Post-Op Evalulation Immediate Post-Op Evalulation Procedure: Cystoscopy, TURBT, L Srent Change Date of Evaluation: Nov 23, 2019 Time of Evaluation: 09:49 IV Fluids: 1000 LR Blood Products: 0 Estimated Blood Loss: 20 Urinary Output: 200 Blood Pressure Systolic: 132 Blood Pressure Diastolic: 83 Pulse Rate: 60 Respiratory Rate: 16 O2 Sat by Pulse Oximetry: 100 Temperature (Fahrenheit): 97 Pain Score (1-10): 1 Nausea: No Vomiting: No Complications 0 Patient Status: awake, reacts, patent, none Hydration Status: adequate Dru Grams Cefoxitin IV Given Within 1 Hr of Incision: Yes Time Given: 07:36 Adan Fernandez MD Nov 23, 2019 09:36
--- NOTE | 2019-11-23 11:40 | 48 Hour Post Anesthesia Eval ---
Post Anesthesia Evaluation Procedure: Cystoscopy, TURBT, L Srent Change Date of Evaluation: Nov 23, 2019 Time of Evaluation: 11:39 Blood Pressure Systolic: 124 0: 54 Pulse Rate: 61 Respiratory Rate: 16 Temperature (Fahrenheit): 97.2 O2 Sat by Pulse Oximetry: 100 Airway: patent Nausea: No Vomiting: No Pain Intensity: 1 Hydration Status: adequate Cardiopulmonary Status: Stable Mental Status/LOC: patient returned to baseline Follow-up Care/Observations: 0 Post-Anesthesia Complications: 0 Follow-up care needed: N/A Adan Fernandez MD Nov 23, 2019 11:40
--- NOTE | 2019-11-23 11:43 | Diagnostic Imaging Report ---
Indication: Flank pain. Ureteral stent exchange. Technique: Intraoperative scopic imaging from urologic procedure Fluoroscopy time 40.9 seconds Total fluoroscopy dose 10.61 mGy Total number fluoroscopic images obtained: 8 Operating surgeon: MD Tiffany Findings: Intraoperative fluoroscopic imaging from urologic procedure submitted for archival the PACS. Images demonstrate exchange of left ureteral stent. The left renal collecting system appears somewhat dilated. IMPRESSION: Intraoperative fluoroscopic imaging from urologic procedure. Please see operative report.
--- NOTE | 2019-11-23 11:45 | NUR ---
NURSE NOTES: PT RECEIVED FROM PACU. PT RESTNG IN BED. VSS AND IN NO APPARENT DISTRESS AT THIS TIME. SKIN CHECK DONE AND NO PRESSURE ULCERS OR WOUNDS NOTED. [address] WAY SULLIVAN INTACT, DRAINING BRIGHT RED COLORED URINE. NO BLOOD CLOTS NOTED. NO TRACTION APPLIED TO SULLIVAN PER DR IVEY'S ORDERS. PT PLACED IN HIGH TORO'S POSITION WITH HOB ELEVATED. BED IN LOWEST POSITION WITH BEDSIDE RAILS X3 RAISED. BED ALARM ON. WILL CONTINUE TO MONITOR.
[2019-11-23] MEDS: LR 1000ml 1,000 ML IV SCH ×2 (11:50→22:56)
--- NOTE | 2019-11-23 12:25 | NUR ---
NURSE NOTES: PT WITH RIGHT SIDED WEAKNESS. PER PT, HE HAS HAD WEAKNESS FOR A LONG TIME. PT NEEDS 1:1 ASSIST WITH MEALS. PT ATE CLEAR LIQUID DIET WITHOUT ANY NAUSEA. WILL ADVANCE DIET TOLERATED PER ORDERS.
--- NOTE | 2019-11-23 12:56 | History & Physical ---
History and Physical History & Physicial Dictated for Int Med-DR Lowe no. [id number]. Jean-Claude Peter MD Nov 23, 2019 12:56
[2019-11-23] MEDS ORDERED: Ondansetron ODT 8mg tab ORAL PRN (13:15)
[2019-11-23] MEDS: ceFAZolin sod 1 GM in D5W 55 ML IVPB SCH ×2 (14:20→22:56)
[2019-11-23 15:11] LABS: APPEARANCE,URINE VERY CLOUDY; BILIRUBIN, URINE NEGATIVE (NEGATIVE); COLOR,URINE RED; GLUCOSE, URINE (UA) NEGATIVE (NEGATIVE); KETONES,URINE 1+ (NEGATIVE); LEUKOCYTE ESTERASE ,URINE 3+ (NEGATIVE); NITRITE,URINE NEGATIVE (NEGATIVE); PH,URINE 6.5 (4.5-8.0); PROTEIN,URINE 4+ (NEGATIVE); UROBILINOGEN,URINE NORMAL MG/DL (0.0-1.0)
[2019-11-23] MEDS ORDERED: NovoLOG Insulin Flexpen SUBQ SCH (16:30)
[2019-11-23] MEDS: NovoLOG Insulin Flexpen SUBQ SCH ×2 (16:51→20:37)
--- NOTE | 2019-11-23 18:57 | NUR ---
HAND-OFF: Report given to Chris MAGANA RN.
--- NOTE | 2019-11-23 19:35 | NUR ---
NURSE NOTES: Received report from DONELL Duarte. Patient is asleep and comfortable. In no apparent distress. Robertson catheter noted, draining bright red drainage. No clots found. Draining well. IVF noted. Will continue to monitor.
[2019-11-23 20:13] LABS: ALANINE AMINOTRANSFERASE 13 U/L (12-78); ALBUMIN 2.5 G/DL (3.4-5.0); ALBUMIN/GLOBULIN RATIO 0.6 (1.0-2.7); ALKALINE PHOSPHATASE 83 U/L (46-116); ANION GAP 11 mmol/L (5-15); ASPARTATE AMINO TRANSFERASE 11 U/L (15-37); BILIRUBIN,TOTAL 0.5 MG/DL (0.2-1.0); BLOOD UREA NITROGEN 23 mg/dL (7-18); CALCIUM 8.5 MG/DL (8.5-10.1); CARBON DIOXIDE 24 MMOL/L (21-32); CHLORIDE 103 MMOL/L (98-107); CREATININE 1.3 MG/DL (0.55-1.30); POTASSIUM 4.9 MMOL/L (3.5-5.1); SODIUM 138 MMOL/L (136-145)
[2019-11-23 20:15] LABS: HEMATOCRIT 31.2 % (42.0-52.0); HEMOGLOBIN 10.1 G/DL (14.2-18.0); MEAN CORPUSCULAR VOLUME 91 FL (80-99); PLATELET COUNT 182 K/UL (150-450); RED BLOOD COUNT 3.43 M/UL (4.70-6.10); RED CELL DISTRIBUTION WIDTH 13.9 % (11.6-14.8); WHITE BLOOD COUNT 17.1 K/UL (4.8-10.8)
[2019-11-23] MEDS: Tamsulosin 0.4mg cap ORAL SCH (20:36)
--- NOTE | 2019-11-23 20:59 | History and Physical Report ---
DATE OF ADMISSION: 11/23/2019 CHIEF COMPLAINT: Patient is an 84-year-old male with history of bladder cancer presents with chief complaint of bladder resection. HISTORY OF PRESENT ILLNESS: Patient has a history of bladder cancer dating back to November 2018. Patient was admitted to [facility] in August of 2019. Please see history and physical and discharge summary dictated at that time. Patient has a history of bladder cancer. Patient was admitted for transurethral resection of bladder tumor by Dr. Macho Allen. Patient presents today with chief complaint of bladder resection. REVIEW OF SYSTEMS: CONSTITUTIONAL: Patient denies weight loss or gain. Patient denies fevers or chills. HEENT: Patient denies ear or throat pain. Patient denies headache. CARDIOVASCULAR: Patient denies palpitations or chest pain. CHEST: Patient denies wheeze or shortness of breath. ABDOMINAL: Patient denies nausea, vomiting, diarrhea, or constipation. GENITOURINARY: Patient complains of occasional hematuria. Patient denies dysuria. NEUROMUSCULAR: Patient denies seizures or generalized weakness. PAST MEDICAL HISTORY: Significant for: 1. Bladder cancer, diagnosed in November 2018. 2. Hypertension. 3. Diabetes type 2. 4. Atrioventricular conduction defect. 5. Alzheimer dementia. 6. Left hydronephrosis. 7. History of cerebrovascular disease, status post cerebrovascular accident. 8. Right hemiplegia. PAST SURGICAL HISTORY: Significant for: 1. Pacemaker implantation. 2. Transurethral bladder mass resection on 11/24/2018. 3. Left nephrostomy tube placed on 11/26/2018. 4. Cystoscopy and left ureteral stent placement on 12/31/2018. CURRENT MEDICATIONS: 1. Finasteride 5 mg p.o. daily. 2. Starlix 120 mg p.o. 3 times daily. 3. Flomax 0.4 mg p.o. at bedtime. ALLERGIES: No known drug allergies. SOCIAL HISTORY: [facility] a [facility]. Patient denies tobacco or alcohol use. PHYSICAL EXAMINATION: VITAL SIGNS: Temperature 97.3, respirations 15, pulse 60, blood pressure 137/55. GENERAL: Patient is well-developed, well-nourished male, in no apparent distress. HEENT: Eyes, pupils are equal and responsive to light and accommodation. Extraocular movements are intact. NECK: Supple without lymphadenopathy. CHEST: Lungs are clear to auscultation bilaterally without wheezes or rales. CARDIOVASCULAR: Regular rhythm and rate. S1, S2 are normal without murmurs, rubs, or gallops. ABDOMEN: Soft, nontender, nondistended. Positive bowel sounds. No evidence of hepatosplenomegaly. Currently, no rebound or guarding noted. NEUROLOGIC: Patient does have a right upper extremity weakness. Motor strength is 3/5 on the right and 5/5 on the left. Deep tendon reflexes are 2+ plantar. LABORATORY STUDIES: Pending. ASSESSMENT: This is an 84-year-old male. 1. Bladder cancer. 2. Left hydronephrosis. 3. Hypertension. 4. Diabetes type 2. 5. Atrioventricular conduction defect. 6. Alzheimer dementia. 7. Cerebrovascular disease. 8. Right hemiplegia. TREATMENT: 1. Bladder cancer/left hydronephrosis. A Urology consultation has been obtained with Dr. Macho Allen. Patient is scheduled for transurethral resection of bladder tumor and ureteroscopy of the left side. We will follow recommendations of Urology. 2. Diabetes type 2. NovoLog sliding scale has been instituted. 3. Atrioventricular conduction defect. Patient is status post pacemaker implantation. 4. Alzheimer dementia. 5. Cerebrovascular disease. 6. Right hemiplegia. Jean-Claude Peter M.D. DR: LALO JOB#: [id number] CC:
--- NOTE | 2019-11-23 21:59 | Operative Note - Dictated ---
DATE OF OPERATION: 11/23/2019 PREOPERATIVE DIAGNOSES: Bladder cancer, hematuria, left-sided hydronephrosis. POSTOPERATIVE DIAGNOSES: Bladder cancer, hematuria, left-sided hydronephrosis. PROCEDURE PERFORMED: Cystoscopy, urethral calibration, transurethral resection and fulguration of extensive bladder tumors, left ureteroscopy with dilation and removal and exchange of left ureteral stent, and retrograde pyelogram. OPERATING SURGEON: Mahco Allen MD. ANESTHESIOLOGIST: Adan Fernandez MD. ANESTHESIA: General. INDICATIONS FOR PROCEDURE: This is an unfortunate 84-year-old gentleman. He has a history of hematuria. He has a history of known bladder cancer which was treated last year. He has a history of left-sided hydronephrosis presumably secondary to obstruction from the tumor. He has an indwelling ureteral stent that was placed last year. Unfortunately, the patient was lost to followup for a little while. He was recently re-evaluated and was found to have intermittent hematuria. He was found to have recurrence of the tumor. Also, stent has been in for an extended period and required to be exchanged. The patient was recently considered for hospice evaluation and after extensive discussion with the patient's family decision was made to proceed with the above mainly for palliation and comfort and to prevent bleeding and also exchange the stent as such he was scheduled for the above procedure. Possible risks and complication were discussed with the patient's son who gave consent. No guarantees were given or implied. FINDINGS: The patient had extensive bladder tumors involving the left side and posterior side of the bladder as well as the right posterior side. These were resected and fulgurated. He also had an indwelling left ureteral stent, which was removed and exchanged. New stent was placed. PROCEDURE IN DETAIL: Informed consent was obtained from the patient' son. The patient was brought to the operating room and then placed in supine position. After successful general anesthesia was induced, the patient was placed in a modified dorsal lithotomy position and genitalia was then prepped and draped in usual sterile fashion. Preoperative IV antibiotics administrated. Time-out was performed. At this point, the distal urethral meatus was dilated. Cystoscopy was then performed. Urethra was without strictures. Prostate was mildly obstructed. The bladder was inspected. He had old clots in the bladder. He had extensive tumor that involved the left side of the bladder, mostly extending posteriorly as there was some tumor on the right posterior side close to the dome. The old stent was visible in the bladder. At this point, the old clots were evacuated and then I was able to pass a wire next to the old stent into the left renal collecting system and the indwelling stent was removed intact. A wire was left as a safety wire. At this point, a rigid ureteroscopy was then performed. I was able to get into the ureter. There was some stenosis and I did not see any obvious tumors inside the ureter obstruction at the level of the ureterovesical junction. At this point, the ureteroscope was removed. The area was then dilated with a dual-lumen catheter with 10-Cambodian. Contrast was injected. There was mild to moderate dilatation of the left collecting system. The safety wire was loaded over cystoscope and new 7-Cambodian x 26 cm double-J stent was then passed up into the collecting system with fluoroscopic and visual guidance. It appeared to be in good position with a good curl in the kidney, upper pole, and bladder. At this point, the continuous resectoscope sheath was inserted with the visual obturator. This was a bipolar system and I basically resected any exophytic tumor or any area that was oozing or friable. Again, he had very extensive tumor burden and the resection was mainly to remove any friable tissue to prevent bleeding. I also cauterize any abnormal looking area. Fairly good hemostasis was obtained. All the fragments were evacuated. The Robertson catheter was left to gravity drainage, . The urine was slightly blood tinged at the end of the procedure. The patient was awakened and was taken to the recovery room in stable condition. Blood loss is minimal. No complications. Macho Allen M.D. DR: Oscar JOB#: [id number] CC: Jaziel Lowe M.D.; Fax#: [phone] JOSÉ KINCAID M.D. ; FAX#: [phone]
[2019-11-24] VITALS: BP 104/60
[2019-11-24 04:00] VITALS: BP 120/60
[2019-11-24] MEDS: NovoLOG Insulin Flexpen SUBQ SCH ×4 (06:00→20:16)
[2019-11-24] MEDS: ceFAZolin sod 1 GM in D5W 55 ML IVPB SCH ×3 (06:00→22:08)
--- NOTE | 2019-11-24 06:26 | NUR ---
NURSE NOTES: Total urine output for my shift is 1500 mL of bright red blood urine. No clots noted.
[2019-11-24 06:33] LABS: BASOPHILS % (AUTO) 0.4 % (0.0-2.0); EOSINOPHILS % (AUTO) 0.8 % (0.0-3.0); HEMATOCRIT 27.7 % (42.0-52.0); HEMOGLOBIN 9.7 G/DL (14.2-18.0); LYMPHOCYTES % (AUTO) 10.3 % (20.0-45.0); MEAN CORPUSCULAR VOLUME 87 FL (80-99); MONOCYTES % (AUTO) 7.4 % (1.0-10.0); NEUTROPHILS % (AUTO) 81.1 % (45.0-75.0); PLATELET COUNT 165 K/UL (150-450); RED BLOOD COUNT 3.19 M/UL (4.70-6.10)
[2019-11-24 06:58] LABS: ANION GAP 9 mmol/L (5-15); BLOOD UREA NITROGEN 21 mg/dL (7-18); CALCIUM 8.5 MG/DL (8.5-10.1); CARBON DIOXIDE 26 MMOL/L (21-32); CHLORIDE 107 MMOL/L (98-107); CREATININE 1.1 MG/DL (0.55-1.30); POTASSIUM 4.3 MMOL/L (3.5-5.1); SODIUM 142 MMOL/L (136-145)
--- NOTE | 2019-11-24 07:45 | NUR ---
NURSE NOTES: Received report from DONELL Segundo. Pt in bed comfortably. No acute distress noted. Pt alert and orient x 2. Denies any pain at this time. VSS. [address] hernandez checked. Draining clear bright red urine. No blood clots noted. Bed in lowest position, locked and bed alarm on. Call light within reach. Will continue to monitor.
--- NOTE | 2019-11-24 07:45 | NUR ---
HAND-OFF: Report given to DONELL Richardson
[2019-11-24 08:00] VITALS: BP 120/59
--- NOTE | 2019-11-24 08:38 | Urology Progress Note ---
Assessment/Plan Assessment/Plan: bladder cancer hx left hydronephrosis BPH hematuria pyuria POD # 1, TURBT, exchange of left ureteral stent monitor clinically doing fair urine still moderately bloody I personally hand-irrigated hernandez, small clots keep hernandez indwelling abx prophylaxis cont flomax and proscar voiding trial later f/u on path Subjective Allergies: Coded Allergies: No Known Allergies (Unverified , 04/09/16) Subjective all noted, looks comfortable, nurses hand irrigated hernandez Objective Last 24 Hour Vital Signs Date Time Temp Pulse Resp B/P (MAP) Pulse Ox O2 Delivery O2 Flow Rate FiO2 11/24/19 08:00 98.6 80 16 120/59 (79) 97 11/24/19 04:00 98.8 62 18 120/60 (80) 95 11/24/19 00:00 98.3 76 104/60 (75) 11/23/19 21:00 Room Air 11/23/19 20:00 99.8 100 105/65 (78) 11/23/19 18:41 99.3 75 112/60 (77) 11/23/19 15:55 99.3 90 16 96/62 (73) 100 11/23/19 12:30 97.5 68 18 138/61 (86) 100 11/23/19 11:40 61 16 100 11/23/19 11:20 97.3 62 113/62 (79) 11/23/19 11:05 97.2 61 16 123/54 (77) 100 11/23/19 10:45 97.2 60 16 122/55 (77) 100 11/23/19 10:17 97.3 60 15 137/55 100 Nasal Cannula 3 11/23/19 10:10 60 12 136/57 100 Nasal Cannula 3 11/23/19 10:00 60 14 118/56 100 Nasal Cannula 3 11/23/19 09:50 60 13 115/51 100 Simple Mask 6 11/23/19 09:40 60 15 128/54 100 Simple Mask 6 11/23/19 09:36 60 16 100 11/23/19 09:35 60 12 140/61 100 Simple Mask 6 11/23/19 09:32 97.0 63 14 132/53 100 Simple Mask 6 Intake and Output 11/23/19 11/24/19 19:00 07:00 Intake Total 1870 ml 500 ml Output Total 770 ml 1500 ml Balance 1100 ml -1000 ml Intake Oral 240 ml 200 ml IV Total 1630 ml 300 ml Output Urine Total 720 ml 1500 ml Estimated Blood Loss 50 ml # Bowel Movements 2 Current Medications Medications (Trade) Dose Ordered Sig/Levi Route PRN Reason Start Time Stop Time Status Last Admin Dose Admin Acetaminophen/ Hydrocodone Bitart ([place] 5/325) 1 tab Q6H PRN ORAL Severe Pain (Pain Scale 7-10) 11/23/19 13:00 11/30/19 12:59 Cefazolin Sodium 1 gm/Dextrose 55 ml @ 110 mls/hr Q8H IVPB 11/23/19 15:00 11/30/19 14:59 11/24/19 06:00 Dextrose (Dextrose 50%) 25 ml Q30M PRN IV Hypoglycemia 11/23/19 13:00 02/21/20 12:59 Dextrose (Dextrose 50%) 50 ml Q30M PRN IV Hypoglycemia 11/23/19 13:00 02/21/20 12:59 Finasteride (Proscar) 5 mg DAILY ORAL 11/24/19 09:00 02/22/20 08:59 11/24/19 08:13 Insulin Aspart (NovoLOG) BEFORE MEALS AND HS SUBQ 11/23/19 16:30 02/21/20 16:29 11/23/19 20:37 Lactated Ringer's 1,000 ml @ 75 mls/hr [id number] IV 11/23/19 10:30 12/23/19 10:29 11/23/19 22:56 Ondansetron HCl (Zofran ODT) 8 mg Q8H PRN ORAL Nausea & Vomiting 11/23/19 13:15 12/23/19 13:14 Tamsulosin HCl (Flomax) 0.4 mg BEDTIME ORAL 11/23/19 21:00 12/23/19 20:59 11/23/19 20:36 Laboratory Tests 11/23/19 13:30: Urine Color Red, Urine Appearance Very cloudy, Urine pH 6.5, Urine Specific Newcomb 1.015, Urine Protein 4+H, Urine Glucose (UA) Negative, Urine Ketones 1+H , Urine Blood 5+H, Urine Nitrite Negative, Urine Bilirubin Negative, Urine Urobilinogen Normal, Urine Leukocyte Esterase 3+H, Urine RBC TntcH, Urine WBC 20 -30H, Urine Squamous Epithelial Cells Occasional, Urine Bacteria Few 11/23/19 19:48: White Blood Count 17.1H, Red Blood Count 3.43L, Hemoglobin 10.1L, Hematocrit 31.2L, Mean Corpuscular Volume 91, Mean Corpuscular Hemoglobin 29.5, Mean Corpuscular Hemoglobin Concent 32.4, Red Cell Distribution Width 13.9, Platelet Count 182, Mean Platelet Volume 5.8L, Neutrophils (%) (Auto) , Lymphocytes (%) ( Auto) , Monocytes (%) (Auto) , Eosinophils (%) (Auto) , Basophils (%) (Auto) , Differential Total Cells Counted 100, Neutrophils % (Manual) 90H, Lymphocytes % (Manual) 4L, Monocytes % (Manual) 3, Eosinophils % (Manual) 0, Basophils % ( Manual) 0, Band Neutrophils 3, Platelet Estimate Adequate, Platelet Morphology Normal, Red Blood Cell Morphology Normal, Prothrombin Time 11.0, Prothromb Time International Ratio 1.0, Activated Partial Thromboplast Time 30, Sodium Level 138, Potassium Level 4.9, Chloride Level 103, Carbon Dioxide Level 24, Anion Gap 11, Blood Urea Nitrogen 23H, Creatinine 1.3, Estimat Glomerular Filtration Rate > 60, Glucose Level 231H, Hemoglobin A1c 7.9H, Calcium Level 8.5, Total Bilirubin 0.5, Aspartate Amino Transf (AST/SGOT) 11L, Alanine Aminotransferase ( ALT/SGPT) 13, Alkaline Phosphatase 83, Total Protein 6.8, Albumin 2.5L, Globulin 4.3, Albumin/Globulin Ratio 0.6L 11/24/19 05:00: White Blood Count 13.0H, Red Blood Count 3.19L, Hemoglobin 9.7L, Hematocrit 27.7L, Mean Corpuscular Volume 87, Mean Corpuscular Hemoglobin 30.3, Mean Corpuscular Hemoglobin Concent 35.0, Red Cell Distribution Width 12.0, Platelet Count 165, Mean Platelet Volume 5.0L, Neutrophils (%) (Auto) 81.1H, Lymphocytes (%) (Auto) 10.3L, Monocytes (%) (Auto) 7.4, Eosinophils (%) (Auto) 0.8, Basophils (%) (Auto) 0.4, Sodium Level 142, Potassium Level 4.3, Chloride Level 107, Carbon Dioxide Level 26, Anion Gap 9, Blood Urea Nitrogen 21H, Creatinine 1.1, Estimat Glomerular Filtration Rate > 60, Glucose Level 138H, Calcium Level 8.5 Height (Feet): 5 Height (Inches): 9.00 Weight (Pounds): 148 Objective abdomen soft, no CVAT hernandez indwelling, urine blood-tinged Macho Allen MD Nov 24, 2019 08:38
[2019-11-24 12:00] VITALS: BP 114/76
[2019-11-24] MEDS: LR 1000ml 1,000 ML IV SCH (12:44)
[2019-11-24] MEDS: HYDROcodone/Acetamin 5/325 tab ORAL PRN (12:53)
--- NOTE | 2019-11-24 14:24 | NUR ---
CASE MANAGEMENT: INITIAL REVIEW 84YR OLD MALE HERE FRO SURGERY CC: BLADDER CA, SI: BLADDER CANCER . HEMATURIA . LEFT SIDED HYDRONEPHROSIS 97.7 59 18 132/69 100% ON RA WBC 17.1 H/H 10.1/31.2 BUN 23 BG 231 HA1C 7.9 ALBUMIN 2.5 IS:IVF NS BOLUS X1 IN SURGERY NOW CYSTOSCOPY, TURBT, LEFT STENT CHANGE \: 3E MED SURG UNIT DCP: HOME WHEN STABLE CASE MANAGEMENT: REVIEW 11/24/19 SI: S/P CYSTOSCOPY . TURBT . LEFT STENT CHANGE 98.6 80 16 120/59 97% ON RA WBC 13.0 H/H 9.7/27.7 BG 138 IS:IV ANCEF Q8HR IV LR@75ML/HR PROSCAR PO QD FLOMAX PO QHS NORCO PO Q6HR/PRN \: 3E MED SURG UNIT DCP: HOME WHEN STABLE
[2019-11-24 16:00] VITALS: BP 117/62
--- NOTE | 2019-11-24 17:02 | Internal Med Progress Note ---
Subjective Date of Service: Nov 24, 2019 Physician Name BrittaniJean-Claude Attending Physician Macho Allen MD Current Medications Medications (Trade) Dose Ordered Sig/Levi Route PRN Reason Start Time Stop Time Status Last Admin Dose Admin Acetaminophen/ Hydrocodone Bitart ([place] 5/325) 1 tab Q6H PRN ORAL Severe Pain (Pain Scale 7-10) 11/23/19 13:00 11/30/19 12:59 11/24/19 12:53 Cefazolin Sodium 1 gm/Dextrose 55 ml @ 110 mls/hr Q8H IVPB 11/23/19 15:00 11/30/19 14:59 11/24/19 16:22 Dextrose (Dextrose 50%) 25 ml Q30M PRN IV Hypoglycemia 11/23/19 13:00 02/21/20 12:59 Dextrose (Dextrose 50%) 50 ml Q30M PRN IV Hypoglycemia 11/23/19 13:00 02/21/20 12:59 Finasteride (Proscar) 5 mg DAILY ORAL 11/24/19 09:00 02/22/20 08:59 11/24/19 08:13 Insulin Aspart (NovoLOG) BEFORE MEALS AND HS SUBQ 11/23/19 16:30 02/21/20 16:29 11/24/19 16:27 Lactated Ringer's 1,000 ml @ 75 mls/hr [id number] IV 11/23/19 10:30 12/23/19 10:29 11/24/19 12:44 Ondansetron HCl (Zofran ODT) 8 mg Q8H PRN ORAL Nausea & Vomiting 11/23/19 13:15 12/23/19 13:14 Tamsulosin HCl (Flomax) 0.4 mg BEDTIME ORAL 11/23/19 21:00 12/23/19 20:59 11/23/19 20:36 Allergies: Coded Allergies: No Known Allergies (Unverified , 04/09/16) ROS Limited/Unobtainable: No Constitutional: Reports: no symptoms HEENT: Reports: no symptoms Cardiovascular: Reports: no symptoms Respiratory: Reports: no symptoms Gastrointestinal/Abdominal: Reports: no symptoms Genitourinary: Reports: no symptoms 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: Reports: no symptoms Subjective 84 YO M with history of bladder cancer admitted for bladder surgery. Now gross hematuria. Cover for Int Med-Dr Lowe. S/P transurethral resection of bladder tumor and stent replacement 11/23/19. Objective Last Vital Signs Date Time Temp Pulse Resp B/P (MAP) Pulse Ox O2 Delivery O2 Flow Rate FiO2 11/24/19 16:00 98.6 65 16 117/62 (80) 98 11/24/19 09:00 Room Air 11/23/19 10:17 3 Laboratory Tests Test 11/23/19 19:48 11/24/19 05:00 White Blood Count 17.1 K/UL (4.8-10.8) H 13.0 K/UL (4.8-10.8) H Red Blood Count 3.43 M/UL (4.70-6.10) L 3.19 M/UL (4.70-6.10) L Hemoglobin 10.1 G/DL (14.2-18.0) L 9.7 G/DL (14.2-18.0) L Hematocrit 31.2 % (42.0-52.0) L 27.7 % (42.0-52.0) L Mean Corpuscular Volume 91 FL (80-99) 87 FL (80-99) Mean Corpuscular Hemoglobin 29.5 PG (27.0-31.0) 30.3 PG (27.0-31.0) Mean Corpuscular Hemoglobin Concent 32.4 G/DL (32.0-36.0) 35.0 G/DL (32.0-36.0) Red Cell Distribution Width 13.9 % (11.6-14.8) 12.0 % (11.6-14.8) Platelet Count 182 K/UL (150-450) 165 K/UL (150-450) Mean Platelet Volume 5.8 FL (6.5-10.1) L 5.0 FL (6.5-10.1) L Neutrophils (%) (Auto) % (45.0-75.0) 81.1 % (45.0-75.0) H Lymphocytes (%) (Auto) % (20.0-45.0) 10.3 % (20.0-45.0) L Monocytes (%) (Auto) % (1.0-10.0) 7.4 % (1.0-10.0) Eosinophils (%) (Auto) % (0.0-3.0) 0.8 % (0.0-3.0) Basophils (%) (Auto) % (0.0-2.0) 0.4 % (0.0-2.0) Differential Total Cells Counted 100 Neutrophils % (Manual) 90 % (45-75) H Lymphocytes % (Manual) 4 % (20-45) L Monocytes % (Manual) 3 % (1-10) Eosinophils % (Manual) 0 % (0-3) Basophils % (Manual) 0 % (0-2) Band Neutrophils 3 % (0-8) Platelet Estimate Adequate Platelet Morphology Normal Red Blood Cell Morphology Normal Prothrombin Time 11.0 SEC (9.30-11.50) Prothromb Time International Ratio 1.0 (0.9-1.1) Activated Partial Thromboplast Time 30 SEC (23-33) Sodium Level 138 MMOL/L (136-145) 142 MMOL/L (136-145) Potassium Level 4.9 MMOL/L (3.5-5.1) 4.3 MMOL/L (3.5-5.1) Chloride Level 103 MMOL/L (98-107) 107 MMOL/L (98-107) Carbon Dioxide Level 24 MMOL/L (21-32) 26 MMOL/L (21-32) Anion Gap 11 mmol/L (5-15) 9 mmol/L (5-15) Blood Urea Nitrogen 23 mg/dL (7-18) H 21 mg/dL (7-18) H Creatinine 1.3 MG/DL (0.55-1.30) 1.1 MG/DL (0.55-1.30) Estimat Glomerular Filtration Rate > 60 mL/min (>60) > 60 mL/min (>60) Glucose Level 231 MG/DL (74-106) H 138 MG/DL (74-106) H Hemoglobin A1c 7.9 % (4.3-6.0) H Calcium Level 8.5 MG/DL (8.5-10.1) 8.5 MG/DL (8.5-10.1) Total Bilirubin 0.5 MG/DL (0.2-1.0) Aspartate Amino Transf (AST/SGOT) 11 U/L (15-37) L Alanine Aminotransferase (ALT/SGPT) 13 U/L (12-78) Alkaline Phosphatase 83 U/L (46-116) Total Protein 6.8 G/DL (6.4-8.2) Albumin 2.5 G/DL (3.4-5.0) L Globulin 4.3 g/dL Albumin/Globulin Ratio 0.6 (1.0-2.7) L Intake and Output 11/23/19 11/24/19 19:00 07:00 Intake Total 1870 ml 575 ml Output Total 770 ml 1500 ml Balance 1100 ml -925 ml Intake Oral 240 ml 200 ml IV Total 1630 ml 375 ml Output Urine Total 720 ml 1500 ml Estimated Blood Loss 50 ml # Bowel Movements 2 Objective PHYSICAL EXAMINATION: GENERAL: Patient is well-developed, well-nourished male, in no apparent distress. HEENT: Eyes, pupils are equal and responsive to light and accommodation. Extraocular movements are intact. NECK: Supple without lymphadenopathy. CHEST: Lungs are clear to auscultation bilaterally without wheezes or rales. CARDIOVASCULAR: Regular rhythm and rate. S1, S2 are normal without murmurs, rubs, or gallops. ABDOMEN: Soft, nontender, nondistended. Positive bowel sounds. No evidence of hepatosplenomegaly. Currently, no rebound or guarding noted. NEUROLOGIC: Patient does have a right upper extremity weakness. Motor strength is 3/5 on the right and 5/5 on the left. Deep tendon reflexes are 2+ plantar. Assessment/Plan Assessment/Plan ASSESSMENT: This is an 84-year-old male. 1. Bladder cancer. 2. Left hydronephrosis. 3. Hypertension. 4. Diabetes type 2. 5. Atrioventricular conduction defect. 6. Alzheimer dementia. 7. Cerebrovascular disease. 8. Right hemiplegia. 9. Gross hematuria TREATMENT: 1. Bladder cancer/left hydronephrosis. A Urology consultation has been obtained with Dr. Macho Allen. Patient is S/P for transurethral resection of bladder tumor and ureteroscopy of the left side on 11/23/19. We will follow recommendations of Urology. 2. Diabetes type 2. NovoLog sliding scale has been instituted. 3. Atrioventricular conduction defect. Patient is status post pacemaker implantation. 4. Alzheimer dementia. 5. Cerebrovascular disease. 6. Right hemiplegia. 7. Await urine culture results Jean-Claude Peter MD Nov 24, 2019 17:02
--- NOTE | 2019-11-24 19:21 | NUR ---
NURSE NOTES: Received report from DONELL Richardson. Rounding is done with outgoing nurse. Patient is in bed, a/o x3, and able to known his need. IV site is intact and IV fluid is running. Robertson is draining to gravity with clear bright red and yellowish urine. Bed is on alarm, locked, and lowest position. Call light within reach. Will continue to monitor.
[2019-11-24 20:00] VITALS: BP 110/58
--- NOTE | 2019-11-24 20:01 | NUR ---
HAND-OFF: Report given to DONELL Delgado.
[2019-11-24] MEDS: Tamsulosin 0.4mg cap ORAL SCH (20:15)
[2019-11-25] VITALS (7 sets, daily range): BP systolic 102–153; BP diastolic 52–74
[2019-11-25] MEDS: LR 1000ml 1,000 ML IV SCH ×2 (02:52→15:40)
[2019-11-25] MEDS: NovoLOG Insulin Flexpen SUBQ SCH ×4 (05:49→20:28)
[2019-11-25] MEDS: ceFAZolin sod 1 GM in D5W 55 ML IVPB SCH ×3 (06:19→23:15)
[2019-11-25 06:43] LABS: BASOPHILS % (AUTO) 0.7 % (0.0-2.0); EOSINOPHILS % (AUTO) 1.9 % (0.0-3.0); HEMATOCRIT 26.7 % (42.0-52.0); HEMOGLOBIN 9.2 G/DL (14.2-18.0); LYMPHOCYTES % (AUTO) 17.1 % (20.0-45.0); MEAN CORPUSCULAR VOLUME 87 FL (80-99); MONOCYTES % (AUTO) 7.2 % (1.0-10.0); NEUTROPHILS % (AUTO) 73.1 % (45.0-75.0); PLATELET COUNT 167 K/UL (150-450); RED BLOOD COUNT 3.08 M/UL (4.70-6.10); RED CELL DISTRIBUTION WIDTH 12.2 % (11.6-14.8); WHITE BLOOD COUNT 9.5 K/UL (4.8-10.8)
--- NOTE | 2019-11-25 07:21 | NUR ---
HAND-OFF: Report given to Angelica MARLEY. Patient in stable condition.
--- NOTE | 2019-11-25 07:25 | NUR ---
NURSE NOTES: Patient is in bed awake and able to verbalize needs. Stable. Denies pain or SOB. Dr. Allen irrigated hernandez. Patient instructed to use call light for assistance, verbalized understanding. Patient is in bed in locked and lowest position with call light within reach. All safety measures provided, will continue to monitor.
[2019-11-25 07:27] LABS: ANION GAP 9 mmol/L (5-15); BLOOD UREA NITROGEN 16 mg/dL (7-18); CALCIUM 8.8 MG/DL (8.5-10.1); CARBON DIOXIDE 27 MMOL/L (21-32); CHLORIDE 109 MMOL/L (98-107); POTASSIUM 3.6 MMOL/L (3.5-5.1); SODIUM 145 MMOL/L (136-145)
--- NOTE | 2019-11-25 10:51 | NUR ---
CASE MANAGEMENT: REVIEW 11/25/19 SI: ((S/P CYSTOSCOPY, TRANSURETHRAL RESECTION AND FULGURATION OF EXTENSIVE BLADDER TUMOR LEFT URETEROSCOPY WITH DILATION AND LEFT STENT CHANGE )) BLADDER CA . HEMATURIA . LEFT SIDED HYDRONEPHROSIS 98.1 67 18 122/53 98% ON RA H/H 9.2/26.7 BG 116 IS:IV ANCEF Q8HR IV LR@75ML/HR PROSCAR PO QD FLOMAX PO QHS NORCO PO Q6HR/PRN \: 3E MED SURG UNIT DCP: HOME WHEN STABLE PLAN: DC [facility] UPON DISCHARGE URINE CULTURE -PENDING
--- NOTE | 2019-11-25 15:42 | NUR ---
DISCHARGE PLANNING: PATIENT REFEREED BACK TO: [facility] T:[phone]~~~ FOR CONFIRMATION OF BED ([facility]) F:[phone] BED TO BE ASSIGNED ONCE PAPERWORK REVIEWED BY SHITAL WEBSTER F/U
--- NOTE | 2019-11-25 15:57 | NUR ---
DISCHARGE PLANNING: PATIENT ACCEPTED BACK TO: [facility] C:[phone]~~~ FOR CONFIRMATION OF BED ([facility]) F:[phone] ROOM# 38A SKILLED [facility] PLACED ON "WILL CALL FOR THE AM" LEFT VM FOR LETY COOK (T:[phone]) AND BRANDO GABRIEL (T:[phone]) INFORMING THEM OF ANTICIPATED DISCHARGE IN AM INSTRUCTED THEM TO CALL [facility] WITH ANY QUESTIONS OR CONCERNS TRANSFER FORMED FAXED TO [facility] FAX# [phone] Addendum: 11/25/19 at 1617 by MYLES LOUIS LVN CM ABLE TO COMMUNICATE WITH SON (BRANDO) CONCERNED IF CAN SEE FATHER AT FACILITY INSTRUCTED HIM TO CALL FACILITY
[2019-11-25] MEDS: HYDROcodone/Acetamin 5/325 tab ORAL PRN (16:47)
--- NOTE | 2019-11-25 18:21 | Urology Progress Note ---
Assessment/Plan Assessment/Plan: bladder cancer hx left hydronephrosis BPH hematuria pyuria POD # 2, TURBT, exchange of left ureteral stent monitor clinically doing fair urine still moderately bloody I personally hand-irrigated hernandez, small clots keep hernandez indwelling abx prophylaxis cont flomax and proscar voiding trial later f/u on path DC planning d/w Dr. Peter Subjective Allergies: Coded Allergies: No Known Allergies (Unverified , 04/09/16) Subjective all noted, looks comfortable, nurses hand irrigated hernandez Objective Last 24 Hour Vital Signs Date Time Temp Pulse Resp B/P (MAP) Pulse Ox O2 Delivery O2 Flow Rate FiO2 11/25/19 16:00 98.1 76 18 109/64 (79) 99 11/25/19 12:00 98.2 72 18 153/74 (100) 100 11/25/19 08:37 Room Air 11/25/19 08:00 97.6 76 18 102/62 (75) 100 11/25/19 04:00 98.1 67 18 122/53 (76) 98 11/25/19 00:00 98.1 64 17 110/52 (71) 98 11/24/19 21:00 Room Air 11/24/19 20:00 98.4 64 17 110/58 (75) 97 Intake and Output 11/24/19 11/25/19 19:00 07:00 Intake Total 1025 ml 1045 ml Output Total 1080 ml 1700 ml Balance -55 ml -655 ml Intake Oral 500 ml 240 ml IV Total 525 ml 805 ml Output Urine Total 1080 ml 1700 ml # Bowel Movements 2 1 Microbiology Date/Time Source Procedure Growth Status 11/23/19 13:30 Indwelling Cath Urine Culture - Preliminary NO GROWTH AFTER 24 HOURS Resulted Current Medications Medications (Trade) Dose Ordered Sig/Levi Route PRN Reason Start Time Stop Time Status Last Admin Dose Admin Acetaminophen/ Hydrocodone Bitart ([place] 5/325) 1 tab Q6H PRN ORAL Severe Pain (Pain Scale 7-10) 11/23/19 13:00 11/30/19 12:59 11/25/19 16:47 Cefazolin Sodium 1 gm/Dextrose 55 ml @ 110 mls/hr Q8H IVPB 11/23/19 15:00 11/30/19 14:59 11/25/19 15:30 Dextrose (Dextrose 50%) 25 ml Q30M PRN IV Hypoglycemia 11/23/19 13:00 02/21/20 12:59 Dextrose (Dextrose 50%) 50 ml Q30M PRN IV Hypoglycemia 11/23/19 13:00 02/21/20 12:59 Finasteride (Proscar) 5 mg DAILY ORAL 11/24/19 09:00 02/22/20 08:59 11/25/19 08:48 Insulin Aspart (NovoLOG) BEFORE MEALS AND HS SUBQ 11/23/19 16:30 02/21/20 16:29 11/25/19 16:50 Lactated Ringer's 1,000 ml @ 75 mls/hr [id number] IV 11/23/19 10:30 12/23/19 10:29 11/25/19 15:40 Ondansetron HCl (Zofran ODT) 8 mg Q8H PRN ORAL Nausea & Vomiting 11/23/19 13:15 12/23/19 13:14 Tamsulosin HCl (Flomax) 0.4 mg BEDTIME ORAL 11/23/19 21:00 12/23/19 20:59 11/24/19 20:15 Laboratory Tests 11/25/19 05:00: White Blood Count 9.5, Red Blood Count 3.08L, Hemoglobin 9.2L, Hematocrit 26.7L , Mean Corpuscular Volume 87, Mean Corpuscular Hemoglobin 30.0, Mean Corpuscular Hemoglobin Concent 34.6, Red Cell Distribution Width 12.2, Platelet Count 167, Mean Platelet Volume 5.2L, Neutrophils (%) (Auto) 73.1, Lymphocytes ( %) (Auto) 17.1L, Monocytes (%) (Auto) 7.2, Eosinophils (%) (Auto) 1.9, Basophils (%) (Auto) 0.7, Sodium Level 145, Potassium Level 3.6, Chloride Level 109H, Carbon Dioxide Level 27, Anion Gap 9, Blood Urea Nitrogen 16, Creatinine 1.0, Estimat Glomerular Filtration Rate > 60, Glucose Level 116H, Calcium Level 8.8 Height (Feet): 5 Height (Inches): 9.00 Weight (Pounds): 148 Objective abdomen soft, no CVAT hernandez indwelling, urine blood-tinged Bamshad,Macho Oliver MD Nov 25, 2019 18:21
--- NOTE | 2019-11-25 18:30 | NUR ---
NURSE NOTES: 1000cc bloody urine output emptied from hernandez bag. F/C irrigated x3 during shift.
--- NOTE | 2019-11-25 19:35 | NUR ---
HAND-OFF: Report given to Joya MARLEY. Patient is stable.
--- NOTE | 2019-11-25 19:36 | NUR ---
NURSE NOTES: Received report & pt from DONELL Dominguez. Pt lying in bed, a&ox2-3, in room air. No s/s of acute distress & no c/o pain at this time. [address] way hernandez intact & still draining clear bright red output. IV site intact with IVF running as ordered. Plan of care discussed.
[2019-11-25] MEDS: Tamsulosin 0.4mg cap ORAL SCH (20:26)
--- NOTE | 2019-11-25 22:18 | Internal Med Progress Note ---
Subjective Physician Name Jaziel Lowe Attending Physician Macho Allen MD Current Medications Medications (Trade) Dose Ordered Sig/Levi Route PRN Reason Start Time Stop Time Status Last Admin Dose Admin Acetaminophen/ Hydrocodone Bitart ([place] 5/325) 1 tab Q6H PRN ORAL Severe Pain (Pain Scale 7-10) 11/23/19 13:00 11/30/19 12:59 11/25/19 16:47 Cefazolin Sodium 1 gm/Dextrose 55 ml @ 110 mls/hr Q8H IVPB 11/23/19 15:00 11/30/19 14:59 11/25/19 15:30 Dextrose (Dextrose 50%) 25 ml Q30M PRN IV Hypoglycemia 11/23/19 13:00 02/21/20 12:59 Dextrose (Dextrose 50%) 50 ml Q30M PRN IV Hypoglycemia 11/23/19 13:00 02/21/20 12:59 Finasteride (Proscar) 5 mg DAILY ORAL 11/24/19 09:00 02/22/20 08:59 11/25/19 08:48 Insulin Aspart (NovoLOG) BEFORE MEALS AND HS SUBQ 11/23/19 16:30 02/21/20 16:29 11/25/19 20:28 Lactated Ringer's 1,000 ml @ 75 mls/hr [id number] IV 11/23/19 10:30 12/23/19 10:29 11/25/19 15:40 Ondansetron HCl (Zofran ODT) 8 mg Q8H PRN ORAL Nausea & Vomiting 11/23/19 13:15 12/23/19 13:14 Tamsulosin HCl (Flomax) 0.4 mg BEDTIME ORAL 11/23/19 21:00 12/23/19 20:59 11/25/19 20:26 Allergies: Coded Allergies: No Known Allergies (Unverified , 04/09/16) Subjective awake, alert, responsive, C/O lower abdominal pain. Objective Last Vital Signs Date Time Temp Pulse Resp B/P (MAP) Pulse Ox O2 Delivery O2 Flow Rate FiO2 11/25/19 20:00 98.0 58 16 128/62 (84) 95 11/25/19 08:37 Room Air 11/23/19 10:17 3 Laboratory Tests Test 4/17/20 05:00 White Blood Count 9.5 K/UL (4.8-10.8) Red Blood Count 3.08 M/UL (4.70-6.10) L Hemoglobin 9.2 G/DL (14.2-18.0) L Hematocrit 26.7 % (42.0-52.0) L Mean Corpuscular Volume 87 FL (80-99) Mean Corpuscular Hemoglobin 30.0 PG (27.0-31.0) Mean Corpuscular Hemoglobin Concent 34.6 G/DL (32.0-36.0) Red Cell Distribution Width 12.2 % (11.6-14.8) Platelet Count 167 K/UL (150-450) Mean Platelet Volume 5.2 FL (6.5-10.1) L Neutrophils (%) (Auto) 73.1 % (45.0-75.0) Lymphocytes (%) (Auto) 17.1 % (20.0-45.0) L Monocytes (%) (Auto) 7.2 % (1.0-10.0) Eosinophils (%) (Auto) 1.9 % (0.0-3.0) Basophils (%) (Auto) 0.7 % (0.0-2.0) Sodium Level 145 MMOL/L (136-145) Potassium Level 3.6 MMOL/L (3.5-5.1) Chloride Level 109 MMOL/L (98-107) H Carbon Dioxide Level 27 MMOL/L (21-32) Anion Gap 9 mmol/L (5-15) Blood Urea Nitrogen 16 mg/dL (7-18) Creatinine 1.0 MG/DL (0.55-1.30) Estimat Glomerular Filtration Rate > 60 mL/min (>60) Glucose Level 116 MG/DL (74-106) H Calcium Level 8.8 MG/DL (8.5-10.1) Microbiology Date/Time Source Procedure Growth Status 11/23/19 13:30 Indwelling Cath Urine Culture - Preliminary NO GROWTH AFTER 24 HOURS Resulted Intake and Output 11/24/19 11/25/19 19:00 07:00 Intake Total 1025 ml 1045 ml Output Total 1080 ml 1700 ml Balance -55 ml -655 ml Intake Oral 500 ml 240 ml IV Total 525 ml 805 ml Output Urine Total 1080 ml 1700 ml # Bowel Movements 2 1 Objective General: No acute distress, awake and alert HEENT: NCAT, sclera anicteric, PERRL, EOMI. Neck: Supple, no significant jugular venous distention, Lungs: Fair inspiratory effort, no Wheeze or Rales. Heart: Regular rate and rhythm, normal S1/S2, + SHARITA, pacemaker @ [facility]. Abdomen: soft, Lower Q tender, nondistended. Normoactive bowel sounds. : Robertson cath with pink urine. Extremities: No Cyanosis , clubbing or edema. Neuro: A&O x 3, Able to move all extremities Skin: warm, no rash. Psych: Normal mood and affect Assessment/Plan Assessment/Plan ASSESSMENT: This is an 84-year-old male. 1. Bladder cancer. 2. Left hydronephrosis. 3. Hypertension. 4. Diabetes type 2. 5. Atrioventricular conduction defect. 6. Alzheimer dementia. 7. Cerebrovascular disease. 8. Right hemiplegia. 9. Gross hematuria TREATMENT: 1. Bladder cancer/left hydronephrosis. A Urology consultation has been obtained with Dr. Macho Allen. Patient is S/P for transurethral resection of bladder tumor and ureteroscopy of the left side on 11/23/19. We will follow recommendations of Urology. 2. Diabetes type 2. NovoLog sliding scale has been instituted. 3. Atrioventricular conduction defect. Patient is status post pacemaker implantation. 4. Alzheimer dementia. 5. Cerebrovascular disease. 6. Right hemiplegia. Jaziel Lowe MD Nov 25, 2019 22:18
[2019-11-26 03:48] VITALS: BP 118/53
--- NOTE | 2019-11-26 04:06 | NUR ---
NURSE NOTES: Hand irrigated pt's hernandez with NS x 3 @ 2000, 0000, & 0400.
[2019-11-26] MEDS: LR 1000ml 1,000 ML IV SCH (05:04)
--- NOTE | 2019-11-26 06:00 | NUR ---
NURSE NOTES: 850ml bloody urine emptied from hernandez catheter.
[2019-11-26] MEDS: NovoLOG Insulin Flexpen SUBQ SCH ×3 (06:30→17:02)
[2019-11-26] MEDS: ceFAZolin sod 1 GM in D5W 55 ML IVPB SCH ×2 (06:39→14:57)
--- NOTE | 2019-11-26 07:22 | NUR ---
HAND-OFF: Report & hand written report given to AM charge nurse for DONELL Pearl. Pt in stable condition.
[2019-11-26 08:00] VITALS: BP 131/66
--- NOTE | 2019-11-26 08:54 | NUR ---
NURSE NOTES: Received report from Joya MARLEY. Patient is awake and oriented, no acute distress noted, reporting mild discomfort in urethra, no other pain reported. IV intact, patent, running IVF per order. Robertson to gravity drainage, draining blood tinged urine. Patient having breakfast and tolerating well. Updated on plan of care for the day. Side rails upx2, bed low and locked, call light within reach, bed alarm armed.
--- NOTE | 2019-11-26 10:49 | Urology Progress Note ---
Assessment/Plan Assessment/Plan: bladder cancer hx left hydronephrosis BPH hematuria pyuria POD # 3, TURBT, exchange of left ureteral stent monitor clinically doing fair urine blood-tinged, slowly clearing I personally hand-irrigated hernandez, small clots keep hernandez indwelling abx prophylaxis cont flomax and proscar voiding trial later f/u on path DC planning, back to SNF today d/w nursing staff d/w Dr. Peter Subjective Allergies: Coded Allergies: No Known Allergies (Unverified , 04/09/16) Subjective all noted, looks comfortable, nurses hand irrigated hernandez Objective Last 24 Hour Vital Signs Date Time Temp Pulse Resp B/P (MAP) Pulse Ox O2 Delivery O2 Flow Rate FiO2 11/26/19 08:00 98.2 73 18 131/66 (87) 99 11/26/19 03:48 97.7 72 18 118/53 (74) 99 11/25/19 23:48 98.1 63 17 114/59 (77) 98 11/25/19 21:00 Room Air 11/25/19 20:00 98.0 58 16 128/62 (84) 95 11/25/19 16:00 98.1 76 18 109/64 (79) 99 11/25/19 12:00 98.2 72 18 153/74 (100) 100 Intake and Output 11/25/19 11/26/19 19:00 07:00 Intake Total 1025 ml Output Total 1000 ml 850 ml Balance -1000 ml 175 ml Intake Oral 200 ml IV Total 825 ml Output Urine Total 1000 ml 850 ml # Bowel Movements 1 Microbiology Date/Time Source Procedure Growth Status 11/23/19 13:30 Indwelling Cath Urine Culture - Final NO GROWTH AFTER 48 HOURS Complete Current Medications Medications (Trade) Dose Ordered Sig/Levi Route PRN Reason Start Time Stop Time Status Last Admin Dose Admin Acetaminophen/ Hydrocodone Bitart ([place] 5/325) 1 tab Q6H PRN ORAL Severe Pain (Pain Scale 7-10) 11/23/19 13:00 11/30/19 12:59 11/25/19 16:47 Cefazolin Sodium 1 gm/Dextrose 55 ml @ 110 mls/hr Q8H IVPB 11/23/19 15:00 11/30/19 14:59 11/26/19 06:39 Dextrose (Dextrose 50%) 25 ml Q30M PRN IV Hypoglycemia 4/15/20 13:00 02/21/20 12:59 Dextrose (Dextrose 50%) 50 ml Q30M PRN IV Hypoglycemia 11/23/19 13:00 02/21/20 12:59 Finasteride (Proscar) 5 mg DAILY ORAL 11/24/19 09:00 02/22/20 08:59 11/26/19 10:04 Insulin Aspart (NovoLOG) BEFORE MEALS AND HS SUBQ 11/23/19 16:30 02/21/20 16:29 11/25/19 20:28 Lactated Ringer's 1,000 ml @ 75 mls/hr [id number] IV 11/23/19 10:30 12/23/19 10:29 11/26/19 05:04 Ondansetron HCl (Zofran ODT) 8 mg Q8H PRN ORAL Nausea & Vomiting 11/23/19 13:15 12/23/19 13:14 Tamsulosin HCl (Flomax) 0.4 mg BEDTIME ORAL 11/23/19 21:00 12/23/19 20:59 11/25/19 20:26 Height (Feet): 5 Height (Inches): 9.00 Weight (Pounds): 148 Objective abdomen soft, no CVAT hernandez indwelling, urine blood-tinged Macho Allen MD Nov 26, 2019 10:49
--- NOTE | 2019-11-26 10:50 | NUR ---
NURSE NOTES: per previous CM notes. called [facility] at [phone] (P) s/w Lillian. She accepted the patient to be transfer today. Assigned room number: 3 "B". per facility request to transfer patient after 15:00. Also per Dr. Allen if patient is going to be transfer today to transfer patient after 16:00 or so, Dr. Allen wants to see patient prior to transfer. I will f/u as needed. [facility] Address: [address] [place] [address]
--- NOTE | 2019-11-26 11:26 | Internal Med Progress Note ---
Subjective Date of Service: Nov 26, 2019 Physician Name BrittaniJean-Claude Attending Physician Macho Allen MD Current Medications Medications (Trade) Dose Ordered Sig/Levi Route PRN Reason Start Time Stop Time Status Last Admin Dose Admin Acetaminophen/ Hydrocodone Bitart ([place] 5/325) 1 tab Q6H PRN ORAL Severe Pain (Pain Scale 7-10) 11/23/19 13:00 11/30/19 12:59 11/25/19 16:47 Cefazolin Sodium 1 gm/Dextrose 55 ml @ 110 mls/hr Q8H IVPB 11/23/19 15:00 11/30/19 14:59 11/26/19 06:39 Dextrose (Dextrose 50%) 25 ml Q30M PRN IV Hypoglycemia 11/23/19 13:00 02/21/20 12:59 Dextrose (Dextrose 50%) 50 ml Q30M PRN IV Hypoglycemia 11/23/19 13:00 02/21/20 12:59 Finasteride (Proscar) 5 mg DAILY ORAL 11/24/19 09:00 02/22/20 08:59 11/26/19 10:04 Insulin Aspart (NovoLOG) BEFORE MEALS AND HS SUBQ 11/23/19 16:30 02/21/20 16:29 11/25/19 20:28 Lactated Ringer's 1,000 ml @ 75 mls/hr [id number] IV 11/23/19 10:30 12/23/19 10:29 11/26/19 05:04 Ondansetron HCl (Zofran ODT) 8 mg Q8H PRN ORAL Nausea & Vomiting 11/23/19 13:15 12/23/19 13:14 Tamsulosin HCl (Flomax) 0.4 mg BEDTIME ORAL 11/23/19 21:00 12/23/19 20:59 11/25/19 20:26 Allergies: Coded Allergies: No Known Allergies (Unverified , 04/09/16) ROS Limited/Unobtainable: No Constitutional: Reports: no symptoms HEENT: Reports: no symptoms Cardiovascular: Reports: no symptoms Respiratory: Reports: no symptoms Gastrointestinal/Abdominal: Reports: no symptoms Genitourinary: Reports: no symptoms 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: Reports: no symptoms Subjective 84 YO M with history of bladder cancer admitted for bladder surgery. Now gross hematuria. Cover for Int Med-Dr Lowe. S/P transurethral resection of bladder tumor and stent replacement 11/23/19. Objective Last Vital Signs Date Time Temp Pulse Resp B/P (MAP) Pulse Ox O2 Delivery O2 Flow Rate FiO2 11/26/19 08:00 98.2 73 18 131/66 (87) 99 11/25/19 21:00 Room Air 11/23/19 10:17 3 Microbiology Date/Time Source Procedure Growth Status 11/23/19 13:30 Indwelling Cath Urine Culture - Final NO GROWTH AFTER 48 HOURS Complete Intake and Output 11/25/19 11/26/19 19:00 07:00 Intake Total 1025 ml Output Total 1000 ml 850 ml Balance -1000 ml 175 ml Intake Oral 200 ml IV Total 825 ml Output Urine Total 1000 ml 850 ml # Bowel Movements 1 Objective PHYSICAL EXAMINATION: GENERAL: Patient is well-developed, well-nourished male, in no apparent distress. HEENT: Eyes, pupils are equal and responsive to light and accommodation. Extraocular movements are intact. NECK: Supple without lymphadenopathy. CHEST: Lungs are clear to auscultation bilaterally without wheezes or rales. CARDIOVASCULAR: Regular rhythm and rate. S1, S2 are normal without murmurs, rubs, or gallops. ABDOMEN: Soft, nontender, nondistended. Positive bowel sounds. No evidence of hepatosplenomegaly. Currently, no rebound or guarding noted. NEUROLOGIC: Patient does have a right upper extremity weakness. Motor strength is 3/5 on the right and 5/5 on the left. Deep tendon reflexes are 2+ plantar. Assessment/Plan Assessment/Plan ASSESSMENT: This is an 84-year-old male. 1. Bladder cancer. 2. Left hydronephrosis. 3. Hypertension. 4. Diabetes type 2. 5. Atrioventricular conduction defect. 6. Alzheimer dementia. 7. Cerebrovascular disease. 8. Right hemiplegia. 9. Gross hematuria TREATMENT: 1. Bladder cancer/left hydronephrosis. A Urology consultation has been obtained with Dr. Macho Allen. Patient is S/P for transurethral resection of bladder tumor and ureteroscopy of the left side on 11/23/19. We will follow recommendations of Urology. 2. Diabetes type 2. NovoLog sliding scale has been instituted. 3. Atrioventricular conduction defect. Patient is status post pacemaker implantation. 4. Alzheimer dementia. 5. Cerebrovascular disease. 6. Right hemiplegia. 7. ABX=cefazolin. Await urine culture results 8. Discharge to [facility] when bed available. Jean-Claude Peter MD Nov 26, 2019 11:26
[2019-11-26] MEDS ORDERED: NOVOLOG100 UNITS1 SUBQ (11:30)
[2019-11-26 12:00] VITALS: BP 152/70
[2019-11-26] MEDS ORDERED: NS Irrig 1000ml ONE (14:18)
[2019-11-26] MEDS ORDERED: LR 1000ml ONE (14:18)
--- NOTE | 2019-11-26 15:14 | NUR ---
NURSE NOTES: Called Jamir Boyd (patient's son) and notified him that patient will be transferred back to [facility] today. Patient's son is in agreement with plan of care.
--- NOTE | 2019-11-26 15:52 | NUR ---
NURSE NOTES: Dr. Allen came and saw patient. Per MD, d/c with hernandez and inform facility not to d/c hernandez catheter and hand irrigate as needed through drainage (middle) port on 3 way hernandez.
[2019-11-26 16:00] VITALS: BP 143/75
--- NOTE | 2019-11-26 16:58 | NUR ---
NURSE NOTES: Called and gave report to Maria L MARLEY at [facility].
--- NOTE | 2019-11-26 17:51 | NUR ---
NURSE NOTES: Patient discharged without distress via [facility]. IV removed intact, ID band removed, belongings sent with patient. Patient transferred safely to EMS [facility] and escorted off unit.
--- NOTE | 2019-11-28 09:54 | Discharge Summary ---
Discharge Summary Discharge Summary _ DATE OF ADMISSION: 11/23/2019 DATE OF DISCHARGE: 11/26/2019 DISCHARGED BY: Dr. Lowe REASON FOR ADMISSION: 84 years old male with past medical history of bladder cancer, left hydronephrosis, hypertension, diabetes mellitus type 2, arterio-ventricular conduction defect, s/p pacemaker, history of cerebrovascular disease, status post CVA with right hemiplegia, Alzheimer's dementia, admitted for transurethral resection of bladder tumor. CONSULTANTS: urologist Dr. Allen HOSPITAL COURSE: Patient undergone cystoscopy, urethral calibration, transurethral resection and fulguration of extensive bladder tumor, left ureteroscopy with dilation , removal and exchange of left ureteral stent, and retrograde pyelogram on . Patient tolerated procedure well. Postoperatively Robertson catheter was kept. Pain management was addressed as needed. Hand irrigation provided as needed for removal of small clots. Flomax and Proscar continued. Patient was on antibiotic prophylactic. At the time of this dictation pathology report still pending. Urine was slowly clearing. Voiding trial was planned for later. SNF medication continued . Initial leukocytosis resolved. Urine culture was negative. DVT prophylaxis provided. Blood sugar was managed with sliding scale of insulin. Hemoglobin and hematocrit were closely monitored and remained stable, at the baseline ; prior to discharge hemoglobin 9.2 , hematocrit 26.7. Patient clinically stabilized and was ready for transfer back to longterm facility for continuation of care FINAL DIAGNOSES: Bladder cancer Left hydronephrosis Status post cystoscopy, urethral calibration, transurethral resection and fulguration of extensive bladder tumor, left ureteroscopy with dilation , removal and exchange of left ureteral stent, retrograde pyelogram 11/22 Diabetes mellitus type 2 Cerebrovascular disease with history of CVA and right hemiplegia Anterior ventricular conduction defect Status post pacemaker DISCHARGE MEDICATIONS: See Medication Reconciliation list. DISCHARGE INSTRUCTIONS: Patient was discharged to the longterm facility. Follow up with medical doctor at the facility. Patient to follow-up with surgeon as outpatient. Voiding trial will be initiated later as per urologist recommendation. I have been assigned to dictate discharge summary for this account. I was not involved in the patient's management. Ellen Mei NP Nov 28, 2019 09:54
== END 2019-11-26 18:00 | DRG 657 ==
LOC: SUR 05:23 → 3E 10:15 → OBSVTOIN 10:15 → INTOOBSV 11-24 14:44
PROC: 0T5B8ZZ Destruction of Bladder, Via Natural or Artificial Opening Endoscopic (ICD-10-PCS; principal; 2019-11-23 07:00)
PROC: 0TBB8ZZ Excision of Bladder, Via Natural or Artificial Opening Endoscopic (ICD-10-PCS; principal; 2019-11-23 07:00)
PROC: 0T778DZ Dilation of Left Ureter with Intraluminal Device, Via Natural or Artificial Opening Endoscopic (ICD-10-PCS; principal; 2019-11-23 07:00)
PROC: 0TP98DZ Removal of Intraluminal Device from Ureter, Via Natural or Artificial Opening Endoscopic (ICD-10-PCS; principal; 2019-11-23 07:00)
DX: C67.9 Malignant neoplasm of bladder, unspecified (principal); I69.351 Hemiplegia and hemiparesis following cerebral infarction affecting right dominant side; N13.39 Other hydronephrosis; R31.0 Gross hematuria; E11.9 Type 2 diabetes mellitus without complications; Z95.0 Presence of cardiac pacemaker; I10 Essential (primary) hypertension; G30.9 Alzheimer's disease, unspecified; F02.80 Dementia in other diseases classified elsewhere, unspecified severity, without behavioral disturbance, psychotic disturbance, mood disturbance, and anxiety
CPT/HCPCS: 36415; 74420; 76000; 80048; 80053; 81003; 83036; 85007; 85025; 85610; 85730; 87086; 94003; 94150; 96360; 96361; 96365; 96366; C8957; J1815; J2250; J2405; J2710

== ENCOUNTER 2020-03-10 11:58 | Inpatient (IN) | payer MEDICARE, MEDICAID ==
[~2020-03-10] VITALS: Ht 170.2 cm; Wt 83.9 kg
[~2020-03-10 11:58] MED LIST changes: +NORCO 5-325 TA1 EAC1 ORAL; +NOVOLOG100 UNITS1 SUBQ; +UTI-STAT L3875 MG/31 PO
--- NOTE | 2020-03-10 11:59 | NUR ---
ED Nurse Note: Pt arrived RA 61 due right sided pressure like CPx 40 min. pt was given 3 nitro at facility per ems. 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 pt is aox2.
[2020-03-10 12:00] VITALS: BP 101/53
--- NOTE | 2020-03-10 12:00 | NUR ---
ED Nurse Note: Pt denies pain at this time.
--- NOTE | 2020-03-10 12:10 | NUR ---
ED Nurse Note: IV line established per RA 61; ptatent and intact. blood drawn and sent to lab. pt given two blankets and dimmed light for comfort
--- NOTE | 2020-03-10 12:21 | NUR ---
ED Nurse Note: pt began saturating at 86% room air. placed pt on 2 L nasal cannula satuatin at 94-100%
--- NOTE | 2020-03-10 12:21 | NUR ---
ED Nurse Note: Pt has no pain at this time. will hold morphine order.
[2020-03-10] MEDS ORDERED: Morphine Sulfate 2mg/ml Inj(IV/IM USE ONLY) IVP ONE (12:30)
--- NOTE | 2020-03-10 12:32 | NUR ---
ED Nurse Note: xray at bedside; completed
[2020-03-10 12:59] LABS: ANION GAP 10 mmol/L (5-15); BLOOD UREA NITROGEN 29 mg/dL (7-18); CALCIUM 7.6 MG/DL (8.5-10.1); CARBON DIOXIDE 21 MMOL/L (21-32); CHLORIDE 105 MMOL/L (98-107); CREATININE 1.3 MG/DL (0.55-1.30); POTASSIUM 3.9 MMOL/L (3.5-5.1); SODIUM 136 MMOL/L (136-145)
[2020-03-10 13:01] LABS: HEMATOCRIT 22.7 % (42.0-52.0); MEAN CORPUSCULAR VOLUME 78 FL (80-99); PLATELET COUNT 323 K/UL (150-450); RED BLOOD COUNT 2.93 M/UL (4.70-6.10); RED CELL DISTRIBUTION WIDTH 14.2 % (11.6-14.8)
[2020-03-10 13:03] LABS: HEMOGLOBIN 6.8 G/DL (14.2-18.0); WHITE BLOOD COUNT 22.8 K/UL (4.8-10.8)
[2020-03-10 13:10] LABS: ALANINE AMINOTRANSFERASE 18 U/L (12-78); ALBUMIN 1.9 G/DL (3.4-5.0); ALBUMIN/GLOBULIN RATIO 0.4 (1.0-2.7); ALKALINE PHOSPHATASE 71 U/L (46-116); ASPARTATE AMINO TRANSFERASE 41 U/L (15-37); BILIRUBIN,TOTAL 0.2 MG/DL (0.2-1.0)
[2020-03-10 13:31] LABS: INR 1.1 (0.9-1.1)
--- NOTE | 2020-03-10 13:47 | Emergency Room Report ---
History of Present Illness General Chief Complaint: Chest Pain Source: Patient, Medical Record Present Illness HPI 84-year-old male presents the ED complaining of chest pain. Brought in by EMS from group home facility. Started about 40 minutes ago. Right-sided, dull , 8 out of 10, nonradiating. Was given nitro with chest pain improved. Denies shortness of breath. Denies fevers or chills. Denies cough. No other aggravating relieving factors. 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 COVID-19 Screening: Negative COVID-19 COVID-19 Testing Source: unknown Patient History Past Medical History: HTN, dementia Past Surgical History: pacemaker Social History: Denies: smoking, alcohol use, drug use Immunizations: UTD Reviewed Nursing Documentation: PMH: Agreed; PSxH: Agreed Nursing Documentation-PMH Past Medical History: No History, Except For Hx Cardiac Problems: Yes Hx Hypertension: Yes Hx Pacemaker: Yes - left upper chest Hx Diabetes: Yes Hx Cancer: Yes Hx Gastrointestinal Problems: No Hx Neurological Problems: Yes Hx Dementia: Yes Hx Parkinson's Disease: Yes Hx Seizures: Yes Hx Epilepsy: Yes Review of Systems All Other Systems: negative except mentioned in HPI Physical Exam Vital Signs Date Time Temp Pulse Resp B/P (MAP) Pulse Ox O2 Delivery O2 Flow Rate FiO2 03/10/20 11:59 98.1 88 16 99/63 (75) 98 Room Air Sp02 EP Interpretation: reviewed, normal General Appearance: no apparent distress, alert, GCS 15, non-toxic Head: normocephalic, atraumatic Eyes: bilateral eye normal inspection, bilateral eye PERRL ENT: hearing grossly normal, normal pharynx, no angioedema, normal voice Neck: full range of motion, supple/symm/no masses Respiratory: chest non-tender, lungs clear, normal breath sounds, speaking full sentences Cardiovascular #1: regular rate, rhythm, no edema Cardiovascular #2: 2+ carotid (R), 2+ carotid (L), 2+ radial (R), 2+ radial (L) , 2+ dorsalis pedis (R), 2+ dorsalis pedis (L) Gastrointestinal: normal bowel sounds, non tender, soft, non-distended, no guarding, no rebound Rectal: deferred Genitourinary: normal inspection, no CVA tenderness Musculoskeletal: back normal, normal range of motion, gait/station normal, non- tender Neurologic: alert, motor strength/tone normal, oriented x3, sensory intact, responsive, speech normal Psychiatric: judgement/insight normal, memory normal, mood/affect normal, no suicidal/homicidal ideation Reflexes: 3+ bicep (R), 3+ bicep (L), 3+ tricep (R), 3+ tricep (L), 3+ knee (R) , 3+ knee (L) Skin: other - see nursing notes Lymphatic: no adenopathy Procedures Critical Care Time Critical Care Time i. I feel this is a highly complex case requiring extensive working including EKG/Rhythm strip, Xray/CT/US, Blood/urine lab work, repeat exams while in ED, and administration of strong opiates/narcotics for pain control, admission to hospital or close patient follow up. Total time: 60 min bedside evaluation and treatment excludes procedures (EKG). Reason for critical care: NSTEMI, elevated troponin, sepsis, UTI, anemia Possible complications: hypotension, hypertension, UT, shock, arrhythmias, metabolic acidosis, end organ damage, respiratory failure. Interventions: Labs, EKG, chest x-ray, morphine, IV fluids, broad-spectrum antibiotics, blood transfusion, discussion with son, discussion with cardiology Course: Patient presenting with chest pain. Given nitro in field. EKG shows ST depressions in anterior leads. Troponin 5. Significant leukocytosis. UTI. Hemoglobin 6.8. Discussed with son who agreed to transfusion. Heparin started. Broad-spectrum antibiotics given. Discussed with cardiology. Consultations: nursing staff, EMS, family Performed by: Dr Jaffe Tolerated well condition = critical j. because of unstable vital signs this patient had a condition that could potentially threaten life or limb. I feel this is a critical patient who required my full attention while patient was considered critical. Total Critical Care Time excluding procedures was greater than 60 minutes Medical Decision Making Diagnostic Impression: Primary Impression: NSTEMI (non-ST elevated myocardial infarction) Additional Impressions: Anemia Qualified Codes: D64.9 - Anemia, unspecified Sepsis Qualified Codes: A41.9 - Sepsis, unspecified organism UTI (urinary tract infection) Qualified Codes: N39.0 - Urinary tract infection, site not specified ER Course Hospital Course 84 yo M presents with chest pain from SNF Differential diagnoses include: UT/unstable angina, contusion, muscle strain, PTX, rib fracture Clinical course Patient placed on stretcher. on property assessment monitor. After initial history and physical I ordered labs, EKG, chest x-ray, morphine labs reviewed- marked leukocytosis, hb 6.8, trop > 5, BNP elevated, lactic > 2, UA + bacteria EKG - NSR, st depressions in anterior leads Chest x-ray- no acute process, pacemaker noted Given broad-spectrum antibiotics. Given IV fluids but not bolused at 30 cc/kg as patient has significant CHF. Heparinized. Discussed with son who agreed to blood transfusion. discussed with cardiology. Case discussed with Dr. Lowe and he agreed to accept the patient to his service for further care and support I. I feel this is a highly complex case requiring extensive working including EKG/Rhythm strip, Xray/CT/US, Blood/urine lab work, repeat exams while in ED, and administration of strong opiates/narcotics for pain control, admission to hospital or close patient follow up. Diagnosis - NSTEMI, anemia, sepsis, UTI admitted to SDU in critical condition Laboratory Tests Test 03/10/20 12:20 03/10/20 13:10 03/10/20 13:20 03/10/20 14:23 White Blood Count 22.8 K/UL (4.8-10.8) *H Red Blood Count 2.93 M/UL (4.70-6.10) L Hemoglobin 6.8 G/DL (14.2-18.0) *L Hematocrit 22.7 % (42.0-52.0) L Mean Corpuscular Volume 78 FL (80-99) L Mean Corpuscular Hemoglobin 23.4 PG (27.0-31.0) L Mean Corpuscular Hemoglobin Concent 30.2 G/DL (32.0-36.0) L Red Cell Distribution Width 14.2 % (11.6-14.8) Platelet Count 323 K/UL (150-450) Mean Platelet Volume 5.6 FL (6.5-10.1) L Neutrophils (%) (Auto) % (45.0-75.0) Lymphocytes (%) (Auto) % (20.0-45.0) Monocytes (%) (Auto) % (1.0-10.0) Eosinophils (%) (Auto) % (0.0-3.0) Basophils (%) (Auto) % (0.0-2.0) Differential Total Cells Counted 100 Neutrophils % (Manual) 92 % (45-75) H Lymphocytes % (Manual) 2 % (20-45) L Monocytes % (Manual) 4 % (1-10) Eosinophils % (Manual) 0 % (0-3) Basophils % (Manual) 2 % (0-2) Band Neutrophils 0 % (0-8) Platelet Estimate Adequate Platelet Morphology Normal Hypochromasia 3+ Anisocytosis 1+ Microcytosis 1+ Reticulocyte Count 0.6 % (0.5-2.0) Sodium Level 136 MMOL/L (136-145) Potassium Level 3.9 MMOL/L (3.5-5.1) Chloride Level 105 MMOL/L (98-107) Carbon Dioxide Level 21 MMOL/L (21-32) Anion Gap 10 mmol/L (5-15) Blood Urea Nitrogen 29 mg/dL (7-18) H Creatinine 1.3 MG/DL (0.55-1.30) Estimat Glomerular Filtration Rate > 60 mL/min (>60) Glucose Level 269 MG/DL (74-106) H Uric Acid 5.8 MG/DL (2.6-7.2) Calcium Level 7.6 MG/DL (8.5-10.1) L Phosphorus Level 2.7 MG/DL (2.5-4.9) Magnesium Level 1.6 MG/DL (1.8-2.4) L Iron Level 10 ug/dL (50-175) L Total Iron Binding Capacity 259 ug/dL (250-450) Percent Iron Saturation 4 % (15-50) L Unsaturated Iron Binding 249 ug/dL (112-346) Total Bilirubin 0.2 MG/DL (0.2-1.0) Aspartate Amino Transf (AST/SGOT) 41 U/L (15-37) H Alanine Aminotransferase (ALT/SGPT) 18 U/L (12-78) Alkaline Phosphatase 71 U/L (46-116) Lactate Dehydrogenase 190 U/L (81-234) Total Creatine Kinase 172 U/L (26-308) Troponin I 5.510 ng/mL (0.000-0.056) Pro-B-Type Natriuretic Peptide 4397 pg/mL (0-125) H Total Protein 6.4 G/DL (6.4-8.2) Albumin 1.9 G/DL (3.4-5.0) L Globulin 4.5 g/dL Albumin/Globulin Ratio 0.4 (1.0-2.7) L Carcinoembryonic Antigen Pending Vitamin B12 Level 786 PG/ML (193-986) Folate 7.1 NG/ML (8.6-58.9) L Free Thyroxine 1.78 NG/DL (0.76-1.46) H Prothrombin Time 12.3 SEC (9.30-11.50) H Prothromb Time International Ratio 1.1 (0.9-1.1) Activated Partial Thromboplast Time 27 SEC (23-33) Lactic Acid Level 2.30 mmol/L (0.4-2.0) H 1.50 mmol/L (0.66-2.22) Urine Color Yellow Urine Appearance Very cloudy Urine pH 6 (4.5-8.0) Urine Specific [place] 1.015 (1.005-1.035) Urine Protein 3+ (NEGATIVE) H Urine Glucose (UA) Negative (NEGATIVE) Urine Ketones 1+ (NEGATIVE) H Urine Blood 5+ (NEGATIVE) H Urine Nitrite Positive (NEGATIVE) H Urine Bilirubin Negative (NEGATIVE) Urine Urobilinogen Normal MG/DL (0.0-1.0) Urine Leukocyte Esterase 3+ (NEGATIVE) H Urine RBC Tntc /HPF (0 - 0) H Urine WBC Tntc /HPF (0 - 0) H Urine Squamous Epithelial Cells Occasional /LPF Urine Amorphous Sediment Moderate /LPF (NONE) H Urine Bacteria Many /HPF (NONE) H Test 03/10/20 17:29 03/10/20 18:30 03/10/20 20:16 03/10/20 22:56 POC Whole Blood Glucose 192 MG/DL (74-106) H 133 MG/DL (74-106) H Urine Color Red Urine Appearance Cloudy Urine pH 7 (4.5-8.0) Urine Specific [place] 1.010 (1.005-1.035) Urine Protein 4+ (NEGATIVE) H Urine Glucose (UA) Negative (NEGATIVE) Urine Ketones Negative (NEGATIVE) Urine Blood 5+ (NEGATIVE) H Urine Nitrite Negative (NEGATIVE) Urine Bilirubin Negative (NEGATIVE) Urine Urobilinogen Normal MG/DL (0.0-1.0) Urine Leukocyte Esterase 3+ (NEGATIVE) H Urine RBC Tntc /HPF (0 - 0) H Urine WBC 20-30 /HPF (0 - 0) H Urine Squamous Epithelial Cells Few /LPF (NONE/OCC) Urine Bacteria Few /HPF (NONE) Urine Eosinophils None seen (NONE SEEN) Urine Osmolality 398 mOsm/kg (429-449) L Urine Random Sodium 84 mmol/L (20-110) Troponin I 9.889 ng/mL (0.000-0.056) Test 03/11/20 01:00 03/11/20 02:41 03/11/20 05:53 Stool Occult Blood Pending White Blood Count 28.4 K/UL (4.8-10.8) *H Red Blood Count 3.26 M/UL (4.70-6.10) L Hemoglobin 8.3 G/DL (14.2-18.0) L Hematocrit 26.0 % (42.0-52.0) L Mean Corpuscular Volume 80 FL (80-99) Mean Corpuscular Hemoglobin 25.3 PG (27.0-31.0) L Mean Corpuscular Hemoglobin Concent 31.8 G/DL (32.0-36.0) L Red Cell Distribution Width 15.3 % (11.6-14.8) H Platelet Count 267 K/UL (150-450) Mean Platelet Volume 5.3 FL (6.5-10.1) L Neutrophils (%) (Auto) % (45.0-75.0) Lymphocytes (%) (Auto) % (20.0-45.0) Monocytes (%) (Auto) % (1.0-10.0) Eosinophils (%) (Auto) % (0.0-3.0) Basophils (%) (Auto) % (0.0-2.0) Neutrophils % (Manual) Pending Lymphocytes % (Manual) Pending Platelet Estimate Pending Platelet Morphology Pending Erythrocyte Sedimentation Rate Pending Sodium Level Pending Potassium Level Pending Chloride Level Pending Carbon Dioxide Level Pending Blood Urea Nitrogen Pending Creatinine Pending Estimat Glomerular Filtration Rate Pending Glucose Level Pending Calcium Level Pending Phosphorus Level 2.9 MG/DL (2.5-4.9) Magnesium Level 1.7 MG/DL (1.8-2.4) L Total Bilirubin Pending Aspartate Amino Transf (AST/SGOT) Pending Alanine Aminotransferase (ALT/SGPT) Pending Alkaline Phosphatase Pending Troponin I Pending C-Reactive Protein, Quantitative 11.4 mg/dL (0.00-0.90) H Total Protein Pending Albumin Pending Globulin Pending POC Whole Blood Glucose 118 MG/DL (74-106) H EKG Diagnostic Results Rate: normal Rhythm: NSR ST Segments: other - ST Depressions in anterior leads ASA given to the pt in ED: No - given by EMS Rhythm Strip Diag. Results EP Interpretation: yes Rhythm: NSR, no PVC's, no ectopy Chest X-Ray Diagnostic Results Chest X-Ray Diagnostic Results : Chest X-Ray Ordered: Yes # of Views/Limited/Complete: 1 View Indication: Chest Pain EP Interpretation: Yes Interpretation: no consolidation, no effusion, no pneumothorax, no acute cardiopulmonary disease Impression: No acute disease Electronically Signed by: Electronically signed by Devon Jaffe MD Last Vital Signs Date Time Temp Pulse Resp B/P (MAP) Pulse Ox O2 Delivery O2 Flow Rate FiO2 03/10/20 12:00 107 17 03/10/20 12:00 97.4 101/53 99 Room Air Status: improved Disposition: ADMITTED INPATIENT Condition: Critical Referrals: Jaziel Lowe MD (PCP) Devon Jaffe MD Mar 10, 2020 13:47
[2020-03-10 13:53] VITALS: BP 104/65
[2020-03-10] MEDS ORDERED: Heparin 25,000u/D5W 500ml 500 ML IV SCH (14:00)
[2020-03-10] MEDS ORDERED: Heparin 5000 units/ml inj IV ONE (14:00)
--- NOTE | 2020-03-10 14:22 | Diagnostic Imaging Report ---
EXAM: XR Chest, 1 View CLINICAL HISTORY: Chest pain TECHNIQUE: Frontal view of the chest. COMPARISON: Chest x-rays dated 03/03/19. FINDINGS: Lungs: Low lung volumes, likely related to shallow inspiration. Pleural space: Unremarkable. The costophrenic angles are sharp. No visible pneumothorax. Heart: Unremarkable. No cardiomegaly. Mediastinum: Unremarkable. Bones/joints: Degenerative changes throughout the visualized spine and shoulder joints. Vasculature: Atherosclerotic calcifications within the aortic arch. Tubes, lines and devices: Telemetry leads overlie the thorax. Cardiac pacer in the left chest wall with the lead tips in the right atrium and right ventricle regions. IMPRESSION: Low lung volumes, likely related to shallow inspiration. No focal consolidation.
[2020-03-10 14:24] LABS: BILIRUBIN, URINE NEGATIVE (NEGATIVE); COLOR,URINE YELLOW; GLUCOSE, URINE (UA) NEGATIVE (NEGATIVE); KETONES,URINE 1+ (NEGATIVE); LEUKOCYTE ESTERASE ,URINE 3+ (NEGATIVE); NITRITE,URINE POSITIVE (NEGATIVE); PH,URINE 6 (4.5-8.0); PROTEIN,URINE 3+ (NEGATIVE); UROBILINOGEN,URINE NORMAL MG/DL (0.0-1.0)
--- NOTE | 2020-03-10 14:24 | NUR ---
ED Nurse Note: PT is aox2-3, an unable to sign for himself. called next kin son; zoraida delgado for blood transfusion consent. left voicemail to son, informed ERMD. per ERMD hold transfusion for now and wait for orders
[2020-03-10 14:25] LABS: APPEARANCE,URINE VERY CLOUDY
--- NOTE | 2020-03-10 14:26 | NUR ---
ED Nurse Note: ERMD contacted primary, Dr. Hinkle, per Dr. Hinkle withold blood transfusion. Will wait for family member to call back. pt vss, pt bp 115/55 HR 107. pt does not appear in acutes distress.
[2020-03-10] MEDS ORDERED: Albuterol/Ipratropium 3ml neb HHN PRN (14:30)
[2020-03-10] MEDS ORDERED: Nitroglycerin Subl 0.4mg tab SL PRN (14:30)
[2020-03-10] MEDS ORDERED: Miralax 17gm pkt ORAL PRN (14:30)
--- NOTE | 2020-03-10 14:36 | NUR ---
ED Nurse Note: Spoke with Son; Kyra Boyd, and received telephone cosent for blood transfusion. ERMD also spoke with son and was given verbal telephone conset to provide blood transfusion to pt. Dr. Hinkle informed and was ordered to proceed with blood transfusion.
--- NOTE | 2020-03-10 14:39 | Consultation ---
History of Present Illness General Date patient seen: Mar 10, 2020 Chief Complaint: Chest Pain Present Illness HPI 84 year old male with hx of DM, Dementia, bladder cancer, hydronephrosis, pacemaker, shelter resident presented to ER with CC of right sided chest pain. Pt received nitroglycerin in the shelter without any improvement. Initial evaluation in ER revealed that the troponin is 5 and pt was severely anemic. He is being admitted to [facility] for further management. Allergies: Coded Allergies: No Known Allergies (Unverified , 04/09/16) Medication History Scheduled Cran/Vitc/Mannose/Inulin/Brom (Uti-Stat Liquid), 3,875 MG PO DAILY, (Reported) Finasteride (Finasteride), 5 MG ORAL DAILY Insulin Aspart (Novolog Flexpen), 0 UNITS SUBQ BEFORE MEALS AND HS Nateglinide (Starlix), 120 MG ORAL DAILY, (Reported) Tamsulosin HCl (Flomax), 0.4 MG ORAL BEDTIME Scheduled PRN Hydrocodone Bit/Acetaminophen 5-325* ([place] 5-325 Tablet*), 1 TAB ORAL Q6H PRN for FOR PAIN, (Reported) Ondansetron Odt* (Zofran Odt*), 8 MG ORAL Q8HR PRN for Nausea & Vomiting, ( Reported) Patient History Healthcare decision maker Resuscitation status Advanced Directive on File Past Medical/Surgical History Past Medical/Surgical History: (1) Diabetes mellitus (2) HTN (hypertension) (3) Alzheimer's dementia (4) Atrial arrhythmia (5) Chronic cerebrovascular accident (CVA) (6) Hyperthyroidism (7) Hydronephrosis (8) Bladder cancer (9) History of urethral stent Review of Systems All Other Systems: negative except mentioned in HPI Physical Exam General Appearance: WD/WN, no apparent distress Lines, tubes and drains: peripheral HEENT: normocephalic, atraumatic Neck: non-tender, normal alignment Respiratory/Chest: chest wall non-tender, lungs clear, normal breath sounds Breasts: no masses Cardiovascular/Chest: normal peripheral pulses, normal rate Abdomen: normal bowel sounds, non tender, soft Genitourinary/Rectal: normal genital exam, normal rectal exam Extremities: normal range of motion, non-tender Skin Exam: normal pigmentation Neurologic: chocolate temperer II-XII grossly normal Last 24 Hour Vital Signs Date Time Temp Pulse Resp B/P (MAP) Pulse Ox O2 Delivery O2 Flow Rate FiO2 03/10/20 13:53 97.4 89 17 104/65 100 Room Air 03/10/20 12:00 107 17 03/10/20 12:00 97.4 107 17 101/53 99 Room Air 03/10/20 11:59 98.1 88 16 99/63 (75) 98 Room Air Laboratory Tests Test 03/10/20 12:20 03/10/20 13:10 03/10/20 13:20 03/10/20 14:23 White Blood Count 22.8 K/UL (4.8-10.8) *H Red Blood Count 2.93 M/UL (4.70-6.10) L Hemoglobin 6.8 G/DL (14.2-18.0) *L Hematocrit 22.7 % (42.0-52.0) L Mean Corpuscular Volume 78 FL (80-99) L Mean Corpuscular Hemoglobin 23.4 PG (27.0-31.0) L Mean Corpuscular Hemoglobin Concent 30.2 G/DL (32.0-36.0) L Red Cell Distribution Width 14.2 % (11.6-14.8) Platelet Count 323 K/UL (150-450) Mean Platelet Volume 5.6 FL (6.5-10.1) L Neutrophils (%) (Auto) % (45.0-75.0) Lymphocytes (%) (Auto) % (20.0-45.0) Monocytes (%) (Auto) % (1.0-10.0) Eosinophils (%) (Auto) % (0.0-3.0) Basophils (%) (Auto) % (0.0-2.0) Differential Total Cells Counted 100 Neutrophils % (Manual) 92 % (45-75) H Lymphocytes % (Manual) 2 % (20-45) L Monocytes % (Manual) 4 % (1-10) Eosinophils % (Manual) 0 % (0-3) Basophils % (Manual) 2 % (0-2) Band Neutrophils 0 % (0-8) Platelet Estimate Adequate Platelet Morphology Normal Hypochromasia 3+ Anisocytosis 1+ Microcytosis 1+ Sodium Level 136 MMOL/L (136-145) Potassium Level 3.9 MMOL/L (3.5-5.1) Chloride Level 105 MMOL/L (98-107) Carbon Dioxide Level 21 MMOL/L (21-32) Anion Gap 10 mmol/L (5-15) Blood Urea Nitrogen 29 mg/dL (7-18) H Creatinine 1.3 MG/DL (0.55-1.30) Estimat Glomerular Filtration Rate > 60 mL/min (>60) Glucose Level 269 MG/DL (74-106) H Calcium Level 7.6 MG/DL (8.5-10.1) L Total Bilirubin 0.2 MG/DL (0.2-1.0) Aspartate Amino Transf (AST/SGOT) 41 U/L (15-37) H Alanine Aminotransferase (ALT/SGPT) 18 U/L (12-78) Alkaline Phosphatase 71 U/L (46-116) Troponin I 5.510 ng/mL (0.000-0.056) Pro-B-Type Natriuretic Peptide 4397 pg/mL (0-125) H Total Protein 6.4 G/DL (6.4-8.2) Albumin 1.9 G/DL (3.4-5.0) L Globulin 4.5 g/dL Albumin/Globulin Ratio 0.4 (1.0-2.7) L Prothrombin Time 12.3 SEC (9.30-11.50) H Prothromb Time International Ratio 1.1 (0.9-1.1) Activated Partial Thromboplast Time 27 SEC (23-33) Lactic Acid Level 2.30 mmol/L (0.4-2.0) H Pending Urine Color Yellow Urine Appearance Very cloudy Urine pH 6 (4.5-8.0) Urine Specific [place] 1.015 (1.005-1.035) Urine Protein 3+ (NEGATIVE) H Urine Glucose (UA) Negative (NEGATIVE) Urine Ketones 1+ (NEGATIVE) H Urine Blood 5+ (NEGATIVE) H Urine Nitrite Positive (NEGATIVE) H Urine Bilirubin Negative (NEGATIVE) Urine Urobilinogen Normal MG/DL (0.0-1.0) Urine Leukocyte Esterase 3+ (NEGATIVE) H Urine RBC Tntc /HPF (0 - 0) H Urine WBC Tntc /HPF (0 - 0) H Urine Squamous Epithelial Cells Occasional /LPF Urine Amorphous Sediment Moderate /LPF (NONE) H Urine Bacteria Many /HPF (NONE) H Height (Feet): 5 Height (Inches): 9.00 Weight (Pounds): 190 Medications Current Medications Medications (Trade) Dose Ordered Sig/Levi Route PRN Reason Start Time Stop Time Status Last Admin Dose Admin Acetaminophen (Tylenol) 650 mg Q4H PRN ORAL fever 03/10/20 14:30 04/09/20 14:29 UNV Albuterol/ Ipratropium (Albuterol/ Ipratropium) 3 ml EVERY 4 HOURS PRN HHN Shortness of Breath 03/10/20 14:30 03/15/20 14:29 UNV Cefepime HCl 2 gm/ Dextrose 110 ml @ 220 mls/hr EVERY 12 HOURS IV 03/10/20 21:00 03/17/20 20:59 UNV Dextrose (Dextrose 50%) 25 ml Q30MIN PRN IV Hypoglycemia 03/10/20 14:30 06/08/20 14:29 UNV Dextrose (Dextrose 50%) 50 ml Q30M PRN IV Hypoglycemia 03/10/20 14:30 06/08/20 14:29 UNV Finasteride (Proscar) 5 mg DAILY ORAL 03/11/20 09:00 06/09/20 08:59 UNV Heparin Sodium (Porcine) (Heparin 5000 units/ml) 5,000 units EVERY 12 HOURS SUBQ 03/10/20 21:00 04/24/20 20:59 UNV Heparin Sodium/ Dextrose 500 ml @ 20.684 mls/ hr ADJUST PER PROTOCOL IV 03/10/20 14:00 04/09/20 13:59 03/10/20 14:08 Insulin Aspart (NovoLOG) BEFORE MEALS AND HS SUBQ 03/10/20 16:30 06/08/20 16:29 UNV Levofloxacin 150 ml @ 100 mls/hr NOW ONCE IVPB 03/10/20 14:00 03/10/20 15:29 03/10/20 14:07 Nateglinide (Starlix) 120 mg DAILY ORAL 03/11/20 09:00 04/10/20 08:59 UNV Nitroglycerin (Ntg) 0.4 mg Every 5 Minutes PRN SL Prn Chest Pain 03/10/20 14:30 04/09/20 14:29 UNV Ondansetron HCl (Zofran) 4 mg Q6H PRN IVP Nausea & Vomiting 03/10/20 14:30 04/09/20 14:29 UNV Polyethylene Glycol (Miralax) 17 gm DAILYPRN PRN ORAL Constipation 03/10/20 14:30 04/09/20 14:29 UNV Sodium Chloride 1,000 ml @ 100 mls/hr Q10H IVLG 03/11/20 14:24 04/10/20 14:23 UNV Sodium Chloride 1,000 ml @ 200 mls/hr Q5H IV 03/10/20 14:00 04/09/20 13:59 03/10/20 13:59 Sodium Chloride 1,000 ml @ 200 mls/hr Q5H IV 03/10/20 14:00 04/09/20 13:59 03/10/20 13:59 Tamsulosin HCl (Flomax) 0.4 mg BEDTIME ORAL 03/10/20 21:00 04/09/20 20:59 UNV Temazepam (Restoril) 15 mg HSPRN PRN ORAL Insomnia 03/10/20 14:30 03/17/20 14:29 UNV Vancomycin HCl 1 gm/Dextrose 275 ml @ 183.3 mls/ hr Q24H IV 03/11/20 00:30 03/16/20 00:29 UNV Assessment/Plan Problem List: (1) NSTEMI (non-ST elevated myocardial infarction) ICD Codes: I21.4 - Non-ST elevation (NSTEMI) myocardial infarction SNOMED: 77866986 (2) Anemia ICD Codes: D64.9 - Anemia, unspecified SNOMED: 501534142 Qualifiers: Qualified Codes: D64.9 - Anemia, unspecified (3) UTI (urinary tract infection) ICD Codes: N39.0 - Urinary tract infection, site not specified SNOMED: 47818471 Qualifiers: Qualified Codes: N39.0 - Urinary tract infection, site not specified; R31.9 - Hematuria, unspecified (4) Bladder cancer ICD Codes: C67.9 - Malignant neoplasm of bladder, unspecified SNOMED: 188071275 (5) Chronic cerebrovascular accident (CVA) ICD Codes: I69.30 - Unspecified sequelae of cerebral infarction SNOMED: 158705372 (6) Alzheimer's dementia ICD Codes: G30.9 - Alzheimer's disease, unspecified; F02.80 - Dementia in other diseases classified elsewhere without behavioral disturbance SNOMED: 70290197 (7) HTN (hypertension) ICD Codes: I10 - Essential (primary) hypertension SNOMED: 49724723 (8) Diabetes mellitus ICD Codes: E11.9 - Type 2 diabetes mellitus without complications SNOMED: 10303378 Assessment/Plan: [facility] monitoring prbc prn anemia w/u iv fluids miller culture IV abx, vanco and cefepime sliding scale symptomatic treatment cardio to see echo cardiogram consider palliative care considering the age and hx of bladder cancer with its complications. Og Hinkle MD Mar 10, 2020 14:39
--- NOTE | 2020-03-10 14:44 | NUR ---
ED Nurse Note: telephone report given to husam spencer for continuity of care. Will initiate blood transfusion and then transfer pt.
[2020-03-10 14:52] LABS: CREATINE KINASE 172 U/L (26-308); LACTATE DEHYDROGENASE 190 U/L (81-234); PHOSPHORUS 2.7 MG/DL (2.5-4.9)
--- NOTE | 2020-03-10 14:59 | History & Physical ---
History and Physical History & Physicial Dictated for Int Med-Dr Lowe no. [id number]. Jean-Claude Peter MD Mar 10, 2020 14:59
[2020-03-10 15:18] LABS: % IRON SATURATION 4 % (15-50); IRON 10 ug/dL (50-175); TOTAL IRON BINDING CAPACITY 259 ug/dL (250-450)
--- NOTE | 2020-03-10 15:20 | NUR ---
TRANSFER TO FLOOR: Patient transferred to [facility] as ordered, per ERMD. Report given to DONELL COBIAN. PT HAD NO BELONGINGS. Family Informed of transfer.
[2020-03-10 16:00] VITALS: BP 126/63
--- NOTE | 2020-03-10 16:00 | NUR ---
NURSE NOTES: Received report from DONELL Leigh. Patient arrived to unit in stable condition. No s/sx of SOB, breathing is even and unlabored, patient on 2LNC with SpO2 98%. Inquired DONELL Leigh if COVID-19 swab was done as this nurse noted that per [facility] chart patient is negative for COVID-19, per DONELL Leigh patient does not meet criteria to be swabbed for COVID-19. Noted, charge nurse made aware, charge nurse verified. Patient noted with no belongings. Patient on Heparin drip due to elevated troponin level of 5.510, patient arrived with ongoing blood transfusion due to hemoglobin level of 6.8. Patient noted with Hematuria with clots per hernandez catheter bag; charge nurse in room during assessments. Patient is noted A&O x 2 with moment of confusion, able to follow simple commands, patient denies any pain or discomfort at this time. Skin integrity is intact. Bed is in lowest position, brakes engaged. Call light is kept within easy reach. Will continue to monitor patient.
[2020-03-10] MEDS ORDERED: Vancomycin 1.25gm/NS Premix IVPB SCH (17:00)
--- NOTE | 2020-03-10 17:00 | NUR ---
NURSE NOTES: Dr. Hinkle at nurse station. Noted with admission orders. Dr. Hinkle made aware that patient currently has hematuria per hernandez catheter bag and is on Heparin IV drip for elevated troponin level of 5.510. Dr. Hinkle acknowledged and ordered to discontinue Heparin IV drip and Heparin 5,000 units SQ Q12HR. And informed this nurse that Dr. Valenzuela is on case for cardiology consult. Charge nurse made aware. Will continue to monitor patient.
--- NOTE | 2020-03-10 17:30 | NUR ---
NURSE NOTES: Patient noted with total of 3 units of PRBC ordered to be transfused. 1 unit order to transfuse per ER doctor and 2 units ordered to transfuse per Dr. Hinkle. Contacted and informed Dr. Hinkle of assessments. Dr. Hinkle acknowledged and instructed this nurse to transfuse ONLY 2 units of PRBC total. Noted.
[2020-03-10] MEDS: NovoLOG Insulin Flexpen SUBQ SCH ×2 (17:39→22:59)
--- NOTE | 2020-03-10 17:41 | Cardiology Progress Note ---
Assessment/Plan Assessment/Plan profound anemai stemi hematuria dementia hx of cva hs of afib anemia iron deff st elevation in inferior leads mild will need echo an repeat ekg hgb too low getting tx Ecotrin when safe rapid covid testing d/w er will have one done now Objective Last 24 Hour Vital Signs Date Time Temp Pulse Resp B/P (MAP) Pulse Ox O2 Delivery O2 Flow Rate FiO2 03/10/20 16:00 97.7 80 126/63 (84) 03/10/20 15:28 98.8 90 19 118/72 100 Room Air 03/10/20 15:14 98.6 88 18 03/10/20 15:10 98.8 84 14 03/10/20 15:05 98.6 18 18 03/10/20 15:00 98.6 95 21 03/10/20 13:53 97.4 89 17 104/65 100 Room Air 03/10/20 12:00 107 17 03/10/20 12:00 97.4 107 17 101/53 99 Room Air 03/10/20 11:59 98.1 88 16 99/63 (75) 98 Room Air Laboratory Tests Test 03/10/20 12:20 03/10/20 13:10 03/10/20 13:20 03/10/20 14:23 White Blood Count 22.8 K/UL (4.8-10.8) *H Red Blood Count 2.93 M/UL (4.70-6.10) L Hemoglobin 6.8 G/DL (14.2-18.0) *L Hematocrit 22.7 % (42.0-52.0) L Mean Corpuscular Volume 78 FL (80-99) L Mean Corpuscular Hemoglobin 23.4 PG (27.0-31.0) L Mean Corpuscular Hemoglobin Concent 30.2 G/DL (32.0-36.0) L Red Cell Distribution Width 14.2 % (11.6-14.8) Platelet Count 323 K/UL (150-450) Mean Platelet Volume 5.6 FL (6.5-10.1) L Neutrophils (%) (Auto) % (45.0-75.0) Lymphocytes (%) (Auto) % (20.0-45.0) Monocytes (%) (Auto) % (1.0-10.0) Eosinophils (%) (Auto) % (0.0-3.0) Basophils (%) (Auto) % (0.0-2.0) Differential Total Cells Counted 100 Neutrophils % (Manual) 92 % (45-75) H Lymphocytes % (Manual) 2 % (20-45) L Monocytes % (Manual) 4 % (1-10) Eosinophils % (Manual) 0 % (0-3) Basophils % (Manual) 2 % (0-2) Band Neutrophils 0 % (0-8) Platelet Estimate Adequate Platelet Morphology Normal Hypochromasia 3+ Anisocytosis 1+ Microcytosis 1+ Reticulocyte Count 0.6 % (0.5-2.0) Sodium Level 136 MMOL/L (136-145) Potassium Level 3.9 MMOL/L (3.5-5.1) Chloride Level 105 MMOL/L (98-107) Carbon Dioxide Level 21 MMOL/L (21-32) Anion Gap 10 mmol/L (5-15) Blood Urea Nitrogen 29 mg/dL (7-18) H Creatinine 1.3 MG/DL (0.55-1.30) Estimat Glomerular Filtration Rate > 60 mL/min (>60) Glucose Level 269 MG/DL (74-106) H Uric Acid 5.8 MG/DL (2.6-7.2) Calcium Level 7.6 MG/DL (8.5-10.1) L Phosphorus Level 2.7 MG/DL (2.5-4.9) Magnesium Level 1.6 MG/DL (1.8-2.4) L Iron Level 10 ug/dL (50-175) L Total Iron Binding Capacity 259 ug/dL (250-450) Percent Iron Saturation 4 % (15-50) L Unsaturated Iron Binding 249 ug/dL (112-346) Total Bilirubin 0.2 MG/DL (0.2-1.0) Aspartate Amino Transf (AST/SGOT) 41 U/L (15-37) H Alanine Aminotransferase (ALT/SGPT) 18 U/L (12-78) Alkaline Phosphatase 71 U/L (46-116) Lactate Dehydrogenase 190 U/L (81-234) Total Creatine Kinase 172 U/L (26-308) Troponin I 5.510 ng/mL (0.000-0.056) Pro-B-Type Natriuretic Peptide 4397 pg/mL (0-125) H Total Protein 6.4 G/DL (6.4-8.2) Albumin 1.9 G/DL (3.4-5.0) L Globulin 4.5 g/dL Albumin/Globulin Ratio 0.4 (1.0-2.7) L Carcinoembryonic Antigen Pending Vitamin B12 Level 786 PG/ML (193-986) Folate 7.1 NG/ML (8.6-58.9) L Free Thyroxine 1.78 NG/DL (0.76-1.46) H Prothrombin Time 12.3 SEC (9.30-11.50) H Prothromb Time International Ratio 1.1 (0.9-1.1) Activated Partial Thromboplast Time 27 SEC (23-33) Lactic Acid Level 2.30 mmol/L (0.4-2.0) H 1.50 mmol/L (0.66-2.22) Urine Color Yellow Urine Appearance Very cloudy Urine pH 6 (4.5-8.0) Urine Specific [place] 1.015 (1.005-1.035) Urine Protein 3+ (NEGATIVE) H Urine Glucose (UA) Negative (NEGATIVE) Urine Ketones 1+ (NEGATIVE) H Urine Blood 5+ (NEGATIVE) H Urine Nitrite Positive (NEGATIVE) H Urine Bilirubin Negative (NEGATIVE) Urine Urobilinogen Normal MG/DL (0.0-1.0) Urine Leukocyte Esterase 3+ (NEGATIVE) H Urine RBC Tntc /HPF (0 - 0) H Urine WBC Tntc /HPF (0 - 0) H Urine Squamous Epithelial Cells Occasional /LPF Urine Amorphous Sediment Moderate /LPF (NONE) H Urine Bacteria Many /HPF (NONE) H Nj Valenzuela MD Mar 10, 2020 17:41
--- NOTE | 2020-03-10 17:45 | NUR ---
NURSE NOTES: Dr. Valenzuela seen and examined patient. MD made aware that patient has troponin level of 5.510, denies chest paint, patient is on 2LNC with SpO2 98%. Informed Dr. Valenzuela that Heparin IV drip for elevated troponin discontinued per Dr. Hinkle due to hematuria. Dr. Valenzuela acknowledged and gave no new orders regarding that at this time. Dr. Valenzuela inquired if patient was swabbed for COVID-19 as that patient came from [facility]. This nurse informed Dr. Valenzuela that patient was not swabbed for COVID-19 as that per ER nurse patient did not meet criteria to be swabbed for COVID-19. Dr. Valenzuela acknowledged, ordered COVID-19 Rapid swab at this time. Patient placed under COVID-19 isolation until swab is resulted. Charge nurse made aware. Order entered, noted, and carried out. Will continue to monitor patient.
[2020-03-10] MEDS ORDERED: Cefepime HCl 2 GM in D5W 110 ML IV SCH (18:00)
--- NOTE | 2020-03-10 18:40 | NUR ---
NURSE NOTES: COVID-19 Rapid swab sample obtained, sample sent to lab for analysis.
--- NOTE | 2020-03-10 19:00 | NUR ---
NURSE NOTES: Patient noted with no code status order, not POLST noted in paper chart and [facility], unable to contact SNF via telephone, receiving busy signal. Dr. Hinkle made aware of assessments and ordered patient on FULL CODE status. Order entered, noted, and carried out. Charge nurse made aware. Will continue to monitor patient.
[2020-03-10 19:07] LABS: APPEARANCE,URINE CLOUDY; BILIRUBIN, URINE NEGATIVE (NEGATIVE); GLUCOSE, URINE (UA) NEGATIVE (NEGATIVE); KETONES,URINE NEGATIVE (NEGATIVE); LEUKOCYTE ESTERASE ,URINE 3+ (NEGATIVE); NITRITE,URINE NEGATIVE (NEGATIVE); PH,URINE 7 (4.5-8.0); PROTEIN,URINE 4+ (NEGATIVE); UROBILINOGEN,URINE NORMAL MG/DL (0.0-1.0)
[2020-03-10 19:15] LABS: COLOR,URINE RED
--- NOTE | 2020-03-10 19:30 | NUR ---
HAND-OFF: Report given to DONELL Almaguer.
--- NOTE | 2020-03-10 19:30 | NUR ---
NURSE NOTES: Report received from DONELL Olivia. Upon assessment patient is A/Ox2 with no signs of distress noted.PERRLA. Vitals WNL. Afebrile. 2L N/C saturating at 100% O2. 5-lead EKG shows SR with 1st degree AVB. IV lines patent and intact. Skin intact. Robertson catheter draining well to gravity with hematuria during shift. Per MD DONELL is aware. Made aware of care plan. Bed in lowest and locked position. Call light within reach. Will continue to monitor.
[2020-03-10 20:00] VITALS: BP 112/80
[2020-03-10] MEDS: Vancomycin 1.25gm/NS Premix IVPB SCH (20:16)
[2020-03-10] MEDS: Tamsulosin 0.4mg cap ORAL SCH (20:16)
--- NOTE | 2020-03-10 20:30 | History and Physical Report ---
DATE OF ADMISSION: 03/10/2020 CHIEF COMPLAINT: The patient is an 84-year-old male who presents with a chief complaint of chest pain. HISTORY OF PRESENT ILLNESS: The patient has a history of bladder cancer diagnosed in November 2018. The patient was last admitted to [facility] in November of 2019. Please see history and physical and discharge summary dictated at that time. The patient is a resident of [facility]. According to staff at [facility], the patient began to experience right-sided chest pain this morning. The patient was transferred to [facility]. The patient was admitted with atypical chest pain to rule out acute coronary syndrome. REVIEW OF SYSTEMS: CONSTITUTIONAL: The patient denies weight loss or weight gain. The patient denies fevers or chills. HEENT: The patient denies ear or throat pain. The patient denies headache. CARDIOVASCULAR: The patient denies palpitations or chest pain. The patient denies headache. CARDIOVASCULAR: The patient complains of chest pain as above. The patient denies palpitations. CHEST: The patient denies wheeze or shortness of breath. ABDOMINAL: The patient denies nausea, vomiting, diarrhea, or constipation. GENITOURINARY: The patient denies dysuria or increased frequency of urination. NEUROMUSCULAR: The patient denies seizures or generalized weakness. PAST MEDICAL HISTORY: Significant for, 1. Bladder cancer, diagnosed in November 2018. 2. Hypertension. 3. Diabetes type 2. 4. Atrioventricular conduction defect. 5. Alzheimer's dementia. 6. Left hydronephrosis. 7. History of cerebrovascular disease, status post cerebrovascular accident. 8. Right hemiplegia, resultant of cerebrovascular accident as above. PAST SURGICAL HISTORY: Significant for: 1. Transurethral resection of bladder tumor and left ureteral stent placement on November 24, 2019. 2. Pacemaker implantation. 3. Transurethral bladder mass resection on November 24, 2018. 4. Left nephrostomy tube placed on November 26, 2018. 5. Cystoscopy and left ureteral stent placement on December 31, 2018. CURRENT MEDICATIONS: 1. Finasteride 5 mg 1 tablet p.o. daily. 2. [place] 5/325 mg 1 tablet p.o. q.6 hours p.r.n. 3. Insulin aspart sliding scale. 4. Starlix 120 mg p.o. daily. 5. Tamsulosin 0.4 mg p.o. daily. ALLERGIES: No known drug allergies. SOCIAL HISTORY: The patient is a and lives at [facility]. The patient denies tobacco or alcohol use. PHYSICAL EXAMINATION: VITAL SIGNS: Temperature 98.1, respirations 16, pulse 88, blood pressure 99/63. GENERAL: The patient is a well-developed and well-nourished male, in no apparent distress. HEENT: Eyes, pupils are equal and responsive to light and accommodation. Extraocular movements are intact. NECK: Supple without lymphadenopathy. CHEST: Lungs are clear to auscultation bilaterally without wheezes or rales. CARDIOVASCULAR: Regular rhythm and rate. S1, S2 are normal without murmurs, rubs, or gallops. ABDOMEN: Soft, nontender, and nondistended. Positive bowel sounds. No evidence of hepatosplenomegaly. Currently, no rebound or guarding noted. EXTREMITIES: Negative for clubbing, cyanosis, or edema. RECTAL/GENITAL: Not performed. NEUROLOGIC: Cranial nerves II through XII are grossly intact without focal deficits. Motor strength is 5/5 bilaterally. Deep tendon reflexes are 2+ plantar. LABORATORY STUDIES: WBC 22.8, hemoglobin 6.8, hematocrit 22.7, and platelets 323,000. Sodium 136, potassium 3.9, chloride 105, CO2 21, BUN 29, creatinine 1.3, glucose 269. BNP elevated at 4397. Chest x-ray was reported as no acute disease. Troponin elevated at 5.51. ASSESSMENT: This is an 84-year-old male. 1. Chest pain. 2. Elevated troponin level. 3. Bladder cancer. 4. Gastritis. 5. Hypertension. 6. Diabetes type 2. 7. Atrioventricular conduction defect. 8. Alzheimer's dementia. 9. Cerebrovascular disease. 10. Right hemiplegia. 11. Pacemaker in situ. TREATMENT: 1. Chest pain/elevated troponin. A Cardiology consultation has been obtained with Dr. Nj Valenzuela. Differential includes acute coronary syndrome versus congestive heart failure. We will follow recommendations of Cardiology. 2. Bladder cancer. The patient is followed as an outpatient by Dr. Macho Allen. The patient is status post transurethral resection of bladder tumor x2. We will follow recommendations of Urology. 3. Gastritis. Continue Protonix as above. 4. Hypertension. 5. Diabetes type 2. A NovoLog sliding scale has been instituted. 6. Atrioventricular conduction defect. The patient is status post pacemaker implantation. 7. Alzheimer's dementia. 8. Cerebrovascular disease, status post cerebrovascular accident. 9. Right hemiplegia. Jean-Claude Peter M.D. DR: AMANDA JOB#: [id number] CC:
[2020-03-10] MEDS ORDERED: Heparin 5000 units/ml inj SUBQ SCH (21:00)
--- NOTE | 2020-03-10 22:00 | NUR ---
NURSE NOTES: Notified by lab of elevated Troponin level of 9.889. EKG performed with results of Rapid Afib and RVR. Dr. Valenzuela notified immediately and instructed new orders of Metoprolol 12.5 mg PO BID. Read back order and initiated care. Pt. states he has no chest pain or SOB. Vitals: 126/87, HR 110, 100% 2L O2, temp of 98.1 ax. Pt. currently running 1 packed RBC with no adverse reactions noted. Will continue monitoring.
[2020-03-10] MEDS: Metoprolol Tartrate 12.5mg TAB ORAL SCH (22:23)
[2020-03-10] MEDS: Cefepime HCl 2 GM in D5W 110 ML IV SCH (22:25)
--- NOTE | 2020-03-10 23:45 | NUR ---
NURSE NOTES: Infusion complete. No ASE noted. Afebrile. Pt states he has no chills, itching, chest pain, or SOB when asked. Will send bag to lab and continue monitoring. 15 minutes after initial transfusion vitals = 138/72, 100 BPM, 98.4 axil. Post transfusion = 97/49, 80 BPM, 98.8 axil.
[2020-03-11] VITALS: BP 97/49
--- NOTE | 2020-03-11 | NUR ---
NURSE NOTES: 1 PRBC infusion complete. Patient vitals 98.8 80 bpm 97/49 and 100% O2 sat. Afebrile. No adverse reactions noted. Blood bag sent back to lab. OB Stool collected and sent to lab. Will continue monitoring.
--- NOTE | 2020-03-11 00:14 | Consultation ---
DATE OF CONSULTATION: 03/10/2020 CARDIOLOGY CONSULTATION CONSULTING PHYSICIAN: Nj Valenzuela M.D. REFERRING PHYSICIAN: Jaziel Lowe M.D. REASON FOR REFERRAL: Abnormal cardiac enzymes. HISTORY OF PRESENT ILLNESS: This is an elderly gentleman who is a rather poor historian. Information on my arrival to the floor became apparent that the patient has not had a COVID testing from a convalescent facility. The patient is on the floor. COVID testing has now been ordered on the rapid basis. The patient will not be seen until that test is confirmed. The patient has already been seen by the emergency room physician. According to the emergency room physician, the patient complained of chest pain, brought in by [facility] from a convalescent facility that pain apparently started 40 minutes prior to arrival, right-sided, dull, 8/10. He was given nitroglycerin with chest pain improvement. Apparently to the emergency room physician, he denied any shortness of breath. Denied any fevers or chills. Denied any coughing. No other aggravating or relieving factors were identified by the patient according to the records. The patient is a convalescent facility resident. PAST MEDICAL HISTORY: Noted on several prior hospitalizations here at [facility] as well as the [facility]. They include a history of transurethral resection and fulguration of extensive bladder tumor with left ureteroscopy and dilatation, a history of bladder cancer, left hydronephrosis, status post cystoscopy, diabetes mellitus, cerebrovascular accident with right hemiplegia, anterior ventricular conduction defect, history of permanent pacemaker implantation, dysphagia, malignant neoplasm of the prostate, anemia, Alzheimer's dementia, right hemiplegia, history of atrial fibrillation, urinary retention, and cachexia documented in the patient's chart. PAST SURGICAL HISTORY: Positive for pacemaker implantation, TURBT, nephrostomy, and cystoscopy. ALLERGIES: None. SOCIAL HISTORY: The patient is . Lives in [facility]. Denies any smoking or alcohol use on prior occasions. REVIEW OF SYSTEMS: Not obtained. PHYSICAL EXAMINATION: GENERAL: As reported by emergency room physician shows him to be in no respiratory distress. Alert and nontoxic. NECK: Neck was felt to be supple. Nontender. LUNGS: Clear with normal breath sounds. Speaking in full sentences. CARDIAC: Regular rate and rhythm. ABDOMEN: Soft, nontender, and nondistended. No guarding. No rebound. EXTREMITIES: Showed no evidence of edema. GENITOURINARY: He had a Robertson catheter in. The patient has clots in the urine at this time. LABORATORY DATA: His laboratories when he presented to the emergency room today, he was noted to have a white count of 22.8 with a hemoglobin 6.8, down from 9.2 previously and a platelet count of 332,000 with MCV of 78. Lymphocyte count decreased to 2. Sodium 136, potassium 3.9, chloride 105, bicarb 21, BUN of 29, creatinine 1.3, and glucose of 269. Calcium is 7.6. Liver function tests are relatively normal. ProBNP of 4300. Albumin of 1.9. He had cardiac enzymes with a troponin of 5.5, magnesium of 1.6, iron of 10 with 4% saturation, and lactic acid of 2.3 subsequently 1.5. B12 7.6. TSH was not drawn, but a free T4 of 1.78. Folic acid of 7.1, which was low. Coags, INR 1.1 and PTT of 27. Urinalysis too numerous to count WBC's and RBC's. X-rays performed in the emergency room interpreted as low lung volumes likely related to shallow respirations. EKG shows sinus rhythm. The patient has some ST-segment depression in V2, V3, and minor ST-segment elevations in V2, V3, and AVF. The patient has intermittent atrial pacing as well as some premature ventricular complexes or V-pacing as well. In direct comparison with the EKG of February 2019, the ST-segment some minor elevations in the inferior leads appeared to be somewhat new and the ST-segment depression in V2 and V3 are also new. ASSESSMENT: 1. Myocardial infarction, possibly late presentation of ST-elevation. 2. Severe anemia. 3. Hematuria. 4. History of bladder tumor status post recent treatment in November. 5. Dementia. 6. Reported history of atrial fibrillation. 7. History of CVA. PLAN: This patient was seen in cardiac consultation. The patient apparently no longer has any chest pains at the present time. He is quite anemic. He has received 1 unit of packed red cells in the emergency room and another one will be administered if he has any significant clots in his Robertson catheter. His anticoagulation was started, but because of persistent bleeding from his tract, the anticoagulation with heparin was discontinued. The patient should receive some aspirin when stable at the present time with continued bleeding and severe anemia may be a contraindication. Certainly, not a candidate for any thrombolytic therapy. The patient appears to be hemodynamically stable at this time. An echocardiogram will be ordered. Repeat cardiac enzymes will be ordered as well as repeat EKGs. COVID testing rapid was discussed with the emergency room and was not done. Apparently, this will be done now here on the floor. Isolation precautions in the interim. It is possible that part of the [place] is related to the demand, but likely an ST-elevation component of myocardial infarction is also present. The patient does have a pacemaker and his EKG does show intermittent atrial pacing as well. Nj Valenzuela M.D. DR: SALMA JOB#: [id number] CC:
[2020-03-11] MEDS ORDERED: Vancomycin 1 GM in D5W 275 ML IV SCH (00:30)
[2020-03-11 04:00] VITALS: BP 105/57
--- NOTE | 2020-03-11 05:00 | NUR ---
NURSE NOTES: pt. asleep resting comfortably with no signs of respiratory or cardiac distress.
[2020-03-11] MEDS: NovoLOG Insulin Flexpen SUBQ SCH ×4 (05:58→21:00)
[2020-03-11 06:13] LABS: HEMOGLOBIN 8.3 G/DL (14.2-18.0); MEAN CORPUSCULAR VOLUME 80 FL (80-99); PLATELET COUNT 267 K/UL (150-450); RED BLOOD COUNT 3.26 M/UL (4.70-6.10); RED CELL DISTRIBUTION WIDTH 15.3 % (11.6-14.8)
[2020-03-11 06:33] LABS: WHITE BLOOD COUNT 28.4 K/UL (4.8-10.8)
[2020-03-11 06:38] LABS: PHOSPHORUS 2.9 MG/DL (2.5-4.9)
--- NOTE | 2020-03-11 07:14 | NUR ---
NURSE NOTES: Report given to DONELL Hammonds. Pt. in stable condition. Endorsed plan of care.
--- NOTE | 2020-03-11 07:24 | NUR ---
NURSE NOTES: Received hand over report from Rosina MARLEY.
--- NOTE | 2020-03-11 07:32 | NUR ---
NURSE NOTES: Called and left message to Dr. Valenzuela regarding Troponin result of 9.889 went to 9.326 (trending low). Awaiting for response. Pt. remain stable.
[2020-03-11 08:00] VITALS: BP 102/61
[2020-03-11 08:09] LABS: ALANINE AMINOTRANSFERASE 19 U/L (12-78); ALBUMIN 2.2 G/DL (3.4-5.0); ALBUMIN/GLOBULIN RATIO 0.5 (1.0-2.7); ALKALINE PHOSPHATASE 80 U/L (46-116); ANION GAP 15 mmol/L (5-15); ASPARTATE AMINO TRANSFERASE 44 U/L (15-37); BILIRUBIN,TOTAL 1.3 MG/DL (0.2-1.0); BLOOD UREA NITROGEN 30 mg/dL (7-18); CALCIUM 8.6 MG/DL (8.5-10.1); CARBON DIOXIDE 18 MMOL/L (21-32); CHLORIDE 105 MMOL/L (98-107); CREATININE 1.3 MG/DL (0.55-1.30); POTASSIUM 4.6 MMOL/L (3.5-5.1); SODIUM 138 MMOL/L (136-145)
[2020-03-11 08:16] LABS: BILIRUBIN,DIRECT 0.4 MG/DL (0.0-0.3)
[2020-03-11] MEDS: Metoprolol Tartrate 12.5mg TAB ORAL SCH ×2 (08:54→18:00)
--- NOTE | 2020-03-11 09:10 | NUR ---
NURSE NOTES: Report received from DONELL Hammonds. upon assessment pt. is a/o x3, able to make needs known. no respiratory or cardiac distress noted. pt. on 2L n/c saturating at 100%. 5-lead ekg shows a/v pacing with pacemaker noted on left chest. pt. right forearm and left forearm IV lines are patent. patient vitals WNL. afebrile. hernandez catheter draining well with hematuria noted. MD aware. all needs met and snacks/fluids offered as tolerated. skin intact. bed placed in lowest and locked position. call light within reach. bed alarm on. will continue to monitor. Addendum: 03/12/20 at 0048 by Rosina Leal RN Wrong time. corrected for 03/11 1910.
--- NOTE | 2020-03-11 09:20 | NUR ---
NURSE NOTES: Seen by Dr. Callaway (covering for Dr. Mehnaz TIMMONS) made aware of WBC 28.4 from 22.8 and also hematuria.
--- NOTE | 2020-03-11 10:15 | Consultation ---
History of Present Illness General Date patient seen: Mar 11, 2020 Time patient seen: 09:00 Chief Complaint: Chest Pain Referring physician: Dr. Peter Reason for Consultation: Leukocytosis Present Illness HPI 84yo M w/ h/o bladder CA who presents from SNF for chest pain, found to have elevated troponin. ID c/s given leukocytosis. Pt poor historian, minimally interactive. Most of history obtained from RN. Pt is clinically stable, resp status doing well, no cough. No pain. No diarrhea. No skin issues, no sacral decubs per RN. No swelling. No N/V. Pt has remained AF in should, satting 100% on 2L NC. Allergies: Coded Allergies: No Known Allergies (Unverified , 04/09/16) Medication History Scheduled Cran/Vitc/Mannose/Inulin/Brom (Uti-Stat Liquid), 3,875 MG PO DAILY, (Reported) Finasteride (Finasteride), 5 MG ORAL DAILY Insulin Aspart (Novolog Flexpen), 0 UNITS SUBQ BEFORE MEALS AND HS Nateglinide (Starlix), 120 MG ORAL DAILY, (Reported) Tamsulosin HCl (Flomax), 0.4 MG ORAL BEDTIME Scheduled PRN Hydrocodone Bit/Acetaminophen 5-325* ([place] 5-325 Tablet*), 1 TAB ORAL Q6H PRN for FOR PAIN, (Reported) Ondansetron Odt* (Zofran Odt*), 8 MG ORAL Q8HR PRN for Nausea & Vomiting, ( Reported) Patient History Healthcare decision maker Resuscitation status Advanced Directive on File Review of Systems ROS Narrative Unable to obtain 2/2 pt condition Physical Exam Physical Exam Narrative Gen: Older man, laying in bed, NAD HEENT: OP clear, MM dry, no LAD CV: RRR Pulm: CTAB anteriorly Abd: Soft, thin, NTND Ext: No c/c/e Skin: No notable skin lesions, rashes or ulcers Last 24 Hour Vital Signs Date Time Temp Pulse Resp B/P (MAP) Pulse Ox O2 Delivery O2 Flow Rate FiO2 03/11/20 08:54 90 102/61 03/11/20 08:00 97.0 90 20 102/61 (75) 100 03/11/20 04:00 98.7 89 20 105/57 (73) 100 03/11/20 04:00 Nasal Cannula 2.0 03/11/20 03:31 83 03/11/20 00:00 96 03/11/20 00:00 Nasal Cannula 2.0 03/11/20 00:00 98.8 80 24 97/49 (65) 100 03/10/20 22:23 110 127/67 03/10/20 20:00 Nasal Cannula 2.0 03/10/20 20:00 97.9 85 112/80 (91) 03/10/20 20:00 76 03/10/20 19:05 98 Nasal Cannula 2.0 28 03/10/20 16:05 Nasal Cannula 2.0 03/10/20 16:00 116 03/10/20 16:00 97.7 80 126/63 (84) 03/10/20 15:28 98.8 90 19 118/72 100 Room Air 03/10/20 15:14 98.6 88 18 03/10/20 15:10 98.8 84 14 03/10/20 15:05 98.6 18 18 03/10/20 15:00 98.6 95 21 03/10/20 13:53 97.4 89 17 104/65 100 Room Air 03/10/20 12:00 107 17 03/10/20 12:00 97.4 107 17 101/53 99 Room Air 03/10/20 11:59 98.1 88 16 99/63 (75) 98 Room Air Intake and Output 03/10/20 03/11/20 19:00 07:00 Intake Total 200 ml 1007.7 ml Output Total 1000 ml 1100 ml Balance -800 ml -92.3 ml Intake Oral 200 ml 100 ml IV Total 907.7 ml Output Urine Total 1000 ml 1100 ml # Bowel Movements 3 2 Laboratory Tests Test 03/10/20 12:20 03/10/20 13:10 03/10/20 13:20 03/10/20 14:23 White Blood Count 22.8 K/UL (4.8-10.8) *H Red Blood Count 2.93 M/UL (4.70-6.10) L Hemoglobin 6.8 G/DL (14.2-18.0) *L Hematocrit 22.7 % (42.0-52.0) L Mean Corpuscular Volume 78 FL (80-99) L Mean Corpuscular Hemoglobin 23.4 PG (27.0-31.0) L Mean Corpuscular Hemoglobin Concent 30.2 G/DL (32.0-36.0) L Red Cell Distribution Width 14.2 % (11.6-14.8) Platelet Count 323 K/UL (150-450) Mean Platelet Volume 5.6 FL (6.5-10.1) L Neutrophils (%) (Auto) % (45.0-75.0) Lymphocytes (%) (Auto) % (20.0-45.0) Monocytes (%) (Auto) % (1.0-10.0) Eosinophils (%) (Auto) % (0.0-3.0) Basophils (%) (Auto) % (0.0-2.0) Differential Total Cells Counted 100 Neutrophils % (Manual) 92 % (45-75) H Lymphocytes % (Manual) 2 % (20-45) L Monocytes % (Manual) 4 % (1-10) Eosinophils % (Manual) 0 % (0-3) Basophils % (Manual) 2 % (0-2) Band Neutrophils 0 % (0-8) Platelet Estimate Adequate Platelet Morphology Normal Hypochromasia 3+ Anisocytosis 1+ Microcytosis 1+ Reticulocyte Count 0.6 % (0.5-2.0) Sodium Level 136 MMOL/L (136-145) Potassium Level 3.9 MMOL/L (3.5-5.1) Chloride Level 105 MMOL/L (98-107) Carbon Dioxide Level 21 MMOL/L (21-32) Anion Gap 10 mmol/L (5-15) Blood Urea Nitrogen 29 mg/dL (7-18) H Creatinine 1.3 MG/DL (0.55-1.30) Estimat Glomerular Filtration Rate > 60 mL/min (>60) Glucose Level 269 MG/DL (74-106) H Uric Acid 5.8 MG/DL (2.6-7.2) Calcium Level 7.6 MG/DL (8.5-10.1) L Phosphorus Level 2.7 MG/DL (2.5-4.9) Magnesium Level 1.6 MG/DL (1.8-2.4) L Iron Level 10 ug/dL (50-175) L Total Iron Binding Capacity 259 ug/dL (250-450) Percent Iron Saturation 4 % (15-50) L Unsaturated Iron Binding 249 ug/dL (112-346) Total Bilirubin 0.2 MG/DL (0.2-1.0) Aspartate Amino Transf (AST/SGOT) 41 U/L (15-37) H Alanine Aminotransferase (ALT/SGPT) 18 U/L (12-78) Alkaline Phosphatase 71 U/L (46-116) Lactate Dehydrogenase 190 U/L (81-234) Total Creatine Kinase 172 U/L (26-308) Troponin I 5.510 ng/mL (0.000-0.056) Pro-B-Type Natriuretic Peptide 4397 pg/mL (0-125) H Total Protein 6.4 G/DL (6.4-8.2) Albumin 1.9 G/DL (3.4-5.0) L Globulin 4.5 g/dL Albumin/Globulin Ratio 0.4 (1.0-2.7) L Carcinoembryonic Antigen Pending Vitamin B12 Level 786 PG/ML (193-986) Folate 7.1 NG/ML (8.6-58.9) L Free Thyroxine 1.78 NG/DL (0.76-1.46) H Prothrombin Time 12.3 SEC (9.30-11.50) H Prothromb Time International Ratio 1.1 (0.9-1.1) Activated Partial Thromboplast Time 27 SEC (23-33) Lactic Acid Level 2.30 mmol/L (0.4-2.0) H 1.50 mmol/L (0.66-2.22) Urine Color Yellow Urine Appearance Very cloudy Urine pH 6 (4.5-8.0) Urine Specific [place] 1.015 (1.005-1.035) Urine Protein 3+ (NEGATIVE) H Urine Glucose (UA) Negative (NEGATIVE) Urine Ketones 1+ (NEGATIVE) H Urine Blood 5+ (NEGATIVE) H Urine Nitrite Positive (NEGATIVE) H Urine Bilirubin Negative (NEGATIVE) Urine Urobilinogen Normal MG/DL (0.0-1.0) Urine Leukocyte Esterase 3+ (NEGATIVE) H Urine RBC Tntc /HPF (0 - 0) H Urine WBC Tntc /HPF (0 - 0) H Urine Squamous Epithelial Cells Occasional /LPF Urine Amorphous Sediment Moderate /LPF (NONE) H Urine Bacteria Many /HPF (NONE) H Test 03/10/20 17:29 03/10/20 18:30 03/10/20 20:16 03/10/20 22:56 POC Whole Blood Glucose 192 MG/DL (74-106) H 133 MG/DL (74-106) H Urine Color Red Urine Appearance Cloudy Urine pH 7 (4.5-8.0) Urine Specific [place] 1.010 (1.005-1.035) Urine Protein 4+ (NEGATIVE) H Urine Glucose (UA) Negative (NEGATIVE) Urine Ketones Negative (NEGATIVE) Urine Blood 5+ (NEGATIVE) H Urine Nitrite Negative (NEGATIVE) Urine Bilirubin Negative (NEGATIVE) Urine Urobilinogen Normal MG/DL (0.0-1.0) Urine Leukocyte Esterase 3+ (NEGATIVE) H Urine RBC Tntc /HPF (0 - 0) H Urine WBC 20-30 /HPF (0 - 0) H Urine Squamous Epithelial Cells Few /LPF (NONE/OCC) Urine Bacteria Few /HPF (NONE) Urine Eosinophils None seen (NONE SEEN) Urine Osmolality 398 mOsm/kg (429-449) L Urine Random Sodium 84 mmol/L (20-110) Troponin I 9.889 ng/mL (0.000-0.056) Test 03/11/20 01:00 03/11/20 02:41 03/11/20 05:53 03/11/20 09:30 Stool Occult Blood Pending White Blood Count 28.4 K/UL (4.8-10.8) *H Red Blood Count 3.26 M/UL (4.70-6.10) L Hemoglobin 8.3 G/DL (14.2-18.0) L Hematocrit 26.0 % (42.0-52.0) L Mean Corpuscular Volume 80 FL (80-99) Mean Corpuscular Hemoglobin 25.3 PG (27.0-31.0) L Mean Corpuscular Hemoglobin Concent 31.8 G/DL (32.0-36.0) L Red Cell Distribution Width 15.3 % (11.6-14.8) H Platelet Count 267 K/UL (150-450) Mean Platelet Volume 5.3 FL (6.5-10.1) L Neutrophils (%) (Auto) % (45.0-75.0) Lymphocytes (%) (Auto) % (20.0-45.0) Monocytes (%) (Auto) % (1.0-10.0) Eosinophils (%) (Auto) % (0.0-3.0) Basophils (%) (Auto) % (0.0-2.0) Neutrophils % (Manual) Pending Lymphocytes % (Manual) Pending Platelet Estimate Pending Platelet Morphology Pending Erythrocyte Sedimentation Rate 123 MM/HR (0-20) H Sodium Level 138 MMOL/L (136-145) Potassium Level 4.6 MMOL/L (3.5-5.1) Chloride Level 105 MMOL/L (98-107) Carbon Dioxide Level 18 MMOL/L (21-32) L Anion Gap 15 mmol/L (5-15) Blood Urea Nitrogen 30 mg/dL (7-18) H Creatinine 1.3 MG/DL (0.55-1.30) Estimat Glomerular Filtration Rate > 60 mL/min (>60) Glucose Level 106 MG/DL (74-106) # Calcium Level 8.6 MG/DL (8.5-10.1) Phosphorus Level 2.9 MG/DL (2.5-4.9) Magnesium Level 1.7 MG/DL (1.8-2.4) L Total Bilirubin 1.3 MG/DL (0.2-1.0) H Direct Bilirubin 0.4 MG/DL (0.0-0.3) H Aspartate Amino Transf (AST/SGOT) 44 U/L (15-37) H Alanine Aminotransferase (ALT/SGPT) 19 U/L (12-78) Alkaline Phosphatase 80 U/L (46-116) Troponin I 9.326 ng/mL (0.000-0.056) 7.648 ng/mL (0.000-0.056) C-Reactive Protein, Quantitative 11.4 mg/dL (0.00-0.90) H Total Protein 6.3 G/DL (6.4-8.2) L Albumin 2.2 G/DL (3.4-5.0) L Globulin 4.1 g/dL Albumin/Globulin Ratio 0.5 (1.0-2.7) L POC Whole Blood Glucose 118 MG/DL (74-106) H Microbiology Date/Time Source Procedure Growth Status 03/10/20 18:30 Nasopharynx SARS-CoV-2 RdRp Gene Assay - Final Complete 03/10/20 18:30 Urine,Clean Catch Urine Culture - Preliminary NO GROWTH Resulted 03/10/20 13:20 Urine,Clean Catch Urine Culture - Preliminary NO GROWTH Resulted Height (Feet): 5 Height (Inches): 9.00 Weight (Pounds): 190 Medications Current Medications Medications (Trade) Dose Ordered Sig/Levi Route PRN Reason Start Time Stop Time Status Last Admin Dose Admin Acetaminophen (Tylenol) 650 mg Q4H PRN ORAL fever (T>100.5F) 03/10/20 14:30 04/09/20 14:29 Albuterol/ Ipratropium (Albuterol/ Ipratropium) 3 ml Q4H PRN HHN Shortness of Breath 03/10/20 14:30 03/15/20 14:29 Cefepime HCl 2 gm/ Dextrose 110 ml @ 220 mls/hr Q24H IV 03/10/20 21:00 03/17/20 20:59 03/10/20 22:25 Dextrose (Dextrose 50%) 25 ml Q30MIN PRN IV Hypoglycemia 03/10/20 14:30 06/08/20 14:29 Dextrose (Dextrose 50%) 50 ml Q30M PRN IV Hypoglycemia 03/10/20 14:30 06/08/20 14:29 Finasteride (Proscar) 5 mg DAILY ORAL 03/11/20 09:00 06/09/20 08:59 03/11/20 08:53 Insulin Aspart (NovoLOG) BEFORE MEALS AND HS SUBQ 03/10/20 17:00 06/08/20 16:59 03/11/20 05:58 Metoprolol Tartrate (Lopressor) 12.5 mg BID ORAL 03/10/20 22:00 06/08/20 21:59 03/10/20 22:23 Nateglinide (Starlix) 120 mg DAILY ORAL 03/11/20 09:00 04/10/20 08:59 03/11/20 08:54 Nitroglycerin (Ntg) 0.4 mg Q5M PRN SL Prn Chest Pain 03/10/20 14:30 04/09/20 14:29 Ondansetron HCl (Zofran) 4 mg Q6H PRN IVP Nausea & Vomiting 03/10/20 14:30 04/09/20 14:29 Polyethylene Glycol (Miralax) 17 gm DAILYPRN PRN ORAL Constipation 03/10/20 14:30 04/09/20 14:29 Sodium Chloride 1,000 ml @ 100 mls/hr Q10H IVLG 03/10/20 16:15 04/09/20 16:14 03/11/20 01:57 Tamsulosin HCl (Flomax) 0.4 mg BEDTIME ORAL 03/10/20 21:00 04/09/20 20:59 03/10/20 20:16 Temazepam (Restoril) 15 mg HSPRN PRN ORAL Insomnia 03/10/20 14:30 03/17/20 14:29 Vancomycin HCl (Vanco pharmacy to dose) 1 ea DAILY PRN MISC PER RX PROTOCOL 03/10/20 16:15 04/09/20 16:14 Vancomycin/Sodium Chloride 275 ml @ 183.333 mls/hr Q24H IVPB 03/10/20 20:00 03/15/20 19:59 03/10/20 20:16 Assessment/Plan Assessment/Plan: 84yo M with bladder cancer who p/w chest pain, found to have elevated troponin and leukocytosis. Afebrile R/o sepsis Leukocytosis, 22--> 28 R/o UTI, UA with 20-30 WBC, UCx p Rapid COVID neg x1 CXR unremarkable, satting well on 2L NC R/o bacteremia 03/11 BCx ordered 03/10 BCx p NSTEMI w/ elevated troponin, can also be a cause of reactive leukocytosis Bladder cancer Hematuria Plan: Cont empiric abx with vanco and cefepime #1 MRSA nares, if neg can d/c vanco No diarrhea, but if occurs check C.dif F/u UCx (UA w/ pyuria) F/u BCx Trend resp status Trend leukocytosis daily Monitor CBC, CMP D/w RN Thank you for this consult. [facility] will continue to follow. Carlie Callaway M.D. Mar 11, 2020 10:15
[2020-03-11 12:00] VITALS: BP 105/59
[2020-03-11] MEDS ORDERED: Tubing IV Secondary IV ONE (12:16)
[2020-03-11] MEDS ORDERED: NS Irrig 1000ml ONE (12:16)
--- NOTE | 2020-03-11 12:27 | Cardiology Progress Note ---
Assessment/Plan Assessment/Plan 1. Myocardial infarction, possibly late presentation of ST-elevation. 2. Severe anemia. 3. Hematuria. 4. History of bladder tumor status post recent treatment in November. 5. Dementia. 6. Reported history of atrial fibrillation. 7. History of CVA. 8. Leukocytosis i was called early this am with afib rvr iv metoprolol ordered for rate control now back to sinus trop peaked yest now on a downward trend wbc sig elevated id now following bp borderline afebrile tele reviewed had afib now back to sinus ekg from yest reviewed st elevation min in inferior lead , no ekg yet performed today rn will call me after done echo personally reviewed , the inferior wall endocardium is poorly defined but part of the post wall is hypokinetic , ivc dilated , pacing wire noted await gi input stool for ob off anticoagualtion due to anemia will give ecotrin low dose Subjective Cardiovascular: Denies: chest pain, lightheadedness, palpitations Respiratory: Denies: cough, shortness of breath Gastrointestinal/Abdominal: Denies: abdominal pain Genitourinary: Denies: burning Objective Last 24 Hour Vital Signs Date Time Temp Pulse Resp B/P (MAP) Pulse Ox O2 Delivery O2 Flow Rate FiO2 03/11/20 08:54 90 102/61 03/11/20 08:00 97.0 90 20 102/61 (75) 100 03/11/20 08:00 Nasal Cannula 2.0 03/11/20 07:40 68 03/11/20 04:00 98.7 89 20 105/57 (73) 100 03/11/20 04:00 Nasal Cannula 2.0 03/11/20 03:31 83 03/11/20 00:00 96 03/11/20 00:00 Nasal Cannula 2.0 03/11/20 00:00 98.8 80 24 97/49 (65) 100 03/10/20 22:23 110 127/67 03/10/20 20:00 Nasal Cannula 2.0 03/10/20 20:00 97.9 85 112/80 (91) 03/10/20 20:00 76 03/10/20 19:05 98 Nasal Cannula 2.0 28 03/10/20 16:05 Nasal Cannula 2.0 03/10/20 16:00 116 03/10/20 16:00 97.7 80 126/63 (84) 03/10/20 15:28 98.8 90 19 118/72 100 Room Air 03/10/20 15:14 98.6 88 18 03/10/20 15:10 98.8 84 14 03/10/20 15:05 98.6 18 18 03/10/20 15:00 98.6 95 21 03/10/20 13:53 97.4 89 17 104/65 100 Room Air General Appearance: no apparent distress, alert, patient on isolation Cardiovascular: normal rate Respiratory/Chest: lungs clear Abdomen: normal bowel sounds, non tender, soft Extremities: no swelling Intake and Output 03/10/20 03/11/20 19:00 07:00 Intake Total 200 ml 1007.7 ml Output Total 1000 ml 1100 ml Balance -800 ml -92.3 ml Intake Oral 200 ml 100 ml IV Total 907.7 ml Output Urine Total 1000 ml 1100 ml # Bowel Movements 3 2 Laboratory Tests Test 03/10/20 13:10 03/10/20 13:20 03/10/20 14:23 03/10/20 17:29 Prothrombin Time 12.3 SEC (9.30-11.50) H Prothromb Time International Ratio 1.1 (0.9-1.1) Activated Partial Thromboplast Time 27 SEC (23-33) Lactic Acid Level 2.30 mmol/L (0.4-2.0) H 1.50 mmol/L (0.66-2.22) Urine Color Yellow Urine Appearance Very cloudy Urine pH 6 (4.5-8.0) Urine Specific [place] 1.015 (1.005-1.035) Urine Protein 3+ (NEGATIVE) H Urine Glucose (UA) Negative (NEGATIVE) Urine Ketones 1+ (NEGATIVE) H Urine Blood 5+ (NEGATIVE) H Urine Nitrite Positive (NEGATIVE) H Urine Bilirubin Negative (NEGATIVE) Urine Urobilinogen Normal MG/DL (0.0-1.0) Urine Leukocyte Esterase 3+ (NEGATIVE) H Urine RBC Tntc /HPF (0 - 0) H Urine WBC Tntc /HPF (0 - 0) H Urine Squamous Epithelial Cells Occasional /LPF Urine Amorphous Sediment Moderate /LPF (NONE) H Urine Bacteria Many /HPF (NONE) H POC Whole Blood Glucose 192 MG/DL (74-106) H Test 03/10/20 18:30 03/10/20 20:16 03/10/20 22:56 03/11/20 01:00 Urine Color Red Urine Appearance Cloudy Urine pH 7 (4.5-8.0) Urine Specific [place] 1.010 (1.005-1.035) Urine Protein 4+ (NEGATIVE) H Urine Glucose (UA) Negative (NEGATIVE) Urine Ketones Negative (NEGATIVE) Urine Blood 5+ (NEGATIVE) H Urine Nitrite Negative (NEGATIVE) Urine Bilirubin Negative (NEGATIVE) Urine Urobilinogen Normal MG/DL (0.0-1.0) Urine Leukocyte Esterase 3+ (NEGATIVE) H Urine RBC Tntc /HPF (0 - 0) H Urine WBC 20-30 /HPF (0 - 0) H Urine Squamous Epithelial Cells Few /LPF (NONE/OCC) Urine Bacteria Few /HPF (NONE) Urine Eosinophils None seen (NONE SEEN) Urine Osmolality 398 mOsm/kg (429-449) L Urine Random Sodium 84 mmol/L (20-110) Troponin I 9.889 ng/mL (0.000-0.056) POC Whole Blood Glucose 133 MG/DL (74-106) H Stool Occult Blood Negative (NEGATIVE) Test 03/11/20 02:41 03/11/20 05:53 03/11/20 09:30 White Blood Count 28.4 K/UL (4.8-10.8) *H Red Blood Count 3.26 M/UL (4.70-6.10) L Hemoglobin 8.3 G/DL (14.2-18.0) L Hematocrit 26.0 % (42.0-52.0) L Mean Corpuscular Volume 80 FL (80-99) Mean Corpuscular Hemoglobin 25.3 PG (27.0-31.0) L Mean Corpuscular Hemoglobin Concent 31.8 G/DL (32.0-36.0) L Red Cell Distribution Width 15.3 % (11.6-14.8) H Platelet Count 267 K/UL (150-450) Mean Platelet Volume 5.3 FL (6.5-10.1) L Neutrophils (%) (Auto) % (45.0-75.0) Lymphocytes (%) (Auto) % (20.0-45.0) Monocytes (%) (Auto) % (1.0-10.0) Eosinophils (%) (Auto) % (0.0-3.0) Basophils (%) (Auto) % (0.0-2.0) Differential Total Cells Counted 100 Neutrophils % (Manual) 92 % (45-75) H Lymphocytes % (Manual) 4 % (20-45) L Monocytes % (Manual) 4 % (1-10) Eosinophils % (Manual) 0 % (0-3) Basophils % (Manual) 0 % (0-2) Band Neutrophils 0 % (0-8) Platelet Estimate Adequate Platelet Morphology Normal Hypochromasia 2+ Anisocytosis 1+ Erythrocyte Sedimentation Rate 123 MM/HR (0-20) H Sodium Level 138 MMOL/L (136-145) Potassium Level 4.6 MMOL/L (3.5-5.1) Chloride Level 105 MMOL/L (98-107) Carbon Dioxide Level 18 MMOL/L (21-32) L Anion Gap 15 mmol/L (5-15) Blood Urea Nitrogen 30 mg/dL (7-18) H Creatinine 1.3 MG/DL (0.55-1.30) Estimat Glomerular Filtration Rate > 60 mL/min (>60) Glucose Level 106 MG/DL (74-106) # Calcium Level 8.6 MG/DL (8.5-10.1) Phosphorus Level 2.9 MG/DL (2.5-4.9) Magnesium Level 1.7 MG/DL (1.8-2.4) L Total Bilirubin 1.3 MG/DL (0.2-1.0) H Direct Bilirubin 0.4 MG/DL (0.0-0.3) H Aspartate Amino Transf (AST/SGOT) 44 U/L (15-37) H Alanine Aminotransferase (ALT/SGPT) 19 U/L (12-78) Alkaline Phosphatase 80 U/L (46-116) Troponin I 9.326 ng/mL (0.000-0.056) 7.648 ng/mL (0.000-0.056) C-Reactive Protein, Quantitative 11.4 mg/dL (0.00-0.90) H Total Protein 6.3 G/DL (6.4-8.2) L Albumin 2.2 G/DL (3.4-5.0) L Globulin 4.1 g/dL Albumin/Globulin Ratio 0.5 (1.0-2.7) L POC Whole Blood Glucose 118 MG/DL (74-106) H Microbiology Date/Time Source Procedure Growth Status 03/10/20 18:30 Nasopharynx SARS-CoV-2 RdRp Gene Assay - Final Complete 03/10/20 18:30 Urine,Clean Catch Urine Culture - Preliminary NO GROWTH Resulted 03/10/20 13:20 Urine,Clean Catch Urine Culture - Preliminary NO GROWTH Resulted Nj Valenzuela MD Mar 11, 2020 12:27
[2020-03-11] MEDS: Aspirin EC 81mg tab ORAL SCH (12:45)
[2020-03-11 13:01] LABS: CHOLESTEROL 90 MG/DL (< 200); HDL CHOLESTEROL 28 MG/DL (40-60); TRIGLYCERIDES 54 MG/DL (30-150)
--- NOTE | 2020-03-11 13:01 | NUR ---
NURSE NOTES: Aspirin 81mg. held due to hematuria noted.
--- NOTE | 2020-03-11 14:54 | Pulmonology Progress Note ---
Subjective ROS Limited/Unobtainable: Yes Allergies: Coded Allergies: No Known Allergies (Unverified , 04/09/16) Objective Last 24 Hour Vital Signs Date Time Temp Pulse Resp B/P (MAP) Pulse Ox O2 Delivery O2 Flow Rate FiO2 03/11/20 12:25 88 03/11/20 12:00 97.9 70 19 105/59 (74) 100 03/11/20 12:00 Nasal Cannula 2.0 03/11/20 08:54 90 102/61 03/11/20 08:00 97.0 90 20 102/61 (75) 100 03/11/20 08:00 Nasal Cannula 2.0 03/11/20 07:40 68 03/11/20 04:00 98.7 89 20 105/57 (73) 100 03/11/20 04:00 Nasal Cannula 2.0 03/11/20 03:31 83 03/11/20 00:00 96 03/11/20 00:00 Nasal Cannula 2.0 03/11/20 00:00 98.8 80 24 97/49 (65) 100 03/10/20 22:23 110 127/67 03/10/20 20:00 Nasal Cannula 2.0 03/10/20 20:00 97.9 85 112/80 (91) 03/10/20 20:00 76 03/10/20 19:05 98 Nasal Cannula 2.0 28 03/10/20 16:05 Nasal Cannula 2.0 03/10/20 16:00 116 03/10/20 16:00 97.7 80 126/63 (84) 03/10/20 15:28 98.8 90 19 118/72 100 Room Air 03/10/20 15:14 98.6 88 18 03/10/20 15:10 98.8 84 14 03/10/20 15:05 98.6 18 18 03/10/20 15:00 98.6 95 21 Intake and Output 03/10/20 03/11/20 19:00 07:00 Intake Total 200 ml 1007.7 ml Output Total 1000 ml 1100 ml Balance -800 ml -92.3 ml Intake Oral 200 ml 100 ml IV Total 907.7 ml Output Urine Total 1000 ml 1100 ml # Bowel Movements 3 2 General Appearance: cachetic HEENT: normocephalic, atraumatic Respiratory: chest wall non-tender, lungs clear, normal breath sounds, no respiratory distress Cardiovascular: normal peripheral pulses, normal rate, regular rhythm Abdomen: normal bowel sounds, soft, non tender, no organomegaly Genitourinary: normal external genitalia Extremities: no clubbing Microbiology Date/Time Source Procedure Growth Status 03/10/20 18:30 Nasopharynx SARS-CoV-2 RdRp Gene Assay - Final Complete 03/10/20 18:30 Urine,Clean Catch Urine Culture - Preliminary NO GROWTH Resulted 03/10/20 13:20 Urine,Clean Catch Urine Culture - Preliminary NO GROWTH Resulted Laboratory Tests 03/10/20 17:29: POC Whole Blood Glucose 192H 03/10/20 18:30: Urine Color Red, Urine Appearance Cloudy, Urine pH 7, Urine Specific [place] 1.010, Urine Protein 4+H, Urine Glucose (UA) Negative, Urine Ketones Negative, Urine Blood 5+H, Urine Nitrite Negative, Urine Bilirubin Negative, Urine Urobilinogen Normal, Urine Leukocyte Esterase 3+H, Urine RBC TntcH, Urine WBC 20 -30H, Urine Squamous Epithelial Cells Few, Urine Bacteria Few, Urine Eosinophils None seen, Urine Osmolality 398L, Urine Random Sodium 84 03/10/20 20:16: Troponin I 9.889H 03/10/20 22:56: POC Whole Blood Glucose 133H 03/11/20 01:00: Stool Occult Blood Negative 03/11/20 02:41: White Blood Count 28.4*H, Red Blood Count 3.26L, Hemoglobin 8.3L, Hematocrit 26.0L, Mean Corpuscular Volume 80, Mean Corpuscular Hemoglobin 25.3L, Mean Corpuscular Hemoglobin Concent 31.8L, Red Cell Distribution Width 15.3H, Platelet Count 267, Mean Platelet Volume 5.3L, Neutrophils (%) (Auto) , Lymphocytes (%) (Auto) , Monocytes (%) (Auto) , Eosinophils (%) (Auto) , Basophils (%) (Auto) , Differential Total Cells Counted 100, Neutrophils % ( Manual) 92H, Lymphocytes % (Manual) 4L, Monocytes % (Manual) 4, Eosinophils % ( Manual) 0, Basophils % (Manual) 0, Band Neutrophils 0, Platelet Estimate Adequate, Platelet Morphology Normal, Hypochromasia 2+, Anisocytosis 1+, Erythrocyte Sedimentation Rate 123H, Sodium Level 138, Potassium Level 4.6, Chloride Level 105, Carbon Dioxide Level 18L, Anion Gap 15, Blood Urea Nitrogen 30H, Creatinine 1.3, Estimat Glomerular Filtration Rate > 60, Glucose Level 106# , Calcium Level 8.6, Phosphorus Level 2.9, Magnesium Level 1.7L, Total Bilirubin 1.3H, Direct Bilirubin 0.4H, Aspartate Amino Transf (AST/SGOT) 44H, Alanine Aminotransferase (ALT/SGPT) 19, Alkaline Phosphatase 80, Troponin I 9.326H, C-Reactive Protein, Quantitative 11.4H, Total Protein 6.3L, Albumin 2.2L , Globulin 4.1, Albumin/Globulin Ratio 0.5L, Triglycerides Level 54, Cholesterol Level 90, LDL Cholesterol 57, HDL Cholesterol 28L, Cholesterol/HDL Ratio 3.2L 03/11/20 05:53: POC Whole Blood Glucose 118H 03/11/20 09:30: Troponin I 7.648H Current Medications Medications (Trade) Dose Ordered Sig/Levi Route PRN Reason Start Time Stop Time Status Last Admin Dose Admin Acetaminophen (Tylenol) 650 mg Q4H PRN ORAL fever (T>100.5F) 03/10/20 14:30 04/09/20 14:29 Albuterol/ Ipratropium (Albuterol/ Ipratropium) 3 ml Q4H PRN HHN Shortness of Breath 03/10/20 14:30 03/15/20 14:29 Aspirin (Ecotrin) 81 mg DAILY ORAL 03/11/20 12:45 04/25/20 12:44 Atorvastatin Calcium (Lipitor) 20 mg BEDTIME ORAL 03/11/20 21:00 06/09/20 20:59 Cefepime HCl 2 gm/ Dextrose 110 ml @ 220 mls/hr Q24H IV 03/10/20 21:00 03/17/20 20:59 03/10/20 22:25 Dextrose (Dextrose 50%) 25 ml Q30MIN PRN IV Hypoglycemia 03/10/20 14:30 06/08/20 14:29 Dextrose (Dextrose 50%) 50 ml Q30M PRN IV Hypoglycemia 03/10/20 14:30 06/08/20 14:29 Finasteride (Proscar) 5 mg DAILY ORAL 03/11/20 09:00 06/09/20 08:59 03/11/20 08:53 Insulin Aspart (NovoLOG) BEFORE MEALS AND HS SUBQ 03/10/20 17:00 06/08/20 16:59 03/11/20 05:58 Metoprolol Tartrate (Lopressor) 12.5 mg BID ORAL 03/10/20 22:00 06/08/20 21:59 03/10/20 22:23 Nateglinide (Starlix) 120 mg DAILY ORAL 03/11/20 09:00 04/10/20 08:59 03/11/20 08:54 Nitroglycerin (Ntg) 0.4 mg Q5M PRN SL Prn Chest Pain 03/10/20 14:30 04/09/20 14:29 Ondansetron HCl (Zofran) 4 mg Q6H PRN IVP Nausea & Vomiting 03/10/20 14:30 04/09/20 14:29 Polyethylene Glycol (Miralax) 17 gm DAILYPRN PRN ORAL Constipation 03/10/20 14:30 04/09/20 14:29 Sodium Chloride 1,000 ml @ 100 mls/hr Q10H IVLG 03/10/20 16:15 04/09/20 16:14 03/11/20 12:58 Tamsulosin HCl (Flomax) 0.4 mg BEDTIME ORAL 03/10/20 21:00 04/09/20 20:59 03/10/20 20:16 Temazepam (Restoril) 15 mg HSPRN PRN ORAL Insomnia 03/10/20 14:30 03/17/20 14:29 Vancomycin HCl (Vanco pharmacy to dose) 1 ea DAILY PRN MISC PER RX PROTOCOL 03/10/20 16:15 04/09/20 16:14 Vancomycin/Sodium Chloride 275 ml @ 183.333 mls/hr Q24H IVPB 03/10/20 20:00 03/15/20 19:59 03/10/20 20:16 Assessment/Plan Problems: (1) NSTEMI (non-ST elevated myocardial infarction) (2) Anemia (3) UTI (urinary tract infection) (4) Bladder cancer (5) Chronic cerebrovascular accident (CVA) (6) Alzheimer's dementia (7) HTN (hypertension) (8) Diabetes mellitus Assessment/Plan still has hematuria continue DAMARIS monitoring prbc prn anemia w/u continue iv fluids miller culture IV abx, vanco and cefepime sliding scale symptomatic treatment cardio to see echo cardiogram ID consult appreciated Og Hinkle MD Mar 11, 2020 14:54
[2020-03-11 16:00] VITALS: BP 120/59
--- NOTE | 2020-03-11 16:59 | Internal Med Progress Note ---
Subjective Date of Service: Mar 11, 2020 Physician Name BrittaniJean-Claude Attending Physician Jaziel Lowe MD Current Medications Medications (Trade) Dose Ordered Sig/Levi Route PRN Reason Start Time Stop Time Status Last Admin Dose Admin Acetaminophen (Tylenol) 650 mg Q4H PRN ORAL fever (T>100.5F) 03/10/20 14:30 04/09/20 14:29 Albuterol/ Ipratropium (Albuterol/ Ipratropium) 3 ml Q4H PRN HHN Shortness of Breath 03/10/20 14:30 03/15/20 14:29 Aspirin (Ecotrin) 81 mg DAILY ORAL 03/11/20 12:45 04/25/20 12:44 Atorvastatin Calcium (Lipitor) 20 mg BEDTIME ORAL 03/11/20 21:00 06/09/20 20:59 Cefepime HCl 2 gm/ Dextrose 110 ml @ 220 mls/hr Q24H IV 03/10/20 21:00 03/17/20 20:59 03/10/20 22:25 Dextrose (Dextrose 50%) 25 ml Q30MIN PRN IV Hypoglycemia 03/10/20 14:30 06/08/20 14:29 Dextrose (Dextrose 50%) 50 ml Q30M PRN IV Hypoglycemia 03/10/20 14:30 06/08/20 14:29 Finasteride (Proscar) 5 mg DAILY ORAL 03/11/20 09:00 06/09/20 08:59 03/11/20 08:53 Insulin Aspart (NovoLOG) BEFORE MEALS AND HS SUBQ 03/10/20 17:00 06/08/20 16:59 03/11/20 05:58 Metoprolol Tartrate (Lopressor) 12.5 mg BID ORAL 03/10/20 22:00 06/08/20 21:59 03/10/20 22:23 Nateglinide (Starlix) 120 mg DAILY ORAL 03/11/20 09:00 04/10/20 08:59 03/11/20 08:54 Nitroglycerin (Ntg) 0.4 mg Q5M PRN SL Prn Chest Pain 03/10/20 14:30 04/09/20 14:29 Ondansetron HCl (Zofran) 4 mg Q6H PRN IVP Nausea & Vomiting 03/10/20 14:30 04/09/20 14:29 Polyethylene Glycol (Miralax) 17 gm DAILYPRN PRN ORAL Constipation 03/10/20 14:30 04/09/20 14:29 Sodium Chloride 1,000 ml @ 100 mls/hr Q10H IVLG 03/10/20 16:15 04/09/20 16:14 03/11/20 12:58 Tamsulosin HCl (Flomax) 0.4 mg BEDTIME ORAL 03/10/20 21:00 04/09/20 20:59 03/10/20 20:16 Temazepam (Restoril) 15 mg HSPRN PRN ORAL Insomnia 03/10/20 14:30 03/17/20 14:29 Vancomycin HCl (Vanco pharmacy to dose) 1 ea DAILY PRN MISC PER RX PROTOCOL 03/10/20 16:15 04/09/20 16:14 Vancomycin/Sodium Chloride 275 ml @ 183.333 mls/hr Q24H IVPB 03/10/20 20:00 03/15/20 19:59 03/10/20 20:16 Allergies: Coded Allergies: No Known Allergies (Unverified , 04/09/16) ROS Limited/Unobtainable: No Constitutional: Reports: no symptoms HEENT: Reports: no symptoms Cardiovascular: Reports: chest pain Respiratory: Reports: no symptoms Gastrointestinal/Abdominal: Reports: no symptoms Genitourinary: Reports: no symptoms 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: Reports: no symptoms Subjective 84 YO M with a history of bladder cancer admitted with chest pain. Cover for Int Uriel-DR Lowe. Step Down Unit Objective Last Vital Signs Date Time Temp Pulse Resp B/P (MAP) Pulse Ox O2 Delivery O2 Flow Rate FiO2 03/11/20 16:00 Nasal Cannula 2.0 03/11/20 16:00 98.1 73 20 120/59 (79) 100 03/10/20 19:05 28 Laboratory Tests Test 03/10/20 17:29 03/10/20 18:30 03/10/20 20:16 03/10/20 22:56 POC Whole Blood Glucose 192 MG/DL (74-106) H 133 MG/DL (74-106) H Urine Color Red Urine Appearance Cloudy Urine pH 7 (4.5-8.0) Urine Specific [place] 1.010 (1.005-1.035) Urine Protein 4+ (NEGATIVE) H Urine Glucose (UA) Negative (NEGATIVE) Urine Ketones Negative (NEGATIVE) Urine Blood 5+ (NEGATIVE) H Urine Nitrite Negative (NEGATIVE) Urine Bilirubin Negative (NEGATIVE) Urine Urobilinogen Normal MG/DL (0.0-1.0) Urine Leukocyte Esterase 3+ (NEGATIVE) H Urine RBC Tntc /HPF (0 - 0) H Urine WBC 20-30 /HPF (0 - 0) H Urine Squamous Epithelial Cells Few /LPF (NONE/OCC) Urine Bacteria Few /HPF (NONE) Urine Eosinophils None seen (NONE SEEN) Urine Osmolality 398 mOsm/kg (429-449) L Urine Random Sodium 84 mmol/L (20-110) Troponin I 9.889 ng/mL (0.000-0.056) Test 03/11/20 01:00 03/11/20 02:41 03/11/20 05:53 03/11/20 09:30 Stool Occult Blood Negative (NEGATIVE) White Blood Count 28.4 K/UL (4.8-10.8) *H Red Blood Count 3.26 M/UL (4.70-6.10) L Hemoglobin 8.3 G/DL (14.2-18.0) L Hematocrit 26.0 % (42.0-52.0) L Mean Corpuscular Volume 80 FL (80-99) Mean Corpuscular Hemoglobin 25.3 PG (27.0-31.0) L Mean Corpuscular Hemoglobin Concent 31.8 G/DL (32.0-36.0) L Red Cell Distribution Width 15.3 % (11.6-14.8) H Platelet Count 267 K/UL (150-450) Mean Platelet Volume 5.3 FL (6.5-10.1) L Neutrophils (%) (Auto) % (45.0-75.0) Lymphocytes (%) (Auto) % (20.0-45.0) Monocytes (%) (Auto) % (1.0-10.0) Eosinophils (%) (Auto) % (0.0-3.0) Basophils (%) (Auto) % (0.0-2.0) Differential Total Cells Counted 100 Neutrophils % (Manual) 92 % (45-75) H Lymphocytes % (Manual) 4 % (20-45) L Monocytes % (Manual) 4 % (1-10) Eosinophils % (Manual) 0 % (0-3) Basophils % (Manual) 0 % (0-2) Band Neutrophils 0 % (0-8) Platelet Estimate Adequate Platelet Morphology Normal Hypochromasia 2+ Anisocytosis 1+ Erythrocyte Sedimentation Rate 123 MM/HR (0-20) H Sodium Level 138 MMOL/L (136-145) Potassium Level 4.6 MMOL/L (3.5-5.1) Chloride Level 105 MMOL/L (98-107) Carbon Dioxide Level 18 MMOL/L (21-32) L Anion Gap 15 mmol/L (5-15) Blood Urea Nitrogen 30 mg/dL (7-18) H Creatinine 1.3 MG/DL (0.55-1.30) Estimat Glomerular Filtration Rate > 60 mL/min (>60) Glucose Level 106 MG/DL (74-106) # Calcium Level 8.6 MG/DL (8.5-10.1) Phosphorus Level 2.9 MG/DL (2.5-4.9) Magnesium Level 1.7 MG/DL (1.8-2.4) L Total Bilirubin 1.3 MG/DL (0.2-1.0) H Direct Bilirubin 0.4 MG/DL (0.0-0.3) H Aspartate Amino Transf (AST/SGOT) 44 U/L (15-37) H Alanine Aminotransferase (ALT/SGPT) 19 U/L (12-78) Alkaline Phosphatase 80 U/L (46-116) Troponin I 9.326 ng/mL (0.000-0.056) 7.648 ng/mL (0.000-0.056) C-Reactive Protein, Quantitative 11.4 mg/dL (0.00-0.90) H Total Protein 6.3 G/DL (6.4-8.2) L Albumin 2.2 G/DL (3.4-5.0) L Globulin 4.1 g/dL Albumin/Globulin Ratio 0.5 (1.0-2.7) L Triglycerides Level 54 MG/DL (30-150) Cholesterol Level 90 MG/DL (< 200) LDL Cholesterol 57 mg/dL (<100) HDL Cholesterol 28 MG/DL (40-60) L Cholesterol/HDL Ratio 3.2 (3.3-4.4) L POC Whole Blood Glucose 118 MG/DL (74-106) H Microbiology Date/Time Source Procedure Growth Status 03/10/20 18:30 Nasopharynx SARS-CoV-2 RdRp Gene Assay - Final Complete 03/10/20 18:30 Urine,Clean Catch Urine Culture - Preliminary NO GROWTH Resulted 03/10/20 13:20 Urine,Clean Catch Urine Culture - Preliminary NO GROWTH Resulted Intake and Output 03/10/20 03/11/20 19:00 07:00 Intake Total 200 ml 1007.7 ml Output Total 1000 ml 1100 ml Balance -800 ml -92.3 ml Intake Oral 200 ml 100 ml IV Total 907.7 ml Output Urine Total 1000 ml 1100 ml # Bowel Movements 3 2 Objective PHYSICAL EXAMINATION: GENERAL: The patient is a well-developed and well-nourished male, in no apparent distress. HEENT: Eyes, pupils are equal and responsive to light and accommodation. Extraocular movements are intact. NECK: Supple without lymphadenopathy. CHEST: Lungs are clear to auscultation bilaterally without wheezes or rales. CARDIOVASCULAR: Regular rhythm and rate. S1, S2 are normal without murmurs, rubs, or gallops. ABDOMEN: Soft, nontender, and nondistended. Positive bowel sounds. No evidence of hepatosplenomegaly. Currently, no rebound or guarding noted. EXTREMITIES: Negative for clubbing, cyanosis, or edema. RECTAL/GENITAL: Not performed. NEUROLOGIC: Cranial nerves II through XII are grossly intact without focal deficits. Motor strength is 5/5 bilaterally. Deep tendon reflexes are 2+ plantar. Assessment/Plan Assessment/Plan ASSESSMENT: This is an 84-year-old male. 1. Chest pain. 2. Elevated troponin level. 3. Bladder cancer. 4. Gastritis. 5. Hypertension. 6. Diabetes type 2. 7. Atrioventricular conduction defect. 8. Alzheimer's dementia. 9. Cerebrovascular disease. 10. Right hemiplegia. 11. Pacemaker in situ. TREATMENT: 1. Chest pain/elevated troponin. A Cardiology consultation has been obtained with Dr. Nj Valenzuela. Differential includes acute coronary syndrome versus congestive heart failure. We will follow recommendations of Cardiology. 2. Bladder cancer. The patient is followed as an outpatient by Dr. Macho Allen. The patient is status post transurethral resection of bladder tumor x2. We will follow recommendations of Urology. 3. Gastritis. Continue Protonix as above. 4. Hypertension. 5. Diabetes type 2. A NovoLog sliding scale has been instituted. 6. Atrioventricular conduction defect. The patient is status post pacemaker implantation. 7. Alzheimer's dementia. 8. Cerebrovascular disease, status post cerebrovascular accident. 9. Right hemiplegia. Jean-Claude Peter MD Mar 11, 2020 16:59
--- NOTE | 2020-03-11 18:25 | NUR ---
NURSE NOTES: Called Dr. Payne result of latest Ekg.
--- NOTE | 2020-03-11 19:08 | NUR ---
HAND-OFF: Report given to Rosina RN. Pt. remain stable.
--- NOTE | 2020-03-11 19:10 | NUR ---
NURSE NOTES: Report received from DONELL Hammonds. upon assessment pt. is a/o x3, able to make needs known. no respiratory or cardiac distress noted. pt. on 2L n/c saturating at 100%. 5-lead ekg shows a/v pacing with pacemaker noted on left chest. pt. right forearm and left forearm IV lines are patent. patient vitals WNL. afebrile. hernandez catheter draining well with hematuria noted. MD aware. all needs met and snacks/fluids offered as tolerated. skin intact. bed placed in lowest and locked position. call light within reach. bed alarm on. will continue to monitor.
[2020-03-11 20:00] VITALS: BP 100/66
[2020-03-11] MEDS: Vancomycin 1.25gm/NS Premix IVPB SCH (20:00)
[2020-03-11] MEDS: Tamsulosin 0.4mg cap ORAL SCH (21:47)
[2020-03-11] MEDS: Cefepime HCl 2 GM in D5W 110 ML IV SCH (21:47)
[2020-03-11] MEDS: Atorvastatin 20mg tab ORAL SCH (21:48)
[2020-03-12] VITALS: BP 101/58
--- NOTE | 2020-03-12 | NUR ---
NURSE NOTES: No distress noted. Patient vitals and EKG stable. OBS stool collected and sent to lab yesterday at 0100. Results negative for OBS. made aware of new OBS collection per orders. Will continue to monitor.
[2020-03-12 04:00] VITALS: BP 105/66
--- NOTE | 2020-03-12 04:12 | NUR ---
NURSE NOTES: EKG initiated as ordered. VRE/MRSA specimens collected and sent to lab. OBS Negative 03/11/2020.
--- NOTE | 2020-03-12 05:30 | NUR ---
NURSE NOTES: Offered pt. juice for BS glucose of 95. Pt. desaturates with 3L nasal canula upon drinking. Will continue to monitor and endorse 1:1 feeding.
[2020-03-12 05:59] LABS: HEMATOCRIT 26.1 % (42.0-52.0); HEMOGLOBIN 8.3 G/DL (14.2-18.0); MEAN CORPUSCULAR VOLUME 80 FL (80-99); PLATELET COUNT 254 K/UL (150-450); RED BLOOD COUNT 3.24 M/UL (4.70-6.10); RED CELL DISTRIBUTION WIDTH 15.6 % (11.6-14.8)
[2020-03-12 06:11] LABS: INR 1.1 (0.9-1.1)
[2020-03-12] MEDS: NovoLOG Insulin Flexpen SUBQ SCH ×4 (06:30→21:21)
[2020-03-12 06:37] LABS: ALANINE AMINOTRANSFERASE 23 U/L (12-78); ALBUMIN 2.1 G/DL (3.4-5.0); ALBUMIN/GLOBULIN RATIO 0.4 (1.0-2.7); ALKALINE PHOSPHATASE 77 U/L (46-116); ANION GAP 8 mmol/L (5-15); ASPARTATE AMINO TRANSFERASE 28 U/L (15-37); BILIRUBIN,TOTAL 0.8 MG/DL (0.2-1.0); BLOOD UREA NITROGEN 19 mg/dL (7-18); CALCIUM 8.8 MG/DL (8.5-10.1); CARBON DIOXIDE 22 MMOL/L (21-32); CHLORIDE 105 MMOL/L (98-107); CREATININE 1.2 MG/DL (0.55-1.30); PHOSPHORUS 2.6 MG/DL (2.5-4.9); POTASSIUM 3.9 MMOL/L (3.5-5.1); SODIUM 135 MMOL/L (136-145)
--- NOTE | 2020-03-12 07:40 | NUR ---
HAND-OFF: Report given to DONELL Byrne. endorsed plan of care. pt in stable condition.
[2020-03-12 08:00] VITALS: BP 113/67
--- NOTE | 2020-03-12 08:00 | NUR ---
NURSE NOTES: Received report from DONELL Mark. Patient in bed resting, no active s/s cardiac, respiratory distress noticed at this time. Patient on 2L oxygen via [place]. Patient AOx2-3, A-paced with HR 66. IV on right FA 20G, left FA 22g, asymptomatic, patent, intact, IVF running as prescribed rate @100ml/h. Robertson Catheter draining well to gravity at this time. Bed in lowest position, side rails upx3, call light within reach, bed alarm on. Will continue to monitor.
[2020-03-12] MEDS: Metoprolol Tartrate 12.5mg TAB ORAL SCH ×2 (08:29→17:27)
[2020-03-12] MEDS: Aspirin EC 81mg tab ORAL SCH (08:53)
--- NOTE | 2020-03-12 11:30 | Pulmonology Progress Note ---
Subjective ROS Limited/Unobtainable: No Interval Events: doing better Allergies: Coded Allergies: No Known Allergies (Unverified , 04/09/16) Objective Last 24 Hour Vital Signs Date Time Temp Pulse Resp B/P (MAP) Pulse Ox O2 Delivery O2 Flow Rate FiO2 03/12/20 08:29 77 113/67 03/12/20 08:00 79 03/12/20 08:00 Nasal Cannula 2.0 03/12/20 08:00 97.7 77 18 113/67 (82) 99 03/12/20 07:00 99 Nasal Cannula 2.0 28 03/12/20 04:00 66 03/12/20 04:00 97.9 70 16 105/66 (79) 100 03/12/20 04:00 Nasal Cannula 2.0 03/12/20 00:00 67 03/12/20 00:00 Nasal Cannula 2.0 03/12/20 00:00 97.7 60 18 101/58 (72) 100 03/11/20 20:00 69 03/11/20 20:00 97.8 84 16 100/66 (77) 100 03/11/20 20:00 Nasal Cannula 2.0 03/11/20 19:41 99 Nasal Cannula 2.0 28 03/11/20 18:00 88 120/59 03/11/20 17:02 88 03/11/20 16:00 Nasal Cannula 2.0 03/11/20 16:00 98.1 73 20 120/59 (79) 100 03/11/20 12:25 88 03/11/20 12:00 97.9 70 19 105/59 (74) 100 03/11/20 12:00 Nasal Cannula 2.0 Intake and Output 03/11/20 03/12/20 19:00 07:00 Intake Total 2300 ml 1925 ml Output Total 1700 ml 1400 ml Balance 600 ml 525 ml Intake Oral 1000 ml 700 ml IV Total 1000 ml 1225 ml Blood Product 300 ml Output Urine Total 1700 ml 1400 ml Hemodialysis UF 0 ml # Bowel Movements 2 General Appearance: cachetic HEENT: normocephalic, atraumatic Respiratory: chest wall non-tender, lungs clear, normal breath sounds, no respiratory distress Cardiovascular: normal peripheral pulses, normal rate, regular rhythm Abdomen: normal bowel sounds, soft, non tender, no organomegaly Genitourinary: normal external genitalia Extremities: no clubbing Microbiology Date/Time Source Procedure Growth Status 03/10/20 13:10 Blood Blood Culture - Preliminary NO GROWTH AFTER 24 HOURS Resulted 03/10/20 12:55 Blood Blood Culture - Preliminary NO GROWTH AFTER 24 HOURS Resulted 03/10/20 18:30 Nasopharynx SARS-CoV-2 RdRp Gene Assay - Final Complete 03/10/20 18:30 Urine,Clean Catch Urine Culture - Preliminary Gram Negative Bacillus 1 Resulted 03/10/20 13:20 Urine,Clean Catch Urine Culture - Preliminary Resulted 03/11/20 06:05 Rectum Received Laboratory Tests 03/11/20 21:49: POC Whole Blood Glucose 102 03/12/20 03:30: White Blood Count 23.0*H, Red Blood Count 3.24L, Hemoglobin 8.3L, Hematocrit 26.1L, Mean Corpuscular Volume 80, Mean Corpuscular Hemoglobin 25.5L, Mean Corpuscular Hemoglobin Concent 31.7L, Red Cell Distribution Width 15.6H, Platelet Count 254, Mean Platelet Volume 5.8L, Neutrophils (%) (Auto) , Lymphocytes (%) (Auto) , Monocytes (%) (Auto) , Eosinophils (%) (Auto) , Basophils (%) (Auto) , Differential Total Cells Counted 100, Neutrophils % ( Manual) 85H, Lymphocytes % (Manual) 11L, Monocytes % (Manual) 3, Eosinophils % ( Manual) 0, Basophils % (Manual) 1, Band Neutrophils 0, Platelet Estimate Adequate, Platelet Morphology Normal, Hypochromasia 2+, Anisocytosis 1+, Prothrombin Time 11.7H, Prothromb Time International Ratio 1.1, Activated Partial Thromboplast Time 29, Sodium Level 135L, Potassium Level 3.9, Chloride Level 105, Carbon Dioxide Level 22, Anion Gap 8, Blood Urea Nitrogen 19H, Creatinine 1.2, Estimat Glomerular Filtration Rate > 60, Glucose Level 91, Calcium Level 8.8, Phosphorus Level 2.6, Magnesium Level 1.6L, Total Bilirubin 0.8, Aspartate Amino Transf (AST/SGOT) 28, Alanine Aminotransferase (ALT/SGPT) 23, Alkaline Phosphatase 77, Troponin I 4.688H, Total Protein 7.0, Albumin 2.1L , Globulin 4.9, Albumin/Globulin Ratio 0.4L 03/12/20 05:18: POC Whole Blood Glucose 93 03/12/20 11:14: POC Whole Blood Glucose 142H Current Medications Medications (Trade) Dose Ordered Sig/Levi Route PRN Reason Start Time Stop Time Status Last Admin Dose Admin Acetaminophen (Tylenol) 650 mg Q4H PRN ORAL fever (T>100.5F) 03/10/20 14:30 04/09/20 14:29 Albuterol/ Ipratropium (Albuterol/ Ipratropium) 3 ml Q4H PRN HHN Shortness of Breath 03/10/20 14:30 03/15/20 14:29 Aspirin (Ecotrin) 81 mg DAILY ORAL 03/11/20 12:45 04/25/20 12:44 Atorvastatin Calcium (Lipitor) 20 mg BEDTIME ORAL 03/11/20 21:00 06/09/20 20:59 03/11/20 21:48 Cefepime HCl 2 gm/ Dextrose 110 ml @ 220 mls/hr Q24H IV 03/10/20 21:00 03/17/20 20:59 03/11/20 21:47 Dextrose (Dextrose 50%) 25 ml Q30MIN PRN IV Hypoglycemia 03/10/20 14:30 06/08/20 14:29 Dextrose (Dextrose 50%) 50 ml Q30M PRN IV Hypoglycemia 03/10/20 14:30 06/08/20 14:29 Finasteride (Proscar) 5 mg DAILY ORAL 03/11/20 09:00 06/09/20 08:59 03/12/20 08:29 Insulin Aspart (NovoLOG) BEFORE MEALS AND HS SUBQ 03/10/20 17:00 06/08/20 16:59 03/12/20 11:18 Metoprolol Tartrate (Lopressor) 12.5 mg BID ORAL 03/10/20 22:00 06/08/20 21:59 03/12/20 08:29 Nateglinide (Starlix) 120 mg DAILY ORAL 03/11/20 09:00 04/10/20 08:59 03/12/20 08:29 Nitroglycerin (Ntg) 0.4 mg Q5M PRN SL Prn Chest Pain 03/10/20 14:30 04/09/20 14:29 Ondansetron HCl (Zofran) 4 mg Q6H PRN IVP Nausea & Vomiting 03/10/20 14:30 04/09/20 14:29 Polyethylene Glycol (Miralax) 17 gm DAILYPRN PRN ORAL Constipation 03/10/20 14:30 04/09/20 14:29 Sodium Chloride 1,000 ml @ 100 mls/hr Q10H IVLG 03/10/20 16:15 04/09/20 16:14 03/12/20 08:29 Tamsulosin HCl (Flomax) 0.4 mg BEDTIME ORAL 03/10/20 21:00 04/09/20 20:59 03/11/20 21:47 Temazepam (Restoril) 15 mg HSPRN PRN ORAL Insomnia 03/10/20 14:30 03/17/20 14:29 Vancomycin HCl (Vanco pharmacy to dose) 1 ea DAILY PRN MISC PER RX PROTOCOL 03/10/20 16:15 04/09/20 16:14 Vancomycin/Sodium Chloride 275 ml @ 183.333 mls/hr Q24H IVPB 03/10/20 20:00 03/15/20 19:59 03/10/20 20:16 Assessment/Plan Problems: (1) NSTEMI (non-ST elevated myocardial infarction) (2) Anemia (3) UTI (urinary tract infection) (4) Bladder cancer (5) Chronic cerebrovascular accident (CVA) (6) Alzheimer's dementia (7) HTN (hypertension) (8) Diabetes mellitus Assessment/Plan less hematuria, continue DAMARIS monitoring prbc prn. h/h stable anemia w/u continue iv fluids miller culture IV abx, vanco and cefepime sliding scale symptomatic treatment cardio to see echo cardiogram ID consult appreciated Og Hinkle MD Mar 12, 2020 11:30
[2020-03-12 12:00] VITALS: BP 103/50
--- NOTE | 2020-03-12 13:51 | Infectious Diseases Prog Note ---
Assessment/Plan 84yo M with bladder cancer who p/w chest pain, found to have elevated troponin and leukocytosis. Afebrile R/o sepsis Leukocytosis, 22--> 28; now improving UTI, UA with tnct WBC, UCx >100k GNR Rapid COVID neg x1 CXR unremarkable, satting well on 2L NC R/o bacteremia 8/2 BCx ordered 8/1 BCx NTD NSTEMI w/ elevated troponin, can also be a cause of reactive leukocytosis Bladder cancer Hematuria Plan: Dc empiric IV Vanco #2 Switch empiric cefepime #2 to Meropenem given hx of ESBL No diarrhea, but if occurs check C.dif F/u UCx (UA w/ pyuria) F/u BCx Trend resp status Trend leukocytosis daily Monitor CBC, CMP D/w RN Thank you for this consult. [facility] will continue to follow. Subjective Allergies: Coded Allergies: No Known Allergies (Unverified , 04/09/16) Objective Last 24 Hour Vital Signs Date Time Temp Pulse Resp B/P (MAP) Pulse Ox O2 Delivery O2 Flow Rate FiO2 03/12/20 12:00 Nasal Cannula 2.0 03/12/20 12:00 98.2 62 16 103/50 (67) 100 03/12/20 12:00 69 03/12/20 08:29 77 113/67 03/12/20 08:00 79 03/12/20 08:00 Nasal Cannula 2.0 03/12/20 08:00 97.7 77 18 113/67 (82) 99 03/12/20 07:00 99 Nasal Cannula 2.0 28 03/12/20 04:00 66 03/12/20 04:00 97.9 70 16 105/66 (79) 100 03/12/20 04:00 Nasal Cannula 2.0 03/12/20 00:00 67 03/12/20 00:00 Nasal Cannula 2.0 03/12/20 00:00 97.7 60 18 101/58 (72) 100 03/11/20 20:00 69 03/11/20 20:00 97.8 84 16 100/66 (77) 100 03/11/20 20:00 Nasal Cannula 2.0 03/11/20 19:41 99 Nasal Cannula 2.0 28 03/11/20 18:00 88 120/59 03/11/20 17:02 88 03/11/20 16:00 Nasal Cannula 2.0 03/11/20 16:00 98.1 73 20 120/59 (79) 100 Height (Feet): 5 Height (Inches): 9.00 Weight (Pounds): 190 Gen: Older man, laying in bed, NAD HEENT: OP clear, MM dry, no LAD CV: RRR Pulm: CTAB anteriorly Abd: Soft, thin, NTND Ext: No c/c/e Skin: No notable skin lesions, rashes or ulcers Microbiology Date/Time Source Procedure Growth Status 03/10/20 13:10 Blood Blood Culture - Preliminary NO GROWTH AFTER 24 HOURS Resulted 03/10/20 12:55 Blood Blood Culture - Preliminary NO GROWTH AFTER 24 HOURS Resulted 03/10/20 18:30 Nasopharynx SARS-CoV-2 RdRp Gene Assay - Final Complete 03/10/20 18:30 Urine,Clean Catch Urine Culture - Preliminary Gram Negative Bacillus 1 Resulted 03/10/20 13:20 Urine,Clean Catch Urine Culture - Preliminary Resulted 03/11/20 06:05 Rectum Received Laboratory Tests Test 03/11/20 21:49 03/12/20 03:30 03/12/20 05:18 03/12/20 11:14 POC Whole Blood Glucose 102 MG/DL (74-106) 93 MG/DL (74-106) 142 MG/DL (74-106) H White Blood Count 23.0 K/UL (4.8-10.8) *H Red Blood Count 3.24 M/UL (4.70-6.10) L Hemoglobin 8.3 G/DL (14.2-18.0) L Hematocrit 26.1 % (42.0-52.0) L Mean Corpuscular Volume 80 FL (80-99) Mean Corpuscular Hemoglobin 25.5 PG (27.0-31.0) L Mean Corpuscular Hemoglobin Concent 31.7 G/DL (32.0-36.0) L Red Cell Distribution Width 15.6 % (11.6-14.8) H Platelet Count 254 K/UL (150-450) Mean Platelet Volume 5.8 FL (6.5-10.1) L Neutrophils (%) (Auto) % (45.0-75.0) Lymphocytes (%) (Auto) % (20.0-45.0) Monocytes (%) (Auto) % (1.0-10.0) Eosinophils (%) (Auto) % (0.0-3.0) Basophils (%) (Auto) % (0.0-2.0) Differential Total Cells Counted 100 Neutrophils % (Manual) 85 % (45-75) H Lymphocytes % (Manual) 11 % (20-45) L Monocytes % (Manual) 3 % (1-10) Eosinophils % (Manual) 0 % (0-3) Basophils % (Manual) 1 % (0-2) Band Neutrophils 0 % (0-8) Platelet Estimate Adequate Platelet Morphology Normal Hypochromasia 2+ Anisocytosis 1+ Prothrombin Time 11.7 SEC (9.30-11.50) H Prothromb Time International Ratio 1.1 (0.9-1.1) Activated Partial Thromboplast Time 29 SEC (23-33) Sodium Level 135 MMOL/L (136-145) L Potassium Level 3.9 MMOL/L (3.5-5.1) Chloride Level 105 MMOL/L (98-107) Carbon Dioxide Level 22 MMOL/L (21-32) Anion Gap 8 mmol/L (5-15) Blood Urea Nitrogen 19 mg/dL (7-18) H Creatinine 1.2 MG/DL (0.55-1.30) Estimat Glomerular Filtration Rate > 60 mL/min (>60) Glucose Level 91 MG/DL (74-106) Calcium Level 8.8 MG/DL (8.5-10.1) Phosphorus Level 2.6 MG/DL (2.5-4.9) Magnesium Level 1.6 MG/DL (1.8-2.4) L Total Bilirubin 0.8 MG/DL (0.2-1.0) Aspartate Amino Transf (AST/SGOT) 28 U/L (15-37) Alanine Aminotransferase (ALT/SGPT) 23 U/L (12-78) Alkaline Phosphatase 77 U/L (46-116) Troponin I 4.688 ng/mL (0.000-0.056) Total Protein 7.0 G/DL (6.4-8.2) Albumin 2.1 G/DL (3.4-5.0) L Globulin 4.9 g/dL Albumin/Globulin Ratio 0.4 (1.0-2.7) L Current Medications Medications (Trade) Dose Ordered Sig/Levi Route PRN Reason Start Time Stop Time Status Last Admin Dose Admin Acetaminophen (Tylenol) 650 mg Q4H PRN ORAL fever (T>100.5F) 03/10/20 14:30 04/09/20 14:29 Albuterol/ Ipratropium (Albuterol/ Ipratropium) 3 ml Q4H PRN HHN Shortness of Breath 03/10/20 14:30 03/15/20 14:29 Aspirin (Ecotrin) 81 mg DAILY ORAL 03/11/20 12:45 04/25/20 12:44 Atorvastatin Calcium (Lipitor) 20 mg BEDTIME ORAL 03/11/20 21:00 06/09/20 20:59 03/11/20 21:48 Cefepime HCl 2 gm/ Dextrose 110 ml @ 220 mls/hr Q24H IV 03/10/20 21:00 03/17/20 20:59 03/11/20 21:47 Dextrose (Dextrose 50%) 25 ml Q30MIN PRN IV Hypoglycemia 03/10/20 14:30 06/08/20 14:29 Dextrose (Dextrose 50%) 50 ml Q30M PRN IV Hypoglycemia 03/10/20 14:30 06/08/20 14:29 Finasteride (Proscar) 5 mg DAILY ORAL 03/11/20 09:00 06/09/20 08:59 03/12/20 08:29 Insulin Aspart (NovoLOG) BEFORE MEALS AND HS SUBQ 03/10/20 17:00 06/08/20 16:59 03/12/20 11:18 Metoprolol Tartrate (Lopressor) 12.5 mg BID ORAL 03/10/20 22:00 06/08/20 21:59 03/12/20 08:29 Nateglinide (Starlix) 120 mg DAILY ORAL 03/11/20 09:00 04/10/20 08:59 03/12/20 08:29 Nitroglycerin (Ntg) 0.4 mg Q5M PRN SL Prn Chest Pain 03/10/20 14:30 04/09/20 14:29 Ondansetron HCl (Zofran) 4 mg Q6H PRN IVP Nausea & Vomiting 03/10/20 14:30 04/09/20 14:29 Polyethylene Glycol (Miralax) 17 gm DAILYPRN PRN ORAL Constipation 03/10/20 14:30 04/09/20 14:29 Sodium Chloride 1,000 ml @ 100 mls/hr Q10H IVLG 03/10/20 16:15 04/09/20 16:14 03/12/20 08:29 Tamsulosin HCl (Flomax) 0.4 mg BEDTIME ORAL 03/10/20 21:00 04/09/20 20:59 03/11/20 21:47 Temazepam (Restoril) 15 mg HSPRN PRN ORAL Insomnia 03/10/20 14:30 03/17/20 14:29 Vancomycin HCl (Vanco pharmacy to dose) 1 ea DAILY PRN MISC PER RX PROTOCOL 03/10/20 16:15 04/09/20 16:14 Vancomycin/Sodium Chloride 275 ml @ 183.333 mls/hr Q24H IVPB 03/10/20 20:00 03/15/20 19:59 03/10/20 20:16 Tawny Darby M.D. Mar 12, 2020 13:51
[2020-03-12 16:00] VITALS: BP 122/53
[2020-03-12] MEDS: Meropenem 1 GM in NS 55 ML IVPB SCH (16:47)
--- NOTE | 2020-03-12 18:13 | NUR ---
NURSE NOTES: Dr. Valenzuela at the bedside, made aware of troponin level today, per MD no need of further troponin. Per MD transfer patient to tele. Order noted, entered, carried out.
--- NOTE | 2020-03-12 18:24 | NUR ---
NURSE NOTES: Per Dr. Hinkle, no need of Urology on the case at this time due to hematouria getting better at this time.
--- NOTE | 2020-03-12 18:28 | NUR ---
NURSE NOTES: Per Dr. Peter, swallow evaluation. Order noted, entered, carried out.
--- NOTE | 2020-03-12 18:42 | Internal Med Progress Note ---
Subjective Date of Service: Mar 12, 2020 Physician Name Jean-Claude Peter Attending Physician Jaziel Lowe MD Current Medications Medications (Trade) Dose Ordered Sig/Levi Route PRN Reason Start Time Stop Time Status Last Admin Dose Admin Acetaminophen (Tylenol) 650 mg Q4H PRN ORAL fever (T>100.5F) 03/10/20 14:30 04/09/20 14:29 Albuterol/ Ipratropium (Albuterol/ Ipratropium) 3 ml Q4H PRN HHN Shortness of Breath 03/10/20 14:30 03/15/20 14:29 Aspirin (Ecotrin) 81 mg DAILY ORAL 03/11/20 12:45 04/25/20 12:44 Atorvastatin Calcium (Lipitor) 20 mg BEDTIME ORAL 03/11/20 21:00 06/09/20 20:59 03/11/20 21:48 Dextrose (Dextrose 50%) 25 ml Q30MIN PRN IV Hypoglycemia 03/10/20 14:30 06/08/20 14:29 Dextrose (Dextrose 50%) 50 ml Q30M PRN IV Hypoglycemia 03/10/20 14:30 06/08/20 14:29 Finasteride (Proscar) 5 mg DAILY ORAL 03/11/20 09:00 06/09/20 08:59 03/12/20 08:29 Insulin Aspart (NovoLOG) BEFORE MEALS AND HS SUBQ 03/10/20 17:00 06/08/20 16:59 03/12/20 16:48 Meropenem 1 gm/ Sodium Chloride 55 ml @ 110 mls/hr Q12H IVPB 03/12/20 16:00 03/17/20 15:59 03/12/20 16:47 Metoprolol Tartrate (Lopressor) 12.5 mg BID ORAL 03/10/20 22:00 06/08/20 21:59 03/12/20 17:27 Nateglinide (Starlix) 120 mg DAILY ORAL 03/11/20 09:00 04/10/20 08:59 03/12/20 08:29 Nitroglycerin (Ntg) 0.4 mg Q5M PRN SL Prn Chest Pain 03/10/20 14:30 04/09/20 14:29 Ondansetron HCl (Zofran) 4 mg Q6H PRN IVP Nausea & Vomiting 03/10/20 14:30 04/09/20 14:29 Polyethylene Glycol (Miralax) 17 gm DAILYPRN PRN ORAL Constipation 03/10/20 14:30 04/09/20 14:29 Sodium Chloride 1,000 ml @ 100 mls/hr Q10H IVLG 03/10/20 16:15 04/09/20 16:14 03/12/20 17:27 Tamsulosin HCl (Flomax) 0.4 mg BEDTIME ORAL 03/10/20 21:00 04/09/20 20:59 03/11/20 21:47 Temazepam (Restoril) 15 mg HSPRN PRN ORAL Insomnia 03/10/20 14:30 03/17/20 14:29 Allergies: Coded Allergies: No Known Allergies (Unverified , 04/09/16) ROS Limited/Unobtainable: Yes Subjective 84 YO M with a history of bladder cancer admitted with chest pain. Cover for Int Uriel-DR Lowe. Step Down Unit Objective Last Vital Signs Date Time Temp Pulse Resp B/P (MAP) Pulse Ox O2 Delivery O2 Flow Rate FiO2 03/12/20 17:27 73 122/53 03/12/20 16:00 Nasal Cannula 2.0 03/12/20 16:00 98.5 16 100 03/12/20 07:00 28 Laboratory Tests Test 03/11/20 21:49 03/12/20 03:30 03/12/20 05:18 03/12/20 11:14 POC Whole Blood Glucose 102 MG/DL (74-106) 93 MG/DL (74-106) 142 MG/DL (74-106) H White Blood Count 23.0 K/UL (4.8-10.8) *H Red Blood Count 3.24 M/UL (4.70-6.10) L Hemoglobin 8.3 G/DL (14.2-18.0) L Hematocrit 26.1 % (42.0-52.0) L Mean Corpuscular Volume 80 FL (80-99) Mean Corpuscular Hemoglobin 25.5 PG (27.0-31.0) L Mean Corpuscular Hemoglobin Concent 31.7 G/DL (32.0-36.0) L Red Cell Distribution Width 15.6 % (11.6-14.8) H Platelet Count 254 K/UL (150-450) Mean Platelet Volume 5.8 FL (6.5-10.1) L Neutrophils (%) (Auto) % (45.0-75.0) Lymphocytes (%) (Auto) % (20.0-45.0) Monocytes (%) (Auto) % (1.0-10.0) Eosinophils (%) (Auto) % (0.0-3.0) Basophils (%) (Auto) % (0.0-2.0) Differential Total Cells Counted 100 Neutrophils % (Manual) 85 % (45-75) H Lymphocytes % (Manual) 11 % (20-45) L Monocytes % (Manual) 3 % (1-10) Eosinophils % (Manual) 0 % (0-3) Basophils % (Manual) 1 % (0-2) Band Neutrophils 0 % (0-8) Platelet Estimate Adequate Platelet Morphology Normal Hypochromasia 2+ Anisocytosis 1+ Prothrombin Time 11.7 SEC (9.30-11.50) H Prothromb Time International Ratio 1.1 (0.9-1.1) Activated Partial Thromboplast Time 29 SEC (23-33) Sodium Level 135 MMOL/L (136-145) L Potassium Level 3.9 MMOL/L (3.5-5.1) Chloride Level 105 MMOL/L (98-107) Carbon Dioxide Level 22 MMOL/L (21-32) Anion Gap 8 mmol/L (5-15) Blood Urea Nitrogen 19 mg/dL (7-18) H Creatinine 1.2 MG/DL (0.55-1.30) Estimat Glomerular Filtration Rate > 60 mL/min (>60) Glucose Level 91 MG/DL (74-106) Calcium Level 8.8 MG/DL (8.5-10.1) Phosphorus Level 2.6 MG/DL (2.5-4.9) Magnesium Level 1.6 MG/DL (1.8-2.4) L Total Bilirubin 0.8 MG/DL (0.2-1.0) Aspartate Amino Transf (AST/SGOT) 28 U/L (15-37) Alanine Aminotransferase (ALT/SGPT) 23 U/L (12-78) Alkaline Phosphatase 77 U/L (46-116) Troponin I 4.688 ng/mL (0.000-0.056) Total Protein 7.0 G/DL (6.4-8.2) Albumin 2.1 G/DL (3.4-5.0) L Globulin 4.9 g/dL Albumin/Globulin Ratio 0.4 (1.0-2.7) L Test 03/12/20 15:50 03/12/20 16:46 Stool Occult Blood Pending POC Whole Blood Glucose 157 MG/DL (74-106) H Microbiology Date/Time Source Procedure Growth Status 03/10/20 13:10 Blood Blood Culture - Preliminary NO GROWTH AFTER 24 HOURS Resulted 03/10/20 12:55 Blood Blood Culture - Preliminary NO GROWTH AFTER 24 HOURS Resulted 03/10/20 18:30 Nasopharynx SARS-CoV-2 RdRp Gene Assay - Final Complete 03/10/20 18:30 Urine,Clean Catch Urine Culture - Preliminary Gram Negative Bacillus 1 Resulted 03/10/20 13:20 Urine,Clean Catch Urine Culture - Preliminary Resulted 03/11/20 06:05 Rectum Received Intake and Output 03/11/20 03/12/20 19:00 07:00 Intake Total 2300 ml 1925 ml Output Total 1700 ml 1400 ml Balance 600 ml 525 ml Intake Oral 1000 ml 700 ml IV Total 1000 ml 1225 ml Blood Product 300 ml Output Urine Total 1700 ml 1400 ml Hemodialysis UF 0 ml # Bowel Movements 2 Objective PHYSICAL EXAMINATION: GENERAL: The patient is a well-developed and well-nourished male, in no apparent distress. HEENT: Eyes, pupils are equal and responsive to light and accommodation. Extraocular movements are intact. NECK: Supple without lymphadenopathy. CHEST: Lungs are clear to auscultation bilaterally without wheezes or rales. CARDIOVASCULAR: Regular rhythm and rate. S1, S2 are normal without murmurs, rubs, or gallops. ABDOMEN: Soft, nontender, and nondistended. Positive bowel sounds. No evidence of hepatosplenomegaly. Currently, no rebound or guarding noted. EXTREMITIES: Negative for clubbing, cyanosis, or edema. RECTAL/GENITAL: Not performed. NEUROLOGIC: Cranial nerves II through XII are grossly intact without focal deficits. Motor strength is 5/5 bilaterally. Deep tendon reflexes are 2+ plantar. Assessment/Plan Assessment/Plan ASSESSMENT: This is an 84-year-old male. 1. Chest pain. 2. Elevated troponin level. 3. Bladder cancer. 4. Gastritis. 5. Hypertension. 6. Diabetes type 2. 7. Atrioventricular conduction defect. 8. Alzheimer's dementia. 9. Cerebrovascular disease. 10. Right hemiplegia. 11. Pacemaker in situ. 12. Urinary tract infection=gram neg betty TREATMENT: 1. Chest pain/elevated troponin. A Cardiology consultation has been obtained with Dr. Nj Valenzuela. Differential includes acute coronary syndrome versus congestive heart failure. We will follow recommendations of Cardiology. 2. Bladder cancer. The patient is followed as an outpatient by Dr. Macho Allen. The patient is status post transurethral resection of bladder tumor x2. We will follow recommendations of Urology. 3. Gastritis. Continue Protonix as above. 4. Hypertension. 5. Diabetes type 2. A NovoLog sliding scale has been instituted. 6. Atrioventricular conduction defect. The patient is status post pacemaker implantation. 7. Alzheimer's dementia. 8. Cerebrovascular disease, status post cerebrovascular accident. 9. Right hemiplegia. 10. ABX=meropenem per ID=Jean-Claude Mcleod MD Mar 12, 2020 18:42
--- NOTE | 2020-03-12 18:44 | Cardiology Progress Note ---
Assessment/Plan Assessment/Plan 1. Myocardial infarction, possibly late presentation of ST-elevation. 2. Severe anemia.etiology not yet apparent 3. Hematuria. 4. History of bladder tumor status post recent treatment in November. 5. Dementia. 6. Reported history of atrial fibrillation. 7. History of CVA. 8. Leukocytosis no sig afib over nite trop peaked yest now continues on a downward trend wbc sig elevated possible but very unusuall to be related to mi id now following bp seems ok afebrile sinsu apac, v sensed v paced ekg from yest reviewed echo personally reviewed , the inferior wall endocardium is poorly defined but part of the post wall is hypokinetic , ivc dilated , pacing wire noted await gi input stool for ob off anticoagualtion due to anemia will give ecotrin low dose stool ob neg x1 so far stable for transfer to tel Subjective Cardiovascular: Denies: chest pain, lightheadedness, palpitations Respiratory: Denies: shortness of breath Gastrointestinal/Abdominal: Denies: abdominal pain Genitourinary: Denies: burning Objective Last 24 Hour Vital Signs Date Time Temp Pulse Resp B/P (MAP) Pulse Ox O2 Delivery O2 Flow Rate FiO2 03/12/20 17:27 73 122/53 03/12/20 16:00 73 03/12/20 16:00 Nasal Cannula 2.0 03/12/20 16:00 98.5 80 16 122/53 (76) 100 03/12/20 12:00 Nasal Cannula 2.0 03/12/20 12:00 98.2 62 16 103/50 (67) 100 03/12/20 12:00 69 03/12/20 08:29 77 113/67 03/12/20 08:00 79 03/12/20 08:00 Nasal Cannula 2.0 03/12/20 08:00 97.7 77 18 113/67 (82) 99 03/12/20 07:00 99 Nasal Cannula 2.0 28 03/12/20 04:00 66 03/12/20 04:00 97.9 70 16 105/66 (79) 100 03/12/20 04:00 Nasal Cannula 2.0 03/12/20 00:00 67 03/12/20 00:00 Nasal Cannula 2.0 03/12/20 00:00 97.7 60 18 101/58 (72) 100 03/11/20 20:00 69 03/11/20 20:00 97.8 84 16 100/66 (77) 100 03/11/20 20:00 Nasal Cannula 2.0 03/11/20 19:41 99 Nasal Cannula 2.0 28 General Appearance: no apparent distress, alert Neck: supple Cardiovascular: normal rate Respiratory/Chest: lungs clear Abdomen: normal bowel sounds, non tender, soft Extremities: no swelling Intake and Output 03/11/20 03/12/20 19:00 07:00 Intake Total 2300 ml 1925 ml Output Total 1700 ml 1400 ml Balance 600 ml 525 ml Intake Oral 1000 ml 700 ml IV Total 1000 ml 1225 ml Blood Product 300 ml Output Urine Total 1700 ml 1400 ml Hemodialysis UF 0 ml # Bowel Movements 2 Laboratory Tests Test 03/11/20 21:49 03/12/20 03:30 03/12/20 05:18 03/12/20 11:14 POC Whole Blood Glucose 102 MG/DL (74-106) 93 MG/DL (74-106) 142 MG/DL (74-106) H White Blood Count 23.0 K/UL (4.8-10.8) *H Red Blood Count 3.24 M/UL (4.70-6.10) L Hemoglobin 8.3 G/DL (14.2-18.0) L Hematocrit 26.1 % (42.0-52.0) L Mean Corpuscular Volume 80 FL (80-99) Mean Corpuscular Hemoglobin 25.5 PG (27.0-31.0) L Mean Corpuscular Hemoglobin Concent 31.7 G/DL (32.0-36.0) L Red Cell Distribution Width 15.6 % (11.6-14.8) H Platelet Count 254 K/UL (150-450) Mean Platelet Volume 5.8 FL (6.5-10.1) L Neutrophils (%) (Auto) % (45.0-75.0) Lymphocytes (%) (Auto) % (20.0-45.0) Monocytes (%) (Auto) % (1.0-10.0) Eosinophils (%) (Auto) % (0.0-3.0) Basophils (%) (Auto) % (0.0-2.0) Differential Total Cells Counted 100 Neutrophils % (Manual) 85 % (45-75) H Lymphocytes % (Manual) 11 % (20-45) L Monocytes % (Manual) 3 % (1-10) Eosinophils % (Manual) 0 % (0-3) Basophils % (Manual) 1 % (0-2) Band Neutrophils 0 % (0-8) Platelet Estimate Adequate Platelet Morphology Normal Hypochromasia 2+ Anisocytosis 1+ Prothrombin Time 11.7 SEC (9.30-11.50) H Prothromb Time International Ratio 1.1 (0.9-1.1) Activated Partial Thromboplast Time 29 SEC (23-33) Sodium Level 135 MMOL/L (136-145) L Potassium Level 3.9 MMOL/L (3.5-5.1) Chloride Level 105 MMOL/L (98-107) Carbon Dioxide Level 22 MMOL/L (21-32) Anion Gap 8 mmol/L (5-15) Blood Urea Nitrogen 19 mg/dL (7-18) H Creatinine 1.2 MG/DL (0.55-1.30) Estimat Glomerular Filtration Rate > 60 mL/min (>60) Glucose Level 91 MG/DL (74-106) Calcium Level 8.8 MG/DL (8.5-10.1) Phosphorus Level 2.6 MG/DL (2.5-4.9) Magnesium Level 1.6 MG/DL (1.8-2.4) L Total Bilirubin 0.8 MG/DL (0.2-1.0) Aspartate Amino Transf (AST/SGOT) 28 U/L (15-37) Alanine Aminotransferase (ALT/SGPT) 23 U/L (12-78) Alkaline Phosphatase 77 U/L (46-116) Troponin I 4.688 ng/mL (0.000-0.056) Total Protein 7.0 G/DL (6.4-8.2) Albumin 2.1 G/DL (3.4-5.0) L Globulin 4.9 g/dL Albumin/Globulin Ratio 0.4 (1.0-2.7) L Test 03/12/20 15:50 03/12/20 16:46 Stool Occult Blood Pending POC Whole Blood Glucose 157 MG/DL (74-106) H Microbiology Date/Time Source Procedure Growth Status 03/10/20 13:10 Blood Blood Culture - Preliminary NO GROWTH AFTER 24 HOURS Resulted 03/10/20 12:55 Blood Blood Culture - Preliminary NO GROWTH AFTER 24 HOURS Resulted 03/10/20 18:30 Nasopharynx SARS-CoV-2 RdRp Gene Assay - Final Complete 03/10/20 18:30 Urine,Clean Catch Urine Culture - Preliminary Gram Negative Bacillus 1 Resulted 03/10/20 13:20 Urine,Clean Catch Urine Culture - Preliminary Resulted 03/11/20 06:05 Rectum Received Nj Valenzuela MD Mar 12, 2020 18:44
--- NOTE | 2020-03-12 19:15 | NUR ---
HAND-OFF: Report given to DONELL Michel. Endorsed plan of care.
--- NOTE | 2020-03-12 19:15 | NUR ---
NURSE NOTES: Report received from Chavez Mistry RN. Received pt. in bed a/a/ox1 to name only. Respirations even and unlabored. In no apparent sob or distress noted. Denies pain or discomfort. Right sided weakness noted secondary to CVA. Saturating 100% on 2L/NC. Showing A paced on shelter supervisor. Right and left forearm HL and IV line patent w/o signs of infiltration. NS infusing well 100cc/hr to rt forearm. F/c draining well w/dark red (hematuria) noted. VSS. Afebrile. Bed in lowest position, locked w/side rails up X2. Bed alarm engaged. Call light w/in reach. Will continue POC.
[2020-03-12 20:00] VITALS: BP 102/62
[2020-03-12] MEDS: Tamsulosin 0.4mg cap ORAL SCH (21:18)
[2020-03-12] MEDS: Atorvastatin 20mg tab ORAL SCH (21:19)
[2020-03-13] VITALS (7 sets, daily range): BP systolic 107–165; BP diastolic 55–74
--- NOTE | 2020-03-13 | NUR ---
NURSE NOTES: Condition unchanged. Sleeping. Easily awakened to sound. Respirations even and unlabored. VSS. Afebrile. No sob or distress noted. Remain A-paced on alarm security or surveillance monitor. Will continue POC.
[2020-03-13] MEDS: Meropenem 1 GM in NS 55 ML IVPB SCH ×2 (03:08→17:09)
--- NOTE | 2020-03-13 04:25 | NUR ---
NURSE NOTES: Transferred pt to , rm# [id number] Report given to receiving nurse DONELL Viveros
[2020-03-13] MEDS ORDERED: Albuterol/Ipratropium 3ml neb HHN PRN (04:45)
[2020-03-13] MEDS ORDERED: Nitroglycerin Subl 0.4mg tab SL PRN (04:45)
[2020-03-13] MEDS ORDERED: Miralax 17gm pkt ORAL PRN (04:45)
--- NOTE | 2020-03-13 04:45 | NUR ---
NURSE NOTES: RECEIVED REPORT FROM DONELL COBIAN. PATIENT TRANSFERRED FROM 236 TO -2 VIA GURNEY WITHOUT INCIDENT. AAOX1, VERBALLY RESPONSIVE AND ABLE TO MAKE NEEDS KNOWN. NO COMPLAINTS OF PAIN OR DISCOMFORT AT THIS TIME. BREATHING IS EVEN AND UNLABORED ON 2LPM VIA NC, NO S/SX OF DISTRESS NOTED. IV SITES ON RFA PATENT, INTACT, ASYMPTOMATIC WITH NS RUNNING AT 100 MLS/HR; IV SITE ON LFA PATENT, INTACT, ASYMPTOMATIC, AND SALINE-LOCKED. SULLIVAN CATHETER DRAINING WELL TO GRAVITY, URINE CLEAR AND BLOOD-TINGED. OPTIFOAM NOTED ON SACRAL AREA AND BILATERAL HEELS. FALL PRECAUTIONS IN PLACE. CONTACT ISOLATION IMPLEMENTED. BED LOCKED AND IN LOWEST POSITION, SIDERAILS UP X 3. CALL LIGHT WITHIN REACH. WILL CONTINUE TO MONITOR FOR ANY CHANGES.
[2020-03-13 04:59] LABS: HEMATOCRIT 22.8 % (42.0-52.0); HEMOGLOBIN 7.3 G/DL (14.2-18.0); MEAN CORPUSCULAR VOLUME 80 FL (80-99); PLATELET COUNT 247 K/UL (150-450); RED BLOOD COUNT 2.86 M/UL (4.70-6.10); RED CELL DISTRIBUTION WIDTH 15.8 % (11.6-14.8)
[2020-03-13 05:20] LABS: WHITE BLOOD COUNT 23.9 K/UL (4.8-10.8)
[2020-03-13 05:49] LABS: ALANINE AMINOTRANSFERASE 18 U/L (12-78); ALBUMIN 1.8 G/DL (3.4-5.0); ALBUMIN/GLOBULIN RATIO 0.4 (1.0-2.7); ALKALINE PHOSPHATASE 76 U/L (46-116); ANION GAP 7 mmol/L (5-15); ASPARTATE AMINO TRANSFERASE 18 U/L (15-37); BILIRUBIN,TOTAL 0.4 MG/DL (0.2-1.0); BLOOD UREA NITROGEN 22 mg/dL (7-18); CALCIUM 8.4 MG/DL (8.5-10.1); CARBON DIOXIDE 22 MMOL/L (21-32); CHLORIDE 108 MMOL/L (98-107); CREATININE 1.2 MG/DL (0.55-1.30); POTASSIUM 4.4 MMOL/L (3.5-5.1); SODIUM 137 MMOL/L (136-145)
--- NOTE | 2020-03-13 05:59 | NUR ---
NURSE NOTES: CONTACTED DR. HERCULES TO INFORM HER ABOUT WBC OF 23.9. AWAITING FOR CALL BACK FOR ANY NEW ORDERS.
[2020-03-13] MEDS: NovoLOG Insulin Flexpen SUBQ SCH ×4 (06:11→21:00)
--- NOTE | 2020-03-13 06:16 | NUR ---
NURSE NOTES: CONTACTED DR. JOHNSON AT [phone] TO INFORM HIM OF H/H OF 7.3/22.8. AWAITING CALL BACK FOR ANY NEW ORDERS.
--- NOTE | 2020-03-13 06:38 | NUR ---
NURSE NOTES: DAMI THIS MORNING 99. OFFERED THE PATIENT JUICE, BUT REFUSED.
--- NOTE | 2020-03-13 07:43 | NUR ---
HAND-OFF: Report given to DONELL HERNANDES. PATIENT IN STABLE CONDITION. PLAN OF CARE ENDORSED.
--- NOTE | 2020-03-13 07:46 | NUR ---
NURSE NOTES: RECEIVED PATIENT AND REPORT FROM TAHIRA MARLEY IN BED, DENIES ANY PAIN AT THIS TIME. POSITIONED PATIENT TO EAT BREAKFAST. NO S/S OF RESPIRATORY DISTRESS OR DISCOMFORT NOTED AT THIS TIME. IV'S ARE INTACT, PATENT, FLUID RUNNING IN THE RFA AND PATIENT TOLERATING WELL. NOTED HGB IS 7.3, MD AWARE,NO NEW ORDER. BED IS IN LOWEST POSITION WITH BEDSIDE RAILS UP X3, BRAKES ENGAGED FOR SAFETY, CALL LIGHT IS WITHIN EASY REACH. WILL CONTINUE WITH THE PLAN OF CARE.
[2020-03-13] MEDS: Aspirin EC 81mg tab ORAL SCH (08:48)
[2020-03-13] MEDS: Metoprolol Tartrate 12.5mg TAB ORAL SCH ×2 (08:49→17:19)
--- NOTE | 2020-03-13 09:11 | NUR ---
CASE MANAGEMENT:REVIEW 03/13/20 SI: NSTEMI. E COLI UTI. LEUKOCYTOSIS. ANEMIA..S/P 2UNITS PRBC'C. H/O BLADDER CANCER 98.0 88 20 107/57 99% ON 2L/NC WBC+23.9 H/H-7.3/22.8 IS: TRANSFUSE IV MEROPENEM Q12 IVF@100/HR : FROM SDU....NOW ON TELEMETRY DCP: FROM [facility]
--- NOTE | 2020-03-13 11:19 | NUR ---
RD ASSESSMENT & RECOMMENDATIONS SEE CARE ACTIVITY FOR COMPLETE ASSESSMENT DAILY ESTIMATED NEEDS: Needs based on DM, ca 70.2g 25-35 kcals/kg 8526-2519 total kcals 1-2 g protein/kg 70-140 g total protein 20-30ml/kcal mL/kg 1732-2932 total fluid mLs NUTRITION DIAGNOSIS: * Swallowing difficulty R/T dysphagia as evidenced by h/o CVA, pt on [facility] soft chopped diet, variable po intake. CURRENT DIET:CCHO MED, ms chopped + Ensure TID PO DIET RECOMMENDATIONS: CCHO MED / texture per SAW EDGE FUSER CIRCULAR ADDITIONAL RECOMMENDATIONS: 1) Calibrated bedscale wt for accurate CBW EMR wt: 190# vs Bed wt: 154# 2) Check lytes daily, replete as needed (Low phos, Mg) 3) Glucerna 1 tetra robinson TID 4) SAW EDGE FUSER CIRCULAR evaluation for appropriate texture and max po intake . .
--- NOTE | 2020-03-13 11:46 | Pulmonology Progress Note ---
Subjective ROS Limited/Unobtainable: Yes Interval Events: doing better Allergies: Coded Allergies: No Known Allergies (Unverified , 04/09/16) Objective Last 24 Hour Vital Signs Date Time Temp Pulse Resp B/P (MAP) Pulse Ox O2 Delivery O2 Flow Rate FiO2 03/13/20 09:52 100 Nasal Cannula 2.0 28 03/13/20 08:49 97 165/55 03/13/20 08:00 98.1 97 20 165/55 (91) 99 03/13/20 08:00 Nasal Cannula 2.0 03/13/20 07:38 75 03/13/20 04:45 Nasal Cannula 2.0 03/13/20 04:45 98.0 88 20 107/57 (74) 99 03/13/20 04:00 98.6 78 20 118/66 (83) 95 03/13/20 04:00 70 03/13/20 00:00 Nasal Cannula 2.0 03/13/20 00:00 98.1 81 21 113/73 (86) 100 03/12/20 23:33 75 03/12/20 21:06 99 Nasal Cannula 2.0 28 03/12/20 20:00 98.4 83 24 102/62 (75) 99 03/12/20 20:00 Nasal Cannula 2.0 03/12/20 20:00 74 03/12/20 17:27 73 122/53 03/12/20 16:00 73 03/12/20 16:00 Nasal Cannula 2.0 03/12/20 16:00 98.5 80 16 122/53 (76) 100 03/12/20 12:00 Nasal Cannula 2.0 03/12/20 12:00 98.2 62 16 103/50 (67) 100 03/12/20 12:00 69 Intake and Output 03/12/20 03/13/20 19:00 07:00 Intake Total 1835 ml 955 ml Output Total 1500 ml 1000 ml Balance 335 ml -45 ml Intake Oral 680 ml IV Total 1155 ml 955 ml Output Urine Total 1500 ml 1000 ml # Bowel Movements 2 4 General Appearance: cachetic HEENT: normocephalic, atraumatic Respiratory: chest wall non-tender, lungs clear, normal breath sounds, no respiratory distress Cardiovascular: normal peripheral pulses, normal rate, regular rhythm Abdomen: normal bowel sounds, soft, non tender, no organomegaly Genitourinary: normal external genitalia Extremities: no clubbing Skin: no rash Neurologic: commuter pilot II-XII grossly normal Microbiology Date/Time Source Procedure Growth Status 03/11/20 09:30 Blood Blood Culture - Preliminary NO GROWTH AFTER 24 HOURS Resulted 03/11/20 09:25 Blood Blood Culture - Preliminary NO GROWTH AFTER 24 HOURS Resulted 03/10/20 13:10 Blood Blood Culture - Preliminary NO GROWTH AFTER 48 HOURS Resulted 03/10/20 12:55 Blood Blood Culture - Preliminary NO GROWTH AFTER 48 HOURS Resulted 03/10/20 18:30 Nasopharynx SARS-CoV-2 RdRp Gene Assay - Final Complete 03/10/20 18:30 Urine,Clean Catch Urine Culture - Final Escherichia Coli - Esbl Complete 03/10/20 13:20 Urine,Clean Catch Urine Culture - Preliminary Gram Negative Bacillus 1 Resulted 03/11/20 06:05 Rectum Received Laboratory Tests 03/12/20 15:50: Stool Occult Blood [Pending] 03/12/20 16:46: POC Whole Blood Glucose 157H 03/12/20 21:11: POC Whole Blood Glucose 184H 03/13/20 03:30: White Blood Count 23.9*H, Red Blood Count 2.86L, Hemoglobin 7.3L, Hematocrit 22.8L, Mean Corpuscular Volume 80, Mean Corpuscular Hemoglobin 25.5L, Mean Corpuscular Hemoglobin Concent 32.0, Red Cell Distribution Width 15.8H, Platelet Count 247, Mean Platelet Volume 6.1L, Neutrophils (%) (Auto) , Lymphocytes (%) (Auto) , Monocytes (%) (Auto) , Eosinophils (%) (Auto) , Basophils (%) (Auto) , Differential Total Cells Counted 100, Neutrophils % ( Manual) 86H, Lymphocytes % (Manual) 7L, Monocytes % (Manual) 7, Eosinophils % ( Manual) 0, Basophils % (Manual) 0, Band Neutrophils 0, Platelet Estimate Adequate, Platelet Morphology Normal, Hypochromasia 1+, Anisocytosis 1+, Erythrocyte Sedimentation Rate 124H, Sodium Level 137, Potassium Level 4.4, Chloride Level 108H, Carbon Dioxide Level 22, Anion Gap 7, Blood Urea Nitrogen 22H, Creatinine 1.2, Estimat Glomerular Filtration Rate > 60, Glucose Level 106 , Calcium Level 8.4L, Phosphorus Level 2.0L, Magnesium Level 1.5L, Total Bilirubin 0.4, Aspartate Amino Transf (AST/SGOT) 18, Alanine Aminotransferase ( ALT/SGPT) 18, Alkaline Phosphatase 76, C-Reactive Protein, Quantitative 9.7H, Total Protein 6.1L, Albumin 1.8L, Globulin 4.3, Albumin/Globulin Ratio 0.4L 03/13/20 05:49: POC Whole Blood Glucose 99 03/13/20 11:16: POC Whole Blood Glucose 174H Current Medications Medications (Trade) Dose Ordered Sig/Levi Route PRN Reason Start Time Stop Time Status Last Admin Dose Admin Acetaminophen (Tylenol) 650 mg Q4H PRN ORAL fever (T>100.5F) 03/13/20 04:45 04/09/20 04:44 Albuterol/ Ipratropium (Albuterol/ Ipratropium) 3 ml Q4H PRN HHN Shortness of Breath 03/13/20 04:45 03/15/20 04:44 Aspirin (Ecotrin) 81 mg DAILY ORAL 03/13/20 09:00 04/25/20 12:44 03/13/20 08:48 Atorvastatin Calcium (Lipitor) 20 mg BEDTIME ORAL 03/13/20 21:00 06/09/20 20:59 Dextrose (Dextrose 50%) 25 ml Q30M PRN IV Hypoglycemia 03/13/20 05:00 06/11/20 04:59 Dextrose (Dextrose 50%) 50 ml Q30M PRN IV Hypoglycemia 03/13/20 05:00 06/08/20 14:29 Finasteride (Proscar) 5 mg DAILY ORAL 03/13/20 09:00 06/09/20 08:59 03/13/20 08:48 Insulin Aspart (NovoLOG) BEFORE MEALS AND HS SUBQ 03/13/20 06:30 06/08/20 16:59 Magnesium Sulfate 100 ml @ 100 mls/hr Q1H IV 03/13/20 12:45 03/13/20 14:44 UNV Meropenem 1 gm/ Sodium Chloride 55 ml @ 110 mls/hr Q12H IVPB 03/13/20 16:00 03/17/20 15:59 Metoprolol Tartrate (Lopressor) 12.5 mg BID ORAL 03/13/20 09:00 06/08/20 21:59 03/13/20 08:49 Nateglinide (Starlix) 120 mg DAILY ORAL 03/13/20 09:00 04/10/20 08:59 03/13/20 08:49 Nitroglycerin (Ntg) 0.4 mg Q5M PRN SL Prn Chest Pain 03/13/20 04:45 04/09/20 14:29 Ondansetron HCl (Zofran) 4 mg Q6H PRN IVP Nausea & Vomiting 03/13/20 04:45 04/09/20 04:44 Polyethylene Glycol (Miralax) 17 gm DAILYPRN PRN ORAL Constipation 03/13/20 04:45 04/09/20 04:44 Sodium Chloride 1,000 ml @ 100 mls/hr Q10H IVLG 03/13/20 04:45 04/09/20 16:14 Sodium Phosphate 30 mm/Sodium Chloride 285 ml @ 47.5 mls/hr ONCE ONCE IV 03/13/20 12:45 03/13/20 18:44 UNV Tamsulosin HCl (Flomax) 0.4 mg BEDTIME ORAL 03/13/20 21:00 04/09/20 20:59 Temazepam (Restoril) 15 mg HSPRN PRN ORAL Insomnia 03/13/20 14:30 03/17/20 14:29 Assessment/Plan Problems: (1) UTI (urinary tract infection) (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
--- NOTE | 2020-03-13 12:20 | NUR ---
PATIENT RECEIVED [address] JOHNSON. PRE-TRANSFUSION V/S ARE T 97.7, HR 71, BP 106/52. 15 MINUTES V/S ARE T 97.7, HR 65, BP 105/59. POST-TRANSFUSION V/S ARE T97.7, HR 79, BP 119/52. PATIENT TOLERATED BLOOD TRANSFUSION WELL, NO S/S OF ADVERSE TRANSFUSION REACTION OBSERVED. PATIENT IS IN STABLE CONDITION. ALL BLOOD TUBINGS RETURNED BACK TO LAB. WILL CONTINUE TO MONITOR.
[2020-03-13] MEDS ORDERED: Sodium Phosphate 30 MM in NS 275 ML IV ONE (12:45)
--- NOTE | 2020-03-13 12:49 | Infectious Diseases Prog Note ---
Assessment/Plan 84yo M with bladder cancer who p/w chest pain, found to have elevated troponin and leukocytosis. Afebrile R/o sepsis Leukocytosis, 22--> 28; now improving UTI, UA with tnct WBC, UCx >100k ESBL Ec.coli Rapid COVID neg x1 CXR unremarkable, satting well on 2L NC R/o bacteremia / BCx NTD 8/ BCx NTD NSTEMI w/ elevated troponin, can also be a cause of reactive leukocytosis Bladder cancer Hematuria Plan: Continue Meropenem #2 for ESBL UTI -03/12 SP IV Vancomycijn #2, Cefepime #2 No diarrhea, but if occurs check C.dif F/u UCx (UA w/ pyuria) F/u BCx Trend resp status Trend leukocytosis daily CXR if wbc remains high will do CT abd/p w/ to eval for abscess Monitor CBC, CMP D/w RN Thank you for this consult. [facility] will continue to follow. Subjective Allergies: Coded Allergies: No Known Allergies (Unverified , 04/09/16) afebrile at 2l NC wbc overall improved stil remains on the 20s Bcx NTD Objective Last 24 Hour Vital Signs Date Time Temp Pulse Resp B/P (MAP) Pulse Ox O2 Delivery O2 Flow Rate FiO2 03/13/20 09:52 100 Nasal Cannula 2.0 28 03/13/20 08:49 97 165/55 03/13/20 08:00 98.1 97 20 165/55 (91) 99 03/13/20 08:00 Nasal Cannula 2.0 03/13/20 07:38 75 03/13/20 04:45 Nasal Cannula 2.0 03/13/20 04:45 98.0 88 20 107/57 (74) 99 03/13/20 04:00 98.6 78 20 118/66 (83) 95 03/13/20 04:00 70 03/13/20 00:00 Nasal Cannula 2.0 03/13/20 00:00 98.1 81 21 113/73 (86) 100 03/12/20 23:33 75 03/12/20 21:06 99 Nasal Cannula 2.0 28 03/12/20 20:00 98.4 83 24 102/62 (75) 99 03/12/20 20:00 Nasal Cannula 2.0 03/12/20 20:00 74 03/12/20 17:27 73 122/53 03/12/20 16:00 73 03/12/20 16:00 Nasal Cannula 2.0 03/12/20 16:00 98.5 80 16 122/53 (76) 100 Height (Feet): 5 Height (Inches): 9.00 Weight (Pounds): 190 Gen: Older man, laying in bed, NAD HEENT: OP clear, MM dry, no LAD CV: RRR Pulm: CTAB anteriorly Abd: Soft, thin, NTND Ext: No c/c/e Skin: No notable skin lesions, rashes or ulcers Microbiology Date/Time Source Procedure Growth Status 03/11/20 09:30 Blood Blood Culture - Preliminary NO GROWTH AFTER 24 HOURS Resulted 03/11/20 09:25 Blood Blood Culture - Preliminary NO GROWTH AFTER 24 HOURS Resulted 03/10/20 13:10 Blood Blood Culture - Preliminary NO GROWTH AFTER 48 HOURS Resulted 03/10/20 12:55 Blood Blood Culture - Preliminary NO GROWTH AFTER 48 HOURS Resulted 03/10/20 18:30 Nasopharynx SARS-CoV-2 RdRp Gene Assay - Final Complete 03/10/20 18:30 Urine,Clean Catch Urine Culture - Final Escherichia Coli - Esbl Complete 03/10/20 13:20 Urine,Clean Catch Urine Culture - Preliminary Gram Negative Bacillus 1 Resulted 03/11/20 06:05 Rectum Received Laboratory Tests Test 03/12/20 15:50 03/12/20 16:46 03/12/20 21:11 03/13/20 03:30 Stool Occult Blood Negative (NEGATIVE) POC Whole Blood Glucose 157 MG/DL (74-106) H 184 MG/DL (74-106) H White Blood Count 23.9 K/UL (4.8-10.8) *H Red Blood Count 2.86 M/UL (4.70-6.10) L Hemoglobin 7.3 G/DL (14.2-18.0) L Hematocrit 22.8 % (42.0-52.0) L Mean Corpuscular Volume 80 FL (80-99) Mean Corpuscular Hemoglobin 25.5 PG (27.0-31.0) L Mean Corpuscular Hemoglobin Concent 32.0 G/DL (32.0-36.0) Red Cell Distribution Width 15.8 % (11.6-14.8) H Platelet Count 247 K/UL (150-450) Mean Platelet Volume 6.1 FL (6.5-10.1) L Neutrophils (%) (Auto) % (45.0-75.0) Lymphocytes (%) (Auto) % (20.0-45.0) Monocytes (%) (Auto) % (1.0-10.0) Eosinophils (%) (Auto) % (0.0-3.0) Basophils (%) (Auto) % (0.0-2.0) Differential Total Cells Counted 100 Neutrophils % (Manual) 86 % (45-75) H Lymphocytes % (Manual) 7 % (20-45) L Monocytes % (Manual) 7 % (1-10) Eosinophils % (Manual) 0 % (0-3) Basophils % (Manual) 0 % (0-2) Band Neutrophils 0 % (0-8) Platelet Estimate Adequate Platelet Morphology Normal Hypochromasia 1+ Anisocytosis 1+ Erythrocyte Sedimentation Rate 124 MM/HR (0-20) H Sodium Level 137 MMOL/L (136-145) Potassium Level 4.4 MMOL/L (3.5-5.1) Chloride Level 108 MMOL/L (98-107) H Carbon Dioxide Level 22 MMOL/L (21-32) Anion Gap 7 mmol/L (5-15) Blood Urea Nitrogen 22 mg/dL (7-18) H Creatinine 1.2 MG/DL (0.55-1.30) Estimat Glomerular Filtration Rate > 60 mL/min (>60) Glucose Level 106 MG/DL (74-106) Calcium Level 8.4 MG/DL (8.5-10.1) L Phosphorus Level 2.0 MG/DL (2.5-4.9) L Magnesium Level 1.5 MG/DL (1.8-2.4) L Total Bilirubin 0.4 MG/DL (0.2-1.0) Aspartate Amino Transf (AST/SGOT) 18 U/L (15-37) Alanine Aminotransferase (ALT/SGPT) 18 U/L (12-78) Alkaline Phosphatase 76 U/L (46-116) C-Reactive Protein, Quantitative 9.7 mg/dL (0.00-0.90) H Total Protein 6.1 G/DL (6.4-8.2) L Albumin 1.8 G/DL (3.4-5.0) L Globulin 4.3 g/dL Albumin/Globulin Ratio 0.4 (1.0-2.7) L Test 03/13/20 05:49 03/13/20 11:16 POC Whole Blood Glucose 99 MG/DL (74-106) 174 MG/DL (74-106) H Current Medications Medications (Trade) Dose Ordered Sig/Levi Route PRN Reason Start Time Stop Time Status Last Admin Dose Admin Acetaminophen (Tylenol) 650 mg Q4H PRN ORAL fever (T>100.5F) 03/13/20 04:45 04/09/20 04:44 Albuterol/ Ipratropium (Albuterol/ Ipratropium) 3 ml Q4H PRN HHN Shortness of Breath 03/13/20 04:45 03/15/20 04:44 Aspirin (Ecotrin) 81 mg DAILY ORAL 03/13/20 09:00 04/25/20 12:44 03/13/20 08:48 Atorvastatin Calcium (Lipitor) 20 mg BEDTIME ORAL 03/13/20 21:00 06/09/20 20:59 Dextrose (Dextrose 50%) 25 ml Q30M PRN IV Hypoglycemia 03/13/20 05:00 06/11/20 04:59 Dextrose (Dextrose 50%) 50 ml Q30M PRN IV Hypoglycemia 03/13/20 05:00 06/08/20 14:29 Finasteride (Proscar) 5 mg DAILY ORAL 03/13/20 09:00 06/09/20 08:59 03/13/20 08:48 Insulin Aspart (NovoLOG) BEFORE MEALS AND HS SUBQ 03/13/20 06:30 06/08/20 16:59 Magnesium Sulfate 100 ml @ 100 mls/hr Q1H IVPB 03/13/20 12:45 03/13/20 14:44 Meropenem 1 gm/ Sodium Chloride 55 ml @ 110 mls/hr Q12H IVPB 03/13/20 16:00 03/17/20 15:59 Metoprolol Tartrate (Lopressor) 12.5 mg BID ORAL 03/13/20 09:00 06/08/20 21:59 03/13/20 08:49 Nateglinide (Starlix) 120 mg DAILY ORAL 03/13/20 09:00 04/10/20 08:59 03/13/20 08:49 Nitroglycerin (Ntg) 0.4 mg Q5M PRN SL Prn Chest Pain 03/13/20 04:45 04/09/20 14:29 Ondansetron HCl (Zofran) 4 mg Q6H PRN IVP Nausea & Vomiting 03/13/20 04:45 04/09/20 04:44 Polyethylene Glycol (Miralax) 17 gm DAILYPRN PRN ORAL Constipation 03/13/20 04:45 04/09/20 04:44 Sodium Chloride 1,000 ml @ 100 mls/hr Q10H IVLG 03/13/20 04:45 04/09/20 16:14 Sodium Phosphate 30 mm/Sodium Chloride 285 ml @ 47.5 mls/hr ONCE ONCE IV 03/13/20 12:45 03/13/20 18:44 Tamsulosin HCl (Flomax) 0.4 mg BEDTIME ORAL 03/13/20 21:00 04/09/20 20:59 Temazepam (Restoril) 15 mg HSPRN PRN ORAL Insomnia 03/13/20 14:30 03/17/20 14:29 Tawny Darby M.D. Mar 13, 2020 12:49
--- NOTE | 2020-03-13 13:56 | NUR ---
SPEECH PATHOLOGY/SWALLOW STATUS: ORDER RECEIVED FROM DR. KINCAID, CHART REVIEWED, PATIENT CLEARED FOR ST INTERVENTION BY DONELL HERNANDES. DYSPHAGIA RISK FACTORS FOR THIS 84 Y.O. MALE INCLUDE: DECREASED MENTATION, S/P CVA, PARKINSONS, PRIOR DX OF DYSPHAGIA INITIAL IMPRESSIONS: PATIENT PRESENTS WITH MILDLY INCREASED ORAL PREP AND OROPHARYNGEAL TRANSIT TIMES. LIPS WEAK WITH TONGUE AND MANDIBULAR TREMOR, HX OF VARIABLE P.O. INTAKE VOCAL QUALITY CLEAR WITH WEAK VOLITIONAL COUGH. GIVEN THIN LIQUIDS VIA SEQUENTIAL SIP/SWALLOWS, NO OVERT S/S OF ASPIRATION BUT ON LAST VIDEO SWALLOW STUDY HIS HIGHEST RISK OF ASPIRATION INVOLVED THIN LIQUIDS. WHEN GIVEN 5ML AMOUNTS OF PUREE VIA SPOON, PATIENT HAD MILD INCREASE IN ORAL PREP BUT SWALLOWED W/O OVERT S/S OF ASPIRATION. WHEN GIVEN CHOPPED SOLIDS FROM TRAY AT BEDSIDE, PATIENT DEMONSTRATED DELAYED/SLOWED MASTICATION WITH SIGNIFICANT RESIDUE REMAINING ON LINGUAL SURFACE POST SWALLOW. THIS CLEARED WITH THIN LIQUID WASH. NO OVERT S/S OF ASPIRATION BUT CERTAINLY RISK FOR ASPIRATION IS PRESENT DUE TO RESIDUE REMAINING ON LINGUAL SURFACE POST SWALLOW. RECOMMENDATIONS: 1. MODIFIED TEXTURE DIET OF CHOPPED/MECHANICAL SOFT WITH NECTAR THICK LIQUIDS. MAKE SURE MEALTIME SUPPLEMENT IS THICKENED ALSO. 2. TOTAL ASSIST WITH MEALS 3. MEALTIME PROTOCOL POSTED AT BEDSIDE TO MINIMIZE RISK OF ASPIRATION 4. CONTINUE USE OF MEALTIME SUPPLEMENTATION TO OFFSET LACK OF CALORIC INTAKE WITH SOLIDS/LIQUIDS 5. CRUSH CRUSHABLE MEDS/PRESENT IN PUREE 6. ST TO FOLLOW FOR DYSPHAGIA MANAGEMENT/TX, DIET TOLERANCE, PATIENT/FAMILY/CAREGIVER EDN. THANK YOU FOR THIS REFERRAL.
--- NOTE | 2020-03-13 16:40 | Internal Med Progress Note ---
Subjective Date of Service: Mar 13, 2020 Physician Name BrittaniJean-Claude Attending Physician Jaziel Lowe MD Current Medications Medications (Trade) Dose Ordered Sig/Levi Route PRN Reason Start Time Stop Time Status Last Admin Dose Admin Acetaminophen (Tylenol) 650 mg Q4H PRN ORAL fever (T>100.5F) 03/13/20 04:45 04/09/20 04:44 Albuterol/ Ipratropium (Albuterol/ Ipratropium) 3 ml Q4H PRN HHN Shortness of Breath 03/13/20 04:45 03/15/20 04:44 Aspirin (Ecotrin) 81 mg DAILY ORAL 03/13/20 09:00 04/25/20 12:44 03/13/20 08:48 Atorvastatin Calcium (Lipitor) 20 mg BEDTIME ORAL 03/13/20 21:00 06/09/20 20:59 Dextrose (Dextrose 50%) 25 ml Q30M PRN IV Hypoglycemia 03/13/20 05:00 06/11/20 04:59 Dextrose (Dextrose 50%) 50 ml Q30M PRN IV Hypoglycemia 03/13/20 05:00 06/08/20 14:29 Finasteride (Proscar) 5 mg DAILY ORAL 03/13/20 09:00 06/09/20 08:59 03/13/20 08:48 Insulin Aspart (NovoLOG) BEFORE MEALS AND HS SUBQ 03/13/20 06:30 06/08/20 16:59 03/13/20 11:30 Meropenem 1 gm/ Sodium Chloride 55 ml @ 110 mls/hr Q12H IVPB 03/13/20 16:00 03/17/20 15:59 Metoprolol Tartrate (Lopressor) 12.5 mg BID ORAL 03/13/20 09:00 06/08/20 21:59 03/13/20 08:49 Nateglinide (Starlix) 120 mg DAILY ORAL 03/13/20 09:00 04/10/20 08:59 03/13/20 08:49 Nitroglycerin (Ntg) 0.4 mg Q5M PRN SL Prn Chest Pain 03/13/20 04:45 04/09/20 14:29 Ondansetron HCl (Zofran) 4 mg Q6H PRN IVP Nausea & Vomiting 03/13/20 04:45 04/09/20 04:44 Polyethylene Glycol (Miralax) 17 gm DAILYPRN PRN ORAL Constipation 03/13/20 04:45 04/09/20 04:44 Sodium Chloride 1,000 ml @ 100 mls/hr Q10H IVLG 03/13/20 04:45 04/09/20 16:14 03/13/20 13:50 Sodium Phosphate 30 mm/Sodium Chloride 285 ml @ 47.5 mls/hr ONCE ONCE IV 03/13/20 12:45 03/13/20 18:44 03/13/20 13:26 Tamsulosin HCl (Flomax) 0.4 mg BEDTIME ORAL 03/13/20 21:00 04/09/20 20:59 Temazepam (Restoril) 15 mg HSPRN PRN ORAL Insomnia 03/13/20 14:30 03/17/20 14:29 Allergies: Coded Allergies: No Known Allergies (Unverified , 04/09/16) ROS Limited/Unobtainable: Yes Subjective 84 YO M with a history of bladder cancer admitted with chest pain. Cover for Int Med-DR Lowe. Tele Objective Last Vital Signs Date Time Temp Pulse Resp B/P (MAP) Pulse Ox O2 Delivery O2 Flow Rate FiO2 03/13/20 16:17 97.7 69 18 115/74 (88) 97 03/13/20 16:17 Nasal Cannula 2.0 03/13/20 09:52 28 Laboratory Tests Test 03/12/20 16:46 03/12/20 21:11 03/13/20 03:30 03/13/20 05:49 POC Whole Blood Glucose 157 MG/DL (74-106) H 184 MG/DL (74-106) H 99 MG/DL (74-106) White Blood Count 23.9 K/UL (4.8-10.8) *H Red Blood Count 2.86 M/UL (4.70-6.10) L Hemoglobin 7.3 G/DL (14.2-18.0) L Hematocrit 22.8 % (42.0-52.0) L Mean Corpuscular Volume 80 FL (80-99) Mean Corpuscular Hemoglobin 25.5 PG (27.0-31.0) L Mean Corpuscular Hemoglobin Concent 32.0 G/DL (32.0-36.0) Red Cell Distribution Width 15.8 % (11.6-14.8) H Platelet Count 247 K/UL (150-450) Mean Platelet Volume 6.1 FL (6.5-10.1) L Neutrophils (%) (Auto) % (45.0-75.0) Lymphocytes (%) (Auto) % (20.0-45.0) Monocytes (%) (Auto) % (1.0-10.0) Eosinophils (%) (Auto) % (0.0-3.0) Basophils (%) (Auto) % (0.0-2.0) Differential Total Cells Counted 100 Neutrophils % (Manual) 86 % (45-75) H Lymphocytes % (Manual) 7 % (20-45) L Monocytes % (Manual) 7 % (1-10) Eosinophils % (Manual) 0 % (0-3) Basophils % (Manual) 0 % (0-2) Band Neutrophils 0 % (0-8) Platelet Estimate Adequate Platelet Morphology Normal Hypochromasia 1+ Anisocytosis 1+ Erythrocyte Sedimentation Rate 124 MM/HR (0-20) H Sodium Level 137 MMOL/L (136-145) Potassium Level 4.4 MMOL/L (3.5-5.1) Chloride Level 108 MMOL/L (98-107) H Carbon Dioxide Level 22 MMOL/L (21-32) Anion Gap 7 mmol/L (5-15) Blood Urea Nitrogen 22 mg/dL (7-18) H Creatinine 1.2 MG/DL (0.55-1.30) Estimat Glomerular Filtration Rate > 60 mL/min (>60) Glucose Level 106 MG/DL (74-106) Calcium Level 8.4 MG/DL (8.5-10.1) L Phosphorus Level 2.0 MG/DL (2.5-4.9) L Magnesium Level 1.5 MG/DL (1.8-2.4) L Total Bilirubin 0.4 MG/DL (0.2-1.0) Aspartate Amino Transf (AST/SGOT) 18 U/L (15-37) Alanine Aminotransferase (ALT/SGPT) 18 U/L (12-78) Alkaline Phosphatase 76 U/L (46-116) C-Reactive Protein, Quantitative 9.7 mg/dL (0.00-0.90) H Total Protein 6.1 G/DL (6.4-8.2) L Albumin 1.8 G/DL (3.4-5.0) L Globulin 4.3 g/dL Albumin/Globulin Ratio 0.4 (1.0-2.7) L Test 03/13/20 11:16 POC Whole Blood Glucose 174 MG/DL (74-106) H Microbiology Date/Time Source Procedure Growth Status 03/11/20 09:30 Blood Blood Culture - Preliminary NO GROWTH AFTER 24 HOURS Resulted 03/11/20 09:25 Blood Blood Culture - Preliminary NO GROWTH AFTER 24 HOURS Resulted 03/10/20 18:30 Nasopharynx SARS-CoV-2 RdRp Gene Assay - Final Complete 03/10/20 18:30 Urine,Clean Catch Urine Culture - Final Escherichia Coli - Esbl Complete 03/11/20 06:05 Rectum Received Intake and Output 03/12/20 03/13/20 19:00 07:00 Intake Total 1835 ml 955 ml Output Total 1500 ml 1000 ml Balance 335 ml -45 ml Intake Oral 680 ml IV Total 1155 ml 955 ml Output Urine Total 1500 ml 1000 ml # Bowel Movements 2 4 Objective PHYSICAL EXAMINATION: GENERAL: The patient is a well-developed and well-nourished male, in no apparent distress. HEENT: Eyes, pupils are equal and responsive to light and accommodation. Extraocular movements are intact. NECK: Supple without lymphadenopathy. CHEST: Lungs are clear to auscultation bilaterally without wheezes or rales. CARDIOVASCULAR: Regular rhythm and rate. S1, S2 are normal without murmurs, rubs, or gallops. ABDOMEN: Soft, nontender, and nondistended. Positive bowel sounds. No evidence of hepatosplenomegaly. Currently, no rebound or guarding noted. EXTREMITIES: Negative for clubbing, cyanosis, or edema. RECTAL/GENITAL: Not performed. NEUROLOGIC: Cranial nerves II through XII are grossly intact without focal deficits. Motor strength is 5/5 bilaterally. Deep tendon reflexes are 2+ plantar. Assessment/Plan Assessment/Plan ASSESSMENT: This is an 84-year-old male. 1. Chest pain. 2. Elevated troponin level. 3. Bladder cancer. 4. Gastritis. 5. Hypertension. 6. Diabetes type 2. 7. Atrioventricular conduction defect. 8. Alzheimer's dementia. 9. Cerebrovascular disease. 10. Right hemiplegia. 11. Pacemaker in situ. 12. Urinary tract infection=ESBL E. Coli TREATMENT: 1. Chest pain/elevated troponin. A Cardiology consultation has been obtained with Dr. Nj Valenzuela. Differential includes acute coronary syndrome versus congestive heart failure. We will follow recommendations of Cardiology. 2. Bladder cancer. The patient is followed as an outpatient by Dr. Macho Allen. The patient is status post transurethral resection of bladder tumor x2. We will follow recommendations of Urology. 3. Gastritis. Continue Protonix as above. 4. Hypertension. 5. Diabetes type 2. A NovoLog sliding scale has been instituted. 6. Atrioventricular conduction defect. The patient is status post pacemaker implantation. 7. Alzheimer's dementia. 8. Cerebrovascular disease, status post cerebrovascular accident. 9. Right hemiplegia. 10. ABX=meropenem per ID=Jean-Claude Mcleod MD Mar 13, 2020 16:40
--- NOTE | 2020-03-13 16:45 | Cardiology Progress Note ---
Assessment/Plan Assessment/Plan 1. Myocardial infarction, possibly late presentation of ST-elevation. 2. Severe anemia.etiology not yet apparent 3. Hematuria. 4. History of bladder tumor status post recent treatment in November. 5. Dementia. 6. Reported history of atrial fibrillation. 7. History of CVA. 8. Leukocytosis no afib over nite wbc sig elevated still possible but very unusual to be related to mi hgb lower tod ay got antoerh prbc unit today id now following bp seems ok afebrile sinus pac, v sensed v paced echo personally reviewed , the inferior wall endocardium is poorly defined but part of the post wall is hypokinetic , ivc dilated , pacing wire noted stool for ob stool ob neg x2 off anticoagualtion due to anemia ecotrin low dose now on tele etiology of anemia he has hemturia but nto seem severe the possibility of hemolysis needs to be considered check ldh Subjective Cardiovascular: Denies: chest pain, lightheadedness, palpitations Respiratory: Denies: shortness of breath Gastrointestinal/Abdominal: Denies: abdominal pain Genitourinary: Reports: other - catheter in poace Objective Last 24 Hour Vital Signs Date Time Temp Pulse Resp B/P (MAP) Pulse Ox O2 Delivery O2 Flow Rate FiO2 03/13/20 16:17 97.7 69 18 115/74 (88) 97 03/13/20 16:17 Nasal Cannula 2.0 03/13/20 16:17 73 03/13/20 12:00 Nasal Cannula 2.0 03/13/20 12:00 60 03/13/20 12:00 97.8 60 20 118/59 (78) 100 03/13/20 09:52 100 Nasal Cannula 2.0 28 03/13/20 08:49 97 165/55 03/13/20 08:00 98.1 97 20 165/55 (91) 99 03/13/20 08:00 Nasal Cannula 2.0 03/13/20 07:38 75 03/13/20 04:45 Nasal Cannula 2.0 03/13/20 04:45 98.0 88 20 107/57 (74) 99 03/13/20 04:00 98.6 78 20 118/66 (83) 95 03/13/20 04:00 70 03/13/20 00:00 Nasal Cannula 2.0 03/13/20 00:00 98.1 81 21 113/73 (86) 100 03/12/20 23:33 75 03/12/20 21:06 99 Nasal Cannula 2.0 28 03/12/20 20:00 98.4 83 24 102/62 (75) 99 03/12/20 20:00 Nasal Cannula 2.0 03/12/20 20:00 74 03/12/20 17:27 73 122/53 Intake and Output 03/12/20 03/13/20 19:00 07:00 Intake Total 1835 ml 955 ml Output Total 1500 ml 1000 ml Balance 335 ml -45 ml Intake Oral 680 ml IV Total 1155 ml 955 ml Output Urine Total 1500 ml 1000 ml # Bowel Movements 2 4 Laboratory Tests Test 03/12/20 16:46 03/12/20 21:11 03/13/20 03:30 03/13/20 05:49 POC Whole Blood Glucose 157 MG/DL (74-106) H 184 MG/DL (74-106) H 99 MG/DL (74-106) White Blood Count 23.9 K/UL (4.8-10.8) *H Red Blood Count 2.86 M/UL (4.70-6.10) L Hemoglobin 7.3 G/DL (14.2-18.0) L Hematocrit 22.8 % (42.0-52.0) L Mean Corpuscular Volume 80 FL (80-99) Mean Corpuscular Hemoglobin 25.5 PG (27.0-31.0) L Mean Corpuscular Hemoglobin Concent 32.0 G/DL (32.0-36.0) Red Cell Distribution Width 15.8 % (11.6-14.8) H Platelet Count 247 K/UL (150-450) Mean Platelet Volume 6.1 FL (6.5-10.1) L Neutrophils (%) (Auto) % (45.0-75.0) Lymphocytes (%) (Auto) % (20.0-45.0) Monocytes (%) (Auto) % (1.0-10.0) Eosinophils (%) (Auto) % (0.0-3.0) Basophils (%) (Auto) % (0.0-2.0) Differential Total Cells Counted 100 Neutrophils % (Manual) 86 % (45-75) H Lymphocytes % (Manual) 7 % (20-45) L Monocytes % (Manual) 7 % (1-10) Eosinophils % (Manual) 0 % (0-3) Basophils % (Manual) 0 % (0-2) Band Neutrophils 0 % (0-8) Platelet Estimate Adequate Platelet Morphology Normal Hypochromasia 1+ Anisocytosis 1+ Erythrocyte Sedimentation Rate 124 MM/HR (0-20) H Sodium Level 137 MMOL/L (136-145) Potassium Level 4.4 MMOL/L (3.5-5.1) Chloride Level 108 MMOL/L (98-107) H Carbon Dioxide Level 22 MMOL/L (21-32) Anion Gap 7 mmol/L (5-15) Blood Urea Nitrogen 22 mg/dL (7-18) H Creatinine 1.2 MG/DL (0.55-1.30) Estimat Glomerular Filtration Rate > 60 mL/min (>60) Glucose Level 106 MG/DL (74-106) Calcium Level 8.4 MG/DL (8.5-10.1) L Phosphorus Level 2.0 MG/DL (2.5-4.9) L Magnesium Level 1.5 MG/DL (1.8-2.4) L Total Bilirubin 0.4 MG/DL (0.2-1.0) Aspartate Amino Transf (AST/SGOT) 18 U/L (15-37) Alanine Aminotransferase (ALT/SGPT) 18 U/L (12-78) Alkaline Phosphatase 76 U/L (46-116) C-Reactive Protein, Quantitative 9.7 mg/dL (0.00-0.90) H Total Protein 6.1 G/DL (6.4-8.2) L Albumin 1.8 G/DL (3.4-5.0) L Globulin 4.3 g/dL Albumin/Globulin Ratio 0.4 (1.0-2.7) L Test 03/13/20 11:16 POC Whole Blood Glucose 174 MG/DL (74-106) H Microbiology Date/Time Source Procedure Growth Status 03/11/20 09:30 Blood Blood Culture - Preliminary NO GROWTH AFTER 24 HOURS Resulted 03/11/20 09:25 Blood Blood Culture - Preliminary NO GROWTH AFTER 24 HOURS Resulted 03/10/20 18:30 Nasopharynx SARS-CoV-2 RdRp Gene Assay - Final Complete 03/10/20 18:30 Urine,Clean Catch Urine Culture - Final Escherichia Coli - Esbl Complete 03/11/20 06:05 Rectum Received Nj Valenzuela MD Mar 13, 2020 16:45
--- NOTE | 2020-03-13 16:54 | Diagnostic Imaging Report ---
Procedure: XRAY Chest 1v Reason for study: Reason For Exam: COUGH Comparison films: 03/10/2020. FINDINGS: Pacer remains in place. Vascularity is normal. Some crowding of markings remain in the lung bases likely related to a limited inspiration and low lung volumes. No new alveolar process. Cardiac and mediastinal silhouette are within normal limits. CP angles are sharp. The bony thorax appear unremarkable. IMPRESSION: NO SIGNIFICANT CHANGE COMPARED TO PREVIOUS EXAM.
--- NOTE | 2020-03-13 19:33 | NUR ---
NURSE NOTES: Patient received from Radha MARLEY. Patient in stable condition. No s/s of distress. Patient alert and oriented x 1-2. On 2L of nasal cannula saturating well. Robertson catheter patent and intact draining blood tinged urine, aware. IV site patent on Left FA 18G and Right FA 20G running NS @ 100mls/hr. Bed in lowest position and locked. Call light and bedside table within reach. Patient wearing yellow gown and yellow socks. Bed alarm on. Will continue plan of care.
--- NOTE | 2020-03-13 19:39 | NUR ---
HAND-OFF: Report given to DONELL Kee. Patient is in stable condition.
[2020-03-13] MEDS: Atorvastatin 20mg tab ORAL SCH (20:52)
[2020-03-13] MEDS: Tamsulosin 0.4mg cap ORAL SCH (20:53)
[2020-03-14] VITALS: BP 111/63
[2020-03-14] MEDS: Meropenem 1 GM in NS 55 ML IVPB SCH (03:33)
[2020-03-14 04:00] VITALS: BP 127/67
[2020-03-14] MEDS: NovoLOG Insulin Flexpen SUBQ SCH ×4 (05:14→21:00)
--- NOTE | 2020-03-14 06:56 | NUR ---
HAND-OFF: Report given to Radha MARLEY. Patient in stable condition. Endorsed necktie operator pockets and pieces's recommendation for Glucerna TID for poor apetite and BID if patient is eating well. Endorsed plan of care.
--- NOTE | 2020-03-14 06:57 | NUR ---
NURSE NOTES: RECEIVED PATIENT AND REPORT FROM CHAN RN IN BED, DENIES ANY PAIN AT THIS TIME. POSITIONED PATIENT TO EAT BREAKFAST. NO S/S OF RESPIRATORY DISTRESS OR DISCOMFORT NOTED AT THIS TIME. IV'S ARE INTACT, PATENT, FLUID RUNNING IN THE RFA AND PATIENT TOLERATING WELL. NOTED BLOOD TINGED URINE IN THE SULLIVAN BAG, MD AWARE, NO NEW ORDER. BED IS IN LOWEST POSITION WITH BEDSIDE RAILS UP X3, BRAKES ENGAGED FOR SAFETY, CALL LIGHT IS WITHIN EASY REACH. WILL CONTINUE WITH THE PLAN OF CARE.
[2020-03-14 07:23] LABS: HEMATOCRIT 27.7 % (42.0-52.0); MEAN CORPUSCULAR VOLUME 81 FL (80-99); PLATELET COUNT 274 K/UL (150-450); RED BLOOD COUNT 3.43 M/UL (4.70-6.10); RED CELL DISTRIBUTION WIDTH 16.1 % (11.6-14.8)
[2020-03-14 07:40] LABS: WHITE BLOOD COUNT 24.4 K/UL (4.8-10.8)
--- NOTE | 2020-03-14 07:40 | NUR ---
NURSE NOTES: LAB CALLED TO REPORT WBC OF 24.4, WILL NOTIFY MD. WILL CONTINUE TO MONITOR PATIENT.
[2020-03-14 07:48] LABS: ALANINE AMINOTRANSFERASE 18 U/L (12-78); ALBUMIN 1.9 G/DL (3.4-5.0); ALBUMIN/GLOBULIN RATIO 0.5 (1.0-2.7); ALKALINE PHOSPHATASE 72 U/L (46-116); ANION GAP 7 mmol/L (5-15); ASPARTATE AMINO TRANSFERASE 17 U/L (15-37); BILIRUBIN,TOTAL 0.7 MG/DL (0.2-1.0); BLOOD UREA NITROGEN 20 mg/dL (7-18); CALCIUM 8.1 MG/DL (8.5-10.1); CARBON DIOXIDE 23 MMOL/L (21-32); CHLORIDE 110 MMOL/L (98-107); PHOSPHORUS 3.2 MG/DL (2.5-4.9); POTASSIUM 4.2 MMOL/L (3.5-5.1); SODIUM 140 MMOL/L (136-145)
[2020-03-14 08:00] VITALS: BP 153/61
[2020-03-14] MEDS: Aspirin EC 81mg tab ORAL SCH (08:21)
[2020-03-14] MEDS: Metoprolol Tartrate 12.5mg TAB ORAL SCH ×2 (08:22→17:45)
--- NOTE | 2020-03-14 09:07 | NUR ---
CASE MANAGEMENT:REVIEW 03/14/20 SI: NSTEMI. E COLI UTI. LEUKOCYTOSIS. ANEMIA..S/P 3 UNITS PRBC'C. H/O BLADDER CANCER 97.9 75 16 127/67 100% ON 2L/NC WBC+24.4 H/H-9.0/27.7 BUN+20 ALB-1.9 IS: IV MEROPENEM Q12 IVF@100/HR LIPITOR PO QHS FLOMAX PO QHS ASA PO QD LOPRESSOR PO BID STARLIX PO QD : TELEMETRY UNIT DCP: FROM [facility]: IF WBC'S REMAIN HIGH THEN CT ABD/PELVIS WILL BE DONE
--- NOTE | 2020-03-14 09:09 | NUR ---
RD ASSESSMENT & RECOMMENDATIONS SEE CARE ACTIVITY FOR COMPLETE ASSESSMENT DAILY ESTIMATED NEEDS: Needs based on DM, ca 70.2g 25-35 kcals/kg 6934-2072 total kcals 1-2 g protein/kg 70-140 g total protein 20-30ml/kcal mL/kg 5424-9072 total fluid mLs NUTRITION DIAGNOSIS: * Swallowing difficulty R/T dysphagia as evidenced by h/o CVA, s/p EQUIPMENT CLEANER AND TESTER eval, on [facility] soft chopped diet w/ NTL , variable po intake. (CURRENT DIET:CCHO MED, ms chopped w/ NTL+ Ensure TID) PO DIET RECOMMENDATIONS--->>> CCHO MED / texture per E[employer]IP[employer] ADDITIONAL RECOMMENDATIONS: 1) Calibrated bedscale wt for accurate CBW EMR wt: 190# vs Bed wt: 154# 2) Check lytes daily, replete as needed (Low phos, Mg- now wnl) 3) Glucerna 1 tetra robinson TID 4) E[employer]IP[employer] evaluation for appropriate texture and max po intake On chopped diet w/ NTL .
--- NOTE | 2020-03-14 11:36 | Pulmonology Progress Note ---
Subjective ROS Limited/Unobtainable: No Interval Events: doing better Allergies: Coded Allergies: No Known Allergies (Unverified , 04/09/16) Objective Last 24 Hour Vital Signs Date Time Temp Pulse Resp B/P (MAP) Pulse Ox O2 Delivery O2 Flow Rate FiO2 03/14/20 08:22 69 153/61 03/14/20 08:00 96.7 69 18 153/61 (91) 100 03/14/20 08:00 Nasal Cannula 2.0 03/14/20 08:00 79 03/14/20 04:00 67 03/14/20 04:00 Nasal Cannula 2.0 03/14/20 04:00 97.9 75 16 127/67 (87) 100 03/14/20 00:00 70 03/14/20 00:00 97.7 66 18 111/63 (79) 99 03/14/20 00:00 Nasal Cannula 2.0 03/13/20 20:00 99 Nasal Cannula 2.0 28 03/13/20 20:00 69 03/13/20 20:00 Nasal Cannula 2.0 03/13/20 20:00 97.9 65 18 122/68 (86) 99 03/13/20 17:19 73 115/74 03/13/20 16:17 97.7 69 18 115/74 (88) 97 03/13/20 16:17 Nasal Cannula 2.0 03/13/20 16:17 73 03/13/20 12:00 Nasal Cannula 2.0 03/13/20 12:00 60 03/13/20 12:00 97.8 60 20 118/59 (78) 100 Intake and Output 03/13/20 03/14/20 19:00 07:00 Intake Total 120 ml Output Total 1000 ml Balance -880 ml Intake Oral 120 ml Output Urine Total 1000 ml # Voids 3 2 # Bowel Movements 3 3 General Appearance: cachetic HEENT: normocephalic, atraumatic Respiratory: chest wall non-tender, lungs clear, normal breath sounds, no respiratory distress Cardiovascular: normal peripheral pulses, normal rate, regular rhythm Abdomen: normal bowel sounds, soft, non tender, no organomegaly Genitourinary: normal external genitalia Extremities: no clubbing Skin: no rash Neurologic: data modeler II-XII grossly normal Microbiology Date/Time Source Procedure Growth Status 03/12/20 06:05 Nasal Nares MRSA Culture - Final NO METHICILLIN RESISTANT STAPH AUREUS... Complete 03/12/20 04:00 Rectum VRE Culture - Final Enterococcus Faecalis - Vre Complete Laboratory Tests 03/14/20 05:03: POC Whole Blood Glucose 88 03/14/20 05:31: White Blood Count 24.4*H, Red Blood Count 3.43L, Hemoglobin 9.0L, Hematocrit 27.7L, Mean Corpuscular Volume 81, Mean Corpuscular Hemoglobin 26.2L, Mean Corpuscular Hemoglobin Concent 32.5, Red Cell Distribution Width 16.1H, Platelet Count 274, Mean Platelet Volume 5.6L, Neutrophils (%) (Auto) , Lymphocytes (%) (Auto) , Monocytes (%) (Auto) , Eosinophils (%) (Auto) , Basophils (%) (Auto) , Differential Total Cells Counted 100, Neutrophils % ( Manual) 85H, Lymphocytes % (Manual) 9L, Monocytes % (Manual) 5, Eosinophils % ( Manual) 0, Basophils % (Manual) 1, Band Neutrophils 0, Platelet Estimate Adequate, Platelet Morphology Normal, Hypochromasia 2+, Anisocytosis 1+, Erythrocyte Sedimentation Rate 112H, Sodium Level 140, Potassium Level 4.2, Chloride Level 110H, Carbon Dioxide Level 23, Anion Gap 7, Blood Urea Nitrogen 20H, Creatinine 1.0, Estimat Glomerular Filtration Rate > 60, Glucose Level 78, Calcium Level 8.1L, Phosphorus Level 3.2, Magnesium Level 1.8, Total Bilirubin 0.7, Aspartate Amino Transf (AST/SGOT) 17, Alanine Aminotransferase (ALT/SGPT) 18, Alkaline Phosphatase 72, C-Reactive Protein, Quantitative 7.3H, Total Protein 5.9L, Albumin 1.9L, Globulin 4.0, Albumin/Globulin Ratio 0.5L, Lipase 56L 03/14/20 11:21: POC Whole Blood Glucose 141H Current Medications Medications (Trade) Dose Ordered Sig/Levi Route PRN Reason Start Time Stop Time Status Last Admin Dose Admin Acetaminophen (Tylenol) 650 mg Q4H PRN ORAL fever (T>100.5F) 03/13/20 04:45 04/09/20 04:44 Albuterol/ Ipratropium (Albuterol/ Ipratropium) 3 ml Q4H PRN HHN Shortness of Breath 03/13/20 04:45 03/15/20 04:44 Aspirin (Ecotrin) 81 mg DAILY ORAL 03/13/20 09:00 04/25/20 12:44 03/14/20 08:21 Atorvastatin Calcium (Lipitor) 20 mg BEDTIME ORAL 03/13/20 21:00 06/09/20 20:59 03/13/20 20:52 Dextrose (Dextrose 50%) 25 ml Q30M PRN IV Hypoglycemia 03/13/20 05:00 06/11/20 04:59 Dextrose (Dextrose 50%) 50 ml Q30M PRN IV Hypoglycemia 03/13/20 05:00 06/08/20 14:29 Finasteride (Proscar) 5 mg DAILY ORAL 03/13/20 09:00 06/09/20 08:59 03/14/20 08:22 Insulin Aspart (NovoLOG) BEFORE MEALS AND HS SUBQ 03/13/20 06:30 06/08/20 16:59 03/13/20 21:00 Meropenem 1 gm/ Sodium Chloride 55 ml @ 110 mls/hr Q8HR IVPB 03/14/20 14:00 03/19/20 13:59 Metoprolol Tartrate (Lopressor) 12.5 mg BID ORAL 03/13/20 09:00 06/08/20 21:59 03/14/20 08:22 Nateglinide (Starlix) 120 mg DAILY ORAL 03/13/20 09:00 04/10/20 08:59 03/14/20 08:22 Nitroglycerin (Ntg) 0.4 mg Q5M PRN SL Prn Chest Pain 03/13/20 04:45 04/09/20 14:29 Ondansetron HCl (Zofran) 4 mg Q6H PRN IVP Nausea & Vomiting 03/13/20 04:45 04/09/20 04:44 Polyethylene Glycol (Miralax) 17 gm DAILYPRN PRN ORAL Constipation 03/13/20 04:45 04/09/20 04:44 Sodium Chloride 1,000 ml @ 100 mls/hr Q10H IVLG 03/13/20 04:45 04/09/20 16:14 03/14/20 09:44 Tamsulosin HCl (Flomax) 0.4 mg BEDTIME ORAL 03/13/20 21:00 04/09/20 20:59 03/13/20 20:53 Temazepam (Restoril) 15 mg HSPRN PRN ORAL Insomnia 03/13/20 14:30 03/17/20 14:29 Assessment/Plan Problems: (1) UTI (urinary tract infection) (2) MDRO (multiple drug resistant organisms) resistance (3) NSTEMI (non-ST elevated myocardial infarction) (4) Bladder cancer (5) Hematuria (6) Anemia (7) Diabetes mellitus (8) HTN (hypertension) (9) Alzheimer's dementia (10) Chronic cerebrovascular accident (CVA) Assessment/Plan wbc still high less hematuria, continue teli monitoring prbc prn.h/h better today after transfusion yesterday anemia w/u decrease iv fluids miller culture IV abx, vanco and cefepime sliding scale symptomatic treatment cardio to see echo cardiogram ID consult appreciated Og Hinkle MD Mar 14, 2020 11:36
--- NOTE | 2020-03-14 11:55 | Internal Med Progress Note ---
Subjective Date of Service: Mar 14, 2020 Physician Name BrittaniJean-Claude Attending Physician Jaziel Lowe MD Current Medications Medications (Trade) Dose Ordered Sig/Levi Route PRN Reason Start Time Stop Time Status Last Admin Dose Admin Acetaminophen (Tylenol) 650 mg Q4H PRN ORAL fever (T>100.5F) 03/13/20 04:45 04/09/20 04:44 Albuterol/ Ipratropium (Albuterol/ Ipratropium) 3 ml Q4H PRN HHN Shortness of Breath 03/13/20 04:45 03/15/20 04:44 Aspirin (Ecotrin) 81 mg DAILY ORAL 03/13/20 09:00 04/25/20 12:44 03/14/20 08:21 Atorvastatin Calcium (Lipitor) 20 mg BEDTIME ORAL 03/13/20 21:00 06/09/20 20:59 03/13/20 20:52 Dextrose (Dextrose 50%) 25 ml Q30M PRN IV Hypoglycemia 03/13/20 05:00 06/11/20 04:59 Dextrose (Dextrose 50%) 50 ml Q30M PRN IV Hypoglycemia 03/13/20 05:00 06/08/20 14:29 Finasteride (Proscar) 5 mg DAILY ORAL 03/13/20 09:00 06/09/20 08:59 03/14/20 08:22 Insulin Aspart (NovoLOG) BEFORE MEALS AND HS SUBQ 03/13/20 06:30 06/08/20 16:59 03/13/20 21:00 Meropenem 1 gm/ Sodium Chloride 55 ml @ 110 mls/hr Q8HR IVPB 03/14/20 14:00 03/19/20 13:59 Metoprolol Tartrate (Lopressor) 12.5 mg BID ORAL 03/13/20 09:00 06/08/20 21:59 03/14/20 08:22 Nateglinide (Starlix) 120 mg DAILY ORAL 03/13/20 09:00 04/10/20 08:59 03/14/20 08:22 Nitroglycerin (Ntg) 0.4 mg Q5M PRN SL Prn Chest Pain 03/13/20 04:45 04/09/20 14:29 Ondansetron HCl (Zofran) 4 mg Q6H PRN IVP Nausea & Vomiting 03/13/20 04:45 04/09/20 04:44 Polyethylene Glycol (Miralax) 17 gm DAILYPRN PRN ORAL Constipation 03/13/20 04:45 04/09/20 04:44 Sodium Chloride 1,000 ml @ 100 mls/hr Q10H IVLG 03/13/20 04:45 04/09/20 16:14 03/14/20 09:44 Tamsulosin HCl (Flomax) 0.4 mg BEDTIME ORAL 03/13/20 21:00 04/09/20 20:59 03/13/20 20:53 Temazepam (Restoril) 15 mg HSPRN PRN ORAL Insomnia 03/13/20 14:30 03/17/20 14:29 Allergies: Coded Allergies: No Known Allergies (Unverified , 04/09/16) ROS Limited/Unobtainable: No Constitutional: Reports: no symptoms HEENT: Reports: no symptoms Cardiovascular: Reports: no symptoms Respiratory: Reports: no symptoms Gastrointestinal/Abdominal: Reports: no symptoms Genitourinary: Reports: no symptoms 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: Reports: no symptoms Subjective 84 YO M with a history of bladder cancer admitted with chest pain. Cover for Int Med-DR Lowe. Tele Objective Last Vital Signs Date Time Temp Pulse Resp B/P (MAP) Pulse Ox O2 Delivery O2 Flow Rate FiO2 03/14/20 08:22 69 153/61 03/14/20 08:00 96.7 18 100 03/14/20 08:00 Nasal Cannula 2.0 03/13/20 20:00 28 Laboratory Tests Test 03/14/20 05:03 03/14/20 05:31 03/14/20 11:21 POC Whole Blood Glucose 88 MG/DL (74-106) 141 MG/DL (74-106) H White Blood Count 24.4 K/UL (4.8-10.8) *H Red Blood Count 3.43 M/UL (4.70-6.10) L Hemoglobin 9.0 G/DL (14.2-18.0) L Hematocrit 27.7 % (42.0-52.0) L Mean Corpuscular Volume 81 FL (80-99) Mean Corpuscular Hemoglobin 26.2 PG (27.0-31.0) L Mean Corpuscular Hemoglobin Concent 32.5 G/DL (32.0-36.0) Red Cell Distribution Width 16.1 % (11.6-14.8) H Platelet Count 274 K/UL (150-450) Mean Platelet Volume 5.6 FL (6.5-10.1) L Neutrophils (%) (Auto) % (45.0-75.0) Lymphocytes (%) (Auto) % (20.0-45.0) Monocytes (%) (Auto) % (1.0-10.0) Eosinophils (%) (Auto) % (0.0-3.0) Basophils (%) (Auto) % (0.0-2.0) Differential Total Cells Counted 100 Neutrophils % (Manual) 85 % (45-75) H Lymphocytes % (Manual) 9 % (20-45) L Monocytes % (Manual) 5 % (1-10) Eosinophils % (Manual) 0 % (0-3) Basophils % (Manual) 1 % (0-2) Band Neutrophils 0 % (0-8) Platelet Estimate Adequate Platelet Morphology Normal Hypochromasia 2+ Anisocytosis 1+ Erythrocyte Sedimentation Rate 112 MM/HR (0-20) H Sodium Level 140 MMOL/L (136-145) Potassium Level 4.2 MMOL/L (3.5-5.1) Chloride Level 110 MMOL/L (98-107) H Carbon Dioxide Level 23 MMOL/L (21-32) Anion Gap 7 mmol/L (5-15) Blood Urea Nitrogen 20 mg/dL (7-18) H Creatinine 1.0 MG/DL (0.55-1.30) Estimat Glomerular Filtration Rate > 60 mL/min (>60) Glucose Level 78 MG/DL (74-106) Calcium Level 8.1 MG/DL (8.5-10.1) L Phosphorus Level 3.2 MG/DL (2.5-4.9) Magnesium Level 1.8 MG/DL (1.8-2.4) Total Bilirubin 0.7 MG/DL (0.2-1.0) Aspartate Amino Transf (AST/SGOT) 17 U/L (15-37) Alanine Aminotransferase (ALT/SGPT) 18 U/L (12-78) Alkaline Phosphatase 72 U/L (46-116) C-Reactive Protein, Quantitative 7.3 mg/dL (0.00-0.90) H Total Protein 5.9 G/DL (6.4-8.2) L Albumin 1.9 G/DL (3.4-5.0) L Globulin 4.0 g/dL Albumin/Globulin Ratio 0.5 (1.0-2.7) L Lipase 56 U/L (73-393) L Microbiology Date/Time Source Procedure Growth Status 03/12/20 06:05 Nasal Nares MRSA Culture - Final NO METHICILLIN RESISTANT STAPH AUREUS... Complete 03/12/20 04:00 Rectum VRE Culture - Final Enterococcus Faecalis - Vre Complete Intake and Output 03/13/20 03/14/20 19:00 07:00 Intake Total 120 ml Output Total 1000 ml Balance -880 ml Intake Oral 120 ml Output Urine Total 1000 ml # Voids 3 2 # Bowel Movements 3 3 Objective PHYSICAL EXAMINATION: GENERAL: The patient is a well-developed and well-nourished male, in no apparent distress. HEENT: Eyes, pupils are equal and responsive to light and accommodation. Extraocular movements are intact. NECK: Supple without lymphadenopathy. CHEST: Lungs are clear to auscultation bilaterally without wheezes or rales. CARDIOVASCULAR: Regular rhythm and rate. S1, S2 are normal without murmurs, rubs, or gallops. ABDOMEN: Soft, nontender, and nondistended. Positive bowel sounds. No evidence of hepatosplenomegaly. Currently, no rebound or guarding noted. EXTREMITIES: Negative for clubbing, cyanosis, or edema. RECTAL/GENITAL: Not performed. NEUROLOGIC: Cranial nerves II through XII are grossly intact without focal deficits. Motor strength is 5/5 bilaterally. Deep tendon reflexes are 2+ plantar. Assessment/Plan Assessment/Plan ASSESSMENT: This is an 84-year-old male. 1. Chest pain. 2. Elevated troponin level. 3. Bladder cancer. 4. Gastritis. 5. Hypertension. 6. Diabetes type 2. 7. Atrioventricular conduction defect. 8. Alzheimer's dementia. 9. Cerebrovascular disease. 10. Right hemiplegia. 11. Pacemaker in situ. 12. Urinary tract infection=ESBL E. Coli TREATMENT: 1. Chest pain/elevated troponin. A Cardiology consultation has been obtained with Dr. Nj Valenzuela. We will follow recommendations of Cardiology. 2. Bladder cancer. The patient is followed as an outpatient by Dr. Macho Bamshad. The patient is status post transurethral resection of bladder tumor x2. We will follow recommendations of Urology. 3. Gastritis. Continue Protonix as above. 4. Hypertension. 5. Diabetes type 2. A NovoLog sliding scale has been instituted. 6. Atrioventricular conduction defect. The patient is status post pacemaker implantation. 7. Alzheimer's dementia. 8. Cerebrovascular disease, status post cerebrovascular accident. 9. Right hemiplegia. 10. ABX=meropenem per ID=Jean-Claude Mcleod MD Mar 14, 2020 11:54
[2020-03-14 12:00] VITALS: BP 114/66
--- NOTE | 2020-03-14 13:02 | NUR ---
ST NOTE SWALLOW STATUS Pt being seen for dysphagia tx, current diet is mechanical soft chopped with nectar thick liquids (mildly thick liquids). Chart reviewed. UPDATED CXR 03/13/20 FINDINGS: Pacer remains in place. Vascularity is normal. Some crowding of markings remain in the lung bases likely related to a limited inspiration and low lung volumes. No new alveolar process. Cardiac and mediastinal silhouette are within normal limits. CP angles are sharp. The bony thorax appear unremarkable. IMPRESSION:NO SIGNIFICANT CHANGE COMPARED TO PREVIOUS EXAM. ST spoke with RN who reports Pt with good intake of current diet, however, Pt was unable to masticate larger pieces of chicken, with RN removing un-chewed pieces of food from oral cavity due to concern for aspiration. ST plans to downgrade Pt to Mechanical soft Fine Chopped, continue nectar thick liquids, will implement RD updated recs. PER RD 03/14/20: (CURRENT DIET:CCHO MED, ms chopped w/ NTL+ Ensure TID) PO DIET RECOMMENDATIONS--->>> CCHO MED / texture per HEDIS COORDINATOR ADDITIONAL RECOMMENDATIONS: 1) Calibrated bedscale wt for accurate CBW EMR wt: 190# vs Bed wt: 154# 2) Check lytes daily, replete as needed (Low phos, Mg- now wnl) 3) Glucerna 1 tetra pack TID 4) HEDIS COORDINATOR evaluation for appropriate texture and max po intake on chopped diet w/ NTL ST made RN aware of plan to modify texture is aware of aspiration precautions/risks and safe swallow strategies. ST will continue to follow.
--- NOTE | 2020-03-14 14:13 | Infectious Diseases Prog Note ---
Assessment/Plan 84yo M with bladder cancer who p/w chest pain, found to have elevated troponin and leukocytosis. Afebrile R/o sepsis Leukocytosis, overall improved but remains elevated- r/o intrabdominal abscess UTI, UA with tnct WBC, UCx >100k ESBL Ec.coli Rapid COVID neg x1 -8.4 CXR: Some crowding of markings remain inthe lung bases likely related to a limited inspiration and low lung volumes. No newalveolar process. CXR unremarkable, satting well on 2L NC R/o bacteremia 8/ BCx NTD 8/1 BCx NTD NSTEMI w/ elevated troponin, can also be a cause of reactive leukocytosis Bladder cancer Hematuria Plan: Continue Meropenem #3 for ESBL UTI -/ SP IV Vancomycijn #2, Cefepime #2 No diarrhea, but if occurs check C.dif F/u UCx (UA w/ pyuria) F/u BCx Trend resp status Trend leukocytosis daily CT abd/p w/ to eval for abscess Monitor CBC, CMP D/w RN Thank you for this consult. [facility] will continue to follow. Subjective Allergies: Coded Allergies: No Known Allergies (Unverified , 04/09/16) afebrile wbc overall improved stil remains on the 20s Bcx NTD Objective Last 24 Hour Vital Signs Date Time Temp Pulse Resp B/P (MAP) Pulse Ox O2 Delivery O2 Flow Rate FiO2 03/14/20 12:00 97.7 68 18 114/66 (82) 98 03/14/20 12:00 68 03/14/20 08:22 69 153/61 03/14/20 08:00 96.7 69 18 153/61 (91) 100 03/14/20 08:00 Nasal Cannula 2.0 03/14/20 08:00 79 03/14/20 04:00 67 03/14/20 04:00 Nasal Cannula 2.0 03/14/20 04:00 97.9 75 16 127/67 (87) 100 03/14/20 00:00 70 03/14/20 00:00 97.7 66 18 111/63 (79) 99 03/14/20 00:00 Nasal Cannula 2.0 03/13/20 20:00 99 Nasal Cannula 2.0 28 03/13/20 20:00 69 03/13/20 20:00 Nasal Cannula 2.0 03/13/20 20:00 97.9 65 18 122/68 (86) 99 03/13/20 17:19 73 115/74 03/13/20 16:17 97.7 69 18 115/74 (88) 97 03/13/20 16:17 Nasal Cannula 2.0 03/13/20 16:17 73 Height (Feet): 5 Height (Inches): 9.00 Weight (Pounds): 158 Gen: Older man, laying in bed, NAD HEENT: OP clear, MM dry, no LAD CV: RRR Pulm: CTAB anteriorly Abd: Soft, thin, NTND Ext: No c/c/e Skin: No notable skin lesions, rashes or ulcers Microbiology Date/Time Source Procedure Growth Status 03/12/20 06:05 Nasal Nares MRSA Culture - Final NO METHICILLIN RESISTANT STAPH AUREUS... Complete 03/12/20 04:00 Rectum VRE Culture - Final Enterococcus Faecalis - Vre Complete Laboratory Tests Test 03/14/20 05:03 03/14/20 05:31 03/14/20 11:21 POC Whole Blood Glucose 88 MG/DL (74-106) 141 MG/DL (74-106) H White Blood Count 24.4 K/UL (4.8-10.8) *H Red Blood Count 3.43 M/UL (4.70-6.10) L Hemoglobin 9.0 G/DL (14.2-18.0) L Hematocrit 27.7 % (42.0-52.0) L Mean Corpuscular Volume 81 FL (80-99) Mean Corpuscular Hemoglobin 26.2 PG (27.0-31.0) L Mean Corpuscular Hemoglobin Concent 32.5 G/DL (32.0-36.0) Red Cell Distribution Width 16.1 % (11.6-14.8) H Platelet Count 274 K/UL (150-450) Mean Platelet Volume 5.6 FL (6.5-10.1) L Neutrophils (%) (Auto) % (45.0-75.0) Lymphocytes (%) (Auto) % (20.0-45.0) Monocytes (%) (Auto) % (1.0-10.0) Eosinophils (%) (Auto) % (0.0-3.0) Basophils (%) (Auto) % (0.0-2.0) Differential Total Cells Counted 100 Neutrophils % (Manual) 85 % (45-75) H Lymphocytes % (Manual) 9 % (20-45) L Monocytes % (Manual) 5 % (1-10) Eosinophils % (Manual) 0 % (0-3) Basophils % (Manual) 1 % (0-2) Band Neutrophils 0 % (0-8) Platelet Estimate Adequate Platelet Morphology Normal Hypochromasia 2+ Anisocytosis 1+ Erythrocyte Sedimentation Rate 112 MM/HR (0-20) H Sodium Level 140 MMOL/L (136-145) Potassium Level 4.2 MMOL/L (3.5-5.1) Chloride Level 110 MMOL/L (98-107) H Carbon Dioxide Level 23 MMOL/L (21-32) Anion Gap 7 mmol/L (5-15) Blood Urea Nitrogen 20 mg/dL (7-18) H Creatinine 1.0 MG/DL (0.55-1.30) Estimat Glomerular Filtration Rate > 60 mL/min (>60) Glucose Level 78 MG/DL (74-106) Calcium Level 8.1 MG/DL (8.5-10.1) L Phosphorus Level 3.2 MG/DL (2.5-4.9) Magnesium Level 1.8 MG/DL (1.8-2.4) Total Bilirubin 0.7 MG/DL (0.2-1.0) Aspartate Amino Transf (AST/SGOT) 17 U/L (15-37) Alanine Aminotransferase (ALT/SGPT) 18 U/L (12-78) Alkaline Phosphatase 72 U/L (46-116) C-Reactive Protein, Quantitative 7.3 mg/dL (0.00-0.90) H Total Protein 5.9 G/DL (6.4-8.2) L Albumin 1.9 G/DL (3.4-5.0) L Globulin 4.0 g/dL Albumin/Globulin Ratio 0.5 (1.0-2.7) L Lipase 56 U/L (73-393) L Current Medications Medications (Trade) Dose Ordered Sig/Levi Route PRN Reason Start Time Stop Time Status Last Admin Dose Admin Acetaminophen (Tylenol) 650 mg Q4H PRN ORAL fever (T>100.5F) 03/13/20 04:45 04/09/20 04:44 Albuterol/ Ipratropium (Albuterol/ Ipratropium) 3 ml Q4H PRN HHN Shortness of Breath 03/13/20 04:45 03/15/20 04:44 Aspirin (Ecotrin) 81 mg DAILY ORAL 03/13/20 09:00 04/25/20 12:44 03/14/20 08:21 Atorvastatin Calcium (Lipitor) 20 mg BEDTIME ORAL 03/13/20 21:00 06/09/20 20:59 03/13/20 20:52 Dextrose (Dextrose 50%) 25 ml Q30M PRN IV Hypoglycemia 03/13/20 05:00 06/11/20 04:59 Dextrose (Dextrose 50%) 50 ml Q30M PRN IV Hypoglycemia 03/13/20 05:00 06/08/20 14:29 Finasteride (Proscar) 5 mg DAILY ORAL 03/13/20 09:00 06/09/20 08:59 03/14/20 08:22 Insulin Aspart (NovoLOG) BEFORE MEALS AND HS SUBQ 03/13/20 06:30 06/08/20 16:59 03/14/20 11:58 Meropenem 1 gm/ Sodium Chloride 55 ml @ 110 mls/hr Q8HR IVPB 03/14/20 14:00 03/19/20 13:59 Metoprolol Tartrate (Lopressor) 12.5 mg BID ORAL 03/13/20 09:00 06/08/20 21:59 03/14/20 08:22 Nateglinide (Starlix) 120 mg DAILY ORAL 03/13/20 09:00 04/10/20 08:59 03/14/20 08:22 Nitroglycerin (Ntg) 0.4 mg Q5M PRN SL Prn Chest Pain 03/13/20 04:45 04/09/20 14:29 Ondansetron HCl (Zofran) 4 mg Q6H PRN IVP Nausea & Vomiting 03/13/20 04:45 04/09/20 04:44 Polyethylene Glycol (Miralax) 17 gm DAILYPRN PRN ORAL Constipation 03/13/20 04:45 04/09/20 04:44 Sodium Chloride 1,000 ml @ 100 mls/hr Q10H IVLG 03/13/20 04:45 04/09/20 16:14 03/14/20 09:44 Tamsulosin HCl (Flomax) 0.4 mg BEDTIME ORAL 03/13/20 21:00 04/09/20 20:59 03/13/20 20:53 Temazepam (Restoril) 15 mg HSPRN PRN ORAL Insomnia 03/13/20 14:30 03/17/20 14:29 Tawny Darby M.D. Mar 14, 2020 14:13
[2020-03-14] MEDS ORDERED: Omnipaque-300 100ml vial INJ PRN (14:15)
[2020-03-14 16:00] VITALS: BP 121/71
[2020-03-14] MEDS: Meropenem 1gm/NS 55ml IVPB SCH ×4 (16:06→21:53)
[2020-03-14] MEDS ORDERED: HYDROCODON-ACE1 EA18 PO (19:09)
[2020-03-14] MEDS ORDERED: CRANBERRY500 M4 PO (19:09)
[2020-03-14] MEDS ORDERED: ACETAMINOPHEN325 M1 ORAL (19:09)
--- NOTE | 2020-03-14 19:25 | NUR ---
HAND-OFF: Report given to Luna MARLEY. Endorsed the plan of care.
--- NOTE | 2020-03-14 19:32 | NUR ---
NURSE NOTES: Report received from Radha RN, Patient was awake resting comfortably in bed. IV on left forearm intact and patent running NS at 100ml/hr as ordered. No erythema or bleeding noted. A/O x 1-2 able to make needs known. Robertson catheter draining reddish urine to gravity. Bed at lowest position, brakes on, siderails up x 3. Call light with in reach. Will continue plan of care.
--- NOTE | 2020-03-14 19:42 | Cardiology Progress Note ---
Assessment/Plan Assessment/Plan 1. Myocardial infarction, possibly late presentation of ST-elevation. 2. Severe anemia.etiology not yet apparent 3. Hematuria. 4. History of bladder tumor status post recent treatment in November. 5. Dementia. 6. Reported history of atrial fibrillation. 7. History of CVA. 8. Leukocytosis no afib over nite wbc still elevated possible but very unusual to be related to mi has some abd pain will repeat trop in am and ekg afebrile sinus pac, v sensed v paced previously echo personally reviewed , the inferior wall endocardium is poorly defined but part of the post wall is hypokinetic , ivc dilated , pacing wire noted stool for ob stool ob neg x2 off anticoagulation due to anemia Ecotrin low dose ldh elevate now on tele Subjective Cardiovascular: Denies: chest pain, lightheadedness Respiratory: Reports: shortness of breath Gastrointestinal/Abdominal: Reports: abdominal pain Genitourinary: Denies: burning Objective Last 24 Hour Vital Signs Date Time Temp Pulse Resp B/P (MAP) Pulse Ox O2 Delivery O2 Flow Rate FiO2 03/14/20 17:45 72 121/71 03/14/20 16:00 98.7 72 18 121/71 (88) 97 03/14/20 16:00 72 03/14/20 12:00 97.7 68 18 114/66 (82) 98 03/14/20 12:00 68 03/14/20 08:22 69 153/61 03/14/20 08:00 96.7 69 18 153/61 (91) 100 03/14/20 08:00 Nasal Cannula 2.0 03/14/20 08:00 79 03/14/20 04:00 67 03/14/20 04:00 Nasal Cannula 2.0 03/14/20 04:00 97.9 75 16 127/67 (87) 100 03/14/20 00:00 70 03/14/20 00:00 97.7 66 18 111/63 (79) 99 03/14/20 00:00 Nasal Cannula 2.0 03/13/20 20:00 99 Nasal Cannula 2.0 28 03/13/20 20:00 69 03/13/20 20:00 Nasal Cannula 2.0 03/13/20 20:00 97.9 65 18 122/68 (86) 99 General Appearance: no apparent distress, alert, patient on isolation Neck: supple Cardiovascular: normal rate Respiratory/Chest: crackles/rales Abdomen: normal bowel sounds, non tender, soft Extremities: no swelling Intake and Output 03/13/20 03/14/20 19:00 07:00 Intake Total 120 ml Output Total 1000 ml Balance -880 ml Intake Oral 120 ml Output Urine Total 1000 ml # Voids 3 2 # Bowel Movements 3 3 Laboratory Tests Test 03/14/20 05:03 03/14/20 05:31 03/14/20 11:21 03/14/20 15:55 POC Whole Blood Glucose 88 MG/DL (74-106) 141 MG/DL (74-106) H 129 MG/DL (74-106) H White Blood Count 24.4 K/UL (4.8-10.8) *H Red Blood Count 3.43 M/UL (4.70-6.10) L Hemoglobin 9.0 G/DL (14.2-18.0) L Hematocrit 27.7 % (42.0-52.0) L Mean Corpuscular Volume 81 FL (80-99) Mean Corpuscular Hemoglobin 26.2 PG (27.0-31.0) L Mean Corpuscular Hemoglobin Concent 32.5 G/DL (32.0-36.0) Red Cell Distribution Width 16.1 % (11.6-14.8) H Platelet Count 274 K/UL (150-450) Mean Platelet Volume 5.6 FL (6.5-10.1) L Neutrophils (%) (Auto) % (45.0-75.0) Lymphocytes (%) (Auto) % (20.0-45.0) Monocytes (%) (Auto) % (1.0-10.0) Eosinophils (%) (Auto) % (0.0-3.0) Basophils (%) (Auto) % (0.0-2.0) Differential Total Cells Counted 100 Neutrophils % (Manual) 85 % (45-75) H Lymphocytes % (Manual) 9 % (20-45) L Monocytes % (Manual) 5 % (1-10) Eosinophils % (Manual) 0 % (0-3) Basophils % (Manual) 1 % (0-2) Band Neutrophils 0 % (0-8) Platelet Estimate Adequate Platelet Morphology Normal Hypochromasia 2+ Anisocytosis 1+ Erythrocyte Sedimentation Rate 112 MM/HR (0-20) H Sodium Level 140 MMOL/L (136-145) Potassium Level 4.2 MMOL/L (3.5-5.1) Chloride Level 110 MMOL/L (98-107) H Carbon Dioxide Level 23 MMOL/L (21-32) Anion Gap 7 mmol/L (5-15) Blood Urea Nitrogen 20 mg/dL (7-18) H Creatinine 1.0 MG/DL (0.55-1.30) Estimat Glomerular Filtration Rate > 60 mL/min (>60) Glucose Level 78 MG/DL (74-106) Calcium Level 8.1 MG/DL (8.5-10.1) L Phosphorus Level 3.2 MG/DL (2.5-4.9) Magnesium Level 1.8 MG/DL (1.8-2.4) Total Bilirubin 0.7 MG/DL (0.2-1.0) Aspartate Amino Transf (AST/SGOT) 17 U/L (15-37) Alanine Aminotransferase (ALT/SGPT) 18 U/L (12-78) Alkaline Phosphatase 72 U/L (46-116) C-Reactive Protein, Quantitative 7.3 mg/dL (0.00-0.90) H Total Protein 5.9 G/DL (6.4-8.2) L Albumin 1.9 G/DL (3.4-5.0) L Globulin 4.0 g/dL Albumin/Globulin Ratio 0.5 (1.0-2.7) L Lipase 56 U/L (73-393) L Microbiology Date/Time Source Procedure Growth Status 03/12/20 06:05 Nasal Nares MRSA Culture - Final NO METHICILLIN RESISTANT STAPH AUREUS... Complete 03/12/20 04:00 Rectum VRE Culture - Final Enterococcus Faecalis - Vre Complete Nj Valenzuela MD Mar 14, 2020 19:42
[2020-03-14 20:00] VITALS: BP 137/61
[2020-03-14] MEDS: Tamsulosin 0.4mg cap ORAL SCH (21:53)
[2020-03-14] MEDS: Atorvastatin 20mg tab ORAL SCH (21:54)
[2020-03-15] VITALS: BP 134/64
--- NOTE | 2020-03-15 | NUR ---
NURSE NOTES: Patient placed on NPO pending CT of abdomen/ pelvis procedure in am.
[2020-03-15 04:00] VITALS: BP 131/63
[2020-03-15] MEDS: Meropenem 1gm/NS 55ml IVPB SCH ×6 (05:57→21:48)
[2020-03-15] MEDS: NovoLOG Insulin Flexpen SUBQ SCH ×4 (06:11→21:00)
[2020-03-15 07:22] LABS: HEMATOCRIT 28.8 % (42.0-52.0); HEMOGLOBIN 9.1 G/DL (14.2-18.0); MEAN CORPUSCULAR VOLUME 81 FL (80-99); PLATELET COUNT 279 K/UL (150-450); RED BLOOD COUNT 3.55 M/UL (4.70-6.10); RED CELL DISTRIBUTION WIDTH 16.4 % (11.6-14.8)
[2020-03-15 07:31] LABS: WHITE BLOOD COUNT 23.9 K/UL (4.8-10.8)
[2020-03-15 07:44] LABS: ANION GAP 7 mmol/L (5-15); BLOOD UREA NITROGEN 15 mg/dL (7-18); CALCIUM 8.4 MG/DL (8.5-10.1); CARBON DIOXIDE 24 MMOL/L (21-32); CHLORIDE 109 MMOL/L (98-107); SODIUM 140 MMOL/L (136-145)
--- NOTE | 2020-03-15 07:44 | NUR ---
HAND-OFF: Report given to DONELL Darby. Patient is awake lying semi-alvarenga's; resting comfortably. Endorsed to oncoming shift RN regarding patient's CT abdomen/pelvis procedure later today; verbalized understanding.
--- NOTE | 2020-03-15 07:50 | NUR ---
NURSE NOTES: Recvd pt. Pt is oriented and laying in bed comfortably. Pt is on room air with no sign of sob or resp distress. Pt has IV site to right FA running NS @ 100/hr, c/d/i. Robertson cath is in place draining red tinted blood, all blood thinners are being held. H/H has been checked and reviewed. Pt is on bed rest and NPO for scheduled procedure. Bed in lowest locked position, call light within reach, will continue with plan of care
[2020-03-15 08:00] VITALS: BP 125/62
--- NOTE | 2020-03-15 08:39 | NUR ---
CASE MANAGEMENT: 03/15/20 IS: CT ABD/PELVIS TO ASSESS FOR ABSCESS : TELEMETRY
[2020-03-15] MEDS: Aspirin EC 81mg tab ORAL SCH (08:55)
[2020-03-15] MEDS: Metoprolol Tartrate 12.5mg TAB ORAL SCH ×2 (08:55→17:03)
--- NOTE | 2020-03-15 10:04 | NUR ---
NURSE NOTES: Contrast was given to patient, completed at 0920
--- NOTE | 2020-03-15 11:59 | Diagnostic Imaging Report ---
Indication: Abdominal pain Technique: CT scan of the abdomen and pelvis was performed from the diaphragms to the symphysis pubis with intravenous contrast material and oral contrast material. Biphasic liver scanning was employed. 5 mm sections were generated. Axial, coronal, and sagittal images are presented. Dose: Total Dose Length Product - DLP [address] Dose Index - CTDIvol(s) 7 mGy. Automated exposure control was utilized for dose reduction. Comparison: 08/29/2019 Findings: There are bilateral pleural effusions, right greater than left. Pacer wires are noted in the heart. Colon is interposed between the liver and right hemidiaphragm. Liver is normal. Calcified stones are noted in the gallbladder. The spleen is unremarkable. The pancreas appears normal. Adrenal glands are unremarkable. Right kidney appears normal. Again noted is a left ureteral stent with hydronephrosis in left kidney. There is a small amount of air in the collecting system of the left kidney. Retroperitoneum is free of adenopathy. Aorta is calcified. The bowel is normal caliber. Moderate fecal material is noted within the colon. The bladder is collapsed by Robertson catheter. The distal end of the ureteral stent can't from the left is noted in the bladder. The bladder wall is thickened and there is a mass within the bladder dome. Air is noted in the bladder. This measures approximately 6.2 x 4.8 x 6.7 cm. Degenerative changes are noted in the spine. Increased density is noted in the subcutaneous soft tissues. Impression: Mass within the bladder increased in size since previous examination. Presumably this represents bladder neoplasm. Air is also noted within the bladder and the possibility of bladder infection or internal fistula to the bladder should be considered. Left hydronephrosis and with air in the left renal collecting system. There is a left ureteral stent. The air likely is coming from the bladder but the possibility of infection again is not excluded. Atherosclerotic change. Degenerative change in the spine. Cholelithiasis. Bilateral pleural effusions, right greater than left. Subcutaneous edema consistent with mild anasarca.l The CT scanner at [facility] is accredited by the [employer] and the scans are performed using protocols designed to limit radiation exposure to as low as reasonably achievable to attain images of sufficient resolution adequate for diagnostic evaluation.
[2020-03-15 12:00] VITALS: BP 148/76
--- NOTE | 2020-03-15 12:47 | Infectious Diseases Prog Note ---
Assessment/Plan 84yo M with bladder cancer who p/w chest pain, found to have elevated troponin and leukocytosis. Afebrile Sepsis Leukocytosis, overall improved but remains elevated- - no abscess on CT -03/14 CT abd/p: Mass within the bladder increased in size since previous examination. Presumably this represents bladder neoplasm. Air is also noted within the bladder and the possibility of bladder infection or internal fistula to the bladder should be considered. Left hydronephrosis and with air in the left renal collecting system. There is a left ureteral stent. The air likely is coming from the bladder but the possibility of infection again is not excluded. Atherosclerotic change. Degenerative change in the spine.Cholelithiasis. Bilateral pleural effusions, right greater than left.Subcutaneous edema consistent with mild anasarca. UTI/pyelonephritis, UA with tnct WBC, UCx >100k ESBL Ec.coli Rapid COVID neg x1 -8.4 CXR: Some crowding of markings remain inthe lung bases likely related to a limited inspiration and low lung volumes. No newalveolar process. CXR unremarkable, satting well on 2L NC R/o bacteremia 03/11 BCx NTD 03/10 BCx NTD NSTEMI w/ elevated troponin, can also be a cause of reactive leukocytosis Bladder cancer Hematuria Plan: Continue Meropenem #4/10-14 for ESBL UTI -03/12 SP IV Vancomycijn #2, Cefepime #2 No diarrhea, but if occurs check C.dif F/u UCx (UA w/ pyuria) F/u BCx Trend resp status Trend leukocytosis daily Monitor CBC, CMP D/w RN Thank you for this consult. [facility] will continue to follow. Subjective Allergies: Coded Allergies: No Known Allergies (Unverified , 04/09/16) afebrile wbc emains on the 20s Bcx NTD Objective Last 24 Hour Vital Signs Date Time Temp Pulse Resp B/P (MAP) Pulse Ox O2 Delivery O2 Flow Rate FiO2 03/15/20 09:00 Room Air 03/15/20 08:55 73 125/62 03/15/20 08:00 99.3 66 20 125/62 (83) 97 03/15/20 08:00 73 03/15/20 04:00 96.4 77 17 131/63 (85) 94 03/15/20 04:00 75 03/15/20 00:00 97.6 68 18 134/64 (87) 100 03/15/20 00:00 60 03/14/20 21:00 Nasal Cannula 2.0 03/14/20 20:14 98 Nasal Cannula 2.0 28 03/14/20 20:00 64 03/14/20 20:00 97.9 69 18 137/61 (86) 100 03/14/20 17:45 72 121/71 03/14/20 16:00 98.7 72 18 121/71 (88) 97 03/14/20 16:00 72 Height (Feet): 5 Height (Inches): 9.00 Weight (Pounds): 153 Gen: NAD HEENT: OP clear, MM dry, CV: RRR Pulm: CTAB anteriorly Abd: Soft, thin, NTND Ext: No c/c/e Skin: No notable skin lesions, rashes or ulcers Laboratory Tests Test 03/14/20 15:55 03/15/20 05:53 POC Whole Blood Glucose 129 MG/DL (74-106) H White Blood Count 23.9 K/UL (4.8-10.8) *H Red Blood Count 3.55 M/UL (4.70-6.10) L Hemoglobin 9.1 G/DL (14.2-18.0) L Hematocrit 28.8 % (42.0-52.0) L Mean Corpuscular Volume 81 FL (80-99) Mean Corpuscular Hemoglobin 25.7 PG (27.0-31.0) L Mean Corpuscular Hemoglobin Concent 31.6 G/DL (32.0-36.0) L Red Cell Distribution Width 16.4 % (11.6-14.8) H Platelet Count 279 K/UL (150-450) Mean Platelet Volume 5.8 FL (6.5-10.1) L Neutrophils (%) (Auto) % (45.0-75.0) Lymphocytes (%) (Auto) % (20.0-45.0) Monocytes (%) (Auto) % (1.0-10.0) Eosinophils (%) (Auto) % (0.0-3.0) Basophils (%) (Auto) % (0.0-2.0) Differential Total Cells Counted 100 Neutrophils % (Manual) 91 % (45-75) H Lymphocytes % (Manual) 7 % (20-45) L Monocytes % (Manual) 2 % (1-10) Eosinophils % (Manual) 0 % (0-3) Basophils % (Manual) 0 % (0-2) Band Neutrophils 0 % (0-8) Platelet Estimate Adequate Platelet Morphology Normal Hypochromasia 2+ Anisocytosis 1+ Sodium Level 140 MMOL/L (136-145) Potassium Level 4.0 MMOL/L (3.5-5.1) Chloride Level 109 MMOL/L (98-107) H Carbon Dioxide Level 24 MMOL/L (21-32) Anion Gap 7 mmol/L (5-15) Blood Urea Nitrogen 15 mg/dL (7-18) Creatinine 1.0 MG/DL (0.55-1.30) Estimat Glomerular Filtration Rate > 60 mL/min (>60) Glucose Level 85 MG/DL (74-106) Calcium Level 8.4 MG/DL (8.5-10.1) L Current Medications Medications (Trade) Dose Ordered Sig/Levi Route PRN Reason Start Time Stop Time Status Last Admin Dose Admin Acetaminophen (Tylenol) 650 mg Q4H PRN ORAL fever (T>100.5F) 03/13/20 04:45 04/09/20 04:44 Aspirin (Ecotrin) 81 mg DAILY ORAL 03/13/20 09:00 04/25/20 12:44 03/14/20 08:21 Atorvastatin Calcium (Lipitor) 20 mg BEDTIME ORAL 03/13/20 21:00 06/09/20 20:59 03/14/20 21:54 Barium Sulfate (Readi-Cat 2) 450 ml NOW PRN ORAL Radiology Procedure 03/14/20 14:15 03/16/20 14:14 Dextrose (Dextrose 50%) 25 ml Q30M PRN IV Hypoglycemia 03/13/20 05:00 06/11/20 04:59 Dextrose (Dextrose 50%) 50 ml Q30M PRN IV Hypoglycemia 03/13/20 05:00 06/08/20 14:29 Finasteride (Proscar) 5 mg DAILY ORAL 03/13/20 09:00 06/09/20 08:59 03/15/20 08:55 Insulin Aspart (NovoLOG) BEFORE MEALS AND HS SUBQ 03/13/20 06:30 06/08/20 16:59 03/14/20 16:49 Iohexol (OMNIPAQUE-300 100ml) 100 ml NOW PRN INJ Radiology Procedure 03/14/20 14:15 03/16/20 14:14 Meropenem 1 gm/ Sodium Chloride 55 ml @ 110 mls/hr Q8HR IVPB 03/14/20 14:00 03/19/20 13:59 03/15/20 05:57 Metoprolol Tartrate (Lopressor) 12.5 mg BID ORAL 03/13/20 09:00 06/08/20 21:59 03/15/20 08:55 Nateglinide (Starlix) 120 mg DAILY ORAL 03/13/20 09:00 04/10/20 08:59 03/15/20 08:55 Nitroglycerin (Ntg) 0.4 mg Q5M PRN SL Prn Chest Pain 03/13/20 04:45 04/09/20 14:29 Ondansetron HCl (Zofran) 4 mg Q6H PRN IVP Nausea & Vomiting 03/13/20 04:45 04/09/20 04:44 Polyethylene Glycol (Miralax) 17 gm DAILYPRN PRN ORAL Constipation 03/13/20 04:45 04/09/20 04:44 Sodium Chloride 1,000 ml @ 100 mls/hr Q10H IVLG 03/13/20 04:45 04/09/20 16:14 03/15/20 03:43 Tamsulosin HCl (Flomax) 0.4 mg BEDTIME ORAL 03/13/20 21:00 04/09/20 20:59 03/14/20 21:53 Temazepam (Restoril) 15 mg HSPRN PRN ORAL Insomnia 03/13/20 14:30 03/17/20 14:29 Tawny Darby M.D. Mar 15, 2020 12:47
--- NOTE | 2020-03-15 12:53 | Pulmonology Progress Note ---
Subjective ROS Limited/Unobtainable: Yes Interval Events: doing better Allergies: Coded Allergies: No Known Allergies (Unverified , 04/09/16) Objective Last 24 Hour Vital Signs Date Time Temp Pulse Resp B/P (MAP) Pulse Ox O2 Delivery O2 Flow Rate FiO2 03/15/20 09:00 Room Air 03/15/20 08:55 73 125/62 03/15/20 08:00 99.3 66 20 125/62 (83) 97 03/15/20 08:00 73 03/15/20 04:00 96.4 77 17 131/63 (85) 94 03/15/20 04:00 75 03/15/20 00:00 97.6 68 18 134/64 (87) 100 03/15/20 00:00 60 03/14/20 21:00 Nasal Cannula 2.0 03/14/20 20:14 98 Nasal Cannula 2.0 28 03/14/20 20:00 64 03/14/20 20:00 97.9 69 18 137/61 (86) 100 03/14/20 17:45 72 121/71 03/14/20 16:00 98.7 72 18 121/71 (88) 97 03/14/20 16:00 72 Intake and Output 03/14/20 03/15/20 19:00 07:00 Intake Total 100 ml 1378 ml Output Total 2300 ml Balance 100 ml -922 ml Intake Oral 140 ml IV Total 100 ml 1238 ml Output Urine Total 2300 ml # Voids 4 # Bowel Movements 1 1 General Appearance: cachetic HEENT: normocephalic, atraumatic Respiratory: chest wall non-tender, lungs clear, normal breath sounds, no respiratory distress Cardiovascular: normal peripheral pulses, normal rate, regular rhythm Abdomen: normal bowel sounds, soft, non tender, no organomegaly Genitourinary: normal external genitalia Extremities: no clubbing Skin: no rash Neurologic: outreach liaison II-XII grossly normal Laboratory Tests 03/14/20 15:55: POC Whole Blood Glucose 129H 03/15/20 05:53: White Blood Count 23.9*H, Red Blood Count 3.55L, Hemoglobin 9.1L, Hematocrit 28.8L, Mean Corpuscular Volume 81, Mean Corpuscular Hemoglobin 25.7L, Mean Corpuscular Hemoglobin Concent 31.6L, Red Cell Distribution Width 16.4H, Platelet Count 279, Mean Platelet Volume 5.8L, Neutrophils (%) (Auto) , Lymphocytes (%) (Auto) , Monocytes (%) (Auto) , Eosinophils (%) (Auto) , Basophils (%) (Auto) , Differential Total Cells Counted 100, Neutrophils % ( Manual) 91H, Lymphocytes % (Manual) 7L, Monocytes % (Manual) 2, Eosinophils % ( Manual) 0, Basophils % (Manual) 0, Band Neutrophils 0, Platelet Estimate Adequate, Platelet Morphology Normal, Hypochromasia 2+, Anisocytosis 1+, Sodium Level 140, Potassium Level 4.0, Chloride Level 109H, Carbon Dioxide Level 24, Anion Gap 7, Blood Urea Nitrogen 15, Creatinine 1.0, Estimat Glomerular Filtration Rate > 60, Glucose Level 85, Calcium Level 8.4L Current Medications Medications (Trade) Dose Ordered Sig/Levi Route PRN Reason Start Time Stop Time Status Last Admin Dose Admin Acetaminophen (Tylenol) 650 mg Q4H PRN ORAL fever (T>100.5F) 03/13/20 04:45 04/09/20 04:44 Aspirin (Ecotrin) 81 mg DAILY ORAL 03/13/20 09:00 04/25/20 12:44 03/14/20 08:21 Atorvastatin Calcium (Lipitor) 20 mg BEDTIME ORAL 03/13/20 21:00 06/09/20 20:59 03/14/20 21:54 Barium Sulfate (Readi-Cat 2) 450 ml NOW PRN ORAL Radiology Procedure 03/14/20 14:15 03/16/20 14:14 Dextrose (Dextrose 50%) 25 ml Q30M PRN IV Hypoglycemia 03/13/20 05:00 06/11/20 04:59 Dextrose (Dextrose 50%) 50 ml Q30M PRN IV Hypoglycemia 03/13/20 05:00 06/08/20 14:29 Finasteride (Proscar) 5 mg DAILY ORAL 03/13/20 09:00 06/09/20 08:59 03/15/20 08:55 Insulin Aspart (NovoLOG) BEFORE MEALS AND HS SUBQ 03/13/20 06:30 06/08/20 16:59 03/14/20 16:49 Iohexol (OMNIPAQUE-300 100ml) 100 ml NOW PRN INJ Radiology Procedure 03/14/20 14:15 03/16/20 14:14 Meropenem 1 gm/ Sodium Chloride 55 ml @ 110 mls/hr Q8HR IVPB 03/14/20 14:00 03/19/20 13:59 03/15/20 05:57 Metoprolol Tartrate (Lopressor) 12.5 mg BID ORAL 03/13/20 09:00 06/08/20 21:59 03/15/20 08:55 Nateglinide (Starlix) 120 mg DAILY ORAL 03/13/20 09:00 04/10/20 08:59 03/15/20 08:55 Nitroglycerin (Ntg) 0.4 mg Q5M PRN SL Prn Chest Pain 03/13/20 04:45 04/09/20 14:29 Ondansetron HCl (Zofran) 4 mg Q6H PRN IVP Nausea & Vomiting 03/13/20 04:45 04/09/20 04:44 Polyethylene Glycol (Miralax) 17 gm DAILYPRN PRN ORAL Constipation 03/13/20 04:45 04/09/20 04:44 Sodium Chloride 1,000 ml @ 100 mls/hr Q10H IVLG 03/13/20 04:45 04/09/20 16:14 03/15/20 03:43 Tamsulosin HCl (Flomax) 0.4 mg BEDTIME ORAL 03/13/20 21:00 04/09/20 20:59 03/14/20 21:53 Temazepam (Restoril) 15 mg HSPRN PRN ORAL Insomnia 03/13/20 14:30 03/17/20 14:29 Assessment/Plan Problems: (1) Urethral fistula (2) UTI (urinary tract infection) (3) MDRO (multiple drug resistant organisms) resistance (4) NSTEMI (non-ST elevated myocardial infarction) (5) Bladder cancer (6) Hematuria (7) Anemia (8) Diabetes mellitus (9) HTN (hypertension) (10) Alzheimer's dementia (11) Chronic cerebrovascular accident (CVA) Assessment/Plan wbc still high less hematuria, continue teli monitoring CT abdomen Impression: Mass within the bladder increased in size since previous examination. Presumably this represents bladder neoplasm. Air is also noted within the bladder and the possibility of bladder infection or internal fistula to the bladder should be considered. anemia w/u decrease iv fluids miller culture sliding scale symptomatic treatment considering the fistula, and enlarging prostate mass. I suggest comfort care and hospice Og Hinkle MD Mar 15, 2020 12:53
--- NOTE | 2020-03-15 13:12 | NUR ---
VARNISH THINNER NOTE SW received a consult for end of life discussion. SW left a vm to pt's son, Vishnu Boyd [phone] for call back. Other emergency contact: Ness Boyd (daughter in law) [phone] Addendum: 03/15/20 at 1401 by STEPHEN RUST SW spoke w/ pt's son, Vishnu Boyd and discussed the hospice care as MD recommended. The son shares he signed the hospice paperwork 3-4 months ago from [facility]. He was unable to recall the name of agency. Pt is in agreement w/ hospice. The son continues to express full code. Notified and CM
[2020-03-15] MEDS ORDERED: NS IV SCH (14:00)
[2020-03-15] MEDS ORDERED: AMINOCAPROIC ACID IV SCH (14:00)
--- NOTE | 2020-03-15 15:34 | NUR ---
SWALLOW STATUS/DYSPHAGIA MANAGEMENT PATIENT CLEARED FOR ST INTERVENTION BY [facility] [employer]. PATIENT RECEIVED SITTING UPRIGHT IN BED. HE WAS AWAKE/ALERT, CONFUSED. BASELINE VITAL SIGNS: ON ROOM AIR: 18 BPM, 02 SAT: 98% PATIENT PRESENTED WITH P.O. TRIALS OF NECTAR THICK LIQUID (4 0Z) PRESENTED VIA SPOON AND 2 0Z PUREE ALSO PRESENTED VIA SPOON IN 5ML AMOUNTS. PATIENT TOLERATED BOTH CONSISTENCIES WITHOUT ANY DIFFICULTY, HOWEVER, AT THE END OF THESE TRIALS, HE BEGAN TO WHEEZE, AND HIS RESPIRATION RATE SPIKED TO 27 BREATHS PER MINUTE. WHEN THE PATIENT WAS ASKED TO TAKE SOME DEEP BREATHS, HE DID NOT APPEAR TO COMPREHEND THE REQUEST AND KEPT WHEEZING. AFTER SEVERAL MINUTES, HIS RESPIRATION RATE RETURNED TO BASELINE. DISCUSSED FINDINGS WITH DONELL/DELISA. SHE STATED THAT SHE WOULD BE FEEDING THE PATIENT DINNER AND IF/WHEN THE PATIENT BECAME SHORT OF BREATH/BEGAN WHEEZING, STOP THE MEAL/LET HIS BREATHING/RESPIRATION RATE SLOW, THEN RESUME MEAL. SHE VERBALIZED UNDERSTANDING.
[2020-03-15 16:00] VITALS: BP 93/55
--- NOTE | 2020-03-15 17:04 | Internal Med Progress Note ---
Subjective Date of Service: Mar 15, 2020 Physician Name Jean-Claude Peter Attending Physician Jaziel Lowe MD Current Medications Medications (Trade) Dose Ordered Sig/Levi Route PRN Reason Start Time Stop Time Status Last Admin Dose Admin Acetaminophen (Tylenol) 650 mg Q4H PRN ORAL fever (T>100.5F) 03/13/20 04:45 04/09/20 04:44 Atorvastatin Calcium (Lipitor) 20 mg BEDTIME ORAL 03/13/20 21:00 06/09/20 20:59 03/14/20 21:54 Barium Sulfate (Readi-Cat 2) 450 ml NOW PRN ORAL Radiology Procedure 03/14/20 14:15 03/16/20 14:14 Dextrose (Dextrose 50%) 25 ml Q30M PRN IV Hypoglycemia 03/13/20 05:00 06/11/20 04:59 Dextrose (Dextrose 50%) 50 ml Q30M PRN IV Hypoglycemia 03/13/20 05:00 06/08/20 14:29 Finasteride (Proscar) 5 mg DAILY ORAL 03/13/20 09:00 06/09/20 08:59 03/15/20 08:55 Insulin Aspart (NovoLOG) BEFORE MEALS AND HS SUBQ 03/13/20 06:30 06/08/20 16:59 03/14/20 16:49 Iohexol (OMNIPAQUE-300 100ml) 100 ml NOW PRN INJ Radiology Procedure 03/14/20 14:15 03/16/20 14:14 Meropenem 1 gm/ Sodium Chloride 55 ml @ 110 mls/hr Q8HR IVPB 03/14/20 14:00 03/19/20 13:59 03/15/20 13:30 Metoprolol Tartrate (Lopressor) 12.5 mg BID ORAL 03/13/20 09:00 06/08/20 21:59 03/15/20 08:55 Nateglinide (Starlix) 120 mg DAILY ORAL 03/13/20 09:00 04/10/20 08:59 03/15/20 08:55 Nitroglycerin (Ntg) 0.4 mg Q5M PRN SL Prn Chest Pain 03/13/20 04:45 04/09/20 14:29 Ondansetron HCl (Zofran) 4 mg Q6H PRN IVP Nausea & Vomiting 03/13/20 04:45 04/09/20 04:44 Polyethylene Glycol (Miralax) 17 gm DAILYPRN PRN ORAL Constipation 03/13/20 04:45 04/09/20 04:44 Sodium Chloride 1,000 ml @ 100 mls/hr Q10H IVLG 03/13/20 04:45 04/09/20 16:14 03/15/20 13:29 Tamsulosin HCl (Flomax) 0.4 mg BEDTIME ORAL 03/13/20 21:00 04/09/20 20:59 03/14/20 21:53 Temazepam (Restoril) 15 mg HSPRN PRN ORAL Insomnia 03/13/20 14:30 03/17/20 14:29 Allergies: Coded Allergies: No Known Allergies (Unverified , 04/09/16) Subjective 84 YO M with a history of bladder cancer admitted with chest pain. Cover for Int Med-DR Lowe. Tele Objective Last Vital Signs Date Time Temp Pulse Resp B/P (MAP) Pulse Ox O2 Delivery O2 Flow Rate FiO2 03/15/20 16:00 97.6 76 21 93/55 (68) 98 03/15/20 09:00 Room Air 03/14/20 21:00 2.0 03/14/20 20:14 28 Laboratory Tests Test 03/15/20 05:53 White Blood Count 23.9 K/UL (4.8-10.8) *H Red Blood Count 3.55 M/UL (4.70-6.10) L Hemoglobin 9.1 G/DL (14.2-18.0) L Hematocrit 28.8 % (42.0-52.0) L Mean Corpuscular Volume 81 FL (80-99) Mean Corpuscular Hemoglobin 25.7 PG (27.0-31.0) L Mean Corpuscular Hemoglobin Concent 31.6 G/DL (32.0-36.0) L Red Cell Distribution Width 16.4 % (11.6-14.8) H Platelet Count 279 K/UL (150-450) Mean Platelet Volume 5.8 FL (6.5-10.1) L Neutrophils (%) (Auto) % (45.0-75.0) Lymphocytes (%) (Auto) % (20.0-45.0) Monocytes (%) (Auto) % (1.0-10.0) Eosinophils (%) (Auto) % (0.0-3.0) Basophils (%) (Auto) % (0.0-2.0) Differential Total Cells Counted 100 Neutrophils % (Manual) 91 % (45-75) H Lymphocytes % (Manual) 7 % (20-45) L Monocytes % (Manual) 2 % (1-10) Eosinophils % (Manual) 0 % (0-3) Basophils % (Manual) 0 % (0-2) Band Neutrophils 0 % (0-8) Platelet Estimate Adequate Platelet Morphology Normal Hypochromasia 2+ Anisocytosis 1+ Sodium Level 140 MMOL/L (136-145) Potassium Level 4.0 MMOL/L (3.5-5.1) Chloride Level 109 MMOL/L (98-107) H Carbon Dioxide Level 24 MMOL/L (21-32) Anion Gap 7 mmol/L (5-15) Blood Urea Nitrogen 15 mg/dL (7-18) Creatinine 1.0 MG/DL (0.55-1.30) Estimat Glomerular Filtration Rate > 60 mL/min (>60) Glucose Level 85 MG/DL (74-106) Calcium Level 8.4 MG/DL (8.5-10.1) L Intake and Output 03/14/20 03/15/20 19:00 07:00 Intake Total 100 ml 1378 ml Output Total 2300 ml Balance 100 ml -922 ml Intake Oral 140 ml IV Total 100 ml 1238 ml Output Urine Total 2300 ml # Voids 4 # Bowel Movements 1 1 Objective PHYSICAL EXAMINATION: GENERAL: The patient is a well-developed and well-nourished male, in no apparent distress. HEENT: Eyes, pupils are equal and responsive to light and accommodation. Extraocular movements are intact. NECK: Supple without lymphadenopathy. CHEST: Lungs are clear to auscultation bilaterally without wheezes or rales. CARDIOVASCULAR: Regular rhythm and rate. S1, S2 are normal without murmurs, rubs, or gallops. ABDOMEN: Soft, nontender, and nondistended. Positive bowel sounds. No evidence of hepatosplenomegaly. Currently, no rebound or guarding noted. EXTREMITIES: Negative for clubbing, cyanosis, or edema. RECTAL/GENITAL: Not performed. NEUROLOGIC: Cranial nerves II through XII are grossly intact without focal deficits. Motor strength is 5/5 bilaterally. Deep tendon reflexes are 2+ plantar. Assessment/Plan Assessment/Plan ASSESSMENT: This is an 84-year-old male. 1. Chest pain. 2. Elevated troponin level. 3. Bladder cancer. 4. Gastritis. 5. Hypertension. 6. Diabetes type 2. 7. Atrioventricular conduction defect. 8. Alzheimer's dementia. 9. Cerebrovascular disease. 10. Right hemiplegia. 11. Pacemaker in situ. 12. Urinary tract infection=ESBL E. Coli 13. Persistant leukocytosis TREATMENT: 1. Chest pain/elevated troponin. A Cardiology consultation has been obtained with Dr. Nj Valenzuela. We will follow recommendations of Cardiology. 2. Bladder cancer. CT=bladder mass increased in size from prior. Urology= Dr. Macho Allen. The patient is status post transurethral resection of bladder tumor x2. We will follow recommendations of Urology. 3. Gastritis. Continue Protonix as above. 4. Hypertension. 5. Diabetes type 2. A NovoLog sliding scale has been instituted. 6. Atrioventricular conduction defect. The patient is status post pacemaker implantation. 7. Alzheimer's dementia. 8. Cerebrovascular disease, status post cerebrovascular accident. 9. Right hemiplegia. 10. ABX=meropenem per ID=Jean-Claude Mcleod MD Mar 15, 2020 17:04
--- NOTE | 2020-03-15 17:39 | Cardiology Progress Note ---
Assessment/Plan Assessment/Plan 1. Myocardial infarction, possibly late presentation of ST-elevation. 2. Severe anemia.etiology not yet apparent 3. Hematuria. 4. History of bladder tumor status post recent treatment in November. 5. Dementia. 6. Reported history of atrial fibrillation. 7. History of CVA. 8. Leukocytosis persistent no afib over nite wbc still elevated possible but very unusual to be related to mi low grade fever sinus pac, v sensed v paced previously echo personally reviewed , the inferior wall endocardium is poorly defined but part of the post wall is hypokinetic , ivc dilated , pacing wire noted stool for ob stool ob neg x2 off anticoagulation due to anemia Ecotrin low dose ldh elevated now on tele Subjective Respiratory: Reports: shortness of breath; Denies: cough Gastrointestinal/Abdominal: Reports: abdominal pain - occaional Genitourinary: Reports: other - hernandez in place draining bloody urination Objective Last 24 Hour Vital Signs Date Time Temp Pulse Resp B/P (MAP) Pulse Ox O2 Delivery O2 Flow Rate FiO2 03/15/20 16:00 97.6 76 21 93/55 (68) 98 03/15/20 16:00 80 03/15/20 12:00 97.1 60 21 148/76 (100) 98 03/15/20 12:00 71 03/15/20 09:00 Room Air 03/15/20 08:55 73 125/62 03/15/20 08:00 99.3 66 20 125/62 (83) 97 03/15/20 08:00 73 03/15/20 04:00 96.4 77 17 131/63 (85) 94 03/15/20 04:00 75 03/15/20 00:00 97.6 68 18 134/64 (87) 100 03/15/20 00:00 60 03/14/20 21:00 Nasal Cannula 2.0 03/14/20 20:14 98 Nasal Cannula 2.0 28 03/14/20 20:00 64 03/14/20 20:00 97.9 69 18 137/61 (86) 100 03/14/20 17:45 72 121/71 General Appearance: no apparent distress, alert Neck: supple Cardiovascular: normal rate Respiratory/Chest: lungs clear Abdomen: normal bowel sounds, non tender, soft Extremities: no swelling Intake and Output 03/14/20 03/15/20 19:00 07:00 Intake Total 100 ml 1378 ml Output Total 2300 ml Balance 100 ml -922 ml Intake Oral 140 ml IV Total 100 ml 1238 ml Output Urine Total 2300 ml # Voids 4 # Bowel Movements 1 1 Laboratory Tests Test 03/15/20 05:53 White Blood Count 23.9 K/UL (4.8-10.8) *H Red Blood Count 3.55 M/UL (4.70-6.10) L Hemoglobin 9.1 G/DL (14.2-18.0) L Hematocrit 28.8 % (42.0-52.0) L Mean Corpuscular Volume 81 FL (80-99) Mean Corpuscular Hemoglobin 25.7 PG (27.0-31.0) L Mean Corpuscular Hemoglobin Concent 31.6 G/DL (32.0-36.0) L Red Cell Distribution Width 16.4 % (11.6-14.8) H Platelet Count 279 K/UL (150-450) Mean Platelet Volume 5.8 FL (6.5-10.1) L Neutrophils (%) (Auto) % (45.0-75.0) Lymphocytes (%) (Auto) % (20.0-45.0) Monocytes (%) (Auto) % (1.0-10.0) Eosinophils (%) (Auto) % (0.0-3.0) Basophils (%) (Auto) % (0.0-2.0) Differential Total Cells Counted 100 Neutrophils % (Manual) 91 % (45-75) H Lymphocytes % (Manual) 7 % (20-45) L Monocytes % (Manual) 2 % (1-10) Eosinophils % (Manual) 0 % (0-3) Basophils % (Manual) 0 % (0-2) Band Neutrophils 0 % (0-8) Platelet Estimate Adequate Platelet Morphology Normal Hypochromasia 2+ Anisocytosis 1+ Sodium Level 140 MMOL/L (136-145) Potassium Level 4.0 MMOL/L (3.5-5.1) Chloride Level 109 MMOL/L (98-107) H Carbon Dioxide Level 24 MMOL/L (21-32) Anion Gap 7 mmol/L (5-15) Blood Urea Nitrogen 15 mg/dL (7-18) Creatinine 1.0 MG/DL (0.55-1.30) Estimat Glomerular Filtration Rate > 60 mL/min (>60) Glucose Level 85 MG/DL (74-106) Calcium Level 8.4 MG/DL (8.5-10.1) Nj Vallecillo MD Mar 15, 2020 17:39
--- NOTE | 2020-03-15 19:16 | NUR ---
NURSE HAND-OFF REPORT: Important Events on Shift: None Patient Status: stable Diet: consistent carb finely chopped, nectar thick Pending Orders: none Pending Results/Labs none Pending MD notification Latest Vital Signs: Temperature 97.6 , Pulse 80 , B/P 93 /55 , Respiratory Rate 21 , O2 SAT 98 , Room Air, O2 Flow Rate 2.0 . Vital Sign Comment: none EKG Rhythm: A-Paced Rhythm change?: MD Notified?: - MD Response: Latest Damon Fall Score: 50 Fall Risk: High Risk Safety Measures: Call light Within Reach, Bed Alarm Zone 1, Side Rails Side Rails x3, Bed position Low and Locked. Fall Precautions: Yellow Socks Yellow Gown Door Sign Patient Fall Education Report given to Pema RN/ Isabelle MARLEY.
--- NOTE | 2020-03-15 19:23 | NUR ---
NURSE NOTES: Report received from Mehnaz MARLEY, Patient was awake resting at high-fowlers comfortably in bed. IV on left forearm intact and patent running NS at 100ml/hr as ordered. No erythema or bleeding noted. A/O x 1-2 able to make needs known. Robertson catheter draining reddish urine to gravity. Bed at lowest position, brakes on, siderails up x 3. Call light with in reach. Patient educated to call nurse for assistance Will continue plan of care.
[2020-03-15 20:00] VITALS: BP 125/55
[2020-03-15] MEDS: Tamsulosin 0.4mg cap ORAL SCH (21:09)
[2020-03-15] MEDS: Atorvastatin 20mg tab ORAL SCH (21:09)
--- NOTE | 2020-03-15 22:45 | Consultation ---
DATE OF CONSULTATION: 03/15/2020 CONSULTING PHYSICIAN: Macho Allen MD. REFERRING PHYSICIAN: Jean-Claude Peter MD. REASON FOR CONSULTATION: Evaluation of bladder cancer and hematuria. HISTORY OF PRESENT ILLNESS: This is an 84-year-old gentleman. He is known to me from previous evaluations. The patient has a history of bladder cancer with a tumor obstructing the left ureteral orifice and chronic left hydronephrosis. He has had previous resection and ureteral stents. Most recently, he had a cystoscopy with resection of tumor back in November of this year at which time the left ureteral stent was exchanged. 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 The patient was recommended to have medical oncology evaluation for chemotherapy. However, I am not sure if he has had any followup. He was recently admitted to the hospital because of atypical chest pain, was noted to be severely anemic. He was also noted to have gross hematuria. He has required blood transfusion and apparently he has had about three units by now. He has persistent hematuria. Apparently, he was on anticoagulation with aspirin up until a couple days ago and the aspirin has been held, this was this was held two days ago. Followup Urology evaluation has been requested. PAST MEDICAL HISTORY: Significant for above also history of hypertension, diabetes, dementia, CVA, hemiplegia. PAST SURGICAL HISTORY: As above, also pacemaker placement. He has had previous nephrostomy. MEDICATIONS: Current medication list in the hospital was reviewed. He is currently on meropenem, Lipitor, Flomax, Restoril, Proscar, Lopressor, Starlix, NovoLog, nitroglycerin, Zofran, MiraLAX. ALLERGIES: No known drug allergies. SOCIAL HISTORY: He is a resident of a jail. REVIEW OF SYSTEMS: As above. FAMILY HISTORY: Noncontributory. PHYSICAL EXAMINATION: GENERAL: This is an elderly male cachectic. VITAL SIGNS: Temperature is 97.6, pulse is 76, blood pressure is 93/55, respirations . LUNGS: He is audibly wheezing. ABDOMEN: Soft. BACK: No CVA tenderness. GENITOURINARY: Reveals 16-Sammarinese Robertson in place. Urine is grossly bloody. LABORATORY DATA: UA on admission showed 4+ protein, too numerous to count rbc's, 20 to 30 wbc's. His urine culture from the admission showed ESBL E coli. He has had blood cultures that are negative at 72 hours. His BUN is 15, creatinine 1.0. White count is 23.9, hemoglobin 9.1, and platelets are 279. PT is 11.7 with INR 1.1. DIAGNOSTIC IMAGING STUDIES: The patient had a CT scan of the abdomen and pelvis, there was mention of a mass within the bladder which has increased in size. There was left hydronephrosis with some air noted in the collecting system. There is a left ureteral stent. IMPRESSION: 1. Gross hematuria. 2. Bladder cancer history with enlarging bladder mass. 3. Left-sided hydro, which is chronic. 4. BPH history. 5. Urinary retention. 6. UTI. 7. Proteinuria. 8. Neurogenic bladder. PLAN AND DISCUSSION: The patient again does have a history of advanced bladder cancer. He has hematuria which is presumably secondary to the bladder cancer and also urinary tract infection. He had anemia on admission. He has been transfused. His hemoglobin is relatively stable now. He still has some oozing. I did personally removed the old Robertson catheter. The urethra was gently dilated and I placed a new 24-Sammarinese 3-way catheter and was started on slow CBI. I did hand irrigate the Robertson, did not see any major clots. At this time, the patient will be maintained on slow CBI. This was discussed with the nursing staff extensively. He was on aspirin until two days ago, which has been held and at this point because of his bleeding in the urine, I do not think he should be anticoagulated. The patient will be monitored clinically and we have to see what the family desires are. I understand he is being considered for hospice. At some point, if the bleeding worsens and the family desires, he may need to have resection or fulguration of the tumor if needed; however, at this time, he does not appear to be a good surgical candidate. Macho Allen M.D. DR: Oscar JOB#: [id number] CC:
[2020-03-16] VITALS (7 sets, daily range): BP systolic 125–135; BP diastolic 54–71
--- NOTE | 2020-03-16 02:30 | NUR ---
NURSE NOTES: Patient is resting comfortably in bed sleeping at this time. No sign of distress noted. Robertson catheter is patient irrigating and draining well to gravity per MD order. Will continue to monitor.
[2020-03-16] MEDS: Meropenem 1gm/NS 55ml IVPB SCH ×6 (05:21→21:01)
[2020-03-16] MEDS: NovoLOG Insulin Flexpen SUBQ SCH ×4 (05:36→21:00)
[2020-03-16 07:16] LABS: HEMATOCRIT 30.3 % (42.0-52.0); HEMOGLOBIN 9.5 G/DL (14.2-18.0); MEAN CORPUSCULAR VOLUME 81 FL (80-99); PLATELET COUNT 292 K/UL (150-450); RED BLOOD COUNT 3.72 M/UL (4.70-6.10); RED CELL DISTRIBUTION WIDTH 16.4 % (11.6-14.8)
--- NOTE | 2020-03-16 07:25 | Urology Progress Note ---
Assessment/Plan Assessment/Plan: 1. Gross hematuria. 2. Bladder cancer history with enlarging bladder mass. 3. Left-sided hydro, which is chronic. 4. BPH history. 5. Urinary retention. 6. UTI. 7. Proteinuria. 8. Neurogenic bladder. maintain hernandez, 3-way placed 03/15 CBI, titrate rate to keep clear hernandez hand irrigated and do PRN no sig clots noted abx as ordered monitor h/h off ASA since 03/13 flomax and proscar consider cysto if feasible med/onc eval f/u on last blood cx d/w nursing staff d/w primary service Subjective Allergies: Coded Allergies: No Known Allergies (Unverified , 04/09/16) Subjective all noted, comfortable CBI running overnight Objective Last 24 Hour Vital Signs Date Time Temp Pulse Resp B/P (MAP) Pulse Ox O2 Delivery O2 Flow Rate FiO2 03/16/20 04:00 97.1 60 18 135/54 (81) 99 03/16/20 04:00 62 03/16/20 00:00 97.7 60 15 125/56 (79) 100 03/16/20 00:00 64 03/15/20 21:00 Nasal Cannula 2.0 03/15/20 20:23 99 Nasal Cannula 2.0 28 03/15/20 20:00 67 03/15/20 20:00 98.1 63 16 125/55 (78) 98 03/15/20 16:00 97.6 76 21 93/55 (68) 98 03/15/20 16:00 80 03/15/20 12:00 97.1 60 21 148/76 (100) 98 03/15/20 12:00 71 03/15/20 09:00 Room Air 03/15/20 08:55 73 125/62 03/15/20 08:00 99.3 66 20 125/62 (83) 97 03/15/20 08:00 73 Intake and Output 03/15/20 03/16/20 19:00 07:00 Intake Total 820 ml 3985 ml Output Total 1000 ml 4200 ml Balance -180 ml -215 ml Intake Oral 720 ml 30 ml IV Total 100 ml 955 ml Other 3000 ml Output Urine Total 1000 ml Other 4200 ml # Bowel Movements 1 Microbiology Date/Time Source Procedure Growth Status 03/11/20 09:30 Blood Blood Culture - Preliminary NO GROWTH AFTER 4 DAYS Resulted 03/12/20 06:05 Nasal Nares MRSA Culture - Final NO METHICILLIN RESISTANT STAPH AUREUS... Complete 03/10/20 18:30 Urine,Clean Catch Urine Culture - Final Escherichia Coli - Esbl Complete 03/12/20 04:00 Rectum VRE Culture - Final Enterococcus Faecalis - Vre Complete Current Medications Medications (Trade) Dose Ordered Sig/Levi Route PRN Reason Start Time Stop Time Status Last Admin Dose Admin Acetaminophen (Tylenol) 650 mg Q4H PRN ORAL fever (T>100.5F) 03/13/20 04:45 04/09/20 04:44 03/15/20 21:10 Atorvastatin Calcium (Lipitor) 20 mg BEDTIME ORAL 03/13/20 21:00 06/09/20 20:59 03/15/20 21:09 Barium Sulfate (Readi-Cat 2) 450 ml NOW PRN ORAL Radiology Procedure 03/14/20 14:15 03/16/20 14:14 Dextrose (Dextrose 50%) 25 ml Q30M PRN IV Hypoglycemia 03/13/20 05:00 06/11/20 04:59 Dextrose (Dextrose 50%) 50 ml Q30M PRN IV Hypoglycemia 03/13/20 05:00 06/08/20 14:29 Finasteride (Proscar) 5 mg DAILY ORAL 03/13/20 09:00 06/09/20 08:59 03/15/20 08:55 Insulin Aspart (NovoLOG) BEFORE MEALS AND HS SUBQ 03/13/20 06:30 06/08/20 16:59 03/15/20 17:03 Iohexol (OMNIPAQUE-300 100ml) 100 ml NOW PRN INJ Radiology Procedure 03/14/20 14:15 03/16/20 14:14 Meropenem 1 gm/ Sodium Chloride 55 ml @ 110 mls/hr Q8HR IVPB 03/14/20 14:00 03/19/20 13:59 03/16/20 05:21 Metoprolol Tartrate (Lopressor) 12.5 mg BID ORAL 03/13/20 09:00 06/08/20 21:59 03/15/20 08:55 Nateglinide (Starlix) 120 mg DAILY ORAL 03/13/20 09:00 04/10/20 08:59 03/15/20 08:55 Nitroglycerin (Ntg) 0.4 mg Q5M PRN SL Prn Chest Pain 03/13/20 04:45 04/09/20 14:29 Ondansetron HCl (Zofran) 4 mg Q6H PRN IVP Nausea & Vomiting 03/13/20 04:45 04/09/20 04:44 Polyethylene Glycol (Miralax) 17 gm DAILYPRN PRN ORAL Constipation 03/13/20 04:45 04/09/20 04:44 Sodium Chloride 1,000 ml @ 100 mls/hr Q10H IVLG 03/13/20 04:45 04/09/20 16:14 03/16/20 00:27 Tamsulosin HCl (Flomax) 0.4 mg BEDTIME ORAL 03/13/20 21:00 04/09/20 20:59 03/15/20 21:09 Temazepam (Restoril) 15 mg HSPRN PRN ORAL Insomnia 03/13/20 14:30 03/17/20 14:29 Laboratory Tests 03/16/20 05:35: White Blood Count [Pending], Red Blood Count [Pending], Hemoglobin [Pending], Hematocrit [Pending], Mean Corpuscular Volume [Pending], Mean Corpuscular Hemoglobin [Pending], Mean Corpuscular Hemoglobin Concent [Pending], Red Cell Distribution Width [Pending], Platelet Count [Pending], Mean Platelet Volume [ Pending], Neutrophils (%) (Auto) [Pending], Lymphocytes (%) (Auto) [Pending], Monocytes (%) (Auto) [Pending], Eosinophils (%) (Auto) [Pending], Basophils (%) (Auto) [Pending], Erythrocyte Sedimentation Rate [Pending], Reticulocyte Count [ Pending], Sodium Level [Pending], Potassium Level [Pending], Chloride Level [ Pending], Carbon Dioxide Level [Pending], Blood Urea Nitrogen [Pending], Creatinine [Pending], Estimat Glomerular Filtration Rate [Pending], Glucose Level [Pending], Calcium Level [Pending], Phosphorus Level [Pending], Magnesium Level [Pending], Total Bilirubin [Pending], Aspartate Amino Transf (AST/SGOT) [ Pending], Alanine Aminotransferase (ALT/SGPT) [Pending], Alkaline Phosphatase [ Pending], Lactate Dehydrogenase [Pending], Total Protein [Pending], Albumin [ Pending], Globulin [Pending] Height (Feet): 5 Height (Inches): 9.00 Weight (Pounds): 161 Objective exam stable hernandez indwelling, CBI moderate rate urine blood-tinged Tiffany,Macho Oliver MD Mar 16, 2020 07:25
--- NOTE | 2020-03-16 07:25 | Cardiology Progress Note ---
Assessment/Plan Assessment/Plan 1. Myocardial infarction, possibly late presentation of ST-elevation. 2. Severe anemia.etiology not yet apparent 3. Hematuria. 4. History of bladder tumor status post recent treatment in November. 5. Dementia. 6. Reported history of atrial fibrillation. 7. History of CVA. 8. Leukocytosis persistent 9. bladdder mass with fistual no afib over nite wbc still elevated possible but very unusual to be related to mi no fever sinus pac, v sensed v paced previously echo personally reviewed , the inferior wall endocardium is poorly defined but part of the post wall is hypokinetic , ivc dilated , pacing wire noted stool for ob stool ob neg x2 off anticoagulation due to anemia likely form hematuria Ecotrin low dose ldh elevated now on tele Subjective Cardiovascular: Denies: chest pain, lightheadedness, palpitations Respiratory: Denies: shortness of breath Gastrointestinal/Abdominal: Denies: abdominal pain Genitourinary: Reports: other - hernandez Objective Last 24 Hour Vital Signs Date Time Temp Pulse Resp B/P (MAP) Pulse Ox O2 Delivery O2 Flow Rate FiO2 03/16/20 04:00 97.1 60 18 135/54 (81) 99 03/16/20 04:00 62 03/16/20 00:00 97.7 60 15 125/56 (79) 100 03/16/20 00:00 64 03/15/20 21:00 Nasal Cannula 2.0 03/15/20 20:23 99 Nasal Cannula 2.0 28 03/15/20 20:00 67 03/15/20 20:00 98.1 63 16 125/55 (78) 98 03/15/20 16:00 97.6 76 21 93/55 (68) 98 03/15/20 16:00 80 03/15/20 12:00 97.1 60 21 148/76 (100) 98 03/15/20 12:00 71 03/15/20 09:00 Room Air 03/15/20 08:55 73 125/62 03/15/20 08:00 99.3 66 20 125/62 (83) 97 03/15/20 08:00 73 General Appearance: no apparent distress, alert Neck: supple Cardiovascular: regular rhythm Respiratory/Chest: chest wall non-tender Abdomen: non tender Extremities: no swelling Intake and Output 03/15/20 03/16/20 19:00 07:00 Intake Total 820 ml 3985 ml Output Total 1000 ml 4200 ml Balance -180 ml -215 ml Intake Oral 720 ml 30 ml IV Total 100 ml 955 ml Other 3000 ml Output Urine Total 1000 ml Other 4200 ml # Bowel Movements 1 Laboratory Tests Test 03/16/20 05:35 White Blood Count Pending Red Blood Count Pending Hemoglobin Pending Hematocrit Pending Mean Corpuscular Volume Pending Mean Corpuscular Hemoglobin Pending Mean Corpuscular Hemoglobin Concent Pending Red Cell Distribution Width Pending Platelet Count Pending Mean Platelet Volume Pending Neutrophils (%) (Auto) Pending Lymphocytes (%) (Auto) Pending Monocytes (%) (Auto) Pending Eosinophils (%) (Auto) Pending Basophils (%) (Auto) Pending Erythrocyte Sedimentation Rate Pending Reticulocyte Count Pending Sodium Level Pending Potassium Level Pending Chloride Level Pending Carbon Dioxide Level Pending Blood Urea Nitrogen Pending Creatinine Pending Estimat Glomerular Filtration Rate Pending Glucose Level Pending Calcium Level Pending Phosphorus Level Pending Magnesium Level Pending Total Bilirubin Pending Aspartate Amino Transf (AST/SGOT) Pending Alanine Aminotransferase (ALT/SGPT) Pending Alkaline Phosphatase Pending Lactate Dehydrogenase Pending Total Protein Pending Albumin Pending Globulin Pending Nj Valenzuela MD Mar 16, 2020 07:25
[2020-03-16 07:27] LABS: ALANINE AMINOTRANSFERASE 15 U/L (12-78); ALBUMIN 1.8 G/DL (3.4-5.0); ALBUMIN/GLOBULIN RATIO 0.4 (1.0-2.7); ALKALINE PHOSPHATASE 74 U/L (46-116); ANION GAP 6 mmol/L (5-15); ASPARTATE AMINO TRANSFERASE 15 U/L (15-37); BILIRUBIN,TOTAL 0.5 MG/DL (0.2-1.0); BLOOD UREA NITROGEN 15 mg/dL (7-18); CALCIUM 8.6 MG/DL (8.5-10.1); CARBON DIOXIDE 24 MMOL/L (21-32); CHLORIDE 107 MMOL/L (98-107); LACTATE DEHYDROGENASE 174 U/L (81-234); PHOSPHORUS 2.2 MG/DL (2.5-4.9); POTASSIUM 3.9 MMOL/L (3.5-5.1); SODIUM 137 MMOL/L (136-145)
[2020-03-16 07:38] LABS: WHITE BLOOD COUNT 23.5 K/UL (4.8-10.8)
--- NOTE | 2020-03-16 07:49 | NUR ---
NURSE HAND-OFF REPORT: Important Events on Shift: CBI introduced and implemented Patient Status: stable Diet: ccho medium mech soft finely chopped thick nectar liquid Pending Orders: xylocaine jelly for pain in penile region Pending Results/Labs: y Pending MD notification: Latest Vital Signs: Temperature 97.1 , Pulse 62 , B/P 135 /54 , Respiratory Rate 18 , O2 SAT 99 , Nasal Cannula, O2 Flow Rate 2.0 . Vital Sign Comment: EKG Rhythm: A pacing, SR, V-pacing, AV-pacing Rhythm change?: between 1 avb and a/v pacing MD Notified?: previously notified MD Response: Latest Damon Fall Score: 50 Fall Risk: High Risk Safety Measures: Call light Within Reach, Bed Alarm Zone 1, Side Rails Side Rails x3, Bed position Low and Locked. Fall Precautions:y Yellow Socks y Yellow Gown y Door Sign y Patient Fall Education y Report given to Tahir/DONELL Putnam.
[2020-03-16] MEDS ORDERED: Lidocaine HCl 2% Jelly 6ml Tube TOPIC PRN (08:00)
--- NOTE | 2020-03-16 08:49 | NUR ---
NURSE NOTES: Given report last minute, and because pt were swapt. pt on school lunch monitor no signs of cardia or respiratory distress. pt bed in lowest position and call light within reach. pt has a hernandez that is patent and is on continuos irrigation. Will continue to monitor pt.
[2020-03-16] MEDS: Metoprolol Tartrate 12.5mg TAB ORAL SCH ×2 (10:05→18:09)
--- NOTE | 2020-03-16 11:35 | Consultation ---
History of Present Illness General Chief Complaint: Chest Pain Referring physician: Dr. Peter Reason for Consultation: Leukocytosis Present Illness Allergies: Coded Allergies: No Known Allergies (Unverified , 04/09/16) Medication History Scheduled Cranberry Extract (Cranberry), 500 MG PO DAILY, (Reported) Finasteride (Finasteride), 5 MG ORAL DAILY Hydrocodone Bit/Acetaminophen (Hydrocodon-Acetaminophen 5-300), 1 EACH PO EVERY 6 HOURS, (Reported) Insulin Aspart (Novolog Flexpen), 0 UNITS SUBQ BEFORE MEALS AND HS Nateglinide (Starlix), 120 MG ORAL DAILY, (Reported) Tamsulosin HCl (Flomax), 0.4 MG ORAL BEDTIME Scheduled PRN Acetaminophen* (Acetaminophen 325MG Tablet*), 650 MG ORAL Q6HR PRN for Mild Pain (Pain Scale 1-3), (Reported) Acetaminophen* (Acetaminophen 325MG Tablet*), 650 MG ORAL Q6HR PRN for Temp > 100.5, (Reported) Ondansetron Odt* (Zofran Odt*), 8 MG ORAL Q8HR PRN for Nausea & Vomiting, ( Reported) Discontinued Medications Cran/Vitc/Mannose/Inulin/Brom (Uti-Stat Liquid), 3,875 MG PO DAILY, (Reported) Discontinued Reason: Prescription changed Patient History Healthcare decision maker Resuscitation status Advanced Directive on File Physical Exam Last 24 Hour Vital Signs Date Time Temp Pulse Resp B/P (MAP) Pulse Ox O2 Delivery O2 Flow Rate FiO2 03/16/20 10:20 Room Air 03/16/20 10:05 89 134/60 03/16/20 08:49 99 Room Air 21 03/16/20 08:00 81 03/16/20 08:00 98.6 89 18 134/60 (84) 97 03/16/20 04:00 97.1 60 18 135/54 (81) 99 03/16/20 04:00 62 03/16/20 00:00 97.7 60 15 125/56 (79) 100 03/16/20 00:00 64 03/15/20 21:00 Nasal Cannula 2.0 03/15/20 20:23 99 Nasal Cannula 2.0 28 03/15/20 20:00 67 03/15/20 20:00 98.1 63 16 125/55 (78) 98 03/15/20 16:00 97.6 76 21 93/55 (68) 98 03/15/20 16:00 80 03/15/20 12:00 97.1 60 21 148/76 (100) 98 03/15/20 12:00 71 Intake and Output 03/15/20 03/16/20 19:00 07:00 Intake Total 820 ml 3985 ml Output Total 1000 ml 4200 ml Balance -180 ml -215 ml Intake Oral 720 ml 30 ml IV Total 100 ml 955 ml Other 3000 ml Output Urine Total 1000 ml Other 4200 ml # Bowel Movements 1 Laboratory Tests Test 03/16/20 05:35 White Blood Count 23.5 K/UL (4.8-10.8) *H Red Blood Count 3.72 M/UL (4.70-6.10) L Hemoglobin 9.5 G/DL (14.2-18.0) L Hematocrit 30.3 % (42.0-52.0) L Mean Corpuscular Volume 81 FL (80-99) Mean Corpuscular Hemoglobin 25.6 PG (27.0-31.0) L Mean Corpuscular Hemoglobin Concent 31.4 G/DL (32.0-36.0) L Red Cell Distribution Width 16.4 % (11.6-14.8) H Platelet Count 292 K/UL (150-450) Mean Platelet Volume 5.7 FL (6.5-10.1) L Neutrophils (%) (Auto) % (45.0-75.0) Lymphocytes (%) (Auto) % (20.0-45.0) Monocytes (%) (Auto) % (1.0-10.0) Eosinophils (%) (Auto) % (0.0-3.0) Basophils (%) (Auto) % (0.0-2.0) Differential Total Cells Counted 100 Neutrophils % (Manual) 89 % (45-75) H Lymphocytes % (Manual) 8 % (20-45) L Monocytes % (Manual) 2 % (1-10) Eosinophils % (Manual) 0 % (0-3) Basophils % (Manual) 1 % (0-2) Band Neutrophils 0 % (0-8) Platelet Estimate Adequate Platelet Morphology Normal Hypochromasia 2+ Anisocytosis 1+ Erythrocyte Sedimentation Rate 106 MM/HR (0-20) H Reticulocyte Count 1.8 % (0.5-2.0) Sodium Level 137 MMOL/L (136-145) Potassium Level 3.9 MMOL/L (3.5-5.1) Chloride Level 107 MMOL/L (98-107) Carbon Dioxide Level 24 MMOL/L (21-32) Anion Gap 6 mmol/L (5-15) Blood Urea Nitrogen 15 mg/dL (7-18) Creatinine 1.0 MG/DL (0.55-1.30) Estimat Glomerular Filtration Rate > 60 mL/min (>60) Glucose Level 103 MG/DL (74-106) Calcium Level 8.6 MG/DL (8.5-10.1) Phosphorus Level 2.2 MG/DL (2.5-4.9) L Magnesium Level 1.6 MG/DL (1.8-2.4) L Total Bilirubin 0.5 MG/DL (0.2-1.0) Aspartate Amino Transf (AST/SGOT) 15 U/L (15-37) Alanine Aminotransferase (ALT/SGPT) 15 U/L (12-78) Alkaline Phosphatase 74 U/L (46-116) Lactate Dehydrogenase 174 U/L (81-234) Total Protein 6.4 G/DL (6.4-8.2) Albumin 1.8 G/DL (3.4-5.0) L Globulin 4.6 g/dL Albumin/Globulin Ratio 0.4 (1.0-2.7) L Height (Feet): 5 Height (Inches): 9.00 Weight (Pounds): 161 Medications Current Medications Medications (Trade) Dose Ordered Sig/Levi Route PRN Reason Start Time Stop Time Status Last Admin Dose Admin Acetaminophen (Tylenol) 650 mg Q4H PRN ORAL fever (T>100.5F) 03/13/20 04:45 04/09/20 04:44 03/15/20 21:10 Atorvastatin Calcium (Lipitor) 20 mg BEDTIME ORAL 03/13/20 21:00 06/09/20 20:59 03/15/20 21:09 Barium Sulfate (Readi-Cat 2) 450 ml NOW PRN ORAL Radiology Procedure 03/14/20 14:15 03/16/20 14:14 Dextrose (Dextrose 50%) 25 ml Q30M PRN IV Hypoglycemia 03/13/20 05:00 06/11/20 04:59 Dextrose (Dextrose 50%) 50 ml Q30M PRN IV Hypoglycemia 03/13/20 05:00 06/08/20 14:29 Finasteride (Proscar) 5 mg DAILY ORAL 03/13/20 09:00 06/09/20 08:59 03/16/20 10:06 Insulin Aspart (NovoLOG) BEFORE MEALS AND HS SUBQ 03/13/20 06:30 06/08/20 16:59 03/15/20 17:03 Iohexol (OMNIPAQUE-300 100ml) 100 ml NOW PRN INJ Radiology Procedure 03/14/20 14:15 03/16/20 14:14 Lidocaine HCl (Xylocaine Jelly 2%) 1 applic DAILYPRN PRN TOPIC for pain in penile region 03/16/20 08:00 06/14/20 07:59 Meropenem 1 gm/ Sodium Chloride 55 ml @ 110 mls/hr Q8HR IVPB 03/14/20 14:00 03/24/20 23:59 03/16/20 05:21 Metoprolol Tartrate (Lopressor) 12.5 mg BID ORAL 03/13/20 09:00 06/08/20 21:59 03/16/20 10:05 Nateglinide (Starlix) 120 mg DAILY ORAL 03/13/20 09:00 04/10/20 08:59 03/16/20 10:05 Nitroglycerin (Ntg) 0.4 mg Q5M PRN SL Prn Chest Pain 03/13/20 04:45 04/09/20 14:29 Ondansetron HCl (Zofran) 4 mg Q6H PRN IVP Nausea & Vomiting 03/13/20 04:45 04/09/20 04:44 Polyethylene Glycol (Miralax) 17 gm DAILYPRN PRN ORAL Constipation 03/13/20 04:45 04/09/20 04:44 Sodium Chloride 1,000 ml @ 100 mls/hr Q10H IVLG 03/13/20 04:45 04/09/20 16:14 03/16/20 10:12 Tamsulosin HCl (Flomax) 0.4 mg BEDTIME ORAL 03/13/20 21:00 04/09/20 20:59 03/15/20 21:09 Temazepam (Restoril) 15 mg HSPRN PRN ORAL Insomnia 03/13/20 14:30 03/17/20 14:29 Assessment/Plan Assessment/Plan: Onco matt JAIN MD: [facility]Claude Peter [facility]Worsening [facility] DOS 03/16/[address] Peter to matt 84-year-old male presents the ED complaining of chest pain. Brought in by EMS from intermediate facility. Started about 40 minutes ago. Right-sided, dull , 8 out of 10, nonradiating. Was given nitro with chest pain improved. Denies shortness of breath. Denies fevers or chills. Denies cough. No other aggravating relieving factors. Denies any other associated symptoms, at this time is off anticoagulation, with a 3way hernandez inserted per uro, ct a/p shows worsening disease. 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 COVID-19 Screening: Negative COVID-19 COVID-19 Testing Source: unknown Patient History Past Medical History: HTN, dementia Past Surgical History: pacemaker Social History: Denies: smoking, alcohol use, drug use Immunizations: UTD Reviewed Nursing Documentation: PMH: Agreed; PSxH: Agreed Nursing Documentation-PMH Past Medical History: No History, Except For Hx Cardiac Problems: Yes Hx Hypertension: Yes Hx Pacemaker: Yes - left upper chest Hx Diabetes: Yes Hx Cancer: Yes Hx Gastrointestinal Problems: No Hx Neurological Problems: Yes Hx Dementia: Yes Hx Parkinson's Disease: Yes Hx Seizures: Yes Hx Epilepsy: Yes Review of Systems negative except mentioned in HPI Physical Exam: Vitals: reviewed General: NAD HEENT: nc, at Neck: supple Chest: clear breath sounds bilaterally Cardiovascular: RRR, no s3, s4 Abdomen: soft, nontender, nd Extremities: no cce, normal range of motion Neuro: alet : +++hernandez Labs 03/16 wbc 20, hgb .5, plt 262 Imaiing noted Assess/Recs # Bladder cancer extensive stage, WORSENED with PD1+ on biopsy from 12/2018 results, iintially with L hydronephrosis/L Hydroureter 2ry to extensive bladder tumor, that is extensive stage. 11/25 SP Cystoscopy, urethral calibration , transurethral resection of extensive bladder tumor with fulguration, and right retrograde pyelogram. Findings: The patient had what appeared to be a large bladder tumor that involved most of the left side of the bladder extending posteriorly and completely obliterating the left ureteral orifice. Seen by urology --> CT abd/p: Limited assessment of the GI tract, due to lack of enteric contrast administration. Moderate left hydronephrosis and hydroureter. Hydroureter extends to the bladder, where there is asymmetric posterolateral wall thickening raises concern for neoplasm. There is also generalized wall thickening, possibly on the basis of cystitis or chronic bladder outlet obstruction. No definite findings to suggest etiology of stated clinical history of GI bleed. Cholelithiasis. Basilar pulmonary atelectasis and equivocal slight interstitial congestion. L1 vertebral body compression fracture deformity, age indeterminate. --> appreciate urology recs, pulm recs --> 12/31/18: s/p stent placement --> CT A/P 03/2020 Mass within the bladder increased in size since previous examination. Presumably this represents bladder neoplasm. Air is also noted within the bladder and the possibility of bladder infection or internal fistula to the bladder should b considered. Left hydronephrosis and with air in the left renal collecting system. There is a left ureteral stent. The air likely is coming from the bladder but the possibility of infection again is not excluded. --> is now s/p TURB resection x 2 --> urology and pcp followup # Anemia due to hematuira --> appreciate gi recs, in prior endoscopy negatve --> for hematuria is on AMICAR --> anemia panel has been reviewed before --> 3 way hernandez with irrigation --> transfuse if hgb <7 --> per uro recs --> hgb trend 9.5 ==> may need iv iron # Leukocytosis is likely due to malignancy and esbl uti --> on abx meropenem --> per id # Hydronephrosis --> s/p stent placement # Chronic cerebrovascular accident (CVA) --> per neuro as needed # Diabetes mellitus II --> accuchecks qac and qhs --> insulin coverage as needed # Alzheimer's dementia # 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 Greatly appreciate consultation! Pierce Mcguire MD Mar 16, 2020 11:35
--- NOTE | 2020-03-16 12:06 | NUR ---
RD ASSESSMENT & RECOMMENDATIONS SEE CARE ACTIVITY FOR COMPLETE ASSESSMENT DAILY ESTIMATED NEEDS: Needs based on DM, ca 70.2g 25-35 kcals/kg [id number] total kcals 1-2 g protein/kg 70-140 g total protein 20-30ml/kcal mL/kg 3284-6882 total fluid mLs NUTRITION DIAGNOSIS: * Swallowing difficulty R/T dysphagia as evidenced by h/o CVA, s/p INGOT WEIGHER eval, on [facility] soft chopped diet w/ NTL , variable po intake. CURRENT DIET:CCHO MED, ms chopped w/ NTL PO DIET RECOMMENDATIONS: CCHO MED / texture per INGOT WEIGHER ADDITIONAL RECOMMENDATIONS: 1) Calibrated bedscale wt for accurate CBW EMR wt: 190# vs Bed wt: 154# 2) Check lytes daily, replete as needed (Low phos, Mg) 3) Glucerna 1 tetra robinson TID + Snacks as tolerated 4) INGOT WEIGHER evaluation for appropriate texture and max po intake On chopped diet w/ NTL .
[2020-03-16 12:07] LABS: % IRON SATURATION 7 % (15-50); IRON 11 ug/dL (50-175); TOTAL IRON BINDING CAPACITY 162 ug/dL (250-450)
[2020-03-16 12:11] LABS: FERRITIN 28 NG/ML (8-388)
--- NOTE | 2020-03-16 12:54 | Pulmonology Progress Note ---
Subjective ROS Limited/Unobtainable: Yes Interval Events: doing better Constitutional: Reports: no symptoms HEENT: Repors: no symptoms Allergies: Coded Allergies: No Known Allergies (Unverified , 04/09/16) Objective Last 24 Hour Vital Signs Date Time Temp Pulse Resp B/P (MAP) Pulse Ox O2 Delivery O2 Flow Rate FiO2 03/16/20 10:20 Room Air 03/16/20 10:05 89 134/60 03/16/20 08:49 99 Room Air 21 03/16/20 08:00 81 03/16/20 08:00 98.6 89 18 134/60 (84) 97 03/16/20 04:00 97.1 60 18 135/54 (81) 99 03/16/20 04:00 62 03/16/20 00:00 97.7 60 15 125/56 (79) 100 03/16/20 00:00 64 03/15/20 21:00 Nasal Cannula 2.0 03/15/20 20:23 99 Nasal Cannula 2.0 28 03/15/20 20:00 67 03/15/20 20:00 98.1 63 16 125/55 (78) 98 03/15/20 16:00 97.6 76 21 93/55 (68) 98 03/15/20 16:00 80 Intake and Output 03/15/20 03/16/20 19:00 07:00 Intake Total 820 ml 3985 ml Output Total 1000 ml 4200 ml Balance -180 ml -215 ml Intake Oral 720 ml 30 ml IV Total 100 ml 955 ml Other 3000 ml Output Urine Total 1000 ml Other 4200 ml # Bowel Movements 1 General Appearance: cachetic HEENT: normocephalic, atraumatic Respiratory: chest wall non-tender, lungs clear, normal breath sounds, no respiratory distress Cardiovascular: normal peripheral pulses, normal rate, regular rhythm Abdomen: normal bowel sounds, soft, non tender, no organomegaly Genitourinary: normal external genitalia Extremities: no clubbing Skin: no rash Neurologic: chaplain resident II-XII grossly normal Laboratory Tests 03/16/20 05:35: White Blood Count 23.5*H, Red Blood Count 3.72L, Hemoglobin 9.5L, Hematocrit 30.3L, Mean Corpuscular Volume 81, Mean Corpuscular Hemoglobin 25.6L, Mean Corpuscular Hemoglobin Concent 31.4L, Red Cell Distribution Width 16.4H, Platelet Count 292, Mean Platelet Volume 5.7L, Neutrophils (%) (Auto) , Lymphocytes (%) (Auto) , Monocytes (%) (Auto) , Eosinophils (%) (Auto) , Basophils (%) (Auto) , Differential Total Cells Counted 100, Neutrophils % ( Manual) 89H, Lymphocytes % (Manual) 8L, Monocytes % (Manual) 2, Eosinophils % ( Manual) 0, Basophils % (Manual) 1, Band Neutrophils 0, Platelet Estimate Adequate, Platelet Morphology Normal, Hypochromasia 2+, Anisocytosis 1+, Erythrocyte Sedimentation Rate 106H, Reticulocyte Count 1.8, Sodium Level 137, Potassium Level 3.9, Chloride Level 107, Carbon Dioxide Level 24, Anion Gap 6, Blood Urea Nitrogen 15, Creatinine 1.0, Estimat Glomerular Filtration Rate > 60 , Glucose Level 103, Calcium Level 8.6, Phosphorus Level 2.2L, Magnesium Level 1.6L, Iron Level 11L, Total Iron Binding Capacity 162L, Percent Iron Saturation 7L, Unsaturated Iron Binding 151, Ferritin 28, Total Bilirubin 0.5, Aspartate Amino Transf (AST/SGOT) 15, Alanine Aminotransferase (ALT/SGPT) 15, Alkaline Phosphatase 74, Lactate Dehydrogenase 174, Total Protein 6.4, Albumin 1.8L, Globulin 4.6, Albumin/Globulin Ratio 0.4L 03/16/20 12:08: POC Whole Blood Glucose 132H Current Medications Medications (Trade) Dose Ordered Sig/Levi Route PRN Reason Start Time Stop Time Status Last Admin Dose Admin Acetaminophen (Tylenol) 650 mg Q4H PRN ORAL fever (T>100.5F) 03/13/20 04:45 04/09/20 04:44 03/15/20 21:10 Atorvastatin Calcium (Lipitor) 20 mg BEDTIME ORAL 03/13/20 21:00 06/09/20 20:59 03/15/20 21:09 Barium Sulfate (Readi-Cat 2) 450 ml NOW PRN ORAL Radiology Procedure 03/14/20 14:15 03/16/20 14:14 Dextrose (Dextrose 50%) 25 ml Q30M PRN IV Hypoglycemia 03/13/20 05:00 06/11/20 04:59 Dextrose (Dextrose 50%) 50 ml Q30M PRN IV Hypoglycemia 03/13/20 05:00 06/08/20 14:29 Finasteride (Proscar) 5 mg DAILY ORAL 03/13/20 09:00 06/09/20 08:59 03/16/20 10:06 Insulin Aspart (NovoLOG) BEFORE MEALS AND HS SUBQ 03/13/20 06:30 06/08/20 16:59 03/15/20 17:03 Iohexol (OMNIPAQUE-300 100ml) 100 ml NOW PRN INJ Radiology Procedure 03/14/20 14:15 03/16/20 14:14 Lidocaine HCl (Xylocaine Jelly 2%) 1 applic DAILYPRN PRN TOPIC for pain in penile region 03/16/20 08:00 06/14/20 07:59 Meropenem 1 gm/ Sodium Chloride 55 ml @ 110 mls/hr Q8HR IVPB 03/14/20 14:00 03/24/20 23:59 03/16/20 05:21 Metoprolol Tartrate (Lopressor) 12.5 mg BID ORAL 03/13/20 09:00 06/08/20 21:59 03/16/20 10:05 Nateglinide (Starlix) 120 mg DAILY ORAL 03/13/20 09:00 04/10/20 08:59 03/16/20 10:05 Nitroglycerin (Ntg) 0.4 mg Q5M PRN SL Prn Chest Pain 03/13/20 04:45 04/09/20 14:29 Ondansetron HCl (Zofran) 4 mg Q6H PRN IVP Nausea & Vomiting 03/13/20 04:45 04/09/20 04:44 Polyethylene Glycol (Miralax) 17 gm DAILYPRN PRN ORAL Constipation 03/13/20 04:45 04/09/20 04:44 Sodium Chloride 1,000 ml @ 100 mls/hr Q10H IVLG 03/13/20 04:45 04/09/20 16:14 03/16/20 10:12 Tamsulosin HCl (Flomax) 0.4 mg BEDTIME ORAL 03/13/20 21:00 04/09/20 20:59 03/15/20 21:09 Temazepam (Restoril) 15 mg HSPRN PRN ORAL Insomnia 03/13/20 14:30 03/17/20 14:29 Assessment/Plan Problems: (1) Sepsis (2) Urethral fistula (3) UTI (urinary tract infection) (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 Presumably this represents bladder neoplasm. Air is also noted within the bladder and the possibility of bladder infection or internal fistula to the bladder should be considered. anemia w/u decrease iv fluids miller culture sliding scale symptomatic treatment considering the fistula, and enlarging prostate mass. I suggest comfort care and hospice Og Hinkle MD Mar 16, 2020 12:54
--- NOTE | 2020-03-16 13:05 | Infectious Diseases Prog Note ---
Assessment/Plan 84yo M with bladder cancer who p/w chest pain, found to have elevated troponin and leukocytosis. Afebrile Sepsis Leukocytosis, overall improved but remains elevated- - no abscess on CT -03/14 CT abd/p: Mass within the bladder increased in size since previous examination. Presumably this represents bladder neoplasm. Air is also noted within the bladder and the possibility of bladder infection or internal fistula to the bladder should be considered. Left hydronephrosis and with air in the left renal collecting system. There is a left ureteral stent. The air likely is coming from the bladder but the possibility of infection again is not excluded. Atherosclerotic change. Degenerative change in the spine.Cholelithiasis. Bilateral pleural effusions, right greater than left.Subcutaneous edema consistent with mild anasarca. UTI/pyelonephritis, UA with tnct WBC, UCx >100k ESBL Ec.coli Rapid COVID neg x1 -8.4 CXR: Some crowding of markings remain inthe lung bases likely related to a limited inspiration and low lung volumes. No newalveolar process. CXR unremarkable, satting well on 2L NC R/o bacteremia 03/11 BCx NTD 03/10 BCx NTD NSTEMI w/ elevated troponin, can also be a cause of reactive leukocytosis Bladder cancer Hematuria Plan: Continue Meropenem #5/10-14 for ESBL UTI/pyelo -03/12 SP IV Vancomycijn #2, Cefepime #2 No diarrhea, but if occurs check C.dif F/u UCx (UA w/ pyuria) F/u BCx Trend resp status Trend leukocytosis daily Monitor CBC, CMP D/w RN Thank you for this consult. [facility] will continue to follow. Subjective Allergies: Coded Allergies: No Known Allergies (Unverified , 04/09/16) afebrile wbc emains on the 20s Bcx NTD Objective Last 24 Hour Vital Signs Date Time Temp Pulse Resp B/P (MAP) Pulse Ox O2 Delivery O2 Flow Rate FiO2 03/16/20 10:20 Room Air 03/16/20 10:05 89 134/60 03/16/20 08:49 99 Room Air 21 03/16/20 08:00 81 03/16/20 08:00 98.6 89 18 134/60 (84) 97 03/16/20 04:00 97.1 60 18 135/54 (81) 99 03/16/20 04:00 62 03/16/20 00:00 97.7 60 15 125/56 (79) 100 03/16/20 00:00 64 03/15/20 21:00 Nasal Cannula 2.0 03/15/20 20:23 99 Nasal Cannula 2.0 28 03/15/20 20:00 67 03/15/20 20:00 98.1 63 16 125/55 (78) 98 03/15/20 16:00 97.6 76 21 93/55 (68) 98 03/15/20 16:00 80 Height (Feet): 5 Height (Inches): 9.00 Weight (Pounds): 161 Gen: NAD HEENT: OP clear, MM dry, CV: RRR Pulm: CTAB anteriorly Abd: Soft, thin, NTND Laboratory Tests Test 03/16/20 05:35 03/16/20 12:08 White Blood Count 23.5 K/UL (4.8-10.8) *H Red Blood Count 3.72 M/UL (4.70-6.10) L Hemoglobin 9.5 G/DL (14.2-18.0) L Hematocrit 30.3 % (42.0-52.0) L Mean Corpuscular Volume 81 FL (80-99) Mean Corpuscular Hemoglobin 25.6 PG (27.0-31.0) L Mean Corpuscular Hemoglobin Concent 31.4 G/DL (32.0-36.0) L Red Cell Distribution Width 16.4 % (11.6-14.8) H Platelet Count 292 K/UL (150-450) Mean Platelet Volume 5.7 FL (6.5-10.1) L Neutrophils (%) (Auto) % (45.0-75.0) Lymphocytes (%) (Auto) % (20.0-45.0) Monocytes (%) (Auto) % (1.0-10.0) Eosinophils (%) (Auto) % (0.0-3.0) Basophils (%) (Auto) % (0.0-2.0) Differential Total Cells Counted 100 Neutrophils % (Manual) 89 % (45-75) H Lymphocytes % (Manual) 8 % (20-45) L Monocytes % (Manual) 2 % (1-10) Eosinophils % (Manual) 0 % (0-3) Basophils % (Manual) 1 % (0-2) Band Neutrophils 0 % (0-8) Platelet Estimate Adequate Platelet Morphology Normal Hypochromasia 2+ Anisocytosis 1+ Erythrocyte Sedimentation Rate 106 MM/HR (0-20) H Reticulocyte Count 1.8 % (0.5-2.0) Sodium Level 137 MMOL/L (136-145) Potassium Level 3.9 MMOL/L (3.5-5.1) Chloride Level 107 MMOL/L (98-107) Carbon Dioxide Level 24 MMOL/L (21-32) Anion Gap 6 mmol/L (5-15) Blood Urea Nitrogen 15 mg/dL (7-18) Creatinine 1.0 MG/DL (0.55-1.30) Estimat Glomerular Filtration Rate > 60 mL/min (>60) Glucose Level 103 MG/DL (74-106) Calcium Level 8.6 MG/DL (8.5-10.1) Phosphorus Level 2.2 MG/DL (2.5-4.9) L Magnesium Level 1.6 MG/DL (1.8-2.4) L Iron Level 11 ug/dL (50-175) L Total Iron Binding Capacity 162 ug/dL (250-450) L Percent Iron Saturation 7 % (15-50) L Unsaturated Iron Binding 151 ug/dL (112-346) Ferritin 28 NG/ML (8-388) Total Bilirubin 0.5 MG/DL (0.2-1.0) Aspartate Amino Transf (AST/SGOT) 15 U/L (15-37) Alanine Aminotransferase (ALT/SGPT) 15 U/L (12-78) Alkaline Phosphatase 74 U/L (46-116) Lactate Dehydrogenase 174 U/L (81-234) Total Protein 6.4 G/DL (6.4-8.2) Albumin 1.8 G/DL (3.4-5.0) L Globulin 4.6 g/dL Albumin/Globulin Ratio 0.4 (1.0-2.7) L POC Whole Blood Glucose 132 MG/DL (74-106) H Current Medications Medications (Trade) Dose Ordered Sig/Levi Route PRN Reason Start Time Stop Time Status Last Admin Dose Admin Acetaminophen (Tylenol) 650 mg Q4H PRN ORAL fever (T>100.5F) 03/13/20 04:45 8/31/20 04:44 03/15/20 21:10 Atorvastatin Calcium (Lipitor) 20 mg BEDTIME ORAL 03/13/20 21:00 06/09/20 20:59 03/15/20 21:09 Barium Sulfate (Readi-Cat 2) 450 ml NOW PRN ORAL Radiology Procedure 03/14/20 14:15 03/16/20 14:14 Dextrose (Dextrose 50%) 25 ml Q30M PRN IV Hypoglycemia 03/13/20 05:00 06/11/20 04:59 Dextrose (Dextrose 50%) 50 ml Q30M PRN IV Hypoglycemia 03/13/20 05:00 06/08/20 14:29 Finasteride (Proscar) 5 mg DAILY ORAL 03/13/20 09:00 06/09/20 08:59 03/16/20 10:06 Insulin Aspart (NovoLOG) BEFORE MEALS AND HS SUBQ 03/13/20 06:30 06/08/20 16:59 03/15/20 17:03 Iohexol (OMNIPAQUE-300 100ml) 100 ml NOW PRN INJ Radiology Procedure 03/14/20 14:15 03/16/20 14:14 Lidocaine HCl (Xylocaine Jelly 2%) 1 applic DAILYPRN PRN TOPIC for pain in penile region 03/16/20 08:00 06/14/20 07:59 Meropenem 1 gm/ Sodium Chloride 55 ml @ 110 mls/hr Q8HR IVPB 03/14/20 14:00 03/24/20 23:59 03/16/20 05:21 Metoprolol Tartrate (Lopressor) 12.5 mg BID ORAL 03/13/20 09:00 06/08/20 21:59 03/16/20 10:05 Nateglinide (Starlix) 120 mg DAILY ORAL 03/13/20 09:00 04/10/20 08:59 03/16/20 10:05 Nitroglycerin (Ntg) 0.4 mg Q5M PRN SL Prn Chest Pain 03/13/20 04:45 04/09/20 14:29 Ondansetron HCl (Zofran) 4 mg Q6H PRN IVP Nausea & Vomiting 03/13/20 04:45 04/09/20 04:44 Polyethylene Glycol (Miralax) 17 gm DAILYPRN PRN ORAL Constipation 03/13/20 04:45 04/09/20 04:44 Sodium Chloride 1,000 ml @ 100 mls/hr Q10H IVLG 03/13/20 04:45 04/09/20 16:14 03/16/20 10:12 Tamsulosin HCl (Flomax) 0.4 mg BEDTIME ORAL 03/13/20 21:00 04/09/20 20:59 03/15/20 21:09 Temazepam (Restoril) 15 mg HSPRN PRN ORAL Insomnia 03/13/20 14:30 03/17/20 14:29 Tawny Darby M.D. Mar 16, 2020 13:05
--- NOTE | 2020-03-16 15:22 | NUR ---
CASE MANAGEMENT:REVIEW 03/16/20 SI: NSTEMI. E COLI UTI. LEUKOCYTOSIS. ANEMIA..S/P 3 UNITS PRBC'C. H/O BLADDER CANCER 98.8 60 19 130/71 98% ON RA WBC+23.5 PHOS-2.2 IS: IV MEROPENEM Q12 IVF@100/HR LIPITOR PO QHS FLOMAX PO QHS ASA PO QD LOPRESSOR PO BID STARLIX PO QD : TELEMETRY UNIT DCP: [facility]..FULL CODE PLAN: REVIEW CT ABDOMEN
[2020-03-16] MEDS: Lactulose 20gm/30ml UDC ORAL SCH (18:09)
[2020-03-16] MEDS: Docusate 100mg cap ORAL SCH (18:09)
[2020-03-16] MEDS ORDERED: NS 275ml ONE (19:08)
[2020-03-16] MEDS ORDERED: NS Irrig 1000ml ONE (19:08)
[2020-03-16] MEDS ORDERED: Tubing IV Secondary IV ONE (19:08)
[2020-03-16] MEDS ORDERED: NS Irrig 2000ml IRRIG ONE (19:08)
[2020-03-16] MEDS ORDERED: NS Irrig 4000ml IRRIG ONE (19:08)
--- NOTE | 2020-03-16 19:29 | Internal Med Progress Note ---
Subjective Physician Name Jaziel Lowe Attending Physician Jaziel Lowe MD Current Medications Medications (Trade) Dose Ordered Sig/Levi Route PRN Reason Start Time Stop Time Status Last Admin Dose Admin Acetaminophen (Tylenol) 650 mg Q4H PRN ORAL fever (T>100.5F) 03/13/20 04:45 04/09/20 04:44 03/15/20 21:10 Atorvastatin Calcium (Lipitor) 20 mg BEDTIME ORAL 03/13/20 21:00 06/09/20 20:59 03/15/20 21:09 Dextrose (Dextrose 50%) 25 ml Q30M PRN IV Hypoglycemia 03/13/20 05:00 06/11/20 04:59 Dextrose (Dextrose 50%) 50 ml Q30M PRN IV Hypoglycemia 03/13/20 05:00 06/08/20 14:29 Docusate Sodium (Colace) 100 mg THREE TIMES A DAY ORAL 03/16/20 18:00 04/15/20 17:59 03/16/20 18:09 Finasteride (Proscar) 5 mg DAILY ORAL 03/13/20 09:00 06/09/20 08:59 03/16/20 10:06 Insulin Aspart (NovoLOG) BEFORE MEALS AND HS SUBQ 03/13/20 06:30 06/08/20 16:59 03/16/20 13:05 Lactulose (Cephulac) 30 gm THREE TIMES A DAY ORAL 03/16/20 18:00 04/15/20 17:59 03/16/20 18:09 Lidocaine HCl (Xylocaine Jelly 2%) 1 applic DAILYPRN PRN TOPIC for pain in penile region 03/16/20 08:00 06/14/20 07:59 Meropenem 1 gm/ Sodium Chloride 55 ml @ 110 mls/hr Q8HR IVPB 03/14/20 14:00 03/24/20 23:59 03/16/20 13:15 Metoprolol Tartrate (Lopressor) 12.5 mg BID ORAL 03/13/20 09:00 06/08/20 21:59 03/16/20 18:09 Mineral Oil (Fleet's Mineral Oil Enema) 133 ml EVERY OTHER DAY RECTAL 03/18/20 09:00 04/17/20 08:59 Nateglinide (Starlix) 120 mg DAILY ORAL 03/13/20 09:00 04/10/20 08:59 03/16/20 10:05 Nitroglycerin (Ntg) 0.4 mg Q5M PRN SL Prn Chest Pain 03/13/20 04:45 04/09/20 14:29 Ondansetron HCl (Zofran) 4 mg Q6H PRN IVP Nausea & Vomiting 03/13/20 04:45 04/09/20 04:44 Polyethylene Glycol (Miralax) 17 gm DAILYPRN PRN ORAL Constipation 03/13/20 04:45 04/09/20 04:44 Sodium Chloride 1,000 ml @ 100 mls/hr Q10H IVLG 03/13/20 04:45 04/09/20 16:14 03/16/20 10:12 Tamsulosin HCl (Flomax) 0.4 mg BEDTIME ORAL 03/13/20 21:00 04/09/20 20:59 03/15/20 21:09 Temazepam (Restoril) 15 mg HSPRN PRN ORAL Insomnia 03/13/20 14:30 03/17/20 14:29 Allergies: Coded Allergies: No Known Allergies (Unverified , 04/09/16) Subjective awake, responsive, no acute distress, alert and oriented 2 [address] the name and the place, no acute distress. WBC: 23.5, hemoglobin: 9.5. Objective Last Vital Signs Date Time Temp Pulse Resp B/P (MAP) Pulse Ox O2 Delivery O2 Flow Rate FiO2 03/16/20 18:09 65 135/71 03/16/20 16:00 98.2 20 100 03/16/20 10:20 Room Air 03/16/20 08:49 21 03/15/20 21:00 2.0 Laboratory Tests Test 03/16/20 05:35 03/16/20 12:08 03/16/20 16:32 White Blood Count 23.5 K/UL (4.8-10.8) *H Red Blood Count 3.72 M/UL (4.70-6.10) L Hemoglobin 9.5 G/DL (14.2-18.0) L Hematocrit 30.3 % (42.0-52.0) L Mean Corpuscular Volume 81 FL (80-99) Mean Corpuscular Hemoglobin 25.6 PG (27.0-31.0) L Mean Corpuscular Hemoglobin Concent 31.4 G/DL (32.0-36.0) L Red Cell Distribution Width 16.4 % (11.6-14.8) H Platelet Count 292 K/UL (150-450) Mean Platelet Volume 5.7 FL (6.5-10.1) L Neutrophils (%) (Auto) % (45.0-75.0) Lymphocytes (%) (Auto) % (20.0-45.0) Monocytes (%) (Auto) % (1.0-10.0) Eosinophils (%) (Auto) % (0.0-3.0) Basophils (%) (Auto) % (0.0-2.0) Differential Total Cells Counted 100 Neutrophils % (Manual) 89 % (45-75) H Lymphocytes % (Manual) 8 % (20-45) L Monocytes % (Manual) 2 % (1-10) Eosinophils % (Manual) 0 % (0-3) Basophils % (Manual) 1 % (0-2) Band Neutrophils 0 % (0-8) Platelet Estimate Adequate Platelet Morphology Normal Hypochromasia 2+ Anisocytosis 1+ Erythrocyte Sedimentation Rate 106 MM/HR (0-20) H Reticulocyte Count 1.8 % (0.5-2.0) Sodium Level 137 MMOL/L (136-145) Potassium Level 3.9 MMOL/L (3.5-5.1) Chloride Level 107 MMOL/L (98-107) Carbon Dioxide Level 24 MMOL/L (21-32) Anion Gap 6 mmol/L (5-15) Blood Urea Nitrogen 15 mg/dL (7-18) Creatinine 1.0 MG/DL (0.55-1.30) Estimat Glomerular Filtration Rate > 60 mL/min (>60) Glucose Level 103 MG/DL (74-106) Calcium Level 8.6 MG/DL (8.5-10.1) Phosphorus Level 2.2 MG/DL (2.5-4.9) L Magnesium Level 1.6 MG/DL (1.8-2.4) L Iron Level 11 ug/dL (50-175) L Total Iron Binding Capacity 162 ug/dL (250-450) L Percent Iron Saturation 7 % (15-50) L Unsaturated Iron Binding 151 ug/dL (112-346) Ferritin 28 NG/ML (8-388) Total Bilirubin 0.5 MG/DL (0.2-1.0) Aspartate Amino Transf (AST/SGOT) 15 U/L (15-37) Alanine Aminotransferase (ALT/SGPT) 15 U/L (12-78) Alkaline Phosphatase 74 U/L (46-116) Lactate Dehydrogenase 174 U/L (81-234) Total Protein 6.4 G/DL (6.4-8.2) Albumin 1.8 G/DL (3.4-5.0) L Globulin 4.6 g/dL Albumin/Globulin Ratio 0.4 (1.0-2.7) L POC Whole Blood Glucose 132 MG/DL (74-106) H 117 MG/DL (74-106) H Intake and Output 03/15/20 03/16/20 19:00 07:00 Intake Total 820 ml 3985 ml Output Total 1000 ml 4200 ml Balance -180 ml -215 ml Intake Oral 720 ml 30 ml IV Total 100 ml 955 ml Other 3000 ml Output Urine Total 1000 ml Other 4200 ml # Bowel Movements 1 Objective General: No acute distress, awake and responsive. HEENT: NCAT, sclera anicteric, PERRL, EOMI. Neck: Supple, no significant jugular venous distention, Lungs: Fair inspiratory effort, decreased air at the bases, no Wheeze or Rales. Heart: Regular rate and rhythm, normal S1/S2, no murmurs. Abdomen: soft, nontender, Mild distended. Normoactive bowel sounds. : Robertson catheter with irrigation, pink urine Extremities: No Cyanosis , clubbing or edema. Neuro: A&O x 2, Able to move all extremities slowly. Skin: warm, no rashes Assessment/Plan Assessment/Plan ASSESSMENT: This is an 84-year-old male. 1. Chest pain. 2. Elevated troponin level. 3. Bladder cancer. 4. Gastritis. 5. Hypertension. 6. Diabetes type 2. 7. Atrioventricular conduction defect. 8. Alzheimer's dementia. 9. Cerebrovascular disease. 10. Right hemiplegia. 11. Pacemaker in situ. 12. Urinary tract infection=ESBL E. Coli 13. Persistant leukocytosis most likely secondary to UTI/pyelonephritis. TREATMENT: 1. Chest pain/elevated troponin. A Cardiology consultation has been obtained with Dr. Nj Valenzuela. We will follow recommendations of Cardiology. 2. Bladder cancer. CT=bladder mass increased in size from prior. Urology= Dr. Macho Allen. The patient is status post transurethral resection of bladder tumor x2. We will follow recommendations of Urology. 3. Gastritis. Continue Protonix as above. 4. Hypertension. 5. Diabetes type 2. A NovoLog sliding scale has been instituted. 6. Atrioventricular conduction defect. The patient is status post pacemaker implantation. 7. Alzheimer's dementia. 8. Cerebrovascular disease, status post cerebrovascular accident. 9. Right hemiplegia. 10. ABX=Meropenem per ID=Dr Mehnaz PHILIP planning to SNF in 1-2 days Jaziel Lowe MD Mar 16, 2020 19:29
--- NOTE | 2020-03-16 19:31 | NUR ---
HAND-OFF: Report given to Austen/rn, pt in stable condition. Marcelo is on continues irrigation, endorsed plan of care to RN.
--- NOTE | 2020-03-16 20:13 | NUR ---
NURSE NOTES: Received patient report from DONELL Shea. Patient shows no signs of distress or pain at the time. Patient is AO x2. Robertson catheter is patent and draining and on a continuous irrigation. IV is patent and flushed. There are no signs of erythema, infiltration, or bleeding. Bed is in the lowest position, call light is within reach, side rails up x3. Will continue plan of care.
[2020-03-16] MEDS: Atorvastatin 20mg tab ORAL SCH (21:00)
[2020-03-16] MEDS: Tamsulosin 0.4mg cap ORAL SCH (21:00)
--- NOTE | 2020-03-16 21:00 | NUR ---
NURSE NOTES: Clarified with Dr. Lowe about patients sliding scale. Dr. Lowe corrected order.
[2020-03-17] VITALS: BP 118/54
[2020-03-17 04:00] VITALS: BP 133/59
[2020-03-17] MEDS: Meropenem 1gm/NS 55ml IVPB SCH ×6 (06:05→22:22)
[2020-03-17] MEDS: Insulin NovoLOG Flexpen S/S (Mod) SUBQ SCH ×4 (06:30→20:38)
--- NOTE | 2020-03-17 07:37 | NUR ---
HAND-OFF: Report given to DONELL Putnam and Tahir RN. Patient shows no signs of distress or pain at the time. Endorsed plan of care.
[2020-03-17 08:00] VITALS: BP 123/59
--- NOTE | 2020-03-17 08:17 | NUR ---
NURSES NOTES: Received patient report from DONELL Boyce. Pt is A/O x2 and able to make needs known but forgetful. Pt has no SOB or acute distress noted with pt having NC on 2L. Robertson catheter is patent and draining and on a continuous irrigation. IV is patent and flushed. There are no signs of erythema, infiltration, or bleeding. Bed is in the lowest position, call light is within reach, side rails up x3. Will continue plan of care
[2020-03-17] MEDS: Docusate 100mg cap ORAL SCH ×3 (08:56→18:00)
[2020-03-17] MEDS: Lactulose 20gm/30ml UDC ORAL SCH ×3 (08:56→18:00)
[2020-03-17] MEDS: Metoprolol Tartrate 12.5mg TAB ORAL SCH ×2 (08:56→18:23)
[2020-03-17 09:25] LABS: HEMOGLOBIN 9.7 G/DL (14.2-18.0); MEAN CORPUSCULAR VOLUME 81 FL (80-99); PLATELET COUNT 275 K/UL (150-450); RED BLOOD COUNT 3.82 M/UL (4.70-6.10); RED CELL DISTRIBUTION WIDTH 16.6 % (11.6-14.8)
[2020-03-17 09:29] LABS: WHITE BLOOD COUNT 27.1 K/UL (4.8-10.8)
[2020-03-17 09:49] LABS: ALANINE AMINOTRANSFERASE 14 U/L (12-78); ALBUMIN 1.9 G/DL (3.4-5.0); ALBUMIN/GLOBULIN RATIO 0.4 (1.0-2.7); ALKALINE PHOSPHATASE 80 U/L (46-116); ANION GAP 6 mmol/L (5-15); ASPARTATE AMINO TRANSFERASE 15 U/L (15-37); BILIRUBIN,TOTAL 0.4 MG/DL (0.2-1.0); BLOOD UREA NITROGEN 10 mg/dL (7-18); CALCIUM 8.9 MG/DL (8.5-10.1); CARBON DIOXIDE 27 MMOL/L (21-32); CHLORIDE 107 MMOL/L (98-107); CREATININE 1.1 MG/DL (0.55-1.30); LACTATE DEHYDROGENASE 131 U/L (81-234); PHOSPHORUS 2.2 MG/DL (2.5-4.9); POTASSIUM 4.3 MMOL/L (3.5-5.1); SODIUM 139 MMOL/L (136-145)
--- NOTE | 2020-03-17 11:24 | NUR ---
NURSES NOTES: Contact Dr. Darby and Dr Garay (oncall) regarding WBC count that 27.1. Received call back and blood cultures ordered. Orders imputted.
[2020-03-17 12:00] VITALS: BP 120/61
--- NOTE | 2020-03-17 13:40 | Internal Med Progress Note ---
Subjective Date of Service: Mar 17, 2020 Physician Name PeterJean-Claude Attending Physician Jaziel Lowe MD Current Medications Medications (Trade) Dose Ordered Sig/Levi Route PRN Reason Start Time Stop Time Status Last Admin Dose Admin Acetaminophen (Tylenol) 650 mg Q4H PRN ORAL fever (T>100.5F) 03/13/20 04:45 04/09/20 04:44 03/15/20 21:10 Atorvastatin Calcium (Lipitor) 20 mg BEDTIME ORAL 03/13/20 21:00 06/09/20 20:59 03/16/20 21:00 Dextrose (Dextrose 50%) 25 ml Q30M PRN IV Hypoglycemia 03/13/20 05:00 06/11/20 04:59 Dextrose (Dextrose 50%) 50 ml Q30M PRN IV Hypoglycemia 03/13/20 05:00 06/08/20 14:29 Docusate Sodium (Colace) 100 mg THREE TIMES A DAY ORAL 03/16/20 18:00 04/15/20 17:59 03/17/20 12:52 Finasteride (Proscar) 5 mg DAILY ORAL 03/13/20 09:00 06/09/20 08:59 03/17/20 08:56 Insulin Aspart (NovoLOG) No Dose BEFORE MEALS AND HS SUBQ 03/17/20 06:30 06/15/20 06:29 Lactulose (Cephulac) 30 gm THREE TIMES A DAY ORAL 03/16/20 18:00 04/15/20 17:59 03/17/20 12:52 Lidocaine HCl (Xylocaine Jelly 2%) 1 applic DAILYPRN PRN TOPIC for pain in penile region 03/16/20 08:00 06/14/20 07:59 Meropenem 1 gm/ Sodium Chloride 55 ml @ 110 mls/hr Q8HR IVPB 03/14/20 14:00 03/24/20 23:59 03/17/20 13:24 Metoprolol Tartrate (Lopressor) 12.5 mg BID ORAL 03/13/20 09:00 06/08/20 21:59 03/17/20 08:56 Mineral Oil (Fleet's Mineral Oil Enema) 133 ml EVERY OTHER DAY RECTAL 03/18/20 09:00 04/17/20 08:59 Nateglinide (Starlix) 120 mg DAILY ORAL 03/13/20 09:00 04/10/20 08:59 03/17/20 08:56 Nitroglycerin (Ntg) 0.4 mg Q5M PRN SL Prn Chest Pain 03/13/20 04:45 04/09/20 14:29 Ondansetron HCl (Zofran) 4 mg Q6H PRN IVP Nausea & Vomiting 03/13/20 04:45 04/09/20 04:44 Polyethylene Glycol (Miralax) 17 gm DAILYPRN PRN ORAL Constipation 03/13/20 04:45 04/09/20 04:44 Sodium Chloride 1,000 ml @ 100 mls/hr Q10H IVLG 03/13/20 04:45 04/09/20 16:14 03/17/20 09:02 Tamsulosin HCl (Flomax) 0.4 mg BEDTIME ORAL 03/13/20 21:00 04/09/20 20:59 03/16/20 21:00 Temazepam (Restoril) 15 mg HSPRN PRN ORAL Insomnia 03/13/20 14:30 03/17/20 14:29 Allergies: Coded Allergies: No Known Allergies (Unverified , 04/09/16) ROS Limited/Unobtainable: No Constitutional: Reports: no symptoms HEENT: Reports: no symptoms Cardiovascular: Reports: no symptoms Respiratory: Reports: no symptoms Gastrointestinal/Abdominal: Reports: no symptoms Genitourinary: Reports: no symptoms 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: Reports: no symptoms Subjective 84 YO M with a history of bladder cancer admitted with chest pain. Cover for Int Uriel-DR Lowe. Tele Objective Last Vital Signs Date Time Temp Pulse Resp B/P (MAP) Pulse Ox O2 Delivery O2 Flow Rate FiO2 03/17/20 12:00 98.1 71 19 120/61 (80) 100 03/17/20 09:00 Room Air 03/16/20 20:08 21 03/15/20 21:00 2.0 Laboratory Tests Test 03/16/20 16:32 03/17/20 06:06 03/17/20 09:05 03/17/20 11:52 POC Whole Blood Glucose 117 MG/DL (74-106) H 108 MG/DL (74-106) H 123 MG/DL (74-106) H White Blood Count 27.1 K/UL (4.8-10.8) *H Red Blood Count 3.82 M/UL (4.70-6.10) L Hemoglobin 9.7 G/DL (14.2-18.0) L Hematocrit 31.0 % (42.0-52.0) L Mean Corpuscular Volume 81 FL (80-99) Mean Corpuscular Hemoglobin 25.5 PG (27.0-31.0) L Mean Corpuscular Hemoglobin Concent 31.4 G/DL (32.0-36.0) L Red Cell Distribution Width 16.6 % (11.6-14.8) H Platelet Count 275 K/UL (150-450) Mean Platelet Volume 5.7 FL (6.5-10.1) L Neutrophils (%) (Auto) % (45.0-75.0) Lymphocytes (%) (Auto) % (20.0-45.0) Monocytes (%) (Auto) % (1.0-10.0) Eosinophils (%) (Auto) % (0.0-3.0) Basophils (%) (Auto) % (0.0-2.0) Differential Total Cells Counted 100 Neutrophils % (Manual) 94 % (45-75) H Lymphocytes % (Manual) 3 % (20-45) L Monocytes % (Manual) 3 % (1-10) Eosinophils % (Manual) 0 % (0-3) Basophils % (Manual) 0 % (0-2) Band Neutrophils 0 % (0-8) Platelet Estimate Adequate Platelet Morphology Normal Hypochromasia 1+ Anisocytosis 1+ Erythrocyte Sedimentation Rate 88 MM/HR (0-20) H Reticulocyte Count 1.1 % (0.5-2.0) Sodium Level 139 MMOL/L (136-145) Potassium Level 4.3 MMOL/L (3.5-5.1) Chloride Level 107 MMOL/L (98-107) Carbon Dioxide Level 27 MMOL/L (21-32) Anion Gap 6 mmol/L (5-15) Blood Urea Nitrogen 10 mg/dL (7-18) Creatinine 1.1 MG/DL (0.55-1.30) Estimat Glomerular Filtration Rate > 60 mL/min (>60) Glucose Level 151 MG/DL (74-106) H Calcium Level 8.9 MG/DL (8.5-10.1) Phosphorus Level 2.2 MG/DL (2.5-4.9) L Magnesium Level 1.8 MG/DL (1.8-2.4) Total Bilirubin 0.4 MG/DL (0.2-1.0) Aspartate Amino Transf (AST/SGOT) 15 U/L (15-37) Alanine Aminotransferase (ALT/SGPT) 14 U/L (12-78) Alkaline Phosphatase 80 U/L (46-116) Lactate Dehydrogenase 131 U/L (81-234) Total Protein 6.5 G/DL (6.4-8.2) Albumin 1.9 G/DL (3.4-5.0) L Globulin 4.6 g/dL Albumin/Globulin Ratio 0.4 (1.0-2.7) L Intake and Output 03/16/20 03/17/20 19:00 07:00 Output Total 1200 ml 5600 ml Balance -1200 ml -5600 ml Output Urine Total 1200 ml 5600 ml # Voids 1 1 # Bowel Movements 2 Objective PHYSICAL EXAMINATION: GENERAL: The patient is a well-developed and well-nourished male, in no apparent distress. HEENT: Eyes, pupils are equal and responsive to light and accommodation. Extraocular movements are intact. NECK: Supple without lymphadenopathy. CHEST: Lungs are clear to auscultation bilaterally without wheezes or rales. CARDIOVASCULAR: Regular rhythm and rate. S1, S2 are normal without murmurs, rubs, or gallops. ABDOMEN: Soft, nontender, and nondistended. Positive bowel sounds. No evidence of hepatosplenomegaly. Currently, no rebound or guarding noted. EXTREMITIES: Negative for clubbing, cyanosis, or edema. RECTAL/GENITAL: Not performed. NEUROLOGIC: Cranial nerves II through XII are grossly intact without focal deficits. Motor strength is 5/5 bilaterally. Deep tendon reflexes are 2+ plantar. Assessment/Plan Assessment/Plan ASSESSMENT: This is an 84-year-old male. 1. Chest pain. 2. Elevated troponin level. 3. Bladder cancer. 4. Gastritis. 5. Hypertension. 6. Diabetes type 2. 7. Atrioventricular conduction defect. 8. Alzheimer's dementia. 9. Cerebrovascular disease. 10. Right hemiplegia. 11. Pacemaker in situ. 12. Urinary tract infection=ESBL E. Coli 13. Persistant leukocytosis due to UTI 14. Hematuria TREATMENT: 1. Chest pain/elevated troponin. A Cardiology consultation has been obtained with Dr. Nj Valenzuela. We will follow recommendations of Cardiology. 2. Bladder cancer. CT=bladder mass increased in size from prior. Urology= Dr. Macho Allen. The patient is status post transurethral resection of bladder tumor x2. We will follow recommendations of Urology. 3. Gastritis. Continue Protonix as above. 4. Hypertension. 5. Diabetes type 2. A NovoLog sliding scale has been instituted. 6. Atrioventricular conduction defect. The patient is status post pacemaker implantation. 7. Alzheimer's dementia. 8. Cerebrovascular disease, status post cerebrovascular accident. 9. Right hemiplegia. 10. ABX=meropenem per ID=Dr Darby 11. Bladder irrigation per urology Jean-Claude Peter MD Mar 17, 2020 13:40
[2020-03-17 16:00] VITALS: BP 114/64
--- NOTE | 2020-03-17 17:47 | Pulmonology Progress Note ---
Subjective ROS Limited/Unobtainable: No Interval Events: doing better Constitutional: Reports: no symptoms HEENT: Repors: no symptoms Allergies: Coded Allergies: No Known Allergies (Unverified , 04/09/16) Objective Last 24 Hour Vital Signs Date Time Temp Pulse Resp B/P (MAP) Pulse Ox O2 Delivery O2 Flow Rate FiO2 03/17/20 12:00 98.1 71 19 120/61 (80) 100 03/17/20 12:00 60 03/17/20 09:00 Room Air 03/17/20 08:56 60 133/59 03/17/20 08:00 96.7 86 18 123/59 (80) 100 03/17/20 08:00 74 03/17/20 04:00 60 03/17/20 04:00 97.3 61 17 133/59 (83) 100 03/17/20 00:00 60 03/17/20 00:00 97.7 65 18 118/54 (75) 100 03/16/20 21:00 Room Air 03/16/20 20:08 99 Room Air 21 03/16/20 20:00 68 03/16/20 20:00 97.3 61 17 133/59 (83) 100 03/16/20 18:09 65 135/71 Intake and Output 03/16/20 03/17/20 19:00 07:00 Output Total 1200 ml 5600 ml Balance -1200 ml -5600 ml Output Urine Total 1200 ml 5600 ml # Voids 1 1 # Bowel Movements 2 General Appearance: cachetic HEENT: normocephalic, atraumatic Respiratory: chest wall non-tender, lungs clear, normal breath sounds, no respiratory distress Cardiovascular: normal peripheral pulses, normal rate, regular rhythm Abdomen: normal bowel sounds, soft, non tender, no organomegaly Genitourinary: normal external genitalia Extremities: no clubbing Skin: no rash 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 Laboratory Tests 03/17/20 06:06: POC Whole Blood Glucose 108H 03/17/20 09:05: White Blood Count 27.1*H, Red Blood Count 3.82L, Hemoglobin 9.7L, Hematocrit 31.0L, Mean Corpuscular Volume 81, Mean Corpuscular Hemoglobin 25.5L, Mean Corpuscular Hemoglobin Concent 31.4L, Red Cell Distribution Width 16.6H, Platelet Count 275, Mean Platelet Volume 5.7L, Neutrophils (%) (Auto) , Lymphocytes (%) (Auto) , Monocytes (%) (Auto) , Eosinophils (%) (Auto) , Basophils (%) (Auto) , Differential Total Cells Counted 100, Neutrophils % ( Manual) 94H, Lymphocytes % (Manual) 3L, Monocytes % (Manual) 3, Eosinophils % ( Manual) 0, Basophils % (Manual) 0, Band Neutrophils 0, Platelet Estimate Adequate, Platelet Morphology Normal, Hypochromasia 1+, Anisocytosis 1+, Erythrocyte Sedimentation Rate 88H, Reticulocyte Count 1.1, Sodium Level 139, Potassium Level 4.3, Chloride Level 107, Carbon Dioxide Level 27, Anion Gap 6, Blood Urea Nitrogen 10, Creatinine 1.1, Estimat Glomerular Filtration Rate > 60 , Glucose Level 151H, Calcium Level 8.9, Phosphorus Level 2.2L, Magnesium Level 1.8, Total Bilirubin 0.4, Aspartate Amino Transf (AST/SGOT) 15, Alanine Aminotransferase (ALT/SGPT) 14, Alkaline Phosphatase 80, Lactate Dehydrogenase 131, Total Protein 6.5, Albumin 1.9L, Globulin 4.6, Albumin/Globulin Ratio 0.4L 03/17/20 11:52: POC Whole Blood Glucose 123H 03/17/20 17:14: POC Whole Blood Glucose 119H Current Medications Medications (Trade) Dose Ordered Sig/Levi Route PRN Reason Start Time Stop Time Status Last Admin Dose Admin Acetaminophen (Tylenol) 650 mg Q4H PRN ORAL fever (T>100.5F) 03/13/20 04:45 04/09/20 04:44 03/15/20 21:10 Atorvastatin Calcium (Lipitor) 20 mg BEDTIME ORAL 03/13/20 21:00 06/09/20 20:59 03/16/20 21:00 Dextrose (Dextrose 50%) 25 ml Q30M PRN IV Hypoglycemia 03/13/20 05:00 06/11/20 04:59 Dextrose (Dextrose 50%) 50 ml Q30M PRN IV Hypoglycemia 03/13/20 05:00 06/08/20 14:29 Docusate Sodium (Colace) 100 mg THREE TIMES A DAY ORAL 03/16/20 18:00 04/15/20 17:59 03/17/20 12:52 Finasteride (Proscar) 5 mg DAILY ORAL 03/13/20 09:00 06/09/20 08:59 03/17/20 08:56 Insulin Aspart (NovoLOG) No Dose BEFORE MEALS AND HS SUBQ 03/17/20 06:30 06/15/20 06:29 Lactulose (Cephulac) 30 gm THREE TIMES A DAY ORAL 03/16/20 18:00 04/15/20 17:59 03/17/20 12:52 Lidocaine HCl (Xylocaine Jelly 2%) 1 applic DAILYPRN PRN TOPIC for pain in penile region 03/16/20 08:00 06/14/20 07:59 Meropenem 1 gm/ Sodium Chloride 55 ml @ 110 mls/hr Q8HR IVPB 03/14/20 14:00 03/24/20 23:59 03/17/20 13:24 Metoprolol Tartrate (Lopressor) 12.5 mg BID ORAL 03/13/20 09:00 06/08/20 21:59 03/17/20 08:56 Mineral Oil (Fleet's Mineral Oil Enema) 133 ml EVERY OTHER DAY RECTAL 03/18/20 09:00 04/17/20 08:59 Nateglinide (Starlix) 120 mg DAILY ORAL 03/13/20 09:00 04/10/20 08:59 03/17/20 08:56 Nitroglycerin (Ntg) 0.4 mg Q5M PRN SL Prn Chest Pain 03/13/20 04:45 04/09/20 14:29 Ondansetron HCl (Zofran) 4 mg Q6H PRN IVP Nausea & Vomiting 03/13/20 04:45 04/09/20 04:44 Polyethylene Glycol (Miralax) 17 gm DAILYPRN PRN ORAL Constipation 03/13/20 04:45 04/09/20 04:44 Sodium Chloride 1,000 ml @ 100 mls/hr Q10H IVLG 03/13/20 04:45 04/09/20 16:14 03/17/20 09:02 Tamsulosin HCl (Flomax) 0.4 mg BEDTIME ORAL 03/13/20 21:00 04/09/20 20:59 03/16/20 21:00 Assessment/Plan Problems: (1) Sepsis (2) Urethral fistula (3) UTI (urinary tract infection) (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 Presumably this represents bladder neoplasm. Air is also noted within the bladder and the possibility of bladder infection or internal fistula to the bladder should be considered. anemia w/u miller culture sliding scale symptomatic treatment Og Hinkle MD Mar 17, 2020 17:47
--- NOTE | 2020-03-17 18:04 | Cardiology Progress Note ---
Assessment/Plan Assessment/Plan acute OK, clinically stable\ limited options in terms for blood thinners due to hematuria Subjective Subjective The patient is sleeping, arousable, he resports no chest pain at present time he is comofrtable Objective Last 24 Hour Vital Signs Date Time Temp Pulse Resp B/P (MAP) Pulse Ox O2 Delivery O2 Flow Rate FiO2 03/17/20 12:00 98.1 71 19 120/61 (80) 100 03/17/20 12:00 60 03/17/20 09:00 Room Air 03/17/20 08:56 60 133/59 03/17/20 08:00 96.7 86 18 123/59 (80) 100 03/17/20 08:00 74 03/17/20 04:00 60 03/17/20 04:00 97.3 61 17 133/59 (83) 100 03/17/20 00:00 60 03/17/20 00:00 97.7 65 18 118/54 (75) 100 03/16/20 21:00 Room Air 03/16/20 20:08 99 Room Air 21 03/16/20 20:00 68 03/16/20 20:00 97.3 61 17 133/59 (83) 100 03/16/20 18:09 65 135/71 General Appearance: no apparent distress EENT: PERRL/EOMI Neck: no JVD Rhythm: NSR Cardiovascular: normal rate Respiratory/Chest: crackles/rales Abdomen: soft Intake and Output 03/16/20 03/17/20 19:00 07:00 Output Total 1200 ml 5600 ml Balance -1200 ml -5600 ml Output Urine Total 1200 ml 5600 ml # Voids 1 1 # Bowel Movements 2 Laboratory Tests Test 03/17/20 06:06 03/17/20 09:05 03/17/20 11:52 03/17/20 17:14 POC Whole Blood Glucose 108 MG/DL (74-106) H 123 MG/DL (74-106) H 119 MG/DL (74-106) H White Blood Count 27.1 K/UL (4.8-10.8) *H Red Blood Count 3.82 M/UL (4.70-6.10) L Hemoglobin 9.7 G/DL (14.2-18.0) L Hematocrit 31.0 % (42.0-52.0) L Mean Corpuscular Volume 81 FL (80-99) Mean Corpuscular Hemoglobin 25.5 PG (27.0-31.0) L Mean Corpuscular Hemoglobin Concent 31.4 G/DL (32.0-36.0) L Red Cell Distribution Width 16.6 % (11.6-14.8) H Platelet Count 275 K/UL (150-450) Mean Platelet Volume 5.7 FL (6.5-10.1) L Neutrophils (%) (Auto) % (45.0-75.0) Lymphocytes (%) (Auto) % (20.0-45.0) Monocytes (%) (Auto) % (1.0-10.0) Eosinophils (%) (Auto) % (0.0-3.0) Basophils (%) (Auto) % (0.0-2.0) Differential Total Cells Counted 100 Neutrophils % (Manual) 94 % (45-75) H Lymphocytes % (Manual) 3 % (20-45) L Monocytes % (Manual) 3 % (1-10) Eosinophils % (Manual) 0 % (0-3) Basophils % (Manual) 0 % (0-2) Band Neutrophils 0 % (0-8) Platelet Estimate Adequate Platelet Morphology Normal Hypochromasia 1+ Anisocytosis 1+ Erythrocyte Sedimentation Rate 88 MM/HR (0-20) H Reticulocyte Count 1.1 % (0.5-2.0) Sodium Level 139 MMOL/L (136-145) Potassium Level 4.3 MMOL/L (3.5-5.1) Chloride Level 107 MMOL/L (98-107) Carbon Dioxide Level 27 MMOL/L (21-32) Anion Gap 6 mmol/L (5-15) Blood Urea Nitrogen 10 mg/dL (7-18) Creatinine 1.1 MG/DL (0.55-1.30) Estimat Glomerular Filtration Rate > 60 mL/min (>60) Glucose Level 151 MG/DL (74-106) H Calcium Level 8.9 MG/DL (8.5-10.1) Phosphorus Level 2.2 MG/DL (2.5-4.9) L Magnesium Level 1.8 MG/DL (1.8-2.4) Total Bilirubin 0.4 MG/DL (0.2-1.0) Aspartate Amino Transf (AST/SGOT) 15 U/L (15-37) Alanine Aminotransferase (ALT/SGPT) 14 U/L (12-78) Alkaline Phosphatase 80 U/L (46-116) Lactate Dehydrogenase 131 U/L (81-234) Total Protein 6.5 G/DL (6.4-8.2) Albumin 1.9 G/DL (3.4-5.0) L Globulin 4.6 g/dL Albumin/Globulin Ratio 0.4 (1.0-2.7) L Fannie Berger MD Mar 17, 2020 18:04
--- NOTE | 2020-03-17 19:26 | NUR ---
HAND OFF: Report given to DONELL Lui. Pt in stable condition. Endorsed plan of care.
--- NOTE | 2020-03-17 19:57 | NUR ---
NURSE NOTES: Received patient in bed, awake, alert, oriented x1/2, patient is very forgetful, on 2 liters NC, patient has 3 way Robertson with continuous and manual irrigation. IV site is clean dry and intact, call light is within reach, bed is lowered, locked, alarm is on, will continue to monitor for comfort and safety.
[2020-03-17 20:00] VITALS: BP 125/51
[2020-03-17] MEDS: Atorvastatin 20mg tab ORAL SCH (20:28)
[2020-03-17] MEDS: Tamsulosin 0.4mg cap ORAL SCH (20:28)
[2020-03-18] VITALS: BP 130/62
[2020-03-18 04:00] VITALS: BP 127/63
[2020-03-18] MEDS: Meropenem 1gm/NS 55ml IVPB SCH ×4 (06:15→14:33)
[2020-03-18] MEDS: Insulin NovoLOG Flexpen S/S (Mod) SUBQ SCH ×2 (06:24→11:30)
--- NOTE | 2020-03-18 07:21 | NUR ---
NURSE HAND-OFF REPORT: Important Events on Shift:none Patient Status:stable Diet: CCHO med soft easy chew Pending Orders: Pending Results/Labs: Pending MD notification: Latest Vital Signs: Temperature 98.4 , Pulse 58 , B/P 127 /63 , Respiratory Rate 20 , O2 SAT 99 , Room Air, O2 Flow Rate 2.0 . Vital Sign Comment: EKG Rhythm: AV-Paced Rhythm change?: N MD Notified?: - MD Response: Latest Damon Fall Score: 50 Fall Risk: High Risk Safety Measures: Call light Within Reach, Bed Alarm Zone 1, Side Rails Side Rails x3, Bed position Low and Locked. Fall Precautions: Yellow Socks Yellow Gown Door Sign Patient Fall Education Report given to Franco MARLEY
--- NOTE | 2020-03-18 07:30 | NUR ---
NURSE NOTES: Received report from Sania Leigh RN. Patient in supine position, bed elevated at 35 degrees, on 2 liters nasal cannula, however patient has it pulled slightly to the side, bed in lowest position, call light within reach, wheels locked, side rails up x 2, triple lumen catheter in place with irrigation in place, one extra bag in room, IV patent in right forearm running IV fluids, in no apparent distress. Addendum: 03/18/20 at 1636 by DUANE SZYMANSKI RN Error: Not triple lumen catheter, rather, three way catheter with irrigation.
[2020-03-18 08:00] VITALS: BP 143/69
[2020-03-18 08:01] LABS: HEMATOCRIT 28.5 % (42.0-52.0); HEMOGLOBIN 8.9 G/DL (14.2-18.0); MEAN CORPUSCULAR VOLUME 81 FL (80-99); PLATELET COUNT 256 K/UL (150-450); RED BLOOD COUNT 3.51 M/UL (4.70-6.10); RED CELL DISTRIBUTION WIDTH 16.4 % (11.6-14.8)
[2020-03-18 08:03] LABS: WHITE BLOOD COUNT 25.2 K/UL (4.8-10.8)
[2020-03-18 08:12] LABS: ANION GAP 4 mmol/L (5-15); BLOOD UREA NITROGEN 8 mg/dL (7-18); CALCIUM 8.5 MG/DL (8.5-10.1); CARBON DIOXIDE 26 MMOL/L (21-32); CHLORIDE 111 MMOL/L (98-107); POTASSIUM 4.2 MMOL/L (3.5-5.1); SODIUM 141 MMOL/L (136-145)
[2020-03-18] MEDS ORDERED: Fleet's Mineral Oil Enema RECTAL SCH (09:00)
[2020-03-18] MEDS: Lactulose 20gm/30ml UDC ORAL SCH ×2 (09:22→13:00)
[2020-03-18] MEDS: Metoprolol Tartrate 12.5mg TAB ORAL SCH ×2 (09:23→17:07)
[2020-03-18] MEDS: Docusate 100mg cap ORAL SCH ×2 (09:23→13:00)
--- NOTE | 2020-03-18 09:24 | Infectious Diseases Prog Note ---
Assessment/Plan 84yo M with bladder cancer who p/w chest pain, found to have elevated troponin and leukocytosis. Afebrile Sepsis Leukocytosis, overall improved but remains elevated- - no abscess on CT -03/14 CT abd/p: Mass within the bladder increased in size since previous examination. Presumably this represents bladder neoplasm. Air is also noted within the bladder and the possibility of bladder infection or internal fistula to the bladder should be considered. Left hydronephrosis and with air in the left renal collecting system. There is a left ureteral stent. The air likely is coming from the bladder but the possibility of infection again is not excluded. Atherosclerotic change. Degenerative change in the spine.Cholelithiasis. Bilateral pleural effusions, right greater than left.Subcutaneous edema consistent with mild anasarca. UTI/pyelonephritis, UA with tnct WBC, UCx >100k ESBL Ec.coli Rapid COVID neg x1 -8.4 CXR: Some crowding of markings remain inthe lung bases likely related to a limited inspiration and low lung volumes. No newalveolar process. CXR unremarkable, satting well on 2L NC R/o bacteremia / BCx NTD 8/ BCx NTD NSTEMI w/ elevated troponin, can also be a cause of reactive leukocytosis Bladder cancer Hematuria Plan: Repeat blood and Urine Cx Continue Meropenem #7/10-14 for ESBL UTI/pyelo -/3 SP IV Vancomycijn #2, Cefepime #2 No diarrhea, but if occurs check C.dif Trend resp status Trend leukocytosis daily Monitor CBC, CMP D/w RN Thank you for this consult. [facility] will continue to follow. Subjective Allergies: Coded Allergies: No Known Allergies (Unverified , 04/09/16) Afebrile WBCs improved a little today Objective Last 24 Hour Vital Signs Date Time Temp Pulse Resp B/P (MAP) Pulse Ox O2 Delivery O2 Flow Rate FiO2 03/18/20 08:30 99 Nasal Cannula 2.0 28 03/18/20 08:00 103 03/18/20 08:00 97.7 82 19 143/69 (93) 100 03/18/20 04:00 98.4 58 20 127/63 (84) 99 03/18/20 04:00 61 03/18/20 00:00 98.2 69 20 130/62 (84) 100 03/18/20 00:00 70 03/17/20 21:11 Room Air 03/17/20 20:00 98.4 76 24 125/51 (75) 03/17/20 20:00 65 03/17/20 18:23 60 120/61 03/17/20 16:00 71 03/17/20 16:00 97.9 71 18 114/64 (81) 100 03/17/20 12:00 98.1 71 19 120/61 (80) 100 03/17/20 12:00 60 Height (Feet): 5 Height (Inches): 9.00 Weight (Pounds): 164 Gen: NAD on 2L nC HEENT: OP clear, MM dry, CV: RRR Pulm: CTAB anteriorly Abd: Soft, thin, NTND Laboratory Tests Test 03/17/20 11:52 03/17/20 17:14 03/18/20 06:30 POC Whole Blood Glucose 123 MG/DL (74-106) H 119 MG/DL (74-106) H White Blood Count 25.2 K/UL (4.8-10.8) *H Red Blood Count 3.51 M/UL (4.70-6.10) L Hemoglobin 8.9 G/DL (14.2-18.0) L Hematocrit 28.5 % (42.0-52.0) L Mean Corpuscular Volume 81 FL (80-99) Mean Corpuscular Hemoglobin 25.5 PG (27.0-31.0) L Mean Corpuscular Hemoglobin Concent 31.3 G/DL (32.0-36.0) L Red Cell Distribution Width 16.4 % (11.6-14.8) H Platelet Count 256 K/UL (150-450) Mean Platelet Volume 5.8 FL (6.5-10.1) L Neutrophils (%) (Auto) % (45.0-75.0) Lymphocytes (%) (Auto) % (20.0-45.0) Monocytes (%) (Auto) % (1.0-10.0) Eosinophils (%) (Auto) % (0.0-3.0) Basophils (%) (Auto) % (0.0-2.0) Neutrophils % (Manual) Pending Lymphocytes % (Manual) Pending Platelet Estimate Pending Platelet Morphology Pending Sodium Level 141 MMOL/L (136-145) Potassium Level 4.2 MMOL/L (3.5-5.1) Chloride Level 111 MMOL/L (98-107) H Carbon Dioxide Level 26 MMOL/L (21-32) Anion Gap 4 mmol/L (5-15) L Blood Urea Nitrogen 8 mg/dL (7-18) Creatinine 1.0 MG/DL (0.55-1.30) Estimat Glomerular Filtration Rate > 60 mL/min (>60) Glucose Level 88 MG/DL (74-106) Calcium Level 8.5 MG/DL (8.5-10.1) Current Medications Medications (Trade) Dose Ordered Sig/Levi Route PRN Reason Start Time Stop Time Status Last Admin Dose Admin Acetaminophen (Tylenol) 650 mg Q4H PRN ORAL fever (T>100.5F) 03/13/20 04:45 04/09/20 04:44 03/15/20 21:10 Atorvastatin Calcium (Lipitor) 20 mg BEDTIME ORAL 03/13/20 21:00 06/09/20 20:59 03/17/20 20:28 Dextrose (Dextrose 50%) 25 ml Q30M PRN IV Hypoglycemia 03/13/20 05:00 06/11/20 04:59 Dextrose (Dextrose 50%) 50 ml Q30M PRN IV Hypoglycemia 03/13/20 05:00 06/08/20 14:29 Docusate Sodium (Colace) 100 mg THREE TIMES A DAY ORAL 03/16/20 18:00 04/15/20 17:59 03/17/20 12:52 Finasteride (Proscar) 5 mg DAILY ORAL 03/13/20 09:00 06/09/20 08:59 03/17/20 08:56 Insulin Aspart (NovoLOG) No Dose BEFORE MEALS AND HS SUBQ 03/17/20 06:30 06/15/20 06:29 Lactulose (Cephulac) 30 gm THREE TIMES A DAY ORAL 03/16/20 18:00 04/15/20 17:59 03/17/20 12:52 Lidocaine HCl (Xylocaine Jelly 2%) 1 applic DAILYPRN PRN TOPIC for pain in penile region 03/16/20 08:00 06/14/20 07:59 Meropenem 1 gm/ Sodium Chloride 55 ml @ 110 mls/hr Q8HR IVPB 03/14/20 14:00 03/24/20 23:59 03/18/20 06:15 Metoprolol Tartrate (Lopressor) 12.5 mg BID ORAL 03/13/20 09:00 06/08/20 21:59 03/17/20 18:23 Mineral Oil (Fleet's Mineral Oil Enema) 133 ml EVERY OTHER DAY RECTAL 03/18/20 09:00 04/17/20 08:59 Nateglinide (Starlix) 120 mg DAILY ORAL 03/13/20 09:00 04/10/20 08:59 03/17/20 08:56 Nitroglycerin (Ntg) 0.4 mg Q5M PRN SL Prn Chest Pain 03/13/20 04:45 04/09/20 14:29 Ondansetron HCl (Zofran) 4 mg Q6H PRN IVP Nausea & Vomiting 03/13/20 04:45 04/09/20 04:44 Polyethylene Glycol (Miralax) 17 gm DAILYPRN PRN ORAL Constipation 03/13/20 04:45 04/09/20 04:44 Sodium Chloride 1,000 ml @ 100 mls/hr Q10H IVLG 03/13/20 04:45 04/09/20 16:14 03/18/20 04:57 Tamsulosin HCl (Flomax) 0.4 mg BEDTIME ORAL 03/13/20 21:00 04/09/20 20:59 03/17/20 20:28 Newton Piña MD Mar 18, 2020 09:24
[2020-03-18] MEDS ORDERED: Albuterol/Ipratropium 3ml neb HHN PRN (10:00)
[2020-03-18 12:00] VITALS: BP 134/70
--- NOTE | 2020-03-18 14:07 | Internal Med Progress Note ---
Subjective Date of Service: Mar 18, 2020 Physician Name Jean-Claude Peter Attending Physician Jaziel Lowe MD Current Medications Medications (Trade) Dose Ordered Sig/Levi Route PRN Reason Start Time Stop Time Status Last Admin Dose Admin Acetaminophen (Tylenol) 650 mg Q4H PRN ORAL fever (T>100.5F) 03/13/20 04:45 04/09/20 04:44 03/15/20 21:10 Albuterol/ Ipratropium (Albuterol/ Ipratropium) 3 ml Q4HRT PRN HHN Shortness of Breath 03/18/20 10:00 03/23/20 09:59 03/18/20 10:09 Atorvastatin Calcium (Lipitor) 20 mg BEDTIME ORAL 03/13/20 21:00 06/09/20 20:59 03/17/20 20:28 Dextrose (Dextrose 50%) 25 ml Q30M PRN IV Hypoglycemia 03/13/20 05:00 06/11/20 04:59 Dextrose (Dextrose 50%) 50 ml Q30M PRN IV Hypoglycemia 03/13/20 05:00 06/08/20 14:29 Finasteride (Proscar) 5 mg DAILY ORAL 03/13/20 09:00 06/09/20 08:59 03/18/20 09:22 Insulin Aspart (NovoLOG) No Dose BEFORE MEALS AND HS SUBQ 03/17/20 06:30 06/15/20 06:29 Lidocaine HCl (Xylocaine Jelly 2%) 1 applic DAILYPRN PRN TOPIC for pain in penile region 03/16/20 08:00 06/14/20 07:59 Meropenem 1 gm/ Sodium Chloride 55 ml @ 110 mls/hr Q8HR IVPB 03/14/20 14:00 03/24/20 23:59 03/18/20 06:15 Metoprolol Tartrate (Lopressor) 12.5 mg BID ORAL 03/13/20 09:00 06/08/20 21:59 03/18/20 09:23 Nateglinide (Starlix) 120 mg DAILY ORAL 03/13/20 09:00 04/10/20 08:59 03/18/20 09:22 Nitroglycerin (Ntg) 0.4 mg Q5M PRN SL Prn Chest Pain 03/13/20 04:45 04/09/20 14:29 Ondansetron HCl (Zofran) 4 mg Q6H PRN IVP Nausea & Vomiting 03/13/20 04:45 04/09/20 04:44 Polyethylene Glycol (Miralax) 17 gm DAILYPRN PRN ORAL Constipation 03/13/20 04:45 04/09/20 04:44 03/18/20 09:22 Sodium Chloride 1,000 ml @ 100 mls/hr Q10H IVLG 03/13/20 04:45 04/09/20 16:14 03/18/20 04:57 Tamsulosin HCl (Flomax) 0.4 mg BEDTIME ORAL 03/13/20 21:00 04/09/20 20:59 03/17/20 20:28 Allergies: Coded Allergies: No Known Allergies (Unverified , 04/09/16) ROS Limited/Unobtainable: No Constitutional: Reports: no symptoms HEENT: Reports: no symptoms Cardiovascular: Reports: no symptoms Respiratory: Reports: no symptoms Gastrointestinal/Abdominal: Reports: no symptoms Genitourinary: Reports: no symptoms 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: Reports: no symptoms Subjective 84 YO M with a history of bladder cancer admitted with chest pain. Cover for Int Med-DR Lowe. Tele Objective Last Vital Signs Date Time Temp Pulse Resp B/P (MAP) Pulse Ox O2 Delivery O2 Flow Rate FiO2 03/18/20 12:00 69 03/18/20 12:00 98.7 18 134/70 (91) 96 03/18/20 10:24 Nasal Cannula 2.0 28 Laboratory Tests Test 03/17/20 17:14 03/18/20 06:30 POC Whole Blood Glucose 119 MG/DL (74-106) H White Blood Count 25.2 K/UL (4.8-10.8) *H Red Blood Count 3.51 M/UL (4.70-6.10) L Hemoglobin 8.9 G/DL (14.2-18.0) L Hematocrit 28.5 % (42.0-52.0) L Mean Corpuscular Volume 81 FL (80-99) Mean Corpuscular Hemoglobin 25.5 PG (27.0-31.0) L Mean Corpuscular Hemoglobin Concent 31.3 G/DL (32.0-36.0) L Red Cell Distribution Width 16.4 % (11.6-14.8) H Platelet Count 256 K/UL (150-450) Mean Platelet Volume 5.8 FL (6.5-10.1) L Neutrophils (%) (Auto) % (45.0-75.0) Lymphocytes (%) (Auto) % (20.0-45.0) Monocytes (%) (Auto) % (1.0-10.0) Eosinophils (%) (Auto) % (0.0-3.0) Basophils (%) (Auto) % (0.0-2.0) Differential Total Cells Counted 100 Neutrophils % (Manual) 86 % (45-75) H Lymphocytes % (Manual) 10 % (20-45) L Monocytes % (Manual) 4 % (1-10) Eosinophils % (Manual) 0 % (0-3) Basophils % (Manual) 0 % (0-2) Band Neutrophils 0 % (0-8) Platelet Estimate Adequate Platelet Morphology Normal Hypochromasia 1+ Anisocytosis 1+ Sodium Level 141 MMOL/L (136-145) Potassium Level 4.2 MMOL/L (3.5-5.1) Chloride Level 111 MMOL/L (98-107) H Carbon Dioxide Level 26 MMOL/L (21-32) Anion Gap 4 mmol/L (5-15) L Blood Urea Nitrogen 8 mg/dL (7-18) Creatinine 1.0 MG/DL (0.55-1.30) Estimat Glomerular Filtration Rate > 60 mL/min (>60) Glucose Level 88 MG/DL (74-106) Calcium Level 8.5 MG/DL (8.5-10.1) Intake and Output 03/17/20 03/18/20 19:00 07:00 Intake Total 4740 ml 4000 ml Output Total 4900 ml 5400 ml Balance -160 ml -1400 ml Intake Oral 240 ml Other 4500 ml 4000 ml Output Urine Total 4900 ml 5400 ml # Voids 1 # Bowel Movements 4 2 Objective PHYSICAL EXAMINATION: GENERAL: The patient is a well-developed and well-nourished male, in no apparent distress. HEENT: Eyes, pupils are equal and responsive to light and accommodation. Extraocular movements are intact. NECK: Supple without lymphadenopathy. CHEST: Lungs are clear to auscultation bilaterally without wheezes or rales. CARDIOVASCULAR: Regular rhythm and rate. S1, S2 are normal without murmurs, rubs, or gallops. ABDOMEN: Soft, nontender, and nondistended. Positive bowel sounds. No evidence of hepatosplenomegaly. Currently, no rebound or guarding noted. EXTREMITIES: Negative for clubbing, cyanosis, or edema. RECTAL/GENITAL: Not performed. NEUROLOGIC: Cranial nerves II through XII are grossly intact without focal deficits. Motor strength is 5/5 bilaterally. Deep tendon reflexes are 2+ plantar. Assessment/Plan Assessment/Plan ASSESSMENT: This is an 84-year-old male. 1. Chest pain. 2. Elevated troponin level. 3. Bladder cancer. 4. Gastritis. 5. Hypertension. 6. Diabetes type 2. 7. Atrioventricular conduction defect. 8. Alzheimer's dementia. 9. Cerebrovascular disease. 10. Right hemiplegia. 11. Pacemaker in situ. 12. Urinary tract infection=ESBL E. Coli 13. Persistant leukocytosis due to UTI 14. Hematuria TREATMENT: 1. Chest pain/elevated troponin. A Cardiology consultation has been obtained with Dr. Nj Valenzuela. We will follow recommendations of Cardiology. 2. Bladder cancer. CT=bladder mass increased in size from prior. Urology= Dr. Macho Allen. The patient is status post transurethral resection of bladder tumor x2. We will follow recommendations of Urology. 3. Gastritis. Continue Protonix as above. 4. Hypertension. 5. Diabetes type 2. A NovoLog sliding scale has been instituted. 6. Atrioventricular conduction defect. The patient is status post pacemaker implantation. 7. Alzheimer's dementia. 8. Cerebrovascular disease, status post cerebrovascular accident. 9. Right hemiplegia. 10. ABX=meropenem per ID=Dr Darby 11. Bladder irrigation per urology Jean-Claude Peter MD Mar 18, 2020 14:07
[2020-03-18 16:00] VITALS: BP 109/59
--- NOTE | 2020-03-18 16:00 | Cardiology Progress Note ---
Assessment/Plan Assessment/Plan acute MT, clinically stable\ limited options in terms for blood thinners due to hematuria Subjective Subjective The patient is lethargic and lightly confused denied chest pian Objective Last 24 Hour Vital Signs Date Time Temp Pulse Resp B/P (MAP) Pulse Ox O2 Delivery O2 Flow Rate FiO2 03/18/20 12:00 69 03/18/20 12:00 98.7 70 18 134/70 (91) 96 03/18/20 10:24 69 18 96 Nasal Cannula 2.0 28 76 18 94 03/18/20 09:23 103 143/69 03/18/20 09:00 Room Air 03/18/20 08:30 99 Nasal Cannula 2.0 28 03/18/20 08:00 103 03/18/20 08:00 97.7 82 19 143/69 (93) 100 03/18/20 04:00 98.4 58 20 127/63 (84) 99 03/18/20 04:00 61 03/18/20 00:00 98.2 69 20 130/62 (84) 100 03/18/20 00:00 70 03/17/20 21:11 Room Air 03/17/20 20:00 98.4 76 24 125/51 (75) 03/17/20 20:00 65 03/17/20 18:23 60 120/61 03/17/20 16:00 71 03/17/20 16:00 97.9 71 18 114/64 (81) 100 General Appearance: lethargic EENT: pale conjunctivae Neck: supple Rhythm: NSR Cardiovascular: regular rhythm Respiratory/Chest: crackles/rales Abdomen: non tender, soft Extremities: trace edema Intake and Output 03/17/20 03/18/20 19:00 07:00 Intake Total 4740 ml 4055 ml Output Total 4900 ml 5400 ml Balance -160 ml -1345 ml Intake Oral 240 ml IV Total 55 ml Other 4500 ml 4000 ml Output Urine Total 4900 ml 5400 ml # Voids 1 # Bowel Movements 4 2 Laboratory Tests Test 03/17/20 17:14 03/18/20 06:30 POC Whole Blood Glucose 119 MG/DL (74-106) H White Blood Count 25.2 K/UL (4.8-10.8) *H Red Blood Count 3.51 M/UL (4.70-6.10) L Hemoglobin 8.9 G/DL (14.2-18.0) L Hematocrit 28.5 % (42.0-52.0) L Mean Corpuscular Volume 81 FL (80-99) Mean Corpuscular Hemoglobin 25.5 PG (27.0-31.0) L Mean Corpuscular Hemoglobin Concent 31.3 G/DL (32.0-36.0) L Red Cell Distribution Width 16.4 % (11.6-14.8) H Platelet Count 256 K/UL (150-450) Mean Platelet Volume 5.8 FL (6.5-10.1) L Neutrophils (%) (Auto) % (45.0-75.0) Lymphocytes (%) (Auto) % (20.0-45.0) Monocytes (%) (Auto) % (1.0-10.0) Eosinophils (%) (Auto) % (0.0-3.0) Basophils (%) (Auto) % (0.0-2.0) Differential Total Cells Counted 100 Neutrophils % (Manual) 86 % (45-75) H Lymphocytes % (Manual) 10 % (20-45) L Monocytes % (Manual) 4 % (1-10) Eosinophils % (Manual) 0 % (0-3) Basophils % (Manual) 0 % (0-2) Band Neutrophils 0 % (0-8) Platelet Estimate Adequate Platelet Morphology Normal Hypochromasia 1+ Anisocytosis 1+ Sodium Level 141 MMOL/L (136-145) Potassium Level 4.2 MMOL/L (3.5-5.1) Chloride Level 111 MMOL/L (98-107) H Carbon Dioxide Level 26 MMOL/L (21-32) Anion Gap 4 mmol/L (5-15) L Blood Urea Nitrogen 8 mg/dL (7-18) Creatinine 1.0 MG/DL (0.55-1.30) Estimat Glomerular Filtration Rate > 60 mL/min (>60) Glucose Level 88 MG/DL (74-106) Calcium Level 8.5 MG/DL (8.5-10.1) Fannie Berger MD Mar 18, 2020 16:00
[2020-03-18] MEDS ORDERED: Lidocaine HCl 2% Jelly 6ml Tube TOPIC PRN (16:30)
[2020-03-18] MEDS ORDERED: Nitroglycerin Subl 0.4mg tab SL PRN (16:30)
[2020-03-18] MEDS: NovoLOG Insulin Flexpen SUBQ SCH ×2 (16:30→21:00)
[2020-03-18] MEDS ORDERED: Miralax 17gm pkt ORAL PRN (16:31)
--- NOTE | 2020-03-18 16:36 | NUR ---
NURSE NOTES: RECEIVED PATIENT A/A/OX1 IN BED CALM AND COMFORTABLE. ON CBI WITH BRIGHT RED WITH BLOOD TINGED PRESENTS. HAND IRRIGATED BY TRANSFERRING NURSE AND HOUR AGO STATED BY REPORT. PIV PATENT AND INTACT. IVF INFUSING WELL. VSS WITH SATING 98% VIA RA. KEPT HOB ELEVATED FOR ADEQUATE VENTILATION. NO PERSONAL BELONGINGS NOTED. SKIN IS INTACT. KEPT BED IN THE LOWEST POSITION. SIDERAILS ARE UPX3. CALL LIGHT IS WITHIN REACH. BED BRAKES AND LOCK ENGAGED @ ALL TIMES. WILL CONT TO MONITOR.
--- NOTE | 2020-03-18 16:37 | NUR ---
TRANSFER TO FLOOR: Patient transferred to [facility], per MD. Report given to Dina Ramsey LVN. Belongings and medications given to Dina Ramsey LVN. Family and or S/O informed of transfer (left message on voicemail of Vishnu Boyd (son).)
--- NOTE | 2020-03-18 18:49 | Urology Progress Note ---
Assessment/Plan Assessment/Plan: 1. Gross hematuria. 2. Bladder cancer history with enlarging bladder mass. 3. Left-sided hydro, which is chronic. 4. BPH history. 5. Urinary retention. 6. UTI. 7. Proteinuria. 8. Neurogenic bladder. maintain hernandez, 3-way placed 03/15 CBI, titrate rate to keep clear hernandez hand irrigated and do PRN no sig clots noted abx as ordered monitor h/h, wbc off ASA since 03/13 flomax and proscar consider cysto if feasible med/onc f/u d/w nursing staff Subjective Allergies: Coded Allergies: No Known Allergies (Unverified , 04/09/16) Subjective all noted, comfortable CBI running Objective Last 24 Hour Vital Signs Date Time Temp Pulse Resp B/P (MAP) Pulse Ox O2 Delivery O2 Flow Rate FiO2 03/18/20 17:07 63 109/59 03/18/20 16:00 98.2 63 18 109/59 (76) 98 03/18/20 12:00 69 03/18/20 12:00 98.7 70 18 134/70 (91) 96 03/18/20 10:24 69 18 96 Nasal Cannula 2.0 28 76 18 94 03/18/20 09:23 103 143/69 03/18/20 09:00 Room Air 03/18/20 08:30 99 Nasal Cannula 2.0 28 03/18/20 08:00 103 03/18/20 08:00 97.7 82 19 143/69 (93) 100 03/18/20 04:00 98.4 58 20 127/63 (84) 99 03/18/20 04:00 61 03/18/20 00:00 98.2 69 20 130/62 (84) 100 03/18/20 00:00 70 03/17/20 21:11 Room Air 03/17/20 20:00 98.4 76 24 125/51 (75) 03/17/20 20:00 65 Intake and Output 03/17/20 03/18/20 19:00 07:00 Intake Total 4740 ml 4055 ml Output Total 4900 ml 5400 ml Balance -160 ml -1345 ml Intake Oral 240 ml IV Total 55 ml Other 4500 ml 4000 ml Output Urine Total 4900 ml 5400 ml # Voids 1 # Bowel Movements 4 2 Microbiology Date/Time Source Procedure Growth Status 03/11/20 09:30 Blood Blood Culture - Final NO GROWTH AFTER 5 DAYS Complete 03/12/20 06:05 Nasal Nares MRSA Culture - Final NO METHICILLIN RESISTANT STAPH AUREUS... Complete 03/10/20 18:30 Urine,Clean Catch Urine Culture - Final Escherichia Coli - Esbl Complete 03/12/20 04:00 Rectum VRE Culture - Final Enterococcus Faecalis - Vre Complete Current Medications Medications (Trade) Dose Ordered Sig/Levi Route PRN Reason Start Time Stop Time Status Last Admin Dose Admin Acetaminophen (Tylenol) 650 mg Q4H PRN ORAL fever (T>100.5F) 03/18/20 16:45 04/09/20 04:44 Albuterol/ Ipratropium (Albuterol/ Ipratropium) 3 ml Q4HRT PRN HHN Shortness of Breath 03/18/20 19:00 03/23/20 09:59 Atorvastatin Calcium (Lipitor) 20 mg BEDTIME ORAL 03/18/20 21:00 06/09/20 20:59 Dextrose (Dextrose 50%) 25 ml Q30M PRN IV Hypoglycemia 03/18/20 16:30 06/11/20 04:59 Dextrose (Dextrose 50%) 50 ml Q30M PRN IV Hypoglycemia 03/18/20 16:30 06/08/20 14:29 Finasteride (Proscar) 5 mg DAILY ORAL 03/19/20 09:00 06/09/20 08:59 Insulin Aspart (NovoLOG) No Dose BEFORE MEALS AND HS SUBQ 03/18/20 16:30 06/15/20 06:29 Lidocaine HCl (Xylocaine Jelly 2%) 1 applic DAILYPRN PRN TOPIC for pain in penile region 03/18/20 16:30 06/16/20 16:29 Meropenem 1 gm/ Sodium Chloride 55 ml @ 110 mls/hr Q8HR IVPB 03/18/20 22:00 03/24/20 23:59 Metoprolol Tartrate (Lopressor) 12.5 mg BID ORAL 03/18/20 18:00 06/08/20 21:59 Nateglinide (Starlix) 120 mg DAILY ORAL 03/19/20 09:00 04/10/20 08:59 Nitroglycerin (Ntg) 0.4 mg Q5M PRN SL Prn Chest Pain 03/18/20 16:30 04/09/20 14:29 Ondansetron HCl (Zofran) 4 mg Q6H PRN IVP Nausea & Vomiting 03/18/20 16:45 04/09/20 04:44 Polyethylene Glycol (Miralax) 17 gm DAILYPRN PRN ORAL Constipation 03/18/20 16:31 04/17/20 16:30 Sodium Chloride 1,000 ml @ 100 mls/hr Q10H IVLG 03/18/20 16:30 04/09/20 16:14 03/18/20 17:07 Tamsulosin HCl (Flomax) 0.4 mg BEDTIME ORAL 03/18/20 21:00 04/09/20 20:59 Laboratory Tests 03/18/20 06:30: White Blood Count 25.2*H, Red Blood Count 3.51L, Hemoglobin 8.9L, Hematocrit 28.5L, Mean Corpuscular Volume 81, Mean Corpuscular Hemoglobin 25.5L, Mean Corpuscular Hemoglobin Concent 31.3L, Red Cell Distribution Width 16.4H, Platelet Count 256, Mean Platelet Volume 5.8L, Neutrophils (%) (Auto) , Lymphocytes (%) (Auto) , Monocytes (%) (Auto) , Eosinophils (%) (Auto) , Basophils (%) (Auto) , Differential Total Cells Counted 100, Neutrophils % ( Manual) 86H, Lymphocytes % (Manual) 10L, Monocytes % (Manual) 4, Eosinophils % ( Manual) 0, Basophils % (Manual) 0, Band Neutrophils 0, Platelet Estimate Adequate, Platelet Morphology Normal, Hypochromasia 1+, Anisocytosis 1+, Sodium Level 141, Potassium Level 4.2, Chloride Level 111H, Carbon Dioxide Level 26, Anion Gap 4L, Blood Urea Nitrogen 8, Creatinine 1.0, Estimat Glomerular Filtration Rate > 60, Glucose Level 88, Calcium Level 8.5 Height (Feet): 5 Height (Inches): 9.00 Weight (Pounds): 174 Objective exam stable hernandez indwelling, CBI mild-moderate rate urine blood-tinged Rmshray,Macho Oliver MD Mar 18, 2020 18:49
--- NOTE | 2020-03-18 19:16 | NUR ---
NURSE HAND-OFF: Important Events on Shift: CONTINUE ON CBI MONITORING. Patient Status: Diet: Pending Orders: Pending Results/Labs: Pending MD notification: Latest Vital Signs: Temperature 98.2 , Pulse 63 , B/P 109 /59 , Respiratory Rate 18 , O2 SAT 98 , Room Air, O2 Flow Rate 2.0 . Vital Sign Comment: Latest Damon Fall Score: 50 Fall Risk: High Risk Safety Measures: Call light Within Reach, Bed Alarm Zone 1, Side Rails Side Rails x3, Bed position Low and Locked. Fall Precautions: Yellow Socks Yellow Gown Door Sign Patient Fall Education Report given to .
--- NOTE | 2020-03-18 19:53 | NUR ---
NURSE NOTES: RECEIVED PATIENT LYING IN BED,AWAKE, ALERT TO PERSON, PLACE,REALITY ORIENTATION PROVIDED DURING ASSESSMENT, DENIES PAIN, 3 WAY SULLIVAN CATHETER/CONTINUOUS BLADDER IRRIGATION ONGOING, EMPTIED APPROX 1000ML OF URINE/LIGHT [place] COLOR, NO VISIBLE CLOTS. NO SIGNS AND SYMPTOMS OF ACUTE CARDIO RESPIRATORY DISTRESS/SHORTNESS OF BREATH, DENIES CHEST PAIN, NO EDEMA NOTED. ABDOMEN SOFT/NON DISTENDED/AUDIBLE BOWEL SOUNDS, NO REPORT OF N/V, FAIR APPETITE, 1 TO 1 FEEDER. FALL PRECAUTIONS OBSERVED - SIDE RAIL UP X3, BED IN LOWEST POSITION FOR SAFETY, ENCOURAGED PATIENT TO UTILIZE CALL LIGHT FOR ASSISTANCE, BED ALARM ACTIVATED. FREQUENT ROUNDING FOR SAFETY/NEEDS. CONTINUE WITH CURRENT PLAN OF CARE. NAD.
[2020-03-18 20:00] VITALS: BP 134/52
[2020-03-18] MEDS: Tamsulosin 0.4mg cap ORAL SCH (21:21)
[2020-03-18] MEDS: Atorvastatin 20mg tab ORAL SCH (21:22)
[2020-03-18] MEDS ORDERED: Meropenem 1 GM in NS 55 ML IVPB SCH (22:00)
[2020-03-18] MEDS: Piperacillin/Tazobactam 3.375 GM in NS 110 ML IVPB SCH (22:53)
[2020-03-18] MEDS ORDERED: Vancomycin 2gm/D5W 550ml IVPB ONE ×2 (23:00)
[2020-03-19] VITALS (7 sets, daily range): BP systolic 101–133; BP diastolic 45–87
[2020-03-19] MEDS: Piperacillin/Tazobactam 3.375 GM in NS 110 ML IVPB SCH ×3 (05:11→20:58)
[2020-03-19] MEDS: NovoLOG Insulin Flexpen SUBQ SCH ×4 (06:15→20:57)
--- NOTE | 2020-03-19 07:47 | NUR ---
NURSE NOTES: Received report from DONELL Pierre. Received patient in bed, AAOx 2, on room air , and bed bound. Patient is on CBI currently draining light red urine. IV site patent and intact, fluid infusing well. 3 way hernandez catheter noted. Patient denies pain or SOB at this time. HOB elevated for adequate ventilation. Skin is intact. Bed is locked and placed in lowest position with bed alarm on. Call light within reach. Will continue to monitor
--- NOTE | 2020-03-19 07:55 | NUR ---
NURSE HAND-OFF: Important Events on Shift:[3 WAY SULLIVAN CATHETER/CONTINUE IV HYDRATION/TITRATE TO KEEP RELATIVELY CLEAR, HAND IRRIGATE WITH 50-100ML NS/CLOTS] Patient Status: [STABLE] Diet: [CCHO MEDIUM -MECHANICAL SOFT/FINELY CHOPPED/NECTAR THICKENED LIQUID] Pending Orders: [AM LABS] Pending Results/Labs:[] Pending MD notification:[] Latest Vital Signs: Temperature 97.2 , Pulse 72 , B/P 133 /65 , Respiratory Rate 18 , O2 SAT 99 , Room Air, O2 Flow Rate 2.0 . Vital Sign Comment: [STABLE] Latest Damon Fall Score: 50 Fall Risk: High Risk Safety Measures: Call light Within Reach, Bed Alarm Zone 1, Side Rails Side Rails x3, Bed position Low and Locked. Fall Precautions: Yellow Socks Yellow Gown Door Sign Patient Fall Education Report given to CHRISTIAN[].
[2020-03-19 08:32] LABS: HEMATOCRIT 28.8 % (42.0-52.0); MEAN CORPUSCULAR VOLUME 81 FL (80-99); PLATELET COUNT 271 K/UL (150-450); RED BLOOD COUNT 3.56 M/UL (4.70-6.10); RED CELL DISTRIBUTION WIDTH 16.6 % (11.6-14.8)
[2020-03-19 08:43] LABS: WHITE BLOOD COUNT 28.1 K/UL (4.8-10.8)
[2020-03-19] MEDS: Metoprolol Tartrate 12.5mg TAB ORAL SCH ×2 (09:00→17:54)
[2020-03-19 09:10] LABS: ANION GAP 7 mmol/L (5-15); BLOOD UREA NITROGEN 7 mg/dL (7-18); CALCIUM 8.7 MG/DL (8.5-10.1); CARBON DIOXIDE 24 MMOL/L (21-32); CHLORIDE 107 MMOL/L (98-107); SODIUM 138 MMOL/L (136-145)
--- NOTE | 2020-03-19 09:11 | Urology Progress Note ---
Assessment/Plan Assessment/Plan: 1. Gross hematuria. 2. Bladder cancer history with enlarging bladder mass. 3. Left-sided hydro, which is chronic. 4. BPH history. 5. Urinary retention. 6. UTI. 7. Proteinuria. 8. Neurogenic bladder. maintain hernandez, 3-way placed 03/15 CBI, titrate rate to keep clear hernandez hand irrigated and do PRN small clots noted abx as ordered monitor h/h, wbc off ASA since 03/13 flomax and proscar consider cysto if feasible med/onc f/u f/u on last blood cx d/w nursing staff Subjective Allergies: Coded Allergies: No Known Allergies (Unverified , 04/09/16) Subjective all noted, comfortable CBI running Objective Last 24 Hour Vital Signs Date Time Temp Pulse Resp B/P (MAP) Pulse Ox O2 Delivery O2 Flow Rate FiO2 03/19/20 09:00 68 119/87 03/19/20 08:00 97.7 68 20 119/87 (98) 96 03/19/20 04:00 97.2 72 18 133/65 (87) 99 03/19/20 00:00 98.1 75 18 108/52 (70) 97 03/18/20 20:00 98.2 74 18 134/52 (79) 97 03/18/20 17:07 63 109/59 03/18/20 16:00 98.2 63 18 109/59 (76) 98 03/18/20 12:00 69 03/18/20 12:00 98.7 70 18 134/70 (91) 96 03/18/20 10:24 69 18 96 Nasal Cannula 2.0 28 76 18 94 03/18/20 09:23 103 143/69 Intake and Output 03/18/20 03/19/20 19:00 07:00 Intake Total 5160 ml 96797.5 ml Output Total 2400 ml 8300 ml Balance 2760 ml 2867.5 ml Intake Oral 360 ml 480 ml IV Total 800 ml 1687.5 ml Other 4000 ml 9000 ml Output Urine Total 500 ml Other 1900 ml 8300 ml # Bowel Movements 3 Microbiology Date/Time Source Procedure Growth Status 03/17/20 19:00 Blood Blood Culture - Preliminary NO GROWTH AFTER 24 HOURS Resulted 03/12/20 06:05 Nasal Nares MRSA Culture - Final NO METHICILLIN RESISTANT STAPH AUREUS... Complete 03/10/20 18:30 Urine,Clean Catch Urine Culture - Final Escherichia Coli - Esbl Complete 03/12/20 04:00 Rectum VRE Culture - Final Enterococcus Faecalis - Vre Complete Current Medications Medications (Trade) Dose Ordered Sig/Levi Route PRN Reason Start Time Stop Time Status Last Admin Dose Admin Acetaminophen (Tylenol) 650 mg Q4H PRN ORAL fever (T>100.5F) 03/18/20 16:45 04/09/20 04:44 Albuterol/ Ipratropium (Albuterol/ Ipratropium) 3 ml Q4HRT PRN HHN Shortness of Breath 03/18/20 19:00 03/23/20 09:59 Atorvastatin Calcium (Lipitor) 20 mg BEDTIME ORAL 03/18/20 21:00 06/09/20 20:59 03/18/20 21:22 Dextrose (Dextrose 50%) 25 ml Q30M PRN IV Hypoglycemia 03/18/20 16:30 06/11/20 04:59 Dextrose (Dextrose 50%) 50 ml Q30M PRN IV Hypoglycemia 03/18/20 16:30 06/08/20 14:29 Finasteride (Proscar) 5 mg DAILY ORAL 03/19/20 09:00 06/09/20 08:59 03/19/20 09:03 Insulin Aspart (NovoLOG) No Dose BEFORE MEALS AND HS SUBQ 03/18/20 16:30 06/15/20 06:29 Lidocaine HCl (Xylocaine Jelly 2%) 1 applic DAILYPRN PRN TOPIC for pain in penile region 03/18/20 16:30 06/16/20 16:29 Metoprolol Tartrate (Lopressor) 12.5 mg BID ORAL 03/18/20 18:00 06/08/20 21:59 Nateglinide (Starlix) 120 mg DAILY ORAL 03/19/20 09:00 04/10/20 08:59 03/19/20 09:03 Nitroglycerin (Ntg) 0.4 mg Q5M PRN SL Prn Chest Pain 03/18/20 16:30 04/09/20 14:29 Ondansetron HCl (Zofran) 4 mg Q6H PRN IVP Nausea & Vomiting 03/18/20 16:45 04/09/20 04:44 Piperacillin Sod/ Tazobactam Sod 3.375 gm/Sodium Chloride 110 ml @ 27.5 mls/hr EVERY 8 HOURS IVPB 03/18/20 22:00 03/23/20 21:59 03/19/20 05:11 Polyethylene Glycol (Miralax) 17 gm DAILYPRN PRN ORAL Constipation 03/18/20 16:31 04/17/20 16:30 Sodium Chloride 1,000 ml @ 100 mls/hr Q10H IVLG 03/18/20 16:30 04/09/20 16:14 03/19/20 04:42 Tamsulosin HCl (Flomax) 0.4 mg BEDTIME ORAL 03/18/20 21:00 04/09/20 20:59 03/18/20 21:21 [facility]com[facility]) 1 ea DAILY PRN MISC Per rx protocol 03/18/20 21:30 04/17/20 21:29 Vancomycin/Sodium Chloride 275 ml @ 137.5 mls/ hr Q24H IVPB 03/20/20 02:00 03/25/20 01:59 Laboratory Tests 03/19/20 07:25: White Blood Count 28.1*H, Red Blood Count 3.56L, Hemoglobin 9.0L, Hematocrit 28.8L, Mean Corpuscular Volume 81, Mean Corpuscular Hemoglobin 25.3L, Mean Corpuscular Hemoglobin Concent 31.2L, Red Cell Distribution Width 16.6H, Platelet Count 271, Mean Platelet Volume 6.5, Neutrophils (%) (Auto) , Lymphocytes (%) (Auto) , Monocytes (%) (Auto) , Eosinophils (%) (Auto) , Basophils (%) (Auto) , Neutrophils % (Manual) [Pending], Lymphocytes % (Manual) [Pending], Platelet Estimate [Pending], Platelet Morphology [Pending], Sodium Level [Pending], Potassium Level [Pending], Chloride Level [Pending], Carbon Dioxide Level [Pending], Blood Urea Nitrogen [Pending], Creatinine [Pending], Estimat Glomerular Filtration Rate [Pending], Glucose Level [Pending], Calcium Level [Pending] Height (Feet): 5 Height (Inches): 9.00 Weight (Pounds): 174 Objective exam stable hernandez indwelling, CBI mild-moderate rate urine blood-tinged Macho Allen MD Mar 19, 2020 09:11
--- NOTE | 2020-03-19 09:15 | NUR ---
NURSE NOTES: Received call from Debi from microbiology and stated that patient WBC is high 28.1. Message left for MD Darby and RN notified. Awaiting any orders. Addendum: 03/19/20 at 0931 by Hunter Cotter RN Received call back from Dr. Callaway, no new orders. Aware of recent WBC count of 28.1
--- NOTE | 2020-03-19 10:22 | Infectious Diseases Prog Note ---
Assessment/Plan 84yo M with bladder cancer who p/w chest pain, found to have elevated troponin and leukocytosis. Afebrile Sepsis Leukocytosis, overall improved but remains elevated - no abscess on CT -03/14 CT abd/p: Mass within the bladder increased in size since previous examination. Presumably this represents bladder neoplasm. Air is also noted within the bladder and the possibility of bladder infection or internal fistula to the bladder should be considered. Left hydronephrosis and with air in the left renal collecting system. There is a left ureteral stent. The air likely is coming from the bladder but the possibility of infection again is not excluded. Atherosclerotic change. Degenerative change in the spine.Cholelithiasis. Bilateral pleural effusions, right greater than left.Subcutaneous edema consistent with mild anasarca. UTI/pyelonephritis, UA with tnct WBC, UCx >100k ESBL E.coli on 03/10 Rapid COVID neg x1 -03/13 CXR: Some crowding of markings remain inthe lung bases likely related to a limited inspiration and low lung volumes. No newalveolar process. CXR unremarkable, satting well on 2L NC R/o bacteremia 03/11 BCx NTD 03/10 BCx NTD NSTEMI w/ elevated troponin, can also be a cause of reactive leukocytosis Bladder cancer Hematuria Plan: Repeat UA, UCx given increasing WBC, assess for ongoing pyuria Cont Zosyn #1 & vanco #1 empiric broadening given ongoing leukocytosis 03/18 SP latoya #7 for ESBL UTI/pyelo 03/12 SP vanco #2, cefepime #2 F/u Bcx 03/17 No diarrhea, but if occurs check C.dif Trend resp status Trend leukocytosis daily Monitor CBC, CMP D/w RN Thank you for this consult. [facility] will continue to follow. Subjective Allergies: Coded Allergies: No Known Allergies (Unverified , 04/09/16) AF WBC up to 28 from 25 today Not interactive NAD Objective Last 24 Hour Vital Signs Date Time Temp Pulse Resp B/P (MAP) Pulse Ox O2 Delivery O2 Flow Rate FiO2 03/19/20 09:00 68 119/87 03/19/20 09:00 Room Air 03/19/20 08:00 97.7 68 20 119/87 (98) 96 03/19/20 04:00 97.2 72 18 133/65 (87) 99 03/19/20 00:00 98.1 75 18 108/52 (70) 97 03/18/20 20:00 98.2 74 18 134/52 (79) 97 03/18/20 17:07 63 109/59 03/18/20 16:00 98.2 63 18 109/59 (76) 98 03/18/20 12:00 69 03/18/20 12:00 98.7 70 18 134/70 (91) 96 03/18/20 10:24 69 18 96 Nasal Cannula 2.0 28 76 18 94 Height (Feet): 5 Height (Inches): 9.00 Weight (Pounds): 179 Gen: Older man, laying in bed, NAD CV: RRR Pulm: CTAB anteriorly Abd; Soft, NTND Microbiology Date/Time Source Procedure Growth Status 03/17/20 19:00 Blood Blood Culture - Preliminary NO GROWTH AFTER 24 HOURS Resulted 03/17/20 18:45 Blood Blood Culture - Preliminary NO GROWTH AFTER 24 HOURS Resulted Laboratory Tests Test 03/19/20 07:25 White Blood Count 28.1 K/UL (4.8-10.8) *H Red Blood Count 3.56 M/UL (4.70-6.10) L Hemoglobin 9.0 G/DL (14.2-18.0) L Hematocrit 28.8 % (42.0-52.0) L Mean Corpuscular Volume 81 FL (80-99) Mean Corpuscular Hemoglobin 25.3 PG (27.0-31.0) L Mean Corpuscular Hemoglobin Concent 31.2 G/DL (32.0-36.0) L Red Cell Distribution Width 16.6 % (11.6-14.8) H Platelet Count 271 K/UL (150-450) Mean Platelet Volume 6.5 FL (6.5-10.1) Neutrophils (%) (Auto) % (45.0-75.0) Lymphocytes (%) (Auto) % (20.0-45.0) Monocytes (%) (Auto) % (1.0-10.0) Eosinophils (%) (Auto) % (0.0-3.0) Basophils (%) (Auto) % (0.0-2.0) Differential Total Cells Counted 100 Neutrophils % (Manual) 93 % (45-75) H Lymphocytes % (Manual) 5 % (20-45) L Monocytes % (Manual) 1 % (1-10) Eosinophils % (Manual) 1 % (0-3) Basophils % (Manual) 0 % (0-2) Band Neutrophils 0 % (0-8) Platelet Estimate Adequate Platelet Morphology Normal Hypochromasia 1+ Anisocytosis 1+ Sodium Level 138 MMOL/L (136-145) Potassium Level 4.0 MMOL/L (3.5-5.1) Chloride Level 107 MMOL/L (98-107) Carbon Dioxide Level 24 MMOL/L (21-32) Anion Gap 7 mmol/L (5-15) Blood Urea Nitrogen 7 mg/dL (7-18) Creatinine 1.0 MG/DL (0.55-1.30) Estimat Glomerular Filtration Rate > 60 mL/min (>60) Glucose Level 105 MG/DL (74-106) Calcium Level 8.7 MG/DL (8.5-10.1) Current Medications Medications (Trade) Dose Ordered Sig/Levi Route PRN Reason Start Time Stop Time Status Last Admin Dose Admin Acetaminophen (Tylenol) 650 mg Q4H PRN ORAL fever (T>100.5F) 03/18/20 16:45 04/09/20 04:44 Albuterol/ Ipratropium (Albuterol/ Ipratropium) 3 ml Q4HRT PRN HHN Shortness of Breath 03/18/20 19:00 03/23/20 09:59 Atorvastatin Calcium (Lipitor) 20 mg BEDTIME ORAL 03/18/20 21:00 06/09/20 20:59 03/18/20 21:22 Dextrose (Dextrose 50%) 25 ml Q30M PRN IV Hypoglycemia 03/18/20 16:30 06/11/20 04:59 Dextrose (Dextrose 50%) 50 ml Q30M PRN IV Hypoglycemia 03/18/20 16:30 06/08/20 14:29 Finasteride (Proscar) 5 mg DAILY ORAL 03/19/20 09:00 06/09/20 08:59 03/19/20 09:03 Insulin Aspart (NovoLOG) No Dose BEFORE MEALS AND HS SUBQ 03/18/20 16:30 06/15/20 06:29 Lidocaine HCl (Xylocaine Jelly 2%) 1 applic DAILYPRN PRN TOPIC for pain in penile region 03/18/20 16:30 06/16/20 16:29 Metoprolol Tartrate (Lopressor) 12.5 mg BID ORAL 03/18/20 18:00 06/08/20 21:59 Nateglinide (Starlix) 120 mg DAILY ORAL 03/19/20 09:00 04/10/20 08:59 03/19/20 09:03 Nitroglycerin (Ntg) 0.4 mg Q5M PRN SL Prn Chest Pain 03/18/20 16:30 04/09/20 14:29 Ondansetron HCl (Zofran) 4 mg Q6H PRN IVP Nausea & Vomiting 03/18/20 16:45 04/09/20 04:44 Piperacillin Sod/ Tazobactam Sod 3.375 gm/Sodium Chloride 110 ml @ 27.5 mls/hr EVERY 8 HOURS IVPB 03/18/20 22:00 03/23/20 21:59 03/19/20 05:11 Polyethylene Glycol (Miralax) 17 gm DAILYPRN PRN ORAL Constipation 03/18/20 16:31 04/17/20 16:30 Sodium Chloride 1,000 ml @ 100 mls/hr Q10H IVLG 03/18/20 16:30 04/09/20 16:14 03/19/20 04:42 Tamsulosin HCl (Flomax) 0.4 mg BEDTIME ORAL 03/18/20 21:00 04/09/20 20:59 03/18/20 21:21 Vancomycin HCl ([facility] pharmacy to dose) 1 ea DAILY PRN MISC Per rx protocol 03/18/20 21:30 04/17/20 21:29 Vancomycin/Sodium Chloride 275 ml @ 137.5 mls/ hr Q24H IVPB 03/20/20 02:00 03/25/20 01:59 Carlie Callaway M.D. Mar 19, 2020 10:22
--- NOTE | 2020-03-19 10:49 | NUR ---
SWALLOW STATUS/DYSPHAGIA MANAGEMENT PATIENT CLEARED FOR ST INTERVENTION BY DONELL GONZALES.. PATIENT RECEIVED SITTING UPRIGHT IN BED. HE WAS AWAKE/ALERT, HE KNEW HE WAS ORIENTED TO PLACE/ HOSPITAL BUT WAS NOT ORIENTED TO YEAR/DAY OF WEEK/SITUATION. BASELINE VITAL SIGNS: ON ROOM AIR: 20 BPM, 02 SAT: 98% NUTRITION RE/ASSESSMENT: Discussion (03/13) Pt noted to have temporal and clavicular wasting. H/o CVA, on ms chopped texture diet w/ variable po intake. On oral and IM hypoglycemics, BG is variable. No wounds. WBC remains critical, afebrile. Pt appears c/w above % IBW-> 97%. Per MD: pt w/ HI. Per MD: severe anemia.etiology not yet apparent, hematuria, history of bladder tumor status post recent treatment in November. (03/14) RN verbal referral for supplements. D/w pm RN-> pt on [facility] MED diet, rec Glucerna. POC has been variable: 85-174. S/p GETTERER eval-> pt remains on chopped texture diet now w/ NTL. PO intake is variable: intake for only 1 meal recorded yesterday (50%); the day before that 50-75-100%. Pt would benefit from Glucerna TID w/ continued 50% intake. WBC remains critical. Afebrile. Lytes wnl today. BG wnl, 78. Rec close monitoring for hypoglycemia w/ con't fair po intake. (03/16) PO intake is variable: poor to fair. Glucerna initially added as per RD recs now removed. Pt was NPO(03/15) for CT abdomen, supplement may have been erroneously omitted when re-entering diet order. WBC remains critical. Afebrile. Lytes low today. BG wnl, no noted hypoglycemic episode w/ variable po intake. Daily wts: 161 153#. Unclear reason for 8# wt increase, will use initial wt until calibrated bed scale wt is verified. P.O. INTAKE HAS BEEN VARIABLE, AVERAGING LESS THAN 50%, MEALTIME SUPPLEMENTATION NOW INCLUDED. INTAKE FOR BREAKFAST MEAL WAS CLOSER TO 70% INTAKE. REMAINING AT BEDSIDE, WERE HIS SUPPLEMENT (8 OZ. PROTEIN SHAKE), 40Z JUICE AND 4 OZ WATER. PATIENT PRESENTED WITH SHAKE VIA SPOON. HE INGESTED THE ENTIRE 8 OZ IN 5ML AMOUNTS. NO OVERT S/S OF ASPIRATION. MILD/MOD OROPHARYNGEAL DYSPHAGIA CHARACTERIZED BY DELAYS IN ORAL PREPARATION, ORAL TRANSIT AND IN INITIATION OF PHARYNGEAL PHASE OF SWALLOW. CLEAR VOCAL QUALITY THROUGHOUT THESE TRIALS, STASIS REMAINING ON LINGUAL SURFACE WHICH CLEARED WITH LIQUID WASH X2 VIA 5ML SPOONFUL AMOUNTS OF NECTAR THICK WATER. CLEAR UPPER AIRWAY SOUNDS PRE/POST SWALLOW. NO CHANGES IN RESPIRATION RATE DURING P.O. BUT WHEN HIS SON CALLED AT THE END OF P.O. TRIALS, PATIENT BEGAN WHEEZING. AFTER THE CALL, HIS RESPIRATION RATE RETURNED TO BASELINE WITHIN 5 MINUTES. D/W DONELL GONZALES AND DHIRAJ CALHOUN THE PRIORITY OF OFFERING SUPPLEMENT FOR MAX CALORIC INTAKE. THEY VERBALIZED UNDERSTANDING. RECOMMENDATIONS: 1. CONTINUE CURRENT DIET TEXTURE WITH FULL ASSIST 2. PATIENT TOTALLY DEPENDENT ON STAFF FOR ORAL CARE POST MEALS TO REDUCE ORAL PATHOGENS 3. ST TO CONTINUE TO FOLLOW FOR DIET TOLERANCE, ANALYZE/ADJUST DIET TEXTURE.
[2020-03-19 10:52] LABS: APPEARANCE,URINE SLIGHTLY CLOUDY; BILIRUBIN, URINE NEGATIVE (NEGATIVE); COLOR,URINE RED; GLUCOSE, URINE (UA) NEGATIVE (NEGATIVE); KETONES,URINE NEGATIVE (NEGATIVE); LEUKOCYTE ESTERASE ,URINE 2+ (NEGATIVE); NITRITE,URINE NEGATIVE (NEGATIVE); PH,URINE 5 (4.5-8.0); PROTEIN,URINE 1+ (NEGATIVE); UROBILINOGEN,URINE NORMAL MG/DL (0.0-1.0)
--- NOTE | 2020-03-19 12:08 | Pulmonology Progress Note ---
Subjective ROS Limited/Unobtainable: No Interval Events: late note for 03/18 Constitutional: Reports: no symptoms HEENT: Repors: no symptoms Allergies: Coded Allergies: No Known Allergies (Unverified , 04/09/16) Objective Last 24 Hour Vital Signs Date Time Temp Pulse Resp B/P (MAP) Pulse Ox O2 Delivery O2 Flow Rate FiO2 03/19/20 12:00 97.2 60 20 101/47 (65) 97 03/19/20 09:00 68 119/87 03/19/20 09:00 Room Air 03/19/20 08:00 97.7 68 20 119/87 (98) 96 03/19/20 04:00 97.2 72 18 133/65 (87) 99 03/19/20 00:00 98.1 75 18 108/52 (70) 97 03/18/20 20:00 98.2 74 18 134/52 (79) 97 03/18/20 17:07 63 109/59 03/18/20 16:00 98.2 63 18 109/59 (76) 98 Intake and Output 03/18/20 03/19/20 19:00 07:00 Intake Total 5160 ml 92191.5 ml Output Total 2400 ml 8300 ml Balance 2760 ml 2867.5 ml Intake Oral 360 ml 480 ml IV Total 800 ml 1687.5 ml Other 4000 ml 9000 ml Output Urine Total 500 ml Other 1900 ml 8300 ml # Bowel Movements 3 General Appearance: cachetic HEENT: normocephalic, atraumatic Respiratory: chest wall non-tender, lungs clear, normal breath sounds, no respiratory distress Cardiovascular: normal peripheral pulses, normal rate, regular rhythm Abdomen: normal bowel sounds, soft, non tender, no organomegaly Genitourinary: normal external genitalia Extremities: no clubbing Skin: no rash Neurologic: manager federal II-XII grossly normal Microbiology Date/Time Source Procedure Growth Status 03/17/20 19:00 Blood Blood Culture - Preliminary NO GROWTH AFTER 24 HOURS Resulted 03/17/20 18:45 Blood Blood Culture - Preliminary NO GROWTH AFTER 24 HOURS Resulted Laboratory Tests 03/19/20 07:25: White Blood Count 28.1*H, Red Blood Count 3.56L, Hemoglobin 9.0L, Hematocrit 28.8L, Mean Corpuscular Volume 81, Mean Corpuscular Hemoglobin 25.3L, Mean Corpuscular Hemoglobin Concent 31.2L, Red Cell Distribution Width 16.6H, Platelet Count 271, Mean Platelet Volume 6.5, Neutrophils (%) (Auto) , Lymphocytes (%) (Auto) , Monocytes (%) (Auto) , Eosinophils (%) (Auto) , Basophils (%) (Auto) , Differential Total Cells Counted 100, Neutrophils % ( Manual) 93H, Lymphocytes % (Manual) 5L, Monocytes % (Manual) 1, Eosinophils % ( Manual) 1, Basophils % (Manual) 0, Band Neutrophils 0, Platelet Estimate Adequate, Platelet Morphology Normal, Hypochromasia 1+, Anisocytosis 1+, Sodium Level 138, Potassium Level 4.0, Chloride Level 107, Carbon Dioxide Level 24, Anion Gap 7, Blood Urea Nitrogen 7, Creatinine 1.0, Estimat Glomerular Filtration Rate > 60, Glucose Level 105, Calcium Level 8.7 03/19/20 09:15: Urine Color Red, Urine Appearance Slightly cloudy, Urine pH 5, Urine Specific [place] 1.005, Urine Protein 1+H, Urine Glucose (UA) Negative, Urine Ketones Negative, Urine Blood 5+H, Urine Nitrite Negative, Urine Bilirubin Negative, Urine Urobilinogen Normal, Urine Leukocyte Esterase 2+H, Urine RBC TntcH, Urine WBC 5-10H, Urine Squamous Epithelial Cells Occasional, Urine Bacteria Occasional Current Medications Medications (Trade) Dose Ordered Sig/Levi Route PRN Reason Start Time Stop Time Status Last Admin Dose Admin Acetaminophen (Tylenol) 650 mg Q4H PRN ORAL fever (T>100.5F) 03/18/20 16:45 04/09/20 04:44 Albuterol/ Ipratropium (Albuterol/ Ipratropium) 3 ml Q4HRT PRN HHN Shortness of Breath 03/18/20 19:00 03/23/20 09:59 Atorvastatin Calcium (Lipitor) 20 mg BEDTIME ORAL 03/18/20 21:00 06/09/20 20:59 03/18/20 21:22 Dextrose (Dextrose 50%) 25 ml Q30M PRN IV Hypoglycemia 03/18/20 16:30 06/11/20 04:59 Dextrose (Dextrose 50%) 50 ml Q30M PRN IV Hypoglycemia 03/18/20 16:30 06/08/20 14:29 Finasteride (Proscar) 5 mg DAILY ORAL 03/19/20 09:00 06/09/20 08:59 03/19/20 09:03 Insulin Aspart (NovoLOG) No Dose BEFORE MEALS AND HS SUBQ 03/18/20 16:30 06/15/20 06:29 Lidocaine HCl (Xylocaine Jelly 2%) 1 applic DAILYPRN PRN TOPIC for pain in penile region 03/18/20 16:30 06/16/20 16:29 Metoprolol Tartrate (Lopressor) 12.5 mg BID ORAL 03/18/20 18:00 06/08/20 21:59 Nateglinide (Starlix) 120 mg DAILY ORAL 03/19/20 09:00 04/10/20 08:59 03/19/20 09:03 Nitroglycerin (Ntg) 0.4 mg Q5M PRN SL Prn Chest Pain 03/18/20 16:30 04/09/20 14:29 Ondansetron HCl (Zofran) 4 mg Q6H PRN IVP Nausea & Vomiting 03/18/20 16:45 04/09/20 04:44 Piperacillin Sod/ Tazobactam Sod 3.375 gm/Sodium Chloride 110 ml @ 27.5 mls/hr EVERY 8 HOURS IVPB 03/18/20 22:00 03/23/20 21:59 03/19/20 05:11 Polyethylene Glycol (Miralax) 17 gm DAILYPRN PRN ORAL Constipation 03/18/20 16:31 04/17/20 16:30 Sodium Chloride 1,000 ml @ 100 mls/hr Q10H IVLG 03/18/20 16:30 04/09/20 16:14 03/19/20 04:42 Tamsulosin HCl (Flomax) 0.4 mg BEDTIME ORAL 03/18/20 21:00 04/09/20 20:59 03/18/20 21:21 Vancomycin HCl ([facility] pharmacy to dose) 1 ea DAILY PRN MISC Per rx protocol 03/18/20 21:30 04/17/20 21:29 Vancomycin/Sodium Chloride 275 ml @ 137.5 mls/ hr Q24H IVPB 03/20/20 02:00 03/25/20 01:59 Assessment/Plan Problems: (1) Sepsis (2) Urethral fistula (3) UTI (urinary tract infection) (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 Presumably this represents bladder neoplasm. Air is also noted within the bladder and the possibility of bladder infection or internal fistula to the bladder should be considered. anemia w/u miller culture sliding scale symptomatic treatment Og Hinkle MD Mar 19, 2020 12:08
--- NOTE | 2020-03-19 12:10 | Pulmonology Progress Note ---
Subjective ROS Limited/Unobtainable: No Interval Events: c/o dry sking Constitutional: Reports: no symptoms HEENT: Repors: no symptoms Allergies: Coded Allergies: No Known Allergies (Unverified , 04/09/16) Objective Last 24 Hour Vital Signs Date Time Temp Pulse Resp B/P (MAP) Pulse Ox O2 Delivery O2 Flow Rate FiO2 03/19/20 12:00 97.2 60 20 101/47 (65) 97 03/19/20 09:00 68 119/87 03/19/20 09:00 Room Air 03/19/20 08:00 97.7 68 20 119/87 (98) 96 03/19/20 04:00 97.2 72 18 133/65 (87) 99 03/19/20 00:00 98.1 75 18 108/52 (70) 97 03/18/20 20:00 98.2 74 18 134/52 (79) 97 03/18/20 17:07 63 109/59 03/18/20 16:00 98.2 63 18 109/59 (76) 98 Intake and Output 03/18/20 03/19/20 19:00 07:00 Intake Total 5160 ml 61743.5 ml Output Total 2400 ml 8300 ml Balance 2760 ml 2867.5 ml Intake Oral 360 ml 480 ml IV Total 800 ml 1687.5 ml Other 4000 ml 9000 ml Output Urine Total 500 ml Other 1900 ml 8300 ml # Bowel Movements 3 General Appearance: cachetic HEENT: normocephalic, atraumatic Respiratory: chest wall non-tender, lungs clear, normal breath sounds, no respiratory distress Cardiovascular: normal peripheral pulses, normal rate, regular rhythm Abdomen: normal bowel sounds, soft, non tender, no organomegaly Genitourinary: normal external genitalia Extremities: no clubbing Skin: no rash 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 Microbiology Date/Time Source Procedure Growth Status 03/17/20 19:00 Blood Blood Culture - Preliminary NO GROWTH AFTER 24 HOURS Resulted 03/17/20 18:45 Blood Blood Culture - Preliminary NO GROWTH AFTER 24 HOURS Resulted Laboratory Tests 03/19/20 07:25: White Blood Count 28.1*H, Red Blood Count 3.56L, Hemoglobin 9.0L, Hematocrit 28.8L, Mean Corpuscular Volume 81, Mean Corpuscular Hemoglobin 25.3L, Mean Corpuscular Hemoglobin Concent 31.2L, Red Cell Distribution Width 16.6H, Platelet Count 271, Mean Platelet Volume 6.5, Neutrophils (%) (Auto) , Lymphocytes (%) (Auto) , Monocytes (%) (Auto) , Eosinophils (%) (Auto) , Basophils (%) (Auto) , Differential Total Cells Counted 100, Neutrophils % ( Manual) 93H, Lymphocytes % (Manual) 5L, Monocytes % (Manual) 1, Eosinophils % ( Manual) 1, Basophils % (Manual) 0, Band Neutrophils 0, Platelet Estimate Adequate, Platelet Morphology Normal, Hypochromasia 1+, Anisocytosis 1+, Sodium Level 138, Potassium Level 4.0, Chloride Level 107, Carbon Dioxide Level 24, Anion Gap 7, Blood Urea Nitrogen 7, Creatinine 1.0, Estimat Glomerular Filtration Rate > 60, Glucose Level 105, Calcium Level 8.7 03/19/20 09:15: Urine Color Red, Urine Appearance Slightly cloudy, Urine pH 5, Urine Specific [place] 1.005, Urine Protein 1+H, Urine Glucose (UA) Negative, Urine Ketones Negative, Urine Blood 5+H, Urine Nitrite Negative, Urine Bilirubin Negative, Urine Urobilinogen Normal, Urine Leukocyte Esterase 2+H, Urine RBC TntcH, Urine WBC 5-10H, Urine Squamous Epithelial Cells Occasional, Urine Bacteria Occasional Current Medications Medications (Trade) Dose Ordered Sig/Levi Route PRN Reason Start Time Stop Time Status Last Admin Dose Admin Acetaminophen (Tylenol) 650 mg Q4H PRN ORAL fever (T>100.5F) 03/18/20 16:45 04/09/20 04:44 Albuterol/ Ipratropium (Albuterol/ Ipratropium) 3 ml Q4HRT PRN HHN Shortness of Breath 03/18/20 19:00 03/23/20 09:59 Atorvastatin Calcium (Lipitor) 20 mg BEDTIME ORAL 03/18/20 21:00 06/09/20 20:59 03/18/20 21:22 Dextrose (Dextrose 50%) 25 ml Q30M PRN IV Hypoglycemia 03/18/20 16:30 06/11/20 04:59 Dextrose (Dextrose 50%) 50 ml Q30M PRN IV Hypoglycemia 03/18/20 16:30 06/08/20 14:29 Finasteride (Proscar) 5 mg DAILY ORAL 03/19/20 09:00 06/09/20 08:59 03/19/20 09:03 Insulin Aspart (NovoLOG) No Dose BEFORE MEALS AND HS SUBQ 03/18/20 16:30 06/15/20 06:29 Lidocaine HCl (Xylocaine Jelly 2%) 1 applic DAILYPRN PRN TOPIC for pain in penile region 03/18/20 16:30 06/16/20 16:29 Metoprolol Tartrate (Lopressor) 12.5 mg BID ORAL 03/18/20 18:00 06/08/20 21:59 Nateglinide (Starlix) 120 mg DAILY ORAL 03/19/20 09:00 04/10/20 08:59 03/19/20 09:03 Nitroglycerin (Ntg) 0.4 mg Q5M PRN SL Prn Chest Pain 03/18/20 16:30 04/09/20 14:29 Ondansetron HCl (Zofran) 4 mg Q6H PRN IVP Nausea & Vomiting 03/18/20 16:45 04/09/20 04:44 Piperacillin Sod/ Tazobactam Sod 3.375 gm/Sodium Chloride 110 ml @ 27.5 mls/hr EVERY 8 HOURS IVPB 03/18/20 22:00 03/23/20 21:59 03/19/20 05:11 Polyethylene Glycol (Miralax) 17 gm DAILYPRN PRN ORAL Constipation 03/18/20 16:31 04/17/20 16:30 Sodium Chloride 1,000 ml @ 100 mls/hr Q10H IVLG 03/18/20 16:30 04/09/20 16:14 03/19/20 04:42 Tamsulosin HCl (Flomax) 0.4 mg BEDTIME ORAL 03/18/20 21:00 04/09/20 20:59 03/18/20 21:21 Vancomycin HCl (Vanco pharmacy to dose) 1 ea DAILY PRN MISC Per rx protocol 03/18/20 21:30 04/17/20 21:29 Vancomycin/Sodium Chloride 275 ml @ 137.5 mls/ hr Q24H IVPB 03/20/20 02:00 03/25/20 01:59 Assessment/Plan Problems: (1) Sepsis (2) Urethral fistula (3) UTI (urinary tract infection) (4) MDRO (multiple drug resistant organisms) resistance (5) NSTEMI (non-ST elevated myocardial infarction) (6) Bladder cancer (7) Hematuria (8) Anemia (9) Diabetes mellitus (10) HTN (hypertension) (11) Alzheimer's dementia (12) Chronic cerebrovascular accident (CVA) Assessment/Plan wbc still high, higher today much less hematuria, urine is clearer continue teli monitoring anemia w/u miller culture, MDR ecoli in urine sliding scale symptomatic treatment Og Hinkle MD Mar 19, 2020 12:10
--- NOTE | 2020-03-19 12:20 | NUR ---
NURSE NOTES: RN reposition patient at high-al[place] to prepare and feed for lunch, but patient suddenly started having an episode of mild wheezing. RN repositioned patient and took VS, VS stable, O2 sat at 95%. RN called and notified RT and requested for a breathing treatment
[2020-03-19] MEDS: Albuterol/Ipratropium 3ml neb HHN PRN (12:34)
--- NOTE | 2020-03-19 12:55 | NUR ---
RD ASSESSMENT & RECOMMENDATIONS SEE CARE ACTIVITY FOR COMPLETE ASSESSMENT DAILY ESTIMATED NEEDS: Needs based on DM, ca 70.2g 25-35 kcals/kg 5940-0676 total kcals 1-2 g protein/kg 70-140 g total protein 20-30ml/kcal mL/kg 5252-2373 total fluid mLs NUTRITION DIAGNOSIS: * Swallowing difficulty R/T dysphagia as evidenced by h/o CVA, s/p [employer] eval, on [facility] soft chopped diet w/ NTL , variable po intake. CURRENT DIET:CCHO MED, ms chopped w/ NTL PO DIET RECOMMENDATIONS: CCHO MED / texture per [employer] ADDITIONAL RECOMMENDATIONS: 1) Calibrated bedscale wt for accurate CBW EMR wt: 190# vs Bed wt: 154# vs Current wt: 174# 2) Check lytes daily, replete as needed 3) Glucerna 1 tetra robinson TID + Snacks as tolerated 4) G[employer] evaluation for appropriate texture and max po intake On chopped diet w/ NTL 5) Snacks in b/w meals as able, as tolerated
--- NOTE | 2020-03-19 17:21 | NUR ---
CASE MANAGEMENT:REVIEW SI;N-STEMI. E.COLI UTI. LEUKOCYTOSIS. 98.1 72 20 101/47 96% ON RA WBC 28.1 H/H 9.0/28.8 IS;VANCOMYCIN IV STARLIX PO ZOSYN IV A8 FLOMAX PO DUO NEB HHN IVF NS @ 100 ML/HR INSULIN NOVOLOG MED SURG STATUS DCP;[facility]
--- NOTE | 2020-03-19 18:14 | NUR ---
NURSE NOTES: [place] [address] ML [place] output of 26665IJ. True urine output 2750. Urine is still light colored red with minimal clots
--- NOTE | 2020-03-19 18:44 | Internal Med Progress Note ---
Subjective Date of Service: Mar 19, 2020 Physician Name Jean-Claude Peter Attending Physician Jaziel Lowe MD Current Medications Medications (Trade) Dose Ordered Sig/Levi Route PRN Reason Start Time Stop Time Status Last Admin Dose Admin Acetaminophen (Tylenol) 650 mg Q4H PRN ORAL fever (T>100.5F) 03/18/20 16:45 04/09/20 04:44 Albuterol/ Ipratropium (Albuterol/ Ipratropium) 3 ml Q4HRT PRN HHN Shortness of Breath 03/18/20 19:00 03/23/20 09:59 03/19/20 12:34 Atorvastatin Calcium (Lipitor) 20 mg BEDTIME ORAL 03/18/20 21:00 06/09/20 20:59 03/18/20 21:22 Dextrose (Dextrose 50%) 25 ml Q30M PRN IV Hypoglycemia 03/18/20 16:30 06/11/20 04:59 Dextrose (Dextrose 50%) 50 ml Q30M PRN IV Hypoglycemia 03/18/20 16:30 06/08/20 14:29 Finasteride (Proscar) 5 mg DAILY ORAL 03/19/20 09:00 06/09/20 08:59 03/19/20 09:03 Insulin Aspart (NovoLOG) No Dose BEFORE MEALS AND HS SUBQ 03/18/20 16:30 06/15/20 06:29 03/19/20 16:39 Lidocaine HCl (Xylocaine Jelly 2%) 1 applic DAILYPRN PRN TOPIC for pain in penile region 03/18/20 16:30 06/16/20 16:29 Metoprolol Tartrate (Lopressor) 12.5 mg BID ORAL 03/18/20 18:00 06/08/20 21:59 Nateglinide (Starlix) 120 mg DAILY ORAL 03/19/20 09:00 04/10/20 08:59 03/19/20 09:03 Nitroglycerin (Ntg) 0.4 mg Q5M PRN SL Prn Chest Pain 03/18/20 16:30 04/09/20 14:29 Ondansetron HCl (Zofran) 4 mg Q6H PRN IVP Nausea & Vomiting 03/18/20 16:45 04/09/20 04:44 Piperacillin Sod/ Tazobactam Sod 3.375 gm/Sodium Chloride 110 ml @ 27.5 mls/hr EVERY 8 HOURS IVPB 03/18/20 22:00 03/23/20 21:59 03/19/20 13:07 Polyethylene Glycol (Miralax) 17 gm DAILYPRN PRN ORAL Constipation 03/18/20 16:31 04/17/20 16:30 Sodium Chloride 1,000 ml @ 100 mls/hr Q10H IVLG 03/18/20 16:30 04/09/20 16:14 03/19/20 13:08 Tamsulosin HCl (Flomax) 0.4 mg BEDTIME ORAL 03/18/20 21:00 04/09/20 20:59 03/18/20 21:21 Vancomycin HCl (Vanco pharmacy to dose) 1 ea DAILY PRN MISC Per rx protocol 03/18/20 21:30 04/17/20 21:29 Vancomycin/Sodium Chloride 275 ml @ 137.5 mls/ hr Q24H IVPB 03/20/20 02:00 03/25/20 01:59 Allergies: Coded Allergies: No Known Allergies (Unverified , 04/09/16) ROS Limited/Unobtainable: No Constitutional: Reports: no symptoms HEENT: Reports: no symptoms Cardiovascular: Reports: no symptoms Respiratory: Reports: no symptoms Gastrointestinal/Abdominal: Reports: no symptoms Genitourinary: Reports: no symptoms 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: Reports: no symptoms Subjective 84 YO M with a history of bladder cancer admitted with chest pain. Cover for Int Uriel-DR Lowe. Objective Last Vital Signs Date Time Temp Pulse Resp B/P (MAP) Pulse Ox O2 Delivery O2 Flow Rate FiO2 03/19/20 17:54 65 112/53 03/19/20 16:00 98.1 20 97 03/19/20 12:34 Room Air 35 03/18/20 10:24 2.0 Laboratory Tests Test 03/19/20 07:25 03/19/20 09:15 White Blood Count 28.1 K/UL (4.8-10.8) *H Red Blood Count 3.56 M/UL (4.70-6.10) L Hemoglobin 9.0 G/DL (14.2-18.0) L Hematocrit 28.8 % (42.0-52.0) L Mean Corpuscular Volume 81 FL (80-99) Mean Corpuscular Hemoglobin 25.3 PG (27.0-31.0) L Mean Corpuscular Hemoglobin Concent 31.2 G/DL (32.0-36.0) L Red Cell Distribution Width 16.6 % (11.6-14.8) H Platelet Count 271 K/UL (150-450) Mean Platelet Volume 6.5 FL (6.5-10.1) Neutrophils (%) (Auto) % (45.0-75.0) Lymphocytes (%) (Auto) % (20.0-45.0) Monocytes (%) (Auto) % (1.0-10.0) Eosinophils (%) (Auto) % (0.0-3.0) Basophils (%) (Auto) % (0.0-2.0) Differential Total Cells Counted 100 Neutrophils % (Manual) 93 % (45-75) H Lymphocytes % (Manual) 5 % (20-45) L Monocytes % (Manual) 1 % (1-10) Eosinophils % (Manual) 1 % (0-3) Basophils % (Manual) 0 % (0-2) Band Neutrophils 0 % (0-8) Platelet Estimate Adequate Platelet Morphology Normal Hypochromasia 1+ Anisocytosis 1+ Sodium Level 138 MMOL/L (136-145) Potassium Level 4.0 MMOL/L (3.5-5.1) Chloride Level 107 MMOL/L (98-107) Carbon Dioxide Level 24 MMOL/L (21-32) Anion Gap 7 mmol/L (5-15) Blood Urea Nitrogen 7 mg/dL (7-18) Creatinine 1.0 MG/DL (0.55-1.30) Estimat Glomerular Filtration Rate > 60 mL/min (>60) Glucose Level 105 MG/DL (74-106) Calcium Level 8.7 MG/DL (8.5-10.1) Urine Color Red Urine Appearance Slightly cloudy Urine pH 5 (4.5-8.0) Urine Specific [place] 1.005 (1.005-1.035) Urine Protein 1+ (NEGATIVE) H Urine Glucose (UA) Negative (NEGATIVE) Urine Ketones Negative (NEGATIVE) Urine Blood 5+ (NEGATIVE) H Urine Nitrite Negative (NEGATIVE) Urine Bilirubin Negative (NEGATIVE) Urine Urobilinogen Normal MG/DL (0.0-1.0) Urine Leukocyte Esterase 2+ (NEGATIVE) H Urine RBC Tntc /HPF (0 - 0) H Urine WBC 5-10 /HPF (0 - 0) H Urine Squamous Epithelial Cells Occasional /LPF Urine Bacteria Occasional /HPF (NONE) Microbiology Date/Time Source Procedure Growth Status 03/17/20 19:00 Blood Blood Culture - Preliminary NO GROWTH AFTER 24 HOURS Resulted 03/17/20 18:45 Blood Blood Culture - Preliminary NO GROWTH AFTER 24 HOURS Resulted Intake and Output 03/18/20 03/19/20 19:00 07:00 Intake Total 5160 ml 31750.5 ml Output Total 2400 ml 8300 ml Balance 2760 ml 2867.5 ml Intake Oral 360 ml 480 ml IV Total 800 ml 1687.5 ml Other 4000 ml 9000 ml Output Urine Total 500 ml Other 1900 ml 8300 ml # Bowel Movements 3 Objective PHYSICAL EXAMINATION: GENERAL: The patient is a well-developed and well-nourished male, in no apparent distress. HEENT: Eyes, pupils are equal and responsive to light and accommodation. Extraocular movements are intact. NECK: Supple without lymphadenopathy. CHEST: Lungs are clear to auscultation bilaterally without wheezes or rales. CARDIOVASCULAR: Regular rhythm and rate. S1, S2 are normal without murmurs, rubs, or gallops. ABDOMEN: Soft, nontender, and nondistended. Positive bowel sounds. No evidence of hepatosplenomegaly. Currently, no rebound or guarding noted. EXTREMITIES: Negative for clubbing, cyanosis, or edema. RECTAL/GENITAL: Not performed. NEUROLOGIC: Cranial nerves II through XII are grossly intact without focal deficits. Motor strength is 5/5 bilaterally. Deep tendon reflexes are 2+ plantar. Assessment/Plan Assessment/Plan ASSESSMENT: This is an 84-year-old male. 1. Chest pain. 2. Elevated troponin level. 3. Bladder cancer. 4. Gastritis. 5. Hypertension. 6. Diabetes type 2. 7. Atrioventricular conduction defect. 8. Alzheimer's dementia. 9. Cerebrovascular disease. 10. Right hemiplegia. 11. Pacemaker in situ. 12. Urinary tract infection=ESBL E. Coli 13. Persistant leukocytosis due to UTI 14. Hematuria TREATMENT: 1. Chest pain/elevated troponin. A Cardiology consultation has been obtained with Dr. Nj Valenzuela. We will follow recommendations of Cardiology. 2. Bladder cancer. CT=bladder mass increased in size from prior. Urology= Dr. Macho Allen. The patient is status post transurethral resection of bladder tumor x2. We will follow recommendations of Urology. 3. Gastritis. Continue Protonix as above. 4. Hypertension. 5. Diabetes type 2. A NovoLog sliding scale has been instituted. 6. Atrioventricular conduction defect. The patient is status post pacemaker implantation. 7. Alzheimer's dementia. 8. Cerebrovascular disease, status post cerebrovascular accident. 9. Right hemiplegia. 10. ABX=S/P meropenem; continue zosyn and vanco per ID=Dr Darby 11. Bladder irrigation per urology Jean-Claude Peter MD Mar 19, 2020 18:44
--- NOTE | 2020-03-19 19:23 | NUR ---
HAND-OFF: Report given to DONELL Grove. Endorsed that patient is on CBI draining light red urine
--- NOTE | 2020-03-19 19:29 | NUR ---
NURSE NOTES: Received patient awake, verbal, follows simple command, resting in bed comfortably, on continuous bladder irrigation.
[2020-03-19] MEDS: Atorvastatin 20mg tab ORAL SCH (20:57)
[2020-03-19] MEDS: Tamsulosin 0.4mg cap ORAL SCH (20:57)
[2020-03-20] MEDS: Vancomycin 1.5gm/NS Premix IVPB SCH (01:57)
[2020-03-20 04:00] VITALS: BP 120/61
[2020-03-20] MEDS: Piperacillin/Tazobactam 3.375 GM in NS 110 ML IVPB SCH ×3 (05:02→21:15)
[2020-03-20] MEDS: NovoLOG Insulin Flexpen SUBQ SCH ×4 (05:37→20:46)
--- NOTE | 2020-03-20 07:08 | NUR ---
HAND-OFF: Report given to Dina Ramsey.
--- NOTE | 2020-03-20 07:30 | NUR ---
NURSE NOTES: RECEIVED PATIENT A/A/OX2 IN BED CALM AND COMFORTABLE. ON CBI APPEARED LIKE PINK [place] COLOR WITH NO CLOTS PRESENTS @ THIS TIME. PIV PATENT AND INTACT. IVF INFUSING WELL. CLEAR LUNG SOUNDS WITH UNLABORED BREATHING NOTED. KEPT HOB ELEVATED FOR ADEQUATE VENTILATION. SKIN IS INTACT. KEPT BED IN THE LOWEST POSITION. SIDERAILS ARE UPX3. CALL LIGHT IS WITHIN REACH. BED BRAKES AND LOCK ENGAGED @ ALL TIMES. WILL CONT TO MONITOR.
[2020-03-20 08:00] VITALS: BP 122/65
--- NOTE | 2020-03-20 08:31 | Infectious Diseases Prog Note ---
Assessment/Plan 84yo M with bladder cancer who p/w chest pain, found to have elevated troponin and leukocytosis. Afebrile Sepsis Leukocytosis, overall improved but remains elevated - no abscess on CT L hydronephrosis, stent in place 03/14 CT abd/p: Mass within the bladder increased in size since previous examination. Presumably this represents bladder neoplasm. Air is also noted within the bladder and the possibility of bladder infection or internal fistula to the bladder should be considered. Left hydronephrosis and with air in the left renal collecting system. There is a left ureteral stent. The air likely is coming from the bladder but the possibility of infection again is not excluded. Atherosclerotic change. Degenerative change in the spine.Cholelithiasis. Bilateral pleural effusions, right greater than left.Subcutaneous edema consistent with mild anasarca. 03/17 BCx NTD 03/18 UCx NTD UTI/pyelonephritis, UA with tnct WBC, UCx >100k ESBL E.coli on 03/10 Rapid COVID neg x1 03/13 CXR: Some crowding of markings remain inthe lung bases likely related to a limited inspiration and low lung volumes. No new alveolar process. R/o bacteremia 03/11 BCx NTD 03/10 BCx NTD NSTEMI w/ elevated troponin, can also be a cause of reactive leukocytosis Bladder cancer Hematuria On CBI per Urology Plan: Cont Zosyn #2 & vanco #2 empiric broadening given ongoing leukocytosis Renal US to assess for interval change in L hydronephrosis F/u UCx 03/19 Trend WBC daily 03/18 SP latoya #7 for ESBL UTI/pyelo 03/12 SP vanco #2, cefepime #2 No diarrhea, but if occurs check C.dif Trend resp status Trend leukocytosis daily Monitor CBC, CMP D/w RN Thank you for this consult. [facility] will continue to follow. Subjective Allergies: Coded Allergies: No Known Allergies (Unverified , 04/09/16) AF WBC 24 from 28 NAD Reports feeling OK, R heel pain but no other complaints Objective Last 24 Hour Vital Signs Date Time Temp Pulse Resp B/P (MAP) Pulse Ox O2 Delivery O2 Flow Rate FiO2 03/20/20 04:00 98.5 69 18 120/61 (80) 98 03/19/20 23:55 98.4 65 18 114/57 (76) 98 03/19/20 21:22 Room Air 03/19/20 19:54 98.2 69 18 101/50 (67) 97 03/19/20 19:25 97 Room Air 21 03/19/20 17:54 65 112/53 03/19/20 16:00 98.1 72 20 107/45 (65) 97 03/19/20 12:34 75 18 99 Room Air 35 87 16 96 03/19/20 12:00 97.2 60 20 101/47 (65) 97 03/19/20 09:00 68 119/87 03/19/20 09:00 Room Air Height (Feet): 5 Height (Inches): 9.00 Weight (Pounds): 179 Gen: Older man, laying in bed, NAD CV: RRR Pulm: CTAB anteriorly Abd; Soft, NTND Microbiology Date/Time Source Procedure Growth Status 03/17/20 19:00 Blood Blood Culture - Preliminary NO GROWTH AFTER 48 HOURS Resulted 03/17/20 18:45 Blood Blood Culture - Preliminary NO GROWTH AFTER 48 HOURS Resulted 03/18/20 09:15 Indwelling Cath Urine Culture - Preliminary NO GROWTH Resulted Laboratory Tests Test 03/19/20 09:15 03/19/20 11:33 Urine Color Red Urine Appearance Slightly cloudy Urine pH 5 (4.5-8.0) Urine Specific [place] 1.005 (1.005-1.035) Urine Protein 1+ (NEGATIVE) H Urine Glucose (UA) Negative (NEGATIVE) Urine Ketones Negative (NEGATIVE) Urine Blood 5+ (NEGATIVE) H Urine Nitrite Negative (NEGATIVE) Urine Bilirubin Negative (NEGATIVE) Urine Urobilinogen Normal MG/DL (0.0-1.0) Urine Leukocyte Esterase 2+ (NEGATIVE) H Urine RBC Tntc /HPF (0 - 0) H Urine WBC 5-10 /HPF (0 - 0) H Urine Squamous Epithelial Cells Occasional /LPF Urine Bacteria Occasional /HPF (NONE) POC Whole Blood Glucose 128 MG/DL (74-106) H Current Medications Medications (Trade) Dose Ordered Sig/Levi Route PRN Reason Start Time Stop Time Status Last Admin Dose Admin Acetaminophen (Tylenol) 650 mg Q4H PRN ORAL fever (T>100.5F) 03/18/20 16:45 04/09/20 04:44 Albuterol/ Ipratropium (Albuterol/ Ipratropium) 3 ml Q4HRT PRN HHN Shortness of Breath 03/18/20 19:00 03/23/20 09:59 03/19/20 12:34 Atorvastatin Calcium (Lipitor) 20 mg BEDTIME ORAL 03/18/20 21:00 06/09/20 20:59 03/19/20 20:57 Dextrose (Dextrose 50%) 25 ml Q30M PRN IV Hypoglycemia 03/18/20 16:30 06/11/20 04:59 Dextrose (Dextrose 50%) 50 ml Q30M PRN IV Hypoglycemia 03/18/20 16:30 06/08/20 14:29 Finasteride (Proscar) 5 mg DAILY ORAL 03/19/20 09:00 06/09/20 08:59 03/19/20 09:03 Insulin Aspart (NovoLOG) No Dose BEFORE MEALS AND HS SUBQ 03/18/20 16:30 06/15/20 06:29 03/19/20 16:39 Lidocaine HCl (Xylocaine Jelly 2%) 1 applic DAILYPRN PRN TOPIC for pain in penile region 03/18/20 16:30 06/16/20 16:29 Metoprolol Tartrate (Lopressor) 12.5 mg BID ORAL 03/18/20 18:00 06/08/20 21:59 Nateglinide (Starlix) 120 mg DAILY ORAL 03/19/20 09:00 04/10/20 08:59 03/19/20 09:03 Nitroglycerin (Ntg) 0.4 mg Q5M PRN SL Prn Chest Pain 03/18/20 16:30 04/09/20 14:29 Ondansetron HCl (Zofran) 4 mg Q6H PRN IVP Nausea & Vomiting 03/18/20 16:45 04/09/20 04:44 Piperacillin Sod/ Tazobactam Sod 3.375 gm/Sodium Chloride 110 ml @ 27.5 mls/hr EVERY 8 HOURS IVPB 03/18/20 22:00 03/23/20 21:59 03/20/20 05:02 Polyethylene Glycol (Miralax) 17 gm DAILYPRN PRN ORAL Constipation 03/18/20 16:31 04/17/20 16:30 Sodium Chloride 1,000 ml @ 100 mls/hr Q10H IVLG 03/18/20 16:30 04/09/20 16:14 03/19/20 13:08 Tamsulosin HCl (Flomax) 0.4 mg BEDTIME ORAL 03/18/20 21:00 04/09/20 20:59 03/18/20 21:21 Vancomycin HCl (Vanco pharmacy to dose) 1 ea DAILY PRN MISC Per rx protocol 03/18/20 21:30 04/17/20 21:29 Vancomycin/Sodium Chloride 275 ml @ 137.5 mls/ hr Q24H IVPB 03/20/20 02:00 03/25/20 01:59 03/20/20 01:57 Carlie Callaway M.D. Mar 20, 2020 08:31
--- NOTE | 2020-03-20 08:37 | Urology Progress Note ---
Assessment/Plan Assessment/Plan: 1. Gross hematuria. 2. Bladder cancer history with enlarging bladder mass. 3. Left-sided hydro, which is chronic. 4. BPH history. 5. Urinary retention. 6. UTI. 7. Proteinuria. 8. Neurogenic bladder. maintain hernandez, 3-way placed 03/15 CBI, titrate rate to keep clear hernandez hand irrigated and do PRN occasional small clots noted abx as ordered monitor h/h, wbc off ASA since 03/13 flomax and proscar consider cysto if feasible med/onc f/u f/u on last urine and blood cx d/w nursing staff d/w primary service Subjective Allergies: Coded Allergies: No Known Allergies (Unverified , 04/09/16) Subjective all noted, comfortable CBI running Objective Last 24 Hour Vital Signs Date Time Temp Pulse Resp B/P (MAP) Pulse Ox O2 Delivery O2 Flow Rate FiO2 03/20/20 04:00 98.5 69 18 120/61 (80) 98 03/19/20 23:55 98.4 65 18 114/57 (76) 98 03/19/20 21:22 Room Air 03/19/20 19:54 98.2 69 18 101/50 (67) 97 03/19/20 19:25 97 Room Air 21 03/19/20 17:54 65 112/53 03/19/20 16:00 98.1 72 20 107/45 (65) 97 03/19/20 12:34 75 18 99 Room Air 35 87 16 96 03/19/20 12:00 97.2 60 20 101/47 (65) 97 03/19/20 09:00 68 119/87 03/19/20 09:00 Room Air Intake and Output 03/19/20 03/20/20 19:00 07:00 Intake Total 1735.0 ml 960.0 ml Output Total 2750 ml 700 ml Balance -1015.0 ml 260.0 ml Intake Oral 1080 ml 120 ml IV Total 655.0 ml 840.0 ml Output Urine Total 2750 ml 700 ml Microbiology Date/Time Source Procedure Growth Status 03/17/20 19:00 Blood Blood Culture - Preliminary NO GROWTH AFTER 48 HOURS Resulted 03/12/20 06:05 Nasal Nares MRSA Culture - Final NO METHICILLIN RESISTANT STAPH AUREUS... Complete 03/18/20 09:15 Indwelling Cath Urine Culture - Preliminary NO GROWTH Resulted 03/12/20 04:00 Rectum VRE Culture - Final Enterococcus Faecalis - Vre Complete Current Medications Medications (Trade) Dose Ordered Sig/Levi Route PRN Reason Start Time Stop Time Status Last Admin Dose Admin Acetaminophen (Tylenol) 650 mg Q4H PRN ORAL fever (T>100.5F) 03/18/20 16:45 04/09/20 04:44 Albuterol/ Ipratropium (Albuterol/ Ipratropium) 3 ml Q4HRT PRN HHN Shortness of Breath 03/18/20 19:00 03/23/20 09:59 03/19/20 12:34 Atorvastatin Calcium (Lipitor) 20 mg BEDTIME ORAL 03/18/20 21:00 06/09/20 20:59 03/19/20 20:57 Dextrose (Dextrose 50%) 25 ml Q30M PRN IV Hypoglycemia 03/18/20 16:30 06/11/20 04:59 Dextrose (Dextrose 50%) 50 ml Q30M PRN IV Hypoglycemia 03/18/20 16:30 06/08/20 14:29 Finasteride (Proscar) 5 mg DAILY ORAL 03/19/20 09:00 06/09/20 08:59 03/19/20 09:03 Insulin Aspart (NovoLOG) No Dose BEFORE MEALS AND HS SUBQ 03/18/20 16:30 06/15/20 06:29 03/19/20 16:39 Lidocaine HCl (Xylocaine Jelly 2%) 1 applic DAILYPRN PRN TOPIC for pain in penile region 03/18/20 16:30 06/16/20 16:29 Metoprolol Tartrate (Lopressor) 12.5 mg BID ORAL 03/18/20 18:00 06/08/20 21:59 Nateglinide (Starlix) 120 mg DAILY ORAL 03/19/20 09:00 04/10/20 08:59 03/19/20 09:03 Nitroglycerin (Ntg) 0.4 mg Q5M PRN SL Prn Chest Pain 03/18/20 16:30 04/09/20 14:29 Ondansetron HCl (Zofran) 4 mg Q6H PRN IVP Nausea & Vomiting 03/18/20 16:45 04/09/20 04:44 Piperacillin Sod/ Tazobactam Sod 3.375 gm/Sodium Chloride 110 ml @ 27.5 mls/hr EVERY 8 HOURS IVPB 03/18/20 22:00 03/23/20 21:59 03/20/20 05:02 Polyethylene Glycol (Miralax) 17 gm DAILYPRN PRN ORAL Constipation 03/18/20 16:31 04/17/20 16:30 Sodium Chloride 1,000 ml @ 100 mls/hr Q10H IVLG 03/18/20 16:30 04/09/20 16:14 03/19/20 13:08 Tamsulosin HCl (Flomax) 0.4 mg BEDTIME ORAL 03/18/20 21:00 04/09/20 20:59 03/18/20 21:21 Vancomycin HCl (Vanco pharmacy to dose) 1 ea DAILY PRN MISC Per rx protocol 03/18/20 21:30 04/17/20 21:29 Vancomycin/Sodium Chloride 275 ml @ 137.5 mls/ hr Q24H IVPB 03/20/20 02:00 03/25/20 01:59 03/20/20 01:57 Laboratory Tests 03/19/20 09:15: Urine Color Red, Urine Appearance Slightly cloudy, Urine pH 5, Urine Specific [place] 1.005, Urine Protein 1+H, Urine Glucose (UA) Negative, Urine Ketones Negative, Urine Blood 5+H, Urine Nitrite Negative, Urine Bilirubin Negative, Urine Urobilinogen Normal, Urine Leukocyte Esterase 2+H, Urine RBC TntcH, Urine WBC 5-10H, Urine Squamous Epithelial Cells Occasional, Urine Bacteria Occasional 03/19/20 11:33: POC Whole Blood Glucose 128H 03/19/20 16:07: POC Whole Blood Glucose 159H 03/19/20 20:17: POC Whole Blood Glucose 96 03/20/20 05:23: POC Whole Blood Glucose [Pending] Height (Feet): 5 Height (Inches): 9.00 Weight (Pounds): 179 Objective exam stable hernandez indwelling, CBI mild-moderate rate urine blood-tinged Macho Allen MD Mar 20, 2020 08:37
[2020-03-20] MEDS: Metoprolol Tartrate 12.5mg TAB ORAL SCH ×2 (08:38→17:23)
[2020-03-20 09:10] LABS: HEMATOCRIT 25.5 % (42.0-52.0); HEMOGLOBIN 8.1 G/DL (14.2-18.0); MEAN CORPUSCULAR VOLUME 80 FL (80-99); PLATELET COUNT 232 K/UL (150-450); RED CELL DISTRIBUTION WIDTH 16.4 % (11.6-14.8)
[2020-03-20 09:15] LABS: ANION GAP 6 mmol/L (5-15); BLOOD UREA NITROGEN 7 mg/dL (7-18); CALCIUM 8.2 MG/DL (8.5-10.1); CARBON DIOXIDE 26 MMOL/L (21-32); CHLORIDE 107 MMOL/L (98-107); CREATININE 1.1 MG/DL (0.55-1.30); POTASSIUM 3.9 MMOL/L (3.5-5.1); SODIUM 138 MMOL/L (136-145)
--- NOTE | 2020-03-20 09:22 | NUR ---
NURSE NOTES: Received WBC count from Christina of the lab of 24. MD not notified as downtrending. RN notified.
--- NOTE | 2020-03-20 10:36 | NUR ---
NURSE NOTES: notified Dr Mcguire for today's H/H 8.25.5. awaiting for a call back. will cont to monitor. Addendum: 03/20/20 at 1253 by NEO MCDANIEL LVN new order obtained. will cont to monitor.
--- NOTE | 2020-03-20 10:40 | NUR ---
NURSE NOTES: DR JARQUIN MADE AWARE OF THE WBC 24.O TODAY. NO NEW ORDER NOTED. WILL CONT THE PLAN OF CARE.
[2020-03-20 12:00] VITALS: BP 105/55
--- NOTE | 2020-03-20 12:14 | Pulmonology Progress Note ---
Subjective ROS Limited/Unobtainable: No Interval Events: c/o dry sking Constitutional: Reports: no symptoms HEENT: Repors: no symptoms Allergies: Coded Allergies: No Known Allergies (Unverified , 04/09/16) Objective Last 24 Hour Vital Signs Date Time Temp Pulse Resp B/P (MAP) Pulse Ox O2 Delivery O2 Flow Rate FiO2 03/20/20 09:06 Room Air 03/20/20 08:38 70 122/65 03/20/20 08:00 98.3 70 19 122/65 (84) 99 03/20/20 04:00 98.5 69 18 120/61 (80) 98 03/19/20 23:55 98.4 65 18 114/57 (76) 98 03/19/20 21:22 Room Air 03/19/20 19:54 98.2 69 18 101/50 (67) 97 03/19/20 19:25 97 Room Air 21 03/19/20 17:54 65 112/53 03/19/20 16:00 98.1 72 20 107/45 (65) 97 03/19/20 12:34 75 18 99 Room Air 35 87 16 96 Intake and Output 03/19/20 03/20/20 19:00 07:00 Intake Total 1735.0 ml 960.0 ml Output Total 2750 ml 700 ml Balance -1015.0 ml 260.0 ml Intake Oral 1080 ml 120 ml IV Total 655.0 ml 840.0 ml Output Urine Total 2750 ml 700 ml General Appearance: cachetic HEENT: normocephalic, atraumatic Respiratory: chest wall non-tender, lungs clear, normal breath sounds, no respiratory distress Cardiovascular: normal peripheral pulses, normal rate, regular rhythm Abdomen: normal bowel sounds, soft, non tender, no organomegaly Genitourinary: normal external genitalia Extremities: no clubbing Skin: no rash 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: 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 normal Microbiology Date/Time Source Procedure Growth Status 03/17/20 19:00 Blood Blood Culture - Preliminary NO GROWTH AFTER 48 HOURS Resulted 03/17/20 18:45 Blood Blood Culture - Preliminary NO GROWTH AFTER 48 HOURS Resulted 03/18/20 09:15 Indwelling Cath Urine Culture - Preliminary NO GROWTH Resulted Laboratory Tests 03/19/20 16:07: POC Whole Blood Glucose 159H 03/19/20 20:17: POC Whole Blood Glucose 96 8/11/20 05:23: POC Whole Blood Glucose 82 03/20/20 08:45: White Blood Count 24.0*H, Red Blood Count 3.20L, Hemoglobin 8.1L, Hematocrit 25.5L, Mean Corpuscular Volume 80, Mean Corpuscular Hemoglobin 25.5L, Mean Corpuscular Hemoglobin Concent 31.9L, Red Cell Distribution Width 16.4H, Platelet Count 232, Mean Platelet Volume 5.9L, Neutrophils (%) (Auto) , Lymphocytes (%) (Auto) , Monocytes (%) (Auto) , Eosinophils (%) (Auto) , Basophils (%) (Auto) , Neutrophils % (Manual) [Pending], Lymphocytes % (Manual) [Pending], Platelet Estimate [Pending], Platelet Morphology [Pending], Sodium Level 138, Potassium Level 3.9, Chloride Level 107, Carbon Dioxide Level 26, Anion Gap 6, Blood Urea Nitrogen 7, Creatinine 1.1, Estimat Glomerular Filtration Rate > 60, Glucose Level 129H, Calcium Level 8.2L 03/20/20 11:16: POC Whole Blood Glucose 91 Current Medications Medications (Trade) Dose Ordered Sig/Levi Route PRN Reason Start Time Stop Time Status Last Admin Dose Admin Acetaminophen (Tylenol) 650 mg Q4H PRN ORAL fever (T>100.5F) 03/18/20 16:45 04/09/20 04:44 Albuterol/ Ipratropium (Albuterol/ Ipratropium) 3 ml Q4HRT PRN HHN Shortness of Breath 03/18/20 19:00 03/23/20 09:59 03/19/20 12:34 Atorvastatin Calcium (Lipitor) 20 mg BEDTIME ORAL 03/18/20 21:00 06/09/20 20:59 03/19/20 20:57 Dextrose (Dextrose 50%) 25 ml Q30M PRN IV Hypoglycemia 03/18/20 16:30 06/11/20 04:59 Dextrose (Dextrose 50%) 50 ml Q30M PRN IV Hypoglycemia 03/18/20 16:30 06/08/20 14:29 Finasteride (Proscar) 5 mg DAILY ORAL 03/19/20 09:00 06/09/20 08:59 03/20/20 08:38 Insulin Aspart (NovoLOG) No Dose BEFORE MEALS AND HS SUBQ 03/18/20 16:30 06/15/20 06:29 03/19/20 16:39 Lidocaine HCl (Xylocaine Jelly 2%) 1 applic DAILYPRN PRN TOPIC for pain in penile region 03/18/20 16:30 06/16/20 16:29 Metoprolol Tartrate (Lopressor) 12.5 mg BID ORAL 03/18/20 18:00 06/08/20 21:59 03/20/20 08:38 Nateglinide (Starlix) 120 mg DAILY ORAL 03/19/20 09:00 04/10/20 08:59 03/20/20 08:39 Nitroglycerin (Ntg) 0.4 mg Q5M PRN SL Prn Chest Pain 03/18/20 16:30 04/09/20 14:29 Ondansetron HCl (Zofran) 4 mg Q6H PRN IVP Nausea & Vomiting 03/18/20 16:45 04/09/20 04:44 Piperacillin Sod/ Tazobactam Sod 3.375 gm/Sodium Chloride 110 ml @ 27.5 mls/hr EVERY 8 HOURS IVPB 03/18/20 22:00 03/23/20 21:59 03/20/20 05:02 Polyethylene Glycol (Miralax) 17 gm DAILYPRN PRN ORAL Constipation 03/18/20 16:31 04/17/20 16:30 Sodium Chloride 1,000 ml @ 100 mls/hr Q10H IVLG 03/18/20 16:30 04/09/20 16:14 03/20/20 08:39 Tamsulosin HCl (Flomax) 0.4 mg BEDTIME ORAL 03/18/20 21:00 04/09/20 20:59 03/18/20 21:21 Vancomycin HCl (Vanco pharmacy to dose) 1 ea DAILY PRN MISC Per rx protocol 03/18/20 21:30 04/17/20 21:29 Vancomycin/Sodium Chloride 275 ml @ 137.5 mls/ hr Q24H IVPB 03/20/20 02:00 03/25/20 01:59 03/20/20 01:57 Assessment/Plan Problems: (1) Sepsis (2) Urethral fistula (3) UTI (urinary tract infection) (4) MDRO (multiple drug resistant organisms) resistance (5) NSTEMI (non-ST elevated myocardial infarction) (6) Bladder cancer (7) Hematuria (8) Anemia (9) Diabetes mellitus (10) HTN (hypertension) (11) Alzheimer's dementia (12) Chronic cerebrovascular accident (CVA) Assessment/Plan wbc still high, higher today much less hematuria, urine is clearer continue teli monitoring On Vanco, Meropenem anemia w/u miller culture, MDR ecoli in urine sliding scale symptomatic treatment Og Hinkle MD Mar 20, 2020 12:14
[2020-03-20 16:07] VITALS: BP 112/50
--- NOTE | 2020-03-20 16:20 | Diagnostic Imaging Report ---
Indication: Renal failure, history of hydronephrosis Technique: Grayscale and duplex images of the kidneys, retroperitoneum, and bladder were obtained. Comparison: Abdomen pelvis CT dated 03/15/2020, renal sonogram dated 12/29/2018 Findings: Right kidney measures 9.6 cm in length. Left kidney measures 10.1 cm in length. Both kidneys demonstrate normal echogenicity. There is mild hydronephrosis on the left. Left nephroureteral stent is visualized, also demonstrated on prior CT scan. Extensive hydronephrosis appears similar to that demonstrated on prior CT. No focal abnormality. Normal inferior vena cava. Bladder is empty, contains a Robertson catheter. Hypervascular mass occupies the upper portion of the bladder. This is also demonstrated on prior CT scan.. Impression: Mild left hydronephrosis, despite the presence of a nephroureteral stent, also demonstrated on recent CT scan Bladder mass, also described on recent CT scan. Consider cystoscopy if this has not been worked up previously. Robertson catheter. Normal right kidney.
--- NOTE | 2020-03-20 16:38 | NUR ---
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 Afebrile Sepsis Leukocytosis, overall improved but remains elevated - no abscess on CT L hydronephrosis, stent in place 03/14 CT abd/p: Mass within the bladder increased in size since previous examination. Presumably this represents bladder neoplasm. Air is also noted within the bladder and the possibility of bladder infection or internal fistula to the bladder should be considered. Left hydronephrosis and with air in the left renal collecting system. There is a left ureteral stent. The air likely is coming from the bladder but the possibility of infection again is not excluded. Atherosclerotic change. Degenerative change in the spine.Cholelithiasis. Bilateral pleural effusions, right greater than left.Subcutaneous edema consistent with mild anasarca. 03/17 BCx NTD 03/18 UCx NTD UTI/pyelonephritis, UA with tnct WBC, UCx >100k ESBL E.coli on 03/10 Rapid COVID neg x1 03/13 CXR: Some crowding of markings remain inthe lung bases likely related to a limited inspiration and low lung volumes. No new alveolar process. R/o bacteremia 03/11 BCx NTD 03/10 BCx NTD NSTEMI w/ elevated troponin, can also be a cause of reactive leukocytosis Bladder cancer Hematuria On CBI per Urology PATIENT CLEARED FOR ST INTERVENTION BY DONELL MORA.. PATIENT RECEIVED SITTING UPRIGHT IN BED. WITH ST PATIENT FINISHED MEALTIME SUPPLEMENT AT BEDSIDE (8 OZ GLYCERNA) PRESENTED IN 5ML AMOUNTS VIA SPOON. PATIENT HAD TO REST X3 DUE TO EMERGENCE OF WHEEZING WHICH RESOLVED QUICKLY WITH REST. BASELINE VITAL SIGNS: ON ROOM AIR: 18 BPM, 02 SAT: 100% GOALS MET FOR SAFE P.O. INTAKE OF LEAST RESTRICTIVE DIET WITH NO OVERT S/S OF ASPIRATION. P.O. INTAKE LEVELS REMAIN VARIABLE. GOAL MET FOR STAFF TRAINING/WITH MEALTIME PROTOCOL WHICH IS POSTED AT BEDSIDE. RECOMMENDATIONS: 1. CONTINUE CURRENT DIET WITH MEALTIME SUPPLEMENT 2. TOTAL ASSIST WITH MEALS 3. CRUSH CRUSHABLE MEDS/PRESENT IN PUREE 4. RN REMINDED THAT IF PATIENT BECOMES SHORT OF BREATH WITH MEALS/ STARTS WHEEZING, STOP/RELAX, THEN RESUME MEAL. 5. ST TO CONTINUE TO ADDRESS DIET TOLERANCE, PATIENT/CAREGIVER TRAINING
--- NOTE | 2020-03-20 19:07 | Internal Med Progress Note ---
Subjective Date of Service: Mar 20, 2020 Physician Name BrittaniJean-Claude Attending Physician Jaziel Lowe MD Current Medications Medications (Trade) Dose Ordered Sig/Levi Route PRN Reason Start Time Stop Time Status Last Admin Dose Admin Acetaminophen (Tylenol) 650 mg Q4H PRN ORAL fever (T>100.5F) 03/18/20 16:45 04/09/20 04:44 Albuterol/ Ipratropium (Albuterol/ Ipratropium) 3 ml Q4HRT PRN HHN Shortness of Breath 03/18/20 19:00 03/23/20 09:59 03/19/20 12:34 Atorvastatin Calcium (Lipitor) 20 mg BEDTIME ORAL 03/18/20 21:00 06/09/20 20:59 03/19/20 20:57 Dextrose (Dextrose 50%) 25 ml Q30M PRN IV Hypoglycemia 03/18/20 16:30 06/11/20 04:59 Dextrose (Dextrose 50%) 50 ml Q30M PRN IV Hypoglycemia 03/18/20 16:30 06/08/20 14:29 Finasteride (Proscar) 5 mg DAILY ORAL 03/19/20 09:00 06/09/20 08:59 03/20/20 08:38 Insulin Aspart (NovoLOG) No Dose BEFORE MEALS AND HS SUBQ 03/18/20 16:30 06/15/20 06:29 03/19/20 16:39 Lidocaine HCl (Xylocaine Jelly 2%) 1 applic DAILYPRN PRN TOPIC for pain in penile region 03/18/20 16:30 06/16/20 16:29 Metoprolol Tartrate (Lopressor) 12.5 mg BID ORAL 03/18/20 18:00 06/08/20 21:59 03/20/20 17:23 Nateglinide (Starlix) 120 mg DAILY ORAL 03/19/20 09:00 04/10/20 08:59 03/20/20 08:39 Nitroglycerin (Ntg) 0.4 mg Q5M PRN SL Prn Chest Pain 03/18/20 16:30 04/09/20 14:29 Ondansetron HCl (Zofran) 4 mg Q6H PRN IVP Nausea & Vomiting 03/18/20 16:45 04/09/20 04:44 Piperacillin Sod/ Tazobactam Sod 3.375 gm/Sodium Chloride 110 ml @ 27.5 mls/hr EVERY 8 HOURS IVPB 03/18/20 22:00 03/23/20 21:59 03/20/20 14:20 Polyethylene Glycol (Miralax) 17 gm DAILYPRN PRN ORAL Constipation 03/18/20 16:31 04/17/20 16:30 Sodium Chloride 1,000 ml @ 100 mls/hr Q10H IVLG 03/18/20 16:30 04/09/20 16:14 03/20/20 17:24 Tamsulosin HCl (Flomax) 0.4 mg BEDTIME ORAL 03/18/20 21:00 04/09/20 20:59 03/18/20 21:21 Vancomycin HCl (Vanco pharmacy to dose) 1 ea DAILY PRN MISC Per rx protocol 03/18/20 21:30 04/17/20 21:29 Vancomycin/Sodium Chloride 275 ml @ 137.5 mls/ hr Q24H IVPB 03/20/20 02:00 03/25/20 01:59 03/20/20 01:57 Allergies: Coded Allergies: No Known Allergies (Unverified , 04/09/16) ROS Limited/Unobtainable: No Constitutional: Reports: no symptoms HEENT: Reports: no symptoms Cardiovascular: Reports: no symptoms Respiratory: Reports: no symptoms Gastrointestinal/Abdominal: Reports: no symptoms Genitourinary: Reports: no symptoms 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: Reports: no symptoms Subjective 84 YO M with a history of bladder cancer admitted with chest pain. Now severe anemia and hematuria. Cover for Int Uriel-DR Lowe. Objective Last Vital Signs Date Time Temp Pulse Resp B/P (MAP) Pulse Ox O2 Delivery O2 Flow Rate FiO2 03/20/20 17:23 63 112/50 03/20/20 16:07 98.1 18 99 03/20/20 09:06 Room Air 03/19/20 19:25 21 03/18/20 10:24 2.0 Laboratory Tests Test 03/19/20 20:17 03/20/20 05:23 03/20/20 08:45 03/20/20 11:16 POC Whole Blood Glucose 96 MG/DL (74-106) 82 MG/DL (74-106) 91 MG/DL (74-106) White Blood Count 24.0 K/UL (4.8-10.8) *H Red Blood Count 3.20 M/UL (4.70-6.10) L Hemoglobin 8.1 G/DL (14.2-18.0) L Hematocrit 25.5 % (42.0-52.0) L Mean Corpuscular Volume 80 FL (80-99) Mean Corpuscular Hemoglobin 25.5 PG (27.0-31.0) L Mean Corpuscular Hemoglobin Concent 31.9 G/DL (32.0-36.0) L Red Cell Distribution Width 16.4 % (11.6-14.8) H Platelet Count 232 K/UL (150-450) Mean Platelet Volume 5.9 FL (6.5-10.1) L Neutrophils (%) (Auto) % (45.0-75.0) Lymphocytes (%) (Auto) % (20.0-45.0) Monocytes (%) (Auto) % (1.0-10.0) Eosinophils (%) (Auto) % (0.0-3.0) Basophils (%) (Auto) % (0.0-2.0) Differential Total Cells Counted 100 Neutrophils % (Manual) 95 % (45-75) H Lymphocytes % (Manual) 2 % (20-45) L Monocytes % (Manual) 3 % (1-10) Eosinophils % (Manual) 0 % (0-3) Basophils % (Manual) 0 % (0-2) Band Neutrophils 0 % (0-8) Platelet Estimate Adequate Platelet Morphology Normal Hypochromasia 2+ Anisocytosis 1+ Microcytosis 1+ Sodium Level 138 MMOL/L (136-145) Potassium Level 3.9 MMOL/L (3.5-5.1) Chloride Level 107 MMOL/L (98-107) Carbon Dioxide Level 26 MMOL/L (21-32) Anion Gap 6 mmol/L (5-15) Blood Urea Nitrogen 7 mg/dL (7-18) Creatinine 1.1 MG/DL (0.55-1.30) Estimat Glomerular Filtration Rate > 60 mL/min (>60) Glucose Level 129 MG/DL (74-106) H Calcium Level 8.2 MG/DL (8.5-10.1) L Microbiology Date/Time Source Procedure Growth Status 03/18/20 09:15 Indwelling Cath Urine Culture - Preliminary NO GROWTH Resulted Intake and Output 03/19/20 03/20/20 19:00 07:00 Intake Total 1735.0 ml 960.0 ml Output Total 2750 ml 700 ml Balance -1015.0 ml 260.0 ml Intake Oral 1080 ml 120 ml IV Total 655.0 ml 840.0 ml Output Urine Total 2750 ml 700 ml Objective PHYSICAL EXAMINATION: GENERAL: The patient is a well-developed and well-nourished male, in no apparent distress. HEENT: Eyes, pupils are equal and responsive to light and accommodation. Extraocular movements are intact. NECK: Supple without lymphadenopathy. CHEST: Lungs are clear to auscultation bilaterally without wheezes or rales. CARDIOVASCULAR: Regular rhythm and rate. S1, S2 are normal without murmurs, rubs, or gallops. ABDOMEN: Soft, nontender, and nondistended. Positive bowel sounds. No evidence of hepatosplenomegaly. Currently, no rebound or guarding noted. EXTREMITIES: Negative for clubbing, cyanosis, or edema. RECTAL/GENITAL: Not performed. NEUROLOGIC: Cranial nerves II through XII are grossly intact without focal deficits. Motor strength is 5/5 bilaterally. Deep tendon reflexes are 2+ plantar. Assessment/Plan Assessment/Plan ASSESSMENT: This is an 84-year-old male. 1. Chest pain. 2. Elevated troponin level. 3. Bladder cancer. 4. Gastritis. 5. Hypertension. 6. Diabetes type 2. 7. Atrioventricular conduction defect. 8. Alzheimer's dementia. 9. Cerebrovascular disease. 10. Right hemiplegia. 11. Pacemaker in situ. 12. Urinary tract infection=ESBL E. Coli 13. Persistant leukocytosis due to UTI 14. Hematuria 15. severe anemia TREATMENT: 1. Chest pain/elevated troponin. A Cardiology consultation has been obtained with Dr. Nj Valenzuela. We will follow recommendations of Cardiology. 2. Bladder cancer. CT=bladder mass increased in size from prior. Urology= Dr. Macho Allen. The patient is status post transurethral resection of bladder tumor x2. We will follow recommendations of Urology. 3. Gastritis. Continue Protonix as above. 4. Hypertension. 5. Diabetes type 2. A NovoLog sliding scale has been instituted. 6. Atrioventricular conduction defect. The patient is status post pacemaker implantation. 7. Alzheimer's dementia. 8. Cerebrovascular disease, status post cerebrovascular accident. 9. Right hemiplegia. 10. ABX=S/P meropenem; continue zosyn and vanco per ID=Dr Darby 11. Bladder irrigation per urology 12. S/P trransfusion 3 units PRBC 13. Left message with sonJamir regarding plan of care, ie, cystoscopy Jean-Claude Peter MD Mar 20, 2020 19:07
--- NOTE | 2020-03-20 19:14 | NUR ---
NURSE HAND-OFF: Important Events on Shift: CBI MONITORING Patient Status: Diet: Pending Orders: Pending Results/Labs: Pending MD notification: Latest Vital Signs: Temperature 98.1 , Pulse 63 , B/P 112 /50 , Respiratory Rate 18 , O2 SAT 99 , Room Air, O2 Flow Rate . Vital Sign Comment: Latest Damon Fall Score: 50 Fall Risk: High Risk Safety Measures: Call light Within Reach, Bed Alarm Zone 2, Side Rails Side Rails x3, Bed position Low and Locked. Fall Precautions: Yellow Socks Yellow Gown Door Sign Patient Fall Education Report given to .
--- NOTE | 2020-03-20 19:50 | NUR ---
NURSE NOTES: Received report from husam randhawa. patient is on bed, awake. head of bed elevated. respirations even and unlabored. on room air. no sob. with 2 iv lines on the right forearm and right wrist. with [address] hernandez catheter. on CBI draining a light pink output. reiterated to call and ask for assistance. will observed fallrisk, aspiration and seizure precautions. bed locked and in lowest position. call light and light button within easy reach. will continue plan of care.
[2020-03-20 20:00] VITALS: BP 110/51
[2020-03-20] MEDS: Tamsulosin 0.4mg cap ORAL SCH (20:46)
[2020-03-20] MEDS: Atorvastatin 20mg tab ORAL SCH (20:46)
[2020-03-20] MEDS: Albuterol/Ipratropium 3ml neb HHN PRN (21:02)
[2020-03-21] VITALS: BP 122/58
[2020-03-21] MEDS: Vancomycin 1.5gm/NS Premix IVPB SCH (01:51)
[2020-03-21 04:00] VITALS: BP 112/53
[2020-03-21] MEDS: Piperacillin/Tazobactam 3.375 GM in NS 110 ML IVPB SCH ×3 (05:20→22:36)
[2020-03-21] MEDS: NovoLOG Insulin Flexpen SUBQ SCH ×4 (06:00→20:18)
--- NOTE | 2020-03-21 06:26 | NUR ---
NURSE HAND-OFF: Important Events on Shift:CBI MONITORING Patient Status: STABLE Diet: CCHO MEDIUM Pending Orders: NONE Pending Results/Labs:pending Pending MD notification: Latest Vital Signs: Temperature 97.7 , Pulse 73 , B/P 112 /53 , Respiratory Rate 19 , O2 SAT 98 , Room Air, O2 Flow Rate . Vital Sign Comment:blood sugar of 102 Latest Damon Fall Score: 50 Fall Risk: High Risk Safety Measures: Call light Within Reach, Bed Alarm Zone 1, Side Rails Side Rails x3, Bed position Low and Locked. Fall Precautions: Yellow Socks Yellow Gown Door Sign Patient Fall Education Addendum: 03/21/20 at 716 by Marlyn Torrez RN Report given to husam jackson Addendum: 03/21/20 at 716 by Marlyn Torrez RN urine output of 1600ml.
[2020-03-21 07:08] LABS: HEMATOCRIT 24.9 % (42.0-52.0); HEMOGLOBIN 7.9 G/DL (14.2-18.0); MEAN CORPUSCULAR VOLUME 80 FL (80-99); PLATELET COUNT 243 K/UL (150-450); RED CELL DISTRIBUTION WIDTH 16.9 % (11.6-14.8); WHITE BLOOD COUNT 20.7 K/UL (4.8-10.8)
[2020-03-21 07:10] LABS: ANION GAP 5 mmol/L (5-15); BLOOD UREA NITROGEN 7 mg/dL (7-18); CALCIUM 8.1 MG/DL (8.5-10.1); CARBON DIOXIDE 25 MMOL/L (21-32); CHLORIDE 107 MMOL/L (98-107); CREATININE 1.1 MG/DL (0.55-1.30); SODIUM 137 MMOL/L (136-145)
--- NOTE | 2020-03-21 07:34 | NUR ---
NURSE NOTES: Report received from DONELL Greco. Patient received awake in bed, A and O x 2, verbal and able to make needs known, no SOB, IV line present and patent, bed in lowest position with breaks engaged and alarm on, padded side rails, denies any pain or discomfort at this time, on room air, 3 way FC present, will continue to monitor and proceed with plan of care, call light within reach.
--- NOTE | 2020-03-21 07:47 | Infectious Diseases Prog Note ---
Assessment/Plan 84yo M with bladder cancer who p/w chest pain, found to have elevated troponin and leukocytosis. Afebrile Sepsis Leukocytosis, overall improved but remains elevated - no abscess on CT L hydronephrosis, stent in place 03/14 CT abd/p: Mass within the bladder increased in size since previous examination. Presumably this represents bladder neoplasm. Air is also noted within the bladder and the possibility of bladder infection or internal fistula to the bladder should be considered. Left hydronephrosis and with air in the left renal collecting system. There is a left ureteral stent. The air likely is coming from the bladder but the possibility of infection again is not excluded. Atherosclerotic change. Degenerative change in the spine.Cholelithiasis. Bilateral pleural effusions, right greater than left.Subcutaneous edema consistent with mild anasarca. 03/17 BCx NTD 03/18 UCx NTD 03/20 Renal US w/ persistent L hydro UTI/pyelonephritis, UA with tnct WBC, UCx >100k ESBL E.coli on 03/10 Rapid COVID neg x1 03/13 CXR: Some crowding of markings remain inthe lung bases likely related to a limited inspiration and low lung volumes. No new alveolar process. R/o bacteremia 03/11 BCx NTD 03/10 BCx NTD NSTEMI w/ elevated troponin, can also be a cause of reactive leukocytosis Bladder cancer Hematuria On CBI per Urology Plan: Stop vanco #2 given neg cx and neg MRSA nares Cont Zosyn #3/5-7 empiric given leukocytosis, improving Trend WBC daily 03/21 SP vanco #2 03/18 SP latoya #7 for ESBL UTI/pyelo 03/12 SP vanco #2, cefepime #2 No diarrhea, but if occurs check C.dif Trend resp status Trend leukocytosis daily Monitor CBC, CMP D/w staff Thank you for this consult. [facility] will continue to follow. Subjective Allergies: Coded Allergies: No Known Allergies (Unverified , 04/09/16) AF WBC improving to 20 NAD, feeling OK Objective Last 24 Hour Vital Signs Date Time Temp Pulse Resp B/P (MAP) Pulse Ox O2 Delivery O2 Flow Rate FiO2 03/21/20 04:00 97.7 73 19 112/53 (72) 98 03/21/20 00:00 98.0 62 19 122/58 (79) 96 03/20/20 21:03 97 Room Air 21 03/20/20 21:03 76 18 100 Room Air 21 71 16 97 03/20/20 21:00 Room Air 03/20/20 20:00 98.7 60 19 110/51 (70) 98 03/20/20 17:23 63 112/50 03/20/20 16:07 98.1 63 18 112/50 (70) 99 03/20/20 12:00 97.7 60 18 105/55 (72) 100 03/20/20 09:06 Room Air 03/20/20 08:38 70 122/65 03/20/20 08:00 98.3 70 19 122/65 (84) 99 Height (Feet): 5 Height (Inches): 9.00 Weight (Pounds): 186 Gen: Older man, laying in bed, NAD Pulm: Breathing comfortably on RA Abd; Soft, NTND Neuro: Awake, interactive Microbiology Date/Time Source Procedure Growth Status 03/18/20 09:15 Indwelling Cath Urine Culture - Preliminary NO GROWTH AFTER 24 HOURS Resulted Laboratory Tests Test 03/20/20 08:45 03/20/20 11:16 03/20/20 16:22 03/21/20 06:30 White Blood Count 24.0 K/UL (4.8-10.8) *H 20.7 K/UL (4.8-10.8) H Red Blood Count 3.20 M/UL (4.70-6.10) L 3.10 M/UL (4.70-6.10) L Hemoglobin 8.1 G/DL (14.2-18.0) L 7.9 G/DL (14.2-18.0) L Hematocrit 25.5 % (42.0-52.0) L 24.9 % (42.0-52.0) L Mean Corpuscular Volume 80 FL (80-99) 80 FL (80-99) Mean Corpuscular Hemoglobin 25.5 PG (27.0-31.0) L 25.4 PG (27.0-31.0) L Mean Corpuscular Hemoglobin Concent 31.9 G/DL (32.0-36.0) L 31.7 G/DL (32.0-36.0) L Red Cell Distribution Width 16.4 % (11.6-14.8) H 16.9 % (11.6-14.8) H Platelet Count 232 K/UL (150-450) 243 K/UL (150-450) Mean Platelet Volume 5.9 FL (6.5-10.1) L 6.0 FL (6.5-10.1) L Neutrophils (%) (Auto) % (45.0-75.0) % (45.0-75.0) Lymphocytes (%) (Auto) % (20.0-45.0) % (20.0-45.0) Monocytes (%) (Auto) % (1.0-10.0) % (1.0-10.0) Eosinophils (%) (Auto) % (0.0-3.0) % (0.0-3.0) Basophils (%) (Auto) % (0.0-2.0) % (0.0-2.0) Differential Total Cells Counted 100 Neutrophils % (Manual) 95 % (45-75) H Pending Lymphocytes % (Manual) 2 % (20-45) L Pending Monocytes % (Manual) 3 % (1-10) Eosinophils % (Manual) 0 % (0-3) Basophils % (Manual) 0 % (0-2) Band Neutrophils 0 % (0-8) Platelet Estimate Adequate Pending Platelet Morphology Normal Pending Hypochromasia 2+ Anisocytosis 1+ Microcytosis 1+ Sodium Level 138 MMOL/L (136-145) 137 MMOL/L (136-145) Potassium Level 3.9 MMOL/L (3.5-5.1) 4.0 MMOL/L (3.5-5.1) Chloride Level 107 MMOL/L (98-107) 107 MMOL/L (98-107) Carbon Dioxide Level 26 MMOL/L (21-32) 25 MMOL/L (21-32) Anion Gap 6 mmol/L (5-15) 5 mmol/L (5-15) Blood Urea Nitrogen 7 mg/dL (7-18) 7 mg/dL (7-18) Creatinine 1.1 MG/DL (0.55-1.30) 1.1 MG/DL (0.55-1.30) Estimat Glomerular Filtration Rate > 60 mL/min (>60) > 60 mL/min (>60) Glucose Level 129 MG/DL (74-106) H 97 MG/DL (74-106) Calcium Level 8.2 MG/DL (8.5-10.1) L 8.1 MG/DL (8.5-10.1) L POC Whole Blood Glucose 91 MG/DL (74-106) Pending Current Medications Medications (Trade) Dose Ordered Sig/Levi Route PRN Reason Start Time Stop Time Status Last Admin Dose Admin Acetaminophen (Tylenol) 650 mg Q4H PRN ORAL fever (T>100.5F) 03/18/20 16:45 04/09/20 04:44 Albuterol/ Ipratropium (Albuterol/ Ipratropium) 3 ml Q4HRT PRN HHN Shortness of Breath 03/18/20 19:00 03/23/20 09:59 03/20/20 21:02 Atorvastatin Calcium (Lipitor) 20 mg BEDTIME ORAL 03/18/20 21:00 06/09/20 20:59 03/20/20 20:46 Dextrose (Dextrose 50%) 25 ml Q30M PRN IV Hypoglycemia 03/18/20 16:30 06/11/20 04:59 Dextrose (Dextrose 50%) 50 ml Q30M PRN IV Hypoglycemia 03/18/20 16:30 06/08/20 14:29 Finasteride (Proscar) 5 mg DAILY ORAL 03/19/20 09:00 06/09/20 08:59 03/20/20 08:38 Insulin Aspart (NovoLOG) No Dose BEFORE MEALS AND HS SUBQ 03/18/20 16:30 06/15/20 06:29 03/19/20 16:39 Lidocaine HCl (Xylocaine Jelly 2%) 1 applic DAILYPRN PRN TOPIC for pain in penile region 03/18/20 16:30 06/16/20 16:29 Metoprolol Tartrate (Lopressor) 12.5 mg BID ORAL 03/18/20 18:00 06/08/20 21:59 03/20/20 17:23 Nateglinide (Starlix) 120 mg DAILY ORAL 03/19/20 09:00 04/10/20 08:59 03/20/20 08:39 Nitroglycerin (Ntg) 0.4 mg Q5M PRN SL Prn Chest Pain 03/18/20 16:30 04/09/20 14:29 Ondansetron HCl (Zofran) 4 mg Q6H PRN IVP Nausea & Vomiting 03/18/20 16:45 04/09/20 04:44 Piperacillin Sod/ Tazobactam Sod 3.375 gm/Sodium Chloride 110 ml @ 27.5 mls/hr EVERY 8 HOURS IVPB 03/18/20 22:00 03/23/20 21:59 03/21/20 05:20 Polyethylene Glycol (Miralax) 17 gm DAILYPRN PRN ORAL Constipation 03/18/20 16:31 04/17/20 16:30 Sodium Chloride 1,000 ml @ 100 mls/hr Q10H IVLG 03/18/20 16:30 04/09/20 16:14 03/20/20 23:21 Tamsulosin HCl (Flomax) 0.4 mg BEDTIME ORAL 03/18/20 21:00 04/09/20 20:59 03/20/20 20:46 Vancomycin HCl (Vanco pharmacy to dose) 1 ea DAILY PRN MISC Per rx protocol 03/18/20 21:30 04/17/20 21:29 Vancomycin/Sodium Chloride 275 ml @ 137.5 mls/ hr Q24H IVPB 03/20/20 02:00 03/25/20 01:59 03/21/20 01:51 Carlie Callaway M.D. Mar 21, 2020 07:47
[2020-03-21 08:00] VITALS: BP 118/53
--- NOTE | 2020-03-21 08:06 | Urology Progress Note ---
Assessment/Plan Assessment/Plan: 1. Gross hematuria. 2. Bladder cancer history with enlarging bladder mass. 3. Left-sided hydro, which is chronic. 4. BPH history. 5. Urinary retention. 6. UTI. 7. Proteinuria. 8. Neurogenic bladder. maintain hernandez, 3-way placed 03/15 CBI, titrate rate to keep clear hernandez hand irrigated and do PRN occasional small clots noted abx as ordered monitor h/h, wbc blood transfusion PRN off ASA since 03/13 flomax and proscar consider cysto if feasible, family decision? med/onc f/u f/u on last urine and blood cx d/w nursing staff d/w primary service Subjective Allergies: Coded Allergies: No Known Allergies (Unverified , 04/09/16) Subjective all noted, comfortable CBI running Objective Last 24 Hour Vital Signs Date Time Temp Pulse Resp B/P (MAP) Pulse Ox O2 Delivery O2 Flow Rate FiO2 03/21/20 04:00 97.7 73 19 112/53 (72) 98 03/21/20 00:00 98.0 62 19 122/58 (79) 96 03/20/20 21:03 97 Room Air 21 03/20/20 21:03 76 18 100 Room Air 21 71 16 97 03/20/20 21:00 Room Air 03/20/20 20:00 98.7 60 19 110/51 (70) 98 03/20/20 17:23 63 112/50 03/20/20 16:07 98.1 63 18 112/50 (70) 99 03/20/20 12:00 97.7 60 18 105/55 (72) 100 03/20/20 09:06 Room Air 03/20/20 08:38 70 122/65 Intake and Output 03/20/20 03/21/20 19:00 07:00 Intake Total 6965.0 ml 1055.0 ml Output Total 70216 ml 1600 ml Balance -5035.0 ml -545.0 ml Intake Oral 300 ml 170 ml IV Total 765.0 ml 885.0 ml Other 5900 ml Output Urine Total 87958 ml 1600 ml Microbiology Date/Time Source Procedure Growth Status 03/17/20 19:00 Blood Blood Culture - Preliminary NO GROWTH AFTER 72 HOURS Resulted 03/12/20 06:05 Nasal Nares MRSA Culture - Final NO METHICILLIN RESISTANT STAPH AUREUS... Complete 03/18/20 09:15 Indwelling Cath Urine Culture - Preliminary NO GROWTH AFTER 24 HOURS Resulted 03/12/20 04:00 Rectum VRE Culture - Final Enterococcus Faecalis - Vre Complete Current Medications Medications (Trade) Dose Ordered Sig/Levi Route PRN Reason Start Time Stop Time Status Last Admin Dose Admin Acetaminophen (Tylenol) 650 mg Q4H PRN ORAL fever (T>100.5F) 03/18/20 16:45 04/09/20 04:44 Albuterol/ Ipratropium (Albuterol/ Ipratropium) 3 ml Q4HRT PRN HHN Shortness of Breath 03/18/20 19:00 03/23/20 09:59 03/20/20 21:02 Atorvastatin Calcium (Lipitor) 20 mg BEDTIME ORAL 03/18/20 21:00 06/09/20 20:59 03/20/20 20:46 Dextrose (Dextrose 50%) 25 ml Q30M PRN IV Hypoglycemia 03/18/20 16:30 06/11/20 04:59 Dextrose (Dextrose 50%) 50 ml Q30M PRN IV Hypoglycemia 03/18/20 16:30 06/08/20 14:29 Finasteride (Proscar) 5 mg DAILY ORAL 03/19/20 09:00 06/09/20 08:59 03/20/20 08:38 Insulin Aspart (NovoLOG) No Dose BEFORE MEALS AND HS SUBQ 03/18/20 16:30 06/15/20 06:29 03/19/20 16:39 Lidocaine HCl (Xylocaine Jelly 2%) 1 applic DAILYPRN PRN TOPIC for pain in penile region 03/18/20 16:30 06/16/20 16:29 Metoprolol Tartrate (Lopressor) 12.5 mg BID ORAL 03/18/20 18:00 06/08/20 21:59 03/20/20 17:23 Nateglinide (Starlix) 120 mg DAILY ORAL 03/19/20 09:00 04/10/20 08:59 03/20/20 08:39 Nitroglycerin (Ntg) 0.4 mg Q5M PRN SL Prn Chest Pain 03/18/20 16:30 04/09/20 14:29 Ondansetron HCl (Zofran) 4 mg Q6H PRN IVP Nausea & Vomiting 03/18/20 16:45 04/09/20 04:44 Piperacillin Sod/ Tazobactam Sod 3.375 gm/Sodium Chloride 110 ml @ 27.5 mls/hr EVERY 8 HOURS IVPB 03/18/20 22:00 03/23/20 21:59 03/21/20 05:20 Polyethylene Glycol (Miralax) 17 gm DAILYPRN PRN ORAL Constipation 03/18/20 16:31 04/17/20 16:30 Sodium Chloride 1,000 ml @ 100 mls/hr Q10H IVLG 03/18/20 16:30 04/09/20 16:14 03/20/20 23:21 Tamsulosin HCl (Flomax) 0.4 mg BEDTIME ORAL 03/18/20 21:00 04/09/20 20:59 03/20/20 20:46 Laboratory Tests 03/20/20 08:45: White Blood Count 24.0*H, Red Blood Count 3.20L, Hemoglobin 8.1L, Hematocrit 25.5L, Mean Corpuscular Volume 80, Mean Corpuscular Hemoglobin 25.5L, Mean Corpuscular Hemoglobin Concent 31.9L, Red Cell Distribution Width 16.4H, Platelet Count 232, Mean Platelet Volume 5.9L, Neutrophils (%) (Auto) , Lymphocytes (%) (Auto) , Monocytes (%) (Auto) , Eosinophils (%) (Auto) , Basophils (%) (Auto) , Differential Total Cells Counted 100, Neutrophils % ( Manual) 95H, Lymphocytes % (Manual) 2L, Monocytes % (Manual) 3, Eosinophils % ( Manual) 0, Basophils % (Manual) 0, Band Neutrophils 0, Platelet Estimate Adequate, Platelet Morphology Normal, Hypochromasia 2+, Anisocytosis 1+, Microcytosis 1+, Sodium Level 138, Potassium Level 3.9, Chloride Level 107, Carbon Dioxide Level 26, Anion Gap 6, Blood Urea Nitrogen 7, Creatinine 1.1, Estimat Glomerular Filtration Rate > 60, Glucose Level 129H, Calcium Level 8.2L 03/20/20 11:16: POC Whole Blood Glucose 91 03/20/20 16:22: POC Whole Blood Glucose [Pending] 03/21/20 06:30: White Blood Count 20.7H, Red Blood Count 3.10L, Hemoglobin 7.9L, Hematocrit 24.9L, Mean Corpuscular Volume 80, Mean Corpuscular Hemoglobin 25.4L, Mean Corpuscular Hemoglobin Concent 31.7L, Red Cell Distribution Width 16.9H, Platelet Count 243, Mean Platelet Volume 6.0L, Neutrophils (%) (Auto) , Lymphocytes (%) (Auto) , Monocytes (%) (Auto) , Eosinophils (%) (Auto) , Basophils (%) (Auto) , Neutrophils % (Manual) [Pending], Lymphocytes % (Manual) [Pending], Platelet Estimate [Pending], Platelet Morphology [Pending], Sodium Level 137, Potassium Level 4.0, Chloride Level 107, Carbon Dioxide Level 25, Anion Gap 5, Blood Urea Nitrogen 7, Creatinine 1.1, Estimat Glomerular Filtration Rate > 60, Glucose Level 97, Calcium Level 8.1L Height (Feet): 5 Height (Inches): 9.00 Weight (Pounds): 186 Objective exam stable hernandez indwelling, CBI mild-moderate rate urine blood-tinged renal u/s (03/20) noted Macho Allen MD Mar 21, 2020 08:06
[2020-03-21] MEDS: Metoprolol Tartrate 12.5mg TAB ORAL SCH ×2 (08:15→17:40)
--- NOTE | 2020-03-21 11:43 | Internal Med Progress Note ---
Subjective Date of Service: Mar 21, 2020 Physician Name BrittaniJean-Claude Attending Physician Jaziel Lowe MD Current Medications Medications (Trade) Dose Ordered Sig/Levi Route PRN Reason Start Time Stop Time Status Last Admin Dose Admin Acetaminophen (Tylenol) 650 mg Q4H PRN ORAL fever (T>100.5F) 03/18/20 16:45 04/09/20 04:44 Albuterol/ Ipratropium (Albuterol/ Ipratropium) 3 ml Q4HRT PRN HHN Shortness of Breath 03/18/20 19:00 03/23/20 09:59 03/20/20 21:02 Atorvastatin Calcium (Lipitor) 20 mg BEDTIME ORAL 03/18/20 21:00 06/09/20 20:59 03/20/20 20:46 Dextrose (Dextrose 50%) 25 ml Q30M PRN IV Hypoglycemia 03/18/20 16:30 06/11/20 04:59 Dextrose (Dextrose 50%) 50 ml Q30M PRN IV Hypoglycemia 03/18/20 16:30 06/08/20 14:29 Finasteride (Proscar) 5 mg DAILY ORAL 03/19/20 09:00 06/09/20 08:59 03/21/20 08:16 Insulin Aspart (NovoLOG) No Dose BEFORE MEALS AND HS SUBQ 03/18/20 16:30 06/15/20 06:29 03/19/20 16:39 Lidocaine HCl (Xylocaine Jelly 2%) 1 applic DAILYPRN PRN TOPIC for pain in penile region 03/18/20 16:30 06/16/20 16:29 Metoprolol Tartrate (Lopressor) 12.5 mg BID ORAL 03/18/20 18:00 06/08/20 21:59 03/21/20 08:15 Nateglinide (Starlix) 120 mg DAILY ORAL 03/19/20 09:00 04/10/20 08:59 03/21/20 08:15 Nitroglycerin (Ntg) 0.4 mg Q5M PRN SL Prn Chest Pain 03/18/20 16:30 04/09/20 14:29 Ondansetron HCl (Zofran) 4 mg Q6H PRN IVP Nausea & Vomiting 03/18/20 16:45 04/09/20 04:44 Piperacillin Sod/ Tazobactam Sod 3.375 gm/Sodium Chloride 110 ml @ 27.5 mls/hr EVERY 8 HOURS IVPB 03/18/20 22:00 03/23/20 21:59 03/21/20 05:20 Polyethylene Glycol (Miralax) 17 gm DAILYPRN PRN ORAL Constipation 03/18/20 16:31 04/17/20 16:30 Sodium Chloride 1,000 ml @ 100 mls/hr Q10H IVLG 03/18/20 16:30 04/09/20 16:14 03/20/20 23:21 Tamsulosin HCl (Flomax) 0.4 mg BEDTIME ORAL 03/18/20 21:00 04/09/20 20:59 03/20/20 20:46 Allergies: Coded Allergies: No Known Allergies (Unverified , 04/09/16) ROS Limited/Unobtainable: No Constitutional: Reports: no symptoms HEENT: Reports: no symptoms Cardiovascular: Reports: no symptoms Respiratory: Reports: no symptoms Gastrointestinal/Abdominal: Reports: no symptoms Genitourinary: Reports: no symptoms 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: Reports: no symptoms Subjective 84 YO M with a history of bladder cancer admitted with chest pain. Now severe anemia and hematuria. Cover for Int Uriel-DR Lowe. Objective Last Vital Signs Date Time Temp Pulse Resp B/P (MAP) Pulse Ox O2 Delivery O2 Flow Rate FiO2 03/21/20 09:00 Room Air 03/21/20 08:15 76 118/53 03/21/20 08:00 97.9 20 99 03/20/20 21:03 21 03/18/20 10:24 2.0 Laboratory Tests Test 03/20/20 16:22 03/21/20 06:30 POC Whole Blood Glucose Pending White Blood Count 20.7 K/UL (4.8-10.8) H Red Blood Count 3.10 M/UL (4.70-6.10) L Hemoglobin 7.9 G/DL (14.2-18.0) L Hematocrit 24.9 % (42.0-52.0) L Mean Corpuscular Volume 80 FL (80-99) Mean Corpuscular Hemoglobin 25.4 PG (27.0-31.0) L Mean Corpuscular Hemoglobin Concent 31.7 G/DL (32.0-36.0) L Red Cell Distribution Width 16.9 % (11.6-14.8) H Platelet Count 243 K/UL (150-450) Mean Platelet Volume 6.0 FL (6.5-10.1) L Neutrophils (%) (Auto) % (45.0-75.0) Lymphocytes (%) (Auto) % (20.0-45.0) Monocytes (%) (Auto) % (1.0-10.0) Eosinophils (%) (Auto) % (0.0-3.0) Basophils (%) (Auto) % (0.0-2.0) Differential Total Cells Counted 100 Neutrophils % (Manual) 87 % (45-75) H Lymphocytes % (Manual) 5 % (20-45) L Monocytes % (Manual) 6 % (1-10) Eosinophils % (Manual) 1 % (0-3) Basophils % (Manual) 1 % (0-2) Band Neutrophils 0 % (0-8) Platelet Estimate Adequate Platelet Morphology Normal Anisocytosis 1+ Sodium Level 137 MMOL/L (136-145) Potassium Level 4.0 MMOL/L (3.5-5.1) Chloride Level 107 MMOL/L (98-107) Carbon Dioxide Level 25 MMOL/L (21-32) Anion Gap 5 mmol/L (5-15) Blood Urea Nitrogen 7 mg/dL (7-18) Creatinine 1.1 MG/DL (0.55-1.30) Estimat Glomerular Filtration Rate > 60 mL/min (>60) Glucose Level 97 MG/DL (74-106) Calcium Level 8.1 MG/DL (8.5-10.1) L Intake and Output 03/20/20 03/21/20 19:00 07:00 Intake Total 6965.0 ml 1055.0 ml Output Total 31298 ml 1600 ml Balance -5035.0 ml -545.0 ml Intake Oral 300 ml 170 ml IV Total 765.0 ml 885.0 ml Other 5900 ml Output Urine Total 30378 ml 1600 ml Objective PHYSICAL EXAMINATION: GENERAL: The patient is a well-developed and well-nourished male, in no apparent distress. HEENT: Eyes, pupils are equal and responsive to light and accommodation. Extraocular movements are intact. NECK: Supple without lymphadenopathy. CHEST: Lungs are clear to auscultation bilaterally without wheezes or rales. CARDIOVASCULAR: Regular rhythm and rate. S1, S2 are normal without murmurs, rubs, or gallops. ABDOMEN: Soft, nontender, and nondistended. Positive bowel sounds. No evidence of hepatosplenomegaly. Currently, no rebound or guarding noted. EXTREMITIES: Negative for clubbing, cyanosis, or edema. RECTAL/GENITAL: Not performed. NEUROLOGIC: Cranial nerves II through XII are grossly intact without focal deficits. Motor strength is 5/5 bilaterally. Deep tendon reflexes are 2+ plantar. Assessment/Plan Assessment/Plan ASSESSMENT: This is an 84-year-old male. 1. Chest pain. 2. Elevated troponin level. 3. Bladder cancer. 4. Gastritis. 5. Hypertension. 6. Diabetes type 2. 7. Atrioventricular conduction defect. 8. Alzheimer's dementia. 9. Cerebrovascular disease. 10. Right hemiplegia. 11. Pacemaker in situ. 12. Urinary tract infection=ESBL E. Coli 13. Persistant leukocytosis due to UTI-resolving 14. Hematuria 15. severe anemia TREATMENT: 1. Chest pain/elevated troponin. A Cardiology consultation has been obtained with Dr. Nj Valenzuela. We will follow recommendations of Cardiology. 2. Bladder cancer. CT=bladder mass increased in size from prior. Urology= Dr. Macho Allen. The patient is status post transurethral resection of bladder tumor x2. We will follow recommendations of Urology. 3. Gastritis. Continue Protonix as above. 4. Hypertension. 5. Diabetes type 2. A NovoLog sliding scale has been instituted. 6. Atrioventricular conduction defect. The patient is status post pacemaker implantation. 7. Alzheimer's dementia. 8. Cerebrovascular disease, status post cerebrovascular accident. 9. Right hemiplegia. 10. ABX=S/P meropenem; continue zosyn and vanco per ID=Dr Darby 11. Bladder irrigation per urology 12. S/P trransfusion 3 units PRBC 13. Spoke to sonJamir agreed to cystoscopy on Thu03/23/20 Jean-Claude Peter MD Mar 21, 2020 11:43
[2020-03-21 12:00] VITALS: BP 120/63
--- NOTE | 2020-03-21 12:10 | NUR ---
ST NOTE SWALLOW STATUS Pt being seen for dysphagia management and tx. Current diet is mechanical soft chopped with nectar thick liquids. Per RN, no overt aspiration signs or symptoms noted while assisting Pt with breakfast meal. Pt's diet at prior living environment was mechanical soft with thin liquids, therefore, PO trials of thin liquids completed. Pt completed thin liquids via teaspoon and cup sip in various quantities without aspiration signs or symptoms, vocal quality remained clear. Pt educated on thickened liquids, purpose, and discussion regarding thick versus thin liquids and aspiration. Pt specifically states no difficulty swallowing thin liquids or nectar thick liquids, however, requesting nectar thick liquids due to aspiration risk with thin liquids and nectar thick liquids being slightly easier to swallow. Pt educated on PRODUCT SAFETY HEAD POC, and RN made aware of results and recommendations. Of note, Pt's presenting with poor oral hygiene, white debris deposited on blade of tongue characterized by thrush. RECOMMENDATIONS: 1. Continue mechanical soft with nectar thick liquids +RD recs via 1 to 1 careful handfeeding with all PO. 2. Meds crushed with puree. 3. Implement all aspiration precautions per sign at [facility], monitor for SOB during PO; Stop PO during instances of SOB and wait till breathing stabilizes. PRODUCT SAFETY HEAD will continue to f/u
--- NOTE | 2020-03-21 13:11 | Pulmonology Progress Note ---
Subjective ROS Limited/Unobtainable: No Interval Events: c/o dry sking Constitutional: Reports: no symptoms HEENT: Repors: no symptoms Respiratory: Reports: no symptoms Allergies: Coded Allergies: No Known Allergies (Unverified , 04/09/16) Objective Last 24 Hour Vital Signs Date Time Temp Pulse Resp B/P (MAP) Pulse Ox O2 Delivery O2 Flow Rate FiO2 03/21/20 09:00 Room Air 03/21/20 08:15 76 118/53 03/21/20 08:00 97.9 76 20 118/53 (74) 99 03/21/20 04:00 97.7 73 19 112/53 (72) 98 03/21/20 00:00 98.0 62 19 122/58 (79) 96 03/20/20 21:03 97 Room Air 21 03/20/20 21:03 76 18 100 Room Air 21 71 16 97 03/20/20 21:00 Room Air 03/20/20 20:00 98.7 60 19 110/51 (70) 98 03/20/20 17:23 63 112/50 03/20/20 16:07 98.1 63 18 112/50 (70) 99 Intake and Output 03/20/20 03/21/20 19:00 07:00 Intake Total 6965.0 ml 1055.0 ml Output Total 32405 ml 1600 ml Balance -5035.0 ml -545.0 ml Intake Oral 300 ml 170 ml IV Total 765.0 ml 885.0 ml Other 5900 ml Output Urine Total 37372 ml 1600 ml General Appearance: cachetic HEENT: normocephalic, atraumatic Respiratory: chest wall non-tender, lungs clear, normal breath sounds, no respiratory distress Cardiovascular: normal peripheral pulses, normal rate, regular rhythm Abdomen: normal bowel sounds, soft, non tender, no organomegaly Genitourinary: normal external genitalia Extremities: no clubbing Skin: no rash 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 Lymphatic: no neck adenopathy Laboratory Tests 03/20/20 16:22: POC Whole Blood Glucose [Pending] 03/21/20 06:30: White Blood Count 20.7H, Red Blood Count 3.10L, Hemoglobin 7.9L, Hematocrit 24.9L, Mean Corpuscular Volume 80, Mean Corpuscular Hemoglobin 25.4L, Mean Corpuscular Hemoglobin Concent 31.7L, Red Cell Distribution Width 16.9H, Platelet Count 243, Mean Platelet Volume 6.0L, Neutrophils (%) (Auto) , Lymphocytes (%) (Auto) , Monocytes (%) (Auto) , Eosinophils (%) (Auto) , Basophils (%) (Auto) , Differential Total Cells Counted 100, Neutrophils % ( Manual) 87H, Lymphocytes % (Manual) 5L, Monocytes % (Manual) 6, Eosinophils % ( Manual) 1, Basophils % (Manual) 1, Band Neutrophils 0, Platelet Estimate Adequate, Platelet Morphology Normal, Anisocytosis 1+, Sodium Level 137, Potassium Level 4.0, Chloride Level 107, Carbon Dioxide Level 25, Anion Gap 5, Blood Urea Nitrogen 7, Creatinine 1.1, Estimat Glomerular Filtration Rate > 60, Glucose Level 97, Calcium Level 8.1L Current Medications Medications (Trade) Dose Ordered Sig/Levi Route PRN Reason Start Time Stop Time Status Last Admin Dose Admin Acetaminophen (Tylenol) 650 mg Q4H PRN ORAL fever (T>100.5F) 03/18/20 16:45 04/09/20 04:44 Albuterol/ Ipratropium (Albuterol/ Ipratropium) 3 ml Q4HRT PRN HHN Shortness of Breath 03/18/20 19:00 03/23/20 09:59 03/20/20 21:02 Atorvastatin Calcium (Lipitor) 20 mg BEDTIME ORAL 03/18/20 21:00 06/09/20 20:59 03/20/20 20:46 Dextrose (Dextrose 50%) 25 ml Q30M PRN IV Hypoglycemia 03/18/20 16:30 06/11/20 04:59 Dextrose (Dextrose 50%) 50 ml Q30M PRN IV Hypoglycemia 03/18/20 16:30 06/08/20 14:29 Finasteride (Proscar) 5 mg DAILY ORAL 03/19/20 09:00 06/09/20 08:59 03/21/20 08:16 Insulin Aspart (NovoLOG) No Dose BEFORE MEALS AND HS SUBQ 03/18/20 16:30 06/15/20 06:29 03/19/20 16:39 Lidocaine HCl (Xylocaine Jelly 2%) 1 applic DAILYPRN PRN TOPIC for pain in penile region 03/18/20 16:30 11/7/20 16:29 Metoprolol Tartrate (Lopressor) 12.5 mg BID ORAL 03/18/20 18:00 06/08/20 21:59 03/21/20 08:15 Nateglinide (Starlix) 120 mg DAILY ORAL 03/19/20 09:00 04/10/20 08:59 03/21/20 08:15 Nitroglycerin (Ntg) 0.4 mg Q5M PRN SL Prn Chest Pain 03/18/20 16:30 04/09/20 14:29 Ondansetron HCl (Zofran) 4 mg Q6H PRN IVP Nausea & Vomiting 03/18/20 16:45 04/09/20 04:44 Piperacillin Sod/ Tazobactam Sod 3.375 gm/Sodium Chloride 110 ml @ 27.5 mls/hr EVERY 8 HOURS IVPB 03/18/20 22:00 03/23/20 21:59 03/21/20 05:20 Polyethylene Glycol (Miralax) 17 gm DAILYPRN PRN ORAL Constipation 03/18/20 16:31 04/17/20 16:30 Sodium Chloride 1,000 ml @ 100 mls/hr Q10H IVLG 03/18/20 16:30 04/09/20 16:14 03/20/20 23:21 Tamsulosin HCl (Flomax) 0.4 mg BEDTIME ORAL 03/18/20 21:00 04/09/20 20:59 03/20/20 20:46 Assessment/Plan Problems: (1) Sepsis (2) Urethral fistula (3) UTI (urinary tract infection) (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
--- NOTE | 2020-03-21 15:55 | NUR ---
CASE MANAGEMENT:REVIEW SI;N-STEMI. SEPSIS. UTI. MDRO. 98.0 77 20 122/58 96% ON RA WBC 20.7 H/H 7.9/24.9 CA 8.1 IS;ZOSYN IV Q8 IVF NS @ 100 ML/HR STARLIX PO WD FLOMAX PO HS LIPITOR PO HS DUO NEB HHN LOPRESSOR PO BID PROSCAR PO QD MED SURG STATUS DCP;FROM [facility]
[2020-03-21 16:00] VITALS: BP 126/70
--- NOTE | 2020-03-21 18:34 | NUR ---
NURSE NOTES: Jamir Boyd, patient's son called and made aware of patient's blood transfusion.
--- NOTE | 2020-03-21 19:25 | NUR ---
NURSE NOTES: received report from husam jackson. patient is on bed, awake and verbally responsive. on room air. no sob. with iv line on left wrist and right forearm running running ns @ 100ml. with [address] way hernandez catheter connected to urine bag. with ongoing CBI. pink lemonade in color, no clots noted. draining well. per manuel" hgb of 7.9; patient is s/p 1 bag of blood transfusion and needs to infuse 1 bag left". reiterated to call and ask for assistance. call light and light button within easy reach. bed locked and in lowest position. will continue plan of care.
--- NOTE | 2020-03-21 19:36 | NUR ---
NURSE HAND-OFF: Important Events on Shift:[CBI, blood transfusion, safety and comfort] Patient Status: [stable] Pending Orders: [n/a] Pending Results/Labs:[n/a] Pending MD notification:[n/a] Latest Vital Signs: Temperature 98.7 , Pulse 66 , B/P 133 /68 , Respiratory Rate 18 , O2 SAT 98 , Room Air, O2 Flow Rate . Vital Sign Comment: [] Latest Damon Fall Score: 55 Fall Risk: High Risk Safety Measures: Call light Within Reach, Bed Alarm , Side Rails Side Rails x2, Bed position Low and Locked. Fall Precautions: Yellow Socks Yellow Gown Door Sign Patient Fall Education Report given to [DONELL Greco].
[2020-03-21 20:00] VITALS: BP 137/72
[2020-03-21] MEDS: Tamsulosin 0.4mg cap ORAL SCH (20:18)
[2020-03-21] MEDS: Atorvastatin 20mg tab ORAL SCH (20:18)
--- NOTE | 2020-03-21 20:35 | NUR ---
NURSE NOTES: 1 BAG left for blood transfusion. hanged the last bag with co-rn. charge nurse made aware. vitals of 137/72 mmhg, 61 bpm, 97.3F.
--- NOTE | 2020-03-21 23:50 | NUR ---
NURSE NOTES: blood transfusion done. no complaints of pain, difficulty of breathing, fever and chills. vitals of 132/62, 68, 97.8F. charge nurse made aware.
[2020-03-22] VITALS: BP 132/62
[2020-03-22 04:00] VITALS: BP 139/66
[2020-03-22] MEDS: Piperacillin/Tazobactam 3.375 GM in NS 110 ML IVPB SCH ×3 (05:13→21:57)
[2020-03-22] MEDS: NovoLOG Insulin Flexpen SUBQ SCH ×4 (05:20→21:00)
--- NOTE | 2020-03-22 06:33 | NUR ---
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 Vital Sign Comment: BLOOD SUGAR OF 89 Latest Damon Fall Score: 50 Fall Risk: High Risk Safety Measures: Call light Within Reach, Bed Alarm Zone 1, Side Rails Side Rails x3, Bed position Low and Locked. Fall Precautions: Yellow Socks Yellow Gown Door Sign Patient Fall Education Addendum: 03/22/20 at 0726 by Marlyn Torrez RN HAND-OFF: Report given to husam jackson.
[2020-03-22 08:00] VITALS: BP 130/67
--- NOTE | 2020-03-22 08:13 | Infectious Diseases Prog Note ---
Assessment/Plan 84yo M with bladder cancer who p/w chest pain, found to have elevated troponin and leukocytosis. Afebrile Sepsis Leukocytosis, overall improved but remains elevated - no abscess on CT L hydronephrosis, stent in place 03/14 CT abd/p: Mass within the bladder increased in size since previous examination. Presumably this represents bladder neoplasm. Air is also noted within the bladder and the possibility of bladder infection or internal fistula to the bladder should be considered. Left hydronephrosis and with air in the left renal collecting system. There is a left ureteral stent. The air likely is coming from the bladder but the possibility of infection again is not excluded. Atherosclerotic change. Degenerative change in the spine.Cholelithiasis. Bilateral pleural effusions, right greater than left.Subcutaneous edema consistent with mild anasarca. 03/17 BCx NTD 03/18 UCx NTD 03/20 Renal US w/ persistent L hydro UTI/pyelonephritis, UA with tnct WBC, UCx >100k ESBL E.coli on 03/10 Rapid COVID neg x1 03/13 CXR: Some crowding of markings remain inthe lung bases likely related to a limited inspiration and low lung volumes. No new alveolar process. R/o bacteremia 03/11 BCx NTD 03/10 BCx NTD NSTEMI w/ elevated troponin, can also be a cause of reactive leukocytosis Bladder cancer Hematuria On CBI per Urology Plan: Cont Zosyn #4/5-7 empiric given leukocytosis, improving, consider 2/2 CBI and bladder CA/bleeding given ongoing leukocytosis despite abx and pt has been AF and HDS Trend WBC daily 03/21 SP vanco #2 03/18 SP latoya #7 for ESBL UTI/pyelo 03/12 SP vanco #2, cefepime #2 Trend resp status Trend leukocytosis daily Monitor CBC, CMP D/w RN Thank you for this consult. [facility] will continue to follow. Subjective Allergies: Coded Allergies: No Known Allergies (Unverified , 04/09/16) AF NAD Doing well, no issues Ongoing hematuria Objective Last 24 Hour Vital Signs Date Time Temp Pulse Resp B/P (MAP) Pulse Ox O2 Delivery O2 Flow Rate FiO2 03/22/20 07:23 96 Room Air 21 03/22/20 07:23 60 16 96 Room Air 21 03/22/20 04:00 97.8 60 19 139/66 (90) 98 03/22/20 00:00 97.8 65 19 132/62 (85) 97 03/21/20 21:00 Room Air 03/21/20 20:00 97.3 61 19 137/72 (93) 98 03/21/20 17:40 73 126/70 03/21/20 16:00 97.7 73 19 126/70 (88) 98 03/21/20 12:00 97.8 77 19 120/63 (82) 97 03/21/20 09:00 Room Air 03/21/20 08:15 76 118/53 Height (Feet): 5 Height (Inches): 9.00 Weight (Pounds): 186 Gen: Older man, laying in bed, NAD Pulm: Breathing comfortably on RA Abd; Soft, NTND Neuro: Awake, interactive Laboratory Tests Test 03/21/20 11:27 03/21/20 16:56 POC Whole Blood Glucose 97 MG/DL (74-106) 95 MG/DL (74-106) Current Medications Medications (Trade) Dose Ordered Sig/Levi Route PRN Reason Start Time Stop Time Status Last Admin Dose Admin Acetaminophen (Tylenol) 650 mg Q4H PRN ORAL fever (T>100.5F) 03/18/20 16:45 04/09/20 04:44 Albuterol/ Ipratropium (Albuterol/ Ipratropium) 3 ml Q4HRT PRN HHN Shortness of Breath 03/18/20 19:00 03/23/20 09:59 03/20/20 21:02 Atorvastatin Calcium (Lipitor) 20 mg BEDTIME ORAL 03/18/20 21:00 06/09/20 20:59 03/21/20 20:18 Dextrose (Dextrose 50%) 25 ml Q30M PRN IV Hypoglycemia 03/18/20 16:30 06/11/20 04:59 Dextrose (Dextrose 50%) 50 ml Q30M PRN IV Hypoglycemia 03/18/20 16:30 06/08/20 14:29 Finasteride (Proscar) 5 mg DAILY ORAL 03/19/20 09:00 06/09/20 08:59 03/21/20 08:16 Insulin Aspart (NovoLOG) No Dose BEFORE MEALS AND HS SUBQ 03/18/20 16:30 06/15/20 06:29 03/19/20 16:39 Lidocaine HCl (Xylocaine Jelly 2%) 1 applic DAILYPRN PRN TOPIC for pain in penile region 03/18/20 16:30 06/16/20 16:29 Metoprolol Tartrate (Lopressor) 12.5 mg BID ORAL 03/18/20 18:00 06/08/20 21:59 03/21/20 17:40 Nateglinide (Starlix) 120 mg DAILY ORAL 03/19/20 09:00 04/10/20 08:59 03/21/20 08:15 Nitroglycerin (Ntg) 0.4 mg Q5M PRN SL Prn Chest Pain 03/18/20 16:30 04/09/20 14:29 Ondansetron HCl (Zofran) 4 mg Q6H PRN IVP Nausea & Vomiting 03/18/20 16:45 04/09/20 04:44 Piperacillin Sod/ Tazobactam Sod 3.375 gm/Sodium Chloride 110 ml @ 27.5 mls/hr EVERY 8 HOURS IVPB 03/18/20 22:00 03/23/20 21:59 03/22/20 05:13 Polyethylene Glycol (Miralax) 17 gm DAILYPRN PRN ORAL Constipation 03/18/20 16:31 04/17/20 16:30 Sodium Chloride 1,000 ml @ 100 mls/hr Q10H IVLG 03/18/20 16:30 04/09/20 16:14 03/22/20 00:50 Tamsulosin HCl (Flomax) 0.4 mg BEDTIME ORAL 03/18/20 21:00 04/09/20 20:59 03/21/20 20:18 Carlie Callaway M.D. Mar 22, 2020 08:13
[2020-03-22] MEDS: Metoprolol Tartrate 12.5mg TAB ORAL SCH ×2 (08:21→17:05)
--- NOTE | 2020-03-22 09:32 | Urology Progress Note ---
Assessment/Plan Assessment/Plan: 1. Gross hematuria. 2. Bladder cancer history with enlarging bladder mass. 3. Left-sided hydro, which is chronic. 4. BPH history. 5. Urinary retention. 6. UTI. 7. Proteinuria. 8. Neurogenic bladder. maintain hernandez, 3-way placed 03/15 CBI, titrate rate to keep clear hernandez hand irrigated and do PRN occasional small clots noted abx as ordered monitor h/h, wbc blood transfusion PRN off ASA since 03/13 flomax and proscar plan cysto, family agreeable med/onc f/u f/u on last blood cx d/w nursing staff d/w primary service d/w pt's son Subjective Allergies: Coded Allergies: No Known Allergies (Unverified , 04/09/16) Subjective all noted, comfortable CBI running transfused yest Objective Last 24 Hour Vital Signs Date Time Temp Pulse Resp B/P (MAP) Pulse Ox O2 Delivery O2 Flow Rate FiO2 03/22/20 09:00 Room Air 03/22/20 08:21 60 130/67 03/22/20 08:00 97.2 60 18 130/67 (88) 100 03/22/20 07:23 96 Room Air 21 03/22/20 07:23 60 16 96 Room Air 21 03/22/20 04:00 97.8 60 19 139/66 (90) 98 03/22/20 00:00 97.8 65 19 132/62 (85) 97 03/21/20 21:00 Room Air 03/21/20 20:00 97.3 61 19 137/72 (93) 98 03/21/20 17:40 73 126/70 03/21/20 16:00 97.7 73 19 126/70 (88) 98 03/21/20 12:00 97.8 77 19 120/63 (82) 97 Intake and Output 03/21/20 03/22/20 19:00 07:00 Intake Total 627.5 ml 205.0 ml Output Total 1000 ml 1450 ml Balance -372.5 ml -1245.0 ml Intake Oral 150 ml IV Total 627.5 ml 55.0 ml Output Urine Total 1000 ml 1450 ml Microbiology Date/Time Source Procedure Growth Status 03/17/20 19:00 Blood Blood Culture - Preliminary NO GROWTH AFTER 4 DAYS Resulted 03/12/20 06:05 Nasal Nares MRSA Culture - Final NO METHICILLIN RESISTANT STAPH AUREUS... Complete 03/18/20 09:15 Indwelling Cath Urine Culture - Final NO GROWTH AFTER 48 HOURS Complete 03/12/20 04:00 Rectum VRE Culture - Final Enterococcus Faecalis - Vre Complete Current Medications Medications (Trade) Dose Ordered Sig/Levi Route PRN Reason Start Time Stop Time Status Last Admin Dose Admin Acetaminophen (Tylenol) 650 mg Q4H PRN ORAL fever (T>100.5F) 03/18/20 16:45 04/09/20 04:44 Albuterol/ Ipratropium (Albuterol/ Ipratropium) 3 ml Q4HRT PRN HHN Shortness of Breath 03/18/20 19:00 03/23/20 09:59 03/20/20 21:02 Atorvastatin Calcium (Lipitor) 20 mg BEDTIME ORAL 03/18/20 21:00 06/09/20 20:59 03/21/20 20:18 Dextrose (Dextrose 50%) 25 ml Q30M PRN IV Hypoglycemia 03/18/20 16:30 06/11/20 04:59 Dextrose (Dextrose 50%) 50 ml Q30M PRN IV Hypoglycemia 03/18/20 16:30 06/08/20 14:29 Finasteride (Proscar) 5 mg DAILY ORAL 03/19/20 09:00 06/09/20 08:59 03/22/20 08:21 Insulin Aspart (NovoLOG) No Dose BEFORE MEALS AND HS SUBQ 03/18/20 16:30 06/15/20 06:29 03/19/20 16:39 Lidocaine HCl (Xylocaine Jelly 2%) 1 applic DAILYPRN PRN TOPIC for pain in penile region 03/18/20 16:30 06/16/20 16:29 Metoprolol Tartrate (Lopressor) 12.5 mg BID ORAL 03/18/20 18:00 06/08/20 21:59 03/22/20 08:21 Nateglinide (Starlix) 120 mg DAILY ORAL 03/19/20 09:00 04/10/20 08:59 03/22/20 08:21 Nitroglycerin (Ntg) 0.4 mg Q5M PRN SL Prn Chest Pain 03/18/20 16:30 04/09/20 14:29 Ondansetron HCl (Zofran) 4 mg Q6H PRN IVP Nausea & Vomiting 03/18/20 16:45 04/09/20 04:44 Piperacillin Sod/ Tazobactam Sod 3.375 gm/Sodium Chloride 110 ml @ 27.5 mls/hr EVERY 8 HOURS IVPB 03/18/20 22:00 03/23/20 21:59 03/22/20 05:13 Polyethylene Glycol (Miralax) 17 gm DAILYPRN PRN ORAL Constipation 03/18/20 16:31 04/17/20 16:30 Sodium Chloride 1,000 ml @ 100 mls/hr Q10H IVLG 03/18/20 16:30 04/09/20 16:14 03/22/20 00:50 Tamsulosin HCl (Flomax) 0.4 mg BEDTIME ORAL 03/18/20 21:00 04/09/20 20:59 03/21/20 20:18 Laboratory Tests 03/21/20 11:27: POC Whole Blood Glucose 97 03/21/20 16:56: POC Whole Blood Glucose 95 Height (Feet): 5 Height (Inches): 9.00 Weight (Pounds): 186 Objective exam stable hernandez indwelling, CBI mild-moderate rate urine blood-tinged renal u/s (03/20) noted Macho Allen MD Mar 22, 2020 09:32
[2020-03-22 10:33] LABS: HEMATOCRIT 35.6 % (42.0-52.0); HEMOGLOBIN 11.5 G/DL (14.2-18.0); MEAN CORPUSCULAR VOLUME 81 FL (80-99); PLATELET COUNT 238 K/UL (150-450); RED BLOOD COUNT 4.38 M/UL (4.70-6.10); RED CELL DISTRIBUTION WIDTH 16.1 % (11.6-14.8); WHITE BLOOD COUNT 24.5 K/UL (4.8-10.8)
[2020-03-22 10:44] LABS: ANION GAP 9 mmol/L (5-15); BLOOD UREA NITROGEN 7 mg/dL (7-18); CALCIUM 8.5 MG/DL (8.5-10.1); CARBON DIOXIDE 22 MMOL/L (21-32); CHLORIDE 106 MMOL/L (98-107); CREATININE 0.9 MG/DL (0.55-1.30); POTASSIUM 4.1 MMOL/L (3.5-5.1); SODIUM 137 MMOL/L (136-145)
[2020-03-22 12:00] VITALS: BP 138/66
--- NOTE | 2020-03-22 12:11 | Pulmonology Progress Note ---
Subjective ROS Limited/Unobtainable: No Interval Events: c/o dry sking Constitutional: Reports: no symptoms HEENT: Repors: no symptoms Respiratory: Reports: no symptoms Allergies: Coded Allergies: No Known Allergies (Unverified , 04/09/16) Objective Last 24 Hour Vital Signs Date Time Temp Pulse Resp B/P (MAP) Pulse Ox O2 Delivery O2 Flow Rate FiO2 03/22/20 09:00 Room Air 03/22/20 08:21 60 130/67 03/22/20 08:00 97.2 60 18 130/67 (88) 100 03/22/20 07:23 96 Room Air 21 03/22/20 07:23 60 16 96 Room Air 21 03/22/20 04:00 97.8 60 19 139/66 (90) 98 03/22/20 00:00 97.8 65 19 132/62 (85) 97 03/21/20 21:00 Room Air 03/21/20 20:00 97.3 61 19 137/72 (93) 98 03/21/20 17:40 73 126/70 03/21/20 16:00 97.7 73 19 126/70 (88) 98 Intake and Output 03/21/20 03/22/20 19:00 07:00 Intake Total 627.5 ml 205.0 ml Output Total 1000 ml 1450 ml Balance -372.5 ml -1245.0 ml Intake Oral 150 ml IV Total 627.5 ml 55.0 ml Output Urine Total 1000 ml 1450 ml General Appearance: cachetic HEENT: normocephalic, atraumatic Respiratory: chest wall non-tender, lungs clear, normal breath sounds, no respiratory distress Cardiovascular: normal peripheral pulses, normal rate, regular rhythm Abdomen: normal bowel sounds, soft, non tender, no organomegaly Genitourinary: normal external genitalia Extremities: no clubbing Skin: no rash 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 Lymphatic: no neck adenopathy Laboratory Tests 03/21/20 16:56: POC Whole Blood Glucose 95 03/22/20 10:00: White Blood Count 24.5*H, Red Blood Count 4.38L, Hemoglobin 11.5#L, Hematocrit 35.6#L, Mean Corpuscular Volume 81, Mean Corpuscular Hemoglobin 26.2L, Mean Corpuscular Hemoglobin Concent 32.2, Red Cell Distribution Width 16.1H, Platelet Count 238, Mean Platelet Volume 5.9L, Neutrophils (%) (Auto) , Lymphocytes (%) (Auto) , Monocytes (%) (Auto) , Eosinophils (%) (Auto) , Basophils (%) (Auto) , Differential Total Cells Counted 100, Neutrophils % ( Manual) 92H, Lymphocytes % (Manual) 5L, Monocytes % (Manual) 3, Eosinophils % ( Manual) 0, Basophils % (Manual) 0, Band Neutrophils 0, Platelet Estimate Adequate, Platelet Morphology Normal, Anisocytosis 1+, Sodium Level 137, Potassium Level 4.1, Chloride Level 106, Carbon Dioxide Level 22, Anion Gap 9, Blood Urea Nitrogen 7, Creatinine 0.9, Estimat Glomerular Filtration Rate > 60, Glucose Level 91, Calcium Level 8.5 Current Medications Medications (Trade) Dose Ordered Sig/Levi Route PRN Reason Start Time Stop Time Status Last Admin Dose Admin Acetaminophen (Tylenol) 650 mg Q4H PRN ORAL fever (T>100.5F) 03/18/20 16:45 04/09/20 04:44 Albuterol/ Ipratropium (Albuterol/ Ipratropium) 3 ml Q4HRT PRN HHN Shortness of Breath 03/18/20 19:00 03/23/20 09:59 03/20/20 21:02 Atorvastatin Calcium (Lipitor) 20 mg BEDTIME ORAL 03/18/20 21:00 06/09/20 20:59 03/21/20 20:18 Dextrose (Dextrose 50%) 25 ml Q30M PRN IV Hypoglycemia 03/18/20 16:30 06/11/20 04:59 Dextrose (Dextrose 50%) 50 ml Q30M PRN IV Hypoglycemia 03/18/20 16:30 06/08/20 14:29 Finasteride (Proscar) 5 mg DAILY ORAL 03/19/20 09:00 06/09/20 08:59 03/22/20 08:21 Insulin Aspart (NovoLOG) No Dose BEFORE MEALS AND HS SUBQ 03/18/20 16:30 06/15/20 06:29 03/19/20 16:39 Lidocaine HCl (Xylocaine Jelly 2%) 1 applic DAILYPRN PRN TOPIC for pain in penile region 03/18/20 16:30 06/16/20 16:29 Metoprolol Tartrate (Lopressor) 12.5 mg BID ORAL 03/18/20 18:00 06/08/20 21:59 03/22/20 08:21 Nateglinide (Starlix) 120 mg DAILY ORAL 03/19/20 09:00 04/10/20 08:59 03/22/20 08:21 Nitroglycerin (Ntg) 0.4 mg Q5M PRN SL Prn Chest Pain 03/18/20 16:30 04/09/20 14:29 Ondansetron HCl (Zofran) 4 mg Q6H PRN IVP Nausea & Vomiting 03/18/20 16:45 04/09/20 04:44 Piperacillin Sod/ Tazobactam Sod 3.375 gm/Sodium Chloride 110 ml @ 27.5 mls/hr EVERY 8 HOURS IVPB 03/18/20 22:00 03/25/20 23:59 03/22/20 05:13 Polyethylene Glycol (Miralax) 17 gm DAILYPRN PRN ORAL Constipation 03/18/20 16:31 04/17/20 16:30 Sodium Chloride 1,000 ml @ 100 mls/hr Q10H IVLG 03/18/20 16:30 04/09/20 16:14 03/22/20 09:54 Tamsulosin HCl (Flomax) 0.4 mg BEDTIME ORAL 03/18/20 21:00 04/09/20 20:59 03/21/20 20:18 Assessment/Plan Problems: (1) Sepsis (2) Urethral fistula (3) UTI (urinary tract infection) (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
--- NOTE | 2020-03-22 13:15 | NUR ---
Discharge planning : Patient referred back to [facility] rehab t: [phone] f:[phone] Patient has procedure for am w/ urology
--- NOTE | 2020-03-22 15:26 | NUR ---
SPEECH PATHOLOGY/DYSPHAGIA MANAGEMENT PATIENT CLEARED FOR ST INTERVENTION BY DONELL DILLARD. PATIENT HAD ITEMS ON HIS NOON TRAY THAT HE WAS WAITING TO EAT WITH ASSISTANCE HE WAS POSITIONED AT MIDLINE IN ORDER TO PARTICIPATE IN P.0. HE TOLERATED APROX 4 OZ OF HIS MEALTIME SUPPLEMENT. NO OVERT S/S OF ASPIRATION NOTED. CLEAR UPPER ARIWAYS SOUNDS PRE AND POST SWALLOW. THRUSH/WHITE COATING OBSERVED ON ENTIRE LINGUAL SURFACE. D/FINDINGS/RECOMMENDATIONS WITH DONELL DILLARD.. ST TO CONTINUE TO FOLLOW FOR COGNITIVE RETRAINING WELL SWALLOW SAFETY GUIDELINES
--- NOTE | 2020-03-22 15:44 | Anethesia Preoperative Eval ---
Anesthesia Pre-op PMH/ROS General Date of Evaluation: Mar 22, 2020 Time of Evaluation: 17:02 Anesthesiologist: Jim ASA Score: ASA 4 Mallampati Score Class I : Soft palate, uvula, fauces, pillars visible Class II: Soft palate, uvula, fauces visible Class III: Soft palate, base of uvula visible Class IV: Only hard plate visible Mallampati Classification: Class III Surgeon: Tiffany Diagnosis: UTI Surgical Procedure: TURBT Anesthesia History: none Family History: no anesthesia problems Allergies: Coded Allergies: No Known Allergies (Unverified , 04/09/16) Medications: see eMAR Patient NPO?: Yes Past Medical History Cardiovascular: Reports: HTN, CAD, [place] - NSTEMI, arrhythmia - Pacemaker Gastrointestinal/Genitourinary: Reports: GERD 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: Reports: dementia, other - Parkinsons, Seizures Endocrine: Reports: DM, hypothyroidism Hematology/Immune: Reports: anemia, other - Bladder CA Musculoskeletal/Integumentary: Reports: other - Weakness Anesthesia Pre-op Phys. Exam Physician Exam Last Vital Signs Date Time Temp Pulse Resp B/P (MAP) Pulse Ox O2 Delivery O2 Flow Rate FiO2 03/22/20 12:00 97.3 60 18 138/66 (90) 100 03/22/20 09:00 Room Air 03/22/20 07:23 21 03/18/20 10:24 2.0 Constitutional: NAD Neurologic: CN 2-12 intact Cardiovascular: RRR Respiratory: CTA Gastrointestinal: S/NT/ND Airway Exam Mallampati Score: Class III MO: limited ROM: limited Teeth: missing Anesthesia Pre-op A/P Labs Hematology Test 03/22/20 10:00 White Blood Count 24.5 K/UL (4.8-10.8) *H Red Blood Count 4.38 M/UL (4.70-6.10) L Hemoglobin 11.5 G/DL (14.2-18.0) #L Hematocrit 35.6 % (42.0-52.0) #L Mean Corpuscular Volume 81 FL (80-99) Mean Corpuscular Hemoglobin 26.2 PG (27.0-31.0) L Mean Corpuscular Hemoglobin Concent 32.2 G/DL (32.0-36.0) Red Cell Distribution Width 16.1 % (11.6-14.8) H Platelet Count 238 K/UL (150-450) Mean Platelet Volume 5.9 FL (6.5-10.1) L Neutrophils (%) (Auto) % (45.0-75.0) Lymphocytes (%) (Auto) % (20.0-45.0) Monocytes (%) (Auto) % (1.0-10.0) Eosinophils (%) (Auto) % (0.0-3.0) Basophils (%) (Auto) % (0.0-2.0) Differential Total Cells Counted 100 Neutrophils % (Manual) 92 % (45-75) H Lymphocytes % (Manual) 5 % (20-45) L Monocytes % (Manual) 3 % (1-10) Eosinophils % (Manual) 0 % (0-3) Basophils % (Manual) 0 % (0-2) Band Neutrophils 0 % (0-8) Platelet Estimate Adequate Platelet Morphology Normal Anisocytosis 1+ Chemistry Test 03/21/20 16:56 03/22/20 10:00 POC Whole Blood Glucose 95 MG/DL (74-106) Sodium Level 137 MMOL/L (136-145) Potassium Level 4.1 MMOL/L (3.5-5.1) Chloride Level 106 MMOL/L (98-107) Carbon Dioxide Level 22 MMOL/L (21-32) Anion Gap 9 mmol/L (5-15) Blood Urea Nitrogen 7 mg/dL (7-18) Creatinine 0.9 MG/DL (0.55-1.30) Estimat Glomerular Filtration Rate > 60 mL/min (>60) Glucose Level 91 MG/DL (74-106) Calcium Level 8.5 MG/DL (8.5-10.1) Risk Assessment & Plan Assessment: ASA 4 Plan: GA Status Change Before Surgery: No Pre-Antibiotics Drug: Adan Prince MD Mar 22, 2020 15:44
[2020-03-22 16:00] VITALS: BP 123/62
--- NOTE | 2020-03-22 16:49 | Internal Med Progress Note ---
Subjective Date of Service: Mar 22, 2020 Physician Name BrittaniJean-Claude Attending Physician Jaziel Lowe MD Current Medications Medications (Trade) Dose Ordered Sig/Levi Route PRN Reason Start Time Stop Time Status Last Admin Dose Admin Acetaminophen (Tylenol) 650 mg Q4H PRN ORAL fever (T>100.5F) 03/18/20 16:45 04/09/20 04:44 Albuterol/ Ipratropium (Albuterol/ Ipratropium) 3 ml Q4HRT PRN HHN Shortness of Breath 03/18/20 19:00 03/23/20 09:59 03/20/20 21:02 Atorvastatin Calcium (Lipitor) 20 mg BEDTIME ORAL 03/18/20 21:00 06/09/20 20:59 03/21/20 20:18 Dextrose (Dextrose 50%) 25 ml Q30M PRN IV Hypoglycemia 03/18/20 16:30 06/11/20 04:59 Dextrose (Dextrose 50%) 50 ml Q30M PRN IV Hypoglycemia 03/18/20 16:30 06/08/20 14:29 Finasteride (Proscar) 5 mg DAILY ORAL 03/19/20 09:00 06/09/20 08:59 03/22/20 08:21 Insulin Aspart (NovoLOG) No Dose BEFORE MEALS AND HS SUBQ 03/18/20 16:30 06/15/20 06:29 03/19/20 16:39 Lidocaine HCl (Xylocaine Jelly 2%) 1 applic DAILYPRN PRN TOPIC for pain in penile region 03/18/20 16:30 06/16/20 16:29 Metoprolol Tartrate (Lopressor) 12.5 mg BID ORAL 03/18/20 18:00 06/08/20 21:59 03/22/20 08:21 Nateglinide (Starlix) 120 mg DAILY ORAL 03/19/20 09:00 04/10/20 08:59 03/22/20 08:21 Nitroglycerin (Ntg) 0.4 mg Q5M PRN SL Prn Chest Pain 03/18/20 16:30 04/09/20 14:29 Ondansetron HCl (Zofran) 4 mg Q6H PRN IVP Nausea & Vomiting 03/18/20 16:45 04/09/20 04:44 Piperacillin Sod/ Tazobactam Sod 3.375 gm/Sodium Chloride 110 ml @ 27.5 mls/hr EVERY 8 HOURS IVPB 03/18/20 22:00 03/25/20 23:59 03/22/20 14:11 Polyethylene Glycol (Miralax) 17 gm DAILYPRN PRN ORAL Constipation 03/18/20 16:31 04/17/20 16:30 Sodium Chloride 1,000 ml @ 100 mls/hr Q10H IVLG 03/18/20 16:30 04/09/20 16:14 03/22/20 09:54 Tamsulosin HCl (Flomax) 0.4 mg BEDTIME ORAL 03/18/20 21:00 04/09/20 20:59 03/21/20 20:18 Allergies: Coded Allergies: No Known Allergies (Unverified , 04/09/16) ROS Limited/Unobtainable: No Constitutional: Reports: no symptoms HEENT: Reports: no symptoms Cardiovascular: Reports: no symptoms Respiratory: Reports: no symptoms Gastrointestinal/Abdominal: Reports: no symptoms Genitourinary: Reports: hematuria 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: Reports: no symptoms Subjective 84 YO M with a history of bladder cancer admitted with chest pain. Now severe anemia and hematuria. Cover for Int Uriel-DR Lowe. Objective Last Vital Signs Date Time Temp Pulse Resp B/P (MAP) Pulse Ox O2 Delivery O2 Flow Rate FiO2 03/22/20 12:00 97.3 60 18 138/66 (90) 100 03/22/20 09:00 Room Air 03/22/20 07:23 21 03/18/20 10:24 2.0 Laboratory Tests Test 03/21/20 16:56 03/22/20 10:00 POC Whole Blood Glucose 95 MG/DL (74-106) White Blood Count 24.5 K/UL (4.8-10.8) *H Red Blood Count 4.38 M/UL (4.70-6.10) L Hemoglobin 11.5 G/DL (14.2-18.0) #L Hematocrit 35.6 % (42.0-52.0) #L Mean Corpuscular Volume 81 FL (80-99) Mean Corpuscular Hemoglobin 26.2 PG (27.0-31.0) L Mean Corpuscular Hemoglobin Concent 32.2 G/DL (32.0-36.0) Red Cell Distribution Width 16.1 % (11.6-14.8) H Platelet Count 238 K/UL (150-450) Mean Platelet Volume 5.9 FL (6.5-10.1) L Neutrophils (%) (Auto) % (45.0-75.0) Lymphocytes (%) (Auto) % (20.0-45.0) Monocytes (%) (Auto) % (1.0-10.0) Eosinophils (%) (Auto) % (0.0-3.0) Basophils (%) (Auto) % (0.0-2.0) Differential Total Cells Counted 100 Neutrophils % (Manual) 92 % (45-75) H Lymphocytes % (Manual) 5 % (20-45) L Monocytes % (Manual) 3 % (1-10) Eosinophils % (Manual) 0 % (0-3) Basophils % (Manual) 0 % (0-2) Band Neutrophils 0 % (0-8) Platelet Estimate Adequate Platelet Morphology Normal Anisocytosis 1+ Sodium Level 137 MMOL/L (136-145) Potassium Level 4.1 MMOL/L (3.5-5.1) Chloride Level 106 MMOL/L (98-107) Carbon Dioxide Level 22 MMOL/L (21-32) Anion Gap 9 mmol/L (5-15) Blood Urea Nitrogen 7 mg/dL (7-18) Creatinine 0.9 MG/DL (0.55-1.30) Estimat Glomerular Filtration Rate > 60 mL/min (>60) Glucose Level 91 MG/DL (74-106) Calcium Level 8.5 MG/DL (8.5-10.1) Intake and Output 03/21/20 03/22/20 19:00 07:00 Intake Total 627.5 ml 205.0 ml Output Total 1000 ml 1450 ml Balance -372.5 ml -1245.0 ml Intake Oral 150 ml IV Total 627.5 ml 55.0 ml Output Urine Total 1000 ml 1450 ml Objective PHYSICAL EXAMINATION: GENERAL: The patient is a well-developed and well-nourished male, in no apparent distress. HEENT: Eyes, pupils are equal and responsive to light and accommodation. Extraocular movements are intact. NECK: Supple without lymphadenopathy. CHEST: Lungs are clear to auscultation bilaterally without wheezes or rales. CARDIOVASCULAR: Regular rhythm and rate. S1, S2 are normal without murmurs, rubs, or gallops. ABDOMEN: Soft, nontender, and nondistended. Positive bowel sounds. No evidence of hepatosplenomegaly. Currently, no rebound or guarding noted. EXTREMITIES: Negative for clubbing, cyanosis, or edema. RECTAL/GENITAL: Not performed. NEUROLOGIC: Cranial nerves II through XII are grossly intact without focal deficits. Motor strength is 5/5 bilaterally. Deep tendon reflexes are 2+ plantar. Assessment/Plan Assessment/Plan ASSESSMENT: This is an 84-year-old male. 1. Chest pain. 2. Elevated troponin level. 3. Bladder cancer. 4. Gastritis. 5. Hypertension. 6. Diabetes type 2. 7. Atrioventricular conduction defect. 8. Alzheimer's dementia. 9. Cerebrovascular disease. 10. Right hemiplegia. 11. Pacemaker in situ. 12. Urinary tract infection=ESBL E. Coli 13. Persistant leukocytosis due to UTI-resolving 14. Hematuria 15. severe anemia TREATMENT: 1. Chest pain/elevated troponin. A Cardiology consultation has been obtained with Dr. Nj Valenzuela. We will follow recommendations of Cardiology. 2. Bladder cancer. CT=bladder mass increased in size from prior. Urology= Dr. Macho Allen. The patient is status post transurethral resection of bladder tumor x2. We will follow recommendations of Urology. 3. Gastritis. Continue Protonix as above. 4. Hypertension. 5. Diabetes type 2. A NovoLog sliding scale has been instituted. 6. Atrioventricular conduction defect. The patient is status post pacemaker implantation. 7. Alzheimer's dementia. 8. Cerebrovascular disease, status post cerebrovascular accident. 9. Right hemiplegia. 10. ABX=S/P meropenem; continue zosyn and vanco per ID=Dr Darby 11. Bladder irrigation per urology 12. S/P trransfusion 5 units PRBC 13. Spoke to sonJamir agreed to cystoscopy on Thu03/23/20 by urology=Jean-Claude Hallman MD Mar 22, 2020 16:49
--- NOTE | 2020-03-22 19:22 | NUR ---
NURSE HAND-OFF: Important Events on Shift:[CBI on going, consent given by son for am procedure, Hgb increased after BT on 03/21/20] Patient Status: [stable] Diet: [CCHO soft easy chew with NTL] Pending Orders: [n/a] Pending Results/Labs:[n/a] Pending MD notification:[n/a] Latest Vital Signs: Temperature 97.5 , Pulse 60 , B/P 123 /62 , Respiratory Rate 18 , O2 SAT 98 , Room Air, O2 Flow Rate . Vital Sign Comment: [none] Latest Damon Fall Score: 50 Fall Risk: High Risk Safety Measures: Call light Within Reach, Bed Alarm Zone 1, Side Rails Side Rails x3, Bed position Low and Locked. Fall Precautions: Yellow Socks Yellow Gown Door Sign Patient Fall Education Report given to [DONELL Greco].
--- NOTE | 2020-03-22 19:30 | NUR ---
NURSE NOTES: Received report from husam jackson. patient is on bed, awake and verbally responsive. respirations even and unlabored. no sob. with 2 iv lines on the left wrist and right forearm. with [address] hernandez catheter. on CBI monitoring. pink lemonade; no noted clots at the moment. per manuel," patient is for cystoscopy tomorrow, consent signed; NPO post midnight". bed locked and in lowest position. call light and light button within easy reach. will continue plan of care.
[2020-03-22 20:00] VITALS: BP 134/66
--- NOTE | 2020-03-22 20:57 | Pre-Procedure Note/Attestation ---
Pre-Procedure Note/Attestation Complete Prior to Procedure Planned Procedure: left Procedure Narrative: cysto, TURBT and fulguration, exchange of ureteral stent, poss ureteroscopy Indications for Procedure Pre-Operative Diagnosis: hematuria, bladder ca, hydro Attestation I attest that I discussed the nature of the procedure; its benefits; risks and complications; and alternatives (and the risks and benefits of such alternatives ), prior to the procedure, with the patient (or the patient's legal novelties sales representative). I attest that, if there was a reasonable possibility of needing a blood transfusion, the patient (or the patient's legal novelties sales representative) was given the [facility] standardized written summary, pursuant to the [place] Blood Safety Act ([place] Health and Safety Code # 1645, as amended). I attest that I re-evaluated the patient just prior to the surgery and that there has been no change in the patient's H&P, except as documented below: Macho Allen MD Mar 22, 2020 20:57
[2020-03-22] MEDS: Atorvastatin 20mg tab ORAL SCH (21:53)
[2020-03-22] MEDS: Tamsulosin 0.4mg cap ORAL SCH (21:53)
[2020-03-23] VITALS (14 sets, daily range): BP systolic 129–181; BP diastolic 62–101
[2020-03-23] MEDS: Piperacillin/Tazobactam 3.375 GM in NS 110 ML IVPB SCH ×3 (05:33→21:04)
[2020-03-23] MEDS: NovoLOG Insulin Flexpen SUBQ SCH ×4 (05:33→21:00)
[2020-03-23 06:21] LABS: HEMATOCRIT 35.6 % (42.0-52.0); HEMOGLOBIN 11.3 G/DL (14.2-18.0); MEAN CORPUSCULAR VOLUME 81 FL (80-99); PLATELET COUNT 299 K/UL (150-450); RED CELL DISTRIBUTION WIDTH 16.1 % (11.6-14.8)
[2020-03-23 06:27] LABS: WHITE BLOOD COUNT 24.6 K/UL (4.8-10.8)
[2020-03-23 06:47] LABS: ALANINE AMINOTRANSFERASE 18 U/L (12-78); ALBUMIN 1.6 G/DL (3.4-5.0); ALBUMIN/GLOBULIN RATIO 0.4 (1.0-2.7); ALKALINE PHOSPHATASE 69 U/L (46-116); ANION GAP 6 mmol/L (5-15); ASPARTATE AMINO TRANSFERASE 16 U/L (15-37); BILIRUBIN,TOTAL 0.7 MG/DL (0.2-1.0); BLOOD UREA NITROGEN 6 mg/dL (7-18); CALCIUM 8.5 MG/DL (8.5-10.1); CARBON DIOXIDE 28 MMOL/L (21-32); CHLORIDE 107 MMOL/L (98-107); PHOSPHORUS 2.8 MG/DL (2.5-4.9); POTASSIUM 4.3 MMOL/L (3.5-5.1); SODIUM 141 MMOL/L (136-145)
--- NOTE | 2020-03-23 06:50 | NUR ---
NURSE HAND-OFF: Important Events on Shift: cbi monitoring, Patient Status:stable Diet: NPO Pending Orders: cysto, TURBT & fulguration, exchange of ureteral stent: poss uteroscopy Pending Results/Labs: pending Pending MD notification: Latest Vital Signs: Temperature 97.5 , Pulse 60 , B/P 130 /70 , Respiratory Rate 18 , O2 SAT 100 , Room Air, O2 Flow Rate . Vital Sign Comment: Latest Damon Fall Score: 50 Fall Risk: High Risk Safety Measures: Call light Within Reach, Bed Alarm Zone 1, Side Rails Side Rails x3, Bed position Low and Locked. Fall Precautions: Yellow Socks Yellow Gown Door Sign Patient Fall Education Addendum: 03/23/20 at 0719 by Marlyn Torrez RN PAGED DR. MELCHOR regarding the wbc of 24.6 from 24.5(03/22). endorsed to follow up.
--- NOTE | 2020-03-23 06:54 | Hematology/Onc Progress Note ---
Assessment/Plan Assessment/Plan # Bladder cancer extensive stage, WORSENED with PD1+ on biopsy from 12/2018 results, iintially with L hydronephrosis/L Hydroureter 2ry to extensive bladder tumor, that is extensive stage. 11/25 SP Cystoscopy, urethral calibration , transurethral resection of extensive bladder tumor with fulguration, and right retrograde pyelogram. Findings: The patient had what appeared to be a large bladder tumor that involved most of the left side of the bladder extending posteriorly and completely obliterating the left ureteral orifice. Seen by urology --> CT abd/p: Limited assessment of the GI tract, due to lack of enteric contrast administration. Moderate left hydronephrosis and hydroureter. Hydroureter extends to the bladder, where there is asymmetric posterolateral wall thickening raises concern for neoplasm. There is also generalized wall thickening, possibly on the basis of cystitis or chronic bladder outlet obstruction. No definite findings to suggest etiology of stated clinical history of GI bleed. Cholelithiasis. Basilar pulmonary atelectasis and equivocal slight interstitial congestion. L1 vertebral body compression fracture deformity, age indeterminate. --> appreciate urology recs, pulm recs --> 12/31/18: s/p stent placement --> CT A/P 03/2020 Mass within the bladder increased in size since previous examination. Presumably this represents bladder neoplasm. Air is also noted within the bladder and the possibility of bladder infection or internal fistula to the bladder should b considered. Left hydronephrosis and with air in the left renal collecting system. There is a left ureteral stent. The air likely is coming from the bladder but the possibility of infection again is not excluded. --> is now s/p TURB resection x 2 --> urology and pcp followup # Anemia due to hematuira --> appreciate gi recs, in prior endoscopy negatve --> for hematuria is on AMICAR --> anemia panel has been reviewed before --> 3 way hernandez with irrigation --> transfuse if hgb <7 --> per uro recs --> hgb trend 9.5-->7.9-->11 ==> may need iv iron # Leukocytosis is likely due to malignancy and esbl uti --> on abx meropenem-->zosyn --> wbc 24-->25 --> per id # Hydronephrosis --> s/p stent placement # Chronic cerebrovascular accident (CVA) --> per neuro as needed # Diabetes mellitus II --> accuchecks qac and qhs --> insulin coverage as needed # Alzheimer's dementia # 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 Greatly appreciate consultation! Subjective Constitutional: Denies: no symptoms, chills, fever, malaise, weakness, other HEENT: Denies: no symptoms, eye pain, blurred vision, tearing, double vision, ear pain, ear discharge, nose pain, nose congestion, throat pain, throat swelling, mouth pain, mouth swelling, other Gastrointestinal/Abdominal: Denies: no symptoms, abdomen distended, abdominal pain, black stools, tarry stools, blood in stool, constipated, diarrhea, difficulty swallowing, nausea, poor appetite, poor fluid intake, rectal bleeding , vomiting, other Genitourinary: Denies: no symptoms, burning, discharge, frequency, flank pain, hematuria, incontinence, pain, urgency, other 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: Denies: no symptoms, anxiety, depressed, emotional problems, headache, numbness, paresthesia, pre-existing deficit, seizure, tingling, tremors, weakness, other Endocrine: Denies: no symptoms, excessive sweating, flushing, intolerance to cold, intolerance to heat, increased hunger, increased thirst, increased urine, unexplained weight gain, unexplained weight loss, other Hematologic/Lymphatic: Denies: no symptoms, anemia, easy bleeding, easy bruising, adenopathy, other Allergies: Coded Allergies: No Known Allergies (Unverified , 04/09/16) Subjective 03/23 remains on cbi, no bleeding, wbc 25k, abx prn, is on zosyn Objective Objective Current Medications Medications (Trade) Dose Ordered Sig/Levi Route PRN Reason Start Time Stop Time Status Last Admin Dose Admin Acetaminophen (Tylenol) 650 mg Q4H PRN ORAL fever (T>100.5F) 03/18/20 16:45 04/09/20 04:44 Albuterol/ Ipratropium (Albuterol/ Ipratropium) 3 ml Q4HRT PRN N Shortness of Breath 03/18/20 19:00 03/23/20 09:59 03/20/20 21:02 Atorvastatin Calcium (Lipitor) 20 mg BEDTIME ORAL 03/18/20 21:00 06/09/20 20:59 03/22/20 21:53 Dextrose (Dextrose 50%) 25 ml Q30M PRN IV Hypoglycemia 03/18/20 16:30 06/11/20 04:59 Dextrose (Dextrose 50%) 50 ml Q30M PRN IV Hypoglycemia 03/18/20 16:30 06/08/20 14:29 Finasteride (Proscar) 5 mg DAILY ORAL 03/19/20 09:00 06/09/20 08:59 03/22/20 08:21 Insulin Aspart (NovoLOG) No Dose BEFORE MEALS AND HS SUBQ 03/18/20 16:30 06/15/20 06:29 03/19/20 16:39 Lidocaine HCl (Xylocaine Jelly 2%) 1 applic DAILYPRN PRN TOPIC for pain in penile region 03/18/20 16:30 06/16/20 16:29 Metoprolol Tartrate (Lopressor) 12.5 mg BID ORAL 03/18/20 18:00 06/08/20 21:59 03/22/20 17:05 Nateglinide (Starlix) 120 mg DAILY ORAL 03/19/20 09:00 04/10/20 08:59 03/22/20 08:21 Nitroglycerin (Ntg) 0.4 mg Q5M PRN SL Prn Chest Pain 03/18/20 16:30 04/09/20 14:29 Ondansetron HCl (Zofran) 4 mg Q6H PRN IVP Nausea & Vomiting 03/18/20 16:45 04/09/20 04:44 Piperacillin Sod/ Tazobactam Sod 3.375 gm/Sodium Chloride 110 ml @ 27.5 mls/hr EVERY 8 HOURS IVPB 03/18/20 22:00 03/25/20 23:59 03/23/20 05:33 Polyethylene Glycol (Miralax) 17 gm DAILYPRN PRN ORAL Constipation 03/18/20 16:31 04/17/20 16:30 Sodium Chloride 1,000 ml @ 100 mls/hr Q10H IVLG 03/18/20 16:30 04/09/20 16:14 03/23/20 05:33 Tamsulosin HCl (Flomax) 0.4 mg BEDTIME ORAL 03/18/20 21:00 04/09/20 20:59 03/22/20 21:53 Last 24 Hour Vital Signs Date Time Temp Pulse Resp B/P (MAP) Pulse Ox O2 Delivery O2 Flow Rate FiO2 03/23/20 04:00 97.5 60 18 130/70 (90) 100 03/23/20 00:00 96.4 60 18 129/62 (84) 99 03/22/20 21:00 Room Air 03/22/20 20:00 97.9 61 18 134/66 (88) 99 03/22/20 19:30 64 18 97 Room Air 21 03/22/20 17:05 60 123/62 03/22/20 16:00 97.5 60 18 123/62 (82) 98 03/22/20 12:00 97.3 60 18 138/66 (90) 100 03/22/20 09:00 Room Air 03/22/20 08:21 60 130/67 03/22/20 08:00 97.2 60 18 130/67 (88) 100 03/22/20 07:23 96 Room Air 21 03/22/20 07:23 60 16 96 Room Air 21 03/22/20 04:00 97.8 60 19 139/66 (90) 98 03/22/20 00:00 97.8 65 19 132/62 (85) 97 03/21/20 21:00 Room Air 03/21/20 20:00 97.3 61 19 137/72 (93) 98 03/21/20 17:40 73 126/70 03/21/20 16:00 97.7 73 19 126/70 (88) 98 03/21/20 12:00 97.8 77 19 120/63 (82) 97 03/21/20 09:00 Room Air 03/21/20 08:15 76 118/53 03/21/20 08:00 97.9 76 20 118/53 (74) 99 Intake and Output 03/22/20 03/23/20 19:00 07:00 Intake Total 375.0 ml 910.0 ml Output Total 2000 ml 1500 ml Balance -1625.0 ml -590.0 ml Intake Oral 320 ml 100 ml IV Total 55.0 ml 810.0 ml Output Urine Total 2000 ml 1500 ml Labs Test 03/20/20 08:45 03/20/20 11:16 03/20/20 16:22 03/21/20 06:30 White Blood Count 24.0 K/UL (4.8-10.8) 20.7 K/UL (4.8-10.8) Red Blood Count 3.20 M/UL (4.70-6.10) 3.10 M/UL (4.70-6.10) Hemoglobin 8.1 G/DL (14.2-18.0) 7.9 G/DL (14.2-18.0) Hematocrit 25.5 % (42.0-52.0) 24.9 % (42.0-52.0) Mean Corpuscular Volume 80 FL (80-99) 80 FL (80-99) Mean Corpuscular Hemoglobin 25.5 PG (27.0-31.0) 25.4 PG (27.0-31.0) Mean Corpuscular Hemoglobin Concent 31.9 G/DL (32.0-36.0) 31.7 G/DL (32.0-36.0) Red Cell Distribution Width 16.4 % (11.6-14.8) 16.9 % (11.6-14.8) Platelet Count 232 K/UL (150-450) 243 K/UL (150-450) Mean Platelet Volume 5.9 FL (6.5-10.1) 6.0 FL (6.5-10.1) Neutrophils (%) (Auto) % (45.0-75.0) % (45.0-75.0) Lymphocytes (%) (Auto) % (20.0-45.0) % (20.0-45.0) Monocytes (%) (Auto) % (1.0-10.0) % (1.0-10.0) Eosinophils (%) (Auto) % (0.0-3.0) % (0.0-3.0) Basophils (%) (Auto) % (0.0-2.0) % (0.0-2.0) Differential Total Cells Counted 100 100 Neutrophils % (Manual) 95 % (45-75) 87 % (45-75) Lymphocytes % (Manual) 2 % (20-45) 5 % (20-45) Monocytes % (Manual) 3 % (1-10) 6 % (1-10) Eosinophils % (Manual) 0 % (0-3) 1 % (0-3) Basophils % (Manual) 0 % (0-2) 1 % (0-2) Band Neutrophils 0 % (0-8) 0 % (0-8) Platelet Estimate Adequate Adequate Platelet Morphology Normal Normal Hypochromasia 2+ Anisocytosis 1+ 1+ Microcytosis 1+ Sodium Level 138 MMOL/L (136-145) 137 MMOL/L (136-145) Potassium Level 3.9 MMOL/L (3.5-5.1) 4.0 MMOL/L (3.5-5.1) Chloride Level 107 MMOL/L (98-107) 107 MMOL/L (98-107) Carbon Dioxide Level 26 MMOL/L (21-32) 25 MMOL/L (21-32) Anion Gap 6 mmol/L (5-15) 5 mmol/L (5-15) Blood Urea Nitrogen 7 mg/dL (7-18) 7 mg/dL (7-18) Creatinine 1.1 MG/DL (0.55-1.30) 1.1 MG/DL (0.55-1.30) Estimat Glomerular Filtration Rate > 60 mL/min (>60) > 60 mL/min (>60) Glucose Level 129 MG/DL (74-106) 97 MG/DL (74-106) Calcium Level 8.2 MG/DL (8.5-10.1) 8.1 MG/DL (8.5-10.1) POC Whole Blood Glucose 91 MG/DL (74-106) Test 03/21/20 11:27 03/21/20 16:56 03/22/20 10:00 03/23/20 05:35 POC Whole Blood Glucose 97 MG/DL (74-106) 95 MG/DL (74-106) White Blood Count 24.5 K/UL (4.8-10.8) 24.6 K/UL (4.8-10.8) Red Blood Count 4.38 M/UL (4.70-6.10) 4.40 M/UL (4.70-6.10) Hemoglobin 11.5 G/DL (14.2-18.0) 11.3 G/DL (14.2-18.0) Hematocrit 35.6 % (42.0-52.0) 35.6 % (42.0-52.0) Mean Corpuscular Volume 81 FL (80-99) 81 FL (80-99) Mean Corpuscular Hemoglobin 26.2 PG (27.0-31.0) 25.7 PG (27.0-31.0) Mean Corpuscular Hemoglobin Concent 32.2 G/DL (32.0-36.0) 31.7 G/DL (32.0-36.0) Red Cell Distribution Width 16.1 % (11.6-14.8) 16.1 % (11.6-14.8) Platelet Count 238 K/UL (150-450) 299 K/UL (150-450) Mean Platelet Volume 5.9 FL (6.5-10.1) 6.4 FL (6.5-10.1) Neutrophils (%) (Auto) % (45.0-75.0) % (45.0-75.0) Lymphocytes (%) (Auto) % (20.0-45.0) % (20.0-45.0) Monocytes (%) (Auto) % (1.0-10.0) % (1.0-10.0) Eosinophils (%) (Auto) % (0.0-3.0) % (0.0-3.0) Basophils (%) (Auto) % (0.0-2.0) % (0.0-2.0) Differential Total Cells Counted 100 Neutrophils % (Manual) 92 % (45-75) Lymphocytes % (Manual) 5 % (20-45) Monocytes % (Manual) 3 % (1-10) Eosinophils % (Manual) 0 % (0-3) Basophils % (Manual) 0 % (0-2) Band Neutrophils 0 % (0-8) Platelet Estimate Adequate Platelet Morphology Normal Anisocytosis 1+ Sodium Level 137 MMOL/L (136-145) 141 MMOL/L (136-145) Potassium Level 4.1 MMOL/L (3.5-5.1) 4.3 MMOL/L (3.5-5.1) Chloride Level 106 MMOL/L (98-107) 107 MMOL/L (98-107) Carbon Dioxide Level 22 MMOL/L (21-32) 28 MMOL/L (21-32) Anion Gap 9 mmol/L (5-15) 6 mmol/L (5-15) Blood Urea Nitrogen 7 mg/dL (7-18) 6 mg/dL (7-18) Creatinine 0.9 MG/DL (0.55-1.30) 1.0 MG/DL (0.55-1.30) Estimat Glomerular Filtration Rate > 60 mL/min (>60) > 60 mL/min (>60) Glucose Level 91 MG/DL (74-106) 95 MG/DL (74-106) Calcium Level 8.5 MG/DL (8.5-10.1) 8.5 MG/DL (8.5-10.1) Phosphorus Level 2.8 MG/DL (2.5-4.9) Magnesium Level 1.5 MG/DL (1.8-2.4) Total Bilirubin 0.7 MG/DL (0.2-1.0) Aspartate Amino Transf (AST/SGOT) 16 U/L (15-37) Alanine Aminotransferase (ALT/SGPT) 18 U/L (12-78) Alkaline Phosphatase 69 U/L (46-116) C-Reactive Protein, Quantitative 6.8 mg/dL (0.00-0.90) Total Protein 6.1 G/DL (6.4-8.2) Albumin 1.6 G/DL (3.4-5.0) Globulin 4.5 g/dL Albumin/Globulin Ratio 0.4 (1.0-2.7) Height (Feet): 5 Height (Inches): 9.00 Weight (Pounds): 186 Objective Physical Exam: Vitals: reviewed General: NAD HEENT: nc, at Neck: supple Chest: clear breath sounds bilaterally Cardiovascular: RRR, no s3, s4 Abdomen: soft, nontender, nd Extremities: no cce, normal range of motion Neuro: alet : +++Pierce Chávez MD Mar 23, 2020 06:54
--- NOTE | 2020-03-23 07:30 | Infectious Diseases Prog Note ---
Assessment/Plan 84yo M with bladder cancer who p/w chest pain, found to have elevated troponin and leukocytosis. Afebrile Sepsis Leukocytosis, overall improved but remains elevated - no abscess on CT L hydronephrosis, stent in place 03/14 CT abd/p: Mass within the bladder increased in size since previous examination. Presumably this represents bladder neoplasm. Air is also noted within the bladder and the possibility of bladder infection or internal fistula to the bladder should be considered. Left hydronephrosis and with air in the left renal collecting system. There is a left ureteral stent. The air likely is coming from the bladder but the possibility of infection again is not excluded. Atherosclerotic change. Degenerative change in the spine.Cholelithiasis. Bilateral pleural effusions, right greater than left.Subcutaneous edema consistent with mild anasarca. 03/17 BCx NTD 03/18 UCx NTD 03/20 Renal US w/ persistent L hydro UTI/pyelonephritis, UA with tnct WBC, UCx >100k ESBL E.coli on 03/10 Rapid COVID neg x1 03/13 CXR: Some crowding of markings remain inthe lung bases likely related to a limited inspiration and low lung volumes. No new alveolar process. R/o bacteremia 03/11 BCx NTD 03/10 BCx NTD NSTEMI w/ elevated troponin, can also be a cause of reactive leukocytosis Bladder cancer Hematuria On CBI per Urology Plan: Cont Zosyn #5/5 empiric given leukocytosis, stop after doses today Leukocytosis persistent despite abx, and pt has remained AF and HDS, thus leukocytosis more likely 2/2 bladder CA and bleeding than due to infection Trend WBC daily 03/21 SP vanco #2 03/18 SP latoya #7 for ESBL UTI/pyelo 03/12 SP vanco #2, cefepime #2 Trend resp status Trend leukocytosis daily Monitor CBC, CMP D/w RN Thank you for this consult. [facility] will continue to follow. Subjective Allergies: Coded Allergies: No Known Allergies (Unverified , 04/09/16) AF NAD WBC stable at 24 Going for cysto today No complaints Objective Last 24 Hour Vital Signs Date Time Temp Pulse Resp B/P (MAP) Pulse Ox O2 Delivery O2 Flow Rate FiO2 03/23/20 06:51 61 16 98 Room Air 21 03/23/20 04:00 97.5 60 18 130/70 (90) 100 03/23/20 00:00 96.4 60 18 129/62 (84) 99 03/22/20 21:00 Room Air 03/22/20 20:00 97.9 61 18 134/66 (88) 99 03/22/20 19:30 64 18 97 Room Air 21 03/22/20 17:05 60 123/62 03/22/20 16:00 97.5 60 18 123/62 (82) 98 03/22/20 12:00 97.3 60 18 138/66 (90) 100 03/22/20 09:00 Room Air 03/22/20 08:21 60 130/67 03/22/20 08:00 97.2 60 18 130/67 (88) 100 Height (Feet): 5 Height (Inches): 9.00 Weight (Pounds): 186 Gen: Older man, laying in bed, NAD CV: RRR Pulm: CTAB anteriorly Abd; Soft, NTND Neuro: Awake, interactive Lines: Dark pink tinged urine in hernandez bag Laboratory Tests Test 03/22/20 10:00 03/23/20 05:35 White Blood Count 24.5 K/UL (4.8-10.8) *H 24.6 K/UL (4.8-10.8) *H Red Blood Count 4.38 M/UL (4.70-6.10) L 4.40 M/UL (4.70-6.10) L Hemoglobin 11.5 G/DL (14.2-18.0) #L 11.3 G/DL (14.2-18.0) L Hematocrit 35.6 % (42.0-52.0) #L 35.6 % (42.0-52.0) L Mean Corpuscular Volume 81 FL (80-99) 81 FL (80-99) Mean Corpuscular Hemoglobin 26.2 PG (27.0-31.0) L 25.7 PG (27.0-31.0) L Mean Corpuscular Hemoglobin Concent 32.2 G/DL (32.0-36.0) 31.7 G/DL (32.0-36.0) L Red Cell Distribution Width 16.1 % (11.6-14.8) H 16.1 % (11.6-14.8) H Platelet Count 238 K/UL (150-450) 299 K/UL (150-450) Mean Platelet Volume 5.9 FL (6.5-10.1) L 6.4 FL (6.5-10.1) L Neutrophils (%) (Auto) % (45.0-75.0) % (45.0-75.0) Lymphocytes (%) (Auto) % (20.0-45.0) % (20.0-45.0) Monocytes (%) (Auto) % (1.0-10.0) % (1.0-10.0) Eosinophils (%) (Auto) % (0.0-3.0) % (0.0-3.0) Basophils (%) (Auto) % (0.0-2.0) % (0.0-2.0) Differential Total Cells Counted 100 Neutrophils % (Manual) 92 % (45-75) H Pending Lymphocytes % (Manual) 5 % (20-45) L Pending Monocytes % (Manual) 3 % (1-10) Eosinophils % (Manual) 0 % (0-3) Basophils % (Manual) 0 % (0-2) Band Neutrophils 0 % (0-8) Platelet Estimate Adequate Pending Platelet Morphology Normal Pending Anisocytosis 1+ Sodium Level 137 MMOL/L (136-145) 141 MMOL/L (136-145) Potassium Level 4.1 MMOL/L (3.5-5.1) 4.3 MMOL/L (3.5-5.1) Chloride Level 106 MMOL/L (98-107) 107 MMOL/L (98-107) Carbon Dioxide Level 22 MMOL/L (21-32) 28 MMOL/L (21-32) Anion Gap 9 mmol/L (5-15) 6 mmol/L (5-15) Blood Urea Nitrogen 7 mg/dL (7-18) 6 mg/dL (7-18) L Creatinine 0.9 MG/DL (0.55-1.30) 1.0 MG/DL (0.55-1.30) Estimat Glomerular Filtration Rate > 60 mL/min (>60) > 60 mL/min (>60) Glucose Level 91 MG/DL (74-106) 95 MG/DL (74-106) Calcium Level 8.5 MG/DL (8.5-10.1) 8.5 MG/DL (8.5-10.1) Erythrocyte Sedimentation Rate Pending Phosphorus Level 2.8 MG/DL (2.5-4.9) Magnesium Level 1.5 MG/DL (1.8-2.4) L Total Bilirubin 0.7 MG/DL (0.2-1.0) Aspartate Amino Transf (AST/SGOT) 16 U/L (15-37) Alanine Aminotransferase (ALT/SGPT) 18 U/L (12-78) Alkaline Phosphatase 69 U/L (46-116) C-Reactive Protein, Quantitative 6.8 mg/dL (0.00-0.90) H Total Protein 6.1 G/DL (6.4-8.2) L Albumin 1.6 G/DL (3.4-5.0) L Globulin 4.5 g/dL Albumin/Globulin Ratio 0.4 (1.0-2.7) L Current Medications Medications (Trade) Dose Ordered Sig/Levi Route PRN Reason Start Time Stop Time Status Last Admin Dose Admin Acetaminophen (Tylenol) 650 mg Q4H PRN ORAL fever (T>100.5F) 03/18/20 16:45 04/09/20 04:44 Albuterol/ Ipratropium (Albuterol/ Ipratropium) 3 ml Q4HRT PRN HHN Shortness of Breath 03/18/20 19:00 03/23/20 09:59 03/20/20 21:02 Atorvastatin Calcium (Lipitor) 20 mg BEDTIME ORAL 03/18/20 21:00 06/09/20 20:59 03/22/20 21:53 Dextrose (Dextrose 50%) 25 ml Q30M PRN IV Hypoglycemia 03/18/20 16:30 06/11/20 04:59 Dextrose (Dextrose 50%) 50 ml Q30M PRN IV Hypoglycemia 03/18/20 16:30 06/08/20 14:29 Finasteride (Proscar) 5 mg DAILY ORAL 03/19/20 09:00 06/09/20 08:59 03/22/20 08:21 Insulin Aspart (NovoLOG) No Dose BEFORE MEALS AND HS SUBQ 03/18/20 16:30 06/15/20 06:29 03/19/20 16:39 Lidocaine HCl (Xylocaine Jelly 2%) 1 applic DAILYPRN PRN TOPIC for pain in penile region 03/18/20 16:30 06/16/20 16:29 Metoprolol Tartrate (Lopressor) 12.5 mg BID ORAL 03/18/20 18:00 06/08/20 21:59 03/22/20 17:05 Nateglinide (Starlix) 120 mg DAILY ORAL 03/19/20 09:00 04/10/20 08:59 03/22/20 08:21 Nitroglycerin (Ntg) 0.4 mg Q5M PRN SL Prn Chest Pain 03/18/20 16:30 04/09/20 14:29 Ondansetron HCl (Zofran) 4 mg Q6H PRN IVP Nausea & Vomiting 03/18/20 16:45 04/09/20 04:44 Piperacillin Sod/ Tazobactam Sod 3.375 gm/Sodium Chloride 110 ml @ 27.5 mls/hr EVERY 8 HOURS IVPB 03/18/20 22:00 03/25/20 23:59 03/23/20 05:33 Polyethylene Glycol (Miralax) 17 gm DAILYPRN PRN ORAL Constipation 03/18/20 16:31 04/17/20 16:30 Sodium Chloride 1,000 ml @ 100 mls/hr Q10H IVLG 03/18/20 16:30 04/09/20 16:14 03/23/20 05:33 Tamsulosin HCl (Flomax) 0.4 mg BEDTIME ORAL 03/18/20 21:00 04/09/20 20:59 03/22/20 21:53 Carlie Callaway M.D. Mar 23, 2020 07:30
--- NOTE | 2020-03-23 07:53 | NUR ---
NURSE NOTES: Received pt report. patient is sleeping comfortably in bed with no sob or resp distress. 3 way hernandez catheter noted and on CBI monitoring. copllection drainage is noted color pink lemonade, no visual clots. Pt will continue to be NPO for scheduled procedure. Bed in lowest locked position, call light within easy reach. will continue plan of care
[2020-03-23] MEDS: Metoprolol Tartrate 12.5mg TAB ORAL SCH ×2 (08:33→18:00)
--- NOTE | 2020-03-23 09:29 | Urology Progress Note ---
Assessment/Plan Assessment/Plan: 1. Gross hematuria. 2. Bladder cancer history with enlarging bladder mass. 3. Left-sided hydro, which is chronic. 4. BPH history. 5. Urinary retention. 6. UTI. 7. Proteinuria. 8. Neurogenic bladder. maintain hernandez, 3-way placed 03/15 CBI, titrate rate to keep clear hernandez hand irrigated and do PRN occasional small clots noted abx as ordered monitor h/h, wbc blood transfusion PRN off ASA since 03/13 flomax and proscar plan cysto, family agreeable med/onc f/u f/u on last blood cx d/w nursing staff d/w primary service d/w pt's son fully and consent obtained pt high risk for surgery but has had persistent bleeding requiring mult transfusions also MDR UTI, plan to change ureteral stent Subjective Allergies: Coded Allergies: No Known Allergies (Unverified , 04/09/16) Subjective all noted, comfortable CBI running Objective Last 24 Hour Vital Signs Date Time Temp Pulse Resp B/P (MAP) Pulse Ox O2 Delivery O2 Flow Rate FiO2 03/23/20 08:33 72 132/65 03/23/20 08:00 98.9 60 21 132/65 (87) 97 03/23/20 06:51 61 16 98 Room Air 21 03/23/20 04:00 97.5 60 18 130/70 (90) 100 03/23/20 00:00 96.4 60 18 129/62 (84) 99 03/22/20 21:00 Room Air 03/22/20 20:00 97.9 61 18 134/66 (88) 99 03/22/20 19:30 64 18 97 Room Air 21 03/22/20 17:05 60 123/62 03/22/20 16:00 97.5 60 18 123/62 (82) 98 03/22/20 12:00 97.3 60 18 138/66 (90) 100 Intake and Output 03/22/20 03/23/20 19:00 07:00 Intake Total 375.0 ml 910.0 ml Output Total 2000 ml 1500 ml Balance -1625.0 ml -590.0 ml Intake Oral 320 ml 100 ml IV Total 55.0 ml 810.0 ml Output Urine Total 2000 ml 1500 ml Microbiology Date/Time Source Procedure Growth Status 03/17/20 19:00 Blood Blood Culture - Final NO GROWTH AFTER 5 DAYS Complete 03/12/20 06:05 Nasal Nares MRSA Culture - Final NO METHICILLIN RESISTANT STAPH AUREUS... Complete 03/18/20 09:15 Indwelling Cath Urine Culture - Final NO GROWTH AFTER 48 HOURS Complete 03/12/20 04:00 Rectum VRE Culture - Final Enterococcus Faecalis - Vre Complete Current Medications Medications (Trade) Dose Ordered Sig/Levi Route PRN Reason Start Time Stop Time Status Last Admin Dose Admin Acetaminophen (Tylenol) 650 mg Q4H PRN ORAL fever (T>100.5F) 03/18/20 16:45 04/09/20 04:44 Albuterol/ Ipratropium (Albuterol/ Ipratropium) 3 ml Q4HRT PRN HHN Shortness of Breath 03/18/20 19:00 03/23/20 09:59 03/20/20 21:02 Atorvastatin Calcium (Lipitor) 20 mg BEDTIME ORAL 03/18/20 21:00 06/09/20 20:59 03/22/20 21:53 Dextrose (Dextrose 50%) 25 ml Q30M PRN IV Hypoglycemia 03/18/20 16:30 06/11/20 04:59 Dextrose (Dextrose 50%) 50 ml Q30M PRN IV Hypoglycemia 03/18/20 16:30 06/08/20 14:29 Finasteride (Proscar) 5 mg DAILY ORAL 03/19/20 09:00 06/09/20 08:59 03/23/20 08:33 Insulin Aspart (NovoLOG) No Dose BEFORE MEALS AND HS SUBQ 03/18/20 16:30 06/15/20 06:29 03/19/20 16:39 Lidocaine HCl (Xylocaine Jelly 2%) 1 applic DAILYPRN PRN TOPIC for pain in penile region 03/18/20 16:30 06/16/20 16:29 Metoprolol Tartrate (Lopressor) 12.5 mg BID ORAL 03/18/20 18:00 06/08/20 21:59 03/23/20 08:33 Nateglinide (Starlix) 120 mg DAILY ORAL 03/19/20 09:00 04/10/20 08:59 03/23/20 08:33 Nitroglycerin (Ntg) 0.4 mg Q5M PRN SL Prn Chest Pain 03/18/20 16:30 04/09/20 14:29 Ondansetron HCl (Zofran) 4 mg Q6H PRN IVP Nausea & Vomiting 03/18/20 16:45 04/09/20 04:44 Piperacillin Sod/ Tazobactam Sod 3.375 gm/Sodium Chloride 110 ml @ 27.5 mls/hr EVERY 8 HOURS IVPB 03/18/20 22:00 03/25/20 23:59 03/23/20 05:33 Polyethylene Glycol (Miralax) 17 gm DAILYPRN PRN ORAL Constipation 03/18/20 16:31 04/17/20 16:30 Sodium Chloride 1,000 ml @ 100 mls/hr Q10H IVLG 03/18/20 16:30 04/09/20 16:14 03/23/20 05:33 Tamsulosin HCl (Flomax) 0.4 mg BEDTIME ORAL 03/18/20 21:00 04/09/20 20:59 03/22/20 21:53 Laboratory Tests 03/22/20 10:00: White Blood Count 24.5*H, Red Blood Count 4.38L, Hemoglobin 11.5#L, Hematocrit 35.6#L, Mean Corpuscular Volume 81, Mean Corpuscular Hemoglobin 26.2L, Mean Corpuscular Hemoglobin Concent 32.2, Red Cell Distribution Width 16.1H, Platelet Count 238, Mean Platelet Volume 5.9L, Neutrophils (%) (Auto) , Lymphocytes (%) (Auto) , Monocytes (%) (Auto) , Eosinophils (%) (Auto) , Basophils (%) (Auto) , Differential Total Cells Counted 100, Neutrophils % ( Manual) 92H, Lymphocytes % (Manual) 5L, Monocytes % (Manual) 3, Eosinophils % ( Manual) 0, Basophils % (Manual) 0, Band Neutrophils 0, Platelet Estimate Adequate, Platelet Morphology Normal, Anisocytosis 1+, Sodium Level 137, Potassium Level 4.1, Chloride Level 106, Carbon Dioxide Level 22, Anion Gap 9, Blood Urea Nitrogen 7, Creatinine 0.9, Estimat Glomerular Filtration Rate > 60, Glucose Level 91, Calcium Level 8.5 03/23/20 05:35: White Blood Count 24.6*H, Red Blood Count 4.40L, Hemoglobin 11.3L, Hematocrit 35.6L, Mean Corpuscular Volume 81, Mean Corpuscular Hemoglobin 25.7L, Mean Corpuscular Hemoglobin Concent 31.7L, Red Cell Distribution Width 16.1H, Platelet Count 299, Mean Platelet Volume 6.4L, Neutrophils (%) (Auto) , Lymphocytes (%) (Auto) , Monocytes (%) (Auto) , Eosinophils (%) (Auto) , Basophils (%) (Auto) , Differential Total Cells Counted 100, Neutrophils % ( Manual) 91H, Lymphocytes % (Manual) 5L, Monocytes % (Manual) 3, Eosinophils % ( Manual) 1, Basophils % (Manual) 0, Band Neutrophils 0, Platelet Estimate Adequate, Platelet Morphology Normal, Anisocytosis 1+, Sodium Level 141, Potassium Level 4.3, Chloride Level 107, Carbon Dioxide Level 28, Anion Gap 6, Blood Urea Nitrogen 6L, Creatinine 1.0, Estimat Glomerular Filtration Rate > 60 , Glucose Level 95, Calcium Level 8.5, Hypochromasia 1+, Erythrocyte Sedimentation Rate 79H, Phosphorus Level 2.8, Magnesium Level 1.5L, Total Bilirubin 0.7, Aspartate Amino Transf (AST/SGOT) 16, Alanine Aminotransferase ( ALT/SGPT) 18, Alkaline Phosphatase 69, C-Reactive Protein, Quantitative 6.8H, Total Protein 6.1L, Albumin 1.6L, Globulin 4.5, Albumin/Globulin Ratio 0.4L Height (Feet): 5 Height (Inches): 9.00 Weight (Pounds): 186 Objective exam stable hernandez indwelling, CBI mild-moderate rate urine remains blood-tinged renal u/s (03/20) noted Macho Allen MD Mar 23, 2020 09:29
--- NOTE | 2020-03-23 12:25 | NUR ---
RD ASSESSMENT & RECOMMENDATIONS SEE CARE ACTIVITY FOR COMPLETE ASSESSMENT DAILY ESTIMATED NEEDS: Needs based on DM, ca 70.2g 25-35 kcals/kg 2608-6749 total kcals 1-2 g protein/kg 70-140 g total protein 20-30ml/kcal mL/kg 5724-8297 total fluid mLs NUTRITION DIAGNOSIS: * Swallowing difficulty R/T dysphagia as evidenced by h/o CVA, s/p OPERATING ROOM SPECIALIST eval, on [facility] soft chopped diet w/ NTL , variable po intake. CURRENT DIET:CCHO MED, ms chopped w/ NTL PO DIET RECOMMENDATIONS: CCHO MED / texture per OPERATING ROOM SPECIALIST ADDITIONAL RECOMMENDATIONS: 1) Calibrated bedscale wt for accurate CBW EMR wt: 190# vs Bed wt: 154# vs Current wt: 186# 2) Check lytes daily, replete as needed 3) Glucerna 1 tetra robinson TID + Snacks as tolerated 4) OPERATING ROOM SPECIALIST evaluation for appropriate texture and max po intake On chopped diet w/ NTL 5) Snacks in b/w meals as able, as tolerated
--- NOTE | 2020-03-23 13:49 | Internal Med Progress Note ---
Subjective Physician Name Jaziel Lowe Attending Physician Jaziel Lowe MD Current Medications Medications (Trade) Dose Ordered Sig/Leiv Route PRN Reason Start Time Stop Time Status Last Admin Dose Admin Acetaminophen (Tylenol) 650 mg Q4H PRN ORAL fever (T>100.5F) 03/18/20 16:45 04/09/20 04:44 Atorvastatin Calcium (Lipitor) 20 mg BEDTIME ORAL 03/18/20 21:00 06/09/20 20:59 03/22/20 21:53 Dextrose (Dextrose 50%) 25 ml Q30M PRN IV Hypoglycemia 03/18/20 16:30 06/11/20 04:59 03/23/20 12:52 Dextrose (Dextrose 50%) 50 ml Q30M PRN IV Hypoglycemia 03/18/20 16:30 06/08/20 14:29 Dextrose/Sodium Chloride 1,000 ml @ 75 mls/hr [id number] IV 03/23/20 14:00 04/22/20 13:59 Finasteride (Proscar) 5 mg DAILY ORAL 03/19/20 09:00 06/09/20 08:59 03/23/20 08:33 Insulin Aspart (NovoLOG) No Dose BEFORE MEALS AND HS SUBQ 03/18/20 16:30 06/15/20 06:29 03/19/20 16:39 Lidocaine HCl (Xylocaine Jelly 2%) 1 applic DAILYPRN PRN TOPIC for pain in penile region 03/18/20 16:30 06/16/20 16:29 Metoprolol Tartrate (Lopressor) 12.5 mg BID ORAL 03/18/20 18:00 06/08/20 21:59 03/23/20 08:33 Nateglinide (Starlix) 120 mg DAILY ORAL 03/19/20 09:00 04/10/20 08:59 03/23/20 08:33 Nitroglycerin (Ntg) 0.4 mg Q5M PRN SL Prn Chest Pain 03/18/20 16:30 04/09/20 14:29 Ondansetron HCl (Zofran) 4 mg Q6H PRN IVP Nausea & Vomiting 03/18/20 16:45 04/09/20 04:44 Piperacillin Sod/ Tazobactam Sod 3.375 gm/Sodium Chloride 110 ml @ 27.5 mls/hr EVERY 8 HOURS IVPB 03/18/20 22:00 03/25/20 23:59 03/23/20 13:16 Polyethylene Glycol (Miralax) 17 gm DAILYPRN PRN ORAL Constipation 03/18/20 16:31 04/17/20 16:30 Tamsulosin HCl (Flomax) 0.4 mg BEDTIME ORAL 03/18/20 21:00 04/09/20 20:59 03/22/20 21:53 Allergies: Coded Allergies: No Known Allergies (Unverified , 04/09/16) Subjective awake, responsive, no acute distress, alert and oriented 2 [address] the name and the place, no acute distress. WBC: 26.5, hemoglobin: 9.7. on CBI Objective Last Vital Signs Date Time Temp Pulse Resp B/P (MAP) Pulse Ox O2 Delivery O2 Flow Rate FiO2 03/23/20 12:00 98.2 60 20 135/72 (93) 97 03/23/20 09:00 Room Air 03/23/20 06:51 21 03/18/20 10:24 2.0 Laboratory Tests Test 03/23/20 05:35 White Blood Count 24.6 K/UL (4.8-10.8) *H Red Blood Count 4.40 M/UL (4.70-6.10) L Hemoglobin 11.3 G/DL (14.2-18.0) L Hematocrit 35.6 % (42.0-52.0) L Mean Corpuscular Volume 81 FL (80-99) Mean Corpuscular Hemoglobin 25.7 PG (27.0-31.0) L Mean Corpuscular Hemoglobin Concent 31.7 G/DL (32.0-36.0) L Red Cell Distribution Width 16.1 % (11.6-14.8) H Platelet Count 299 K/UL (150-450) Mean Platelet Volume 6.4 FL (6.5-10.1) L Neutrophils (%) (Auto) % (45.0-75.0) Lymphocytes (%) (Auto) % (20.0-45.0) Monocytes (%) (Auto) % (1.0-10.0) Eosinophils (%) (Auto) % (0.0-3.0) Basophils (%) (Auto) % (0.0-2.0) Differential Total Cells Counted 100 Neutrophils % (Manual) 91 % (45-75) H Lymphocytes % (Manual) 5 % (20-45) L Monocytes % (Manual) 3 % (1-10) Eosinophils % (Manual) 1 % (0-3) Basophils % (Manual) 0 % (0-2) Band Neutrophils 0 % (0-8) Platelet Estimate Adequate Platelet Morphology Normal Hypochromasia 1+ Anisocytosis 1+ Erythrocyte Sedimentation Rate 79 MM/HR (0-20) H Sodium Level 141 MMOL/L (136-145) Potassium Level 4.3 MMOL/L (3.5-5.1) Chloride Level 107 MMOL/L (98-107) Carbon Dioxide Level 28 MMOL/L (21-32) Anion Gap 6 mmol/L (5-15) Blood Urea Nitrogen 6 mg/dL (7-18) L Creatinine 1.0 MG/DL (0.55-1.30) Estimat Glomerular Filtration Rate > 60 mL/min (>60) Glucose Level 95 MG/DL (74-106) Calcium Level 8.5 MG/DL (8.5-10.1) Phosphorus Level 2.8 MG/DL (2.5-4.9) Magnesium Level 1.5 MG/DL (1.8-2.4) L Total Bilirubin 0.7 MG/DL (0.2-1.0) Aspartate Amino Transf (AST/SGOT) 16 U/L (15-37) Alanine Aminotransferase (ALT/SGPT) 18 U/L (12-78) Alkaline Phosphatase 69 U/L (46-116) C-Reactive Protein, Quantitative 6.8 mg/dL (0.00-0.90) H Total Protein 6.1 G/DL (6.4-8.2) L Albumin 1.6 G/DL (3.4-5.0) L Globulin 4.5 g/dL Albumin/Globulin Ratio 0.4 (1.0-2.7) L Intake and Output 03/22/20 03/23/20 19:00 07:00 Intake Total 375.0 ml 910.0 ml Output Total 2000 ml 1500 ml Balance -1625.0 ml -590.0 ml Intake Oral 320 ml 100 ml IV Total 55.0 ml 810.0 ml Output Urine Total 2000 ml 1500 ml Objective General: No acute distress, awake and responsive. HEENT: NCAT, sclera anicteric, PERRL, EOMI. Neck: Supple, no significant jugular venous distention, Lungs: Fair inspiratory effort, decreased air at the bases, no Wheeze or Rales. Heart: Regular rate and rhythm, normal S1/S2, no murmurs. Abdomen: soft, nontender, Mild distended. Normoactive bowel sounds. : Robertson catheter with irrigation, bloody urine Extremities: No Cyanosis, clubbing or edema. Neuro: A&O x 2, Able to move all extremities , CN 2-12 intact.. Skin: warm, no rashes Assessment/Plan Assessment/Plan ASSESSMENT: This is an 84-year-old male. 1. Chest pain. 2. Elevated troponin level. 3. Bladder cancer. 4. Gastritis. 5. Hypertension. 6. Diabetes type 2. 7. Atrioventricular conduction defect. 8. Alzheimer's dementia. 9. Cerebrovascular disease. 10. Right hemiplegia. 11. Pacemaker in situ. 12. Urinary tract infection=ESBL E. Coli 13. Persistant leukocytosis most likely secondary to UTI/pyelonephritis. TREATMENT: 1. Chest pain/elevated troponin. A Cardiology consultation has been obtained with Dr. Nj Valenzuela. We will follow recommendations of Cardiology. 2. Bladder cancer. CT=bladder mass increased in size from prior. Urology= Dr. Macho Allen. The patient is status post transurethral resection of bladder tumor x2. We will follow recommendations of Urology. 3. Gastritis. Continue Protonix as above. 4. Hypertension. 5. Diabetes type 2. A NovoLog sliding scale has been instituted. 6. Atrioventricular conduction defect. The patient is status post pacemaker implantation. 7. Alzheimer's dementia. 8. Cerebrovascular disease, status post cerebrovascular accident. 9. Right hemiplegia. 10. ABX=Zosyn Last dose today DC planning to SN[facility] with [facility] bladder cancer , poor prognosis Jaziel Lowe MD Mar 23, 2020 13:49
[2020-03-23] MEDS: D5NS 1,000 ML IV SCH ×2 (14:00→20:26)
--- NOTE | 2020-03-23 14:01 | Pulmonology Progress Note ---
Subjective ROS Limited/Unobtainable: No Interval Events: c/o dry sking Constitutional: Reports: no symptoms HEENT: Repors: no symptoms Respiratory: Reports: no symptoms Allergies: Coded Allergies: No Known Allergies (Unverified , 04/09/16) Objective Last 24 Hour Vital Signs Date Time Temp Pulse Resp B/P (MAP) Pulse Ox O2 Delivery O2 Flow Rate FiO2 03/23/20 12:00 98.2 60 20 135/72 (93) 97 03/23/20 09:00 Room Air 03/23/20 08:33 72 132/65 03/23/20 08:00 98.9 60 21 132/65 (87) 97 03/23/20 06:51 61 16 98 Room Air 21 03/23/20 04:00 97.5 60 18 130/70 (90) 100 03/23/20 00:00 96.4 60 18 129/62 (84) 99 03/22/20 21:00 Room Air 03/22/20 20:00 97.9 61 18 134/66 (88) 99 03/22/20 19:30 64 18 97 Room Air 21 03/22/20 17:05 60 123/62 03/22/20 16:00 97.5 60 18 123/62 (82) 98 Intake and Output 03/22/20 03/23/20 19:00 07:00 Intake Total 375.0 ml 910.0 ml Output Total 2000 ml 1500 ml Balance -1625.0 ml -590.0 ml Intake Oral 320 ml 100 ml IV Total 55.0 ml 810.0 ml Output Urine Total 2000 ml 1500 ml General Appearance: cachetic HEENT: normocephalic, atraumatic Respiratory: chest wall non-tender, lungs clear, normal breath sounds, no respiratory distress Cardiovascular: normal peripheral pulses, normal rate, regular rhythm Abdomen: normal bowel sounds, soft, non tender, no organomegaly Genitourinary: normal external genitalia Extremities: no clubbing Skin: no rash 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 Lymphatic: no neck adenopathy Laboratory Tests 03/23/20 05:35: White Blood Count 24.6*H, Red Blood Count 4.40L, Hemoglobin 11.3L, Hematocrit 35.6L, Mean Corpuscular Volume 81, Mean Corpuscular Hemoglobin 25.7L, Mean Corpuscular Hemoglobin Concent 31.7L, Red Cell Distribution Width 16.1H, Platelet Count 299, Mean Platelet Volume 6.4L, Neutrophils (%) (Auto) , Lymphocytes (%) (Auto) , Monocytes (%) (Auto) , Eosinophils (%) (Auto) , Basophils (%) (Auto) , Differential Total Cells Counted 100, Neutrophils % ( Manual) 91H, Lymphocytes % (Manual) 5L, Monocytes % (Manual) 3, Eosinophils % ( Manual) 1, Basophils % (Manual) 0, Band Neutrophils 0, Platelet Estimate Adequate, Platelet Morphology Normal, Hypochromasia 1+, Anisocytosis 1+, Erythrocyte Sedimentation Rate 79H, Sodium Level 141, Potassium Level 4.3, Chloride Level 107, Carbon Dioxide Level 28, Anion Gap 6, Blood Urea Nitrogen 6L , Creatinine 1.0, Estimat Glomerular Filtration Rate > 60, Glucose Level 95, Calcium Level 8.5, Phosphorus Level 2.8, Magnesium Level 1.5L, Total Bilirubin 0.7, Aspartate Amino Transf (AST/SGOT) 16, Alanine Aminotransferase (ALT/SGPT) 18, Alkaline Phosphatase 69, C-Reactive Protein, Quantitative 6.8H, Total Protein 6.1L, Albumin 1.6L, Globulin 4.5, Albumin/Globulin Ratio 0.4L Current Medications Medications (Trade) Dose Ordered Sig/Levi Route PRN Reason Start Time Stop Time Status Last Admin Dose Admin Acetaminophen (Tylenol) 650 mg Q4H PRN ORAL fever (T>100.5F) 03/18/20 16:45 04/09/20 04:44 Atorvastatin Calcium (Lipitor) 20 mg BEDTIME ORAL 03/18/20 21:00 06/09/20 20:59 03/22/20 21:53 Dextrose (Dextrose 50%) 25 ml Q30M PRN IV Hypoglycemia 03/18/20 16:30 06/11/20 04:59 03/23/20 12:52 Dextrose (Dextrose 50%) 50 ml Q30M PRN IV Hypoglycemia 03/18/20 16:30 06/08/20 14:29 Dextrose/Sodium Chloride 1,000 ml @ 75 mls/hr [id number] IV 03/23/20 14:00 04/22/20 13:59 Finasteride (Proscar) 5 mg DAILY ORAL 03/19/20 09:00 06/09/20 08:59 03/23/20 08:33 Insulin Aspart (NovoLOG) No Dose BEFORE MEALS AND HS SUBQ 03/18/20 16:30 06/15/20 06:29 03/19/20 16:39 Lidocaine HCl (Xylocaine Jelly 2%) 1 applic DAILYPRN PRN TOPIC for pain in penile region 03/18/20 16:30 06/16/20 16:29 Metoprolol Tartrate (Lopressor) 12.5 mg BID ORAL 03/18/20 18:00 06/08/20 21:59 03/23/20 08:33 Nateglinide (Starlix) 120 mg DAILY ORAL 03/19/20 09:00 04/10/20 08:59 03/23/20 08:33 Nitroglycerin (Ntg) 0.4 mg Q5M PRN SL Prn Chest Pain 03/18/20 16:30 04/09/20 14:29 Ondansetron HCl (Zofran) 4 mg Q6H PRN IVP Nausea & Vomiting 03/18/20 16:45 04/09/20 04:44 Piperacillin Sod/ Tazobactam Sod 3.375 gm/Sodium Chloride 110 ml @ 27.5 mls/hr EVERY 8 HOURS IVPB 03/18/20 22:00 03/25/20 23:59 03/23/20 13:16 Polyethylene Glycol (Miralax) 17 gm DAILYPRN PRN ORAL Constipation 03/18/20 16:31 04/17/20 16:30 Tamsulosin HCl (Flomax) 0.4 mg BEDTIME ORAL 03/18/20 21:00 04/09/20 20:59 03/22/20 21:53 Assessment/Plan Problems: (1) Sepsis (2) Urethral fistula (3) UTI (urinary tract infection) (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
--- NOTE | 2020-03-23 14:17 | NUR ---
CASE MANAGEMENT:REVIEW SI;N-STEMI. SEPSIS. UTI. MDRO. 98.9 72 21 135/72 97% ON RA WBC 24.6 H/H 11.3/35.6 MAG 1.5 CRP 6.8 ALB 1.6 IS;IVF D5W @ 75 ML/HR ZOSYN IV Q8 FLOMAX PO HS PROSCAR PO QD LOPRESSOR PO BID INSULIN NOVOLOG SUBQ STARLIX PO QD MED SURG STATUS DCP;FROM [facility]
[2020-03-23] MEDS ORDERED: Iothalamate Meglumine 60% 30ML INJ ONE (14:33)
[2020-03-23] MEDS ORDERED: LR 1000ml ONE (15:00)
[2020-03-23] MEDS ORDERED: Sterile Water Irrig 1000ml IRRIG ONE (15:00)
[2020-03-23] MEDS ORDERED: NS Irrig 1000ml ONE (15:00)
[2020-03-23] MEDS ORDERED: NS Irrig 2000ml IRRIG ONE ×2 (15:00→16:20)
[2020-03-23] MEDS ORDERED: Rocuronium Bromide 50mg/5ml Inj IV ONE ×2 (15:17→17:08)
[2020-03-23] MEDS ORDERED: fentaNYL 100 mcg/2 mL IV ONE ×2 (15:44→16:23)
--- NOTE | 2020-03-23 16:23 | NUR ---
NURSE HAND-OFF: Important Events on Shift: PT IS IN SURGERY Patient Status: IN SURGERY Diet: CCHO MED Pending Orders: NA Pending Results/Labs:NA Pending MD notification:NA Latest Vital Signs: Temperature 98.2 , Pulse 60 , B/P 135 /72 , Respiratory Rate 20 , O2 SAT 97 , Room Air, O2 Flow Rate . Vital Sign Comment: NA Latest Damon Fall Score: 50 Fall Risk: High Risk Safety Measures: Call light Within Reach, Bed Alarm Zone 1, Side Rails Side Rails x3, Bed position Low and Locked. Fall Precautions: Yellow Socks Yellow Gown Door Sign Patient Fall Education Report given to PADMAJA MARLEY.
[2020-03-23] MEDS ORDERED: ePHEDrine 50mg/ml Inj ONE (17:38)
[2020-03-23] MEDS ORDERED: Neostigmine 1mg/ml 10ml Inj ONE (17:38)
[2020-03-23] MEDS ORDERED: Esmolol 100mg/10ml Inj ONE (17:38)
[2020-03-23] MEDS ORDERED: Glycopyrrolate 0.2mg/ml 1ml Vial ONE (17:38)
[2020-03-23] MEDS ORDERED: Lidocaine 1% MPF 10mg/ml 5ml ONE (17:38)
[2020-03-23] MEDS ORDERED: Phenylephrine 10mg/ml Vial ONE (17:38)
[2020-03-23] MEDS ORDERED: Hydromorphone 0.5mg/0.5ml inj IVP PRN (17:45)
--- NOTE | 2020-03-23 18:04 | Brief Operative Note ---
Immediate Post Operative Note Operative Note Pre-op Diagnosis: hematuria, bladder ca, hydro Procedure: cysto, TURBT, extensive fulguration of bladder tumor, removal and exchange of left ureteral stent Post-op Diagnosis: same as pre-op Findings: other - extensive tumor invloving most of bladder with diffuse bleeding/oozing, left ureteral stent exchanged Surgeon: renetta Anesthesiologist: hermann Anesthesia: general Specimen: yes Complications: none Condition: stable Fluids: NS Estimated Blood Loss: volume - 50 cc Implant(s) used?: Yes - 7f x 26 cm left ureteral JJ stent Macho Allen MD Mar 23, 2020 18:04
--- NOTE | 2020-03-23 18:12 | Immediate Post-Op Evaluation ---
Immediate Post-Op Evalulation Immediate Post-Op Evalulation Procedure: Turp Date of Evaluation: Mar 23, 2020 Time of Evaluation: 18:11 IV Fluids: 1000 Blood Pressure Systolic: 146 Blood Pressure Diastolic: 72 Pulse Rate: 84 Respiratory Rate: 14 O2 Sat by Pulse Oximetry: 99 Temperature (Fahrenheit): 97.4 Nausea: No Vomiting: No Patient Status: awake, reacts, patent Hydration Status: adequate Drug: none Kym Mehta CRNA Mar 23, 2020 18:12
--- NOTE | 2020-03-23 19:31 | NUR ---
NURSE HAND-OFF: Important Events on Shift: Patient still in surgery; post-op orders noted and endorsed Patient Status: In surgery Diet: Resume CCHO mechanical soft ground, NTL Pending Orders: Resume all pre-op meds Pending Results/Labs: CBC, BMP 8/15 AM Pending MD notification:None Latest Vital Signs: Temperature 97.4 , Pulse 82 , B/P 148 /70 , Respiratory Rate 12 , O2 SAT 99 , Room Air, O2 Flow Rate 6 . Vital Sign Comment: Latest Damon Fall Score: 50 Fall Risk: High Risk Safety Measures: Call light Within Reach, Bed Alarm Zone 1, Side Rails Side Rails x3, Bed position Low and Locked. Fall Precautions: Yellow Socks Yellow Gown Door Sign Patient Fall Education Report given to DONELL Sibley.
--- NOTE | 2020-03-23 20:10 | NUR ---
NURSE NOTES: Patient received from PACU. On [address] way hernandez with CBI, secured to left thigh. light pink urine in the tubing, bright red output in the bag. Will continue to titrate to keep output light. On o2 via NC at 3LPM. No acute distress Will continue plan of care.
[2020-03-23] MEDS: Atorvastatin 20mg tab ORAL SCH (20:58)
[2020-03-23] MEDS: Tamsulosin 0.4mg cap ORAL SCH (20:58)
--- NOTE | 2020-03-23 22:00 | Operative Note - Dictated ---
DATE OF OPERATION: 03/23/2020 PREOPERATIVE DIAGNOSES: Advanced bladder tumor, hematuria, multidrug-resistant UTI, left-sided hydronephrosis, history with indwelling stent. POSTOPERATIVE DIAGNOSES: Advanced bladder tumor, hematuria, multidrug-resistant UTI, left-sided hydronephrosis, history with indwelling stent. PROCEDURE PERFORMED: Cystoscopy with transurethral resection of bladder tumor and extensive fulguration of bladder tumor, removal and exchange of left ureteral stent. OPERATING SURGEON: Macho Allen MD. ANESTHESIOLOGIST: Kym Mehta CRNA. ANESTHESIA: General. INDICATION FOR PROCEDURE: This is an unfortunate 84-year-old male. He has a history of advanced bladder cancer. Has had previous resections and fulgurations. He has a history of hydronephrosis secondary to cancer with an indwelling ureteral stent that was last exchanged about 4 months ago. He was admitted to the hospital with gross hematuria and anemia and has required multiple blood transfusions. He has been on bladder irrigation for hematuria and again he has he has had persistent oozing from his bladder tumor. He had a CT that showed extensive tumor involvement of his bladder with left hydronephrosis, which is chronic. He was also noted to have a MDR UTI. He is status post course of antibiotics. He has had significant leukocytosis. We had an extensive discussion with the primary service as well as the patient's son who is the decision maker and because of the fact that he had continued hematuria requiring transfusions, decision was made to go in and try to see if we can control some of the bleeding. He has also had a MDR UTI. He is status post antibiotic course. He has had persistent leukocytosis. I did tell the patient's son that because of the patient's advanced age and comorbidities, it is a high risk procedure with risk of persistent bleeding, infection, cardiovascular event, even . Consent was obtained. All his questions were answered. No guarantees were given or implied. FINDINGS: The patient had extensive tumor involvement of his bladder, which covered most of the bladder, mostly on the left side, anterior and posterior with clots. He had diffuse oozing from the surface of the bladder. Visualization was extremely difficult. I basically resected any area that I felt was safe to resect and most of the rest of the areas of diffuse oozing were all extensively cauterized. I was able to change the left ureteral stent. PROCEDURE IN DETAIL: Informed consent was obtained from the patient's son. Patient was brought to the operative room and placed in supine pressure. After successful general anesthesia was induced, the patient was placed in a modified dorsal lithotomy position. Genitalia was then prepped and draped in usual fashion. Patient had been on preoperative IV antibiotics on the floor. Time-out was performed. At this point, the resectoscope sheath was inserted with visual waste machine operator. I inspected the bladder carefully. There was tumor involvement of most of the bladder. Basically unable to see an obvious trigone. Unable to see a right ureteral orifice. I could barely see the indwelling stent. The entire left side of the bladder, anterior and posterior on the right side that was completely covered by tumor, which was oozing. Because of his anatomy, I was not able to even reach the back of the bladder with the scope. Basically, I decided to resect in distal part of the bladder near the bladder neck any fluffy or oozing area because that area I was able to control, but the rest of it posteriorly I was not even able to reach and I did not feel safe that it would be resectable. As such, I did extensive cauterization of the entire surface of the bladder oozing with the button of the bipolar electrode. Again any area that was oozing or fluffy tumor was cauterized. I spent about an hour cauterizing the entire surface until there was no obvious major bleeding or oozing, but again the visualization was very difficult and access to some areas of the tumors was also very difficult. I was able to identify the stent. Once fair to good hemostasis was obtained, I pulled the stent out through the meatus, passed a wire through it, left the wire as a safety wire, which was loaded over cystoscope, and a new 7-Bruneian x 26 cm double-J stent was then passed up in the collecting system with fluoroscopic and visual guidance in good position. I again looked at the bladder and again there was persistent diffuse oozing and I cauterized anything that I could see at which time, a three-way Robertson catheter was placed, which was 26-Bruneian and CBI started. The patient will need to be monitored and if he continues to have bleeding, he may need higher level of care and also possible embolization to control the bleeding in the bladder. Blood loss was 50 mL. No complications. Macho Allen M.D. DR: PATRIC JOB#: [id number] CC:
[2020-03-24] VITALS: BP 92/48
[2020-03-24 04:00] VITALS: BP 99/46
[2020-03-24] MEDS: NovoLOG Insulin Flexpen SUBQ SCH ×4 (06:00→20:58)
--- NOTE | 2020-03-24 07:20 | NUR ---
NURSE NOTES: received patient resting comfortably in bed, awake,no sign of distress, O2 AT 2 lpm via NC, IVF patent and infusing well. On [address] way hernandez with CBI on going, light pink urine noted, Will continue to titrate to keep output light. On fall and aspiration precaution, 4 P's in progress call light w/n rweach, Will continue plan of care husam robbins
--- NOTE | 2020-03-24 07:37 | NUR ---
NURSE HAND-OFF: Important Events on Shift:[continuous CBI with light pink urine; slept for most of the shift, ] Patient Status: [stable] Diet: [CCHO medium mech soft ground, nectar thick liquid] Pending Orders: [n/a] Pending Results/Labs:[cbc bmp] Pending MD notification:[n/a] Latest Vital Signs: Temperature 99.3 , Pulse 66 , B/P 99 /46 , Respiratory Rate 18 , O2 SAT 99 , Nasal Cannula, O2 Flow Rate 3.0 . Vital Sign Comment: [had low grade fever 99.3, BP on the low side] Latest Damon Fall Score: 50 Fall Risk: High Risk Safety Measures: Call light Within Reach, Bed Alarm Zone 1, Side Rails Side Rails x3, Bed position Low and Locked. Fall Precautions: bed ridden Yellow Socks Yellow Gown Door Sign Patient Fall Education Report given to [Mayra RN].
[2020-03-24 07:53] LABS: HEMATOCRIT 30.4 % (42.0-52.0); HEMOGLOBIN 9.7 G/DL (14.2-18.0); MEAN CORPUSCULAR VOLUME 82 FL (80-99); PLATELET COUNT 247 K/UL (150-450); RED BLOOD COUNT 3.72 M/UL (4.70-6.10); RED CELL DISTRIBUTION WIDTH 16.4 % (11.6-14.8)
[2020-03-24 08:01] LABS: WHITE BLOOD COUNT 26.5 K/UL (4.8-10.8)
[2020-03-24 08:10] VITALS: BP 101/50
[2020-03-24] MEDS: Metoprolol Tartrate 12.5mg TAB ORAL SCH ×2 (08:17→17:08)
--- NOTE | 2020-03-24 08:32 | Hematology/Onc Progress Note ---
Assessment/Plan Assessment/Plan # Bladder cancer extensive stage, WORSENED with PD1+ on biopsy from 12/2018 results, iintially with L hydronephrosis/L Hydroureter 2ry to extensive bladder tumor, that is extensive stage. 11/25 SP Cystoscopy, urethral calibration , transurethral resection of extensive bladder tumor with fulguration, and right retrograde pyelogram. Findings: The patient had what appeared to be a large bladder tumor that involved most of the left side of the bladder extending posteriorly and completely obliterating the left ureteral orifice. Seen by urology --> CT abd/p: Limited assessment of the GI tract, due to lack of enteric contrast administration. Moderate left hydronephrosis and hydroureter. Hydroureter extends to the bladder, where there is asymmetric posterolateral wall thickening raises concern for neoplasm. There is also generalized wall thickening, possibly on the basis of cystitis or chronic bladder outlet obstruction. No definite findings to suggest etiology of stated clinical history of GI bleed. Cholelithiasis. Basilar pulmonary atelectasis and equivocal slight interstitial congestion. L1 vertebral body compression fracture deformity, age indeterminate. --> appreciate urology recs, pulm recs --> 12/31/18: s/p stent placement --> CT A/P 03/2020 Mass within the bladder increased in size since previous examination. Presumably this represents bladder neoplasm. Air is also noted within the bladder and the possibility of bladder infection or internal fistula to the bladder should b considered. Left hydronephrosis and with air in the left renal collecting system. There is a left ureteral stent. The air likely is coming from the bladder but the possibility of infection again is not excluded. --> is now s/p TURB resection x 2 --> urology and pcp followup # Anemia due to hematuira --> appreciate gi recs, in prior endoscopy negatve --> for hematuria is on AMICAR --> anemia panel has been reviewed before --> 3 way hernandez with irrigation --> transfuse if hgb <7 --> per uro recs --> hgb trend 9.5-->7.9-->11->9.7 ==> may need iv iron # Leukocytosis is likely due to malignancy and esbl uti --> on abx meropenem-->zosyn --> wbc 24-->25->27 --> per id # Hydronephrosis --> s/p stent placement # Chronic cerebrovascular accident (CVA) --> per neuro as needed # Diabetes mellitus II --> accuchecks qac and qhs --> insulin coverage as needed # Alzheimer's dementia # 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 Greatly appreciate consultation! Subjective Constitutional: Denies: no symptoms, chills, fever, malaise, weakness, other HEENT: Denies: no symptoms, eye pain, blurred vision, tearing, double vision, ear pain, ear discharge, nose pain, nose congestion, throat pain, throat swelling, mouth pain, mouth swelling, other Cardiovascular: Denies: no symptoms, chest pain, edema, irregular heart rate, lightheadedness, palpitations, syncope, other Respiratory: Denies: no symptoms, cough, shortness of breath, SOB with excertion, SOB at rest, sputum, wheezing, other Gastrointestinal/Abdominal: Denies: no symptoms, abdomen distended, abdominal pain, black stools, tarry stools, blood in stool, constipated, diarrhea, difficulty swallowing, nausea, poor appetite, poor fluid intake, rectal bleeding , vomiting, other Genitourinary: Denies: no symptoms, burning, discharge, frequency, flank pain, hematuria, incontinence, pain, urgency, other 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: Denies: no symptoms, anxiety, depressed, emotional problems, headache, numbness, paresthesia, pre-existing deficit, seizure, tingling, tremors, weakness, other Endocrine: Denies: no symptoms, excessive sweating, flushing, intolerance to cold, intolerance to heat, increased hunger, increased thirst, increased urine, unexplained weight gain, unexplained weight loss, other Allergies: Coded Allergies: No Known Allergies (Unverified , 04/09/16) Subjective 03/23 remains on cbi, no bleeding, wbc 25k, abx prn, is on zosyn 03/24 urine remains light pink, without bleeding, high wbc, on abx, seen by uro Objective Objective Current Medications Medications (Trade) Dose Ordered Sig/Levi Route PRN Reason Start Time Stop Time Status Last Admin Dose Admin Acetaminophen (Tylenol) 650 mg Q4H PRN ORAL fever (T>100.5F) 03/18/20 16:45 04/09/20 04:44 Atorvastatin Calcium (Lipitor) 20 mg BEDTIME ORAL 03/18/20 21:00 06/09/20 20:59 03/23/20 20:58 Dextrose (Dextrose 50%) 25 ml Q30M PRN IV Hypoglycemia 03/18/20 16:30 06/11/20 04:59 03/23/20 12:52 Dextrose (Dextrose 50%) 50 ml Q30M PRN IV Hypoglycemia 03/18/20 16:30 06/08/20 14:29 Dextrose/Sodium Chloride 1,000 ml @ 75 mls/hr [id number] IV 03/23/20 14:00 04/22/20 13:59 03/23/20 20:26 Finasteride (Proscar) 5 mg DAILY ORAL 03/19/20 09:00 06/09/20 08:59 03/24/20 08:17 Insulin Aspart (NovoLOG) No Dose BEFORE MEALS AND HS SUBQ 03/18/20 16:30 06/15/20 06:29 03/24/20 06:00 Lidocaine HCl (Xylocaine Jelly 2%) 1 applic DAILYPRN PRN TOPIC for pain in penile region 03/18/20 16:30 06/16/20 16:29 Metoprolol Tartrate (Lopressor) 12.5 mg BID ORAL 03/18/20 18:00 06/08/20 21:59 03/24/20 08:17 Nateglinide (Starlix) 120 mg DAILY ORAL 03/19/20 09:00 04/10/20 08:59 03/24/20 08:17 Nitroglycerin (Ntg) 0.4 mg Q5M PRN SL Prn Chest Pain 03/18/20 16:30 04/09/20 14:29 Ondansetron HCl (Zofran) 4 mg Q6H PRN IVP Nausea & Vomiting 03/18/20 16:45 04/09/20 04:44 Polyethylene Glycol (Miralax) 17 gm DAILYPRN PRN ORAL Constipation 03/18/20 16:31 04/17/20 16:30 Tamsulosin HCl (Flomax) 0.4 mg BEDTIME ORAL 03/18/20 21:00 04/09/20 20:59 03/23/20 20:58 Last 24 Hour Vital Signs Date Time Temp Pulse Resp B/P (MAP) Pulse Ox O2 Delivery O2 Flow Rate FiO2 03/24/20 08:17 66 99/46 03/24/20 04:00 99.3 66 18 99/46 (63) 99 03/24/20 00:00 98.1 69 16 92/48 (63) 99 03/23/20 21:00 Nasal Cannula 3.0 03/23/20 19:45 97.1 82 12 147/84 99 Nasal Cannula 3 03/23/20 19:30 82 12 169/101 99 Nasal Cannula 3 03/23/20 19:10 82 12 181/89 99 Nasal Cannula 3 03/23/20 19:06 82 16 98 Nasal Cannula 3.0 32 03/23/20 18:55 82 12 148/70 99 Nasal Cannula 3 03/23/20 18:40 79 15 134/68 99 Nasal Cannula 3 03/23/20 18:25 85 16 143/63 99 Nasal Cannula 3 03/23/20 18:15 82 14 139/63 100 Simple Mask 6 03/23/20 18:12 84 14 99 03/23/20 18:10 81 16 137/72 100 Simple Mask 6 03/23/20 18:05 82 18 148/70 100 Simple Mask 6 03/23/20 18:00 97.4 76 12 149/75 100 Simple Mask 6 03/23/20 12:00 98.2 60 20 135/72 (93) 97 03/23/20 09:00 Room Air 03/23/20 08:33 72 132/65 03/23/20 08:00 98.9 60 21 132/65 (87) 97 03/23/20 06:51 61 16 98 Room Air 21 03/23/20 04:00 97.5 60 18 130/70 (90) 100 03/23/20 00:00 96.4 60 18 129/62 (84) 99 03/22/20 21:00 Room Air 03/22/20 20:00 97.9 61 18 134/66 (88) 99 03/22/20 19:30 64 18 97 Room Air 21 03/22/20 17:05 60 123/62 03/22/20 16:00 97.5 60 18 123/62 (82) 98 03/22/20 12:00 97.3 60 18 138/66 (90) 100 03/22/20 09:00 Room Air Intake and Output 03/23/20 03/24/20 19:00 07:00 Intake Total 1000 ml 1075.0 ml Output Total 1600 ml Balance 1000 ml -525.0 ml Intake Oral 100 ml IV Total 1000 ml 975.0 ml Output Urine Total 1600 ml Labs Test 03/21/20 11:27 03/21/20 16:56 03/22/20 10:00 03/22/20 11:19 POC Whole Blood Glucose 97 MG/DL (74-106) 95 MG/DL (74-106) 85 MG/DL (74-106) White Blood Count 24.5 K/UL (4.8-10.8) Red Blood Count 4.38 M/UL (4.70-6.10) Hemoglobin 11.5 G/DL (14.2-18.0) Hematocrit 35.6 % (42.0-52.0) Mean Corpuscular Volume 81 FL (80-99) Mean Corpuscular Hemoglobin 26.2 PG (27.0-31.0) Mean Corpuscular Hemoglobin Concent 32.2 G/DL (32.0-36.0) Red Cell Distribution Width 16.1 % (11.6-14.8) Platelet Count 238 K/UL (150-450) Mean Platelet Volume 5.9 FL (6.5-10.1) Neutrophils (%) (Auto) % (45.0-75.0) Lymphocytes (%) (Auto) % (20.0-45.0) Monocytes (%) (Auto) % (1.0-10.0) Eosinophils (%) (Auto) % (0.0-3.0) Basophils (%) (Auto) % (0.0-2.0) Differential Total Cells Counted 100 Neutrophils % (Manual) 92 % (45-75) Lymphocytes % (Manual) 5 % (20-45) Monocytes % (Manual) 3 % (1-10) Eosinophils % (Manual) 0 % (0-3) Basophils % (Manual) 0 % (0-2) Band Neutrophils 0 % (0-8) Platelet Estimate Adequate Platelet Morphology Normal Anisocytosis 1+ Sodium Level 137 MMOL/L (136-145) Potassium Level 4.1 MMOL/L (3.5-5.1) Chloride Level 106 MMOL/L (98-107) Carbon Dioxide Level 22 MMOL/L (21-32) Anion Gap 9 mmol/L (5-15) Blood Urea Nitrogen 7 mg/dL (7-18) Creatinine 0.9 MG/DL (0.55-1.30) Estimat Glomerular Filtration Rate > 60 mL/min (>60) Glucose Level 91 MG/DL (74-106) Calcium Level 8.5 MG/DL (8.5-10.1) Test 03/23/20 05:35 03/23/20 12:08 03/23/20 12:44 03/23/20 13:19 White Blood Count 24.6 K/UL (4.8-10.8) Red Blood Count 4.40 M/UL (4.70-6.10) Hemoglobin 11.3 G/DL (14.2-18.0) Hematocrit 35.6 % (42.0-52.0) Mean Corpuscular Volume 81 FL (80-99) Mean Corpuscular Hemoglobin 25.7 PG (27.0-31.0) Mean Corpuscular Hemoglobin Concent 31.7 G/DL (32.0-36.0) Red Cell Distribution Width 16.1 % (11.6-14.8) Platelet Count 299 K/UL (150-450) Mean Platelet Volume 6.4 FL (6.5-10.1) Neutrophils (%) (Auto) % (45.0-75.0) Lymphocytes (%) (Auto) % (20.0-45.0) Monocytes (%) (Auto) % (1.0-10.0) Eosinophils (%) (Auto) % (0.0-3.0) Basophils (%) (Auto) % (0.0-2.0) Differential Total Cells Counted 100 Neutrophils % (Manual) 91 % (45-75) Lymphocytes % (Manual) 5 % (20-45) Monocytes % (Manual) 3 % (1-10) Eosinophils % (Manual) 1 % (0-3) Basophils % (Manual) 0 % (0-2) Band Neutrophils 0 % (0-8) Platelet Estimate Adequate Platelet Morphology Normal Hypochromasia 1+ Anisocytosis 1+ Erythrocyte Sedimentation Rate 79 MM/HR (0-20) Sodium Level 141 MMOL/L (136-145) Potassium Level 4.3 MMOL/L (3.5-5.1) Chloride Level 107 MMOL/L (98-107) Carbon Dioxide Level 28 MMOL/L (21-32) Anion Gap 6 mmol/L (5-15) Blood Urea Nitrogen 6 mg/dL (7-18) Creatinine 1.0 MG/DL (0.55-1.30) Estimat Glomerular Filtration Rate > 60 mL/min (>60) Glucose Level 95 MG/DL (74-106) Calcium Level 8.5 MG/DL (8.5-10.1) Phosphorus Level 2.8 MG/DL (2.5-4.9) Magnesium Level 1.5 MG/DL (1.8-2.4) Total Bilirubin 0.7 MG/DL (0.2-1.0) Aspartate Amino Transf (AST/SGOT) 16 U/L (15-37) Alanine Aminotransferase (ALT/SGPT) 18 U/L (12-78) Alkaline Phosphatase 69 U/L (46-116) C-Reactive Protein, Quantitative 6.8 mg/dL (0.00-0.90) Total Protein 6.1 G/DL (6.4-8.2) Albumin 1.6 G/DL (3.4-5.0) Globulin 4.5 g/dL Albumin/Globulin Ratio 0.4 (1.0-2.7) POC Whole Blood Glucose 138 MG/DL (74-106) Test 03/23/20 20:56 03/24/20 05:57 03/24/20 07:30 POC Whole Blood Glucose 144 MG/DL (74-106) White Blood Count 26.5 K/UL (4.8-10.8) Red Blood Count 3.72 M/UL (4.70-6.10) Hemoglobin 9.7 G/DL (14.2-18.0) Hematocrit 30.4 % (42.0-52.0) Mean Corpuscular Volume 82 FL (80-99) Mean Corpuscular Hemoglobin 26.2 PG (27.0-31.0) Mean Corpuscular Hemoglobin Concent 32.1 G/DL (32.0-36.0) Red Cell Distribution Width 16.4 % (11.6-14.8) Platelet Count 247 K/UL (150-450) Mean Platelet Volume 5.4 FL (6.5-10.1) Neutrophils (%) (Auto) % (45.0-75.0) Lymphocytes (%) (Auto) % (20.0-45.0) Monocytes (%) (Auto) % (1.0-10.0) Eosinophils (%) (Auto) % (0.0-3.0) Basophils (%) (Auto) % (0.0-2.0) Height (Feet): 5 Height (Inches): 7.00 Weight (Pounds): 185 Objective Physical Exam: Vitals: reviewed General: NAD HEENT: nc, at Neck: supple Chest: clear breath sounds bilaterally Cardiovascular: RRR, no s3, s4 Abdomen: soft, nontender, nd Extremities: no cce, normal range of motion Neuro: alet : +++Pierce Chávez MD Mar 24, 2020 08:32
[2020-03-24 09:13] LABS: ANION GAP 8 mmol/L (5-15); BLOOD UREA NITROGEN 6 mg/dL (7-18); CALCIUM 7.9 MG/DL (8.5-10.1); CARBON DIOXIDE 24 MMOL/L (21-32); CHLORIDE 109 MMOL/L (98-107); CREATININE 1.2 MG/DL (0.55-1.30); POTASSIUM 4.1 MMOL/L (3.5-5.1); SODIUM 141 MMOL/L (136-145)
--- NOTE | 2020-03-24 09:34 | Urology Progress Note ---
Assessment/Plan Assessment/Plan: 1. Gross hematuria. 2. Bladder cancer history with enlarging bladder mass. 3. Left-sided hydro, which is chronic. 4. BPH history. 5. Urinary retention. 6. UTI. 7. Proteinuria. 8. Neurogenic bladder. 9. POD # 1, TURBT, fulguration, exchange of left ureteral stent maintain hernandez, 3-way replaced 03/23 CBI, titrate rate to keep clear hernandez hand irrigated and do PRN occasional small clots noted s/p abx, per ID monitor h/h, wbc blood transfusion PRN off ASA flomax and proscar med/onc f/u f/u on last blood cx pt with extensive tumor involvement of bladder with diffuse bleeding/oozing probably not able to control with cysto as above add amicar? may need embolization of vesicular branches of the internal iliac? family has to decide if feasible to do more intervention d/w nursing staff d/w primary service d/w pt's son fully Subjective Allergies: Coded Allergies: No Known Allergies (Unverified , 04/09/16) Subjective all noted, comfortable CBI running Objective Last 24 Hour Vital Signs Date Time Temp Pulse Resp B/P (MAP) Pulse Ox O2 Delivery O2 Flow Rate FiO2 03/24/20 08:30 Nasal Cannula 3.0 03/24/20 08:17 66 99/46 03/24/20 08:10 98.9 70 18 101/50 (67) 98 03/24/20 04:00 99.3 66 18 99/46 (63) 99 03/24/20 00:00 98.1 69 16 92/48 (63) 99 03/23/20 21:00 Nasal Cannula 3.0 03/23/20 19:45 97.1 82 12 147/84 99 Nasal Cannula 3 03/23/20 19:30 82 12 169/101 99 Nasal Cannula 3 03/23/20 19:10 82 12 181/89 99 Nasal Cannula 3 03/23/20 19:06 82 16 98 Nasal Cannula 3.0 32 03/23/20 18:55 82 12 148/70 99 Nasal Cannula 3 03/23/20 18:40 79 15 134/68 99 Nasal Cannula 3 03/23/20 18:25 85 16 143/63 99 Nasal Cannula 3 03/23/20 18:15 82 14 139/63 100 Simple Mask 6 03/23/20 18:12 84 14 99 03/23/20 18:10 81 16 137/72 100 Simple Mask 6 03/23/20 18:05 82 18 148/70 100 Simple Mask 6 03/23/20 18:00 97.4 76 12 149/75 100 Simple Mask 6 03/23/20 12:00 98.2 60 20 135/72 (93) 97 Intake and Output 03/23/20 03/24/20 19:00 07:00 Intake Total 1000 ml 1075.0 ml Output Total 1600 ml Balance 1000 ml -525.0 ml Intake Oral 100 ml IV Total 1000 ml 975.0 ml Output Urine Total 1600 ml Microbiology Date/Time Source Procedure Growth Status 03/17/20 19:00 Blood Blood Culture - Final NO GROWTH AFTER 5 DAYS Complete 03/12/20 06:05 Nasal Nares MRSA Culture - Final NO METHICILLIN RESISTANT STAPH AUREUS... Complete 03/18/20 09:15 Indwelling Cath Urine Culture - Final NO GROWTH AFTER 48 HOURS Complete 03/12/20 04:00 Rectum VRE Culture - Final Enterococcus Faecalis - Vre Complete Current Medications Medications (Trade) Dose Ordered Sig/Levi Route PRN Reason Start Time Stop Time Status Last Admin Dose Admin Acetaminophen (Tylenol) 650 mg Q4H PRN ORAL fever (T>100.5F) 03/18/20 16:45 04/09/20 04:44 Atorvastatin Calcium (Lipitor) 20 mg BEDTIME ORAL 03/18/20 21:00 06/09/20 20:59 03/23/20 20:58 Dextrose (Dextrose 50%) 25 ml Q30M PRN IV Hypoglycemia 03/18/20 16:30 06/11/20 04:59 03/23/20 12:52 Dextrose (Dextrose 50%) 50 ml Q30M PRN IV Hypoglycemia 03/18/20 16:30 06/08/20 14:29 Dextrose/Sodium Chloride 1,000 ml @ 75 mls/hr [id number] IV 03/23/20 14:00 04/22/20 13:59 03/23/20 20:26 Finasteride (Proscar) 5 mg DAILY ORAL 03/19/20 09:00 06/09/20 08:59 03/24/20 08:17 Insulin Aspart (NovoLOG) No Dose BEFORE MEALS AND HS SUBQ 03/18/20 16:30 11/6/20 06:29 03/24/20 06:00 Lidocaine HCl (Xylocaine Jelly 2%) 1 applic DAILYPRN PRN TOPIC for pain in penile region 03/18/20 16:30 06/16/20 16:29 Metoprolol Tartrate (Lopressor) 12.5 mg BID ORAL 03/18/20 18:00 06/08/20 21:59 03/24/20 08:17 Nateglinide (Starlix) 120 mg DAILY ORAL 03/19/20 09:00 04/10/20 08:59 03/24/20 08:17 Nitroglycerin (Ntg) 0.4 mg Q5M PRN SL Prn Chest Pain 03/18/20 16:30 04/09/20 14:29 Ondansetron HCl (Zofran) 4 mg Q6H PRN IVP Nausea & Vomiting 03/18/20 16:45 04/09/20 04:44 Polyethylene Glycol (Miralax) 17 gm DAILYPRN PRN ORAL Constipation 03/18/20 16:31 04/17/20 16:30 Tamsulosin HCl (Flomax) 0.4 mg BEDTIME ORAL 03/18/20 21:00 04/09/20 20:59 03/23/20 20:58 Laboratory Tests 03/23/20 12:08: POC Whole Blood Glucose [Pending] 03/23/20 12:44: POC Whole Blood Glucose [Pending] 03/23/20 13:19: POC Whole Blood Glucose 138H 03/23/20 20:56: POC Whole Blood Glucose [Pending] 03/24/20 05:57: POC Whole Blood Glucose 144H 03/24/20 07:30: White Blood Count 26.5*H, Red Blood Count 3.72L, Hemoglobin 9.7L, Hematocrit 30.4L, Mean Corpuscular Volume 82, Mean Corpuscular Hemoglobin 26.2L, Mean Corpuscular Hemoglobin Concent 32.1, Red Cell Distribution Width 16.4H, Platelet Count 247, Mean Platelet Volume 5.4L, Neutrophils (%) (Auto) , Lymphocytes (%) (Auto) , Monocytes (%) (Auto) , Eosinophils (%) (Auto) , Basophils (%) (Auto) , Neutrophils % (Manual) [Pending], Lymphocytes % (Manual) [Pending], Platelet Estimate [Pending], Platelet Morphology [Pending], Sodium Level 141, Potassium Level 4.1, Chloride Level 109H, Carbon Dioxide Level 24, Anion Gap 8, Blood Urea Nitrogen 6L, Creatinine 1.2, Estimat Glomerular Filtration Rate > 60, Glucose Level 298#H, Calcium Level 7.9L Height (Feet): 5 Height (Inches): 7.00 Weight (Pounds): 185 Objective exam stable hernandez indwelling, CBI mild-moderate rate urine remains blood-tinged renal u/s (03/20) noted Macho Allen MD Mar 24, 2020 09:34
[2020-03-24 11:47] VITALS: BP 104/51
[2020-03-24] MEDS: D5NS 1,000 ML IV SCH (11:47)
--- NOTE | 2020-03-24 12:33 | Pulmonology Progress Note ---
Subjective ROS Limited/Unobtainable: No Interval Events: c/o dry sking Constitutional: Reports: no symptoms HEENT: Repors: no symptoms Respiratory: Reports: no symptoms Allergies: Coded Allergies: No Known Allergies (Unverified , 04/09/16) Subjective afebrile, still significant leukocytosis, no signs fo resp distress CBI with cranberry urine color in Robertson, no clots noted Hgb dropped from 11.3 to 9.7 in one day Objective Last 24 Hour Vital Signs Date Time Temp Pulse Resp B/P (MAP) Pulse Ox O2 Delivery O2 Flow Rate FiO2 03/24/20 11:47 96.8 61 18 104/51 (68) 98 03/24/20 08:30 Nasal Cannula 3.0 03/24/20 08:17 66 99/46 03/24/20 08:10 98.9 70 18 101/50 (67) 98 03/24/20 04:00 99.3 66 18 99/46 (63) 99 03/24/20 00:00 98.1 69 16 92/48 (63) 99 03/23/20 21:00 Nasal Cannula 3.0 03/23/20 19:45 97.1 82 12 147/84 99 Nasal Cannula 3 03/23/20 19:30 82 12 169/101 99 Nasal Cannula 3 03/23/20 19:10 82 12 181/89 99 Nasal Cannula 3 03/23/20 19:06 82 16 98 Nasal Cannula 3.0 32 03/23/20 18:55 82 12 148/70 99 Nasal Cannula 3 03/23/20 18:40 79 15 134/68 99 Nasal Cannula 3 03/23/20 18:25 85 16 143/63 99 Nasal Cannula 3 03/23/20 18:15 82 14 139/63 100 Simple Mask 6 03/23/20 18:12 84 14 99 03/23/20 18:10 81 16 137/72 100 Simple Mask 6 03/23/20 18:05 82 18 148/70 100 Simple Mask 6 03/23/20 18:00 97.4 76 12 149/75 100 Simple Mask 6 Intake and Output 03/23/20 03/24/20 19:00 07:00 Intake Total 1000 ml 1075.0 ml Output Total 1600 ml Balance 1000 ml -525.0 ml Intake Oral 100 ml IV Total 1000 ml 975.0 ml Output Urine Total 1600 ml General Appearance: no acute distress, other - elderly chronically ill looking AA male HEENT: normocephalic, atraumatic, anicteric Respiratory: chest wall non-tender, lungs clear, normal breath sounds, no respiratory distress Cardiovascular: normal peripheral pulses, normal rate Abdomen: normal bowel sounds, soft, non tender Genitourinary: other - Robertson with CBI, urine cranberry color, no clots Extremities: pedal pulses normal Skin: no rash 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, abnormal gait, alert, responsive Lymphatic: no neck adenopathy Laboratory Tests 03/23/20 12:44: POC Whole Blood Glucose [Pending] 03/23/20 13:19: POC Whole Blood Glucose 138H 03/23/20 20:56: POC Whole Blood Glucose [Pending] 03/24/20 05:57: POC Whole Blood Glucose 144H 03/24/20 07:30: White Blood Count 26.5*H, Red Blood Count 3.72L, Hemoglobin 9.7L, Hematocrit 30.4L, Mean Corpuscular Volume 82, Mean Corpuscular Hemoglobin 26.2L, Mean Corpuscular Hemoglobin Concent 32.1, Red Cell Distribution Width 16.4H, Platelet Count 247, Mean Platelet Volume 5.4L, Neutrophils (%) (Auto) , Lymphocytes (%) (Auto) , Monocytes (%) (Auto) , Eosinophils (%) (Auto) , Basophils (%) (Auto) , Differential Total Cells Counted 100, Neutrophils % ( Manual) 92H, Lymphocytes % (Manual) 4L, Monocytes % (Manual) 4, Eosinophils % ( Manual) 0, Basophils % (Manual) 0, Band Neutrophils 0, Platelet Estimate Adequate, Platelet Morphology Normal, Hypochromasia 2+, Anisocytosis 1+, Sodium Level 141, Potassium Level 4.1, Chloride Level 109H, Carbon Dioxide Level 24, Anion Gap 8, Blood Urea Nitrogen 6L, Creatinine 1.2, Estimat Glomerular Filtration Rate > 60, Glucose Level 298#H, Calcium Level 7.9L 03/24/20 11:43: POC Whole Blood Glucose 119H Current Medications Medications (Trade) Dose Ordered Sig/Levi Route PRN Reason Start Time Stop Time Status Last Admin Dose Admin Acetaminophen (Tylenol) 650 mg Q4H PRN ORAL fever (T>100.5F) 03/18/20 16:45 04/09/20 04:44 Atorvastatin Calcium (Lipitor) 20 mg BEDTIME ORAL 03/18/20 21:00 06/09/20 20:59 03/23/20 20:58 Dextrose (Dextrose 50%) 25 ml Q30M PRN IV Hypoglycemia 03/18/20 16:30 06/11/20 04:59 03/23/20 12:52 Dextrose (Dextrose 50%) 50 ml Q30M PRN IV Hypoglycemia 03/18/20 16:30 06/08/20 14:29 Dextrose/Sodium Chloride 1,000 ml @ 75 mls/hr [id number] IV 03/23/20 14:00 04/22/20 13:59 03/24/20 11:47 Finasteride (Proscar) 5 mg DAILY ORAL 03/19/20 09:00 06/09/20 08:59 03/24/20 08:17 Insulin Aspart (NovoLOG) No Dose BEFORE MEALS AND HS SUBQ 03/18/20 16:30 06/15/20 06:29 03/24/20 06:00 Lidocaine HCl (Xylocaine Jelly 2%) 1 applic DAILYPRN PRN TOPIC for pain in penile region 03/18/20 16:30 06/16/20 16:29 Metoprolol Tartrate (Lopressor) 12.5 mg BID ORAL 03/18/20 18:00 06/08/20 21:59 03/24/20 08:17 Nateglinide (Starlix) 120 mg DAILY ORAL 03/19/20 09:00 04/10/20 08:59 03/24/20 08:17 Nitroglycerin (Ntg) 0.4 mg Q5M PRN SL Prn Chest Pain 03/18/20 16:30 04/09/20 14:29 Ondansetron HCl (Zofran) 4 mg Q6H PRN IVP Nausea & Vomiting 03/18/20 16:45 04/09/20 04:44 Polyethylene Glycol (Miralax) 17 gm DAILYPRN PRN ORAL Constipation 03/18/20 16:31 04/17/20 16:30 Tamsulosin HCl (Flomax) 0.4 mg BEDTIME ORAL 03/18/20 21:00 04/09/20 20:59 03/23/20 20:58 Assessment/Plan Assessment/Plan ASSESSMENT Acute CO Sepsis UTI/pyelo-with E. coli ESBL Gross hematuria Anemia of acute blood loss , requiring multiple blood transfusion Bladder CA Status post cystoscopy, TURBT, ureteral stent exchange and removal 813 HTN DM History of CVA Leukocytosis Neurogenic bladder Chronic left hydronephrosis PLAN OF CARE MS floor O2 titrate to keep sat above 92 pulmonary toilet all imaging noted s/p cystoscopy, TURBT and exchange of ureteral stent abx as per ID- completed 03/23 BCX NGT UCX + E. coli ESBL , repeated UCX NGT renal parameters remained stable continue Flomax and Proscar CBI to keep clear hand irrigation PRN Echo with pEF troponin trending medical management with beta-amarjit off ASA secondary to severe anemia BS management with SSI monitor H&H with goal to keep Hgb>7 s/p 5 units PRBC leukocytosis likely reactive secondary to tumor burden supportive care case discussed and evaluated by supervising physician Ellen Mei NP Mar 24, 2020 12:33
--- NOTE | 2020-03-24 13:50 | Infectious Diseases Prog Note ---
Assessment/Plan 84yo M with bladder cancer who p/w chest pain, found to have elevated troponin and leukocytosis. Afebrile Sepsis Leukocytosis, overall improved but remains elevated - no abscess on CT L hydronephrosis, stent in place 03/14 CT abd/p: Mass within the bladder increased in size since previous examination. Presumably this represents bladder neoplasm. Air is also noted within the bladder and the possibility of bladder infection or internal fistula to the bladder should be considered. Left hydronephrosis and with air in the left renal collecting system. There is a left ureteral stent. The air likely is coming from the bladder but the possibility of infection again is not excluded. Atherosclerotic change. Degenerative change in the spine.Cholelithiasis. Bilateral pleural effusions, right greater than left.Subcutaneous edema consistent with mild anasarca. 03/17 BCx NTD 03/18 UCx NTD 03/20 Renal US w/ persistent L hydro UTI/pyelonephritis, UA with tnct WBC, UCx >100k ESBL E.coli on 03/10 Rapid COVID neg x1 03/13 CXR: Some crowding of markings remain inthe lung bases likely related to a limited inspiration and low lung volumes. No new alveolar process. R/o bacteremia 03/11 BCx NTD 03/10 BCx NTD NSTEMI w/ elevated troponin, can also be a cause of reactive leukocytosis Bladder cancer -03/23 SP Cystoscopy with transurethral resection of bladder tumor and extensive fulguration of bladder tumor, removal and exchange ofleft ureteral stent. Hematuria On CBI per Urology Plan: Cont to monitor off abx Leukocytosis persistent despite abx, and pt has remained AF and HDS, thus leukocytosis more likely 2/2 bladder CA and bleeding than due to infection Trend WBC daily 03/23 SP Zosyn #5 03/21 SP vanco #2 03/18 SP latoya #7 for ESBL UTI/pyelo 03/12 SP vanco #2, cefepime #2 Trend resp status Trend leukocytosis daily Monitor CBC, CMP D/w RN Thank you for this consult. [facility] will continue to follow. Subjective Allergies: Coded Allergies: No Known Allergies (Unverified , 04/09/16) afebrile wbc persistent; slightly increased Objective Last 24 Hour Vital Signs Date Time Temp Pulse Resp B/P (MAP) Pulse Ox O2 Delivery O2 Flow Rate FiO2 03/24/20 11:47 96.8 61 18 104/51 (68) 98 03/24/20 08:30 Nasal Cannula 3.0 03/24/20 08:17 66 99/46 03/24/20 08:10 98.9 70 18 101/50 (67) 98 03/24/20 04:00 99.3 66 18 99/46 (63) 99 03/24/20 00:00 98.1 69 16 92/48 (63) 99 03/23/20 21:00 Nasal Cannula 3.0 03/23/20 19:45 97.1 82 12 147/84 99 Nasal Cannula 3 03/23/20 19:30 82 12 169/101 99 Nasal Cannula 3 03/23/20 19:10 82 12 181/89 99 Nasal Cannula 3 03/23/20 19:06 82 16 98 Nasal Cannula 3.0 32 03/23/20 18:55 82 12 148/70 99 Nasal Cannula 3 03/23/20 18:40 79 15 134/68 99 Nasal Cannula 3 03/23/20 18:25 85 16 143/63 99 Nasal Cannula 3 03/23/20 18:15 82 14 139/63 100 Simple Mask 6 03/23/20 18:12 84 14 99 03/23/20 18:10 81 16 137/72 100 Simple Mask 6 03/23/20 18:05 82 18 148/70 100 Simple Mask 6 03/23/20 18:00 97.4 76 12 149/75 100 Simple Mask 6 Height (Feet): 5 Height (Inches): 7.00 Weight (Pounds): 185 Gen: NAD HEENT: OP clear, MM dry, CV: RRR Pulm: CTAB anteriorly Abd: Soft, thin, NTND Laboratory Tests Test 03/23/20 20:56 03/24/20 05:57 03/24/20 07:30 03/24/20 11:43 POC Whole Blood Glucose Pending 144 MG/DL (74-106) H 119 MG/DL (74-106) H White Blood Count 26.5 K/UL (4.8-10.8) *H Red Blood Count 3.72 M/UL (4.70-6.10) L Hemoglobin 9.7 G/DL (14.2-18.0) L Hematocrit 30.4 % (42.0-52.0) L Mean Corpuscular Volume 82 FL (80-99) Mean Corpuscular Hemoglobin 26.2 PG (27.0-31.0) L Mean Corpuscular Hemoglobin Concent 32.1 G/DL (32.0-36.0) Red Cell Distribution Width 16.4 % (11.6-14.8) H Platelet Count 247 K/UL (150-450) Mean Platelet Volume 5.4 FL (6.5-10.1) L Neutrophils (%) (Auto) % (45.0-75.0) Lymphocytes (%) (Auto) % (20.0-45.0) Monocytes (%) (Auto) % (1.0-10.0) Eosinophils (%) (Auto) % (0.0-3.0) Basophils (%) (Auto) % (0.0-2.0) Differential Total Cells Counted 100 Neutrophils % (Manual) 92 % (45-75) H Lymphocytes % (Manual) 4 % (20-45) L Monocytes % (Manual) 4 % (1-10) Eosinophils % (Manual) 0 % (0-3) Basophils % (Manual) 0 % (0-2) Band Neutrophils 0 % (0-8) Platelet Estimate Adequate Platelet Morphology Normal Hypochromasia 2+ Anisocytosis 1+ Sodium Level 141 MMOL/L (136-145) Potassium Level 4.1 MMOL/L (3.5-5.1) Chloride Level 109 MMOL/L (98-107) H Carbon Dioxide Level 24 MMOL/L (21-32) Anion Gap 8 mmol/L (5-15) Blood Urea Nitrogen 6 mg/dL (7-18) L Creatinine 1.2 MG/DL (0.55-1.30) Estimat Glomerular Filtration Rate > 60 mL/min (>60) Glucose Level 298 MG/DL (74-106) #H Calcium Level 7.9 MG/DL (8.5-10.1) L Current Medications Medications (Trade) Dose Ordered Sig/Levi Route PRN Reason Start Time Stop Time Status Last Admin Dose Admin Acetaminophen (Tylenol) 650 mg Q4H PRN ORAL fever (T>100.5F) 03/18/20 16:45 04/09/20 04:44 Atorvastatin Calcium (Lipitor) 20 mg BEDTIME ORAL 03/18/20 21:00 10/31/20 20:59 03/23/20 20:58 Dextrose (Dextrose 50%) 25 ml Q30M PRN IV Hypoglycemia 03/18/20 16:30 06/11/20 04:59 03/23/20 12:52 Dextrose (Dextrose 50%) 50 ml Q30M PRN IV Hypoglycemia 03/18/20 16:30 06/08/20 14:29 Dextrose/Sodium Chloride 1,000 ml @ 75 mls/hr [id number] IV 03/23/20 14:00 04/22/20 13:59 03/24/20 11:47 Finasteride (Proscar) 5 mg DAILY ORAL 03/19/20 09:00 06/09/20 08:59 03/24/20 08:17 Insulin Aspart (NovoLOG) No Dose BEFORE MEALS AND HS SUBQ 03/18/20 16:30 06/15/20 06:29 03/24/20 06:00 Lidocaine HCl (Xylocaine Jelly 2%) 1 applic DAILYPRN PRN TOPIC for pain in penile region 03/18/20 16:30 06/16/20 16:29 Metoprolol Tartrate (Lopressor) 12.5 mg BID ORAL 03/18/20 18:00 06/08/20 21:59 03/24/20 08:17 Nateglinide (Starlix) 120 mg DAILY ORAL 03/19/20 09:00 04/10/20 08:59 03/24/20 08:17 Nitroglycerin (Ntg) 0.4 mg Q5M PRN SL Prn Chest Pain 03/18/20 16:30 04/09/20 14:29 Ondansetron HCl (Zofran) 4 mg Q6H PRN IVP Nausea & Vomiting 03/18/20 16:45 04/09/20 04:44 Polyethylene Glycol (Miralax) 17 gm DAILYPRN PRN ORAL Constipation 03/18/20 16:31 04/17/20 16:30 Tamsulosin HCl (Flomax) 0.4 mg BEDTIME ORAL 03/18/20 21:00 04/09/20 20:59 03/23/20 20:58 Tawny Darby M.D. Mar 24, 2020 13:50
--- NOTE | 2020-03-24 14:46 | Internal Med Progress Note ---
Subjective Date of Service: Mar 24, 2020 Physician Name BrittaniJean-Claude Attending Physician Jaziel Lowe MD Current Medications Medications (Trade) Dose Ordered Sig/Levi Route PRN Reason Start Time Stop Time Status Last Admin Dose Admin Acetaminophen (Tylenol) 650 mg Q4H PRN ORAL fever (T>100.5F) 03/18/20 16:45 04/09/20 04:44 Atorvastatin Calcium (Lipitor) 20 mg BEDTIME ORAL 03/18/20 21:00 06/09/20 20:59 03/23/20 20:58 Dextrose (Dextrose 50%) 25 ml Q30M PRN IV Hypoglycemia 03/18/20 16:30 06/11/20 04:59 03/23/20 12:52 Dextrose (Dextrose 50%) 50 ml Q30M PRN IV Hypoglycemia 03/18/20 16:30 06/08/20 14:29 Dextrose/Sodium Chloride 1,000 ml @ 75 mls/hr [id number] IV 03/23/20 14:00 04/22/20 13:59 03/24/20 11:47 Finasteride (Proscar) 5 mg DAILY ORAL 03/19/20 09:00 06/09/20 08:59 03/24/20 08:17 Insulin Aspart (NovoLOG) No Dose BEFORE MEALS AND HS SUBQ 03/18/20 16:30 06/15/20 06:29 03/24/20 06:00 Lidocaine HCl (Xylocaine Jelly 2%) 1 applic DAILYPRN PRN TOPIC for pain in penile region 03/18/20 16:30 06/16/20 16:29 Metoprolol Tartrate (Lopressor) 12.5 mg BID ORAL 03/18/20 18:00 06/08/20 21:59 03/24/20 08:17 Nateglinide (Starlix) 120 mg DAILY ORAL 03/19/20 09:00 04/10/20 08:59 03/24/20 08:17 Nitroglycerin (Ntg) 0.4 mg Q5M PRN SL Prn Chest Pain 03/18/20 16:30 04/09/20 14:29 Ondansetron HCl (Zofran) 4 mg Q6H PRN IVP Nausea & Vomiting 03/18/20 16:45 04/09/20 04:44 Polyethylene Glycol (Miralax) 17 gm DAILYPRN PRN ORAL Constipation 03/18/20 16:31 04/17/20 16:30 Tamsulosin HCl (Flomax) 0.4 mg BEDTIME ORAL 03/18/20 21:00 04/09/20 20:59 03/23/20 20:58 Allergies: Coded Allergies: No Known Allergies (Unverified , 04/09/16) ROS Limited/Unobtainable: No Constitutional: Reports: no symptoms HEENT: Reports: no symptoms Cardiovascular: Reports: no symptoms Respiratory: Reports: no symptoms Gastrointestinal/Abdominal: Reports: no symptoms Genitourinary: Reports: no symptoms 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: Reports: no symptoms Subjective 84 YO M with a history of bladder cancer admitted with chest pain. Now severe anemia and hematuria. Cover for Int Med-DR Lowe. Objective Last Vital Signs Date Time Temp Pulse Resp B/P (MAP) Pulse Ox O2 Delivery O2 Flow Rate FiO2 03/24/20 11:47 96.8 61 18 104/51 (68) 98 03/24/20 08:30 Nasal Cannula 3.0 03/23/20 19:06 32 Laboratory Tests Test 03/23/20 20:56 03/24/20 05:57 03/24/20 07:30 03/24/20 11:43 POC Whole Blood Glucose Pending 144 MG/DL (74-106) H 119 MG/DL (74-106) H White Blood Count 26.5 K/UL (4.8-10.8) *H Red Blood Count 3.72 M/UL (4.70-6.10) L Hemoglobin 9.7 G/DL (14.2-18.0) L Hematocrit 30.4 % (42.0-52.0) L Mean Corpuscular Volume 82 FL (80-99) Mean Corpuscular Hemoglobin 26.2 PG (27.0-31.0) L Mean Corpuscular Hemoglobin Concent 32.1 G/DL (32.0-36.0) Red Cell Distribution Width 16.4 % (11.6-14.8) H Platelet Count 247 K/UL (150-450) Mean Platelet Volume 5.4 FL (6.5-10.1) L Neutrophils (%) (Auto) % (45.0-75.0) Lymphocytes (%) (Auto) % (20.0-45.0) Monocytes (%) (Auto) % (1.0-10.0) Eosinophils (%) (Auto) % (0.0-3.0) Basophils (%) (Auto) % (0.0-2.0) Differential Total Cells Counted 100 Neutrophils % (Manual) 92 % (45-75) H Lymphocytes % (Manual) 4 % (20-45) L Monocytes % (Manual) 4 % (1-10) Eosinophils % (Manual) 0 % (0-3) Basophils % (Manual) 0 % (0-2) Band Neutrophils 0 % (0-8) Platelet Estimate Adequate Platelet Morphology Normal Hypochromasia 2+ Anisocytosis 1+ Sodium Level 141 MMOL/L (136-145) Potassium Level 4.1 MMOL/L (3.5-5.1) Chloride Level 109 MMOL/L (98-107) H Carbon Dioxide Level 24 MMOL/L (21-32) Anion Gap 8 mmol/L (5-15) Blood Urea Nitrogen 6 mg/dL (7-18) L Creatinine 1.2 MG/DL (0.55-1.30) Estimat Glomerular Filtration Rate > 60 mL/min (>60) Glucose Level 298 MG/DL (74-106) #H Calcium Level 7.9 MG/DL (8.5-10.1) L Intake and Output 03/23/20 03/24/20 19:00 07:00 Intake Total 1000 ml 1075.0 ml Output Total 1600 ml Balance 1000 ml -525.0 ml Intake Oral 100 ml IV Total 1000 ml 975.0 ml Output Urine Total 1600 ml Objective PHYSICAL EXAMINATION: GENERAL: The patient is a well-developed and well-nourished male, in no apparent distress. HEENT: Eyes, pupils are equal and responsive to light and accommodation. Extraocular movements are intact. NECK: Supple without lymphadenopathy. CHEST: Lungs are clear to auscultation bilaterally without wheezes or rales. CARDIOVASCULAR: Regular rhythm and rate. S1, S2 are normal without murmurs, rubs, or gallops. ABDOMEN: Soft, nontender, and nondistended. Positive bowel sounds. No evidence of hepatosplenomegaly. Currently, no rebound or guarding noted. EXTREMITIES: Negative for clubbing, cyanosis, or edema. RECTAL/GENITAL: Not performed. NEUROLOGIC: Cranial nerves II through XII are grossly intact without focal deficits. Motor strength is 5/5 bilaterally. Deep tendon reflexes are 2+ plantar. Assessment/Plan Assessment/Plan ASSESSMENT: This is an 84-year-old male. 1. Chest pain. 2. Elevated troponin level. 3. Bladder cancer. 4. Gastritis. 5. Hypertension. 6. Diabetes type 2. 7. Atrioventricular conduction defect. 8. Alzheimer's dementia. 9. Cerebrovascular disease. 10. Right hemiplegia. 11. Pacemaker in situ. 12. Urinary tract infection=ESBL E. Coli 13. Persistant leukocytosis due to UTI-resolving 14. Hematuria 15. severe anemia TREATMENT: 1. Chest pain/elevated troponin. A Cardiology consultation has been obtained with Dr. Nj Valenzuela. We will follow recommendations of Cardiology. 2. Bladder cancer. CT=bladder mass increased in size from prior. Urology= Dr. Macho Allen. The patient is status post transurethral resection of bladder tumor x2. We will follow recommendations of Urology. 3. Gastritis. Continue Protonix as above. 4. Hypertension. 5. Diabetes type 2. A NovoLog sliding scale has been instituted. 6. Atrioventricular conduction defect. The patient is status post pacemaker implantation. 7. Alzheimer's dementia. 8. Cerebrovascular disease, status post cerebrovascular accident. 9. Right hemiplegia. 10. ABX=S/P meropenem; continue zosyn and vanco per ID=Dr Darby 11. Bladder irrigation per urology 12. S/P trransfusion 5 units PRBC 13. S/P cystoscopy and transurethral resection of bladder tumor with left stent replacement on Thu03/23/20 by urology=Dr Allen 14. Discharge planning:hospice Jean-Claude Peter MD Mar 24, 2020 14:46
[2020-03-24 16:03] VITALS: BP 115/62
--- NOTE | 2020-03-24 17:00 | Cardiology Progress Note ---
Assessment/Plan Problem List: (1) ACS (acute coronary syndrome) (2) Sepsis (3) Hematuria (4) HTN (hypertension) (5) Hydronephrosis (6) UTI (urinary tract infection) (7) Bladder cancer Status: stable, unchanged Status Narrative s/p nonSTEMI on adm, w/ posterior wall HK noted on ECHO, but overall nl EF ( 50s ) hx of PAF Bladder CA/ hematuria hydronephrosis, s/p ureteral stent UTI Assessment/Plan Continue statin, b amarjit for CAD. No asa due to bleed Not a candidate for invasive cardiac intervention due to advanced bladder CA and other comorbidities. Subjective ROS Limited/Unobtainable: No Subjective Cardiology for Dr. Valenzuela Mr Boyd has no new c/o. He reports that he has had intermittent brief CP Objective Last 24 Hour Vital Signs Date Time Temp Pulse Resp B/P (MAP) Pulse Ox O2 Delivery O2 Flow Rate FiO2 03/24/20 16:03 98.6 75 18 115/62 (79) 97 03/24/20 11:47 96.8 61 18 104/51 (68) 98 03/24/20 08:30 Nasal Cannula 3.0 03/24/20 08:17 66 99/46 03/24/20 08:10 98.9 70 18 101/50 (67) 98 03/24/20 04:00 99.3 66 18 99/46 (63) 99 03/24/20 00:00 98.1 69 16 92/48 (63) 99 03/23/20 21:00 Nasal Cannula 3.0 03/23/20 19:45 97.1 82 12 147/84 99 Nasal Cannula 3 03/23/20 19:30 82 12 169/101 99 Nasal Cannula 3 03/23/20 19:10 82 12 181/89 99 Nasal Cannula 3 03/23/20 19:06 82 16 98 Nasal Cannula 3.0 32 03/23/20 18:55 82 12 148/70 99 Nasal Cannula 3 03/23/20 18:40 79 15 134/68 99 Nasal Cannula 3 03/23/20 18:25 85 16 143/63 99 Nasal Cannula 3 03/23/20 18:15 82 14 139/63 100 Simple Mask 6 03/23/20 18:12 84 14 99 03/23/20 18:10 81 16 137/72 100 Simple Mask 6 03/23/20 18:05 82 18 148/70 100 Simple Mask 6 03/23/20 18:00 97.4 76 12 149/75 100 Simple Mask 6 General Appearance: WD/WN, no apparent distress, alert EENT: PERRL/EOMI Neck: supple, no JVD Rhythm: NSR Cardiovascular: normal rate, no gallop/murmur Respiratory/Chest: lungs clear Abdomen: non tender, soft Extremities: other - R arm edema Intake and Output 03/23/20 03/24/20 19:00 07:00 Intake Total 1000 ml 1075.0 ml Output Total 1600 ml Balance 1000 ml -525.0 ml Intake Oral 100 ml IV Total 1000 ml 975.0 ml Output Urine Total 1600 ml Laboratory Tests Test 03/23/20 20:56 03/24/20 05:57 03/24/20 07:30 03/24/20 11:43 POC Whole Blood Glucose Pending 144 MG/DL (74-106) H 119 MG/DL (74-106) H White Blood Count 26.5 K/UL (4.8-10.8) *H Red Blood Count 3.72 M/UL (4.70-6.10) L Hemoglobin 9.7 G/DL (14.2-18.0) L Hematocrit 30.4 % (42.0-52.0) L Mean Corpuscular Volume 82 FL (80-99) Mean Corpuscular Hemoglobin 26.2 PG (27.0-31.0) L Mean Corpuscular Hemoglobin Concent 32.1 G/DL (32.0-36.0) Red Cell Distribution Width 16.4 % (11.6-14.8) H Platelet Count 247 K/UL (150-450) Mean Platelet Volume 5.4 FL (6.5-10.1) L Neutrophils (%) (Auto) % (45.0-75.0) Lymphocytes (%) (Auto) % (20.0-45.0) Monocytes (%) (Auto) % (1.0-10.0) Eosinophils (%) (Auto) % (0.0-3.0) Basophils (%) (Auto) % (0.0-2.0) Differential Total Cells Counted 100 Neutrophils % (Manual) 92 % (45-75) H Lymphocytes % (Manual) 4 % (20-45) L Monocytes % (Manual) 4 % (1-10) Eosinophils % (Manual) 0 % (0-3) Basophils % (Manual) 0 % (0-2) Band Neutrophils 0 % (0-8) Platelet Estimate Adequate Platelet Morphology Normal Hypochromasia 2+ Anisocytosis 1+ Sodium Level 141 MMOL/L (136-145) Potassium Level 4.1 MMOL/L (3.5-5.1) Chloride Level 109 MMOL/L (98-107) H Carbon Dioxide Level 24 MMOL/L (21-32) Anion Gap 8 mmol/L (5-15) Blood Urea Nitrogen 6 mg/dL (7-18) L Creatinine 1.2 MG/DL (0.55-1.30) Estimat Glomerular Filtration Rate > 60 mL/min (>60) Glucose Level 298 MG/DL (74-106) #H Calcium Level 7.9 MG/DL (8.5-10.1) L Test 03/24/20 16:02 POC Whole Blood Glucose Pending Sue Mullins MD Mar 24, 2020 17:00
--- NOTE | 2020-03-24 19:36 | NUR ---
HAND-OFF: Report given to Mr Olivares accordingly. husam robbins
--- NOTE | 2020-03-24 19:41 | NUR ---
NURSE NOTES: Pt. received from DONELL Nunez. Pt. AAOx2, breathing even and unlabored on 2L NC, no indications of pain, and no indications of respiratory distress. IV noted left wrist intact and patent. 3-way hernandez with CBI running, intact and draining bright red urine well. Bed low and locked, side rails x2 up, bed alarm active, and call light in reach.
[2020-03-24 20:00] VITALS: BP 111/56
[2020-03-24] MEDS: Atorvastatin 20mg tab ORAL SCH (20:59)
[2020-03-24] MEDS: Tamsulosin 0.4mg cap ORAL SCH (20:59)
[2020-03-25] VITALS (7 sets, daily range): BP systolic 92–146; BP diastolic 54–72
[2020-03-25] MEDS: D5NS 1,000 ML IV SCH ×2 (02:29→16:32)
[2020-03-25] MEDS: NovoLOG Insulin Flexpen SUBQ SCH ×4 (06:08→20:40)
--- NOTE | 2020-03-25 06:47 | NUR ---
NURSE NOTES: Pt. with cranberry colored urine throughout the shift, small clots noted. CBI intake: [id number] Robertson output: [id number]
--- NOTE | 2020-03-25 07:24 | NUR ---
NURSE HAND-OFF: Important Events on Shift:[CBI with cranberry colored urine] Patient Status: [stable] Diet: [CCHO medium] Pending Orders: [na] Pending Results/Labs:[na] Pending MD notification:[pt. with large volume fluid in CBI, cranberry colored urine throughout shift] Latest Vital Signs: Temperature 97.9 , Pulse 69 , B/P 92 /54 , Respiratory Rate 20 , O2 SAT 91 , Nasal Cannula, O2 Flow Rate 2.0 . Vital Sign Comment: [stable] Latest Damon Fall Score: 50 Fall Risk: High Risk Safety Measures: Call light Within Reach, Bed Alarm Zone 1, Side Rails Side Rails x3, Bed position Low and Locked. Fall Precautions: Yellow Socks Yellow Gown Door Sign Patient Fall Education Report given to [DONELL Armenta].
[2020-03-25 07:27] LABS: ANION GAP 4 mmol/L (5-15); BLOOD UREA NITROGEN 6 mg/dL (7-18); CARBON DIOXIDE 26 MMOL/L (21-32); CHLORIDE 110 MMOL/L (98-107); HEMATOCRIT 30.7 % (42.0-52.0); HEMOGLOBIN 9.6 G/DL (14.2-18.0); MEAN CORPUSCULAR VOLUME 82 FL (80-99); PLATELET COUNT 232 K/UL (150-450); POTASSIUM 3.7 MMOL/L (3.5-5.1); RED BLOOD COUNT 3.74 M/UL (4.70-6.10); RED CELL DISTRIBUTION WIDTH 16.6 % (11.6-14.8); SODIUM 140 MMOL/L (136-145)
--- NOTE | 2020-03-25 07:41 | Hematology/Onc Progress Note ---
Assessment/Plan Assessment/Plan # Bladder cancer extensive stage, WORSENED with PD1+ on biopsy from 12/2018 results, iintially with L hydronephrosis/L Hydroureter 2ry to extensive bladder tumor, that is extensive stage. 11/25 SP Cystoscopy, urethral calibration , transurethral resection of extensive bladder tumor with fulguration, and right retrograde pyelogram. Findings: The patient had what appeared to be a large bladder tumor that involved most of the left side of the bladder extending posteriorly and completely obliterating the left ureteral orifice. Seen by urology --> CT abd/p: Limited assessment of the GI tract, due to lack of enteric contrast administration. Moderate left hydronephrosis and hydroureter. Hydroureter extends to the bladder, where there is asymmetric posterolateral wall thickening raises concern for neoplasm. There is also generalized wall thickening, possibly on the basis of cystitis or chronic bladder outlet obstruction. No definite findings to suggest etiology of stated clinical history of GI bleed. Cholelithiasis. Basilar pulmonary atelectasis and equivocal slight interstitial congestion. L1 vertebral body compression fracture deformity, age indeterminate. --> appreciate urology recs, pulm recs --> 12/31/18: s/p stent placement --> CT A/P 03/2020 Mass within the bladder increased in size since previous examination. Presumably this represents bladder neoplasm. Air is also noted within the bladder and the possibility of bladder infection or internal fistula to the bladder should b considered. Left hydronephrosis and with air in the left renal collecting system. There is a left ureteral stent. The air likely is coming from the bladder but the possibility of infection again is not excluded. --> is now s/p TURB resection x 2 --> urology and pcp followup # Anemia due to hematuira --> appreciate gi recs, in prior endoscopy negatve --> for hematuria is on AMICAR --> anemia panel has been reviewed before --> 3 way hernandez with irrigation --> transfuse if hgb <7 --> per uro recs --> hgb trend 9.5-->7.9-->11->9.7 ==> may need iv iron # Leukocytosis is likely due to malignancy and esbl uti --> on abx meropenem-->zosyn --> wbc 24-->25->27 --> per id # Hydronephrosis --> s/p stent placement # Chronic cerebrovascular accident (CVA) --> per neuro as needed # Diabetes mellitus II --> accuchecks qac and qhs --> insulin coverage as needed # Alzheimer's dementia # 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 Greatly appreciate consultation! Subjective Constitutional: Denies: no symptoms, chills, fever, malaise, weakness, other HEENT: Denies: no symptoms, eye pain, blurred vision, tearing, double vision, ear pain, ear discharge, nose pain, nose congestion, throat pain, throat swelling, mouth pain, mouth swelling, other Cardiovascular: Denies: no symptoms, chest pain, edema, irregular heart rate, lightheadedness, palpitations, syncope, other Respiratory: Denies: no symptoms, cough, shortness of breath, SOB with excertion, SOB at rest, sputum, wheezing, other Gastrointestinal/Abdominal: Denies: no symptoms, abdomen distended, abdominal pain, black stools, tarry stools, blood in stool, constipated, diarrhea, difficulty swallowing, nausea, poor appetite, poor fluid intake, rectal bleeding , vomiting, other Genitourinary: Denies: no symptoms, burning, discharge, frequency, flank pain, hematuria, incontinence, pain, urgency, other 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: Denies: no symptoms, anxiety, depressed, emotional problems, headache, numbness, paresthesia, pre-existing deficit, seizure, tingling, tremors, weakness, other Endocrine: Denies: no symptoms, excessive sweating, flushing, intolerance to cold, intolerance to heat, increased hunger, increased thirst, increased urine, unexplained weight gain, unexplained weight loss, other Allergies: Coded Allergies: No Known Allergies (Unverified , 04/09/16) Subjective 03/23 remains on cbi, no bleeding, wbc 25k, abx prn, is on zosyn 03/24 urine remains light pink, without bleeding, high wbc, on abx, seen by uro 03/25 is on 2l nc, no bleeding, on cbi as per uro no major events otherwise Objective Objective Current Medications Medications (Trade) Dose Ordered Sig/Levi Route PRN Reason Start Time Stop Time Status Last Admin Dose Admin Acetaminophen (Tylenol) 650 mg Q4H PRN ORAL fever (T>100.5F) 03/18/20 16:45 04/09/20 04:44 Atorvastatin Calcium (Lipitor) 20 mg BEDTIME ORAL 03/18/20 21:00 06/09/20 20:59 03/24/20 20:59 Dextrose (Dextrose 50%) 25 ml Q30M PRN IV Hypoglycemia 03/18/20 16:30 06/11/20 04:59 03/23/20 12:52 Dextrose (Dextrose 50%) 50 ml Q30M PRN IV Hypoglycemia 03/18/20 16:30 06/08/20 14:29 Dextrose/Sodium Chloride 1,000 ml @ 75 mls/hr [id number] IV 03/23/20 14:00 04/22/20 13:59 03/25/20 02:29 Finasteride (Proscar) 5 mg DAILY ORAL 03/19/20 09:00 06/09/20 08:59 03/24/20 08:17 Insulin Aspart (NovoLOG) No Dose BEFORE MEALS AND HS SUBQ 03/18/20 16:30 06/15/20 06:29 03/24/20 06:00 Lidocaine HCl (Xylocaine Jelly 2%) 1 applic DAILYPRN PRN TOPIC for pain in penile region 03/18/20 16:30 06/16/20 16:29 Metoprolol Tartrate (Lopressor) 12.5 mg BID ORAL 03/18/20 18:00 06/08/20 21:59 03/24/20 17:08 Nateglinide (Starlix) 120 mg DAILY ORAL 03/19/20 09:00 04/10/20 08:59 03/24/20 08:17 Nitroglycerin (Ntg) 0.4 mg Q5M PRN SL Prn Chest Pain 03/18/20 16:30 04/09/20 14:29 Ondansetron HCl (Zofran) 4 mg Q6H PRN IVP Nausea & Vomiting 03/18/20 16:45 04/09/20 04:44 Polyethylene Glycol (Miralax) 17 gm DAILYPRN PRN ORAL Constipation 03/18/20 16:31 04/17/20 16:30 Tamsulosin HCl (Flomax) 0.4 mg BEDTIME ORAL 03/18/20 21:00 04/09/20 20:59 03/24/20 20:59 Last 24 Hour Vital Signs Date Time Temp Pulse Resp B/P (MAP) Pulse Ox O2 Delivery O2 Flow Rate FiO2 03/25/20 04:00 97.9 69 20 92/54 (67) 91 03/25/20 00:00 97.5 88 19 119/62 (81) 96 03/24/20 21:00 Nasal Cannula 2.0 03/24/20 20:00 99.0 61 21 111/56 (74) 100 03/24/20 17:08 75 115/62 03/24/20 16:03 98.6 75 18 115/62 (79) 97 03/24/20 11:47 96.8 61 18 104/51 (68) 98 03/24/20 08:30 Nasal Cannula 3.0 03/24/20 08:17 66 99/46 03/24/20 08:10 98.9 70 18 101/50 (67) 98 03/24/20 04:00 99.3 66 18 99/46 (63) 99 03/24/20 00:00 98.1 69 16 92/48 (63) 99 03/23/20 21:00 Nasal Cannula 3.0 03/23/20 19:45 97.1 82 12 147/84 99 Nasal Cannula 3 03/23/20 19:30 82 12 169/101 99 Nasal Cannula 3 03/23/20 19:10 82 12 181/89 99 Nasal Cannula 3 03/23/20 19:06 82 16 98 Nasal Cannula 3.0 32 03/23/20 18:55 82 12 148/70 99 Nasal Cannula 3 03/23/20 18:40 79 15 134/68 99 Nasal Cannula 3 03/23/20 18:25 85 16 143/63 99 Nasal Cannula 3 03/23/20 18:15 82 14 139/63 100 Simple Mask 6 03/23/20 18:12 84 14 99 03/23/20 18:10 81 16 137/72 100 Simple Mask 6 03/23/20 18:05 82 18 148/70 100 Simple Mask 6 03/23/20 18:00 97.4 76 12 149/75 100 Simple Mask 6 03/23/20 12:00 98.2 60 20 135/72 (93) 97 03/23/20 09:00 Room Air 03/23/20 08:33 72 132/65 03/23/20 08:00 98.9 60 21 132/65 (87) 97 Intake and Output 03/24/20 03/25/20 19:00 07:00 Intake Total 900 ml 360 ml Output Total 1270 ml 1000 ml Balance -370 ml -640 ml Intake Oral 360 ml IV Total 900 ml Output Urine Total 1270 ml 1000 ml Labs Test 03/22/20 10:00 03/22/20 11:19 03/23/20 05:35 03/23/20 12:08 White Blood Count 24.5 K/UL (4.8-10.8) 24.6 K/UL (4.8-10.8) Red Blood Count 4.38 M/UL (4.70-6.10) 4.40 M/UL (4.70-6.10) Hemoglobin 11.5 G/DL (14.2-18.0) 11.3 G/DL (14.2-18.0) Hematocrit 35.6 % (42.0-52.0) 35.6 % (42.0-52.0) Mean Corpuscular Volume 81 FL (80-99) 81 FL (80-99) Mean Corpuscular Hemoglobin 26.2 PG (27.0-31.0) 25.7 PG (27.0-31.0) Mean Corpuscular Hemoglobin Concent 32.2 G/DL (32.0-36.0) 31.7 G/DL (32.0-36.0) Red Cell Distribution Width 16.1 % (11.6-14.8) 16.1 % (11.6-14.8) Platelet Count 238 K/UL (150-450) 299 K/UL (150-450) Mean Platelet Volume 5.9 FL (6.5-10.1) 6.4 FL (6.5-10.1) Neutrophils (%) (Auto) % (45.0-75.0) % (45.0-75.0) Lymphocytes (%) (Auto) % (20.0-45.0) % (20.0-45.0) Monocytes (%) (Auto) % (1.0-10.0) % (1.0-10.0) Eosinophils (%) (Auto) % (0.0-3.0) % (0.0-3.0) Basophils (%) (Auto) % (0.0-2.0) % (0.0-2.0) Differential Total Cells Counted 100 100 Neutrophils % (Manual) 92 % (45-75) 91 % (45-75) Lymphocytes % (Manual) 5 % (20-45) 5 % (20-45) Monocytes % (Manual) 3 % (1-10) 3 % (1-10) Eosinophils % (Manual) 0 % (0-3) 1 % (0-3) Basophils % (Manual) 0 % (0-2) 0 % (0-2) Band Neutrophils 0 % (0-8) 0 % (0-8) Platelet Estimate Adequate Adequate Platelet Morphology Normal Normal Anisocytosis 1+ 1+ Sodium Level 137 MMOL/L (136-145) 141 MMOL/L (136-145) Potassium Level 4.1 MMOL/L (3.5-5.1) 4.3 MMOL/L (3.5-5.1) Chloride Level 106 MMOL/L (98-107) 107 MMOL/L (98-107) Carbon Dioxide Level 22 MMOL/L (21-32) 28 MMOL/L (21-32) Anion Gap 9 mmol/L (5-15) 6 mmol/L (5-15) Blood Urea Nitrogen 7 mg/dL (7-18) 6 mg/dL (7-18) Creatinine 0.9 MG/DL (0.55-1.30) 1.0 MG/DL (0.55-1.30) Estimat Glomerular Filtration Rate > 60 mL/min (>60) > 60 mL/min (>60) Glucose Level 91 MG/DL (74-106) 95 MG/DL (74-106) Calcium Level 8.5 MG/DL (8.5-10.1) 8.5 MG/DL (8.5-10.1) POC Whole Blood Glucose 85 MG/DL (74-106) Hypochromasia 1+ Erythrocyte Sedimentation Rate 79 MM/HR (0-20) Phosphorus Level 2.8 MG/DL (2.5-4.9) Magnesium Level 1.5 MG/DL (1.8-2.4) Total Bilirubin 0.7 MG/DL (0.2-1.0) Aspartate Amino Transf (AST/SGOT) 16 U/L (15-37) Alanine Aminotransferase (ALT/SGPT) 18 U/L (12-78) Alkaline Phosphatase 69 U/L (46-116) C-Reactive Protein, Quantitative 6.8 mg/dL (0.00-0.90) Total Protein 6.1 G/DL (6.4-8.2) Albumin 1.6 G/DL (3.4-5.0) Globulin 4.5 g/dL Albumin/Globulin Ratio 0.4 (1.0-2.7) Test 03/23/20 12:44 03/23/20 13:19 03/23/20 20:56 03/24/20 05:57 POC Whole Blood Glucose 138 MG/DL (74-106) 144 MG/DL (74-106) Test 03/24/20 07:30 03/24/20 11:43 03/24/20 16:02 03/24/20 20:02 White Blood Count 26.5 K/UL (4.8-10.8) Red Blood Count 3.72 M/UL (4.70-6.10) Hemoglobin 9.7 G/DL (14.2-18.0) Hematocrit 30.4 % (42.0-52.0) Mean Corpuscular Volume 82 FL (80-99) Mean Corpuscular Hemoglobin 26.2 PG (27.0-31.0) Mean Corpuscular Hemoglobin Concent 32.1 G/DL (32.0-36.0) Red Cell Distribution Width 16.4 % (11.6-14.8) Platelet Count 247 K/UL (150-450) Mean Platelet Volume 5.4 FL (6.5-10.1) Neutrophils (%) (Auto) % (45.0-75.0) Lymphocytes (%) (Auto) % (20.0-45.0) Monocytes (%) (Auto) % (1.0-10.0) Eosinophils (%) (Auto) % (0.0-3.0) Basophils (%) (Auto) % (0.0-2.0) Differential Total Cells Counted 100 Neutrophils % (Manual) 92 % (45-75) Lymphocytes % (Manual) 4 % (20-45) Monocytes % (Manual) 4 % (1-10) Eosinophils % (Manual) 0 % (0-3) Basophils % (Manual) 0 % (0-2) Band Neutrophils 0 % (0-8) Platelet Estimate Adequate Platelet Morphology Normal Hypochromasia 2+ Anisocytosis 1+ Sodium Level 141 MMOL/L (136-145) Potassium Level 4.1 MMOL/L (3.5-5.1) Chloride Level 109 MMOL/L (98-107) Carbon Dioxide Level 24 MMOL/L (21-32) Anion Gap 8 mmol/L (5-15) Blood Urea Nitrogen 6 mg/dL (7-18) Creatinine 1.2 MG/DL (0.55-1.30) Estimat Glomerular Filtration Rate > 60 mL/min (>60) Glucose Level 298 MG/DL (74-106) Calcium Level 7.9 MG/DL (8.5-10.1) POC Whole Blood Glucose 119 MG/DL (74-106) 83 MG/DL (74-106) Test 03/25/20 05:59 03/25/20 06:45 POC Whole Blood Glucose 106 MG/DL (74-106) Sodium Level 140 MMOL/L (136-145) Potassium Level 3.7 MMOL/L (3.5-5.1) Chloride Level 110 MMOL/L (98-107) Carbon Dioxide Level 26 MMOL/L (21-32) Anion Gap 4 mmol/L (5-15) Blood Urea Nitrogen 6 mg/dL (7-18) Creatinine 1.0 MG/DL (0.55-1.30) Estimat Glomerular Filtration Rate > 60 mL/min (>60) Glucose Level 109 MG/DL (74-106) Calcium Level 8.0 MG/DL (8.5-10.1) Height (Feet): 5 Height (Inches): 7.00 Weight (Pounds): 185 Objective Physical Exam: Vitals: reviewed General: NAD HEENT: nc, at Neck: supple Chest: clear breath sounds bilaterally Cardiovascular: RRR, no s3, s4 Abdomen: soft, nontender, nd Extremities: no cce, normal range of motion Neuro: alet : +++Pierce Chávez MD Mar 25, 2020 07:41
--- NOTE | 2020-03-25 08:00 | NUR ---
NURSE NOTES: Received patient in bed, awake, no complaint of pain or discomfort. On 2L oxygen via nasal cannula, no respiratory distress noted. IV access on right forearm, no sign of infiltration noted. Patient receives IVF as ordered. Patient has [address] Robertson catheter in place, receiving continuous bladder irrigation, drainage of light pink urine to gravity. Patient on Mechanical soft ground diet, nectar thick liquid. Bed is locked, and in lowest position, call light within easy reach, bed alarm on, siderails up x2. Will continue to monitor patient and follow up with the plan of care.
[2020-03-25] MEDS: Metoprolol Tartrate 12.5mg TAB ORAL SCH ×2 (08:11→17:44)
--- NOTE | 2020-03-25 09:52 | Urology Progress Note ---
Assessment/Plan Status: stable, unchanged Assessment/Plan: 1. Gross hematuria. 2. Bladder cancer history with enlarging bladder mass. 3. Left-sided hydro, which is chronic. 4. BPH history. 5. Urinary retention. 6. UTI. 7. Proteinuria. 8. Neurogenic bladder. 9. POD # 2, TURBT, fulguration, exchange of left ureteral stent maintain hernandez, 3-way replaced 03/23 CBI, titrate rate to keep clear hernandez hand irrigated and do PRN occasional small clots noted s/p abx, per ID monitor h/h, wbc blood transfusion PRN off ASA flomax and proscar med/onc f/u pt with extensive tumor involvement of bladder with diffuse bleeding/oozing probably not able to control with cysto as above add amicar? may need embolization of vesicular branches of the internal iliac? family has to decide if feasible to do more intervention, have decided hospice d/w nursing staff d/w primary service d/w pt's son fully Subjective Allergies: Coded Allergies: No Known Allergies (Unverified , 04/09/16) Subjective all noted, comfortable CBI running Objective Last 24 Hour Vital Signs Date Time Temp Pulse Resp B/P (MAP) Pulse Ox O2 Delivery O2 Flow Rate FiO2 03/25/20 08:11 73 104/56 03/25/20 08:00 98.2 73 19 104/56 (72) 93 03/25/20 04:00 97.9 69 20 92/54 (67) 91 03/25/20 00:00 97.5 88 19 119/62 (81) 96 03/24/20 21:00 Nasal Cannula 2.0 03/24/20 20:00 99.0 61 21 111/56 (74) 100 03/24/20 17:08 75 115/62 03/24/20 16:03 98.6 75 18 115/62 (79) 97 03/24/20 11:47 96.8 61 18 104/51 (68) 98 Intake and Output 03/24/20 03/25/20 19:00 07:00 Intake Total 900 ml 360 ml Output Total 1270 ml 1000 ml Balance -370 ml -640 ml Intake Oral 360 ml IV Total 900 ml Output Urine Total 1270 ml 1000 ml Microbiology Date/Time Source Procedure Growth Status 03/17/20 19:00 Blood Blood Culture - Final NO GROWTH AFTER 5 DAYS Complete 03/12/20 06:05 Nasal Nares MRSA Culture - Final NO METHICILLIN RESISTANT STAPH AUREUS... Complete 03/18/20 09:15 Indwelling Cath Urine Culture - Final NO GROWTH AFTER 48 HOURS Complete 03/12/20 04:00 Rectum VRE Culture - Final Enterococcus Faecalis - Vre Complete Current Medications Medications (Trade) Dose Ordered Sig/Levi Route PRN Reason Start Time Stop Time Status Last Admin Dose Admin Acetaminophen (Tylenol) 650 mg Q4H PRN ORAL fever (T>100.5F) 03/18/20 16:45 04/09/20 04:44 Atorvastatin Calcium (Lipitor) 20 mg BEDTIME ORAL 03/18/20 21:00 06/09/20 20:59 03/24/20 20:59 Dextrose (Dextrose 50%) 25 ml Q30M PRN IV Hypoglycemia 03/18/20 16:30 06/11/20 04:59 03/23/20 12:52 Dextrose (Dextrose 50%) 50 ml Q30M PRN IV Hypoglycemia 03/18/20 16:30 06/08/20 14:29 Dextrose/Sodium Chloride 1,000 ml @ 75 mls/hr [id number] IV 03/23/20 14:00 04/22/20 13:59 03/25/20 02:29 Finasteride (Proscar) 5 mg DAILY ORAL 03/19/20 09:00 06/09/20 08:59 03/25/20 08:12 Insulin Aspart (NovoLOG) No Dose BEFORE MEALS AND HS SUBQ 03/18/20 16:30 06/15/20 06:29 03/24/20 06:00 Lidocaine HCl (Xylocaine Jelly 2%) 1 applic DAILYPRN PRN TOPIC for pain in penile region 03/18/20 16:30 06/16/20 16:29 Metoprolol Tartrate (Lopressor) 12.5 mg BID ORAL 03/18/20 18:00 06/08/20 21:59 03/24/20 17:08 Nateglinide (Starlix) 120 mg DAILY ORAL 03/19/20 09:00 04/10/20 08:59 03/25/20 08:12 Nitroglycerin (Ntg) 0.4 mg Q5M PRN SL Prn Chest Pain 03/18/20 16:30 04/09/20 14:29 Ondansetron HCl (Zofran) 4 mg Q6H PRN IVP Nausea & Vomiting 03/18/20 16:45 04/09/20 04:44 Polyethylene Glycol (Miralax) 17 gm DAILYPRN PRN ORAL Constipation 03/18/20 16:31 04/17/20 16:30 Tamsulosin HCl (Flomax) 0.4 mg BEDTIME ORAL 03/18/20 21:00 04/09/20 20:59 03/24/20 20:59 Laboratory Tests 03/24/20 11:43: POC Whole Blood Glucose 119H 03/24/20 16:02: POC Whole Blood Glucose [Pending] 03/24/20 20:02: POC Whole Blood Glucose 83 03/25/20 05:59: POC Whole Blood Glucose 106 03/25/20 06:45: White Blood Count 25.0*H, Red Blood Count 3.74L, Hemoglobin 9.6L, Hematocrit 30.7L, Mean Corpuscular Volume 82, Mean Corpuscular Hemoglobin 25.7L, Mean Corpuscular Hemoglobin Concent 31.4L, Red Cell Distribution Width 16.6H, Platelet Count 232, Mean Platelet Volume 5.3L, Neutrophils (%) (Auto) , Lymphocytes (%) (Auto) , Monocytes (%) (Auto) , Eosinophils (%) (Auto) , Basophils (%) (Auto) , Neutrophils % (Manual) [Pending], Lymphocytes % (Manual) [Pending], Platelet Estimate [Pending], Platelet Morphology [Pending], Sodium Level 140, Potassium Level 3.7, Chloride Level 110H, Carbon Dioxide Level 26, Anion Gap 4L, Blood Urea Nitrogen 6L, Creatinine 1.0, Estimat Glomerular Filtration Rate > 60, Glucose Level 109#H, Calcium Level 8.0L Height (Feet): 5 Height (Inches): 7.00 Weight (Pounds): 185 Objective exam stable hernandez indwelling, CBI mild-moderate rate urine remains blood-tinged renal u/s (03/20) noted Macho Allen MD Mar 25, 2020 09:52
--- NOTE | 2020-03-25 11:43 | Pulmonology Progress Note ---
Subjective ROS Limited/Unobtainable: No Interval Events: c/o dry sking Allergies: Coded Allergies: No Known Allergies (Unverified , 04/09/16) Subjective afebrile, still significant leukocytosis, no signs fo resp distress CBI with light cranberry urine color in Robertson, no clots noted Hgb 9.6 this am renal parameters stable Objective Last 24 Hour Vital Signs Date Time Temp Pulse Resp B/P (MAP) Pulse Ox O2 Delivery O2 Flow Rate FiO2 03/25/20 09:00 Nasal Cannula 2.0 03/25/20 08:11 73 104/56 03/25/20 08:00 98.2 73 19 104/56 (72) 93 03/25/20 04:00 97.9 69 20 92/54 (67) 91 03/25/20 00:00 97.5 88 19 119/62 (81) 96 03/24/20 21:00 Nasal Cannula 2.0 03/24/20 20:00 99.0 61 21 111/56 (74) 100 03/24/20 17:08 75 115/62 03/24/20 16:03 98.6 75 18 115/62 (79) 97 03/24/20 11:47 96.8 61 18 104/51 (68) 98 Intake and Output 03/24/20 03/25/20 19:00 07:00 Intake Total 900 ml 435 ml Output Total 1270 ml 1000 ml Balance -370 ml -565 ml Intake Oral 360 ml IV Total 900 ml 75 ml Output Urine Total 1270 ml 1000 ml General Appearance: no acute distress, other - elderly chronically ill looking AA male HEENT: normocephalic, atraumatic, anicteric Respiratory: chest wall non-tender, lungs clear, normal breath sounds, no respiratory distress Cardiovascular: normal peripheral pulses, normal rate Abdomen: normal bowel sounds, soft, non tender Genitourinary: other - Robertson with CBI, urine light cranberry color, no clots Extremities: pedal pulses normal Skin: no rash 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 normal, abnormal gait, alert, responsive Lymphatic: no neck adenopathy Laboratory Tests 03/24/20 11:43: POC Whole Blood Glucose 119H 03/24/20 16:02: POC Whole Blood Glucose [Pending] 03/24/20 20:02: POC Whole Blood Glucose 83 03/25/20 05:59: POC Whole Blood Glucose 106 03/25/20 06:45: White Blood Count 25.0*H, Red Blood Count 3.74L, Hemoglobin 9.6L, Hematocrit 30.7L, Mean Corpuscular Volume 82, Mean Corpuscular Hemoglobin 25.7L, Mean Corpuscular Hemoglobin Concent 31.4L, Red Cell Distribution Width 16.6H, Platelet Count 232, Mean Platelet Volume 5.3L, Neutrophils (%) (Auto) , Lymphocytes (%) (Auto) , Monocytes (%) (Auto) , Eosinophils (%) (Auto) , Basophils (%) (Auto) , Differential Total Cells Counted 100, Neutrophils % ( Manual) 89H, Lymphocytes % (Manual) 6L, Monocytes % (Manual) 4, Eosinophils % ( Manual) 0, Basophils % (Manual) 1, Band Neutrophils 0, Platelet Estimate Adequate, Platelet Morphology Normal, Hypochromasia 2+, Anisocytosis 1+, Sodium Level 140, Potassium Level 3.7, Chloride Level 110H, Carbon Dioxide Level 26, Anion Gap 4L, Blood Urea Nitrogen 6L, Creatinine 1.0, Estimat Glomerular Filtration Rate > 60, Glucose Level 109#H, Calcium Level 8.0L 03/25/20 11:21: POC Whole Blood Glucose 126H Current Medications Medications (Trade) Dose Ordered Sig/Levi Route PRN Reason Start Time Stop Time Status Last Admin Dose Admin Acetaminophen (Tylenol) 650 mg Q4H PRN ORAL fever (T>100.5F) 03/18/20 16:45 04/09/20 04:44 Atorvastatin Calcium (Lipitor) 20 mg BEDTIME ORAL 03/18/20 21:00 06/09/20 20:59 03/24/20 20:59 Dextrose (Dextrose 50%) 25 ml Q30M PRN IV Hypoglycemia 03/18/20 16:30 06/11/20 04:59 03/23/20 12:52 Dextrose (Dextrose 50%) 50 ml Q30M PRN IV Hypoglycemia 03/18/20 16:30 06/08/20 14:29 Dextrose/Sodium Chloride 1,000 ml @ 75 mls/hr [id number] IV 03/23/20 14:00 04/22/20 13:59 03/25/20 02:29 Finasteride (Proscar) 5 mg DAILY ORAL 03/19/20 09:00 06/09/20 08:59 03/25/20 08:12 Insulin Aspart (NovoLOG) No Dose BEFORE MEALS AND HS SUBQ 03/18/20 16:30 06/15/20 06:29 03/24/20 06:00 Lidocaine HCl (Xylocaine Jelly 2%) 1 applic DAILYPRN PRN TOPIC for pain in penile region 03/18/20 16:30 06/16/20 16:29 Metoprolol Tartrate (Lopressor) 12.5 mg BID ORAL 03/18/20 18:00 06/08/20 21:59 03/24/20 17:08 Nateglinide (Starlix) 120 mg DAILY ORAL 03/19/20 09:00 04/10/20 08:59 03/25/20 08:12 Nitroglycerin (Ntg) 0.4 mg Q5M PRN SL Prn Chest Pain 03/18/20 16:30 04/09/20 14:29 Ondansetron HCl (Zofran) 4 mg Q6H PRN IVP Nausea & Vomiting 03/18/20 16:45 04/09/20 04:44 Polyethylene Glycol (Miralax) 17 gm DAILYPRN PRN ORAL Constipation 03/18/20 16:31 04/17/20 16:30 Tamsulosin HCl (Flomax) 0.4 mg BEDTIME ORAL 03/18/20 21:00 04/09/20 20:59 03/24/20 20:59 Assessment/Plan Assessment/Plan ASSESSMENT Acute CA Sepsis UTI/pyelo-with E. coli ESBL Gross hematuria Anemia of acute blood loss , requiring multiple blood transfusion Bladder CA Status post cystoscopy, TURBT, ureteral stent exchange and removal 813 HTN DM History of CVA Leukocytosis Neurogenic bladder Chronic left hydronephrosis PLAN OF CARE MS floor O2 titrate to keep sat above 92 pulmonary toilet all imaging noted s/p cystoscopy, TURBT and exchange of ureteral stent abx as per ID- completed 03/23 BCX NGT UCX + E. coli ESBL , repeated UCX NGT renal parameters remained stable continue Flomax and Proscar CBI to keep clear hand irrigation PRN Echo with pEF troponin trending medical management with beta-amarjit off ASA secondary to severe anemia BS management with SSI monitor H&H with goal to keep Hgb>7 s/p 5 units PRBC leukocytosis likely reactive secondary to tumor burden supportive care case discussed and evaluated by supervising physician Ellen Mei NP Mar 25, 2020 11:43
--- NOTE | 2020-03-25 14:34 | Internal Med Progress Note ---
Subjective Physician Name Jean-Claude Peter Attending Physician Jaziel Lowe MD Current Medications Medications (Trade) Dose Ordered Sig/Levi Route PRN Reason Start Time Stop Time Status Last Admin Dose Admin Acetaminophen (Tylenol) 650 mg Q4H PRN ORAL fever (T>100.5F) 03/18/20 16:45 04/09/20 04:44 Atorvastatin Calcium (Lipitor) 20 mg BEDTIME ORAL 03/18/20 21:00 06/09/20 20:59 03/24/20 20:59 Dextrose (Dextrose 50%) 25 ml Q30M PRN IV Hypoglycemia 03/18/20 16:30 06/11/20 04:59 03/23/20 12:52 Dextrose (Dextrose 50%) 50 ml Q30M PRN IV Hypoglycemia 03/18/20 16:30 06/08/20 14:29 Dextrose/Sodium Chloride 1,000 ml @ 75 mls/hr [id number] IV 03/23/20 14:00 04/22/20 13:59 03/25/20 02:29 Finasteride (Proscar) 5 mg DAILY ORAL 03/19/20 09:00 06/09/20 08:59 03/25/20 08:12 Insulin Aspart (NovoLOG) No Dose BEFORE MEALS AND HS SUBQ 03/18/20 16:30 06/15/20 06:29 03/24/20 06:00 Lidocaine HCl (Xylocaine Jelly 2%) 1 applic DAILYPRN PRN TOPIC for pain in penile region 03/18/20 16:30 06/16/20 16:29 Metoprolol Tartrate (Lopressor) 12.5 mg BID ORAL 03/18/20 18:00 06/08/20 21:59 03/24/20 17:08 Nateglinide (Starlix) 120 mg DAILY ORAL 03/19/20 09:00 04/10/20 08:59 03/25/20 08:12 Nitroglycerin (Ntg) 0.4 mg Q5M PRN SL Prn Chest Pain 03/18/20 16:30 04/09/20 14:29 Ondansetron HCl (Zofran) 4 mg Q6H PRN IVP Nausea & Vomiting 03/18/20 16:45 04/09/20 04:44 Polyethylene Glycol (Miralax) 17 gm DAILYPRN PRN ORAL Constipation 03/18/20 16:31 04/17/20 16:30 Tamsulosin HCl (Flomax) 0.4 mg BEDTIME ORAL 03/18/20 21:00 04/09/20 20:59 03/24/20 20:59 Allergies: Coded Allergies: No Known Allergies (Unverified , 04/09/16) Subjective 84 YO M with a history of bladder cancer admitted with chest pain. Now severe anemia and hematuria. Cover for Int Med-DR Lowe. Objective Last Vital Signs Date Time Temp Pulse Resp B/P (MAP) Pulse Ox O2 Delivery O2 Flow Rate FiO2 03/25/20 11:50 97.3 63 16 132/58 (82) 93 03/25/20 09:00 Nasal Cannula 2.0 03/23/20 19:06 32 Laboratory Tests Test 03/24/20 16:02 03/24/20 20:02 03/25/20 05:59 03/25/20 06:45 POC Whole Blood Glucose Pending 83 MG/DL (74-106) 106 MG/DL (74-106) White Blood Count 25.0 K/UL (4.8-10.8) *H Red Blood Count 3.74 M/UL (4.70-6.10) L Hemoglobin 9.6 G/DL (14.2-18.0) L Hematocrit 30.7 % (42.0-52.0) L Mean Corpuscular Volume 82 FL (80-99) Mean Corpuscular Hemoglobin 25.7 PG (27.0-31.0) L Mean Corpuscular Hemoglobin Concent 31.4 G/DL (32.0-36.0) L Red Cell Distribution Width 16.6 % (11.6-14.8) H Platelet Count 232 K/UL (150-450) Mean Platelet Volume 5.3 FL (6.5-10.1) L Neutrophils (%) (Auto) % (45.0-75.0) Lymphocytes (%) (Auto) % (20.0-45.0) Monocytes (%) (Auto) % (1.0-10.0) Eosinophils (%) (Auto) % (0.0-3.0) Basophils (%) (Auto) % (0.0-2.0) Differential Total Cells Counted 100 Neutrophils % (Manual) 89 % (45-75) H Lymphocytes % (Manual) 6 % (20-45) L Monocytes % (Manual) 4 % (1-10) Eosinophils % (Manual) 0 % (0-3) Basophils % (Manual) 1 % (0-2) Band Neutrophils 0 % (0-8) Platelet Estimate Adequate Platelet Morphology Normal Hypochromasia 2+ Anisocytosis 1+ Sodium Level 140 MMOL/L (136-145) Potassium Level 3.7 MMOL/L (3.5-5.1) Chloride Level 110 MMOL/L (98-107) H Carbon Dioxide Level 26 MMOL/L (21-32) Anion Gap 4 mmol/L (5-15) L Blood Urea Nitrogen 6 mg/dL (7-18) L Creatinine 1.0 MG/DL (0.55-1.30) Estimat Glomerular Filtration Rate > 60 mL/min (>60) Glucose Level 109 MG/DL (74-106) #H Calcium Level 8.0 MG/DL (8.5-10.1) L Test 03/25/20 11:21 POC Whole Blood Glucose 126 MG/DL (74-106) H Intake and Output 03/24/20 03/25/20 19:00 07:00 Intake Total 900 ml 435 ml Output Total 1270 ml 1000 ml Balance -370 ml -565 ml Intake Oral 360 ml IV Total 900 ml 75 ml Output Urine Total 1270 ml 1000 ml Objective PHYSICAL EXAMINATION: GENERAL: The patient is a well-developed and well-nourished male, in no apparent distress. HEENT: Eyes, pupils are equal and responsive to light and accommodation. Extraocular movements are intact. NECK: Supple without lymphadenopathy. CHEST: Lungs are clear to auscultation bilaterally without wheezes or rales. CARDIOVASCULAR: Regular rhythm and rate. S1, S2 are normal without murmurs, rubs, or gallops. ABDOMEN: Soft, nontender, and nondistended. Positive bowel sounds. No evidence of hepatosplenomegaly. Currently, no rebound or guarding noted. EXTREMITIES: Negative for clubbing, cyanosis, or edema. RECTAL/GENITAL: Not performed. NEUROLOGIC: Cranial nerves II through XII are grossly intact without focal deficits. Motor strength is 5/5 bilaterally. Deep tendon reflexes are 2+ plantar. Assessment/Plan Assessment/Plan ASSESSMENT: This is an 84-year-old male. 1. Chest pain. 2. Elevated troponin level. 3. Bladder cancer. 4. Gastritis. 5. Hypertension. 6. Diabetes type 2. 7. Atrioventricular conduction defect. 8. Alzheimer's dementia. 9. Cerebrovascular disease. 10. Right hemiplegia. 11. Pacemaker in situ. 12. Urinary tract infection=ESBL E. Coli 13. Persistant leukocytosis due to UTI-resolving 14. Hematuria 15. severe anemia TREATMENT: 1. Chest pain/elevated troponin. A Cardiology consultation has been obtained with Dr. Nj Valenzuela. We will follow recommendations of Cardiology. 2. Bladder cancer. CT=bladder mass increased in size from prior. Urology= Dr. Macho Allen. The patient is status post transurethral resection of bladder tumor x2. We will follow recommendations of Urology. 3. Gastritis. Continue Protonix as above. 4. Hypertension. 5. Diabetes type 2. A NovoLog sliding scale has been instituted. 6. Atrioventricular conduction defect. The patient is status post pacemaker implantation. 7. Alzheimer's dementia. 8. Cerebrovascular disease, status post cerebrovascular accident. 9. Right hemiplegia. 10. ABX=S/P meropenem; continue zosyn and vanco per ID=Dr Darby 11. Bladder irrigation per urology 12. S/P trransfusion 5 units PRBC 13. S/P cystoscopy and transurethral resection of bladder tumor with left stent replacement on Thu03/23/20 by urology=Dr Aleln 14. Discharge planning: [facility] and [facility] hospice Jean-Claude Peter MD Mar 25, 2020 14:34
--- NOTE | 2020-03-25 16:35 | Cardiology Progress Note ---
Assessment/Plan Problem List: (1) ACS (acute coronary syndrome) (2) Sepsis (3) Hematuria (4) HTN (hypertension) (5) Hydronephrosis (6) UTI (urinary tract infection) (7) Bladder cancer Status: stable, progressing Status Narrative s/p nonSTEMI on adm, w/ posterior wall HK noted on ECHO, but overall nl EF ( 50s ) hx of PAF sick sinus syndrome/ s/p pacemaker Bladder CA/ s/p surgery. persistent hematuria, hydronephrosis, s/p ureteral stent UTI Assessment/Plan Management of bladder ca per urology and oncology. Continue statin, b amarjit for CAD. No aspirin due to bleed AF /sick sinus syndrome - no anticoagulation due to bleed Not a candidate for invasive cardiac intervention due to advanced bladder CA and other comorbidities. Subjective ROS Limited/Unobtainable: No Subjective Cardiology for Dr. Valenzuela Mr Boyd has c/o chest pain, palpitations, or dyspnea. Asking for dc home Objective Last 24 Hour Vital Signs Date Time Temp Pulse Resp B/P (MAP) Pulse Ox O2 Delivery O2 Flow Rate FiO2 03/25/20 11:50 97.3 63 16 132/58 (82) 93 03/25/20 09:00 Nasal Cannula 2.0 03/25/20 08:11 73 104/56 03/25/20 08:00 98.2 73 19 104/56 (72) 93 03/25/20 04:00 97.9 69 20 92/54 (67) 91 03/25/20 00:00 97.5 88 19 119/62 (81) 96 03/24/20 21:00 Nasal Cannula 2.0 03/24/20 20:00 99.0 61 21 111/56 (74) 100 03/24/20 17:08 75 115/62 General Appearance: WD/WN, no apparent distress, alert EENT: PERRL/EOMI Neck: supple, no JVD Rhythm: NSR Cardiovascular: normal rate, systolic murmur, irregularly irregular, other - ii /vi SHARITA along LSB Respiratory/Chest: lungs clear, other - clear anteriorly Abdomen: non tender, soft Extremities: no swelling Intake and Output 03/24/20 03/25/20 19:00 07:00 Intake Total 900 ml 435 ml Output Total 1270 ml 1000 ml Balance -370 ml -565 ml Intake Oral 360 ml IV Total 900 ml 75 ml Output Urine Total 1270 ml 1000 ml Laboratory Tests Test 03/24/20 20:02 03/25/20 05:59 03/25/20 06:45 03/25/20 11:21 POC Whole Blood Glucose 83 MG/DL (74-106) 106 MG/DL (74-106) 126 MG/DL (74-106) H White Blood Count 25.0 K/UL (4.8-10.8) *H Red Blood Count 3.74 M/UL (4.70-6.10) L Hemoglobin 9.6 G/DL (14.2-18.0) L Hematocrit 30.7 % (42.0-52.0) L Mean Corpuscular Volume 82 FL (80-99) Mean Corpuscular Hemoglobin 25.7 PG (27.0-31.0) L Mean Corpuscular Hemoglobin Concent 31.4 G/DL (32.0-36.0) L Red Cell Distribution Width 16.6 % (11.6-14.8) H Platelet Count 232 K/UL (150-450) Mean Platelet Volume 5.3 FL (6.5-10.1) L Neutrophils (%) (Auto) % (45.0-75.0) Lymphocytes (%) (Auto) % (20.0-45.0) Monocytes (%) (Auto) % (1.0-10.0) Eosinophils (%) (Auto) % (0.0-3.0) Basophils (%) (Auto) % (0.0-2.0) Differential Total Cells Counted 100 Neutrophils % (Manual) 89 % (45-75) H Lymphocytes % (Manual) 6 % (20-45) L Monocytes % (Manual) 4 % (1-10) Eosinophils % (Manual) 0 % (0-3) Basophils % (Manual) 1 % (0-2) Band Neutrophils 0 % (0-8) Platelet Estimate Adequate Platelet Morphology Normal Hypochromasia 2+ Anisocytosis 1+ Sodium Level 140 MMOL/L (136-145) Potassium Level 3.7 MMOL/L (3.5-5.1) Chloride Level 110 MMOL/L (98-107) H Carbon Dioxide Level 26 MMOL/L (21-32) Anion Gap 4 mmol/L (5-15) L Blood Urea Nitrogen 6 mg/dL (7-18) L Creatinine 1.0 MG/DL (0.55-1.30) Estimat Glomerular Filtration Rate > 60 mL/min (>60) Glucose Level 109 MG/DL (74-106) #H Calcium Level 8.0 MG/DL (8.5-10.1) Sue Gutiérrez MD Mar 25, 2020 16:35
--- NOTE | 2020-03-25 19:46 | NUR ---
NURSE HAND-OFF: Important Events on Shift:[continuous bladder irrigation, uneventful] Patient Status: [stable] Diet: [CCHO Mech soft ground, nectar thick liquid] Pending Orders: [CBC, BMP] Pending Results/Labs:[] Pending MD notification:[] Latest Vital Signs: Temperature 97.6 , Pulse 79 , B/P 130 /62 , Respiratory Rate 16 , O2 SAT 97 , Nasal Cannula, O2 Flow Rate 2.0 . Vital Sign Comment: [] Latest Damon Fall Score: 50 Fall Risk: High Risk Safety Measures: Call light Within Reach, Bed Alarm Zone 1, Side Rails Side Rails x3, Bed position Low and Locked. Fall Precautions: Yellow Socks Yellow Gown Door Sign Patient Fall Education Report given to [DONELL Grove].
--- NOTE | 2020-03-25 19:53 | NUR ---
NURSE NOTES: Received patient comfortably sleeping, no SOB, on continuous bladder irrigation.
[2020-03-25] MEDS: Tamsulosin 0.4mg cap ORAL SCH (20:40)
[2020-03-25] MEDS: Atorvastatin 20mg tab ORAL SCH (20:40)
[2020-03-26 04:00] VITALS: BP 144/71
[2020-03-26] MEDS: NovoLOG Insulin Flexpen SUBQ SCH ×3 (05:31→16:30)
[2020-03-26] MEDS: D5NS 1,000 ML IV SCH (05:31)
[2020-03-26 06:12] LABS: HEMATOCRIT 28.2 % (42.0-52.0); HEMOGLOBIN 9.1 G/DL (14.2-18.0); MEAN CORPUSCULAR VOLUME 82 FL (80-99); PLATELET COUNT 229 K/UL (150-450); RED BLOOD COUNT 3.45 M/UL (4.70-6.10); RED CELL DISTRIBUTION WIDTH 16.3 % (11.6-14.8)
[2020-03-26 06:27] LABS: ANION GAP 10 mmol/L (5-15); BLOOD UREA NITROGEN 6 mg/dL (7-18); CALCIUM 7.8 MG/DL (8.5-10.1); CARBON DIOXIDE 24 MMOL/L (21-32); CHLORIDE 107 MMOL/L (98-107); CREATININE 0.9 MG/DL (0.55-1.30); POTASSIUM 3.5 MMOL/L (3.5-5.1); SODIUM 141 MMOL/L (136-145)
--- NOTE | 2020-03-26 07:13 | NUR ---
HAND-OFF: Report given to Kathi Hollingsworth RN.
--- NOTE | 2020-03-26 07:21 | Hematology/Onc Progress Note ---
Assessment/Plan Assessment/Plan # Bladder cancer extensive stage, WORSENED with PD1+ on biopsy from 12/2018 results, iintially with L hydronephrosis/L Hydroureter 2ry to extensive bladder tumor, that is extensive stage. 11/25 SP Cystoscopy, urethral calibration , transurethral resection of extensive bladder tumor with fulguration, and right retrograde pyelogram. Findings: The patient had what appeared to be a large bladder tumor that involved most of the left side of the bladder extending posteriorly and completely obliterating the left ureteral orifice. Seen by urology --> CT abd/p: Limited assessment of the GI tract, due to lack of enteric contrast administration. Moderate left hydronephrosis and hydroureter. Hydroureter extends to the bladder, where there is asymmetric posterolateral wall thickening raises concern for neoplasm. There is also generalized wall thickening, possibly on the basis of cystitis or chronic bladder outlet obstruction. No definite findings to suggest etiology of stated clinical history of GI bleed. Cholelithiasis. Basilar pulmonary atelectasis and equivocal slight interstitial congestion. L1 vertebral body compression fracture deformity, age indeterminate. --> appreciate urology recs, pulm recs --> 12/31/18: s/p stent placement --> CT A/P 03/2020 Mass within the bladder increased in size since previous examination. Presumably this represents bladder neoplasm. Air is also noted within the bladder and the possibility of bladder infection or internal fistula to the bladder should b considered. Left hydronephrosis and with air in the left renal collecting system. There is a left ureteral stent. The air likely is coming from the bladder but the possibility of infection again is not excluded. --> is now s/p TURB resection x 2 --> urology and pcp followup # Anemia due to hematuira --> appreciate gi recs, in prior endoscopy negatve --> for hematuria is on AMICAR --> anemia panel has been reviewed before --> 3 way hernandez with irrigation --> transfuse if hgb <7 --> per uro recs --> hgb trend 9.5-->7.9-->11->9.7 ==> may need iv iron # Leukocytosis is likely due to malignancy and esbl uti --> on abx meropenem-->zosyn --> wbc 24-->25->27 --> per id # Hydronephrosis --> s/p stent placement # Chronic cerebrovascular accident (CVA) --> per neuro as needed # Diabetes mellitus II --> accuchecks qac and qhs --> insulin coverage as needed # Alzheimer's dementia # 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 Greatly appreciate consultation! Subjective Constitutional: Denies: no symptoms, chills, fever, malaise, weakness, other Cardiovascular: Denies: no symptoms, chest pain, edema, irregular heart rate, lightheadedness, palpitations, syncope, other Respiratory: Denies: no symptoms, cough, shortness of breath, SOB with excertion, SOB at rest, sputum, wheezing, other Gastrointestinal/Abdominal: Denies: no symptoms, abdomen distended, abdominal pain, black stools, tarry stools, blood in stool, constipated, diarrhea, difficulty swallowing, nausea, poor appetite, poor fluid intake, rectal bleeding , vomiting, other Genitourinary: Denies: no symptoms, burning, discharge, frequency, flank pain, hematuria, incontinence, pain, urgency, other 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: Denies: no symptoms, anxiety, depressed, emotional problems, headache, numbness, paresthesia, pre-existing deficit, seizure, tingling, tremors, weakness, other Endocrine: Denies: no symptoms, excessive sweating, flushing, intolerance to cold, intolerance to heat, increased hunger, increased thirst, increased urine, unexplained weight gain, unexplained weight loss, other Hematologic/Lymphatic: Denies: no symptoms, anemia, easy bleeding, easy bruising, adenopathy, other Allergies: Coded Allergies: No Known Allergies (Unverified , 04/09/16) Subjective 03/23 remains on cbi, no bleeding, wbc 25k, abx prn, is on zosyn 03/24 urine remains light pink, without bleeding, high wbc, on abx, seen by uro 03/25 is on 2l nc, no bleeding, on cbi as per uro no major events otherwise 03/26 remains confused, on nc, still with blood pink urine in hernandez bag Objective Objective Current Medications Medications (Trade) Dose Ordered Sig/Levi Route PRN Reason Start Time Stop Time Status Last Admin Dose Admin Acetaminophen (Tylenol) 650 mg Q4H PRN ORAL fever (T>100.5F) 03/18/20 16:45 04/09/20 04:44 Atorvastatin Calcium (Lipitor) 20 mg BEDTIME ORAL 03/18/20 21:00 06/09/20 20:59 03/25/20 20:40 Dextrose (Dextrose 50%) 25 ml Q30M PRN IV Hypoglycemia 03/18/20 16:30 06/11/20 04:59 03/23/20 12:52 Dextrose (Dextrose 50%) 50 ml Q30M PRN IV Hypoglycemia 03/18/20 16:30 06/08/20 14:29 Dextrose/Sodium Chloride 1,000 ml @ 75 mls/hr [id number] IV 03/23/20 14:00 04/22/20 13:59 03/26/20 05:31 Finasteride (Proscar) 5 mg DAILY ORAL 03/19/20 09:00 06/09/20 08:59 03/25/20 08:12 Insulin Aspart (NovoLOG) No Dose BEFORE MEALS AND HS SUBQ 03/18/20 16:30 06/15/20 06:29 03/24/20 06:00 Lidocaine HCl (Xylocaine Jelly 2%) 1 applic DAILYPRN PRN TOPIC for pain in penile region 03/18/20 16:30 06/16/20 16:29 Metoprolol Tartrate (Lopressor) 12.5 mg BID ORAL 03/18/20 18:00 06/08/20 21:59 03/25/20 17:44 Nateglinide (Starlix) 120 mg DAILY ORAL 03/19/20 09:00 04/10/20 08:59 03/25/20 08:12 Nitroglycerin (Ntg) 0.4 mg Q5M PRN SL Prn Chest Pain 03/18/20 16:30 04/09/20 14:29 Ondansetron HCl (Zofran) 4 mg Q6H PRN IVP Nausea & Vomiting 03/18/20 16:45 04/09/20 04:44 Polyethylene Glycol (Miralax) 17 gm DAILYPRN PRN ORAL Constipation 03/18/20 16:31 04/17/20 16:30 Tamsulosin HCl (Flomax) 0.4 mg BEDTIME ORAL 03/18/20 21:00 04/09/20 20:59 03/25/20 20:40 Last 24 Hour Vital Signs Date Time Temp Pulse Resp B/P (MAP) Pulse Ox O2 Delivery O2 Flow Rate FiO2 03/26/20 04:00 98.0 68 20 144/71 (95) 97 03/25/20 23:59 98.7 70 20 139/72 (94) 96 03/25/20 20:18 Nasal Cannula 2.0 03/25/20 20:06 98.2 66 20 146/64 (91) 98 03/25/20 19:18 79 16 97 Nasal Cannula 2.0 28 03/25/20 17:44 65 130/62 03/25/20 16:00 97.6 65 18 130/62 (84) 98 03/25/20 11:50 97.3 63 16 132/58 (82) 93 03/25/20 09:00 Nasal Cannula 2.0 03/25/20 08:11 73 104/56 03/25/20 08:00 98.2 73 19 104/56 (72) 93 03/25/20 04:00 97.9 69 20 92/54 (67) 91 03/25/20 00:00 97.5 88 19 119/62 (81) 96 03/24/20 21:00 Nasal Cannula 2.0 03/24/20 20:00 99.0 61 21 111/56 (74) 100 03/24/20 17:08 75 115/62 03/24/20 16:03 98.6 75 18 115/62 (79) 97 03/24/20 11:47 96.8 61 18 104/51 (68) 98 03/24/20 08:30 Nasal Cannula 3.0 03/24/20 08:17 66 99/46 03/24/20 08:10 98.9 70 18 101/50 (67) 98 Intake and Output 03/25/20 03/26/20 19:00 07:00 Intake Total 1785 ml 1040 ml Output Total 1000 ml 900 ml Balance 785 ml 140 ml Intake Oral 960 ml 140 ml IV Total 825 ml 900 ml Output Urine Total 1000 ml 900 ml Labs Test 03/23/20 12:08 03/23/20 12:44 03/23/20 13:19 03/23/20 20:56 POC Whole Blood Glucose 138 MG/DL (74-106) Test 03/24/20 05:57 03/24/20 07:30 03/24/20 11:43 03/24/20 16:02 POC Whole Blood Glucose 144 MG/DL (74-106) 119 MG/DL (74-106) White Blood Count 26.5 K/UL (4.8-10.8) Red Blood Count 3.72 M/UL (4.70-6.10) Hemoglobin 9.7 G/DL (14.2-18.0) Hematocrit 30.4 % (42.0-52.0) Mean Corpuscular Volume 82 FL (80-99) Mean Corpuscular Hemoglobin 26.2 PG (27.0-31.0) Mean Corpuscular Hemoglobin Concent 32.1 G/DL (32.0-36.0) Red Cell Distribution Width 16.4 % (11.6-14.8) Platelet Count 247 K/UL (150-450) Mean Platelet Volume 5.4 FL (6.5-10.1) Neutrophils (%) (Auto) % (45.0-75.0) Lymphocytes (%) (Auto) % (20.0-45.0) Monocytes (%) (Auto) % (1.0-10.0) Eosinophils (%) (Auto) % (0.0-3.0) Basophils (%) (Auto) % (0.0-2.0) Differential Total Cells Counted 100 Neutrophils % (Manual) 92 % (45-75) Lymphocytes % (Manual) 4 % (20-45) Monocytes % (Manual) 4 % (1-10) Eosinophils % (Manual) 0 % (0-3) Basophils % (Manual) 0 % (0-2) Band Neutrophils 0 % (0-8) Platelet Estimate Adequate Platelet Morphology Normal Hypochromasia 2+ Anisocytosis 1+ Sodium Level 141 MMOL/L (136-145) Potassium Level 4.1 MMOL/L (3.5-5.1) Chloride Level 109 MMOL/L (98-107) Carbon Dioxide Level 24 MMOL/L (21-32) Anion Gap 8 mmol/L (5-15) Blood Urea Nitrogen 6 mg/dL (7-18) Creatinine 1.2 MG/DL (0.55-1.30) Estimat Glomerular Filtration Rate > 60 mL/min (>60) Glucose Level 298 MG/DL (74-106) Calcium Level 7.9 MG/DL (8.5-10.1) Test 03/24/20 20:02 03/25/20 05:59 03/25/20 06:45 03/25/20 11:21 POC Whole Blood Glucose 83 MG/DL (74-106) 106 MG/DL (74-106) 126 MG/DL (74-106) White Blood Count 25.0 K/UL (4.8-10.8) Red Blood Count 3.74 M/UL (4.70-6.10) Hemoglobin 9.6 G/DL (14.2-18.0) Hematocrit 30.7 % (42.0-52.0) Mean Corpuscular Volume 82 FL (80-99) Mean Corpuscular Hemoglobin 25.7 PG (27.0-31.0) Mean Corpuscular Hemoglobin Concent 31.4 G/DL (32.0-36.0) Red Cell Distribution Width 16.6 % (11.6-14.8) Platelet Count 232 K/UL (150-450) Mean Platelet Volume 5.3 FL (6.5-10.1) Neutrophils (%) (Auto) % (45.0-75.0) Lymphocytes (%) (Auto) % (20.0-45.0) Monocytes (%) (Auto) % (1.0-10.0) Eosinophils (%) (Auto) % (0.0-3.0) Basophils (%) (Auto) % (0.0-2.0) Differential Total Cells Counted 100 Neutrophils % (Manual) 89 % (45-75) Lymphocytes % (Manual) 6 % (20-45) Monocytes % (Manual) 4 % (1-10) Eosinophils % (Manual) 0 % (0-3) Basophils % (Manual) 1 % (0-2) Band Neutrophils 0 % (0-8) Platelet Estimate Adequate Platelet Morphology Normal Hypochromasia 2+ Anisocytosis 1+ Sodium Level 140 MMOL/L (136-145) Potassium Level 3.7 MMOL/L (3.5-5.1) Chloride Level 110 MMOL/L (98-107) Carbon Dioxide Level 26 MMOL/L (21-32) Anion Gap 4 mmol/L (5-15) Blood Urea Nitrogen 6 mg/dL (7-18) Creatinine 1.0 MG/DL (0.55-1.30) Estimat Glomerular Filtration Rate > 60 mL/min (>60) Glucose Level 109 MG/DL (74-106) Calcium Level 8.0 MG/DL (8.5-10.1) Test 03/25/20 16:49 03/25/20 20:26 03/26/20 05:08 03/26/20 05:20 POC Whole Blood Glucose 129 MG/DL (74-106) 116 MG/DL (74-106) 95 MG/DL (74-106) White Blood Count 23.0 K/UL (4.8-10.8) Red Blood Count 3.45 M/UL (4.70-6.10) Hemoglobin 9.1 G/DL (14.2-18.0) Hematocrit 28.2 % (42.0-52.0) Mean Corpuscular Volume 82 FL (80-99) Mean Corpuscular Hemoglobin 26.4 PG (27.0-31.0) Mean Corpuscular Hemoglobin Concent 32.3 G/DL (32.0-36.0) Red Cell Distribution Width 16.3 % (11.6-14.8) Platelet Count 229 K/UL (150-450) Mean Platelet Volume 5.6 FL (6.5-10.1) Neutrophils (%) (Auto) % (45.0-75.0) Lymphocytes (%) (Auto) % (20.0-45.0) Monocytes (%) (Auto) % (1.0-10.0) Eosinophils (%) (Auto) % (0.0-3.0) Basophils (%) (Auto) % (0.0-2.0) Sodium Level 141 MMOL/L (136-145) Potassium Level 3.5 MMOL/L (3.5-5.1) Chloride Level 107 MMOL/L (98-107) Carbon Dioxide Level 24 MMOL/L (21-32) Anion Gap 10 mmol/L (5-15) Blood Urea Nitrogen 6 mg/dL (7-18) Creatinine 0.9 MG/DL (0.55-1.30) Estimat Glomerular Filtration Rate > 60 mL/min (>60) Glucose Level 91 MG/DL (74-106) Calcium Level 7.8 MG/DL (8.5-10.1) Height (Feet): 5 Height (Inches): 7.00 Weight (Pounds): 185 Objective Physical Exam: Vitals: reviewed General: NAD HEENT: nc, at Neck: supple Chest: clear breath sounds bilaterally Cardiovascular: RRR, no s3, s4 Abdomen: soft, nontender, nd Extremities: no cce, normal range of motion Neuro: alet : +++Pierce Chávez MD Mar 26, 2020 07:21
--- NOTE | 2020-03-26 07:35 | 48 Hour Post Anesthesia Eval ---
Post Anesthesia Evaluation Procedure: Turp Date of Evaluation: Mar 26, 2020 Time of Evaluation: 07:35 Blood Pressure Systolic: 144 0: 57 Pulse Rate: 70 Respiratory Rate: 14 O2 Sat by Pulse Oximetry: 98 Airway: patent Nausea: No Vomiting: No Cardiopulmonary Status: stable at this time Follow-up Care/Observations: na Post-Anesthesia Complications: none Kym Mehta CRNA Mar 26, 2020 07:35
[2020-03-26 08:00] VITALS: BP 144/70
--- NOTE | 2020-03-26 08:24 | Infectious Diseases Prog Note ---
Assessment/Plan 84yo M with bladder cancer who p/w chest pain, found to have elevated troponin and leukocytosis. Afebrile Sepsis Leukocytosis, overall improved but remains elevated - no abscess on CT; most likely reactive 2/2 tumor burden and bleeding L hydronephrosis, stent in place 03/14 CT abd/p: Mass within the bladder increased in size since previous examination. Presumably this represents bladder neoplasm. Air is also noted within the bladder and the possibility of bladder infection or internal fistula to the bladder should be considered. Left hydronephrosis and with air in the left renal collecting system. There is a left ureteral stent. The air likely is coming from the bladder but the possibility of infection again is not excluded. Atherosclerotic change. Degenerative change in the spine.Cholelithiasis. Bilateral pleural effusions, right greater than left.Subcutaneous edema consistent with mild anasarca. 03/17 BCx NTD 03/18 UCx NTD 03/20 Renal US w/ persistent L hydro UTI/pyelonephritis, UA with tnct WBC, UCx >100k ESBL E.coli on 03/10; SP tx Rapid COVID neg x1 03/13 CXR: Some crowding of markings remain inthe lung bases likely related to a limited inspiration and low lung volumes. No new alveolar process. R/o bacteremia 03/11 BCx NTD 03/10 BCx NTD NSTEMI w/ elevated troponin, can also be a cause of reactive leukocytosis Bladder cancer 03/23 SP Cystoscopy with transurethral resection of bladder tumor and extensive fulguration of bladder tumor, removal and exchange of left ureteral stent. Hematuria On CBI per Urology Plan: Cont to monitor off abx Leukocytosis persistent despite abx, and pt has remained AF and HDS, thus leukocytosis more likely 2/2 bladder CA and bleeding than due to infection Trend WBC daily 03/23 SP Zosyn #5 03/21 SP vanco #2 03/18 SP latoya #7 for ESBL UTI/pyelo 03/12 SP vanco #2, cefepime #2 Trend resp status Trend leukocytosis daily Monitor CBC, CMP D/w RN Thank you for this consult. [facility] will continue to follow. Subjective Allergies: Coded Allergies: No Known Allergies (Unverified , 04/09/16) AF NAD WBC stable at 23 No complaints Objective Last 24 Hour Vital Signs Date Time Temp Pulse Resp B/P (MAP) Pulse Ox O2 Delivery O2 Flow Rate FiO2 03/26/20 07:35 70 14 98 03/26/20 04:00 98.0 68 20 144/71 (95) 97 03/25/20 23:59 98.7 70 20 139/72 (94) 96 03/25/20 20:18 Nasal Cannula 2.0 03/25/20 20:06 98.2 66 20 146/64 (91) 98 03/25/20 19:18 79 16 97 Nasal Cannula 2.0 28 03/25/20 17:44 65 130/62 03/25/20 16:00 97.6 65 18 130/62 (84) 98 03/25/20 11:50 97.3 63 16 132/58 (82) 93 03/25/20 09:00 Nasal Cannula 2.0 Height (Feet): 5 Height (Inches): 7.00 Weight (Pounds): 185 Gen: Older man, laying in bed, NAD CV: RRR Pulm: CTAB anteriorly Abd; Soft, NTND Neuro: Awake, interactive Lines: Dark pink tinged urine in hernandez bag Laboratory Tests Test 03/25/20 11:21 03/25/20 16:49 03/25/20 20:26 03/26/20 05:08 POC Whole Blood Glucose 126 MG/DL (74-106) H 129 MG/DL (74-106) H 116 MG/DL (74-106) H 95 MG/DL (74-106) Test 03/26/20 05:20 White Blood Count 23.0 K/UL (4.8-10.8) *H Red Blood Count 3.45 M/UL (4.70-6.10) L Hemoglobin 9.1 G/DL (14.2-18.0) L Hematocrit 28.2 % (42.0-52.0) L Mean Corpuscular Volume 82 FL (80-99) Mean Corpuscular Hemoglobin 26.4 PG (27.0-31.0) L Mean Corpuscular Hemoglobin Concent 32.3 G/DL (32.0-36.0) Red Cell Distribution Width 16.3 % (11.6-14.8) H Platelet Count 229 K/UL (150-450) Mean Platelet Volume 5.6 FL (6.5-10.1) L Neutrophils (%) (Auto) % (45.0-75.0) Lymphocytes (%) (Auto) % (20.0-45.0) Monocytes (%) (Auto) % (1.0-10.0) Eosinophils (%) (Auto) % (0.0-3.0) Basophils (%) (Auto) % (0.0-2.0) Differential Total Cells Counted 100 Neutrophils % (Manual) 80 % (45-75) H Lymphocytes % (Manual) 12 % (20-45) L Monocytes % (Manual) 6 % (1-10) Eosinophils % (Manual) 1 % (0-3) Basophils % (Manual) 1 % (0-2) Band Neutrophils 0 % (0-8) Platelet Estimate Adequate Platelet Morphology Normal Hypochromasia 2+ Anisocytosis 1+ Sodium Level 141 MMOL/L (136-145) Potassium Level 3.5 MMOL/L (3.5-5.1) Chloride Level 107 MMOL/L (98-107) Carbon Dioxide Level 24 MMOL/L (21-32) Anion Gap 10 mmol/L (5-15) Blood Urea Nitrogen 6 mg/dL (7-18) L Creatinine 0.9 MG/DL (0.55-1.30) Estimat Glomerular Filtration Rate > 60 mL/min (>60) Glucose Level 91 MG/DL (74-106) Calcium Level 7.8 MG/DL (8.5-10.1) L Current Medications Medications (Trade) Dose Ordered Sig/Levi Route PRN Reason Start Time Stop Time Status Last Admin Dose Admin Acetaminophen (Tylenol) 650 mg Q4H PRN ORAL fever (T>100.5F) 03/18/20 16:45 04/09/20 04:44 Atorvastatin Calcium (Lipitor) 20 mg BEDTIME ORAL 03/18/20 21:00 06/09/20 20:59 03/25/20 20:40 Dextrose (Dextrose 50%) 25 ml Q30M PRN IV Hypoglycemia 03/18/20 16:30 06/11/20 04:59 03/23/20 12:52 Dextrose (Dextrose 50%) 50 ml Q30M PRN IV Hypoglycemia 03/18/20 16:30 06/08/20 14:29 Dextrose/Sodium Chloride 1,000 ml @ 75 mls/hr [id number] IV 03/23/20 14:00 04/22/20 13:59 03/26/20 05:31 Finasteride (Proscar) 5 mg DAILY ORAL 03/19/20 09:00 06/09/20 08:59 03/25/20 08:12 Insulin Aspart (NovoLOG) No Dose BEFORE MEALS AND HS SUBQ 03/18/20 16:30 06/15/20 06:29 03/24/20 06:00 Lidocaine HCl (Xylocaine Jelly 2%) 1 applic DAILYPRN PRN TOPIC for pain in penile region 03/18/20 16:30 06/16/20 16:29 Metoprolol Tartrate (Lopressor) 12.5 mg BID ORAL 03/18/20 18:00 06/08/20 21:59 03/25/20 17:44 Nateglinide (Starlix) 120 mg DAILY ORAL 03/19/20 09:00 04/10/20 08:59 03/25/20 08:12 Nitroglycerin (Ntg) 0.4 mg Q5M PRN SL Prn Chest Pain 03/18/20 16:30 04/09/20 14:29 Ondansetron HCl (Zofran) 4 mg Q6H PRN IVP Nausea & Vomiting 03/18/20 16:45 04/09/20 04:44 Polyethylene Glycol (Miralax) 17 gm DAILYPRN PRN ORAL Constipation 03/18/20 16:31 04/17/20 16:30 Tamsulosin HCl (Flomax) 0.4 mg BEDTIME ORAL 03/18/20 21:00 04/09/20 20:59 03/25/20 20:40 Carlie Callaway M.D. Mar 26, 2020 08:24
--- NOTE | 2020-03-26 08:56 | Urology Progress Note ---
Assessment/Plan Status: stable, progressing Assessment/Plan: 1. Gross hematuria. 2. Bladder cancer history with enlarging bladder mass. 3. Left-sided hydro, which is chronic. 4. BPH history. 5. Urinary retention. 6. UTI. 7. Proteinuria. 8. Neurogenic bladder. 9. POD # 3, TURBT, fulguration, exchange of left ureteral stent maintain hernandez, 3-way replaced 03/23 CBI, titrate rate to keep clear hernandez hand irrigated and do PRN occasional small clots noted s/p abx, per ID monitor h/h, wbc blood transfusion PRN off ASA flomax and proscar med/onc f/u pt with extensive tumor involvement of bladder with diffuse bleeding/oozing probably not able to control with cysto as above add amicar? may need embolization of vesicular branches of the internal iliac? family has to decide if feasible to do more intervention, have decided hospice son told me "let nature take its course" d/w nursing staff d/w primary service d/w pt's son fully Subjective Allergies: Coded Allergies: No Known Allergies (Unverified , 04/09/16) Subjective all noted, comfortable CBI running DC planning Objective Last 24 Hour Vital Signs Date Time Temp Pulse Resp B/P (MAP) Pulse Ox O2 Delivery O2 Flow Rate FiO2 03/26/20 07:35 70 14 98 03/26/20 04:00 98.0 68 20 144/71 (95) 97 03/25/20 23:59 98.7 70 20 139/72 (94) 96 03/25/20 20:18 Nasal Cannula 2.0 03/25/20 20:06 98.2 66 20 146/64 (91) 98 03/25/20 19:18 79 16 97 Nasal Cannula 2.0 28 03/25/20 17:44 65 130/62 03/25/20 16:00 97.6 65 18 130/62 (84) 98 03/25/20 11:50 97.3 63 16 132/58 (82) 93 03/25/20 09:00 Nasal Cannula 2.0 Intake and Output 03/25/20 03/26/20 19:00 07:00 Intake Total 1785 ml 1040 ml Output Total 1000 ml 900 ml Balance 785 ml 140 ml Intake Oral 960 ml 140 ml IV Total 825 ml 900 ml Output Urine Total 1000 ml 900 ml Microbiology Date/Time Source Procedure Growth Status 03/17/20 19:00 Blood Blood Culture - Final NO GROWTH AFTER 5 DAYS Complete 03/12/20 06:05 Nasal Nares MRSA Culture - Final NO METHICILLIN RESISTANT STAPH AUREUS... Complete 03/18/20 09:15 Indwelling Cath Urine Culture - Final NO GROWTH AFTER 48 HOURS Complete 03/12/20 04:00 Rectum VRE Culture - Final Enterococcus Faecalis - Vre Complete Current Medications Medications (Trade) Dose Ordered Sig/Levi Route PRN Reason Start Time Stop Time Status Last Admin Dose Admin Acetaminophen (Tylenol) 650 mg Q4H PRN ORAL fever (T>100.5F) 03/18/20 16:45 04/09/20 04:44 Atorvastatin Calcium (Lipitor) 20 mg BEDTIME ORAL 03/18/20 21:00 06/09/20 20:59 03/25/20 20:40 Dextrose (Dextrose 50%) 25 ml Q30M PRN IV Hypoglycemia 03/18/20 16:30 06/11/20 04:59 03/23/20 12:52 Dextrose (Dextrose 50%) 50 ml Q30M PRN IV Hypoglycemia 03/18/20 16:30 06/08/20 14:29 Dextrose/Sodium Chloride 1,000 ml @ 75 mls/hr [id number] IV 03/23/20 14:00 04/22/20 13:59 03/26/20 05:31 Finasteride (Proscar) 5 mg DAILY ORAL 03/19/20 09:00 06/09/20 08:59 03/25/20 08:12 Insulin Aspart (NovoLOG) No Dose BEFORE MEALS AND HS SUBQ 03/18/20 16:30 06/15/20 06:29 03/24/20 06:00 Lidocaine HCl (Xylocaine Jelly 2%) 1 applic DAILYPRN PRN TOPIC for pain in penile region 03/18/20 16:30 06/16/20 16:29 Metoprolol Tartrate (Lopressor) 12.5 mg BID ORAL 03/18/20 18:00 06/08/20 21:59 03/25/20 17:44 Nateglinide (Starlix) 120 mg DAILY ORAL 03/19/20 09:00 04/10/20 08:59 03/25/20 08:12 Nitroglycerin (Ntg) 0.4 mg Q5M PRN SL Prn Chest Pain 03/18/20 16:30 04/09/20 14:29 Ondansetron HCl (Zofran) 4 mg Q6H PRN IVP Nausea & Vomiting 03/18/20 16:45 04/09/20 04:44 Polyethylene Glycol (Miralax) 17 gm DAILYPRN PRN ORAL Constipation 03/18/20 16:31 04/17/20 16:30 Tamsulosin HCl (Flomax) 0.4 mg BEDTIME ORAL 03/18/20 21:00 04/09/20 20:59 03/25/20 20:40 Laboratory Tests 03/25/20 11:21: POC Whole Blood Glucose 126H 03/25/20 16:49: POC Whole Blood Glucose 129H 03/25/20 20:26: POC Whole Blood Glucose 116H 03/26/20 05:08: POC Whole Blood Glucose 95 03/26/20 05:20: White Blood Count 23.0*H, Red Blood Count 3.45L, Hemoglobin 9.1L, Hematocrit 28.2L, Mean Corpuscular Volume 82, Mean Corpuscular Hemoglobin 26.4L, Mean Corpuscular Hemoglobin Concent 32.3, Red Cell Distribution Width 16.3H, Platelet Count 229, Mean Platelet Volume 5.6L, Neutrophils (%) (Auto) , Lymphocytes (%) (Auto) , Monocytes (%) (Auto) , Eosinophils (%) (Auto) , Basophils (%) (Auto) , Differential Total Cells Counted 100, Neutrophils % ( Manual) 80H, Lymphocytes % (Manual) 12L, Monocytes % (Manual) 6, Eosinophils % ( Manual) 1, Basophils % (Manual) 1, Band Neutrophils 0, Platelet Estimate Adequate, Platelet Morphology Normal, Hypochromasia 2+, Anisocytosis 1+, Sodium Level 141, Potassium Level 3.5, Chloride Level 107, Carbon Dioxide Level 24, Anion Gap 10, Blood Urea Nitrogen 6L, Creatinine 0.9, Estimat Glomerular Filtration Rate > 60, Glucose Level 91, Calcium Level 7.8L Height (Feet): 5 Height (Inches): 7.00 Weight (Pounds): 185 Objective exam stable hernandez indwelling, CBI mild-moderate rate urine remains blood-tinged renal u/s (03/20) noted Macho Allen MD Mar 26, 2020 08:56
[2020-03-26] MEDS: Metoprolol Tartrate 12.5mg TAB ORAL SCH (09:02)
[2020-03-26 12:00] VITALS: BP 134/62
--- NOTE | 2020-03-26 12:38 | Pulmonology Progress Note ---
Subjective ROS Limited/Unobtainable: Yes Interval Events: c/o dry sking Constitutional: Reports: no symptoms Allergies: Coded Allergies: No Known Allergies (Unverified , 04/09/16) Objective Last 24 Hour Vital Signs Date Time Temp Pulse Resp B/P (MAP) Pulse Ox O2 Delivery O2 Flow Rate FiO2 03/26/20 09:02 75 144/70 03/26/20 09:00 Nasal Cannula 2.0 03/26/20 08:00 97.4 75 18 144/70 (94) 98 03/26/20 07:35 70 14 98 03/26/20 04:00 98.0 68 20 144/71 (95) 97 03/25/20 23:59 98.7 70 20 139/72 (94) 96 03/25/20 20:18 Nasal Cannula 2.0 03/25/20 20:06 98.2 66 20 146/64 (91) 98 03/25/20 19:18 79 16 97 Nasal Cannula 2.0 28 03/25/20 17:44 65 130/62 03/25/20 16:00 97.6 65 18 130/62 (84) 98 Intake and Output 03/25/20 03/26/20 19:00 07:00 Intake Total 1785 ml 1040 ml Output Total 1000 ml 900 ml Balance 785 ml 140 ml Intake Oral 960 ml 140 ml IV Total 825 ml 900 ml Output Urine Total 1000 ml 900 ml General Appearance: no acute distress, other - elderly chronically ill looking AA male HEENT: normocephalic, atraumatic, anicteric Respiratory: chest wall non-tender, lungs clear, normal breath sounds, no respiratory distress Cardiovascular: normal peripheral pulses, normal rate Abdomen: normal bowel sounds, soft, non tender Genitourinary: other - Robertson with CBI, urine light cranberry color, no clots Extremities: pedal pulses normal Skin: no rash 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, abnormal gait, alert, responsive Lymphatic: no neck adenopathy Laboratory Tests 03/25/20 16:49: POC Whole Blood Glucose 129H 03/25/20 20:26: POC Whole Blood Glucose 116H 03/26/20 05:08: POC Whole Blood Glucose 95 03/26/20 05:20: White Blood Count 23.0*H, Red Blood Count 3.45L, Hemoglobin 9.1L, Hematocrit 28.2L, Mean Corpuscular Volume 82, Mean Corpuscular Hemoglobin 26.4L, Mean Corpuscular Hemoglobin Concent 32.3, Red Cell Distribution Width 16.3H, Platelet Count 229, Mean Platelet Volume 5.6L, Neutrophils (%) (Auto) , Lymphocytes (%) (Auto) , Monocytes (%) (Auto) , Eosinophils (%) (Auto) , Basophils (%) (Auto) , Differential Total Cells Counted 100, Neutrophils % ( Manual) 80H, Lymphocytes % (Manual) 12L, Monocytes % (Manual) 6, Eosinophils % ( Manual) 1, Basophils % (Manual) 1, Band Neutrophils 0, Platelet Estimate Adequate, Platelet Morphology Normal, Hypochromasia 2+, Anisocytosis 1+, Sodium Level 141, Potassium Level 3.5, Chloride Level 107, Carbon Dioxide Level 24, Anion Gap 10, Blood Urea Nitrogen 6L, Creatinine 0.9, Estimat Glomerular Filtration Rate > 60, Glucose Level 91, Calcium Level 7.8L 03/26/20 11:14: POC Whole Blood Glucose [Pending] Current Medications Medications (Trade) Dose Ordered Sig/Levi Route PRN Reason Start Time Stop Time Status Last Admin Dose Admin Acetaminophen (Tylenol) 650 mg Q4H PRN ORAL fever (T>100.5F) 03/18/20 16:45 04/09/20 04:44 Atorvastatin Calcium (Lipitor) 20 mg BEDTIME ORAL 03/18/20 21:00 06/09/20 20:59 03/25/20 20:40 Dextrose (Dextrose 50%) 25 ml Q30M PRN IV Hypoglycemia 03/18/20 16:30 06/11/20 04:59 03/23/20 12:52 Dextrose (Dextrose 50%) 50 ml Q30M PRN IV Hypoglycemia 03/18/20 16:30 06/08/20 14:29 Dextrose/Sodium Chloride 1,000 ml @ 75 mls/hr [id number] IV 03/23/20 14:00 04/22/20 13:59 03/26/20 05:31 Finasteride (Proscar) 5 mg DAILY ORAL 03/19/20 09:00 06/09/20 08:59 03/26/20 09:02 Insulin Aspart (NovoLOG) No Dose BEFORE MEALS AND HS SUBQ 03/18/20 16:30 11/6/20 06:29 03/26/20 12:16 Lidocaine HCl (Xylocaine Jelly 2%) 1 applic DAILYPRN PRN TOPIC for pain in penile region 03/18/20 16:30 06/16/20 16:29 Metoprolol Tartrate (Lopressor) 12.5 mg BID ORAL 03/18/20 18:00 06/08/20 21:59 03/26/20 09:02 Nateglinide (Starlix) 120 mg DAILY ORAL 03/19/20 09:00 04/10/20 08:59 03/26/20 09:02 Nitroglycerin (Ntg) 0.4 mg Q5M PRN SL Prn Chest Pain 03/18/20 16:30 04/09/20 14:29 Ondansetron HCl (Zofran) 4 mg Q6H PRN IVP Nausea & Vomiting 03/18/20 16:45 04/09/20 04:44 Polyethylene Glycol (Miralax) 17 gm DAILYPRN PRN ORAL Constipation 03/18/20 16:31 04/17/20 16:30 Tamsulosin HCl (Flomax) 0.4 mg BEDTIME ORAL 03/18/20 21:00 04/09/20 20:59 03/25/20 20:40 Assessment/Plan Problems: (1) Sepsis (2) Urethral fistula (3) UTI (urinary tract infection) (4) MDRO (multiple drug resistant organisms) resistance (5) NSTEMI (non-ST elevated myocardial infarction) (6) Bladder cancer (7) Hematuria (8) Anemia (9) Diabetes mellitus (10) HTN (hypertension) (11) Alzheimer's dementia (12) Chronic cerebrovascular accident (CVA) Assessment/Plan wbc still high, getting higher again much less hematuria, urine is clearer continue teli monitoring On Vanco, Meropenem anemia w/u miller culture, MDR ecoli in urine sliding scale symptomatic treatment Og Hinkle MD Mar 26, 2020 12:38
--- NOTE | 2020-03-26 12:46 | NUR ---
RD ASSESSMENT & RECOMMENDATIONS SEE CARE ACTIVITY FOR COMPLETE ASSESSMENT DAILY ESTIMATED NEEDS: Needs based on DM, ca 70.2g 25-35 kcals/kg 0154-8203 total kcals 1-2 g protein/kg 70-140 g total protein 20-30ml/kcal mL/kg 9434-0562 total fluid mLs NUTRITION DIAGNOSIS: * Swallowing difficulty R/T dysphagia as evidenced by h/o CVA, s/p [employer] eval, on [facility] soft ground texture w/ NTL , variable po intake. CURRENT DIET:CCHO MED, ms ground w/ NTL PO DIET RECOMMENDATIONS: CCHO MED / texture per [employer] [facility] ADDITIONAL RECOMMENDATIONS: 1) Calibrated bedscale wt for accurate CBW EMR wt: 185# vs Bed wt: 191# vs initial adm bedscale: 154.4# 2) Check lytes daily, replete as needed 3) Glucerna 1 tetra robinson TID w/ variable PO intake 4) + Snacks / encourage HS snack to prevent AM hypoglycemia . .
--- NOTE | 2020-03-26 14:08 | NUR ---
CASE MANAGEMENT: DCP UPON DISCHARGE PATIENT WILL RETURN TO [facility] RM[id number] [facility] GABRIEL / [phone] CALLED. LEFT MESSAGE TRANSPORTATION VIA [facility] [id number] 16:15
[2020-03-26 16:00] VITALS: BP 126/58
--- NOTE | 2020-03-26 17:06 | NUR ---
NURSE NOTES: left messageto Ness Boyd and son Jamir Boyd regarding patient being discharged to [facility] with [facility].
--- NOTE | 2020-03-26 17:43 | NUR ---
NURSE NOTES: Patient is being discharged to [facility], with [facility]. Patient in stable condition and VS, no complaint of pain or discomfort. IV access is taken off, no bleeding after site compression. Patient will go with 3 way Robertson catheter as per dr. Allen order, with bag, urine draining per gravity. Patient was d'cd CBI as facility pt is going cannot perform CBI, according to facility's nurse supervisor laboratory Kasandra. Relayed the info to dr. Allen, previously. Given report to DONELL Lisa from [facility]. Patient leaving with [facility]. Report given to Giorgi Tate EMT.
[2020-03-26 17:45] VITALS: BP 129/56
--- NOTE | 2020-03-26 18:18 | Internal Med Progress Note ---
Subjective Date of Service: Mar 26, 2020 Physician Name BrittaniJean-Claude Attending Physician Jaziel Lowe MD Current Medications Medications (Trade) Dose Ordered Sig/Levi Route PRN Reason Start Time Stop Time Status Last Admin Dose Admin Acetaminophen (Tylenol) 650 mg Q4H PRN ORAL fever (T>100.5F) 03/18/20 16:45 04/09/20 04:44 Atorvastatin Calcium (Lipitor) 20 mg BEDTIME ORAL 03/18/20 21:00 06/09/20 20:59 03/25/20 20:40 Dextrose (Dextrose 50%) 25 ml Q30M PRN IV Hypoglycemia 03/18/20 16:30 06/11/20 04:59 03/23/20 12:52 Dextrose (Dextrose 50%) 50 ml Q30M PRN IV Hypoglycemia 03/18/20 16:30 06/08/20 14:29 Dextrose/Sodium Chloride 1,000 ml @ 75 mls/hr [id number] IV 03/23/20 14:00 04/22/20 13:59 03/26/20 05:31 Finasteride (Proscar) 5 mg DAILY ORAL 03/19/20 09:00 06/09/20 08:59 03/26/20 09:02 Insulin Aspart (NovoLOG) No Dose BEFORE MEALS AND HS SUBQ 03/18/20 16:30 06/15/20 06:29 03/26/20 12:16 Lidocaine HCl (Xylocaine Jelly 2%) 1 applic DAILYPRN PRN TOPIC for pain in penile region 03/18/20 16:30 06/16/20 16:29 Metoprolol Tartrate (Lopressor) 12.5 mg BID ORAL 03/18/20 18:00 06/08/20 21:59 03/26/20 09:02 Nateglinide (Starlix) 120 mg DAILY ORAL 03/19/20 09:00 04/10/20 08:59 03/26/20 09:02 Nitroglycerin (Ntg) 0.4 mg Q5M PRN SL Prn Chest Pain 03/18/20 16:30 04/09/20 14:29 Ondansetron HCl (Zofran) 4 mg Q6H PRN IVP Nausea & Vomiting 03/18/20 16:45 04/09/20 04:44 Polyethylene Glycol (Miralax) 17 gm DAILYPRN PRN ORAL Constipation 03/18/20 16:31 04/17/20 16:30 Tamsulosin HCl (Flomax) 0.4 mg BEDTIME ORAL 03/18/20 21:00 04/09/20 20:59 03/25/20 20:40 Allergies: Coded Allergies: No Known Allergies (Unverified , 04/09/16) ROS Limited/Unobtainable: No Constitutional: Reports: no symptoms HEENT: Reports: no symptoms Cardiovascular: Reports: no symptoms Respiratory: Reports: no symptoms Gastrointestinal/Abdominal: Reports: no symptoms Genitourinary: Reports: no symptoms 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: Reports: no symptoms Subjective 84 YO M with a history of bladder cancer admitted with chest pain. Now severe anemia and hematuria. Cover for Int Med-DR Lowe. Objective Last Vital Signs Date Time Temp Pulse Resp B/P (MAP) Pulse Ox O2 Delivery O2 Flow Rate FiO2 03/26/20 17:45 60 129/56 (80) 98 03/26/20 16:00 98.4 20 03/26/20 09:00 Nasal Cannula 2.0 03/25/20 19:18 28 Laboratory Tests Test 03/25/20 20:26 03/26/20 05:08 03/26/20 05:20 03/26/20 11:14 POC Whole Blood Glucose 116 MG/DL (74-106) H 95 MG/DL (74-106) Pending White Blood Count 23.0 K/UL (4.8-10.8) *H Red Blood Count 3.45 M/UL (4.70-6.10) L Hemoglobin 9.1 G/DL (14.2-18.0) L Hematocrit 28.2 % (42.0-52.0) L Mean Corpuscular Volume 82 FL (80-99) Mean Corpuscular Hemoglobin 26.4 PG (27.0-31.0) L Mean Corpuscular Hemoglobin Concent 32.3 G/DL (32.0-36.0) Red Cell Distribution Width 16.3 % (11.6-14.8) H Platelet Count 229 K/UL (150-450) Mean Platelet Volume 5.6 FL (6.5-10.1) L Neutrophils (%) (Auto) % (45.0-75.0) Lymphocytes (%) (Auto) % (20.0-45.0) Monocytes (%) (Auto) % (1.0-10.0) Eosinophils (%) (Auto) % (0.0-3.0) Basophils (%) (Auto) % (0.0-2.0) Differential Total Cells Counted 100 Neutrophils % (Manual) 80 % (45-75) H Lymphocytes % (Manual) 12 % (20-45) L Monocytes % (Manual) 6 % (1-10) Eosinophils % (Manual) 1 % (0-3) Basophils % (Manual) 1 % (0-2) Band Neutrophils 0 % (0-8) Platelet Estimate Adequate Platelet Morphology Normal Hypochromasia 2+ Anisocytosis 1+ Sodium Level 141 MMOL/L (136-145) Potassium Level 3.5 MMOL/L (3.5-5.1) Chloride Level 107 MMOL/L (98-107) Carbon Dioxide Level 24 MMOL/L (21-32) Anion Gap 10 mmol/L (5-15) Blood Urea Nitrogen 6 mg/dL (7-18) L Creatinine 0.9 MG/DL (0.55-1.30) Estimat Glomerular Filtration Rate > 60 mL/min (>60) Glucose Level 91 MG/DL (74-106) Calcium Level 7.8 MG/DL (8.5-10.1) L Test 03/26/20 16:41 03/26/20 16:44 POC Whole Blood Glucose 73 MG/DL (74-106) L 72 MG/DL (74-106) L Intake and Output 03/25/20 03/26/20 19:00 07:00 Intake Total 1785 ml 1040 ml Output Total 1000 ml 900 ml Balance 785 ml 140 ml Intake Oral 960 ml 140 ml IV Total 825 ml 900 ml Output Urine Total 1000 ml 900 ml Objective PHYSICAL EXAMINATION: GENERAL: The patient is a well-developed and well-nourished male, in no apparent distress. HEENT: Eyes, pupils are equal and responsive to light and accommodation. Extraocular movements are intact. NECK: Supple without lymphadenopathy. CHEST: Lungs are clear to auscultation bilaterally without wheezes or rales. CARDIOVASCULAR: Regular rhythm and rate. S1, S2 are normal without murmurs, rubs, or gallops. ABDOMEN: Soft, nontender, and nondistended. Positive bowel sounds. No evidence of hepatosplenomegaly. Currently, no rebound or guarding noted. EXTREMITIES: Negative for clubbing, cyanosis, or edema. RECTAL/GENITAL: Not performed. NEUROLOGIC: Cranial nerves II through XII are grossly intact without focal deficits. Motor strength is 5/5 bilaterally. Deep tendon reflexes are 2+ plantar. Assessment/Plan Assessment/Plan ASSESSMENT: This is an 84-year-old male. 1. Chest pain. 2. Elevated troponin level. 3. Bladder cancer. 4. Gastritis. 5. Hypertension. 6. Diabetes type 2. 7. Atrioventricular conduction defect. 8. Alzheimer's dementia. 9. Cerebrovascular disease. 10. Right hemiplegia. 11. Pacemaker in situ. 12. Urinary tract infection=ESBL E. Coli 13. Persistant leukocytosis due to UTI-resolving 14. Hematuria 15. severe anemia TREATMENT: 1. Chest pain/elevated troponin. A Cardiology consultation has been obtained with Dr. Nj Valenzuela. We will follow recommendations of Cardiology. 2. Bladder cancer. CT=bladder mass increased in size from prior. Urology= Dr. Macho Allen. The patient is status post transurethral resection of bladder tumor x2. We will follow recommendations of Urology. 3. Gastritis. Continue Protonix as above. 4. Hypertension. 5. Diabetes type 2. A NovoLog sliding scale has been instituted. 6. Atrioventricular conduction defect. The patient is status post pacemaker implantation. 7. Alzheimer's dementia. 8. Cerebrovascular disease, status post cerebrovascular accident. 9. Right hemiplegia. 10. ABX=S/P meropenem; continue zosyn and vanco per ID=Dr Darby 11. Bladder irrigation per urology 12. S/P trransfusion 5 units PRBC 13. S/P cystoscopy and transurethral resection of bladder tumor with left stent replacement on Thu03/23/20 by urology=Dr Allen 14. Discharge planning: [facility] Jean-Claude Peter MD Mar 26, 2020 18:18
--- NOTE | 2020-03-27 11:15 | Discharge Summary ---
Discharge Summary Discharge Summary _ DATE OF ADMISSION: 03/10/2020 DATE OF DISCHARGE: 03/26/2020 DISCHARGED BY: Dr. Lowe REASON FOR ADMISSION: 84 years old male with past medical history of bladder cancer, chronic hydronephrosis, diabetes mellitus, history of CVA, hypertension, pacemaker due to sick sinus syndrome, dementia, presented to emergency department with chief complaint of right-sided chest pain. Patient received nitroglycerin at the facility without much improvement. Initial evaluation in emergency department revealed hemoglobin 6.8 ,hematocrit 22.7. WBC 22.8. BUN 29, creatinine 1.3. Glucose 269. Troponin 0.51. Pro BNP 4397. EKG revealed sinus rhythm with ST depression in anterior leads Lactic acid 2.3. Urinalysis revealed gross hematuria and evidence of urinary tract infection . Chest x-ray revealed no acute cardiopulmonary pathology Patient was placed on quality assurance monitor body. Patient was pancultured, received IV fluids , broad-spectrum antibiotic . Son gave consent to blood transfusion : patient was typed and crossed. Patient was also heparinized and admitted for further management. CONSULTANTS: bus aide Dr. Valenzuela pulmonary/critical care Dr. Hinkle ID specialist Dr. Callaway urologist Dr. Allen hematology [facility] COURSE: Patient admitted to direct observational unit. Patient was significantly anemic unable to start anticoagulation. Troponin was initially trended p with with peak troponin of 9.889 , then started to trend down. Beta blockade and statin provided. Unable to start aspirin due to severe anemia and bleeding. Echocardiogram demonstrated normal left ventricular chamber size, systolic function and wall motion to the extent visualized with left ventricular ejection fraction estimated to be 55%. Patient received transfusion with total of 5 units of packed red blood cells while in the hospital. Prior to discharge hemoglobin 9.1 ,hematocrit 28.2 Supplemental oxygen was on board as needed to keep pulse oximetry above 92%. Pulse oximetry prior to discharge stable on 2 L of oxygen via nasal cannula. Antibiotic provided as per ID recommendation . Urine culture revealed E. coli ESBL , repeated urine culture was negative. Patient completed course of antibiotics while in the hospital. Leukocytosis overall improved, but remains elevated. No abscess on the CT scan of abdomen and pelvis , most likely leukocyte reactive due to tumor burden and bleeding . P atient remained afebrile. CT of the abdomen and pelvis revealed a mass within the bladder , increased in size since previous examination. Left hydronephrosis. Left ureteral stent. Renal ultrasound revealed mild left hydronephrosis, despite the presence of a nephroureteral stent, Bladder mass, also described on recent CT scan. Robertson catheter. Normal right kidney. Renal parameters remained stable. Patient undergone cystoscopy, TURBT and exchange of ureteral stent on . Patient was on continuous bladder irrigation to keep urine clear and hand irrigation as needed. Flomax and Proscar continued. Urologist closely followed. Blood pressure remained stable with current regimen. Blood sugar was managed with Starlix and sliding scale of insulin as needed. Pain management addressed as needed. Bowel regimen instituted. Supportive care provided. Per urologist patient had extensive tumor involvement of bladder with diffuse bleeding/oozing. Probably not able to control bleeding with cysto . Urologist recommended to consider embolization of vesicular branches of the internal iliac , add Amicar. Prognosis and goals opf care were discussed extensively with family. Family decided on hospice services. Patient clinically stabilized and was ready for [facility] with [facility] services. FINAL DIAGNOSES: Acute [place] Sepsis UTI/pyelo with E. coli ESBL Gross hematuria Anemia of acute blood loss, requiring multiple blood transfusion Bladder CA , extensive stage Status post cystoscopy, TURBT, ureteral stent exchange and removal 03/22 Hypertension Diabetes mellitus History of CVA with right hemiplegia Leukocytosis ( liekly reactive due to tumpr burden and bleeding) Neurogenic bladder Chronic left hydronephrosis Sick sinus syndrome, status post pacemaker Paroxysmal atrial fibrillation DISCHARGE MEDICATIONS: See Medication Reconciliation list. DISCHARGE INSTRUCTIONS: [facility] was [facility] to the [facility] with hospcie services. I have been assigned to dictate discharge summary for this account. Ellen Mei NP Mar 27, 2020 11:15
--- NOTE | 2020-03-27 12:47 | Diagnostic Imaging Report ---
INDICATION: Pain, intraoperative TECHNIQUE: Intraoperative imaging Fluoroscopy time: 37.2 seconds Total dose: [id number] mGym2 Total number of images: 3 COMPARISON: 11/23/2019 FINDINGS: Intraoperative images document a left nephroureteral stent in place, replaced per tech report IMPRESSION: Intraoperative imaging, as described
--- NOTE | 2020-03-30 09:32 | Coder Physician Query ---
Clarification is required for compliance, coding accuracy, and to reflect severity of illness for this patient. Dear Dr. JOHNSON Date:03/29/20 [employer]: Ashu [facility] SEPSIS QUERY - 84yo M with bladder cancer who p/w chest pain, found to have elevated troponin and leukocytosis. Antibiotic provided as per ID recommendation . Urine culture revealed E. coli ESBL , repeated urine culture was negative. Patient completed course of antibiotics while in the hospital. Leukocytosis overall improved, but remains elevated. No abscess on the CT scan of abdomen and pelvis , most likely leukocyte reactive due to tumor burden and bleeding . Patient remained afebrile. Blood cultures negative x5 days FINAL DIAGNOSES: Acute [place] Sepsis UTI/pyelo with E. coli ESBL Anemia of acute blood loss, requiring multiple blood transfusion Bladder CA , extensive stage, Status post cystoscopy, TURBT, ureteral stent exchange and removal 03/22 Leukocytosis ( likely reactive due to tumpr burden and bleeding) A posssible diagnois of SEPSIS was made in the medical record on ER RECORD, PROG NOTES, ID CONSULT, DISCHARGE SUMMARY. Upon review, it is difficult to determine whether this diagnosis has been ruled in, ruled out,or is still being worked up. Please indicate below the status of the SEPSIS diagnosis. [] Treated and resolve [x] Presumed and treated [] Currently under treatment [] Still being worked-up [] Ruled out Present on Admission: [] Yes [] No [] Clinically Undetermined Physician signature Date Please also document in your Progress Notes and/or Discharge Summary and indicate if the condition was present on admission. MTDD
== END 2020-03-26 17:30 | DRG 853 ==
LOC: EDUNIT# 11:58 → EDBD 11:58 → EDBEDREQ 12:24 → EMR 12:25 → 2W 13:00 → EDBEDREQ 13:20 → EDBEDREQSVC 13:20 → EDBEDREQ 13:45 → 2E 03-13 04:16 → 4E 03-18 16:25
PROC: 30233N1 Transfusion of Nonautologous Red Blood Cells into Peripheral Vein, Percutaneous Approach (ICD-10-PCS; 2020-03-10)
PROC: 0TP98DZ Removal of Intraluminal Device from Ureter, Via Natural or Artificial Opening Endoscopic (ICD-10-PCS; principal; 2020-03-23 15:00)
PROC: 0T5B8ZZ Destruction of Bladder, Via Natural or Artificial Opening Endoscopic (ICD-10-PCS; principal; 2020-03-23 15:00)
PROC: 0TBB8ZZ Excision of Bladder, Via Natural or Artificial Opening Endoscopic (ICD-10-PCS; principal; 2020-03-23 15:00)
PROC: 0T778DZ Dilation of Left Ureter with Intraluminal Device, Via Natural or Artificial Opening Endoscopic (ICD-10-PCS; principal; 2020-03-23 15:00)
DX: A41.9 Sepsis, unspecified organism (principal); I21.4 Non-ST elevation (NSTEMI) myocardial infarction; N39.0 Urinary tract infection, site not specified; I51.0 Cardiac septal defect, acquired; N13.30 Unspecified hydronephrosis; I69.351 Hemiplegia and hemiparesis following cerebral infarction affecting right dominant side; D62 Acute posthemorrhagic anemia; Z16.24 Resistance to multiple antibiotics; Z16.12 Extended spectrum beta lactamase (ESBL) resistance; N36.0 Urethral fistula; Z95.0 Presence of cardiac pacemaker; C67.9 Malignant neoplasm of bladder, unspecified; G30.9 Alzheimer's disease, unspecified; F02.80 Dementia in other diseases classified elsewhere, unspecified severity, without behavioral disturbance, psychotic disturbance, mood disturbance, and anxiety; Z79.4 Long term (current) use of insulin; I11.0 Hypertensive heart disease with heart failure; B96.89 Other specified bacterial agents as the cause of diseases classified elsewhere; E11.9 Type 2 diabetes mellitus without complications; K29.70 Gastritis, unspecified, without bleeding; N31.9 Neuromuscular dysfunction of bladder, unspecified; Z20.828 Contact with and (suspected) exposure to other viral communicable diseases; I48.0 Paroxysmal atrial fibrillation; R31.0 Gross hematuria; N40.1 Benign prostatic hyperplasia with lower urinary tract symptoms; R33.8 Other retention of urine; B96.20 Unspecified Escherichia coli [E. coli] as the cause of diseases classified elsewhere
CPT/HCPCS: 36415; 71045; 74177; 74420; 76000; 76770; 80048; 80053; 80061; 81001; 81003; 82248; 82270; 82378; 82550; 82607; 82728; 82746; 82962; 83540; 83550; 83605; 83615; 83690; 83735; 83880; 83935; 84100; 84300; 84439; 84484; 84550; 85007; 85025; 85044; 85060; 85610; 85651; 85730; 86140; 86850; 86900; 86901; 86920; 87040; 87081; 87086; 87181; 89050; 93005; 93306; 94003; 94150; 94640; 94664; 96365; 96375; 99291; J1815; J2370; J2405; J2710; J7030; J7620; U0002